=== PATIENT | female | born 2000 | race Caucasian/White ===

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

== ENCOUNTER 2018-06-13 17:06 | Emergency (ER) | payer OTHER, MEDICAID, SELFPAY ==
[2018-06-13 17:07] VITALS: BP 117/75; PULSE 110; RESP 14; TEMP 36.6; O2SAT 98; BMI 38.4
--- NOTE | 2018-06-13 17:32 | RAD_ITS ---
STUDY: X-RAY CHEST REASON FOR EXAM: Female, 18 years old. Cough TECHNIQUE: 2 Views of the chest were obtained COMPARISON: September 26, 2017 chest radiograph FINDINGS: The lungs are clear and expanded. There is no demonstrated pleural abnormality. Normal size heart. Normal mediastinum and dudley. Normal visualized pulmonary arteries. Normal visualized aortic arch and descending thoracic aorta. Normal visualized thoracic spine. Normal visualized ribs, clavicles, and shoulders. There is no demonstrated abnormality of the visualized soft tissue structures of the upper abdomen. RAD/Chest PA and Lateral IMPRESSION: No acute findings Electronically Signed: Otilio Morris, at 17:58 EST Tel , Service support ,
[2018-06-13] MEDS: Naproxen 500 MG Tablet PO (17:40)
--- NOTE | 2018-06-13 18:23 | ED.DCSUM_ITS ---
- ER Visit Summary Date of Service: 06/13/18 Chief Complaint: Cough, nausea and vomiting, sore throat History of Present Illness: The patient is a 18 F with a 3-day history of congestion to the point where she starts gagging. She states she has cough with clear sputum. She does report some posttussive emesis. She has had little fever but nothing that was measured. Her son and boyfriend have been ill with similar symptoms. Past history is significant for hypothyroidism. She denies possibility of pre gnancy. Physical Examination: Blood pressure is 117/75, temperature 97.8, heart rate 110, respiratory rate 14, pulse ox 98% on room air. Patient sitting upright in bed no acute distress. She is nontoxic appearing. Head and neck examination reveals TMs to be clear bilaterally. She does have a small area of erythema in the right canal consistent with a broken capillary. No sign of infection. Posterior pharynx examination reveals 3+ tonsils with no exudate. Uvula is midline. She has bilateral cervical lymphadenopathy. Heart is regular rate and rhythm. Lung sounds are clear. Abdomen is soft and nontender. Test Results: Two-view chest x-ray shows no acute findings. Rapid strep is negative. Emergency Department Course and Treatment: Patient was given naproxen. On repeat evaluation she does feel improved. Test results were discussed with her. Should be a prescription for naproxen. She may take Afrin or Sudafed in addition if needed. Treatment Plan: [] Disposition: Discharge Impression: Viral URI This note was generated with [employer] dictation software. It may contain incorrect words, spelling, and punctuation that were not noted in review of the chart prior to signing ED Disposition - Plan for ED Patient: Referrals: Damian Jackson MD [Primary Care Provider] -
--- NOTE | 2018-06-13 18:23 | ED.DEP ---
ED Disposition - Plan for ED Patient: Disposition: Home or Assisted Living Instructions: ED URI Viral Prescriptions: Naproxen [Naprosyn] 500 mg PO BID PRN PRN #20 tablet PRN Reason: Pain Referrals: Damian Jackson MD [Primary Care Provider] - 5-7 Days
--- NOTE | 2018-06-13 18:33 | ED.RN ---
DISCHARGE INSTRUCTIONS GIVEN TO AND REVIEWED WITH PATIENT, PATIENT DENIES QUESTIONS OR CONCERNS AND VOICES UNDERSTANDING OF DISCHARGE INSTRUCTIONS. PT AMBULATES OUT OF ROOM WITHOUT DIFFICULTY.
== END 2018-06-13 18:33 | disposition home or self-care (01) ==
PROVIDERS: Emergency Provider Emergency Medicine; Family Provider Family Medicine; PCP Family Medicine
DX: J06.9 Acute upper respiratory infection, unspecified (principal); H92.01 Otalgia, right ear; E03.9 Hypothyroidism, unspecified; Z79.899 Other long term (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 therapy; Z72.0 Tobacco use
CPT/HCPCS: 71046; 87880; 99283

== ENCOUNTER → 2018-07-21 13:51 | Outpatient (CLI) | payer OTHER, MEDICAID, SELFPAY ==
[2018-07-21 19:05] LABS: Chlamydia Trachomatis by PCR Negative (Negative); Neisserai gonorrhoeae by PCR Negative (Negative); Probe Check PASS; Sample Adequacy Control PASS; Specimen Processing Control PASS
== END ==
PROVIDERS: Visit Provider Obstetrics & Gynecology
DX: Z11.3 Encounter for screening for infections with a predominantly sexual mode of transmission (principal)
CPT/HCPCS: 87491; 87591

== ENCOUNTER 2018-08-13 19:53 | Emergency (ER) | payer OTHER, MEDICAID, SELFPAY ==
[2018-08-13 19:55] VITALS: BP 140/98; PULSE 159; PULSE 163; RESP 14; RESP 17; TEMP 36.4; O2SAT 96; BMI 36.7
--- NOTE | 2018-08-13 20:10 | EKG12_ITS ---
Test Reason : TACHYCARDIA Blood Pressure : / mmHG Vent. Rate : 140 BPM Atrial Rate : 140 BPM P-R Int : 124 ms QRS Dur : 074 ms QT Int : 278 ms P-R-T Axes : 034 048 -02 degrees QTc Int : [address] & T wave abnormality, consider inferior ischemia Abnormal ECG Confirmed by DAVIDA TOBIN ([id number]), writer editor STEVAN GIBBS ([id number]) on 08/16/2018 4:44:20 PM Referred By: BRENT Confirmed By:DAVIDA TOBIN
[2018-08-13 20:12] VITALS: BP 118/100; PULSE 149; RESP 18; O2SAT 96
[2018-08-13] MEDS: 0.9% Normal Saline 1,000 ML 1000 ML IV ×2 (20:19→22:54)
[2018-08-13] MEDS: Ondansetron 4 MG/2 ML Vial IV (20:19)
[2018-08-13 20:33] LABS: Absolute Lymphocyte Count 1.56 X10^3/ul (0.83-4.51); Basophil# 0.03 X10^3/uL; Basophil% 0.2 % (0-1); Eosinophil# 0.21 X10^3/uL; Eosinophils% 1.2 % (0-5); Hematocrit 43.9 % (37-47); Hemoglobin 14.2 g/dl (12.0-15.0); Lymphocyte # 1.56 X10^3/ul (4.0); Lymphocyte % 8.9 % (19-41); Mean Corp Hgb Conc 32.3 g/gl (32-36); Mean Corpuscular Hgb 22.7 pg (27.0-32.0); Mean Corpuscular Volume 70.1 fL (81-99); Mean Platelet Vol. 9.3 fl (6.2-12.0); Monocyte# 0.78 X10^3/uL; Monocyte% 4.4 % (0-10); Neutrophil # 14.96 X10^3/uL (2.7-7.7); Neutrophil % 85.1 % (47-70); POSITIVE COUNT NO; POSITIVE DIFFERENTIAL NO; POSITIVE MORPHOLOGY NO; Platelet Count 312 K/mm3 (150-450); RBC Distribution Width CV 15.3 % (11.6-14.6); RBC Distribution Width SD 38.9 fl (35.1-43.9); Red Blood Count 6.26 M/mm3 (4.2-5.4); White Blood Count 17.6 K/mm3 (4.4-11.0)
[2018-08-13 20:59] LABS: ALB/GLOB Ratio 0.9 RATIO (0.9-2.4); AST(SGOT) 27 U/L (15-37); Alanine Aminotransfer ALT/SGPT 30 U/L (13-56); Albumin, Serum 4.3 g/dL (3.2-5.0); Alkaline Phosphatase 107 U/L (45-117); Anion Gap 9 (5-15); BUN 13 mg/dL (7-18); BUN/Creat Ratio 15.3 RATIO (10-20); Calcium,Total 8.9 mg/dL (8.5-10.1); Chloride 108 mmol/L (98-107); Creatinine, Serum 0.85 mg/dL (0.55-1.02); EST Glomerular Filtration Rate 91 mL/min (>60); Est Glom Filt Rate - Afr Amer 110 mL/min (>60); Estimated Creatinine Clearance 87.33 ml/min; Globulin 4.6 g/dL (2.2-4.2); Glucose 93 mg/dL (74-106); Lipase 107 U/L (73-393); Potassium 3.6 mmol/L (3.5-5.1); Protein, Total 8.9 g/dL (6.4-8.2); Sodium Level 140 mmol/L (136-145)
[2018-08-13 21:00] VITALS: BP 123/72; PULSE 116; RESP 28; O2SAT 98
[2018-08-13 21:06] LABS: Bacteria 0 SEEN /hpf (None Seen)
[2018-08-13 21:08] LABS: Pregnancy, Serum, hCG Quali. NEGATIVE Negative (0-9 Nonpreg)
[2018-08-13 21:12] LABS: Color, Urine Yellow (Yellow); Glucose, Dipstick Normal (Normal); Ketone-Dipstick 5 mg/dl (Negative); Leukocyte Esterase-Dipstick 25 /ul (Negative); Nitrite-Dipstick Negative (Negative); Occult Blood-Urine Negative /ul (Negative); Protein-Dipstick 100 mg/dl (Negative); Specific Gravity, Urine 1.015 (1.002-1.030); Urine Clarity Sl. Cloudy (Clear); Urine Urobilinogen 1 mg/dl (Normal)
[2018-08-13 21:18] LABS: Urine Bilirubin Dipstick 3 mg/dL (Negative)
[2018-08-13 21:25] LABS: Mucous, Urine 3+ /hpf (<or=2+); Squamous Epithelial Cells - UA 0-5 SEEN /hpf (5-10)
[2018-08-13 21:26] LABS: White Blood Cells 0-5 SEEN /hpf (0-5)
[2018-08-13 21:27] LABS: Yeast-Urine RARE /hpf (None Seen)
[2018-08-13 21:28] LABS: Red Blood Cells-Urine 0-5 SEEN /hpf (0-5)
--- NOTE | 2018-08-13 21:39 | ED.VISSUMM ---
- ER Visit Summary Date of Service: 08/13/18 Chief Complaint: Nausea and vomiting and diarrhea History of Present Illness: The patient is a 18 F who presents with nausea, vomiting, diarrhea that began today. Patient also admits to diffuse abdominal pain. Patient describes her pain is sharp and cramping. Patient states nothing makes it better or worse. Patient also admits to some paresthesias in her hands. Patient states this comes and goes. Patient denies any hematemesis or coffee-ground emesis. Patient denies any melena or hematochezia. She admits to subjective chills but denies any fevers. Physical Examination: Vital signs are stable except for a tachycardia of 163. Patient is afebrile. Patient is in no acute distress. Oral mucosa is pink and moist. Neck is supple. Trachea is midline. There is no JVD noted. Heart was regular and tachycardic. Lungs are clear and equal bilateral. Abdomen is soft. Bowel sounds are normal. There is mild diffuse tenderness. There is no rebound or guarding noted. Cranial nerves II through XII are intact. There are no focal motor or sensory deficits noted. Test Results: CBC showed a mild leukocytosis of 17.6. Comprehensive metabolic profile and troponin were obtained and were essentially within normal limits. Urinalysis does not show any evidence of urinary tract infection. PA and lateral chest x-ray was obtained. There is no acute cardiopulmonary process noted. Due to the patient's persistent tachycardia and tachypnea, CTA of the chest was obtained. There is no evidence of PE. Emergency Department Course and Treatment: Patient was given IV fluids and Zofran here. Patient's heart rate improved to 116. Patient's heart rate increased to 125. Patient's respiratory rate increased to 28. Patient was given a repeat bolus of normal saline. Patient was given a dose of Phenergan. Patient's heart rate improved to 113 after this. Patient's respiratory rate improved to 14 after this. Patient felt better on reevaluation. Patient was instructed to drink small amounts of fluids more frequently. Patient was given a prescription for Zofran. Patient was instructed to follow-up with her primary care physician in 5-7 days. Patient understood and was agreeable with the plan. All questions were answered. Disposition: Discharge home Impression: 1. Nausea and vomiting 2. Tachycardia This note was generated with [employer] software. It may contain incorrect words, spelling, and punctuation that were not noted in review of the chart prior to signing ED Disposition - Plan for ED Patient: Disposition: Home or Assisted Living Diagnosis: Nausea and vomiting, Tachycardia Instructions: ED Nausea Vomiting Prescriptions: Ondansetron [Zofran Odt] 4 mg PO Q8H PRN PRN #10 tab PRN Reason: Nausea Referrals: Damian Jackson MD [Primary Care Provider] - 5-7 Days
--- NOTE | 2018-08-13 21:43 | ED.DCSUM_ITS ---
- ER Visit Summary Date of Service: 08/13/18 Chief Complaint: Nausea and vomiting and diarrhea History of Present Illness: The patient is a 18 F who presents with nausea, vomiting, diarrhea that began today. Patient also admits to diffuse abdominal pain. Patient describes her pain is sharp and cramping. Patient states nothing makes it better or worse. Patient also admits to some paresthesias in her hands. Patient states this comes and goes. Patient denies any hematemesis or coffee-ground emesis. Patient denies any melena or hematochezia. She admits to subjective chills but denies any fevers. Physical Examination: Vital signs are stable except for a tachycardia of 163. Patient is afebrile. Patient is in no acute distress. Oral mucosa is pink and moist. Neck is supple. Trachea is midline. There is no JVD noted. Heart was regular and tachycardic. Lungs are clear and equal bilateral. Abdomen is soft. Bowel sounds are normal. There is mild diffuse tenderness. There is no rebound or guarding noted. Cranial nerves II through XII are intact. There are no focal motor or sensory deficits noted. Test Results: CBC showed a mild leukocytosis of 17.6. Comprehensive metabolic profile and troponin were obtained and were essentially within normal limits. Urinalysis does not show any evidence of urinary tract infection. PA and lateral chest x-ray was obtained. There is no acute cardiopulmonary process noted. Due to the patient's persistent tachycardia and tachypnea, CTA of the chest was obtained. There is no evidence of PE. Emergency Department Course and Treatment: Patient was given IV fluids and Zofran here. Patient's heart rate improved to 116. Patient's heart rate increased to 125. Patient's respiratory rate increased to 28. Patient was given a repeat bolus of normal saline. Patient was given a dose of Phenergan. Patient's heart rate improved to 113 after this. Patient's respiratory rate improved to 14 after this. Patient felt better on reevaluation. Patient was i nstructed to drink small amounts of fluids more frequently. Patient was given a prescription for Zofran. Patient was instructed to follow-up with her primary care physician in 5-7 days. Patient understood and was agreeable with the plan. All questions were answered. Disposition: Discharge home Impression: 1. Nausea and vomiting 2. Tachycardia This note was generated with Dragon dictation software. It may contain incorrect words, spelling, and punctuation that were not noted in review of the chart prior to signing ED Disposition - Plan for ED Patient: Disposition: Home or Assisted Living Diagnosis: Nausea and vomiting, Tachycardia Instructions: ED Nausea Vomiting Prescriptions: Ondansetron [Zofran Odt] 4 mg PO Q8H PRN PRN #10 tab PRN Reason: Nausea Referrals: Damian aJckson MD [Primary Care Provider] - 5-7 Days
--- NOTE | 2018-08-13 21:55 | RAD_ITS ---
STUDY: X-RAY CHEST REASON FOR EXAM: Female, 18 years old. Chest pain TECHNIQUE: PA and lateral views of the chest. COMPARISON: Prior study of June 13, 2018 FINDINGS: sports physician leads are present. The lungs are clear and expanded. There is no demonstrated pleural abnormality. Normal size heart. Normal mediastinum and dudley. Normal visualized pulmonary arteries. Normal visualized aortic arch and descending thoracic aorta. Normal visualized thoracic spine. Normal visualized ribs, clavicles, and shoulders. There is no demonstrated abnormality of the visualized soft tissue structures of the upper abdomen. RAD/Chest PA and Lateral IMPRESSION: Normal x-ray examination of the chest. Electronically Signed: Salvador Garcia MD at 22:58 EDT , Service support ,
[2018-08-13 22:00] VITALS: BP 119/70; PULSE 125; RESP 28; O2SAT 96
[2018-08-13] MEDS: proMETHazine 25 MG/ML Syringe 6.25 MG IV (22:54)
--- NOTE | 2018-08-13 23:04 | CT_ITS ---
STUDY: CTA CHEST REASON FOR EXAM: Female, 18 years old. Nausea, vomiting, diarrhea today, numbness in hands x2 weeks. RADIATION DOSAGE (If Supplied By Facility): CTDIvol = ( 13.86 ) mGy, DLP = ( 602.31 ) mGycm TECHNIQUE: The examination was performed with the intravenous administration of 100 IV Isovue 370. Post-processing of the angiographic images was performed, with multiplanar reformation and 3D reconstruction. Individualized dose optimization techniques were used for this CT. COMPARISON: Chest x-ray 08/13/2018. CT a chest 04/01/2017 FINDINGS: Normal enhancement of the main pulmonary artery and right and left pulmonary arteries. Normal enhancement of the bilateral peripheral pulmonary arteries. There is no demonstrated pulmonary embolism. Normal thoracic aorta and visualized great vessels. There is no demonstrated aortic dissection. Normal heart and pericardium. Normal mediastinum. There is residual thymic tissue without mass. Normal hilar regions. Normal visualized trachea and bronchi. The lungs are well expanded. Normal pulmonary parenchyma. Normal pleura. Normal chest wall structures. Normal osseous structures. Normal visualized upper abdomen. CT/CTA Chest W/WO Contrast IMPRESSION: Normal CTA chest examination, without a demonstrated pulmonary embolism or arterial dissection. There is no significant interval change. Electronically Signed: Reshma Olea MD at 0:14 EDT , Service support ,
[2018-08-13 23:54] VITALS: BP 116/78; PULSE 113; RESP 14; O2SAT 98
[2018-08-14 00:37] VITALS: BP 123/76; PULSE 143; RESP 16; O2SAT 100
== END 2018-08-14 00:39 | disposition home or self-care (01) ==
PROVIDERS: Emergency Provider Emergency Medicine; Family Provider Family Medicine; PCP Family Medicine
DX: R11.2 Nausea with vomiting, unspecified (principal); R00.0 Tachycardia, unspecified; R51 Headache; M54.9 Dorsalgia, unspecified; R19.7 Diarrhea, unspecified; R10.9 Unspecified abdominal pain; K21.9 Gastro-esophageal reflux disease without esophagitis; E03.9 Hypothyroidism, unspecified; F17.210 Nicotine dependence, cigarettes, uncomplicated
CPT/HCPCS: 71046; 71275; 80053; 81001; 83690; 84484; 84703; 85025; 93005; 96361; 96374; 96375; 99283; J7030; Q9967; A4216; J2405

== ENCOUNTER 2019-11-15 13:20 | Emergency (ER) | payer OTHER, MEDICAID, SELFPAY ==
[2019-11-15 13:23] VITALS: BP 140/87; PULSE 115; RESP 16; TEMP 36.9; O2SAT 96; BMI 38.5
--- NOTE | 2019-11-15 13:23 | RAD_ITS ---
STUDY: X-RAY CHEST REASON FOR EXAM: Female, 19 years old. Pt arrives with neck pain for months and new onset chest pain, sob, dizziness, headache, and weakness since sun day. TECHNIQUE: Single AP portable view of the chest. COMPARISON: Comparison is made with prior study dated August 13, 2018. FINDINGS: The lungs are clear and expanded. There is no demonstrated pleural abnormality. Normal size heart. Normal mediastinum and dudley. Normal visualized pulmonary arteries. Normal visualized aortic arch and descending thoracic aorta. Normal visualized thoracic spine. Normal visualized ribs, clavicles, and shoulders. There is no demonstrated abnormality of the visualized soft tissue structures of the upper abdomen. RAD/Chest 1 View (Portable) IMPRESSION: Normal x-ray examination of the chest. Electronically Signed: Shaun Lenz, at 14:33 EDT , Service support ,
[2019-11-15 16:00] VITALS: O2SAT 96
[2019-11-15 16:08] VITALS: BP 135/85; PULSE 88; RESP 16; TEMP 37.2; O2SAT 98
--- NOTE | 2019-11-15 16:32 | ED.DCSUM_ITS ---
- ER Visit Summary Date of Service: 11/15/19 Chief Complaint: Cough and chills History of Present Illness: The patient is a 19 F with cough and chills that is been getting worse over the past 3 days. Patient states it is gradually gotten worse. Patient states she has some aching in her head and neck. Patient admits to some shortness of breath. Patient states she is coughing up some sputum but does not look at it. Patient admits to some pain in her chest is worse with coughing. Patient also admits to a mild sore throat from coughing. Patient is a smoker. Patient denies any sick contacts. Patient states she does wear her mask at work. Patient states there is also a plexiglass barrier where she works. Patient denies any loss of taste or smell. Physical Examination: Vital signs are stable. Patient is afebrile. Patient is in no acute distress. Oral mucosa is pink and moist. Oropharynx is clear. Neck is supple. Trachea is midline. There is no JVD. Heart was regular rate and rhythm. Lungs are clear and equal bilaterally. Abdomen is soft. Bowel sounds are normal. There is no tenderness. Cranial nerves II through XII are intact. There are no focal motor or sensory deficits noted. Extremities are intact. There is no calf tenderness or edema. Test Results: Chest x-ray was obtained. There is no acute cardiopulmonary process. This was interpreted by the radiologist and myself. Emergency Department Course and Treatment: Patient was advised that this is most likely a viral upper respiratory infection. Patient was given a note for work for today. Patient was instructed to continue wearing her mask and COVID precautions. Patient was instructed to follow-up with her primary care physician in 5 to 7 days. Patient understood and was agreeable with the plan. All questions were answered. Disposition: Discharge home Impression: Upper respiratory infection This note was generated with [employer] dictation software. It may contain incorrect words, spelling, and punctuation that were not noted in review of the chart prior to signing ED Disposition - Plan for ED Patient: Disposition: Home or Assisted Living Diagnosis: Viral upper respiratory tract infection with cough Instructions: ED URI Viral Referrals: Damian Jackson MD [Primary Care Provider] - 5-7 Days
== END 2019-11-15 16:55 | disposition home or self-care (01) ==
PROVIDERS: Emergency Provider Emergency Medicine; PCP Family Medicine
DX: J06.9 Acute upper respiratory infection, unspecified (principal); E66.9 Obesity, unspecified; E03.9 Hypothyroidism, unspecified; Z79.899 Other long term (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 therapy; F17.200 Nicotine dependence, unspecified, uncomplicated
CPT/HCPCS: 71045; 94760; 99283; A4216

== ENCOUNTER 2019-11-26 22:57 | Emergency (ER) | payer OTHER, MEDICAID, SELFPAY ==
--- NOTE | 2019-11-26 00:15 | RAD_ITS ---
STUDY: X-RAY CHEST REASON FOR EXAM: Female, 19 years old. Patient felt sick for 1 week. Cough started 2 days ago. sob. TECHNIQUE: PA and lateral views of the chest. COMPARISON: 11-15-2019 FINDINGS: The lungs are clear and expanded. There is no demonstrated pleural abnormality. Normal size heart. Normal mediastinum and dudley. Normal visualized pulmonary arteries. Normal visualized aortic arch and descending thoracic aorta. Normal visualized thoracic spine. Normal visualized ribs, clavicles, and shoulders. There is no demonstrated abnormality of the visualized soft tissue structures of the upper abdomen. RAD/Chest PA and Lateral IMPRESSION: Normal x-ray examination of the chest. Electronically Signed: Parag Molina MD at 0:41 EDT Tel , Service support ,
[2019-11-26 22:58] VITALS: BP 135/85; PULSE 132; RESP 20; TEMP 36.3; O2SAT 98; BMI 38.4
[2019-11-26] MEDS: Acetaminophen 500 MG Tablet 1000 MG PO (23:45)
[2019-11-26] MEDS: Naproxen 500 MG Tablet PO (23:46)
[2019-11-27 00:40] LABS: Probe Check PASS; Specimen Processing Control PASS
--- NOTE | 2019-11-27 01:09 | ED.VISSUMM ---
- ER Visit Summary Date of Service: 11/27/19 Chief Complaint: Cough History of Present Illness: The patient is a [address] Juan Clifton. She reports she has a cough began 2 days ago. Is productive yellow sputum without blood. 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 Patient denies any fever or chills. She reports she has nasal congestion and sore throat is 10 on 10 severity. She also has chest pain is 10 out of 10 in severity. She complains of mild shortness of breath. She states she has a headache at 8 out of 10 in severity. She is a history of similar headaches. She denies any myalgias. Physical Examination: Vitals: Stable. Afebrile. General: Well-nourished and well-developed. Head: Normocephalic atraumatic. Neck: Supple, no lymphadenopathy. No JVD. Nontender. Cardiovascular: Regular rate and rhythm. No murmurs. Respiratory: No respiratory distress. Clear to auscultation bilaterally. Abdominal: Soft, nontender, nondistended, normal bowel sounds. No guarding, rebound, or peritoneal signs. Back: Nontender. Extremities: Nontender, no edema. Skin: Normal color, no rash. Neurologic: Alert and oriented ?3. Cranial nerves II through XII are intact. Normal strength and sensation. Psych: Normal affect. Test Results: COVID is negative. Clinical Impression(s) from Imaging Studies Chest X-Ray 11/26/19 00:15 IMPRESSION: Normal x-ray examination of the chest. Electronically Signed: Parag Molina MD at 0:41 EDT Tel , Service support , Emergency Department Course and Treatment: Patient refused an IV. She was treated Tylenol and naproxen. She is resting comfortably. Treatment Plan: Patient will be discharged with symptomatic care. Push fluids. Use Tylenol and/or ibuprofen for fever and pain. Follow-up with her primary care physician in 10 to 14 days if not improving. Return to the emergency department for any worsening symptoms. Disposition: To home in improved and stable condition. Impression: 1 1. URI. This note was generated with [employer] dictation software. It may contain incorrect words, spelling, and punctuation that were not noted in review of the chart prior to signing ED Disposition - Plan for ED Patient: Disposition: Home or Assisted Living Instructions: ED Upper Resp Infec No Abx Tx Referrals: Damian Jackson MD [Primary Care Provider] - 10-14 Days if not better
[2019-11-27 01:38] VITALS: BP 116/73; PULSE 106; RESP 18; O2SAT 98
== END 2019-11-27 01:40 | disposition home or self-care (01) ==
PROVIDERS: Emergency Provider Emergency Medicine; PCP Family Medicine
DX: J06.9 Acute upper respiratory infection, unspecified (principal); K21.9 Gastro-esophageal reflux disease without esophagitis; E03.9 Hypothyroidism, unspecified; Z79.899 Other long term (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 therapy; F17.200 Nicotine dependence, unspecified, uncomplicated
CPT/HCPCS: 71046; 87635; 94799; 99283; U0003

== ENCOUNTER → 2019-12-22 | Outpatient (CLI) | payer OTHER, MEDICAID, SELFPAY ==
[2019-11-26 22:58] VITALS: BMI 38.4
== END | disposition home or self-care (01) ==
LOC: LABSPEC 13:09
PROVIDERS: PCP Family Medicine; Visit Provider Obstetrics & Gynecology
DX: Z12.4 Encounter for screening for malignant neoplasm of cervix (principal)
CPT/HCPCS: 88175; G0145

== ENCOUNTER 2020-07-30 16:22 | Emergency (ER) | payer OTHER, MEDICAID, SELFPAY ==
[2020-07-30 16:22] VITALS: BP 143/83; PULSE 125; RESP 16; TEMP 36.6; O2SAT 98; BMI 40.0
--- NOTE | 2020-07-30 16:58 | ED.RN ---
PT STATES SHE IS LEAVING, DECLINES WAITING TO BE SEEN
== END 2020-07-30 18:47 | disposition home or self-care (01) ==
LOC: ED 17:22
PROVIDERS: Emergency Provider Emergency Medicine; PCP Family Medicine
DX: Z53.21 Procedure and treatment not carried out due to patient leaving prior to being seen by health care provider (principal)

== ENCOUNTER 2022-03-02 21:14 | Emergency (ER) | payer OTHER, MEDICAID, SELFPAY ==
[2022-03-02 21:14] VITALS: BP 134/104; PULSE 113; RESP 16; TEMP 36.3; O2SAT 97; BMI 40.7
--- NOTE | 2022-03-02 21:51 | EDS_ITS ---
HPI History of Present Illness Chief Complaint: Foreign Body Narrative Narrative: Patient presents with 2 lip rings that were just placed that she is unable to remove due to significant swelling of her lower lip. No fevers or chills. [facility] Medical History (Updated 03/02/22 @ 21:[address] Geoff Pappas MD) GERD (gastroesophageal reflux disease) Hypothyroidism IBS (irritable bowel syndrome) Home Medications levothyroxine 25 mcg tablet 50 mcg PO DAILY thyroid 01/11/14 [History Last Taken 09/26/17 08:00 25 cg] omeprazole 40 mg capsule,delayed release 40 mg PO DAILY 08/13/18 [History Last Taken Unknown] cephalexin 500 mg capsule 500 mg PO Q6 #14 caps 03/02/22 [Rx Last Taken Unknown] fluoxetine 20 mg capsule 20 mg PO DAILY 03/02/22 [History Last Taken Unknown] linaclotide 145 mcg capsule (Linzess) 145 mcg PO DAILY 03/02/22 [History Last Taken Unknown] Allergy/AdvReac Type Severity Reaction Status Date / Time No Known Allergies Allergy Verified 03/02/22 21:16 Social History Smoking Status: Current every day smoker tobacco type: smokeless tobacco ROS ROS ED ROS Narrative Past medical history: None Medications: Reviewed Social history: Noncontributory Review of systems: All systems negative except as indicated General: No fever Eyes: No visual changes ENT: Lip foreign body as in HPI Neck: No neck pain Cardiovascular: No palpitations Respiratory: No shortness of breath or cough Gastrointestinal: No nausea or vomiting Skin: No rash Neurological: No facial droop Hematologic: No easy bleeding or easy bruising EXAM Physical Exam Narrative Exam Narrative: Physical exam General: Well nourished, Well developed, No Acute Distress Head: Normocephalic, Atraumatic Eyes: Conjunctiva not pale ENT: Lower lip shows bilateral earrings I can only see the facial side but not the intraoral studs. Neck: Supple, Nontender, No lymphadenopathy Cardiovascular: Regular rate, Regular rhythm Respiratory: No distress, CTA bilaterally Skin: Normal color, No rash Neurological: No facial droop Const Vital Signs: 03/02/22 21:14 Temperature 97.3 F L Temperature Source Temporal Pulse Rate 113 H Respiratory Rate 16 Blood Pressure 134/104 H Blood Pressure Mean 114 Pulse Ox 97 Oxygen Delivery Method Room Air [facility] Treatment and Re-Evaluation Narrative: Procedure note: Verbal consent obtained I did not have to use any anesthesia, I used hemostats to push the lip ring through on the intraoral side, I then used another hemostat for counterclockwise turning and was able to remove both piercings that way. Patient tolerated procedure well ED course: Rings were removed as above, patient will be placed on antibiotics for few Discharge Plan Triage Chief Complaint: Foreign Body ED Provider: Geoff Pappas Dx/Rx/DC Orders Clinical Impression: Foreign body in lip, Infected pierced lip Instructions: ED Wound Check (Infection) Prescriptions: New cephalexin 500 mg capsule 500 mg PO Q6 Qty: 14 0RF No Action levothyroxine 25 MCG tablet 50 mcg PO DAILY Label Comments: low thyroid omeprazole 40 MG capsule,delayed release(DR/EC) 40 mg PO DAILY fluoxetine 20 mg capsule 20 mg PO DAILY Linzess 145 mcg capsule 145 mcg PO DAILY Primary Care Provider: Damian Jackson Referrals: Damian Jackson MD [Primary Care Provider] - 3-5 Days Disposition Disposition: Home, Self Care
[2022-03-02] MEDS: Cephalexin 250 MG Capsule 500 MG PO (22:06)
[2022-03-02 22:09] VITALS: PULSE 113; RESP 15; O2SAT 97
== END 2022-03-02 22:09 | disposition home or self-care (01) ==
PROVIDERS: Emergency Provider Emergency Medicine; PCP Family Medicine; Visit Provider Emergency Medicine
DX: S00.551A Superficial foreign body of lip, initial encounter (principal); F17.220 Nicotine dependence, chewing tobacco, uncomplicated; X58.XXXA Exposure to other specified factors, initial encounter
CPT/HCPCS: 99283

== ENCOUNTER 2022-06-30 08:53 | Emergency (ER) | payer OTHER, MEDICAID, SELFPAY ==
[2022-06-30 08:53] VITALS: BP 136/84; PULSE 94; RESP 18; TEMP 36.6; O2SAT 97; BMI 42.6
--- NOTE | 2022-06-30 09:22 | CT_ITS ---
STUDY: CT ABDOMEN AND PELVIS WITH CONTRAST REASON FOR EXAM: Female, 22 years old. One-week history of abdominal pain. History of colitis. RADIATION DOSAGE (If Supplied By Facility): CTDIvol = ( 16.71 ) mGy, DLP = ( 1268.35 ) mGycm TECHNIQUE: Transaxial images were obtained from the dome of the diaphragm to the symphysis pubis without oral contrast. IV 100mL Isovue-370 was administered. Sagittal and coronal images were reconstructed. Individualized dose optimization techniques were used for this CT. COMPARISON: None. FINDINGS: The visualized lung bases are unremarkable. The visualized portions of the heart are within normal limits. Normal liver. Normal gallbladder and extrahepatic biliary system. Normal spleen. Normal pancreas. Normal bilateral adrenal glands. Normal right kidney. Normal left kidney. Normal visualized stomach. Normal small intestine. Normal colon. The appendix is visualized and appears normal. Small benign-appearing lymph nodes are seen in the mesenteric fat in the right lower quadrant suggest mesenteric adenitis. Multiple tiny lymph nodes are also seen within the left of the mesentery. Normal abdominal aorta. Normal inferior vena cava. Normal retroperitoneum. Normal urinary bladder. Follicles are seen within the ovaries bilaterally. Normal abdominal wall. Normal osseous structures. CT/Abdomen/Pelvis W IV Cont ONLY IMPRESSION: Multiple small benign-appearing lymph nodes are seen in the mesenteric fat in the right lower quadrant as well as in the root of the mesentery. Electronically Signed: Shaun Lenz MD at 10:36 [facility] ,
--- NOTE | 2022-06-30 09:23 | ED.VIS.GI ---
HPI HPI - GI History of Present Illness Chief Complaint: Abd Pain Detail of Chief Complaint: Abdominal pain for approximately 1 week. Informant: patient Abdominal Pain/Flank Pain Onset: Days Context: Gradual Onset Timing: Continuous Location: Diffuse Current Severity: Mild Maximum Severity: Mild Worsened by: Nothing Relieved by: Nothing Nausea/Vomiting/Emesis GI Symptom: Positive for Nausea; Negative for Vomiting Onset: Days Severity: Mild Diarrhea/Melena/Hematochezia GI Symptom: Positive for Diarrhea Onset: Days Stool Quality: Positive for Loose Severity: Mild Associated Symptoms Associated Symptoms: Negative for Dysuria, Frequency, Hematuria or Urgency Narrative Narrative: 22-year-old female history of hypothyroidism. Prior colitis. States she had abdominal pain with loose stools for approximately a week. Describes it as cramping. Associated nausea but no vomiting. No fever or chills. No dysuria. No vaginal bleeding or discharge. She is on Depo-Provera states she has not had a menstrual period for 5 years. Denies any prior abdominal or pelvic surgery. She had a prior colonoscopy that was unremarkable. States she was treated for colitis about 1 year ago at another facility. Prior similar symptoms: Yes Recent Illness/Hospitalization: No PFSH PFS Medical History Colitis GERD (gastroesophageal reflux disease) Hypothyroidism IBS (irritable bowel syndrome) Home Medications levothyroxine 25 mcg tablet 50 mcg PO DAILY thyroid 01/11/14 [History Last Taken 09/26/17 08:00 25 cg] cephalexin 500 mg capsule 500 mg PO Q6 #14 caps 03/02/22 [Rx Last Taken Unknown] fluoxetine 20 mg capsule 40 mg PO DAILY 03/02/22 [History Last Taken Unknown] linaclotide 145 mcg capsule (Linzess) 145 mcg PO DAILY 03/02/22 [History Last Taken Unknown] buspirone 15 mg tablet 15 mg PO TID 06/30/22 [History Last Taken Unknown] esomeprazole magnesium 40 mg capsule,delayed release 40 mg PO DAILY 06/30/22 [History Last Taken Unknown] tizanidine 4 mg tablet 4 mg PO Q4H PRN PRN Headache 06/30/22 [History Last Taken Unknown] Allergy/AdvReac Type Severity Reaction Status Date / Time No Known Allergies Allergy Verified 06/30/22 08:53 Social History Smoking Status: Current every day smoker tobacco type: e-cigarettes ROS ROS ED ROS Narrative Crampy abdominal pain. Loose stools. Nausea. Review of Systems ROS Unobtainable: Denies due to encephalopathy Constitutional Constitutional ED: Denies chills or fever(s) ENT ENT ED: Denies ear pain Cardiovascular Cardiovascular: Denies chest pain Respiratory/Chest Respiratory/Chest: Denies cough or dyspnea Gastrointestinal Gastrointestinal: Reports abdominal pain, diarrhea and nausea; Denies constipation, melena or vomiting Genitourinary Genitourinary ED: Denies dysuria or hematuria Musculoskeletal Musculoskeletal: Denies arthralgias Integumentary Denies abscess Neurologic Neurologic: Denies headache(s) Psychiatric Psychiatric: Denies anxiety Endocrine Endocrinology: Denies polydipsia Hematologic/Lymphatic Hematologic/Lymphatic: Denies easy bleeding Allergic/Immunologic Allergic/Immunologic ED: Denies mouth swelling or tongue swelling EXAM Physical Exam Narrative Exam Narrative: 23-year-old female no acute distress. Vital signs stable afebrile. H EENT exam unremarkable. Lungs clear. Heart regular rhythm rate about 90 no murmur. Abdomen soft nondistended normal bowel sounds no peritoneal signs. Minimally tender. Very benign abdomen. No localizing right upper or right lower quadrant pain. No hernia or mass. No distention. Moving all 4 extremities. Neurologically awake and alert with no focal motor deficits. Const Vital Signs: 06/30/22 08:53 Temperature 97.8 F Temperature Source Temporal Pulse Rate 94 Respiratory Rate 18 Blood Pressure 136/84 H Blood Pressure Mean 101 Pulse Ox 97 Oxygen Delivery Method Room Air Positive well nourished, well developed and obese; Negative for cachectic, contractures or unkempt General Appearance ED: well developed and NAD; Negative for unkempt, cachectic, contractures or pallor Nutritional Appearance: obese; Negative for cachectic HEENT Reports moist mucous membranes normocephalic and atraumatic; Negative for trauma or tenderness Eyes PERRL and EOMs intact bilaterally General Eye ED: Negative for pale conjunctiva, scleral icterus or other Neck no lymphadenopathy, supple and no JVD General: Negative for tenderness Carotids: Negative for other Lymph Lymphatic: Negative for other Resp normal respiratory effort and clear to auscultation bilaterally Effort and Inspection: Negative for respiratory distress Auscultation: Negative for rales, rhonchi or wheezes Cardio regular rate, regular rhythm, S1 normal heart sound, S2 normal heart sound and no murmurs Rate: Negative for bradycardia or tachycardic Rhythm: Negative for abnormal rhythm GI non-distended and no masses; Negative for non-tender Inspection: Negative for abdominal distention Auscultation: normoactive bowel sounds Palpation: soft and tender; Negative for guarding, rigid, hepatomegaly, splenomegaly, hernia, mass, pulsatile mass or rebound tenderness present Back/Spine no CVA tenderness General Back: Negative for CVA tenderness Cervical Spine: Negative for cervical spine tenderness Thoracic Spine / Upper Back: Negative for thoracic spinal tenderness Lumbar Spine / Lower Back: Negative for lumbar spinal tenderness Extremity full ROM General Extremety ED: Negative for edema or tenderness General Extremity: Negative for edema Neuro CN's II-XII intact bilaterally and moves all extremities Sensorium / Orientation: alert, oriented to person, oriented to place and oriented to time; Negative for orientation impaired, confused, lethargic or stuporous Motor Exam: strength 5/5 throughout Psych mental status grossly normal and thought process normal Appearance: Negative for unkempt Attitude: No agitated Mood & Affect: Negative for depressed, anxious or tearful Skin no wounds General Skin Exam: Negative for jaundice or pallor Lesions: no lesions Rashes: no rashes Trauma: Negative for abrasion Nails: Negative for discolored MDM MDM MDM Narrative Medical decision making narrative: 22-year-old female with abdominal pain. Clinically does not appear to be appendicitis or cholecystitis. Also no signs of bowel obstruction. Prior history of colitis. Labs and CAT scan being obtained. Do not think she is obviously we will check that. She has no urinary symptoms. There is no signs of acute surgical abdomen. Repeat exam patient is doing well at 11 AM. Abdomen benign. No change in her exam. I discussed all test results with her she will be discharged home. Tylenol and/or Motrin for pain. Follow-up if not improving Lab Data Attestation: I reviewed the patient's lab results. Lab results narrative: CBC normal. White count 9.4. H&H 13.9 and 42. Electrolytes show a gap of 7 normal BUN and creatinine. Liver enzymes are unremarkable. Lipase 109. Serum test negative. Urinalysis is negative. No white cells, red cells or nitrites. 1+ bacteria. CAT scan shows lymphatic mesenteric adenitis. No other acute abnormalities. No colitis. No appendicitis. No bowel obstruction. Read by the radiologist and reviewed by me. Labs: Laboratory Results - last 24 hr 06/30/22 06/30/22 06/30/22 09:14 09:14 09:14 WBC 9.4 RBC 5.18 Hgb 13.9 Hct 42.3 MCV 81.7 MCH 26.8 L MCHC 32.9 RDW Std Deviation 38.2 RDW Coeff of Nawaf 12.9 Plt Count 285 MPV 9.3 Immature Gran % (Auto) 0.500 Neut % (Auto) 69.8 Lymph % (Auto) 21.9 [place] % (Auto) 5.6 Eos % (Auto) 1.6 Baso % (Auto) 0.6 Absolute Neuts (auto) 6.6 Absolute Lymphs (auto) 2.06 Nucleated RBC % 0 Sodium 141 Potassium 3.7 Chloride 111 H Carbon Dioxide 23.0 Anion Gap 7 BUN 10 Creatinine 0.68 Estim Creat Clear Calc 105.53 Est GFR (MDRD) Af Amer 137 Est GFR (MDRD) Non-Af 113 BUN/Creatinine Ratio 14.7 Glucose 99 Calcium 9.0 Total Bilirubin 0.40 AST 14 L ALT 26 Alkaline Phosphatase 67 Total Protein 7.3 Albumin 3.7 Globulin 3.6 Albumin/Globulin Ratio 1.0 Lipase 109 Serum , Qual NEGATIVE Urine Color Urine Clarity Urine pH Ur Specific [place] Urine Protein Urine Glucose (UA) Urine Ketones Urine Occult Blood Urine Nitrite Urine Bilirubin Urine Urobilinogen Ur Leukocyte Esterase Urine RBC Urine WBC Ur Squamous Epith Cells Urine Bacteria Urine Mucus 06/30/22 09:57 WBC RBC Hgb Hct MCV MCH MCHC RDW Std Deviation RDW Coeff of [place] Plt Count MPV Immature Gran % (Auto) Neut % (Auto) Lymph % (Auto) [place] % (Auto) Eos % (Auto) Baso % (Auto) Absolute Neuts (auto) Absolute Lymphs (auto) Nucleated RBC % Sodium Potassium Chloride Carbon Dioxide Anion Gap BUN Creatinine Estim Creat Clear Calc Est GFR (MDRD) Af Amer Est GFR (MDRD) Non-Af BUN/Creatinine Ratio Glucose Calcium Total Bilirubin AST ALT Alkaline Phosphatase Total Protein Albumin Globulin Albumin/Globulin Ratio Lipase Serum , Qual Urine Color Yellow Urine Clarity Sl. Cloudy Urine pH 6.5 Ur Specific [place] 1.015 Urine Protein 30 H Urine Glucose (UA) Normal Urine Ketones Negative Urine Occult Blood 25 H Urine Nitrite Negative Urine Bilirubin Negative Urine Urobilinogen Normal Ur Leukocyte Esterase Negative Urine RBC 0-5 SEEN Urine WBC 0 SEEN Ur Squamous Epith Cells 5-10 SEEN Urine Bacteria 1+ Urine Mucus 0 SEEN Radiography Diagnostic Testing: Clinical Impression(s) from Imaging Studies Abdomen/Pelvis CT 06/30/22 09:22 IMPRESSION: Multiple small benign-appearing lymph nodes are seen in the mesenteric fat in the right lower quadrant as well as in the root of the mesentery. Electronically Signed: Shaun Lenz MD at 10:36 EST , Discharge Plan Triage Chief Complaint: Abd Pain ED Provider: Louis Spivey Dx/Rx/DC Orders Clinical Impression: Abdominal pain, Acute mesenteric adenitis Instructions: Abdominal Pain, ED Adenitis, Mesenteric Prescriptions: No Action levothyroxine 25 MCG tablet 50 mcg PO DAILY Label Comments: low thyroid fluoxetine 20 mg capsule 40 mg PO DAILY Linzess 145 mcg capsule 145 mcg PO DAILY cephalexin 500 mg capsule 500 mg PO Q6 Qty: 14 0RF tizanidine 4 mg tablet 4 mg PO Q4H PRN PRN (Reason: Headache) esomeprazole magnesium 40 mg capsule,delayed release(DR/EC) 40 mg PO DAILY buspirone 15 mg tablet 15 mg PO TID Primary Care Provider: Damian Jackson Referrals: Damian Jackson MD [Primary Care Provider] - 1 Week if not improving Activity Restrictions/Additional Instructions: Motrin and Tylenol for pain. Your labs are unremarkable. Your CAT scan showed swollen lymph nodes. This should improve over time. If not follow-up with your doctor. No signs of colitis. Disposition Disposition: Home, Self Care
[2022-06-30 09:31] LABS: Absolute Lymphocyte Count 2.06 X10^3/uL (0.83-4.51); Absolute Neutrophil Count 6.6 X10^3/uL (2.0-7.7); Basophil# 0.06 X10^3/uL; Basophil% 0.6 % (0-1); Eosinophil# 0.15 X10^3/uL; Eosinophils% 1.6 % (0-5); Hematocrit 42.3 % (37-47); Hemoglobin 13.9 g/dL (12.0-15.0); Lymphocyte # 2.06 X10^3/ul (0.83-4.51); Lymphocyte % 21.9 % (19-41); Mean Corp Hgb Conc 32.9 g/dL (32-36); Mean Corpuscular Hgb 26.8 pg (27.0-32.0); Mean Corpuscular Volume 81.7 fL (81-99); Mean Platelet Vol. 9.3 fl (6.2-12.0); Monocyte# 0.53 X10^3/uL; Monocyte% 5.6 % (0-10); NRBC Flagged by Analyzer 0 % (0-5); Neutrophil # 6.57 X10^3/uL (2.7-7.7); Neutrophil % 69.8 % (47-70); Platelet Count 285 K/mm3 (150-450); RBC Distribution Width CV 12.9 % (11.6-14.6); RBC Distribution Width SD 38.2 fl (35.1-43.9); Red Blood Count 5.18 M/mm3 (4.2-5.4); White Blood Count 9.4 K/mm3 (4.4-11.0)
[2022-06-30 09:41] LABS: Internal QC Validated? YES +Cl - CLEAR BKGD; Pregnancy, Serum, hCG Quali. NEGATIVE Negative
[2022-06-30 09:47] LABS: AST(SGOT) 14 U/L (15-37); Alanine Aminotransfer ALT/SGPT 26 U/L (13-56); Albumin, Serum 3.7 g/dL (3.2-5.0); Alkaline Phosphatase 67 U/L (45-117); Anion Gap 7 (5-15); BUN 10 mg/dL (7-18); BUN/Creat Ratio 14.7 RATIO (10-20); Chloride 111 mmol/L (98-107); Creatinine, Serum 0.68 mg/dL (0.55-1.02); EST Glomerular Filtration Rate 113 mL/min (>60); Est Glom Filt Rate - Afr Amer 137 mL/min (>60); Estimated Creatinine Clearance 105.53 ml/min; Globulin 3.6 g/dL (2.2-4.2); Glucose 99 mg/dL (74-106); Lipase 109 U/L (73-393); Potassium 3.7 mmol/L (3.5-5.1); Protein, Total 7.3 g/dL (6.4-8.2); Sodium Level 141 mmol/L (136-145)
[2022-06-30 09:59] LABS: Mucous, Urine 0 SEEN /hpf (<or=2+); White Blood Cells 0 SEEN /hpf (0-5)
[2022-06-30 10:00] LABS: Color, Urine Yellow (Yellow); Glucose, Dipstick Normal (Normal); Ketone-Dipstick Negative (Negative); Leukocyte Esterase-Dipstick Negative /ul (Negative); Nitrite-Dipstick Negative (Negative); Occult Blood-Urine 25 /ul (Negative); Protein-Dipstick 30 mg/dl (Negative); Specific Gravity, Urine 1.015 (1.002-1.030); Urine Bilirubin Dipstick Negative (Negative); Urine Clarity Sl. Cloudy (Clear); Urine Urobilinogen Normal (Normal); Urine pH 6.5 (5.0 - 8.0)
[2022-06-30 10:06] LABS: Bacteria 1+ /hpf (None Seen); Red Blood Cells-Urine 0-5 SEEN /hpf (0-5); Squamous Epithelial Cells - UA 5-10 SEEN /hpf (5-10)
== END 2022-06-30 11:36 | disposition home or self-care (01) ==
PROVIDERS: Emergency Provider Emergency Medicine; PCP Family Medicine; Visit Provider Emergency Medicine
DX: I88.0 Nonspecific mesenteric lymphadenitis (principal); F17.290 Nicotine dependence, other tobacco product, uncomplicated; E66.9 Obesity, unspecified
CPT/HCPCS: 74177; 80053; 81001; 83690; 84703; 85025; 99283; Q9967; A4216

== ENCOUNTER 2022-09-06 13:55 | Emergency (ER) | payer OTHER, MEDICAID, SELFPAY ==
[2022-09-06 13:56] VITALS: BP 111/96; PULSE 119; RESP 18; TEMP 36.8; O2SAT 100; BMI 40.7
--- NOTE | 2022-09-06 14:14 | EKG12_ITS ---
Test Reason : DYSRHYTHMIA Blood Pressure : / mmHG Vent. Rate : 080 BPM Atrial Rate : 080 BPM P-R Int : 130 ms QRS Dur : 080 ms QT Int : 376 ms P-R-T Axes : 013 032 004 degrees QTc Int : 433 ms Normal sinus rhythm Normal ECG Confirmed by ELI DIAMOND, THEODORA ([id number]), sound editor CAROLYNN NETTLES ([id number]) on 09/08/2022 2:46:24 PM Referred By: INGRID Confirmed By:ROMAN BENITEZ MD
--- NOTE | 2022-09-06 14:15 | RAD_ITS ---
EXAM: XR CHEST, 2 VIEWS CLINICAL INDICATION: cough TECHNIQUE: Frontal and lateral views of the chest. COMPARISON: No relevant prior studies available. FINDINGS: LUNGS AND PLEURAL SPACES: The lungs are clear. No pneumothorax. No effusion. HEART: Unremarkable. Cardiac silhouette not enlarged. MEDIASTINUM: Central airways and mediastinal contour are unremarkable. BONES/JOINTS: Unremarkable. SOFT TISSUES: Unremarkable. RAD/Chest PA and Lateral IMPRESSION: Normal chest radiographs. Electronically Signed: Haresh Cotto MD at 15:20 EDT ,
--- NOTE | 2022-09-06 14:18 | EDS_ITS ---
HPI <YO Clark - Last Filed: 09/06/22 15:39> History of Present Illness Chief Complaint: Weakness Narrative Narrative: Patient is a 22-year-old female with history of acid reflux, hypothyroidism, anxiety, migraine headaches who presents to the emergency department for generalized feeling of weakness, bilateral lower legs weakness, pain. Patient states that she was admitted 2 weeks ago at [facility] for hypokalemia. After getting replacement, she did get released. She states that she felt weak, body aches. Today, the patient feels like she has been working out her legs however she has not. She also feels weak and overly tired. She denies any chest pain however has intermittent shortness of breath. She does have a PCP, I did redo some laboratory studies 1.5 weeks ago which were negative for any abnormality. Patient states she is here today because of the leg weakness as well as the muscle pains and concern for her potassium PFSH <YO Clark - Last Filed: 09/06/22 15:39> PFSH Medical History Colitis GERD (gastroesophageal reflux disease) Hypothyroidism IBS (irritable bowel syndrome) Home Medications levothyroxine 25 mcg tablet 50 mcg PO DAILY thyroid 01/11/14 [History Last Taken 09/26/17 08:00 25 cg] cephalexin 500 mg capsule 500 mg PO Q6 #14 caps 03/02/22 [Rx Last Taken Unknown] fluoxetine 20 mg capsule 40 mg PO DAILY 03/02/22 [History Last Taken Unknown] linaclotide 145 mcg capsule (Linzess) 145 mcg PO DAILY 03/02/22 [History Last Taken Unknown] buspirone 15 mg tablet 15 mg PO TID 06/30/22 [History Last Taken Unknown] esomeprazole magnesium 40 mg capsule,delayed release 40 mg PO DAILY 06/30/22 [ History Last Taken Unknown] tizanidine 4 mg tablet 4 mg PO Q4H PRN PRN Headache 06/30/22 [History Last Taken Unknown] potassium chloride 20 mEq tablet,extended release 20 meq PO BID #14 tabs 09/06/22 [Rx Last Taken Unknown] Allergy/AdvReac Type Severity Reaction Status Date / Time No Known Allergies Allergy Verified 09/06/22 13:58 Social History Smoking Status: Current every day smoker tobacco type: e-cigarettes ROS <YO Clark - Last Filed: 09/06/22 15:39> ROS ED ROS Narrative Constitutional: Negative for fever, weight loss. Positive for chills, weakness Eyes: Negative for vision loss, vision change, double vision ENT: Negative for any sore throat, ear pain, congestion Cardiovascular: Negative for any chest pain, tightness, palpitations Respiratory: Negative for any sputum production, hemoptysis, dyspnea on exertion, orthopnea. Positive for dyspnea. Positive for cough Gastrointestinal: Negative for any abdominal pain, nausea, vomiting, diarrhea, constipation, blood in stool, blood in vomit : Negative for any urinary frequency, dysuria, retention, blood in urine Muscle skeletal: Negative for any muscle joint pain, stiffness, arthralgias, neck pain, back pain. Positive for myalgias, arthralgias specifically to the lower leg. Concern for discoloration of her fingers Neurological: Negative for any headache, syncope, numbness or tingling, dizziness Skin: Negative for any rashes, lumps, itching, abrasions, lacerations Psychiatric: Negative for any depression, anxiety, stress, suicidal ideation, homicidal ideation Hematologic: Negative for any easy bruising, excessive bruising, easy bleeding Allergies: Negative for any eczema, hives, rash EXAM <YO Clark - Last Filed: 09/06/22 15:39> Physical Exam Narrative Exam Narrative: Vital signs reviewed. Patient is in no obvious respiratory distress. Patient is tachycardic however under 7 room air HEET: Head normocephalic atraumatic, TMs clear bilaterally. Posterior pharynx is clear, moist mucous membranes. Nares clear bilaterally. Neck: Supple with no lymphadenopathy or tenderness. No signs of meningismus, negative jolt sign. Cardiac: Tachycardic rate no murmurs gallops or rubs, equal peripheral pulses bilaterally. Respiratory: patient has wheezes to bilateral bases, rhonchorous breath sounds to the left middle lobe bilaterally. No chest tenderness. Abdomen: Soft, nontender, nondistended. No abdominal bruit or pulsatile masses. No hepatosplenomegaly Extremities: No peripheral edema, no signs of gross trauma or deformity. Active full range of motion of all extremities. Extremities are warm. +2 pedal pulse. Patient has pain throughout her entire legs. Mostly around the musculature. Patient's hands do show some discoloration to the dorsal aspect of her fingers. However these are warm, capillary refill less than 3 seconds. No signs or symptoms of vascular abnormality Neuro: Cranial nerves II through XII intact, no focal neurological deficits. N IH stroke score 0 Skin: Clean dry and intact with no rash, purpura, petechiae, vesicles or pustules. Backs/flank: No CVA tenderness, no midline spinal tenderness, no deformity. Psych: Normal mood and affect. No SI, HI or acute psychosis. Const Vital Signs: 09/06/22 13:56 09/06/22 14:13 09/06/22 15:49 Temperature 98.3 F 97.9 F Temperature Source Temporal Pulse Rate 119 H 78 Respiratory Rate 18 16 Respiratory Effort Normal Respiratory Pattern Normal Blood Pressure 111/96 H 134/78 H Blood Pressure Mean 101 Pulse Ox 100 99 Oxygen Delivery Method Room Air Positive well nourished and well developed General Appearance ED: well developed <Dr. Steffanie Ureña MD - Last Filed: 09/06/22 21:14> Physical Exam Const Vital Signs: 09/06/22 13:56 09/06/22 14:13 09/06/22 15:49 Temperature 98.3 F 97.9 F Temperature Source Temporal Pulse Rate 119 H 78 Respiratory Rate 18 16 Respiratory Effort Normal Respiratory Pattern Normal Blood Pressure 111/96 H 134/78 H Blood Pressure Mean 101 Pulse Ox 100 99 Oxygen Delivery Method Room Air [facility] <YO Clark - Last Filed: 09/06/22 15:39> [facility] Lab Data Attestation: I reviewed the patient's lab results. Labs: Laboratory Results - last 24 hr 09/06/22 09/06/22 09/06/22 14:30 14:30 14:30 WBC 11.2 H RBC 5.26 Hgb 14.3 Hct 42.0 MCV 79.8 L MCH 27.2 MCHC 34.0 RDW Std Deviation 38.1 RDW Coeff of Nawaf 13.3 Plt Count 282 MPV 9.1 Immature Gran % (Auto) 0.400 Neut % (Auto) 75.4 H Lymph % (Auto) 14.6 L [place] % (Auto) 6.3 Eos % (Auto) 2.5 Baso % (Auto) 0.8 Absolute Neuts (auto) 8.4 H Absolute Lymphs (auto) 1.63 Nucleated RBC % 0 D-Dimer Quant (PE/DVT) < 0.27 L Sodium 139 Potassium 3.3 L Chloride 106 Carbon Dioxide 24.0 Anion Gap 9 BUN 9 Creatinine 0.81 Estim Creat Clear Calc 88.59 Est GFR (MDRD) Af Amer 111 Est GFR (MDRD) Non-Af 92 BUN/Creatinine Ratio 11.1 Glucose 86 Calcium 9.4 Total Creatine Kinase TSH Urine Color Urine Clarity Urine pH Ur Specific [place] Urine Protein Urine Glucose (UA) Urine Ketones Urine Occult Blood Urine Nitrite Urine Bilirubin Urine Urobilinogen Ur Leukocyte Esterase Urine RBC Urine WBC Ur Squamous Epith Cells Urine Bacteria Urine Mucus Urine Test 09/06/22 09/06/22 14:30 14:30 WBC RBC Hgb Hct MCV MCH MCHC RDW Std Deviation RDW Coeff of Nawaf Plt Count MPV Immature Gran % (Auto) Neut % (Auto) Lymph % (Auto) [place] % (Auto) Eos % (Auto) Baso % (Auto) Absolute Neuts (auto) Absolute Lymphs (auto) Nucleated RBC % D-Dimer Quant (PE/DVT) Sodium Potassium Chloride Carbon Dioxide Anion Gap BUN Creatinine Estim Creat Clear Calc Est GFR (MDRD) Af Amer Est GFR (MDRD) Non-Af BUN/Creatinine Ratio Glucose Calcium Total Creatine Kinase 259 H TSH 1.82 Urine Color Yellow Urine Clarity Clear Urine pH 7.0 Ur Specific [place] 1.010 Urine Protein 15 H Urine Glucose (UA) Normal Urine Ketones Negative Urine Occult Blood 10 H Urine Nitrite Negative Urine Bilirubin Negative Urine Urobilinogen Normal Ur Leukocyte Esterase Negative Urine RBC 0 SEEN Urine WBC 0 SEEN Ur Squamous Epith Cells 0-5 SEEN Urine Bacteria 0 SEEN Urine Mucus 0 SEEN Urine Test Negative Radiography Diagnostic Testing: Clinical Impression(s) from Imaging Studies Chest X-Ray 09/06/22 14:15 IMPRESSION: Normal chest radiographs. Electronically Signed: Haresh Cotto MD at 15:20 EDT , EKG Normal sinus rhythm: Attestation: I personally reviewed and interpreted this EKG as follows: Interpretation: Sinus Rhythm Comments: Normal sinus rhythm, rate of 80 bpm, [place] interval 130 ms, QRS duration 80 ms, no acute ST elevation, no acute infarct noted Treatment and Re-Evaluation :: All radiologic examinations were read, reviewed by the emergency department attending. From these reads, a plan of care will be put in place. Patient appears generally well, patient appears nontoxic, vital signs are stable. Patient presents to the emergency department with ongoing weakness, concern for low potassium, as well as cough shortness of breath. Patient did receive a extensive work-up. Concerning for any rhabdomyolysis, pulmonary embolus, electrolyte imbalance. Patient's laboratory values show slight leukocytosis with a white blood count of 11.2. Patient's chemistries showed CK of 259, this is slightly elevated however not considered rhabdomyolysis, TSH was within normal limits at 1.82. Potassium was 3.3, she was replaced with 40 mEq here. Patient had a negative D-dimer. Chest x-ray two-view was unremarked for any acute process. Patient did receive IV fluids, as well as by mouth potassium, she states she did feel slightly better. At this time, there is no evidence of any ACS, IA, EKG was unremarkable. She will be placed on 20 mill equivalents of potassium twice a day for 7 days. She will follow-up closely with her PCP. She is happy with the plan of care, she had all questions answered, return precautions given. <Dr. Steffanie Ureña MD - Last Filed: 09/06/22 21:14> [facility] Lab Data Labs: Laboratory Results - last 24 hr 09/06/22 09/06/22 09/06/22 14:30 14:30 14:30 WBC 11.2 H RBC 5.26 Hgb 14.3 Hct 42.0 MCV 79.8 L MCH 27.2 MCHC 34.0 RDW Std Deviation 38.1 RDW Coeff of Nawaf 13.3 Plt Count 282 MPV 9.1 Immature Gran % (Auto) 0.400 Neut % (Auto) 75.4 H Lymph % (Auto) 14.6 L [place] % (Auto) 6.3 Eos % (Auto) 2.5 Baso % (Auto) 0.8 Absolute Neuts (auto) 8.4 H Absolute Lymphs (auto) 1.63 Nucleated RBC % 0 D-Dimer Quant (PE/DVT) < 0.27 L Sodium 139 Potassium 3.3 L Chloride 106 Carbon Dioxide 24.0 Anion Gap 9 BUN 9 Creatinine 0.81 Estim Creat Clear Calc 88.59 Est GFR (MDRD) Af Amer 111 Est GFR (MDRD) Non-Af 92 BUN/Creatinine Ratio 11.1 Glucose 86 Calcium 9.4 Total Creatine Kinase TSH Urine Color Urine Clarity Urine pH Ur Specific [place] Urine Protein Urine Glucose (UA) Urine Ketones Urine Occult Blood Urine Nitrite Urine Bilirubin Urine Urobilinogen Ur Leukocyte Esterase Urine RBC Urine WBC Ur Squamous Epith Cells Urine Bacteria Urine Mucus Urine Test 09/06/22 09/06/22 14:30 14:30 WBC RBC Hgb Hct MCV MCH MCHC RDW Std Deviation RDW Coeff of Nawaf Plt Count MPV Immature Gran % (Auto) Neut % (Auto) Lymph % (Auto) [place] % (Auto) Eos % (Auto) Baso % (Auto) Absolute Neuts (auto) Absolute Lymphs (auto) Nucleated RBC % D-Dimer Quant (PE/DVT) Sodium Potassium Chloride Carbon Dioxide Anion Gap BUN Creatinine Estim Creat Clear Calc Est GFR (MDRD) Af Amer Est GFR (MDRD) Non-Af BUN/Creatinine Ratio Glucose Calcium Total Creatine Kinase 259 H TSH 1.82 Urine Color Yellow Urine Clarity Clear Urine pH 7.0 Ur Specific [place] 1.010 Urine Protein 15 H Urine Glucose (UA) Normal Urine Ketones Negative Urine Occult Blood 10 H Urine Nitrite Negative Urine Bilirubin Negative Urine Urobilinogen Normal Ur Leukocyte Esterase Negative Urine RBC 0 SEEN Urine WBC 0 SEEN Ur Squamous Epith Cells 0-5 SEEN Urine Bacteria 0 SEEN Urine Mucus 0 SEEN Urine Test Negative Radiography Diagnostic Testing: Clinical Impression(s) from Imaging Studies Chest X-Ray 09/06/22 14:15 IMPRESSION: Normal chest radiographs. Electronically Signed: Haresh Cotto MD at 15:20 EDT , Treatment and Re-Evaluation :: All radiologic examinations were read, reviewed by the emergency department attending. From these reads, a plan of care will be put in place. Patient appears generally well, patient appears nontoxic, vital signs are stable. Patient presents to the emergency department with ongoing weakness, concern for low potassium, as well as cough shortness of breath. Patient did receive a extensive work-up. Concerning for any rhabdomyolysis, pulmonary embolus, electrolyte imbalance. Patient's laboratory values show slight leukocytosis with a white blood count of 11.2. Patient's chemistries showed CK of 259, this is slightly elevated however not considered rhabdomyolysis, TSH was within normal limits at 1.82. Potassium was 3.3, she was replaced with 40 mEq here. Patient had a negative D-dimer. Chest x-ray two-view was unremarked for any acute process. Patient did receive IV fluids, as well as by mouth potassium, she states she did feel slightly better. At this time, there is no evidence of any ACS, IA, EKG was unremarkable. She will be placed on 20 mill equivalents of potassium twice a day for 7 days. She will follow-up closely with her PCP. She is happy with the plan of care, she had all questions answered, return precautions given. Patient seen and evaluated with SARIKA. I personally interviewed and examined the patient. I was involved in all aspects of patient's orders, interpretation of results, and treatment. Patient presents due to concern for low potassium. She states that she feels weak all over with muscle aches. She states she was recently admitted to [facility] due to low potassium levels. She states that after receiving potassium the hospital she was discharged with 5 days of oral potassium. She finished this 2 to 3 weeks ago. She states since that time she had gradual onset of body aches and weakness which are the same symptoms she had when she was admitted. Patient sitting upright in bed no acute distress. Nontoxic-appearing. Head and neck examination unremarkable. Heart is regular rate and rhythm. Lung sounds are clear. Abdomen is soft and nontender. Skin examination reveals no acute abnormalities. EKG reveals no evidence of acute ischemia. CBC reveals elevation of white count of 11.2 with 75% neutrophils. Chemistry studies reveal only slightly low potassium at 3.3. Glucose is 86. D-dimer is negative. TSH is normal at 1.82. CK is 259. Urinalysis reveals no evidence of infection. Patient given oral potassium replacement here. She will be given additional potassium replacement at home. She is encouraged to follow-up with her doctor late next week for repeat labs. Return instructions provided. Discharge Plan Triage Chief Complaint: Weakness ED Midlevel Provider: Geoff Meza ED Provider: Steffanie Ureña Dx/Rx/DC Orders Clinical Impression: Chronic hypokalemia, Myalgia Instructions: Hypokalemia Dc, ED Myalgias Prescriptions: New potassium chloride 20 mEq tablet extended release 20 meq PO BID Qty: 14 0RF No Action levothyroxine 25 MCG tablet 50 mcg PO DAILY Label Comments: low thyroid fluoxetine 20 mg capsule 40 mg PO DAILY Linzess 145 mcg capsule 145 mcg PO DAILY cephalexin 500 mg capsule 500 mg PO Q6 Qty: 14 0RF tizanidine 4 mg tablet 4 mg PO Q4H PRN PRN (Reason: Headache) esomeprazole magnesium 40 mg capsule,delayed release(DR/EC) 40 mg PO DAILY buspirone 15 mg tablet 15 mg PO TID Primary Care Provider: Damian Jackson Referrals: Damian Jackson MD [Primary Care Provider] - Activity Restrictions/Additional Instructions: Take your potassium supplements. Please follow-up with your PCP. Disposition Disposition: Home, Self Care Discharge Date/Time: 09/06/22 15:50
[2022-09-06] MEDS: Ondansetron 4 MG/2 ML Vial IV (14:33)
[2022-09-06] MEDS: Ketorolac 15 MG/ML Vial IV (14:33)
[2022-09-06] MEDS: 0.9% Normal Saline 1,000 ML 1000 ML IV (14:34)
[2022-09-06 14:44] LABS: Bacteria 0 SEEN /hpf (None Seen); Mucous, Urine 0 SEEN /hpf (<or=2+); Red Blood Cells-Urine 0 SEEN /hpf (0-5); White Blood Cells 0 SEEN /hpf (0-5)
[2022-09-06 14:48] LABS: Absolute Lymphocyte Count 1.63 X10^3/uL (0.83-4.51); Absolute Neutrophil Count 8.4 X10^3/uL (2.0-7.7); Basophil# 0.09 X10^3/uL; Basophil% 0.8 % (0-1); Eosinophil# 0.28 X10^3/uL; Eosinophils% 2.5 % (0-5); Hemoglobin 14.3 g/dL (12.0-15.0); Lymphocyte # 1.63 X10^3/ul (0.83-4.51); Lymphocyte % 14.6 % (19-41); Mean Corpuscular Hgb 27.2 pg (27.0-32.0); Mean Corpuscular Volume 79.8 fL (81-99); Mean Platelet Vol. 9.1 fl (6.2-12.0); Monocyte% 6.3 % (0-10); NRBC Flagged by Analyzer 0 % (0-5); Neutrophil # 8.43 X10^3/uL (2.7-7.7); Neutrophil % 75.4 % (47-70); Platelet Count 282 K/mm3 (150-450); RBC Distribution Width CV 13.3 % (11.6-14.6); RBC Distribution Width SD 38.1 fl (35.1-43.9); Red Blood Count 5.26 M/mm3 (4.2-5.4); White Blood Count 11.2 K/mm3 (4.4-11.0)
[2022-09-06 14:52] LABS: Color, Urine Yellow (Yellow); Glucose, Dipstick Normal (Normal); Ketone-Dipstick Negative (Negative); Leukocyte Esterase-Dipstick Negative /ul (Negative); Nitrite-Dipstick Negative (Negative); Occult Blood-Urine 10 /ul (Negative); Protein-Dipstick 15 mg/dl (Negative); Urine Bilirubin Dipstick Negative (Negative); Urine Clarity Clear (Clear); Urine Urobilinogen Normal (Normal)
[2022-09-06 14:59] LABS: D-Dimer Quantitative (DVT/PE) < 0.27 FEU/ug/m (0.27-0.49)
[2022-09-06 15:03] LABS: Anion Gap 9 (5-15); BUN 9 mg/dL (7-18); BUN/Creat Ratio 11.1 RATIO (10-20); Calcium,Total 9.4 mg/dL (8.5-10.1); Chloride 106 mmol/L (98-107); Creatinine, Serum 0.81 mg/dL (0.55-1.02); EST Glomerular Filtration Rate 92 mL/min (>60); Est Glom Filt Rate - Afr Amer 111 mL/min (>60); Estimated Creatinine Clearance 88.59 ml/min; Glucose 86 mg/dL (74-106); Potassium 3.3 mmol/L (3.5-5.1); Sodium Level 139 mmol/L (136-145)
[2022-09-06 15:06] LABS: Squamous Epithelial Cells - UA 0-5 SEEN /hpf (5-10)
[2022-09-06 15:07] LABS: Internal QC Validated? YES +Cl - CLEAR BKGD; Pregnancy, Urine Negative Negative
[2022-09-06 15:14] LABS: CPK Total, Creatine Kinase 259 U/L (26-192); Thyroid Stim Hormone (TSH) 1.82 uIU/mL (0.358-3.74)
[2022-09-06] MEDS: Potassium Chloride Oral Tablet 20 MEQ 40 MEQ PO (15:24)
[2022-09-06 15:49] VITALS: BP 134/78; PULSE 78; RESP 16; TEMP 36.6; O2SAT 99
== END 2022-09-06 15:50 | disposition home or self-care (01) ==
PROVIDERS: Nurse Practitioner; Emergency Provider Emergency Medicine; PCP Family Medicine; Visit Provider Emergency Medicine
DX: R53.1 Weakness (principal); M79.10 Myalgia, unspecified site; E87.6 Hypokalemia; E03.9 Hypothyroidism, unspecified; K58.9 Irritable bowel syndrome, unspecified; Z79.899 Other long term (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 therapy; K21.9 Gastro-esophageal reflux disease without esophagitis; F17.290 Nicotine dependence, other tobacco product, uncomplicated
CPT/HCPCS: 71046; 80048; 81001; 81025; 82550; 84443; 85025; 85379; 93005; 96361; 96374; 96375; 99284; J7030; J2405

== ENCOUNTER 2023-07-02 08:43 | Emergency (ER) | payer OTHER, SELFPAY ==
[2023-07-02 08:44] VITALS: BP 131/82; PULSE 78; RESP 14; TEMP 36.8; O2SAT 98; BMI 38.4
--- NOTE | 2023-07-02 09:11 | EX.ED.VIS.HA ---
HPI History of Present Illness Chief Complaint: Headache Informant: patient Onset/Context/Timing Onset: Days (2) Context: Gradual Timing: Intermittent Quality -Headache: Positive for Other (Aching) Location: Generalized Worsened by: Light Relieved by: Nothing Associated Symptoms/Injury Associated Symptoms: Positive for Nausea, Sore Throat, Visual Changes and Photophobia; Negative for Fever, Vomiting, Sinus Pressure, Numbness, Tingling, Preceding Aura or Blurred Vision Narrative Narrative: Patient presents with headache that has been getting worse over the past 2 days. Patient states her headache is generalized. Patient describes it as aching. Patient states it has been waxing and waning over the past 2 days. Patient states it is worse with light. Patient also admits to some nausea but denies any vomiting. Patient admits to a sore throat. Patient admits to some photophobia. Patient denies any blurry vision or double vision. Patient states that her vision appears brighter. Patient denies any paresthesias or weakness. Patient denies any scotoma. Patient admits to some chills but denies any fevers. Patient went to urgent care and was referred to the emergency department for CT scan of her head. [facility] Medical History Colitis GERD (gastroesophageal reflux disease) Hypothyroidism IBS (irritable bowel syndrome) Home Medications levothyroxine 25 mcg tablet 50 mcg PO DAILY thyroid 01/11/14 [History Last Taken 09/26/17 08:00 25 cg] cephalexin 500 mg capsule 500 mg PO Q6 #14 caps 03/02/22 [Rx Last Taken Unknown] fluoxetine 20 mg capsule 40 mg PO DAILY 03/02/22 [History Last Taken Unknown] linaclotide 145 mcg capsule (Linzess) 145 mcg PO DAILY 03/02/22 [History Last Taken Unknown] buspirone 15 mg tablet 15 mg PO TID 06/30/22 [History Last Taken Unknown] esomeprazole magnesium 40 mg capsule,delayed release 40 mg PO DAILY 06/30/22 [History Last Taken Unknown] tizanidine 4 mg tablet 4 mg PO Q4H PRN PRN Headache 06/30/22 [History Last Taken Unknown] potassium chloride 20 mEq tablet,extended release 20 meq PO BID #14 tabs 09/06/22 [Rx Last Taken Unknown] Allergy/AdvReac Type Severity Reaction Status Date / Time No Known Allergies Allergy Verified 07/02/23 08:43 Surgical History no surgical history no surgical history Social History Smoking Status: Current every day smoker tobacco type: e-cigarettes ROS ROS ED Constitutional Constitutional ED: Reports chills and subjective; Denies fever(s) Eyes Eyes: Reports change in vision; Denies blurry vision ENT ENT ED: Reports sore throat; Denies rhinorrhea Cardiovascular Cardiovascular: Denies chest pain or palpitations Respiratory/Chest Respiratory/Chest: Denies cough or dyspnea Gastrointestinal Gastrointestinal: Denies nausea or vomiting Genitourinary Genitourinary ED: Reports urinary frequency; Denies dysuria or hematuria Musculoskeletal Musculoskeletal: Reports back pain and neck pain Integumentary Denies abscess or rash Neurologic Neurologic: Reports headache(s) and weakness Allergic/Immunologic Allergic/Immunologic ED: Denies mouth swelling or urticaria EXAM Physical Exam Const Vital Signs: 07/02/23 08:44 Temperature 98.3 F Temperature Source Temporal Pulse Rate 78 Respiratory Rate 14 Blood Pressure 131/82 H Blood Pressure Mean 98 Pulse Ox 98 Oxygen Delivery Method Room Air Positive well nourished and well developed General Appearance ED: well developed and NAD HEENT Reports moist mucous membranes Neck supple, no meningeal signs and no JVD Resp normal respiratory effort and clear to auscultation bilaterally Cardio regular rate and regular rhythm GI non-tender and non-distended Palpation: soft Extremity normal to inspection and full ROM Neuro oriented x3, CN's II-XII intact bilaterally and no sensory deficits noted Lindsay Coma Scale: document GCS findings Spontaneous Obeys Commands Oriented 15 Sensorium / Orientation: awake and alert Speech: speech normal Gait (Neuro): normal gait Motor Exam: strength 5/5 throughout Psych mental status grossly normal MDM MDM MDM Narrative Medical decision making narrative: Differential diagnosis includes intracranial bleeding, migraine headache, temporal arteritis, and viral illness. Serum hCG will be obtained to assess for . Sed rate will be obtained to assess for inflammatory markers. COVID-19, influenza, and RSV PCR will be obtained to assess for viral infection. CT scan of the brain will be obtained to assess for intracranial bleeding. Lab Data Attestation: I reviewed the patient's lab results. Lab results narrative: Serum hCG was reviewed and was negative. Labs: Laboratory Results - last 24 hr 07/02/23 09:35 Serum , Qual NEGATIVE Radiography Diagnostic Testing: Clinical Impression(s) from Imaging Studies Brain CT 07/02/23 09:30 IMPRESSION: Normal unenhanced CT scan of the brain. Mild degree of mucosal thickening of the ethmoid sinuses. Electronically Signed: Shaun Lenz MD at 10:11 EST , CT scan of the brain was obtained. There is no acute intracranial abnormality. There is mild mucosal thickening of the ethmoid sinuses. This was interpreted by the radiologist and was also independently reviewed by myself. Treatment and Re-Evaluation Narrative: Patient was given IV fluids, Reglan, and Benadryl. Patient removed her own IV and left prior to completing treatment. Patient did not receive any discharge instructions. Patient was not given any of her test results. Patient left prior to completing treatment. Discharge Plan Triage Chief Complaint: Headache ED Provider: Thierno Winston Dx/Rx/DC Orders Clinical Impression: Headache Instructions: ED Headache Unspecified Prescriptions: No Action levothyroxine 25 MCG tablet 50 mcg PO DAILY Patient Comments: low thyroid fluoxetine 20 mg capsule 40 mg PO DAILY Linzess 145 mcg capsule 145 mcg PO DAILY cephalexin 500 mg capsule 500 mg PO Q6 Qty: 14 0RF tizanidine 4 mg tablet 4 mg PO Q4H PRN PRN (Reason: Headache) esomeprazole magnesium 40 mg capsule,delayed release(DR/EC) 40 mg PO DAILY buspirone 15 mg tablet 15 mg PO TID potassium chloride 20 mEq tablet extended release 20 meq PO BID Qty: 14 0RF Primary Care Provider: Damian Jackson Referrals: Damian Jackson MD [Primary Care Provider] - 3-5 Days Disposition Disposition: Elopement
--- NOTE | 2023-07-02 09:30 | CT_ITS ---
STUDY: CT BRAIN WITHOUT CONTRAST REASON FOR EXAM: Female, 23 years old. Headache. RADIATION DOSAGE (If Supplied By Facility): CTDIvol = ( 44.99 ) mGy, DLP = ( 829.85 ) mGycm TECHNIQUE: Transaxial CT imaging of the brain was performed without administration of intravenous contrast material. Individualized dose optimization techniques were used for this CT. COMPARISON: No relevant priors. FINDINGS: Normal soft tissue structures. Normal calvarium. Normal size ventricles and extra-axial spaces for the patient''s age. Normal white matter tracts of the cerebral hemispheres. Normal basal ganglia and thalami. Normal brainstem. Normal cerebellum. There is no intracranial hemorrhage. There are no findings of an acute ischemic infarction. Mild mucosal thickening of the ethmoid sinuses. CT/Brain/Head without Contrast IMPRESSION: Normal unenhanced CT scan of the brain. Mild degree of mucosal thickening of the ethmoid sinuses. Electronically Signed: Shaun Lenz MD at 10:11 EST ,
[2023-07-02] MEDS: 0.9% Normal Saline (1000mL) 1,000 ML 999 ML IV (09:46)
[2023-07-02] MEDS: DiphenhydrAMINE 50 MG/ML Syringe 25 MG IV (09:48)
[2023-07-02] MEDS: Metoclopramide 10 MG/2 ML Vial IV (09:49)
[2023-07-02 10:21] LABS: Internal QC Validated? YES +Cl - CLEAR BKGD; Pregnancy, Serum, hCG Quali. NEGATIVE Negative; Record Kit Lot#, Serum Preg. 718086
--- NOTE | 2023-07-02 10:21 | ED.RN ---
PT PULLED IV OUT AND LEFT DEPARTMENT. PT AWARE FOR NEED FOR RIDE HOME. ELOPEMENT. ATTEMPT TO CALL PT
[2023-07-02 10:36] LABS: Erythrocyte Sedimentation Rate 5 mm/hr (0-30)
[2023-07-02 11:11] VITALS: BP 124/80; PULSE 96; RESP 18; O2SAT 98
== END 2023-07-02 11:22 | disposition left against medical advice (07) ==
PROVIDERS: Emergency Provider Emergency Medicine; PCP Family Medicine; Visit Provider Emergency Medicine
DX: R51.9 Headache, unspecified (principal); E03.9 Hypothyroidism, unspecified; Z79.899 Other long term (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 therapy; K21.9 Gastro-esophageal reflux disease without esophagitis; F17.290 Nicotine dependence, other tobacco product, uncomplicated; R11.0 Nausea
CPT/HCPCS: 70450; 84703; 85652; 87631; 96361; 96374; 96375; 99283; J7030; A4216

== ENCOUNTER 2024-11-19 22:10 | Outpatient (CLI) | payer OTHER, SELFPAY ==
--- OUTSIDE RECORDS SUMMARY | 2024-11-19 22:19 | XMS RPT_ITS | CCD ---
Author Organization [facility] Care Team Providers Care [place] [employer] Supervisor Name Role Phone LAUREANOABNER Unavailable Unavailable LAUREANOABNER SUNSHINE Unavailable Unavailable Ivanauskas, Saulius Unavailable Unavailable Ivanauskas, Saulius Unavailable Unavailable Derick Montoya Unavailable Genie Castorena MD Primary Care Provider Genie Jackson MD Primary Care Provider Genie Jackson MD Primary Care Provider Genie Jackson MD Primary Care Provider Genie Jackson Unavailable Rajankameron, Trixie Unavailable Unavailable Dr. Genie Jackson Primary Care Unav ailable Mangalileoo, . Trixie Attending Unavail able Onofre Everett Unavailable Unavailable DR GENIE JACKSON MD Primary Care Physician TERRELL AHMADI MD Attending Unavailable DR GENIE JACKSON MD Primary Care Unavailab Genie Armenta Primary Care Unavailable Thierno Winston Attending Unavailable Genie Jackson Primary Care Unavailable Steffanie Ureña Attending Unavailable Genie Jackson MD Primary Care Provider [employer] ANALYSIS REPORTING DEVELOPER.CIERRA, Ivelisse Unavailable Husam ANALYSIS REPORTING DEVELOPER.SENIOR ELECTRONICS ENGINEER Terrell Unavailable [place] ANALYSIS REPORTING DEVELOPER.SENIOR ELECTRONICS ENGINEER, Ivelisse Unavailable [place] ANALYSIS REPORTING DEVELOPER.SENIOR ELECTRONICS ENGINEER, Ivelisse Unavailable IVELISSE NG Attending Unavailabl GENIE Valladares Primary Care Unavailable ELAYNE SEVERINO Attending Unavailable SELF Referring Unavailable ELDERBROCK, GENIE D Primary Care Unavailable ELDERBROCK, GENIE D Primary Care Unavailable CHRISTINE CLOUDE Attending Unavailable ELDERBROCK, GENIE D Primary Care Unavailable ROXANA FRY Attending Unavailable EMMANUEL HESS Attending Unavailable ELDERBROCK, GENIE Cynthia Primary Care Unavailable EMMANUEL HESS Referring Unavailable ELDERBROCK, GENIE Cynthia Primary Care Unavailable MAYCOL, ELAYNE Referring Unavailable ELDERBROCK, GENIE D Primary Care Unavailable MAYCOL, ELAYNE Attending Unavailable ELDERBROCK, GENIE D Primary Care Unavailable SONDRA, JENSARA Attending Unavailable ELDERBROCK, GENIE D Primary Care Unavailable SONDRA, JENSARA Referring Unavailable ELDERBROCK, GENIE D Primary Care Unavailable MAYCOL, ELAYNE Attending Unavailable ELDERBROCK, GENIE D Primary Care Unavailable ELDERBROCK, GENIE D Primary Care Unavailable STEFFANIE LOPEZ Attending Unavailable SONDRA, JENSARA Referring Unavailable ELDERBROCK, GENIE D Primary Care Unavailable ELDERBROCK, GENIE D Attending Unavailable ELDERBROCK, GENIE D Primary Care Unavailable ELDERBROCK, GENIE D Primary Care Unavailable IVELISSE NG Attending Unavailabl e ELDERBROCK, GENIE D Primary Care Unavailable MAYCOL, ELAYNE Attending Unavailable ELDERBROCK, GENIE D Primary Care Unavailable MAYCOL, ELAYNE Referring Unavailable ELDERBROCK, GENIE D Primary Care Unavailable MAYCOL, ELAYNE Referring Unavailable ELDERBROCK, GENIE D Attending Unavailable ELDERBROCK, GENIE D Primary Care Unavailable ELDERBROCK, GENIE D Primary Care Unavailable NAVAS, BHARGAVI Referring Unavailable ELDERBROCK, GENIE D Primary Care Unavailable NAVAS, BHARGAVI Referring Unavailable ELDERBROCK, GENIE D Primary Care Unavailable MAYCOL, ELAYNE Referring Unavailable NAVAS, BHARGAVI Attending Unavailable ELDERBROCK, GENIE D Primary Care Unavailable Medications Current Medications Medication Drug Class(es) Dates Sig (Normalized) Sig (Original) amoxicillin 875 mg oral tablet (2 sources) Penicillin-class Antibacterial Start: 02-05-2022 End: 02-12-2022 take 1 tablet by mouth twice daily amoxicillin (AMOXIL) 875 mg tablet Take 1 tablet by mouth twice daily for 7 days. 14 tablet 0 02/05/2022 02/12/2022 Active Comment on above: Take 1 tablet by david th twice daily for 7 days. amoxicillin 875 mg / clavulanate 125 mg oral tablet (2 sources) Penicillin-class Antibacterial Start: 02-12-2022 End: 02-19-2022 take 1 tablet by mouth twice daily amoxicillin-clavu lanic acid (AUGMENTIN) 875-125 mg per tablet Indications: Left ear pain , Frontal sinus pain Take 1 tablet by mouth twice daily for 7 days. 14 tablet 0 02/12/2022 02/19/2022 Active Comment on above: Take 1 tablet by david th twice daily for 7 days. aspirin 81 mg delayed release oral tablet (16 sources) Platelet Aggregation Inhibitor, Nonsteroidal Anti-inflammatory Drug Start: 08-31-2024 take 2 tablets by mouth once daily aspirin, enteric coated (ECOTRIN LOW STRENGTH) 81 mg EC tablet Indications: Hx of preeclampsia, prior , currently (HCC) Take 2 tablets by mouth once daily. 180 tablet 3 08/31/2024 Active Start: 08-01-2024 End: 08-31-2024 take 1 tablet by mouth once daily aspirin, enteric coated (ECOTRIN LOW STRENGTH) 81 mg EC tablet Indications: Hx of preeclampsia, prior , currently (HCC) Take 1 tablet by mouth once daily. 90 tablet 3 08/01/2024 08/31/2024 Discontinued busPIRone hydrochloride 15 mg oral tablet (20 sources) Start: 09-08-2024 take 1 tablet by mouth three times daily busPIRone (BUSPAR) 15 mg tablet Indications: RUDOLPH (generalized anxiety disorder) , Panic attack Take 1 tablet by mouth three times a day. 270 tablet 1 09/08/2024 Active Start: 08-04-2024 End: 09-08-2024 take 1 tablet by mouth twice daily busPIRone (BUSPAR) 15 mg tablet Indications: RUDOLPH (generalized anxiety disorder) , Panic attack Take 1 tablet by mouth two times a day. 08/04/2024 09/08/2024 Discontinued Start: 06-20-2024 End: 12-17-2024 take 1 tablet by mouth twice daily busPIRone 30 mg tablet Indications: Anxiety with depression Take 1 tablet by mouth two times a day. 60 tablet 5 06/20/2024 08/04/2024 Discontinued Start: 12-21-2023 End: 07-20-2024 take 1 tablet by mouth three times daily busPIRone (BUSPAR) 15 mg tablet Indications: Anxiety with depression Take 1 tablet by mouth three times a day. 90 tablet 5 01/22/2024 06/20/2024 Discontinued Start: 04-23-2021 End: 11-15-2023 take 1 tablet by mouth three times daily busPIRone (BUSPAR) 15 mg tablet Indications: RUDOLPH (generalized anxiety disorder) , Panic attack Take 1 tablet by mouth three times daily. 90 tablet 5 11/27/2021 07/23/2022 Discontinued Comment on above: Take 1 tablet by david th three times daily. Take 1 tablet by david th three times a day. cephalexin 500 mg oral capsule (5 sources) Cephalosporin Antibacterial Start: End: take 1 capsule by mouth four times daily cephALEXin (KEFLEX) 500 mg capsule Take 1 capsule by mouth four times daily for 5 days. 20 capsule 0 10/07/2023 10/12/2023 Active Start: 03-02-2022 take 500 mg by mouth every six hours Cephalexin Active 500 MG PO EVERY 6 HOURS March 01, 2022 11:00pm levothyroxine sodium 0.125 mg oral tablet (20 sources) l-Thyroxine Start: 09-29-2024 take 0.5 tablet by mouth once daily before breakfast levothyroxine (SYNTHROID) 125 mcg tablet Take 0.5 tablets by mouth daily before breakfast. 15 tablet 3 09/29/2024 Active Start: 04-04-2021 End: 09-29-2024 take 1 tablet by mouth once daily levothyroxine (SYNTHROID) 50 mcg tablet Indications: Hypothyroidism, unspecified type Take 1 tablet by mouth once daily. 30 tablet 11 03/22/2024 09/29/2024 Discontinued Start: 01-11-2014 take 50 ug by mouth once daily Levothyroxine Active 50 MCG PO DAILY January 10, 2014 11:00pm take 1 tablet by david th once daily levothyroxine 50 mcg (0.05 mg) oral tablet ; 1 tab(s) orally once a day Quantity: 0 Refills: 0 Ordered: 22-Aug-2022 Sarah Beth Hicks Generic Substitution Allowed Comment on above: Take 1 tablet by david th once daily. metroNIDAZOLE 500 mg oral tablet (5 sources) Nitroimidazole Antimicrobial Start: 025 End: take 1 tablet by mouth twice daily metroNIDAZOLE (FLAGYL) 500 mg tablet Take 1 tablet by mouth two times a day for 7 days. 14 tablet 08/02/2024 08/09/2024 Active nitrofurantoin, macrocrystals 25 mg / nitrofurantoin, monohydrate 75 mg oral capsule (2 sources) Nitrofuran Antibacterial Start: End: take 1 capsule by mouth twice daily at mealtime nitrofurantoin monohydrate and macrocrystal (MACROBID) 100 mg capsule Take 1 capsule by mouth twice daily with meals for 5 days. 10 capsule 0 09/30/2022 10/05/2022 Active Comment on above: Take 1 capsule by [facility] twice daily with meals for 5 days. omeprazole 40 mg delayed release oral capsule (1 source) Proton Pump Inhibitor Start: take 40 mg by mouth once daily Omeprazole Active 40 MG PO DAILY August 13, 2018 12:00am polymyxin b [id number] unt/ml / trimethoprim 1 mg/ml ophthalmic solution (2 sources) Dihydrofolate Reductase Inhibitor Antibacterial, Polymyxin-class Antibacterial Start: End: take 2 drop(s) into the eye(s) every four hours trimethoprim-polymyxi n (POLYTRIM) 10,000 unit- 1 mg/mL ophthalmic solution Use 2 Drops in both eyes every 4 hours for 7 days. 10 mL 0 02/02/2022 02/09/2022 Active Comment on above: Use 2 Drops in both eyes every 4 hours for 7 days. predniSONE 10 mg oral tablet (4 sources) Start: End: predniSONE (DELTASONE) 10 mg tablet Indications: Tension headache Take 4 tabs daily for 3 days, then 2 tabs daily for 3 days, then 1 tab daily for 3 days with food. 21 tablet 05/13/2024 05/22/2024 Active Start: 02-02-2022 End: 02-07-2022 take 2 tablets by mouth once daily predniSONE (DELTASONE) 20 mg tablet Take 2 tablets by mouth once daily for 5 days. 10 tablet 0 02/02/2022 02/07/2022 Active Start: 12-24-2021 End: 12-29-2021 take 2 tablets by mouth once daily predniSONE (DELTASONE) 20 mg tablet Take 2 tablets by mouth once daily for 5 days. 10 tablet 0 12/24/2021 12/29/2021 Active Comment on above: Take 2 tablets by mo [facility] once daily for 5 days. VIT 3-TPDD-HWUUO-DHA ORAL (15 sources) VIT 2-BZZZ-ZVEUS-DHA ORAL Take by mouth. Active sertraline 50 mg oral tablet (20 sources) Serotonin Reuptake Inhibitor Start: 06-15-2024 End: 12-12-2024 take 1 tablet by mouth once daily sertraline (ZOLOFT) 50 mg tablet Indications: Anxiety with depression Take 1 tablet by mouth once daily. 30 tablet 5 06/15/2024 12/12/2024 Active Completed/Discontinued Medications Medication Drug Class(es) Dates Sig (Normalized) Sig (Original) [id number] 200 actuat albuterol 0.09 mg/actuat metered dose inhaler (20 sources) beta2-Adrenergic Agonist Start: 05-20-2021 End: 05-13-2024 take 2 puff(s) by inhalation every four hours as needed for wheezing albuterol HFA (VENTOLIN HFA) 90 mcg/actuation inhaler Indications: Cough Inhale 2 Puffs as instructed every 4 hours as needed for wheezing/shortness of breath. 1 Inhaler 05/20/2021 05/13/2024 Discontinued take 2 puff(s) by in halation every six hours as needed albuterol 90 mcg/inh inhalation aerosol ; 2 puff(s) inhaled every 6 hours, As Needed Quantity: 0 Refills: 0 Ordered: 22-Aug-2022 Sarah Beth Hicks Generic Substitution Allowed Comment on above: Inhale 2 Puffs as in structed every 4 hours as needed for wheezing/shortness of breath. benzonatate 100 mg oral capsule (5 sources) Non-narcotic Antitussive Start: 2021 End: 2021 take 2 capsules by mouth every eight hours as needed benzonatate (TESSALON PERLES) 100 mg capsule Take 2 capsules by mouth three times daily as needed. 30 capsule 0 02/02/2022 03/07/2022 Discontinued Comment on above: Take 2 capsules by [facility] three times daily as needed. dicyclomine hydrochloride 20 mg oral tablet (2 sources) Anticholinergic Start: 2022 End: 2022 take 1 tablet by mouth four times daily dicyclomine 20 mg oral tablet ; 1 tab(s) orally 4 times a day Quantity: 20 Refills: 0 Ordered: 22-Aug-2022 Trixie Beard Start: 22-Aug-2022 End: 26-Aug-2022 Generic Substitution Allowed Comments: May cause drowsiness. Alcohol may intensify this effect. Use care when operating dangerous machinery. Comment on above: May cause drowsiness . Alcohol may intensify this effect. Use care when operating dangerous machinery. diphenhydrAMINE (13 sources) Histamine-1 Receptor Antagonist End: 2024 diphenhydramine HCl (UNISOM, DIPHENHYDRAMINE, ORAL) Take by mouth as needed. 09/29/2024 Discontinued diphenhydramine HCl (UNISOM, DIPHENHYDRAMINE, ORAL) Take by mouth as needed. Active drospirenone / Ethinyl Estradiol (5 sources) Progestin, Estrogen Start: 01-22-2024 End: 05-13-2024 take 1 tablet by mouth once daily Drospirenone-Ethinyl Estradiol (PRANEETH, 28,) 3-0.02 mg per tablet Indications: Encounter for contraceptive management, unspecified type Take 1 tablet by mouth once daily for 28 days. 28 tablet 11 01/22/2024 05/13/2024 Discontinued Start: 01-22-2024 take 1 tablet by david th once daily Drospirenone-Ethinyl Estradiol (PRANEETH, 28,) 3-0.02 mg per tablet Indications: Encounter for contraceptive management, unspecified type Take 1 tablet by mouth once daily for 28 days. 28 tablet 11 01/22/2024 Active Start: 01-22-2024 End: 02-19-2024 take 1 tablet by mouth once daily Drospirenone-Ethinyl Estradiol (PRANEETH, 28,) 3-0.02 mg per tablet Indications: Encounter for contraceptive management, unspecified type Take 1 tablet by mouth once daily for 28 days. 28 tablet 11 01/22/2024 02/19/2024 Active esomeprazole 40 mg delayed release oral capsule (20 sources) Proton Pump Inhibitor Start: 06-30-2022 take 40 mg by mouth once daily Esomeprazole Magnesium Active 40 MG PO DAILY June 30, 2022 12:00am Start: 02-17-2022 End: 08-31-2024 take 1 capsule by mouth twice daily before mealtime esomeprazole (NEXIUM) 40 mg capsule Indications: GERD without esophagitis Take 1 capsule by mouth twice daily. 1/2 hr before meal. 60 capsule 1 07/29/2022 08/31/2024 Discontinued (Course of therapy completed) Start: 12-24-2021 End: 02-15-2022 take 1 capsule by mouth twice daily before mealtime esomeprazole (NEXIUM) 40 mg capsule Indications: GERD without esophagitis Take 1 capsule by mouth twice daily. 1/2 hr before meal. 60 capsule 1 12/24/2021 02/15/2022 Discontinued Start: 09-25-2021 End: 10-25-2021 take 1 capsule by mouth twice daily before mealtime esomeprazole (NEXIUM) 40 mg capsule Indications: GERD without esophagitis Take 1 capsule by mouth twice daily. 1/2 hr before meal. 60 capsule 1 09/25/2021 Active Start: 06-13-2021 End: 09-25-2021 take 1 capsule by mouth once daily before breakfast esomeprazole (NEXIUM) 40 mg capsule Indications: GERD without esophagitis Take 1 capsule by mouth daily before breakfast. 1/2 hr before meal. 30 capsule 5 06/13/2021 09/25/2021 Discontinued Comment on above: Take 1 capsule by mo ut daily before breakfast. 1/2 hr before meal. Take 1 capsule by mo ut twice daily. 1/2 hr before meal. ferrous sulfate 325 mg oral tablet (18 sources) Start: 1 End: 2 take 1 tablet by mouth once daily at breakfast ferrous sulfate 325 mg (65 mg iron) tablet Indications: Iron deficiency anemia secondary to inadequate dietary iron intake Take 1 tablet by mouth daily with breakfast. 90 tablet 1 01/01/2021 03/07/2022 Discontinued Comment on above: Take 1 tablet by david daily with breakfast. FLUoxetine 20 mg oral capsule (20 sources) Serotonin Reuptake Inhibitor Start: 4 End: 5 take 1 capsule by mouth once daily FLUoxetine (PROZAC) 20 mg capsule Indications: Anxiety with depression Take 1 capsule by mouth once daily. Take along with additional 40 mg capsule 30 capsule 5 01/22/2024 06/15/2024 Discontinued Start: 03-07-2022 End: 07-20-2024 take 1 capsule by mouth once daily FLUoxetine (PROZAC) 40 mg capsule Indications: Anxiety with depression Take 1 capsule by mouth once daily. Take along with additional 20 mg capsule 30 capsule 5 01/22/2024 06/15/2024 Discontinued Start: 03-02-2022 take 40 mg by mouth once daily Fluoxetine Active 40 MG PO DAILY March 01, 2022 11:00pm Start: 11-26-2021 End: 03-07-2022 take 1 capsule by mouth once daily FLUoxetine (PROZAC) 20 mg capsule Indications: Recurrent major depressive disorder, remission status unspecified (HCC) Take 1 capsule by mouth once daily. 30 capsule 5 11/26/2021 03/07/2022 Discontinued Comment on above: Take 1 capsule by mo ut once daily. fluticasone propionate 0.05 mg/actuat metered dose nasal spray (9 sources) Corticosteroid Start: 02-06-20 End: 08-27-19 take 2 spray(s) by mouth once daily fluticasone (FLONASE) 50 mcg/actuation nasal spray Use 2 Sprays in each nostril once daily. Rinse mouth after use. 1 Each 0 02/05/2022 08/26/2022 Discontinued (Course of therapy completed) Comment on above: Use 2 Sprays in each nostril once daily. Rinse mouth after use. linaclotide 0.145 mg oral capsule (20 sources) Guanylate Cyclase-C Agonist Start: 10-15-19 End: 01-17-20 take 1 capsule by mouth once daily LINZESS 145 mcg capsule Indications: Chronic constipation Take 1 capsule by mouth once daily. 90 capsule 3 01/22/2024 08/01/2024 Discontinued Start: 04-05-2021 End: 10-02-2021 take 1 capsule by mouth once daily LINZESS 145 mcg capsule Indications: Chronic constipation Take 1 capsule by mouth once daily. 30 capsule 5 04/05/2021 Active Comment on above: Take 1 capsule by mo uth once daily. methylPREDNISolone (20 sources) Corticosteroid End: 11-10-2023 METHYLPREDNISOLONE ACETATE (DEPO-MEDROL INJECTION) by INJECTION(UNSPECIFIED PARENTERAL ROUTES) route. 11/10/2023 Discontinued End: 11-10-2023 METHYLPREDNISOLONE ACETATE ( DEPO-MEDROL INJECTION) by INJECTION(UNSPECIFIED PARENTERAL ROUTES) route. 0 11/10/2023 Discontinued METHYLPREDNISOLO NE ACETATE (DEPO-MEDROL INJECTION) by INJECTION(UNSPECIFIED PARENTERAL ROUTES) route. 0 Active Comment on above: by INJECTION(UNSPECI FIED PARENTERAL ROUTES) route. ondansetron 4 mg oral tablet (20 sources) Serotonin-3 Receptor Antagonist Start: 025 End: take 1 tablet by mouth every eight hours as needed ondansetron (ZOFRAN) 4 mg tablet Take 1 tablet by mouth every 8 hours as needed for nausea/vomiting. 60 tablet 07/20/2024 09/29/2024 Discontinued Start: 08-22-2022 End: 08-24-2022 take 1 tablet by mouth three times daily ondansetron 4 mg oral tablet, disintegrating ; 1 tab(s) orally 3 times a day Quantity: 9 Refills: 0 Ordered: 22-Aug-2022 Trixie Beard Start: 22-Aug-2022 End: 24-Aug-2022 Generic Substitution Allowed Start: 05-09-2021 End: 11-10-2023 take 1 tablet by mouth every six hours as needed ondansetron orally disintegrating (ZOFRAN ODT) 4 mg disintegrating tablet Take 1 tablet by mouth every 6 hours as needed for nausea/vomiting. 12 tablet 05/09/2021 11/10/2023 Discontinued Comment on above: Take 1 tablet by david every 6 hours as needed for nausea/vomiting. potassium chloride 20 meq extended release oral tablet (20 sources) Start: 09-27-19 End: 11-10-19 24 take 1 tablet by mouth once daily potassium chloride 20 mEq TbER Take 1 tablet by mouth once daily. 7 tablet 0 09/26/2022 11/10/2023 Discontinued Start: 09-06-2022 take 20 mEq by mouth twice tyra ly Potassium Chloride Active 20 MEQ PO TWICE A DAY September 05, 2022 11:00pm Start: 08-22-2022 End: 08-26-2022 take 1 tablet by mouth twice daily at mealtime K-Tab 20 mEq oral tablet, extended release ; 1 tab(s) orally 2 times a day Quantity: 10 Refills: 0 Ordered: 22-Aug-2022 Trixie Beard Start: 22-Aug-2022 End: 26-Aug-2022 Generic Substitution Allowed Comments: It is very important that you take or use this exactly as directed. Do not skip doses or discontinue unless directed by your doctor.Medication should be taken with plenty of water.Take with food or milk. Comment on above: It is very important that you take or use this exactly as directed. Do not skip doses or discontinue unless directed by your doctor.Medication should be taken with plenty of water.Take with food or milk. Take 1 tablet by david th twice daily. Take 1 tablet by david th once daily. pyridoxine hydrochloride 25 mg oral tablet (13 sources) End: take 1 tablet by mouth once daily pyridoxine, vitamin B6, (VITAMIN B-6) 25 mg tablet Take 25 mg by mouth once daily. 09/29/2024 Discontinued sucralfate 1000 mg oral tablet (4 sources) Aluminum Complex Start: End: take 1 g by mouth four times daily Sucralfate Discontinued 1 GM PO 4 TIMES DAILY 60 September 07, 2017 11:00pm September 26, 2017 11:59pm tiZANidine 4 mg oral tablet (20 sources) Central alpha-2 Adrenergic Agonist Start: End: take 1 tablet by mouth every eight hours as needed for muscle spasms tiZANidine (ZANAFLEX) 4 mg tablet Indications: Tension headache Take 1 tablet by mouth every 8 hours as needed (muscle spasms). 30 tablet 1 07/01/2024 08/01/2024 Discontinued Start: 05-13-2024 take 1 tablet by david th every eight hours as needed for muscle spasms tiZANidine (ZANAFLEX) 4 mg tablet Indications: Tension headache Take 1 tablet by mouth every 8 hours as needed (muscle spasms). 30 tablet 1 05/13/2024 Active Start: 06-30-2022 take 4 mg by mouth e very four hours as needed Tizanidine Active 4 MG PO EVERY 4 HOURS NEEDED June 30, 2022 12:00am Start: 06-25-2021 End: 11-10-2023 take 1 tablet by mouth every eight hours as needed for muscle spasms tiZANidine (ZANAFLEX) 4 mg tablet Indications: Tension headache Take 1 tablet by mouth every 8 hours as needed (muscle spasms). 60 tablet 5 03/31/2022 11/10/2023 Discontinued Comment on above: Take 1 tablet by david th every 8 hours as needed (muscle spasms). 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 Anxiety disorders (20 sources) Generalized anxiety disorder; Translations: [Generalized anxiety disorder] Onset: Chronic Blindness and vision defects (1 source) Visual disturbance; Translations: [Unspecified visual disturbance] 07-02-2023 Episodic Cardiac dysrhythmias (4 sources) Tachycardia; Translations: [Tachycardia, unspecified] 08-15-2018 Episodic Chronic obstructive pulmonary disease and bronchiectasis (4 sources) Bronchitis; Translations: [Bronchitis, not specified as acute or chronic] 09-27-2017 Episodic Conditions associated with dizziness or vertigo (1 source) Dizziness; Translations: [Dizziness and giddiness] 07-02-2023 Episodic Deficiency and other anemia (4 sources) Iron deficiency anemia; Translations: [Iron deficiency anemia, unspecified] 09-27-2017 Episodic Endometriosis (20 sources) Uterine adenomyosis; Translations: [Adenomyosis of the uterus] Onset: 4 11-19-2023 Chronic Esophageal disorders (20 sources) Gastroesophageal reflux disease; Translations: [Gastro-esophageal reflux disease without esophagitis] Onset: 8 10-12-2017 Chronic Fluid and electrolyte disorders (4 sources) Hypokalemia; Translations: [Hypokalemia] Onset: 3 Episodic Gastritis and duodenitis (4 sources) NSAID-associated gastropathy; Translations: [Other gastritis without bleeding] 09-27-2017 Episodic Headache; including migraine (2 sources) Tension-type headache; Translations: [Tension-type headache, unspecified, not intractable] Chronic Headache; including migraine (3 sources) Headache; Translations: [Headache] Onset: 4 07-02-2023 Episodic Headache; including migraine (1 source) Headache; including migraine; Translations: [Headache, unspecified] Onset: 4 Hemorrhoids (4 sources) Hemorrhoids; Translations: [Unspecified hemorrhoids] 09-27-2017 Episodic Hypertension complicating ; childbirth and the puerperium (4 sources) Pre-eclampsia; Translations: [Unspecified pre-eclampsia, unspecified trimester] 09-27-2017 Episodic Immunizations and screening for infectious disease (10 sources) Patient encounter status; Translations: [Encounter for screening for human papillomavirus (HPV)] Onset: 5 11-10-2023 Episodic Inflammation; infection of eye (except that caused by tuberculosis or sexually transmitteddisease) (1 source) Bacterial conjunctivitis; Translations: [Unspecified conjunctivitis] Episodic Lymphadenitis (3 sources) Acute mesenteric adenitis; Translations: [Nonspecific mesenteric lymphadenitis] 06-30-2022 Episodic Mood disorders (7 sources) Recurrent major depression; Translations: [Major depressive disorder, recurrent, unspecified] Chronic Mood disorders (1 source) Mood disorders; Translations: [Anxiety and depression] Onset: 5 Nausea and vomiting (6 sources) Nausea and vomiting; Translations: [Nausea with vomiting, unspecified] Onset: 3 08-15-2018 Episodic Nonmalignant breast conditions (1 source) Pain of breast; Translations: [Mastodynia] 10-07-2023 Episodic Open wounds of head; neck; and trunk (4 sources) Open wound of lip with complication; Translations: [Puncture wound without foreign body of lip, initial encounter] 03-10-2022 Episodic Other aftercare (1 source) 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; Translations: [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] Onset: 3 Episodic Other aftercare (1 source) Post-discharge follow-up; Translations: [Encounter for follow-up examination after completed treatment for conditions other than malignant neoplasm] Episodic Other complications of ; puerperium affecting management of mother (4 sources) Deliveries by vacuum extractor; Translations: [Complication of labor and delivery, unspecified] 09-27-2017 Episodic Other complications of (1 source) Obesity complicating , unspecified trimester; Translations: [Obesity in (HCC)] Onset: 5 Chronic Other complications of (13 sources) Rubella non-immune; Translations: [Supervision of other high risk pregnancies, unspecified trimester] Onset: 5 08-31-2024 Episodic Other complications of (1 source) Supervision of other high risk pregnancies, second trimester; Translations: [Supervision of other high risk pregnancies, second trimester (HCC)] Onset: 5 Episodic Other complications of (1 source) Supervision of with other poor reproductive or obstetric history, unspecified trimester; Translations: [Hx of preeclampsia, prior , currently ([facility])] Onset: 5 Episodic Other complications of (1 source) Supervision of other high risk pregnancies, unspecified trimester; Translations: [Rubella non-immune status, antepartum ([facility])] Onset: 5 Episodic Other connective tissue disease (1 source) Pain of left hand; Translations: [Pain in left hand] Episodic Other connective tissue disease (2 sources) Muscle pain; Translations: [Myalgia, unspecified site] 09-06-2022 Episodic Other ear and sense organ disorders (1 source) Otalgia, left ear; Translations: [Otalgia, unspecified] Episodic Other ear and sense organ disorders (1 source) Bilateral earache; Translations: [Otalgia, bilateral] 10-07-2023 Episodic Other female genital disorders (1 source) Vaginal bleeding; Translations: [Abnormal uterine and vaginal bleeding, unspecified] 06-17-2023 Chronic Other gastrointestinal disorders (1 source) Change in bowel habit; Translations: [Change in bowel habit] Onset: 8 Episodic Other gastrointestinal disorders (1 source) Burping; Translations: [Eructation] Episodic Other gastrointestinal disorders (4 sources) Constipation; Translations: [Constipation, unspecified] 09-27-2017 Episodic Other gastrointestinal disorders (2 sources) Diarrhea, unspecified; Translations: [Diarrhea, unspecified] Onset: 3 Episodic Other gastrointestinal disorders (5 sources) Chronic constipation; Translations: [Other constipation] 01-14-2023 Episodic Other infections; including parasitic (1 source) Trichomoniasis, unspecified; Translations: [Trichomoniasis] Onset: 5 Episodic Other injuries and conditions due to external causes (4 sources) Systemic inflammatory response syndrome; Translations: [Systemic inflammatory response syndrome (SIRS) of non-infectious origin without acute organ dysfunction] 09-27-2017 Episodic Other nervous system disorders (1 source) Paresthesia; Translations: [Paresthesia of skin] Episodic Other non-traumatic joint disorders (2 sources) Pain of left wrist; Translations: [Pain in left wrist] Episodic Other nutritional; endocrine; and metabolic disorders (20 sources) Obesity; Translations: [Obesity, unspecified] Onset: 8 Resolved: 5 10-12-2017 Chronic Other nutritional; endocrine; and metabolic disorders (2 sources) Obese class II; Translations: [Obesity, unspecified] 11-04-2023 Chronic Other nutritional; endocrine; and metabolic disorders (17 sources) Body mass index 30+ - obesity; Translations: [Body mass index (BMI) 38.0-38.9, adult] Onset: 5 08-01-2024 Chronic Other nutritional; endocrine; and metabolic disorders (1 source) Obesity, unspecified; Translations: [Class II obesity] Onset: 4 Chronic Other and delivery including normal (8 sources) Normal ; Translations: [Encounter for supervision of other normal , unspecified trimester] Onset: 5 08-01-2024 Episodic Other screening for suspected conditions (not mental disorders or infectious disease) (9 sources) Cancer cervix screening status; Translations: [Encounter for screening for malignant neoplasm of cervix] Onset: 5 11-10-2023 Episodic Other upper respiratory disease (1 source) Frontal sinus pain; Translations: [Other specified disorders of nose and nasal sinuses] Episodic Other upper respiratory infections (6 sources) Viral upper respiratory tract infection; Translations: [Acute upper respiratory infection, unspecified] Episodic Otitis media and related conditions (1 source) Acute left otitis media; Translations: [Otitis media, unspecified, left ear] Episodic Residual codes; unclassified (1 source) Early satiety; Translations: [Early satiety] Episodic Residual codes; unclassified (4 sources) Gestation period, 38 weeks; Translations: [38 weeks gestation of ] 09-27-2017 Episodic Residual codes; unclassified (2 sources) Tobacco use; Translations: [Tobacco use] Onset: 3 Episodic Residual codes; unclassified (1 source) Confusional state; Translations: [Disorientation, unspecified] Episodic Residual codes; unclassified (8 sources) Gestation period, 6 weeks; Translations: [Less than 8 weeks gestation of ] Onset: 5 07-20-2024 Episodic Residual codes; unclassified (4 sources) Gestation period, 8 weeks; Translations: [8 weeks gestation of ] 08-01-2024 Episodic Residual codes; unclassified (12 sources) Nicotine-filled electronic cigarette user; Translations: [Tobacco use] Onset: 5 08-31-2024 Episodic Residual codes; unclassified (2 sources) Gestation period, 16 weeks; Translations: [16 weeks gestation of ] 09-29-2024 Episodic Residual codes; unclassified (1 source) Gestation period, 20 weeks; Translations: [20 weeks gestation of ] 10-26-2024 Episodic Residual codes; unclassified (1 source) 20 weeks gestation of ; Translations: [20 weeks gestation of (HCC)] Onset: 5 Episodic Residual codes; unclassified (1 source) 8 weeks gestation of ; Translations: [8 weeks gestation of (HCC)] Onset: 5 Episodic Residual codes; unclassified (1 source) 16 weeks gestation of ; Translations: [16 weeks gestation of (HCC)] Onset: 5 Episodic Residual codes; unclassified (1 source) Personal history of other complications of , childbirth and the puerperium; Translations: [History of hemorrhage] Onset: 5 Episodic Residual codes; unclassified (1 source) 12 weeks gestation of ; Translations: [12 weeks gestation of (HCC)] Onset: 5 Episodic Superficial injury; contusion (4 sources) Foreign body in lip; Translations: [Superficial foreign body of lip, initial encounter] 03-10-2022 Episodic Thyroid disorders (20 sources) Hypothyroidism; Translations: [Hypothyroidism, unspecified] Onset: 2 04-29-2021 Chronic Unclassified (2 sources) STOMACH PAIN, VOMTTING 08-22-2022 Comment on above: STOMACH PAIN, VOMTTI NG Unclassified (2 sources) RIGHT HAND PAIN, LOW POTASIUM 10-12-2022 Comment on above: RIGHT HAND PAIN, LOW POTASIUM Unclassified (15 sources) [facility] Education - COMMON Onset: 5 08-01-2024 Unclassified (15 sources) Education - [place] Onset: 5 08-01-2024 Unclassified (1 source) Rubella non-immune status, antepartum (HCC); Translations: [Rubella non-immune status, antepartum (HCC)] Onset: Urinary tract infections (1 source) Acute urinary tract infection; Translations: [Urinary tract infection, site not specified] Episodic Viral infection (1 source) Viral disease; Translations: [Viral infection, unspecified] 04-14-2024 Episodic Past or Other Problems Problem Classification Problem Date Documented Da te Episodic/Chronic Abdominal pain (20 sources) Abdominal pain; Translations: [Unspecified abdominal pain] Onset: 07-26-2013 Resolved: 11-10-2023 07-26-2013 Episodic Contraceptive and procreative management (1 source) Encounter for contraceptive management, unspecified; Translations: [Encounter for contraceptive management, unspecified type] Onset: 01-22-2024 Episodic Gastrointestinal hemorrhage (20 sources) Hematochezia; Translations: [Melena] Onset: 07-30-2020 Resolved: 11-10-2023 07-30-2020 Episodic Malaise and fatigue (2 sources) Fatigue; Translations: [Other fatigue] Onset: 09-11-2022 Episodic Menstrual disorders (20 sources) Menorrhagia; Translations: [Excessive and frequent menstruation with regular cycle] Onset: 03-08-2012 Resolved: 11-10-2023 03-08-2012 Chronic Other complications of (19 sources) Vomiting of , unspecified; Translations: [Unspecified vomiting of , unspecified as to episode of care or not applicable] Onset: 07-20-2024 Resolved: 09-29-2024 07-20-2024 Episodic Other complications of (20 sources) History of pre-eclampsia; Translations: [Supervision of with other poor reproductive or obstetric history, unspecified trimester] Onset: 08-01-2024 08-01-2024 Episodic Other complications of (17 sources) High risk ; Translations: [Supervision of other high risk pregnancies, second trimester] Onset: 08-01-2024 08-31-2024 Episodic Other gastrointestinal disorders (17 sources) Alteration in bowel elimination; Translations: [Change in bowel habit] Onset: 09-30-2017 09-30-2017 Episodic Other gastrointestinal disorders (20 sources) Altered bowel function; Translations: [Change in bowel habit] Onset: 09-30-2017 Resolved: 09-29-2024 09-30-2017 Episodic Other gastrointestinal disorders (1 source) Other constipation; Translations: [Chronic constipation] Onset: 01-22-2024 Episodic Other infections; including parasitic (18 sources) Infection by Trichomonas; Translations: [Trichomoniasis, unspecified] Onset: 08-02-2024 08-02-2024 Episodic Residual codes; unclassified (18 sources) History of hemorrhage; Translations: [Personal history of other complications of , childbirth and the puerperium] Onset: 08-01-2024 08-01-2024 Episodic Residual codes; unclassified (13 sources) Gestation period, 12 weeks; Translations: [12 weeks gestation of ] Onset: 07-20-2024 Resolved: 09-29-2024 08-31-2024 Episodic Screening and history of mental health and substance abuse codes (2 sources) Encounter for screening for depression; Translations: [Encounter for screening examination for other mental health and behavioral disorders] Onset: 01-22-2024 Episodic Results Test Name Value Interpretation Reference Range Facility [facility] 10-27-2024 [facility] Telephone ([id number]) -- JANET FRANK ([id number]) 2000 F T Date Time Provider Department 10/27/24 STEFFANIE NEELY [id number] During your visit today, we recorded the following information about you: Steffanie Neely RN 10/27/2024 9:36 AM Signed 2nd risk assessment form submitted 10/27/2024. 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 - busPIRone (BUSPAR) 15 mg tablet Take 1 tablet by mouth three times a day. - aspirin, enteric coated (ECOTRIN LOW STRENGTH) 81 mg EC tablet Take 2 tablets by mouth once daily. - VIT 4-[id number]-[id number] ORAL Take by mouth. - sertraline (ZOLOFT) 50 mg tablet Take 1 tablet by mouth once daily. Problem List As Of Date 10/27/2024 Noted Resolved Hypothyroidism [E03.9] 03/08/2012 Menorrhagia [N92.0] 03/08/2012 11/10/2023 Abdominal pain, other specified site [R10.9] 07/26/2013 11/10/2023 Physical exam [Z00.00] 07/23/2016 10/12/2017 Altered bowel habits [R19.4] 09/30/2017 09/29/2024 GERD (gastroesophageal reflux disease) [K21.9] 10/12/2017 Non morbid obesity [E66.9] 10/12/2017 09/29/2024 Blood in stool [K92.1] 07/30/2020 11/10/2023 Adenomyosis of the uterus [N80.03] 11/19/2023 Nausea and vomiting during (HCC) [O21*07/20/2024 09/29/2024 12 weeks gestation of (HCC) [Z3A.12] 07/20/2024 09/29/2024 History of hemorrhage [Z87.59] 08/01/2024 Hx of preeclampsia, prior , currently *08/01/2024 Supervision of other high risk pregnancies, sec*08/01/2024 BMI 38.0-38.9,adult [Z68.38] 08/01/2024 Trichomoniasis [A59.9] 08/02/2024 Rubella non-immune status, antepartum (HCC) [O0*08/31/2024 Engages in nicotine containing substance vaping*08/31/2024 Anxiety and depression [F41.9, F32.A] Obesity in (HCC) [O99.210] 08/31/2024 Abnormal results of thyroid function studies [R*09/27/2024 Encounter Status:Closed by STEFFANIE NEELY on 10/27/24 Normal [facility] Examination level ultrasound on 10-26-2024 Indication Detailed anatomic survey Maternal obesity, BMI >35, History of preeclampsia Impression The patient is referred for a detailed anatomic survey. - Single, live, intrauterine . - biometry is consistent with the established gestational age. - No malformations were visualized on a complete detailed anatomic survey. - The amniotic fluid volume is normal amount. - The placenta is posterior, fundal. - The Transabdominal cervical length measures 44.3 mm with no evidence of funneling or other dynamic changes. - Not all structural malformations can be detected by ultrasound examination. Recommendations - growth every 4 weeks starting at 28 weeks. - Additional follow up as clinically indicated. Maternal Assessment Height 163 cm Height (ft) 5 ft Height (in) 4 in Physical Exam Initial weight (lb) 218 lb Initial BMI 37.42 kg/m Maternal assessment other: 2 Para 1 REMOTE READ Method Transabdominal ultrasound examination. View: Suboptimal view: limited by maternal body habitus Manzo . Number of fetuses: 1 Dating LMP on: 06/04/2024 GA by LMP 20 w + 4 d KELLEY by LMP: 03/11/2025 GA by prior assessment 20 w + 4 d KELLEY by prior assessment: 03/11/2025 Ultrasound examination on: 10/26/2024 GA by U/S based upon: AC, BPD, Femur, HC GA by U/S 21 w + 5 d KELLEY by U/S: 03/03/2025 Assigned: based on stated KELLEY, selected on 10/26/2024 Assigned GA 20 w + 4 d Assigned KELLEY: 03/11/2025 General Evaluation Cardiac activity present. FHR 151 bpm. movements: present. Presentation: cephalic Placenta: Placental site: posterior, fundal Umbilical cord: Cord vessels: 3 vessel cord Amniotic fluid: Amount of AF: normal amount. MVP 6.2 cm Growth Overview Exam date GA BPD (mm) HC (mm) AC (mm) FL (mm) HL (mm) EFW (g) 10/05/2024 17w 4d 40.5 80% 149.7 61% 130.3 80% 26.6 81% 26.8 87% 231 83% 10/26/2024 20w 4d 49.8 70% 188 66% 173 90% 37.1 95% 34.2 85% 459 97% Biometry Standard BPD 49.8 mm 21w 1d 70% Hadlock OFD 66.9 mm 21w 0d 90% Nicolaides HC 188.0 mm 21w 1d 66% Dori Cerebellum tr 22.2 mm 20w 5d 76% Hill Nuchal fold 4.8 mm AC 173.0 mm 22w 2d 90% Hadlock Femur 37.1 mm 22w 0d 95% Dori Humerus 34.2 mm 21w 5d 85% Dori EFW 459 g 21w 5d 97% Hadlock EFW (lb) 1 lb EFW (oz) 0 oz EFW by: Hadlock (HC-AC-FL) Extended Dumper Mold Cleaner 5.6 mm CM 4.0 mm 16% Nicolaides Extremities / Bony Struc FL / HC 0.20 85% Hadlock Other Structures FHR 151 bpm Anatomy Cranium: normal Lateral ventricles: normal Choroid plexus: normal Midline falx: normal Cavum septi pellucidi: normal Cerebellum: normal Cisterna magna: normal Head / Neck Vermis: normal Neck: normal Nuchal fold: normal Lips: normal Profile: normal Nose: normal Face Maxilla: normal Mandible: normal Orbits: normal Lens: normal 4-chamber view: normal RVOT view: normal LVOT view: normal 3-vessel view: normal 8-[id number]-bwibbob view: normal Heart / Thorax Situs: situs solitus (normal) Aortic arch view: normal SVC: normal IVC: normal Cardiac axis: normal Rt lung: normal Lt lung: normal Diaphragm: normal Cord insertion: normal Stomach: normal Kidneys: normal Bladder: normal Genitals: normal Abdomen Abdom. wall: normal Cervical spine: normal Thoracic spine: normal Lumbar spine: normal Sacral spine: normal Arms: normal Legs: normal Rt upper arm: normal Rt forearm: normal Rt hand: normal Rt fingers: normal Lt upper arm: normal Lt forearm: normal Lt hand: normal Lt fingers: normal Rt upper leg: normal Rt lower leg: normal Rt foot: normal Lt upper leg: normal Lt lower leg: normal Lt foot: normal sex: female Wants to know sex: yes Maternal Structures Uterus / Cervix Uterus: Visualized Cervix: Visualized Approach: Transabdominal Cervical length 44.3 mm Other: Patient declined transvaginal ultrasound for cervical length. Ovaries / Tubes / Adnexa Rt ovary: Visualized Lt ovary: Visualized Performed By: Asia Serrano RDMS, RVT Read By: Nava Duran M.D. MATERNAL MEDICINE [facility] Radiology Study observation (narrative) [facility] T4 Free SerPl-mCncon 025 Free T4 [Mass/Vol] 0.7 ng/dL Low 0.9-1.7 [facility] Comment on above: Order Comment: Speci men Type: BLOOD SPECIMENOrdering Facility: [facility] Address: [address] [place] [address] Performed By: #### 3 024-7, 3016-3 ####[facility] [id number] [place] [address] [place] TSH SerPl-aCncon 10-25-2024 TSH Qn 1.960 m[IU]/L Normal 0.270-4.200 [facility] Comment on above: Order Comment: Speci men Type: BLOOD SPECIMENOrdering Facility: [facility] Address: [address] [place] [address] Result Comment: If t he patient is , TSH reference range varies by gestational period: First Trimester (weeks 9-12): 0.180-2.990 mIU/L Second Trimester: 0.110-3.980 mIU/L Third Trimester: 0.480-4.710 mIU/L Yariel Garcia et al. A Practical Approach for the Verifications and Determination of Site- and Trimester-Specific Reference Intervals for Thyroid Function tests in . Thyroid, 2019:29:3:412-420. Juan De Santiago et al. 2017 Guidelines of the [place] Thyroid Association for the Diagnosis and Management of Thyroid Disease during and the . Thyroid, 2017:27:3:315-389. Performed By: #### 3 024-7, 3016-3 ####[facility] [id number] [address] STATES OF [facility] Examination level ultrasound on 10-05-2024 Indication Early anatomic survey. Maternal obesity, BMI >30. History of preeclampsia Impression The patient is referred for an early anatomic survey because of identified risk factors. - Single, live, intrauterine . - biometry is consistent with the established gestational age. - No malformations were visualized on an early anatomic assessment, although some anatomical structures were suboptimally seen as detailed below. - The amniotic fluid volume is normal amount. - The placenta is posterior. - Not all structural malformations can be detected by ultrasound examination. Recommendations - A detailed exam at 20 weeks for increased risk. - Additional follow up as clinically indicated. Maternal Assessment Height 163 cm Height (ft) 5 ft Height (in) 4 in Physical Exam Initial weight (lb) 218 lb Initial BMI 37.42 kg/m Method Transabdominal ultrasound examination Manzo . Number of fetuses: 1 Dating LMP on: 06/04/2024 GA by LMP 17 w + 4 d KELLEY by LMP: 03/11/2025 GA by prior assessment 17 w + 4 d KELLEY by prior assessment: 03/11/2025 Ultrasound examination on: 10/05/2024 GA by U/S based upon: AC, BPD, Femur, HC GA by U/S 18 w + 2 d KELLEY by U/S: 03/06/2025 Assigned: based on stated KELLEY, selected on 08/31/2024 Assigned GA 17 w + 4 d Assigned KELLEY: 03/11/2025 General Evaluation Cardiac activity present. FHR 157 bpm. movements: present. Presentation: transverse head right Placenta: Placental site: posterior Umbilical cord: Cord vessels: 3 vessel cord. Insertion site: normal insertion Amniotic fluid: Amount of AF: normal amount Biometry Standard BPD 40.5 mm 18w 2d 80% Hadlock OFD 53.2 mm 17w 6d 86% Nicolaides HC 149.7 mm 17w 6d 61% Dori Cerebellum tr 17.9 mm 17w 6d 63% Hill Nuchal fold 3.4 mm AC 130.3 mm 18w 4d 80% Hadlock Femur 26.6 mm 18w 1d 81% Dori Humerus 26.8 mm 18w 3d 87% Dori EFW 231 g 18w 1d 83% Hadlock EFW (lb) 0 lb EFW (oz) 8 oz EFW by: Hadlock (HC-AC-FL) Extended Dumper Mold Cleaner 6.3 mm CM 2.8 mm 7% Nicolaides Extremities / Bony Struc FL / HC 0.18 78% Hadlock Other Structures FHR 157 bpm Anatomy Cranium: normal Lateral ventricles: normal Choroid plexus: normal Midline falx: normal Cerebellum: normal Cisterna magna: normal Lips: normal Profile: normal Nose: normal 4-chamber view: normal RVOT view: normal LVOT view: normal 3-vessel view: normal 5-[id number]-ufimmzy view: suboptimally visualized Heart / Thorax Diaphragm: normal Cord insertion: normal Stomach: normal Kidneys: normal Bladder: normal Genitals: visualized Cervical spine: normal Thoracic spine: normal Lumbar spine: suboptimally visualized Sacral spine: suboptimally visualized Arms: normal Hands: suboptimally visualized Legs: normal Feet: normal Rt upper arm: normal Rt forearm: normal Rt hand: normal Lt upper arm: normal Lt forearm: normal Lt hand: suboptimally visualized Rt upper leg: normal Rt lower leg: normal Rt foot: normal Lt upper leg: normal Lt lower leg: normal Lt foot: normal sex: female sex: normal Wants to know sex: yes Maternal Structures Uterus / Cervix Uterus: Visualized Cervical length 46.5 mm Performed By: Ellie Angeles RDMS Read By: Roxana Mcrae MD MATERNAL MEDICINE [facility] Radiology Study observation (narrative) [facility] C. trachomatis+N. gonorrhoea e DNA RODERICK+probe Ql (Unsp spec)on 09-29-2024 C. trachomatis rRNA RODERICK+probe Ql (Unsp spec) Not detected Normal Not detected [facility] Comment on above: Order Comment: Speci men Type: SWABOrdering Facility: [facility] Address: [address] [place] [address] Performed By: #### 3 6902-5, JEROMY ####[facility] [id number] [place] [address] [place] N. gonorrhoeae rRNA RODERICK+probe Ql (Unsp spec) Not detected Normal Not detected [facility] Comment on above: Order Comment: Speci men Type: SWABOrdering Facility: [facility] Address: [address] [place] [address] Performed By: #### 3 6902-5, TRVADANIKA ####[facility] [id number] [place] [address] [place] TRICHOMONAS VAGINALIS NAATon 09-29-2024 T. vaginalis DNA RODERICK+probe Ql (Unsp spec) Not detected Normal Not detected [facility] Comment on above: Order Comment: Speci men Type: SWABOrdering Facility: [facility] Address: [address] [place] [address] Performed By: #### 3 6902-5, TRVADANIKA ####[facility] [id number] [place] [address] [place] T4 Free SerPl-mCncon 025 Free T4 [Mass/Vol] 0.8 ng/dL Low 0.9-1.7 [facility] Comment on above: Order Comment: Speci men Type: BLOOD SPECIMEN [facility] Address: [address] [place] [address] Performed By: #### 3 024-7, 3016-3 #### [facility] CLIA [id number] [address] [place] [address] [place] TSH SerPl-aCncon 09-23-2024 TSH Qn 2.440 m[IU]/L Normal 0.270-4.200 [facility] Comment on above: Order Comment: Speci men Type: BLOOD SPECIMEN [facility] Address: [address] [place] [address] Result Comment: If t he patient is , TSH reference range varies by gestational period: First Trimester (weeks 9-12): 0.180-2.990 mIU/L Second Trimester: 0.110-3.980 mIU/L Third Trimester: 0.480-4.710 mIU/L Yariel Garcia et al. A Practical Approach for the Verifications and Determination of Site- and Trimester-Specific Reference Intervals for Thyroid Function tests in . Thyroid, 2019:29:3:412-420. Juan E, et al. 2017 Guidelines of the [place] Thyroid Association for the Diagnosis and Management of Thyroid Disease during and the . Thyroid, 2017:27:3:315-389. Performed By: #### 3 024-7, 3016-3 #### [facility] CLIA [id number] [address] [place] [address] OF [facility] Examination level ultrasound on 08-31-2024 Indication First trimester anatomic survey History of preeclampsia, Maternal obesity, BMI >35 Impression The patient is referred for a first trimester anatomy scan including nuchal translucency measurement as clinically indicated. - Single, live, intrauterine . - [place] rump length measurement is consistent with the established gestational age. - No malformations visualized on first trimester anatomic assessment. - The nuchal translucency measurement is 1.7 mm. - Not all structural malformations can be detected by ultrasound examination. Maternal Structures: Right Ovary: Size 30 mm x 24 mm x 15 mm Left Ovary: Size 23 mm x 16 mm x 13 mm Recommendations - A standard anatomic survey at 16 weeks can be offered and a detailed exam at 20 weeks is recommended for increased risk. Maternal Assessment Height 163 cm Height (ft) 5 ft Height (in) 4 in Physical Exam Initial weight (lb) 218 lb Initial BMI 37.42 kg/m Maternal assessment other: 2 Para 1 REMOTE READ Method Transabdominal ultrasound examination Manzo . Number of fetuses: 1 Dating LMP on: 06/04/2024 GA by LMP 12 w + 4 d KELLEY by LMP: 03/11/2025 GA by prior assessment 12 w + 4 d KELLEY by prior assessment: 03/11/2025 Ultrasound examination on: 08/31/2024 GA by U/S based upon: CRL GA by U/S 13 w + 0 d KELLEY by U/S: 03/08/2025 Assigned: based on stated KELLEY, selected on 08/31/2024 Assigned GA 12 w + 4 d Assigned KELLEY: 03/11/2025 General Evaluation Cardiac activity present Placenta: posterior Cord vessels: 3 vessel cord Amniotic fluid: normal amount Biometry Standard FHR 168 bpm CRL 67.2 mm 13w 0d 73% Hadlock NT 1.70 mm First Trimester Anatomy Calvarium: normal Falx cerebri: normal Choroid plexus: normal Profile: normal Nasal bone: normal Retronasal triangle: normal Maxilla: suboptimal Mandible: suboptimal Nuchal translucency: Unremarkable Situs: normal Cardiac position: normal Cardiac axis: normal 4-chamber view: visualized 4-chamber view with color: visualized 2-[id number]-[id number] view: normal Abdominal cord insertion: normal Stomach: normal Kidneys: normal Bladder: normal Color doppler of perivesical umbilical arteries: normal Vertebral alignment: normal Arms: normal Hands: normal Legs: normal Feet: normal Maternal Structures Uterus / Cervix Uterus: Visualized Uterus length 147 mm Uterus width 108 mm Uterus height 79 mm Uterus Vol 658.3 cm Ovaries / Tubes / Adnexa Rt ovary: Visualized Rt ovary D1 30 mm Rt ovary D2 24 mm Rt ovary D3 15 mm Rt ovary Vol 5.7 cm Lt ovary: Visualized Lt ovary D1 23 mm Lt ovary D2 16 mm Lt ovary D3 13 mm Lt ovary Vol 2.4 cm Performed By: Asia Serrano RDMS, RVT Read By: Zina Petersen M.D. MATERNAL MEDICINE [facility] Radiology Study observation (narrative) [facility] CBC W Auto Differential pane l (Bld)on 08-29-2024 Basophils (Bld) [#/Vol] 0.06 10*3/uL Normal <0.11 [facility] Comment on above: Order Comment: Speci men Type: BLOOD SPECIMENOrdering Facility: [facility] Address: [address] [place] [address] Performed By: #### 5 7021-8 ####[facility] [id number] [place] [address] [place] Basophils/100 WBC (Bld) 0.5 % Normal [facility] Comment on above: Order Comment: Speci men Type: BLOOD SPECIMENOrdering Facility: [facility] Address: [address] [place] [address] Performed By: #### 5 7021-8 ####[facility] [id number] [place] [address] [place] Differential cell count method Nom (Bld) Auto Normal [facility] Comment on above: Order Comment: Speci men Type: BLOOD SPECIMENOrdering Facility: [facility] Address: [address] [place] [address] Performed By: #### 5 7021-8 ####[facility] [id number] [place] [address] [place] Eosinophils (Bld) [#/Vol] 0.21 10*3/uL Normal <0.46 [facility] Comment on above: Order Comment: Speci men Type: BLOOD SPECIMENOrdering Facility: [facility] Address: [address] [place] [address] Performed By: #### 5 7021-8 ####[facility] [id number] [place] [address] [place] Eosinophils/100 WBC (Bld) 1.7 % Normal [facility] Comment on above: Order Comment: Speci men Type: BLOOD SPECIMENOrdering Facility: [facility] Address: [address] [place] [address] Performed By: #### 5 7021-8 ####[facility] [id number] [place] [address] [place] Erythrocyte distribution width (RBC) [Ratio] 15.5 % High 11.5-15.0 [facility] Comment on above: Order Comment: Speci men Type: BLOOD SPECIMENOrdering Facility: [facility] Address: [address] [place] [address] Performed By: #### 5 7021-8 ####[facility] [id number] [place] [address] [place] Hematocrit (Bld) [Volume fraction] 33.8 % Low 36.0-46.0 [facility] Comment on above: Order Comment: Speci men Type: BLOOD SPECIMENOrdering Facility: [facility] Address: [address] [place] [address] Performed By: #### 5 7021-8 ####[facility] [id number] [place] [address] [place] Hemoglobin (Bld) [Mass/Vol] 11.2 g/dL Low 11.5-15.5 [facility] Comment on above: Order Comment: Speci men Type: BLOOD SPECIMENOrdering Facility: [facility] Address: [address] [place] [address] Performed By: #### 5 7021-8 ####[facility] [id number] [place] [address] [place] Immature granulocytes (Bld) [#/Vol] 0.17 10*3/uL High <0.10 [facility] Comment on above: Order Comment: Speci men Type: BLOOD SPECIMENOrdering Facility: [facility] Address: [address] [place] [address] Performed By: #### 5 7021-8 ####[facility] [id number] [place] [address] [place] Immature granulocytes/100 WBC (Bld) 1.4 % Normal [facility] Comment on above: Order Comment: Speci men Type: BLOOD SPECIMENOrdering Facility: [facility] Address: [address] [place] [address] Performed By: #### 5 7021-8 ####[facility] [id number] [place] [address] [place] Lymphocytes (Bld) [#/Vol] 1.93 10*3/uL Normal 1.00-4.00 [facility] Comment on above: Order Comment: Speci men Type: BLOOD SPECIMENOrdering Facility: [facility] Address: [address] [place] [address] Performed By: #### 5 7021-8 ####[facility] [id number] [place] [address] [place] Lymphocytes/100 WBC (Bld) 15.6 % Normal [facility] Comment on above: Order Comment: Speci men Type: BLOOD SPECIMENOrdering Facility: [facility] Address: [address] [place] [address] Performed By: #### 5 7021-8 ####[facility] [id number] [place] [address] [place] MCH (RBC) [Entitic mass] 25.2 pg Low 26.0-34.0 [facility] Comment on above: Order Comment: Speci men Type: BLOOD SPECIMENOrdering Facility: [facility] Address: [address] [place] [address] Performed By: #### 5 7021-8 ####[facility] [id number] [place] [address] [place] MCHC (RBC) [Mass/Vol] 33.1 g/dL Normal 30.5-36.0 [facility] Comment on above: Order Comment: Speci men Type: BLOOD SPECIMENOrdering Facility: [facility] Address: [address] [place] [address] Performed By: #### 5 7021-8 ####[facility] [id number] [place] [address] [place] MCV (RBC) [Entitic vol] 76.0 fL Low 80.0-100.0 [facility] Comment on above: Order Comment: Speci men Type: BLOOD SPECIMENOrdering Facility: [facility] Address: [address] [place] [address] Performed By: #### 5 7021-8 ####[facility] [id number] [place] [address] [place] Monocytes (Bld) [#/Vol] 0.87 10*3/uL High <0.87 [facility] Comment on above: Order Comment: Speci men Type: BLOOD SPECIMENOrdering Facility: [facility] Address: [address] [place] [address] Performed By: #### 5 7021-8 ####[facility] [id number] [place] [address] [place] Monocytes/100 WBC (Bld) 7.0 % Normal [facility] Comment on above: Order Comment: Speci men Type: BLOOD SPECIMENOrdering Facility: [facility] Address: [address] [place] [address] Performed By: #### 5 7021-8 ####[facility] [id number] [place] [address] [place] Neutrophils (Bld) [#/Vol] 9.17 10*3/uL High 1.45-7.50 [facility] Comment on above: Order Comment: Speci men Type: BLOOD SPECIMENOrdering Facility: [facility] Address: [address] [place] [address] Performed By: #### 5 7021-8 ####[facility] [id number] [place] [id number] [place] Neutrophils/100 WBC (Bld) 73.8 % Normal [facility] Comment on above: Order Comment: Speci men Type: BLOOD SPECIMENOrdering Facility: [facility] Address: [address] [place] [address] Performed By: #### 5 7021-8 ####[facility] [id number] [place] [id number] [place] Nucleated RBC (Bld) [#/Vol] 10*3/uL Normal <0.01 [facility] Comment on above: Order Comment: Speci men Type: BLOOD SPECIMENOrdering Facility: [facility] Address: [address] [place] [address] Performed By: #### 5 7021-8 ####[facility] [id number] [address] [address] [place] Nucleated RBC/100 WBC (Bld) [Ratio] 0.0 /100 WBC Normal [facility] Comment on above: Order Comment: Speci men Type: BLOOD SPECIMENOrdering Facility: [facility] Address: [address] [place] [address] Performed By: #### 5 7021-8 ####[facility] [id number] [place] [address] [place] Platelet mean volume (Bld) [Entitic vol] 9.7 fL Normal 9.0-12.7 [facility] Comment on above: Order Comment: Speci men Type: BLOOD SPECIMENOrdering Facility: [facility] Address: [address] [place] [address] Performed By: #### 5 7021-8 ####[facility] [id number] [place] [address] [place] Platelets (Bld) [#/Vol] 275 10*3/uL Normal 150-400 [facility] Comment on above: Order Comment: Speci men Type: BLOOD SPECIMENOrdering Facility: [facility] Address: [address] [place] [address] Performed By: #### 5 7021-8 ####[facility] [id number] [place] [address] [place] RBC (Bld) [#/Vol] 4.45 10*6/uL Normal 3.90-5.20 [facility] Comment on above: Order Comment: Speci men Type: BLOOD SPECIMENOrdering Facility: [facility] Address: [address] [place] [address] Performed By: #### 5 7021-8 ####[facility] [id number] [place] [address] [place] WBC (Bld) [#/Vol] 12.41 10*3/uL High 3.70-11.00 [facility] Comment on above: Order Comment: Speci men Type: BLOOD SPECIMENOrdering Facility: [facility] Address: [address] [place], [place] [address] Performed By: #### 5 7021-8 ####[facility] [id number] [address] [place] [address] [place] Comprehensive metabolic 2000 panelon 08-29-2024 Albumin [Mass/Vol] 3.7 g/dL Low 3.9-4.9 [facility] Comment on above: Order Comment: Speci men Type: BLOOD SPECIMENOrdering Facility: [facility] Address: [address] [place] [address] Performed By: #### 3 016-3, 24843-9 ####[facility] [id number] [address] [place] [address] [place] ALP [Catalytic activity/Vol] 61 U/L Normal 34-123 [facility] Comment on above: Order Comment: Speci men Type: BLOOD SPECIMENOrdering Facility: [facility] Address: [address] [place], [place] [address] Performed By: #### 3 016-3, 78347-6 ####[facility] [id number] [place] [id number] [place] ALT [Catalytic activity/Vol] 14 U/L Normal 7-38 [facility] Comment on above: Order Comment: Speci men Type: BLOOD SPECIMENOrdering Facility: [facility] Address: [address] [place] [address] Performed By: #### 3 016-3, 42595-7 ####[facility] [id number] [address] [address] [place] Anion gap [Moles/Vol] 11 mmol/L Normal 8-15 [facility] Comment on above: Order Comment: Speci men Type: BLOOD SPECIMENOrdering Facility: [facility] Address: [address] [place], [place] [address] Performed By: #### 3 016-3, ####[facility] [id number] [address] [place] [address] [place] AST [Catalytic activity/Vol] 26 U/L Normal 13-35 [facility] Comment on above: Order Comment: Speci men Type: BLOOD SPECIMENOrdering Facility: [facility] Address: [address] [place] [address] Performed By: #### 3 016-3, ####[facility] [id number] [address] [address] [place] Bilirubin [Mass/Vol] 0.2 mg/dL Normal 0.2-1.3 [facility] Comment on above: Order Comment: Speci men Type: BLOOD SPECIMENOrdering Facility: [facility] Address: [address] [place] [address] Performed By: #### 3 016-3, ####[facility] [id number] [place] [id number] [place] Calcium [Mass/Vol] 8.9 mg/dL Normal 8.5-10.2 [facility] Comment on above: Order Comment: Speci men Type: BLOOD SPECIMENOrdering Facility: [facility] Address: [address] [place] [address] Performed By: #### 3 016-3, ####[facility] [id number] [address] [address] [place] Chloride [Moles/Vol] 103 mmol/L Normal 98-107 [facility] Comment on above: Order Comment: Speci men Type: BLOOD SPECIMENOrdering Facility: [facility] Address: [address] [place] [address] Performed By: #### 3 016-3, ####[facility] [id number] [address] [address] [place] CO2 [Moles/Vol] 21 mmol/L Low 22-30 [facility] Comment on above: Order Comment: Speci men Type: BLOOD SPECIMENOrdering Facility: [facility] Address: [address] [place] [address] Performed By: #### 3 016-3, 94315-3 ####[facility] [id number] [place] [address] [place] Creatinine [Mass/Vol] 0.49 mg/dL Low 0.58-0.96 [facility] Comment on above: Order Comment: Speci men Type: BLOOD SPECIMENOrdering Facility: [facility] Address: [address] [place] [address] Performed By: #### 3 016-3, ####[facility] [id number] [address] [facility] Creatinine and Glomerular filtration rate.predicted panel (S/P/Bld) 133 mL/min/1.73m??? Normal >=60 [facility] Comment on above: Order Comment: Speci men Type: BLOOD SPECIMENOrdering Facility: [facility] Address: [address] [place] [address] Result Comment: Nadya mated Glomerular Filtration Rate (eGFR) is calculated using the 2020 CKD-EPI creatinine equation. This equation utilizes serum creatinine, sex, and age as parameters. The creatinine assay has traceable calibration to isotope dilution-mass spectrometry. Refer to KDIGO guidelines for clinical interpretation. In patients with unstable renal function, e.g. those with acute kidney injury, the eGFR may not accurately reflect actual GFR. Performed By: #### 3 016-3, 82859-8 ####[facility] [id number] [place] [address] [place] Glucose [Mass/Vol] 75 mg/dL Normal 74-99 [facility] Comment on above: Order Comment: Speci men Type: BLOOD SPECIMENOrdering Facility: [facility] Address: [address] [place] [address] Result Comment: The [place] Diabetes Association (ADA) provides guidance for cutoff values for fasting glucose and random glucose. The ADA defines fasting as no caloric intake for at least 8 hours. Fasting plasma glucose results between 100 to 125 mg/dL indicate increased risk for diabetes (prediabetes). Fasting plasma glucose results greater than or equal to 126 mg/dL meet the criteria for diagnosis of diabetes. In the absence of unequivocal hyperglycemia, results should be confirmed by repeat testing. In a patient with classic symptoms of hyperglycemia or hyperglycemic crisis, random plasma glucose results greater than or equal to 200 mg/dL meet the criteria for diagnosis of diabetes. Reference: Standards of Medical Care in Diabetes 2016, [place] Diabetes Association. Diabetes Care. 2016.39(Suppl 1). Performed By: #### 3 016-3, 62363-9 ####[facility] [id number] [place] [address] [place] Potassium [Moles/Vol] 4.1 mmol/L Normal 3.7-5.1 [facility] Comment on above: Order Comment: Speci men Type: BLOOD SPECIMENOrdering Facility: [facility] Address: [address] [place] [address] Performed By: #### 3 016-, 91683-7 ####[facility] [id number] [place] [address] [place] Protein [Mass/Vol] 7.0 g/dL Normal 6.3-8.0 [facility] Comment on above: Order Comment: Speci men Type: BLOOD SPECIMENOrdering Facility: [facility] Address: [address] [place] [address] Performed By: #### 3 016-3, 73501-6 ####[facility] [id number] [place] [address] [place] Sodium [Moles/Vol] 135 mmol/L Low 136-144 [facility] Comment on above: Order Comment: Speci men Type: BLOOD SPECIMENOrdering Facility: [facility] Address: [address] [place] [address] Performed By: #### 3 016-3, 27646-2 ####[facility] [id number] [place] [id number] [place] Urea nitrogen [Mass/Vol] 8 mg/dL Normal 7-21 [facility] Comment on above: Order Comment: Speci men Type: BLOOD SPECIMENOrdering Facility: [facility] Address: [address] [place] [address] Performed By: #### 3 016-3, 27865-8 ####[facility] [id number] [place] [address] [place] HBV surface Ag Ser Qlon 08-03 HBV surface Ag Ql (S) Negative Normal Negative [facility] Comment on above: Order Comment: Speci men Type: BLOOD SPECIMENOrdering Facility: [facility] Address: [address] [place] [address] Performed By: #### 3 1201-7, 5195-3, 26575-2 ####[facility] [id number] [place] [address] [place] HCV Ab Ser Qlon 08-29-2024 HCV Ab Ql (S) Negative Normal Negative [facility] Comment on above: Order Comment: Speci men Type: BLOOD SPECIMENOrdering Facility: [facility] Address: [address] [place] [address] Result Comment: The result suggests no evidence of infection with Hepatitis C virus. Should recent infection be suspected, repeat testing may be considered 4-6 weeks after this draw. Performed By: #### 1 6128-1 ####[facility] [id number] [place] [address] [place] HIV 1+2 Ab IA Qlon HIV 1 and 2 Ab IA.rapid Nom (S/P/Bld) Normal [facility] Comment on above: Order Comment: Speci men Type: BLOOD SPECIMENOrdering Facility: [facility] Address: [address] [place] [address] Result Comment: Test not indicated. Performed By: #### 3 1201-7, 5195-3, 76660-9 ####[facility] [id number] [place] [address] [place] HIV 1+2 Ab+HIV1 p24 Ag IA Ql Non-Reactive Normal Nonreactive [facility] Comment on above: Order Comment: Speci men Type: BLOOD SPECIMENOrdering Facility: [facility] Address: [address] [place] [address] Performed By: #### 3 1201-7, 5195-3, 20888-4 ####[facility] [id number] [place] [address] [place] HIV immunoassay testing algorithm interpretation (S/P/Bld) [Interp] Normal [facility] Comment on above: Order Comment: Speci men Type: BLOOD SPECIMENOrdering Facility: [facility] Address: [address] [place] [address] Result Comment: No e vidence of HIV-1 or HIV-2 infection. Should recent infection be suspected, repeat testing may be considered 2-3 weeks after this draw. [place] Rev. Code 3701.243(E): This information has been disclosed to you from confidential records protected from disclosure by state law. ???You shall make no further disclosure of this information without the specific, written, and informed release of the individual to whom it pertains or as otherwise permitted by state law. A general authorization for the release of medical or other information is not sufficient for the purpose of the release of HIV test results or diagnoses. Performed By: #### 3 1201-7, 5195-3, 69351-6 ####[facility] [id number] [place] [address] [place] HbA1c (Bld)on 08-29-2024 Average glucose Estimated from glycated hemoglobin (Bld) [Mass/Vol] 100 mg/dL Normal [facility] Comment on above: Order Comment: Speci men Type: BLOOD SPECIMENOrdering Facility: [facility] Address: [address] [place] [address] Result Comment: eAG: (Estimated average glucose) is a calculated value from HgbA1c and is escrow representative of the average blood glucose level in the last 2-3 month period. Performed By: #### 5 5454-3 ####[facility] [id number] [facility] [address] [address] [place] HbA1c (Bld) [Mass fraction] 5.1 % Normal 4.3-5.6 [facility] Comment on above: Order Comment: Speci men Type: BLOOD SPECIMENOrdering Facility: [facility] Address: [address] [place] [address] Result Comment: [place] Diabetes Association guidelines indicate that patients with HgbA1c in the range 5.7-6.4% are at increased risk for development of diabetes, and intervention by lifestyle modification may be beneficial. HgbA1c greater or equal to 6.5% is considered diagnostic of diabetes. Performed By: #### 5 5454-3 ####[facility] [id number] [place] [id number] [place] Prot/Creat Uron 08-29-2024 Protein/Creatinine (U) [Mass ratio] 0.31 mg/mg High <0.15 [facility] Comment on above: Order Comment: Speci men Type: URINE SPECIMENOrdering Facility: [facility] Address: [address] [place] [address] Result Comment: Adul t Proteinuria Categories: <0.15 mg/mg is considered normal to mildly increased 0.15 - 0.50 mg/mg is considered moderately increased >0.50 mg/mg is considered severely increased KDIGO. (2013). KDIGO 2012 Clinical Practice Guideline for the Evaluation and Management of Chronic Kidney Disease. Official Journal of the International Society of Nephrology, 3(1), 1-150. Performed By: #### 2 890-2 ####[facility] [id number] [place] [id number] [place] Protein/Creatinine (U) [Mass ratio]on 08-29-2024 Creatinine (U) [Mass/Vol] 293.9 mg/dL Normal 20.0-300.0 [facility] Comment on above: Order Comment: Speci men Type: URINE SPECIMENOrdering Facility: [facility] Address: [address] [place] [address] Performed By: #### 2 890-2 ####[facility] [id number] [place] [address] [place] Protein (U) [Mass/Vol] 91 mg/dL High 0-20 [facility] Comment on above: Order Comment: Speci men Type: URINE SPECIMENOrdering Facility: [facility] Address: [address] [place] [address] Performed By: #### 2 890-2 ####[facility] [id number] [place] [address] [place] RUBELLA IGG ANTIBODYon 08-29 RUBELLA IGG AB, QUAL Negative Abnormal Positive [facility] Comment on above: Order Comment: Speci men Type: BLOOD SPECIMEN [facility]ing Facility: [facility] Address: [address] [place] [address] Result Comment: The result suggests no history of Rubella vaccination or exposure to Rubella virus, however, some individuals with past history of Rubella vaccination may test negative using this test as immunity to Rubella virus wanes over time after vaccination. Please correlate with vaccination history if applicable. Performed By: #### R UBIGG #### [facility] CLIA [id number] [address] [place] [address] [place] Reagin and Treponema pallidu m IgG and IgM [Interp]on 08-29-2024 T. pallidum IgG+IgM IA Ql (S) Non-Reactive Normal Nonreactive [facility] Comment on above: Order Comment: Speci men Type: BLOOD SPECIMENOrdering Facility: [facility] Address: [address] [place] [address] Performed By: #### 3 1201-7, 5195-3, 36945-9 ####[facility] [id number] [place] [id number] [place] Reagin+T pallidum IgG+IgM Se rPl-Impon 08-29-2024 Reagin and Treponema pallidum IgG and IgM [Interp] Cannot exclude recent Treponemal infection if specimen collected within 7-10 days after appearance of suspect lesions or 2-3 weeks after an exposure. Clinical correlation is required. Normal [facility] Comment on above: Order Comment: Speci men Type: BLOOD SPECIMENOrdering Facility: [facility] Address: [address] [place] [address] Performed By: #### 3 1201-7, 5195-3, 52376-5 ####[facility] [id number] [address] [place] TSH SerPl-aCncon 08-29-2024 TSH Qn 1.840 m[IU]/L Normal 0.270-4.200 [facility] Comment on above: Order Comment: Speci men Type: BLOOD SPECIMENOrdering Facility: [facility] Address: [address] [place] [address] Result Comment: If t he patient is , TSH reference range varies by gestational period: First Trimester (weeks 9-12): 0.180-2.990 mIU/L Second Trimester: 0.110-3.980 mIU/L Third Trimester: 0.480-4.710 mIU/L Yariel Garcia et al. A Practical Approach for the Verifications and Determination of Site- and Trimester-Specific Reference Intervals for Thyroid Function tests in . Thyroid, 2019:29:3:412-420. Juan E, et al. 2017 Guidelines of the [place] Thyroid Association for the Diagnosis and Management of Thyroid Disease during and the . Thyroid, 2017:27:3:315-389. Performed By: #### 3 016-3, 57353-2 ####[facility] [id number] [place] [id number] [facility] OF [place] TYPE + SCREEN PRENATALon ABO A Normal [facility] Comment on above: Order Comment: Speci men Type: BLOOD SPECIMEN [facility] Address: [address] [place] [address] Performed By: #### 3 024-7, 3016-3 #### [facility] CLIA [id number] [address] [place] [address] [place] Rh Nom (Bld) Positive Normal [facility] Comment on above: Order Comment: Speci men Type: BLOOD SPECIMEN [facility] Address: [address] [place] [address] Performed By: #### 3 024-7, 3016-3 #### [facility] CLIA [id number] [address] [place] [address] TYPE AND SCREEN EXPIRATION 09/01/2024 23:59 Normal [facility] Comment on above: Order Comment: Speci men Type: BLOOD SPECIMEN [facility] Address: [address] [place] [address] Performed By: #### 3 024-7, 3016-3 #### [facility] CLIA [id number] [address] [place] [address] OF ART CNPNon 08-02-2024 [id number] JANET FRANK ([id number]) 2000 F T Date Time Provider Department 08/02/24 STEFFANIE NEELY [id number] During your visit today, we recorded the following information about you: Steffanie Neely, VENKATESH 08/02/2024 12:41 PM Signed 1st risk assessment form submitted 08/02/2024. 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 - aspirin, enteric coated (ECOTRIN LOW STRENGTH) 81 mg EC tablet Take 1 tablet by mouth once daily. - VIT 2-RXUW-MQPXO-DHA ORAL Take by mouth. - diphenhydramine HCl (UNISOM, DIPHENHYDRAMINE, ORAL) Take by mouth as needed. - pyridoxine, vitamin B6, (VITAMIN B-6) 25 mg tablet Take 25 mg by mouth once daily. - ondansetron (ZOFRAN) 4 mg tablet Take 1 tablet by mouth every 8 hours as needed for nausea/vomiting. - busPIRone 30 mg tablet Take 1 tablet by mouth two times a day. - sertraline (ZOLOFT) 50 mg tablet Take 1 tablet by mouth once daily. - levothyroxine (SYNTHROID) 50 mcg tablet Take 1 tablet by mouth once daily. - esomeprazole (NEXIUM) 40 mg capsule Take 1 capsule by mouth twice daily. 1/2 hr before meal. Problem List As Of Date 08/02/2024 Noted Resolved Hypothyroidism [E03.9] 03/08/2012 Menorrhagia [N92.0] 03/08/2012 11/10/2023 Abdominal pain, other specified site [R10.9] 07/26/2013 11/10/2023 Physical exam [Z00.00] 07/23/2016 10/12/2017 Altered bowel habits [R19.4] 09/30/2017 GERD (gastroesophageal reflux disease) [K21.9] 10/12/2017 Non morbid obesity [E66.9] 10/12/2017 Blood in stool [K92.1] 07/30/2020 11/10/2023 Adenomyosis of the uterus [N80.03] 11/19/2023 Nausea and vomiting during [O21.9] 07/20/2024 6 weeks gestation of [Z3A.01] 07/20/2024 History of hemorrhage [Z87.59] 08/01/2024 Hx of preeclampsia, prior , currently *08/01/2024 Encounter for supervision of normal intrauterin*08/01/2024 BMI 38.0-38.9,adult [Z68.38] 08/01/2024 Encounter Status:Closed by STEFFANIE NEELY on 08/02/24 [facility] JANET FR[facility] ([id number]) 2000 F CHT Date Time Provider Department 08/02/24 ELAYNE SEVERINO OBGYWM During your visit today, we recorded the following information about you: Steffanie Lozada RN 08/02/2024 12:03 PM Signed 8w3d Patient viewed +Trich on Mychart. Asking if this could harm her baby. Please review result and advise. VENKATESH Lemons Renee, BUD.CIERRA 08/02/2024 12:34 PM Signed Flagyl sent. If STDs are left untreated there is small chance that is can lead to miscarriage. Does she need partner treatment? Elayne Severino, BUD.Asia Fuller RN 08/02/2024 1:12 PM Signed Patient notified and is requesting EPT. Expedited Partner Therapy (EPT) EPT is being prescribed today to the patient?s partner(s) as the following conditions have been met: The intended recipient is a sexual partner of Janet Frank. Janet Frank has been diagnosed with trichomoniasis. Janet Cortez Zac reports that sexual partner is unable or unlikely to be evaluated or treated by a health professional. EPT is being prescribed for no more than two sexual partners. Janet Frank's sexual partner(s) have been contacted: Yes Sexual partner(s) have been informed that he or she may have been exposed to trichomoniasis. Sexual partner(s) have been encouraged to seek treatment and testing from a healthcare professional. Treatment options available have been explained. Please file pended EPT order. VENKATESH Gutierrez Lindsey, RN 08/02/2024 1:08 PM Signed Expedited Partner Treatment Trichomonas: Guide for Partners who Receive Metronidazole Why am I getting this prescription or medication? Trichomonas is a sexually transmitted infection (STI). Although some patients with trichomonas experience symptoms, many do not have any signs or symptoms. Symptoms of trichomonas can include: pain or burning when you pee, fluid/discharge from the vagina, penis, or rectum that smells or looks strange, or pain with sex. You can give trichomonas to others you have sex with; so, it is important to get treatment. Untreated trichomonas can lead to worsening symptoms and a higher chance of getting HIV. It is important to complete the entire treatment for this infection. What is the treatment for trichomonas? The prescription you are given today is for an oral antibiotic called metronidazole. Do NOT take this antibiotic if you have a severe allergy to metronidazole. This antibiotic can be taken with food to help prevent an upset stomach. Side effects can include nausea, vomiting, abdominal pain, diarrhea, metallic taste, and headache. If you experience any symptoms of an allergic reaction such as trouble breathing, chest tightness, closing of the throat, swelling of the lips or tongue, and itchy bumps on your skin, seek medical attention right away. What else should I do? Do not have sex for at least 7 days after you AND your sexual partner have been treated. See a healthcare provider for additional testing for other STIs, including HIV and syphilis. It is important to be tested for other STIs because this medication will only treat trichomonas. Using condoms correctly and consistently during sex is the best way to prevent other STIs. Elayne Severino APRN.CNP 08/02/2024 1:56 PM Signed Rx sent. Elayne Severino APRN.CNP Allergies As of Date: 08/02/2024 (No Known Allergies) Date Reviewed: 08/01/2024 Reviewed by: Tammy Duke LPN - Fully Assessed Reason for Visit: Patient Question [1407] Primary Visit Diagnosis:Trichomoniasis [A59.9] Order(s):metroNIDAZOLE (FLAGYL) 500 mg tabletTake 1 tablet by mouth two times a day for 7 days.Disp: 14 tabletRfl: 0 EXPEDITED PARTNER TREATMENT [[id number]] Order #: [id number]: 1 metroNIDAZOLE (FLAGYL) 500 mg tabletTake 1 tablet by mouth two times a day for 7 days.Disp: 14 tabletRfl: 0 Prescriptions as of 08/02/2024 - metroNIDAZOLE (FLAGYL) 500 mg tablet Take 1 tablet by mouth two times a day for 7 days. - metroNIDAZOLE (FLAGYL) 500 mg tablet Take 1 tablet by mouth two times a day for 7 days. - aspirin, enteric coated (ECOTRIN LOW STRENGTH) 81 mg EC tablet Take 1 tablet by mouth once daily. - VIT 5-VXPZ-SENSO-DHA ORAL Take by mouth. - diphenhydramine HCl (UNISOM, DIPHENHYDRAMINE, ORAL) Take by mouth as needed. - pyridoxine, vitamin B6, (VITAMIN B-6) 25 mg tablet Take 25 mg by mouth once daily. - ondansetron (ZOFRAN) 4 mg tablet Take 1 tablet by mouth every 8 hours as needed for nausea/vomiting. - busPIRone 30 mg tablet Take 1 tablet by mouth two times a day. - sertraline (ZOLOFT) 50 mg tablet Take 1 tablet by mouth once daily. - levothyroxine (SYNTHROID) 50 mcg tablet Take 1 tablet by mouth once daily. - esomeprazole (NEXIUM) 40 mg capsule Take 1 capsule by mouth twice daily. 1/2 hr before meal. P (more content not included)... Normal [facility] Bacteria Ur Culton Bacteria identified Cx Nom (U) ORGANISM ID: 1 >=100,000 CFU/ml Normal urogenital pineda Normal [facility] Comment on above: Performed By: #### 6 ####[facility] [id number] [place] [address] [place] C. trachomatis+N. gonorrhoea e DNA RODERICK+probe Ql (Unsp spec)on 08-01-2024 C. trachomatis rRNA RODERICK+probe Ql (Unsp spec) Not detected Normal Not detected [facility] Comment on above: Order Comment: Speci men Type: SWABOrdering Facility: [facility] Address: [address] [place] [address] Performed By: #### 3 6902-5, TRVAMP ####[facility] [id number] [address] [place] N. gonorrhoeae rRNA RODERICK+probe Ql (Unsp spec) Not detected Normal Not detected [facility] Comment on above: Order Comment: Speci men Type: SWABOrdering Facility: [facility] Address: [address] [place] [address] Performed By: #### 3 6902-5, TRVAMP ####[facility] [id number] [address] [place] POC JUNIOR ORACLE DBA ULTRASOUNDon 08-02-19 Indication Confirmation of intrauterine . Confirmation of cardiac activity. Estimation of gestational age Impression cardiac activity is visualized, CRL is appropriate for clinical dates, corresponding to KELLEY 03/11/25 Recommendations Follow up for 1st Trimester Anatomy with Nuchal Translucency as clinically indicated if desired. Method Transvaginal ultrasound examination. View: Adequate visualization Manzo . Number of embryos: 1 Dating LMP on: 06/04/2024 GA by LMP 8 w + 2 d KELLEY by LMP: 03/11/2025 Ultrasound examination on: 08/01/2024 GA by U/S based upon: CRL GA by U/S 8 w + 0 d KELLEY by U/S: 03/13/2025 Assigned: based on the LMP, selected on 08/01/2024 Assigned GA 8 w + 2 d Assigned KELLEY: 03/11/2025 Biometry Standard FHR 182 bpm CRL 16.4 mm 8w 0d 46% Hadlock Assessment Gestational sac: visualized Location: intrauterine Yolk sac: visualized Embryo: visualized CRL 16.4 mm 8w 0d 46% Hadlock Cardiac activity: present FHR 182 bpm Maternal Structures BMI 38 General Evaluation Cardiac activity present. FHR 182 bpm Performed By: Elayne Severino CNP Read By: Elayne Severino CNP MATERNAL MEDICINE [facility] Radiology Study observation (narrative) [facility] TRICHOMONAS VAGINALIS NAATon 08-01-2024 T. vaginalis DNA RODERICK+probe Ql (Unsp spec) Detected Abnormal Not detected [facility] Comment on above: Order Comment: Speci men Type: SWABOrdering Facility: [facility] Address: [address] [place] [address] Performed By: #### 3 6902-5, TRVAMP ####[facility] [id number] [facility] OF [place] CNPNon 07-25-2024 CNPN Telephone (OBGYWM) -- JANET FRANK ([id number]) 2000 F CHT Date Time Provider Department 07/25/24 ELAYNE SEVERINO During your visit today, we recorded the following information about you: Xavier Currie, RN 07/25/2024 4:16 PM Signed Left message for patient to return phone call to complete nurse intake questions for her upcoming appointment. Patient has an appointment with Elayne Severino for NOB appointment. Allergies As of Date: 07/25/2024 (No Known Allergies) Date Reviewed: 05/13/2024 Reviewed by: Sonia Tamayo LPN - Fully Assessed Reason for Visit: Future Appointment [256] Prescriptions as of 08/02/2024 - aspirin, enteric coated (ECOTRIN LOW STRENGTH) 81 mg EC tablet Take 1 tablet by mouth once daily. - VIT 1-GZRO-TBKJK-DHA ORAL Take by mouth. - diphenhydramine HCl (UNISOM, DIPHENHYDRAMINE, ORAL) Take by mouth as needed. - pyridoxine, vitamin B6, (VITAMIN B-6) 25 mg tablet Take 25 mg by mouth once daily. - ondansetron (ZOFRAN) 4 mg tablet Take 1 tablet by mouth every 8 hours as needed for nausea/vomiting. - busPIRone 30 mg tablet Take 1 tablet by mouth two times a day. - sertraline (ZOLOFT) 50 mg tablet Take 1 tablet by mouth once daily. - levothyroxine (SYNTHROID) 50 mcg tablet Take 1 tablet by mouth once daily. - esomeprazole (NEXIUM) 40 mg capsule Take 1 capsule by mouth twice daily. 1/2 hr before meal. Problem List As Of Date 07/25/2024 Noted Resolved Hypothyroidism [E03.9] 03/08/2012 Menorrhagia [N92.0] 03/08/2012 11/10/2023 Abdominal pain, other specified site [R10.9] 07/26/2013 11/10/2023 Physical exam [Z00.00] 07/23/2016 10/12/2017 Altered bowel habits [R19.4] 09/30/2017 GERD (gastroesophageal reflux disease) [K21.9] 10/12/2017 Non morbid obesity [E66.9] 10/12/2017 Blood in stool [K92.1] 07/30/2020 11/10/2023 Adenomyosis of the uterus [N80.03] 11/19/2023 Nausea and vomiting during [O21.9] 07/20/2024 6 weeks gestation of [Z3A.01] 07/20/2024 Encounter Status:Closed by XAVIER CURRIE on 08/02/24 [facility]22[facility]20[facility] JANET FR[facility] ([id number]) 2000 F T Date Time Provider Department 07/22/24 [facility] During your visit today, we recorded the following information about you: Karis Hess LPN 07/22/2024 9:20 AM Signed Patient called to asking if she should continue taking the Linzess as she is 7 weeks . OB suggested that there maybe something else that she can try that is much safer. Genie Jackson MD 07/22/2024 9:30 AM Signed Needs office visit to discuss options MD Edi Byrd Amanda, RN 07/22/2024 9:40 AM Signed Pt was scheduled today with Dr Jackson for a VV to discuss medication options. Allergies As of Date: 07/22/2024 (No Known Allergies) Date Reviewed: 05/13/2024 Reviewed by: Sonia Tamayo LPN - Fully Assessed Reason for Visit: Medication Problem [65] Prescriptions as of 07/22/2024 - diphenhydramine HCl (UNISOM, DIPHENHYDRAMINE, ORAL) Take by mouth as needed. - pyridoxine, vitamin B6, (VITAMIN B-6) 25 mg tablet Take 25 mg by mouth once daily. - ondansetron (ZOFRAN) 4 mg tablet Take 1 tablet by mouth every 8 hours as needed for nausea/vomiting. - tiZANidine (ZANAFLEX) 4 mg tablet Take 1 tablet by mouth every 8 hours as needed (muscle spasms). - busPIRone 30 mg tablet Take 1 tablet by mouth two times a day. - sertraline (ZOLOFT) 50 mg tablet Take 1 tablet by mouth once daily. - levothyroxine (SYNTHROID) 50 mcg tablet Take 1 tablet by mouth once daily. - LINZESS 145 mcg capsule Take 1 capsule by mouth once daily. - esomeprazole (NEXIUM) 40 mg capsule Take 1 capsule by mouth twice daily. 1/2 hr before meal. Problem List As Of Date 07/22/2024 Noted Resolved Hypothyroidism [E03.9] 03/08/2012 Menorrhagia [N92.0] 03/08/2012 11/10/2023 Abdominal pain, other specified site [R10.9] 07/26/2013 11/10/2023 Physical exam [Z00.00] 07/23/2016 10/12/2017 Altered bowel habits [R19.4] 09/30/2017 GERD (gastroesophageal reflux disease) [K21.9] 10/12/2017 Non morbid obesity [E66.9] 10/12/2017 Blood in stool [K92.1] 07/30/2020 11/10/2023 Adenomyosis of the uterus [N80.03] 11/19/2023 Nausea and vomiting during [O21.9] 07/20/2024 6 weeks gestation of [Z3A.01] 07/20/2024 Encounter Status:Closed by LELA DALEY on 07/22/24 Normal [facility] CNOVon 07-20-2024 CNOV Office Visit (OBGYWM ) -- JANET FRANK ([id number]) 2000 F CHT Date Time Provider Department 07/20/24 1:00 PM ROXANA FRY OBGYWM During your visit today, we recorded the following information about you: Blood pressure Weight Last Period 112/64 99.2 kg 06/04/24 Roxana Fry APRN.CNM 07/20/2024 1:31 PM Signed Janet Frank is a 24 year old female who presents for problem visit missed menses LMP 06/04/2024, reported nausea/vomiting. Patient is 6w4d. Patient stated for the past 2 weeks she has had nausea and emesis daily. Taking vitamin B6 and Unisom for the past week without relief. Stated has emesis 3-4 times a day and has not been able to eat for the past 2 days. Able to sip and hold gatorade down. Not able to drink water. NOB scheduled for next week. OB History Gravida1 Para1 Term1 Preterm0 AB0 Living1 SAB0 IAB0 Ectopic0 Multiple0 Live Births1 Comment: 1 son, vaginal on 03/27/17. Had Preeclampsia was induced at 39 weeks. had BM in her. Also had to receive transfusion after due to CBC of 3. Surface Supply Breathing Apparatus History LMP: 05/13/2024 (Exact Date), Having periods Age at Menarche: Age at First : Age at Menopause: Surface Supply Breathing Apparatus History Comments: Sexual Activity: Yes; Male Contraception: Not used PAST MEDICAL HISTORY Diagnosis Date Adenomyosis of the uterus Anxiety and depression [facility], Dr. Jimenez Excessive or frequent menstruation Heavy periods, resolved with OCP GERD (gastroesophageal reflux disease) Hypothyroid Obesity, Class II, BMI 35-39.9 PAST SURGICAL HISTORY Procedure Laterality Date COLONOSCOPY FLX DX W/COLLJ SPEC WHEN PFRMD 10/14/2017 Colonoscopy ESOPHAGOGASTRODUODENOSCOPY TRANSORAL DIAGNOSTIC 10/14/2017 EGD FAMILY HISTORY Problem Relation Age of Onset other (does not know biological father) Father Diabetes Maternal Grandmother Hypertension Maternal Grandmother Lipids Maternal Grandfather Hypertension Maternal Grandfather Heart Maternal Uncle Breast Cancer No Family History Colon Cancer No Family History Uterine Cancer No Family History Ovarian cancer No Family History Social History Tobacco Use Smoking status: Former Current packs/day: 0.00 Average packs/day: 0.5 packs/day for 8.3 years (4.1 ttl pk-yrs) Types: Cigarettes Start date: 05/04/2012 Quit date: 08/20/2020 Years since quittin.9 Passive exposure: Never Smokeless tobacco: Never Tobacco comments: Vapes Vaping Use Vaping status: current everyday user Substances: Nicotine Substance Use Topics Alcohol use: No Drug use: Not Currently Types: Marijuana Current Outpatient Medications Medication Sig tiZANidine (ZANAFLEX) 4 mg tablet Take 1 tablet by mouth every 8 hours as needed (muscle spasms). busPIRone 30 mg tablet Take 1 tablet by mouth two times a day. sertraline (ZOLOFT) 50 mg tablet Take 1 tablet by mouth once daily. levothyroxine (SYNTHROID) 50 mcg tablet Take 1 tablet by mouth once daily. LINZESS 145 mcg capsule Take 1 capsule by mouth once daily. esomeprazole (NEXIUM) 40 mg capsule Take 1 capsule by mouth twice daily. 1/2 hr before meal. No current facility-administered medications for this visit. Allergies As of Date: 07/20/2024 (No Known Allergies) Fully Assessed 05/13/2024 REVIEW OF SYSTEMS Abdomen: POSITIVE FOR NAUSEA/ EMESIS daily Bladder: No dysuria, gross hematuria, urinary frequency, urinary urgency, or incontinence. Breast: No breast lumps, nipple d/c, overlying skin changes, redness or skin retraction. Expanded ROS: N/A Allergies and current medication updated:Yes SENSITIVE EXAM: Sensitive exam not performed. EXAM: LMP 05/13/2024 GENERAL: pleasant, female in no apparent distress HEENT: Normocephalic and atraumatic NECK: Supple DERMATOLOGY: Normal ASSESSMENT AND PLAN: Assessment AND Plan Missed menses Orders: UA DIP,URINE HCG (POC) Nausea and vomiting during 6 weeks gestation of - Urine HCG - positive - Initially was ordering Reglan but interaction with patient's current medications - Rx Zofran 4 mg PO every 8 hours as needed for nausea - Continue taking in fluids - Notify office if unable to keep liquids down for 24 hours - RTO 1 week for NOGERMAN Britt Courtney, APRN.CNM 07/20/2024 1:22 PM Signed MORNING SICKNESS IN by Bev Horowitz M.D. for [employer] As you may already know, morning sickness can often be more appropriately called evening sickness or stdqd-oskvou-ya-the-day sickness. While there are the bautista few, most women (50-90%) experience some degree of nausea, some have vomiting, and a few develop a severe form of vomiting during called hyperemesis gravidarum. What causes the nausea and vomiting of ? We (more content not included)... Normal [facility] UA DIP,URINE HCG (POC)on Beta HCG ( test) Ql (U) Positive Abnormal Negative [facility] Comment on above: Location:[facility], [address], [place], [address] Interpretation and review of laboratory results Abnormal [facility] Creative Services Specialist (POCT) Internal QC OK [facility] Location:[facility], [address], [place], [address] [facility] POINT OF CARE [facility] CNCOon 07-06-2024 CNCO Letter Text Normal [facility] CNCOon 06-27-2024 CNCO Letter Text Normal [facility] CNPNon 06-20-2024 [facility] Telephone (FAMPWS) -- JANET FRANK ([id number]) 2000 F [facility] Date Time Provider Department 06/20/24 IVELISSE NG [facility] During your visit today, we recorded the following information about you: Tamanna Amaro LPN 06/20/2024 3:14 PM Signed Pt calls to report at appt 06/15/24 that medications were changed. Buspar was increased to 30 mg bid from 15 mg tid. Pt is asking if she should still take 15 mg -2 tabs bid or is there 30 mg tabs. Also pt was advised to stop Prozac and start Zoloft 50 mg. Pt reports she felt sad for the first couple of days but seems to be fine now. Pt has a f/u 06/27/24. Please review and advise. BENEDICT Espinoza Ashley, APRN.SENIOR ELECTRONICS ENGINEER 06/20/2024 3:35 PM Signed Can you please call the patient back and let her know that she may use up her BuSpar 15 mg tablets, she may take 2 tablets twice daily which equals the 30 mg BID. If she needs an updated prescription I can send in one to her preferred pharmacy. Thank you Ivelisse Ng APRN.Jossy Ramirez LPN 06/20/2024 3:53 PM Signed Patient notified of recommendations, verbalizes understanding of instructions. Pt stated she needs a new Rx for 30 mg Buspar sent to [facility]. BENEDICT Reynoso Ashley, APRN.CIERRA 06/20/2024 3:55 PM Signed The following approved medication requests have been transmitted electronically. Requested Prescriptions Signed Prescriptions Disp Refills busPIRone 30 mg tablet 60 tablet 5 Sig: Take 1 tablet by mouth two times a day. Authorizing Provider: IVELISSE NG APRN.SENIOR ELECTRONICS ENGINEER Allergies As of Date: 06/20/2024 (No Known Allergies) Date Reviewed: 05/13/2024 Reviewed by: Sonia Tamayo LPN - Fully Assessed Reason for Visit: patient medication question [Other] Primary Visit Diagnosis:Anxiety with depression [F41.8] Order(s):busPIRone 30 mg tabletTake 1 tablet by mouth two times a day.Disp: 60 tabletRfl: 5 Prescriptions as of 06/20/2024 - busPIRone 30 mg tablet Take 1 tablet by mouth two times a day. - sertraline (ZOLOFT) 50 mg tablet Take 1 tablet by mouth once daily. - tiZANidine (ZANAFLEX) 4 mg tablet Take 1 tablet by mouth every 8 hours as needed (muscle spasms). - levothyroxine (SYNTHROID) 50 mcg tablet Take 1 tablet by mouth once daily. - LINZESS 145 mcg capsule Take 1 capsule by mouth once daily. - esomeprazole (NEXIUM) 40 mg capsule Take 1 capsule by mouth twice daily. 1/2 hr before meal. Problem List As Of Date 06/20/2024 Noted Resolved Hypothyroidism [E03.9] 03/08/2012 Menorrhagia [N92.0] 03/08/2012 11/10/2023 Abdominal pain, other specified site [R10.9] 07/26/2013 11/10/2023 Physical exam [Z00.00] 07/23/2016 10/12/2017 Altered bowel habits [R19.4] 09/30/2017 GERD (gastroesophageal reflux disease) [K21.9] 10/12/2017 Non morbid obesity [E66.9] 10/12/2017 Blood in stool [K92.1] 07/30/2020 11/10/2023 Adenomyosis of the uterus [N80.03] 11/19/2023 Prescriptions ordered this encounter Disp Refills Start End BUSPIRONE 30 MG TABLET 60 t* 5 06/20/2024 12/17/2024 Route: ORAL Sig: Take 1 tablet by mouth two times a day. Medications Discontinued During This Encounter Prescriptions - busPIRone (BUSPAR) 15 mg tablet (Discontinued) Take 1 tablet by mouth three times a day. Encounter Status:Closed by IVELISSE NG on 06/20/24 Normal [facility] CNOVon 05-13-2024 CNOV Office Visit (FAMPWS ) -- JANET FRANK ([id number]) 2000 F T Date Time Provider Department 05/13/24 1:40 PM TERRELL CLOUD During your visit today, we recorded the following information about you: Temperature Pulse Respiration Blood pressure 99 degrees 72/minute 16/minute 121/78 Weight 93.4 kg Terrell Cloud APRN.SENIOR ELECTRONICS ENGINEER 05/13/2024 1:47 PM Signed Chief Complaint Patient presents with: Headache: X 1 week with sinus pressure HPI Janet Frank is a 24 year old female who presents here today for Above Complaints. . Here with complaints of a headache. Intermittent for 1 week. No fevers, chills, nausea, vomiting, or visual changes. No trauma that preceded the complaint. URI a few weeks ago but resolved. Location of pain is her forehead and temples, radiating around to the base of her neck . No syncope. She has a history of headaches, migraines in the past. She has been taking Excedrin with some success. Past medical history, appointments, medications, allergies reviewed. EXAM: BP 121/78 Pulse 72 Temp 37.2 ?C (99 ?F) Resp 16 Wt 93.4 kg (206 lb) LMP 05/13/2024 (Exact Date) SpO2 97% BMI 35.60 kg/m? General Appearance: Well appearing, alert, in no acute distress, well-hydrated, well nourished.. Head: Normocephalic, no masses, lesions, tenderness or abnormalities. Eyes: Anicteric sclera. Pupils are equally round and reactive to light. Extraocular movements are intact. . Nose/Sinuses: Nares normal, septum midline, mucosa normal, no drainage or sinus tenderness. Oropharynx: Lips, mucosa, and tongue normal, teeth and gums normal, oropharynx normal. Neck: Supple, no adenopathy; thyroid symmetric, normal size M/S: Mild bilateral upper trapezius tenderness. Lungs: Lungs clear to auscultation. No wheezing, rhonchi, rales.. Heart: RRR without murmur, gallop, or rubs. No ectopy. Neurologic: Gait normal. Reflexes normal and symmetric. Sensation grossly intact.. ASSESSMENT/PLAN: 1. Tension headache - ICD9: 307.81, ICD10: G44.209 - Migraine like headache. She has had in the past which was successfully treated with tizanidine. Add prednisone taper to break headache cycle. Return next week if not improving or worsening. - TIZANIDINE 4 MG TABLET - PREDNISONE 10 MG TABLET Terrell Cloud APRN.SENIOR ELECTRONICS ENGINEER This note was partly generated using Gatheredtable voice recognition dictation and may contain some misspelled or inaccurate words missed on review. Allergies As of Date: 05/13/2024 (No Known Allergies) Date Reviewed: 05/13/2024 Reviewed by: Sonia Tamayo LPN - Fully Assessed Reason for Visit: Headache [52] Cmt: X 1 week with sinus pressure Primary Visit Diagnosis:Tension headache [G44.209] Order(s):tiZANidine (ZANAFLEX) 4 mg tabletTake 1 tablet by mouth every 8 hours as needed (muscle spasms).Disp: 30 tabletRfl: 1 predniSONE (DELTASONE) 10 mg tabletTake 4 tabs daily for 3 days, then 2 tabs daily for 3 days, then 1 tab daily for 3 days with food.Disp: 21 tabletRfl: 0 Prescriptions as of 05/13/2024 - tiZANidine (ZANAFLEX) 4 mg tablet Take 1 tablet by mouth every 8 hours as needed (muscle spasms). - predniSONE (DELTASONE) 10 mg tablet Take 4 tabs daily for 3 days, then 2 tabs daily for 3 days, then 1 tab daily for 3 days with food. - levothyroxine (SYNTHROID) 50 mcg tablet Take 1 tablet by mouth once daily. - busPIRone (BUSPAR) 15 mg tablet Take 1 tablet by mouth three times a day. - FLUoxetine (PROZAC) 40 mg capsule Take 1 capsule by mouth once daily. Take along with additional 20 mg capsule - LINZESS 145 mcg capsule Take 1 capsule by mouth once daily. - FLUoxetine (PROZAC) 20 mg capsule Take 1 capsule by mouth once daily. Take along with additional 40 mg capsule - esomeprazole (NEXIUM) 40 mg capsule Take 1 capsule by mouth twice daily. 1/2 hr before meal. Problem List As Of Date 05/13/2024 Noted Resolved Hypothyroidism [E03.9] 03/08/2012 Menorrhagia [N92.0] 03/08/2012 11/10/2023 Abdominal pain, other specified site [R10.9] 07/26/2013 11/10/2023 Physical exam [Z00.00] 07/23/2016 10/12/2017 Altered bowel habits [R19.4] 09/30/2017 GERD (gastroesophageal reflux disease) [K21.9] 10/12/2017 Non morbid obesity [E66.9] 10/12/2017 Blood in stool [K92.1] 07/30/2020 11/10/2023 Adenomyosis of the uterus [N80.03] 11/19/2023 Prescriptions ordered this encounter Disp Refills Start End TIZANIDINE 4 MG TABLET 30 t* 1 05/13/2024 Route: ORAL Sig: Take 1 tablet by mouth every 8 hours as needed (muscle spasms). PREDNISONE 10 MG TABLET 21 t* 0 05/13/2024 05/22/2024 Sig: Take 4 tabs daily for 3 days, then 2 tabs daily for 3 days, then 1 tab daily for 3 days with food. Level of Service: OFFICE/OUTPATIENT ESTABLISHED MOD [facility] 30 MIN [82732] Encounter Status:Closed by TERRELL CLOUD on 05/13/24 [facility] CNOV Office Visit (OBGYWM ) -- JANET FRANK ([id number]) 2000 F CHT Date Time Provider Department 05/13/24 10:00 AM ELAYNE SEVERINO OBGYWM During your visit today, we recorded the following information about you: Blood pressure Weight Last Period 122/66 94.9 kg 05/13/24 Elayne Severino APRN.SENIOR ELECTRONICS ENGINEER 05/13/2024 10:22 AM Signed Janet Frank is a 24 year old female who presents for problem visit to discuss fertility concerns Hx of Adenomyosis for 3 month(s), LMP 05/01/2024 irregular cycles, new partner attempting for . HPI: she is unsure of exactly days between cycles, flow usually last 4 days. Her partner has 2 other children. Pt was concerned that the adenomyosis would effect her fertility. Pt states that they are having sex multiple times everyday. OB History T1 L1 SAB0 IAB0 Ectopic0 Multiple0 Live Births1 Comment: 1 son, vaginal on 03/27/17. Had Preeclampsia was induced at 39 weeks. Infant had BM in her. Also had to receive transfusion after due to CBC of 3. [employer] History LMP: 05/13/2024 (Exact Date), Having periods Age at Menarche: Age at First : Age at Menopause: [employer] History Comments: Sexual Activity: Yes; Male Contraception: Not used PAST MEDICAL HISTORY Diagnosis Date Adenomyosis of the uterus Anxiety and depression [facility], Dr. Jimenez Excessive or frequent menstruation Heavy periods, resolved with OCP GERD (gastroesophageal reflux disease) Hypothyroid Obesity, Class II, BMI 35-39.9 PAST SURGICAL HISTORY Procedure Laterality Date COLONOSCOPY FLX DX W/COLLJ SPEC WHEN PFRMD 10/14/2017 Colonoscopy ESOPHAGOGASTRODUODENOSCOPY TRANSORAL DIAGNOSTIC 10/14/2017 EGD FAMILY HISTORY Problem Relation Age of Onset other (does not know biological father) Father Diabetes Maternal Grandmother Hypertension Maternal Grandmother Lipids Maternal Grandfather Hypertension Maternal Grandfather Heart Maternal Uncle Breast Cancer No Family History Colon Cancer No Family History Uterine Cancer No Family History Ovarian cancer No Family History Social History Tobacco Use Smoking status: Former Current packs/day: 0.00 Average packs/day: 0.5 packs/day for 8.3 years (4.1 ttl pk-yrs) Types: Cigarettes Start date: 05/04/2012 Quit date: 08/20/2020 Years since quittin.7 Passive exposure: Never Smokeless tobacco: Never Tobacco comments: Vapes Vaping Use Vaping status: current everyday user Substances: Nicotine Substance Use Topics Alcohol use: No Drug use: Not Currently Types: Marijuana Current Outpatient Medications Medication Sig levothyroxine (SYNTHROID) 50 mcg tablet Take 1 tablet by mouth once daily. busPIRone (BUSPAR) 15 mg tablet Take 1 tablet by mouth three times a day. FLUoxetine (PROZAC) 40 mg capsule Take 1 capsule by mouth once daily. Take along with additional 20 mg capsule LINZESS 145 mcg capsule Take 1 capsule by mouth once daily. FLUoxetine (PROZAC) 20 mg capsule Take 1 capsule by mouth once daily. Take along with additional 40 mg capsule Drospirenone-Ethinyl Estradiol (PRANEETH, 28,) 3-0.02 mg per tablet Take 1 tablet by mouth once daily for 28 days. esomeprazole (NEXIUM) 40 mg capsule Take 1 capsule by mouth twice daily. 1/2 hr before meal. albuterol HFA (VENTOLIN HFA) 90 mcg/actuation inhaler Inhale 2 Puffs as instructed every 4 hours as needed for wheezing/shortness of breath. (Patient not taking: Reported on 04/14/2024) No current facility-administered medications for this visit. Allergies As of Date: 05/13/2024 (No Known Allergies) Fully Assessed 05/13/2024 REVIEW OF SYSTEMS Expanded ROS: N/A Allergies and current medication updated:Yes SENSITIVE EXAM: Sensitive exam not performed. EXAM: BP 122/66 Wt 209 lb 3.2 oz (94.9kg) LMP 05/13/2024 GENERAL: pleasant, female in no apparent distress HEENT: Normocephalic, atraumatic, mucus membranes moist, and no lesions CHEST: Normal inspiratory effort NEURO: alert and oriented x3,exam grossly non-focal EXTREMITIES: normal ASSESSMENT/PLAN: 1. Encounter for preconception consultation - ICD9: V26.49, ICD10: Z31.69 Reviewed ovulation cycle and timing of intercourse. Start logging cycles and using ovulation kits Follow up as needed. Elayne Severino APRN.SENIOR ELECTRONICS ENGINEER Medical Decision Making: Problems: Low: Acute, uncomplicated illness or injury Risk: Low: Low risk from testing/treatment Medical Decision Making Level: 3 - Low Referring Provider: SELF [200] Allergies As of Date: 05/13/2024 (No Known Allergies) Date Reviewed: 05/13/2024 Reviewed by: Tammy Duke LPN - Fully Assessed Reason for Visit: Problem Visit [Other] Primary Visit Diagnosis:Encounter for preconception consultation [Z31.69] Prescriptions as of 05/13/2024 - levothyroxine (SYNTHROID) 50 mcg tablet Take 1 tablet by mouth once da (more content not included)... Normal [facility] CNOVon 04-14-2024 CNOV Office Visit (UCWSTR ) -- JANET FRANK ([id number]) 2000 F CHT Date Time Provider Department 04/14/24 12:00 PM KENNETH MCKEON [facility] During your visit today, we recorded the following information about you: Temperature Pulse Respiration Blood pressure 98 degrees 103/minute 20/minute 104/82 Weight 92.4 kg Kenneth Mckeon APRN.SENIOR ELECTRONICS ENGINEER 04/14/2024 1:33 PM Signed Subjective HPI Nontoxic-appearing female presents urgent care chief complaint sore throat headache body aches chills cough fatigue. Duration of symptoms 3 days. Associate symptoms listed above. OTC medications none today. Sick contact family members. Most bothersome symptom today is fatigue. Denies any chest pain shortness of breath pleuritic pain hemoptysis change in bowel or bladder habits. Past medical history prescription medications allergies reviewed. .Patient presents with: Cough: Sore throat, VARGAS, body aches, chills x 3 days PAST MEDICAL HISTORY Diagnosis Date Anxiety and depression [facility], Dr. Jimenez Excessive or frequent menstruation Heavy periods, resolved with OCP GERD (gastroesophageal reflux disease) Hypothyroid Obesity, Class II, BMI 35-39.9 PAST SURGICAL HISTORY Procedure Laterality Date COLONOSCOPY FLX DX W/COLLJ SPEC WHEN PFRMD 10/14/2017 Colonoscopy ESOPHAGOGASTRODUODENOSCOPY TRANSORAL DIAGNOSTIC 10/14/2017 EGD ALLERGIES Patient has no known allergies. MEDICATIONS levothyroxine (SYNTHROID) 50 mcg tablet Take 1 tablet by mouth once daily. busPIRone (BUSPAR) 15 mg tablet Take 1 tablet by mouth three times a day. FLUoxetine (PROZAC) 40 mg capsule Take 1 capsule by mouth once daily. Take along with additional 20 mg capsule LINZESS 145 mcg capsule Take 1 capsule by mouth once daily. FLUoxetine (PROZAC) 20 mg capsule Take 1 capsule by mouth once daily. Take along with additional 40 mg capsule esomeprazole (NEXIUM) 40 mg capsule Take 1 capsule by mouth twice daily. 1/2 hr before meal. Drospirenone-Ethinyl Estradiol (PRANEETH, 28,) 3-0.02 mg per tablet Take 1 tablet by mouth once daily for 28 days. albuterol HFA (VENTOLIN HFA) 90 mcg/actuation inhaler Inhale 2 Puffs as instructed every 4 hours as needed for wheezing/shortness of breath. (Patient not taking: Reported on 04/14/2024) FAMILY HISTORY Problem Relation Age of Onset No Known Problems Mother other (does not know biological father) Father Diabetes Maternal Grandmother Hypertension Maternal Grandmother Lipids Maternal Grandfather Hypertension Maternal Grandfather Heart Maternal Uncle Breast Cancer No Family History Colon Cancer No Family History Uterine Cancer No Family History Ovarian cancer No Family History Social History Tobacco Use Smoking status: Former Current packs/day: 0.00 Average packs/day: 0.5 packs/day for 8.3 years (4.1 ttl pk-yrs) Types: Cigarettes Start date: 05/04/2012 Quit date: 08/20/2020 Years since quittin.6 Passive exposure: Never Smokeless tobacco: Never Tobacco comments: Vapes Vaping Use Vaping status: current everyday user Substances: Nicotine Substance Use Topics Alcohol use: No Drug use: Yes Types: Marijuana BP 104/82 Pulse 103 Temp 36.7 ?C (98 ?F) Resp 20 Wt 92.4 kg (203 lb 11.3 oz) LMP 01/21/2024 SpO2 98% BMI 35.21 kg/m? Hr 93 Review of Systems Constitutional: Positive for chills and malaise/fatigue. Negative for fever. HENT: Positive for congestion, sinus pain and sore throat. Negative for ear discharge and ear pain. Eyes: Negative for blurred vision, pain, discharge and redness. Respiratory: Positive for cough. Negative for hemoptysis, sputum production, shortness of breath, wheezing and stridor. Cardiovascular: Negative for chest pain. Gastrointestinal: Negative for abdominal pain, diarrhea, nausea and vomiting. Musculoskeletal: Positive for myalgias. Skin: Negative for itching and rash. Neurological: Positive for headaches. Negative for dizziness. Objective Physical Exam Constitutional: General: She is not in acute distress. Appearance: She is not diaphoretic. HENT: Head: Normocephalic. Jaw: No trismus, tenderness, swelling or pain on movement. Nose: Congestion present. Mouth/Throat: Mouth: Mucous membranes are moist. Pharynx: Oropharynx is clear. Uvula midline. No pharyngeal swelling, oropharyngeal exudate, posterior oropharyngeal erythema or uvula swelling. Eyes: Conjunctiva/sclera: Conjunctivae normal. Pupils: Pupils are equal, round, and reactive to light. Cardiovascular: Rate and Rhythm: Normal rate and regular rhythm. Heart sounds: Normal heart sounds. Pulmonary: Effort: Pulmonary effort is normal. No tachypnea, accessory muscle usage or respiratory distress. Breath sounds: Normal breath sounds. No stridor. No wheezing, rhonchi or rales. Abdominal: General: There is no distension. Palpa (more content not included)... Normal [facility] STREP A MOLECULAR (POC)on Procedural Control Valid [facility] Strep A (POCT) Negative Negative [facility] CNOVon 01-22-2024 CNOV Office Visit (FAMPWS ) -- JANET FRANK ([id number]) 2000 F T Date Time Provider Department 01/22/24 10:00 AM IVELISSE NG FAMPWS During your visit today, we recorded the following information about you: Pulse Respiration Blood pressure Weight 58/minute 16/minute 110/77 92 kg Height Last Period 1.62 m 01/21/24 Ivelisse Ng APRN.CIERRA 01/22/2024 9:47 AM Addendum Increase Prozac 60 mg daily Continue to take all medication as prescribed Start Praneeth, take daily to help with periods. Continue to work on eating a healthy diet, increase protein, veggies, and get some form of exercise Due Dtap Follow up in 1 month Health Promotion: - Eat healthy -- go to [employer] to get started - Have a yearly physical - Mammogram yearly after age 40 - Get at least 30 minutes of physical activity daily - Get at least 7 to 8 hours of sleep each night - Reach and maintain a healthy weight - Get help to quit or don't start smoking - Limit alcohol use to one drink or less - Do not use illegal drugs or misuse prescription drugs - Wear a helmet when riding a bike and wear protective gear for sports - Wear a seatbelt in cars and not text and drive - Wear sunscreen Ivelisse Ng APRN.CIERRA 01/22/2024 10:26 AM Signed This is a 23 year old female who presents today with: Patient presents with: Wellness HISTORY OF PRESENT ILLNESS: Janet Frank is a 23 year old female. Patient presents with: Wellness Wellness exam Diet: Eating a well balanced diet. Exercise: Active at work. Vision: Had exam, wearing glasses. Dental: Had exam. Sleep: 2-6 hours, varies Hypothyroidism: Taking Synthroid 50 mcg daily. Out of medication now, pharmacy getting filled today. GERD: Taking Nexium 40 mg twice daily OTC. Symptoms well controlled with medication. Anxiety/depression: Taking Prozac 40 mg daily. BuSpar 15 mg 3 times daily. Still having on going anxiety, difficulty sleeping. No SI/Hi. Chronic constipation: Taking Linzess 145 mcg daily. Not following with GI. Medication is helpful. Menses: Irregular, will have 2 menses in a month. Would like to start OCP, was on depo in the past. Concerned about weight gain. Pap:November, normal. Vaccines: Due for Tdap, denies wanting at this time. PAST MEDICAL HISTORY: PAST MEDICAL HISTORY Diagnosis Date Anxiety and depression [facility], Dr. Jimenez Excessive or frequent menstruation Heavy periods, resolved with OCP GERD (gastroesophageal reflux disease) Hypothyroid Obesity, Class II, BMI 35-39.9 PAST SURGICAL HISTORY Procedure Laterality Date COLONOSCOPY FLX DX W/COLLJ SPEC WHEN PFRMD 10/14/2017 Colonoscopy ESOPHAGOGASTRODUODENOSCOPY TRANSORAL DIAGNOSTIC 10/14/2017 EGD ALLERGIES Patient has no known allergies. MEDICATIONS Current Outpatient Medications Medication Sig busPIRone (BUSPAR) 15 mg tablet Take 1 tablet by mouth three times a day. FLUoxetine (PROZAC) 40 mg capsule Take 1 capsule by mouth once daily. LINZESS 145 mcg capsule Take 1 capsule by mouth once daily. levothyroxine (SYNTHROID) 50 mcg tablet Take 1 tablet by mouth once daily. esomeprazole (NEXIUM) 40 mg capsule Take 1 capsule by mouth twice daily. 1/2 hr before meal. albuterol HFA (VENTOLIN HFA) 90 mcg/actuation inhaler Inhale 2 Puffs as instructed every 4 hours as needed for wheezing/shortness of breath. No current facility-administered medications for this visit. FAMILY HISTORY Problem Relation Age of Onset No Known Problems Mother other (does not know biological father) Father Diabetes Maternal Grandmother Hypertension Maternal Grandmother Lipids Maternal Grandfather Hypertension Maternal Grandfather Heart Maternal Uncle Breast Cancer No Family History Colon Cancer No Family History Uterine Cancer No Family History Ovarian cancer No Family History Social History Tobacco Use Smoking status: Former Current packs/day: 0.00 Average packs/day: 0.5 packs/day for 8.3 years (4.1 ttl pk-yrs) Types: Cigarettes Start date: 05/04/2012 Quit date: 08/20/2020 Years since quittin.4 Passive exposure: Never Smokeless tobacco: Never Tobacco comments: Vapes Vaping Use Vaping status: current everyday user Substances: Nicotine Substance Use Topics Alcohol use: No Drug use: Yes Types: Marijuana REVIEW OF SYSTEMS GENERAL: No weight loss, malaise or fevers/chills HEENT: Negative for frequent or significant headaches, No changes in hearing or vision. NECK: Negative for lumps, goiter, pain and significant neck swelling RESPIRATORY: Negative for cough, hemoptysis, wheezing, dyspnea or shortness of breath CARDIOVASCULAR: Negative for chest pain, leg swelling, orthopnea, or palpitations GI: No nausea, vomiting, or diarrhea/constipation. No hematochezia/melena. No heartburn or reflux symptoms. : No history of dysuria, frequenc (more content not included)... [facility] JANET FR[facility] ([id number]) 2000 F CHT Date Time Provider Department 01/14/24 ELAYNE SEVERINO OBGYWM During your visit today, we recorded the following information about you: Arina Vinson RN 01/14/2024 12:06 PM Signed She is scheduled for virtual visit with tomorrow at 1245 and provider has a meeting. Left message for patient to call office to reschedule. Can use any other open time with tomorrow and keep as virtual visit still. VENKATESH Rankin Trisha, RN 01/14/2024 3:42 PM Signed Left message for patient to call office again. I did leave detail that I moved her appt to 1130 tomorrow and to call back to let office know that works. Mychart message sent too. Arina Vinson RN Allergies As of Date: 01/14/2024 (No Known Allergies) Date Reviewed: 11/10/2023 Reviewed by: Elayne Severino APRN.[facility] - Fully Assessed Reason for Visit: Appointment [[id number]] Prescriptions as of 01/15/2024 - busPIRone (BUSPAR) 15 mg tablet Take 1 tablet by mouth three times a day. - LINZESS 145 mcg capsule Take 1 capsule by mouth once daily. - FLUoxetine (PROZAC) 40 mg capsule Take 1 capsule by mouth once daily. - levothyroxine (SYNTHROID) 50 mcg tablet Take 1 tablet by mouth once daily. - esomeprazole (NEXIUM) 40 mg capsule Take 1 capsule by mouth twice daily. 1/2 hr before meal. - albuterol HFA (VENTOLIN HFA) 90 mcg/actuation inhaler Inhale 2 Puffs as instructed every 4 hours as needed for wheezing/shortness of breath. Problem List As Of Date 01/14/2024 Noted Resolved Hypothyroidism [E03.9] 03/08/2012 Menorrhagia [N92.0] 03/08/2012 11/10/2023 Abdominal pain, other specified site [R10.9] 07/26/2013 11/10/2023 Physical exam [Z00.00] 07/23/2016 10/12/2017 Altered bowel habits [R19.4] 09/30/2017 GERD (gastroesophageal reflux disease) [K21.9] 10/12/2017 Non morbid obesity [E66.9] 10/12/2017 Blood in stool [K92.1] 07/30/2020 11/10/2023 Adenomyosis of the uterus [N80.03] 11/19/2023 Encounter Status:Closed by ARINA VINSON on 01/15/24 [facility] 11-20-2023 JEANETTE Telephone (OBGYWM) -- JANET FRANK ([id number]) 2000 [facility] Date Time Provider Department 11/20/23 ELAYNE SEVERINO OBGYWElisa During your visit today, we recorded the following information about you: Steffanie Lozada RN 11/20/2023 11:03 AM Signed Please review Pelvic US results. Patient called. RM was not the original ordering provider, but patient states she is no longer seeing that provider. Aware RM is out of office today. VENKATESH Lemons Renee, APRN.CNP 11/23/2023 1:17 PM Signed Please let the pt know that her US does not show polycystic ovaries but does show adenomyosis. If she wants to discuss the results more she can schedule a virtual/office visit. Elayne Severino APRN.Vincent García RN 11/23/2023 2:18 PM Signed Left message for patient to call office. [facility] [employer] message also went to patient. VENKATESH Walker Tara, RN 11/23/2023 2:48 PM Signed Pt notified and appt scheduled to discuss results further. Vincent Hale RN Allergies As of Date: 11/20/2023 (No Known Allergies) Date Reviewed: 11/10/2023 Reviewed by: Elayne Severino APRN.CIERRA - Fully Assessed Reason for Visit: Results [95] Cmt: Pelvic US Prescriptions as of 11/23/2023 - busPIRone (BUSPAR) 15 mg tablet Take 1 tablet by mouth three times a day. - LINZESS 145 mcg capsule Take 1 capsule by mouth once daily. - FLUoxetine (PROZAC) 40 mg capsule Take 1 capsule by mouth once daily. - levothyroxine (SYNTHROID) 50 mcg tablet Take 1 tablet by mouth once daily. - esomeprazole (NEXIUM) 40 mg capsule Take 1 capsule by mouth twice daily. 1/2 hr before meal. - albuterol HFA (VENTOLIN HFA) 90 mcg/actuation inhaler Inhale 2 Puffs as instructed every 4 hours as needed for wheezing/shortness of breath. Problem List As Of Date 11/20/2023 Noted Resolved Hypothyroidism [E03.9] 03/08/2012 Menorrhagia [N92.0] 03/08/2012 11/10/2023 Abdominal pain, other specified site [R10.9] 07/26/2013 11/10/2023 Physical exam [Z00.00] 07/23/2016 10/12/2017 Altered bowel habits [R19.4] 09/30/2017 GERD (gastroesophageal reflux disease) [K21.9] 10/12/2017 Non morbid obesity [E66.9] 10/12/2017 Blood in stool [K92.1] 07/30/2020 11/10/2023 Adenomyosis of the uterus [N80.03] 11/19/2023 Encounter Status:Closed by VINCENT HALE on 11/23/23 Normal [facility] US Pelvison 11-19-2023 Indication irregular menses, menorrhagia with irregular cycle, Dysmenorrhea Impression The uterus is anteverted and has a globular appearance. It measures 90 mm x 42 mm x 45 mm. The myometrium is heterogeneous. asymmetrically thickened, contains myometrial cysts and has myometrial fanning but no obvious fibroids are observed. This finding is consistent with adenomyosis. The endometrial thickness is 8.9 mm. The right ovary measures 21 mm x 19 mm x 20 mm. The left ovary measures 34 mm x 26 mm x 24 mm and contains a corpus luteum cyst. There is free fluid visualized. Recommendations Ultrasound findings consistent with adenomyosis. Clinical correlation is recommended. Menstrual History LMP on 11/07/2023. Contraception: none Method Transabdominal, transvaginal, 3D ultrasound examination, Color Doppler examination. View: Adequate visualization Uterus Uterus: Visualized Uterus position: anteverted Description of uterine malformations: none Myometrium: heterogeneous. asymmetrically thickened, myometrial cysts Endometrium: three-layer pattern Cervix details: normal Uterus length 90 mm Uterus width 45 mm Uterus height 42 mm Uterus Vol 86.9 cm Endometrial thickness, total 8.9 mm Fibroids: No fibroids identified Polyps: No polyps identified Right Ovary Rt ovary: Visualized Rt ovary morphology: premenopausal normal follicular Rt ovary D1 21 mm Rt ovary D2 19 mm Rt ovary D3 20 mm Rt ovary Vol 4.3 cm Rt ovarian cyst(s): No cysts identified Left Ovary Lt ovary: Visualized Lt ovary morphology: premenopausal normal follicular Lt ovary D1 34 mm Lt ovary D2 26 mm Lt ovary D3 24 mm Lt ovary Vol 10.9 cm Lt ovarian corpus luteum: cystic with fine diffuse internal echoes Lt ovarian corpus luteum D1 20.8 mm Lt ovarian corpus luteum D2 22.4 mm Lt ovarian corpus luteum D3 18.9 mm Lt ovarian cyst(s): Cysts identified Cul de Sac Visualized. free fluid visualized: trace Performed By: Leandra Davison RDMS Read By: Ailyn Tejada M.D. MATERNAL MEDICINE [facility] Radiology Study observation (narrative) [facility] Peggy 11-12-2023 JEANETTE Telephone (OBGYWM) -- ZACJANET VALLEJO ([id number]) 2000 F [facility] Date Time Provider Department 11/12/23 ELAYNE SEVERINO During your visit today, we recorded the following information about you: Anne Martínez 11/12/2023 12:58 PM Signed Patient would like to speak to someone in [facility] office to go over her lab results. Please call her at [phone]. Arina Vinson RN 11/12/2023 1:32 PM Signed Patient also called into office asking for RM to review blood work results from 11/09. She has not heard from Dr. Yoon's office yet either regarding these. VENKATESH Rankin Renee, APRN.CIERRA 11/12/2023 3:00 PM Signed I spoke with the patient regarding her recent labs and reviewed them with her. Patient still has a pending order for pelvic ultrasound, I informed her that she can call and schedule that at her convenience. Discussed possible PCOS diagnosis based on elevated DHEA level. Elayne Severino APRN.CIERRA Allergies As of Date: 11/12/2023 (No Known Allergies) Date Reviewed: 11/10/2023 Reviewed by: Elayne Severino APRN.CIERRA - Fully Assessed Reason for Visit: lab results [Other] Prescriptions as of 11/12/2023 - LINZESS 145 mcg capsule Take 1 capsule by mouth once daily. - FLUoxetine (PROZAC) 40 mg capsule Take 1 capsule by mouth once daily. - busPIRone (BUSPAR) 15 mg tablet Take 1 tablet by mouth three times a day. - levothyroxine (SYNTHROID) 50 mcg tablet Take 1 tablet by mouth once daily. - esomeprazole (NEXIUM) 40 mg capsule Take 1 capsule by mouth twice daily. 1/2 hr before meal. - albuterol HFA (VENTOLIN HFA) 90 mcg/actuation inhaler Inhale 2 Puffs as instructed every 4 hours as needed for wheezing/shortness of breath. Problem List As Of Date 11/12/2023 Noted Resolved Hypothyroidism [E03.9] 03/08/2012 Menorrhagia [N92.0] 03/08/2012 11/10/2023 Abdominal pain, other specified site [R10.9] 07/26/2013 11/10/2023 Physical exam [Z00.00] 07/23/2016 10/12/2017 Altered bowel habits [R19.4] 09/30/2017 GERD (gastroesophageal reflux disease) [K21.9] 10/12/2017 Non morbid obesity [E66.9] 10/12/2017 Blood in stool [K92.1] 07/30/2020 11/10/2023 Encounter Status:Closed by ARINA VINSON on 11/12/23 Normal [facility] CNOVon 11-10-2023 CNOV Office Visit (OBGYWM ) -- JANET FRANK ([id number]) 2000 F [facility] Date Time Provider Department 11/10/23 3:30 PM ELAYNE SEVERINO OBGYWM During your visit today, we recorded the following information about you: Blood pressure Weight Height Last Period 98/60 98.5 kg 1.626 m 11/01/23 Elayne Severino APRN.CNP 11/10/2023 4:38 PM Signed Pushcart Peddler offered: Patient declines. Janet is a 23 year old who presents for an annual gynecologic exam without complaints. Menses: cycles every 20-25 days and 4-5 days of flow. Contraception: none HPV vaccine: Yes Last Pap: 2019 abnormal, ASCUS HPV: N/A History of abnormal pap: Yes Last mammogram: never Sexually active: Yes Patient concerns for STD exposure: No. Pain with intercourse: No Postcoital bleeding: No OB History T1 L1 SAB0 IAB0 Ectopic0 Multiple0 Live Births1 Comment: 1 son, vaginal on 03/27/17. Had Preeclampsia was induced at 39 weeks. had BM in her. Also had to receive transfusion after due to CBC of 3. Surface Supply Breathing Apparatus History LMP: 11/01/2023, Having periods Age at Menarche: Age at First : Age at Menopause: Surface Supply Breathing Apparatus History Comments: Sexual Activity: Yes; Male Contraception: None PAST MEDICAL HISTORY Diagnosis Date Anxiety and depression [facility], Dr. Jimenez Excessive or frequent menstruation Heavy periods, resolved with OCP GERD (gastroesophageal reflux disease) Hypothyroid Obesity, Class II, BMI 35-39.9 PAST SURGICAL HISTORY Procedure Laterality Date COLONOSCOPY FLX DX W/COLLJ SPEC WHEN PFRMD 10/14/2017 Colonoscopy ESOPHAGOGASTRODUODENOSCOPY TRANSORAL DIAGNOSTIC 10/14/2017 EGD FAMILY HISTORY Problem Relation Age of Onset No Known Problems Mother other (does not know biological father) Father Diabetes Maternal Grandmother Hypertension Maternal Grandmother Lipids Maternal Grandfather Hypertension Maternal Grandfather Heart Maternal Uncle Breast Cancer No Family History Colon Cancer No Family History Uterine Cancer No Family History Ovarian cancer No Family History SOCIAL HISTORY Social History Tobacco Use Smoking status: Former Packs/day: 0.50 Years: 5.00 Additional pack years: 0.00 Total pack years: 2.50 Types: Cigarettes Start date: 05/04/2012 Quit date: 08/20/2020 Years since quittin.2 Passive exposure: Never Smokeless tobacco: Never Tobacco comments: Vapes Vaping Use Vaping Use: current everyday user Substances: Nicotine Substance Use Topics Alcohol use: No Drug use: Yes Types: Marijuana REVIEW OF SYSTEMS Abdomen: No abdominal pain, nausea, vomiting, diarrhea, or constipation. No bloating, early satiety, indigestion, or increased flatulence. Bladder: No dysuria, gross hematuria, urinary frequency, urinary urgency, or incontinence. Breast: No breast lumps, nipple d/c, overlying skin changes, redness or skin retraction. Allergies and current medication updated:Yes EXAM: Ht 5' 4 (1.63m) Wt 217 lb 3.2 oz (98.5kg) LMP 11/01/2023 BMI 37.26 kg/(m2). GENERAL: pleasant, female in no apparent distress HEENT: Normocephalic, atraumatic, mucus membranes moist, and no lesions NECK: Supple, full range of motion, no adenopathy, and thyroid normal DERMATOLOGY: Normal, without lesions, non-icteric, and non-hirsute BREAST: soft, non-tender, symmetric, no dominant mass, normal nipple-areolar complex, no lymphadenopathy, and no nipple discharge CHEST: Normal inspiratory effort ABDOMEN: soft, non-tender, and no masses PELVIC: external genitalia normal, normal Bartholin's glands, urethra, [place]'s glands, no vulvar lesions, no cervical lesions, good vaginal support, physiologic discharge present, normal appearing perineal body and perianal region BIMANUAL: uterus normal size, shape and consistency, no adnexal masses, and non-tender RECTOVAGINAL: deferred. NEURO: alert and oriented x3,exam grossly non-focal EXTREMITIES: normal ASSESSMENT/PLAN: 1) Health maintenance: Pap done with reflex HPV. Mammogram starting age 40. Nutrition, exercise and routine health maintenance exams reviewed. Calcium/Vitamin D supplementation information provided. 2) Contraception: none. Contraceptive options reviewed and information provided. 3) STD screening: Declined STD check. 4) Follow up one year or sooner as needed Elayne Severino APRN.SENIOR ELECTRONICS ENGINEER Allergies As of Date: 11/10/2023 (No Known Allergies) Date Reviewed: 11/10/2023 Reviewed by: Elayne Severino APRN.SENIOR ELECTRONICS ENGINEER - Fully Assessed Reason for Visit: Yearly Exam [187] Primary Visit Diagnosis:Encounter for gynecological examination (general) (routine) without abnormal findings [Z01.419] Other Visit Diagnoses:Screening for cervical cancer [Z12.4] Encounter for screening for human papillomavirus (HPV) [Z11.51] Order(s):PAP TEST [[id number]] Order #: [id number]. #:[id number] (more content not included)... Normal [facility] DHEA-S [facility] 11-10-2023 DHEA-S [Mass/Vol] 406.5 ug/dL High 98.8-340.0 [facility] Comment on above: Order Comment: Speci men Type: BLOOD SPECIMENOrdering Facility: [facility] Address: [facility] [place] [address] Result Comment: Refe jean paul ranges are age and gender specific. For additional information, reference range tables can be found in the laboratory test directory. The normal values are based on the following source: Dehydroepiandrosterone sulfate (DHEA S) [package insert V 17.0 Albanian]. [facility], [place], [place]: December 2012. Performed By: #### 1 0501-5, 2243-4, 77009-9, DHEAS ####[facility] [id number] [place] [address] [place] Estradiol SerPl-mCncon 11-09 E2 [Mass/Vol] 69 pg/mL Normal [facility] Comment on above: Order Comment: Speci men Type: BLOOD SPECIMENOrdering Facility: [facility] Address: [address] [place] [address] Result Comment: This test is not suitable for patients receiving treatment with the drug Fulvestrant (Faslodex). The drug causes an interference leading to falsely elevated estradiol results. Menstrual cycle Estradiol reference ranges: Follicular : < 234 pg/mL Ovulation : 41 to 398 pg/mL Luteal : < 342 pg/mL Estradiol reference ranges vary by gestational period: First trimester : 154 to 3243 pg/mL Second trimester : 1561 to 36602 pg/mL Third trimester : 8285 to >94459 pg/mL Post-menopausal Estradiol reference range: < 41 pg/mL Reference: 1. Estradiol - E2 (Estradiol III) [package insert V 3.0 Albanian]. [facility], [place], [place], October 2015. Performed By: #### 1 0501-5, 3-4, 09295-1, DHEAS ####[facility] [id number] [place] [address] [place] FSH SerPl-aCncon 11-10-2023 Follitropin Qn 3.9 m[IU]/mL Normal See comment [facility] Comment on above: Order Comment: Speci men Type: BLOOD SPECIMENOrdering Facility: [facility] Address: [address] [place] [address] Result Comment: Refe rence range: Follicular: 3.5-12.5 mIU/mL Ovulation: 4.7-21.5 mIU/mL Luteal: 1.7-7.7 mIU/mL Postmenopausal: 25.8-134.8 mIU/mL Performed By: #### 1 0501-5, 2243-4, 42073-1, DHEAS ####[facility] [id number] [address] [facility] HbA1c (Bld)on 11-10-2023 Average glucose Estimated from glycated hemoglobin (Bld) [Mass/Vol] 97 mg/dL Normal [facility] Comment on above: Order Comment: Speci men Type: BLOOD SPECIMENOrdering Facility: [facility] Address: [address] [place] [address] Result Comment: eAG: (Estimated average glucose) is a calculated value from HgbA1c and is escrow representative of the average blood glucose level in the last 2-3 month period. Performed By: #### 5 5454-3 ####[facility] [id number] [address] HbA1c (Bld) [Mass fraction] 5.0 % Normal 4.3-5.6 [facility] Comment on above: Order Comment: Speci men Type: BLOOD SPECIMENOrdering Facility: [facility] Address: [address] [place] [address] Result Comment: Amer [place] Diabetes Association guidelines indicate that patients with HgbA1c in the range 5.7-6.4% are at increased risk for development of diabetes, and intervention by lifestyle modification may be beneficial. HgbA1c greater or equal to 6.5% is considered diagnostic of diabetes. Performed By: #### 5 5454-3 ####[facility] [id number] [address] OF ART LH SerPl-aCncon 11-10-2023 Lutropin Qn 4.8 m[IU]/mL Normal See comment [facility] Comment on above: Order Comment: Speci men Type: BLOOD SPECIMENOrdering Facility: [facility] Address: [address] [place] [address] Result Comment: Refe rence range: Follicular: 2.4-12.6 mIU/mL Midcycle: 14.0-95.6 mIU/mL Luteal: 1.0-11.4 mIU/mL [place]: 7.7-58.5 mIU/mL Performed By: #### 1 0501-5, 2243-4, 95121-6, DHEAS ####[facility] [id number] [place] [address] [place] PAP TESTon 11-10-2023 ADEQUACY Satisfactory for interpretation. Normal [facility] Comment on above: Order Comment: Speci men Type: BLOOD SPECIMEN [facility]: [facility] Address: [address] [place] [address] Performed By: #### 3 024-7, 3016-3 #### [facility] CLIA [id number] [address] [place] [address] STATES [place] CASE REPORT Normal [facility] Comment on above: Order Comment: Speci men Type: BLOOD SPECIMEN [facility]ing Facility: [facility] Address: [address] [place] [address] Result Comment: Gyne cologic Cytology Report Case: [id number] Authorizing Provider: Elayne Severino APRN.SENIOR ELECTRONICS ENGINEER Collected: 11/10/2023 03:58 PM Ordering Location: OB/Gynecology Received: 11/10/2023 04:52 PM First Screen: [place] Specimen: Pap Test, ThinPrep, Cervix Performed By: #### 3 024-7, 3016-3 #### [facility] CLIA [id number] [address] [place] [address] [place] CLINICAL HISTORY, CYTOLOGY, ESTIMATOR PROJECT MANAGER Routine Exam Normal [facility] Comment on above: Order Comment: Speci men Type: BLOOD SPECIMEN [facility] Address: [address] [place] [address] Performed By: #### 3 024-7, 3016-3 #### [facility] CLIA [id number] [address] [place] [address] [place] FINAL PERFORMING LAB Normal [facility] Comment on above: Order Comment: Speci men Type: BLOOD SPECIMEN [facility]ing Facility: [facility] Address: [address] [place] [address] Result Comment: Tech nical component, transplant nurse practitioner screening performed at [facility], [address] [facility] [address] CLIA# [id number] Diagnostic interpretation performed at [facility], [address] [facility] [place] [address] CLIA# [id number] Occupational Therapy Teacher: Genie Alcantara M.D. Performed By: #### 3 024-7, 3016-3 #### [facility] CLIA [id number] [address] [place] [address] [place] HPV REFLEX HPV if Atypical Normal [facility] Comment on above: Order Comment: Speci men Type: BLOOD SPECIMEN [facility] Address: [address] [place] [address] Performed By: #### 3 024-7, 3016-3 #### [facility] CLIA [id number] [address] [place], [place] [address] [place] INTERPRETATION, CYTOLOGY, ESTIMATOR PROJECT MANAGER Normal [facility] Comment on above: Order Comment: Speci men Type: BLOOD SPECIMEN [facility] Address: [address] [place] [address] Result Comment: Nega tive for intraepithelial lesion or malignancy. Performed By: #### 3 024-7, 3016-3 #### [facility] CLIA [id number] [address] [place] [address] [place] LMP 11/01/2023 Normal [facility] Comment on above: Order Comment: Speci men Type: BLOOD SPECIMEN [facility] Facility: [facility] Address: [address] [place], [place] [address] Performed By: #### 3 024-7, 3016-3 #### [facility] CLIA [id number] [address] [place], [place] [id number] [place] PAP DISCLAIMER COMMENT The Pap Smear is a screening test for cervical cancer. False negative results occur with all screening tests, emphasizing the need for rescreening at recommended intervals, and clinical correlation. Normal [facility] Comment on above: Order Comment: Nelly clay Type: BLOOD SPECIMEN [facility] Address: [address] [place] [address] Performed By: #### 3 024-7, 3016-3 #### [facility] CLIA [id number] [address] [place] [address] OF ART PAP TECHNICAL AIDE COMMENT This specimen has be en analyzed by the ThinPrep Imaging System, an automated imaging and review system, which assists the laboratory in evaluating cells on ThinPrep Pap tests. Following automated imaging, selected gatica from every slide are reviewed by a transplant nurse practitioner. Normal [facility] Comment on above: Order Comment: Nelly clay Type: BLOOD SPECIMEN [facility] Address: [address] [place] [address] Performed By: #### 3 024-7, 3016-3 #### [facility] CLIA [id number] [address] [place] [address] [place] Progest SerPl-mCncon 09-2 024 Progesterone [Mass/Vol] 0.2 ng/mL Normal See comment [facility] Comment on above: Order Comment: Nelly clay Type: BLOOD SPECIMENOrdering Facility: [facility] Address: [address] [place] [address] Result Comment: Mens trual Cycle Progesterone Reference Ranges: Follicular: <1.0 ng/mL Ovulation: <12.1 ng/mL Luteal: 1.8 to 23.9 ng/mL. Progesterone Reference Ranges vary by gestational period: First Trimester: 11.0 to 44.3 ng/mL Second Trimester: 25.4 to 83.3 ng/mL Third Trimester: 58.7 to 214 ng/mL Post menopausal Progesterone: <0.5 ng/mL Reference: 1. Progesterone (Progesterone III) [package insert V 1.0 Albanian]. [facility], [place], [place]. February 2015. Performed By: #### 2 839-9, 3016-3 ####[facility] [id number] [place] [address] [place] TSH SerPl-aCncon 11-10-2023 TSH Qn 1.110 m[IU]/L Normal 0.270-4.200 [facility] Comment on above: Order Comment: Speci men Type: BLOOD SPECIMENOrdering Facility: [facility] Address: [address] [place] [address] Result Comment: If t he patient is , TSH reference range varies by gestational period: First Trimester (weeks 9-12): 0.180-2.990 mIU/L Second Trimester: 0.110-3.980 mIU/L Third Trimester: 0.480-4.710 mIU/L Yariel Garcia et al. A Practical Approach for the Verifications and Determination of Site- and Trimester-Specific Reference Intervals for Thyroid Function tests in . Thyroid, 2019:29:3:412-420. Juan De Santiago, et al. 2017 Guidelines of the [place] Thyroid Association for the Diagnosis and Management of Thyroid Disease during and the . Thyroid, 2017:27:3:315-389. Performed By: #### 2 839-9, 3016-3 ####[facility] [id number] [place] [address] [place] Brain/Head without Contrasto n 07-02-2023 Brain/Head without Contrast [facility] Services [address] [place] [address] Brain/Head without Contrast MR#: [id number] Acct: [id number] Name: JANET FRANK RAVI Rep #: [id number] : 2000 F 23 From: Shaun bajwa MD PCP: Dr. Genie Jackson MD Status: REG ER Study: Brain/Head without Contrast Date of Exam: 06/05 01/25 Exam# [id number] Ordering Dr: Thierno Winston DO [id number] STUDY: CT BRAIN WITHOUT CONTRAST REASON FOR EXAM: Female, 23 years old. Headache. RADIATION DOSAGE (If Supplied By Facility): CTDIvol = ( 44.99 ) mGy, DLP = ( 829.85 ) mGycm TECHNIQUE: Transaxial CT imaging of the brain was performed without administration of intravenous contrast material. Individualized dose optimization techniques were used for this CT. COMPARISON: No relevant priors. FINDINGS: Normal soft tissue structures. Normal calvarium. Normal size ventricles and extra-axial spaces for the patient''s age. Normal white matter tracts of the cerebral hemispheres. Normal basal ganglia and thalami. Normal brainstem. Normal cerebellum. There is no intracranial hemorrhage. There are no findings of an acute ischemic infarction. Mild mucosal thickening of the ethmoid sinuses. CT/Brain/Head without Contrast IMPRESSION: Normal unenhanced CT scan of the brain. Mild degree of mucosal thickening of the ethmoid sinuses. Electronically Signed: Shaun Lenz MD at 10:11 EST Reading Location ID and State: [address] [place] [address] , Service support , CC: Dr. Thierno Winston DO; Dr. Genie Jackson MD Line Assigner: Signed Normal [facility] Emergency Department Summary on 07-02-2023 Emergency Department Summary [facility] Medical Records Department [address] [place] [address] Emergency Department Summary 07/02/23 MR#: [id number] Acct: [id number] Name: JANET FRANK RAVI Rep #: [id number] : 2000 23 From: Thierno Winston DO PCP: Dr. Genie Jackson MD Status:DEP ER Location: ED HPI History of Present Illness Chief Complaint: Headache Informant: patient Onset/Context/Timing Onset: Days (2) Context: Gradual Timing: Intermittent Quality -Headache: Positive for Other (Aching) Location: Generalized Worsened by: Light Relieved by: Nothing Associated Symptoms/Injury Associated Symptoms: Positive for Nausea, Sore Throat, Visual Changes and Photophobia; Negative for Fever, Vomiting, Sinus Pressure, Numbness, Tingling, Preceding Aura or Blurred Vision Narrative Narrative: Patient presents with headache that has been getting worse over the past 2 days. Patient states her headache is generalized. Patient describes it as aching. Patient states it has been waxing and waning over the past 2 days. Patient states it is worse with light. Patient also admits to some nausea but denies any vomiting. Patient admits to a sore throat. Patient admits to some photophobia. Patient denies any blurry vision or double vision. Patient states that her vision appears brighter. Patient denies any paresthesias or weakness. Patient denies any scotoma. Patient admits to some chills but denies any fevers. Patient went to urgent care and was referred to the emergency department for CT scan of her head. [facility] Medical History Colitis GERD (gastroesophageal reflux disease) Hypothyroidism IBS (irritable bowel syndrome) Home Medications levothyroxine 25 mcg tablet 50 mcg PO DAILY thyroid 01/11/14 [History Last Taken 09/26/17 08:00 25 cg] cephalexin 500 mg capsule 500 mg PO Q6 #14 caps 03/02/22 [Rx Last Taken Unknown] fluoxetine 20 mg capsule 40 mg PO DAILY 03/02/22 [History Last Taken Unknown] linaclotide 145 mcg capsule (Linzess) 145 mcg PO DAILY 03/02/22 [History Last Taken Unknown] buspirone 15 mg tablet 15 mg PO TID 06/30/22 [History Last Taken Unknown] esomeprazole magnesium 40 mg capsule,delayed release 40 mg PO DAILY 06/30/22 [History Last Taken Unknown] tizanidine 4 mg tablet 4 mg PO Q4H PRN PRN Headache 06/30/22 [History Last Taken Unknown] potassium chloride 20 mEq tablet,extended release 20 meq PO BID #14 tabs 09/06/22 [Rx Last Taken Unknown] Allergy/AdvReac Type Severity Reaction Status Date / Time No Known Allergies Allergy Verified 07/02/23 08:43 Surgical History no surgical history no surgical history Social History Smoking Status: Current every day smoker tobacco type: e-cigarettes ROS ROS ED Constitutional Constitutional ED: Reports chills and subjective; Denies fever(s) Eyes Eyes: Reports change in vision; Denies blurry vision ENT ENT ED: Reports sore throat; Denies rhinorrhea Cardiovascular Cardiovascular: Denies chest pain or palpitations Respiratory/Chest Respiratory/Chest: Denies cough or dyspnea Gastrointestinal Gastrointestinal: Denies nausea or vomiting Genitourinary Genitourinary ED: Reports urinary frequency; Denies dysuria or hematuria Musculoskeletal Musculoskeletal: Reports back pain and neck pain Integumentary Denies abscess or rash Neurologic Neurologic: Reports headache(s) and weakness Allergic/Immunologic Allergic/Immunologic ED: Denies mouth swelling or urticaria EXAM Physical Exam Const Vital Signs: 07/02/23 08:44 Temperature 98.3 F Temperature Source Temporal Pulse Rate 78 Respiratory Rate 14 Blood Pressure 131/82 H Blood Pressure Mean 98 Pulse Ox 98 Oxygen Delivery Method Room Air Positive well nourished and well developed General Appearance ED: well developed and NAD HEENT Reports moist mucous membranes Neck supple, no meningeal signs and no JVD Resp normal respiratory effort and clear to auscultation bilaterally Cardio regular rate and regular rhythm GI non-tender and non-distended Palpation: soft Extremity normal to inspection and full ROM Neuro oriented x3, CN's II-XII intact bilaterally and no sensory deficits noted [place] Coma Scale: document GCS findings Spontaneous Obeys Commands Oriented 15 Sensorium / Orientation: awake and alert Speech: speech normal Gait (Neuro): normal gait Motor Exam: strength 5/5 throughout Psych mental status grossly normal MDM MDM MDM Narrative Medical decision making narrative: Differential diagnosis includes intracranial bleeding, migraine headache, temporal arteritis, and viral illness. Serum hCG will be obtained to assess for . Sed rate will be obtained to a ssess for inflammato (more content not included)... Normal [facility] Erythrocyte Sed Rateon SED RATE 5 mm/hr Normal 0-[address] [facility] Comment on above: Performed By: #### L 700.6800, L101.9900 #### [facility] [place], [address] Erythrocyte sedimentation ra teOrdered By: Thierno Winston on 07-02-2023 ESR (Bld) [Velocity] 5 mm/h 0-30 [facility] - Microbiology an d Antimicrobial susceptibilityOrdered By: Thierno Winston on 07-02-2023 SARS-CoV-2 (COVID-19) RNA RODERICK+probe Ql (Unsp spec) [facility] M100.678on 07-02-2023 M100.678 SARS-CoV-2 (COVID 19 ) Negative INFLUENZA A Negative INFLUENZA B Negative RSV PCR Negative Normal [facility] Comment on above: Performed By: #### M 100.678 #### [facility] [address] [place], [address] ,Serum,hCG Quali.on 07-02-2023 HCG, SERUM QUAL Negative Normal [facility] Comment on above: Performed By: #### L 700.6800, L101.9900 #### [facility] [address] [place], [address] Serum or plasma choriogonado tropin detectionOrdered By: Thierno Winston on 07-02-2023 HCG ( test) Ql Negative [facility] UA DIP, URINE (POC)on 2022 BILIRUBIN UA (POCT) Small Abnormal Negative [facility] CLARITY UA (POCT) Clear [facility] COLOR UA (POCT) Emery [facility] GLUCOSE UA (POCT) 100 mg/dL Abnormal Negative mg/dL [facility] HEMOGLOBIN/BLOOD UA (POCT) Trace-intact Abnormal Negative [facility] KETONE UA (POCT) Trace Negative mg/dL [facility] LEUKOCYTES UA (POCT) Large Abnormal Negative [facility] NITRITE UA (POCT) Positive Abnormal Negative [facility] PH UA (POCT) 5.0 4.5 - 8.0 [facility] Protein Ql (U) 100 mg/dL Abnormal Negative mg/dL [facility] SPECIFIC GRAVITY UA (POCT) 1.015 1.005 - 1.030 [facility] UROBILINOGEN UA (POCT) 4.0 E.U./dL Abnormal Layne l E.U./dL [facility] 12 Lead EKGon 09-06-2022 12 Lead EKG [facility] [address] [place] [address] 12 Lead EKG 09/06/22 1448 MR#: [id number] Acct: [id number] Name: JANET FRANK Rep #: [id number] : 2000 22 From: Rosa Tobin MD Attending Dr: Status: DEP ER Ordering Dr: Geoff Meza Date: 09/06/22 Location: ED Sex: F C Admitted: Test Reason : DYSRHYTHMIA Blood Pressure : / mmHG Vent. Rate : 080 BPM Atrial Rate : 080 BPM P-R Int : 130 ms QRS Dur : 080 ms QT Int : 376 ms P-R-T Axes : 013 032 004 degrees QTc Int : 433 ms Normal sinus rhythm Normal ECG Confirmed by ELI DIAMOND, THEODORA ([id number]), website/blog editor LELA NETTLES ([id number]) on 09/08/2022 2:46:24 PM Referred By: INGRID Confirmed By:ROMAN TOBIN MD 09/08/22 1446 Date Rosa Tobin MD CC: YO Meza; Dr. Steffanie Ureña MD; Dr. Genie Jackson MD Signed Normal [facility] Absolute lymphocyte countOrd ered By: Geoff Meza on 09-06-2022 Lymphocytes Auto (Unsp spec) [#/Vol] 1.63 10*3/uL 0.83-4.[address] [facility] Basic Metabolic Profile (BMP )on 09-06-2022 BUN/CRE 11.1 RATIO Normal 10-[address] [facility] Comment on above: Performed By: #### L 100.0100, L500.2500 #### [facility] [address] [place], [address] CA,Total 9.4 mg/dL Normal 8.5-10.[address] [facility] Comment on above: Performed By: #### L 100.0100, L500.2500 #### [facility] [address] [place], [address] Chloride [Moles/Vol] 106 mmol/L Normal 98-107 [facility] Comment on above: Performed By: #### L 100.0100, L500.2500 #### [facility] [address] [place], [address] CO2 [Moles/Vol] 24.0 mmol/L Normal 21.0-32.[address] [facility] Comment on above: Performed By: #### L 100.0100, L500.2500 #### [facility] [address] [place], [address] Creatinine [Mass/Vol] 0.81 mg/dL Normal 0.55-1.02 [facility] Comment on above: Result Comment: The validity of the calculated GFR GFRAA in patients over 70 years has not been determined. Clinical correlation is essential. Performed By: #### L 100.0100, L500.2500 #### [facility] [address] [place], [address] ECRCL 88.59 ml/min Normal [facility] Comment on above: Performed By: #### L 100.0100, L500.2500 #### [facility] [address] [place], [address] EST GFR - AA 111 mL/min Normal >[address] [facility] Comment on above: Result Comment: Afri can Polish GFR Calc Performed By: #### L 100.0100, L500.2500 #### [facility] [address] [place], [address] GAP 9 Normal 5-[address] [facility] Comment on above: Performed By: #### L 100.0100, L500.2500 #### [facility] [address] [place], [address] GFR/1.73 sq M.predicted among non-blacks MDRD (S/P/Bld) [Vol rate/Area] 92 mL/min/{1.73_m2} Normal >[address] [facility] Comment on above: Result Comment: Non- GFR Calc Performed By: #### L 100.0100, L500.2500 #### [facility] [address] [place], [address] Glucose [Mass/Vol] 86 mg/dL Normal 74-106 [facility] Comment on above: Performed By: #### L 100.0100, L500.2500 #### [facility] [address] [place], [address] Potassium [Moles/Vol] 3.3 mmol/L Low 3.5-5.1 [facility] Comment on above: Performed By: #### L 100.0100, L500.2500 #### [facility] [address] [place], [address] Sodium [Moles/Vol] 139 mmol/L Normal 136-145 [facility] Comment on above: Performed By: #### L 100.0100, L500.2500 #### [facility] [address] [place], [address] Urea nitrogen [Mass/Vol] 9 mg/dL Normal 7-[address] [facility] Comment on above: Performed By: #### L 100.0100, L500.2500 #### [facility] [address] [place], [address] Basophil percentageOrdered B y: Geoff Meza on 09-06-2022 Basophil percentage 0 SEEN /hpf 0-5 [facility] Basophils/100 WBC (Bld) 0.8 % 0-[address] [facility] Chloride [Moles/Vol] 106 mmol/L 98-107 [facility] Eosinophils/100 WBC (Bld) 2.5 % 0-[address] [facility] Glucose [Mass/Vol] 86 mg/dL 74-106 [facility] Neutrophils (Bld) [#/Vol] 8.4 10*3/uL 2.0-7.[address] [facility] Neutrophils/100 WBC (Bld) 75.4 % 47-[address] [facility] Potassium [Moles/Vol] 3.3 mmol/L 3.5-5.1 [facility] Sodium [Moles/Vol] 139 mmol/L 136-145 [facility] WBC (Bld) [#/Vol] 11.2 10*3/uL 4.4-11.0 [facility] Bilirubin Test strip Ql (U)O rdered By: Geoff Meza on 09-06-2022 Bilirubin Ql (U) Negative Negative [facility] Blood erythrocytes count (nu mber/volume)Ordered By: Geoff Meza on 09-06-2022 RBC (Bld) [#/Vol] 5.26 10*6/uL 4.2-5.4 [facility] Blood hemoglobin measurement (mass/volume)Ordered By: Geoff Meza on 09-06-2022 Hemoglobin (Bld) [Mass/Vol] 14.3 g/dL 12.0-15.[address] [facility] Blood lymphocytes/100 leukoc ytesOrdered By: Geoff Meza on 09-06-2022 Lymphocytes/100 WBC (Bld) 14.6 % 19-[address] [facility] Blood monocytes/100 leukocyt esOrdered By: Geoff Meza on 09-06-2022 Monocytes/100 WBC (Bld) 6.3 % 0-[address] [facility] Blood platelet mean volumeOr dered By: Geoff Meza on 09-06-2022 Platelet mean volume (Bld) [Entitic vol] 9.1 fL 6.2-12.[address] [facility] CBC W/Diff, Automatedon Absolute Lymph 1.63 X10 3/uL Normal 0.83-4.[address] [facility] Comment on above: Performed By: #### L 100.0100, L500.2500 #### [facility] [place], [address] Absolute Neut 8.4 X10 3/uL High 2.0-7.[address] [facility] Comment on above: Performed By: #### L 100.0100, L500.2500 #### [facility] [address] [place], [address] Basophils/100 WBC (Bld) 0.8 % Normal 0-[address] [facility] Comment on above: Performed By: #### L 100.0100, L500.2500 #### [facility] [address] [place], [address] Eosinophils/100 WBC (Bld) 2.5 % Normal 0-[address] [facility] Comment on above: Performed By: #### L 100.0100, L500.2500 #### [facility] [address] [place], [address] Erythrocyte distribution width (RBC) [Ratio] 13.3 % Normal 11.6-14.[address] [facility] Comment on above: Performed By: #### L 100.0100, L500.2500 #### [facility] [address] [place], [address] Hematocrit (Bld) [Volume fraction] 42.0 % Normal 37-[address] [facility] Comment on above: Performed By: #### L 100.0100, L500.2500 #### [facility] [address] [place], [address] Hemoglobin (Bld) [Mass/Vol] 14.3 g/dL Normal 12.0-15.[address] [facility] Comment on above: Performed By: #### L 100.0100, L500.2500 #### [facility] [address] [place], [address] IG% 0.400 Normal 0.0-0.[address] [facility] Comment on above: Result Comment: IG% - Immature Granulocytes (promyelocytes, myelocytes and metamyelocytes) > 1% indicates that a LEFT SHIFT is Present. Performed By: #### L 100.0100, L500.2500 #### [facility] [address] [place], [address] Lymphocytes/100 WBC (Bld) 14.6 % Low 19-[address] [facility] Comment on above: Performed By: #### L 100.0100, L500.2500 #### [facility] [address] [place], [address] MCH (RBC) [Entitic mass] 27.2 pg Normal 27.0-32.[address] [facility] Comment on above: Performed By: #### L 100.0100, L500.2500 #### [facility] [address] [place], [address] MCHC (RBC) [Mass/Vol] 34.0 g/dL Normal 32-36 [facility] Comment on above: Performed By: #### L 100.0100, L500.2500 #### [facility] [address] [place], [address] MCV (RBC) [Entitic vol] 79.8 fL Low 81-[address] [facility] Comment on above: Performed By: #### L 100.0100, L500.2500 #### [facility] [address] [place], [address] Monocytes/100 WBC (Bld) 6.3 % Normal 0-[address] [facility] Comment on above: Performed By: #### L 100.0100, L500.2500 #### [facility] [address] [place], [address] Neutrophils/100 WBC (Bld) 75.4 % High 47-[address] [facility] Comment on above: Performed By: #### L 100.0100, L500.2500 #### [facility] [address] [place], [address] Nucleated RBC (Bld) [#/Vol] 0 10*3/uL Normal 0-[address] [facility] Comment on above: Performed By: #### L 100.0100, L500.2500 #### [facility] [address] [place], [address] Platelet mean volume (Bld) [Entitic vol] 9.1 fL Normal 6.2-12.[address] [facility] Comment on above: Performed By: #### L 100.0100, L500.2500 #### [facility] [address] [place], [address] Platelets (Bld) [#/Vol] 282 10*3/uL Normal 150-[address] [facility] Comment on above: Performed By: #### L 100.0100, L500.2500 #### [facility] [address] [place], [address] RBC (Bld) [#/Vol] 5.26 10*6/uL Normal 4.2-5.4 [facility] Comment on above: Performed By: #### L 100.0100, L500.2500 #### [facility] [address] [place], [address] RDW SD 38.1 fl Normal 35.1-43.[address] [facility] Comment on above: Performed By: #### L 100.0100, L500.2500 #### [facility] [address] [place], [address] WBC (Bld) [#/Vol] 11.2 10*3/uL High 4.4-11.0 [facility] Comment on above: Performed By: #### L 100.0100, L500.2500 #### [facility] [address] [place], [address] CPK Total, Creatine Kinaseon 09-06-2022 CPK TOTAL 259 U/L High 26-[address] [facility] Comment on above: Performed By: #### L 501.3620, L501.9520, L300.8000 ####[facility] [id number] [place], [address] Chest PA and Lateralon 09-06 Chest PA and Lateral [facility] [address] [place] [address] Chest PA and Lateral MR#: [id number] Acct: [id number] Name: JANET FRANK Rep #: [id number] : 2000 F 22 From: Haresh Cotto MD PCP: Dr. Genie Jackson MD Status: REG ER Study: Chest PA and Lateral Date of Exam: 09/06/22 Exam# [id number] Ordering Dr: Geoff Meza WRITING TUTOR-Christine EXAM: XR CHEST, 2 VIEWS CLINICAL INDICATION: cough TECHNIQUE: Frontal and lateral views of the chest. COMPARISON: No relevant prior studies available. FINDINGS: LUNGS AND PLEURAL SPACES: The lungs are clear. No pneumothorax. No effusion. HEART: Unremarkable. Cardiac silhouette not enlarged. MEDIASTINUM: Central airways and mediastinal contour are unremarkable. BONES/JOINTS: Unremarkable. SOFT TISSUES: Unremarkable. RAD/Chest PA and Lateral IMPRESSION: Normal chest radiographs. Electronically Signed: Haresh Cotto MD at 15:20 EDT , CC: YO Meza; Dr. Genie Jackson MD Line Assigner: Signed Normal [facility] D-Dimer Quantitative (DVT/PE )on 09-06-2022 D-DIMER QUANT < 0.27 Low 0.27-0.[address] [facility] Comment on above: Result Comment: NORM AL D-Dimer level (<0.50) indicates no DVT or PE. Performed By: #### L 501.3620, L501.9520, L300.8000 ####[facility] [id number] [place], [address] Determination of erythrocyte mean corpuscular volume (MCV)Ordered By: Geoff Meza on 09-06-2022 MCV (RBC) [Entitic vol] 79.8 fL 81-[address] [facility] Emergency Department Summary on 09-06-2022 Emergency Department Summary [facility] Medical Records Department [address] [place] [address] Emergency Department Summary 09/06/22 MR#: [id number] Acct: [id number] Name: JANET FRANK Rep #: [id number] : 2000 22 From: Geoff Meza WRITING TUTOR-C PCP: Dr. Genie Jackson MD Status:DEP ER Location: ED HPI History of Present Illness Chief Complaint: Weakness Narrative Narrative: Patient is a 22-year-old female with history of acid reflux, hypothyroidism, anxiety, migraine headaches who presents to the emergency department for generalized feeling of weakness, bilateral lower legs weakness, pain. Patient states that she was admitted 2 weeks ago at [facility] for hypokalemia. After getting replacement, she did get released. She states that she felt weak, body aches. Today, the patient feels like she has been working out her legs however she has not. She also feels weak and overly tired. She denies any chest pain however has intermittent shortness of breath. She does have a PCP, I did redo some laboratory studies 1.5 weeks ago which were negative for any abnormality. Patient states she is here today because of the leg weakness as well as the muscle pains and concern for her potassium [facility] Medical History Colitis GERD (gastroesophageal reflux disease) Hypothyroidism IBS (irritable bowel syndrome) Home Medications levothyroxine 25 mcg tablet 50 mcg PO DAILY thyroid 01/11/14 [History Last Taken 09/26/17 08:00 25 cg] cephalexin 500 mg capsule 500 mg PO Q6 #14 caps 03/02/22 [Rx Last Taken Unknown] fluoxetine 20 mg capsule 40 mg PO DAILY 03/02/22 [History Last Taken Unknown] linaclotide 145 mcg capsule (Linzess) 145 mcg PO DAILY 03/02/22 [History Last Taken Unknown] buspirone 15 mg tablet 15 mg PO TID 06/30/22 [History Last Taken Unknown] esomeprazole magnesium 40 mg capsule,delayed release 40 mg PO DAILY 06/30/22 [History Last Taken Unknown] tizanidine 4 mg tablet 4 mg PO Q4H PRN PRN Headache 06/30/22 [History Last Taken Unknown] potassium chloride 20 mEq tablet,extended release 20 meq PO BID #14 tabs 09/06/22 [Rx Last Taken Unknown] Allergy/AdvReac Type Severity Reaction Status Date / Time No Known Allergies Allergy Verified 09/06/22 13:58 Social History Smoking Status: Current every day smoker tobacco type: e-cigarettes ROS ROS ED ROS Narrative Constitutional: Negative for fever, weight loss. Positive for chills, weakness Eyes: Negative for vision loss, vision change, double vision ENT: Negative for any sore throat, ear pain, congestion Cardiovascular: Negative for any chest pain, tightness, palpitations Respiratory: Negative for any sputum production, hemoptysis, dyspnea on exertion, orthopnea. Positive for dyspnea. Positive for cough Gastrointestinal: Negative for any abdominal pain, nausea, vomiting, diarrhea, constipation, blood in stool, blood in vomit : Negative for any urinary frequency, dysuria, retention, blood in urine Muscle skeletal: Negative for any muscle joint pain, stiffness, arthralgias, neck pain, back pain. Positive for myalgias, arthralgias specifically to the lower leg. Concern for discoloration of her fingers Neurological: Negative for any headache, syncope, numbness or tingling, dizziness Skin: Negative for any rashes, lumps, itching, abrasions, lacerations Psychiatric: Negative for any depression, anxiety, stress, suicidal ideation, homicidal ideation Hematologic: Negative for any easy bruising, excessive bruising, easy bleeding Allergies: Negative for any eczema, hives, rash EXAM Physical Exam Narrative Exam Narrative: Vital signs reviewed. Patient is in no obvious respiratory distress. Patient is tachycardic however under 7 room air HEET: Head normocephalic atraumatic, TMs clear bilaterally. Posterior pharynx is clear, moist mucous membranes. Nares clear bilaterally. Neck: Supple with no lymphadenopathy or tenderness. No signs of meningismus, negative jolt sign. Cardiac: Tachycardic rate no murmurs gallops or rubs, equal peripheral pulses bilaterally. Respiratory: patient has wheezes to bilateral bases, rhonchorous breath sounds to the left middle lobe bilaterally. No chest tenderness. Abdomen: Soft, nontender, nondistended. No abdominal bruit or pulsatile masses. No hepatosplenomegaly Extremities: No peripheral edema, no signs of gross trauma or deformity. Active full range of motion of all extremities. Extremities are warm. +2 pedal pulse. Patient has pain throughout her entire legs. Mostly around the musculature. Patient's hands do show some discoloration to the dorsal aspect of her fingers. However these are warm, capillary refill less than 3 seconds. No signs or symptoms of vascular abnormality Neuro: Cranial nerves II through XII (more content not included)... Normal [facility] Hematocrit Auto (Bld) [Volum e fraction]Ordered By: Geoff Meza on 09-06-2022 Hematocrit (Bld) [Volume fraction] 42.0 % 37-[address] [facility] Ketones Test strip Ql (U)Ord ered By: Geoff Meza on 09-06-2022 Ketones Ql (U) Negative Negative [facility] - Chemistry and C hemistry - challengeOrdered By: Geoff Meza on 09-06-2022 CK [Catalytic activity/Vol] 259 U/L 26-[address] [facility] CO2 [Moles/Vol] 24.0 mmol/L 21.0-32.[address] [facility] HCG ( test) Ql (U) Negative [facility] Comment on above: Very dilute urine sp ecimens, as indicated by a low specificgravity, may not contain escrow representative levels of hCG. If is still suspected, a first morning urinespecimen should be collected 48 hours later and tested. Urea nitrogen/Creatinine [Mass ratio] 11.1 mg/mg 10-[address] [facility] - Hematology and Cell countsOrdered By: Geoff Meza on 09-06-2022 Erythrocyte distribution width (RBC) [Entitic vol] 38.1 fL 35.1-43.[address] [facility] Erythrocyte distribution width (RBC) [Ratio] 13.3 % 11.6-14.[address] [facility] Immature granulocytes/100 WBC (Bld) 0.400 % 0.0-0.[address] [facility] Comment on above: IG% - Immature Granu locytes (promyelocytes, myelocytes and metamyelocytes) > 1% indicates that a LEFT SHIFT is Present. MCH (RBC) [Entitic mass] 27.2 pg 27.0-32.[address] [facility] Nucleated RBC/100 WBC (Bld) [Ratio] 0 % 0-5 [facility] MCHC Auto (RBC) [Mass/Vol]Or dered By: Geoff Meza on 09-06-2022 MCHC (RBC) [Mass/Vol] 34.0 g/dL 32-36 [facility] Mucus LM Ql (Urine sed)Order ed By: Geoff Meza on 09-06-2022 Mucus Ql (Urine sed) 0 SEEN /hpf [facility] Nitrite Test strip Ql (U)Ord ered By: Geoff Meza on 09-06-2022 Nitrite Ql (U) Negative Negative [facility] No Panel InformationOrdered By: Geoff Meza on 09-06-2022 D-Dimer Quantitative (PE/DVT) < 0.27 FEU/ug/m 0.27-0.[address] [facility] Comment on above: NORMAL D-Dimer level (<0.50) indicates no DVT or PE. Estimated Creatinine Clearance Calc 88.59 ml/min [facility] Estimated GFR (MDRD) Amer 111 mL/min >[address] [facility] Comment on above: GFR Calc Estimated GFR (MDRD) Non-Af Amer 92 mL/min >[address] [facility] Comment on above: Non- GFR Calc Thyroid Stimulating Hormone (TSH) 1.82 uIU/mL 0.358-3.[address] [facility] Platelets bldOrdered By: Yelena Meza on 09-06-2022 Platelets (Bld) [#/Vol] 282 10*3/uL 150-[address] [facility] ,Urineon 09-06-2022 Beta HCG ( test) Ql (U) Negative Normal [facility] Comment on above: Order Comment: CLEAN CATCH Result Comment: Very dilute urine specimens, as indicated by a low specific gravity, may not contain escrow representative levels of hCG. If is still suspected, a first morning urine specimen should be collected 48 hours later and tested. Performed By: #### L 400.0001, L400.7600 ####[facility] [address] [place], [place], [id number] Protein Test strip Ql (U)Ord ered By: Geoff Meza on 09-06-2022 Protein Ql (U) 15 mg/dl Negative [facility] Serum or plasma calcium lesley urement (mass/volume)Ordered By: Geoff Meza on 09-06-2022 Calcium [Mass/Vol] 9.4 mg/dL 8.5-10.1 [facility] Serum or plasma creatinine m easurement (mass/volume)Ordered By: Geoff Meza on 09-06-2022 Creatinine [Mass/Vol] 0.81 mg/dL 0.55-1.02 [facility] Comment on above: The validity of the calculated GFR & GFRAA in patients over 70 years has not been determined. Clinical correlation is essential. Serum or plasma urea nitroge n measurement (mass/volume)Ordered By: Geoff Meza on 09-06-2022 Urea nitrogen [Mass/Vol] 9 mg/dL 7-[address] [facility] Squamous epithelial cells de tection in urine sediment by light microscopyOrdered By: Geoff Meza on 09-06-2022 Epithelial cells.squamous LM Ql (Urine sed) 0-5 SEEN /hpf 5-[address] [facility] Thin prep Papanicolaou smear with manual screeningOrdered By: Geoff Meza on 09-06-2022 Thin prep Papanicolaou smear with manual screening 9 5-[address] [facility] Thyroid Stim Hormone (TSH)on 09-06-2022 TSH 1.82 uIU/mL Normal 0.358-3.[address] [facility] Comment on above: Performed By: #### L 501.3620, L501.9520, L300.8000 ####[facility] [address] [place], [place], [id number] Urinalysis, Completeon 09-06 EPI,SQUAMOUS 0-5 SEEN Normal 5-[address] [facility] Comment on above: Order Comment: CLEAN CATCH Performed By: #### L 400.0001, L400.7600 ####[facility] [address] [place], [address] BACTERIA 0 SEEN Normal None Seen [facility] Comment on above: Order Comment: CLEAN CATCH Performed By: #### L 400.0001, L400.7600 ####[facility] [address] [place], [address] Mucus Ql (Urine sed) 0 SEEN Normal [facility] Comment on above: Order Comment: CLEAN CATCH Performed By: #### L 400.0001, L400.7600 ####[facility] [address] [place], [address] RBC 0 SEEN Normal 0-[address] [facility] Comment on above: Order Comment: CLEAN CATCH Performed By: #### L 400.0001, L400.7600 ####[facility] [address] [place], [address] WBC 0 SEEN Normal 0-[address] [facility] Comment on above: Order Comment: CLEAN CATCH Performed By: #### L 400.0001, L400.7600 ####[facility] [address] [place], [address] Urine blood detectionOrdered By: Geoff Meza on 09-06-2022 RBC Ql (U) 10 /ul Negative [facility] RBC Ql (U) 0 SEEN /hpf 0-[address] [facility] Urine clarityOrdered By: Yelena Meza on 09-06-2022 Clarity (U) Clear Clear [facility] Urine color determinationOrd ered By: Geoff Meza on 09-06-2022 Color (U) Yellow Yellow [facility] Urine glucose detectionOrder ed By: Geoff Meza on 09-06-2022 Glucose Ql (U) Normal mg/dl Normal [facility] Urine leukocyte esterase det ection by dipstickOrdered By: Geoff Meza on 09-06-2022 Leukocyte esterase Test strip Ql (U) Negative Negative [facility] Urine pHOrdered By: Geoff cardoza on 09-06-2022 pH (U) 7.0 [pH] 5.0 - 8.[address] [facility] Urine sediment bacteria coun t by microscopy (number/high power field)Ordered By: Geoff Meza on 09-06-2022 Bacteria LM.HPF (Urine sed) [#/Area] 0 /[HPF] None Seen [facility] Urine specific gravity measu rementOrdered By: Geoff Meza on 09-06-2022 Specific gravity (U) [Rel density] 1.010 1.002-1.[address] [facility] Urobilinogen Auto test strip Ql (U)Ordered By: Geoff Meza on 09-06-2022 Urobilinogen Ql (U) Normal mg/dl Normal [facility] BASIC METABOLIC PANELon 08-03 Anion gap [Moles/Vol] 15 mmol/L Normal 10 - 20 [facility] Comment on above: Order Comment: Martin d- RB to Puja Yepez, 08/22/2022 15:26 Performed By: #### B MP #### [address] [address] Potassium [Moles/Vol] 2.9 mmol/L Critically low 3.5 - 5.3 [facility] Comment on above: Order Comment: Martin d- RB to Puja Yepez, 08/22/2022 15:26 Result Comment: Conf irmed by repeat analysis Called- RB to Puja Yepez, 08/22/2022 15:26 Performed By: #### B MP #### [address] [address] Calcium [Mass/Vol] 9.3 mg/dL Normal 8.6 - 10.3 [facility] Comment on above: Order Comment: Martin d- RB to Puja Yepez, 08/22/2022 15:26 Performed By: #### B MP #### [address] [address] Chloride [Moles/Vol] 103 mmol/L Normal 98 - 107 [facility] Comment on above: Order Comment: Martin d- RB to Puja Yepez, 08/22/2022 15:26 Performed By: #### B MP #### [address] [address] Creatinine [Mass/Vol] 0.67 mg/dL Normal 0.50 - 1.05 [facility] Comment on above: Order Comment: Martin d- RB to Puja Yepez, 08/22/2022 15:26 Performed By: #### B MP #### [address] [address] eGFR FEMALE >90 Normal >90 [facility] Comment on above: Order Comment: Martin d- RB to Puja Yepez, 08/22/2022 15:26 Result Comment: CALC ULATIONS OF ESTIMATED GFR ARE PERFORMED USING THE 2020 CKD-EPI STUDY REFIT EQUATION WITHOUT THE RACE VARIABLE FOR THE IDMS-TRACEABLE CREATININE METHODS. https://jasn.asnjournals.org/content/early/ASN.16185 [address]251 Performed By: #### B MP #### [place] [id number] Glucose [Mass/Vol] 79 mg/dL Normal 74 - 99 [facility] Comment on above: Order Comment: Martin d- RB to Puja Yepez, 08/22/2022 15:26 Performed By: #### B MP #### [address] [address] HCO3 (Bld) [Moles/Vol] 22 mmol/L Normal 21 - 32 [facility] Comment on above: Order Comment: Martin d- RB to Puja Yepez, 08/22/2022 15:26 Performed By: #### B MP #### [address] [address] Sodium [Moles/Vol] 137 mmol/L Normal 136 - 145 [facility] Comment on above: Order Comment: Martin d- RB to Puja Yepez, 08/22/2022 15:26 Performed By: #### B MP #### [address] [address] Urea nitrogen [Mass/Vol] 6 mg/dL Normal 6 - 23 [facility] Comment on above: Order Comment: Martin d- RB to Puja Yepez, 08/22/2022 15:26 Performed By: #### B MP #### [address] [address] CBC AND DIFFERENTIALon 08-22 % AUTOMATED IMMATURE GRAN 0.4 % Normal 0.0 - 0.9 [facility] Comment on above: Result Comment: Chioma ture Granulocyte Count (IG) includes promyelocytes, myelocytes and metamyelocytes but does not include bands. Percent differential counts (%) should be interpreted in the context of the absolute cell counts (cells/L). Performed By: #### C BCDF #### [place] [id number] Basophils (Bld) [#/Vol] 0.06 10*3/uL Normal 0.00 - 0.10 [facility] Comment on above: Performed By: #### C BCDF #### [place] [id number] Basophils/100 WBC (Bld) 0.6 % Normal 0.0 - 2.0 [facility] Comment on above: Performed By: #### C BCDF #### [place] [id number] Eosinophils (Bld) [#/Vol] 0.10 10*3/uL Normal 0.00 - 0.70 [facility] Comment on above: Performed By: #### C BCDF #### [place] [id number] Eosinophils/100 WBC (Bld) 0.9 % Normal 0.0 - 6.0 [facility] Comment on above: Performed By: #### C BCDF #### [place] [id number] Erythrocyte distribution width (RBC) [Ratio] 13.3 % Normal 11.5 - 14.5 [facility] Comment on above: Performed By: #### C BCDF #### [place] [id number] Hematocrit (Bld) [Volume fraction] 40.0 % Normal 36.0 - 46.0 [facility] Comment on above: Performed By: #### C BCDF #### [place] [id number] Hemoglobin (Bld) [Mass/Vol] 13.6 g/dL Normal 12.0 - 16.0 [facility] Comment on above: Performed By: #### C BCDF #### [address] [address] Lymphocytes (Bld) [#/Vol] 2.50 10*3/uL Normal 1.20 - 4.80 [facility] Comment on above: Performed By: #### C BCDF #### [address] [address] Lymphocytes/100 WBC (Bld) 23.1 % Normal 13.0 - 44.0 [facility] Comment on above: Performed By: #### C BCDF #### [address] [address] MCHC (RBC) [Mass/Vol] 34.0 g/dL Normal 32.0 - 36.0 [facility] Comment on above: Performed By: #### C BCDF #### [address] [address] MCV (RBC) [Entitic vol] 79 fL Low 80 - 100 [facility] Comment on above: Performed By: #### C BCDF #### [address] [address] Monocytes (Bld) [#/Vol] 0.84 10*3/uL Normal 0.10 - 1.00 [facility] Comment on above: Performed By: #### C BCDF #### [address] [address] Monocytes/100 WBC (Bld) 7.7 % Normal 2.0 - 10.0 [facility] Comment on above: Performed By: #### C BCDF #### [address] [address] Neutrophils (Bld) [#/Vol] 7.30 10*3/uL Normal 1.20 - 7.70 [facility] Comment on above: Result Comment: Perc ent differential counts (%) should be interpreted in the context of the absolute cell counts (cells/L). Performed By: #### C BCDF #### [address] [address] Neutrophils/100 WBC (Bld) 67.3 % Normal 40.0 - 80.0 [facility] Comment on above: Performed By: #### C BCDF #### [address] [address] Platelets (Bld) [#/Vol] 304 10*3/uL Normal 150 - 450 [facility] Comment on above: Performed By: #### C BCDF #### [address] [address] RBC 5.08 x10E12/L Normal 4.00 - 5.20 [facility] Comment on above: Performed By: #### C BCDF #### [address] [address] WBC (Bld) [#/Vol] 10.8 10*3/uL Normal 4.4 - 11.3 [facility] Comment on above: Performed By: #### C BCDF #### [address] [address] [address] ABDOMEN AND PELVIS W IV C ONTRASTon 08-22-2022 CT ABDOMEN AND PELVIS W IV CONTRAST Patient Name: JANET FRANK STUDY: CT ABDOMEN AND PELVIS W IV CONTRAST; 08/22/2022 4:11 pm INDICATION: abd pain, diarrhea . COMPARISON: 07/30/2020 ACCESSION NUMBER(S): [id number] ORDERING CLINICIAN: TRIXIE BEARD TECHNIQUE: CT of the abdomen and pelvis was performed. Standard contiguous axial images were obtained at 3 mm slice thickness through the abdomen and pelvis. Coronal and sagittal reconstructions at 3 mm slice thickness were performed. 90 ml of contrast Omnipaque 350 were administered intravenously without immediate complication. FINDINGS: Lung bases are clear. Abdominal visceral organs including liver, spleen, pancreas, and adrenal glands are normal. Kidneys are normal. No obstructive uropathy. Bowel loops are normal. Appendix is normal. No free air or free fluid. Bones are normal. There are slightly prominent lymph nodes in the right lower quadrant of the mesentery similar prior examination 2020 likely normal for this patient. IMPRESSION: 1. No acute findings. Examination appears similar to prior. Electronically signed by: KAMILAH SULTANA MD Normal [facility] HCG,URINEon 08-22-2022 Beta HCG ( test) Ql (U) Negative Normal Negative [facility] Comment on above: Performed By: #### H CGU #### [address] [address] HEPATIC FUNCTION PANELon Albumin [Mass/Vol] 4.5 g/dL Normal 3.4 - 5.0 [facility] Comment on above: Performed By: #### H EPFP #### [address] [address] ALP [Catalytic activity/Vol] 61 U/L Normal 33 - 110 [facility] Comment on above: Performed By: #### H EPFP #### [address] [address] ALT [Catalytic activity/Vol] 24 U/L Normal 7 - 45 [facility] Comment on above: Result Comment: Geraldine ents treated with Sulfasalazine may generate falsely decreased results for ALT. Performed By: #### H EPFP #### [address] [address] AST [Catalytic activity/Vol] 23 U/L Normal 9 - 39 [facility] Comment on above: Performed By: #### H EPFP #### [address] [address] Bilirubin [Mass/Vol] 0.5 mg/dL Normal 0.0 - 1.2 [facility] Comment on above: Performed By: #### H EPFP #### [address] [address] Bilirubin.indirect [Mass/Vol] 0.1 mg/dL Normal 0.0 - 0.3 [facility] Comment on above: Performed By: #### H EPFP #### [address] [address] Protein [Mass/Vol] 7.4 g/dL Normal 6.4 - 8.2 [facility] Comment on above: Performed By: #### H EPFP #### [place] [id number] LIPASEon 08-22-2022 Lipase [Catalytic activity/Vol] 16 U/L Normal 9 - 82 [facility] Comment on above: Result Comment: Sofi puncture immediately after or during the administration of Metamizole may lead to falsely low results. Testing should be performed immediately prior to Metamizole dosing. A-zfrnyw-j-benzoquinone imine (metabolite of Acetaminophen) will generate erroneously low results in samples for patients that have taken toxic doses of acetaminophen. Performed By: #### L IPAS ####[address] [address] Provider Note - ED v3on 08-03 Provider Note - ED v3 Provider Note: Chart Review: ED NOTES ED NOTES: ====HPI==== Patient is a 22-year-old female who presents to the emergency department with a chief complaint of generalized abdominal pain, cramping, and vomiting. She states that she has had symptoms for approximately 3 days. She states that whenever she eats she vomits. She states that she has had a small amount of loose stool in which she reports is green in color. She states that she has a history of colitis and this feels similar. Patient has recently been on penicillin for a dental infection. She denies any fever but states that she did feel chilled the other day. No chest pain or shortness of breath. No alleviating factors. Pain is worse after eating. PMHX: Colitis, Hypothyroidism, GERD Social HX: moderate user TOBACCO occasionally ETOH Denies DRUGS ====Review of Systems==== 10 point system review is negative except for those specifically mentioned in history of present illness ====Physical Exam==== Constitutional/General: Alert and oriented x3, well appearing, nontoxic, and in NAD. Head: Normocephalic and atraumatic. Eyes: PERRL, EOMI, conjunctive normal, sclera nonicteric, subconjunctival layer is pink. Mouth: Oropharynx clear, handling secretions, no trismus, no asymmetry of the posterior oropharynx or uvular edema Neck: Supple, full ROM, non tender to palpation in the midline, no stridor, no crepitus, no meningeal signs. Trachea at midline. Respiratory: Lungs clear to auscultation bilaterally, no wheezes, rales, or rhonchi, not in respiratory distress. Cardiovascular: Regular rate, regular rhythm, no murmurs, gallops, or rubs, 2+ distal pulses. Chest: normal chest wall movement GI: Abdomen soft, nontender, nondistended, + BS, no organomegaly, no palpable masses, no rebound, guarding, or rigidity. Musculoskeletal: Moves all extremities x4, warm and well perfused, no clubbing, cyanosis, or edema, cap refill <3 seconds Integument: Skin warm and dry, no rashes. Neurologic: GCS 15, no focal deficits, symmetric strength 5/5 in the upper and lower extremities bilaterally. Psychiatric: Normal affect. ====ED Course and Medical Decision Making==== See MDM section for review of findings & plan of care. Portions of this note were dictated by speech recognition. An attempt at proof reading was made to minimize errors. Minor errors in tester sound may be present. Please call if questions.. HISTORY OF PRESENTING ILLNESS JANET is a 22 year old Female and was seen by me at 22-Aug-2022 14:02 for a chief complaint of abdominal pain (Patient to ED with two days of generalized abd pain. Patient is vomiting after eating. Patient has had green diarrhea. Recently on penicillin for a mouth infection, has a history of colitis.)(1). Triage Information: Most recent Vital Sign Value Date Temp (F): 97.8 08-22-2022 14:04 Temp (C): 36.5 08-22-2022 14:04 Heart Rate (beats/min): 121 08-22-2022 14:04 Respirations (breaths/min): 18 08-22-2022 14:04 SpO2 (%): 96 08-22-2022 14:04 BP Systolic (mm Hg): 123 08-22-2022 14:04 BP Diastolic (mm Hg): 96 08-22-2022 14:04 PAST MEDICAL HISTORY ALLERGIES/INTOLERANCES: No Known Allergies HEALTH HISTORY: No documented data. OUTPATIENT MEDICATIONS: Home Medications Review Status for Reconciliation: Complete Med Status: Patient Currently Takes Medications Drug Name: Linzess 145 mcg oral capsule Instructions: 1 cap(s) orally once a day Drug Name: esomeprazole 40 mg oral delayed release capsule Instructions: 1 cap(s) orally 2 times a day Drug Name: levothyroxine 50 mcg (0.05 mg) oral tablet Instructions: 1 tab(s) orally once a day Drug Name: FLUoxetine 40 mg oral capsule Instructions: 1 cap(s) orally once a day Drug Name: busPIRone 15 mg oral tablet Instructions: 1 tab(s) orally 3 times a day Drug Name: tiZANidine 4 mg oral tablet Instructions: 1 tab(s) orally every 8 hours, As Needed Drug Name: albuterol 90 mcg/inh inhalation aerosol Instructions: 2 puff(s) inhaled every 6 hours, As Needed Drug Name: K-Tab 20 mEq oral tablet, extended release Instructions: 1 tab(s) orally 2 times a day Drug Name: ondansetron 4 mg oral tablet, disintegrating Instructions: 1 tab(s) orally 3 times a day Drug Name: dicyclomine 20 mg oral tablet Instructions: 1 tab(s) orally 4 times a day SIGNIFICANT EVENTS: Past Medical History Description:Colitis Description:Hypothyroid Description:GERD CRITICAL CARE RESULTS: Recent Lab Results: I have reviewed these laboratory results: Urine Test 22-Aug-2022 14:36:00 ResultValue HCG, Urine NEGATIVE Urinalysis with Culture if Indicated 22-Aug-2022 14:36:00 ResultValue Color, Urine Yellow Reference Range: STRAW,YELLOW Appearance, Urine CLEAR Specific Hester, Urine 1.009 pH, Urine 6.0 Protein, Urine 30(1+) A Glucose, Urine NEGATIVE (more content not included)... Normal [facility] Risk Screen - Adult Emergenc yon 08-22-2022 Risk Screen - Adult Emergency Preferred Language: Preferred Language: Preferred Language for Discussing Health Care (patient/designee)Albanian Patient Preferred Pharmacy: Patient Preferred Pharmacy Statement: I have reviewed and updated the patient's preferred pharmacy selection for today's visit. Advanced Directives: Advance Directive/DNRno Advance Directive Information Givenpatient/family declined Family Violence Adult: Abuse Screen: Are you or have you been threatened or abused physically, emotionally, or sexually by anyoneno Learning Assessment (Patient): Learning Assessment (Patient): Patient is Able to be Assessed for Learningyes Factors Influencing Readiness to Learnacuteness of illness Factors that Impact Ability to Learnacuteness of illness Devices/Methods Used to Communicatenone Learning Preferencesindividual instruction; verbal instruction Cultural Considerationsnone Developmental Considerationsnone Amish Considerationsnone Learning Assessment (Other Learner): Learning Assessment (Other Learner): Other learner availableno Pressure Injury/TB/Substance: Pressure Injury: Pressure Injury Present on Admissionno Do you have a coughno Smoking Statusmoderate user (uses 11-30 cig/day, OR 0.5-1.5 ppd, OR 2-3 cans/pouches loose leaf tobacco per week, OR 0.5-1.5 vape pods per day) Tobacco Cessation Education (provide if tobacco use within the last 12 mos) patient declined Vape Alcohol Useoccasionally Drug Useoccasionally Smokes marijuana Admission Risk Screen: Significant IndicatorsComplete CAGE: CAGE: Is this an injured patient at a Trauma Center (DRE/Ashley/Ellis/Katrina/Zandra Adhikari/Pito): no Electronic Signatures: Annel Segundo (RN) (Signed 22-Aug-2022 14:11) Authored: Preferred Language, Patient Preferred Pharmacy, Advanced Directives, Family Violence Adult, Learning Assessment (Patient), Learning Assessment (Other Learner), Pressure Injury/TB/Substance, Pressure Injury, CAGE Last Updated: 22-Aug-2022 14:11 by Annel Segundo (RN) [facility] Triage - EDon 08-22-2022 Triage - ED Quick Triage: Are You no Are You Currently Breastfeedingno Chart Review: ARRIVAL INFORMATION Mode of Arrival: private vehicle CHIEF COMPLAINT JANET FRANK is a Female patient with a chief complaint of abdominal pain (Patient to ED with two days of generalized abd pain. Patient is vomiting after eating. Patient has had green diarrhea. Recently on penicillin for a mouth infection, has a history of colitis.). Triage Date/Time: 22-Aug-2022 14:04 GARRETT: 3 Pain Rating (0-10): 8 = Severe Pain location: abd pain Vital Signs: Temperature: 97.8F ( 36.5C) Blood Pressure: 123/96 Mean: Heart Rate: 121 Respiratory Rate: 18 Pulse Oximetry: 96% Height: 5 feet 3.00 inches. 160.0 CM Weight: 229.2 pounds. Calculated 104.0 kg. 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 Symptoms Are Negative For: constipation, diaphoresis, distention, fever and rectal blood. Risk Screens Suicide Risk Screen In the Past Month: Have you wished you were or wished you could go to sleep and not wake up no In the Past Month: Have you had any actual thoughts of killing yourself no In Your Lifetime: Have you ever done anything, started to do anything, or prepared to do anything to end your life no Erwin Fall Scale Screening Has the patient fallen before (or is the patient in the ED as a result of a fall) has not had a fall Does the patient have an impaired gait does not have impaired gait Is the patient cognitively impaired not cognitively impaired Interventions: Erwin Fall Interventions: LOW INTERVENTIONS: *patient oriented to surroundings and call system, * patient/family falls education completed and documented, *patients fall status communicated during bedside handoff, *whiteboard updated, *mode of toileting discussed with patient, *bed in low position with brakes locked, *call light in reach, * non-skid footwear TRAVEL HISTORY Travel History Coronavirus Screening: no exposure or symptoms Travel Exposure History: NO travel to International locations in the past 30 days PAIN Pain Scale Used: KOLBY Pain Rating (0-10): 8 = Severe Past Medical History: Past Medical History Reviewedyes GERD: Past Medical History, Active Hypothyroid: Past Medical History, Active Colitis: Past Medical History, Active Electronic Signatures: Annel Segundo ([email or web address]) (Signed 22-Aug-2022 14:09) Entered: Risk Screens, Pain, Travel History, Chart Review, Scores, Past Medical History Authored: Quick Triage, Risk Screens, Pain, Travel History, Chart Review, Scores, Past Medical History Last Updated: 22-Aug-2022 14:09 by Annel Segundo ([email or web address]) Normal [facility] UA MICROSCOPICon 08-22-2022 RBC 2 /HPF Normal 0-5 [facility] Comment on above: Performed By: #### U [facility] #### [place] [address] SQUAMOUS EPITH. CELLS 3 /HPF Normal [facility] Comment on above: Performed By: #### U AMIC #### [address] [address] WBC 1 /HPF Normal 0-5 [facility] Comment on above: Performed By: #### U AMIC #### [address] [address] URINALYSIS WITH CULTURE IF I NDICATEDon 08-22-2022 Appearance (U) CLEAR Normal [facility] Comment on above: Performed By: #### U ARFX #### [address] [address] Bilirubin Ql (U) Negative Normal NEGATIVE [facility] Comment on above: Performed By: #### U ARFX #### [place] [address] Color (U) Yellow Normal STRAW,YELLOW [facility] Comment on above: Performed By: #### U ARFX #### [place] [address] Glucose Ql (U) Negative Normal NEGATIVE [facility] Comment on above: Performed By: #### U ARFX #### [address] [address] Hemoglobin Ql (U) Negative Normal NEGATIVE [facility] Comment on above: Performed By: #### U ARFX #### [address] [address] Ketones Ql (U) 20(1+) Abnormal NEGATIVE [facility] Comment on above: Performed By: #### U ARFX #### [address] [address] Leukocyte esterase Test strip Ql (U) Negative Normal NEGATIVE [facility] Comment on above: Performed By: #### U ARFX #### [address] [address] Nitrite Ql (U) Negative Normal NEGATIVE [facility] Comment on above: Performed By: #### U ARFX #### [place] [id number] pH (U) 6.0 [pH] Normal 5.0 - 8.0 [facility] Comment on above: Performed By: #### U ARFX #### [address] [address] Protein Ql (U) 30(1+) Abnormal NEGATIVE [facility] Comment on above: Performed By: #### U ARFX #### [address] [address] Specific gravity (U) [Rel density] 1.009 Normal 1.005 - 1.035 [facility] Comment on above: Performed By: #### U ARFX #### [address] [address] Urobilinogen (U) [Mass/Vol] mg/dL Normal 0.0 - 1.9 [facility] Comment on above: Performed By: #### U ARFX #### [address] [address] Absolute lymphocyte countOrd ered By: Dr. Spivey on 06-30-2022 Lymphocytes Auto (Unsp spec) [#/Vol] 2.06 10*3/uL 0.83-4.[address] [facility] Basophil percentageOrdered B y: Dr. Spivey on 06-30-2022 Basophil percentage 0 SEEN /hpf 0-5 [facility] Basophils/100 WBC (Bld) 0.6 % 0-[address] [facility] Bilirubin [Mass/Vol] 0.40 mg/dL 0.20-1.00 [facility] Comment on above: For patients on eltr ombopag therapy, use of Dimension [place] TBIL is not recommended. Chloride [Moles/Vol] 111 mmol/L 98-107 [facility] Eosinophils/100 WBC (Bld) 1.6 % 0-[address] [facility] Glucose [Mass/Vol] 99 mg/dL 74-106 [facility] Neutrophils (Bld) [#/Vol] 6.6 10*3/uL 2.0-7.[address] [facility] Neutrophils/100 WBC (Bld) 69.8 % 47-[address] [facility] Potassium [Moles/Vol] 3.7 mmol/L 3.5-5.1 [facility] Protein [Mass/Vol] 7.3 g/dL 6.4-8.2 [facility] Sodium [Moles/Vol] 141 mmol/L 136-145 [facility] WBC (Bld) [#/Vol] 9.4 10*3/uL 4.4-11.0 [facility] Beta hCG serum qualOrdered B y: Dr. Spivey on 06-30-2022 Beta HCG ( test) Ql Negative [facility] Bilirubin Test strip Ql (U)O rdered By: Dr. Spivey on 06-30-2022 Bilirubin Ql (U) Negative Negative [facility] Blood erythrocytes count (nu mber/volume)Ordered By: Dr. Spivey on 06-30-2022 RBC (Bld) [#/Vol] 5.18 10*6/uL 4.2-5.4 [facility] Blood hemoglobin measurement (mass/volume)Ordered By: Dr. Spivey on 06-30-2022 Hemoglobin (Bld) [Mass/Vol] 13.9 g/dL 12.0-15.[address] [facility] Blood lymphocytes/100 leukoc ytesOrdered By: Dr. Spivye on 06-30-2022 Lymphocytes/100 WBC (Bld) 21.9 % 19-[address] [facility] Blood monocytes/100 leukocyt esOrdered By: Dr. Spivey on 06-30-2022 Monocytes/100 WBC (Bld) 5.6 % 0-[address] [facility] Blood platelet mean volumeOr dered By: Dr. Spivey on 06-30-2022 Platelet mean volume (Bld) [Entitic vol] 9.3 fL 6.2-12.[address] [facility] Determination of erythrocyte mean corpuscular volume (MCV)Ordered By: Dr. Spivey on 06-30-2022 MCV (RBC) [Entitic vol] 81.7 fL 81-[address] [facility] Hematocrit Auto (Bld) [Volum e fraction]Ordered By: Dr. Spivey on 06-30-2022 Hematocrit (Bld) [Volume fraction] 42.3 % 37-[address] [facility] Ketones Test strip Ql (U)Ord ered By: Dr. Spivey on 06-30-2022 Ketones Ql (U) Negative Negative [facility] Laboratory - Chemistry and C hemistry - challengeOrdered By: Dr. Spivey on 06-30-2022 ALP [Catalytic activity/Vol] 67 U/L 45-[address] [facility] ALT [Catalytic activity/Vol] 26 U/L 13-[address] [facility] CO2 [Moles/Vol] 23.0 mmol/L 21.0-32.[address] [facility] Globulin (S) [Mass/Vol] 3.6 g/dL 2.2-4.[address] [facility] Lipase [Catalytic activity/Vol] 109 U/L 73-[address] [facility] Urea nitrogen/Creatinine [Mass ratio] 14.7 mg/mg 10-[address] [facility] Laboratory - Hematology and Cell countsOrdered By: Dr. Spivey on 06-30-2022 Erythrocyte distribution width (RBC) [Entitic vol] 38.2 fL 35.1-43.[address] [facility] Erythrocyte distribution width (RBC) [Ratio] 12.9 % 11.6-14.[address] [facility] Immature granulocytes/100 WBC (Bld) 0.500 % 0.0-0.[address] [facility] Comment on above: IG% - Immature Granu locytes (promyelocytes, myelocytes and metamyelocytes) > 1% indicates that a LEFT SHIFT is Present. MCH (RBC) [Entitic mass] 26.8 pg 27.0-32.[address] [facility] Nucleated RBC/100 WBC (Bld) [Ratio] 0 % 0-[address] [facility] MCHC Auto (RBC) [Mass/Vol]Or dered By: Dr. Spivey on 06-30-2022 MCHC (RBC) [Mass/Vol] 32.9 g/dL 32-36 [facility] Mucus LM Ql (Urine sed)Order ed By: Dr. Spivey on 06-30-2022 Mucus Ql (Urine sed) 0 SEEN /hpf [facility] Nitrite Test strip Ql (U)Ord ered By: Dr. Spivey on 06-30-2022 Nitrite Ql (U) Negative Negative [facility] No Panel InformationOrdered By: Dr. Spivey on 06-30-2022 Estimated Creatinine Clearance Calc 105.53 ml/min [facility] Estimated GFR (MDRD) Amer 137 mL/min >[address] [facility] Comment on above: GFR Calc Estimated GFR (MDRD) Non-Af Amer 113 mL/min >[address] [facility] Comment on above: Non- GFR Calc Platelets bldOrdered By: Dr. Spivey on 06-30-2022 Platelets (Bld) [#/Vol] 285 10*3/uL 150-[address] [facility] Protein Test strip Ql (U)Ord ered By: Dr. Spivey on 06-30-2022 Protein Ql (U) 30 mg/dl Negative [facility] Serum or plasma albumin lesley urement (mass/volume)Ordered By: Dr. Spivey on 06-30-2022 Albumin [Mass/Vol] 3.7 g/dL 3.2-5.0 [facility] Serum or plasma albumin/glob ulin mass ratioOrdered By: Dr. Spivey on 06-30-2022 Albumin/Globulin [Mass ratio] 1.0 {ratio} 0.9-2.[address] [facility] Serum or plasma calcium lesley urement (mass/volume)Ordered By: Dr. Spivey on 06-30-2022 Calcium [Mass/Vol] 9.0 mg/dL 8.5-10.1 [facility] Serum or plasma creatinine m easurement (mass/volume)Ordered By: Dr. Spivey on 06-30-2022 Creatinine [Mass/Vol] 0.68 mg/dL 0.55-1.02 [facility] Comment on above: The validity of the calculated GFR & GFRAA in patients over 70 years has not been determined. Clinical correlation is essential. Serum or plasma urea nitroge n measurement (mass/volume)Ordered By: Dr. Spivey on 06-30-2022 Urea nitrogen [Mass/Vol] 10 mg/dL 7-[address] [facility] Squamous epithelial cells de tection in urine sediment by light microscopyOrdered By: Dr. Spivey on 06-30-2022 Epithelial cells.squamous LM Ql (Urine sed) 5-10 SEEN /hpf 5-[address] [facility] Thin prep Papanicolaou smear with manual screeningOrdered By: Dr. Spivey on 06-30-2022 Thin prep Papanicolaou smear with manual screening 14 U/L 15-[address] [facility] Thin prep Papanicolaou smear with manual screening 7 5-[address] [facility] Urine blood detectionOrdered By: Dr. Spivey on 06-30-2022 RBC Ql (U) 25 /ul Negative [facility] RBC Ql (U) 0-5 SEEN /hpf 0-[address] [facility] Urine clarityOrdered By: Dr. Spivey on 06-30-2022 Clarity (U) Sl. Cloudy Clear [facility] Urine color determinationOrd ered By: Dr. Spivey on 06-30-2022 Color (U) Yellow Yellow [facility] Urine glucose detectionOrder ed By: Dr. Spivey on 06-30-2022 Glucose Ql (U) Normal mg/dl Normal [facility] Urine leukocyte esterase det ection by dipstickOrdered By: Dr. Spivey on 06-30-2022 Leukocyte esterase Test strip Ql (U) Negative Negative [facility] Urine pHOrdered By: Dr. Ian alston on 06-30-2022 pH (U) 6.5 [pH] 5.0 - 8.[address] [facility] Urine sediment bacteria coun t by microscopy (number/high power field)Ordered By: Dr. Spivey on 06-30-2022 Bacteria LM.HPF (Urine sed) [#/Area] 1 /[HPF] None Seen [facility] Urine specific gravity measu rementOrdered By: Dr. Spivey on 06-30-2022 Specific gravity (U) [Rel density] 1.015 1.002-1.[address] [facility] Urobilinogen Auto test strip Ql (U)Ordered By: Dr. Spivey on 06-30-2022 Urobilinogen Ql (U) Normal mg/dl Normal [facility] XR WRIST INJURY 4V PA/LAT/OB L/SCAPH LEFTon 12-24-2021 [facility] XR Wrist - left 4 Viewson IMPRESSION: No acute osseous abnormality. Line Assigner: PSCB Transcribe Date/Time: Dec 24 2021 2:35P Dictated by : MEGAN ALEJANDRA DO This examination was interpreted and the report reviewed and electronically signed by: MEGAN ALEJANDRA DO on Dec 24 2021 2:37PM [facility] DIVISION OF RADIOLOGY * * *Final Report* * * DATE OF EXAM: Dec 24 2021 2:33PM WOX 5272 - XR WRIST 4V PA/LAT/OBL/SCAPH LT / PROCEDURE REASON: Left wrist pain * * * * Physician Interpretation * * * * EXAMINATION: XR WRIST 4V PA/LAT/OBL/SCAPH LT PATIENT/TECHNOLOGIST PROVIDED HISTORY: pain for 2 months along ulnar side of left wrist denies inj fingers will cramp up also CLINICAL INFORMATION: 21 years old Female with Left wrist pain TECHNIQUE: XR WRIST 4V PA/LAT/OBL/SCAPH LT Laterality: LEFT Number of different views (projections): 4 COMPARISON: None RESULT: No fracture. Joint spaces and carpal rows are maintained. Bony mineralization is normal. No erosions or other significant significant abnormality. DIVISION OF RADIOLOGY Provider, Kimberli Savage [facility] - 12/24/2021 * * *Final Report* * * DATE OF EXAM: Dec 24 2021 2:33PM WOX 5272 - XR WRIST 4V PA/LAT/OBL/SCAPH LT / PROCEDURE REASON: Left wrist pain * * * * Physician Interpretation * * * * EXAMINATION: XR WRIST 4V PA/LAT/OBL/SCAPH LT PATIENT/TECHNOLOGIST PROVIDED HISTORY: pain for 2 months along ulnar side of left wrist denies inj fingers will cramp up also CLINICAL INFORMATION: 21 years old Female with Left wrist pain TECHNIQUE: XR WRIST 4V PA/LAT/OBL/SCAPH LT Laterality: LEFT Number of different views (projections): 4 COMPARISON: None RESULT: No fracture. Joint spaces and carpal rows are maintained. Bony mineralization is normal. No erosions or other significant significant abnormality. IMPRESSION IMPRESSION: No acute osseous abnormality. Line Assigner: KIERAN Transcribe Date/Time: Dec 24 2021 2:35P Dictated by : MEGAN ALEJANDRA DO This examination was interpreted and the report reviewed and electronically signed by: MEGAN ALEJANDRA DO on Dec 24 2021 2:37PM EST [facility] Radiology Study observation (narrative) [facility] XR Wrist - left 4 ViewsOrder ed By: [facility] Provider on 12-24-2021 [facility] H. pylori IgG IA Qlon 2021 H. pylori IgG, Qualitative Negative Negative [facility] ANES Esme 10-14-2017 ANES POST HNO ID: [id number] thor: Meg FreitasinService: AnesthesiologyAuthor Type: AnesthesiologistType: Anesthesia PostOpFiled: 10/14/2017 4:06 PMNote Text:POST ANESTHESIA EVALUATION NOTESERVICE DATE: 10/14/2017SERVICE TIME: 4:06 PMDOB: 2000Vitals: 10/14/1813Temp: 36 ?C (96.8 ?F) 36.3 ?C (97.3 ?F) 10/14/1813BP: 112/65 94/56 95/58 10/14/1813Pulse: 103 85 84 10/14/1813Resp: 16 16 16 10/14/1813SpO2: 96% 100% 100%Validated Vital Signs: YesPOST ANES STATUS: No apparent anesthetic complications. The patient isappropriately hydrated with stable respiratory and cardiovascular status.Patient has safe and adequate airway control. The patient has appropriatepain relief and no significant post operative nausea or vomiting. Thepatient has achieved baseline mental status.Further assessment by Anesthesia Service: NoneOther Remarks:SIGNATURE: Meg Xie MD PATIENT NAME: Janet FrankDATE: October 14, 2017 : 4:06 PM PAGER/CONTACT #: [phone] [facility] PREOPon 10-14-2017 ANES PREOP HNO ID: [id number] thor: Meg Shookervice: AnesthesiologyAuthor Type: AnesthesiologistType: Anesthesia PreOpFiled: 10/14/2017 12:15 PMNote Text: ANESTHESIOLOGY DAY OF SURGERY NOTESERVICE DATE: 10/14/2017SERVICE TIME: 12:14 PMDOB: 2000Procedure(s) (LRB):COLONOSCOPY (N/A)Surgeon(s):Abner Watson body mass index is 38.62 kg/m? as calculated from the following: Height as of 10/12/17: 160 cm (5' 3). Weight as of 10/12/17: 98.9 kg (218 lb).Most recent hematocrit and potassium results:Hematocrit 36.3 09/24/2017Potassium 3.8 11/15/2013ANES DOS/PREOP NOTE:Vitals: [id number]: 112/65Pulse: 103Resp: 16Temp: 36 ?C (96.8 ?F)TempSrc: Temporal ArterySpO2: 96%ACTIVE PROBLEM LISTHypothyroidismMenorrha giaAbdominal Pain, Other Specified SiteAltered Bowel HabitsGerd (Gastroesophageal Reflux Disease)Non Morbid ObesityPAST MEDICAL HISTORYDiagnosis Date- Anxiety and depression [facility], Dr. Jimenez- Excessive or frequent menstruation Heavy periods, resolved with OCP- GERD (gastroesophageal reflux disease)- Hypothyroid- Non morbid obesity 10/12/2017PAST SURGICAL HISTORYProcedure Laterality Date- NONEFAMILY HISTORYProblem Relation Age of Onset- No Known Problems Mother- does not know biological father [OTHER] Father- Lipids Maternal Grandfather- Hypertension Maternal Grandfather- Heart Maternal Uncle- Diabetes Maternal Grandmother- Hypertension Maternal GrandmotherSocial History:Social HistorySubstance Use Topics- Smoking status: Current Every Day Smoker Packs/day: 0.50 Years: 5.00 Types: Cigarettes Start date: 05/04/2012- Smokeless tobacco: Never Used- Alcohol use NoNo current facility-administered medications on file prior to encounter.Current Outpatient Prescriptions on File Prior to Encounter:levothyroxine (SYNTHROID) 50 mcg tablet Take 1 tablet by mouth once daily.LINZESS 145 mcg cap Take 1 capsule by mouth once daily.Omeprazole 40 mg capsule TAKE 1 CAPSULE BY MOUTH EVERY DAY 20 TO 30MINUTES BEFORE A MEALMETHYLPREDNISOLONE ACETATE (DEPO-MEDROL INJECTION) byINJECTION(UNSPECIFIED PARENTERAL ROUTES) route.Current Facility-Administered Medications:NaCl 0.9% iv infusion 30 mL/hr INTRAVENOUS CONTINUOUS Abner StarkanAllergies: ALLERGIESNo Known AllergiesDOS EXAM: Adequate NPO Status: YesAnesthetic Risks, Benefits, Alternatives, Personnel and Consent Discussed:YesPatient agrees to proceed: YesPrevious Anesthesia: Patient has never had anesthesia and no knownanesthesia problems in the familyAirway Assessment: MP 1; Neck ROM: Full ROM without neurologic symptoms;Airway Evaluation: No significant abnormalitiesSymptoms of Sleep Apnea: NoneDentition: Teeth intactAdditional Physical Exam:Lungs: Patient health status unchanged since recent history and physical.See history and physical for exam findings.Cardiac: Patient health status unchanged since recent history andphysical. See history and physical for exam findings.Additional Pertinent Findings: N/ABlood Products: Not anticipated for this procedureAnesthetic Plan: MAC with general as back upAnesthetic Monitoring: Standard ASA MonitorsPain Management Plan: Parenteral or OralASA Class: 2Other Medical Problems: NoneChronic Beta Joanne medication administered within 24 hours: N/AI have interviewed and examined the patient. I have reviewed the medicalrecord and/or the pre-anesthesia evaluation, pertinent labs, and testresults.Significant changes in the patient's condition since the History andPhysical, not otherwise documented in primary service progress notes: NoThis contains updated information obtained within 48 hours ofSurgery/Procedure.SIGNAT URE: Meg Xie MD PATIENT NAME: Janet FrankDATE: October 14, 2017 : 12:14 PM CSN: [id number] [facility] PT EDon 10-14-2017 PT ED HNO ID: [id number] thor: Massimo OquendoRn) ISIDORO Kellyervice: NursingAuthor Type: Registered NurseType: Patient EducationFiled: 10/14/2017 3:32 PMNote Text:POST OP LEARNING RESPONSEINSTRUCTION PROVIDED TO: Patient and family memberMETHOD OF INSTRUCTION: Written instruction - handoutsVerbal instructionPATIENT / FAMILY RESPONSE: Verbalizes understanding of: POST-PROCEDUREINSTRUCTIONS -Correct actions to take to reduce post procedurecomplicationsFOLL OW-UP PLAN: Patient instructed to call with any further issuesSUPPLEMENTAL MATERIAL: NoneREFERRAL (RECOMMENDATION): NoneElectronically Signed By: Massimo Kelly RN [facility] PT ED HNO ID: [id number] thor: Pola Rasmussen) ISIDORO Blumervice: NursingAuthor Type: Registered NurseType: Patient EducationFiled: 10/14/2017 12:08 PMNote Text:PRE OP LEARNING ASSESSMENTPROCEDURE/SURGER Y: GI PROCEDURES: ColonoscopyREADINESS TO LEARNCOGNITIVE ABILITY: Alert and orientedMOTIVATION TO LEARN: EagerFAMILY SUPPORT: High - Very involved in pt carePATIENT LEARNS BEST BY: Individual InstructionVerbal InstructionFACTORS AFFECTING LEARNING: NonePHYSICAL LIMITATIONS AFFECTING LEARNING: NoneElectronically Signed By: Pola Hengst, RN In Department[facility] Normal [facility] SURGICAL PATHOLOGYon 018 SURGICAL PATHOLOGY ADDENDUM PRESENT [facility] #: [id number] Physician: ABNER TINSLEY MD FI NAL DIAGNOSIS1. Jejunum, biopsy (A) - Duodenal-type mucosa with no significantpathologic change.2. Stomach, biopsy (B) - Gastric antral-type mucosa with mild chronicinactive gastritis, see comment.- Negative for intestinal metaplasia.3. Esophagus, biopsy (C) - Squamous esophageal mucosa with rareintraepithelial eosinophils (focally up to approximately 2 eosinophils onone high power field) and inflamed gastric cardiofundic-type mucosa;negative for intestinal metaplasia.4. Colon, random, biopsy (D) - Colonic mucosa with no significantpathologic change.ES/lbk 10/16/[id number]. Given the presence of mild chronic inactive gastritis, a Helicobacterpylori immunohistochemical stain has been ordered, the results of whichwill be issued in an addendum.Cielo Al M.D.(Electronic Signature) S PECIMEN SUBMITTEDA: JEJUNUM, BIOPSY B: GASTRIC, BIOPSY C: ESOPHAGUS, BIOPSY D: RANDOM COLON, BIOPSY ADDENDUM Date Ordered: 10/19/2017 Date Reported: 10/19/2017 This addendum is issued to report the results of a Helicobacter pyloriimmunohistochemical stain that was performed on the gastric biopsy([id number], block B1) due to the presence of mild chronic inactivegastritis. The Helicobacter pylori immunohistochemical stain is negativefor Helicobacter pylori organisms. The final diagnosis remains unchanged.Laboratory Developed Test (LDT) Disclaimer:Positive and negative controls stain appropriately. Performancecharacteristics of immunohistochemical, immunofluorescent and chromogenicin-situ hybridization tests have been determined by [facility] [place] ([facility]) monster manner consistent with CLIA requirements. One or more of these tests havenot been cleared or approved by the FDA. [facility] is regulated under CLIA asqualified to perform high-complexity testing.These tests are used forclinical purposes. They should not be regarded as investigational or forresearch.ES 10/19/2017Addendum Pathologist: Cielo Al M.D.Electronic Signature CLINICAL DATACONSTIPATION, CHRONIC PPI USE, LMP: NAGROSS DESCRIPTIONA. Received in formalin is one piece of charlton, soft tissue measuring 0.3 x0.2 x 0.2 cm. Totally submitted in one cassette.B. Received in formalin is one piece of charlton, soft tissue measuring 0.4 x0.2 x 0.2 cm. Totally submitted in one cassette.C. Received in formalin is one piece of charlton, soft tissue measuring 0.3 x0.2 x 0.2 cm. Totally submitted in one cassette.D. Received in formalin are two pieces of charlton, soft tissue aggregating to0.8 x 0.3 x 0.2 cm. Totally submitted in one cassette.Gross examination performed at [facility], [address] [place] [id number] 10/14/2017 9:12:12 PMPatient ID #: [id number] of Report: 10/16/2017Date of Procedure: 10/14/2017Date of Receipt: 10/14/2017Submitted by: ABNER TINSLEY MDLocation: MEENDDiagnostic interpretation performed at [facility], [address] [facility] [address]. [facility] Comment on above: Performed By: #### P ATHS ####[facility] [address] [place], [place] [phone] NURSING PROGon 10-12-2017 NURSING PROG HNO ID: [id number] thor: Lyric Chao (Rn) Andrés, RNService: (none)Author Type: Registered NurseType: Nursing Progress NoteFiled: 10/12/2017 2:52 PMNote Text:PACC Nurse Progress NoteHistory AND Physical:PACC Visit Date: 10/12/2017Original HANDP Date: 10/12/2017ED visit Date: 09/26/2017Outside HANDP Scanned Date: N/ALabs Within Last 6 Months:CBC: Date 09/24/2017 Within acceptable limits for planned procedure.Imaging Within Last 12 Months:X-ray Abdomen/Pelvis: Date 09/08/2017 Results in EPICCardiac Testing:EKG in last 12 Months: No, Comment: Sinus Tach HR 118 Reviewed andaccepted by PACC ProviderLast Menstrual Period:LMP Date: Not recordedPostmenopausal >1yr: No,S/P Hysterectomy: NoBMI Percentile (PEDS):N/ABMI 38.63Risk Assessment:N/AAnesthesia Review:N/ANarrative:N/APre -op Considerations:Per HPI:No prior anesthesiaAnemiaGerd-treat edBMI 38.63Bronchitis-3.5 weeks ago-lungs clearNo LMP recorded. Patient has had an injectionChart Check:Jeet [place] 2017 2:44 PM [facility] HOSPon 09-30-2017 HOSP Patient:Isabel Frank jose JMRN: Height:5' 3(1.6 m)Weight:218 lb (98.884 kg)Outpatient Medications as of 10/14/17:ergocalciferol, vitamin D2, (DRISDOL) 50,000 unit capsulesucralfate (CARAFATE) 1 gram tabletlevothyroxine (SYNTHROID) 50 mcg tabletLINZESS 145 mcg capOmeprazole 40 mg capsuleMETHYLPREDNISOLONE ACETATE (DEPO-MEDROL INJECTION)Admission/Clinic Administered Medications as of 10/14/17:NaCl 0.9% iv infusionProblem List:Hypothyroidism [E03.9]Menorrhagia [N92.0]Abdominal pain, other specified site [R10.9]Altered bowel habits [R19.4]GERD (gastroesophageal reflux disease) [K21.9]Non morbid obesity [E66.9]Allergies:No Known AllergiesDate Verified:10/14/17Lab ValuesLab Value Units Date High LowHEMA* 36.3 % 09/24/2017 46.0 36.0Progress Notes ([facility]):Nava Psr Evita 10/02/2017 1:09 PM SignedNew patient referral received from Dr. Genie Jackson and given to Dr. Jhony castillo.Ashley Russo Psr 10/07/2017 10:54 AM SignedI called and left a message for for Janet to call us back to schedule her newpatient appointment with , lab work prior(CBC/SMEAR). When patient callsback please schedule first open new patient appointment with lab work justprior, notes should read as follows... CBC/SMEAR/WRITING TUTOR/IRON DEF. ANEMIA/REF. CK*Once schedule please note and close encounterAshley Russo PsrProgress Notes ([facility]):Radha Santana Psr 10/02/2017 11:49 AM SignedPlease call patient to schedule. [phone] Psr Evita 10/02/2017 1:03 PM SignedReferral sent to Dr. Booker to review. Normal [facility] Free T4on 05-17-2017 Thyroxine (T4) free 0.78 ng/dL Normal 0.58-1.64 [facility] Comment on above: Result Comment: Geraldine ents receiving more than 5mg/day of biotin may have interference in test results. A sample should be taken no sooner than eight hours after previous dose. Performed By: #### 2 [id number] ####ISABEL [id number] [place] [address] TSHon 05-17-2017 Thyroid stimulating hormone (TSH) 0.41 mIU/m Normal 0.30-5.60 [facility] Comment on above: Performed By: #### 2 [id number] ####ISABEL [id number] [place] [address] U BhCG Qlton 05-17-2017 HCG.beta subunit Qn Negative Normal Neg [facility] Comment on above: Performed By: #### 2 [id number] ####ISABEL Urinalysis Manual [id number] [place] [address] UA Completeon 05-17-2017 UA Blood Negative Normal Negative [facility] Comment on above: Performed By: #### [id number] ####ISABEL Urinalysis Automated [id number] [place] [address] UA Clarity Clear Normal Clear [facility] Comment on above: Performed By: #### [id number] ####ISABEL Urinalysis Automated [id number] [place] [address] UA Leuk Est Negative Normal Negative [facility] Comment on above: Performed By: #### [id number] ####ISABEL Urinalysis Automated [id number] [place] [address] UA Mucous Trace Abnormal Trace [facility] Comment on above: Performed By: #### [id number] ####ISABEL Urinalysis Automated [id number] [place] [address] UA Nitrite Negative Normal Negative [facility] Comment on above: Performed By: #### [id number] ####ISABEL Urinalysis Automated [id number] [place] [address] UA pH 6.0 Normal 4.6-8.0 [facility] Comment on above: Performed By: #### [id number] ####ISABEL Urinalysis Automated [id number] [place] [address] UA Protein Negative Normal Negative [facility] Comment on above: Performed By: #### [id number] ####ISABEL Urinalysis Automated [id number] [place] [address] UA Spec Grav 1.009 Normal 1.003-1.030 [facility] Comment on above: Performed By: #### [id number] ####ISABEL Urinalysis Automated [id number] [place] [address] UA Squam Epithelial 5-10 Abnormal 0-5 [facility] Comment on above: Performed By: #### [id number] ####ISABEL Urinalysis Automated [id number] [place] [address] UA Urobilinogen Negative Normal [facility] Comment on above: Performed By: #### [id number] ####ISABEL Urinalysis Automated [id number] [place] [address] UA WBC 0-5 Normal 0-5 [facility] Comment on above: Performed By: #### [id number] ####ISABEL Urinalysis Automated [id number] [place] [address] Urine, color Straw Normal Yellow [facility] Comment on above: Performed By: #### [id number] ####ISABEL Urinalysis Automated [id number] [place] [address] Urine, erythrocytes 0-3 Normal 0-3 [facility] Comment on above: Performed By: #### [id number] ####ISABEL Urinalysis Automated [id number] [place] [address] Urine, glucose Negative Normal Negative [facility] Comment on above: Performed By: #### [id number] ####ISABEL Urinalysis Automated [id number] [place] [address] Urine, ketones presence Negative Normal Negative [facility] Comment on above: Performed By: #### [id number] ####ISABEL Urinalysis Automated [id number] [place] [address] Urine, urobilinogen Negative Normal Negative [facility] Comment on above: Performed By: #### [id number] ####ISABEL Urinalysis Automated [id number] [place], [place] [id number] XR Abdomen Acute (PA Chest)o n 05-17-2017 XR Abdomen Acute (PA Chest) Exam Date/Time:05/17/2017 18:54 ESTReason for Exam:ConstipationReportABD OMINAL SERIES WITH CHESTADDITIONAL CLINICAL INFORMATION: Constipation for months.COMPARISON: None.FINDINGS: Single view of the chest and 2 views of the abdomen were obtained.Cardiomediastinal silhouette and pulmonary vascularity are within normallimits. The lungs and the costophrenic angles are clear. Fairly extensivevolume of stool is present throughout the colon. There is no dilated small orlarge bowel. No evidence of free intraperitoneal gas.IMPRESSION:1. Unremarkable chest.2. Fairly extensive volume of stool is present throughout the colon. Noevidence of bowel obstruction or significant ileus. FINAL REPORT Dictated: 05/17/2017 7:21 pm Franklin Martinez MDSigned (Electronic Signature): 05/17/2017 7:21 pmSigned by: Franklin Martinez MD Technologist: [facility] Vital Signs Date Time Vital Sign Value Performing Clinician Facility 10-26-2024 11:12-0400 Body mass index (BMI) [Ratio] 44.07 kg/m2 Steffanie Lopez MD Work Phone: [facility] 10-26-2024 11:12-0400 Body weight 115.67 kg Steffanie Lopez MD Work Phone: [facility] 10-26-2024 11:12-0400 Diastolic blood pressure 82 mm[Hg] Steffanie Lopez MD Work Phone: [facility] 10-26-2024 11:12-0400 Systolic blood pressure 124 mm[Hg] Steffanie Lopez MD Work Phone: [facility] 09-29-2024 11:25-0400 Body mass index (BMI) [Ratio] 42.52 kg/m2 Emmanuel Hess MD Work Phone: [facility] 09-29-2024 11:25-0400 Body weight 111.58 kg Emmanuel Hess MD Work Phone: [facility] 09-29-2024 11:25-0400 Diastolic blood pressure 82 mm[Hg] Emmanuel Hess MD Work Phone: [facility] 09-29-2024 11:25-0400 Systolic blood pressure 110 mm[Hg] Emmanuel Hess MD Work Phone: [facility] 08-31-2024 11:48-0400 Body mass index (BMI) [Ratio] 40.27 kg/m2 Bhargavi Navas ANALYSIS REPORTING DEVELOPER.CNM Work Phone: [facility] 08-31-2024 11:48-0400 Body weight 105.69 kg Bhargavi Navas ANALYSIS REPORTING DEVELOPER.CNM Work Phone: [facility] 08-31-2024 11:48-0400 Diastolic blood pressure 70 mm[Hg] Bhargavi Navas ANALYSIS REPORTING DEVELOPER.CNM Work Phone: [facility] 08-31-2024 11:48-0400 Systolic blood pressure 112 mm[Hg] Bhargavi Navas ANALYSIS REPORTING DEVELOPER.CNM Work Phone: [facility] 08-01-2024 08:19-0400 Body mass index (BMI) [Ratio] 38.58 kg/m2 Elayne Austin ANALYSIS REPORTING DEVELOPER.SENIOR ELECTRONICS ENGINEER Work Phone: [facility] 08-01-2024 08:19-0400 Body weight 101.24 kg Elayne Austin ANALYSIS REPORTING DEVELOPER.SENIOR ELECTRONICS ENGINEER Work Phone: [facility] 08-01-2024 08:19-0400 Diastolic blood pressure 70 mm[Hg] Elayne Maycol ANALYSIS REPORTING DEVELOPER.SENIOR ELECTRONICS ENGINEER Work Phone: [facility] 08-01-2024 08:19-0400 Systolic blood pressure 116 mm[Hg] Elayne Austin ANALYSIS REPORTING DEVELOPER.SENIOR ELECTRONICS ENGINEER Work Phone: [facility] 07-20-2024 13:05-0400 Body mass index (BMI) [Ratio] 37.82 kg/m2 Roxaan Plotts ANALYSIS REPORTING DEVELOPER.CNM Work Phone: [facility] 07-20-2024 13:05-0400 Body weight 99.25 kg Roxana Plotts ANALYSIS REPORTING DEVELOPER.CNM Work Phone: [facility] 07-20-2024 13:05-0400 Diastolic blood pressure 64 mm[Hg] Roxana Plotts ANALYSIS REPORTING DEVELOPER.CNM Work Phone: [facility] 07-20-2024 13:05-0400 Systolic blood pressure 112 mm[Hg] Roxana Plotts ANALYSIS REPORTING DEVELOPER.CNM Work Phone: [facility] 05-13-2024 13:29-0500 Body mass index (BMI) [Ratio] 35.6 kg/m2 Terrell Husam ANALYSIS REPORTING DEVELOPER.SENIOR ELECTRONICS ENGINEER Work Phone: [facility] 05-13-2024 13:29-0500 Body temperature 99 [degF] Terrell Husam ANALYSIS REPORTING DEVELOPER.SENIOR ELECTRONICS ENGINEER Work Phone: [facility] 05-13-2024 13:29-0500 Body weight 93.44 kg Terrell Husam ANALYSIS REPORTING DEVELOPER.SENIOR ELECTRONICS ENGINEER Work Phone: [facility] 05-13-2024 13:29-0500 Diastolic blood pressure 78 mm[Hg] Terrell Husam ANALYSIS REPORTING DEVELOPER.SENIOR ELECTRONICS ENGINEER Work Phone: [facility] 05-13-2024 13:29-0500 Heart rate 72 /min Terrell Husam ANALYSIS REPORTING DEVELOPER.SENIOR ELECTRONICS ENGINEER Work Phone: [facility] 05-13-2024 13:29-0500 Respiratory rate 16 /min Terrell Ortizil ANALYSIS REPORTING DEVELOPER.SENIOR ELECTRONICS ENGINEER Work Phone: [facility] 05-13-2024 13:29-0500 SaO2% (BldA) [Mass fraction] 97 % Terrell Cloud ANALYSIS REPORTING DEVELOPER.SENIOR ELECTRONICS ENGINEER Work Phone: [facility] 05-13-2024 13:29-0500 Systolic blood pressure 121 mm[Hg] Terrell Husam ANALYSIS REPORTING DEVELOPER.SENIOR ELECTRONICS ENGINEER Work Phone: [facility] 05-13-2024 09:50-0500 Body mass index (BMI) [Ratio] 36.16 kg/m2 Elayne Maycol ANALYSIS REPORTING DEVELOPER.SENIOR ELECTRONICS ENGINEER Work Phone: [facility] 05-13-2024 09:50-0500 Body weight 94.89 kg Elayne Maycol ANALYSIS REPORTING DEVELOPER.SENIOR ELECTRONICS ENGINEER Work Phone: [facility] 05-13-2024 09:50-0500 Diastolic blood pressure 66 mm[Hg] Elayne Austin ANALYSIS REPORTING DEVELOPER.SENIOR ELECTRONICS ENGINEER Work Phone: [facility] 05-13-2024 09:50-0500 Systolic blood pressure 122 mm[Hg] Elayne Navarrocalf ANALYSIS REPORTING DEVELOPER.SENIOR ELECTRONICS ENGINEER Work Phone: [facility] 04-14-2024 12:00-0500 Body mass index (BMI) [Ratio] 35.21 kg/m2 [facility] ANALYSIS REPORTING DEVELOPER.SENIOR ELECTRONICS ENGINEER Work Phone: [facility] 04-14-2024 12:00-0500 Body temperature 98.01 [degF] [facility] ANALYSIS REPORTING DEVELOPER.SENIOR ELECTRONICS ENGINEER Work Phone: [facility] 04-14-2024 12:00-0500 Body weight 92.4 kg [facility] ANALYSIS REPORTING DEVELOPER.SENIOR ELECTRONICS ENGINEER Work Phone: [facility] 04-14-2024 12:00-0500 Diastolic blood pressure 82 mm[Hg] [facility] ANALYSIS REPORTING DEVELOPER.SENIOR ELECTRONICS ENGINEER Work Phone: [facility] 04-14-2024 12:00-0500 Heart rate 103 /min Kenneth Bruenrrachel ANALYSIS REPORTING DEVELOPER.SENIOR ELECTRONICS ENGINEER Work Phone: [facility] 04-14-2024 12:00-0500 Respiratory rate 20 /min [facility] ANALYSIS REPORTING DEVELOPER.SENIOR ELECTRONICS ENGINEER Work Phone: [facility] 04-14-2024 12:00-0500 SaO2% (BldA) [Mass fraction] 98 % [facility] ANALYSIS REPORTING DEVELOPER.SENIOR ELECTRONICS ENGINEER Work Phone: [facility] 04-14-2024 12:00-0500 Systolic blood pressure 104 mm[Hg] [facility] ANALYSIS REPORTING DEVELOPER.SENIOR ELECTRONICS ENGINEER Work Phone: [facility] 01-22-2024 09:25-0400 Body height 162 cm Ivelisse Ng ANALYSIS REPORTING DEVELOPER.SENIOR ELECTRONICS ENGINEER Work Phone: [facility] 01-22-2024 09:25-0400 Body mass index (BMI) [Ratio] 35.06 kg/m2 Ivelisse Ng ANALYSIS REPORTING DEVELOPER.SENIOR ELECTRONICS ENGINEER Work Phone: [facility] 01-22-2024 09:25-0400 Body weight 92 kg Ivelisse Tannhof ANALYSIS REPORTING DEVELOPER.SENIOR ELECTRONICS ENGINEER Work Phone: [facility] 01-22-2024 09:25-0400 Diastolic blood pressure 77 mm[Hg] Ivelisse Tannhof ANALYSIS REPORTING DEVELOPER.SENIOR ELECTRONICS ENGINEER Work Phone: [facility] 01-22-2024 09:25-0400 Heart rate 58 /min Ivelisse Tannhof ANALYSIS REPORTING DEVELOPER.SENIOR ELECTRONICS ENGINEER Work Phone: [facility] 01-22-2024 09:25-0400 Respiratory rate 16 /min Ivelisse Tannhof ANALYSIS REPORTING DEVELOPER.SENIOR ELECTRONICS ENGINEER Work Phone: [facility] 01-22-2024 09:25-0400 SaO2% (BldA) [Mass fraction] 96 % Ivelisse Tannhof ANALYSIS REPORTING DEVELOPER.SENIOR ELECTRONICS ENGINEER Work Phone: [facility] 01-22-2024 09:25-0400 Systolic blood pressure 110 mm[Hg] Ivelisse Tannhof ANALYSIS REPORTING DEVELOPER.SENIOR ELECTRONICS ENGINEER Work Phone: [facility] 11-10-2023 15:35-0400 Body height 162.6 cm Elyane Maycol ANALYSIS REPORTING DEVELOPER.SENIOR ELECTRONICS ENGINEER Work Phone: [facility] 11-10-2023 15:35-0400 Body mass index (BMI) [Ratio] 37.28 kg/m2 Elayne Austin ANALYSIS REPORTING DEVELOPER.SENIOR ELECTRONICS ENGINEER Work Phone: [facility] 11-10-2023 15:35-0400 Body weight 98.52 kg Elayne Maycol ANALYSIS REPORTING DEVELOPER.SENIOR ELECTRONICS ENGINEER Work Phone: [facility] 11-10-2023 15:35-0400 Diastolic blood pressure 60 mm[Hg] Elayne Maycol ANALYSIS REPORTING DEVELOPER.SENIOR ELECTRONICS ENGINEER Work Phone: [facility] 11-10-2023 15:35-0400 Systolic blood pressure 98 mm[Hg] Elayne Maycol ANALYSIS REPORTING DEVELOPER.SENIOR ELECTRONICS ENGINEER Work Phone: [facility] 10-07-2023 11:32-0400 Body mass index (BMI) [Ratio] 39.01 kg/m2 Bhargavi Monique ANALYSIS REPORTING DEVELOPER.SENIOR ELECTRONICS ENGINEER Work Phone: [facility] 10-07-2023 11:32-0400 Body temperature 98.6 [degF] Bhargavi Monique ANALYSIS REPORTING DEVELOPER.SENIOR ELECTRONICS ENGINEER Work Phone: [facility] 10-07-2023 11:32-0400 Body weight 99.9 kg Bhargavi Monique ANALYSIS REPORTING DEVELOPER.SENIOR ELECTRONICS ENGINEER Work Phone: [facility] 10-07-2023 11:32-0400 Diastolic blood pressure 80 mm[Hg] Bhargavi Monique ANALYSIS REPORTING DEVELOPER.SENIOR ELECTRONICS ENGINEER Work Phone: [facility] 10-07-2023 11:32-0400 Heart rate 90 /min Bhargvai Monique ANALYSIS REPORTING DEVELOPER.SENIOR ELECTRONICS ENGINEER Work Phone: [facility] 10-07-2023 11:32-0400 Respiratory rate 16 /min Bhargavi Monique ANALYSIS REPORTING DEVELOPER.SENIOR ELECTRONICS ENGINEER Work Phone: [facility] 10-07-2023 11:32-0400 SaO2% (BldA) [Mass fraction] 99 % Bhargavi Monique ANALYSIS REPORTING DEVELOPER.SENIOR ELECTRONICS ENGINEER Work Phone: [facility] 10-07-2023 11:32-0400 Systolic blood pressure 122 mm[Hg] Bhargavi Monique ANALYSIS REPORTING DEVELOPER.SENIOR ELECTRONICS ENGINEER Work Phone: [facility] 07-06-2023 01:24-0500 Blood Pressure Location TERRELL AHMADI MD [facility] 07-06-2023 01:24-0500 Body height 160 cm TERRELL AHMADI MD [facility] 07-06-2023 01:24-0500 Body temperature 96.98 [degF] TERRELL AHMADI MD [facility] 07-06-2023 01:24-0500 Body weight 90.9 kg TERRELL AHMADI MD [facility] 07-06-2023 01:24-0500 Diastolic Blood Pressure Non-Invasive 86 mm[Hg] TERRELL AHMADI MD [facility] 07-06-2023 01:24-0500 Heart rate 88 /min TERRELL AHMADI MD [facility] 07-06-2023 01:24-0500 Respiratory rate 18 /min TERRELL AHMADI MD [facility] 07-06-2023 01:24-0500 Systolic Blood Pressure Non-Invasive 118 mm[Hg] TERRELL AHMADI MD [facility] 07-02-2023 11:11-0500 Diastolic blood pressure 80 mm[Hg] [facility] 07-02-2023 11:11-0500 Heart rate 96 /min [facility] 07-02-2023 11:11-0500 Respiratory rate 18 /min [facility] 07-02-2023 11:11-0500 SaO2% (BldA) [Mass fraction] 98 % [facility] 07-02-2023 11:11-0500 Systolic blood pressure 124 mm[Hg] [facility] 07-02-2023 08:44-0500 Body height 160.02 cm [facility] 07-02-2023 08:44-0500 Body mass index (BMI) [Ratio] 38.4 kg/m2 [facility] 07-02-2023 08:44-0500 Body temperature 98.3 [degF] [facility] 07-02-2023 08:44-0500 Body weight 98.4 kg [facility] 07-02-2023 08:24-0500 Body temperature 97.81 [degF] Bhargavi Monique ANALYSIS REPORTING DEVELOPER.SENIOR ELECTRONICS ENGINEER Work Phone: [facility] 07-02-2023 08:24-0500 Body weight 97.98 kg Bhargavi Monique ANALYSIS REPORTING DEVELOPER.SENIOR ELECTRONICS ENGINEER Work Phone: [facility] 07-02-2023 08:24-0500 Diastolic blood pressure 70 mm[Hg] Bhargavi Monique ANALYSIS REPORTING DEVELOPER.SENIOR ELECTRONICS ENGINEER Work Phone: [facility] 07-02-2023 08:24-0500 Heart rate 74 /min Bhargavi Monique ANALYSIS REPORTING DEVELOPER.SENIOR ELECTRONICS ENGINEER Work Phone: [facility] 07-02-2023 08:24-0500 Respiratory rate 18 /min Bhargavi Monique ANALYSIS REPORTING DEVELOPER.SENIOR ELECTRONICS ENGINEER Work Phone: [facility] 07-02-2023 08:24-0500 SaO2% (BldA) [Mass fraction] 99 % Bhargavi Monique ANALYSIS REPORTING DEVELOPER.SENIOR ELECTRONICS ENGINEER Work Phone: [facility] 07-02-2023 08:24-0500 Systolic blood pressure 105 mm[Hg] Bhargavi Monique ANALYSIS REPORTING DEVELOPER.SENIOR ELECTRONICS ENGINEER Work Phone: [facility] 09-30-2022 12:20-0400 Body temperature 99.19 [degF] Ruth Athy PA-C Work Phone: [facility] 09-30-2022 12:20-0400 Body weight 103.33 kg Ruth Athy PA-C Work Phone: [facility] 09-30-2022 12:20-0400 Diastolic blood pressure 72 mm[Hg] Ruth Athy PA-C Work Phone: [facility] 09-30-2022 12:20-0400 Heart rate 107 /min Ruth Athy PA-C Work Phone: [facility] 09-30-2022 12:20-0400 Respiratory rate 16 /min Ruth Athy PA-C Work Phone: [facility] 09-30-2022 12:20-0400 SaO2% (BldA) [Mass fraction] 96 % Ruth Athy PA-C Work Phone: [facility] 09-30-2022 12:20-0400 Systolic blood pressure 104 mm[Hg] Ruth Athy PA-C Work Phone: [facility] 09-06-2022 15:49-0400 Body temperature 97.9 [degF] [facility] 09-06-2022 15:49-0400 Diastolic blood pressure 78 mm[Hg] [facility] 09-06-2022 15:49-0400 Heart rate 78 /min [facility] 09-06-2022 15:49-0400 Respiratory rate 16 /min [facility] 09-06-2022 15:49-0400 SaO2% (BldA) [Mass fraction] 99 % [facility] 09-06-2022 15:49-0400 Systolic blood pressure 134 mm[Hg] [facility] 09-06-2022 13:56-0400 Body height 160.02 cm [facility] 09-06-2022 13:56-0400 Body mass index (BMI) [Ratio] 40.7 kg/m2 [facility] 09-06-2022 13:56-0400 Body weight 104.28 kg [facility] 08-26-2022 13:05-0400 Body temperature 98.2 [degF] Terrell Cloud ANALYSIS REPORTING DEVELOPER.SENIOR ELECTRONICS ENGINEER Work Phone: [facility] 08-26-2022 13:05-0400 Body weight 105.23 kg Terrell Husam ANALYSIS REPORTING DEVELOPER.SENIOR ELECTRONICS ENGINEER Work Phone: [facility] 08-26-2022 13:05-0400 Diastolic blood pressure 71 mm[Hg] Terrell Husam ANALYSIS REPORTING DEVELOPER.SENIOR ELECTRONICS ENGINEER Work Phone: [facility] 08-26-2022 13:05-0400 Heart rate 100 /min Terrell Husam ANALYSIS REPORTING DEVELOPER.SENIOR ELECTRONICS ENGINEER Work Phone: [facility] 08-26-2022 13:05-0400 Respiratory rate 16 /min Terrell Husam ANALYSIS REPORTING DEVELOPER.SENIOR ELECTRONICS ENGINEER Work Phone: [facility] 08-26-2022 13:05-0400 SaO2% (BldA) [Mass fraction] 96 % Terrell Cloud ANALYSIS REPORTING DEVELOPER.SENIOR ELECTRONICS ENGINEER Work Phone: [facility] 08-26-2022 13:05-0400 Systolic blood pressure 108 mm[Hg] Terrell Husam ANALYSIS REPORTING DEVELOPER.SENIOR ELECTRONICS ENGINEER Work Phone: [facility] 08-22-2022 19:52-0400 Diastolic blood pressure 67 mm[Hg] Genie Jackson Other Phone: [facility] 08-22-2022 19:52-0400 Heart rate 88 /min Genie Jackson Other Phone: [facility] 08-22-2022 19:52-0400 Respiratory rate 18 /min Genie Jackson Other Phone: [facility] 08-22-2022 19:52-0400 SaO2% (BldA) [Mass fraction] 97 % Genie Jackson Other Phone: [facility] 08-22-2022 19:52-0400 Systolic blood pressure 140 mm[Hg] Genie Jackson Other Phone: [facility] 08-22-2022 16:04-0400 Body height 160 cm Genie Jackson Other Phone: [facility] 08-22-2022 16:04-0400 Body temperature 97.7 [degF] Genie Jackson Other Phone: [facility] 08-22-2022 16:04-0400 Body weight 104 kg Genie Jackson Other Phone: [facility] 06-30-2022 08:53-0500 Body height 160.02 cm [facility] 06-30-2022 08:53-0500 Body mass index (BMI) [Ratio] 42.6 kg/m2 [facility] 06-30-2022 08:53-0500 Body temperature 97.8 [degF] [facility] 06-30-2022 08:53-0500 Body weight 109.13 kg [facility] 06-30-2022 08:53-0500 Diastolic blood pressure 84 mm[Hg] [facility] 06-30-2022 08:53-0500 Heart rate 94 /min [facility] 06-30-2022 08:53-0500 Respiratory rate 18 /min [facility] 06-30-2022 08:53-0500 SaO2% (BldA) [Mass fraction] 97 % [facility] 06-30-2022 08:53-0500 Systolic blood pressure 136 mm[Hg] [facility] 03-02-2022 22:09-0400 Heart rate 113 /min [facility] 03-02-2022 22:09-0400 Respiratory rate 15 /min [facility] 03-02-2022 22:09-0400 SaO2% (BldA) [Mass fraction] 97 % [facility] 03-02-2022 21:14-0400 Body height 160.02 cm [facility] Work Phone: 03-02-2022 21:14-0400 Body mass index (BMI) [Ratio] 40.7 kg/m2 [facility] 03-02-2022 21:14-0400 Body temperature 97.3 [degF] [facility] 03-02-2022 21:14-0400 Body weight 104.32 kg [facility] 03-02-2022 21:14-0400 Diastolic blood pressure 104 mm[Hg] [facility] 03-02-2022 21:14-0400 Systolic blood pressure 134 mm[Hg] [facility] 02-12-2022 14:11-0400 Body temperature 98.91 [degF] Michelle Podlogar ANALYSIS REPORTING DEVELOPER.SENIOR ELECTRONICS ENGINEER Work Phone: [facility] 02-12-2022 14:11-0400 Body weight 106.96 kg Michelle Podlogar ANALYSIS REPORTING DEVELOPER.SENIOR ELECTRONICS ENGINEER Work Phone: [facility] 02-12-2022 14:11-0400 Diastolic blood pressure 86 mm[Hg] Michelle Podlogar ANALYSIS REPORTING DEVELOPER.SENIOR ELECTRONICS ENGINEER Work Phone: [facility] 02-12-2022 14:11-0400 Heart rate 106 /min Michelle Podlogar ANALYSIS REPORTING DEVELOPER.SENIOR ELECTRONICS ENGINEER Work Phone: [facility] 02-12-2022 14:11-0400 Respiratory rate 18 /min Michelle Podlogar ANALYSIS REPORTING DEVELOPER.SENIOR ELECTRONICS ENGINEER Work Phone: [facility] 02-12-2022 14:11-0400 SaO2% (BldA) [Mass fraction] 98 % Michelle Lagoslogmadeline ANALYSIS REPORTING DEVELOPER.SENIOR ELECTRONICS ENGINEER Work Phone: [facility] 02-12-2022 14:11-0400 Systolic blood pressure 122 mm[Hg] Michelle Lagoslogmadeline ANALYSIS REPORTING DEVELOPER.SENIOR ELECTRONICS ENGINEER Work Phone: [facility] 02-05-2022 12:12-0400 Body temperature 98.71 [degF] Ruth Athy PA-C Work Phone: [facility] 02-05-2022 12:12-0400 Body weight 108.77 kg Ruth Athy PA-C Work Phone: [facility] 02-05-2022 12:12-0400 Diastolic blood pressure 64 mm[Hg] Ruth Athy PA-C Work Phone: [facility] 02-05-2022 12:12-0400 Heart rate 126 /min Ruth Athy PA-C Work Phone: [facility] 02-05-2022 12:12-0400 Respiratory rate 18 /min Ruth Athy PA-C Work Phone: [facility] 02-05-2022 12:12-0400 SaO2% (BldA) [Mass fraction] 97 % Ruth Athy PA-C Work Phone: [facility] 02-05-2022 12:12-0400 Systolic blood pressure 104 mm[Hg] Ruth Athy PA-C Work Phone: [facility] 02-02-2022 10:04-0400 Body temperature 98.71 [degF] Ruth Athy PA-C Work Phone: [facility] 02-02-2022 10:04-0400 Body weight 108.68 kg Ruth Athy PA-C Work Phone: [facility] 02-02-2022 10:04-0400 Diastolic blood pressure 76 mm[Hg] Ruth Athy PA-C Work Phone: [facility] 02-02-2022 10:04-0400 Heart rate 99 /min Ruth Athy PA-C Work Phone: [facility] 02-02-2022 10:04-0400 Respiratory rate 20 /min Ruth Athy PA-C Work Phone: [facility] 02-02-2022 10:04-0400 SaO2% (BldA) [Mass fraction] 98 % Ruth Athy PA-C Work Phone: [facility] 02-02-2022 10:04-0400 Systolic blood pressure 126 mm[Hg] Ruth Athy PA-C Work Phone: [facility] 12-24-2021 14:16-0400 Body temperature 97.81 [degF] Ruth Athy PA-C Work Phone: [facility] 12-24-2021 14:16-0400 Body weight 107.59 kg Ruth Athy PA-C Work Phone: [facility] 12-24-2021 14:16-0400 Diastolic blood pressure 70 mm[Hg] Ruth Athy PA-C Work Phone: [facility] 12-24-2021 14:16-0400 Heart rate 107 /min Ruth Athy PA-C Work Phone: [facility] 12-24-2021 14:16-0400 Respiratory rate 18 /min Ruth Athy PA-C Work Phone: [facility] 12-24-2021 14:16-0400 SaO2% (BldA) [Mass fraction] 97 % Ruth Athy PA-C Work Phone: [facility] 12-24-2021 14:16-0400 Systolic blood pressure 114 mm[Hg] Ruth Athy PA-C Work Phone: [facility] 09-17-2021 13:46-0400 Body temperature 99.3 [degF] Terrell Cloud ANALYSIS REPORTING DEVELOPER.SENIOR ELECTRONICS ENGINEER Work Phone: [facility] 09-17-2021 13:46-0400 Body weight 107.05 kg Terrell Husam ANALYSIS REPORTING DEVELOPER.SENIOR ELECTRONICS ENGINEER Work Phone: [facility] 09-17-2021 13:46-0400 Diastolic blood pressure 80 mm[Hg] Terrell Ortizil ANALYSIS REPORTING DEVELOPER.SENIOR ELECTRONICS ENGINEER Work Phone: [facility] 09-17-2021 13:46-0400 Heart rate 88 /min Terrell Husam ANALYSIS REPORTING DEVELOPER.SENIOR ELECTRONICS ENGINEER Work Phone: [facility] 09-17-2021 13:46-0400 Respiratory rate 16 /min Terrell Husam ANALYSIS REPORTING DEVELOPER.SENIOR ELECTRONICS ENGINEER Work Phone: [facility] 09-17-2021 13:46-0400 Systolic blood pressure 112 mm[Hg] Terrell Husam ANALYSIS REPORTING DEVELOPER.SENIOR ELECTRONICS ENGINEER Work Phone: [facility] Encounters Encounter Date Encounter Type Care Provider Facility Start: 11-16-2024 End: 11-16-2024 Telephone encounter Joyce Doll MD Work Phone: OB/Gynecology Start: 10-27-2024 End: 10-27-2024 Telephone encounter Steffanie Neely RN [facility]aternal [facility] Comment on above: 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[employer]) Start: 10-26-2024 End: 10-26-2024 Office outpatient visit 15 minutes Steffanie Lopez MD Work Phone: OB/Gynecology Comment on above: Supervision of other high risk pregnancies, second trimester (HCC) (Primary Dx); Obesity in (HCC); Hypothyroidism, unspecified type; Hx of preeclampsia, prior , currently (HCC); 20 weeks gestation of (HCC) Start: 10-26-2024 End: 10-26-2024 Patient encounter procedure Whi Tech 1 Cabbage [facility]ter [facility] Maternal Medicine Comment on above: Obesity in (HCC) (Primary Dx); 8 weeks gestation of (HCC) Start: 10-26-2024 End: 10-26-2024 ambulatory [facility] Facility:[facility] Start: 10-25-2024 End: 10-25-2024 ambulatory [facility] Facility:[facility] Start: 10-05-2024 End: 10-05-2024 Patient encounter procedure Whi Tech 4 Cabbage Salter [facility]aternal [facility] Comment on above: Encounter for antena heidy screening for malformation (HCC) (Primary Dx); Supervision of other high risk pregnancies, second trimester (HCC); Hx of preeclampsia, prior , currently (HCC); Obesity in (HCC); Hypothyroidism, unspecified type Start: 10-05-2024 End: 10-05-2024 ambulatory EMMANUEL HESS Facility:[facility] Start: 09-29-2024 End: 09-29-2024 Patient encounter procedure Emmanuel Hess MD Work Phone: OB/Gynecology Comment on above: Supervision of other high risk pregnancies, second trimester (HCC) (Primary Dx); Hx of preeclampsia, prior , currently (HCC); Obesity in (HCC); Hypothyroidism, unspecified type; 16 weeks gestation of (HCC); Trichomoniasis; Screen for STD (sexually transmitted disease) Start: 09-29-2024 End: 09-29-2024 ambulatory EMMANUEL HESS Facility:[facility] Start: 09-23-2024 End: 09-23-2024 ambulatory GENIE JACKSON Facility:[facility] Start: 09-08-2024 End: 09-08-2024 [facility] Genie Jackson MD Work Phone: [facility] [place] Comment on above: RUDOLPH (generalized anx iety disorder); Panic attack Start: 09-07-2024 End: 09-08-2024 Refill Genie Jackson MD Work Phone: [facility] [place] Comment on above: Refill Request Start: 08-31-2024 End: 08-31-2024 Patient encounter procedure Whi Tech 1 [facility] Maternal Medicine Comment on above: Encounter for antena heidy screening for malformation using ultrasound (HCC) (Primary Dx); 12 weeks gestation of (HCC); Encounter for (NT) nuchal translucency scan (HCC) Supervision of other high risk pregnancies, second trimester (HCC) (Primary Dx); 12 weeks gestation of (HCC); Obesity in (HCC); Rubella non-immune status, antepartum (HCC); Hx of preeclampsia, prior , currently (HCC); History of hemorrhage; Hypothyroidism, unspecified type; Engages in nicotine containing substance vaping; Anxiety and depression; Trichomoniasis Start: 08-31-2024 End: 08-31-2024 [facility] Facility:[facility] Start: 08-29-2024 End: 08-29-2024 [facility] Facility: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 Start: 08-01-2024 End: 08-01-2024 Patient encounter procedure Elayne Severino APRN.CNP Work Phone: OB/Gynecology Comment on above: Encounter for superv ision of normal intrauterine in multigravida, antepartum (Primary Dx); with uncertain dates, antepartum; History of hemorrhage; Screen for STD (sexually transmitted disease); 8 weeks gestation of ; Hx of preeclampsia, prior , currently ; Hypothyroidism, unspecified type; BMI 38.0-38.9,adult Start: 07-25-2024 End: 08-02-2024 Telephone encounter Elayne Severino APRN.CNP Work Phone: OB/Gynecology Comment on above: Future Appointment Start: 07-22-2024 End: 07-22-2024 Telephone encounter Genie Jackson MD Work Phone: [facility] [place] Comment on above: Medication Problem Start: 07-20-2024 End: 07-20-2024 ambulatory [facility] Facility:[facility] Start: 07-20-2024 End: 07-20-2024 Patient encounter procedure Roxana Yaanton PORTER Work Phone: OB/Gynecology Comment on above: Missed menses (Prima ry Dx); Nausea and vomiting during ; 6 weeks gestation of Start: 06-20-2024 End: 06-20-2024 Telephone encounter Ivelisse Ng APRN.SENIOR ELECTRONICS ENGINEER Work Phone: Family [facility] [place] Comment on above: patient medication q uestion Start: 06-15-2024 End: 06-15-2024 ambulatory Ivelisse Ng APRN.CIERRA Work Phone: [facility] [place] Comment on above: Anxiety with depress ion (Primary Dx) Start: 06-15-2024 End: 06-15-2024 Telemedicine consultation with patient Ivelisse Ng APRN.CIERRA Work Phone: Family [facility] [place] Start: 05-13-2024 End: 05-13-2024 Office outpatient visit 25 minutes Terrell Cloud ANALYSIS REPORTING DEVELOPER.SENIOR ELECTRONICS ENGINEER Work Phone: [facility] [place] Comment on above: Tension headache (Pr imary Dx) Start: 05-13-2024 End: 05-13-2024 ambulatory [facility] Facility:[facility] Start: 05-13-2024 End: 05-13-2024 Patient encounter procedure Elayne Severino ANALYSIS REPORTING DEVELOPER.SENIOR ELECTRONICS ENGINEER Work Phone: OB/Gynecology Comment on above: Encounter for precon ception consultation (Primary Dx) Start: 04-14-2024 End: 04-14-2024 ambulatory [facility] Facility:[facility] Start: 04-14-2024 End: 04-14-2024 Office outpatient visit 15 minutes Kenneth Mckeon ANALYSIS REPORTING DEVELOPER.SENIOR ELECTRONICS ENGINEER Work Phone: [facility] Comment on above: Sore throat (Primary Dx); Viral illness Start: 03-22-2024 End: 03-22-2024 Refill Genie Jackson MD Work Phone: [facility] [place] Comment on above: Refill Request Start: 02-19-2024 End: 02-19-2024 Refill Ivelisse Ng APRN.SENIOR ELECTRONICS ENGINEER Work Phone: Family [facility] [place] Comment on above: Refill Request Start: 01-22-2024 End: 01-22-2024 Patient encounter procedure Ivelisse Ng APRN.SENIOR ELECTRONICS ENGINEER Work Phone: [facility] [place] Comment on above: Wellness examination (Primary Dx); Anxiety with depression; Chronic constipation; Hypothyroidism, unspecified type; Gastroesophageal reflux disease, unspecified whether esophagitis present; Encounter for contraceptive management, unspecified type; Screening for depression; Encounter for screening examination for other mental health and behavioral disorders Start: 01-22-2024 End: 01-22-2024 ambulatory IVELISSE NG Facility:[facility] Start: 01-22-2024 Encounter for genera l adult medical examination without abnormal findings IVELISSE NG [facility] Start: 01-20-2024 End: 01-20-2024 Refill Ivelisse Ng APRN.SENIOR ELECTRONICS ENGINEER Work Phone: [facility] [place] Comment on above: Refill Request Start: 01-18-2024 End: 01-21-2024 Refill Ivelisse Ng APRN.SENIOR ELECTRONICS ENGINEER Work Phone: [facility] [place] Comment on above: Refill Request Start: 01-14-2024 End: 01-15-2024 Telephone encounter Elaynecarissa NavarroMaycolbonnie FARRELL.SENIOR ELECTRONICS ENGINEER Work Phone: OB/Gynecology Comment on above: Appointment Start: 12-19-2023 End: 12-21-2023 Refill Ivelisse Ng APRN.SENIOR ELECTRONICS ENGINEER Work Phone: [facility] [place] Comment on above: Refill Request Start: 12-17-2023 Refill Ivelisse Ng APRN.SENIOR ELECTRONICS ENGINEER Work Phone: [facility] [place] Comment on above: Refill Request Start: 11-24-2023 End: 11-24-2023 Telemedicine consultation with patient Elayne Suesteban FARRELL.SENIOR ELECTRONICS ENGINEER Work Phone: OB/Gynecology Start: 11-24-2023 End: 11-24-2023 ambulatory Elayne Navarrocalf ANALYSIS REPORTING DEVELOPER.SENIOR ELECTRONICS ENGINEER Work Phone: OB/Gynecology Comment on above: Adenomyosis (Primary Dx) Start: 11-20-2023 Telephone encounter Elayne Shirley bryant ANALYSIS REPORTING DEVELOPER.SENIOR ELECTRONICS ENGINEER Work Phone: OB/Gynecology Comment on above: Results (Pelvic US) Start: 11-19-2023 End: 11-19-2023 ambulatory ROHAN YOON OB/Gynecology Start: 11-19-2023 End: 11-19-2023 Patient encounter procedure Whi Tech 1 [facility] OB/Gynecology Start: 11-15-2023 Refill Terrell Cloud ANALYSIS REPORTING DEVELOPER.SENIOR ELECTRONICS ENGINEER Work Phone: [facility] [place] Comment on above: Refill Request Start: 11-12-2023 Refill Genie hernandez MD Work Phone: Family [facility] [place] Comment on above: Refill Request lab results Start: 11-10-2023 End: 11-10-2023 ambulatory ELAYNE SEVERINO Facility:[facility] Start: 11-10-2023 End: 11-10-2023 Patient encounter procedure Elayne Severino ANALYSIS REPORTING DEVELOPER.SENIOR ELECTRONICS ENGINEER Work Phone: OB/Gynecology Comment on above: Encounter for gyneco logical examination (general) (routine) without abnormal findings (Primary Dx); Screening for cervical cancer; Encounter for screening for human papillomavirus (HPV) Start: 11-10-2023 End: 11-10-2023 Patient encounter status Elayne Severino ANALYSIS REPORTING DEVELOPER.SENIOR ELECTRONICS ENGINEER Work Phone: [facility] Start: 11-10-2023 End: 11-10-2023 ambulatory ROHAN YOON Facility:[facility] Start: 11-04-2023 End: 11-04-2023 ambulatory Rohan Yoon MD Work Phone: Gynecology Comment on above: Irregular menses (Pr imary Dx); Acquired hypothyroidism; Class II obesity; Menorrhagia with irregular cycle; Dysmenorrhea Start: 11-04-2023 End: 11-04-2023 Telemedicine consultation with patient Rohan Yoon MD Work Phone: Gynecology Start: 10-07-2023 End: 10-07-2023 Patient encounter procedure Bhargavi Monique ANALYSIS REPORTING DEVELOPER.SENIOR ELECTRONICS ENGINEER Work Phone: [facility] Comment on above: Nipple pain (Primary Dx); Ear pain, bilateral Start: 07-23-2023 Refill Terrell Husam ANALYSIS REPORTING DEVELOPER.SENIOR ELECTRONICS ENGINEER Work Phone: [facility] [place] Comment on above: Refill Request Start: 07-23-2023 Refill Terrell Husam ANALYSIS REPORTING DEVELOPER.SENIOR ELECTRONICS ENGINEER Work Phone: [facility] [place] Comment on above: Refill Request Start: 07-06-2023 End: 07-06-2023 Emergency department patient visit TERRELL AHMADI MD Facility: Start: 07-06-2023 End: 07-06-2023 Emergency department patient visit TERRELL AHMADI MD [facility] Start: 07-02-2023 End: 07-02-2023 Emergency department patient visit [facility] Facility:[facility] Start: 07-02-2023 End: 07-02-2023 Emergency department patient visit [facility] Work Phone: Start: 07-02-2023 End: 07-02-2023 Patient encounter procedure Bhargavi Monique ANALYSIS REPORTING DEVELOPER.SENIOR ELECTRONICS ENGINEER Work Phone: [facility] Comment on above: Visual disturbance ( Primary Dx); Dizziness; Headache, unspecified headache type Start: 06-18-2023 Telephone encounter Ivelisse stevens ANALYSIS REPORTING DEVELOPER.SENIOR ELECTRONICS ENGINEER Work Phone: [facility] [place] Comment on above: Results (Labs ) Start: 06-17-2023 Telephone encounter Genie greer MD Work Phone: [facility] [place] Comment on above: Orders; Irregular Me nstrual Cycle Start: 06-16-2023 Telephone encounter Genie greer MD Work Phone: [facility] [place] Comment on above: Patient Request Start: 06-12-2023 Telephone encounter Genie greer MD Work Phone: [facility] [place] Comment on above: Patient Question Start: 04-02-2023 Refill Terrell Cloud APRN.SENIOR ELECTRONICS ENGINEER Work Phone: [facility] [place] Comment on above: Refill Request Start: 03-26-2023 Refill Genie hernandez MD Work Phone: [facility] [place] Comment on above: Refill Request Start: 01-03-2023 Refill Terrell Cloud APRN.SENIOR ELECTRONICS ENGINEER Work Phone: [facility] [place] Comment on above: Refill Request; Refi ll Request Start: 10-12-2022 End: 10-12-2022 Emergency department patient visit Onofre Everett [facility] Emergency Start: 10-01-2022 Telephone encounter Genie greer MD Work Phone: [facility] [place] Comment on above: Patient Question Start: 09-30-2022 End: 09-30-2022 Patient encounter procedure Ruth Vallejo PA-C Work Phone: [facility] Comment on above: Acute UTI (Primary D x) Start: 09-06-2022 End: 09-06-2022 Emergency department patient visit Genie Jackson Facility:[facility] Start: 09-06-2022 End: 09-06-2022 Emergency department patient visit [facility] Start: 09-06-2022 End: 09-06-2022 Patient encounter procedure Marjorie Reid APRN.SENIOR ELECTRONICS ENGINEER Work Phone: [facility] Comment on above: Confusion (Primary D x) Start: 08-26-2022 End: 08-26-2022 Office outpatient visit 25 minutes Terrell Cloud APRN.SENIOR ELECTRONICS ENGINEER Work Phone: [facility] [place] Comment on above: Hypokalemia (Primary Dx); Nausea and vomiting, unspecified vomiting type; Hospital discharge follow-up; Paresthesia; Hand pain, left Start: 08-22-2022 End: 08-22-2022 Emergency department patient visit Trixie Beard [facility] Emergency 14 Start: 07-29-2022 Refill Jolly Aguilar PA-C Work Phone: Gastroenterology Comment on above: Refill Request Start: 07-23-2022 Refill Terrell Husam ANALYSIS REPORTING DEVELOPER.SENIOR ELECTRONICS ENGINEER Work Phone: [facility] Comment on above: Refill Request Start: 07-23-2022 Refill Terrell Husam ANALYSIS REPORTING DEVELOPER.SENIOR ELECTRONICS ENGINEER Work Phone: [facility] Comment on above: Refill Request Start: 06-30-2022 End: 06-30-2022 [facility] Start: 05-08-2022 Refill Cori Ramesh APR N.SENIOR ELECTRONICS ENGINEER Work Phone: Gastroenterology Comment on above: Refill Request Start: 03-07-2022 End: 03-07-2022 [facility] Genie Jackson MD Work Phone: [facility] Comment on above: Recurrent major depr essive disorder, remission status unspecified (HCC) Start: 03-02-2022 End: 03-02-2022 [facility] Start: 02-15-2022 Refill Cori Ramesh APR N.SENIOR ELECTRONICS ENGINEER Work Phone: Gastroenterology Comment on above: Refill Request Start: 02-12-2022 End: 02-12-2022 Patient encounter procedure Michelle Hayes APRN.SENIOR ELECTRONICS ENGINEER Work Phone: [facility] Comment on above: Frontal sinus pain ( Primary Dx); Left ear pain Start: 02-05-2022 End: 02-05-2022 Patient encounter procedure Ruth JOSE-Christine Work Phone: [facility] Comment on above: Acute otitis media, left (Primary Dx) Start: 02-02-2022 End: 02-02-2022 Patient encounter procedure Ruth Vallejo PA-C Work Phone: [facility] Comment on above: Viral URI with cough (Primary Dx); Bacterial conjunctivitis Start: 12-24-2021 End: 12-24-2021 Subsequent hospital visit by physician Xr [facility] Work Phone: Radiology Comment on above: Left wrist pain [M25 .532] Start: 12-24-2021 End: 12-24-2021 Patient encounter procedure Ruth Vallejo PA-C Work Phone: [facility] Comment on above: Left wrist pain (Merlene azucena Dx) Start: 12-17-2021 Refill Cori Ramesh APR N.SENIOR ELECTRONICS ENGINEER Work Phone: Gastroenterology Comment on above: Refill Request Start: 12-16-2021 Refill Cori Ramesh APR N.SENIOR ELECTRONICS ENGINEER Work Phone: Gastroenterology Comment on above: Refill Request Start: 12-04-2021 Telephone encounter Genie greer MD Work Phone: [facility] Comment on above: Medication Question Start: 11-26-2021 End: 11-26-2021 [facility] Genie Jackson MD Work Phone: [facility] Comment on above: Recurrent major depr essive disorder, remission status unspecified (HCC) (Primary Dx) Refill Request Start: 09-25-2021 End: 09-25-2021 Telemedicine consultation with patient Cori Ramesh ANALYSIS REPORTING DEVELOPER.SENIOR ELECTRONICS ENGINEER [facility] Start: 09-25-2021 End: 09-25-2021 ambulatory Terrell Cloud APRN.SENIOR ELECTRONICS ENGINEER Work Phone: [facility] Comment on above: Question Burping (Primary Dx) ; Gastroesophageal reflux disease, unspecified whether esophagitis present; Early satiety; GERD without esophagitis Start: 09-19-2021 Telephone encounter [facility] Comment on above: Referral Request Start: 09-17-2021 End: 09-17-2021 Patient encounter procedure Terrell Cloud APRN.SENIOR ELECTRONICS ENGINEER Work Phone: [facility] Comment on above: Tonsil stone (Primar y Dx); Hypothyroidism, unspecified type Start: 08-23-2021 ambulatory Genie hernandez MD Work Phone: [facility] [place] Comment on above: Trying a medication again Start: 08-09-2021 Refill Genie hernandez MD Work Phone: [facility] [place] Comment on above: Refill Request Start: 10-14-2017 End: 10-14-2017 Ambulatory [facility] Start: 05-17-2017 End: 05-17-2017 Emergency department patient visit Sudhir Rodriguez Facility:[facility] Start: 07-23-2016 End: 10-12-2017 Physical examination Bhargavi Monique ANALYSIS REPORTING DEVELOPER.SENIOR ELECTRONICS ENGINEER Work Phone: [facility] Procedures Date Procedure Procedure Detail Performing Clinician Start: 10-26-2024 Us preg uterus after 1st trimest 1/1st gestation Elayne Maycol ANALYSIS REPORTING DEVELOPER.SENIOR ELECTRONICS ENGINEER Work Phone: Start: 10-05-2024 Us preg uterus after 1st trimest 1/1st gestation Emmanuel Hess MD Work Phone: Start: 08-31-2024 Us preg uterus after 1st trimest 1/1st gestation Elayne Maycol ANALYSIS REPORTING DEVELOPER.SENIOR ELECTRONICS ENGINEER Work Phone: Start: 08-29-2024 Antibody screen IVELISSE NG Comment on above: Order Comment: Speci men Type: BLOOD SPECIMEN Ordering Facility: [facility] Address: [address] [place] [address] Performed By: #### [id number] #### [facility] CLIA [id number] [address] [place] [address] [place] Start: 08-01-2024 Us uterus l imited 1/> fetuses Elayne Austin ANALYSIS REPORTING DEVELOPER.SENIOR ELECTRONICS ENGINEER Work Phone: Start: 07-20-2024 UA DIP,URINE HCG (POC) Roxana Fry ANALYSIS REPORTING DEVELOPER.CNM Work Phone: Start: 04-14-2024 STREP A MOLECULAR (POC) Bhargavi Monique ANALYSIS REPORTING DEVELOPER.SENIOR ELECTRONICS ENGINEER Work Phone: Start: 01-22-2024 Adult depression scr eening assessment Ivelisse Laneesteban ANALYSIS REPORTING DEVELOPER.SENIOR ELECTRONICS ENGINEER Work Phone: Start: 11-19-2023 Us pelvic nonobstetr ic real-time image complete Rohan Yoon MD Work Phone: Start: 07-02-2023 SARS-CoV-2, Influenz a & RSV (PCR) Start: 07-02-2023 CT of head without contrast Start: 09-30-2022 Urnls dip stick/tabl et rgnt auto w/o microscopy Ruth Vallejo PA-C Work Phone: Start: 09-06-2022 Plain chest X-ray Start: 06-30-2022 Computed tomography of abdomen and pelvis with intravenous contrast Start: 12-24-2021 Radex wrist complete minimum 3 views Ruth Vallejo PA-C Work Phone: Start: 04-05-2021 Adult depression scr eening assessment Genie Jackson MD Work Phone: Plan of Treatment Date Care Activity Detail Author Start: 11-09-2026 Screening for malignant neoplasm of cervix Cervical Cancer Screening [facility] Start: 09-08-2025 Annual PCP Team Chronic Disease Visit Annual PCP Team Chronic Disease Visit [facility] Start: 08-04-2025 Annual PCP Team Chronic Disease Visit Annual PCP Team Chronic Disease Visit [facility] Start: 06-15-2025 Annual PCP Team Chronic Disease Visit Annual PCP Team Chronic Disease Visit [facility] Start: 05-13-2025 Annual PCP Team Chronic Disease Visit Annual PCP Team Chronic Disease Visit [facility] Start: 01-21-2025 Annual PCP Team Chronic Disease Visit Annual PCP Team Chronic Disease Visit [facility] Start: 01-21-2025 Anxiety Screening Anxiety Screening [facility] Start: 01-21-2025 Depression Screening Depression Scre ening [facility] Start: 01-14-2025 RSV Vaccine (1 - Ris k 1-dose series) RSV Vaccine (1 - Risk 1-dose series) [facility] Start: 01-02-2025 Influenza vaccination [facility] Start: 12-28-2024 End: 12-28-2024 Patient encounter procedure Maternal Medicine Comment on above: 28 weeks US US/OB Start: 12-26-2024 End: 12-26-2024 Patient encounter procedure 12/26/2024 10:00 AM EDT Office Visit Endocrinology [address] [place] [address] Mana Oseguera MD [address] [place] [address] Supervision of other high risk pregnancies, second trimester (HCC) [O09.892] Endocrinology Comment on above: Supervision of other high risk pregnancies, second trimester (HCC) [O09.892] Start: 11-23-2024 End: 11-23-2024 Patient encounter procedure 11/23/2024 10:40 AM EDT Routine Office Visit OB/Gynecology [address] [place] [address] Joyce Frost MD [address] [place] [id number] OB-Needs to schedule 28 week ultrasound OB/Gynecology Comment on above: OB-Needs to schedule 28 week ultrasound Start: 11-22-2024 End: 11-22-2024 Patient encounter procedure 11/22/2024 8:00 AM EDT Office Visit Endocrinology [address] [place] [address] Mana Oseguera MD [address] [place] [address] Supervision of other high risk pregnancies, second trimester (HCC) [O09.892] Endocrinology Comment on above: Supervision of other high risk pregnancies, second trimester (HCC) [O09.892] Start: 10-26-2024 End: 10-26-2024 Patient encounter procedure Maternal Medicine Comment on above: Anatomy Scan OB Routine Start: 10-05-2024 End: 10-05-2024 Patient encounter procedure 10/05/2024 11:00 AM EDT Routine Office Visit Maternal Medicine [facility] [address] [place] [address] growth Maternal Medicine [facility] Comment on above: growth Start: 09-29-2024 End: 09-29-2024 Patient encounter procedure 09/29/2024 11:10 AM EDT Routine Office Visit OB/Gynecology [address] [place] [address] Emmanuel Hess MD [address] [place] [address] OB Routine OB/Gynecology Comment on above: OB Routine Start: 08-31-2024 End: 08-31-2024 Patient encounter procedure Maternal Medicine Comment on above: Nuchal OB Start: 08-08-2024 End: 08-08-2024 ambulatory 08/08/2024 1:00 PM EDT Results Only [facility] [address] [place] [address] [facility] Start: 08-04-2024 End: 08-04-2024 ambulatory 08/04/2024 11:20 AM EDT [facility] [address] [place] [address] Genie Jackson MD [address] [place] [address] Lowering my buspar [facility] [place] Comment on above: Lowering my buspar Start: 08-03-2024 End: 08-03-2024 ambulatory 08/03/2024 1:00 PM EDT Results Only [facility] [address] [place] [address] [facility] Start: 08-01-2024 End: 10-31-2024 ANEMIA REFLEX PANEL ANEMIA REFLEX PANEL Lab Routine History of hemorrhage 8 weeks gestation of Expected: 08/01/2024, Expires: 10/31/2024 [facility] Work Phone: Comment on above: Expected: 08/01/2024 , Expires: 10/31/2024 Start: 08-01-2024 End: 10-31-2024 Comprehensive metabolic 2000 panel - Serum or Plasma COMPREHENSIVE METABOLIC PANEL Lab Routine 8 weeks gestation of Hx of preeclampsia, prior , currently Expected: 08/01/2024, Expires: 10/31/2024 [facility] Comment on above: Expected: 08/01/2024 , Expires: 10/31/2024 Start: 08-01-2024 End: 10-31-2024 Hemoglobin A1c in Blood HEMOGLOBIN A1C Lab Routine History of hemorrhage 8 weeks gestation of Expected: 08/01/2024, Expires: 10/31/2024 [facility] Comment on above: Expected: 08/01/2024 , Expires: 10/31/2024 Start: 08-01-2024 End: 10-31-2024 Hepatitis B virus surface Ag [Presence] in Serum HEPATITIS B SURFACE ANTIGEN Lab Routine History of hemorrhage Screen for STD (sexually transmitted disease) 8 weeks gestation of Expected: 08/01/2024, Expires: 10/31/2024 [facility] Comment on above: Expected: 08/01/2024 , Expires: 10/31/2024 Start: 08-01-2024 End: 10-31-2024 Hepatitis C virus Ab [Presence] in Serum HEPATITIS C ANTIBODY IA WITH CONFIRMATION Lab Routine History of hemorrhage Screen for STD (sexually transmitted disease) 8 weeks gestation of Expected: 08/01/2024, Expires: 10/31/2024 [facility] Comment on above: Expected: 08/01/2024 , Expires: 10/31/2024 Start: 08-01-2024 End: 10-31-2024 HIV 1+2 Ab [Presence] in Serum or Plasma by Immunoassay HIV 1/2 COMBO WITH REFLEX TO DIFFERENTIATION Lab Routine History of hemorrhage Screen for STD (sexually transmitted disease) 8 weeks gestation of Expected: 08/01/2024, Expires: 10/31/2024 [facility] Comment on above: Expected: 08/01/2024 , Expires: 10/31/2024 Start: 08-01-2024 End: 08-01-2025 OBSTETRIC ULTRASOUND WHI OBSTETRIC ULTRASOUND [facility] Anc Imaging Routine 8 weeks gestation of Expected: 08/01/2024, Expires: 08/01/2025 [facility] Comment on above: Expected: 08/01/2024 , Expires: 08/01/2025 Start: 08-01-2024 End: 10-31-2024 Protein/Creatinine [Mass Ratio] in Urine PROTEIN / CREATININE RATIO Lab Routine 8 weeks gestation of Hx of preeclampsia, prior , currently Expected: 08/01/2024, Expires: 10/31/2024 [facility] Comment on above: Expected: 08/01/2024 , Expires: 10/31/2024 Start: 08-01-2024 End: 10-31-2024 RUBELLA IGG ANTIBODY RUBELLA IGG ANTIBODY Lab Routine History of hemorrhage 8 weeks gestation of Expected: 08/01/2024, Expires: 10/31/2024 [facility] Comment on above: Expected: 08/01/2024 , Expires: 10/31/2024 Start: 08-01-2024 End: 10-31-2024 SYPHILIS TREPONEMAL W/REFLEX SYPHILIS TREPONEMAL W/REFLEX Lab Routine History of hemorrhage Screen for STD (sexually transmitted disease) 8 weeks gestation of Expected: 08/01/2024, Expires: 10/31/2024 [facility] Comment on above: Expected: 08/01/2024 , Expires: 10/31/2024 Start: 08-01-2024 End: 10-31-2024 Thyrotropin [Units/volume] in Serum or Plasma THYROID STIMULATING HORMONE Lab Routine 8 weeks gestation of Hypothyroidism, unspecified type Expected: 08/01/2024, Expires: 10/31/2024 [facility] Comment on above: Expected: 08/01/2024 , Expires: 10/31/2024 Start: 08-01-2024 End: 10-31-2024 TYPE + SCREEN TYPE + SCREEN Blood Bank Routine History of hemorrhage 8 weeks gestation of Expected: 08/01/2024, Expires: 10/31/2024 [facility] Comment on above: Expected: 08/01/2024 , Expires: 10/31/2024 Start: 08-01-2024 End: 08-01-2024 Patient encounter procedure 08/01/2024 8:15 AM EDT Initial Office Visit OB/Gynecology [address] [place] [address] Elayne Severino APRN.SENIOR ELECTRONICS ENGINEER [address] [place] [address] NOB LMP 06/04 OB/Gynecology Comment on above: NOB LMP 06/04 Start: 07-22-2024 End: 07-22-2024 ambulatory 07/22/2024 4:00 PM EDT [facility] [address] [facility] [place] [id number] Genie Jackson MD [address] [facility] [place], [place] [phone] Medication options for Linzess during pregancy. Family Medicine [place] Comment on above: Medication options f or Linzess during pregancy. Start: 06-27-2024 End: 06-27-2024 ambulatory 06/27/2024 11:00 AM EST [facility] [place] [address] [facility] [place], [place] [id number] Ivelisse Ng, ANALYSIS REPORTING DEVELOPER.SENIOR ELECTRONICS ENGINEER [address] [facility] [place] [address] 2 week f/u medication change Family Medicine [facility] Comment on above: 2 week f/u medicatio n change Start: 01-22-2024 End: 01-22-2024 Patient encounter procedure 01/22/2024 10:00 AM EDT Office Visit Family Medicine [place] [address] [facility] [place] [address] Ivelisse Ng, ANALYSIS REPORTING DEVELOPER.SENIOR ELECTRONICS ENGINEER [address] [facility] [place] [address] medication refills needed/Wellness visit needed Family Medicine [place] Comment on above: medication refills n eeded/Wellness visit needed Start: 01-03-2024 Covid-19 Vaccine ( season) Covid-19 Vaccine ( season) [facility] Start: 01-03-2024 Covid-19 Vaccine ( season) Covid-19 Vaccine ( season) [facility] Start: 01-03-2024 Influenza vaccination [facility] Start: 12-24-2023 End: 12-24-2023 Patient encounter procedure 12/24/2023 10:40 AM EDT Office Visit Family Medicine [place] [address] [place] [address] Ivelisse Ng APRN.SENIOR ELECTRONICS ENGINEER [address] [place] [address] yearly Family Medicine [facility] Comment on above: yearly Start: 11-24-2023 End: 11-24-2023 ambulatory 11/24/2023 4:30 PM EDT [facility]Gynecology [address] [place] [address] Elayne Severino APRN.SENIOR ELECTRONICS ENGINEER [address] [place] [address] Discuss ultrasound results OB/Gynecology Comment on above: Discuss ultrasound r esults Start: 11-19-2023 End: 11-19-2023 ambulatory 11/19/2023 1:30 PM EDT Procedure OB/Gynecology [address] [place] [address] Irregular menses [N92.6] OB/Gynecology Comment on above: Irregular menses [N9 2.6] Start: 11-04-2023 End: 02-03-2024 DHEA-S BLD DHEA-S BLD Lab Routine Irregular menses Expected: 11/04/2023, Expires: 02/03/2024 [facility] Comment on above: Expected: 11/04/2023 , Expires: 02/03/2024 Start: 11-04-2023 End: 02-03-2024 Estradiol (E2) [Mass/volume] in Serum or Plasma ESTRADIOL-17B BLD Lab Routine Irregular menses Expected: 11/04/2023, Expires: 02/03/2024 [facility] Comment on above: Expected: 11/04/2023 , Expires: 02/03/2024 Start: 11-04-2023 End: 02-03-2024 Follitropin [Units/volume] in Serum or Plasma FOLLICLE STIMULATING HORMONE Lab Routine Irregular menses Expected: 11/04/2023, Expires: 02/03/2024 [facility] Comment on above: Expected: 11/04/2023 , Expires: 02/03/2024 Start: 11-04-2023 End: 02-03-2024 Hemoglobin A1c in Blood HEMOGLOBIN A1C Lab Routine Irregular menses Class II obesity Expected: 11/04/2023, Expires: 02/03/2024 [facility] Comment on above: Expected: 11/04/2023 , Expires: 02/03/2024 Start: 11-04-2023 End: 02-03-2024 Lutropin [Units/volume] in Serum or Plasma LUTEINIZING HORMONE Lab Routine Irregular menses Expected: 11/04/2023, Expires: 02/03/2024 [facility] Comment on above: Expected: 11/04/2023 , Expires: 02/03/2024 Start: 11-04-2023 End: 02-03-2024 Progesterone [Mass/volume] in Serum or Plasma PROGESTERONE Lab Routine Irregular menses Expected: 11/04/2023, Expires: 02/03/2024 [facility] Comment on above: Expected: 11/04/2023 , Expires: 02/03/2024 Start: 11-04-2023 End: 02-03-2024 Thyrotropin [Units/volume] in Serum or Plasma THYROID STIMULATING HORMONE Lab Routine Irregular menses Acquired hypothyroidism Class II obesity Expected: 11/04/2023, Expires: 02/03/2024 [facility] Work Phone: Comment on above: Expected: 11/04/2023 , Expires: 02/03/2024 Start: 11-04-2023 End: 11-03-2024 US Pelvis PELVIC US [facility] Anc Imaging Routine Irregular menses Class II obesity Menorrhagia with irregular cycle Dysmenorrhea Expected: 11/04/2023, Expires: 11/03/2024 [facility] Comment on above: Expected: 11/04/2023 , Expires: 11/03/2024 Start: 08-27-2023 ANNUAL PCP TEAM CHRONIC DISEASE VISIT ANNUAL PCP TEAM CHRONIC DISEASE VISIT [facility] Start: 07-02-2023 [facility] Start: 06-17-2023 End: 09-16-2023 CBC W Auto Differential panel - Blood [facility] Work Phone: Comment on above: Expected: 06/17/2023 , Expires: 09/16/2023 Start: 06-17-2023 End: 09-16-2023 Choriogonadotropin.bet a subunit [Units/volume] in Serum or Plasma [facility] Work Phone: Comment on above: Expected: 06/17/2023 , Expires: 09/16/2023 Start: 06-17-2023 End: 09-16-2023 Comprehensive metabolic 2000 panel - Serum or Plasma [facility] Work Phone: Comment on above: Expected: 06/17/2023 , Expires: 09/16/2023 Start: 06-17-2023 End: 09-16-2023 Ferritin [Mass/volume] in Serum or Plasma [facility] Work Phone: Comment on above: Expected: 06/17/2023 , Expires: 09/16/2023 Start: 06-17-2023 End: 09-16-2023 Iron and Iron binding capacity panel - Serum or Plasma [facility] Work Phone: Comment on above: Expected: 06/17/2023 , Expires: 09/16/2023 Start: 05-04-2023 Behavioral Health Screening Behavioral Health Screening [facility] Start: 05-04-2023 Depression Assessment Depression Ass essment [facility] Start: 05-04-2023 zzBehavioral Health Screening zzBehavioral Health Screening [facility] Start: 03-07-2023 ANNUAL PCP TEAM CHRONIC DISEASE VISIT ANNUAL PCP TEAM CHRONIC DISEASE VISIT [facility] Start: 02-12-2023 ANNUAL PCP TEAM CHRONIC DISEASE VISIT ANNUAL PCP TEAM CHRONIC DISEASE VISIT [facility] Start: 01-02-2023 Covid-19 Vaccine () Covid-19 Vaccine () [facility] Start: 01-02-2023 Influenza vaccination [facility] Start: 12-21-2022 PAP TESTING PAP TESTING [facility] Start: 12-21-2022 Screening for malignant neoplasm of cervix [facility] Start: 11-26-2022 ANNUAL PCP TEAM CHRONIC DISEASE VISIT ANNUAL PCP TEAM CHRONIC DISEASE VISIT [facility] Start: 09-17-2022 ANNUAL PCP TEAM CHRONIC DISEASE VISIT ANNUAL PCP TEAM CHRONIC DISEASE VISIT [facility] Start: 08-26-2022 End: 10-26-2022 POTASSIUM BLD POTASSIUM BLD Lab Routine Hypokalemia Expected: 08/26/2022, Expires: 10/26/2022 [facility] Work Phone: Comment on above: Expected: 08/26/2022 , Expires: 10/26/2022 Start: 06-07-2022 ANNUAL PCP TEAM CHRONIC DISEASE VISIT ANNUAL PCP TEAM CHRONIC DISEASE VISIT [facility] Start: 05-04-2022 DEPRESSION ASSESSMENT DEPRESSION ASS ESSMENT [facility] Start: 04-05-2022 Adult depression screening assessment DEPRESSION SCREENING [facility] Start: 02-02-2022 End: 02-16-2022 Influenza virus A and B RNA and SARS-CoV-2 (COVID-19) N gene panel - Respiratory specimen by RODERICK with probe detection COVID WITH FLUA+B, ROUTINE Microbiology Routine Viral URI with cough Expected: 02/02/2022, Expires: 02/16/2022 [facility] Work Phone: Comment on above: Expected: 02/02/2022 , Expires: 02/16/2022 Start: 01-02-2022 Influenza vaccination [facility] Start: 10-01-2021 End: 12-01-2021 Pyridoxine [Mass/volume] in Serum or Plasma VITAMIN B6/PYRIDOXIN Lab Routine Fatigue, unspecified type Expected: 10/01/2021, Expires: 12/01/2021 [facility] Work Phone: Comment on above: Expected: 10/01/2021 , Expires: 12/01/2021 Start: 10-01-2021 End: 12-01-2021 VITAMIN B12 BLOOD VITAMIN B12 BLOOD Lab Routine Fatigue, unspecified type Expected: 10/01/2021, Expires: 12/01/2021 [facility] Work Phone: Comment on above: Expected: 10/01/2021 , Expires: 12/01/2021 Start: 10-01-2021 End: 12-01-2021 VITAMIN D 25 HYDROXY VITAMIN D 25 HYDROXY Lab Routine Fatigue, unspecified type Expected: 10/01/2021, Expires: 12/01/2021 [facility] Work Phone: Comment on above: Expected: 10/01/2021 , Expires: 12/01/2021 Start: 07-25-2021 COVID-19 VACCINE (2 - Pfizer series) COVID-19 VACCINE (2 - Pfizer series) [facility] Start: 06-20-2021 COVID-19 VACCINE (2 - Pfizer 3-dose series) COVID-19 VACCINE (2 - Pfizer 3-dose series) [facility] Start: 06-20-2021 COVID-19 VACCINE (2 - Pfizer series) COVID-19 VACCINE (2 - Pfizer series) [facility] Start: 05-04-2021 DEPRESSION ASSESSMENT DEPRESSION ASS ESSMENT [facility] Start: 02-07-2019 Urine microalbumin profile [facility] Start: 2017 ONE PNEUMOVAX PRIOR TO AGE 65 ONE PNEUMOVAX PRIOR TO AGE 65 [facility] Start: 12-20-2016 CHLAMYDIA SCREENING (18-24) CHLAMYDIA SCREENING (18-24) [facility] Start: 12-20-2016 GC (GONORRHEA) SCREENING (18-24) GC (GONORRHEA) SCREENING (18-24) [facility] Start: 02-01-2016 Anxiety Screening Anxiety Screening [facility] Start: 02-01-2016 Depression Screening Depression Scre ening [facility] Start: 2014 Meningococcal B Vaccine: Consider Based On Risk (1 of 2 - Patient Seeks Protection) Meningococcal B Vaccine: Consider Based On Risk (1 of 2 - Patient Seeks Protection) [facility] Start: 02-01-2012 PEDS TO ADULT TRANSITION ANNUAL ASSESSMENT PEDS TO ADULT TRANSITION ANNUAL ASSESSMENT [facility] Start: 2010 PEDS TO ADULT TRANSITION INITIAL DISCUSSION PEDS TO ADULT TRANSITION INITIAL DISCUSSION [facility] Start: 02-01-2008 MENINGOCOCCAL B: Consider based on risk (1 of 2 - Risk Bexsero 2-dose series) MENINGOCOCCAL B: Consider based on risk (1 of 2 - Risk Bexsero 2-dose series) [facility] Start: 02-01-2004 PNEUMOCOCCAL (1 - PCV) PNEUMOCOCCAL (1 - PCV) [facility] Bacteria identified in Urine by Culture URINE CULTURE Microbiology Routine Acute UTI 09/30/2022 12:45 PM EDT [facility] Work Phone: Bacteria identified in Urine by Culture BACTERIAL CULTURE, URINE Microbiology Routine History of hemorrhage 8 weeks gestation of 08/01/2024 9:47 AM T [facility] Chlamydia trachomatis+Neisseria gonorrhoeae DNA [Presence] in Unspecified specimen by RODERICK with probe detection GONORRHEA/CHLAMYDIA NAAT Lab Routine History of hemorrhage Screen for STD (sexually transmitted disease) 8 weeks gestation of 08/01/2024 9:47 AM EDT [facility] Chlamydia trachomatis+Neisseria gonorrhoeae DNA [Presence] in Unspecified specimen by RODERICK with probe detection GONORRHEA/CHLAMYDIA NAAT Lab Routine Supervision of other high risk pregnancies, second trimester ([facility]) 16 weeks gestation of ([facility]) Trichomoniasis Screen for STD (sexually transmitted disease) 09/29/2024 11:48 AM [facility] End: 08-27-2023 EMG(NEURO/NI) EMG(NEURO/NI) EMG Routine Paresthesia Hand pain, left 1 Occurrences starting 08/26/2022 until 08/27/2023 [facility] Work Phone: Comment on above: 1 Occurrences starti ng 08/26/2022 until 08/27/2023 End: 04-17-2025 OBSTETRIC ULTRASOUND [facility] OBSTETRIC ULTRASOUND [facility] Anc Imaging Routine Supervision of other high risk pregnancies, second trimester ([facility]) Hx of preeclampsia, prior , currently ([facility]) Obesity in ([facility]) Hypothyroidism, unspecified type Once per month for 6 Occurrences starting 09/29/2024 until 04/17/2025 [facility] Work Phone: Comment on above: Once per month for 6 Occurrences starting 09/29/2024 until 04/17/2025 PAP TEST PAP TEST Lab Yari fitzpatrick Encounter for gynecological examination (general) (routine) without abnormal findings Screening for cervical cancer Encounter for screening for human papillomavirus (HPV) 11/10/2023 3:58 PM EDT [facility] Work Phone: Patient Education [facility] Work Phone: Patient referral [facility] Work Phone: End: 08-31-2025 Thyrotropin [Units/volume] in Serum or Plasma THYROID STIMULATING HORMONE Lab Routine Hypothyroidism, unspecified type Once per month for 8 Occurrences starting 08/31/2024 until 08/31/2025 [facility] Comment on above: Once per month for 8 Occurrences starting 08/31/2024 until 08/31/2025 End: 08-31-2025 Thyroxine (T4) free [Mass/volume] in Serum or Plasma T4 FREE/FREE THYROXINE Lab Routine Hypothyroidism, unspecified type Once per month for 8 Occurrences starting 08/31/2024 until 08/31/2025 [facility] Work Phone: Comment on above: Once per month for 8 Occurrences starting 08/31/2024 until 08/31/2025 TRICHOMONAS VAGINALI S NAAT TRICHOMONAS VAGINALIS NAAT Lab Routine Screen for STD (sexually transmitted disease) 8 weeks gestation of 08/01/2024 9:47 AM EDT [facility] TRICHOMONAS VAGINALI S NAAT TRICHOMONAS VAGINALIS NAAT Lab Routine Supervision of other high risk pregnancies, second trimester (HCC) 16 weeks gestation of (HCC) Trichomoniasis Screen for STD (sexually transmitted disease) 09/29/2024 11:48 AM EDT [facility] [place] [facility] Immunizations Immunization Date Immunization Notes Care Provider Claudio ortez 05-30-2021 COVID-19 vaccine, ag e 12+ yr ([employer]) Genie Jackson MD Work Phone: [facility] 07-23-2016 influenza virus vacc ine, unspecified formulation Terrell Cloud APRN.CNP Work Phone: [facility] 12-05-2009 human papilloma viru s vaccine, quadrivalent Genie Jackson MD Work Phone: [facility] Work Phone: 08-01-2009 human papilloma viru s vaccine, quadrivalent Genie Jackson MD Work Phone: [facility] Work Phone: 02-07-2009 human papilloma viru s vaccine, quadrivalent Genie Jackson MD Work Phone: [facility] Work Phone: 02-07-2009 meningococcal polysaccharide vaccine (MPSV4) Ivelisse Ng ANALYSIS REPORTING DEVELOPER.SENIOR ELECTRONICS ENGINEER Work Phone: [facility] 02-07-2009 Meningococcal, MCV4, unspecified conjugate formulation(groups A, C, Y and W-135) Genie Jackson MD Work Phone: [facility] Work Phone: 02-07-2009 tetanus toxoid, redu george diphtheria toxoid, and acellular pertussis vaccine, adsorbed Genie Jackson MD Work Phone: [facility] Work Phone: 10-11-2003 diphtheria, tetanus toxoids and acellular pertussis vaccine Genie Jackson MD Work Phone: [facility] Work Phone: 10-11-2003 poliovirus vaccine, inactivated Genie Jackson MD Work Phone: [facility] Work Phone: 08-03-2003 measles, mumps and rubella virus vaccine Genie Jackson MD Work Phone: [facility] Work Phone: 12-20-1999 diphtheria, tetanus toxoids and acellular pertussis vaccine Genie Jackson MD Work Phone: [facility] Work Phone: 12-20-1999 haemophilus influenz ae type b vaccine, HbOC conjugate Genie Jackson MD Work Phone: [facility] Work Phone: 12-20-1999 haemophilus influenz ae type b vaccine, PRP-OMP conjugate Ivelisse Ng ANALYSIS REPORTING DEVELOPER.SENIOR ELECTRONICS ENGINEER Work Phone: [facility] 03-20-1999 diphtheria, tetanus toxoids and acellular pertussis vaccine Genie Jackson MD Work Phone: [facility] Work Phone: 03-20-1999 haemophilus influenz ae type b vaccine, HbOC conjugate Genie Jackson MD Work Phone: [facility] Work Phone: 03-20-1999 haemophilus influenz ae type b vaccine, PRP-OMP conjugate Ivelisse Ng APRN.SENIOR ELECTRONICS ENGINEER Work Phone: [facility] 03-20-1999 measles, mumps and rubella virus vaccine Genie Jackson MD Work Phone: [facility] Work Phone: 03-20-1999 poliovirus vaccine, inactivated Genie Jackson MD Work Phone: [facility] Work Phone: 1998 hepatitis B vaccine, pediatric or pediatric/adolescent dosage Genie Jackson MD Work Phone: [facility] Work Phone: 1998 diphtheria, tetanus toxoids and acellular pertussis vaccine Genie Jackson MD Work Phone: [facility] Work Phone: 1998 haemophilus influenz ae type b vaccine, HbOC conjugate Genie Jackson MD Work Phone: [facility] Work Phone: 1998 haemophilus influenz ae type b vaccine, PRP-OMP conjugate Ivelisse Ng APRN.SENIOR ELECTRONICS ENGINEER Work Phone: [facility] 1998 poliovirus vaccine, inactivated Genie Jackson MD Work Phone: [facility] Work Phone: 1998 diphtheria, tetanus toxoids and acellular pertussis vaccine Genie Jackson MD Work Phone: [facility] Work Phone: 1998 haemophilus influenz ae type b vaccine, HbOC conjugate Genie Jackson MD Work Phone: [facility] Work Phone: 1998 haemophilus influenz ae type b vaccine, PRP-OMP conjugate Ivelisse Ng ANALYSIS REPORTING DEVELOPER.SENIOR ELECTRONICS ENGINEER Work Phone: [facility] 1998 poliovirus vaccine, inactivated Genie Jackson MD Work Phone: [facility] Work Phone: 1998 hepatitis B vaccine, pediatric or pediatric/adolescent dosage Genie Jackson MD Work Phone: [facility] Work Phone: 1998 hepatitis B vaccine, pediatric or pediatric/adolescent dosage Genie Jackson MD Work Phone: [facility] Work Phone: Payers Date Payer Category Payer Unknown [id number] 2022 Unknown 2022 Private Health Insurance [id number] 2022 Self-pay [id number] 2017 Private Health Insurance 2017 Private Health Insurance AETNA A ETNA CHOICE POS II [id number] 2017-Present [phone] [address] [place] [address] POS [id number] 2017 Unknown [employer] [id number] 2017 Unknown [id number] 2016 Medicaid [employer] A[employer] MEDICAID [id number] 2016-Present [phone] [address] [place] [address] Medicaid [id number] 2016 Medicaid [id number] 1998 Unknown [id number] 1998 Unknown [id number] Unknown [id number] Unknown [id number] Social History Date Type Detail Facility Start: 05-04-2012 End: 12-24-2021 Tobacco smoking status NHIS Smokes tobacco daily [facility] Start: 05-04-2012 End: 08-20-2020 History of tobacco use Cigarette Smoker [facility] Start: 04-14-2014 End: 06-15-2024 Cigarettes smoked current (pack per day) - Reported 0.5 [facility] Start: 04-14-2014 End: 07-25-2024 Tobacco use and exposure Smokeless tobacco non-user [facility] Start: 05-09-2021 End: 07-20-2024 Alcohol intake Current non-drinker of alcohol (finding) [facility] Start: 01-09-2021 End: 08-25-2022 History SDOH Alcohol Frequency 1 [facility] Start: 01-09-2021 History SDOH Social Connections Phone 3 [facility] Start: 01-09-2021 End: 08-25-2022 History SDOH Social Connections Membership 2 [facility] Start: 01-09-2021 History SDOH Social Connections Living 8 [facility] Start: 01-09-2021 History SDOH Physica l Activity DPW 0 [facility] Start: 01-09-2021 End: 08-25-2022 History SDOH Stress 5 [facility] Start: 01-09-2021 Education 11 [facility] Start: 07-30-2020 End: 12-24-2021 Tobacco Comment Vapes [facility] Start: 2000 Sex Assigned At Not on file [facility] Start: 09-07-2021 End: 12-24-2021 Exposure to SARS-CoV-2 (event) Not sure [facility] Start: 09-25-2021 End: 07-25-2024 Tobacco smoking status NHIS Ex-smoker [facility] Work Phone: Start: 05-04-2012 End: 08-20-2020 History of tobacco use Current smoker [facility] Work Phone: Start: 03-02-2022 End: 07-02-2023 Tobacco smoking status WIIS Unknown if ever smoked [facility] Start: 09-27-2017 None [facility] Start: 09-27-2017 [facility] Start: 2000 Sex Assigned At Female [facility] Start: 08-25-2022 History SDOH Social Connections Get Together 4 [facility] Start: 08-25-2022 History SDOH Social Connections Living 7 [facility] Start: 08-25-2022 History SDOH Physica l Activity MPS 15 [facility] Start: 08-25-2022 End: 06-15-2024 Social connection and isolation panel [facility] Do you belong to any clubs or organizations such as advent groups, unions, fraternal or athletic groups, or school groups? No [facility] Are you now , , , , never or living with a partner? Never [facility] How often to you hav e a drink containing alcohol? Monthly or less [facility] How many standard dr inks containing alcohol do you have on a typical day? 1 or 2 [facility] How often do you hav e 6 or more drinks on 1 occasion? Never [facility] How hard is it for y ou to pay for the very basics like food, housing, medical care, and heating Not hard at all [facility] Do you feel stress - tense, restless, nervous, or anxious, or unable to sleep at night because your mind is troubled all the time - these days [OSQ] Very much [facility] (I/We) worried wheth er (my/our) food would run out before (I/we) got money to buy more. Never true [facility] Tobacco smoking status No Smokin g Status Entered [facility] Are you now , , , , never or living with a partner? Living with partner [facility] Start: 08-01-2024 End: 10-26-2024 Alcoholic beverage intake Ex-drinker (finding) [facility] Start: 07-25-2024 Alcohol Comment rarely Johnieradha [facility] Start: 06-18-2024 [facility] NEGATED: Highlighted row [facility] NEGATED: Highlighted rowStart: [place] History of tobacco use Passive smoker [facility] Goals Date Patient Goal Desired Activity /State Personal health goal Functional Status Date Assessment Result Facility 07-06-2023 Functional Status ID band on, Safety level maintained [facility] 08-18-2014 Are you deaf, or do you have serious difficulty hearing No 08/18/2014 3:08 PM EDT Yaritza Juarez MA No [facility] 08-18-2014 Are you blind, or do you have serious difficulty seeing, even when wearing glasses No 08/18/2014 3:08 PM EDT Yaritza Juarez MA No [facility] 08-18-2014 Do you have serious difficulty walking or climbing stairs No 08/18/2014 3:08 PM EDT Yaritza Juarez MA No [facility] 08-18-2014 Do you have difficul ty dressing or bathing No 08/18/2014 3:08 PM EDT Yaritza Juarez MA No [facility] 08-18-2014 Because of a physica l, mental, or emotional condition, do you have difficulty doing errands alone such as visiting a physician's office or shopping No 08/18/2014 3:08 PM EDT Yaritza Juarez MA No [facility] Mental Status Date Assessment Result Facility 07-06-2023 Mental Status Orientation Oriented x 4 [facility] 07-02-2023 Cognitive function Level Of Cons ciousness Awake;Alert;Appropriate [facility] Work Phone: 09-06-2022 Cognitive function Level Of Cons ciousness Awake;Alert;Appropriate;Fol lows Commands [facility] Work Phone: 08-18-2014 Because of a physica l, mental, or emotional condition, do you have serious difficulty concentrating, remembering, or making decisions Yes 08/18/2014 3:08 PM EDT Yaritza Juarez MA Yes [facility] Clinical Notes 07-23-2016 to 11-16-2024 Telephone Encounter - Joyce Frost MD - 11/16/2024 11:37 AM EDTTelephone Encounter - Joyce Frost MD - 11/16/2024 11:37 AM EDTPatient InstructionsPatient Instructions Note Date & Type Note Facility 11-16-2024 Telephone encounter Note Noted. Thank you [facility] Work Phone: 11-16-2024 Miscellaneous Notes Noted. Thank you 23w4d REASON FOR CALL: Headache pain rate of 10/10 SYMPTOMS: Headache pain, denies RUQ pain or vision changes. HIGH RISK FACTORS: Hx of Pre E ONSET OF SYMPTOMS: 2 weeks ago FREQUENCY OF EPISODES OF HEADACHE: Pain 10/10 VARGAS occurs daily every morning when she wakes up. MEDICATIONS / MEASURES: Tylenol 1,000 MG ALLEVIATE SYMPTOMS: pain rate will go down to a 7 or remain a 10. ADVICE : Advised patient to have someone take her to the ER for pain rate of 10/10 Patient asked if she could have an appointment in the office today instead. Again, advised that she is reporting her pain as a 10 and that indicates a visit to the ER. Next OB visit is 11/23. Steffanie Lozada RN documented in this encounter [facility] 11-16-2024 Telephone encounter Note 23w4d REASON FOR CALL: Headache pain rate of 10/10 SYMPTOMS: Headache pain, denies RUQ pain or vision changes. HIGH RISK FACTORS: Hx of Pre E ONSET OF SYMPTOMS: 2 weeks ago FREQUENCY OF EPISODES OF HEADACHE: Pain 10/10 VARGAS occurs daily every morning when she wakes up. MEDICATIONS / MEASURES: Tylenol 1,000 MG ALLEVIATE SYMPTOMS: pain rate will go down to a 7 or remain a 10. ADVICE : Advised patient to have someone take her to the ER for pain rate of 10/10 Patient asked if she could have an appointment in the office today instead. Again, advised that she is reporting her pain as a 10 and that indicates a visit to the ER. Next OB visit is 11/23. Steffanie Lozada RN [facility] 10-27-2024 Telephone encounter Note 2nd risk assessment form submitted 10/27/2024. Steffanie Neely RN [facility] 10-27-2024 Miscellaneous Notes 2nd risk assessment form submitted 10/27/2024. Steffanie Neely RN documented in this encounter [facility] 10-26-2024 Progress note Formatting of t his note might be different from the original. S: Janet Frank is a 24 year old female who presents at 03/11/2025, by Last Menstrual Period for a routine visit. Denies headache, visual changes, chest pain, shortness of breath, vaginal bleeding, leakage of fluid, or dysuria. Feeling well, no complaints. Good movement, No contractions O: See flow sheet Gen: No apparent distress Abd: Gravid, nontender Anatomy US -prelim normal ASSESSMENT/PLAN: 1. Supervision of other high risk pregnancies, second trimester (HCC) - ICD9: V23.89, ICD10: O09.892 (primary diagnosis) 2. Obesity in (HCC) - ICD9: 649.10, ICD10: O99.210 Growth q 4 NST at 32 weeks 3. Hypothyroidism, unspecified type - ICD9: 244.9, ICD10: E03.9 Sees endocrine 4. Hx of preeclampsia, prior , currently ([facility]) - ICD9: V23.49, ICD10: O09.299 5. 20 weeks gestation of ([facility]) - ICD9: V22.2, ICD10: Z3A.20 Steffanie Lopez MD [facility] 10-26-2024 Miscellaneous Notes S: Janet Frank is a 24 year old female who presents at 03/11/2025, by Last Menstrual Period for a routine visit. Denies headache, visual changes, chest pain, shortness of breath, vaginal bleeding, leakage of fluid, or dysuria. Feeling well, no complaints. Good movement, No contractions O: See flow sheet Gen: No apparent distress Abd: Gravid, nontender Anatomy US -prelim normal ASSESSMENT/PLAN: 1. Supervision of other high risk pregnancies, second trimester ([facility]) - ICD9: V23.89, ICD10: O09.892 (primary diagnosis) 2. Obesity in ([facility]) - ICD9: 649.10, ICD10: O99.210 Growth q 4 NST at 32 weeks 3. Hypothyroidism, unspecified type - ICD9: 244.9, ICD10: E03.9 Sees endocrine 4. Hx of preeclampsia, prior , currently ([facility]) - ICD9: V23.49, ICD10: O09.299 5. 20 weeks gestation of ([facility]) - ICD9: V22.2, ICD10: Z3A.20 Steffanie Lopez MD documented in this encounter [facility] 10-26-2024 Instructions Angie Brown MA - 10/26/2024 11:10 AM EDT SEQUENTIAL SCREENINGS The [facility] offers sequential screenings for women who are interested in screenings for chromosomal abnormalities and certain defects during a . The sequential screen combines ultrasound and blood tests to determine the risk of chromosomal abnormalities, including Down's Syndrome (Trisomy 21) and Trisomy 18, as well as open neural tube defects including spina bifida. Ultrasound examination is performed between 11 weeks and 13 weeks gestational age. Blood tests are drawn after the ultrasound and again later in the between 15 and 21 weeks gestational age. Please let your physician know if you are interested in this testing. It will require an appointment with our husbandry technician. This is not an ultrasound performed by a physician in our office during a routine visit. SIGNS AND SYMPTOMS OF LABOR 1. Contractions every 10 minutes or more often 2. Clear, pink, or brownish fluid (water) leaking from vagina 3. Feeling that baby is pushing down, pressure 4. Low, dull backache 5. Cramps that feel like a period 6. Cramps with or without diarrhea If you notice any of the above symptoms, contact our office at [phone] and ask to speak with a nurse. After hours, you can call doctors registry at [phone] OR call [facility] at [phone] and ask to have the doctor solar applications development engineer paged. If you consider this an emergency, dial 9-4-0 or go to your nearest emergency department. NEED HELP? Are you dealing with a violent or abusive relationship? Are you a victim of rape or sexual assult? Call [facility] ([place]) 24 hour Crisis Hotline: 402.648.2289 or 027-162-2109. MANUAL Your Guide to a Healthy manual is now on-line. Visit [email or web address] to download your free copy documented in this encounter [facility] 09-29-2024 Progress note Formatting of t his note might be different from the original. RR- VB No. LOF No. CTXS No. Movement: present. Other c/o: No. Medication list reviewed. SENSITIVE EXAM: The sensitive examination was discussed with the Patient or Patient's Authorized Tube Station Attendant. As applicable, any other physician, advance practice provider, medical student, or other health professional student that will be observing or involved in the sensitive examination for educational or training purposes was discussed with the Patient or Authorized Tube Station Attendant. The Patient or Authorized Tube Station Attendant has agreed to proceed with the sensitive examination. (Sensitive examination includes inspection and/or palpation of the breasts, pelvis, prostate and anorectal regions). Physical Exam See Flow Sheet Abd: soft, nontender, gravid : external genitalia: normal, vagina: pink, ruggated, and discharge: clear, white, mucous Ext: edema: Trace A/P 16w5d Estimated Date of Delivery: 03/11/25 Assessment & Plan Supervision of other high risk pregnancies, second trimester ([facility]) Orders: TRICHOMONAS VAGINALIS NAAT GONORRHEA/CHLAMYDIA NAAT CONSULT TO ENDOCRINOLOGY; Future OBSTETRIC ULTRASOUND WHI; Standing Hx of preeclampsia, prior , currently ([facility]) Orders: OBSTETRIC ULTRASOUND WHI; Standing Obesity in ([facility]) counseled on wt gain Orders: OBSTETRIC ULTRASOUND WHI; Standing Hypothyroidism, unspecified type increased syntrhoid to 62.5 mg daily, rx sent Orders: CONSULT TO ENDOCRINOLOGY; Future OBSTETRIC ULTRASOUND WHI; Standing 16 weeks gestation of ([facility]) Orders: TRICHOMONAS VAGINALIS NAAT GONORRHEA/CHLAMYDIA NAAT CONSULT TO ENDOCRINOLOGY; Future Trichomoniasis Orders: TRICHOMONAS VAGINALIS NAAT GONORRHEA/CHLAMYDIA NAAT Screen for STD (sexually transmitted disease) Orders: TRICHOMONAS VAGINALIS NAAT GONORRHEA/CHLAMYDIA NAAT f/u in 4 weeks or prn Emmnauel Hess M.D. [facility] 09-29-2024 Miscellaneous Notes RR- VB No. LOF No. CTXS No. Movement: present. Other c/o: No. Medication list reviewed. SENSITIVE EXAM: The sensitive examination was discussed with the Patient or Patient's Authorized Tube Station Attendant. As applicable, any other physician, advance practice provider, medical student, or other health professional student that will be observing or involved in the sensitive examination for educational or training purposes was discussed with the Patient or Authorized Tube Station Attendant. The Patient or Authorized Tube Station Attendant has agreed to proceed with the sensitive examination. (Sensitive examination includes inspection and/or palpation of the breasts, pelvis, prostate and anorectal regions). Physical Exam See Flow Sheet Abd: soft, nontender, gravid : external genitalia: normal, vagina: pink, ruggated, and discharge: clear, white, mucous Ext: edema: Trace A/P 16w5d Estimated Date of Delivery: 03/11/25 Assessment & Plan Supervision of other high risk pregnancies, second trimester ([facility]) Orders: TRICHOMONAS VAGINALIS NAAT GONORRHEA/CHLAMYDIA NAAT CONSULT TO ENDOCRINOLOGY; Future OBSTETRIC ULTRASOUND WHI; Standing Hx of preeclampsia, prior , currently ([facility]) Orders: OBSTETRIC ULTRASOUND WHI; Standing Obesity in ([facility]) counseled on wt gain Orders: OBSTETRIC ULTRASOUND WHI; Standing Hypothyroidism, unspecified type increased syntrhoid to 62.5 mg daily, rx sent Orders: CONSULT TO ENDOCRINOLOGY; Future OBSTETRIC ULTRASOUND WHI; Standing 16 weeks gestation of ([facility]) Orders: TRICHOMONAS VAGINALIS NAAT GONORRHEA/CHLAMYDIA NAAT CONSULT TO ENDOCRINOLOGY; Future Trichomoniasis Orders: TRICHOMONAS VAGINALIS NAAT GONORRHEA/CHLAMYDIA NAAT Screen for STD (sexually transmitted disease) Orders: TRICHOMONAS VAGINALIS NAAT GONORRHEA/CHLAMYDIA NAAT f/u in 4 weeks or prn Emmanuel Hess M.D. documented in this encounter [facility] 09-29-2024 Instructions Yaritza Juarez MA - 09/29/2024 11:25 AM EDT SEQUENTIAL SCREENINGS The [facility] offers sequential screenings for women who are interested in screenings for chromosomal abnormalities and certain defects during a . The sequential screen combines ultrasound and blood tests to determine the risk of chromosomal abnormalities, including Down's Syndrome (Trisomy 21) and Trisomy 18, as well as open neural tube defects including spina bifida. Ultrasound examination is performed between 11 weeks and 13 weeks gestational age. Blood tests are drawn after the ultrasound and again later in the between 15 and 21 weeks gestational age. Please let your physician know if you are interested in this testing. It will require an appointment with our husbandry technician. This is not an ultrasound performed by a physician in our office during a routine visit. SIGNS AND SYMPTOMS OF LABOR 1. Contractions every 10 minutes or more often 2. Clear, pink, or brownish fluid (water) leaking from vagina 3. Feeling that baby is pushing down, pressure 4. Low, dull backache 5. Cramps that feel like a period 6. Cramps with or without diarrhea If you notice any of the above symptoms, contact our office at [phone] and ask to speak with a nurse. After hours, you can call doctors registry at [phone] OR call [facility] at [phone] and ask to have the doctor solar applications development engineer paged. If you consider this an emergency, dial 9-1-0 or go to your nearest emergency department. NEED HELP? Are you dealing with a violent or abusive relationship? Are you a victim of rape or sexual assult? Call [facility] ([place]) 24 hour Crisis Hotline: 548.827.8383 or 311-396-7414. MANUAL Your Guide to a Healthy manual is now on-line. Visit [email or web address] to download your free copy documented in this encounter [facility] 09-08-2024 Telephone encounter Note Med refilled at appt Genie Jackson MD [facility] 09-08-2024 Miscellaneous Notes Med refilled at appt Genie Jackson MD Patient reports she is completely out of her buspar. Requesting refill. Pended. Patient currently , 13 weeks, 4 days, sees PREFORMS LAMINATOR MYRIAM was 08/04/24 -Per note, OK to change to Buspar 15 mg bid and continue zoloft 50 mg daily, F/U in 3-6 months. Of note, pt made VV for tomorrow 09/08 to discuss a possible increase in buspar. The patient has been identified by name and date of : Yes Caregiver verified no other encounters exist for this prescription request: Yes Caregiver confirmed with patient/requestor that no other refills are due, in the near future, with this provider at this time: Yes The last office visit in the department: 05/13/2024 Does the patient have a future office visit with this provider/department: Yes 09/08/2024 Requested Prescriptions Pending Prescriptions Disp Refills busPIRone (BUSPAR) 15 mg tablet Sig: Take 1 tablet by mouth two times a day. Lis Link RN September 07, 2024 12:02 PM documented in this encounter [facility] 09-08-2024 History of Presen t illness Narrative Chief Complaint Patient presents with: Medication Follow-up HPI: This Team Access Model visit is a virtual/phone encounter. It required patient-provider interaction for the medical decision making as documented below. Patient was offered a virtual/telemedicine appointment in lieu of an office visit due to recommendations to reduce patient exposure to COVID-19. Patient is aware of limitations of performing the visit without a face to face visit in the office setting and agrees. I have communicated my name and active licensure. The patient's identity and physical location were verified at the time of this visit. Either the patient or their legal escrow representative has been informed of the risks and benefits of -- and alternatives to -- treatment through a remote evaluation and consents to proceed with the evaluation remotely. Pt is 14 weeks . She is having increased anxiety with a little depression, mostly anxiety issues. Pt would like to discuss increasing her Buspar dosage. She is currently taking 15 mg 1 pill twice a day as well as Zoloft 50 mg once a day. She ran out of the Buspar yesterday. She wants to increase dosage to TID. She has been taking it 3 times/day and finds that it works better at this dose. Does not do any counseling, has done in past with little help. Past medical history, appointments, medications, allergies reviewed. Previous Medical History PAST MEDICAL HISTORY Diagnosis Date Adenomyosis of the uterus Anxiety and depression [facility], Dr. Jimenez Excessive or frequent menstruation Heavy periods, resolved with OCP GERD (gastroesophageal reflux disease) History of blood transfusion Hypothyroid Obesity, Class II, BMI 35-39.9 Previous Surgical History PAST SURGICAL HISTORY Procedure Laterality Date COLONOSCOPY FLX DX W/COLLJ SPEC WHEN PFRMD 10/14/2017 Colonoscopy ESOPHAGOGASTRODUODENOSCOPY TRANSORAL DIAGNOSTIC 10/14/2017 EGD Family History FAMILY HISTORY Problem Relation Age of Onset No Known Problems Mother other (does not know biological father) Father No Known Problems Sister Diabetes Maternal Grandmother Hypertension Maternal Grandmother Lipids Maternal Grandfather Hypertension Maternal Grandfather Heart Maternal Uncle No Known Problems Half-sister Breast Cancer No Family History Colon Cancer No Family History Uterine Cancer No Family History Ovarian cancer No Family History Patient Allergies ALLERGIES No Known Allergies Current Medications Current Outpatient Medications on File Prior to Visit Medication Sig aspirin, enteric coated (ECOTRIN LOW STRENGTH) 81 mg EC tablet Take 2 tablets by mouth once daily. busPIRone (BUSPAR) 15 mg tablet Take 1 tablet by mouth two times a day. VIT [id number] ORAL Take by mouth. diphenhydramine HCl (UNISOM, DIPHENHYDRAMINE, ORAL) Take by mouth as needed. pyridoxine, vitamin B6, (VITAMIN B-6) 25 mg tablet Take 25 mg by mouth once daily. ondansetron (ZOFRAN) 4 mg tablet Take 1 tablet by mouth every 8 hours as needed for nausea/vomiting. sertraline (ZOLOFT) 50 mg tablet Take 1 tablet by mouth once daily. levothyroxine (SYNTHROID) 50 mcg tablet Take 1 tablet by mouth once daily. No current facility-administered medications on file prior to visit. Social History Social History Tobacco Use Smoking status: Former Current packs/day: 0.00 Average packs/day: 0.5 packs/day for 8.3 years (4.1 ttl pk-yrs) Types: Cigarettes Start date: 05/04/2012 Quit date: 08/20/2020 Years since quittin.0 Passive exposure: Never Smokeless tobacco: Never Vaping Use Vaping status: current everyday user Substances: Nicotine Substance Use Topics Alcohol use: Not Currently Comment: rarely Drug use: Not Currently Types: Marijuana Comment: last used marijuana 06/18/2024 EXAM: LMP 06/04/2024 (Exact Date) General Appearance: Well appearing, alert, in no acute distress, well-hydrated, well nourished.. Health Maintenance List DTaP,Tdap,Td Vaccine(7 - Td or Tdap) due on 02/07/2019 Covid-19 Vaccine() due on 01/03/2024 Influenza Vaccine(Season Ended) due on 01/02/2025 RSV Vaccine(1 - Risk 1-dose series) due on 01/14/2025 Annual PCP Team Chronic Disease Visit due on 08/04/2025 Cervical Cancer Screening due on 11/09/2026 Hepatitis B Vaccine Completed HPV Vaccine Completed Hepatitis C Screening Completed HIV Screening Completed Data reviewed none ASSESSMENT/PLAN: 1. RUDOLPH (generalized anxiety disorder) - ICD9: 300.02, ICD10: F41.1 Increase Buspar to tid - BUSPIRONE 15 MG TABLET 2. Panic attack - ICD9: 300.01, ICD10: F41.0 Continue Zoloft 50 mg daily - BUSPIRONE 15 MG TABLET Follow up in 3 months I agree with the Chief Complaint, ROS, and Past Histories independently gathered by the clinical peer support specialist and the remaining scribed note accurately describes my personal service to the patient. Genie Jackson MD The documentation for this note was completed by Lyric Jaquez MA acting as scribe for Genie Jackson MD. September 08, 2024 9:07 AM. Lyric Jaquez MA documented in this encounter [facility] 09-08-2024 Note HNO ID: [id number] Author: GENIE JACKSON MD Service: ? Author Type: Physician Type: Progress Notes Filed: 09/08/2024 10:21 Note Text: Chief Complaint Patient presents with: Medication Follow-up HPI: This Team Access Model visit is a virtual/phone encounter. It required patient-provider interaction for the medical decision making as documented below. Patient was offered a virtual/telemedicine appointment in lieu of an office visit due to recommendations to reduce patient exposure to COVID-19. Patient is aware of limitations of performing the visit without a face to face visit in the office setting and agrees. I have communicated my name and active licensure. The patient's identity and physical location were verified at the time of this visit. Either the patient or their legal escrow representative has been informed of the risks and benefits of -- and alternatives to -- treatment through a remote evaluation and consents to proceed with the evaluation remotely. Pt is 14 weeks . She is having increased anxiety with a little depression, mostly anxiety issues. Pt would like to discuss increasing her Buspar dosage. She is currently taking 15 mg 1 pill twice a day as well as Zoloft 50 mg once a day. She ran out of the Buspar yesterday. She wants to increase dosage to TID. She has been taking it 3 times/day and finds that it works better at this dose. Does not do any counseling, has done in past with little help. Past medical history, appointments, medications, allergies reviewed. Previous Medical History PAST MEDICAL HISTORY Diagnosis Date Adenomyosis of the uterus Anxiety and depression [facility], Dr. Jimenez Excessive or frequent menstruation Heavy periods, resolved with OCP GERD (gastroesophageal reflux disease) History of blood transfusion Hypothyroid Obesity, Class II, BMI 35-39.9 Previous Surgical History PAST SURGICAL HISTORY Procedure Laterality Date COLONOSCOPY FLX DX W/COLLJ SPEC WHEN PFRMD 10/14/2017 Colonoscopy ESOPHAGOGASTRODUODENOSCOPY TRANSORAL DIAGNOSTIC 10/14/2017 EGD Family History FAMILY HISTORY Problem Relation Age of Onset No Known Problems Mother other (does not know biological father) Father No Known Problems Sister Diabetes Maternal Grandmother Hypertension Maternal Grandmother Lipids Maternal Grandfather Hypertension Maternal Grandfather Heart Maternal Uncle No Known Problems Half-sister Breast Cancer No Family History Colon Cancer No Family History Uterine Cancer No Family History Ovarian cancer No Family History Patient Allergies ALLERGIES No Known Allergies Current Medications Current Outpatient Medications on File Prior to Visit Medication Sig aspirin, enteric coated (ECOTRIN LOW STRENGTH) 81 mg EC tablet Take 2 tablets by mouth once daily. busPIRone (BUSPAR) 15 mg tablet Take 1 tablet by mouth two times a day. VIT 1-SHSR-NTTTL-DHA ORAL Take by mouth. diphenhydramine HCl (UNISOM, DIPHENHYDRAMINE, ORAL) Take by mouth as needed. pyridoxine, vitamin B6, (VITAMIN B-6) 25 mg tablet Take 25 mg by mouth once daily. ondansetron (ZOFRAN) 4 mg tablet Take 1 tablet by mouth every 8 hours as needed for nausea/vomiting. sertraline (ZOLOFT) 50 mg tablet Take 1 tablet by mouth once daily. levothyroxine (SYNTHROID) 50 mcg tablet Take 1 tablet by mouth once daily. No current facility-administered medications on file prior to visit. Social History Social History Tobacco Use Smoking status: Former Current packs/day: 0.00 Average packs/day: 0.5 packs/day for 8.3 years (4.1 ttl pk-yrs) Types: Cigarettes Start date: 05/04/2012 Quit date: 08/20/2020 Years since quittin.0 Passive exposure: Never Smokeless tobacco: Never Vaping Use Vaping status: current everyday user Substances: Nicotine Substance Use Topics Alcohol use: Not Currently Comment: rarely Drug use: Not Currently Types: Marijuana Comment: last used marijuana 06/18/2024 EXAM: LMP 06/04/2024 (Exact Date) General Appearance: Well appearing, alert, in no acute distress, well-hydrated, well nourished.. Health Maintenance List DTaP,Tdap,Td Vaccine(7 - Td or Tdap) due on 02/07/2019 Covid-19 Vaccine( - season) due on 01/03/2024 Influenza Vaccine(Season Ended) due on 01/02/2025 RSV Vaccine(1 - Risk 1-dose series) due on 01/14/2025 Annual PCP Team Chronic Disease Visit due on 08/04/2025 Cervical Cancer Screening due on 11/09/2026 Hepatitis B Vaccine Completed HPV Vaccine Completed Hepatitis C Screening Completed HIV Screening Completed Data reviewed none ASSESSMENT/PLAN: 1. RUDOLPH (generalized anxiety disorder) - ICD9: 300.02, ICD10: F41.1 Increase Buspar to tid - BUSPIRONE 15 MG TABLET 2. Panic attack - ICD9: 300.01, ICD10: F41.0 Continue Zoloft 50 mg daily - BUSPIRONE 15 MG TABLET Follow up in 3 months I agree with the Chief Complaint, ROS, and Past Histories indep (more content not included)... [facility] 09-07-2024 Telephone encounter Note Patient reports she is completely out of her buspar. Requesting refill. Pended. Patient currently , 13 weeks, 4 days, sees PREFORMS LAMINATOR MYRIAM was 08/04/24 -Per note, OK to change to Buspar 15 mg bid and continue zoloft 50 mg daily, F/U in 3-6 months. Of note, pt made VV for tomorrow 09/08 to discuss a possible increase in buspar. The patient has been identified by name and date of : Yes Caregiver verified no other encounters exist for this prescription request: Yes Caregiver confirmed with patient/requestor that no other refills are due, in the near future, with this provider at this time: Yes The last office visit in the department: 05/13/2024 Does the patient have a future office visit with this provider/department: Yes 09/08/2024 Requested Prescriptions Pending Prescriptions Disp Refills busPIRone (BUSPAR) 15 mg tablet Sig: Take 1 tablet by mouth two times a day. Lis Link RN September 07, 2024 12:02 PM [facility] 08-31-2024 Progress note Formatting of t his note might be different from the original. Anatomy ultrasound reviewed. No abnormalities identified. Follow up as clinically indicated. Please place copy in ob chart. Emmanuel Hess MD [facility] 08-31-2024 Miscellaneous Notes Anatomy ultrasound reviewed. No abnormalities identified. Follow up as clinically indicated. Please place copy in ob chart. Emmanuel Hess MD documented in this encounter [facility] 08-31-2024 Progress note Formatting of t his note might be different from the original. LINNETTE-S: Janet Frank is a 24 year old female who presents at 12w4d with KELLEY:03/11/2025, by Last Menstrual Period for a routine visit. Denies headache, visual changes, chest pain, shortness of breath, vaginal bleeding, leakage of fluid, or dysuria. Feeling well, no complaints. NT US today O: See flow sheet Gen: No apparent distress Abd:nontender ASSESSMENT/PLAN: 1. Supervision of other high risk pregnancies, second trimester -Reviewed PN labs -Declines NIPT -Continue PNV -Anatomy US at 20 wk 2. 12 weeks gestation of 3. Obesity in -Pregravid BMI 37 -Growth US every 4 weeks starting at 32 weeks -NST weekly starting at 36 weeks 4. Rubella non-immune status, antepartum -Recommend vaccination PP. 5. Hx of preeclampsia, prior , currently -History of preeclampsia in prior . -Baseline labs completed. -ASA 162 mg PO once daily. 6. History of hemorrhage -Active management of 3rd stage 7. Hypothyroidism, unspecified type -Thyroid studies every 4 weeks. -Continue Synthroid 88mcg PO once daily. 8. Engages in nicotine containing substance vaping -Recommend cessation and reviewed risk to self and baby 9. Anxiety and depression -Continue Zoloft and Buspar 10. Trichomoniasis -Completed treatment, as did her partner -INDU at 16 weeks PTL precautions reviewed and when to call RTO in 4 weeks Bhargavi Navas APRN.CNM [facility] 08-31-2024 Miscellaneous Notes LINNETTE-S: Janet Frank is a 24 year old female who presents at 12w4d with KELLEY:03/11/2025, by Last Menstrual Period for a routine visit. Denies headache, visual changes, chest pain, shortness of breath, vaginal bleeding, leakage of fluid, or dysuria. Feeling well, no complaints. NT US today O: See flow sheet Gen: No apparent distress Abd:nontender ASSESSMENT/PLAN: 1. Supervision of other high risk pregnancies, second trimester -Reviewed PN labs -Declines NIPT -Continue PNV -Anatomy US at 20 wk 2. 12 weeks gestation of 3. Obesity in -Pregravid BMI 37 -Growth US every 4 weeks starting at 32 weeks -NST weekly starting at 36 weeks 4. Rubella non-immune status, antepartum -Recommend vaccination PP. 5. Hx of preeclampsia, prior , currently -History of preeclampsia in prior . -Baseline labs completed. -ASA 162 mg PO once daily. 6. History of hemorrhage -Active management of 3rd stage 7. Hypothyroidism, unspecified type -Thyroid studies every 4 weeks. -Continue Synthroid 88mcg PO once daily. 8. Engages in nicotine containing substance vaping -Recommend cessation and reviewed risk to self and baby 9. Anxiety and depression -Continue Zoloft and Buspar 10. Trichomoniasis -Completed treatment, as did her partner -INDU at 16 weeks PTL precautions reviewed and when to call RTO in 4 weeks Bhargavi Navas APRN.CNM documented in this encounter [facility] 08-31-2024 Note HNO ID: [id number] Author: BHARGAVI NAVAS APRN.CNM Service: ? Author Type: Glove Cleaner Type: Progress Notes Filed: 08/31/2024 12:39 Note Text: [facility] 08-31-2024 History of Presen t illness Narrative documented in this encounter [facility] 08-31-2024 Instructions Rehan Cervantes MA - 08/31/2024 11:50 AM EDT SEQUENTIAL SCREENINGS The [facility] offers sequential screenings for women who are interested in screenings for chromosomal abnormalities and certain defects during a . The sequential screen combines ultrasound and blood tests to determine the risk of chromosomal abnormalities, including Down's Syndrome (Trisomy 21) and Trisomy 18, as well as open neural tube defects including spina bifida. Ultrasound examination is performed between 11 weeks and 13 weeks gestational age. Blood tests are drawn after the ultrasound and again later in the between 15 and 21 weeks gestational age. Please let your physician know if you are interested in this testing. It will require an appointment with our husbandry technician. This is not an ultrasound performed by a physician in our office during a routine visit. SIGNS AND SYMPTOMS OF LABOR 1. Contractions every 10 minutes or more often 2. Clear, pink, or brownish fluid (water) leaking from vagina 3. Feeling that baby is pushing down, pressure 4. Low, dull backache 5. Cramps that feel like a period 6. Cramps with or without diarrhea If you notice any of the above symptoms, contact our office at [phone] and ask to speak with a nurse. After hours, you can call [facility] at [phone] OR call [facility] at [phone] and ask to have the doctor solar applications development engineer paged. If you consider this an emergency, dial 9-1-3 or go to your nearest emergency department. NEED HELP? Are you dealing with a violent or abusive relationship? Are you a victim of rape or sexual assult? Call [facility] ([place]) 24 hour Crisis Hotline: 139.888.8860 or 539-998-3116. MANUAL Your Guide to a Healthy manual is now on-line. Visit [email or web address] to download your free copy documented in this encounter [facility] 08-04-2024 History of Presen t illness Narrative Chief Complaint No chief complaint on file. HPI:This Team Access Model visit is a virtual encounter. It required patient-provider interaction for the medical decision making as documented below. Patient was offered a virtual/telemedicine appointment in lieu of an office visit due to recommendations to reduce patient exposure to COVID-19. Patient is aware of limitations of performing the visit without a face to face visit in the office setting and agrees. I have communicated my name and active licensure. The patient's identity and physical location were verified at the time of this visit. Either the patient or their legal escrow representative has been informed of the risks and benefits of -- and alternatives to -- treatment through a remote evaluation and consents to proceed with the evaluation remotely. Pt completing a virtual visit today to discuss reducing her Buspar, due to feeling funny. Reports she's been splitting the 30 mg pill in 1/2 twice daily. Pt reports that the 30 mg dose was making her feel dizzy, unwell. Since splitting the dosage she's not had this issue. Pt is currently 8 weeks . She's currently being treated for anxiety and depression, [facility]. Pt on current regimen of Buspar 30 mg 1 tab po bid and Zoloft 50 mg once daily. Doing well on the zoloft. Also stopped the Linzess due to ; recommended to use Miralax prn for her IBS-constipation Past medical history, appointments, medications, allergies reviewed. Previous Medical History PAST MEDICAL HISTORY Diagnosis Date Adenomyosis of the uterus Anxiety and depression [facility], Dr. Jimenez Chronic hypertension with exacerbation during in third trimester Pt reported Excessive or frequent menstruation Heavy periods, resolved with OCP GERD (gastroesophageal reflux disease) History of blood transfusion Hypothyroid Obesity, Class II, BMI 35-39.9 Previous Surgical History PAST SURGICAL HISTORY Procedure Laterality Date COLONOSCOPY FLX DX W/COLLJ SPEC WHEN PFRMD 10/14/2017 Colonoscopy ESOPHAGOGASTRODUODENOSCOPY TRANSORAL DIAGNOSTIC 10/14/2017 EGD Family History FAMILY HISTORY Problem Relation Age of Onset No Known Problems Mother other (does not know biological father) Father No Known Problems Sister Diabetes Maternal Grandmother Hypertension Maternal Grandmother Lipids Maternal Grandfather Hypertension Maternal Grandfather Heart Maternal Uncle No Known Problems Half-sister Breast Cancer No Family History Colon Cancer No Family History Uterine Cancer No Family History Ovarian cancer No Family History Patient Allergies ALLERGIES No Known Allergies Current Medications Current Outpatient Medications on File Prior to Visit Medication Sig metroNIDAZOLE (FLAGYL) 500 mg tablet Take 1 tablet by mouth two times a day for 7 days. metroNIDAZOLE (FLAGYL) 500 mg tablet Take 1 tablet by mouth two times a day for 7 days. aspirin, enteric coated (ECOTRIN LOW STRENGTH) 81 mg EC tablet Take 1 tablet by mouth once daily. VIT 2-VIFL-QMASY-DHA ORAL Take by mouth. diphenhydramine HCl (UNISOM, DIPHENHYDRAMINE, ORAL) Take by mouth as needed. pyridoxine, vitamin B6, (VITAMIN B-6) 25 mg tablet Take 25 mg by mouth once daily. ondansetron (ZOFRAN) 4 mg tablet Take 1 tablet by mouth every 8 hours as needed for nausea/vomiting. busPIRone 30 mg tablet Take 1 tablet by mouth two times a day. sertraline (ZOLOFT) 50 mg tablet Take 1 tablet by mouth once daily. levothyroxine (SYNTHROID) 50 mcg tablet Take 1 tablet by mouth once daily. esomeprazole (NEXIUM) 40 mg capsule Take 1 capsule by mouth twice daily. 1/2 hr before meal. No current facility-administered medications on file prior to visit. Social History Social History Tobacco Use Smoking status: Former Current packs/day: 0.00 Average packs/day: 0.5 packs/day for 8.3 years (4.1 ttl pk-yrs) Types: Cigarettes Start date: 05/04/2012 Quit date: 08/20/2020 Years since quittin.9 Passive exposure: Never Smokeless tobacco: Never Vaping Use Vaping status: current everyday user Substances: Nicotine Substance Use Topics Alcohol use: Not Currently Comment: rarely Drug use: Not Currently Types: Marijuana Comment: last used marijuana 06/18/2024 EXAM: LMP 06/04/2024 (Exact Date) General Appearance: Well appearing, alert, in no acute distress, well-hydrated, well nourished.. Health Maintenance List DTaP,Tdap,Td Vaccine(7 - Td or Tdap) due on 02/07/2019 Influenza Vaccine(1) due on 01/03/2024 Covid-19 Vaccine(2 - season) due on 01/03/2024 RSV Vaccine(1 - Risk 1-dose series) due on 01/14/2025 Depression Screening due on 01/21/2025 Anxiety Screening due on 01/21/2025 Annual PCP Team Chronic Disease Visit due on 06/15/2025 Cervical Cancer Screening due on 11/09/2026 Hepatitis B Vaccine Completed HPV Vaccine Completed Hepatitis C Screening Completed HIV Screening Completed Data reviewed None ASSESSMENT/PLAN: 1. RUDOLPH (generalized anxiety disorder) - ICD9: 300.02, ICD10: F41.1 (primary diagnosis) OK to change to Buspar 15 mg bid Continue zoloft 50 mg daily 2. Panic attack - ICD9: 300.01, ICD10: F41.0 3. Chronic constipation - ICD9: 564.00, ICD10: K59.09 Discussed using Miralax rather than Linzess Follow up in 3-6 months Genie Jackson MD documented in this encounter [facility] 08-04-2024 Note HNO ID: [id number] Author: GENIE JACKSON MD Service: ? Author Type: Physician Type: Progress Notes Filed: 08/04/2024 11:27 Note Text: Chief Complaint No chief complaint on file. HPI:This Team Access Model visit is a virtual encounter. It required patient-provider interaction for the medical decision making as documented below. Patient was offered a virtual/telemedicine appointment in lieu of an office visit due to recommendations to reduce patient exposure to COVID-19. Patient is aware of limitations of performing the visit without a face to face visit in the office setting and agrees. I have communicated my name and active licensure. The patient's identity and physical location were verified at the time of this visit. Either the patient or their legal escrow representative has been informed of the risks and benefits of -- and alternatives to -- treatment through a remote evaluation and consents to proceed with the evaluation remotely. Pt completing a virtual visit today to discuss reducing her Buspar, due to feeling funny. Reports she's been splitting the 30 mg pill in 1/2 twice daily. Pt reports that the 30 mg dose was making her feel dizzy, unwell. Since splitting the dosage she's not had this issue. Pt is currently 8 weeks . She's currently being treated for anxiety and depression, [facility]. Pt on current regimen of Buspar 30 mg 1 tab po bid and Zoloft 50 mg once daily. Doing well on the zoloft. Also stopped the Linzess due to ; recommended to use Miralax prn for her IBS-constipation Past medical history, appointments, medications, allergies reviewed. Previous Medical History PAST MEDICAL HISTORY Diagnosis Date Adenomyosis of the uterus Anxiety and depression [facility], Dr. Jimenez Chronic hypertension with exacerbation during in third trimester Pt reported Excessive or frequent menstruation Heavy periods, resolved with OCP GERD (gastroesophageal reflux disease) History of blood transfusion Hypothyroid Obesity, Class II, BMI 35-39.9 Previous Surgical History PAST SURGICAL HISTORY Procedure Laterality Date COLONOSCOPY FLX DX W/COLLJ SPEC WHEN PFRMD 10/14/2017 Colonoscopy ESOPHAGOGASTRODUODENOSCOPY TRANSORAL DIAGNOSTIC 10/14/2017 EGD Family History FAMILY HISTORY Problem Relation Age of Onset No Known Problems Mother other (does not know biological father) Father No Known Problems Sister Diabetes Maternal Grandmother Hypertension Maternal Grandmother Lipids Maternal Grandfather Hypertension Maternal Grandfather Heart Maternal Uncle No Known Problems Half-sister Breast Cancer No Family History Colon Cancer No Family History Uterine Cancer No Family History Ovarian cancer No Family History Patient Allergies ALLERGIES No Known Allergies Current Medications Current Outpatient Medications on File Prior to Visit Medication Sig metroNIDAZOLE (FLAGYL) 500 mg tablet Take 1 tablet by mouth two times a day for 7 days. metroNIDAZOLE (FLAGYL) 500 mg tablet Take 1 tablet by mouth two times a day for 7 days. aspirin, enteric coated (ECOTRIN LOW STRENGTH) 81 mg EC tablet Take 1 tablet by mouth once daily. VIT 3-OVNQ-LOHOX-DHA ORAL Take by mouth. diphenhydramine HCl (UNISOM, DIPHENHYDRAMINE, ORAL) Take by mouth as needed. pyridoxine, vitamin B6, (VITAMIN B-6) 25 mg tablet Take 25 mg by mouth once daily. ondansetron (ZOFRAN) 4 mg tablet Take 1 tablet by mouth every 8 hours as needed for nausea/vomiting. busPIRone 30 mg tablet Take 1 tablet by mouth two times a day. sertraline (ZOLOFT) 50 mg tablet Take 1 tablet by mouth once daily. levothyroxine (SYNTHROID) 50 mcg tablet Take 1 tablet by mouth once daily. esomeprazole (NEXIUM) 40 mg capsule Take 1 capsule by mouth twice daily. 1/2 hr before meal. No current facility-administered medications on file prior to visit. Social History Social History Tobacco Use Smoking status: Former Current packs/day: 0.00 Average packs/day: 0.5 packs/day for 8.3 years (4.1 ttl pk-yrs) Types: Cigarettes Start date: 05/04/2012 Quit date: 08/20/2020 Years since quittin.9 Passive exposure: Never Smokeless tobacco: Never Vaping Use Vaping status: current everyday user Substances: Nicotine Substance Use Topics Alcohol use: Not Currently Comment: rarely Drug use: Not Currently Types: Marijuana Comment: last used marijuana 06/18/2024 EXAM: LMP 06/04/2024 (Exact Date) General Appearance: Well appearing, alert, in no acute distress, well-hydrated, well nourished.. Health Maintenance List DTaP,Tdap,Td Vaccine(7 - Td or Tdap) due on 02/07/2019 Influenza Vaccine(1) due on 01/03/2024 Covid-19 Vaccine(2 - 2023- season) due on 01/03/2024 RSV Vaccine(1 - Risk 1-dose series) due on 01/14/2025 Depression Screening due on 01/21/2025 Anxiety Screening due on (more content not included)... [facility] 08-02-2024 Telephone encounter Note Rx sent. Elayne Severino APRN.CNP [facility] 08-02-2024 Miscellaneous Notes Rx sent. Elayne Severino APRN.CNP Patient notified and is requesting EPT. Expedited Partner Therapy (EPT) EPT is being prescribed today to the patient s partner(s) as the following conditions have been met: The intended recipient is a sexual partner of Janet Frank. Janet Frank has been diagnosed with trichomoniasis. Janet Frank reports that sexual partner is unable or unlikely to be evaluated or treated by a health professional. EPT is being prescribed for no more than two sexual partners. Janet Frank's sexual partner(s) have been contacted: Yes Sexual partner(s) have been informed that he or she may have been exposed to trichomoniasis. Sexual partner(s) have been encouraged to seek treatment and testing from a healthcare professional. Treatment options available have been explained. Please file pended EPT order. Asia Mobley RN Flagyl sent. If STDs are left untreated there is small chance that is can lead to miscarriage. Does she need partner treatment? Elayne Severino APRN.CNP 8w3d Patient viewed +Trich on Mychart. Asking if this could harm her baby. Please review result and advise. Steffanie Lozada RN documented in this encounter [facility] 08-02-2024 Telephone encounter Note Patient notified and is requesting EPT. Expedited Partner Therapy (EPT) EPT is being prescribed today to the patient s partner(s) as the following conditions have been met: The intended recipient is a sexual partner of Janet Frank. Janet Frank has been diagnosed with trichomoniasis. Janet Frank reports that sexual partner is unable or unlikely to be evaluated or treated by a health professional. EPT is being prescribed for no more than two sexual partners. Janet Frank's sexual partner(s) have been contacted: Yes Sexual partner(s) have been informed that he or she may have been exposed to trichomoniasis. Sexual partner(s) have been encouraged to seek treatment and testing from a healthcare professional. Treatment options available have been explained. Please file pended EPT order. Asia Mobley RN [facility] 08-02-2024 Instructions Asia Mobley RN - 08/02/2024 1:08 PM EDT Expedited Partner Treatment Trichomonas: Guide for Partners who Receive Metronidazole Why am I getting this prescription or medication? Trichomonas is a sexually transmitted infection (STI). Although some patients with trichomonas experience symptoms, many do not have any signs or symptoms. Symptoms of trichomonas can include: pain or burning when you pee, fluid/discharge from the vagina, penis, or rectum that smells or looks strange, or pain with sex. You can give trichomonas to others you have sex with; so, it is important to get treatment. Untreated trichomonas can lead to worsening symptoms and a higher chance of getting HIV. It is important to complete the entire treatment for this infection. What is the treatment for trichomonas? The prescription you are given today is for an oral antibiotic called metronidazole. Do NOT take this antibiotic if you have a severe allergy to metronidazole. This antibiotic can be taken with food to help prevent an upset stomach. Side effects can include nausea, vomiting, abdominal pain, diarrhea, metallic taste, and headache. If you experience any symptoms of an allergic reaction such as trouble breathing, chest tightness, closing of the throat, swelling of the lips or tongue, and itchy bumps on your skin, seek medical attention right away. What else should I do? Do not have sex for at least 7 days after you AND your sexual partner have been treated. See a healthcare provider for additional testing for other STIs, including HIV and syphilis. It is important to be tested for other STIs because this medication will only treat trichomonas. Using condoms correctly and consistently during sex is the best way to prevent other STIs. documented in this encounter [facility] 08-02-2024 Telephone encounter Note 1st risk assessment form submitted 08/02/2024. Steffanie Neely RN [facility] 08-02-2024 Miscellaneous Notes 1st risk assessment form submitted 08/02/2024. Steffanie Neely RN documented in this encounter [facility] 08-02-2024 Telephone encounter Note Flagyl sent. If STDs are left untreated there is small chance that is can lead to miscarriage. Does she need partner treatment? Elayne Severino APRN.SENIOR ELECTRONICS ENGINEER [facility] 08-02-2024 Telephone encounter Note 8w3d Patient viewed +Trich on Mychart. Asking if this could harm her baby. Please review result and advise. Steffanie Lozada, VENKATESH [facility] 08-01-2024 Instructions Tammy Duke LPN - 08/01/2024 8:13 AM EDT Please select the following link to access the [facility] Your Guide to a Healthy . [email or web address] documented in this encounter [facility] 07-25-2024 Note HNO ID: [id number] Author: ELAYNE SEVERINO APRN.SENIOR ELECTRONICS ENGINEER Service: ? Author Type: Nurse Practitioner Type: Progress Notes Filed: 08/01/2024 10:06 Note Text: Patient declined hand alterations tailor. *History of preeclampsia with prior *History of hemorrhage. Received blood transfusion *Pt has a history of anxiety/depression diagnosed as a teenager. Recently changed from Prozac to Zoloft by Dr. Jackson. On BuSpar as well. Denies any history of depression. States she has had suicidal thoughts in the past but none since age 15. Had 2 psychiatric hospitalizations one at age 13 in [place] and the other at [facility] at age 14[address] Raymundo at the counseling center in the past but no longer in counseling. Discussed increased risks of depression during and and importance of reporting the development or worsening of symptoms should they occur. *History of hypothyroidism treated by Dr. Juan Clifton. Last thyroid labs done November 30, 2023. patient was made aware not to take her vitamin and thyroid medication at the same time * patient vapes nicotine. Advised patient to quit. Discussed risks of nicotine use during . *Patient considering genetic carrier screening testing and aneuploidy screening. Contact information given to check for insurance coverage to patient. *Obesity in INITIAL OB ASSESSMENT HPI: Janet is a 24 year old /Multicultural here to establish Obstetrical Care. Patient's last menstrual period was 06/04/2024 (exact date). from OB Dating Form. was planned Complaints: No OB History Gravida2 Para1 Term1 Preterm0 AB0 Living1 SAB0 IAB0 Ectopic0 Multiple0 Live Births1 Comment: 1 son, vaginal on 03/27/17. Had Preeclampsia was induced at 39 weeks. had BM in her. Also had to receive transfusion after due to CBC of 3. Previous history: Prior : never History of 4th degree laceration: No History of shoulder dystocia: No History of Hypertensive disorders including pre-eclampsia or gestational hypertension: Yes History of gestational diabetes: No Patient's Risk Screening for delivery: Have you had a prior manzo between 20w and 36w6d? No How many pregnancies have you had before? 1 Did you have a previous baby with a GBS Infection? No Please select all that apply for any prior : N/A MEDICAL/PSYCHOSOCIAL HISTORY: History of hemorrhage or bleeding concerns: Yes pp hemorrhage Thyroid Disease: Yes History of chronic hypertension: No History of pre-existing diabetes: No No results found for: ABORHD No weight on file for this encounter. Last Pap: 11/19/2023 History of abnormal pap: No Prior treatment for cervical dysplasia: none. Last HPV: History of STDs: None Partner History of STDs: None Did you have a partner with Herpes? No Tobacco use: No E-Cigarette/Vaping Use: Yes Caffeine use: No Drug use: No Alcohol use: No Multivitamin with Folic acid: Yes Would refuse blood transfusion if medically necessary: No Social Needs: How often does this describe you? I don't have enough money to pay my bills: Never Within the past 12 months, have you worried that your food would run out before you had money to buy more? Never In the past 12 months, has lack of reliable transportation kept you from going to medical appointments or work, or from getting things needed for daily living? Never In the past 12 months, have you had any concerns about having a place to live, or about the condition or quality of your housing? Never Would you like more information on any of the following (please check all that apply)? Not interested Social History: Do you have any history of depression, anxiety, PTSD, or other mood problems? Yes switched from prozac to Zoloft she is feeling better. Depression/anxiety Do you have a history of abuse or trauma that may impact your experience? No Are you currently employed? No Depression/Anxiety Screening: admits to symptoms of depression. OB Depression and Anxiety Screening- This Encounter (since 07/24/2024) Over the past 2 weeks have you felt down, depressed, or hopeless? Positive - Further Testing Indicated Over the past two weeks, have you felt little interest or pleasure in doing things?? Negative I have been able to laugh and see the funny side of things. As much as I always could I have looked forward with enjoyment to things. As much as I ever did I have blamed myself unnecessarily when things went wrong. Yes, most of the time I have been anxious or worried for no good reason. No, not at all I have felt scared or panicky for no good reason. No, not at all Things have been getting on top of me. No, I have been coping as well as ever I have been so unhappy that I have had difficulty sleeping. Not at all I h (more content not included)... [facility] 07-25-2024 History of Presen t illness Narrative Images from the original note were not included. Patient declined hand alterations tailor. *History of preeclampsia with prior *History of hemorrhage. Received blood transfusion *Pt has a history of anxiety/depression diagnosed as a teenager. Recently changed from Prozac to Zoloft by Dr. Jackson. On BuSpar as well. Denies any history of depression. States she has had suicidal thoughts in the past but none since age 15. Had 2 psychiatric hospitalizations one at age 13 in [place] and the other at [facility] at age 14[address] Raymundo at the counseling center in the past but no longer in counseling. Discussed increased risks of depression during and and importance of reporting the development or worsening of symptoms should they occur. *History of hypothyroidism treated by Dr. Juan Clifton. Last thyroid labs done November 30, 2023. patient was made aware not to take her vitamin and thyroid medication at the same time * patient vapes nicotine. Advised patient to quit. Discussed risks of nicotine use during . *Patient considering genetic carrier screening testing and aneuploidy screening. Contact information given to check for insurance coverage to patient. *Obesity in INITIAL OB ASSESSMENT HPI: Janet is a 24 year old /Multicultural here to establish Obstetrical Care. Patient's last menstrual period was 06/04/2024 (exact date). from OB Dating Form. was planned Complaints: No OB History Gravida2 Para1 Term1 Preterm0 AB0 Living1 SAB0 IAB0 Ectopic0 Multiple0 Live Births1 Comment: 1 son, vaginal on 03/27/17. Had Preeclampsia was induced at 39 weeks. Infant had BM in her. Also had to receive transfusion after due to CBC of 3. Previous history: Prior : never History of 4th degree laceration: No History of shoulder dystocia: No History of Hypertensive disorders including pre-eclampsia or gestational hypertension: Yes History of gestational diabetes: No Patient's Risk Screening for delivery: Have you had a prior manzo between 20w and 36w6d? No How many pregnancies have you had before? 1 Did you have a previous baby with a GBS Infection? No Please select all that apply for any prior : N/A MEDICAL/PSYCHOSOCIAL HISTORY: History of hemorrhage or bleeding concerns: Yes pp hemorrhage Thyroid Disease: Yes History of chronic hypertension: No History of pre-existing diabetes: No No results found for: ABORHD No weight on file for this encounter. Last Pap: 11/19/2023 History of abnormal pap: No Prior treatment for cervical dysplasia: none. Last HPV: History of STDs: None Partner History of STDs: None Did you have a partner with Herpes? No Tobacco use: No E-Cigarette/Vaping Use: Yes Caffeine use: No Drug use: No Alcohol use: No Multivitamin with Folic acid: Yes Would refuse blood transfusion if medically necessary: No Social Needs: How often does this describe you? I don't have enough money to pay my bills: Never Within the past 12 months, have you worried that your food would run out before you had money to buy more? Never In the past 12 months, has lack of reliable transportation kept you from going to medical appointments or work, or from getting things needed for daily living? Never In the past 12 months, have you had any concerns about having a place to live, or about the condition or quality of your housing? Never Would you like more information on any of the following (please check all that apply)? Not interested Social History: Do you have any history of depression, anxiety, PTSD, or other mood problems? Yes switched from prozac to Zoloft she is feeling better. Depression/anxiety Do you have a history of abuse or trauma that may impact your experience? No Are you currently employed? No Depression/Anxiety Screening: admits to symptoms of depression. OB Depression and Anxiety Screening- This Encounter (since 07/24/2024) Over the past 2 weeks have you felt down, depressed, or hopeless? Positive - Further Testing Indicated Over the past two weeks, have you felt little interest or pleasure in doing things? Negative I have been able to laugh and see the funny side of things. As much as I always could I have looked forward with enjoyment to things. As much as I ever did I have blamed myself unnecessarily when things went wrong. Yes, most of the time I have been anxious or worried for no good reason. No, not at all I have felt scared or panicky for no good reason. No, not at all Things have been getting on top of me. No, I have been coping as well as ever I have been so unhappy that I have had difficulty sleeping. Not at all I have felt sad or miserable. Not very often I have been so unhappy that I have been crying. No, never The thought of harming myself has occurred to me. Never [place] Depression Scale Total 4 Feeling nervous, anxious or on edge 0-Not at all Not being able to stop or control worrying 0-Not al all Anxiety Pre-Screening Total (If >/= 3 additional questions will be reviewed) 0 Genetic Screening: Partner present: No Patient verbalized knowledge of partner family health history: No Do you or your partner have any personal or family history of defects not previously discussed: No Do you have history of a complicated by anomaly, genetic condition, or demise: No Preeclampsia Risk Screening: Screening for prevention of preeclampsia:hx of preeclampsia in prior High risk factors: Moderate risk ractors: Obesity (body mass index greater than 30) OB Risk Screening: Completed, no positive findings documented. 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 Jimenez Excessive or frequent menstruation Heavy periods, resolved with OCP GERD (gastroesophageal reflux disease) Hypothyroid Obesity, Class II, BMI 35-39.9 PAST SURGICAL HISTORY Procedure Laterality Date COLONOSCOPY FLX DX W/COLLJ SPEC WHEN PFRMD 10/14/2017 Colonoscopy ESOPHAGOGASTRODUODENOSCOPY TRANSORAL DIAGNOSTIC 10/14/2017 EGD Current Outpatient Medications Medication Sig Dispense Refill VIT [id number] ORAL Take by mouth. diphenhydramine HCl (UNISOM, DIPHENHYDRAMINE, ORAL) Take by mouth as needed. pyridoxine, vitamin B6, (VITAMIN B-6) 25 mg tablet Take 25 mg by mouth once daily. ondansetron (ZOFRAN) 4 mg tablet Take 1 tablet by mouth every 8 hours as needed for nausea/vomiting. 60 tablet 0 tiZANidine (ZANAFLEX) 4 mg tablet Take 1 tablet by mouth every 8 hours as needed (muscle spasms). (Patient not taking: Reported on 07/20/2024) 30 tablet 1 busPIRone 30 mg tablet Take 1 tablet by mouth two times a day. 60 tablet 5 sertraline (ZOLOFT) 50 mg tablet Take 1 tablet by mouth once daily. 30 tablet 5 levothyroxine (SYNTHROID) 50 mcg tablet Take 1 tablet by mouth once daily. 30 tablet 11 LINZESS 145 mcg capsule Take 1 capsule by mouth once daily. (Patient not taking: Reported on 07/25/2024) 90 capsule 3 esomeprazole (NEXIUM) 40 mg capsule Take 1 capsule by mouth twice daily. 1/2 hr before meal. 60 capsule 1 No current facility-administered medications for this visit. Allergies As of Date: 08/01/2024 (No Known Allergies) Fully Assessed 05/13/2024 Does patient have penicillin allergy: No REVIEW OF SYSTEMS: GENERAL: Negative for: Fever or Chills HEENT: Negative for: Headache, Impaired Vision, Ringing in Ears, Nosebleeds NECK: Negative for: Swelling, Pain, Stiffness RESPIRATORY: Negative for: Cough, Shortness of breath, Wheezing GASTROINTESTINAL: Positive for: Constipation and Positive for: Nausea and Vomiting MUSCULOSKELETAL: Negative for: Muscle or joint pain, stiffness, Joint swelling NEUROLOGIC/PSYCHIATRIC: Negative for: Weakness, Paralysis, Numbness, Tingling, Tremor, Anxiety, Depression, Memory loss SKIN: Negative for: Rash, Itching GENITOURINARY: Negative for: vaginal itching, vaginal discharge, hematuria or dysuria SENSITIVE EXAM: The sensitive examination was discussed with the Patient or Patient's Authorized Tube Station Attendant. As applicable, any other physician, advance practice provider, medical student, or other health professional student that will be observing or involved in the sensitive examination for educational or training purposes was discussed with the Patient or Authorized Tube Station Attendant. The Patient or Authorized Tube Station Attendant has agreed to proceed with the sensitive examination. (Sensitive examination includes inspection and/or palpation of the breasts, pelvis, prostate and anorectal regions). PHYSICAL EXAM: LMP 06/04/2024 GENERAL: pleasant in no apparent distress DERMATOLOGY: Normal, without lesions, non-icteric, and non-hirsute NECK: Supple, full range of motion, no adenopathy, and thyroid normal CHEST: Normal inspiratory effort BREAST: soft, non-tender, symmetric, no dominant mass, normal nipple-areolar complex, no lymphadenopathy, and no nipple discharge ABDOMEN: soft, non-tender, and no masses NEURO: alert and oriented x3,exam grossly non-focal PELVIS: External genitalia normal without lesions. Perineal body intact. No vaginal or cervical lesions. Cervix closed. No adnexal masses or tenderness. Clinical Pelvimetry: Pelvimetry clinically assessed as adequate Limited OB ultrasound exam: single intrauterine , positive cardiac activity, and POCUS performed. +cardiac activity, CRL consistent with LMP. Elayne Severino APRN.SENIOR ELECTRONICS ENGINEER [employer] Janet Frank was given the 4P's screening tool. Janet answered as follows: OB Opioid Screening - Last Recorded (since 10/29/2023) Did any of your parents have a problem with alcohol or other drug use? Yes father-drug use Does your partner have a problem with alcohol or other drug use? No In the past, have you had difficulties in your life because of alcohol or other drugs, including prescription medications? No In the past month have you drunk any alcohol or used other drugs? No Are you taking medication for pain during the either prescribed or not? No Based on the screen and further questions, she is considered at Low risk due to:Low level of use stopped prior to or immediately upon known . Positive reinforcement of current behavior. Plan to rescreen early third trimester. Elayne Severino APRN.SENIOR ELECTRONICS ENGINEER ASSESSMENT: 24 year old at 7w2d wks gestational age PLAN: 1) Patient oriented to practice. Patient given new OB orientation folder. Discussed nutrition, folic acid supplementation, dietary guidelines, exercise, smoking, alcohol, caffeine, and drug use. Discussed gestational weight gain guidelines. Discussed routine OB labs including STD/HIV. Discussed how to access Your guide to a health and the Transition Advisor. Patient has penicillin allergy, plan for allergy testing. Reviewed midwifery and garbage man services that are available. 2) Screening: Hemoglobin A1C: ordered Baby Aspirin: The patient has been counseled about the potential benefits of low dose aspirin in and our recommendation that this be offered to all patients, regardless of whether they meet the high risk criteria specified above. She Accepts Aneuploidy Screening: Discussed aneuploidy screening, nuchal translucency/first trimester early anatomy ultrasound and NIPT. The risks/benefits and limitations of NIPT/aneuploidy screening were reviewed including the potential for false negative and false positive results. The availability of genetic counseling was reviewed. Information on aneuploidy screening was provided. The patient chooses to proceed with First trimester early anatomy ultrasound (12-13w6d) Myriad Carrier Screening: Discussed myriad carrier screening. We discussed the availability of professional-society guided carrier screening and reviewed the conditions screened and limitations of screening. The availability of genetic counseling was reviewed. Information on carrier screening was provided. The patient Declines 3) Patient offered option of Virtual Visits. Patient unsure. May consider in future. 4) Obesity (BMI >30), will order early glucose screen or Hemoglobin A1C. Thyroid Disease: TSH ordered Current tobacco use: The patient has been counseled about the risks of tobacco use during and cessation has been recommended. Patient plans to quit or decrease smoking without outside assistance. 10 minutes were spent discussing the risks of tobacco use and providing cessation resources. 5) Hx of preeclampsia and PPH Follow up in 4 weeks or sooner prn. Elayne Severino APRN.CIERRA documented in this encounter [facility] 07-25-2024 Telephone encounter Note Left message for patient to return phone call to complete nurse intake questions for her upcoming appointment. Patient has an appointment with Elayne Severino for NOB appointment. [facility] 07-25-2024 Miscellaneous Notes Left message for patient to return phone call to complete nurse intake questions for her upcoming appointment. Patient has an appointment with Elayne Severino for NOB appointment. documented in this encounter [facility] 07-22-2024 Telephone encounter Note Pt was scheduled today with Dr Jackson for a VV to discuss medication options. [facility] 07-22-2024 Miscellaneous Notes Pt was scheduled today with Dr Jackson for a VV to discuss medication options. Needs office visit to discuss options Genie Jackson MD Patient called to asking if she should continue taking the Linzess as she is 7 weeks . OB suggested that there maybe something else that she can try that is much safer. documented in this encounter [facility] 07-22-2024 Telephone encounter Note Needs office visit to discuss options Genie Jackson MD [facility] 07-22-2024 Telephone encounter Note Patient called to asking if she should continue taking the Linzess as she is 7 weeks . OB suggested that there maybe something else that she can try that is much safer. [facility] 07-20-2024 Instructions Roxana Fry APRN.CNM - 07/20/2024 1:22 PM EDT MORNING SICKNESS IN by Bev Horowitz M.D. for [email or web address] As you may already know, morning sickness can often be more appropriately called evening sickness or baulc-oudngo-jl-the-day sickness. While there are the bautista few, most women (50-90%) experience some degree of nausea, some have vomiting, and a few develop a severe form of vomiting during called hyperemesis gravidarum. What causes the nausea and vomiting of ? We can't explain why some people feel fine and others are green for months. Even the same woman may feel vastly different in each . There is some relationship between nausea and the level of the hormone hCG. In twin pregnancies, and in other situations where the hCG is greater than expected, nausea and vomiting tend to be worse. In a destined for miscarriage, hCG levels tend to be low, and nausea is often less severe. This being said, a lack of nausea doesn't guarantee that the is destined for miscarriage. The fact that nausea and vomiting are often signs of a healthy can offer a silver lining in the dark cloud of miserable nausea. How long will the nausea last? Fortunately, for most women, nausea and vomiting are a first trimester event, peaking at week 9-10 and waning by week 14-16. When you are feeling bad the weeks can go by slowly but most moms do feel tremendously better by the middle of the . Whether morning sickness is a brief experience or lasts through most of the , there are treatments that can make the weeks or months more tolerable. What can you do about it? Diet: See what works for you. Try eating bland dry foods, and avoid fatty or spicy foods. It is okay to eat a less than perfectly balanced diet in the first trimester. Have your liquids separately from dry foods. Try sports drinks, water, clear juices, Edward-aid, or non-caffeinated tea. Avoid carbonated beverages that fill up your stomach. Try eating lots of little meals. If you tend to feel sick when you first wake up, leave crackers next to the bed for a quick snack before rising. Keeping healthy snacks with you all day to nibble when you feel queasy can sometimes even prevent nausea from starting. vitamins and nausea: Pre-samantha vitamins can sometimes worsen nausea in . While folate is necessary, especially early in the , it comes as a smaller pill that many people find more tolerable than the complete vitamin pill. Ask your practitioner if it is okay to temporarily replace vitamins and iron with just a folate pill if you find a significant worsening in the level of your nausea from the vitamins. Alternative therapies: Acupressure may be used to treat nausea in , and is not known to have any risks for the fetus. Wristbands (marketed for seasickness) that put pressure on an acupressure point at the wrist are often available at drugstores or travel stores. Rustam root is used for nausea in many traditional cultures. Some women take fresh grated rustam or rustam tablets. It is possible that the pill form contains other ingredients or contaminants, so you may want to try fresh rustam first. Medications: Emetrol is the only nausea medication approved for use in . It is available over the counter and is soothing to the stomach. A prescription medication called Bendectin was available in the 1970s-1979's and was shown to be safe in , but the company stopped marketing it in the [place] due to the costs of liability coverage. Bendectin contained 10 milligrams of vitamin B6 and 10 milligrams of Doxylamine. Two tablets were given at bedtime and a total of up to 4 tablets could be used in a 24-hour period. Interestingly, Unisom , which contains a higher dose (25 mg.) of the same medication, Doxylamine, is currently marketed as an tckg-yvo-iulndbt sleeping pill. Ask your practitioner if creating a vitamin B6/Doxylamine combination with ieyt-ebg-qrnywev medications would be safe for you. Prescription medications like Compazine and Phenergan can be used if the benefits outweigh possible risks, but these have not been clearly shown to be safe in . Zofran , an expensive anti-nausea medication often used to treat nausea from chemotherapy, can also be used. Can I throw up so much it harms the baby? The act of vomiting cannot hurt your fetus, which is protected inside the uterus. If you get dehydrated or develop a metabolic imbalance, this can be unhealthy. As long as you can keep down liquids, you and your baby will generally do all right. Eat when you feel able. If you are unable to keep anything down, or if you notice potential signs of dehydration such as lightheadedness, or concentrated and/or infrequent urination, call your practitioner. Some women need brief hospital admission for intravenous fluids and anti-nausea medications if their condition becomes severe. This severe form of nausea and vomiting is called Hyperemesis Gravidarum. As with many symptoms of , remind yourself that this, too, shall pass, and you'll have a wonderful baby to show for it! TREATMENT OPTIONS, SHORT VERSION: Frequent small meals Hydrate throughout day [employer] wrist pressure point applicators Rustam root (powdered, in capsules) 250mg four times a day Vitamin B6 25 mg tablet three times a day Also may be taken with half a tablet of Unisom three times a day (Doxylamine 12.5 mg) If severe (weight loss, dehydration), call us and come in for IV hydration and possible medication in the form of injections. Prescription medications such as Phenergan, Compazine, Reglan documented in this encounter [facility] 07-20-2024 Note HNO ID: [id number] Author: ROXANA FRY APRN.CNM Service: ? Author Type: Glove Cleaner Type: Progress Notes Filed: 07/20/2024 13:31 Note Text: Janet Frank is a 24 year old female who presents for problem visit missed menses LMP 06/04/2024, reported nausea/vomiting. Patient is 6w4d. Patient stated for the past 2 weeks she has had nausea and emesis daily. Taking vitamin B6 and Unisom for the past week without relief. Stated has emesis 3-4 times a day and has not been able to eat for the past 2 days. Able to sip and hold gatorade down. Not able to drink water. NOB scheduled for next week. OB History Gravida1 Para1 Term1 Preterm0 AB0 Living1 SAB0 IAB0 Ectopic0 Multiple0 Live Births1 Comment: 1 son, vaginal on 03/27/17. Had Preeclampsia was induced at 39 weeks. Infant had BM in her. Also had to receive transfusion after due to CBC of 3. Surface Supply Breathing Apparatus History LMP: 05/13/2024 (Exact Date), Having periods Age at Menarche: Age at First : Age at Menopause: Surface [employer] Breathing Apparatus History Comments: Sexual Activity: Yes; Male Contraception: Not used PAST MEDICAL HISTORY Diagnosis Date Adenomyosis of the uterus Anxiety and depression [facility], Dr. Jimenez Excessive or frequent menstruation Heavy periods, resolved with OCP GERD (gastroesophageal reflux disease) Hypothyroid Obesity, Class II, BMI 35-39.9 PAST SURGICAL HISTORY Procedure Laterality Date COLONOSCOPY FLX DX W/COLLJ SPEC WHEN PFRMD 10/14/2017 Colonoscopy ESOPHAGOGASTRODUODENOSCOPY TRANSORAL DIAGNOSTIC 10/14/2017 EGD FAMILY HISTORY Problem Relation Age of Onset other (does not know biological father) Father Diabetes Maternal Grandmother Hypertension Maternal Grandmother Lipids Maternal Grandfather Hypertension Maternal Grandfather Heart Maternal Uncle Breast Cancer No Family History Colon Cancer No Family History Uterine Cancer No Family History Ovarian cancer No Family History Social History Tobacco Use Smoking status: Former Current packs/day: 0.00 Average packs/day: 0.5 packs/day for 8.3 years (4.1 ttl pk-yrs) Types: Cigarettes Start date: 05/04/2012 Quit date: 08/20/2020 Years since quittin.9 Passive exposure: Never Smokeless tobacco: Never Tobacco comments: Vapes Vaping Use Vaping status: current everyday user Substances: Nicotine Substance Use Topics Alcohol use: No Drug use: Not Currently Types: Marijuana Current Outpatient Medications Medication Sig tiZANidine (ZANAFLEX) 4 mg tablet Take 1 tablet by mouth every 8 hours as needed (muscle spasms). busPIRone 30 mg tablet Take 1 tablet by mouth two times a day. sertraline (ZOLOFT) 50 mg tablet Take 1 tablet by mouth once daily. levothyroxine (SYNTHROID) 50 mcg tablet Take 1 tablet by mouth once daily. LINZESS 145 mcg capsule Take 1 capsule by mouth once daily. esomeprazole (NEXIUM) 40 mg capsule Take 1 capsule by mouth twice daily. 1/2 hr before meal. No current facility-administered medications for this visit. Allergies As of Date: 07/20/2024 (No Known Allergies) Fully Assessed 05/13/2024 REVIEW OF SYSTEMS Abdomen: POSITIVE FOR NAUSEA/ EMESIS daily Bladder: No dysuria, gross hematuria, urinary frequency, urinary urgency, or incontinence. Breast: No breast lumps, nipple d/c, overlying skin changes, redness or skin retraction. Expanded ROS: N/A Allergies and current medication updated:Yes SENSITIVE EXAM: Sensitive exam not performed. EXAM: LMP 05/13/2024 GENERAL: pleasant, female in no apparent distress HEENT: Normocephalic and atraumatic NECK: Supple DERMATOLOGY: Normal ASSESSMENT AND PLAN: Assessment AND Plan Missed menses Orders: UA DIP,URINE HCG (POC) Nausea and vomiting during 6 weeks gestation of - Urine HCG - positive - Initially was ordering Reglan but interaction with patient's current medications - Rx Zofran 4 mg PO every 8 hours as needed for nausea - Continue taking in fluids - Notify office if unable to keep liquids down for 24 hours - RTO 1 week for NOB Roxana Fry APRN.CNM [facility] 07-20-2024 History of Presen t illness Narrative Janet Frank is a 24 year old female who presents for problem visit missed menses LMP 06/04/2024, reported nausea/vomiting. Patient is 6w4d. Patient stated for the past 2 weeks she has had nausea and emesis daily. Taking vitamin B6 and Unisom for the past week without relief. Stated has emesis 3-4 times a day and has not been able to eat for the past 2 days. Able to sip and hold gatorade down. Not able to drink water. NOB scheduled for next week. OB History Gravida1 Para1 Term1 Preterm0 AB0 Living1 SAB0 IAB0 Ectopic0 Multiple0 Live Births1 Comment: 1 son, vaginal on 03/27/17. Had Preeclampsia was induced at 39 weeks. Infant had BM in her. Also had to receive transfusion after due to CBC of 3. Surface Supply Breathing Apparatus History LMP: 05/13/2024 (Exact Date), Having periods Age at Menarche: Age at First : Age at Menopause: [employer] Breathing Apparatus History Comments: Sexual Activity: Yes; Male Contraception: Not used PAST MEDICAL HISTORY Diagnosis Date Adenomyosis of the uterus Anxiety and depression [facility], Dr. Jimenez Excessive or frequent menstruation Heavy periods, resolved with OCP GERD (gastroesophageal reflux disease) Hypothyroid Obesity, Class II, BMI 35-39.9 PAST SURGICAL HISTORY Procedure Laterality Date COLONOSCOPY FLX DX W/COLLJ SPEC WHEN PFRMD 10/14/2017 Colonoscopy ESOPHAGOGASTRODUODENOSCOPY TRANSORAL DIAGNOSTIC 10/14/2017 EGD FAMILY HISTORY Problem Relation Age of Onset other (does not know biological father) Father Diabetes Maternal Grandmother Hypertension Maternal Grandmother Lipids Maternal Grandfather Hypertension Maternal Grandfather Heart Maternal Uncle Breast Cancer No Family History Colon Cancer No Family History Uterine Cancer No Family History Ovarian cancer No Family History Social History Tobacco Use Smoking status: Former Current packs/day: 0.00 Average packs/day: 0.5 packs/day for 8.3 years (4.1 ttl pk-yrs) Types: Cigarettes Start date: 05/04/2012 Quit date: 08/20/2020 Years since quittin.9 Passive exposure: Never Smokeless tobacco: Never Tobacco comments: Vapes Vaping Use Vaping status: current everyday user Substances: Nicotine Substance Use Topics Alcohol use: No Drug use: Not Currently Types: Marijuana Current Outpatient Medications Medication Sig tiZANidine (ZANAFLEX) 4 mg tablet Take 1 tablet by mouth every 8 hours as needed (muscle spasms). busPIRone 30 mg tablet Take 1 tablet by mouth two times a day. sertraline (ZOLOFT) 50 mg tablet Take 1 tablet by mouth once daily. levothyroxine (SYNTHROID) 50 mcg tablet Take 1 tablet by mouth once daily. LINZESS 145 mcg capsule Take 1 capsule by mouth once daily. esomeprazole (NEXIUM) 40 mg capsule Take 1 capsule by mouth twice daily. 1/2 hr before meal. No current facility-administered medications for this visit. Allergies As of Date: 07/20/2024 (No Known Allergies) Fully Assessed 05/13/2024 REVIEW OF SYSTEMS Abdomen: POSITIVE FOR NAUSEA/ EMESIS daily Bladder: No dysuria, gross hematuria, urinary frequency, urinary urgency, or incontinence. Breast: No breast lumps, nipple d/c, overlying skin changes, redness or skin retraction. Expanded ROS: N/A Allergies and current medication updated:Yes SENSITIVE EXAM: Sensitive exam not performed. EXAM: LMP 05/13/2024 GENERAL: pleasant, female in no apparent distress HEENT: Normocephalic and atraumatic NECK: Supple DERMATOLOGY: Normal ASSESSMENT AND PLAN: Assessment & Plan Missed menses Orders: UA DIP,URINE HCG (POC) Nausea and vomiting during 6 weeks gestation of - Urine HCG - positive - Initially was ordering Reglan but interaction with patient's current medications - Rx Zofran 4 mg PO every 8 hours as needed for nausea - Continue taking in fluids - Notify office if unable to keep liquids down for 24 hours - RTO 1 week for CARL Fry APRN.CNM documented in this encounter [facility] 06-20-2024 Telephone encounter Note The following approved medication requests have been transmitted electronically. Requested Prescriptions Signed Prescriptions Disp Refills busPIRone 30 mg tablet 60 tablet 5 Sig: Take 1 tablet by mouth two times a day. Authorizing Provider: IVELISSE NG APRN.CNP [facility] 06-20-2024 Miscellaneous Notes The following approved medication requests have been transmitted electronically. Requested Prescriptions Signed Prescriptions Disp Refills busPIRone 30 mg tablet 60 tablet 5 Sig: Take 1 tablet by mouth two times a day. Authorizing Provider: IVELISSE NG APRN.CNP Patient notified of recommendations, verbalizes understanding of instructions. Pt stated she needs a new Rx for 30 mg Buspar sent to [facility]. Jossy Raines LPN Can you please call the patient back and let her know that she may use up her BuSpar 15 mg tablets, she may take 2 tablets twice daily which equals the 30 mg BID. If she needs an updated prescription I can send in one to her preferred pharmacy. Thank you Ivelisse Ng APRN.CNP Pt calls to report at appt 06/15/24 that medications were changed. Buspar was increased to 30 mg bid from 15 mg tid. Pt is asking if she should still take 15 mg -2 tabs bid or is there 30 mg tabs. Also pt was advised to stop Prozac and start Zoloft 50 mg. Pt reports she felt sad for the first couple of days but seems to be fine now. Pt has a f/u 06/27/24. Please review and advise. Tamanna Amaro LPN documented in this encounter [facility] 06-20-2024 Telephone encounter Note Patient notified of recommendations, verbalizes understanding of instructions. Pt stated she needs a new Rx for 30 mg Buspar sent to [facility]. Jossy Raines LPN [facility] 06-20-2024 Telephone encounter Note Can you please call the patient back and let her know that she may use up her BuSpar 15 mg tablets, she may take 2 tablets twice daily which equals the 30 mg BID. If she needs an updated prescription I can send in one to her preferred pharmacy. Thank you Ivelisse Ng APRN.SENIOR ELECTRONICS ENGINEER [facility] 06-20-2024 Telephone encounter Note Pt calls to report at appt 06/15/24 that medications were changed. Buspar was increased to 30 mg bid from 15 mg tid. Pt is asking if she should still take 15 mg -2 tabs bid or is there 30 mg tabs. Also pt was advised to stop Prozac and start Zoloft 50 mg. Pt reports she felt sad for the first couple of days but seems to be fine now. Pt has a f/u 06/27/24. Please review and advise. Tamanna Amaro LPN [facility] 06-15-2024 Instructions Ivelisse Ng APRN.SENIOR ELECTRONICS ENGINEER - 06/15/2024 1:16 PM EST Stop Prozac, start Zoloft 50 mg daily. May increase BuSpar 30 mg twice daily. Recommend establishing care with counselor. Follow up in 2 weeks. documented in this encounter [facility] 06-15-2024 History of Presen t illness Narrative Chief Complaint Patient presents with: Medication Problem: Increased anxiety This Team Access Model encounter involved medical decision making outside of a scheduled office visit. Patient was offered a virtual/telemedicine appointment in lieu of an office visit due to recommendations to reduce patient exposure to COVID-19. Video was used for evaluation of this patient. Patient agrees to the visit: Yes Patient Location: [place] I have communicated my name and active licensure. The patient's identity and physical location were verified at the time of this visit. Either the patient or their legal escrow representative has been informed of the risks and benefits of -- and alternatives to -- treatment through a remote evaluation and consents to proceed with the evaluation remotely. HPI Janet Frank is a 24 year old female who is contacted today for a virtual visit This is an established patient of Dr. Genie Jackson MD Reports: Discuss decreasing depression medication. Trying to get . Currently taking Prozac 60 mg daily and buspar 15 mg TID. Increased anxiety and sadness. Difficulty falling and staying alseep. Will get chest heaviness. No SI/HI. Past medical history, appointments, medications, allergies reviewed 06/13/2024 Previous Medical History PAST MEDICAL HISTORY Diagnosis Date Adenomyosis of the uterus Anxiety and depression [facility], Dr. Jimenez Excessive or frequent menstruation Heavy periods, resolved with OCP GERD (gastroesophageal reflux disease) Hypothyroid Obesity, Class II, BMI 35-39.9 Previous Surgical History PAST SURGICAL HISTORY Procedure Laterality Date COLONOSCOPY FLX DX W/COLLJ SPEC WHEN PFRMD 10/14/2017 Colonoscopy ESOPHAGOGASTRODUODENOSCOPY TRANSORAL DIAGNOSTIC 10/14/2017 EGD Family History FAMILY HISTORY Problem Relation Age of Onset other (does not know biological father) Father Diabetes Maternal Grandmother Hypertension Maternal Grandmother Lipids Maternal Grandfather Hypertension Maternal Grandfather Heart Maternal Uncle Breast Cancer No Family History Colon Cancer No Family History Uterine Cancer No Family History Ovarian cancer No Family History Patient Allergies ALLERGIES No Known Allergies Current Medications Current Outpatient Medications on File Prior to Visit Medication Sig tiZANidine (ZANAFLEX) 4 mg tablet Take 1 tablet by mouth every 8 hours as needed (muscle spasms). levothyroxine (SYNTHROID) 50 mcg tablet Take 1 tablet by mouth once daily. busPIRone (BUSPAR) 15 mg tablet Take 1 tablet by mouth three times a day. FLUoxetine (PROZAC) 40 mg capsule Take 1 capsule by mouth once daily. Take along with additional 20 mg capsule LINZESS 145 mcg capsule Take 1 capsule by mouth once daily. FLUoxetine (PROZAC) 20 mg capsule Take 1 capsule by mouth once daily. Take along with additional 40 mg capsule esomeprazole (NEXIUM) 40 mg capsule Take 1 capsule by mouth twice daily. 1/2 hr before meal. No current facility-administered medications on file prior to visit. Social History Social History Tobacco Use Smoking status: Former Current packs/day: 0.00 Average packs/day: 0.5 packs/day for 8.3 years (4.1 ttl pk-yrs) Types: Cigarettes Start date: 05/04/2012 Quit date: 08/20/2020 Years since quittin.8 Passive exposure: Never Smokeless tobacco: Never Tobacco comments: Vapes Vaping Use Vaping status: current everyday user Substances: Nicotine Substance Use Topics Alcohol use: No Drug use: Not Currently Types: Marijuana Review of Symptoms GENERAL: No malaise or fatigue. No fevers. HEENT: Negative for headaches No eye discharge or redness No earaches No sore throat Nose POS/NEG for congestion and nasal discharge NECK: Negative for pain or swelling. No lumps RESPIRATORY: No wheezing, SOB, Difficulty breathing. No cough CARDIOVASCULAR: Negative for chest pain GI: No nausea, vomiting, or diarrhea MUSCULOSKELETAL: Negative for bodyaches SKIN: Negative for rash or itching Neuro: No lightheadedness or dizziness Mood: Increased sadness and anxiety EXAM: LMP 05/13/2024 (Exact Date) Limited exam as visit was completed over the virtual platform. Virtual visit completed using video, limited exam completed. Patient sounds or appears ill: No General Appearance: Well appearing, alert, in no acute distress, well-hydrated, well nourished. Skin: Skin color normal Head: Normocephalic. No facial swelling or redness. EENT: Eyes nonreddened. No discharge. External ears nonreddened and no swelling. Neck: No mass or lesions. No swelling. FROM Patient is not able to speak in complete sentences: N/A Patient has labored breathing: No. Patient is audibly coughing: No Psych: Attitude - cooperative, easily engaged in conversation Affect - Euthymic, normal mood Mental status: Alert. Speech is clear and fluent with good repetition, comprehension Appearance - Normal hygiene and grooming appropriate Coordination: No abnormal or extraneous movements. Gait/Stance: Posture is normal. Health Maintenance List DTaP,Tdap,Td Vaccine(7 - Td or Tdap) due on 02/07/2019 Influenza Vaccine(1) due on 01/03/2024 Covid-19 Vaccine(2 - 2023- season) due on 01/03/2024 Depression Screening due on 01/21/2025 Anxiety Screening due on 01/21/2025 Annual PCP Team Chronic Disease Visit due on 05/13/2025 Cervical Cancer Screening due on 11/09/2026 Hepatitis B Vaccine Completed HPV Vaccine Completed Hepatitis C Screening Completed HIV Screening Completed Data reviewed Last 5 Encounter BP Readings: Date: BP: 05/13/2024 121/78 05/13/2024 122/66 04/14/2024 104/82 01/22/2024 110/77 11/10/2023 98/60 BMI Readings from Last 5 Encounters: 05/13/24 : 35.60 kg/m 05/13/24 : 36.16 kg/m 04/14/24 : 35.21 kg/m 01/22/24 : 35.06 kg/m 11/10/23 : 37.28 kg/m Last 5 Encounter Wt Readings: Date: Wt: 05/13/2024 93.4 kg (206 lb) 05/13/2024 94.9 kg (209 lb 3.2 oz) 04/14/2024 92.4 kg (203 lb 11.3 oz) 01/22/2024 92 kg (202 lb 13.2 oz) 11/10/2023 98.5 kg (217 lb 3.2 oz) Medication and allergy list reviewed, reconciled and updated 06/13/2024 ASSESSMENT/PLAN: 1. Anxiety with depression - ICD9: 300.4, ICD10: F41.8 - Discussed with patient importance of getting anxiety and depression stable prior to getting - Stop Prozac and start Zoloft 50 mg daily - May increase Buspar 30 mg BID. - SERTRALINE 50 MG TABLET Follow-up in 2 weeks or sooner as needed. Discussed treatment plan and patient voices understanding. Patient's questions answered appropriately. Medications and potential side effects were discussed and patient voices understanding. Ivelisse Ng APRN.CNP Total appointment time on virtual with patient = 21-30 minutes This note was partially generated using Gatheredtable voice recognition system. Note was reviewed for accuracy. There may be minor misspellings or grammar miscues with Gatheredtable voice recognition. documented in this encounter [facility] 06-15-2024 Note HNO ID: [id number] Author: IVELISSE NG APRN.CNP Service: ? Author Type: Nurse Practitioner Type: Progress Notes Filed: 06/15/2024 13:16 Note Text: Chief Complaint Patient presents with: Medication Problem: Increased anxiety This Team Access Model encounter involved medical decision making outside of a scheduled office visit. Patient was offered a virtual/telemedicine appointment in lieu of an office visit due to recommendations to reduce patient exposure to COVID-19. Video was used for evaluation of this patient. Patient agrees to the visit: Yes Patient Location: [place] I have communicated my name and active licensure. The patient's identity and physical location were verified at the time of this visit. Either the patient or their legal escrow representative has been informed of the risks and benefits of -- and alternatives to -- treatment through a remote evaluation and consents to proceed with the evaluation remotely. HPI Janet Frank is a 24 year old female who is contacted today for a virtual visit This is an established patient of Dr. Genie Jackson MD Reports: Discuss decreasing depression medication. Trying to get . Currently taking Prozac 60 mg daily and buspar 15 mg TID. Increased anxiety and sadness. Difficulty falling and staying alseep. Will get chest heaviness. No SI/HI. Past medical history, appointments, medications, allergies reviewed 06/13/2024 Previous Medical History PAST MEDICAL HISTORY Diagnosis Date Adenomyosis of the uterus Anxiety and depression [facility], Dr. Jimenez Excessive or frequent menstruation Heavy periods, resolved with OCP GERD (gastroesophageal reflux disease) Hypothyroid Obesity, Class II, BMI 35-39.9 Previous Surgical History PAST SURGICAL HISTORY Procedure Laterality Date COLONOSCOPY FLX DX W/COLLJ SPEC WHEN PFRMD 10/14/2017 Colonoscopy ESOPHAGOGASTRODUODENOSCOPY TRANSORAL DIAGNOSTIC 10/14/2017 EGD Family History FAMILY HISTORY Problem Relation Age of Onset other (does not know biological father) Father Diabetes Maternal Grandmother Hypertension Maternal Grandmother Lipids Maternal Grandfather Hypertension Maternal Grandfather Heart Maternal Uncle Breast Cancer No Family History Colon Cancer No Family History Uterine Cancer No Family History Ovarian cancer No Family History Patient Allergies ALLERGIES No Known Allergies Current Medications Current Outpatient Medications on File Prior to Visit Medication Sig tiZANidine (ZANAFLEX) 4 mg tablet Take 1 tablet by mouth every 8 hours as needed (muscle spasms). levothyroxine (SYNTHROID) 50 mcg tablet Take 1 tablet by mouth once daily. busPIRone (BUSPAR) 15 mg tablet Take 1 tablet by mouth three times a day. FLUoxetine (PROZAC) 40 mg capsule Take 1 capsule by mouth once daily. Take along with additional 20 mg capsule LINZESS 145 mcg capsule Take 1 capsule by mouth once daily. FLUoxetine (PROZAC) 20 mg capsule Take 1 capsule by mouth once daily. Take along with additional 40 mg capsule esomeprazole (NEXIUM) 40 mg capsule Take 1 capsule by mouth twice daily. 1/2 hr before meal. No current facility-administered medications on file prior to visit. Social History Social History Tobacco Use Smoking status: Former Current packs/day: 0.00 Average packs/day: 0.5 packs/day for 8.3 years (4.1 ttl pk-yrs) Types: Cigarettes Start date: 05/04/2012 Quit date: 08/20/2020 Years since quittin.8 Passive exposure: Never Smokeless tobacco: Never Tobacco comments: Vapes Vaping Use Vaping status: current everyday user Substances: Nicotine Substance Use Topics Alcohol use: No Drug use: Not Currently Types: Marijuana Review of Symptoms GENERAL: No malaise or fatigue. No fevers. HEENT: Negative for headaches No eye discharge or redness No earaches No sore throat Nose POS/NEG for congestion and nasal discharge NECK: Negative for pain or swelling. No lumps RESPIRATORY: No wheezing, SOB, Difficulty breathing. No cough CARDIOVASCULAR: Negative for chest pain GI: No nausea, vomiting, or diarrhea MUSCULOSKELETAL: Negative for bodyaches SKIN: Negative for rash or itching Neuro: No lightheadedness or dizziness Mood: Increased sadness and anxiety EXAM: LMP 05/13/2024 (Exact Date) Limited exam as visit was completed over the virtual platform. Virtual visit completed using video, limited exam completed. Patient sounds or appears ill: No General Appearance: Well appearing, alert, in no acute distress, well-hydrated, well nourished. Skin: Skin color normal Head: Normocephalic. No facial swelling or redness. EENT: Eyes nonreddened. No discharge. External ears nonreddened and no swelling. Neck: No mass or lesions. No swelling. FROM Patient is not able to speak in complete sentences: N/A Patient has labored breathing: No. Patient is audibly coughing: No Psych: Attitude - cooperative, easil (more content not included)... [facility] 05-13-2024 Note HNO ID: [id number] Author: TERRELL CLOUD APRN.SENIOR ELECTRONICS ENGINEER Service: ? Author Type: Nurse Practitioner Type: Progress Notes Filed: 05/13/2024 13:47 Note Text: Chief Complaint Patient presents with: Headache: X 1 week with sinus pressure HPI Janet Frank is a 24 year old female who presents here today for Above Complaints. . Here with complaints of a headache. Intermittent for 1 week. No fevers, chills, nausea, vomiting, or visual changes. No trauma that preceded the complaint. URI a few weeks ago but resolved. Location of pain is her forehead and temples, radiating around to the base of her neck . No syncope. She has a history of headaches, migraines in the past. She has been taking Excedrin with some success. Past medical history, appointments, medications, allergies reviewed. EXAM: BP 121/78 Pulse 72 Temp 37.2 ?C (99 ?F) Resp 16 Wt 93.4 kg (206 lb) LMP 05/13/2024 (Exact Date) SpO2 97% BMI 35.60 kg/m? General Appearance: Well appearing, alert, in no acute distress, well-hydrated, well nourished.. Head: Normocephalic, no masses, lesions, tenderness or abnormalities. Eyes: Anicteric sclera. Pupils are equally round and reactive to light. Extraocular movements are intact. . Nose/Sinuses: Nares normal, septum midline, mucosa normal, no drainage or sinus tenderness. Oropharynx: Lips, mucosa, and tongue normal, teeth and gums normal, oropharynx normal. Neck: Supple, no adenopathy; thyroid symmetric, normal size M/S: Mild bilateral upper trapezius tenderness. Lungs: Lungs clear to auscultation. No wheezing, rhonchi, rales.. Heart: RRR without murmur, gallop, or rubs. No ectopy. Neurologic: Gait normal. Reflexes normal and symmetric. Sensation grossly intact.. ASSESSMENT/PLAN: 1. Tension headache - ICD9: 307.81, ICD10: G44.209 - Migraine like headache. She has had in the past which was successfully treated with tizanidine. Add prednisone taper to break headache cycle. Return next week if not improving or worsening. - TIZANIDINE 4 MG TABLET - PREDNISONE 10 MG TABLET Terrell Cloud APRN.SENIOR ELECTRONICS ENGINEER This note was partly generated using Gatheredtable voice recognition dictation and may contain some misspelled or inaccurate words missed on review. [facility] 05-13-2024 History of Presen t illness Narrative Chief Complaint Patient presents with: Headache: X 1 week with sinus pressure HPI Janet Frank is a 24 year old female who presents here today for Above Complaints. . Here with complaints of a headache. Intermittent for 1 week. No fevers, chills, nausea, vomiting, or visual changes. No trauma that preceded the complaint. URI a few weeks ago but resolved. Location of pain is her forehead and temples, radiating around to the base of her neck . No syncope. She has a history of headaches, migraines in the past. She has been taking Excedrin with some success. Past medical history, appointments, medications, allergies reviewed. EXAM: BP 121/78 Pulse 72 Temp 37.2 C (99 F) Resp 16 Wt 93.4 kg (206 lb) LMP 05/13/2024 (Exact Date) SpO2 97% BMI 35.60 kg/m General Appearance: Well appearing, alert, in no acute distress, well-hydrated, well nourished.. Head: Normocephalic, no masses, lesions, tenderness or abnormalities. Eyes: Anicteric sclera. Pupils are equally round and reactive to light. Extraocular movements are intact. . Nose/Sinuses: Nares normal, septum midline, mucosa normal, no drainage or sinus tenderness. Oropharynx: Lips, mucosa, and tongue normal, teeth and gums normal, oropharynx normal. Neck: Supple, no adenopathy; thyroid symmetric, normal size M/S: Mild bilateral upper trapezius tenderness. Lungs: Lungs clear to auscultation. No wheezing, rhonchi, rales.. Heart: RRR without murmur, gallop, or rubs. No ectopy. Neurologic: Gait normal. Reflexes normal and symmetric. Sensation grossly intact.. ASSESSMENT/PLAN: 1. Tension headache - ICD9: 307.81, ICD10: G44.209 - Migraine like headache. She has had in the past which was successfully treated with tizanidine. Add prednisone taper to break headache cycle. Return next week if not improving or worsening. - TIZANIDINE 4 MG TABLET - PREDNISONE 10 MG TABLET Terrell Cloud APRN.SENIOR ELECTRONICS ENGINEER This note was partly generated using Gatheredtable voice recognition dictation and may contain some misspelled or inaccurate words missed on review. documented in this encounter [facility] 05-13-2024 Note HNO ID: [id number] Author: ELAYNE SEVERINO APRN.SENIOR ELECTRONICS ENGINEER Service: ? Author Type: Nurse Practitioner Type: Progress Notes Filed: 05/13/2024 10:22 Note Text: Janet Frank is a 24 year old female who presents for problem visit to discuss fertility concerns Hx of Adenomyosis for 3 month(s), LMP 05/01/2024 irregular cycles, new partner attempting for . HPI: she is unsure of exactly days between cycles, flow usually last 4 days. Her partner has 2 other children. Pt was concerned that the adenomyosis would effect her fertility. Pt states that they are having sex multiple times everyday. OB History T1 L1 SAB0 IAB0 Ectopic0 Multiple0 Live Births1 Comment: 1 son, vaginal on 03/27/17. Had Preeclampsia was induced at 39 weeks. had BM in her. Also had to receive transfusion after due to CBC of 3. Surface Supply Breathing Apparatus History LMP: 05/13/2024 (Exact Date), Having periods Age at Menarche: Age at First : Age at Menopause: Surface Supply Breathing Apparatus History Comments: Sexual Activity: Yes; Male Contraception: Not used PAST MEDICAL HISTORY Diagnosis Date Adenomyosis of the uterus Anxiety and depression [facility], Dr. Jimenez Excessive or frequent menstruation Heavy periods, resolved with OCP GERD (gastroesophageal reflux disease) Hypothyroid Obesity, Class II, BMI 35-39.9 PAST SURGICAL HISTORY Procedure Laterality Date COLONOSCOPY FLX DX W/COLLJ SPEC WHEN PFRMD 10/14/2017 Colonoscopy ESOPHAGOGASTRODUODENOSCOPY TRANSORAL DIAGNOSTIC 10/14/2017 EGD FAMILY HISTORY Problem Relation Age of Onset other (does not know biological father) Father Diabetes Maternal Grandmother Hypertension Maternal Grandmother Lipids Maternal Grandfather Hypertension Maternal Grandfather Heart Maternal Uncle Breast Cancer No Family History Colon Cancer No Family History Uterine Cancer No Family History Ovarian cancer No Family History Social History Tobacco Use Smoking status: Former Current packs/day: 0.00 Average packs/day: 0.5 packs/day for 8.3 years (4.1 ttl pk-yrs) Types: Cigarettes Start date: 05/04/2012 Quit date: 08/20/2020 Years since quittin.7 Passive exposure: Never Smokeless tobacco: Never Tobacco comments: Vapes Vaping Use Vaping status: current everyday user Substances: Nicotine Substance Use Topics Alcohol use: No Drug use: Not Currently Types: Marijuana Current Outpatient Medications Medication Sig levothyroxine (SYNTHROID) 50 mcg tablet Take 1 tablet by mouth once daily. busPIRone (BUSPAR) 15 mg tablet Take 1 tablet by mouth three times a day. FLUoxetine (PROZAC) 40 mg capsule Take 1 capsule by mouth once daily. Take along with additional 20 mg capsule LINZESS 145 mcg capsule Take 1 capsule by mouth once daily. FLUoxetine (PROZAC) 20 mg capsule Take 1 capsule by mouth once daily. Take along with additional 40 mg capsule Drospirenone-Ethinyl Estradiol (PRANEETH, Jay,) 3-0.02 mg per tablet Take 1 tablet by mouth once daily for 28 days. esomeprazole (NEXIUM) 40 mg capsule Take 1 capsule by mouth twice daily. 1/2 hr before meal. albuterol HFA (VENTOLIN HFA) 90 mcg/actuation inhaler Inhale 2 Puffs as instructed every 4 hours as needed for wheezing/shortness of breath. (Patient not taking: Reported on 04/14/2024) No current facility-administered medications for this visit. Allergies As of Date: 05/13/2024 (No Known Allergies) Fully Assessed 05/13/2024 REVIEW OF SYSTEMS Expanded ROS: N/A Allergies and current medication updated:Yes SENSITIVE EXAM: Sensitive exam not performed. EXAM: BP 122/66 Wt 209 lb 3.2 oz (94.9kg) LMP 05/13/2024 GENERAL: pleasant, female in no apparent distress HEENT: Normocephalic, atraumatic, mucus membranes moist, and no lesions CHEST: Normal inspiratory effort NEURO: alert and oriented x3,exam grossly non-focal EXTREMITIES: normal ASSESSMENT/PLAN: 1. Encounter for preconception consultation - ICD9: V26.49, ICD10: Z31.69 Reviewed ovulation cycle and timing of intercourse. Start logging cycles and using ovulation kits Follow up as needed. Elayne Severino, ANALYSIS REPORTING DEVELOPER.SENIOR ELECTRONICS ENGINEER Medical Decision Making: Problems: Low: Acute, uncomplicated illness or injury Risk: Low: Low risk from testing/treatment Medical Decision Making Level: 3 - Low [facility] 05-13-2024 History of Presen t illness Narrative Janet Frank is a 24 year old female who presents for problem visit to discuss fertility concerns Hx of Adenomyosis for 3 month(s), LMP 05/01/2024 irregular cycles, new partner attempting for . HPI: she is unsure of exactly days between cycles, flow usually last 4 days. Her partner has 2 other children. Pt was concerned that the adenomyosis would effect her fertility. Pt states that they are having sex multiple times everyday. OB History T1 L1 SAB0 IAB0 Ectopic0 Multiple0 Live Births1 Comment: 1 son, vaginal on 03/27/17. Had Preeclampsia was induced at 39 weeks. had BM in her. Also had to receive transfusion after due to CBC of 3. Surface Supply Breathing Apparatus History LMP: 05/13/2024 (Exact Date), Having periods Age at Menarche: Age at First : Age at Menopause: Surface [employer] Breathing Apparatus History Comments: Sexual Activity: Yes; Male Contraception: Not used PAST MEDICAL HISTORY Diagnosis Date Adenomyosis of the uterus Anxiety and depression [facility], Dr. Jimenez Excessive or frequent menstruation Heavy periods, resolved with OCP GERD (gastroesophageal reflux disease) Hypothyroid Obesity, Class II, BMI 35-39.9 PAST SURGICAL HISTORY Procedure Laterality Date COLONOSCOPY FLX DX W/COLLJ SPEC WHEN PFRMD 10/14/2017 Colonoscopy ESOPHAGOGASTRODUODENOSCOPY TRANSORAL DIAGNOSTIC 10/14/2017 EGD FAMILY HISTORY Problem Relation Age of Onset other (does not know biological father) Father Diabetes Maternal Grandmother Hypertension Maternal Grandmother Lipids Maternal Grandfather Hypertension Maternal Grandfather Heart Maternal Uncle Breast Cancer No Family History Colon Cancer No Family History Uterine Cancer No Family History Ovarian cancer No Family History Social History Tobacco Use Smoking status: Former Current packs/day: 0.00 Average packs/day: 0.5 packs/day for 8.3 years (4.1 ttl pk-yrs) Types: Cigarettes Start date: 05/04/2012 Quit date: 08/20/2020 Years since quittin.7 Passive exposure: Never Smokeless tobacco: Never Tobacco comments: Vapes Vaping Use Vaping status: current everyday user Substances: Nicotine Substance Use Topics Alcohol use: No Drug use: Not Currently Types: Marijuana Current Outpatient Medications Medication Sig levothyroxine (SYNTHROID) 50 mcg tablet Take 1 tablet by mouth once daily. busPIRone (BUSPAR) 15 mg tablet Take 1 tablet by mouth three times a day. FLUoxetine (PROZAC) 40 mg capsule Take 1 capsule by mouth once daily. Take along with additional 20 mg capsule LINZESS 145 mcg capsule Take 1 capsule by mouth once daily. FLUoxetine (PROZAC) 20 mg capsule Take 1 capsule by mouth once daily. Take along with additional 40 mg capsule Drospirenone-Ethinyl Estradiol (PRANEETH, 28,) 3-0.02 mg per tablet Take 1 tablet by mouth once daily for 28 days. esomeprazole (NEXIUM) 40 mg capsule Take 1 capsule by mouth twice daily. 1/2 hr before meal. albuterol HFA (VENTOLIN HFA) 90 mcg/actuation inhaler Inhale 2 Puffs as instructed every 4 hours as needed for wheezing/shortness of breath. (Patient not taking: Reported on 04/14/2024) No current facility-administered medications for this visit. Allergies As of Date: 05/13/2024 (No Known Allergies) Fully Assessed 05/13/2024 REVIEW OF SYSTEMS Expanded ROS: N/A Allergies and current medication updated:Yes SENSITIVE EXAM: Sensitive exam not performed. EXAM: BP 122/66 Wt 209 lb 3.2 oz (94.9kg) LMP 05/13/2024 GENERAL: pleasant, female in no apparent distress HEENT: Normocephalic, atraumatic, mucus membranes moist, and no lesions CHEST: Normal inspiratory effort NEURO: alert and oriented x3,exam grossly non-focal EXTREMITIES: normal ASSESSMENT/PLAN: 1. Encounter for preconception consultation - ICD9: V26.49, ICD10: Z31.69 Reviewed ovulation cycle and timing of intercourse. Start logging cycles and using ovulation kits Follow up as needed. Elayne Severino APRN.CNP Medical Decision Making: Problems: Low: Acute, uncomplicated illness or injury Risk: Low: Low risk from testing/treatment Medical Decision Making Level: 3 - Low documented in this encounter [facility] 04-14-2024 Note HNO ID: [id number] Author: KENNETH MCKEON APRN.CIERRA Service: ? Author Type: Nurse Practitioner Type: Progress Notes Filed: 04/14/2024 13:33 Note Text: Subjective HPI Nontoxic-appearing female presents urgent care chief complaint sore throat headache body aches chills cough fatigue. Duration of symptoms 3 days. Associate symptoms listed above. OTC medications none today. Sick contact family members. Most bothersome symptom today is fatigue. Denies any chest pain shortness of breath pleuritic pain hemoptysis change in bowel or bladder habits. Past medical history prescription medications allergies reviewed. .Patient presents with: Cough: Sore throat, VARGAS, body aches, chills x 3 days PAST MEDICAL HISTORY Diagnosis Date Anxiety and depression [facility], Dr. Jimenez Excessive or frequent menstruation Heavy periods, resolved with OCP GERD (gastroesophageal reflux disease) Hypothyroid Obesity, Class II, BMI 35-39.9 PAST SURGICAL HISTORY Procedure Laterality Date COLONOSCOPY FLX DX W/COLLJ SPEC WHEN PFRMD 10/14/2017 Colonoscopy ESOPHAGOGASTRODUODENOSCOPY TRANSORAL DIAGNOSTIC 10/14/2017 EGD ALLERGIES Patient has no known allergies. MEDICATIONS levothyroxine (SYNTHROID) 50 mcg tablet Take 1 tablet by mouth once daily. busPIRone (BUSPAR) 15 mg tablet Take 1 tablet by mouth three times a day. FLUoxetine (PROZAC) 40 mg capsule Take 1 capsule by mouth once daily. Take along with additional 20 mg capsule LINZESS 145 mcg capsule Take 1 capsule by mouth once daily. FLUoxetine (PROZAC) 20 mg capsule Take 1 capsule by mouth once daily. Take along with additional 40 mg capsule esomeprazole (NEXIUM) 40 mg capsule Take 1 capsule by mouth twice daily. 1/2 hr before meal. Drospirenone-Ethinyl Estradiol (PRANEETH, 28,) 3-0.02 mg per tablet Take 1 tablet by mouth once daily for 28 days. albuterol HFA (VENTOLIN HFA) 90 mcg/actuation inhaler Inhale 2 Puffs as instructed every 4 hours as needed for wheezing/shortness of breath. (Patient not taking: Reported on 04/14/2024) FAMILY HISTORY Problem Relation Age of Onset No Known Problems Mother other (does not know biological father) Father Diabetes Maternal Grandmother Hypertension Maternal Grandmother Lipids Maternal Grandfather Hypertension Maternal Grandfather Heart Maternal Uncle Breast Cancer No Family History Colon Cancer No Family History Uterine Cancer No Family History Ovarian cancer No Family History Social History Tobacco Use Smoking status: Former Current packs/day: 0.00 Average packs/day: 0.5 packs/day for 8.3 years (4.1 ttl pk-yrs) Types: Cigarettes Start date: 05/04/2012 Quit date: 08/20/2020 Years since quittin.6 Passive exposure: Never Smokeless tobacco: Never Tobacco comments: Vapes Vaping Use Vaping status: current everyday user Substances: Nicotine Substance Use Topics Alcohol use: No Drug use: Yes Types: Marijuana BP 104/82 Pulse 103 Temp 36.7 ?C (98 ?F) Resp 20 Wt 92.4 kg (203 lb 11.3 oz) LMP 01/21/2024 SpO2 98% BMI 35.21 kg/m? Hr 93 Review of Systems Constitutional: Positive for chills and malaise/fatigue. Negative for fever. HENT: Positive for congestion, sinus pain and sore throat. Negative for ear discharge and ear pain. Eyes: Negative for blurred vision, pain, discharge and redness. Respiratory: Positive for cough. Negative for hemoptysis, sputum production, shortness of breath, wheezing and stridor. Cardiovascular: Negative for chest pain. Gastrointestinal: Negative for abdominal pain, diarrhea, nausea and vomiting. Musculoskeletal: Positive for myalgias. Skin: Negative for itching and rash. Neurological: Positive for headaches. Negative for dizziness. Objective Physical Exam Constitutional: General: She is not in acute distress. Appearance: She is not diaphoretic. HENT: Head: Normocephalic. Jaw: No trismus, tenderness, swelling or pain on movement. Nose: Congestion present. Mouth/Throat: Mouth: Mucous membranes are moist. Pharynx: Oropharynx is clear. Uvula midline. No pharyngeal swelling, oropharyngeal exudate, posterior oropharyngeal erythema or uvula swelling. Eyes: Conjunctiva/sclera: Conjunctivae normal. Pupils: Pupils are equal, round, and reactive to light. Cardiovascular: Rate and Rhythm: Normal rate and regular rhythm. Heart sounds: Normal heart sounds. Pulmonary: Effort: Pulmonary effort is normal. No tachypnea, accessory muscle usage or respiratory distress. Breath sounds: Normal breath sounds. No stridor. No wheezing, rhonchi or rales. Abdominal: General: There is no distension. Palpations: Abdomen is soft. Tenderness: There is no abdominal tenderness. There is no guarding or rebound. Musculoskeletal: Cervical back: Normal range of motion and neck supple. No edema, erythema, rigidity or tenderness. No pain with movement. Normal range of motion. Lymphadenopathy: Cervical (more content not included)... [facility] 04-14-2024 History of Presen t illness Narrative Subjective HPI Nontoxic-appearing female presents urgent care chief complaint sore throat headache body aches chills cough fatigue. Duration of symptoms 3 days. Associate symptoms listed above. OTC medications none today. Sick contact family members. Most bothersome symptom today is fatigue. Denies any chest pain shortness of breath pleuritic pain hemoptysis change in bowel or bladder habits. Past medical history prescription medications allergies reviewed. .Patient presents with: Cough: Sore throat, VARGAS, body aches, chills x 3 days PAST MEDICAL HISTORY Diagnosis Date Anxiety and depression [facility], Dr. Jimenez Excessive or frequent menstruation Heavy periods, resolved with OCP GERD (gastroesophageal reflux disease) Hypothyroid Obesity, Class II, BMI 35-39.9 PAST SURGICAL HISTORY Procedure Laterality Date COLONOSCOPY FLX DX W/COLLJ SPEC WHEN PFRMD 10/14/2017 Colonoscopy ESOPHAGOGASTRODUODENOSCOPY TRANSORAL DIAGNOSTIC 10/14/2017 EGD ALLERGIES Patient has no known allergies. MEDICATIONS levothyroxine (SYNTHROID) 50 mcg tablet Take 1 tablet by mouth once daily. busPIRone (BUSPAR) 15 mg tablet Take 1 tablet by mouth three times a day. FLUoxetine (PROZAC) 40 mg capsule Take 1 capsule by mouth once daily. Take along with additional 20 mg capsule LINZESS 145 mcg capsule Take 1 capsule by mouth once daily. FLUoxetine (PROZAC) 20 mg capsule Take 1 capsule by mouth once daily. Take along with additional 40 mg capsule esomeprazole (NEXIUM) 40 mg capsule Take 1 capsule by mouth twice daily. 1/2 hr before meal. Drospirenone-Ethinyl Estradiol (PRANEETH, 28,) 3-0.02 mg per tablet Take 1 tablet by mouth once daily for 28 days. albuterol HFA (VENTOLIN HFA) 90 mcg/actuation inhaler Inhale 2 Puffs as instructed every 4 hours as needed for wheezing/shortness of breath. (Patient not taking: Reported on 04/14/2024) FAMILY HISTORY Problem Relation Age of Onset No Known Problems Mother other (does not know biological father) Father Diabetes Maternal Grandmother Hypertension Maternal Grandmother Lipids Maternal Grandfather Hypertension Maternal Grandfather Heart Maternal Uncle Breast Cancer No Family History Colon Cancer No Family History Uterine Cancer No Family History Ovarian cancer No Family History Social History Tobacco Use Smoking status: Former Current packs/day: 0.00 Average packs/day: 0.5 packs/day for 8.3 years (4.1 ttl pk-yrs) Types: Cigarettes Start date: 05/04/2012 Quit date: 08/20/2020 Years since quittin.6 Passive exposure: Never Smokeless tobacco: Never Tobacco comments: Vapes Vaping Use Vaping status: current everyday user Substances: Nicotine Substance Use Topics Alcohol use: No Drug use: Yes Types: Marijuana BP 104/82 Pulse 103 Temp 36.7 C (98 F) Resp 20 Wt 92.4 kg (203 lb 11.3 oz) LMP 01/21/2024 SpO2 98% BMI 35.21 kg/m Hr 93 Review of Systems Constitutional: Positive for chills and malaise/fatigue. Negative for fever. HENT: Positive for congestion, sinus pain and sore throat. Negative for ear discharge and ear pain. Eyes: Negative for blurred vision, pain, discharge and redness. Respiratory: Positive for cough. Negative for hemoptysis, sputum production, shortness of breath, wheezing and stridor. Cardiovascular: Negative for chest pain. Gastrointestinal: Negative for abdominal pain, diarrhea, nausea and vomiting. Musculoskeletal: Positive for myalgias. Skin: Negative for itching and rash. Neurological: Positive for headaches. Negative for dizziness. Objective Physical Exam Constitutional: General: She is not in acute distress. Appearance: She is not diaphoretic. HENT: Head: Normocephalic. Jaw: No trismus, tenderness, swelling or pain on movement. Nose: Congestion present. Mouth/Throat: Mouth: Mucous membranes are moist. Pharynx: Oropharynx is clear. Uvula midline. No pharyngeal swelling, oropharyngeal exudate, posterior oropharyngeal erythema or uvula swelling. Eyes: Conjunctiva/sclera: Conjunctivae normal. Pupils: Pupils are equal, round, and reactive to light. Cardiovascular: Rate and Rhythm: Normal rate and regular rhythm. Heart sounds: Normal heart sounds. Pulmonary: Effort: Pulmonary effort is normal. No tachypnea, accessory muscle usage or respiratory distress. Breath sounds: Normal breath sounds. No stridor. No wheezing, rhonchi or rales. Abdominal: General: There is no distension. Palpations: Abdomen is soft. Tenderness: There is no abdominal tenderness. There is no guarding or rebound. Musculoskeletal: Cervical back: Normal range of motion and neck supple. No edema, erythema, rigidity or tenderness. No pain with movement. Normal range of motion. Lymphadenopathy: Cervical: No cervical adenopathy. Skin: General: Skin is warm and dry. Neurological: Mental Status: She is alert and oriented to person, place, and time. ASSESSMENT/PLAN: 1. Sore throat - ICD9: 462, ICD10: J02.9 (primary diagnosis) - STREP A MOLECULAR (POC) 2. Viral illness - ICD9: 079.99, ICD10: B34.9 - Discussed viral etiology and rationale for treatment. - Rapid strep negative in office today - Symptomatic treatment with prn analgesia - Supportive care with fluids and rest Patient was educated on supportive therapies. Patient will follow up with primary care provider as needed. Patient was instructed to immediately proceed to emergency room for any new, worsening, or symptoms lasting longer than anticipated. The patient's clinical presentation is otherwise unremarkable at this time. Based on exam and clinical finding, the patient is stable for discharge. Plan of care was discussed with patient. Patient verbalizes understanding and agrees to plan of care. This note was generated using Gatheredtable software. It may contain errors in wording, punctuation, or spelling. Kenneth Mckeon APRN.CIERRA documented in this encounter [facility] 03-22-2024 Telephone encounter Note The following approved medication requests have been transmitted electronically. Requested Prescriptions Pending Prescriptions Disp Refills levothyroxine (SYNTHROID) 50 mcg tablet 30 tablet 11 Sig: Take 1 tablet by mouth once daily. Terrell Cloud APRN.CNP [facility] 03-22-2024 Miscellaneous Notes The following approved medication requests have been transmitted electronically. Requested Prescriptions Pending Prescriptions Disp Refills levothyroxine (SYNTHROID) 50 mcg tablet 30 tablet 11 Sig: Take 1 tablet by mouth once daily. Terrell Cloud APRN.CNP The patient has been identified by name and date of : Yes Caregiver verified no other encounters exist for this prescription request: Yes Caregiver confirmed with patient/requestor that no other refills are due, in the near future, with this provider at this time: Yes The last office visit in the department: 01/22/2024 Does the patient have a future office visit with this provider/department: No Visit date not found Requested Prescriptions Pending Prescriptions Disp Refills levothyroxine (SYNTHROID) 50 mcg tablet 30 tablet 11 Sig: Take 1 tablet by mouth once daily. Madina Duke LPN March 22, 2024 9:18 AM documented in this encounter [facility] 03-22-2024 Telephone encounter Note The patient has been identified by name and date of : Yes Caregiver verified no other encounters exist for this prescription request: Yes Caregiver confirmed with patient/requestor that no other refills are due, in the near future, with this provider at this time: Yes The last office visit in the department: 01/22/2024 Does the patient have a future office visit with this provider/department: No Visit date not found Requested Prescriptions Pending Prescriptions Disp Refills levothyroxine (SYNTHROID) 50 mcg tablet 30 tablet 11 Sig: Take 1 tablet by mouth once daily. Madina Duke LPN March 22, 2024 9:18 AM [facility] 01-22-2024 History of Presen t illness Narrative This is a 23 year old female who presents today with: Patient presents with: Wellness HISTORY OF PRESENT ILLNESS: Janet Frank is a 23 year old female. Patient presents with: Wellness Wellness exam Diet: Eating a well balanced diet. Exercise: Active at work. Vision: Had exam, wearing glasses. Dental: Had exam. Sleep: 2-6 hours, varies Hypothyroidism: Taking Synthroid 50 mcg daily. Out of medication now, pharmacy getting filled today. GERD: Taking Nexium 40 mg twice daily OTC. Symptoms well controlled with medication. Anxiety/depression: Taking Prozac 40 mg daily. BuSpar 15 mg 3 times daily. Still having on going anxiety, difficulty sleeping. No SI/Hi. Chronic constipation: Taking Linzess 145 mcg daily. Not following with GI. Medication is helpful. Menses: Irregular, will have 2 menses in a month. Would like to start OCP, was on depo in the past. Concerned about weight gain. Pap:November, normal. Vaccines: Due for Tdap, denies wanting at this time. PAST MEDICAL HISTORY: PAST MEDICAL HISTORY Diagnosis Date Anxiety and depression [facility], Dr. Jimenez Excessive or frequent menstruation Heavy periods, resolved with OCP GERD (gastroesophageal reflux disease) Hypothyroid Obesity, Class II, BMI 35-39.9 PAST SURGICAL HISTORY Procedure Laterality Date COLONOSCOPY FLX DX W/COLLJ SPEC WHEN PFRMD 10/14/2017 Colonoscopy ESOPHAGOGASTRODUODENOSCOPY TRANSORAL DIAGNOSTIC 10/14/2017 EGD ALLERGIES Patient has no known allergies. MEDICATIONS Current Outpatient Medications Medication Sig busPIRone (BUSPAR) 15 mg tablet Take 1 tablet by mouth three times a day. FLUoxetine (PROZAC) 40 mg capsule Take 1 capsule by mouth once daily. LINZESS 145 mcg capsule Take 1 capsule by mouth once daily. levothyroxine (SYNTHROID) 50 mcg tablet Take 1 tablet by mouth once daily. esomeprazole (NEXIUM) 40 mg capsule Take 1 capsule by mouth twice daily. 1/2 hr before meal. albuterol HFA (VENTOLIN HFA) 90 mcg/actuation inhaler Inhale 2 Puffs as instructed every 4 hours as needed for wheezing/shortness of breath. No current facility-administered medications for this visit. FAMILY HISTORY Problem Relation Age of Onset No Known Problems Mother other (does not know biological father) Father Diabetes Maternal Grandmother Hypertension Maternal Grandmother Lipids Maternal Grandfather Hypertension Maternal Grandfather Heart Maternal Uncle Breast Cancer No Family History Colon Cancer No Family History Uterine Cancer No Family History Ovarian cancer No Family History Social History Tobacco Use Smoking status: Former Current packs/day: 0.00 Average packs/day: 0.5 packs/day for 8.3 years (4.1 ttl pk-yrs) Types: Cigarettes Start date: 05/04/2012 Quit date: 08/20/2020 Years since quittin.4 Passive exposure: Never Smokeless tobacco: Never Tobacco comments: Vapes Vaping Use Vaping status: current everyday user Substances: Nicotine Substance Use Topics Alcohol use: No Drug use: Yes Types: Marijuana REVIEW OF SYSTEMS GENERAL: No weight loss, malaise or fevers/chills HEENT: Negative for frequent or significant headaches, No changes in hearing or vision. NECK: Negative for lumps, goiter, pain and significant neck swelling RESPIRATORY: Negative for cough, hemoptysis, wheezing, dyspnea or shortness of breath CARDIOVASCULAR: Negative for chest pain, leg swelling, orthopnea, or palpitations GI: No nausea, vomiting, or diarrhea/constipation. No hematochezia/melena. No heartburn or reflux symptoms. : No history of dysuria, frequency or incontinence MUSCULOSKELETAL: Negative for joint pain or swelling. SKIN: Negative for lesions, rash, and itching ENDOCRINE: Negative for cold or heat intolerance, polyuria, polydipsia and goiter NEURO: No history of headaches, syncope, paralysis, seizures or tremors MOOD: + Anxiety EXAM: BP 110/77 Pulse (!) 58 Resp 16 Ht 162 cm (5' 3.78) Wt 92 kg (202 lb 13.2 oz) LMP 01/21/2024 SpO2 96% BMI 35.06 kg/m PHYSICAL EXAM: General Appearance: Well appearing, alert, in no acute distress, well-hydrated, well nourished. Skin: Skin color, texture, turgor normal, no suspicious rashes or lesions. Head: Normocephalic, no masses, lesions, tenderness or abnormalities. Eyes: Anicteric sclera. Pupils are equally round and reactive to light. Extraocular movements are intact. Ears: External ears normal, canals clear. TMs pearly gunter. Neck: Supple, no adenopathy; thyroid symmetric, normal size, no bruits. Lungs: Lungs clear to auscultation. No wheezing, rhonchi, rales. Heart: RRR without murmur, gallop, or rubs. No ectopy. Abdomen: Normal abdominal exam, Abdomen soft, non-tender. Bowel sounds normal. No masses, organomegaly. Extremities: No deformities, edema, skin discoloration, clubbing or cyanosis. Good capillary refill. Musculoskeletal: No joint swelling, deformity, or tenderness. Peripheral Pulses: Normal, Capillary refill <2secs, strong peripheral pulses, Pulses palpable. Neurologic: Gait normal. Reflexes normal and symmetric. Sensation grossly intact. Mood: Pleasant, engaged, good eye contact. Latest Ref Rng 11/10/2023 Hemoglobin A1C 4.3 - 5.6 % 5.0 Estimated Average Glucose mg/dL 97 TSH 0.270 - 4.200 mIU/L 1.110 ASSESSMENT/PLAN: 1. Wellness examination - ICD9: V70.0, ICD10: Z00.00 (primary diagnosis) - Counseled on healthy diet and regular exercise - Discussed need and benefit for weight loss. BMI 35.05 kg/(m^2) - Follow up for annual exam in one year 2. Anxiety with depression - ICD9: 300.4, ICD10: F41.8 - Increase Prozac 60 mg daily. - Continue with BuSpar 15 mg 3 times daily. - BUSPIRONE 15 MG TABLET - FLUOXETINE 40 MG CAPSULE - FLUOXETINE 20 MG CAPSULE 3. Chronic constipation - ICD9: 564.00, ICD10: K59.09 - Stable, refill provided. - LINZESS 145 MCG CAPSULE 4. Hypothyroidism, unspecified type - ICD9: 244.9, ICD10: E03.9 - Instructed patient on importance of taking on an empty stomach either first thing in the morning or at bedtime. 5. Gastroesophageal reflux disease, unspecified whether esophagitis present - ICD9: 530.81, ICD10: K21.9 - Stable, continue take current medication. 6. Encounter for contraceptive management, unspecified type - ICD9: V25.9, ICD10: Z30.9 - discussed with patient on how to take OCP's. - counseled on benefits, risks and possible severe side effects of OCP's. - discussed need to use Condoms to help to prevent STD's including HIV etc. - DROSPIRENONE 3 MG-ETHINYL ESTRADIOL 0.02 MG TABLET 7. Screening for depression - ICD9: V79.0, ICD10: Z13.31 - DEPRESSION SCREENING 8. Encounter for screening examination for other mental health and behavioral disorders - ICD9: V79.8, ICD10: Z13.39 - ANXIETY SCREENING Follow-up in 1 month or sooner as needed. Discussed treatment plan and patient voices understanding. Patient's questions answered appropriately. Medications and potential side effects were discussed and patient voices understanding. Ivelisse Ng APRN.CIERRA This note was partially generated using [employer] recognition system. Note was reviewed for accuracy. There may be minor misspellings or grammar miscues with Gatheredtable voice recognition. documented in this encounter [facility] 01-22-2024 Note HNO ID: [id number] Author: IVELISSE NG APRN.SENIOR ELECTRONICS ENGINEER Service: ? Author Type: Nurse Practitioner Type: Progress Notes Filed: 01/22/2024 10:26 Note Text: This is a 23 year old female who presents today with: Patient presents with: Wellness HISTORY OF PRESENT ILLNESS: Janet Frank is a 23 year old female. Patient presents with: Wellness Wellness exam Diet: Eating a well balanced diet. Exercise: Active at work. Vision: Had exam, wearing glasses. Dental: Had exam. Sleep: 2-6 hours, varies Hypothyroidism: Taking Synthroid 50 mcg daily. Out of medication now, pharmacy getting filled today. GERD: Taking Nexium 40 mg twice daily OTC. Symptoms well controlled with medication. Anxiety/depression: Taking Prozac 40 mg daily. BuSpar 15 mg 3 times daily. Still having on going anxiety, difficulty sleeping. No SI/Hi. Chronic constipation: Taking Linzess 145 mcg daily. Not following with GI. Medication is helpful. Menses: Irregular, will have 2 menses in a month. Would like to start OCP, was on depo in the past. Concerned about weight gain. Pap:November, normal. Vaccines: Due for Tdap, denies wanting at this time. PAST MEDICAL HISTORY: PAST MEDICAL HISTORY Diagnosis Date Anxiety and depression [facility], Dr. Jimenez Excessive or frequent menstruation Heavy periods, resolved with OCP GERD (gastroesophageal reflux disease) Hypothyroid Obesity, Class II, BMI 35-39.9 PAST SURGICAL HISTORY Procedure Laterality Date COLONOSCOPY FLX DX W/COLLJ SPEC WHEN PFRMD 10/14/2017 Colonoscopy ESOPHAGOGASTRODUODENOSCOPY TRANSORAL DIAGNOSTIC 10/14/2017 EGD ALLERGIES Patient has no known allergies. MEDICATIONS Current Outpatient Medications Medication Sig busPIRone (BUSPAR) 15 mg tablet Take 1 tablet by mouth three times a day. FLUoxetine (PROZAC) 40 mg capsule Take 1 capsule by mouth once daily. LINZESS 145 mcg capsule Take 1 capsule by mouth once daily. levothyroxine (SYNTHROID) 50 mcg tablet Take 1 tablet by mouth once daily. esomeprazole (NEXIUM) 40 mg capsule Take 1 capsule by mouth twice daily. 1/2 hr before meal. albuterol HFA (VENTOLIN HFA) 90 mcg/actuation inhaler Inhale 2 Puffs as instructed every 4 hours as needed for wheezing/shortness of breath. No current facility-administered medications for this visit. FAMILY HISTORY Problem Relation Age of Onset No Known Problems Mother other (does not know biological father) Father Diabetes Maternal Grandmother Hypertension Maternal Grandmother Lipids Maternal Grandfather Hypertension Maternal Grandfather Heart Maternal Uncle Breast Cancer No Family History Colon Cancer No Family History Uterine Cancer No Family History Ovarian cancer No Family History Social History Tobacco Use Smoking status: Former Current packs/day: 0.00 Average packs/day: 0.5 packs/day for 8.3 years (4.1 ttl pk-yrs) Types: Cigarettes Start date: 05/04/2012 Quit date: 08/20/2020 Years since quittin.4 Passive exposure: Never Smokeless tobacco: Never Tobacco comments: Vapes Vaping Use Vaping status: current everyday user Substances: Nicotine Substance Use Topics Alcohol use: No Drug use: Yes Types: Marijuana REVIEW OF SYSTEMS GENERAL: No weight loss, malaise or fevers/chills HEENT: Negative for frequent or significant headaches, No changes in hearing or vision. NECK: Negative for lumps, goiter, pain and significant neck swelling RESPIRATORY: Negative for cough, hemoptysis, wheezing, dyspnea or shortness of breath CARDIOVASCULAR: Negative for chest pain, leg swelling, orthopnea, or palpitations GI: No nausea, vomiting, or diarrhea/constipation. No hematochezia/melena. No heartburn or reflux symptoms. : No history of dysuria, frequency or incontinence MUSCULOSKELETAL: Negative for joint pain or swelling. SKIN: Negative for lesions, rash, and itching ENDOCRINE: Negative for cold or heat intolerance, polyuria, polydipsia and goiter NEURO: No history of headaches, syncope, paralysis, seizures or tremors MOOD: + Anxiety EXAM: BP 110/77 Pulse (!) 58 Resp 16 Ht 162 cm (5' 3.78) Wt 92 kg (202 lb 13.2 oz) LMP 01/21/2024 SpO2 96% BMI 35.06 kg/m? PHYSICAL EXAM: General Appearance: Well appearing, alert, in no acute distress, well-hydrated, well nourished. Skin: Skin color, texture, turgor normal, no suspicious rashes or lesions. Head: Normocephalic, no masses, lesions, tenderness or abnormalities. Eyes: Anicteric sclera. Pupils are equally round and reactive to light. Extraocular movements are intact. Ears: External ears normal, canals clear. TMs pearly gunter. Neck: Supple, no adenopathy; thyroid symmetric, normal size, no bruits. Lungs: Lungs clear to auscultation. No wheezing, rhonchi, rales. Heart: RRR without murmur, gallop, or rubs. No ectopy. Abdomen: Normal abdominal exam, Abdomen soft, non-tender. Bowel sounds normal. No masses, organomegaly. Extremiti (more content not included)... [facility] 01-22-2024 Instructions Ivelisse Ng APRN.CNP - 01/22/2024 9:43 AM EDT Increase Prozac 60 mg daily Continue to take all medication as prescribed Start Praneeth, take daily to help with periods. Continue to work on eating a healthy diet, increase protein, veggies, and get some form of exercise Due Dtap Follow up in 1 month Health Promotion: - Eat healthy -- go to [employer] to get started - Have a yearly physical - Mammogram yearly after age 40 - Get at least 30 minutes of physical activity daily - Get at least 7 to 8 hours of sleep each night - Reach and maintain a healthy weight - Get help to quit or don't start smoking - Limit alcohol use to one drink or less - Do not use illegal drugs or misuse prescription drugs - Wear a helmet when riding a bike and wear protective gear for sports - Wear a seatbelt in cars and not text and drive - Wear sunscreen documented in this encounter [facility] 01-21-2024 Telephone encounter Note Notified via [employer] [facility] 01-21-2024 Miscellaneous Notes Notified via [employer] Please let her know that I have sent in a refill Terrell Cloud APRN.CNP Prescription Refill Information The patient has been identified by name and date of : Yes Caregiver verified no other encounters exist for this prescription request: Yes Caregiver confirmed with patient/requestor that no other refills are due, in the near future, with this provider at this time: Yes The last office visit in the department: 08/26/22 Does the patient have a future office visit with this provider/department: Yes 01/22/24 Requested Prescriptions Pending Prescriptions Disp Refills FLUoxetine (PROZAC) 40 mg capsule 30 capsule 5 Sig: Take 1 capsule by mouth once daily. Jossy Raines LPN January 20, 2024 10:24 AM Patient is schedule for 01-22-24 and wants to know if she has to wait for refills until she is seen? Please let patient know. Thank you. Koki Galan Pt notified via [email or web address] she needs appt for refills. Advised to call in and schedule. Lyric Jaquez MA documented in this encounter [facility] 01-20-2024 Telephone encounter Note The following approved medication requests have been transmitted electronically. Requested Prescriptions Pending Prescriptions Disp Refills busPIRone (BUSPAR) 15 mg tablet 90 tablet 0 Sig: Take 1 tablet by mouth three times a day. FLUoxetine (PROZAC) 40 mg capsule 30 capsule 0 Sig: Take 1 capsule by mouth once daily. Ivelisse Ng APRN.CNP [facility] 01-20-2024 Miscellaneous Notes The following approved medication requests have been transmitted electronically. Requested Prescriptions Pending Prescriptions Disp Refills busPIRone (BUSPAR) 15 mg tablet 90 tablet 0 Sig: Take 1 tablet by mouth three times a day. FLUoxetine (PROZAC) 40 mg capsule 30 capsule 0 Sig: Take 1 capsule by mouth once daily. Ivelisse Ng APRN.CNP documented in this encounter [facility] 01-20-2024 Telephone encounter Note Please let her know that I have sent in a refill Terrell Cloud APRN.CNP [facility] 01-20-2024 Telephone encounter Note Prescription Refill Information The patient has been identified by name and date of : Yes Caregiver verified no other encounters exist for this prescription request: Yes Caregiver confirmed with patient/requestor that no other refills are due, in the near future, with this provider at this time: Yes The last office visit in the department: 08/26/22 Does the patient have a future office visit with this provider/department: Yes 01/22/24 Requested Prescriptions Pending Prescriptions Disp Refills FLUoxetine (PROZAC) 40 mg capsule 30 capsule 5 Sig: Take 1 capsule by mouth once daily. Jossy Raines LPN January 20, 2024 10:24 AM [facility] 01-20-2024 Telephone encounter Note Patient is schedule for 01-22-24 and wants to know if she has to wait for refills until she is seen? Please let patient know. Thank you. Koki Galan [facility] 01-18-2024 Telephone encounter Note Pt notified via [email or web address] she needs appt for refills. Advised to call in and schedule. Lyric Jaquez MA [facility] 01-14-2024 Telephone encounter Note Left message for patient to call office again. I did leave detail that I moved her appt to 1130 tomorrow and to call back to let office know that works. Mychart message sent too. Arina Vinson RN [facility] 01-14-2024 Miscellaneous Notes Left message for patient to call office again. I did leave detail that I moved her appt to 1130 tomorrow and to call back to let office know that works. Mychart message sent too. Arina Vinson RN She is scheduled for virtual visit with RM tomorrow at 1245 and provider has a meeting. Left message for patient to call office to reschedule. Can use any other open time with RM tomorrow and keep as virtual visit still. Arina Vinson RN documented in this encounter [facility] 01-14-2024 Telephone encounter Note She is scheduled for virtual visit with RM tomorrow at 1245 and provider has a meeting. Left message for patient to call office to reschedule. Can use any other open time with RM tomorrow and keep as virtual visit still. Arina Vinson RN [facility] 11-24-2023 History of Presen t illness Narrative VIRTUAL VISIT PROGRESS NOTE This is a virtual visit using [employer] Video Visit. It required patient-provider interaction for the medical decision making as documented below. I have communicated my name and active licensure. The patient's identity and physical location were verified at the time of this visit. Either the patient or their legal escrow representative has been informed of the risks and benefits of -- and alternatives to -- treatment through a remote evaluation and consents to proceed with the evaluation remotely. Janet Frank is a 23 year old female seen for US results. US shows adenomyosis, results reviewed. Pt would to get , current partner is not the FOB of her other child, current partner has no children. HISTORY REVIEWED (electronic chart updated): PAST MEDICAL HISTORY Diagnosis Date Anxiety and depression [facility], Dr. Jimenez Excessive or frequent menstruation Heavy periods, resolved with OCP GERD (gastroesophageal reflux disease) Hypothyroid Obesity, Class II, BMI 35-39.9 PAST SURGICAL HISTORY Procedure Laterality Date COLONOSCOPY FLX DX W/COLLJ SPEC WHEN PFRMD 10/14/2017 Colonoscopy ESOPHAGOGASTRODUODENOSCOPY TRANSORAL DIAGNOSTIC 10/14/2017 EGD FAMILY HISTORY Problem Relation Age of Onset No Known Problems Mother other (does not know biological father) Father Diabetes Maternal Grandmother Hypertension Maternal Grandmother Lipids Maternal Grandfather Hypertension Maternal Grandfather Heart Maternal Uncle Breast Cancer No Family History Colon Cancer No Family History Uterine Cancer No Family History Ovarian cancer No Family History Social History Tobacco Use Smoking status: Former Packs/day: 0.50 Years: 5.00 Additional pack years: 0.00 Total pack years: 2.50 Types: Cigarettes Start date: 05/04/2012 Quit date: 08/20/2020 Years since quittin.2 Passive exposure: Never Smokeless tobacco: Never Tobacco comments: Vapes Vaping Use Vaping Use: current everyday user Substances: Nicotine Substance Use Topics Alcohol use: No Drug use: Yes Types: Marijuana Current Outpatient Medications Medication Sig busPIRone (BUSPAR) 15 mg tablet Take 1 tablet by mouth three times a day. LINZESS 145 mcg capsule Take 1 capsule by mouth once daily. FLUoxetine (PROZAC) 40 mg capsule Take 1 capsule by mouth once daily. levothyroxine (SYNTHROID) 50 mcg tablet Take 1 tablet by mouth once daily. esomeprazole (NEXIUM) 40 mg capsule Take 1 capsule by mouth twice daily. 1/2 hr before meal. albuterol HFA (VENTOLIN HFA) 90 mcg/actuation inhaler Inhale 2 Puffs as instructed every 4 hours as needed for wheezing/shortness of breath. No current facility-administered medications for this visit. ALLERGIES No Known Allergies REVIEW OF SYSTEMS: ESTIMATOR PROJECT MANAGER: denies abnormal vaginal bleeding, no vaginal discharge PHYSICAL EXAMINATION: VIDEO EXAM: (if completed, performed via video enabled technology) No exam performed ASSESSMENT/PLAN: 1. Adenomyosis - ICD9: 617.0, ICD10: N80.03 Pt would like to get , will review with doctor and reach back out to the pt. I spent a total of 20 minutes on the date of the service which included preparing to see the patient, [id number] patient care, completing clinical documentation, obtaining and/or reviewing separately obtained history, and counseling and educating the patient/family/caregiver Elayne Severino APRN.CIERRA documented in this encounter [facility] 11-24-2023 Note HNO ID: [id number] Author: ELAYNE SEVERINO APRN.CNP Service: ? Author Type: Nurse Practitioner Type: Progress Notes Filed: 11/24/2023 16:33 Note Text: VIRTUAL VISIT PROGRESS NOTE This is a virtual visit using [employer] Video Visit. It required patient-provider interaction for the medical decision making as documented below. I have communicated my name and active licensure. The patient's identity and physical location were verified at the time of this visit. Either the patient or their legal escrow representative has been informed of the risks and benefits of -- and alternatives to -- treatment through a remote evaluation and consents to proceed with the evaluation remotely. Janet Frank is a 23 year old female seen for US results. US shows adenomyosis, results reviewed. Pt would to get , current partner is not the FOB of her other child, current partner has no children. HISTORY REVIEWED (electronic chart updated): PAST MEDICAL HISTORY Diagnosis Date Anxiety and depression [facility], Dr. Jimenez Excessive or frequent menstruation Heavy periods, resolved with OCP GERD (gastroesophageal reflux disease) Hypothyroid Obesity, Class II, BMI 35-39.9 PAST SURGICAL HISTORY Procedure Laterality Date COLONOSCOPY FLX DX W/COLLJ SPEC WHEN PFRMD 10/14/2017 Colonoscopy ESOPHAGOGASTRODUODENOSCOPY TRANSORAL DIAGNOSTIC 10/14/2017 EGD FAMILY HISTORY Problem Relation Age of Onset No Known Problems Mother other (does not know biological father) Father Diabetes Maternal Grandmother Hypertension Maternal Grandmother Lipids Maternal Grandfather Hypertension Maternal Grandfather Heart Maternal Uncle Breast Cancer No Family History Colon Cancer No Family History Uterine Cancer No Family History Ovarian cancer No Family History Social History Tobacco Use Smoking status: Former Packs/day: 0.50 Years: 5.00 Additional pack years: 0.00 Total pack years: 2.50 Types: Cigarettes Start date: 05/04/2012 Quit date: 08/20/2020 Years since quittin.2 Passive exposure: Never Smokeless tobacco: Never Tobacco comments: Vapes Vaping Use Vaping Use: current everyday user Substances: Nicotine Substance Use Topics Alcohol use: No Drug use: Yes Types: Marijuana Current Outpatient Medications Medication Sig busPIRone (BUSPAR) 15 mg tablet Take 1 tablet by mouth three times a day. LINZESS 145 mcg capsule Take 1 capsule by mouth once daily. FLUoxetine (PROZAC) 40 mg capsule Take 1 capsule by mouth once daily. levothyroxine (SYNTHROID) 50 mcg tablet Take 1 tablet by mouth once daily. esomeprazole (NEXIUM) 40 mg capsule Take 1 capsule by mouth twice daily. 1/2 hr before meal. albuterol HFA (VENTOLIN HFA) 90 mcg/actuation inhaler Inhale 2 Puffs as instructed every 4 hours as needed for wheezing/shortness of breath. No current facility-administered medications for this visit. ALLERGIES No Known Allergies REVIEW OF SYSTEMS: ESTIMATOR PROJECT MANAGER: denies abnormal vaginal bleeding, no vaginal discharge PHYSICAL EXAMINATION: VIDEO EXAM: (if completed, performed via video enabled technology) No exam performed ASSESSMENT/PLAN: 1. Adenomyosis - ICD9: 617.0, ICD10: N80.03 Pt would like to get , will review with doctor and reach back out to the pt. I spent a total of 20 minutes on the date of the service which included preparing to see the patient, [id number] patient care, completing clinical documentation, obtaining and/or reviewing separately obtained history, and counseling and educating the patient/family/caregiver Elayne Severino APRN.CNP [facility] 11-23-2023 Telephone encounter Note Pt notified and appt scheduled to discuss results further. Vincent Hlae RN [facility] 11-23-2023 Miscellaneous Notes Pt notified and appt scheduled to discuss results further. Vincent Hale RN Left message for patient to call office. [facility] [employer] message also went to patient. Vincent Hale RN Please let the pt know that her US does not show polycystic ovaries but does show adenomyosis. If she wants to discuss the results more she can schedule a virtual/office visit. Elayne Severino APRN.[facility] Please review Pelvic US results. Patient called. RM was not the original ordering provider, but patient states she is no longer seeing that provider. Aware RM is out of office today. Steffanie Lozada RN documented in this encounter [facility] 11-23-2023 Telephone encounter Note Left message for patient to call office. [employer] message also went to patient. Vincent Hale RN [facility] 11-23-2023 Telephone encounter Note Please let the pt know that her US does not show polycystic ovaries but does show adenomyosis. If she wants to discuss the results more she can schedule a virtual/office visit. Elayne Severino APRN.CNP [facility] 11-20-2023 Telephone encounter Note Please review Pelvic US results. Patient called. RM was not the original ordering provider, but patient states she is no longer seeing that provider. Aware RM is out of office today. Steffanie Lozada, RN [facility] 11-19-2023 Note HNO ID: [id number] Author: AILYN TEJADA MD Service: ? Author Type: Physician Type: Progress Notes Filed: 11/19/2023 23:37 Note Text: The patient presents for requested ultrasound. Full report available in the Imaging tab in [facility]. Ailyn Tejada MD [facility] 11-19-2023 History of Presen t illness Narrative The patient presents for requested ultrasound. Full report available in the Imaging tab in [facility]. Ailyn Tejada MD documented in this encounter [facility] 11-16-2023 Telephone encounter Note The following approved medication requests have been transmitted electronically. Requested Prescriptions Pending Prescriptions Disp Refills busPIRone (BUSPAR) 15 mg tablet 90 tablet 0 Sig: Take 1 tablet by mouth three times a day. Ivelisse Ng APRN.CNP [facility] 11-16-2023 Miscellaneous Notes The following approved medication requests have been transmitted electronically. Requested Prescriptions Pending Prescriptions Disp Refills busPIRone (BUSPAR) 15 mg tablet 90 tablet 0 Sig: Take 1 tablet by mouth three times a day. Ivelisse Ng APRN.CNP [facility]-08/26/22 Labs-06/17/23 NOV- My chart message sent to schedule appt. Jossy Raines LPN documented in this encounter [facility] 11-16-2023 Telephone encounter Note [facility]-08/26/22 Labs-06/17/23 NOV- My chart message sent to schedule appt. Jossy Raines LPN [facility] 11-12-2023 Telephone encounter Note I spoke with the patient regarding her recent labs and reviewed them with her. Patient still has a pending order for pelvic ultrasound, I informed her that she can call and schedule that at her convenience. Discussed possible PCOS diagnosis based on elevated DHEA level. Elayne Severino APRN.CNP [facility] 11-12-2023 Miscellaneous Notes I spoke with the patient regarding her recent labs and reviewed them with her. Patient still has a pending order for pelvic ultrasound, I informed her that she can call and schedule that at her convenience. Discussed possible PCOS diagnosis based on elevated DHEA level. Elayne Severino APRN.CNP Patient also called into office asking for RM to review blood work results from 11/09. She has not heard from Dr. Yoon's office yet either regarding these. Arina Vinson, VENK[place]H Patient would like to speak to someone in [facility] [facility] office to go over her lab results. Please call her at [phone]. documented in this encounter [facility] 11-12-2023 Telephone encounter Note Patient also called into office asking for RM to review blood work results from 11/09. She has not heard from Dr. Yoon's office yet either regarding these. Arina Vinson RN [facility] 11-12-2023 Telephone encounter Note Patient would like to speak to someone in [facility] office to go over her lab results. Please call her at [phone]. [facility] 11-12-2023 Telephone encounter Note OK to refill as ordered Genie Jackson MD [facility] 11-12-2023 Miscellaneous Notes OK to refill as ordered Genie Jackson MD Patient calling has changed pharmacy to [facility] [place], she has been out of medication for sometime now having issues having bowel movement. Pending rx to file. Please advise The patient has been identified by name and date of : Yes Caregiver verified no other encounters exist for this prescription request: Yes Caregiver confirmed with patient/requestor that no other refills are due, in the near future, with this provider at this time: Yes The last office visit in the department: 08/26/2022 Does the patient have a future office visit with this provider/department: No no future appt scheduled Requested Prescriptions Pending Prescriptions Disp Refills LINZESS 145 mcg capsule 90 capsule 3 Sig: Take 1 capsule by mouth once daily. Tess Vásquez LPN November 12, 2023 8:38 AM documented in this encounter [facility] 11-12-2023 Telephone encounter Note Patient calling has changed pharmacy to [facility] [place], she has been out of medication for sometime now having issues having bowel movement. Pending rx to file. Please advise The patient has been identified by name and date of : Yes Caregiver verified no other encounters exist for this prescription request: Yes Caregiver confirmed with patient/requestor that no other refills are due, in the near future, with this provider at this time: Yes The last office visit in the department: 08/26/2022 Does the patient have a future office visit with this provider/department: No no future appt scheduled Requested Prescriptions Pending Prescriptions Disp Refills LINZESS 145 mcg capsule 90 capsule 3 Sig: Take 1 capsule by mouth once daily. Tess Vásquez LPN November 12, 2023 8:38 AM [facility] 11-10-2023 Note HNO ID: [id number] Author: ELAYNE SEVERINO APRN.SENIOR ELECTRONICS ENGINEER Service: ? Author Type: Nurse Practitioner Type: Progress Notes Filed: 11/10/2023 16:38 Note Text: Pushcart Peddler offered: Patient declines. Janet is a 23 year old who presents for an annual gynecologic exam without complaints. Menses: cycles every 20-25 days and 4-5 days of flow. Contraception: none HPV vaccine: Yes Last Pap: 2019 abnormal, ASCUS HPV: N/A History of abnormal pap: Yes Last mammogram: never Sexually active: Yes Patient concerns for STD exposure: No. Pain with intercourse: No Postcoital bleeding: No OB History T1 L1 SAB0 IAB0 Ectopic0 Multiple0 Live Births1 Comment: 1 son, vaginal on 03/27/17. Had Preeclampsia was induced at 39 weeks. Infant had BM in her. Also had to receive transfusion after due to CBC of 3. Surface Supply Breathing Apparatus History LMP: 11/01/2023, Having periods Age at Menarche: Age at First : Age at Menopause: Surface [employer] Breathing Apparatus History Comments: Sexual Activity: Yes; Male Contraception: None PAST MEDICAL HISTORY Diagnosis Date Anxiety and depression [facility], Dr. Jimenez Excessive or frequent menstruation Heavy periods, resolved with OCP GERD (gastroesophageal reflux disease) Hypothyroid Obesity, Class II, BMI 35-39.9 PAST SURGICAL HISTORY Procedure Laterality Date COLONOSCOPY FLX DX W/COLLJ SPEC WHEN PFRMD 10/14/2017 Colonoscopy ESOPHAGOGASTRODUODENOSCOPY TRANSORAL DIAGNOSTIC 10/14/2017 EGD FAMILY HISTORY Problem Relation Age of Onset No Known Problems Mother other (does not know biological father) Father Diabetes Maternal Grandmother Hypertension Maternal Grandmother Lipids Maternal Grandfather Hypertension Maternal Grandfather Heart Maternal Uncle Breast Cancer No Family History Colon Cancer No Family History Uterine Cancer No Family History Ovarian cancer No Family History SOCIAL HISTORY Social History Tobacco Use Smoking status: Former Packs/day: 0.50 Years: 5.00 Additional pack years: 0.00 Total pack years: 2.50 Types: Cigarettes Start date: 05/04/2012 Quit date: 08/20/2020 Years since quittin.2 Passive exposure: Never Smokeless tobacco: Never Tobacco comments: Vapes Vaping Use Vaping Use: current everyday user Substances: Nicotine Substance Use Topics Alcohol use: No Drug use: Yes Types: Marijuana REVIEW OF SYSTEMS Abdomen: No abdominal pain, nausea, vomiting, diarrhea, or constipation. No bloating, early satiety, indigestion, or increased flatulence. Bladder: No dysuria, gross hematuria, urinary frequency, urinary urgency, or incontinence. Breast: No breast lumps, nipple d/c, overlying skin changes, redness or skin retraction. Allergies and current medication updated:Yes EXAM: Ht 5' 4 (1.63m) Wt 217 lb 3.2 oz (98.5kg) LMP 11/01/2023 BMI 37.26 kg/(m2). GENERAL: pleasant, female in no apparent distress HEENT: Normocephalic, atraumatic, mucus membranes moist, and no lesions NECK: Supple, full range of motion, no adenopathy, and thyroid normal DERMATOLOGY: Normal, without lesions, non-icteric, and non-hirsute BREAST: soft, non-tender, symmetric, no dominant mass, normal nipple-areolar complex, no lymphadenopathy, and no nipple discharge CHEST: Normal inspiratory effort ABDOMEN: soft, non-tender, and no masses PELVIC: external genitalia normal, normal Bartholin's glands, urethra, [place]'s glands, no vulvar lesions, no cervical lesions, good vaginal support, physiologic discharge present, normal appearing perineal body and perianal region BIMANUAL: uterus normal size, shape and consistency, no adnexal masses, and non-tender RECTOVAGINAL: deferred. NEURO: alert and oriented x3,exam grossly non-focal EXTREMITIES: normal ASSESSMENT/PLAN: 1) Health maintenance: Pap done with reflex HPV. Mammogram starting age 40. Nutrition, exercise and routine health maintenance exams reviewed. Calcium/Vitamin D supplementation information provided. 2) Contraception: none. Contraceptive options reviewed and information provided. 3) STD screening: Declined STD check. 4) Follow up one year or sooner as needed Elayne Severino APRN.[facility] 11-10-2023 History of Presen t illness Narrative Pushcart Peddler offered: Patient declines. Janet is a 23 year old who presents for an annual gynecologic exam without complaints. Menses: cycles every 20-25 days and 4-5 days of flow. Contraception: none HPV vaccine: Yes Last Pap: 2019 abnormal, ASCUS HPV: N/A History of abnormal pap: Yes Last mammogram: never Sexually active: Yes Patient concerns for STD exposure: No. Pain with intercourse: No Postcoital bleeding: No OB History T1 L1 SAB0 IAB0 Ectopic0 Multiple0 Live Births1 Comment: 1 son, vaginal on 03/27/17. Had Preeclampsia was induced at 39 weeks. Infant had BM in her. Also had to receive transfusion after due to CBC of 3. Surface Supply Breathing Apparatus History LMP: 11/01/2023, Having periods Age at Menarche: Age at First : Age at Menopause: Surface Supply Breathing Apparatus History Comments: Sexual Activity: Yes; Male Contraception: None PAST MEDICAL HISTORY Diagnosis Date Anxiety and depression [facility], Dr. Jimenez Excessive or frequent menstruation Heavy periods, resolved with OCP GERD (gastroesophageal reflux disease) Hypothyroid Obesity, Class II, BMI 35-39.9 PAST SURGICAL HISTORY Procedure Laterality Date COLONOSCOPY FLX DX W/COLLJ SPEC WHEN PFRMD 10/14/2017 Colonoscopy ESOPHAGOGASTRODUODENOSCOPY TRANSORAL DIAGNOSTIC 10/14/2017 EGD FAMILY HISTORY Problem Relation Age of Onset No Known Problems Mother other (does not know biological father) Father Diabetes Maternal Grandmother Hypertension Maternal Grandmother Lipids Maternal Grandfather Hypertension Maternal Grandfather Heart Maternal Uncle Breast Cancer No Family History Colon Cancer No Family History Uterine Cancer No Family History Ovarian cancer No Family History SOCIAL HISTORY Social History Tobacco Use Smoking status: Former Packs/day: 0.50 Years: 5.00 Additional pack years: 0.00 Total pack years: 2.50 Types: Cigarettes Start date: 05/04/2012 Quit date: 08/20/2020 Years since quittin.2 Passive exposure: Never Smokeless tobacco: Never Tobacco comments: Vapes Vaping Use Vaping Use: current everyday user Substances: Nicotine Substance Use Topics Alcohol use: No Drug use: Yes Types: Marijuana REVIEW OF SYSTEMS Abdomen: No abdominal pain, nausea, vomiting, diarrhea, or constipation. No bloating, early satiety, indigestion, or increased flatulence. Bladder: No dysuria, gross hematuria, urinary frequency, urinary urgency, or incontinence. Breast: No breast lumps, nipple d/c, overlying skin changes, redness or skin retraction. Allergies and current medication updated:Yes EXAM: Ht 5' 4 (1.63m) Wt 217 lb 3.2 oz (98.5kg) LMP 11/01/2023 BMI 37.26 kg/(m^2). GENERAL: pleasant, female in no apparent distress HEENT: Normocephalic, atraumatic, mucus membranes moist, and no lesions NECK: Supple, full range of motion, no adenopathy, and thyroid normal DERMATOLOGY: Normal, without lesions, non-icteric, and non-hirsute BREAST: soft, non-tender, symmetric, no dominant mass, normal nipple-areolar complex, no lymphadenopathy, and no nipple discharge CHEST: Normal inspiratory effort ABDOMEN: soft, non-tender, and no masses PELVIC: external genitalia normal, normal Bartholin's glands, urethra, [place]'s glands, no vulvar lesions, no cervical lesions, good vaginal support, physiologic discharge present, normal appearing perineal body and perianal region BIMANUAL: uterus normal size, shape and consistency, no adnexal masses, and non-tender RECTOVAGINAL: deferred. NEURO: alert and oriented x3,exam grossly non-focal EXTREMITIES: normal ASSESSMENT/PLAN: 1) Health maintenance: Pap done with reflex HPV. Mammogram starting age 40. Nutrition, exercise and routine health maintenance exams reviewed. Calcium/Vitamin D supplementation information provided. 2) Contraception: none. Contraceptive options reviewed and information provided. 3) STD screening: Declined STD check. 4) Follow up one year or sooner as needed Elayne Severino APRN.CIERRA documented in this encounter [facility] 11-04-2023 History of Presen t illness Narrative Gynecology Virtual Visit This is a virtual visit using [employer] Video Visit. It required patient-provider interaction for the medical decision making as documented below. I have communicated my name and active licensure. The patient's identity and physical location were verified at the time of this visit. Either the patient or their legal escrow representative has been informed of the risks and benefits of -- and alternatives to -- treatment through a remote evaluation and consents to proceed with the evaluation remotely. HPI: 23 year old presents for virtual visit discussion re: Heavy menses Irregular menses Painful menses Desires conception Menses were monthly prior to . Menses are now ~1 week earlier every month. Was on depo provera for 6 years. Stopped 1 year ago as she didn't see a reason to be on it any more. Used for contraception. This last menses she had a lot of clots. Up to size of quarter. Denies PCB or IMB. No issues with urination or bowel movements during menses. Dysmenorrhea: Yes, intense cramping pain. Uses midol. Helps alleviate pain. SA with 1 partner x 7 months. Male. Feels safe with him. IMAGING: none She has not had an endometrial biopsy. Past Gynecologic History: Menarche: elementary school LMP: 11/01/23 Last pap cytology: unsure when last done, History of abnormal history No History of STI: No History of PID: No Past Obstetrical History: Vaginal delivery:1 Section: 0 Ectopic: 0 Miscarriage: 0 Past Medical History: PAST MEDICAL HISTORY Diagnosis Date Anxiety and depression [facility], Dr. Jimenez Excessive or frequent menstruation Heavy periods, resolved with OCP GERD (gastroesophageal reflux disease) Hypothyroid Non morbid obesity 10/12/2017 Past Surgical History: PAST SURGICAL HISTORY Procedure Laterality Date COLONOSCOPY FLX DX W/COLLJ SPEC WHEN PFRMD 10/14/2017 Colonoscopy ESOPHAGOGASTRODUODENOSCOPY TRANSORAL DIAGNOSTIC 10/14/2017 EGD Family History: FAMILY HISTORY Problem Relation Age of Onset No Known Problems Mother other (does not know biological father) Father Lipids Maternal Grandfather Hypertension Maternal Grandfather Heart Maternal Uncle Diabetes Maternal Grandmother Hypertension Maternal Grandmother Social History: Social History Tobacco Use Smoking status: Former Packs/day: 0.50 Years: 5.00 Additional pack years: 0.00 Total pack years: 2.50 Types: Cigarettes Start date: 05/04/2012 Quit date: 08/20/2020 Years since quittin.2 Smokeless tobacco: Never Tobacco comments: Vapes Substance Use Topics Alcohol use: No Drug use: No Current Outpatient Medications Medication Sig FLUoxetine (PROZAC) 40 mg capsule Take 1 capsule by mouth once daily. LINZESS 145 mcg capsule Take 1 capsule by mouth once daily. busPIRone (BUSPAR) 15 mg tablet Take 1 tablet by mouth three times a day. levothyroxine (SYNTHROID) 50 mcg tablet Take 1 tablet by mouth once daily. potassium chloride 20 mEq TbER Take 1 tablet by mouth once daily. esomeprazole (NEXIUM) 40 mg capsule Take 1 capsule by mouth twice daily. 1/2 hr before meal. tiZANidine (ZANAFLEX) 4 mg tablet Take 1 tablet by mouth every 8 hours as needed (muscle spasms). (Patient not taking: Reported on 07/02/2023) albuterol HFA (VENTOLIN HFA) 90 mcg/actuation inhaler Inhale 2 Puffs as instructed every 4 hours as needed for wheezing/shortness of breath. ondansetron orally disintegrating (ZOFRAN ODT) 4 mg disintegrating tablet Take 1 tablet by mouth every 6 hours as needed for nausea/vomiting. METHYLPREDNISOLONE ACETATE (DEPO-MEDROL INJECTION) by INJECTION(UNSPECIFIED PARENTERAL ROUTES) route. (Patient not taking: Reported on 07/02/2023) No current facility-administered medications for this visit. Allergies As of Date: 11/04/2023 (No Known Allergies) Fully Assessed 10/07/2023 O: No vital signs, virtual visit Assessment & Plan No diagnosis found. 23 year old presents with Encounter Diagnosis ICD-10-CM 1. Irregular menses N92.6 2. Acquired hypothyroidism E03.9 3. Class II obesity E66.9 4. Menorrhagia with irregular cycle N92.1 5. Dysmenorrhea N94.6 Discussed potential causes of irregular and heavy menses. She has no intermenstrual or post coital bleeding. She has not issues wit bowel or bladder habits around her menses. She does note intense dysmenorrhea and clotting with the most recent period. She had not had a pap smear or recent imaging. She denies h/o STI/PID. Discussed benefit of weight loss (a little as 5% of body weight) to help regular menses. Encouraged regular exercise (separate from work/home activities) of at least 150 mins per week; to include cardio and weight bearing. Can consider nutrition consult. She is interested in conceiving with partner of 7 months. She is not taking a PNV or using OPK. Discussed fertility window and fertility expectations if ovulating. Recommended: Evaluation of hormone levels (FSH/E2/LH/TSH/Progesterone) 2. Evaluation of A1c given BMI 3. Pelvic ultrasound ordered to evaluate for structural cause of heavy and painful menses. 4. Start PNV 5. Incorporate regular exercise with goal of 11lb weight loss over next 3 months. 6. OPK if desired. 7. Office visit for pap smear and STI testing per CDC guidelines Follow up in 3 months. All questions answered to patient's stated satisfaction. Medical Decision Making: Problems: Moderate: New problem with uncertain prognosis Data: Unique test(s) ordered: 3+ Risk: Low: Low risk from testing/treatment Medical Decision Making Level: 4 - Moderate Rohan Yoon M.D. Clinical Fellow Minimally Invasive Gynecologic Surgery Department of Obstetrics and Gynecology [place], [place] 11/04/2023 documented in this encounter [facility] 11-04-2023 Note HNO ID: [id number] Author: ROHAN YOON MD Service: ? Author Type: Fellow Type: Progress Notes Filed: 11/04/2023 16:03 Note Text: Gynecology Virtual Visit This is a virtual visit using My[employer] Zoom Video Visit. It required patient-provider interaction for the medical decision making as documented below. I have communicated my name and active licensure. The patient's identity and physical location were verified at the time of this visit. Either the patient or their legal escrow representative has been informed of the risks and benefits of -- and alternatives to -- treatment through a remote evaluation and consents to proceed with the evaluation remotely. HPI: 23 year old presents for virtual visit discussion re: Heavy menses Irregular menses Painful menses Desires conception Menses were monthly prior to . Menses are now ~1 week earlier every month. Was on depo provera for 6 years. Stopped 1 year ago as she didn't see a reason to be on it any more. Used for contraception. This last menses she had a lot of clots. Up to size of quarter. Denies PCB or IMB. No issues with urination or bowel movements during menses. Dysmenorrhea: Yes, intense cramping pain. Uses midol. Helps alleviate pain. SA with 1 partner x 7 months. Male. Feels safe with him. IMAGING: none She has not had an endometrial biopsy. Past Gynecologic History: Menarche: elementary school LMP: 11/01/23 Last pap cytology: unsure when last done, History of abnormal history No History of STI: No History of PID: No Past Obstetrical History: Vaginal delivery:1 Section: 0 Ectopic: 0 Miscarriage: 0 Past Medical History: PAST MEDICAL HISTORY Diagnosis Date Anxiety and depression [facility], Dr. Jimenez Excessive or frequent menstruation Heavy periods, resolved with OCP GERD (gastroesophageal reflux disease) Hypothyroid Non morbid obesity 10/12/2017 Past Surgical History: PAST SURGICAL HISTORY Procedure Laterality Date COLONOSCOPY FLX DX W/COLLJ SPEC WHEN PFRMD 10/14/2017 Colonoscopy ESOPHAGOGASTRODUODENOSCOPY TRANSORAL DIAGNOSTIC 10/14/2017 EGD Family History: FAMILY HISTORY Problem Relation Age of Onset No Known Problems Mother other (does not know biological father) Father Lipids Maternal Grandfather Hypertension Maternal Grandfather Heart Maternal Uncle Diabetes Maternal Grandmother Hypertension Maternal Grandmother Social History: Social History Tobacco Use Smoking status: Former Packs/day: 0.50 Years: 5.00 Additional pack years: 0.00 Total pack years: 2.50 Types: Cigarettes Start date: 05/04/2012 Quit date: 08/20/2020 Years since quittin.2 Smokeless tobacco: Never Tobacco comments: Vapes Substance Use Topics Alcohol use: No Drug use: No Current Outpatient Medications Medication Sig FLUoxetine (PROZAC) 40 mg capsule Take 1 capsule by mouth once daily. LINZESS 145 mcg capsule Take 1 capsule by mouth once daily. busPIRone (BUSPAR) 15 mg tablet Take 1 tablet by mouth three times a day. levothyroxine (SYNTHROID) 50 mcg tablet Take 1 tablet by mouth once daily. potassium chloride 20 mEq TbER Take 1 tablet by mouth once daily. esomeprazole (NEXIUM) 40 mg capsule Take 1 capsule by mouth twice daily. 1/2 hr before meal. tiZANidine (ZANAFLEX) 4 mg tablet Take 1 tablet by mouth every 8 hours as needed (muscle spasms). (Patient not taking: Reported on 07/02/2023) albuterol HFA (VENTOLIN HFA) 90 mcg/actuation inhaler Inhale 2 Puffs as instructed every 4 hours as needed for wheezing/shortness of breath. ondansetron orally disintegrating (ZOFRAN ODT) 4 mg disintegrating tablet Take 1 tablet by mouth every 6 hours as needed for nausea/vomiting. METHYLPREDNISOLONE ACETATE (DEPO-MEDROL INJECTION) by INJECTION(UNSPECIFIED PARENTERAL ROUTES) route. (Patient not taking: Reported on 07/02/2023) No current facility-administered medications for this visit. Allergies As of Date: 11/04/2023 (No Known Allergies) Fully Assessed 10/07/2023 O: No vital signs, virtual visit Assessment AND Plan No diagnosis found. 23 year old presents with Encounter Diagnosis ICD-10-CM 1. Irregular menses N92.6 2. Acquired hypothyroidism E03.9 3. Class II obesity E66.9 4. Menorrhagia with irregular cycle N92.1 5. Dysmenorrhea N94.6 Discussed potential causes of irregular and heavy menses. She has no intermenstrual or post coital bleeding. She has not issues wit bowel or bladder habits around her menses. She does note intense dysmenorrhea and clotting with the most recent period. She had not had a pap smear or recent imaging. She denies h/o STI/PID. Discussed benefit of weight loss (a little as 5% of body weight) to help regular menses. Encouraged regular exercise (separate from work/home activities) of at least 150 mins per week; to include cardio and weight bearing. Can consider nutrition consult. She is (more content not included)... [facility] 10-07-2023 History of Presen t illness Narrative This note was created using [employer]. Subjective Janet Frank is a 23 year old female. Janet Frank is a 23 year old female with no PMH presenting today with multiple complaints. She states that both of her nipple piercings that she has had for a year began hurting last week. She doesn't know if there was a period where the piercings were healed. She states that she returned to the director of cardiology service line last week to have them taken out, and the director of cardiology service line said they were not infected. Since then she has noticed scabbing and drainage which seemed to be worse on the right nipple. She states that she previously had a rejected piercing on her lip that she needed to go to the emergency room to have taken out. She has tried Bactine and Aquaphor to some relief. Her symptoms are aggravated by touch. SHE HAS NOT REPLACED PIERCINGS Bilateral ear pain started one week ago. She says the pain is sharp and her ears feel dry. She endorses a productive cough with green/clear sputum and congestion. She previously followed with ENT who stated she had reduced lubrication in her ear canals. Last time she saw ENT was a couple years ago. States they gave her a cream or ointment which helped with her ear pain. She endorses congestion, chills, diaphoresis, and fatigue. She has not tried any home remedies. There are no known sick contacts. Pertinent negatives: -fever -shortness of breath -chest pain -rhinorrhea -n/v/d -sore throat Pertinent positives: +chills +diaphoresis +fatigue +congestion +productive cough +nipple pain +nipple discharge The history is provided by the patient. No school speech language pathologist was used. Ear Pain This is a new problem. The current episode started in the past 7 days. The problem occurs constantly. The problem has been unchanged. Associated symptoms include chills, congestion, coughing, diaphoresis and fatigue. Pertinent negatives include no abdominal pain, anorexia, arthralgias, change in bowel habit, chest pain, fever, headaches, joint swelling, myalgias, nausea, neck pain, numbness, rash, sore throat, swollen glands, urinary symptoms, vertigo, visual change, vomiting or weakness. Nothing aggravates the symptoms. She has tried nothing for the symptoms. Wound Check This is a new problem. The current episode started in the past 7 days. The problem occurs constantly. The problem has been gradually worsening. Associated symptoms include chills, congestion, coughing, diaphoresis and fatigue. Pertinent negatives include no abdominal pain, anorexia, arthralgias, change in bowel habit, chest pain, fever, headaches, joint swelling, myalgias, nausea, neck pain, numbness, rash, sore throat, swollen glands, urinary symptoms, vertigo, visual change, vomiting or weakness. Exacerbated by: touching. Treatments tried: Bactine and Aquaphor. The treatment provided moderate relief. PAST MEDICAL HISTORY Diagnosis Date Anxiety and depression [facility], Dr. Jimenez Excessive or frequent menstruation Heavy periods, resolved with OCP GERD (gastroesophageal reflux disease) Hypothyroid Non morbid obesity 10/12/2017 PAST SURGICAL HISTORY Procedure Laterality Date COLONOSCOPY FLX DX W/COLLJ SPEC WHEN PFRMD 10/14/2017 Colonoscopy ESOPHAGOGASTRODUODENOSCOPY TRANSORAL DIAGNOSTIC 10/14/2017 EGD ALLERGIES Patient has no known allergies. MEDICATIONS FLUoxetine (PROZAC) 40 mg capsule Take 1 capsule by mouth once daily. LINZESS 145 mcg capsule Take 1 capsule by mouth once daily. busPIRone (BUSPAR) 15 mg tablet Take 1 tablet by mouth three times a day. levothyroxine (SYNTHROID) 50 mcg tablet Take 1 tablet by mouth once daily. potassium chloride 20 mEq TbER Take 1 tablet by mouth once daily. esomeprazole (NEXIUM) 40 mg capsule Take 1 capsule by mouth twice daily. 1/2 hr before meal. albuterol HFA (VENTOLIN HFA) 90 mcg/actuation inhaler Inhale 2 Puffs as instructed every 4 hours as needed for wheezing/shortness of breath. ondansetron orally disintegrating (ZOFRAN ODT) 4 mg disintegrating tablet Take 1 tablet by mouth every 6 hours as needed for nausea/vomiting. cephALEXin (KEFLEX) 500 mg capsule Take 1 capsule by mouth four times daily for 5 days. tiZANidine (ZANAFLEX) 4 mg tablet Take 1 tablet by mouth every 8 hours as needed (muscle spasms). (Patient not taking: Reported on 07/02/2023) METHYLPREDNISOLONE ACETATE (DEPO-MEDROL INJECTION) by INJECTION(UNSPECIFIED PARENTERAL ROUTES) route. (Patient not taking: Reported on 07/02/2023) FAMILY HISTORY Problem Relation Age of Onset No Known Problems Mother other (does not know biological father) Father Lipids Maternal Grandfather Hypertension Maternal Grandfather Heart Maternal Uncle Diabetes Maternal Grandmother Hypertension Maternal Grandmother Social History Tobacco Use Smoking status: Former Packs/day: 0.50 Years: 5.00 Additional pack years: 0.00 Total pack years: 2.50 Types: Cigarettes Start date: 05/04/2012 Quit date: 08/20/2020 Years since quittin.1 Smokeless tobacco: Never Tobacco comments: Vapes Substance Use Topics Alcohol use: No Drug use: No Review of Systems Constitutional: Positive for chills, diaphoresis and fatigue. Negative for fever. HENT: Positive for congestion and ear pain. Negative for ear discharge, hearing loss, postnasal drip, rhinorrhea, sinus pressure, sinus pain, sore throat and tinnitus. Eyes: Negative for pain, discharge and itching. Respiratory: Positive for cough. Negative for chest tightness, shortness of breath, wheezing and stridor. Cardiovascular: Negative for chest pain and palpitations. Gastrointestinal: Negative for abdominal pain, anorexia, change in bowel habit, constipation, diarrhea, nausea and vomiting. Musculoskeletal: Negative for arthralgias, joint swelling, myalgias and neck pain. Skin: Positive for wound. Negative for rash. Bilateral nipple piercing. Neurological: Negative for vertigo, weakness, numbness and headaches. Psychiatric/Behavioral: Negative for agitation and behavioral problems. Objective BP 122/80 Pulse 90 Temp 37 C (98.6 F) Resp 16 Wt 99.9 kg (220 lb 3.8 oz) LMP 06/29/2016 SpO2 99% BMI 39.01 kg/m Physical Exam Vitals and nursing note reviewed. Constitutional: General: She is not in acute distress. Appearance: Normal appearance. She is obese. She is not toxic-appearing. HENT: Head: Normocephalic and atraumatic. Right Ear: Tympanic membrane, ear canal and external ear normal. Tenderness present. Left Ear: Tympanic membrane, ear canal and external ear normal. Tenderness present. Nose: No congestion or rhinorrhea. Mouth/Throat: Mouth: Mucous membranes are moist. Pharynx: No oropharyngeal exudate or posterior oropharyngeal erythema. Eyes: General: Right eye: No discharge. Left eye: No discharge. Cardiovascular: Rate and Rhythm: Normal rate and regular rhythm. Heart sounds: Normal heart sounds. No murmur heard. No friction rub. No gallop. Pulmonary: Effort: Pulmonary effort is normal. No respiratory distress. Breath sounds: Normal breath sounds. No stridor. No wheezing, rhonchi or rales. Chest: Chest wall: No tenderness. Breasts: Right: Tenderness present. Left: Tenderness present. Comments: Scabbing on bilateral nipples, right greater than left. No erythema. No discharge. Tenderness to palpation laterally. Musculoskeletal: General: No swelling, tenderness, deformity or signs of injury. Normal range of motion. Cervical back: No tenderness. Lymphadenopathy: Cervical: No cervical adenopathy. Skin: General: Skin is warm and dry. Capillary Refill: Capillary refill takes less than 2 seconds. Neurological: General: No focal deficit present. Mental Status: She is alert. Cranial Nerves: No cranial nerve deficit. Sensory: No sensory deficit. Motor: No weakness. Coordination: Coordination normal. Psychiatric: Mood and Affect: Mood normal. Behavior: Behavior normal. Thought Content: Thought content normal. Judgment: Judgment normal. Assessment and Plan ASSESSMENT/PLAN: 1. Nipple pain - ICD9: 611.71, ICD10: N64.4 (primary diagnosis) Nipple pain for 1 week AT THAT TIME piercing removed. HAS NOT REPLACED Discharge from piercing per patient; NONE SEEN ON EXAM Scabbing seen on both nipples. NO PALPABLE MASSES DIFFUSE TTP. Given Keflex for possible infection. F/U WITH PCP FOR WOUND RECHECK IN 24 TO 48 HOURS 2. Ear pain, bilateral - ICD9: 388.70, ICD10: H92.03 Ear pain for 1 week. Used to follow with ENT. Decreased ear lubrication. No signs of infection Utilize Flonase and or Claritin Follow up with ENT. Luba Aguilar TEACHING PROVIDER (Physician/PA/ANALYSIS REPORTING DEVELOPER) NOTE OF PERSONAL INVOLVEMENT IN CARE: I have personally seen and examined the patient and performed the medical decision-making components. I have reviewed the Advanced Practice Registered Nurse (ANALYSIS REPORTING DEVELOPER) Student's documentation and verified the findings in the note as written. Any additions or changes are noted in bold/italics. Signature: Bhargavi Monique Date: 10/07/2023 Time: 1:35 PM documented in this encounter [facility] 07-23-2023 Miscellaneous Notes Pt notified. Has appt in September. Lyric Jaquez MA The following approved medication requests have been transmitted electronically. Requested Prescriptions Pending Prescriptions Disp Refills FLUoxetine (PROZAC) 40 mg capsule 30 capsule 5 Sig: Take 1 capsule by mouth once daily. Ivelisse Ng APRN.CIERRA Patient reports she hasn't had fluoxetine for a couple days and is not feeling well and not having a good day. Asking if this can be sent today? HECTOR Rodriguez. Please phone patient to let her know it was sent. [phone] Patient has been identified by name and date of : Yes, Provider Genie Jackson MD Date July 23, 2023 Time 9:51 AM Patient phones for refill(s): Requested Prescriptions Pending Prescriptions Disp Refills FLUoxetine (PROZAC) 40 mg capsule 30 capsule 5 Sig: Take 1 capsule by mouth once daily. Date of last office visit in primary care: 08/26/2022 Date of next office visit in primary care: none PT NEEDS AN APPT. NOTIFIED OF THIS VIA [employer]. Please advise. Thank you. Lyric Jaquez MA. documented in this encounter [facility] 07-06-2023 Hospital Discharg e instructions Patient Education 07/06/2023 01:51:22 Headache, Unspecified Headache, Unspecified A number of things can cause headaches. The cause of your headache isn t clear. But it doesn t seem to be a sign of any serious illness. Headache affects almost everyone at some time. It is the most common reason people miss days from work or school. You could have a tension headache or a migraine headache. Stress can cause a tension headache. This can happen if you tense the muscles of your shoulders, neck, and scalp without knowing it. If this stress lasts long enough, you may develop a tension headache. It is not clear why migraines occur, but certain things called triggers can raise the risk of having a migraine attack. Migraine triggers may include emotional stress or depression, or by hormone changes during the menstrual cycle. Other triggers include control pills and other medicines, alcohol or caffeine, foods with tyramine (such as aged cheese, wine), eyestrain, weather changes, missed meals, and lack of sleep or oversleeping. Other causes of headache include: Viral illness with high fever Head injury with concussion Sinus, ear, or throat infection Dental pain and jaw joint (TMJ) pain More serious but less common causes of headache include stroke, brain hemorrhage, brain tumor, meningitis, and encephalitis. Home care Follow these tips when taking care of yourself at home: Don t drive yourself home if you were given pain medicine for your headache. Instead, have someone else drive you home. Try to sleep when you get home. You should feel much better when you wake up. Apply heat to the back of your neck to ease a neck muscle spasm. Take care of a migraine headache by putting an ice pack on your forehead or at the base of your skull. If you have nausea or vomiting, eat a light diet until your headache eases. If you have a migraine headache, use sunglasses when in the daylight or around bright indoor lighting until your symptoms get better. Bright glaring light can make this type of headache worse. Follow-up care Follow up with your healthcare provider, or as advised. Talk with your provider if you have frequent headaches. He or she can help figure out a treatment plan. By knowing the earliest signs of headache, and starting treatment right away, you may be able to stop the pain yourself. When to seek medical advice Call your healthcare provider right away if any of these occur: Your head pain suddenly gets worse after sexual intercourse or strenuous activity Your head pain doesn t get better within 24 hours You aren t able to keep liquids down (repeated vomiting) Fever of 100.4 F (38 C) or higher, or as directed by your healthcare provider Stiff neck Extreme drowsiness, confusion, or fainting Dizziness or dizziness with spinning sensation (vertigo) Weakness in an arm or leg or one side of your face You have trouble talking or seeing 4812-[address] [employer] [place] [address]. All rights reserved. This information is not intended as a substitute for professional medical care. Always follow your healthcare professional's instructions. Follow Up Care 07/06/2023 01:12:48 With:GENIE JACKSON MD Address: [address] [place] [address]- When:2-4 days [facility] 07-06-2023 Note Discharge Instructions Thank you for allowing [facility] to assist you with your healthcare needs. The following is important discharge information regarding your hospital visit. Diagnosis from Today's Visit Headache Headache What to Do Next Instructions from Your Care Team No qualifying data available. Post Acute Orders No qualifying data available. You Need to Schedule the Following Appointments Follow Up with GENIE JACKSON MD When Within 2-4 days Where: [address], [place] [id number]- Allergies No Known Medication Allergies Medications Please ask your primary doctor or pharmacist before taking any other medication not listed, including over the counter drugs, herbal medications, vitamins and or supplements as they may interact with your home medications. Please take this list to your next doctor s visit. Bring all medications you take, including over the counter medications, herbals and other supplements with you to your doctor s visit. Patients and families are reminded to discard old lists and to update any records with all medication providers or retail pharmacies. Education Materials Headache, Unspecified A number of things can cause headaches. The cause of your headache isn t clear. But it doesn t seem to be a sign of any serious illness. Headache affects almost everyone at some time. It is the most common reason people miss days from work or school. You could have a tension headache or a migraine headache. Stress can cause a tension headache. This can happen if you tense the muscles of your shoulders, neck, and scalp without knowing it. If this stress lasts long enough, you may develop a tension headache. It is not clear why migraines occur, but certain things called triggers can raise the risk of having a migraine attack. Migraine triggers may include emotional stress or depression, or by hormone changes during the menstrual cycle. Other triggers include control pills and other medicines, alcohol or caffeine, foods with tyramine (such as aged cheese, wine), eyestrain, weather changes, missed meals, and lack of sleep or oversleeping. Other causes of headache include: Viral illness with high fever Head injury with concussion Sinus, ear, or throat infection Dental pain and jaw joint (TMJ) pain More serious but less common causes of headache include stroke, brain hemorrhage, brain tumor, meningitis, and encephalitis. Home care Follow these tips when taking care of yourself at home: Don t drive yourself home if you were given pain medicine for your headache. Instead, have someone else drive you home. Try to sleep when you get home. You should feel much better when you wake up. Apply heat to the back of your neck to ease a neck muscle spasm. Take care of a migraine headache by putting an ice pack on your forehead or at the base of your skull. If you have nausea or vomiting, eat a light diet until your headache eases. If you have a migraine headache, use sunglasses when in the daylight or around bright indoor lighting until your symptoms get better. Bright glaring light can make this type of headache worse. Follow-up care Follow up with your healthcare provider, or as advised. Talk with your provider if you have frequent headaches. He or she can help figure out a treatment plan. By knowing the earliest signs of headache, and starting treatment right away, you may be able to stop the pain yourself. When to seek medical advice Call your healthcare provider right away if any of these occur: Your head pain suddenly gets worse after sexual intercourse or strenuous activity Your head pain doesn t get better within 24 hours You aren t able to keep liquids down (repeated vomiting) Fever of 100.4 F (38 C) or higher, or as directed by your healthcare provider Stiff neck Extreme drowsiness, confusion, or fainting Dizziness or dizziness with spinning sensation (vertigo) Weakness in an arm or leg or one side of your face You have trouble talking or seeing [id number] [employer]. [address] [place] [address]. All rights reserved. This information is not intended as a substitute for professional medical care. Always follow your healthcare professional's instructions. Additional Information VACCINATE! IT SAVES LIVES! Members of the community who have not yet received the COVID-19 vaccine and would like to receive it can visit one of [facility] vaccine clinics. There are many vaccine clinic locations within the [facility]. For locations and available times, please visit [email or web address] It is important to note that some COVID mobile vaccine clinics are held outdoors and may be canceled in rainy or stormy conditions. To learn more about pediatric vaccinations (ages 5-11), we invite you to visit the [employer] [facility] webpage. [email or web address] [email or web address] To learn more about the COVID-19 vaccine, we invite you to visit the CDC website for a list of frequently asked questions. https://www.cdc.gov/coronavirus/ 2019-ncov/vaccines/faq.html [facility] Patient Portal Access Instructions: Stay connected with your healthcare team and access your personal medical information anytime with the [facility] Patient Portal. If you would like a full copy of your medical records please contact the [facility] Medical Records Department Thursday through Thursday between 8a.m. and 4:30p.m. Please follow the directions below to access the portal: 1.Access the email account you provided upon registration to the [facility].2.Look for an invitation email from [facility].3.Open the email and access the invitation link: Accept Invitation to [facility].Fill in the required gatica to create your account. Sign into [email or web address].[email or web address] with your username and password that you created in the above steps to stay up to date. You can then view a summary of results, a summary of your visits, and the ability to download your summaries to your computer or send the information securely to a physician. Remember that your healthcare information is confidential, so carefully consider who you will allow to register on the [facility] Patient Portal for access to your information. You can also access the [facility] Patient Portal on the [employer]. Simply click on Health Records under Health Data and then click on the [employer] logo. HOW TO SAFELY DISPOSE OF PRESCRIPTION MEDICATIONS Please use one of the following methods to safely dispose of your unused medications. 1.Use a drug disposal kit: the drug disposal pouch allows you to safely discard your old and unused drugs. Ask your nurse to give you one when you are discharged.2.Visit a local take-back location: Many local pharmacies and police departments have programs that collect old and unwanted prescription drugs. Call your local pharmacy or go to http://[email or web address] to find one close to you.3.Make use of household items: Use cat litter or old coffee grounds to dispose medications if other options are not available. Mix your drugs with these household products, seal them in an airtight container and throw it into the garbage. Call [facility]: [phone] to be sure your drugs can be disposed of in this way. Some medicines may require a different approach.4.Never flush your medications down the toilet. IF YOU HAVE BEEN PRESCRIBED AN OPIOIDS FOR PAIN If you have been prescribed an opioid (such as hydrocodone, oxycodone or morphine), it is critical to understand the possible side effects and risks of opioid pain medications. Even when taken as directed, opioids can have several side effects including: Tolerance, meaning you might need to take more of a medication for the same pain relief. Nausea, vomiting and/or constipation. Sleepiness, dizziness, dry mouth, confusion, depression or itching. Physical dependence, meaning you have withdrawal symptoms when a medication is stopped ? this can develop within a few days. KNOW YOUR RESPONSIBILITIES It is important to know exactly how much and how often to take the opioid pain medications you are prescribed. Never take opioids in higher amounts or more often than prescribed. Do not combine opioids with alcohol or other drugs that cause drowsiness, such as benzodiazepines, also known as benzos, including diazepam and alprazolam, muscle relaxants or sleep aids. Never sell or share prescription opioids. This is illegal. Store opioids in a secure place and out of reach of others (including children, family, friends and visitors). The last page(s) of this document has been signed and retained as a CHART COPY Signatures Patient Education Materials Headache, Unspecified Medication Leaflets My discharge plan and instructions have been reviewed and explained to me and I,JANET FRANK understand my current condition and have read and understand these discharge instructions. I have received a written copy of the plan/instructions. If I have questions, I am aware that I should contact my doctor. Patient/Tube Station Attendant Signature: Date/Time: Relationship to Patient: Witness Name/Signature: Date/Time: [facility] 07-02-2023 History of Presen t illness Narrative This note was created using [employer] Bluebook[employer]. Subjective Janet Frank is a 23 year old female. 23 year old female with PMH GERD presents for illness. Acute onset over the past few days She states she is experiencing dizziness +headache My arms were so weak and numb driving here States my vision is going in and out +N/V Headache Review of Systems Neurological: Positive for headaches. Objective BP 105/70 Pulse 74 Temp 36.6 C (97.8 F) Resp 18 Wt 98 kg (216 lb) LMP 06/29/2016 SpO2 99% BMI 38.26 kg/m Physical Exam Assessment and Plan ASSESSMENT/PLAN: 1. Visual disturbance - ICD9: 368.9, ICD10: H53.9 (primary diagnosis) Given her red flag complaints She has been directed to [facility] 2. Dizziness - ICD9: 780.4, ICD10: R42 3. Headache, unspecified headache type - ICD9: 784.0, ICD10: R51.9 Bhargavi Monique APRN.CIERRA documented in this encounter [facility] 06-18-2023 Miscellaneous Notes Patient notified of results, verbalizes understanding of instructions. Jossy Raines LPN Can you please call the patient and let her know I reviewed her lab results. was negative. No signs of anemia. Glucose was mildly low. I would recommend that she eat a well-balanced diet. Get adequate amount of protein with each meal. Stay well-hydrated. Please let me know if she has any questions. Thank you. Ivelisse Ng APRN.CNP documented in this encounter [facility] 06-17-2023 Miscellaneous Notes Pt is currently on her way to get her labs drawn. Aware that we will call her once Ivelisse receives the results and reviews them. Can you please call the patient back and let her know that I have placed some lab orders for her to complete. She does not need to fast. I will call her once I review results. Please let me know if she has any additional questions. Thank you. Ivelisse Ng APRN.CIERRA Pt calling and asking about getting some bloodwork ordered for possible . Pt states she started having some irregular bleeding last the in the morning. States has had episodes of bleeding off and on since then. Pt states she took a test on the which was negative, took another test yesterday which was positive and two more tests today which were negative. Pt states she had been referred to the [facility] dept but they told her to contact PCP as labwork can be ordered to confirm if or not. In talking with pt, she states she is not trying to get but is not using any protection or control at this time. States she was on the Depoprovera shot for about 6 years but last shot was in July. Pt does not have an established [facility] provider as she used to go to [facility] in [place] but that office has closed. In reviewing pt's chart, pt was last seen in FP dept 08/26/22 and was for problem focused visit. Pt is on several meds including thyroid meds and has no follow up scheduled. Appt given with Ivelisse Ng for 06/25/23 for yearly physcial. Pt encouraged to come for appt as she needs to be seen yearly to continue to get her medications and also as she needs lab work. Informed pt that if she is , then she for sure will need to establish with [facility]. Pt plans on coming in for lab work tomorrow. Please place order for testing as well as yearly blood work so it can be completed prior to yearly appt next week with Ivelisse Ng. Call pt only if problem, further instructions or needs to be fasting for any labs. documented in this encounter [facility] 06-16-2023 Miscellaneous Notes Pt notified. Lyric Jaquez Ma Yes, she should check with [facility] [employer] [facility] Genie Jackson MD Reviewed with [facility] Nurse, who states she reached out to pt due to TE on 06/12/23. She tried calling pt but was hung up on. Does pt need to reach out to [facility]ATOR PROJECT MANAGER to schedule an appt? Please advise. Annemarie Sotelo Ma Janet is calling Genie Jackson MD today with concern regarding Patient Request for a test. Patient took a home test and it was positive. Patient has been identified by name and birthdate. Duration of symptoms: N/A Person calling: self Call patient at: on cell [phone] (cell) Was an appointment scheduled: No Closing statement: Results or non-symptom based questions: Thank you for calling [facility], your call will be returned within the next business day. Luisana Snow documented in this encounter [facility] 06-12-2023 Miscellaneous Notes Patient phoned to report she thinks she is having implantation bleeding last 2 days. Reports she thinks she is - although home test yesterday was negative. Reports yesterday is 14 days since she has had sex. Reports she stopped control in November. Reports yesterday had cramping then light bleeding, and blood is not in urine. Reports this morning at 6 am she had cramping and has light bleeding that hasn't stopped yet. Notified nurse Zulema, in [facility], and Zulema agreeable to call patient. documented in this encounter [facility] 04-02-2023 Miscellaneous Notes The following approved medication requests have been transmitted electronically. Requested Prescriptions Pending Prescriptions Disp Refills busPIRone (BUSPAR) 15 mg tablet 90 tablet 5 Sig: Take 1 tablet by mouth three times a day. Terrell Cloud APRN.CNP Last office visit: 08/26/22 F/u scheduled: none Lyric Jaquez Ma documented in this encounter [facility] 03-27-2023 Miscellaneous Notes OK to refill as ordered Genie Jackson MD MYRIAM-08/26/22 Labs-10/22/22 NOV-none Jossy Raines LPN documented in this encounter [facility] 01-14-2023 Miscellaneous Notes The following approved medication requests have been transmitted electronically. Requested Prescriptions Pending Prescriptions Disp Refills LINZESS 145 mcg capsule 30 capsule 5 Sig: Take 1 capsule by mouth once daily. Refused Prescriptions Disp Refills LINZESS 145 mcg capsule [Pharmacy Med Name: Linzess 145 mcg capsule] 30 capsule 5 Sig: Take 1 capsule by mouth once daily. Refused By: TAMARA LAROSE Reason for Refusal: Patient should contact Prescriber first Terrell Cloud APRN.SENIOR ELECTRONICS ENGINEER Last Office Visit: 08/26/2022 Future Office Visit: none Requested Prescriptions Pending Prescriptions Disp Refills LINZESS 145 mcg capsule 30 capsule 5 Sig: Take 1 capsule by mouth once daily. Refused Prescriptions Disp Refills LINZESS 145 mcg capsule [Pharmacy Med Name: Linzess 145 mcg capsule] 30 capsule 5 Sig: Take 1 capsule by mouth once daily. Refused By: TAMARA LAROSE Reason for Refusal: Patient should contact Prescriber first Date of Last Labs: 10/22/2022 documented in this encounter [facility] 10-02-2022 Miscellaneous Notes Spoke with patient. Given message from provider's office. Patient verbalizes understanding. Offered to schedule appointment. She says she will schedule on My Chart. Hailey Gillespie RN Message left for pt to call back. Ok to schedule with Ivelisse Ng or Terrell Cloud in 7-10 days to f/u UTI per PCP. Lyric Jaquez Ma She should be seen back in 7-10 days to have her urine rechecked Genie Jackson MD Patient was seen in [facility] yesterday for possible UTI. She received results today and was told she had blood in her urine and should follow up with PCP. She is asking if and when she should be seen in the office? She is going to finish the course of Macrobid. Hailey Gillespie RN documented in this encounter [facility] 09-30-2022 History of Presen t illness Narrative This note was created using [employer]book[employer]. Subjective Janet Frank is a 22 year old female. HPI Presents with a chief complaint of urinary frequency, pelvic pressure and burning. This has been going on for the past day. She has been using Azo since yesterday. No fever. No vomiting. She is on the Depo shot and has not had a menstrual cycle in 5 years, denies chance of . She denies any new sexual partners, has been with the same partner for 7 years. Review of Systems Constitutional: Negative. HENT: Negative. Respiratory: Negative. Cardiovascular: Negative. Gastrointestinal: Negative. All other systems reviewed and are negative. PAST MEDICAL HISTORY Diagnosis Date Anxiety and depression [facility], Dr. Jimenez Excessive or frequent menstruation Heavy periods, resolved with OCP GERD (gastroesophageal reflux disease) Hypothyroid Non morbid obesity 10/12/2017 Current Outpatient Medications Medication Sig Dispense Refill potassium chloride 20 mEq TbER Take 1 tablet by mouth once daily. 7 tablet 0 esomeprazole (NEXIUM) 40 mg capsule Take 1 capsule by mouth twice daily. 1/2 hr before meal. 60 capsule 1 busPIRone (BUSPAR) 15 mg tablet Take 1 tablet by mouth three times daily. 90 tablet 5 LINZESS 145 mcg capsule Take 1 capsule by mouth once daily. 30 capsule 5 tiZANidine (ZANAFLEX) 4 mg tablet Take 1 tablet by mouth every 8 hours as needed (muscle spasms). 60 tablet 5 levothyroxine (SYNTHROID) 50 mcg tablet Take 1 tablet by mouth once daily. 30 tablet 11 FLUoxetine (PROZAC) 40 mg capsule Take 1 capsule by mouth once daily. 30 capsule 5 albuterol HFA (VENTOLIN HFA) 90 mcg/actuation inhaler Inhale 2 Puffs as instructed every 4 hours as needed for wheezing/shortness of breath. 1 Inhaler 0 ondansetron orally disintegrating (ZOFRAN ODT) 4 mg disintegrating tablet Take 1 tablet by mouth every 6 hours as needed for nausea/vomiting. 12 tablet 0 METHYLPREDNISOLONE ACETATE (DEPO-MEDROL INJECTION) by INJECTION(UNSPECIFIED PARENTERAL ROUTES) route. nitrofurantoin monohydrate and macrocrystal (MACROBID) 100 mg capsule Take 1 capsule by mouth twice daily with meals for 5 days. 10 capsule 0 No current facility-administered medications for this visit. PAST SURGICAL HISTORY Procedure Laterality Date COLONOSCOPY FLX DX W/COLLJ SPEC WHEN PFRMD 10/14/2017 Colonoscopy ESOPHAGOGASTRODUODENOSCOPY TRANSORAL DIAGNOSTIC 10/14/2017 EGD FAMILY HISTORY Problem Relation Age of Onset No Known Problems Mother other (does not know biological father) Father Lipids Maternal Grandfather Hypertension Maternal Grandfather Heart Maternal Uncle Diabetes Maternal Grandmother Hypertension Maternal Grandmother Social History Tobacco Use Smoking status: Former Packs/day: 0.50 Years: 5.00 Pack years: 2.50 Types: Cigarettes Start date: 05/04/2012 Quit date: 08/20/2020 Years since quittin.1 Smokeless tobacco: Never Tobacco comments: Vapes Substance Use Topics Alcohol use: No Drug use: No Objective BP 104/72 Pulse 107 Temp 37.3 C (99.2 F) (Tympanic) Resp 16 Wt 103.3 kg (227 lb 12.8 oz) LMP 06/29/2016 SpO2 96% BMI 40.35 kg/m Physical Exam Vitals reviewed. Constitutional: Appearance: Normal appearance. HENT: Head: Normocephalic and atraumatic. Cardiovascular: Rate and Rhythm: Normal rate and regular rhythm. Heart sounds: Normal heart sounds. Pulmonary: Effort: Pulmonary effort is normal. Breath sounds: Normal breath sounds. Abdominal: General: Abdomen is flat. Palpations: Abdomen is soft. Tenderness: There is no abdominal tenderness. There is no right CVA tenderness, left CVA tenderness or guarding. Skin: General: Skin is warm and dry. Findings: No rash. Neurological: General: No focal deficit present. Mental Status: She is alert. Assessment and Plan ASSESSMENT/PLAN: 1. Acute UTI - ICD9: 599.0, ICD10: N39.0 acute - UA positive - patient took azo, dip unreliable. - Send urine for culture - Begin treatment with Macrobid 100 mg BID for 5 days - UA DIP, URINE (POC) - URINE CULTURE Ruth Vallejo PA-C documented in this encounter [facility] 09-06-2022 History of Presen t illness Narrative Patient came in with complaints of confusion dizziness nausea tingling in her hands and her fingers and hands turning a bluish-purple color. Patient's hands are significantly discolored. Due to confusion patient is being referred back to the emergency room. Patient says she recently had a low potassium and said she feels similar to that. Patient's potassium was replaced and did come back to normal. But with patient's symptom complaints patient should get blood drawn. Patient is going to have someone take her to the ER. Patient was okay with this care plan. documented in this encounter [facility] 08-26-2022 Instructions Terrell Cloud APRN.CNP - 08/26/2022 1:33 PM EDT Schedule EMG, if positive for carpal tunnel syndrome, I will refer to Dr Walton Recheck potassium at end of week Terrell Cloud APRN.CNP documented in this encounter [facility] 08-26-2022 History of Presen t illness Narrative Chief Complaint Patient presents with: ER F/U: 08/22/22 [facility]; abdominal pain HPI Janet Frank is a 22 year old female who presents here today for ER Follow Up. HOSPITAL/ER FOLLOW UP: Reason for visit: Abdominal pain, nausea and vomiting. Vomiting occurring after consuming meals. Also loose stools. Concerned due to being on penicillin for mouth infection. Which facility: [facility] Date of visit: 08/22/2022 Diagnosis: 1. Abdominal pain, vomiting, hypokalemia Testing done: UA positive for protein and ketones, potassium 2.9 WBCs 10.8, lipase 16 CT of abdomen and pelvis with IV contrast showed no acute findings. Treatment given: Discharged with K-tab 20 mEq, twice daily for 5 days for hypokalemia. She is on her last day of this replacement. Current symptoms: At this time, the patient, she is doing okay. No nausea or vomiting. No fevers or chills. Able to move get back to normal diet. Patient continues to use Linzess as prescribed. States that her bowel movements are usually on the looser to diarrhea side but will turn to constipation if she does not take Linzess. Follows with gastroenterology. Discussing carpal tunnel syndrome. Ongoing for 2 years. Left is worse than right. Sometimes numbness and tingling lasts all day. She is left hand dominant. She uses a brace at night. Xray of the left and right wrist within 5 years are normal. She perform exercises a lot. Depression Screening 01/09/2021 03/02/2021 04/05/2021 08/26/2022 PHQ-2 Score 4 0 0 0 PHQ-9 Score 13 0 4 - Depression screening tool completed and reviewed. Based on score and interview, patient is not at risk for depression. Screening tool discussed with patient, and I recommended no further intervention at this time. Past medical history, appointments, medications, allergies reviewed. EXAM: BP 108/71 Pulse 100 Temp 36.8 C (98.2 F) (Left Tympanic) Resp 16 Wt 105.2 kg (232 lb) LMP 06/29/2016 SpO2 96% BMI 41.10 kg/m General Appearance: Well appearing, alert, in no acute distress, well-hydrated, well nourished.. Lungs: Lungs clear to auscultation. No wheezing, rhonchi, rales.. Heart: RRR without murmur, gallop, or rubs. No ectopy. Abdomen: Normal abdominal exam, Abdomen soft, non-tender. Bowel sounds normal. No masses, organomegaly. Musculoskeletal: No wrist joint swelling or tenderness bilaterally. Able to move wrist and full ROM. Positive Tinel's, positive Phalen's sign bilaterally. ASSESSMENT/PLAN: 1. Hypokalemia - ICD9: 276.8, ICD10: E87.6 (primary diagnosis) -Secondary to gastroenteritis. Finish potassium supplement tomorrow, repeat potassium later this week or early next week. - POTASSIUM BLD 2. Nausea and vomiting, unspecified vomiting type - ICD9: 787.01, ICD10: R11.2 -Resolved secondary to gastroenteritis 3. Hospital discharge follow-up - ICD9: V67.59, ICD10: Z09 -See above 4. Paresthesia - ICD9: 782.0, ICD10: R20.2 -Likely carpal tunnel syndrome. Has had x-rays of both wrists in the past 5 years that were normal. Exam was positive. Get EMG. Continue to wear cock-up splint nightly and as needed during the day. Continue with stretches. If positive can send to orthopedics for second opinion and treatment. - EMG(NEURO/NI) 5. Hand pain, left - ICD9: 729.5, ICD10: M79.642 -See #4 - EMG(NEURO/NI) Terrell Cluod APRN.CIERRA I spent a total of 33 minutes on the date of the service which included preparing to see the patient, [id number] patient care, completing clinical documentation, obtaining and/or reviewing separately obtained history, performing a medically appropriate examination, counseling and educating the patient/family/caregiver, and ordering medications, tests, or procedures. This note was partly generated using [employer] voice recognition dictation and may contain some misspelled or inaccurate words missed on review. documented in this encounter [facility] 07-29-2022 Miscellaneous Notes Patient phones requesting refills as follows: Requested Prescriptions Pending Prescriptions Disp Refills esomeprazole (NEXIUM) 40 mg capsule 60 capsule 1 Sig: Take 1 capsule by mouth twice daily. 1/2 hr before meal. Please review and advise. Chaya Reid MA documented in this encounter [facility] 07-23-2022 Miscellaneous Notes The following approved medication requests have been transmitted electronically. Requested Prescriptions Pending Prescriptions Disp Refills busPIRone (BUSPAR) 15 mg tablet 90 tablet 5 Sig: Take 1 tablet by mouth three times daily. Terrell Cloud APRN.CIERRA Patient has been identified by name and date of : Yes Patient phones for refill(s): Requested Prescriptions Pending Prescriptions Disp Refills busPIRone (BUSPAR) 15 mg tablet 90 tablet 5 Sig: Take 1 tablet by mouth three times daily. Date of last office visit in primary care: 02/12/2022 Please advise. Thank you. Sonia Tamayo LPN documented in this encounter [facility] 05-08-2022 Miscellaneous Notes Patient phones requesting refills as follows: Requested Prescriptions Pending Prescriptions Disp Refills esomeprazole (NEXIUM) 40 mg capsule 60 capsule 1 Sig: Take 1 capsule by mouth twice daily. 1/2 hr before meal. Please review and advise. Maria Ines Henning Ma documented in this encounter [facility] 03-07-2022 History of Presen t illness Narrative Chief Complaint Patient presents with: Medication Follow-up HPI: This Team Access Model visit is a virtual encounter. It required patient-provider interaction for the medical decision making as documented below. Patient was offered a virtual/telemedicine appointment in lieu of an office visit due to recommendations to reduce patient exposure to COVID-19. Patient is aware of limitations of performing the visit without a face to face visit in the office setting and agrees. Medication follow up. GERD: Sx controlled on Nexium 40 mg BID. RUDOLPH/Depression: Not doing any counseling currently, [facility] Taking Buspar 15 mg TID prn which is working for the anxiety. Also taking Prozac 20 mg daily. This seemed to work well at first, but not as much now. Wonders about increasing the dose. Thyroid: Taking Synthroid 50 mcg daily. Denies any missed dosages. Past medical history, appointments, medications, allergies reviewed. Previous Medical History PAST MEDICAL HISTORY Diagnosis Date Anxiety and depression [facility], Dr. Jimenez Excessive or frequent menstruation Heavy periods, resolved with OCP GERD (gastroesophageal reflux disease) Hypothyroid Non morbid obesity 10/12/2017 Previous Surgical History PAST SURGICAL HISTORY Procedure Laterality Date COLONOSCOPY FLX DX W/COLLJ SPEC WHEN PFRMD 10/14/2017 Colonoscopy ESOPHAGOGASTRODUODENOSCOPY TRANSORAL DIAGNOSTIC 10/14/2017 EGD Family History FAMILY HISTORY Problem Relation Age of Onset No Known Problems Mother other (does not know biological father) Father Lipids Maternal Grandfather Hypertension Maternal Grandfather Heart Maternal Uncle Diabetes Maternal Grandmother Hypertension Maternal Grandmother Patient Allergies ALLERGIES Not on File Current Medications Current Outpatient Medications on File Prior to Visit Medication Sig esomeprazole (NEXIUM) 40 mg capsule Take 1 capsule by mouth twice daily. 1/2 hr before meal. fluticasone (FLONASE) 50 mcg/actuation nasal spray Use 2 Sprays in each nostril once daily. Rinse mouth after use. benzonatate (TESSALON PERLES) 100 mg capsule Take 2 capsules by mouth three times daily as needed. busPIRone (BUSPAR) 15 mg tablet Take 1 tablet by mouth three times daily. FLUoxetine (PROZAC) 20 mg capsule Take 1 capsule by mouth once daily. LINZESS 145 mcg capsule Take 1 capsule by mouth once daily. tiZANidine (ZANAFLEX) 4 mg tablet Take 1 tablet by mouth every 8 hours as needed (muscle spasms). albuterol HFA (VENTOLIN HFA) 90 mcg/actuation inhaler Inhale 2 Puffs as instructed every 4 hours as needed for wheezing/shortness of breath. ondansetron orally disintegrating (ZOFRAN ODT) 4 mg disintegrating tablet Take 1 tablet by mouth every 6 hours as needed for nausea/vomiting. levothyroxine (SYNTHROID) 50 mcg tablet Take 1 tablet by mouth once daily. ferrous sulfate 325 mg (65 mg iron) tablet Take 1 tablet by mouth daily with breakfast. METHYLPREDNISOLONE ACETATE (DEPO-MEDROL INJECTION) by INJECTION(UNSPECIFIED PARENTERAL ROUTES) route. No current facility-administered medications on file prior to visit. Social History Social History Tobacco Use Smoking status: Every Day Packs/day: 0.50 Years: 5.00 Pack years: 2.50 Types: Cigarettes Start date: 05/04/2012 Smokeless tobacco: Never Tobacco comments: Vapes Substance Use Topics Alcohol use: No Drug use: No EXAM: LMP 06/29/2016 Health Maintenance List PNEUMOCOCCAL(1 - PCV) Never done MENINGOCOCCAL B: Consider based on risk(1 of 2 - Risk Bexsero 2-dose series) Never done DTAP,TDAP,TD(7 - Td or Tdap) due on 02/07/2019 DEPRESSION ASSESSMENT Never done COVID-19 VACCINE(2 - Pfizer series) due on 06/20/2021 INFLUENZA(1) due on 01/02/2022 PAP TESTING due on 12/21/2022 ANNUAL PCP TEAM CHRONIC DISEASE VISIT due on 02/12/2023 HEPATITIS B Completed HPV VACCINE Completed HEPATITIS C SCREENING Completed HIV SCREENING Completed Data reviewed none ASSESSMENT/PLAN: 1. Recurrent major depressive disorder, remission status unspecified (HCC) - ICD9: 296.30, ICD10: F33.9 Increase prozac to 40 mg daily - FLUOXETINE 40 MG CAPSULE Follow up in 2 months I agree with the Chief Complaint, ROS, and Past Histories independently gathered by the clinical peer support specialist and the remaining scribed note accurately describes my personal service to the patient. Genie Jackson MD The documentation for this note was completed by Lyric Jaquez Ma acting as scribe for Genie Jackson MD. March 07, 2022 3:26 PM. Lyric Jaquez Ma documented in this encounter [facility] 02-17-2022 Miscellaneous Notes Patient phones requesting refills as follows: Requested Prescriptions Pending Prescriptions Disp Refills esomeprazole (NEXIUM) 40 mg capsule 60 capsule 1 Sig: Take 1 capsule by mouth twice daily. 1/2 hr before meal. Please review and advise. Maria Ines Henning Ma documented in this encounter [facility] 02-12-2022 History of Presen t illness Narrative 02/12/2022 Patient presents with: Ear Problem: Pain to left ear x1 week; hearing has decreased in ear ATB completed yesterday SUBJECTIVE: This is a 22 year old that is here today for Above Complaints.. For about one week has had left ear pain. Pain described as sharp. Hearing decreased things sound muffled. When she swallows can hear it inside her ear. Completed seven day course of amoxicillin yesterday. Also admits to sinus pain/pressure, headaches, nasal congestion and cough. Denies hx of ear infections, fevers, muscle aches, SOB, dyspnea, loss of taste/smell, nausea, vomiting or diarrhea. PAST MEDICAL HISTORY Diagnosis Date Anxiety and depression [facility], Dr. Jimenez Excessive or frequent menstruation Heavy periods, resolved with OCP GERD (gastroesophageal reflux disease) Hypothyroid Non morbid obesity 10/12/2017 ALLERGIES Patient has no allergy information on record. MEDICATIONS Current Outpatient Medications Medication Sig amoxicillin (AMOXIL) 875 mg tablet Take 1 tablet by mouth twice daily for 7 days. fluticasone (FLONASE) 50 mcg/actuation nasal spray Use 2 Sprays in each nostril once daily. Rinse mouth after use. benzonatate (TESSALON PERLES) 100 mg capsule Take 2 capsules by mouth three times daily as needed. esomeprazole (NEXIUM) 40 mg capsule Take 1 capsule by mouth twice daily. 1/2 hr before meal. busPIRone (BUSPAR) 15 mg tablet Take 1 tablet by mouth three times daily. FLUoxetine (PROZAC) 20 mg capsule Take 1 capsule by mouth once daily. LINZESS 145 mcg capsule Take 1 capsule by mouth once daily. tiZANidine (ZANAFLEX) 4 mg tablet Take 1 tablet by mouth every 8 hours as needed (muscle spasms). albuterol HFA (VENTOLIN HFA) 90 mcg/actuation inhaler Inhale 2 Puffs as instructed every 4 hours as needed for wheezing/shortness of breath. ondansetron orally disintegrating (ZOFRAN ODT) 4 mg disintegrating tablet Take 1 tablet by mouth every 6 hours as needed for nausea/vomiting. levothyroxine (SYNTHROID) 50 mcg tablet Take 1 tablet by mouth once daily. ferrous sulfate 325 mg (65 mg iron) tablet Take 1 tablet by mouth daily with breakfast. METHYLPREDNISOLONE ACETATE (DEPO-MEDROL INJECTION) by INJECTION(UNSPECIFIED PARENTERAL ROUTES) route. No current facility-administered medications for this visit. Medications and allergies reviewed by this provider. SOCIAL HISTORY Social History Tobacco Use Smoking status: Every Day Packs/day: 0.50 Years: 5.00 Pack years: 2.50 Types: Cigarettes Start date: 05/04/2012 Smokeless tobacco: Never Tobacco comments: Vapes Substance Use Topics Alcohol use: No Drug use: No REVIEW OF SYSTEMS All other reviewed and negative other than HPI. OBJECTIVE: BP 122/86 Pulse 106 Temp 37.2 C (98.9 F) Resp 18 Wt 107 kg (235 lb 12.8 oz) LMP 06/29/2016 SpO2 98% BMI 41.77 kg/m . Vital signs reviewed by this provider. APPEARANCE Well appearing, alert, in no acute distress, well-hydrated, well nourished. EYES PERRLA, conjunctiva and sclera normal. EARS right External ears normal, canals clear, Positive findings: L TM: with mild erythema NOSE/SINUS positive findings: sinus tenderness frontal bilateral, mucosa erythematous and swollen THROAT mild erythema NECK Supple, HEART RRR with normal S1 and S2, no murmurs, no gallops, no JVD appreciated LUNG clear to auscultation. No wheezes, rhonchi, or rales SKIN Skin color, texture, turgor normal, no suspicious rashes or lesions to exposed skin PNEUMOCOCCAL(1 - PCV) Never done MENINGOCOCCAL B: Consider based on risk(1 of 2 - Risk Bexsero 2-dose series) Never done GC (GONORRHEA) SCREENING (18-) due on 12/20/2016 CHLAMYDIA SCREENING (18-) due on 12/20/2016 DTAP,TDAP,TD(7 - Td or Tdap) due on 02/07/2019 DEPRESSION ASSESSMENT Never done COVID-19 VACCINE(2 - Pfizer series) due on 06/20/2021 INFLUENZA(1) due on 01/02/2022 ANNUAL PCP TEAM CHRONIC DISEASE VISIT due on 11/26/2022 PAP TESTING due on 12/21/2022 HEPATITIS B Completed HPV VACCINE Completed HEPATITIS C SCREENING Completed HIV SCREENING Completed ASSESSMENT/PLAN: 1. Frontal sinus pain - ICD9: 478.19, ICD10: J34.89 (primary diagnosis) - Will begin treatment with Augmentin 875 mg PO BID for 7 days - The patient should also be given OTC decongestants prn, nasal saline gtts and suction prn, and Flonase nasal spray for the first 5-7 days of treatment. - Supportive care with plenty of fluids, rest, and analgesia prn. - Follow up in one week if symptoms persist or worsen- if no improvement recommend ENT referral - AMOXICILLIN 875 MG-POTASSIUM CLAVULANATE 125 MG TABLET 2. Left ear pain - ICD9: 388.70, ICD10: H92.02 -plan as above - AMOXICILLIN 875 MG-POTASSIUM CLAVULANATE 125 MG TABLET Michelle Hayes APRN.CNP Prescription instructions reviewed with patient as applicable. Patient advised if symptoms do not improve or if symptoms worsen sooner, to contact their primary care physician. Potential red flag symptoms discussed with the patient. Reviewed appropriate action plan to take if red flag symptoms occur. Patient agreeable to treatment plan. I spent a total of 22 minutes on the date of the service which included preparing to see the patient, [id number] patient care, completing clinical documentation, obtaining and/or reviewing separately obtained history, performing a medically appropriate examination, counseling and educating the patient/family/caregiver, and ordering medications, tests, or procedures. documented in this encounter [facility] 02-05-2022 History of Presen t illness Narrative This note was created using [employer]. Subjective Janet Frank is a 22 year old female. HPI Patient presents with left ear pain and difficulty hearing the past couple of days. She was in a few days ago and tested negative for COVID. She is taking Tessalon, prednisone. She also has eyedrops for pinkeye. Her ear started to bother her so she came back in. Her son was sick with similar symptoms. No chest pain or shortness of breath. The congestion and other symptoms have improved. Review of Systems Constitutional: Negative for fever. HENT: Positive for congestion, ear pain, hearing loss and postnasal drip. Respiratory: Positive for cough. Cardiovascular: Negative. Gastrointestinal: Negative. Genitourinary: Negative. Musculoskeletal: Negative. All other systems reviewed and are negative. PAST MEDICAL HISTORY Diagnosis Date Anxiety and depression [facility], Dr. Jimenez Excessive or frequent menstruation Heavy periods, resolved with OCP GERD (gastroesophageal reflux disease) Hypothyroid Non morbid obesity 10/12/2017 Current Outpatient Medications Medication Sig Dispense Refill predniSONE (DELTASONE) 20 mg tablet Take 2 tablets by mouth once daily for 5 days. 10 tablet 0 benzonatate (TESSALON PERLES) 100 mg capsule Take 2 capsules by mouth three times daily as needed. 30 capsule 0 trimethoprim-polymyxin (POLYTRIM) 10,000 unit- 1 mg/mL ophthalmic solution Use 2 Drops in both eyes every 4 hours for 7 days. 10 mL 0 esomeprazole (NEXIUM) 40 mg capsule Take 1 capsule by mouth twice daily. 1/2 hr before meal. 60 capsule 1 busPIRone (BUSPAR) 15 mg tablet Take 1 tablet by mouth three times daily. 90 tablet 5 FLUoxetine (PROZAC) 20 mg capsule Take 1 capsule by mouth once daily. 30 capsule 5 LINZESS 145 mcg capsule Take 1 capsule by mouth once daily. 30 capsule 5 tiZANidine (ZANAFLEX) 4 mg tablet Take 1 tablet by mouth every 8 hours as needed (muscle spasms). 60 tablet 5 albuterol HFA (VENTOLIN HFA) 90 mcg/actuation inhaler Inhale 2 Puffs as instructed every 4 hours as needed for wheezing/shortness of breath. 1 Inhaler 0 ondansetron orally disintegrating (ZOFRAN ODT) 4 mg disintegrating tablet Take 1 tablet by mouth every 6 hours as needed for nausea/vomiting. 12 tablet 0 levothyroxine (SYNTHROID) 50 mcg tablet Take 1 tablet by mouth once daily. 30 tablet 11 ferrous sulfate 325 mg (65 mg iron) tablet Take 1 tablet by mouth daily with breakfast. 90 tablet 1 METHYLPREDNISOLONE ACETATE (DEPO-MEDROL INJECTION) by INJECTION(UNSPECIFIED PARENTERAL ROUTES) route. amoxicillin (AMOXIL) 875 mg tablet Take 1 tablet by mouth twice daily for 7 days. 14 tablet 0 fluticasone (FLONASE) 50 mcg/actuation nasal spray Use 2 Sprays in each nostril once daily. Rinse mouth after use. 1 Each 0 No current facility-administered medications for this visit. PAST SURGICAL HISTORY Procedure Laterality Date COLONOSCOPY FLX DX W/COLLJ SPEC WHEN PFRMD 10/14/2017 Colonoscopy ESOPHAGOGASTRODUODENOSCOPY TRANSORAL DIAGNOSTIC 10/14/2017 EGD FAMILY HISTORY Problem Relation Age of Onset No Known Problems Mother other (does not know biological father) Father Lipids Maternal Grandfather Hypertension Maternal Grandfather Heart Maternal Uncle Diabetes Maternal Grandmother Hypertension Maternal Grandmother Social History Tobacco Use Smoking status: Every Day Packs/day: 0.50 Years: 5.00 Pack years: 2.50 Types: Cigarettes Start date: 05/04/2012 Smokeless tobacco: Never Tobacco comments: Vapes Substance Use Topics Alcohol use: No Drug use: No Objective BP 104/64 Pulse (!) 126 Temp 37.1 C (98.7 F) (Tympanic) Resp 18 Wt 108.8 kg (239 lb 12.8 oz) LMP 06/29/2016 SpO2 97% BMI 42.48 kg/m Physical Exam Vitals reviewed. Constitutional: Appearance: Normal appearance. HENT: Head: Normocephalic and atraumatic. Right Ear: Tympanic membrane, ear canal and external ear normal. Left Ear: Ear canal and external ear normal. No laceration. A middle ear effusion is present. Tympanic membrane is erythematous and bulging. Nose: Congestion present. Mouth/Throat: Mouth: Mucous membranes are moist. Pharynx: Oropharynx is clear. Cardiovascular: Rate and Rhythm: Normal rate and regular rhythm. Heart sounds: Normal heart sounds. Pulmonary: Effort: Pulmonary effort is normal. Breath sounds: Normal breath sounds. Musculoskeletal: Cervical back: Neck supple. Lymphadenopathy: Cervical: No cervical adenopathy. Skin: General: Skin is warm and dry. Neurological: General: No focal deficit present. Mental Status: She is alert. Assessment and Plan ASSESSMENT/PLAN: 1. Acute otitis media, left - ICD9: 382.9, ICD10: H66.92 - Will begin treatment with Amoxicillin for 7 days - Supportive care with plenty of fluids, rest, and analgesia prn. - Follow up in one week if symptoms persist or worsen. Ruth Vallejo PA-C documented in this encounter [facility] 02-02-2022 History of Presen t illness Narrative This note was created using [employer]. Subjective Janet Frank is a 22 year old female. HPI Patient presents with cough and congestion over the past 5 days. She has had eye drainage and redness over the past day. Her son has similar symptoms. No fever. No vomiting. Sometimes it does hurt in her chest when she coughs. No diarrhea. She did not do a home COVID test. Denies history of asthma. Review of Systems Constitutional: Negative for fever. HENT: Positive for congestion, rhinorrhea and sore throat. Negative for ear pain, sinus pressure and sinus pain. Respiratory: Positive for cough. Negative for shortness of breath. Gastrointestinal: Negative. Genitourinary: Negative. Musculoskeletal: Positive for myalgias. All other systems reviewed and are negative. PAST MEDICAL HISTORY Diagnosis Date Anxiety and depression [facility], Dr. Jimenez Excessive or frequent menstruation Heavy periods, resolved with OCP GERD (gastroesophageal reflux disease) Hypothyroid Non morbid obesity 10/12/2017 Current Outpatient Medications Medication Sig Dispense Refill busPIRone (BUSPAR) 15 mg tablet Take 1 tablet by mouth three times daily. 90 tablet 5 FLUoxetine (PROZAC) 20 mg capsule Take 1 capsule by mouth once daily. 30 capsule 5 LINZESS 145 mcg capsule Take 1 capsule by mouth once daily. 30 capsule 5 tiZANidine (ZANAFLEX) 4 mg tablet Take 1 tablet by mouth every 8 hours as needed (muscle spasms). 60 tablet 5 albuterol HFA (VENTOLIN HFA) 90 mcg/actuation inhaler Inhale 2 Puffs as instructed every 4 hours as needed for wheezing/shortness of breath. 1 Inhaler 0 ondansetron orally disintegrating (ZOFRAN ODT) 4 mg disintegrating tablet Take 1 tablet by mouth every 6 hours as needed for nausea/vomiting. 12 tablet 0 levothyroxine (SYNTHROID) 50 mcg tablet Take 1 tablet by mouth once daily. 30 tablet 11 ferrous sulfate 325 mg (65 mg iron) tablet Take 1 tablet by mouth daily with breakfast. 90 tablet 1 METHYLPREDNISOLONE ACETATE (DEPO-MEDROL INJECTION) by INJECTION(UNSPECIFIED PARENTERAL ROUTES) route. predniSONE (DELTASONE) 20 mg tablet Take 2 tablets by mouth once daily for 5 days. 10 tablet 0 benzonatate (TESSALON PERLES) 100 mg capsule Take 2 capsules by mouth three times daily as needed. 30 capsule 0 trimethoprim-polymyxin (POLYTRIM) 10,000 unit- 1 mg/mL ophthalmic solution Use 2 Drops in both eyes every 4 hours for 7 days. 10 mL 0 esomeprazole (NEXIUM) 40 mg capsule Take 1 capsule by mouth twice daily. 1/2 hr before meal. 60 capsule 1 No current facility-administered medications for this visit. PAST SURGICAL HISTORY Procedure Laterality Date COLONOSCOPY FLX DX W/COLLJ SPEC WHEN PFRMD 10/14/2017 Colonoscopy ESOPHAGOGASTRODUODENOSCOPY TRANSORAL DIAGNOSTIC 10/14/2017 EGD FAMILY HISTORY Problem Relation Age of Onset No Known Problems Mother other (does not know biological father) Father Lipids Maternal Grandfather Hypertension Maternal Grandfather Heart Maternal Uncle Diabetes Maternal Grandmother Hypertension Maternal Grandmother Social History Tobacco Use Smoking status: Every Day Packs/day: 0.50 Years: 5.00 Pack years: 2.50 Types: Cigarettes Start date: 05/04/2012 Smokeless tobacco: Never Tobacco comments: Vapes Substance Use Topics Alcohol use: No Drug use: No Objective BP 126/76 Pulse 99 Temp 37.1 C (98.7 F) Resp 20 Wt 108.7 kg (239 lb 9.6 oz) LMP 06/29/2016 SpO2 98% BMI 42.44 kg/m Physical Exam Vitals reviewed. Constitutional: Appearance: Normal appearance. HENT: Head: Normocephalic and atraumatic. Right Ear: Tympanic membrane, ear canal and external ear normal. Left Ear: Tympanic membrane, ear canal and external ear normal. Nose: Congestion present. Mouth/Throat: Mouth: Mucous membranes are moist. Pharynx: Oropharynx is clear. No oropharyngeal exudate or posterior oropharyngeal erythema. Eyes: General: Lids are normal. Right eye: Discharge present. No foreign body or hordeolum. Left eye: Discharge present.No foreign body or hordeolum. Extraocular Movements: Extraocular movements intact. Conjunctiva/sclera: Right eye: Right conjunctiva is injected. No chemosis. Left eye: Left conjunctiva is injected. No chemosis. Comments: No signs of orbital or periorbital cellulitis. Neurological: Mental Status: She is alert. Assessment and Plan ASSESSMENT/PLAN: 1. Viral URI with cough - ICD9: 465.9, ICD10: J06.9 - Discussed viral etiology and rationale for treatment. - Symptomatic treatment with prn analgesia - Supportive care with fluids and rest - Follow up in 3-5 days if symptoms persist or sooner if worsening of symptoms - COVID WITH FLUA+B, ROUTINE 2. Bacterial conjunctivitis - ICD9: 372.39, 041.9, ICD10: H10.9 - see medication orders - course and contagiousness issues discussed, including hand washing. - Instructed to call if high fever, development of periorbital redness or swelling, eye pain, visual changes, concerns or if symptoms persist. MELVIN Huber PA-C documented in this encounter [facility] 12-24-2021 History of Presen t illness Narrative This note was created using [employer]. Subjective Janet Frank is a 21 year old female. HPI Patient presents with left wrist pain for 2 months. 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 She denies injury or trauma. Sometimes she takes tylenol for pain. No weakness or numbness. She is left handed. Review of Systems Musculoskeletal: Left wrist pain All other systems reviewed and are negative. PAST MEDICAL HISTORY Diagnosis Date Anxiety and depression [facility], Dr. Jimenez Excessive or frequent menstruation Heavy periods, resolved with OCP GERD (gastroesophageal reflux disease) Hypothyroid Non morbid obesity 10/12/2017 Current Outpatient Medications Medication Sig Dispense Refill esomeprazole (NEXIUM) 40 mg capsule Take 1 capsule by mouth twice daily. 1/2 hr before meal. 60 capsule 1 busPIRone (BUSPAR) 15 mg tablet Take 1 tablet by mouth three times daily. 90 tablet 5 FLUoxetine (PROZAC) 20 mg capsule Take 1 capsule by mouth once daily. 30 capsule 5 LINZESS 145 mcg capsule Take 1 capsule by mouth once daily. 30 capsule 5 tiZANidine (ZANAFLEX) 4 mg tablet Take 1 tablet by mouth every 8 hours as needed (muscle spasms). 60 tablet 5 albuterol HFA (VENTOLIN HFA) 90 mcg/actuation inhaler Inhale 2 Puffs as instructed every 4 hours as needed for wheezing/shortness of breath. 1 Inhaler 0 ondansetron orally disintegrating (ZOFRAN ODT) 4 mg disintegrating tablet Take 1 tablet by mouth every 6 hours as needed for nausea/vomiting. 12 tablet 0 levothyroxine (SYNTHROID) 50 mcg tablet Take 1 tablet by mouth once daily. 30 tablet 11 ferrous sulfate 325 mg (65 mg iron) tablet Take 1 tablet by mouth daily with breakfast. 90 tablet 1 METHYLPREDNISOLONE ACETATE (DEPO-MEDROL INJECTION) by INJECTION(UNSPECIFIED PARENTERAL ROUTES) route. predniSONE (DELTASONE) 20 mg tablet Take 2 tablets by mouth once daily for 5 days. 10 tablet 0 No current facility-administered medications for this visit. PAST SURGICAL HISTORY Procedure Laterality Date COLONOSCOPY FLX DX W/COLLJ SPEC WHEN PFRMD 10/14/2017 Colonoscopy ESOPHAGOGASTRODUODENOSCOPY TRANSORAL DIAGNOSTIC 10/14/2017 EGD FAMILY HISTORY Problem Relation Age of Onset No Known Problems Mother other (does not know biological father) Father Lipids Maternal Grandfather Hypertension Maternal Grandfather Heart Maternal Uncle Diabetes Maternal Grandmother Hypertension Maternal Grandmother Social History Tobacco Use Smoking status: Every Day Packs/day: 0.50 Years: 5.00 Pack years: 2.50 Types: Cigarettes Start date: 05/04/2012 Smokeless tobacco: Never Tobacco comments: Vapes Substance Use Topics Alcohol use: No Drug use: No Objective BP 114/70 Pulse 107 Temp 36.6 C (97.8 F) Resp 18 Wt 107.6 kg (237 lb 3.2 oz) LMP 06/29/2016 SpO2 97% BMI 42.02 kg/m Physical Exam Vitals reviewed. Constitutional: Appearance: Normal appearance. HENT: Head: Normocephalic and atraumatic. Musculoskeletal: Comments: Exam of the left wrist reveal ttp to the distal ulna. No swelling or redness. Pain with pronation, flexion and extension. Radial pulse 2+. Normal hand grasp stength. Skin: General: Skin is warm and dry. Neurological: Mental Status: She is alert. Assessment and Plan ASSESSMENT/PLAN: 1. Left wrist pain - ICD9: 719.43, ICD10: M25.532 Xrays unremarkable. Likely tendonitis. Wrist cock up splint applied. Prednisone sent in. Ice, rest, if not helen rin 2 weeks follow up with pcp. - XR WRIST INJURY 4V PA/LAT/OBL/SCAPH LEFT Ruth Vallejo PA-C documented in this encounter [facility] 12-24-2021 History of Presen t illness Narrative Radiology Service Progress Note PATIENT NAME: Janet Frank DATE OF SERVICE: December 24, 2021 TIME: 2:25 PM PATIENT IDENTITY VERIFICATION COMPLETED USING TWO (2) IDENTIFIERS: Name and Date of confirmed by patient verbally. FALL SCREENING: Has the patient had 2 falls in the last year or 1 fall with injury or currently using an Ambulatory Assistive Device (Walker, Cane, Wheelchair, Crutches, etc.)? No PATIENT GENDER DATA: Female. status: : No status: NO. PATIENT RELEVANT IMPLANT DATA REVIEWED: Not Applicable RADIOLOGY DEPARTMENT: General X-ray: Exam(s) Completed: Upper Extremity X-Ray(s): Wrist, left PERIPHERAL IV DATA: Not applicable SIGNED BY: RT Denis(R) December 24, 2021 2:25 PM documented in this encounter [facility] 12-24-2021 Miscellaneous Notes Please review and advise pt. PT is out of medication. Madina Duke LPN Patient has been out of medication for past 3 days. documented in this encounter [facility] 12-05-2021 Miscellaneous Notes Pt notified and voiced understanding. Lyric Jaquez Ma Patient may take Prozac and Tizanidine together. Terrell Cloud APRN.CNP Janet Frank is calling Genie Jackson MD today asking if she can take the Prozac and tizanidine together? Please advise and return her call at [phone] documented in this encounter [facility] 11-27-2021 Miscellaneous Notes The following approved medication requests have been transmitted electronically. Pending Prescriptions Disp Refills BUSPIRONE 15 MG TABLET 90 tablet 5 Sig: Take 1 tablet by mouth three times daily. ROSA: No Terrell Cloud APRN.CNP Patient phones requesting refills as follows: Pending Prescriptions Disp Refills BUSPIRONE 15 MG TABLET 90 tablet 5 Sig: Take 1 tablet by mouth three times daily. ROSA: No MYRIAM-11/26/21 Labs-09/26/21 NOV-none med filled 04/23/21 Please review and advise. Jossy Raines LPN documented in this encounter [facility] 11-26-2021 History of Presen t illness Narrative Chief Complaint Patient presents with: Depression HPI:This Team Access Model visit is a virtual encounter. It required patient-provider interaction for the medical decision making as documented below. Patient was offered a virtual/telemedicine appointment in lieu of an office visit due to recommendations to reduce patient exposure to COVID-19. Patient is aware of limitations of performing the visit without a face to face visit in the office setting and agrees. Pt completing a virtual visit today due to depression. Pt c/o of suffering from depression. This is a chronic issue and has [facility]. Not currently doing any counseling. Pt currently taking Buspar 15 mg 1 tab po TID prn, which works well for her anxiety.. She is wondering about prozac or celexa for her depression. Lack of energy, no enjoyment, decreased sleep, flat affect. No suicidal thoughts; has had these in the past. Working at [employer] Thyroid: Taking Synthroid 50 mcg daily. TSH checked in September 2021 was 0.952. Past medical history, appointments, medications, allergies reviewed. Previous Medical History PAST MEDICAL HISTORY Diagnosis Date Anxiety and depression [facility], Dr. Jimenez Excessive or frequent menstruation Heavy periods, resolved with OCP GERD (gastroesophageal reflux disease) Hypothyroid Non morbid obesity 10/12/2017 Previous Surgical History PAST SURGICAL HISTORY Procedure Laterality Date COLONOSCOPY FLX DX W/COLLJ SPEC WHEN PFRMD 10/14/2017 Colonoscopy ESOPHAGOGASTRODUODENOSCOPY TRANSORAL DIAGNOSTIC 10/14/2017 EGD Family History FAMILY HISTORY Problem Relation Age of Onset No Known Problems Mother other (does not know biological father) Father Lipids Maternal Grandfather Hypertension Maternal Grandfather Heart Maternal Uncle Diabetes Maternal Grandmother Hypertension Maternal Grandmother Patient Allergies ALLERGIES No Known Allergies Current Medications Current Outpatient Medications on File Prior to Visit Medication Sig LINZESS 145 mcg capsule Take 1 capsule by mouth once daily. esomeprazole (NEXIUM) 40 mg capsule Take 1 capsule by mouth twice daily. 1/2 hr before meal. tiZANidine (ZANAFLEX) 4 mg tablet Take 1 tablet by mouth every 8 hours as needed (muscle spasms). albuterol HFA (VENTOLIN HFA) 90 mcg/actuation inhaler Inhale 2 Puffs as instructed every 4 hours as needed for wheezing/shortness of breath. ondansetron orally disintegrating (ZOFRAN ODT) 4 mg disintegrating tablet Take 1 tablet by mouth every 6 hours as needed for nausea/vomiting. busPIRone (BUSPAR) 15 mg tablet Take 1 tablet by mouth three times daily. levothyroxine (SYNTHROID) 50 mcg tablet Take 1 tablet by mouth once daily. ferrous sulfate 325 mg (65 mg iron) tablet Take 1 tablet by mouth daily with breakfast. METHYLPREDNISOLONE ACETATE (DEPO-MEDROL INJECTION) by INJECTION(UNSPECIFIED PARENTERAL ROUTES) route. No current facility-administered medications on file prior to visit. Social History Social History Tobacco Use Smoking status: Former Smoker Packs/day: 0.50 Years: 5.00 Pack years: 2.50 Types: Cigarettes Start date: 05/04/2012 Smokeless tobacco: Never Used Tobacco comment: Vapes Substance Use Topics Alcohol use: No Drug use: No EXAM: LMP 06/29/2016 Health Maintenance List MENINGOCOCCAL B: Consider based on risk(1 of 2 - Risk Bexsero 2-dose series) Never done GC (GONORRHEA) SCREENING (18-24) due on 12/20/2016 CHLAMYDIA SCREENING (18-24) due on 12/20/2016 DTAP,TDAP,TD(7 - Td or Tdap) due on 02/07/2019 COVID-19 VACCINE(2 - Pfizer series) due on 06/20/2021 INFLUENZA(1) due on 01/02/2022 DEPRESSION SCREENING due on 04/05/2022 ANNUAL PCP TEAM CHRONIC DISEASE VISIT due on 09/17/2022 PAP TESTING due on 12/21/2022 HPV VACCINE Completed HEPATITIS C SCREENING Completed HIV SCREENING Completed Data reviewed none ASSESSMENT/PLAN: 1. Recurrent major depressive disorder, remission status unspecified (HCC) - ICD9: 296.30, ICD10: F33.9 Start Prozac 20 mg daily, - FLUOXETINE 20 MG CAPSULE Follow up in 1 month Genie Jackson MD The documentation for this note was completed by Lyric Jaquez Ma acting as scribe for Genie Jackson MD. November 26, 2021 11:40 AM. Lyric Jaquez Ma documented in this encounter [facility] 09-25-2021 Miscellaneous Notes See pt message and advise. Annemarie Sotelo Ma documented in this encounter [facility] 09-25-2021 History of Presen t illness Narrative NEW VIRTUAL VISIT I had a virtual visit with Ms. Frank today for evaluation of GERD symptoms. Last EGD 10/2017 for GERD symptoms-erythematous duodenopathy gastritis nonsevere esophagitis Last colonoscopy 10/2017 for symptoms of constipation-entire colon was normal repeat colonoscopy for screening purposes at the age of 43 HISTORY: Taking Nexium 40 mg daily- She reports over the past few months she reports stomach pain, sore throat raspy increase burping, and coughing esophagus on fire and burping up acid. She reports taking nexium for 2 years - in the past she has been on omeprazole and that stopped working and that is why she is currently on Nexium. She reports taking Rolaids frequently. She reports recently been to the ENT and she was scoped and reports all her symptoms are d/t acid reflux. She reports drinking energy drinks daily 1-2 daily and water - PAST MEDICAL HISTORY Diagnosis Date Anxiety and depression [facility], Dr. Jimenez Excessive or frequent menstruation Heavy periods, resolved with OCP GERD (gastroesophageal reflux disease) Hypothyroid Non morbid obesity 10/12/2017 PAST SURGICAL HISTORY Procedure Laterality Date COLONOSCOPY FLX DX W/COLLJ SPEC WHEN PFRMD 10/14/2017 Colonoscopy ESOPHAGOGASTRODUODENOSCOPY TRANSORAL DIAGNOSTIC 10/14/2017 EGD FAMILY HISTORY Problem Relation Age of Onset No Known Problems Mother other (does not know biological father) Father Lipids Maternal Grandfather Hypertension Maternal Grandfather Heart Maternal Uncle Diabetes Maternal Grandmother Hypertension Maternal Grandmother Social History Tobacco Use Smoking status: Current Every Day Smoker Packs/day: 0.50 Years: 5.00 Pack years: 2.50 Types: Cigarettes Start date: 05/04/2012 Smokeless tobacco: Never Used Tobacco comment: Vapes Substance Use Topics Alcohol use: No Drug use: No Current Outpatient Medications Medication Sig Dispense Refill tiZANidine (ZANAFLEX) 4 mg tablet Take 1 tablet by mouth every 8 hours as needed (muscle spasms). 60 tablet 5 esomeprazole (NEXIUM) 40 mg capsule Take 1 capsule by mouth daily before breakfast. 1/2 hr before meal. 30 capsule 5 albuterol HFA (VENTOLIN HFA) 90 mcg/actuation inhaler Inhale 2 Puffs as instructed every 4 hours as needed for wheezing/shortness of breath. 1 Inhaler 0 ondansetron orally disintegrating (ZOFRAN ODT) 4 mg disintegrating tablet Take 1 tablet by mouth every 6 hours as needed for nausea/vomiting. 12 tablet 0 busPIRone (BUSPAR) 15 mg tablet Take 1 tablet by mouth three times daily. 90 tablet 5 LINZESS 145 mcg capsule Take 1 capsule by mouth once daily. 30 capsule 5 levothyroxine (SYNTHROID) 50 mcg tablet Take 1 tablet by mouth once daily. 30 tablet 11 ferrous sulfate 325 mg (65 mg iron) tablet Take 1 tablet by mouth daily with breakfast. 90 tablet 1 METHYLPREDNISOLONE ACETATE (DEPO-MEDROL INJECTION) by INJECTION(UNSPECIFIED PARENTERAL ROUTES) route. No current facility-administered medications for this visit. ALLERGIES No Known Allergies PHYSICAL FINDINGS OF NOTE: General Normal, healthy, cooperative, in no acute distress Able to interact verbally by video conference Psych ORIENTATION: normal to time place, person and situation Mood/Affect: AFFECT AND MOOD: Normal Head/Neuro Normal size and shape Facial appearance normal Pulmonary respiratory effort normal Abdominal Not performed Skin abnormal lesions not visualized Motor patient seen sitting with Normal appearing strength and coordination IMPRESSION (K21.9) Gastroesophageal reflux disease, unspecified whether esophagitis present RECOMMENDATION: Assessment/Plan (R14.2) Burping (primary encounter diagnosis) (K21.9) Gastroesophageal reflux disease, unspecified whether esophagitis present (R68.81) Early satiety (K21.9) GERD without esophagitis 1. Gastroesophageal reflux disease, unspecified whether esophagitis present esomeprazole (NEXIUM) 40 mg capsule; Take 1 capsule by mouth twice daily. 1/2 hr before meal. Dispense: 60 capsule; Refill: 1 - CONSULT TO GASTROENTEROLOGY - H PYLORI IGG [facility]; Future Avoid NSAIDs (such as Advil, Ibuprofen, Excedrin, Mobic), tobacco, alcohol, carbonated beverages, caffeine, chocolate, tomato based sauces, spicy/fatty foods, and peppermint Avoid eating large meals. Avoid eating less than 3 hours before bed. Weight loss. Elevate the head of the bed 6 inches, or at least invest in a wedge pillow. 2. Burping esomeprazole (NEXIUM) 40 mg capsule; Take 1 capsule by mouth twice daily. 1/2 hr before meal. Dispense: 60 capsule; Refill: 1 - H P[facility]I [facility]GG [facility]; Future Avoid NSAIDs (such as Advil, Ibuprofen, Excedrin, Mobic), tobacco, alcohol, carbonated beverages, caffeine, chocolate, tomato based sauces, spicy/fatty foods, and peppermint Avoid eating large meals. Avoid eating less than 3 hours before bed. Weight loss. Elevate the head of the bed 6 inches, or at least invest in a wedge pillow. 3. Early satiety esomeprazole (NEXIUM) 40 mg capsule; Take 1 capsule by mouth twice daily. 1/2 hr before meal. Dispense: 60 capsule; Refill: 1 Avoid NSAIDs (such as Advil, Ibuprofen, Excedrin, Mobic), tobacco, alcohol, carbonated beverages, caffeine, chocolate, tomato based sauces, spicy/fatty foods, and peppermint Avoid eating large meals. Avoid eating less than 3 hours before bed. Weight loss. Elevate the head of the bed 6 inches, or at least invest in a wedge pillow. 4. GERD without esophagitis - esomeprazole (NEXIUM) 40 mg capsule; Take 1 capsule by mouth twice daily. 1/2 hr before meal. Dispense: 60 capsule; Refill: 1 Avoid NSAIDs (such as Advil, Ibuprofen, Excedrin, Mobic), tobacco, alcohol, carbonated beverages, caffeine, chocolate, tomato based sauces, spicy/fatty foods, and peppermint Avoid eating large meals. Avoid eating less than 3 hours before bed. Weight loss. Elevate the head of the bed 6 inches, or at least invest in a wedge pillow. Follow up in office 3 months/PRN. Recommended to please call office/go to ER if fever, chills, chest pain, SOB, diarrhea, nausea, emesis, worsening abdominal pain, dehydration occurs I spent a total of 30 minutes on the date of the service which included preparing to see the patient, [id number] patient care, completing clinical documentation, obtaining and/or reviewing separately obtained history, performing a medically appropriate examination, counseling and educating the patient/family/caregiver, ordering medications, tests, or procedures, communicating with other HCPs (not separately reported), independently interpreting results (not separately reported), communicating results to the patient/family/caregiver, and care coordination (not separately reported). Cori Ramesh APRN.CIERRA documented in this encounter [facility] 09-19-2021 Miscellaneous Notes Patient notified of referral, verbalizes understanding of instructions. Jossy Raines LPN Ok tor refer as requested Genie Jackson MD Patient calls to request a referral to gastroenterology. Patient reports that she has acid indigestion with a lot of burning sensation and burping. Denies chest pain or shortness of breath. She reports that it is causing her to have a dry sore throat with itchy ear? She reports she has been treated for same symptoms with an antibiotic in the past with no relief. She had a scope done (2018) and was told it was because she has such bad GERD per patient. Currently taking Nexium daily with no missed doses and no relief. Order pended for review. Kendra Oviedo RN documented in this encounter [facility] 09-17-2021 History of Presen t illness Narrative Chief Complaint Patient presents with: Swollen Tonsils HPI Janet Frank is a 21 year old female who presents here today for Above Complaints.. Patient complains of: Foul smelling breath, enlarged tonsils Duration: Greater than 2 months Location:Throat Associated Symptoms: Foul breath, green discharge, occasional sore throat. Denies any neck pain, neck swelling, fevers, chills, dyspnea or lymph node swelling. Aggravating factors:nothing Things that improve symptoms :nothing HYPOTHYROID: Patient is compliant with medications: Yes Patient has changes in energy: No Patient has changes in hair or skin: No Patient has temperature intolerance: No Patient has weight changes: No Past medical history, appointments, medications, allergies reviewed. Previous Medical History PAST MEDICAL HISTORY Diagnosis Date Anxiety and depression [facility], Dr. Jimenez Excessive or frequent menstruation Heavy periods, resolved with OCP GERD (gastroesophageal reflux disease) Hypothyroid Non morbid obesity 10/12/2017 Previous Surgical History PAST SURGICAL HISTORY Procedure Laterality Date COLONOSCOPY FLX DX W/COLLJ SPEC WHEN PFRMD 10/14/2017 Colonoscopy ESOPHAGOGASTRODUODENOSCOPY TRANSORAL DIAGNOSTIC 10/14/2017 EGD Family History FAMILY HISTORY Problem Relation Age of Onset No Known Problems Mother other (does not know biological father) Father Lipids Maternal Grandfather Hypertension Maternal Grandfather Heart Maternal Uncle Diabetes Maternal Grandmother Hypertension Maternal Grandmother Patient Allergies ALLERGIES No Known Allergies Current Medications Current Outpatient Medications on File Prior to Visit Medication Sig tiZANidine (ZANAFLEX) 4 mg tablet Take 1 tablet by mouth every 8 hours as needed (muscle spasms). esomeprazole (NEXIUM) 40 mg capsule Take 1 capsule by mouth daily before breakfast. 1/2 hr before meal. ondansetron orally disintegrating (ZOFRAN ODT) 4 mg disintegrating tablet Take 1 tablet by mouth every 6 hours as needed for nausea/vomiting. busPIRone (BUSPAR) 15 mg tablet Take 1 tablet by mouth three times daily. LINZESS 145 mcg capsule Take 1 capsule by mouth once daily. levothyroxine (SYNTHROID) 50 mcg tablet Take 1 tablet by mouth once daily. ferrous sulfate 325 mg (65 mg iron) tablet Take 1 tablet by mouth daily with breakfast. albuterol HFA (VENTOLIN HFA) 90 mcg/actuation inhaler Inhale 2 Puffs as instructed every 4 hours as needed for wheezing/shortness of breath. METHYLPREDNISOLONE ACETATE (DEPO-MEDROL INJECTION) by INJECTION(UNSPECIFIED PARENTERAL ROUTES) route. No current facility-administered medications on file prior to visit. Social History Social History Tobacco Use Smoking status: Current Every Day Smoker Packs/day: 0.50 Years: 5.00 Pack years: 2.50 Types: Cigarettes Start date: 05/04/2012 Smokeless tobacco: Never Used Tobacco comment: Vapes Substance Use Topics Alcohol use: No Drug use: No REVIEW OF SYSTEMS: as above Reviewed relevant PMHx, PSHx, Social Hx, current medications and allergies. EXAM: BP 112/80 Pulse 88 Temp 37.4 C (99.3 F) (Left Tympanic) Resp 16 Wt 107 kg (236 lb) LMP 06/29/2016 BMI 41.81 kg/m General Appearance: Well appearing, alert, in no acute distress, well-hydrated, well nourished. and Overweight. Head: Normocephalic, no masses, lesions, tenderness or abnormalities. Nose/Sinuses: Nares normal, septum midline, mucosa normal, no drainage or sinus tenderness. Oropharynx: Positive findings: tonsillar hypertrophy 2+. Neck: Supple, no adenopathy; thyroid symmetric, normal size Health Maintenance List MENINGOCOCCAL B: Consider based on risk(1 of 2 - Risk Bexsero 2-dose series) Never done GC (GONORRHEA) SCREENING (18-24) due on 12/20/2016 CHLAMYDIA SCREENING (18-24) due on 12/20/2016 ONE PNEUMOVAX PRIOR TO AGE 65 Never done DTAP,TDAP,TD(7 - Td or Tdap) due on 02/07/2019 COVID-19 VACCINE(2 - Pfizer series) due on 06/20/2021 INFLUENZA(Season Ended) due on 01/02/2022 DEPRESSION SCREENING due on 04/05/2022 ANNUAL PCP TEAM CHRONIC DISEASE VISIT due on 06/07/2022 PAP TESTING due on 12/21/2022 HPV VACCINE Completed HEPATITIS C SCREENING Completed HIV SCREENING Completed MENINGOCOCCAL CONJUGATE Aged Out ASSESSMENT/PLAN: 1. Tonsil stone - ICD9: 474.8, ICD10: J35.8 (primary diagnosis) - No evidence of peritonsillar abscess. Discussed red flags that would deem need for her to go to the ER. She has a patient relationship with Dr Ybarra at [facility]. She will call to schedule an appointment at their clinic. Check CBC. - CONSULT TO ENT 2. Hypothyroidism, unspecified type - ICD9: 244.9, ICD10: E03.9 - Instructed patient on importance of taking on an empty stomach either first thing in the morning or at bedtime. - check TSH today - continue current dose of Synthroid 0.050 mg Terrell Cloud APRN.SENIOR ELECT[employer]ICS ENGINEER This note was partly generated using Gatheredtable voice recognition dictation and may contain some misspelled or inaccurate words missed on review. documented in this encounter [facility] 08-23-2021 Miscellaneous Notes Pt notified via mychart that she is not able to restart Adipex until October 2021. Last rx given in Apr 2021. Also notified she would need an appointment to discuss restarting the medication. Lyric Jaquez Ma documented in this encounter [facility] 08-09-2021 Miscellaneous Notes The following approved medication requests have been transmitted electronically. Signed Prescriptions Disp Refills tiZANidine (ZANAFLEX) 4 mg tablet 60 tablet 5 Sig: Take 1 tablet by mouth every 8 hours as needed (muscle spasms). ROSA: No Authorizing Provider: GENIE JACKSON Cma OK to refill as ordered Genie Jackson MD [facility] 06/07/21 NOV 08/13/21 Hope Briggs Ma Patient has been identified by name and date of : Yes Pending Prescriptions Disp Refills TIZANIDINE 4 MG TABLET 30 tablet 2 Sig: Take 1 tablet by mouth every 8 hours as needed (muscle spasms). ROSA: No RX INSTRUCTIONS: She said, Normally she takes 2 pills per day, especially if headaches are bad, so she is out of refills. She needs today. Patient aware RX will be sent to pharmacy. No need to notify patient. Hanna Corcoran Pss documented in this encounter [facility] 07-23-2016 History of Past i llness Narrative Problem Noted Date Resolved Date Physical exam 07/23/2016 10/12/2017 documented as of this encounter (statuses as of 08/09/2021) [address]22-2017 History of Past illness Narrative* Problem Noted Date Resolved Date Physical exam 07/23/2016 10/12/2017 documented as of this encounter (statuses as of 08/23/2021) [address]-2017 History of Past illness Narrative* Problem Noted Date Resolved Date Physical exam 07/23/2016 10/12/2017 documented as of this encounter (statuses as of 09/17/2021) [address]2017 History of Past illness Narrative* Problem Noted Date Resolved Date Physical exam 07/23/2016 10/12/2017 documented as of this encounter (statuses as of 10/01/2021) [address]-2017 History of Past illness Narrative* Problem Noted Date Resolved Date Physical exam 07/23/2016 10/12/2017 documented as of this encounter (statuses as of 10/08/2021) [address]2017 History of Past illness Narrative* Problem Noted Date Resolved Date Physical exam 07/23/2016 10/12/2017 documented as of this encounter (statuses as of 11/26/2021) [address]-2017 History of Past illness Narrative* Problem Noted Date Resolved Date Physical exam 07/23/2016 10/12/2017 documented as of this encounter (statuses as of 11/27/2021) [address]-2017 History of Past illness Narrative* Problem Noted Date Resolved Date Physical exam 07/23/2016 10/12/2017 documented as of this encounter (statuses as of 12/05/2021) [address]2017 History of Past illness Narrative* Problem Noted Date Resolved Date Physical exam 07/23/2016 10/12/2017 documented as of this encounter (statuses as of 12/19/2021) [address]2017 History of Past illness Narrative* Problem Noted Date Resolved Date Physical exam 07/23/2016 10/12/2017 documented as of this encounter (statuses as of 12/20/2021) [address]-2017 History of Past illness Narrative* Problem Noted Date Resolved Date Physical exam 07/23/2016 10/12/2017 documented as of this encounter (statuses as of 12/24/2021) [address]2017 History of Past illness Narrative* Problem Noted Date Resolved Date Physical exam 07/23/2016 10/12/2017 documented as of this encounter (statuses as of 12/24/2021) [address]-2017 History of Past illness Narrative* Problem Noted Date Resolved Date Physical exam 07/23/2016 10/12/2017 documented as of this encounter (statuses as of 02/02/2022) [address]2017 History of Past illness Narrative* Problem Noted Date Resolved Date Physical exam 07/23/2016 10/12/2017 documented as of this encounter (statuses as of 02/05/2022) [address]2017 History of Past illness Narrative* Problem Noted Date Resolved Date Physical exam 07/23/2016 10/12/2017 documented as of this encounter (statuses as of 02/12/2022) [address]2017 History of Past illness Narrative* Problem Noted Date Resolved Date Physical exam 07/23/2016 10/12/2017 documented as of this encounter (statuses as of 02/17/2022) [address]2017 History of Past illness Narrative* Problem Noted Date Resolved Date Physical exam 07/23/2016 10/12/2017 documented as of this encounter (statuses as of 03/07/2022) [address]2017 History of Past illness Narrative* Problem Noted Date Resolved Date Physical exam 07/23/2016 10/12/2017 documented as of this encounter (statuses as of 05/09/2022) [address]2017 History of Past illness Narrative* Problem Noted Date Resolved Date Physical exam 07/23/2016 10/12/2017 documented as of this encounter (statuses as of 07/23/2022) [address]2017 History of Past illness Narrative* Problem Noted Date Resolved Date Physical exam 07/23/2016 10/12/2017 documented as of this encounter (statuses as of 07/23/2022) [address]2017 History of Past illness Narrative* Problem Noted Date Resolved Date Physical exam 07/23/2016 10/12/2017 documented as of this encounter (statuses as of 07/29/2022) [address]2017 History of Past illness Narrative* Problem Noted Date Resolved Date Physical exam 07/23/2016 10/12/2017 documented as of this encounter (statuses as of 08/26/2022) [address] History of Past illness Narrative* Problem Noted Date Resolved Date Physical exam 07/23/2016 10/12/2017 documented as of this encounter (statuses as of 09/06/2022) [address]2017 History of Past illness Narrative* Problem Noted Date Resolved Date Physical exam 07/23/2016 10/12/2017 documented as of this encounter (statuses as of 10/01/2022) [address]2017 History of Past illness Narrative* Problem Noted Date Resolved Date Physical exam 07/23/2016 10/12/2017 documented as of this encounter (statuses as of 10/02/2022) [address]2017 History of Past illness Narrative* Problem Noted Date Diagnosed Date Resolved Date Physical exam 07/23/2016 10/12/2017 documented as of this encounter (statuses as of 01/14/2023) [address]2017 History of Past illness Narrative* Problem Noted Date Diagnosed Date Resolved Date Physical exam 07/23/2016 10/12/2017 documented as of this encounter (statuses as of 03/27/2023) [address]2017 History of Past illness Narrative* Problem Noted Date Diagnosed Date Resolved Date Physical exam 07/23/2016 10/12/2017 documented as of this encounter (statuses as of 04/02/2023) [address]-2017 History of Past illness Narrative* Problem Noted Date Diagnosed Date Resolved Date Physical exam 07/23/2016 10/12/2017 documented as of this encounter (statuses as of 06/12/2023) [address] History of Past illness Narrative* Problem Noted Date Diagnosed Date Resolved Date Physical exam 07/23/2016 10/12/2017 documented as of this encounter (statuses as of 06/16/2023) [address] History of Past illness Narrative* Problem Noted Date Diagnosed Date Resolved Date Physical exam 07/23/2016 10/12/2017 documented as of this encounter (statuses as of 06/17/2023) [address] History of Past illness Narrative* Problem Noted Date Diagnosed Date Resolved Date Physical exam 07/23/2016 10/12/2017 documented as of this encounter (statuses as of 06/18/2023) [facility]2017 History of Past illness Narrative* Problem Noted Date Diagnosed Date Resolved Date Physical exam 07/23/2016 10/12/2017 documented as of this encounter (statuses as of 07/02/2023) [facility] History of Past illness Narrative* Problem Noted Date Diagnosed Date Resolved Date Physical exam 07/23/2016 10/12/2017 documented as of this encounter (statuses as of 07/23/2023) [facility] History of Past illness Narrative* Problem Noted Date Diagnosed Date Resolved Date Physical exam 07/23/2016 10/12/2017 documented as of this encounter (statuses as of 07/23/2023) [facility] + Plan note No data available for this section [facility] Evaluation note* Diagnosis Tension headache documented in this encounter [facility] note* Diagnosis Tonsil stone- Primary Other chronic disease of tonsils and adenoids Hypothyroidism, unspecified type documented in this encounter [facility] note* Diagnosis Fatigue, unspecified type- Primary documented in this encounter [facility] note* Diagnosis Burping- Primary Flatulence, eructation, and gas pain Gastroesophageal reflux disease, unspecified whether esophagitis present Early satiety GERD without esophagitis Esophageal reflux documented in this encounter [facility] note* Diagnosis Recurrent major depressive disorder, remission status unspecified (HCC)- Primary documented in this encounter [facility] note* Diagnosis RUDOLPH (generalized anxiety disorder) Generalized anxiety disorder Panic attack Panic disorder without agoraphobia documented in this encounter [facility] note* Diagnosis Gastroesophageal reflux disease, unspecified whether esophagitis present- Primary documented in this encounter [facility] note* Diagnosis GERD without esophagitis Esophageal reflux documented in this encounter [facility] note* Diagnosis GERD without esophagitis Esophageal reflux documented in this encounter [facility] note* Diagnosis Left wrist pain- Primary Pain in joint, forearm documented in this encounter [facility] note* Diagnosis Viral URI with cough- Primary Acute upper respiratory infections of unspecified site Bacterial conjunctivitis Other conjunctivitis documented in this encounter [facility] note* Diagnosis Acute otitis media, left- Primary Unspecified otitis media documented in this encounter [facility] note* Diagnosis Frontal sinus pain- Primary Other diseases of nasal cavity and sinuses Left ear pain Otalgia, unspecified [facility]* Diagnosis GERD without esophagitis Esophageal reflux documented in this encounter [facility] noteNo assessment information [facility] note* Diagnosis Recurrent major depressive disorder, remission status unspecified (HCC) documented in this encounter [facility] note* Diagnosis GERD without esophagitis Esophageal reflux documented in this encounter [facility] note* Diagnosis RUDOLPH (generalized anxiety disorder) Generalized anxiety disorder Panic attack Panic disorder without agoraphobia documented in this encounter [facility] note* Diagnosis RUDOLPH (generalized anxiety disorder) Generalized anxiety disorder Panic attack Panic disorder without agoraphobia documented in this encounter [facility] note* Diagnosis Hypokalemia- Primary Hypopotassemia Nausea and vomiting, unspecified vomiting type Hospital discharge follow-up Other follow-up examination Paresthesia Disturbance of skin sensation Hand pain, left Pain in limb documented in this encounter [facility] note* Diagnosis Confusion- Primary Unspecified psychosis documented in this encounter [facility] note* Diagnosis Acute UTI- Primary Urinary tract infection, site not specified documented in this encounter [facility] note* Diagnosis Chronic constipation Unspecified constipation documented in this encounter [facility] note* Diagnosis Hypothyroidism, unspecified type documented in this encounter [facility] note* Diagnosis RUDOLPH (generalized anxiety disorder) Generalized anxiety disorder Panic attack Panic disorder without agoraphobia documented in this encounter [facility] note* Diagnosis Irregular menses- Primary Irregular menstrual cycle Vaginal bleeding Other specified noninflammatory disorder of vagina documented [facility] this encounter [facility]* Diagnosis Visual disturbance- Primary Unspecified visual disturbance Dizziness Dizziness and giddiness Headache, unspecified headache type documented in this encounter [facility] note* Diagnosis Recurrent major depressive disorder, remission status unspecified (HCC) documented [facility]* Diagnosis Recurrent major depressive disorder, remission status unspecified (HCC) documented in this encounter [facility] note* Diagnosis Nipple pain- Primary Mastodynia Ear pain, bilateral [facility]* Diagnosis Irregular menses- Primary Irregular menstrual cycle Acquired hypothyroidism Unspecified hypothyroidism Class II obesity Menorrhagia with irregular cycle Excessive or frequent menstruation Dysmenorrhea documented [facility] this [facility]* Diagnosis Encounter for gynecological examination (general) (routine) without abnormal findings- Primary Screening for cervical cancer Screening for malignant neoplasm of the cervix Encounter for screening for human papillomavirus (HPV) Special screening examination for human papillomavirus (HPV) [facility]* Diagnosis Chronic constipation Unspecified constipation [facility]* Diagnosis Chronic constipation Unspecified constipation documented in this encounter [facility] note* Diagnosis RUDOLPH (generalized anxiety disorder) Generalized anxiety disorder Panic attack Panic disorder without agoraphobia documented [facility]* Diagnosis Irregular menses- Primary Irregular menstrual cycle Class II obesity Menorrhagia with irregular cycle Excessive or frequent menstruation Dysmenorrhea Adenomyosis of the uterus documented [facility] this [facility]* Diagnosis Adenomyosis- Primary Endometriosis of uterus [facility]* Diagnosis RUDOLPH (generalized anxiety disorder) Generalized anxiety disorder Panic attack Panic disorder without agoraphobia [facility]* Diagnosis Recurrent major depressive disorder, remission status unspecified (HCC) RUDOLPH (generalized anxiety disorder) Generalized anxiety disorder Panic attack Panic disorder without agoraphobia [facility]* Diagnosis RUDOLPH (generalized anxiety disorder) Generalized anxiety disorder Panic attack Panic disorder without agoraphobia Recurrent major depressive disorder, remission status unspecified (HCC) documented [facility]* Diagnosis Recurrent major depressive disorder, remission status unspecified (HCC) Wellness examination- Primary Chronic constipation Unspecified constipation Hypothyroidism, unspecified type Anxiety with depression Gastroesophageal reflux disease, unspecified whether esophagitis present [facility]* Diagnosis Encounter for contraceptive management, unspecified type Anxiety with depression Chronic constipation Unspecified constipation Hypothyroidism, unspecified type Gastroesophageal reflux disease, unspecified whether esophagitis present documented [facility]* Diagnosis Left wrist pain Pain in joint, forearm [facility]* Diagnosis Anxiety with depression [facility]* Diagnosis Hypothyroidism, unspecified type documented in this encounter [facility] note* Diagnosis Sore throat- Primary Acute pharyngitis Viral illness Unspecified viral infection, in conditions classified elsewhere and of unspecified site documented in this encounter [facility] note* Diagnosis Encounter for preconception consultation- Primary Other procreative management counseling and advice documented in this encounter [facility] note* Diagnosis Tension headache- Primary documented in this encounter [facility] note* Diagnosis Anxiety with depression- Primary documented in this encounter [facility] note* Diagnosis Anxiety with depression- Primary documented in this encounter [facility] note* Diagnosis Missed menses- Primary Absence of menstruation Nausea and vomiting during 6 weeks gestation of state, incidental * Assessment & Plan Note - Roxana Fry APRN.CNM - 07/20/2024 1:31 PM EDT Associated Problem(s): 6 weeks gestation of - Urine HCG - positive - Initially was ordering Reglan but interaction with patient's current medications * Assessment & Plan Note - Roxana Fry APRN.CNM - 07/20/2024 1:30 PM EDT Associated Problem(s): Nausea and vomiting during documented in this encounter [facility] note* Diagnosis Missed menses- Primary Absence of menstruation Nausea and vomiting during (HCC) 6 weeks gestation of ([facility]) state, incidental Encounter for supervision of normal intrauterine in multigravida, antepartum (HCC)- Primary with uncertain dates, antepartum ([facility]) state, incidental History of hemorrhage Personal history of diseases of blood and blood-forming organs Screen for STD (sexually transmitted disease) Screening examination for venereal disease 8 weeks gestation of ([facility]) state, incidental Hx of preeclampsia, prior , currently ([facility]) with other poor obstetric history Hypothyroidism, unspecified type BMI 38.0-38.9,adult Body Mass Index 38.0-38.9, adult documented [facility]* Diagnosis Missed menses- Primary Absence of menstruation Nausea and vomiting during (HCC) 6 weeks gestation of ([facility]) state, incidental Trichomoniasis- Primary Trichomoniasis, unspecified documented [facility]* Diagnosis Missed menses- Primary Absence of menstruation Nausea and vomiting during ([facility]) 6 weeks gestation of ([facility]) state, incidental RUDOLPH (generalized anxiety disorder)- Primary Generalized anxiety disorder Panic attack Panic disorder without agoraphobia Chronic constipation Unspecified constipation documented [facility]* Diagnosis Missed menses- Primary Absence of menstruation Nausea and vomiting during ([facility]) 6 weeks gestation of ([facility]) state, incidental Encounter for screening for malformation using ultrasound ([facility])- Primary 12 weeks gestation of ([facility]) state, incidental Encounter for (NT) nuchal translucency scan ([facility]) Other specified screening documented in this encounter [facility] note* Diagnosis Missed menses- Primary Absence of menstruation Nausea and vomiting during ([facility]) 6 weeks gestation of ([facility]) state, incidental Supervision of other high risk pregnancies, second trimester ([facility])- Primary 12 weeks gestation of ([facility]) state, incidental Obesity in ([facility]) Obesity complicating , childbirth, or the puerperium, unspecified as to episode of care or not applicable Rubella non-immune status, antepartum ([facility]) Other specified complication, antepartum Hx of preeclampsia, prior , currently ([facility]) with other poor obstetric history History of hemorrhage Personal history of diseases of blood and blood-forming organs Hypothyroidism, unspecified type Engages in nicotine containing substance vaping Anxiety and depression Dysthymic disorder Trichomoniasis Trichomoniasis, unspecified documented [facility]* Diagnosis Missed menses- Primary Absence of menstruation Nausea and vomiting during ([facility]) 6 weeks gestation of ([facility]) state, incidental RUDOLPH (generalized anxiety disorder) Generalized anxiety disorder Panic attack Panic disorder without agoraphobia documented [facility]* Diagnosis Missed menses- Primary Absence of menstruation Nausea and vomiting during (HCC) 6 weeks gestation of (HCC) state, incidental RUDOLPH (generalized anxiety disorder) Generalized anxiety disorder Panic attack Panic disorder without agoraphobia [facility] Diagnosis Supervision of other high risk pregnancies, second trimester ([facility])- Primary Hx of preeclampsia, prior , currently (HCC) with other poor obstetric history Obesity in ([facility]) Obesity complicating , childbirth, or the puerperium, unspecified as to episode of care or not applicable Hypothyroidism, unspecified type 16 weeks gestation of (HCC) state, incidental Trichomoniasis Trichomoniasis, unspecified Screen for STD (sexually transmitted disease) Screening examination for venereal disease * Assessment & Plan Note - Emmanuel Hess MD - 09/29/2024 12:04 PM EDT Associated Problem(s): Supervision of other high risk pregnancies, second trimester ([facility]) Orders: TRICHOMONAS VAGINALIS NAAT GONORRHEA/CHLAMYDIA NAAT CONSULT TO ENDOCRINOLOGY; Future OBSTETRIC ULTRASOUND WHI; Standing * Assessment & Plan Note - Emmanuel Hess MD - 09/29/2024 12:04 PM EDT Associated Problem(s): Hx of preeclampsia, prior , currently ([facility]) Orders: OBSTETRIC ULTRASOUND WHI; Standing * Assessment & Plan Note - Emmanuel Hess MD - 09/29/2024 12:04 PM EDT Associated Problem(s): Obesity in ([facility]) counseled on wt gain Orders: OBSTETRIC ULTRASOUND WHI; Standing * Assessment & Plan Note - Emmanuel Hess MD - 09/29/2024 12:04 PM EDT Associated Problem(s): Hypothyroidism increased syntrhoid to 62.5 mg daily, rx sent Orders: CONSULT TO ENDOCRINOLOGY; Future OBSTETRIC ULTRASOUND WHI; Standing * Assessment & Plan Note - Emmanuel Hess MD - 09/29/2024 12:04 PM EDT Associated Problem(s): Trichomoniasis Orders: TRICHOMONAS VAGINALIS NAAT GONORRHEA/CHLAMYDIA NAAT documented in this encounter [facility] note* Diagnosis Rubella non-immune status, antepartum (HCC)- Primary Other specified complication, antepartum Supervision of other high risk pregnancies, second trimester ([facility])- Primary Hx of preeclampsia, prior , currently ([facility]) with other poor obstetric history Obesity in ([facility]) Obesity complicating , childbirth, or the puerperium, unspecified as to episode of care or not applicable Hypothyroidism, unspecified type 16 weeks gestation of ([facility]) state, incidental Trichomoniasis Trichomoniasis, unspecified Screen for STD (sexually transmitted disease) Screening examination for venereal disease documented in this encounter [facility] note* Diagnosis Supervision of other high risk pregnancies, second trimester ([facility])- Primary Hx of preeclampsia, prior , currently ([facility]) with other poor obstetric history Obesity in ([facility]) Obesity complicating , childbirth, or the puerperium, unspecified as to episode of care or not applicable Hypothyroidism, unspecified type 16 weeks gestation of (HCC) state, incidental Trichomoniasis Trichomoniasis, unspecified Screen for STD (sexually transmitted disease) Screening examination for venereal disease Encounter for screening for malformation ([facility])- Primary Supervision of other high risk pregnancies, second trimester ([facility]) Hx of preeclampsia, prior , currently (HCC) with other poor obstetric history Obesity in (HCC) Obesity complicating , childbirth, or the puerperium, unspecified as to episode of care or not applicable Hypothyroidism, unspecified type documented [facility]* Diagnosis Supervision of other high risk pregnancies, second trimester (HCC)- Primary Hx of preeclampsia, prior , currently (HCC) with other poor obstetric history Obesity in (HCC) Obesity complicating , childbirth, or the puerperium, unspecified as to episode of care or not applicable Hypothyroidism, unspecified type 16 weeks gestation of (HCC) state, incidental Trichomoniasis Trichomoniasis, unspecified Screen for STD (sexually transmitted disease) Screening examination for venereal disease Supervision of other high risk pregnancies, second trimester (HCC)- Primary Obesity in (HCC) Obesity complicating , childbirth, or the puerperium, unspecified as to episode of care or not applicable Hypothyroidism, unspecified type Hx of preeclampsia, prior , currently (HCC) with other poor obstetric history 20 weeks gestation of ([facility]) state, incidental [facility]* Diagnosis Supervision of other high risk pregnancies, second trimester (HCC)- Primary Hx of preeclampsia, prior , currently ([facility]) with other poor obstetric history Obesity in (HCC) Obesity complicating , childbirth, or the puerperium, unspecified as to episode of care or not applicable Hypothyroidism, unspecified type 16 weeks gestation of ([facility]) state, incidental Trichomoniasis Trichomoniasis, unspecified Screen for STD (sexually transmitted disease) Screening examination for venereal disease Obesity in (HCC)- Primary Obesity complicating , childbirth, or the puerperium, unspecified as to episode of care or not applicable 8 weeks gestation of ([facility]) state, incidental [facility] Additional Instructions Motrin and Tylenol for pain. Your labs are unremarkable. Your CAT scan showed swollen lymph nodes. This should improve over time. If not follow-up with your doctor. No signs of colitis.[facility] Work Phone: Hospital Discharge instructions Additional Instructions Take your potassium supplements. Please follow-up with your PCP.[facility] Work Phone: Reason for referral (narrative)* Diagnostic Procedure Only (Urgent) - Closed Specialty Diagnoses / Procedures Referred By Contac t Referred To Contact XR IMAGING Diagnoses Left wrist pain Procedures XR WRIST INJURY 4V PA/LAT/OBL/SCAPH LEFT RADEX WRIST COMPLETE MINIMUM 3 VIEWS Ruth Vallejo PA-C [address] [place] [address] Xr Imaging Referral ID Status Reason Start Date Expiration Date V isits Requested Visits Authorized [id number] Closed Auto-Generate d Referral 12/24/2021 01/23/2023 1 1 [facility] for referral (narrative)* Diagnostic Procedure Only (Routine) - Pending Review Specialty Diagnoses / Procedures Referred By Contac t Referred To Contact [facility] Diagnoses Irregular menses Class II obesity Menorrhagia with irregular cycle Dysmenorrhea Procedures PELVIC US WHI US PELVIC NONOBSTETRIC REAL-TIME IMAGE COMPLETE Rohan Yoon MD [id number] [place] [id number] [facility] [place] [id number] Referral ID Status Reason Start Date Expiration Date Visits Requested Visits Authorized [id number] Pending Review Auto-Generat ed Referral 11/04/2023 11/03/2024 1 1 [facility] for referral (narrative)* Diagnostic Procedure Only (Urgent) - Closed Specialty Diagnoses / Procedures Referred By Contac t Referred To Contact XR IMAGING Diagnoses Left wrist pain Procedures XR WRIST INJURY 4V PA/LAT/OBL/SCAPH LEFT RADEX WRIST COMPLETE MINIMUM 3 VIEWS Ruth Vallejo PA-C [address] [place] [address] [place] [address] Referral ID Status Reason Start Date Expiration Date V isits Requested Visits Authorized [id number] Closed Auto-Generate d Referral 12/24/2021 01/23/2023 1 1 [facility] for visit Narrative* Diagnostic Procedure Only (Routine) - Closed Specialty Diagnoses / Procedures Referred By Susan t Referred To Contact [facility] Diagnoses Irregular menses Class II obesity Menorrhagia with irregular cycle Dysmenorrhea Procedures PELVIC US WHI US PELVIC NONOBSTETRIC REAL-TIME IMAGE COMPLETE Rohan Yoon MD [address] [place] [address] [facility] [address] [place] [address] Referral ID Status Reason Start Date Expiration Date V isits Requested Visits Authorized [id number] Closed Auto-Generate d Referral 11/12/2023 05/03/2024 1 1 [facility] for visit Narrative* Diagnostic Procedure Only (Urgent) - Closed Specialty Diagnoses / Procedures Referred By Susan montague Referred To Contact XR IMAGING Diagnoses Left wrist pain Procedures XR WRIST INJURY 4V PA/LAT/OBL/SCAPH LEFT RADEX WRIST COMPLETE MINIMUM 3 VIEWS Ruth Vallejo PA-C [address] [place] [address] [place] [address] Referral ID Status Reason Start Date Expiration Date V isits Requested Visits Authorized [id number] Closed Auto-Generate d Referral 12/24/2021 01/23/2023 1 1 [facility] Summary Purpose Family History Relationship Condition Age at Onset Recorded Date/T radha Unknown Family History?No pertinent history Unkno wn September 27, 2017 4:53am Family History?No pertinent history Unkno wn September 27, 2017 4:53am Relationship Condition Age at Onset Recorded Date/T radha Unknown Family History?No pertinent history Unkno wn September 27, 2017 3:53am Family History?No pertinent history Unkno wn September 27, 2017 3:53am Advance Directives Documents on File Type Date Recorded 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 Expl anation Advance Directive(s) 10/14/2017 12:25 PM Documents on File Type Date Recorded 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 Expl anation Advance Directive(s) 10/14/2017 12:25 PM Advance Directive Response Recorded Date/ Time Living Will No March 02 9:26pm Power of Baggage Agent Supervisor No March 02, 2022 9:26pm Advance Directive Response Recorded Date/ Time Living Will No June 30 023 9:09am Power of Baggage Agent Supervisor No June 30, 2022 9:09am Advance Directive Response Recorded Date/ Time Living Will No September 06, 2022 2: 13pm Power of Baggage Agent Supervisor No September 06, 2022 2:13pm Advance Directive Response Recorded Date/ Time Living Will No June 024 11:14am Power of Baggage Agent Supervisor No July 02, 2023 11:14am Reason for Referral Specialty Diagnoses / Procedures Referred By Contduc t Referred To Contact Ent - Otolaryngology Diagnoses Tonsil stone Procedures CONSULT TO [facility] OFFICE/[facility] 60-74 MINUTES Terrell Cloud APRN.SENIOR ELECTRONICS ENGINEER [address] [place] [address] Referral ID Status Reason Start Date Expiration Date Visits Requested Visits Authorized [id number] Pending Review PCP Requested Referral 09/17/2021 09/17/2022 1 1 Specialty Diagnoses / Procedures Referred By Contac t Referred To Contact Gastroenterology Diagnoses Gastroesophageal reflux disease, unspecified whether esophagitis present Procedures CONSULT TO [facility]STROENTEROLOGY OFFICE/[facility] 60-74 MINUTES Genie Jackson MD [address] [place] [address] Referral ID Status Reason Start Date Expiration Date Visits Requested Visits Authorized [id number] Pending Review PCP Requested Referral 09/19/2021 09/19/2022 1 1 Specialty Diagnoses / Procedures Referred By Contac t Referred To Contact [facility] Diagnoses Paresthesia Hand pain, left Procedures EMG(NEURO/NI) NERVE CONDUCTION STUDIES 9-10 STUDIES Terrell Cloud APRN.SENIOR ELECTRONICS ENGINEER [address] [place] [address] [facility] [place] [address] [place] [address] Referral ID Status Reason Start Date Expiration Date Visits Requested Visits Authorized [id number] Authorized Auto-Generat ed Referral 09/22/2022 05/03/2023 1 1 Specialty Diagnoses / Procedures Referred By Contac t Referred To Contact Diagnoses Chronic constipation Genie Jackson MD [address] [place] [address] Referral ID Status Reason Start Date Expiration Date V isits Requested Visits Authorized [id number] Authorized 11/12/2023 11/10/2024 1 1 Health Concerns Infection Onset Date Last Indicated Resolved Time COVID-19 Rule-Out 02/02/2022 02/02/2022 Chief Complaint and Reason for Visit Chief Complaint FOREIGN BODY Chief Complaint FOREIGN BODY ABD PAIN Chief Complaint ABD PAIN WEAKNESS Chief Complaint ABD Additional Source Comments INFORMATION SOURCE (unrecogn ized section and content) DATE CREATED AUTHOR 10/20/2017 [facility] DATE CREATED AUTHOR AUTHOR'S ORGANIZ ATION 10/23/2017 [facility] DATE CREATED AUTHOR AUTHOR'S ORGANIZ ATION 08/26/2022 [facility] DATE CREATED AUTHOR AUTHOR'S ORGANIZ ATION 07/11/2023 [facility] ([place] DATE CREATED AUTHOR AUTHOR'S ORGANIZ ATION 09/05/2023 [facility] DATE CREATED AUTHOR AUTHOR'S ORGANIZ ATION 10/28/2024 [facility] Source Comments (unrecognize d section and content) In the event this informatio n is protected by the Federal Confidentiality of Alcohol and Drug Abuse Patient Records regulations: The Federal rules restrict any use of the information to criminally investigate or prosecute any alcohol or drug abuse patient.[facility] HospitalIn the event this information is protected by the Federal Confidentiality of Alcohol and Drug Abuse Patient Records regulations: The Federal rules restrict any use of the information to criminally investigate or prosecute any alcohol or drug abuse patient.[facility] HospitalIn the event this information is protected by the Federal Confidentiality of Alcohol and Drug Abuse Patient Records regulations: The Federal rules restrict any use of the information to criminally investigate or prosecute any alcohol or drug abuse patient.[facility] HospitalIn the event this information is protected by the Federal Confidentiality of Alcohol and Drug Abuse Patient Records regulations: The Federal rules restrict any use of the information to criminally investigate or prosecute any alcohol or drug abuse patient.[facility] HospitalIn the event this information is protected by the Federal Confidentiality of Alcohol and Drug Abuse Patient Records regulations: The Federal rules restrict any use of the information to criminally investigate or prosecute any alcohol or drug abuse patient.[facility] HospitalIn the event this information is protected by the Federal Confidentiality of Alcohol and Drug Abuse Patient Records regulations: The Federal rules restrict any use of the information to criminally investigate or prosecute any alcohol or drug abuse patient.[facility] HospitalIn the event this information is protected by the Federal Confidentiality of Alcohol and Drug Abuse Patient Records regulations: The Federal rules restrict any use of the information to criminally investigate or prosecute any alcohol or drug abuse patient.[facility] HospitalIn the event this information is protected by the Federal Confidentiality of Alcohol and Drug Abuse Patient Records regulations: The Federal rules restrict any use of the information to criminally investigate or prosecute any alcohol or drug abuse patient.[facility] HospitalIn the event this information is protected by the Federal Confidentiality of Alcohol and Drug Abuse Patient Records regulations: The Federal rules restrict any use of the information to criminally investigate or prosecute any alcohol or drug abuse patient.[facility] HospitalIn the event this information is protected by the Federal Confidentiality of Alcohol and Drug Abuse Patient Records regulations: The Federal rules restrict any use of the information to criminally investigate or prosecute any alcohol or drug abuse patient.[facility] HospitalIn the event this information is protected by the Federal Confidentiality of Alcohol and Drug Abuse Patient Records regulations: The Federal rules restrict any use of the information to criminally investigate or prosecute any alcohol or drug abuse patient.[facility] HospitalIn the event this information is protected by the Federal Confidentiality of Alcohol and Drug Abuse Patient Records regulations: The Federal rules restrict any use of the information to criminally investigate or prosecute any alcohol or drug abuse patient.[facility] HospitalIn the event this information is protected by the Federal Confidentiality of Alcohol and Drug Abuse Patient Records regulations: The Federal rules restrict any use of the information to criminally investigate or prosecute any alcohol or drug abuse patient.[facility] HospitalIn the event this information is protected by the Federal Confidentiality of Alcohol and Drug Abuse Patient Records regulations: The Federal rules restrict any use of the information to criminally investigate or prosecute any alcohol or drug abuse patient.[facility] HospitalIn the event this information is protected by the Federal Confidentiality of Alcohol and Drug Abuse Patient Records regulations: The Federal rules restrict any use of the information to criminally investigate or prosecute any alcohol or drug abuse patient.[facility] HospitalIn the event this information is protected by the Federal Confidentiality of Alcohol and Drug Abuse Patient Records regulations: The Federal rules restrict any use of the information to criminally investigate or prosecute any alcohol or drug abuse patient.[facility] HospitalIn the event this information is protected by the Federal Confidentiality of Alcohol and Drug Abuse Patient Records regulations: The Federal rules restrict any use of the information to criminally investigate or prosecute any alcohol or drug abuse patient.[facility] HospitalIn the event this information is protected by the Federal Confidentiality of Alcohol and Drug Abuse Patient Records regulations: The Federal rules restrict any use of the information to criminally investigate or prosecute any alcohol or drug abuse patient.[facility] HospitalIn the event this information is protected by the Federal Confidentiality of Alcohol and Drug Abuse Patient Records regulations: The Federal rules restrict any use of the information to criminally investigate or prosecute any alcohol or drug abuse patient.[facility] HospitalIn the event this information is protected by the Federal Confidentiality of Alcohol and Drug Abuse Patient Records regulations: The Federal rules restrict any use of the information to criminally investigate or prosecute any alcohol or drug abuse patient.[facility] HospitalIn the event this information is protected by the Federal Confidentiality of Alcohol and Drug Abuse Patient Records regulations: The Federal rules restrict any use of the information to criminally investigate or prosecute any alcohol or drug abuse patient.[facility] HospitalIn the event this information is protected by the Federal Confidentiality of Alcohol and Drug Abuse Patient Records regulations: The Federal rules restrict any use of the information to criminally investigate or prosecute any alcohol or drug abuse patient.[facility] HospitalIn the event this information is protected by the Federal Confidentiality of Alcohol and Drug Abuse Patient Records regulations: The Federal rules restrict any use of the information to criminally investigate or prosecute any alcohol or drug abuse patient.[facility] HospitalIn the event this information is protected by the Federal Confidentiality of Alcohol and Drug Abuse Patient Records regulations: The Federal rules restrict any use of the information to criminally investigate or prosecute any alcohol or drug abuse patient.[facility] HospitalIn the event this information is protected by the Federal Confidentiality of Alcohol and Drug Abuse Patient Records regulations: The Federal rules restrict any use of the information to criminally investigate or prosecute any alcohol or drug abuse patient.[facility] HospitalIn the event this information is protected by the Federal Confidentiality of Alcohol and Drug Abuse Patient Records regulations: The Federal rules restrict any use of the information to criminally investigate or prosecute any alcohol or drug abuse patient.[facility] HospitalIn the event this information is protected by the Federal Confidentiality of Alcohol and Drug Abuse Patient Records regulations: The Federal rules restrict any use of the information to criminally investigate or prosecute any alcohol or drug abuse patient.[facility] HospitalIn the event this information is protected by the Federal Confidentiality of Alcohol and Drug Abuse Patient Records regulations: The Federal rules restrict any use of the information to criminally investigate or prosecute any alcohol or drug abuse patient.[facility] HospitalIn the event this information is protected by the Federal Confidentiality of Alcohol and Drug Abuse Patient Records regulations: The Federal rules restrict any use of the information to criminally investigate or prosecute any alcohol or drug abuse patient.[facility] HospitalIn the event this information is protected by the Federal Confidentiality of Alcohol and Drug Abuse Patient Records regulations: The Federal rules restrict any use of the information to criminally investigate or prosecute any alcohol or drug abuse patient.[facility] HospitalIn the event this information is protected by the Federal Confidentiality of Alcohol and Drug Abuse Patient Records regulations: The Federal rules restrict any use of the information to criminally investigate or prosecute any alcohol or drug abuse patient.[facility] HospitalIn the event this information is protected by the Federal Confidentiality of Alcohol and Drug Abuse Patient Records regulations: The Federal rules restrict any use of the information to criminally investigate or prosecute any alcohol or drug abuse patient.[facility] HospitalIn the event this information is protected by the Federal Confidentiality of Alcohol and Drug Abuse Patient Records regulations: The Federal rules restrict any use of the information to criminally investigate or prosecute any alcohol or drug abuse patient.[facility] HospitalIn the event this information is protected by the Federal Confidentiality of Alcohol and Drug Abuse Patient Records regulations: The Federal rules restrict any use of the information to criminally investigate or prosecute any alcohol or drug abuse patient.[facility] HospitalIn the event this information is protected by the Federal Confidentiality of Alcohol and Drug Abuse Patient Records regulations: The Federal rules restrict any use of the information to criminally investigate or prosecute any alcohol or drug abuse patient.[facility] HospitalIn the event this information is protected by the Federal Confidentiality of Alcohol and Drug Abuse Patient Records regulations: The Federal rules restrict any use of the information to criminally investigate or prosecute any alcohol or drug abuse patient.[facility] HospitalIn the event this information is protected by the Federal Confidentiality of Alcohol and Drug Abuse Patient Records regulations: The Federal rules restrict any use of the information to criminally investigate or prosecute any alcohol or drug abuse patient.[facility] HospitalIn the event this information is protected by the Federal Confidentiality of Alcohol and Drug Abuse Patient Records regulations: The Federal rules restrict any use of the information to criminally investigate or prosecute any alcohol or drug abuse patient.[facility] HospitalIn the event this information is protected by the Federal Confidentiality of Alcohol and Drug Abuse Patient Records regulations: The Federal rules restrict any use of the information to criminally investigate or prosecute any alcohol or drug abuse patient.[facility] HospitalIn the event this information is protected by the Federal Confidentiality of Alcohol and Drug Abuse Patient Records regulations: The Federal rules restrict any use of the information to criminally investigate or prosecute any alcohol or drug abuse patient.[facility] HospitalIn the event this information is protected by the Federal Confidentiality of Alcohol and Drug Abuse Patient Records regulations: The Federal rules restrict any use of the information to criminally investigate or prosecute any alcohol or drug abuse patient.[facility] HospitalIn the event this information is protected by the Federal Confidentiality of Alcohol and Drug Abuse Patient Records regulations: The Federal rules restrict any use of the information to criminally investigate or prosecute any alcohol or drug abuse patient.[facility] HospitalIn the event this information is protected by the Federal Confidentiality of Alcohol and Drug Abuse Patient Records regulations: The Federal rules restrict any use of the information to criminally investigate or prosecute any alcohol or drug abuse patient.[facility] HospitalIn the event this information is protected by the Federal Confidentiality of Alcohol and Drug Abuse Patient Records regulations: The Federal rules restrict any use of the information to criminally investigate or prosecute any alcohol or drug abuse patient.[facility] HospitalIn the event this information is protected by the Federal Confidentiality of Alcohol and Drug Abuse Patient Records regulations: The Federal rules restrict any use of the information to criminally investigate or prosecute any alcohol or drug abuse patient.[facility] HospitalIn the event this information is protected by the Federal Confidentiality of Alcohol and Drug Abuse Patient Records regulations: The Federal rules restrict any use of the information to criminally investigate or prosecute any alcohol or drug abuse patient.[facility] HospitalIn the event this information is protected by the Federal Confidentiality of Alcohol and Drug Abuse Patient Records regulations: The Federal rules restrict any use of the information to criminally investigate or prosecute any alcohol or drug abuse patient.[facility] HospitalIn the event this information is protected by the Federal Confidentiality of Alcohol and Drug Abuse Patient Records regulations: The Federal rules restrict any use of the information to criminally investigate or prosecute any alcohol or drug abuse patient.[facility] HospitalIn the event this information is protected by the Federal Confidentiality of Alcohol and Drug Abuse Patient Records regulations: The Federal rules restrict any use of the information to criminally investigate or prosecute any alcohol or drug abuse patient.[facility] HospitalIn the event this information is protected by the Federal Confidentiality of Alcohol and Drug Abuse Patient Records regulations: The Federal rules restrict any use of the information to criminally investigate or prosecute any alcohol or drug abuse patient.[facility] HospitalIn the event this information is protected by the Federal Confidentiality of Alcohol and Drug Abuse Patient Records regulations: The Federal rules restrict any use of the information to criminally investigate or prosecute any alcohol or drug abuse patient.[facility] HospitalIn the event this information is protected by the Federal Confidentiality of Alcohol and Drug Abuse Patient Records regulations: The Federal rules restrict any use of the information to criminally investigate or prosecute any alcohol or drug abuse patient.[facility] HospitalIn the event this information is protected by the Federal Confidentiality of Alcohol and Drug Abuse Patient Records regulations: The Federal rules restrict any use of the information to criminally investigate or prosecute any alcohol or drug abuse patient.[facility] HospitalIn the event this information is protected by the Federal Confidentiality of Alcohol and Drug Abuse Patient Records regulations: The Federal rules restrict any use of the information to criminally investigate or prosecute any alcohol or drug abuse patient.[facility] HospitalIn the event this information is protected by the Federal Confidentiality of Alcohol and Drug Abuse Patient Records regulations: The Federal rules restrict any use of the information to criminally investigate or prosecute any alcohol or drug abuse patient.[facility] HospitalIn the event this information is protected by the Federal Confidentiality of Alcohol and Drug Abuse Patient Records regulations: The Federal rules restrict any use of the information to criminally investigate or prosecute any alcohol or drug abuse patient.[facility] HospitalIn the event this information is protected by the Federal Confidentiality of Alcohol and Drug Abuse Patient Records regulations: The Federal rules restrict any use of the information to criminally investigate or prosecute any alcohol or drug abuse patient.[facility] HospitalIn the event this information is protected by the Federal Confidentiality of Alcohol and Drug Abuse Patient Records regulations: The Federal rules restrict any use of the information to criminally investigate or prosecute any alcohol or drug abuse patient.[facility] HospitalIn the event this information is protected by the Federal Confidentiality of Alcohol and Drug Abuse Patient Records regulations: The Federal rules restrict any use of the information to criminally investigate or prosecute any alcohol or drug abuse patient.[facility] HospitalIn the event this information is protected by the Federal Confidentiality of Alcohol and Drug Abuse Patient Records regulations: The Federal rules restrict any use of the information to criminally investigate or prosecute any alcohol or drug abuse patient.[facility] HospitalIn the event this information is protected by the Federal Confidentiality of Alcohol and Drug Abuse Patient Records regulations: The Federal rules restrict any use of the information to criminally investigate or prosecute any alcohol or drug abuse patient.[facility] HospitalIn the event this information is protected by the Federal Confidentiality of Alcohol and Drug Abuse Patient Records regulations: The Federal rules restrict any use of the information to criminally investigate or prosecute any alcohol or drug abuse patient.[facility] HospitalIn the event this information is protected by the Federal Confidentiality of Alcohol and Drug Abuse Patient Records regulations: The Federal rules restrict any use of the information to criminally investigate or prosecute any alcohol or drug abuse patient.[facility] HospitalIn the event this information is protected by the Federal Confidentiality of Alcohol and Drug Abuse Patient Records regulations: The Federal rules restrict any use of the information to criminally investigate or prosecute any alcohol or drug abuse patient.[facility] HospitalIn the event this information is protected by the Federal Confidentiality of Alcohol and Drug Abuse Patient Records regulations: The Federal rules restrict any use of the information to criminally investigate or prosecute any alcohol or drug abuse patient.[facility] HospitalIn the event this information is protected by the Federal Confidentiality of Alcohol and Drug Abuse Patient Records regulations: The Federal rules restrict any use of the information to criminally investigate or prosecute any alcohol or drug abuse patient.[facility] HospitalIn the event this information is protected by the Federal Confidentiality of Alcohol and Drug Abuse Patient Records regulations: The Federal rules restrict any use of the information to criminally investigate or prosecute any alcohol or drug abuse patient.[facility] HospitalIn the event this information is protected by the Federal Confidentiality of Alcohol and Drug Abuse Patient Records regulations: The Federal rules restrict any use of the information to criminally investigate or prosecute any alcohol or drug abuse patient.[facility] HospitalIn the event this information is protected by the Federal Confidentiality of Alcohol and Drug Abuse Patient Records regulations: The Federal rules restrict any use of the information to criminally investigate or prosecute any alcohol or drug abuse patient.[facility] HospitalIn the event this information is protected by the Federal Confidentiality of Alcohol and Drug Abuse Patient Records regulations: The Federal rules restrict any use of the information to criminally investigate or prosecute any alcohol or drug abuse patient.[facility] HospitalIn the event this information is protected by the Federal Confidentiality of Alcohol and Drug Abuse Patient Records regulations: The Federal rules restrict any use of the information to criminally investigate or prosecute any alcohol or drug abuse patient.[facility] HospitalIn the event this information is protected by the Federal Confidentiality of Alcohol and Drug Abuse Patient Records regulations: The Federal rules restrict any use of the information to criminally investigate or prosecute any alcohol or drug abuse patient.[facility] HospitalIn the event this information is protected by the Federal Confidentiality of Alcohol and Drug Abuse Patient Records regulations: The Federal rules restrict any use of the information to criminally investigate or prosecute any alcohol or drug abuse patient.[facility] HospitalIn the event this information is protected by the Federal Confidentiality of Alcohol and Drug Abuse Patient Records regulations: The Federal rules restrict any use of the information to criminally investigate or prosecute any alcohol or drug abuse patient.[facility] HospitalIn the event this information is protected by the Federal Confidentiality of Alcohol and Drug Abuse Patient Records regulations: The Federal rules restrict any use of the information to criminally investigate or prosecute any alcohol or drug abuse patient.[facility] HospitalIn the event this information is protected by the Federal Confidentiality of Alcohol and Drug Abuse Patient Records regulations: The Federal rules restrict any use of the information to criminally investigate or prosecute any alcohol or drug abuse patient.[facility] HospitalIn the event this information is protected by the Federal Confidentiality of Alcohol and Drug Abuse Patient Records regulations: The Federal rules restrict any use of the information to criminally investigate or prosecute any alcohol or drug abuse patient.[facility] HospitalIn the event this information is protected by the Federal Confidentiality of Alcohol and Drug Abuse Patient Records regulations: The Federal rules restrict any use of the information to criminally investigate or prosecute any alcohol or drug abuse patient.[facility] Reason for Visit (unrecogniz ed section and content) Reason Onset Date Comments Refill Request 08/09/2021 Reason Comments Swollen Tonsils Reason Comments GERD Specialty Diagnoses / Procedures Referred By Contduc t Referred To Contact Gastroenterology Diagnoses Gastroesophageal reflux disease, unspecified whether esophagitis present Procedures CONSULT TO GASTROENTEROLOGY OFFICE/[facility] 60-74 MINUTES Genie Jackson MD [address] [place] [address] Referral ID Status Reason Start Date Expiration Date Visits Requested Visits Authorized [id number] Pending Review PCP Requested Referral 09/19/2021 09/19/2022 1 1 Reason Comments Depression Reason Onset Date Comments Refill Request 11/26/2021 Reason Comments Medication Question Reason Comments Referral Request Reason Onset Date Comments Refill Request 12/16/2021 Reason Onset Date Comments Refill Request 12/17/2021 Reason Comments Pain (LT) wrist pain rate d 8, x2 mths cramping, denied injury. Reason Comments Nasal Congestion Sinus drainage x5 da ys Reason Comments Ear Pain Bilateral ear pain a nd pressure x 2 days Reason Comments Ear Problem Pain to left ear x1 week; hearing has decreased in earATB completed yesterday Reason Onset Date Comments Refill Request 02/15/2022 Reason Comments Medication Follow-up Reason Onset Date Comments Refill Request 05/08/2022 Reason Comments Refill Request Reason Onset Date Comments Refill Request 07/23/2022 Reason Onset Date Comments Refill Request 07/29/2022 Reason Comments ER F/U 08/22/22 [facility]; abdominal pain Reason Comments Urinary Frequency Frequency and burnin g x 1 day Reason Comments Patient Question Reason Onset Date Comments Refill Request Refill Request 01/14/2023 Reason Onset Date Comments Refill Request 03/26/2023 Reason Onset Date Comments Refill Request 04/02/2023 Reason Comments Patient Request Reason Comments Orders Irregular Menstrual Cycle Reason Comments Results Labs Reason Comments Headache Stomach ache, weakne ss, x3 days Reason Onset Date Comments Refill Request 07/23/2023 Reason Comments Derm Problem infected breast from piercing x 1 week, bilateral ear pain x 1 week Reason Comments Menstrual Problem Reason Comments Yearly Exam Reason Onset Date Comments Refill Request 11/12/2023 Reason Onset Date Comments Refill Request 11/12/2023 Reason Comments lab results Reason Onset Date Comments Refill Request 11/15/2023 Reason Comments Results Pelvic US Reason Comments Discussion Reason Onset Date Comments Refill Request 12/17/2023 Reason Onset Date Comments Refill Request 12/19/2023 Reason Comments Appointment Reason Onset Date Comments Refill Request 01/20/2024 Reason Onset Date Comments Refill Request 01/18/2024 Reason Comments Wellness Reason Onset Date Comments Refill Request 02/19/2024 Reason Onset Date Comments Refill Request 03/22/2024 Reason Comments Cough Sore throat, VARGAS, bod y aches, chills x 3 days Specialty Diagnoses / Procedures Referred By Contac t Referred To Contact [facility] Diagnoses headache, sore throat, bodyaches and chills Procedures EST SAME DAY Self [facility] [address] [place] [address] Referral ID Status Reason Start Date Expiration Date Visits Requested Visits Authorized [id number] New Request Financial Clearance Required - Self Pay 07/13/2024 1 1 Reason Comments Problem Visit Reason Comments Headache X 1 week with sinus pressure Reason Comments Medication Problem Increased anxiety Reason Comments patient medication question Reason Comments Medication Problem Reason Comments Future Appointment Reason Comments 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 Reason Comments Follow Up Reason Comments US Specialty Diagnoses / Procedures Referred By Contac t Referred To Contact [facility] Diagnoses 8 weeks gestation of ([facility]) Procedures OBSTETRIC ULTRASOUND WHI US PREG UTERUS AFTER 1ST TRIMEST GESTATION Elayne Severino APRN.SENIOR ELECTRONICS ENGINEER [address] [place] [address] Phone: tel: fax: [facility] [place] [address] [place] [address] Referral ID Status Reason Start Date Expiration Date V isits Requested Visits Authorized [id number] Closed Auto-Generate d Referral 08/01/2024 08/01/2025 1 1 Reason Onset Date Comments Care 08/31/2024 Reason Onset Date Comments Refill Request 09/07/2024 Reason Onset Date Comments Care 09/29/2024 Specialty Diagnoses / Procedures Referred By Contac t Referred To Contact [facility] Diagnoses Supervision of other high risk pregnancies, second trimester (HCC) Hx of preeclampsia, prior , currently (HCC) Obesity in ([facility]) Hypothyroidism, unspecified type Procedures OBSTETRIC ULTRASOUND WHI US PREG UTERUS AFTER 1ST TRIMEST GESTATION Emmanuel Hess MD [address] [place] [address] Phone: tel: fax: [facility] [place] 2[facility] [address] [place] [address] Referral ID Status Reason Start Date Expiration Date V isits Requested Visits Authorized [id number] Closed Auto-Generate d Referral 09/29/2024 09/29/2025 6 1 Reason Onset Date Comments Care 10/26/2024 Referral ID Status Reason Start Date Expiration Date V isits Requested Visits Authorized [id number] Closed Auto-Generate d Referral 08/01/2024 08/01/2025 1 1 Care Teams (unrecognized sec tion and content) [employer] Super[employer] Relationship Specialty Start Date End Date Genie Jackson MD [address] [place] [address] PCP - General Family Practice 08/27/17 [employer] Super[employer] Relationship Specialty Start Date End Date Genie Jackson MD [address] [place] [address] PCP - General Family Practice 08/27/17 [employer] Supervisor Relationship Specialty Start Date End Date Genie Jackson MD [address] [place] [address] PCP - General Family Practice 08/27/17 [employer] Supervisor Relationship Specialty Start Date End Date Genie Jackson MD [address] [place] [address] PCP - General Family Practice 08/27/17 [employer] Supervisor Relationship Specialty Start Date End Date Genie Jackson MD [address] [place] [address] PCP - General Family Practice 08/27/17 [employer] Supervisor Relationship Specialty Start Date End Date Genie Jackosn MD [address] [place] [address] PCP - General Family Practice 08/27/17 [employer] Supervisor Relationship Specialty Start Date End Date Genie Jackson MD [address] [place] [address] PCP - General Family Practice 08/27/17 [employer] Supervisor Relationship Specialty Start Date End Date Genie Jackson MD [address] [facility] [place] [address] PCP - General Family Practice 08/27/17 [employer] Supervisor Relationship Specialty Start Date End Date Genie Jackson MD [address] [facility] [address] PCP - General Family Practice 08/27/17 [employer] Supervisor Relationship Specialty Start Date End Date Genie Jackson MD [address] [facility] [address] PCP - General Family Practice 08/27/17 [employer] Supervisor Relationship Specialty Start Date End Date Genie Jackson MD [address] [facility] [place] [address] PCP - General Family Medicine 08/27/17 [employer] Supervisor Relationship Specialty Start Date End Date Genie Jackson MD [address] [facility] [place] [address] PCP - General Family Medicine 08/27/17 [employer] Supervisor Relationship Specialty Start Date End Date Genie Jackson MD [address] [facility] [place] [address] PCP - General Family Medicine 08/27/17 [employer] Supervisor Relationship Specialty Start Date End Date Genie Jackson MD [address] [facility] [place] [address] PCP - General Family Medicine 08/27/17 [employer] Supervisor Relationship Specialty Start Date End Date Genie Jackson MD [address] [facility] [place] [address] PCP - General Family Medicine 08/27/17 Team Status: Active Member Role Status Dates Dr. Genie Jackson MD Family Provider Active Dr. Genie Jackson MD Primary Care Provider Active Team Status: Inactive Member Role Status Dates Dr. Genie Jackson MD Primary Care Provider Active Dr. Geoff Pappas MD Attending Provider, Emergency Pr ovider Active Team Status: Inactive Member Role Status Dates Dr. Genie Jackson MD Primary Care Provider Active Dr. Louis Spivey MD Emergency Provider Active [employer] Super[employer] Relationship Specialty Start Date End Date Genie Jackson MD [address] [facility] [place] [address] PCP - General Family Medicine 08/27/17 [employer] Supervisor Relationship Specialty Start Date End Date Genie Jackson MD [address] [facility] [place] [address] PCP - General Family Medicine 08/27/17 [employer] Supervisor Relationship Specialty Start Date End Date Genie Jackson MD [address] [facility] [place] [address] PCP - General Family Medicine 08/27/17 Team Status: Inactive Member Role Status Dates Dr. Genie Jackson MD Primary Care Provider Active Dr. Louis Spivey MD Attending Provider, Emergency Pro vider Active Team Status: Inactive Member Role Status Dates Dr. Genie Jackson MD Primary Care Provider Active Dr. Steffanie Ureña MD Emergency Provider Active [employer] Super[employer] Relationship Specialty Start Date End Date Genie Jackson MD [address] [facility] [place] [address] PCP - General Family Medicine 08/27/17 [employer] Supervisor Relationship Specialty Start Date End Date Genie Jackson MD [address] [facility] [place] [address] PCP - General Family Medicine 08/27/17 [employer] Supervisor Relationship Specialty Start Date End Date Genie Jackson MD [address] [facility] [place] [address] PCP - General Family Medicine 08/27/17 [employer] Supervisor Relationship Specialty Start Date End Date Genie Jackson MD [address] [facility] [place] [address] PCP - General Family Medicine 08/27/17 [employer] Supervisor Relationship Specialty Start Date End Date Genie Jackson MD [address] [facility] [place] [address] PCP - General Family Medicine 08/27/17 [employer] Supervisor Relationship Specialty Start Date End Date Genie Jackson MD [address] [facility] [place] [address] PCP - General Family Medicine 08/27/17 [employer] Supervisor Relationship Specialty Start Date End Date Genie Jackson MD [address] [place] [address] PCP - General Family Medicine 08/27/17 Team Status: Inactive Member Role Status Dates Dr. Genie Jackson MD Primary Care Provider Active Dr. Thierno Winston , DO Emergency Provider Active [employer] Super[employer] Relationship Specialty Start Date End Date Genie Jackson MD [address] [facility] [place] [address] PCP - General Family Medicine 08/27/17 [employer] Supervisor Relationship Specialty Start Date End Date Genie Jackson MD [address] [facility] [place] [address] PCP - General Family Medicine 08/27/17 [employer] Supervisor Relationship Specialty Start Date End Date Genie Jackson MD [address] [facility] [place] [address] PCP - General Family Medicine 08/27/17 [employer] Supervisor Relationship Specialty Start Date End Date Genie Jackson MD [address] [facility] [place] [address] PCP - General Family Medicine 08/27/17 [employer] Supervisor Relationship Specialty Start Date End Date Genie Jackson MD [address] [facility] [place] [address] PCP - General Family Medicine 08/27/17 [employer] Supervisor Relationship Specialty Start Date End Date Genie Jackson MD [address] [facility] [place] [address] PCP - General Family Medicine 08/27/17 [employer] Supervisor Relationship Specialty Start Date End Date Genie Jackson MD [address] [facility] [place] [address] PCP - General Family Medicine 08/27/17 [employer] Supervisor Relationship Specialty Start Date End Date Genie Jackson MD [address] [facility] [place] [address] PCP - General Family Medicine 08/27/17 [employer] Supervisor Relationship Specialty Start Date End Date Genie Jackson MD [address] [facility] [place] [address] PCP - General Family Medicine 08/27/17 [employer] Supervisor Relationship Specialty Start Date End Date Genie Jackson MD [address] [facility] [place] [address] PCP - General Family Medicine 08/27/17 [employer] Supervisor Relationship Specialty Start Date End Date Genie Jackson MD [address] [facility] [place] [address] PCP - General Family Medicine 08/27/17 [employer] Supervisor Relationship Specialty Start Date End Date Genie Jackson MD [address] [facility] [place] [address] PCP - General Family Medicine 08/27/17 [employer] Supervisor Relationship Specialty Start Date End Date Genie Jackson MD [address] [facility] [place] [address] PCP - General Family Medicine 08/27/17 Ivelisse Ng APRN.SENIOR ELECTRONICS ENGINEER [address] [facility] [place] [address] Dairy Lab Technician Family Medicine 04/10/24 [employer] Supervisor Relationship Specialty Start Date End Date Genie Jackson MD [address] [facility] [place] [address] PCP - General Family Medicine 08/27/17 Ivelisse Ng APRN.SENIOR ELECTRONICS ENGINEER [address] [facility] [place] [address] Dairy Lab Technician Family Medicine 04/10/24 Terrell Cloud APRN.SENIOR ELECTRONICS ENGINEER [address] [facility] [place] [address] Dairy Lab Technician Family Medicine 04/19/24 [employer] Supervisor Relationship Specialty Start Date End Date Genie Jackson MD [address] [facility] [place] [address] PCP - General Family Medicine 08/27/17 Ivelisse Ng APRN.SENIOR ELECTRONICS ENGINEER [address] [facility] [place] [address] Dairy Lab Technician Family Medicine 04/10/24 Terrell Cloud APRN.SENIOR ELECTRONICS ENGINEER [address] [facility] [place] [address] Dairy Lab Technician Family Medicine 04/19/24 [employer] Supervisor Relationship Specialty Start Date End Date Genie Jackson MD [address] [facility] [place] [address] PCP - General Family Medicine 08/27/17 Ivelisse Ng APRN.SENIOR ELECTRONICS ENGINEER [address] [facility] [place] [address] Dairy Lab Technician Family Medicine 04/10/24 Terrell Cloud APRN.SENIOR ELECTRONICS ENGINEER [address] [facility] [place] [address] Dairy Lab Technician [facility] Medicine 04/19/24 [employer] Supervisor Relationship Specialty Start Date End Date Genie Jackson MD [address] [facility] [place] [address] PCP - General Family Medicine 08/27/17 Ivelisse Ng APRN.SENIOR ELECTRONICS ENGINEER [address] [facility] [place] [address] Dairy Lab Technician Family Medicine 04/10/24 Terrell Cloud APRN.SENIOR ELECTRONICS ENGINEER [address] [facility] [place] [address] Dairy Lab Technician Family Medicine 04/19/24 [employer] Supervisor Relationship Specialty Start Date End Date Genie Jackson MD [address] [facility] [place] [address] PCP - General Family Medicine 08/27/17 Ivelisse Ng APRN.SENIOR ELECTRONICS ENGINEER [address] [place] [address] Dairy Lab Technician Family Medicine 04/10/24 Terrell Cloud APRN.SENIOR ELECTRONICS ENGINEER [address] [place] [address] Dairy Lab Technician Family Medicine 04/19/24 [employer] Super[employer] Relationship Specialty Start Date End Date Genie Jackson MD [address] [place] [address] PCP - General Family Medicine 08/27/17 Ivelisse Ng APRN.SENIOR ELECTRONICS ENGINEER [address] [place] [address] Dairy Lab Technician Family Medicine 04/10/24 Terrell Cloud APRN.SENIOR ELECTRONICS ENGINEER [address] [place] [address] Dairy Lab Technician Family Medicine 04/19/24 [employer] Supervisor Relationship Specialty Start Date End Date Genie Jackson MD [address] [place] [address] PCP - General Family Medicine 08/27/17 Ivelisse Ng APRN.SENIOR ELECTRONICS ENGINEER [address] [place] [address] Dairy Lab Technician Family Medicine 04/10/24 Terrell Cloud APRN.SENIOR ELECTRONICS ENGINEER [address] [place] [address] Dairy Lab Technician Family Medicine 04/19/24 [employer] Supervisor Relationship Specialty Start Date End Date Genie Jackson MD [address] [place] [address] PCP - General Family Medicine 08/27/17 Ivelisse Ng APRN.SENIOR ELECTRONICS ENGINEER [address] [place] [address] Dairy Lab Technician Family Medicine 04/10/24 Terrell Cloud APRN.SENIOR ELECTRONICS ENGINEER [address] [place] [address] Dairy Lab Technician Family Medicine 04/19/24 [employer] Supervisor Relationship Specialty Start Date End Date Genie Jackson MD [address] [place] [address] PCP - General Family Medicine 08/27/17 Ivelisse Ng APRN.SENIOR ELECTRONICS ENGINEER [address] [place] [address] Dairy Lab Technician Family Medicine 04/10/24 Terrell Cloud APRN.SENIOR ELECTRONICS ENGINEER [address] [place] [address] Dairy Lab Technician Family Medicine 04/19/24 [employer] Supervisor Relationship Specialty Start Date End Date Genie Jackson MD [address] [place] [address] PCP - General Family Medicine 08/27/17 Ivelisse Ng APRN.SENIOR ELECTRONICS ENGINEER [address] [place] [address] Dairy Lab Technician Family Medicine 04/10/24 Terrell Cloud APRN.SENIOR ELECTRONICS ENGINEER [address] [place] [address] Dairy Lab Technician Family Medicine 04/19/24 [employer] Supervisor Relationship Specialty Start Date End Date Genie Jackson MD [address] [facility] [place] [address] PCP - General Family Medicine 08/27/17 Ivelisse Ng APRN.SENIOR ELECTRONICS ENGINEER [address] [place] [address] Dairy Lab Technician Family Medicine 04/10/24 Terrell Cloud APRN.SENIOR ELECTRONICS ENGINEER [address] [facility] [place] [address] Dairy Lab Technician Family Medicine 04/19/24 [employer] Supervisor Relationship Specialty Start Date End Date Genie Jackson MD [address] [place] [address] PCP - General Family Medicine 08/27/17 Ivelisse Ng APRN.SENIOR ELECTRONICS ENGINEER [address] [facility] [place] [address] Dairy Lab Technician Family Medicine 04/10/24 Terrell Cloud APRN.SENIOR ELECTRONICS ENGINEER [address] [facility] [place] [address] Dairy Lab Technician Family Medicine 04/19/24 [employer] Supervisor Relationship Specialty Start Date End Date Genie Jackson MD [address] [facility] [place] [address] PCP - General Family Medicine 08/27/17 Ivelisse Ng APRN.SENIOR ELECTRONICS ENGINEER [address] [facility] [place] [place] [address] Dairy Lab Technician Family Medicine 04/10/24 Terrell Cloud APRN.SENIOR ELECTRONICS ENGINEER [address] [facility] [place] [place] [address] Dairy Lab Technician Family Medicine 04/19/24 [employer] Supervisor Relationship Specialty Start Date End Date Genie Jackson MD [address] [place] [address] PCP - General Family Medicine 08/27/17 Terrell Cloud APRN.SENIOR ELECTRONICS ENGINEER [address] [place] [address] [facility] 04/19/24 [employer] Supervisor Relationship Specialty Start Date End Date Genie Jackson MD [address] [place] [address] PCP - General Family Medicine 08/27/17 Ivelisse Ng APRN.SENIOR ELECTRONICS ENGINEER [address] [place] [address] [facility] 04/10/24 09/14/24 Terrell Cloud, ANALYSIS REPORTING DEVELOPER.SENIOR ELECTRONICS ENGINEER [address] [place] [address] [facility] 04/19/24 [employer] Supervisor Relationship Specialty Start Date End Date Genie Jackson MD [address] [place] [address] PCP - General Family Medicine 08/27/17 Terrell Cloud, ANALYSIS REPORTING DEVELOPER.SENIOR ELECTRONICS ENGINEER [address] [place] [address] [facility] 04/19/24 [employer] Supervisor Relationship Specialty Start Date End Date Genie Jackson MD [address] [place] [address] PCP - General Family Medicine 08/27/17 Terrell Cloud APRN.SENIOR ELECTRONICS ENGINEER [address] [place], [place] [address] [phone] Dairy Lab Technician Family Medicine 04/19/24 [employer] Supervisor Relationship Specialty Start Date End Date Genie Jackson MD [address] [place] [address] PCP - General Family Medicine 08/27/17 Terrell Cloud APRN.SENIOR ELECTRONICS ENGINEER [address] [place] [address] [facility] 04/19/24 [employer] Supervisor Relationship Specialty Start Date End Date Genie Jackson MD [address] [place] [address] PCP - General Family Medicine 08/27/17 Terrell Cloud, ANALYSIS REPORTING DEVELOPER.SENIOR ELECTRONICS ENGINEER [address] [place] [address] [facility] 04/19/24 [employer] Supervisor Relationship Specialty Start Date End Date Genie Jackson MD [address] [place] [address] PCP - General Family Medicine 08/27/17 Terrell Cloud, ANALYSIS REPORTING DEVELOPER.SENIOR ELECTRONICS ENGINEER [address] [place] [address] Dairy Lab Technician Family Medicine 04/19/24 Goals (unrecognized section and content) Goals may be documented in a n alternate sectionGoals may be documented in an alternate sectionGoals may be documented in an alternate sectionGoals may be documented in an alternate section No data available for this section <item><item> Privacy Markings (unrecogniz ed section and content) Section Author: Zulema Ashby PROHIBITION ON REDISCLOSURE OF CONFIDENTIAL INFORMATION This notice accompanies a disclosure of information concerning a client made to you with the consent of such client. Section Author: Zulema Ashby PROHIBITION ON REDISCLOSURE OF CONFIDENTIAL INFORMATION This notice accompanies a disclosure of information concerning a client made to you with the consent of such client. FOR RECORDS PERTAINING TO PATIENTS WHO ARE OR HAVE BEEN ENROLLED IN A CHEMICAL DEPENDENCY/SUBSTANCEABUSE PROGRAM, SOME INFORMATION MAY BE OMITTED. This clinical summary was aggregated from multiple sources. Caution should be exercised in using it in the provision of clinical care. This summary normalizes information from multiple sources, and as a consequence, information in this document may materially change the coding, format and clinical context of patient data. In addition, data may be omitted in some cases. CLINICAL DECISIONS SHOULD BE BASED ON THE PRIMARY CLINICAL RECORDS. [employer]. provides no warranty or guarantee of the accuracy or completeness of information in this document.
[2024-11-19 22:38] VITALS: BP 119/70; PULSE 94; RESP 18; TEMP 36.6; O2SAT 92
[2024-11-19 22:53] VITALS: BP 120/68; PULSE 93
[2024-11-19 22:57] LABS: Hematocrit 31.5 % (37-47); Hemoglobin 10.7 g/dL (12.0-15.0); Mean Corp Hgb Conc 34.0 g/dL (32-36); Mean Corpuscular Volume 77.0 fL (81-99); Mean Platelet Vol. 8.7 fl (6.2-12.0); Platelet Count 263 K/mm3 (150-450); RBC Distribution Width CV 14.1 % (11.6-14.6); RBC Distribution Width SD 39.1 fl (35.1-43.9); Red Blood Count 4.09 M/mm3 (4.2-5.4); White Blood Count 13.3 K/mm3 (4.4-11.0)
[2024-11-19 23:00] VITALS: BMI 43.5
[2024-11-19 23:08] VITALS: BP 114/68; PULSE 98
[2024-11-19 23:23] VITALS: BP 116/69; PULSE 98
[2024-11-19 23:26] LABS: Creatinine, Urine (random) 21.40 mg/dL (28.00-217.00); Protein, Urine (Random) 11.1 mg/dL (0.0-12.0); Protein:Creat Ratio 519 mg/g CRE (0-200)
[2024-11-19 23:27] LABS: AST(SGOT) 19 U/L (<=31); Alanine Aminotransfer ALT/SGPT 11 U/L (<=34); Estimated Creatinine Clearance 249.90 ml/min (50-250); Uric Acid 4.4 mg/dL (2.6-6.0)
[2024-11-19 23:38] VITALS: BP 117/68; PULSE 94
--- NOTE | 2024-11-19 23:49 | OB.TRI.NOTE ---
HPI - General General Date of Admission: 11/19/24 Date of Service: 11/19/24 Chief Complaint: headache HPI Narrative SYED FRANK, is a 24 F who presents with a headache for the last 2 week. Took her BP today and it was 150/90s at home. Has not taken BP prior to today. Hx of Pre E in last . Pr/cr was 0.31 at 12 weeks. Labs today normal with 519 urine protein/cr ratio. Headache resolved with Reglan, benadryl and tylenol. All BPs in triage normal. Pt sent with 24 hour urine collection to be complete and turned in to the office on Thursday. Maternal Data Information Final KELLEY: 03[birth year]/25 Gestational age: 24 PFSH PFSH Medical History Colitis GERD (gastroesophageal reflux disease) Hypothyroidism IBS (irritable bowel syndrome) Home Medications ?Medication ?Instructions ?Recorded ?Last Taken ?Type levothyroxine 25 mcg tablet 75 mcg PO DAILY thyroid 01/11/14 11/19/24 History buspirone 15 mg tablet 45 mg PO TID depression 06/30/22 11/19/24 History aspirin 81 mg capsule 162 mg PO QDAY preeclampsia 11/19/24 11/19/24 History esomeprazole magnesium 40 mg 40 mg PO DAILY acid reflux 11/19/24 11/19/24 History capsule,delayed release (Nexium) vit no.95-ferrous 1 tab PO DAILY 11/19/24 11/19/24 History fumarate 28 mg-folic acid 800 mcg tablet () sertraline 50 mg tablet 50 mg PO DAILY anx,depression 11/19/24 11/19/24 History Allergy/AdvReac Type Severity Reaction Status Date / Time No Known Allergies Allergy Verified 11/19/24 22:33 Social History Smoking Status: Current every day smoker tobacco type: e-cigarettes History 2 Elective abortions Hx Para 1 Spontaneous abortions Hx # Term Pregnancies Ectopic pregnancies Hx # Pregnancies Multiple births # of living children NST FHR Rate Baby A Baseline: 130 Variability:: Moderate Accelerations:: 10 x 10 Decelerations:: None NST Reactive:: Yes and Appropriate for gestational age Assessment & Plan (1) Headache in : QUALIFIERS: Trimester: second trimester Qualified Code(s): O26.892 - Other specified related conditions, second trimester; R51.9 - Headache, unspecified (2) 24 weeks gestation of : (3) Proteinuria affecting in second trimester: PLAN: Plan Prn Benadryl and Tylenol for VARGAS. to complete a 24 hour urine
== END 2024-11-20 00:07 | disposition home or self-care (01) ==
LOC: WPOUT 22:15 → WP 22:16
PROVIDERS: PCP Family Medicine; Referring Provider Obstetrics & Gynecology; Visit Provider Obstetrics & Gynecology
DX: O99.891 Other specified diseases and conditions complicating pregnancy (principal); R51.9 Headache, unspecified; K21.9 Gastro-esophageal reflux disease without esophagitis; E03.9 Hypothyroidism, unspecified; Z79.890 Hormone replacement therapy; Z79.82 Long term (current) use of aspirin; Z79.899 Other long term (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 therapy; F17.290 Nicotine dependence, other tobacco product, uncomplicated; Z3A.24 24 weeks gestation of pregnancy; O99.612 Diseases of the digestive system complicating pregnancy, second trimester; O99.282 Endocrine, nutritional and metabolic diseases complicating pregnancy, second trimester; O99.332 Smoking (tobacco) complicating pregnancy, second trimester
CPT/HCPCS: 36415; 59025; 59050; 82565; 82570; 84156; 84450; 84460; 84550; 85027; 99221; G0378

== ENCOUNTER 2024-12-23 17:37 | Outpatient (CLI) | payer MEDICAID, SELFPAY ==
[2024-12-23 17:49] VITALS: BMI 47.5
[2024-12-23 17:58] VITALS: PULSE 108; RESP 14; TEMP 36.8; O2SAT 97
[2024-12-23 17:59] VITALS: BP 120/69; PULSE 110
[2024-12-23 18:03] VITALS: PULSE 104; O2SAT 97
[2024-12-23 18:08] VITALS: PULSE 110; O2SAT 97
[2024-12-23 18:45] LABS: Mucous, Urine 0 SEEN /hpf (<or=2+)
[2024-12-23 18:52] LABS: Color, Urine Yellow (Yellow); Glucose, Dipstick Normal (Normal); Ketone-Dipstick Negative (Negative); Leukocyte Esterase-Dipstick Negative /ul (Negative); Nitrite-Dipstick Negative (Negative); Occult Blood-Urine 10 /ul (Negative); Protein-Dipstick 30 mg/dl (Negative); Specific Gravity, Urine 1.010 (1.002-1.030); Urine Bilirubin Dipstick Negative (Negative)
[2024-12-23 19:07] LABS: ROM Internal Control Test YES-OK TO RESULT pt. (Internal QC); ROM Patient Test Negative (Negative); Record Kit Lot#, ROM+ K3358
[2024-12-23 19:11] LABS: Red Blood Cells-Urine 0-5 SEEN /hpf (0-5); Squamous Epithelial Cells - UA 0-5 SEEN /hpf (5-10)
--- NOTE | 2024-12-23 21:18 | OB.TRI.NOTE ---
HPI - General HPI Narrative SYED FRANK, is a 24 F at 28 weeks gestation who presents to triage with decreased movements. Maternal Data Information KELLEY Calculator Estimated Delivery Date Method Current WG Current Estimate 03/11/25 Manual 28w 6d PFSH PFS Medical History Colitis GERD (gastroesophageal reflux disease) Hypothyroidism IBS (irritable bowel syndrome) Home Medications ?Medication ?Instructions ?Recorded ?Last Taken ?Type levothyroxine 25 mcg tablet 75 mcg PO DAILY thyroid 01/11/14 12/23/24 History buspirone 15 mg tablet 45 mg PO TID depression 06/30/22 12/23/24 History aspirin 81 mg capsule 162 mg PO QDAY preeclampsia 11/19/24 12/22/24 History esomeprazole magnesium 40 mg 40 mg PO DAILY acid reflux 11/19/24 12/23/24 History capsule,delayed release (Nexium) vit no.95-ferrous 1 tab PO DAILY 11/19/24 12/23/24 History fumarate 28 mg-folic acid 800 mcg tablet () sertraline 50 mg tablet 75 mg PO DAILY anx,depression 11/19/24 12/23/24 History Allergy/AdvReac Type Severity Reaction Status Date / Time No Known Allergies Allergy Verified 12/23/24 18:12 Social History Smoking Status: Current every day smoker tobacco type: e-cigarettes History 2 Elective abortions Hx Para 1 Spontaneous abortions Hx # Term Pregnancies Ectopic pregnancies Hx # Pregnancies Multiple births # of living children ROS Eyes Eyes: Denies blurry vision Cardiovascular Cardiovascular: Reports none; Denies chest pain at rest, chest pain with activity or dizziness Respiratory/Chest Respiratory/Chest: Denies cough or dyspnea Gastrointestinal Gastrointestinal: Reports none and other; Denies diarrhea or vomiting Genitourinary Genitourinary: Denies dysuria Musculoskeletal Musculoskeletal: Reports none Integumentary Integumentary: Reports none; Denies rash Neurologic Neurologic: Denies dizziness, headache(s) or other visual disturbances Psychiatric Psychiatric: Reports none Physical Exam Const alert and no apparent distress General Appearance: cooperative Orientation / Consciousness: awake Exam Limitations: no limitations HEENT normocephalic Eyes General Eye: normal appearance of both eyes Neck full ROM Chest inspection of chest normal Resp normal respiratory effort and normal air movement Effort and Inspection: symmetric chest movement Auscultation: clear to auscultation bilaterally Cardio regular rate GI soft to palpation, non-tender and non-distended Inspection: and other Back/Spine normal ROM Extremity full ROM, normal capillary refill and no calf tenderness Skin no rashes or lesions noted Neuro oriented x3 and CN's II-XII intact bilaterally Psych mental status grossly normal NST FHR Rate Baby A Baseline: 140 Variability:: Moderate Accelerations:: 10 x 10 Decelerations:: None NST Reactive:: Appropriate for gestational age Assessment & Plan (1) 28 weeks gestation of : (2) Decreased movement: (3) Urinary frequency: (4) Pelvic pressure in : PLAN: Plan Patient has felt movements since arrival to unit C/O pelvic soreness and pressure and urinary frequency- UA sent- +trace blood and protein Urine culture sent Start Macrobid 100 mg PO BID x 5 days- RX sent CE - closed D/C home with kick counts and ptl precautions Follow up in office this week
--- NOTE | 2024-12-23 21:23 | DCINST_ITS ---
Discharge Instructions DC O2, CPAP, BIPAP needs Home O2 Discharge instructions: No Follow Up Care Test Results: Test results from this visit will be discussed in further detail at your follow- up appointment, if applicable. Discharge Plan Admission Reason For Visit: R/O NO MOVEMENT IN 2 DAYS Attending Provider: Roxana Fry Primary Care Provider: Damian Jackson Discharge Date/Time: 12/23/24 19:49 Instructions Patient Instructions: Kick Counts, ED False Labor, OB Triage: Return to Hospital or Notify Physician if you Experience: Discharge Orders/Prescriptions Prescriptions: New nitrofurantoin monohyd/m-cryst [Macrobid] 100 mg capsule 100 mg PO BID 7 Days Qty: 14 0RF Rx Instructions: Take medication with food to help with GI upset Finish all of medication No Action levothyroxine 25 MCG tablet 75 mcg PO DAILY Patient Comments: low thyroid buspirone 15 mg tablet 45 mg PO TID sertraline 50 mg tablet 75 mg PO DAILY esomeprazole magnesium [Nexium] 40 mg capsule,delayed release(DR/EC) 40 mg PO DAILY PNV cmb#95-ferrous fumarate-FA [] 28 mg iron- 800 mcg tablet 1 tab PO DAILY aspirin 81 mg capsule 162 mg PO QDAY Referrals / Follow Up: Damian Jackson MD [Primary Care Provider] - Disposition Patient Disposition: Home, Self Care
== END 2024-12-23 19:49 | disposition home or self-care (01) ==
LOC: WPOUT 17:42 → WP 17:43
PROVIDERS: PCP Family Medicine; Referring Provider Advanced Practice Midwife; Visit Provider Advanced Practice Midwife
DX: O36.8130 Decreased fetal movements, third trimester, not applicable or unspecified (principal); O99.613 Diseases of the digestive system complicating pregnancy, third trimester; O99.283 Endocrine, nutritional and metabolic diseases complicating pregnancy, third trimester; Z3A.28 28 weeks gestation of pregnancy; Z79.890 Hormone replacement therapy; Z79.82 Long term (current) use of aspirin; Z79.899 Other long term (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 therapy; E03.9 Hypothyroidism, unspecified; K58.9 Irritable bowel syndrome, unspecified; O99.333 Smoking (tobacco) complicating pregnancy, third trimester; F17.290 Nicotine dependence, other tobacco product, uncomplicated; O26.893 Other specified pregnancy related conditions, third trimester; R35.0 Frequency of micturition
CPT/HCPCS: 59025; 59050; 81001; 84112; 87086; 87088; 99221; G0378

== ENCOUNTER 2025-02-17 18:58 | Inpatient (IN) | payer MEDICAID, SELFPAY ==
[2025-02-17] VITALS (7 sets, daily range): BP systolic 109–141; BP diastolic 77–91; PULSE 99–132; RESP 16–32; TEMP 36.4–36.8; O2SAT 95–99; BMI 49.1
--- NOTE | 2025-02-17 19:03 | EKG12_ITS ---
Test Reason : CP Blood Pressure : */* mmHG Vent. Rate : 137 BPM Atrial Rate : 137 BPM P-R Int : 124 ms QRS Dur : 70 ms QT Int : 300 ms P-R-T Axes : 29 39 2 degrees QTcB Int : [address] Nonspecific [address] abnormality Abnormal ECG Confirmed by NIVIA DIAMOND, YADIRA ([id number]), editor map GENE RAZO ([id number]) on 02/20/2025 6:56:41 AM Referred By: Confirmed By: YADIRA GONZÁLES MD
--- NOTE | 2025-02-17 19:18 | RAD_ITS ---
PROCEDURE: CHEST PA AND LATERAL 02/17/2025 REASON FOR EXAM: CHEST PAIN TECHNIQUE: Procedure Code: RADCXR Modality: DX Procedure: CHEST PA AND LATERAL COMPARISON: None. FINDINGS: Lungs/Pleura: Clear. No pneumothorax or pleural effusion. Heart/Mediastinum: Normal in size. Bones/Soft tissues: Unremarkable. RAD/Chest PA and Lateral IMPRESSION: No acute cardiopulmonary disease. Reading Location: [id number]
[2025-02-17 19:32] LABS: Hematocrit 35.2 % (37-47); Hemoglobin 11.7 g/dL (12.0-15.0); Immature Granulocytes Count 0.110 X10^3/uL (0.0-0.0); Mean Corp Hgb Conc 33.2 g/dL (32-36); Mean Corpuscular Volume 76.9 fL (81-99); Mean Platelet Vol. 9.1 fl (6.2-12.0); NRBC Flagged by Analyzer 0 % (0-5); Platelet Count 289 K/mm3 (150-450); RBC Distribution Width CV 16.6 % (11.6-14.6); RBC Distribution Width SD 44.6 fl (35.1-43.9); Red Blood Count 4.58 M/mm3 (4.2-5.4); White Blood Count 13.3 K/mm3 (4.4-11.0)
[2025-02-17 19:44] LABS: Anion Gap 15 (5-15); BUN 8 mg/dL (4-19); BUN/Creat Ratio 14.6 RATIO (10-20); Calcium,Total 9.5 mg/dL (7.6-11.0); Carbon Dioxide 18.8 mmol/L (21.0-32.0); Chloride 102 mmol/L (98-108); Estimated Creatinine Clearance 202.14 ml/min (50-250); Glucose 111 mg/dL (70-99); Potassium 3.8 mmol/L (3.3-5.1); Troponin T High Sensitivity < 6 ng/L (<=14)
--- OUTSIDE RECORDS SUMMARY | 2025-02-17 19:54 | XMS RPT_ITS | CCD ---
Author Organization [facility] Care Team Providers Care Data Specialist Name Role Phone ABNER TINSLEY Unavailable Unavailable ABNER TINSLEY Unavailable Unavailable Ivanauskas, Saulius Unavailable Unavailable Ivanauskderick, Saulius Unavailable Unavailable Derick Montoya Unavailable UnavailGenie Tsang MD Primary Care Provider Genie Jackson MD Primary Care Provider Genie Jackson MD Primary Care Provider Genie Jackson MD Primary Care Provider Genie Jackson Unavailable Trixie Beard Unavailable Unavailable Dr. Genie Jackson Primary Care Unav ailable Mangalileoo, . Trixie Attending Unavail able Onofre Everett Unavailable Unavailable DR GENIE JACKSON MD Primary Care Physician TERRELL AHMADI MD Attending Unavailable DR GENIE JACKSON MD Primary Care Unavailab le Genie Jackson MD Primary Care Provider [place]ann[place] SLIVER LAP 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, Ivelisse Unavailable Husam SLIVER LAP 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Terrell Unavailable [place] SLIVER LAP 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, Ivelisse Unavailable [place] SLIVER LAP 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, Ivelisse Unavailable Dr. Genie Jackson MD Primary Care Provider Dr. Steffanie Lopez MD Attending Provider Dr. Steffanie Lopez MD Referring Provider Roxana Fry CNM Attending Provider Roxana Fry CNM Referring Provider MAYCOL, ELAYNE Referring Unavailable ELDERBROCK, GENIE D Primary Care Unavailable ELDERBROCK, GENIE D Primary Care Unavailable STEFFANIE LOPEZ Attending Unavailable MAYCOL, ELAYNE Attending Unavailable ELDERBROCK, GENIE D Primary Care Unavailable ELDERBROCK, GENIE D Primary Care Unavailable ANDRE SIMPSON Attending Unavailable JIMENA EMMANUEL L Referring Unavailable ELDERBROCK, GENIE D Primary Care Unavailable JIMENA, EMMANUEL L Referring Unavailable ELDERBROCK, GENIE D Primary Care Unavailable ELDERBROCK, GENIE D Primary Care Unavailable DHARA SANCHEZ Attending Unavailable XIMENA HARTMAN Attending Unavailable ELDERBROCK, GENIE D Primary Care Unavailable ELDERBROCK, GENIE D Primary Care Unavailable JIMENA EMMANUEL L Referring Unavailable ELDERBROCK, GENIE D Primary Care Unavailable JIMENA EMMANUEL L Referring Unavailable ELDERBROCK, GENIE D Primary Care Unavailable ELDERBROCK, GENIE D Primary Care Unavailable ELDERBROCK, GENIE D Attending Unavailable JIMENA, EMMANUEL L Referring Unavailable ELDERBROCK, GENIE D Primary Care Unavailable MAYCOL, ELAYNE Referring Unavailable ELDERBROCK, GENIE D Primary Care Unavailable NAVAS, BHARGAVI Attending Unavailable ELDERBROCK, GENIE D Primary Care Unavailable NAVAS, BHARGAVI Attending Unavailable ELDERBROCK, GENIE D Primary Care Unavailable ELDERBROCK, GENIE D Attending Unavailable ELDERBROCK, GENIE D Primary Care Unavailable ELDERBROCK, GENIE D Primary Care Unavailable NAVAS, BHARGAVI Referring Unavailable ELDERBROCK, GENIE D Primary Care Unavailable JIMENA EMMANUEL L Attending Unavailable MAYCOL, ELAYNE Attending Unavailable ELDERBROCK, GENIE D Primary Care Unavailable MAYCOL, ELAYNE Referring Unavailable ELDERBROCK, GENIE D Primary Care Unavailable ELDERBROCK, GENIE D Primary Care Unavailable NAVAS, BHARGAVI Referring Unavailable ELDERBROCK, GENIE D Primary Care Unavailable NAVAS, BHARGAVI Referring Unavailable MAYCOL, ELAYNE Attending Unavailable ELDERBROCK, GENIE D Primary Care Unavailable SELF Referring Unavailable TERRELL CLOUD Attending Unavailable ELDERBROCK, GENIE D Primary Care Unavailable MAYCOL, ELAYNE Referring Unavailable ELDERBROCK, GENIE D Primary Care Unavailable JIMENA, EMMANUEL L Attending Unavailable JIMENA, EMMANUEL Radha Referring Unavailable ELDERBROCK, GENIE D Primary Care Unavailable ELDERBROCK, GENIE D Primary Care Unavailable XIMENA HARTMAN Attending Unavailable ROBERT HESSCA Radha Referring Unavailable ELDERBROCK, GENIE D Primary Care Unavailable ELDERBROCK, GENIE D Primary Care Unavailable DHARA SANCHEZ Attending Unavailable EMMANUEL HESS Referring Unavailable ELDERBROCK, GENIE D Primary Care Unavailable IVELISSE NG Attending Unavailabl e ELDERBROCK, GENIE D Primary Care Unavailable ELAYNE SEVERINO Referring Unavailable ELDERBROCK, GENIE D Primary Care Unavailable ROBERT HESSCA Radha Referring Unavailable ELDERBROCK, GENIE D Primary Care Unavailable DHARA SANCHEZ Attending Unavailable ROBERT HESSCA Radha Referring Unavailable DHARA SANCHEZ Attending Unavailable ELDERBROCK, GENIE D Primary Care Unavailable ELDERBROCK, GENIE D Primary Care Unavailable STEFFANIE LOPEZ Attending Unavailable ELDERBROCAROLINE, GENIE D Primary Care Unavailable ELDERBROCK, GENIE D Primary Care Unavailable ELDERBROCK, GENIE D Primary Care Unavailable ROXANA FRY Attending Unavailable Elderbrock, Genie Primary Care Unavailable Steffanie Lopez Attending Unavailable Steffanie Lopez Referring Unavailable Elderbrock, Genie Primary Care Unavailable Roxana Fry Attending Unavailable Roxana Fry Referring Unavailable Medications Current Medications Medication Drug Class(es) Dates Sig (Normalized) Sig (Original) amoxicillin 875 mg oral tablet (2 sources) Penicillin-class Antibacterial Start: 02-05-2022 End: 02-12-2022 take 1 tablet by mouth twice daily amoxicillin (AMOXIL) 875 mg tablet Take 1 tablet by mouth twice daily for 7 days. 14 tablet 0 02/05/2022 02/12/2022 Active Comment on above: Take 1 tablet by david twice daily for 7 days. amoxicillin 875 mg / clavulanate 125 mg oral tablet (2 sources) Penicillin-class Antibacterial Start: 02-12-2022 End: 02-19-2022 take 1 tablet by mouth twice daily amoxicillin-clavul anic acid (AUGMENTIN) 875-125 mg per tablet Indications: Left ear pain , Frontal sinus pain Take 1 tablet by mouth twice daily for 7 days. 14 tablet 0 02/12/2022 02/19/2022 Active Comment on above: Take 1 tablet by david th twice daily for 7 days. aspirin 81 mg delayed release oral tablet (20 sources) Platelet Aggregation Inhibitor, Nonsteroidal Anti-inflammatory Drug Start: 11-19-2024 take 2 capsules by mouth once daily Aspirin 81 mg capsule Active 162 mg PO daily November 19, 2024 12:00am preeclampsia Start: 08-31-2024 End: 03-11-2025 take 2 tablets by mouth once daily aspirin, enteric coated (ECOTRIN LOW STRENGTH) 81 mg EC tablet Indications: Hx of preeclampsia, prior , currently (HCC) Take 2 tablets by mouth once daily. 60 tablet 3 11/30/2024 03/11/2025 Active Start: 08-01-2024 End: 08-31-2024 take 1 [...] 90 tablet 5 01/22/2024 06/20/2024 Discontinued Start: 06-30-2022 take 3 tablets by mo ut three times daily Buspirone 15 mg tablet Active 45 mg PO THREE TIMES A DAY June 30, 2022 1:00am depression Start: 04-23-2021 End: 11-15-2023 take 1 tablet [...] a day. cephalexin 500 mg oral capsule (7 sources) Cephalosporin Antibacterial Start: End: take 1 capsule by mouth four times daily cephALEXin (KEFLEX) 500 mg capsule Take 1 capsule by mouth four times daily for 5 days. 20 capsule 0 10/07/2023 10/12/2023 Active Start: 03-02-2022 End: 11-19-2024 take 1 capsule by mouth every six hours Cephalexin 500 mg capsule Discontinued 500 mg PO EVERY 6 HOURS 14 0 March 02, 2022 12:00am November 19, 2024 10:36pm esomeprazole 40 mg delayed release oral capsule (20 sources) Proton Pump Inhibitor Start: 06-30-2022 End: 11-19-2024 take 1 capsule by mouth once daily Esomeprazole Magnesium (Nexium) 40 mg capsule,delayed release(DR/EC) Active 40 mg PO DAILY November 19, 2024 12:00am acid reflux Start: 02-17-2022 End: 08-31-2024 take 1 capsule [...] before meal. Take 1 capsule by mo uth twice daily. 1/2 hr before meal. levothyroxine sodium 0.125 mg oral tablet (20 sources) l-Thyroxine Start: 09-30-19 take 0.5 tablet by mouth once daily before breakfast levothyroxine (SYNTHROID) 125 mcg tablet Take 0.5 tablets by mouth daily before breakfast. 15 tablet 3 09/29/2024 Active Start: 04-04-2021 End: 09-29-2024 take 1 tablet by mouth once daily levothyroxine (SYNTHROID) 50 mcg tablet Indications: Hypothyroidism, unspecified type Take 1 tablet by mouth once daily. 30 tablet 11 03/22/2024 09/29/2024 Discontinued Start: 01-11-2014 take 3 tablets by mo [facility] once daily Levothyroxine 25 MCG tablet Active 75 ug PO DAILY January 11, 2014 12:00am thyroid Start: 01-11-2014 take 50 ug by mouth once daily Levothyroxine Active 50 MCG PO DAILY January 10, 2014 11:00pm take 1 tablet by david once daily levothyroxine 50 mcg (0.05 mg) oral tablet ; 1 tab(s) orally once a day Quantity: 0 Refills: 0 Ordered: 22-Aug-2022 Sarah Beth Hicks Generic Substitution Allowed Comment on above: Take 1 tablet by david once daily. metoclopramide 10 mg oral tablet (10 sources) Dopamine-2 Receptor Antagonist Start: 025 take 1 tablet by mouth every six hours as needed metoclopramide HCl (REGLAN) 10 mg tablet Take 1 tablet by mouth four times a day as needed. 60 tablet 11/29/2024 Active metroNIDAZOLE 500 mg oral tablet (5 sources) Nitroimidazole Antimicrobial Start: End: take 1 tablet by mouth twice daily metroNIDAZOLE (FLAGYL) 500 mg tablet Take 1 tablet by mouth two times a day for 7 days. 14 tablet 08/02/2024 08/09/2024 Active nitrofurantoin, macrocrystals 25 mg / nitrofurantoin, monohydrate 75 mg oral capsule (8 sources) Nitrofuran Antibacterial Start: take 1 capsule by mouth twice daily at mealtime nitrofurantoin monohydrate and macrocrystal (MACROBID) 100 mg capsule TAKE 1 CAPSULE BY MOUTH TWICE DAILY for 7 (SEVEN) days. Take medication with food to help with GI upset Finish all OF medication 12/23/2024 Active Start: 09-30-2022 End: 10-05-2022 take 1 capsule by mouth twice daily at mealtime nitrofurantoin monohydrate and macrocrystal (MACROBID) 100 mg capsule Take 1 capsule by mouth twice daily with meals for 5 days. 10 capsule 0 09/30/2022 10/05/2022 Active Comment on above: Take 1 capsule by [facility] twice daily with meals for 5 days. omeprazole 40 mg delayed release oral capsule (1 source) Proton Pump Inhibitor Start: 08-14-19 take 40 mg by mouth once daily Omeprazole Active 40 MG PO DAILY August 13, 2018 12:00am ondansetron 4 mg disintegrating oral tablet (20 sources) Serotonin-3 Receptor Antagonist Start: 12-29-19 25 take 1 tablet by mouth every six hours as needed ondansetron orally disintegrating (ZOFRAN ODT) 4 mg disintegrating tablet Take 1 tablet by mouth every 6 hours as needed for nausea/vomiting. 12 tablet 12/28/2024 Active Start: 07-20-2024 End: 09-29-2024 take 1 tablet by mouth every eight [...] every 6 hours as needed for nausea/vomiting. Pnv Cmb#95-Ferrous Fumarate-Fa () 28 mg iron- 800 mcg tablet (2 sources) Start: 11-20-19 Pnv Cmb#95-Ferrous Fumarate-Fa () 28 mg iron- 800 mcg tablet Active 1 {tbl} PO DAILY November 19, 2024 12:00am polymyxin b [id number] unt/ml / trimethoprim 1 mg/ml ophthalmic solution (2 sources) Dihydrofolate Reductase Inhibitor Antibacterial, Polymyxin-class Antibacterial Start: 02-03-20 End: 02-10-20 take 2 drop(s) into the eye(s) every four hours trimethoprim-polym yxin (POLYTRIM) 10,000 unit- 1 mg/mL ophthalmic solution Use 2 Drops in both eyes every 4 hours for 7 days. 10 mL 0 02/02/2022 02/09/2022 Active Comment on above: Use 2 Drops in both eyes every 4 hours for 7 days. predniSONE 10 mg oral tablet (4 sources) Start: 05-13-19 End: 05-22-19 predniSONE (DELTASONE) 10 mg tablet Indications: Tension [...] on above: Take 2 tablets by mo [facility] once daily for 5 days. VIT 8-EDLL-AHZMR-DHA ORAL (20 sources) VIT 2-BCWS-SICQM-DHA ORAL Take by mouth. Active sertraline 50 mg oral tablet (20 sources) Serotonin Reuptake Inhibitor Start: 11-29-2024 End: 02-04-2025 take 1.5 tablets by mouth once daily sertraline (ZOLOFT) 50 mg tablet Indications: Anxiety with depression Take 1.5 tablets by mouth once daily. 45 tablet 01/05/2025 02/04/2025 Active Start: 11-19-2024 Sertraline 50 mg tablet Active 75 mg PO DAILY November 19, 2024 12:00am anx,depression Start: 06-15-2024 End: 12-12-2024 take 1 tablet by mouth once daily sertraline (ZOLOFT) 50 mg tablet Indications: Anxiety with depression Take 1 tablet by mouth once daily. 30 tablet 5 06/15/2024 11/29/2024 Discontinued Completed/Discontinued Medications Medication Drug Class(es) Dates Sig (Normalized) Sig (Original) [id number] 200 actuat albuterol 0.09 mg/actuat metered dose [...] Comment on above: Take 2 capsules by m out three times daily as needed. dicyclomine hydrochloride [...] Start: 01-22-2024 take 1 tablet by david once daily Drospirenone-Ethinyl Estradiol (PRANEETH, 28,) 3-0.02 [...] days. 28 tablet 11 01/22/2024 02/19/2024 Active ferrous sulfate 325 mg oral tablet (20 sources) Start: 01-01-2021 End: 03-07-2022 take 1 tablet by mouth once daily at breakfast ferrous sulfate 325 mg (65 mg iron) tablet Indications: Iron deficiency anemia secondary to inadequate dietary iron intake Take 1 tablet by mouth daily with breakfast. 90 tablet 1 01/01/2021 03/07/2022 Discontinued take 1 tablet by mouth every oth er day ferrous sulfate 325 mg (65 mg iron) tablet Take 325 mg by mouth every other day. Active Comment on above: Take 1 tablet by david th daily with breakfast. FLUoxetine 20 mg oral capsule (20 sources) Serotonin Reuptake Inhibitor Start: End: take 1 capsule by mouth once daily [...] capsule 5 01/22/2024 06/15/2024 Discontinued Start: 03-02-2022 End: 11-19-2024 take 2 capsules by mouth once daily Fluoxetine 20 mg capsule Discontinued 40 mg PO DAILY March 02, 2022 12:00am November 19, 2024 10:36pm Start: 03-02-2022 take 40 mg by mouth [...] on above: Take 1 capsule by mo [facility] once daily. fluticasone propionate 0.05 mg/actuat metered [...] take 1 capsule by mouth once daily Linaclotide (Linzess) 145 mcg capsule Discontinued 145 ug PO DAILY March 02, 2022 12:00am November 19, 2024 10:36pm Start: 04-05-2021 End: 10-02-2021 take 1 capsule by mouth once daily LINZESS 145 mcg capsule Indications: Chronic constipation Take 1 capsule by mouth once daily. 30 capsule 5 04/05/2021 Active Comment on above: Take 1 capsule by [facility] once daily. methylPREDNISolone (20 sources) Corticosteroid End: 11-10-2023 METHYLPREDNISOLONE ACETATE (DEPO-MEDROL INJECTION) by INJECTION(UNSPECIFIED PARENTERAL ROUTES) route. 11/10/2023 Discontinued End: 11-10-2023 METHYLPREDNISOLONE ACETATE ( DEPO-MEDROL INJECTION) by INJECTION(UNSPECIFIED PARENTERAL ROUTES) route. 0 11/10/2023 Discontinued METHYLPREDNISOLO NE ACETATE (DEPO-MEDROL INJECTION) by INJECTION(UNSPECIFIED PARENTERAL ROUTES) route. 0 Active Comment on above: by INJECTION(UNSPECI FIED PARENTERAL ROUTES) route. potassium chloride 20 meq extended release oral tablet (20 sources) Start: 023 End: 024 take 1 tablet by mouth once daily potassium chloride 20 mEq TbER Take 1 tablet by mouth once daily. 7 tablet 0 09/26/2022 11/10/2023 Discontinued Start: 09-06-2022 End: 11-19-2024 take 1 tablet by mouth twice daily Potassium Chloride 20 mEq tablet extended release Discontinued 20 meq PO TWICE A DAY 14 0 September 06, 2022 12:00am November 19, 2024 10:36pm Start: 08-22-2022 End: 08-26-2022 take 1 tablet [...] 09/29/2024 Discontinued sucralfate 1000 mg oral tablet (6 sources) Aluminum Complex Start: End: take 1 tablet by mouth four times daily Sucralfate 1 GM tablet Discontinued 1 g PO 4 TIMES DAILY 60 0 September 08, 2017 12:00am September 27, 2017 12:59am tiZANidine 4 mg oral tablet (20 sources) Central alpha-2 Adrenergic Agonist Start: 025 End: take 1 tablet by [...] 30 tablet 1 05/13/2024 Active Start: 06-30-2022 End: 11-19-2024 take 1 tablet by mouth every four hours as needed for headache Tizanidine 4 mg tablet Discontinued 4 mg PO EVERY 4 HOURS NEEDED as needed for Headache June 30, 2022 1:00am November 19, 2024 10:36pm Start: 06-25-2021 End: 11-10-2023 take 1 tablet [...] anxiety disorder; Translations: [Generalized anxiety disorder] Onset: 5 Chronic Blindness and vision defects (1 source) Visual disturbance; Translations: [Unspecified visual disturbance] 07-02-2023 Episodic Cardiac dysrhythmias (6 sources) Tachycardia; Translations: [Tachycardia, unspecified] 08-15-2018 Episodic Chronic obstructive pulmonary disease and bronchiectasis (6 sources) Bronchitis; Translations: [Bronchitis, not specified as acute or chronic] 09-27-2017 Episodic Conditions associated with dizziness or vertigo (1 source) Dizziness; Translations: [Dizziness and giddiness] 07-02-2023 Episodic Contraceptive and procreative management (1 source) Encounter for other general counseling and advice on contraception; Translations: [Encounter for other general counseling or advice on contraception] Onset: 5 Episodic Deficiency and other anemia (6 sources) Iron deficiency anemia; Translations: [Iron deficiency anemia, unspecified] 09-27-2017 Episodic Endometriosis (20 sources) Uterine adenomyosis; Translations: [Adenomyosis of the uterus] Onset: 4 11-19-2023 Chronic Esophageal disorders (20 sources) Gastroesophageal reflux disease; Translations: [Gastro-esophageal reflux disease without esophagitis] Onset: 8 10-12-2017 Chronic Fluid and electrolyte disorders (6 sources) Hypokalemia; Translations: [Hypokalemia] Onset: 3 Episodic Gastritis and duodenitis (6 sources) NSAID-associated gastropathy; Translations: [Other gastritis without bleeding] 09-27-2017 Episodic Headache; including migraine (2 sources) Tension-type headache; Translations: [Tension-type headache, unspecified, not intractable] Chronic Headache; including migraine (7 sources) Headache; Translations: [Headache] Onset: 4 07-02-2023 Episodic Headache; including migraine (1 source) Headache; including migraine; Translations: [Headache, unspecified] Onset: 5 Hemorrhoids (6 sources) Hemorrhoids; Translations: [Unspecified hemorrhoids] 09-27-2017 Episodic Hypertension complicating ; childbirth and the puerperium (6 sources) Pre-eclampsia; Translations: [Unspecified pre-eclampsia, unspecified trimester] 09-27-2017 Episodic Immunizations and screening for infectious disease (20 sources) Patient encounter status; Translations: [Encounter for screening for human papillomavirus (HPV)] Onset: 5 11-10-2023 Episodic Inflammation; infection of eye (except that caused by tuberculosis or sexually transmitteddisease) (1 source) Bacterial conjunctivitis; Translations: [Unspecified conjunctivitis] Episodic Lymphadenitis (5 sources) Acute mesenteric adenitis; Translations: [Nonspecific mesenteric lymphadenitis] 06-30-2022 Episodic Malaise and fatigue (1 source) Fatigue; Translations: [Other fatigue] Episodic Mood disorders (7 sources) Recurrent major depression; Translations: [Major depressive disorder, recurrent, unspecified] Chronic Mood disorders (1 source) Mood disorders; Translations: [Anxiety and depression] Onset: 5 Nausea and vomiting (8 sources) Nausea and vomiting; Translations: [Nausea with vomiting, unspecified] Onset: 3 08-15-2018 Episodic Nonmalignant breast conditions (1 source) Pain of breast; Translations: [Mastodynia] 10-07-2023 Episodic Open wounds of head; neck; and trunk (6 sources) Open wound of lip with complication; Translations: [Puncture wound without foreign body of lip, initial encounter] 03-10-2022 Episodic Other aftercare (1 source) Other 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 finisher apprentice (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 therapy; Translations: [Other furniture finisher apprentice (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 therapy] Onset: 3 Episodic Other aftercare (1 source) Post-discharge follow-up; Translations: [Encounter for follow-up examination after completed treatment for conditions other than malignant neoplasm] Episodic Other complications of ; puerperium affecting management of mother (6 sources) Deliveries by vacuum extractor; Translations: [Complication of labor and delivery, unspecified] 09-27-2017 Episodic Other complications of (7 sources) Anemia of ; Translations: [Anemia complicating , third trimester] Onset: 5 12-29-2024 Chronic Other complications of (1 source) Anemia in mother complicating , childbirth AND/OR puerperium; Translations: [Anemia complicating , third trimester] 12-29-2024 Chronic Other complications of (2 sources) Anemia complicating , third trimester; Translations: [Anemia during in third trimester (HCC)] Onset: 5 Chronic Other complications of (1 source) Obesity complicating , unspecified trimester; Translations: [Obesity in (HCC)] Onset: 5 Chronic Other complications of (3 sources) Proteinuria; Translations: [Gestational proteinuria, second trimester] 11-19-2024 Episodic Other complications of (1 source) Maternal care for excessive growth, third trimester, not applicable or unspecified; Translations: [Excessive growth affecting management of in third trimester, single or unspecified fetus (HCC)] Onset: 5 Episodic Other complications of (2 sources) Decreased movements, third trimester, not applicable or unspecified; Translations: [Decreased movements in third trimester, single or unspecified fetus (HCC)] Onset: 5 Episodic Other complications of (1 source) Supervision of other high risk pregnancies, second trimester; Translations: [Supervision of other high risk pregnancies, second trimester (HCC)] Onset: 5 Episodic Other complications of (1 source) Supervision of high risk , unspecified, third trimester; Translations: [Supervision of high risk in third trimester (HCC)] Onset: 5 Episodic Other connective tissue disease (1 source) Pain of left hand; Translations: [Pain in left hand] Episodic Other connective tissue disease (4 sources) Muscle pain; Translations: [Myalgia, unspecified site] [...] Burping; Translations: [Eructation] Episodic Other gastrointestinal disorders (6 sources) Constipation; Translations: [Constipation, unspecified] 09-27-2017 Episodic Other gastrointestinal disorders (2 sources) Diarrhea, unspecified; Translations: [Diarrhea, unspecified] Onset: 3 Episodic Other gastrointestinal disorders (5 sources) Chronic constipation; Translations: [Other constipation] 01-14-2023 Episodic Other injuries and conditions due to external causes (6 sources) Systemic inflammatory response syndrome; Translations: [Systemic [...] Chronic Other nutritional; endocrine; and metabolic disorders (20 sources) Body mass index 30+ - obesity; Translations: [Body mass index (BMI) 38.0-38.9, adult] Onset: 5 08-01-2024 Chronic Other screening for suspected conditions (not mental disorders or infectious disease) (20 sources) Cancer cervix screening status; Translations: [Encounter for screening for malignant neoplasm of cervix] Onset: 5 11-10-2023 Episodic Other upper respiratory disease (1 source) Frontal sinus pain; Translations: [Other specified disorders of nose and nasal sinuses] Episodic Other upper respiratory infections (8 sources) Viral upper respiratory tract infection; Translations: [Acute upper respiratory infection, unspecified] Episodic Otitis media and related conditions (1 source) Acute left otitis media; Translations: [Otitis media, unspecified, left ear] Episodic Polyhydramnios and other problems of amniotic cavity (1 source) Polyhydramnios, third trimester, not applicable or unspecified; Translations: [Polyhydramnios in third trimester complication, single or unspecified fetus (HCC)] Onset: Episodic Residual codes; unclassified (1 source) Early satiety; Translations: [Early satiety] Episodic Residual codes; unclassified (6 sources) Gestation period, 38 weeks; Translations: [38 weeks gestation of ] 09-27-2017 Episodic Residual codes; unclassified (1 source) Confusional state; Translations: [Disorientation, unspecified] Episodic Residual codes; unclassified (8 sources) Gestation period, 6 weeks; Translations: [Less than 8 weeks gestation of ] Onset: 5 07-20-2024 Episodic Residual codes; unclassified (4 sources) Gestation period, 8 weeks; Translations: [8 weeks gestation of ] 08-01-2024 Episodic Residual codes; unclassified (2 sources) Gestation period, 16 weeks; Translations: [16 weeks gestation of ] 09-29-2024 Episodic Residual codes; unclassified (1 source) Gestation period, 20 weeks; Translations: [20 weeks gestation of ] 10-26-2024 Episodic Residual codes; unclassified (1 source) Gestation period, 25 weeks; Translations: [25 weeks gestation of ] 11-29-2024 Episodic Residual codes; unclassified (2 sources) Gestation period, 24 weeks; Translations: [24 weeks gestation of ] 11-20-2024 Episodic Residual codes; unclassified (1 source) Gestation period, 29 weeks; Translations: [29 weeks gestation of ] 12-28-2024 Episodic Residual codes; unclassified (2 sources) Gestation period, 31 weeks; Translations: [31 weeks gestation of ] 01-12-2025 Episodic Residual codes; unclassified (1 source) 36 weeks gestation of ; Translations: [36 weeks gestation of (HCC)] Onset: 5 Episodic Residual codes; unclassified (1 source) 31 weeks gestation of ; Translations: [31 weeks gestation of (HCC)] Onset: 5 Episodic Residual codes; unclassified (1 source) 35 weeks gestation of ; Translations: [35 weeks gestation of (HCC)] Onset: 5 Episodic Residual codes; unclassified (1 source) 34 weeks gestation of ; Translations: [34 weeks gestation of (HCC)] Onset: 5 Episodic Residual codes; unclassified (1 source) 33 weeks gestation of ; Translations: [33 weeks gestation of (HCC)] Onset: 5 Episodic Residual codes; unclassified (1 source) 29 weeks gestation of ; Translations: [29 weeks gestation of (HCC)] Onset: 5 Episodic Residual codes; unclassified (1 source) 25 weeks gestation of ; Translations: [25 weeks gestation of (HCC)] Onset: 5 Episodic Spondylosis; intervertebral disc disorders; other back problems (9 sources) Disorder of right sciatic nerve; Translations: [Sciatica, right side] Onset: 5 12-28-2024 Episodic Superficial injury; contusion (6 sources) Foreign body in lip; Translations: [Superficial foreign body of lip, initial encounter] 03-10-2022 Episodic Thyroid disorders (20 sources) Hypothyroidism; Translations: [Hypothyroidism, unspecified] Onset: 2 04-29-2021 Chronic Unclassified (2 sources) STOMACH PAIN, VOMTTING 08-22-2022 Comment on above: STOMACH PAIN, VOMTTI NG Unclassified (2 sources) RIGHT HAND PAIN, LOW POTASIUM 10-12-2022 Comment on above: RIGHT HAND PAIN, LOW POTASIUM Unclassified (20 sources) [facility] Education - COMMON Onset: 5 08-01-2024 Unclassified (20 sources) Education - [place] Onset: 5 08-01-2024 Unclassified (1 source) Care Onset: Unclassified (1 source) Rubella non-immune status, antepartum ([facility]); Translations: [Rubella non-immune status, antepartum ([facility])] Onset: Urinary tract infections (1 source) Acute urinary tract infection; Translations: [Urinary tract infection, site not specified] Episodic Viral infection (1 source) Viral disease; Translations: [Viral infection, unspecified] 04-14-2024 Episodic Past or Other Problems Problem Classification Problem Date Documented Da te Episodic/Chronic Abdominal pain (20 sources) Abdominal pain; Translations: [Unspecified abdominal pain] Onset: 07-26-2013 Resolved: 11-10-2023 07-26-2013 Episodic Gastrointestinal hemorrhage (20 sources) Hematochezia; Translations: [Melena] Onset: 07-30-2020 Resolved: 11-10-2023 07-30-2020 Episodic Menstrual disorders (20 sources) Menorrhagia; Translations: [Excessive and frequent menstruation with regular cycle] Onset: 03-08-2012 Resolved: 11-10-2023 03-08-2012 Chronic Other complications of (20 sources) Vomiting of , unspecified; Translations: [Unspecified vomiting of , unspecified as to episode of care or not applicable] Onset: 07-20-2024 Resolved: 09-29-2024 07-20-2024 Episodic Other complications of (20 sources) History of pre-eclampsia; Translations: [Supervision of with other poor reproductive or obstetric history, unspecified trimester] Onset: 08-01-2024 08-01-2024 Episodic Other complications of (20 sources) High risk ; Translations: [Supervision of other high risk pregnancies, second trimester] Onset: 08-01-2024 08-31-2024 Episodic Other complications of (20 sources) Rubella non-immune; Translations: [Supervision of other high risk pregnancies, unspecified trimester] Onset: 08-31-2024 08-31-2024 Episodic Other complications of (1 source) Supervision of with other poor reproductive or obstetric history, unspecified trimester; Translations: [Hx of preeclampsia, prior , currently ([facility])] Onset: 08-31-2024 Episodic Other complications of (1 source) Supervision of other high risk pregnancies, unspecified trimester; Translations: [Rubella non-immune status, antepartum (HCC)] Onset: 08-31-2024 Episodic Other gastrointestinal disorders (17 sources) Alteration in bowel elimination; Translations: [Change in bowel habit] Onset: 09-30-2017 09-30-2017 Episodic Other gastrointestinal disorders (20 sources) Altered bowel function; Translations: [Change in bowel habit] Onset: 09-30-2017 Resolved: 09-29-2024 09-30-2017 Episodic Other infections; including parasitic (20 sources) Infection by Trichomonas; Translations: [Trichomoniasis, unspecified] Onset: 08-02-2024 08-02-2024 Episodic Other infections; including parasitic (1 source) Trichomoniasis, unspecified; Translations: [Trichomoniasis] Onset: 08-31-2024 Episodic Other and delivery including normal (8 sources) Normal ; Translations: [Encounter for supervision of other normal , unspecified trimester] Onset: 08-01-2024 08-01-2024 Episodic Residual codes; unclassified (2 sources) Tobacco use; Translations: [Tobacco use] Onset: 08-22-2022 Episodic Residual codes; unclassified (20 sources) History of hemorrhage; Translations: [Personal history of other complications of , childbirth and the puerperium] Onset: 08-01-2024 08-01-2024 Episodic Residual codes; unclassified (20 sources) Gestation period, 12 weeks; Translations: [12 weeks gestation of ] Onset: 07-20-2024 Resolved: 09-29-2024 08-31-2024 Episodic Residual codes; unclassified (20 sources) Nicotine-filled electronic cigarette user; Translations: [Tobacco use] Onset: 08-31-2024 08-31-2024 Episodic Residual codes; unclassified (1 source) 20 weeks gestation of ; Translations: [20 weeks gestation of (HCC)] Onset: 10-26-2024 Episodic Residual codes; unclassified (1 source) 8 weeks gestation of ; Translations: [8 weeks gestation of (HCC)] Onset: 10-26-2024 Episodic Residual codes; unclassified (1 source) 16 weeks gestation of ; Translations: [16 weeks gestation of (HCC)] Onset: 09-29-2024 Episodic Residual codes; unclassified (1 source) 12 weeks gestation of ; Translations: [12 weeks gestation of ([facility])] Onset: 08-31-2024 Episodic Residual codes; unclassified (1 source) Personal history of other complications of , childbirth and the puerperium; Translations: [History of hemorrhage] Onset: 08-31-2024 Episodic Results Test Name Value Interpretation Reference Range Facility CBC W Auto Differential pane l (Bld)on 01-27-2025 Basophils (Bld) [#/Vol] 0.06 10*3/uL Normal <0.11 [facility] Comment on above: Order Comment: Speci men Type: BLOOD SPECIMENOrdering Facility: [facility] Address: [address] [place] [address] Performed By: #### 5 7021-8 ####[facility] LABCLIA [id number] [place] [address] [place] Basophils/100 WBC (Bld) 0.5 % Normal [facility] Comment on above: Order Comment: Speci men Type: BLOOD SPECIMENOrdering Facility: [facility] Address: [address] [place] [address] Performed By: #### 5 7021-8 ####[facility] LABCLIA [id number] [place] [address] [place] Differential cell count method Nom (Bld) Auto Normal [facility] Comment on above: Order Comment: Speci men Type: BLOOD SPECIMENOrdering Facility: [facility] Address: [address] [place] [address] Performed By: #### 5 7021-8 ####[facility] LABIA [id number] [place] [address] [place] Eosinophils (Bld) [#/Vol] 0.20 10*3/uL Normal <0.46 [facility] Comment on above: Order Comment: Speci men Type: BLOOD SPECIMENOrdering Facility: [facility] Address: [address] [place] [address] Performed By: #### 5 7021-8 ####[facility] LABCLIA [id number] [place] [address] [place] Eosinophils/100 WBC (Bld) 1.7 % Normal [facility] Comment on above: Order Comment: Speci men Type: BLOOD SPECIMENOrdering Facility: [facility] Address: [address] [place] [address] Performed By: #### 5 7021-8 ####[facility] LABCLIA [id number] [address], [place] [address] [place] Erythrocyte distribution width (RBC) [Ratio] 15.6 % High 11.5-15.0 [facility] Comment on above: Order Comment: Speci men Type: BLOOD SPECIMENOrdering Facility: [facility] Address: [address] [place] [address] Performed By: #### 5 7021-8 ####[facility] LABIA [id number] [place] [address] [place] Hematocrit (Bld) [Volume fraction] 34.8 % Low 36.0-46.0 [facility] Comment on above: Order Comment: Speci men Type: BLOOD SPECIMENOrdering Facility: [facility] Address: [address] [place] [address] Performed By: #### 5 7021-8 ####[facility] LABCLIA [id number] [place] [address] [place] Hemoglobin (Bld) [Mass/Vol] 11.2 g/dL Low 11.5-15.5 [facility] Comment on above: Order Comment: Speci men Type: BLOOD SPECIMENOrdering Facility: [facility] Address: [address] [place] [address] Performed By: #### 5 7021-8 ####[facility] LABIA [id number] [address] [id number] [address] [place] Immature granulocytes (Bld) [#/Vol] 0.22 10*3/uL High <0.10 [facility] Comment on above: Order Comment: Speci men Type: BLOOD SPECIMENOrdering Facility: [facility] Address: [address] [place] [address] Performed By: #### 5 7021-8 ####[facility] LABCLIA [id number] [place] [address] [place] Immature granulocytes/100 WBC (Bld) 1.9 % Normal [facility] Comment on above: Order Comment: Speci men Type: BLOOD SPECIMENOrdering Facility: [facility] Address: [address] [place] [address] Performed By: #### 5 7021-8 ####[facility] LABCLIA [id number] [place] [address] [place] Lymphocytes (Bld) [#/Vol] 1.70 10*3/uL Normal 1.00-4.00 [facility] Comment on above: Order Comment: Speci men Type: BLOOD SPECIMENOrdering Facility: [facility] Address: [address] [place] [address] Performed By: #### 5 7021-8 ####[facility] LABCLIA [id number] [place] [address] [place] Lymphocytes/100 WBC (Bld) 14.9 % Normal [facility] Comment on above: Order Comment: Speci men Type: BLOOD SPECIMENOrdering Facility: [facility] Address: [address] [place] [address] Performed By: #### 5 7021-8 ####[facility] LABCLIA [id number] [place] [address] [place] MCH (RBC) [Entitic mass] 25.3 pg Low 26.0-34.0 [facility] Comment on above: Order Comment: Speci men Type: BLOOD SPECIMENOrdering Facility: [facility] Address: [address] [place] [address] Performed By: #### 5 7021-8 ####[facility] LABCLIA [id number] [address], [place] [address] [place] MCHC (RBC) [Mass/Vol] 32.2 g/dL Normal 30.5-36.0 [facility] Comment on above: Order Comment: Speci men Type: BLOOD SPECIMENOrdering Facility: [facility] Address: [address] [place] [address] Performed By: #### 5 7021-8 ####[facility] LABIA [id number] [address], [place] [address] [place] MCV (RBC) [Entitic vol] 78.6 fL Low 80.0-100.0 [facility] Comment on above: Order Comment: Speci men Type: BLOOD SPECIMENOrdering Facility: [facility] Address: [address] [place] [address] Performed By: #### 5 7021-8 ####[facility] LABIA [id number] [address], [place] [address] [place] Monocytes (Bld) [#/Vol] 0.92 10*3/uL High <0.87 [facility] Comment on above: Order Comment: Speci men Type: BLOOD SPECIMENOrdering Facility: [facility] Address: [address] [place] [address] Performed By: #### 5 7021-8 ####[facility] LABCLIA [id number] [place] [id number] [place] Monocytes/100 WBC (Bld) 8.0 % Normal [facility] Comment on above: Order Comment: Speci men Type: BLOOD SPECIMENOrdering Facility: [facility] Address: [address] [place] [address] Performed By: #### 5 7021-8 ####[facility] LABIA [id number] [place] [id number] [place] Neutrophils (Bld) [#/Vol] 8.34 10*3/uL High 1.45-7.50 [facility] Comment on above: Order Comment: Speci men Type: BLOOD SPECIMENOrdering Facility: [facility] Address: [address] [place] [address] Performed By: #### 5 7021-8 ####[facility] LABCLIA [id number] [facility] [place] [address] [place] Neutrophils/100 WBC (Bld) 73.0 % Normal [facility] Comment on above: Order Comment: Speci men Type: BLOOD SPECIMENOrdering Facility: [facility] Address: [address] [place] [address] Performed By: #### 5 7021-8 ####[facility] LABCLIA [id number] [place] [address] [place] Nucleated RBC (Bld) [#/Vol] 10*3/uL Normal <0.01 [facility] Comment on above: Order Comment: Speci men Type: BLOOD SPECIMENOrdering Facility: [facility] Address: [address] [place] [address] Performed By: #### 5 7021-8 ####[facility] LABCLIA [id number] [place] [address] [place] Nucleated RBC/100 WBC (Bld) [Ratio] 0.0 /100 WBC Normal [facility] Comment on above: Order Comment: Speci men Type: BLOOD SPECIMENOrdering Facility: [facility] Address: [address] [place] [address] Performed By: #### 5 7021-8 ####[facility] LABCLIA [id number] [place] [address] [place] Platelet mean volume (Bld) [Entitic vol] 9.4 fL Normal 9.0-12.7 [facility] Comment on above: Order Comment: Speci men Type: BLOOD SPECIMENOrdering Facility: [facility] Address: [address] [place] [address] Performed By: #### 5 7021-8 ####[facility] LABIA [id number] [place] [id number] [place] Platelets (Bld) [#/Vol] 274 10*3/uL Normal 150-400 [facility] Comment on above: Order Comment: Speci men Type: BLOOD SPECIMENOrdering Facility: [facility] Address: [address] [place] [address] Performed By: #### 5 7021-8 ####[facility] LABIA [id number] [place] [address] [place] RBC (Bld) [#/Vol] 4.43 10*6/uL Normal 3.90-5.20 [facility] Comment on above: Order Comment: Speci men Type: BLOOD SPECIMENOrdering Facility: [facility] Address: [address] [place] [address] Performed By: #### 5 7021-8 ####[facility] LABIA [id number] [place] [address] [place] WBC (Bld) [#/Vol] 11.44 10*3/uL High 3.70-11.00 [facility] Comment on above: Order Comment: Speci men Type: BLOOD SPECIMENOrdering Facility: [facility] Address: [address] [place] [address] Performed By: #### 5 7021-8 ####[facility] LABIA [id number] [place] [id number] [place] T4 Free SerPl-mCncon 025 Free T4 [Mass/Vol] 0.9 ng/dL Normal 0.9-1.7 [facility] Comment on above: Order Comment: Speci men Type: BLOOD SPECIMENOrdering Facility: [facility] Address: [address] [place] [address] Performed By: #### 3 024-7, 3016-3 ####[facility] LABCLIA [id number] [place] [address] [place] TSH SerPl-aCncon 01-27-2025 TSH Qn 2.210 m[IU]/L Normal 0.270-4.200 [facility] Comment on above: Order Comment: Speci men Type: BLOOD SPECIMENOrdering Facility: [facility] Address: [address] [place] [address] Result Comment: If t he patient is [...] Santiago, et al. 2017 Guidelines of the [place] [employer] for the Diagnosis and Management of Thyroid Disease during and the . Thyroid, 2017:27:3:315-389. Performed By: #### 3 024-7, 3016-3 ####[facility] LABCLIA [id number] [place] [id number] [facility]2025 CNPN Telephone (OBGYWM) -- JANET FRANK ([id number]) 2000 F CHT Date Time Provider Department 01/25/25 EMMANUEL HESS OBADONAY During your visit today, we recorded the following information about you: Vincent Hale RN 01/25/2025 9:48 AM Signed Emmanuel Hess MD to [facility] Ob-Drag Out Worker Pool 01/25/25 8:37 AM Result Note weekly NST alternating w/ weekly BPP please. Emmanuel Hess MD OBSTETRIC ULTRASOUND [facility] Vincent Hale RN 01/25/2025 9:49 AM Addendum BPP order pending. Please file and will contact Pt to get appointments scheduled. US on 02/07/25 at 11am placed on hold as Pt has OB appt with KJ at 11:20am. VENKATESH Walker Tara, RN 01/25/2025 10:25 AM Addendum Contacted Pt and appts scheduled. US to [facility]. Vincent Hale RN Allergies As of Date: 01/25/2025 (No Known Allergies) Date Reviewed: 01/24/2025 Reviewed by: Lela Garcia MA - Fully Assessed Reason for Visit: Appointment [186] Primary Visit Diagnosis:Supervision of high risk in third trimester ([facility]) [O09.93] Other Visit Diagnoses:Obesity in ([facility]) [O99.210] Polyhydramnios in third trimester complication, single or unspecified fetus ([facility]) [O40.3XX0] Order(s):BIOPHYSICAL PROFILE [facility] [1661401] Order #: [id number]: 1 STANDING Prescriptions as of 01/25/2025 - levothyroxine (SYNTHROID) 125 mcg tablet Take 0.5 tablets by mouth daily before breakfast. - ferrous sulfate 325 mg (65 mg iron) tablet Take 325 mg by mouth every other day. - sertraline (ZOLOFT) 50 mg tablet Take 1.5 tablets by mouth once daily. - ondansetron orally disintegrating (ZOFRAN ODT) 4 mg disintegrating tablet Take 1 tablet by mouth every 6 hours as needed for nausea/vomiting. - aspirin, enteric coated (ECOTRIN LOW STRENGTH) 81 mg EC tablet Take 2 tablets by mouth once daily. - esomeprazole (NEXIUM) 40 mg capsule Take 40 mg by mouth once daily. - metoclopramide HCl (REGLAN) 10 mg tablet Take 1 tablet by mouth four times a day as needed. - busPIRone (BUSPAR) 15 mg tablet Take 1 tablet by mouth three times a day. - VIT 3-NTFA-HJNFK-DHA ORAL Take by mouth. Problem List As Of Date 01/25/2025 Noted Resolved Hypothyroidism [E03.9] 03/08/2012 Menorrhagia [N92.0] [...] Abnormal results of thyroid function studies [R*09/27/2024 Contraceptive management [Z30.9] 12/28/2024 Sciatica of right side [M54.31] 12/28/2024 Anemia during in third trimester (HCC*12/29/2024 Encounter Status:Closed by VINCENT HALE on 01/25/25 Normal [facility] Peggy 12-29-2024 CNPN Telephone (OBGYWM) -- JANET FRANK ([id number]) 2000 F CHT Date Time Provider Department 12/29/24 STEFFANIE LOPEZ During your visit today, we recorded the following information about you: Vincent Hale RN 12/29/2024 12:45 PM Signed 29w5d Pt call re: [facility] asking if she is anemic. Please review labs drawn on 12/28/24 and advise. Ferritin AND TIBC were drawn AND Anemia reflex panel in process. Pt denies chest pain, short of breath, light headedness/dizziness at this time. Pt did receive blood transfusion post delivery with 1st child shauna. VENKATESH Walker Jennifer, MD 12/29/2024 2:55 PM Signed Hgb 10.5 Borderline anemic. Can start taking iron every other day and repeat labs in 4 weeks Allergies As of Date: 12/29/2024 (No Known Allergies) Date Reviewed: 12/28/2024 Reviewed by: Emmanuel Hess MD - Fully Assessed Reason for Visit: Results [95] Primary Visit Diagnosis:Anemia complicating , third trimester (HCC) [O99.013] Order(s):COMPLETE BLOOD COUNT AND DIFFERENTIAL [SQCBCDIF] Order #: [id number] FUTURE Prescriptions as of 12/29/2024 - nitrofurantoin monohydrate and macrocrystal (MACROBID) 100 mg capsule TAKE 1 CAPSULE BY MOUTH TWICE DAILY for 7 (SEVEN) days. Take medication with food to help with GI upset Finish all OF medication - ondansetron orally disintegrating (ZOFRAN ODT) 4 mg disintegrating tablet Take 1 tablet by mouth every 6 hours as needed for nausea/vomiting. - aspirin, enteric coated (ECOTRIN LOW STRENGTH) 81 mg EC tablet Take 2 tablets by mouth once daily. - esomeprazole (NEXIUM) 40 mg capsule Take 40 mg by mouth once daily. - metoclopramide HCl (REGLAN) 10 mg tablet Take 1 tablet by mouth four times a day as needed. - sertraline (ZOLOFT) 50 mg tablet Take 1.5 tablets by mouth once daily. - levothyroxine (SYNTHROID) 125 mcg tablet Take 0.5 tablets by mouth daily before breakfast. - busPIRone (BUSPAR) 15 mg tablet Take 1 tablet by mouth three times a day. - VIT 9-[id number]-LXYWC-DHA ORAL Take by mouth. Problem List As Of Date 12/29/2024 Noted Resolved Hypothyroidism [E03.9] 03/08/2012 Menorrhagia [N92.0] [...] Abnormal results of thyroid function studies [R*09/27/2024 Contraceptive management [Z30.9] 12/28/2024 Sciatica of right side [M54.31] 12/28/2024 Anemia during in third trimester (HCC*12/29/2024 Encounter Status:Closed by VINCENT HALE on 12/29/24 Normal [facility] Telephone (QTL105) -- JANET FRANK ([id number]) 2000 F T Date Time Provider Department 12/29/24 STEFFANIE NEELY [id number] During your visit today, we recorded the following information about you: Steffanie Neely RN 12/29/2024 9:10 AM Signed 3rd risk assessment form submitted 12/29/2024. 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 Prescriptions as of 12/29/2024 - nitrofurantoin monohydrate and macrocrystal (MACROBID) 100 mg capsule TAKE 1 CAPSULE BY MOUTH TWICE DAILY for 7 (SEVEN) days. Take medication with food to help with GI upset Finish all OF medication - ondansetron orally disintegrating (ZOFRAN ODT) 4 mg disintegrating tablet Take 1 tablet by mouth every 6 hours as needed for nausea/vomiting. - aspirin, enteric coated (ECOTRIN LOW STRENGTH) 81 mg EC tablet Take 2 tablets by mouth once daily. - esomeprazole (NEXIUM) 40 mg capsule Take 40 mg by mouth once daily. - metoclopramide HCl (REGLAN) 10 mg tablet Take 1 tablet by mouth four times a day as needed. - sertraline (ZOLOFT) 50 mg tablet Take 1.5 tablets by mouth once daily. - levothyroxine (SYNTHROID) 125 mcg tablet Take 0.5 tablets by mouth daily before breakfast. - busPIRone (BUSPAR) 15 mg tablet Take 1 tablet by mouth three times a day. - VIT 2-RJRV-SBWZU-DHA ORAL Take by mouth. Problem List As Of Date 12/29/2024 Noted Resolved Hypothyroidism [E03.9] 03/08/2012 Menorrhagia [N92.0] [...] Abnormal results of thyroid function studies [R*09/27/2024 Contraceptive management [Z30.9] 12/28/2024 Sciatica of right side [M54.31] 12/28/2024 Encounter Status:Closed by STEFFANIE NEELY on 12/29/24 Normal [facility] CBC W Auto Differential pane l (Bld)on 12-28-2024 Basophils (Bld) [#/Vol] 0.05 10*3/uL Normal <0.11 [facility] Comment on above: Order Comment: Speci men Type: BLOOD SPECIMENOrdering Facility: [facility] Address: [address] [place], [place] [address] Performed By: #### 5 7021-8 ####[facility] [id number] [place] [address] [place] Basophils/100 WBC (Bld) 0.4 % Normal [facility] Comment on above: Order Comment: Speci men Type: BLOOD SPECIMENOrdering Facility: [facility] Address: [address] [place] [address] Performed By: #### 5 7021-8 ####[facility] [id number] [place] [address] [place] Differential cell count method Nom (Bld) Auto Normal [facility] Comment on above: Order Comment: Speci men Type: BLOOD SPECIMENOrdering Facility: [facility] Address: [address] [place] [address] Performed By: #### 5 7021-8 ####[facility]ENTERLIA [id number] [place] [address] [place] Eosinophils (Bld) [#/Vol] 0.14 10*3/uL Normal <0.46 [facility] Comment on above: Order Comment: Speci men Type: BLOOD SPECIMENOrdering Facility: [facility] Address: [address] [place] [address] Performed By: #### 5 7021-8 ####[facility] [id number] [place] [address] [place] Eosinophils/100 WBC (Bld) 1.2 % Normal [facility] Comment on above: Order Comment: Speci men Type: BLOOD SPECIMENOrdering Facility: [facility] Address: [address] [place] [address] Performed By: #### 5 7021-8 ####[facility] [id number] [place] [address] [place] Erythrocyte distribution width (RBC) [Ratio] 13.4 % Normal 11.5-15.0 [facility] Comment on above: Order Comment: Speci men Type: BLOOD SPECIMENOrdering Facility: [facility] Address: [address] [place] [address] Performed By: #### 5 7021-8 ####[facility] [id number] [place] [address] [place] Hematocrit (Bld) [Volume fraction] 31.2 % Low 36.0-46.0 [facility] Comment on above: Order Comment: Speci men Type: BLOOD SPECIMENOrdering Facility: [facility] Address: [address] [place] [address] Performed By: #### 5 7021-8 ####[facility] [id number] [place] [address] [place] Hemoglobin (Bld) [Mass/Vol] 10.5 g/dL Low 11.5-15.5 [facility] Comment on above: Order Comment: Speci men Type: BLOOD SPECIMENOrdering Facility: [facility] Address: [address] [place] [address] Performed By: #### 5 7021-8 ####[facility] [id number] [place] [address] [place] Immature granulocytes (Bld) [#/Vol] 0.18 10*3/uL High <0.10 [facility] Comment on above: Order Comment: Speci men Type: BLOOD SPECIMENOrdering Facility: [facility] Address: [address] [place] [address] Performed By: #### 5 7021-8 ####[facility] JENNIFERWNCLIA [id number] [place] [address] [place] Immature granulocytes/100 WBC (Bld) 1.5 % Normal [facility] Comment on above: Order Comment: Speci men Type: BLOOD SPECIMENOrdering Facility: [facility] Address: [address] [place] [address] Performed By: #### 5 7021-8 ####[facility]ITALNCLIA [id number] [place] [address] [place] Lymphocytes (Bld) [#/Vol] 1.60 10*3/uL Normal 1.00-4.00 [facility] Comment on above: Order Comment: Speci men Type: BLOOD SPECIMENOrdering Facility: [facility] Address: [address] [place] [address] Performed By: #### 5 7021-8 ####[facility]ITALNCLIA [id number] [place] [address] [place] Lymphocytes/100 WBC (Bld) 13.4 % Normal [facility] Comment on above: Order Comment: Speci men Type: BLOOD SPECIMENOrdering Facility: [facility] Address: [address] [place] [address] Performed By: #### 5 7021-8 ####[facility]ITALNCLIA [id number] [place] [address] [place] MCH (RBC) [Entitic mass] 25.5 pg Low 26.0-34.0 [facility] Comment on above: Order Comment: Speci men Type: BLOOD SPECIMENOrdering Facility: [facility] Address: [address] [place] [address] Performed By: #### 5 7021-8 ####[facility] [id number] [place] [address] [place] MCHC (RBC) [Mass/Vol] 33.7 g/dL Normal 30.5-36.0 [facility] Comment on above: Order Comment: Speci men Type: BLOOD SPECIMENOrdering Facility: [facility] Address: [address] [place] [address] Performed By: #### 5 7021-8 ####[facility] [id number] [place] [address] [place] MCV (RBC) [Entitic vol] 75.9 fL Low 80.0-100.0 [facility] Comment on above: Order Comment: Speci men Type: BLOOD SPECIMENOrdering Facility: [facility] Address: [address] [place] [address] Performed By: #### 5 7021-8 ####[facility] [id number] [place] [address] [place] Monocytes (Bld) [#/Vol] 0.75 10*3/uL Normal <0.87 [facility] Comment on above: Order Comment: Speci men Type: BLOOD SPECIMENOrdering Facility: [facility] Address: [address] [place] [address] Performed By: #### 5 7021-8 ####[facility] [id number] [place] [address] [place] Monocytes/100 WBC (Bld) 6.3 % Normal [facility] Comment on above: Order Comment: Speci men Type: BLOOD SPECIMENOrdering Facility: [facility] Address: [address] [place] [address] Performed By: #### 5 7021-8 ####[facility]ENTERLI [id number] [place] [address] [place] Neutrophils (Bld) [#/Vol] 9.18 10*3/uL High 1.45-7.50 [facility] Comment on above: Order Comment: Speci men Type: BLOOD SPECIMENOrdering Facility: [facility] Address: [address] [place] [address] Performed By: #### 5 7021-8 ####[facility] [id number] [place] [address] [place] Neutrophils/100 WBC (Bld) 77.2 % Normal [facility] Comment on above: Order Comment: Speci men Type: BLOOD SPECIMENOrdering Facility: [facility] Address: [address] [place] [address] Performed By: #### 5 7021-8 ####[facility] [id number] [place] [address] [place] Nucleated RBC (Bld) [#/Vol] 10*3/uL Normal <0.01 [facility] Comment on above: Order Comment: Speci men Type: BLOOD SPECIMENOrdering Facility: [facility] Address: [address] [place] [address] Performed By: #### 5 7021-8 ####[facility] [id number] [place] [address] [place] Nucleated RBC/100 WBC (Bld) [Ratio] 0.0 /100 WBC Normal [facility] Comment on above: Order Comment: Speci men Type: BLOOD SPECIMENOrdering Facility: [facility] Address: [address] [place] [address] Performed By: #### 5 7021-8 ####[facility] [id number] [place] [address] [place] Platelet mean volume (Bld) [Entitic vol] 8.6 fL Low 9.0-12.7 [facility] Comment on above: Order Comment: Speci men Type: BLOOD SPECIMENOrdering Facility: [facility] Address: [address] [place] [address] Performed By: #### 5 7021-8 ####[facility] DRISSNCLIA [id number] [place] [address] [place] Platelets (Bld) [#/Vol] 268 10*3/uL Normal 150-400 [facility] Comment on above: Order Comment: Speci men Type: BLOOD SPECIMENOrdering Facility: [facility] Address: [address] [place] [address] Performed By: #### 5 7021-8 ####[facility] BARBINEW LIBERTYNCLIA [id number] [place] [address] [place] RBC (Bld) [#/Vol] 4.11 10*6/uL Normal 3.90-5.20 [facility] Comment on above: Order Comment: Speci men Type: BLOOD SPECIMENOrdering Facility: [facility] Address: [address] [place] [address] Performed By: #### 5 7021-8 ####[facility] BARBINEW LIBERTYNCLIA [id number] [place] [address] [place] WBC (Bld) [#/Vol] 11.90 10*3/uL High 3.70-11.00 [facility] Comment on above: Order Comment: Speci men Type: BLOOD SPECIMENOrdering Facility: [facility] Address: [address] [place] [address] Performed By: #### 5 7021-8 ####[facility]ITALNCLIA [id number] [place] [address] [place] Examination level ultrasound on 12-28-2024 [facility] Radiology Study observation (narrative) [facility] Ferritin SerPl-mCncon 2024 Ferritin [Mass/Vol] 11.9 ng/mL Low 14.7-205.1 [facility] Comment on above: Order Comment: Speci men Type: BLOOD SPECIMENOrdering Facility: [facility] Address: [address] [place], [place] [address] Performed By: #### 2 276-4, 89953-1 ####[facility] LABCLIA [id number] [address] [address] [place] GESTATIONAL GLUCOSE SCREEN, 1-HOUR, 50 GRAM, NON-FASTINGon 12-28-2024 Glucose [Mass/Vol] 131 mg/dL Normal 74-134 [facility] Comment on above: Order Comment: Speci men Type: BLOOD SPECIMENOrdering Facility: [facility] Address: [address] [place] [address] Result Comment: [facility] Congress of Obstetricians and Gynecologists (Yoav/Campbell) guidelines state a gestational diabetes mellitus positive screen is made, in women not previously diagnosed with overt diabetes, when the 1 hr plasma glucose level is equal to or above 140 mg/dL. The [facility] [employer] [facility] recommends a 135 mg/dL cutoff. Performed By: #### G LTGST ####[facility] [id number] [place] [id number] [place] Iron and Iron binding capaci ty panelon 12-28-2024 Iron [Mass/Vol] 33 ug/dL Low 41-186 [facility] Comment on above: Order Comment: Speci men Type: BLOOD SPECIMENOrdering Facility: [facility] Address: [address] [place] [address] Performed By: #### 2 276-4, 42711-1 ####[facility] LABCLIA [id number] [place] [address] [place] Iron binding capacity [Mass/Vol] >533 High 232-386 [facility] Comment on above: Order Comment: Speci men Type: BLOOD SPECIMENOrdering Facility: [facility] Address: [address] [place], [place] [address] Performed By: #### 2 276-4, 64690-2 ####[facility] LABCLIA [id number] [place] [address] [place] Iron/TIBC [Molar ratio] <6.2 Low 15.0-57.0 [facility] Comment on above: Order Comment: Speci men Type: BLOOD SPECIMENOrdering Facility: [facility] Address: [address] [place] [address] Performed By: #### 2 276-4, 45162-0 ####[facility] LABIA [id number] [place] [address] [place] Reagin and Treponema pallidu m IgG and IgM [Interp]on 12-28-2024 T. pallidum IgG+IgM IA Ql (S) Non-Reactive Normal Nonreactive [facility] Comment on above: Order Comment: Speci men Type: BLOOD SPECIMENOrdering Facility: [facility] Address: [address] [place] [address] Performed By: #### 7 3752-8 ####[facility] [id number] [place] [address] [place] Reagin+T pallidum IgG+IgM Se rPl-Impon 12-28-2024 Reagin and Treponema pallidum IgG and IgM [Interp] Cannot exclude recent Treponemal infection if specimen collected within 7-10 days after appearance of suspect lesions or 2-3 weeks after an exposure. Clinical correlation is required. Normal [facility] Comment on above: Order Comment: Speci men Type: BLOOD SPECIMENOrdering Facility: [facility] Address: [address] [place] [address] Performed By: #### 7 3752-8 ####[facility] [id number] [place] [address] [place] T4 Free SerPl-mCncon 025 Free T4 [Mass/Vol] 0.9 ng/dL Normal 0.9-1.7 [facility] Comment on above: Order Comment: Speci men Type: BLOOD SPECIMENOrdering Facility: [facility] Address: [address] [place], [place] [address] [id number] Performed By: #### 3 024-7, 3016-3 ####[facility] LABCLIA [id number] [place] [address] [place] TSH SerPl-aCncon 12-28-2024 TSH Qn 1.820 m[IU]/L Normal 0.270-4.200 [facility] Comment on above: Order Comment: Speci men Type: BLOOD SPECIMENOrdering Facility: [facility] Address: [address] [place] [address] Result Comment: If t he patient is , TSH reference range varies by gestational period: First Trimester (weeks 9-12): 0.180-2.990 mIU/L Second Trimester: 0.110-3.980 mIU/L Third Trimester: 0.480-4.710 mIU/L Yariel Garcia et al. A Practical Approach for the Verifications and Determination of Site- and Trimester-Specific Reference Intervals for Thyroid Function tests in . Thyroid, 2019:29:3:412-420. Juan E, et al. 2017 Guidelines of the [place] Thyroid [employer] for the Diagnosis and Management of Thyroid Disease during and the . Thyroid, 2017:27:3:315-389. Performed By: #### 3 024-7, 3016-3 ####[facility] LABCLIA [id number] [place] [id number] [place] Urine Cultureon 12-26-2024 URC Below infection leve l. Mixed Gram Positive Organisms Black Diamond Count 1000-10,000 MIXC Mixed contaminants. Submit a new specimen if indicated. Normal [facility] Comment on above: Performed By: #### M 100.2200 ####[facility] [id number] [place], [address] (ROM) Rupture Of Membraneson 12-23-2024 ROM Negative Normal Negative [facility] Comment on above: Result Comment: Amni otic fluid not present indicates No Rupture of Membranes at time of specimen collection. Performed By: #### L 205.1000 ####[facility] [id number] [place], [address] Bilirubin Test strip Ql (U)O rdered By: Roxana Fry on 12-23-2024 Bilirubin Ql (U) Negative Negative [facility] CNPNon 12-23-2024 CNPN Telephone (OBGYWM) -- JANET FRANK ([id number]) 2000 F CHT Date Time Provider Department 12/23/24 ROXANA FRY OBGYWM During your visit today, we recorded the following information about you: Asia Garzon RN 12/23/2024 4:29 PM Signed Patient 28w6d calling with concerns of decreased FM. Patient states she has decreased movement since Thursday. States she is not getting 6-10 movement in an hour when doing kick counts. Patient advised to go to [facility] for evaluation, voiced understanding. FYI. Asia Garzon RN Allergies As of Date: 12/23/2024 (No Known Allergies) Date Reviewed: 10/26/2024 Reviewed by: Steffanie Lopez MD - Fully Assessed Prescriptions as of 12/23/2024 - aspirin, enteric coated (ECOTRIN LOW STRENGTH) 81 mg EC tablet Take 2 tablets by mouth once daily. - esomeprazole (NEXIUM) 40 mg capsule Take 40 mg by mouth once daily. - metoclopramide HCl (REGLAN) 10 mg tablet Take 1 tablet by mouth four times a day as needed. - sertraline (ZOLOFT) 50 mg tablet Take 1.5 tablets by mouth once daily. - levothyroxine (SYNTHROID) 125 mcg tablet Take 0.5 tablets by mouth daily before breakfast. - busPIRone (BUSPAR) 15 mg tablet Take 1 tablet by mouth three times a day. - VIT 2-TWMQ-EDVRU-DHA ORAL Take by mouth. Problem List As Of Date 12/23/2024 Noted Resolved Hypothyroidism [E03.9] 03/08/2012 Menorrhagia [N92.0] [...] thyroid function studies [R*09/27/2024 Encounter Status:Closed by ASIA GARZON on 12/23/24 Normal [facility] Discharge Instructionon 12-03 Discharge Instruction [facility] Medical Records Department [address] [place] [address] Instructions for Home/Discharge Instructions 12/23/242122 MR#: [id number] Acct: [id number] Name: JANET FRANK Rep #: [id number] : 2000 24 From: Roxana Fry CNM PCP: Dr. Genie Jackson MD Status:DEP CLI Discharge Instructions DC O2, CPAP, BIPAP needs Home O2 Discharge instructions: No Follow Up Care Test Results: Test results from this visit will be discussed in further detail at your follow-up appointment, if applicable. Discharge Plan Admission Reason For Visit: R/O NO MOVEMENT IN 2 DAYS Attending Provider: Roxana Fry Primary Care Provider: Genie Jackosn Discharge Date/Time: 12/23/24 19:49 Instructions Patient Instructions: Kick Counts, ED False Labor, OB Triage: Return to Hospital or Notify Physician if you Experience: Discharge Orders/Prescriptions Prescriptions: New nitrofurantoin monohyd/m-cryst [Macrobid] 100 mg capsule 100 mg PO BID 7 Days Qty: 14 0RF Rx Instructions: Take medication with food to help with GI upset Finish all of medication No Action levothyroxine 25 MCG tablet 75 mcg PO DAILY Patient Comments: low thyroid buspirone 15 mg tablet 45 mg PO TID sertraline 50 mg tablet 75 mg PO DAILY esomeprazole magnesium [Nexium] 40 mg capsule,delayed release(DR/EC) 40 mg PO DAILY PNV cmb#95-ferrous fumarate-FA [] 28 mg iron- 800 mcg tablet 1 tab PO DAILY aspirin 81 mg capsule 162 mg PO QDAY Referrals / Follow Up: Genie Jackson MD [Primary Care Provider] - Disposition Patient Disposition: Home, Self Care 12/23/242123 Roxana Fry CNM CC: Dr. Genie Jackson MD Signed Normal [facility] Ketones Test strip Ql (U)Ord ered By: Roxana Fry on 12-23-2024 Ketones Ql (U) Negative Negative [facility] Microscopic analysis of urin e for red blood cells (RBC)Ordered By: Roxana Fry on 12-23-2024 Microscopic analysis of urine for red blood cells (RBC) 0-5 SEEN /hpf 0-5 [facility] Mucus LM Ql (Urine sed)Order ed By: Roxana Fry on 12-23-2024 Mucus Ql (Urine sed) 0 SEEN /hpf [facility] Nitrite Test strip Ql (U)Ord ered By: Roxana Fry on 12-23-2024 Nitrite Ql (U) Negative Negative [facility] OB Triage Physician Noteon 0 12-23-2024 OB Triage Physician Note [facility] Medical Records Department [address] [place] [address] OB Triage Physician Note 12/23/242117 MR#: [id number] Acct: [id number] Name: JANET FRANK Rep #: [id number] : 2000 24 From: Roxana Fry CNM PCP: Dr. Genie Jackson MD Status:DEP CLI Y Location: [facility] HPI - General HPI Narrative JANET FRANK, is a 24 F at 28 weeks gestation who presents to triage with decreased movements. Maternal Data Information KELLEY Calculator Estimated Delivery Date Method Current WG Current Estimate 03/11/25 Manual 28w 6d PFSH PFSH Medical History Colitis GERD (gastroesophageal reflux disease) Hypothyroidism IBS (irritable bowel syndrome) Home Medications ???Medication ???Instructions ???Recorded ???Last Taken ???Type levothyroxine 25 mcg tablet 75 mcg PO DAILY thyroid 01/11/14 0 12/23/24 History buspirone 15 mg tablet 45 mg PO TID depression 06/30/22 0 12/23/24 History aspirin 81 mg capsule 162 mg PO QDAY preeclampsia 12/22/24 History esomeprazole magnesium 40 mg 40 mg PO DAILY acid reflux 5 12/23/24 History capsule,delayed release (Nexium) vit no.95-ferrous 1 tab PO DAILY 11/19/24 12/23/24 History fumarate 28 mg-folic acid 800 mcg tablet () sertraline 50 mg tablet 75 mg PO DAILY anx,depression 11/0112/23/24 History Allergy/AdvReac Type Severity Reaction Status Date / Time No Known Allergies Allergy Verified 12/23/24 18:12 Social History Smoking Status: Current every day smoker tobacco type: e-cigarettes History 2 Elective abortions Hx Para 1 Spontaneous abortions Hx # Term Pregnancies Ectopic pregnancies Hx # Pregnancies Multiple births # of living children ROS Eyes Eyes: Denies blurry vision Cardiovascular Cardiovascular: Reports none; Denies chest pain at rest, chest pain with activity or dizziness Respiratory/Chest Respiratory/Chest: Denies cough or dyspnea Gastrointestinal Gastrointestinal: Reports none and other; Denies diarrhea or vomiting Genitourinary Genitourinary: Denies dysuria Musculoskeletal Musculoskeletal: Reports none Integumentary Integumentary: Reports none; Denies rash Neurologic Neurologic: Denies dizziness, headache(s) or other visual disturbances Psychiatric Psychiatric: Reports none Physical Exam Const alert and no apparent distress General Appearance: cooperative Orientation / Consciousness: awake Exam Limitations: no limitations HEENT normocephalic Eyes General Eye: normal appearance of both eyes Neck full ROM Chest inspection of chest normal Resp normal respiratory effort and normal air movement Effort and Inspection: symmetric chest movement Auscultation: clear to auscultation bilaterally Cardio regular rate GI soft to palpation, non-tender and non-distended Inspection: and other Back/Spine normal ROM Extremity full ROM, normal capillary refill and no calf tenderness Skin no rashes or lesions noted Neuro oriented x3 and CN's II-XII intact bilaterally Psych mental status grossly normal NST FHR Rate Baby A Baseline: 140 Variability:: Moderate Accelerations:: 10 x 10 Decelerations:: None NST Reactive:: Appropriate for gestational age Assessment Plan (1) 28 weeks gestation of : (2) Decreased movement: (3) Urinary frequency: (4) Pelvic pressure in : PLAN: Plan Patient has felt movements since arrival to unit C/O pelvic soreness and pressure and urinary frequency- UA sent- +trace blood and protein Urine culture sent Start Macrobid 100 mg PO BID x 5 days- RX sent CE - closed D/C home with kick counts and ptl precautions Follow up in office this week 12/23/242121 Date Roxana Najera Signature (if applicable): Date CC: ALVINA Fry; Dr. Genie Jackson MD Signed Normal [facility] Protein Test strip Ql (U)Ord ered By: Roxana Fry on 12-23-2024 Protein Ql (U) 30 mg/dl High Negative [facility] Squamous epithelial cells de tection in urine sediment by light microscopyOrdered By: Roxana Fry on 12-23-2024 Epithelial cells.squamous LM Ql (Urine sed) 0-5 SEEN /hpf 5-10 [facility] Urinalysis, Completeon 12-23 EPI,SQUAMOUS 0-5 SEEN Normal 5-10 [facility] Comment on above: Order Comment: CLEAN CATCH Performed By: #### L 400.0001 #### [facility] [address] [place], [address] RBC 0-5 SEEN Normal 0-5 [facility] Comment on above: Order Comment: CLEAN CATCH Performed By: #### L 400.0001 #### [facility] [address] [place], [address] WBC 0-5 SEEN Normal 0-5 [facility] Comment on above: Order Comment: CLEAN CATCH Performed By: #### L 400.0001 #### [facility] [address] [place], [address] BACTERIA 0 SEEN Normal None Seen [facility] Comment on above: Order Comment: CLEAN CATCH Performed By: #### L 400.0001 #### [facility] [address] [place], [address] Mucus Ql (Urine sed) 0 SEEN Normal [facility] Comment on above: Order Comment: CLEAN CATCH Performed By: #### L 400.0001 #### [facility] Laboratory [address] [place], [address] Urine clarityOrdered By: Nadia Fry on 12-23-2024 Clarity (U) Clear Clear [facility] Urine color determinationOrd ered By: Roxana Fry on 12-23-2024 Color (U) Yellow Yellow [facility] Urine glucose detectionOrder ed By: Roxana Fry on 12-23-2024 Glucose Ql (U) Normal mg/dl Normal [facility] Urine leukocyte esterase det ection by dipstickOrdered By: Roxana Fry on 12-23-2024 Leukocyte esterase Test strip Ql (U) Negative Negative [facility] Urine pHOrdered By: Roxana Fry on 12-23-2024 pH (U) 6.5 [pH] 5.0 - 8.0 [facility] Urine sediment bacteria coun t by microscopy (number/high power field)Ordered By: Roxana Fry on 12-23-2024 Bacteria LM.HPF (Urine sed) [#/Area] 0 /[HPF] None Seen [facility] Urine specific gravity measu rementOrdered By: Roxana Fry on 12-23-2024 Specific gravity (U) [Rel density] 1.010 1.002-1.030 [facility] Urine urobilinogen measureme ntOrdered By: Roxana Fry on 12-23-2024 Urobilinogen Ql (U) Normal mg/dl Normal [facility] White blood cell countOrdere d By: Roxana Fry on 12-23-2024 White blood cell count 0-5 SEEN /hpf 0-5 [facility] Prot 24h Ur-mRateon 11-22-19 25 Protein (24H U) [Mass/Time] 0.28 g/24 Hr High <0.15 [facility] Comment on above: Order Comment: Speci men Type: URINE SPECIMENOrdering Facility: [facility] Address: [address] [place] [address] Result Comment: Adul t Proteinuria Categories: <0.15 g/24 hours is considered normal to mildly increased 0.15 - 0.50 g/24 hours is considered moderately increased >0.50 g/24 hours is considered severely increased KDIGO. (2013). KDIGO 2012 Clinical Practice Guideline for the Evaluation and Management of Chronic Kidney Disease. Official Journal of the International Society of Nephrology, 3(1), 1-150. Performed By: #### 2 889-4 ####[facility] LABCLIA [id number] [address] STATES OF [facility] [id number] [place] [address] [place] Protein (24H U) [Mass/Time]o n 11-21-2024 PERIOD (HRS) 24 hr Normal [facility] Comment on above: Order Comment: Speci men Type: URINE SPECIMENOrdering Facility: [facility] Address: [address] [place] [address] Performed By: #### 2 889-4 ####[facility] LABIA [id number] [address] [id number] [place] [address] [place] Specimen volume (24H U) 2.8 L Normal [facility] Comment on above: Order Comment: Speci men Type: URINE SPECIMENOrdering Facility: [facility] Address: [address] [place] [address] Performed By: #### 2 889-4 ####[facility] LABCLIA [id number] [address] [id number] [place] [address] [place] AST(SGOT)on 11-19-2024 AST [Catalytic activity/Vol] 19 U/L Normal <=31 [facility] Comment on above: Performed By: #### L 100.0500, L501.1105, L501.4100, L501.1400, L501.0900, L501.4405 #### [facility] Laboratory [address] [place], [address] Alanine Aminotransferas (SGP T)on 11-19-2024 ALT [Catalytic activity/Vol] 11 U/L Normal <=34 [facility] Comment on above: Performed By: #### L 100.0500, L501.1105, L501.4100, L501.1400, L501.0900, L501.4405 #### [facility] Laboratory [address] [place], [address] CBC-Complete Blood Cnt No Di ffon 11-19-2024 Erythrocyte distribution width (RBC) [Ratio] 14.1 % Normal 11.6-14.6 [facility] Comment on above: Performed By: #### L 100.0500, L501.1105, L501.4100, L501.1400, L501.0900, L501.4405 #### [facility] Laboratory [address] [place], [address] Hematocrit (Bld) [Volume fraction] 31.5 % Low 37-47 [facility] Comment on above: Performed By: #### L 100.0500, L501.1105, L501.4100, L501.1400, L501.0900, L501.4405 #### [facility] Laboratory [address] [place], [address] Hemoglobin (Bld) [Mass/Vol] 10.7 g/dL Low 12.0-15.0 [facility] Comment on above: Performed By: #### L 100.0500, L501.1105, L501.4100, L501.1400, L501.0900, L501.4405 #### [facility] Laboratory [address] [place], [address] MCH (RBC) [Entitic mass] 26.2 pg Low 27.0-32.0 [facility] Comment on above: Performed By: #### L 100.0500, L501.1105, L501.4100, L501.1400, L501.0900, L501.4405 #### [facility] Laboratory [address] [place], [address] MCHC (RBC) [Mass/Vol] 34.0 g/dL Normal 32-36 [facility] Comment on above: Performed By: #### L 100.0500, L501.1105, L501.4100, L501.1400, L501.0900, L501.4405 #### [facility] Laboratory [address] [place], [address] MCV (RBC) [Entitic vol] 77.0 fL Low 81-99 [facility] Comment on above: Performed By: #### L 100.0500, L501.1105, L501.4100, L501.1400, L501.0900, L501.4405 #### [facility] Laboratory [address] [place], [address] Platelet mean volume (Bld) [Entitic vol] 8.7 fL Normal 6.2-12.0 [facility] Comment on above: Performed By: #### L 100.0500, L501.1105, L501.4100, L501.1400, L501.0900, L501.4405 #### [facility] Laboratory [address] [place], [address] Platelets (Bld) [#/Vol] 263 10*3/uL Normal 150-450 [facility] Comment on above: Performed By: #### L 100.0500, L501.1105, L501.4100, L501.1400, L501.0900, L501.4405 #### [facility] Laboratory [address] [place], [address] RBC (Bld) [#/Vol] 4.09 10*6/uL Low 4.2-5.4 [facility] Comment on above: Performed By: #### L 100.0500, L501.1105, L501.4100, L501.1400, L501.0900, L501.4405 #### [facility] Laboratory [address] [place], [address] RDW SD 39.1 fl Normal 35.1-43.9 [facility] Comment on above: Performed By: #### L 100.0500, L501.1105, L501.4100, L501.1400, L501.0900, L501.4405 #### [facility] Laboratory [address] [place], [place], [address] WBC (Bld) [#/Vol] 13.3 10*3/uL High 4.4-11.0 [facility] Comment on above: Performed By: #### L 100.0500, L501.1105, L501.4100, L501.1400, L501.0900, L501.4405 #### [facility] Laboratory [address] [place], [place], [address] CNPNon 11-19-2024 CNPN Telephone (OBGYWM) -- JANET FRANK ([id number]) 2000 F CHT Date Time Provider Department 11/19/24 STEFFANIE LOPEZ During your visit today, we recorded the following information about you: Steffanie Lopez MD 11/19/2024 11:49 PM Signed Seen in triage with headache for 2 weeks. Elevated BP at home x 1 day. Normal BPS in triage. Pr/cr 519. First trimester pr/cr 0.31. Hx of Headaches and pre e in a previous . Patient given supplies for 24 hour to tune in to lab on Thursday morning Orders placed. Asia Garzon RN 11/21/2024 8:51 AM Signed Urine dropped off and in process. Asia Garzon RN Allergies As of Date: 11/19/2024 (No Known Allergies) Date Reviewed: 10/26/2024 Reviewed by: Steffanie Lopez MD - Fully Assessed Primary Visit Diagnosis:Proteinuria complicating in second trimester (HCC) [O12.12] Order(s):PROTEIN, 24 HOUR URINE [SQUTP24] Order #: [id number]. #:[id number] Prescriptions as of 11/21/2024 - levothyroxine (SYNTHROID) 125 mcg tablet Take 0.5 tablets by mouth daily before breakfast. - busPIRone (BUSPAR) 15 mg tablet Take 1 tablet by mouth three times a day. - aspirin, enteric coated (ECOTRIN LOW STRENGTH) 81 mg EC tablet Take 2 tablets by mouth once daily. - VIT 3-HTDA-HZUHC-DHA ORAL Take by mouth. - sertraline (ZOLOFT) 50 mg tablet Take 1 tablet by mouth once daily. Problem List As Of Date 11/19/2024 Noted Resolved Hypothyroidism [E03.9] 03/08/2012 Menorrhagia [N92.0] [...] thyroid function studies [R*09/27/2024 Encounter Status:Closed by ASIA GARZON on 11/21/24 Normal [facility] Erythrocyte distribution wid th ratioOrdered By: Steffanie Lopez on 11-19-2024 Erythrocyte distribution width (RBC) [Ratio] 14.1 % 11.6-14.6 [facility] Erythrocyte distribution wid th standard deviationOrdered By: Steffanie Lopez on 11-19-2024 Erythrocyte distribution width (RBC) [Ratio] 39.1 fl 35.1-43.9 [facility] Glomerular filtration rate ( GFR) estimation/1.73 sq m using serum, plasma, or whole bOrdered By: Steffanie Lopez on 11-19-2024 GFR/1.73 sq M.predicted among non-blacks MDRD (S/P/Bld) [Vol rate/Area] 137 mL/min/{1.73_m2} >60 [facility] Comment on above: mL/min/1.73m2 CKD-EP I Creatinine Equation (2020) Hematocrit Auto (Bld) [Volum e fraction]Ordered By: Steffanie Lopez on 11-19-2024 Hematocrit (Bld) [Volume fraction] 31.5 % Low 37-47 [facility] Hemoglobin measurementOrdere d By: Steffanie Lopez on 11-19-2024 Hemoglobin (Bld) [Mass/Vol] 10.7 g/dL Low 12.0-15.0 [facility] Laboratory - Chemistry and C hemistry - challengeOrdered By: Steffanie Lopez on 11-19-2024 AST [Catalytic activity/Vol] 19 U/L <32 [facility] MCV (mean corpuscular volume ) determinationOrdered By: Steffanie Lopez on 11-19-2024 MCV (RBC) [Entitic vol] 77.0 fL Low 81-99 [facility] Mean corpuscular hemoglobin (MCH) determinationOrdered By: Steffanie Lopez on 11-19-2024 MCH (RBC) [Entitic mass] 26.2 pg Low 27.0-32.0 [facility] Mean corpuscular hemoglobin concentration (MCHC) determinationOrdered By: Steffanie Lopez on 11-19-2024 MCHC (RBC) [Mass/Vol] 34.0 g/dL 32-36 [facility] Mean platelet volume determi nationOrdered By: Steffanie Lopez on 11-19-2024 Platelet mean volume (Bld) [Entitic vol] 8.7 fL 6.2-12.0 [facility] OB Triage Physician Noteon 0 11-19-2024 OB Triage Physician Note [facility] Medical Records Department [address] [place] [address] OB Triage Physician Note 11/19/24 [id number] MR#: [id number] Acct: [id number] Name: JANET FRANK Rep #: [id number] : 2000 24 From: Steffanie Lopez MD PCP: Dr. Genie Jackson MD Status:DEP [facility] Y Location: [facility] HPI - General General Date of Admission: 11/19/24 Date of Service: 11/19/24 Chief Complaint: headache HPI Narrative JANET FRANK, is a 24 F who presents with a headache for the last 2 week. Took her BP today and it was 150/90s at home. Has not taken BP prior to today. Hx of Pre E in last . Pr/cr was 0.31 at 12 weeks. Labs today normal with 519 urine protein/cr ratio. Headache resolved with Reglan, benadryl and tylenol. All BPs in triage normal. Pt sent with 24 hour urine collection to be complete and turned in to the office on Thursday. Maternal Data Information Final KELLEY: 03[birth year]11/25 Gestational age: 24 PFSH [facility] Medical History Colitis GERD (gastroesophageal reflux disease) Hypothyroidism IBS (irritable bowel syndrome) Home Medications ???Medication ???Instructions ???Recorded ???Last Taken ???Type levothyroxine 25 mcg tablet 75 mcg PO DAILY thyroid 01/11/14 0 11/19/24 History buspirone 15 mg tablet 45 mg PO TID depression 06/30/22 0 11/19/24 History aspirin 81 mg capsule 162 mg PO QDAY preeclampsia 11/19/24 History esomeprazole magnesium 40 mg 40 mg PO DAILY acid reflux 5 11/19/24 History capsule,delayed release (Nexium) vit no.95-ferrous 1 tab PO DAILY 11/19/24 11/19/24 History fumarate 28 mg-folic acid 800 mcg tablet () sertraline 50 mg tablet 50 mg PO DAILY anx,depression 11/0111/19/24 History Allergy/AdvReac Type Severity Reaction Status Date / Time No Known Allergies Allergy Verified 11/19/24 22:33 Social History Smoking Status: Current every day smoker tobacco type: e-cigarettes History 2 Elective abortions Hx Para 1 Spontaneous abortions Hx # Term Pregnancies Ectopic pregnancies Hx # Pregnancies Multiple births # of living children NST FHR Rate Baby A Baseline: 130 Variability:: Moderate Accelerations:: 10 x 10 Decelerations:: None NST Reactive:: Yes and Appropriate for gestational age Assessment Plan (1) Headache in : QUALIFIERS: Trimester: second trimester Qualified Code(s): O26.892 - Other specified related conditions, second trimester; R51.9 - Headache, unspecified (2) 24 weeks gestation of : (3) Proteinuria affecting in second trimester: PLAN: Plan Prn Benadryl and Tylenol for VARGAS. to complete a 24 hour urine 11/20/24 1808 Date Steffanie Lopez MD Cosigner Signature (if applicable): Date CC: Dr. Steffanie Lopez MD; Dr. Genie Jackson MD Signed Normal [facility] Platelet countOrdered By: Remigio Lopez on 11-19-2024 Platelets (Bld) [#/Vol] 263 10*3/uL 150-450 [facility] Protein+Creatinine Ratio,Uri neon 11-19-2024 PROT:CRE RATIO 519 mg/g CRE High 0-200 [facility] Comment on above: Performed By: #### L 100.0500, L501.1105, L501.4100, L501.1400, L501.0900, L501.4405 #### [facility] Laboratory [address] [place], [address] Protein (U) [Mass/Vol] 11.1 mg/dL Normal 0.0-12.0 [facility] Comment on above: Performed By: #### L 100.0500, L501.1105, L501.4100, L501.1400, L501.0900, L501.4405 #### [facility] Laboratory [address] [place], [address] UR CREAT 21.40 mg/dL Low 28.00-217.00 [facility] Comment on above: Performed By: #### L 100.0500, L501.1105, L501.4100, L501.1400, L501.0900, L501.4405 #### [facility] Laboratory [address] [place], [address] RBC Auto (Bld) [#/Vol]Ordere d By: Steffanie Lopez on 11-19-2024 RBC (Bld) [#/Vol] 4.09 10*6/uL Low 4.2-5.4 [facility] Random urine creatinine lesley urement (mass/volume)Ordered By: Steffanie Lopez on 11-19-2024 Creatinine Unsp time (U) [Mass/Vol] 21.40 mg/dL Low 28.00-217.00 [facility] Serum Creatinine AND GFRon 0 11-19-2024 Creatinine [Mass/Vol] 0.44 mg/dL Low 0.70-1.20 [facility] Comment on above: Performed By: #### L 100.0500, L501.1105, L501.4100, L501.1400, L501.0900, L501.4405 #### [facility] Laboratory [address] [place], [address] ECRCL 249.90 ml/min Normal 50-250 [facility] Comment on above: Performed By: #### L 100.0500, L501.1105, L501.4100, L501.1400, L501.0900, L501.4405 #### [facility] Laboratory [address] [place], [address] GFR/1.73 sq M.predicted among non-blacks MDRD (S/P/Bld) [Vol rate/Area] 137 mL/min/{1.73_m2} Normal >60 [facility] Comment on above: Result Comment: mL/m in/1.73m2 CKD-EPI Creatinine Equation (2020) Performed By: #### L 100.0500, L501.1105, L501.4100, L501.1400, L501.0900, L501.4405 #### [facility] Laboratory [address] [place], [address] Serum creatinine measurement (mass/volume)Ordered By: Steffanie Lopez on 11-19-2024 Creatinine [Mass/Vol] 0.44 mg/dL Low 0.70-1.20 [facility] Serum or plasma alanine jacome otransferase (ALT) measurementOrdered By: Steffanie Lopez on 11-19-2024 ALT [Catalytic activity/Vol] 11 U/L <35 [facility] Serum or plasma uric acid me asurement (mass/volume)Ordered By: Steffanie Lopez on 11-19-2024 Urate [Mass/Vol] 4.4 mg/dL 2.6-6.0 [facility] Comment on above: The drugs N-Acetylcy steine and Metamizole may falsely depress this assay. Uric Acidon 11-19-2024 URIC 4.4 mg/dL Normal 2.6-6.0 [facility] Comment on above: Result Comment: The drugs N-Acetylcysteine and Metamizole may falsely depress this assay. Performed By: #### L 100.0500, L501.1105, L501.4100, L501.1400, L501.0900, L501.4405 #### [facility] Laboratory [address] [place], [address] Urine protein measurement (m ass/volume)Ordered By: Steffanie Lopez on 11-19-2024 Protein (U) [Mass/Vol] 11.1 mg/dL 0.0-12.0 [facility] Urine protein/creatinine mas s ratioOrdered By: Steffanie Lopez on 11-19-2024 Protein/Creatinine (U) [Mass ratio] 519 mg/g CRE High 0-200 [facility] White blood cell (WBC) count Ordered By: Steffanie Lopez on 11-19-2024 WBC (Bld) [#/Vol] 13.3 10*3/uL High 4.4-11.0 [facility] CNPNon 11-16-2024 [facility] JANET FRANK ([id number]) 2000 F [facility] Date Time Provider Department 11/16/24 JOYCE RESTREPOGY During your visit today, we recorded the following information about you: Steffanie Lozada, VENKATESH 11/16/2024 11:03 AM Addendum 23w4d REASON FOR CALL: Headache pain rate [...] the ER. Next OB visit is 11/23. VENKATESH Lemons Deidre, MD 11/16/2024 11:38 AM Signed Noted. Thank you Allergies As of Date: 11/16/2024 (No Known Allergies) Date Reviewed: 10/26/2024 Reviewed by: Steffanie Lopez MD - Fully Assessed Prescriptions as of 11/16/2024 - levothyroxine (SYNTHROID) 125 mcg tablet Take 0.5 tablets by mouth daily before breakfast. - busPIRone (BUSPAR) 15 mg tablet Take 1 tablet by mouth three times a day. - aspirin, enteric coated (ECOTRIN LOW STRENGTH) 81 mg EC tablet Take 2 tablets by mouth once daily. - VIT 0-XTVQ-VAJOF-DHA ORAL Take by mouth. - sertraline (ZOLOFT) 50 mg tablet Take 1 tablet by mouth once daily. Problem List As Of Date 11/16/2024 Noted Resolved Hypothyroidism [E03.9] 03/08/2012 Menorrhagia [N92.0] [...] function studies [R*09/27/2024 Encounter Status:Closed by STEFFANIE LOZADA on 11/16/24 [facility] 10-27-2024 [facility] ([id number][facility] -- JANET FRANK ([id number]) 2000 F T Date Time Provider Department 10/27/24 STEFFANIE NEELY [id number] During your visit today, we recorded the following information about you: Steffanie Neely RN 10/27/2024 9:36 AM Signed 2nd risk assessment form submitted 10/27/2024. 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 - busPIRone (BUSPAR) 15 mg tablet Take 1 tablet by mouth three times a day. - aspirin, enteric coated (ECOTRIN LOW STRENGTH) 81 mg EC tablet Take 2 tablets by mouth once daily. - VIT 1-HCBS-IIZNU-DHA ORAL Take by mouth. - sertraline (ZOLOFT) [...] Status:Closed by STEFFANIE NEELY on 10/27/24 Normal [facility] Examination level ultrasound on 10-26-2024 Indication Detailed [...] 0 oz EFW by: Hadlock (HC-AC-FL) Extended Medical Scribe 5.6 mm CM 4.0 mm 16% Nicolaides [...] normal LVOT view: normal 3-vessel view: normal 7-wplfee-gtupovc view: normal Heart / Thorax Situs: situs [...] Read By: Nava Duran M.D. MATERNAL MEDICINE [facility] Radiology Study observation (narrative) [facility] 10-25-2 025 Free T4 [Mass/Vol] 0.7 ng/dL Low 0.9-1.7 [facility] Comment on above: Order Comment: Speci men Type: BLOOD SPECIMENOrdering Facility: [facility] Address: [address] [place] [address] Performed By: #### 3 024-7, 3015-3 ####[facility] LABIA [id number] [address] STATES OF [facility] TSH SerPl-aCncon 10-25-2024 TSH Qn 1.960 m[IU]/L Normal 0.270-4.200 [facility] Comment on above: Order Comment: Speci men Type: BLOOD SPECIMENOrdering Facility: [facility] Address: [address] [place] [address] Result Comment: If t he patient is [...] Santiago, et al. 2017 Guidelines of the [place] [employer] for the Diagnosis and Management of Thyroid Disease during and the . Thyroid, 2017:27:3:315-389. Performed By: #### 3 024-7, 3 ####[facility] LABIA [id number] [place] [id number] [place] [facility] Examination level ultrasound on 10-05-2024 Indication Early [...] 8 oz EFW by: Hadlock (HC-AC-FL) Extended Medical Scribe 6.3 mm CM 2.8 mm 7% Nicolaides Extremities / Bony Struc FL / HC 0.18 78% Hadlock Other Structures FHR 157 bpm Anatomy Cranium: normal Lateral ventricles: normal Choroid plexus: normal Midline falx: normal Cerebellum: normal Cisterna magna: normal Lips: normal Profile: normal Nose: normal 4-chamber view: normal RVOT view: normal LVOT view: normal 3-vessel view: normal 5-ubvzsq-rfsxtwy view: suboptimally visualized Heart / Thorax Diaphragm: [...] Read By: Roxana Mcrae MD MATERNAL MEDICINE [facility] Radiology Study observation (narrative) [facility] C. trachomatis+N. gonorrhoea e DNA RODERICK+probe Ql (Unsp spec)on 09-29-2024 C. trachomatis rRNA RODERICK+probe Ql (Unsp spec) Not detected Normal Not detected [facility] Comment on above: Order Comment: Speci men Type: SWABOrdering Facility: [facility] Address: [address] [place] [address] Performed By: #### 3 6902-5, TRVAMP ####[facility] LABIA [id number] [place] [address] [place] N. gonorrhoeae rRNA RODERICK+probe Ql (Unsp spec) Not detected Normal Not detected [facility] Comment on above: Order Comment: Speci men Type: SWABOrdering Facility: [facility] Address: [address] [place] [address] Performed By: #### 3 6902-5, TRVAMP ####[facility] LABIA [id number] [place] [address] [place] TRICHOMONAS VAGINALIS NAATon 09-29-2024 T. vaginalis DNA RODERICK+probe Ql (Unsp spec) Not detected Normal Not detected [facility] Comment on above: Order Comment: Speci men Type: SWABOrdering Facility: [facility] Address: [address] [place], [place] [address] Performed By: #### 3 6902-5, TRVAMP ####[facility] LABIA [id number] [place] [address] [place] T4 Free SerPl-mCncon 025 Free T4 [Mass/Vol] 0.8 ng/dL Low 0.9-1.7 [facility] Comment on above: Order Comment: Speci men Type: BLOOD SPECIMENOrdering Facility: [facility] Address: [address] [place] [address] Performed By: #### 3 024-7, 3016-3 ####[facility] [id number] [address] STATES OF [place] TSH SerPl-aCncon 09-23-2024 TSH Qn 2.440 m[IU]/L Normal 0.270-4.200 [facility] Comment on above: Order Comment: Speci men Type: BLOOD SPECIMENOrdering Facility: [facility] Address: [address] [place] [address] Result Comment: If t he patient is [...] Santiago, et al. 2017 Guidelines of the [place] Thyroid Association for the Diagnosis and Management of Thyroid Disease during and the . Thyroid, 2017:27:3:315-389. Performed By: #### 3 024-7, 3016-3 ####[facility] LABIA [id number] [place] [id number] [place] Examination level ultrasound on 08-31-2024 Indication First trimester anatomic survey History of preeclampsia, Maternal obesity, BMI >35 Impression The patient is referred for a first trimester anatomy scan including nuchal translucency measurement as clinically indicated. - Single, live, intrauterine . - [place] rump length measurement is consistent with the [...] view: visualized 4-chamber view with color: visualized 0-atcozc-etsyvzz view: normal Abdominal cord insertion: normal Stomach: [...] ovary Vol 2.4 cm Performed By: Asia Serrano, MALCOLM, RVT Read By: Zina Petersen M.D. MATERNAL MEDICINE [facility] Radiology Study observation (narrative) [facility] CBC W Auto Differential pane l (Bld)on 08-29-2024 Basophils (Bld) [#/Vol] 0.06 10*3/uL Normal <0.11 [facility] Comment on above: Order Comment: Speci men Type: BLOOD SPECIMENOrdering Facility: [facility] Address: [address] [place] [address] Performed By: #### 5 7021-8 ####[facility] LABCLIA [id number] [place] [address] [place] Basophils/100 WBC (Bld) 0.5 % Normal [facility] Comment on above: Order Comment: Speci men Type: BLOOD SPECIMENOrdering Facility: [facility] Address: [address] [place] [address] Performed By: #### 5 7021-8 ####[facility] LABCLIA [id number] [place] [address] [place] Differential cell count method Nom (Bld) Auto Normal [facility] Comment on above: Order Comment: Speci men Type: BLOOD SPECIMENOrdering Facility: [facility] Address: [address] [place] [address] Performed By: #### 5 7021-8 ####[facility] LABCLIA [id number] [place] [address] [place] Eosinophils (Bld) [#/Vol] 0.21 10*3/uL Normal <0.46 [facility] Comment on above: Order Comment: Speci men Type: BLOOD SPECIMENOrdering Facility: [facility] Address: [address] [place] [address] Performed By: #### 5 7021-8 ####[facility] LABCLIA [id number] [address], [place] [address] [place] Eosinophils/100 WBC (Bld) 1.7 % Normal [facility] Comment on above: Order Comment: Speci men Type: BLOOD SPECIMENOrdering Facility: [facility] Address: [address] [place] [address] Performed By: #### 5 7021-8 ####[facility] LABCLIA [id number] [address], [place] [address] [place] Erythrocyte distribution width (RBC) [Ratio] 15.5 % High 11.5-15.0 [facility] Comment on above: Order Comment: Speci men Type: BLOOD SPECIMENOrdering Facility: [facility] Address: [address] [place] [address] Performed By: #### 5 7021-8 ####[facility] LABIA [id number] [address], [place] [address] [place] Hematocrit (Bld) [Volume fraction] 33.8 % Low 36.0-46.0 [facility] Comment on above: Order Comment: Speci men Type: BLOOD SPECIMENOrdering Facility: [facility] Address: [address] [place] [address] Performed By: #### 5 7021-8 ####[facility] LABCLIA [id number] [address], [facility] [place] Hemoglobin (Bld) [Mass/Vol] 11.2 g/dL Low 11.5-15.5 [facility] Comment on above: Order Comment: Speci men Type: BLOOD SPECIMENOrdering Facility: [facility] Address: [address] [place] [address] Performed By: #### 5 7021-8 ####[facility] LABIA [id number] [place] [address] [place] Immature granulocytes (Bld) [#/Vol] 0.17 10*3/uL High <0.10 [facility] Comment on above: Order Comment: Speci men Type: BLOOD SPECIMENOrdering Facility: [facility] Address: [address] [place] [address] Performed By: #### 5 7021-8 ####[facility] LABCLIA [id number] [place] [address] [place] Immature granulocytes/100 WBC (Bld) 1.4 % Normal [facility] Comment on above: Order Comment: Speci men Type: BLOOD SPECIMENOrdering Facility: [facility] Address: [address] [place] [address] Performed By: #### 5 7021-8 ####[facility] LABCLIA [id number] [place] [address] [place] Lymphocytes (Bld) [#/Vol] 1.93 10*3/uL Normal 1.00-4.00 [facility] Comment on above: Order Comment: Speci men Type: BLOOD SPECIMENOrdering Facility: [facility] Address: [address] [place] [address] Performed By: #### 5 7021-8 ####[facility] LABCLIA [id number] [place] [address] [place] Lymphocytes/100 WBC (Bld) 15.6 % Normal [facility] Comment on above: Order Comment: Speci men Type: BLOOD SPECIMENOrdering Facility: [facility] Address: [address] [place] [address] Performed By: #### 5 7021-8 ####[facility] LABCLIA [id number] [place] [address] [place] MCH (RBC) [Entitic mass] 25.2 pg Low 26.0-34.0 [facility] Comment on above: Order Comment: Speci men Type: BLOOD SPECIMENOrdering Facility: [facility] Address: [address] [place] [address] Performed By: #### 5 7021-8 ####[facility] LABCLIA [id number] [place] [address] [place] MCHC (RBC) [Mass/Vol] 33.1 g/dL Normal 30.5-36.0 [facility] Comment on above: Order Comment: Speci men Type: BLOOD SPECIMENOrdering Facility: [facility] Address: [address] [place] [address] Performed By: #### 5 7021-8 ####[facility] LABCLIA [id number] [place] [address] [place] MCV (RBC) [Entitic vol] 76.0 fL Low 80.0-100.0 [facility] Comment on above: Order Comment: Speci men Type: BLOOD SPECIMENOrdering Facility: [facility] Address: [address] [place] [address] Performed By: #### 5 7021-8 ####[facility] LABIA [id number] [place] [address] [place] Monocytes (Bld) [#/Vol] 0.87 10*3/uL High <0.87 [facility] Comment on above: Order Comment: Speci men Type: BLOOD SPECIMENOrdering Facility: [facility] Address: [address] [place] [address] Performed By: #### 5 7021-8 ####[facility] LABCLIA [id number] [place] [address] [place] Monocytes/100 WBC (Bld) 7.0 % Normal [facility] Comment on above: Order Comment: Speci men Type: BLOOD SPECIMENOrdering Facility: [facility] Address: [address] [place] [address] Performed By: #### 5 7021-8 ####[facility] LABCLIA [id number] [address] [address] [place] Neutrophils (Bld) [#/Vol] 9.17 10*3/uL High 1.45-7.50 [facility] Comment on above: Order Comment: Speci men Type: BLOOD SPECIMENOrdering Facility: [facility] Address: [address] [place] [address] Performed By: #### 5 7021-8 ####[facility] LABCLIA [id number] [place] [address] [place] Neutrophils/100 WBC (Bld) 73.8 % Normal [facility] Comment on above: Order Comment: Speci men Type: BLOOD SPECIMENOrdering Facility: [facility] Address: [address] [place] [address] Performed By: #### 5 7021-8 ####[facility] LABCLIA [id number] [place] [address] [place] Nucleated RBC (Bld) [#/Vol] 10*3/uL Normal <0.01 [facility] Comment on above: Order Comment: Speci men Type: BLOOD SPECIMENOrdering Facility: [facility] Address: [address] [place] [address] Performed By: #### 5 7021-8 ####[facility] LABCLIA [id number] [place] [address] [place] Nucleated RBC/100 WBC (Bld) [Ratio] 0.0 /100 WBC Normal [facility] Comment on above: Order Comment: Speci men Type: BLOOD SPECIMENOrdering Facility: [facility] Address: [address] [place] [address] Performed By: #### 5 7021-8 ####[facility] LABCLIA [id number] [place] [address] [place] Platelet mean volume (Bld) [Entitic vol] 9.7 fL Normal 9.0-12.7 [facility] Comment on above: Order Comment: Speci men Type: BLOOD SPECIMENOrdering Facility: [facility] Address: [address] [place] [address] Performed By: #### 5 7021-8 ####[facility] LABCLIA [id number] [address] [address] [place] Platelets (Bld) [#/Vol] 275 10*3/uL Normal 150-400 [facility] Comment on above: Order Comment: Speci men Type: BLOOD SPECIMENOrdering Facility: [facility] Address: [address] [place] [address] Performed By: #### 5 7021-8 ####[facility] LABIA [id number] [place] [address] [place] RBC (Bld) [#/Vol] 4.45 10*6/uL Normal 3.90-5.20 [facility] Comment on above: Order Comment: Speci men Type: BLOOD SPECIMENOrdering Facility: [facility] Address: [address] [place] [address] Performed By: #### 5 7021-8 ####[facility] LABIA [id number] [place] [address] [place] WBC (Bld) [#/Vol] 12.41 10*3/uL High 3.70-11.00 [facility] Comment on above: Order Comment: Speci men Type: BLOOD SPECIMENOrdering Facility: [facility] Address: [address] [place] [address] Performed By: #### 5 7021-8 ####[facility] LABIA [id number] [place] [address] [place] Comprehensive metabolic 2000 panelon 08-29-2024 Albumin [Mass/Vol] 3.7 g/dL Low 3.9-4.9 [facility] Comment on above: Order Comment: Speci men Type: BLOOD SPECIMENOrdering Facility: [facility] Address: [address] [place] [address] [place] [address] Performed By: #### 2 4323-8, 3016-3 ####[facility] LABCLIA [id number] [facility] [address] [place] [address] [place] ALP [Catalytic activity/Vol] 61 U/L Normal 34-123 [facility] Comment on above: Order Comment: Speci men Type: BLOOD SPECIMENOrdering Facility: [facility] Address: [address] [place], [place] [address] Performed By: #### 2 4323-8, 6-3 ####[facility] LABCLIA [id number] [facility] [address] [place] [address] [place] ALT [Catalytic activity/Vol] 14 U/L Normal 7-38 [facility] Comment on above: Order Comment: Speci men Type: BLOOD SPECIMENOrdering Facility: [facility] Address: [address] [place], [place] [address] Performed By: #### 2 432-8, 6-3 ####[facility] LABCLIA [id number] [facility] [address] [place] [address] [place] Anion gap [Moles/Vol] 11 mmol/L Normal 8-15 [facility] Comment on above: Order Comment: Speci men Type: BLOOD SPECIMENOrdering Facility: [facility] Address: [address] [place] [address] Performed By: #### 2 4323-8, 6-3 ####[facility] LABCLIA [id number] [facility] [address] [place] [address] [place] AST [Catalytic activity/Vol] 26 U/L Normal 13-35 [facility] Comment on above: Order Comment: Speci men Type: BLOOD SPECIMENOrdering Facility: [facility] Address: [address] [place] [address] Performed By: #### 2 4323-8, 3016-3 ####[facility] LABCLIA [id number] [place] [place] [address] [place] Bilirubin [Mass/Vol] 0.2 mg/dL Normal 0.2-1.3 [facility] Comment on above: Order Comment: Speci men Type: BLOOD SPECIMENOrdering Facility: [facility] Address: [address] [place] [address] Performed By: #### 2 4323-8, 3016-3 ####[facility] LABCLIA [id number] [place] [address] [place] Calcium [Mass/Vol] 8.9 mg/dL Normal 8.5-10.2 [facility] Comment on above: Order Comment: Speci men Type: BLOOD SPECIMENOrdering Facility: [facility] Address: [address] [place] [address] Performed By: #### 2 4323-8, 6-3 ####[facility] LABCLIA [id number] [place] [address] [place] Chloride [Moles/Vol] 103 mmol/L Normal 98-107 [facility] Comment on above: Order Comment: Speci men Type: BLOOD SPECIMENOrdering Facility: [facility] Address: [address] [place] [address] Performed By: #### 2 4323-8, 6-3 ####[facility] LABCLIA [id number] [place] [address] [place] CO2 [Moles/Vol] 21 mmol/L Low 22-30 [facility] Comment on above: Order Comment: Speci men Type: BLOOD SPECIMENOrdering Facility: [facility] Address: [address] [place], [place] [address] Performed By: #### 2 4323-8, 3016-3 ####[facility] LABCLIA [id number] [place] [address] [place] Creatinine [Mass/Vol] 0.49 mg/dL Low 0.58-0.96 [facility] Comment on above: Order Comment: Nelly clay Type: BLOOD SPECIMENOrdering Facility: [facility] Address: [address] [place] [address] Performed By: #### 2 4323-8, 3016-3 ####[facility] LABCLIA [id number] [place] [address] [place] Creatinine and Glomerular filtration rate.predicted panel (S/P/Bld) 133 mL/min/1.73m??? Normal >=60 [facility] Comment on above: Order Comment: Nelly clay Type: BLOOD SPECIMENOrdering Facility: [facility] Address: [address] [place] [address] Result Comment: Nadya mated Glomerular Filtration Rate [...] accurately reflect actual GFR. Performed By: #### 2 4323-8, 6-3 ####[facility] LABCLIA [id number] [place] [address] [place] Glucose [Mass/Vol] 75 mg/dL Normal 74-99 [facility] Comment on above: Order Comment: [place] Type: BLOOD SPECIMENOrdering Facility: [facility] Address: [address] [place] [address] Result Comment: The [place] Diabetes Association (ADA) provides guidance for cutoff [...] Standards of Medical Care in Diabetes 2016, [place] Diabetes Association. Diabetes Care. 2016.39(Suppl 1). Performed By: #### 2 4323-8, 6-3 ####[facility] LABIA [id number] [address] [address] [place] Potassium [Moles/Vol] 4.1 mmol/L Normal 3.7-5.1 [facility] Comment on above: Order Comment: Speci men Type: BLOOD SPECIMENOrdering Facility: [facility] Address: [address] [place] [id number] Performed By: #### 2 4323-8, 3015-3 ####[facility] LABIA [id number] [place] [address] [place] Protein [Mass/Vol] 7.0 g/dL Normal 6.3-8.0 [facility] Comment on above: Order Comment: Speci men Type: BLOOD SPECIMENOrdering Facility: [facility] Address: [address] [place] [id number] Performed By: #### 2 4323-8, 3 ####[facility] LABIA [id number] [place] [address] [place] Sodium [Moles/Vol] 135 mmol/L Low 136-144 [facility] Comment on above: Order Comment: Speci men Type: BLOOD SPECIMENOrdering Facility: [facility] Address: [address] [place] [id number] Performed By: #### 2 4323-8, 3015-3 ####[facility] LABIA [id number] [address] [address] [place] Urea nitrogen [Mass/Vol] 8 mg/dL Normal 7-21 [facility] Comment on above: Order Comment: Speci men Type: BLOOD SPECIMENOrdering Facility: [facility] Address: [address] [place] [address] Performed By: #### 2 4323-8, 6-3 ####[facility] LABCLIA [id number] [place] [address] [place] HBV surface Ag Ser Qlon 08-03 HBV surface Ag Ql (S) Negative Normal Negative [facility] Comment on above: Order Comment: Speci men Type: BLOOD SPECIMENOrdering Facility: [facility] Address: [address] [place] [address] Performed By: #### 3 1201-7, 68862-6, 5195-3 ####[facility] LABCLIA [id number] [place] [address] [place] HCV Ab Ser Qlon 08-29-2024 HCV Ab Ql (S) Negative Normal Negative [facility] Comment on above: Order Comment: Speci men Type: BLOOD SPECIMENOrdering Facility: [facility] Address: [address] [place] [address] Result Comment: The result suggests no evidence of infection with Hepatitis C virus. Should recent infection be suspected, repeat testing may be considered 4-6 weeks after this draw. Performed By: #### 1 6128-1 ####[facility] LABIA [id number] [place] [address] [place] HIV 1+2 Ab IA Qlon HIV 1 and 2 Ab IA.rapid Nom (S/P/Bld) Normal [facility] Comment on above: Order Comment: Speci men Type: BLOOD SPECIMENOrdering Facility: [facility] Address: [address] [place] [address] Result Comment: Test not indicated. Performed By: #### 3 1201-7, 85551-6, 5195-3 ####[facility] LABIA [id number] [place] [address] [place] HIV 1+2 Ab+HIV1 p24 Ag IA Ql Non-Reactive Normal Nonreactive [facility] Comment on above: Order Comment: Speci men Type: BLOOD SPECIMENOrdering Facility: [facility] Address: [address] [place] [address] Performed By: #### 3 1201-7, 54008-6, 5195-3 ####[facility] [id number] [place] [address] [place] HIV immunoassay testing algorithm interpretation (S/P/Bld) [Interp] Normal [facility] Comment on above: Order Comment: Speci men Type: BLOOD SPECIMENOrdering Facility: [facility] Address: [address] [place] [address] Result Comment: No e vidence of HIV-1 or HIV-2 infection. Should recent infection be suspected, repeat testing may be considered 2-3 weeks after this draw. [place] Rev. Code 3701.243(E): This information has been [...] or diagnoses. Performed By: #### 3 1201-7, 19952-4, 5195-3 ####[facility] [id number] [place] [address] [place] HbA1c (Bld)on 08-29-2024 Average glucose Estimated from glycated hemoglobin (Bld) [Mass/Vol] 100 mg/dL Normal [facility] Comment on above: Order Comment: Speci men Type: BLOOD SPECIMENOrdering Facility: [facility] Address: [address] [place] [address] Result Comment: eAG: (Estimated average glucose) is a calculated value from HgbA1c and is canvas products sales representative of the average blood glucose level in the last 2-3 month period. Performed By: #### 5 5454-3 ####[facility] [id number] [place] [address] [place] HbA1c (Bld) [Mass fraction] 5.1 % Normal 4.3-5.6 [facility] Comment on above: Order Comment: Speci men Type: BLOOD SPECIMENOrdering Facility: [facility] Address: [address] [place] [address] Result Comment: [place] Diabetes Association guidelines indicate that patients with HgbA1c in the range 5.7-6.4% are at increased risk for development of diabetes, and intervention by lifestyle modification may be beneficial. HgbA1c greater or equal to 6.5% is considered diagnostic of diabetes. Performed By: #### 5 5454-3 ####[facility] LABCLIA [id number] [place] [address] [place] Prot/Creat Uron 08-29-2024 Protein/Creatinine (U) [Mass ratio] 0.31 mg/mg High <0.15 [facility] Comment on above: Order Comment: Speci men Type: URINE SPECIMENOrdering Facility: [facility] Address: [address] [place] [address] Result Comment: Adul t Proteinuria Categories: <0.15 mg/mg is considered normal to mildly increased 0.15 - 0.50 mg/mg is considered moderately increased >0.50 mg/mg is considered severely increased KDIGO. (2013). KDIGO 2012 Clinical Practice Guideline for the Evaluation and Management of Chronic Kidney Disease. Official Journal of the International Society of Nephrology, 3(1), 1-150. Performed By: #### 2 890-2 ####[facility] LABIA [id number] [place] [id number] [place] Protein/Creatinine (U) [Mass ratio]on 08-29-2024 Creatinine (U) [Mass/Vol] 293.9 mg/dL Normal 20.0-300.0 [facility] Comment on above: Order Comment: Speci men Type: URINE SPECIMENOrdering Facility: [facility] Address: [address] [place] [id number] Performed By: #### 2 890-2 ####[facility] LABIA [id number] [place] [address] [place] Protein (U) [Mass/Vol] 91 mg/dL High 0-20 [facility] Comment on above: Order Comment: Speci men Type: URINE SPECIMENOrdering Facility: [facility] Address: [address] [place] [address] Performed By: #### 2 890-2 ####[facility] LABIA [id number] [place] [address] [place] RUBELLA IGG ANTIBODYon 08-29 RUBELLA IGG AB, QUAL Negative Abnormal Positive [facility] Comment on above: Order Comment: Speci men Type: BLOOD SPECIMENOrdering Facility: [facility] Address: [address] [place] [address] Result Comment: The result suggests no history of Rubella vaccination or exposure to Rubella virus, however, some individuals with past history of Rubella vaccination may test negative using this test as immunity to Rubella virus wanes over time after vaccination. Please correlate with vaccination history if applicable. Performed By: #### R UBIGG ####[facility] LABIA [id number] [place] [address] [place] Reagin and Treponema pallidu m IgG and IgM [Interp]on 08-29-2024 T. pallidum IgG+IgM IA Ql (S) Non-Reactive Normal Nonreactive [facility] Comment on above: Order Comment: Speci men Type: BLOOD SPECIMENOrdering Facility: [facility] Address: [address] [place] [address] Performed By: #### 3 1201-7, 55735-6, 5195-3 ####[facility] LABIA [id number] [place] [address] [place] Reagin+T pallidum IgG+IgM Se rPl-Impon 08-29-2024 Reagin and Treponema pallidum IgG and IgM [Interp] Cannot exclude recent Treponemal infection if specimen collected within 7-10 days after appearance of suspect lesions or 2-3 weeks after an exposure. Clinical correlation is required. Normal [facility] Comment on above: Order Comment: Speci men Type: BLOOD SPECIMENOrdering Facility: [facility] Address: [address] [place] [address] Performed By: #### 3 1201-7, 54916-8, 5195-3 ####[facility] LABCLIA [id number] [place] [address] [place] TSH SerPl-aCncon 08-29-2024 TSH Qn 1.840 m[IU]/L Normal 0.270-4.200 [facility] Comment on above: Order Comment: Speci men Type: BLOOD SPECIMENOrdering Facility: [facility] Address: [address] [place] [address] Result Comment: If t he patient is , TSH reference range varies by gestational period: First Trimester (weeks 9-12): 0.180-2.990 mIU/L Second Trimester: 0.110-3.980 mIU/L Third Trimester: 0.480-4.710 mIU/L Yariel Garcia et al. A Practical Approach for the Verifications and Determination of Site- and Trimester-Specific Reference Intervals for Thyroid Function tests in . Thyroid, 2019:29:3:412-420. Juan E, et al. 2017 Guidelines of the [place] Thyroid Association for the Diagnosis and Management of Thyroid Disease during and the . Thyroid, 2017:27:3:315-389. Performed By: #### 2 4323-8, 3016-3 ####[facility] LABCLIA [id number] [place] [address] [place] TYPE + SCREEN PRENATALon ABO A Normal [facility] Comment on above: Order Comment: Speci men Type: BLOOD SPECIMENOrdering Facility: [facility] [facility] Address: [address] [place] [address] Performed By: #### T SPN ####CC [facility] BLOOD BANKCLIA [id number] [place] [address] [place] Rh Nom (Bld) Positive Normal [facility] Comment on above: Order Comment: Speci men Type: BLOOD SPECIMENOrdering Facility: [facility] Address: [address] [place] [address] Performed By: #### T SPN ####CC MAIN BLOOD BANKCLIA [id number] [place] [id number] [facility] TYPE AND SCREEN EXPIRATION 09/01/2024 23:59 Normal [facility] Comment on above: Order Comment: Speci men Type: BLOOD SPECIMENOrdering Facility: [facility] Address: [address] [place] [address] Performed By: #### T SPN ####CC MAIN BLOOD BANKCLIA [id number] [place] [id number] [facility] CNPNon 08-02-2024 CNPN Telephone ([id number]) -- JANET FRANK ([id number]) [address] [facility] Date Time Provider Department 08/02/24 STEFFANIE NEELY [id number] During your visit today, we recorded the following information about you: Steffanie Neely RN 08/02/2024 12:41 PM Signed 1st risk assessment form submitted 08/02/2024. 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 - aspirin, enteric coated (ECOTRIN LOW STRENGTH) 81 mg EC tablet Take 1 tablet by mouth once daily. - VIT 1-FAIV-VXYKT-DHA ORAL Take by mouth. - diphenhydramine HCl [...] Status:Closed by STEFFANIE NEELY on 08/02/24 Normal [facility] Telephone (OBGYWM) -- JANET FRANK ([id number]) 2000 F C[facility] Date Time Provider Department 08/02/24 ELAYNE SEVERINO During your visit today, we recorded the following information about you: Steffanie Lozada RN 08/02/2024 12:03 PM Signed 8w3d Patient viewed +Trich on Mychart. Asking if this could harm her baby. Please review result and advise. VENKATESH Lemons Renee, APRN.CIERRA 08/02/2024 12:34 PM Signed Flagyl sent. If STDs are left untreated there is small chance that is can lead to miscarriage. Does she need partner treatment? Elayne Severino APRN.Asia Fuller RN 08/02/2024 1:12 PM Signed Patient [...] way to prevent other STIs. Elayne Severino APRN.CIERRA 08/02/2024 1:56 PM Signed Rx sent. Elayne Severino APRN.CNP Allergies As of Date: 08/02/2024 (No Known Allergies) Date Reviewed: 08/01/2024 Reviewed by: Tammy Duke LPN - Fully Assessed Reason for Visit: Patient Question [1477] Primary Visit Diagnosis:Trichomoniasis [A59.9] Order(s):metroNIDAZOLE (FLAGYL) 500 mg tabletTake 1 tablet by mouth two times a day for 7 days.Disp: 14 tabletRfl: 0 EXPEDITED PARTNER TREATMENT [[id number]] Order #: [id number]: 1 metroNIDAZOLE (FLAGYL) 500 mg tabletTake 1 [...] tablet by mouth once daily. - VIT 1-WMUP-WNPEL-DHA ORAL Take by mouth. - diphenhydramine HCl [...] meal. P (more content not included)... Normal [facility] Bacteria Ur Culton 5 Bacteria identified Cx Nom (U) ORGANISM ID: 1 >=100,000 CFU/ml Normal urogenital pineda Normal [facility] Comment on above: Performed By: #### 6 30-4 ####[facility] [id number] [place] [address] [place] C. trachomatis+N. gonorrhoea e DNA RODERICK+probe Ql (Unsp spec)on 08-01-2024 C. trachomatis rRNA RODERICK+probe Ql (Unsp spec) Not detected Normal Not detected [facility] Comment on above: Order Comment: Speci men Type: SWABOrdering Facility: [facility] Address: [address] [place] [address] Performed By: #### 3 6902-5, TRRICHARD ####[facility] [id number] [place] [address] [place] N. gonorrhoeae rRNA RODERICK+probe Ql (Unsp spec) Not detected Normal Not detected [facility] Comment on above: Order Comment: Speci men Type: SWABOrdering Facility: [facility] Address: [address] [place] [address] Performed By: #### 3 6902-5, TRVAMP ####[facility] LABCLIA [id number] [place] [address] [place] POC DERMATOLOGIST MANAGING PARTNER ULTRASOUNDon 08-02-19 Indication Confirmation of intrauterine . [...] Read By: Elayne Severino CNP MATERNAL MEDICINE [facility] Radiology Study observation (narrative) [facility] TRICHOMONAS VAGINALIS NAATon 08-01-2024 T. vaginalis DNA RODERICK+probe Ql (Unsp spec) Detected Abnormal Not detected [facility] Comment on above: Order Comment: Speci men Type: SWABOrdering Facility: [facility] Address: [address] [place] [address] Performed By: #### 3 6902-5, TRVAMP ####[facility] LABCLIA [id number] [place] [id number] [place] Peggy 07-25-2024 CNPN Telephone (OBGYWM) -- ZACJANET J ([id number]) 2000 F T Date Time Provider Department 07/25/24 ELAYNE SEVERINO During your visit today, we recorded the following information about you: Xavier Currie RN 07/25/2024 4:16 PM Signed Left message [...] tablet by mouth once daily. - VIT 6-LSEM-CTSMI-DHA ORAL Take by mouth. - diphenhydramine HCl [...] Encounter Status:Closed by XAVIER CURRIE on 08/02/24 [facility] 07-22-2024 CNPN Telephone (FAMPWS) -- JANET FRANK ([id number]) 2000 F T Date Time Provider Department 07/22/24 [facility] During your visit today, we recorded the [...] to discuss options MD Edi Byrd Amanda, VENKATESH 07/22/2024 9:40 AM Signed Pt was scheduled [...] Encounter Status:Closed by LELA DALEY on 07/22/24 [facility] CNOVon 07-20-2024 CNOV Office Visit (OBGYWM ) -- JANET FRANK ([id number]) 2000 F CHT Date Time Provider Department 07/20/24 1:00 PM ROXANA RFY OBGYWM During your visit today, we recorded the following information about you: Blood pressure Weight Last Period 112 99.2 kg 06/04/24 Roxana Fry, SLIVER LAP 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.CNM 07/20/2024 1:31 PM Signed Janet Diego Zac is a 24 year old female who [...] transfusion after due to CBC of 3. Drag Out Worker History LMP: 05/13/2024 (Exact Date), Having periods Age at Menarche: Age at First : Age at Menopause: Drag Out Worker History Comments: Sexual Activity: Yes; Male Contraception: [...] 24 hours - RTO 1 week for GERMAN Whitt GERMAN Schmidt 07/20/2024 1:22 PM Signed MORNING SICKNESS IN by Bev Horowitz M.D. for [employer] As you may already know, morning sickness can often be more appropriately called evening sickness or tlqdz-bcwelp-uf-the-day sickness. While there are the bautista few, most women (50-90%) experience some degree of nausea, some have vomiting, and a few develop a severe form of vomiting during called hyperemesis gravidarum. What causes the nausea and vomiting of ? We (more content not included)... Normal [facility] UA DIP,URINE HCG (POC)on Beta HCG ( test) Ql (U) Positive Abnormal Negative [facility] Comment on above: Location:[facility], [address], [place], [address] Interpretation and review of laboratory results Abnormal [facility] Quality Control Analyst (POCT) Internal QC [facility] Location:[facility], [address], [place], [place], [id number] [place] [address] POINT OF CARE [facility] CNCOon 07-06-2024 CNCO Letter Text Normal [facility] CNCOon 06-27-2024 CNCO Letter Text Normal [facility] CNPNon 06-20-2024 [facility] JANET FRANK ([id number]) 2000 F T Date Time Provider Department 06/20/24 [facility] During your visit today, we recorded the [...] Please review and advise. BENEDICT Espinoza Ashley, APRN.CIERRA 06/20/2024 3:35 PM Signed Can you please [...] Rx for 30 mg Buspar sent to [facility] Justino Rodriguez. BENEDICT Reynoso Ashley, APRN.CIERRA 06/20/2024 3:55 PM Signed The following approved medication requests have been transmitted electronically. Requested Prescriptions Signed Prescriptions Disp Refills busPIRone 30 mg tablet 60 tablet 5 Sig: Take 1 tablet by mouth two times a day. Authorizing Provider: IVELISSE NG APRN.CNP Allergies As of Date: 06/20/2024 (No Known [...] Encounter Status:Closed by IVELISSE NG on 06/20/24 [facility] Tram 05-13-2024 CNOV Office Visit (FAMPWS ) -- JANET FRANK ([id number]) 2000 F CHT Date Time Provider Department 05/13/24 1:40 PM TERRELL CLOUD During your visit today, we recorded the following information about you: Temperature Pulse Respiration Blood pressure 99 degrees 72/minute 16/minute 121/78 Weight 93.4 kg Terrell Cloud APRN.FIRE 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 05/13/2024 1:47 PM Signed Chief Complaint Patient [...] - PREDNISONE 10 MG TABLET Terrell Cloud APRN.CIERRA This note was partly generated using Tideway voice recognition dictation and may contain some [...] food. Level of Service: OFFICE/OUTPATIENT ESTABLISHED MOD [facility] 30 MIN [69958] Encounter Status:Closed by TERRELL CLOUD on 05/13/24 [facility] Office Visit (OBGYWM ) -- [facility] ([id number]) 2000 [facility] Date [facility] Provider Department 05/13/24 10:00 AM ELAYNE SEVERINO OBGYWM During your visit today, we recorded the following information about you: Blood pressure Weight Last Period 122/66 94.9 kg 05/13/24 Elayne Severino APRN.FIRE 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 05/13/2024 10:22 AM Signed Janet Cortez Zac is a 24 year old female who [...] transfusion after due to CBC of 3. 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 Elayne Severino APRN.CIERRA Medical Decision Making: Problems: Low: Acute, uncomplicated [...] once da (more content not included)... Normal [facility] CNOVon 04-14-2024 CNOV Office Visit (WSTR ) -- ZACJANET ([id number]) 2000 F T Date Time Provider Department 04/14/24 12:00 PM [facility] During your visit today, we recorded the following information about you: Temperature Pulse Respiration Blood pressure 98 degrees 103/minute 20/minute 104/82 Weight 92.4 kg Kenneth Mckeon, SLIVER LAP 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 04/14/2024 1:33 PM Signed Subjective HPI Nontoxic-appearing [...] daily. 1/2 hr before meal. Drospirenone-Ethinyl Estradiol (PRANEETH 28,) 3-0.02 mg per tablet Take 1 [...] distension. Palpa (more content not included)... Normal [facility] STREP A MOLECULAR (POC)on Procedural Control Valid [facility] Strep A (POCT) Negative Negative [facility] US Pelvison 11-19-2023 Indication irregular menses, menorrhagia [...] Performed By: Leandra Davison RDMS Read By: Radha Tejada M.D. MATERNAL MEDICINE [facility] Radiology Study observation (narrative) [facility] Erythrocyte sedimentation ra teOrdered By: Thierno Winston on 07-02-2023 ESR (Bld) [Velocity] 5 mm/h 0-30 [facility] - Microbiology an d Antimicrobial susceptibilityOrdered By: Thierno Winston on 07-02-2023 SARS-CoV-2 (COVID-19) RNA RODERICK+probe Ql (Unsp spec) [facility] Serum or plasma choriogonado tropin detectionOrdered By: Thierno Winston on 07-02-2023 HCG ( test) Ql Negative [facility] UA DIP, URINE (POC)on 2022 BILIRUBIN UA (POCT) Small Abnormal Negative [facility] CLARITY UA (POCT) Clear [facility] COLOR UA (POCT) [place] [facility] GLUCOSE UA (POCT) 100 mg/dL Abnormal Negative mg/dL [facility] HEMOGLOBIN/BLOOD UA (POCT) Trace-intact Abnormal Negative [facility] KETONE UA (POCT) Trace Negative mg/dL [facility] LEUKOCYTES UA (POCT) Large Abnormal Negative [facility] NITRITE UA (POCT) Positive Abnormal Negative [facility] PH UA (POCT) 5.0 4.5 - 8.0 [facility] Protein Ql (U) 100 mg/dL Abnormal Negative mg/dL [facility] SPECIFIC GRAVITY UA (POCT) 1.015 1.005 - 1.030 [facility] UROBILINOGEN UA (POCT) 4.0 E.U./dL Abnormal Layne l E.U./dL [facility] Absolute lymphocyte countOrd ered By: Geoff Meza on 09-06-2022 Lymphocytes Auto (Unsp spec) [#/Vol] 1.63 10*3/uL 0.83-4.51 [facility] Basophil percentageOrdered B y: Geoff Meza on 09-06-2022 Basophil percentage 0 SEEN /hpf 0-5 [facility] Basophils/100 WBC (Bld) 0.8 % 0-1 [facility] Chloride [Moles/Vol] 106 mmol/L 98-107 [facility] Eosinophils/100 WBC (Bld) 2.5 % 0-5 [facility] Glucose [Mass/Vol] 86 mg/dL 74-106 [facility] Neutrophils (Bld) [#/Vol] 8.4 10*3/uL 2.0-7.7 [facility] Neutrophils/100 WBC (Bld) 75.4 % 47-70 [facility] Potassium [Moles/Vol] 3.3 mmol/L 3.5-5.1 [facility] Sodium [Moles/Vol] 139 mmol/L 136-145 [facility] WBC (Bld) [#/Vol] 11.2 10*3/uL 4.4-11.0 [facility] Bilirubin Test strip Ql (U)O rdered By: Geoff Meza on 09-06-2022 Bilirubin Ql (U) Negative Negative [facility] Blood erythrocytes count (nu mber/volume)Ordered By: Geoff Meza on 09-06-2022 RBC (Bld) [#/Vol] 5.26 10*6/uL 4.2-5.4 [facility] Blood hemoglobin measurement (mass/volume)Ordered By: Geoff Meza on 09-06-2022 Hemoglobin (Bld) [Mass/Vol] 14.3 g/dL 12.0-15.0 [facility] Blood lymphocytes/100 leukoc ytesOrdered By: Geoff Meza on 09-06-2022 Lymphocytes/100 WBC (Bld) 14.6 % 19-41 [facility] Blood monocytes/100 leukocyt esOrdered By: Geoff Meza on 09-06-2022 Monocytes/100 WBC (Bld) 6.3 % 0-10 [facility] Blood platelet mean volumeOr dered By: Geoff Meza on 09-06-2022 Platelet mean volume (Bld) [Entitic vol] 9.1 fL 6.2-12.0 [facility] Determination of erythrocyte mean corpuscular volume (MCV)Ordered By: Geoff Meza on 09-06-2022 MCV (RBC) [Entitic vol] 79.8 fL 81-99 [facility] Hematocrit Auto (Bld) [Volum e fraction]Ordered By: Geoff Meza on 09-06-2022 Hematocrit (Bld) [Volume fraction] 42.0 % 37-47 [facility] Ketones Test strip Ql (U)Ord ered By: Geoff Meza on 09-06-2022 Ketones Ql (U) Negative Negative [facility] Laboratory - Chemistry and C hemistry - challengeOrdered By: Geoff Meza on 09-06-2022 CK [Catalytic activity/Vol] 259 U/L 26-192 [facility] CO2 [Moles/Vol] 24.0 mmol/L 21.0-32.0 [facility] HCG ( test) Ql (U) Negative [facility] Comment on above: Very dilute urine sp ecimens, as indicated by a low specificgravity, may not contain canvas products sales representative levels of hCG. If is still suspected, a first morning urinespecimen should be collected 48 hours later and tested. Urea nitrogen/Creatinine [Mass ratio] 11.1 mg/mg 10-20 [facility] Laboratory - Hematology and Cell countsOrdered By: Geoff Meza on 09-06-2022 Erythrocyte distribution width (RBC) [Entitic vol] 38.1 fL 35.1-43.9 [facility] Erythrocyte distribution width (RBC) [Ratio] 13.3 % 11.6-14.6 [facility] Immature granulocytes/100 WBC (Bld) 0.400 % 0.0-0.9 [facility] Comment on above: IG% - Immature Granu locytes (promyelocytes, myelocytes and metamyelocytes) > 1% indicates that a LEFT SHIFT is Present. MCH (RBC) [Entitic mass] 27.2 pg 27.0-32.0 [facility] Nucleated RBC/100 WBC (Bld) [Ratio] 0 % 0-5 [facility] MCHC Auto (RBC) [Mass/Vol]Or dered By: Geoff Meza on 09-06-2022 MCHC (RBC) [Mass/Vol] 34.0 g/dL 32-36 [facility] Mucus LM Ql (Urine sed)Order ed By: Geoff Meza on 09-06-2022 Mucus Ql (Urine sed) 0 SEEN /hpf [facility] Nitrite Test strip Ql (U)Ord ered By: Geoff Meza on 09-06-2022 Nitrite Ql (U) Negative Negative [facility] No Panel InformationOrdered By: Geoff Meza on 09-06-2022 D-Dimer Quantitative (PE/DVT) < 0.27 FEU/ug/m 0.27-0.49 [facility] Comment on above: NORMAL D-Dimer level (<0.50) indicates no DVT or PE. Estimated Creatinine Clearance Calc 88.59 ml/min [facility] Estimated GFR (MDRD) Amer 111 mL/min >60 [facility] Comment on above: GFR Calc Estimated GFR (MDRD) Non-Af Amer 92 mL/min >60 [facility] Comment on above: Non- GFR Calc Thyroid Stimulating Hormone (TSH) 1.82 uIU/mL 0.358-3.74 [facility] Platelets bldOrdered By: Yelena Meza on 09-06-2022 Platelets (Bld) [#/Vol] 282 10*3/uL 150-450 [facility] Protein Test strip Ql (U)Ord ered By: Geoff Meza on 09-06-2022 Protein Ql (U) 15 mg/dl Negative [facility] Serum or plasma calcium lesley urement (mass/volume)Ordered By: Geoff Meza on 09-06-2022 Calcium [Mass/Vol] 9.4 mg/dL 8.5-10.1 [facility] Serum or plasma creatinine m easurement (mass/volume)Ordered By: Geoff Meza on 09-06-2022 Creatinine [Mass/Vol] 0.81 mg/dL 0.55-1.02 [facility] Comment on above: The validity of the calculated GFR & GFRAA in patients over 70 years has not been determined. Clinical correlation is essential. Serum or plasma urea nitroge n measurement (mass/volume)Ordered By: Geoff Meza on 09-06-2022 Urea nitrogen [Mass/Vol] 9 mg/dL 7-18 [facility] Squamous epithelial cells de tection in urine sediment by light microscopyOrdered By: Geoff Meza on 09-06-2022 Epithelial cells.squamous LM Ql (Urine sed) 0-5 SEEN /hpf 5-10 [facility] Thin prep Papanicolaou smear with manual screeningOrdered By: Geoff Meza on 09-06-2022 Thin prep Papanicolaou smear with manual screening 9 5-15 [facility] Urine blood detectionOrdered By: Geoff Meza on 09-06-2022 RBC Ql (U) 10 /ul Negative [facility] RBC Ql (U) 0 SEEN /hpf 0-5 [facility] Urine clarityOrdered By: Yelena Meza on 09-06-2022 Clarity (U) Clear Clear [facility] Urine color determinationOrd ered By: Geoff Meza on 09-06-2022 Color (U) Yellow Yellow [facility] Urine glucose detectionOrder ed By: Geoff Meza on 09-06-2022 Glucose Ql (U) Normal mg/dl Normal [facility] Urine leukocyte esterase det ection by dipstickOrdered By: Geoff Meza on 09-06-2022 Leukocyte esterase Test strip Ql (U) Negative Negative [facility] Urine pHOrdered By: Geoff cardoza on 09-06-2022 pH (U) 7.0 [pH] 5.0 - 8.0 [facility] Urine sediment bacteria coun t by microscopy (number/high power field)Ordered By: Geoff Meza on 09-06-2022 Bacteria LM.HPF (Urine sed) [#/Area] 0 /[HPF] None Seen [facility] Urine specific gravity measu rementOrdered By: Geoff Meza on 09-06-2022 Specific gravity (U) [Rel density] 1.010 1.002-1.030 [facility] Urobilinogen Auto test strip Ql (U)Ordered By: Geoff Meza on 09-06-2022 Urobilinogen Ql (U) Normal mg/dl Normal [facility] BASIC METABOLIC PANELon 08-03 Anion gap [Moles/Vol] 15 mmol/L Normal 10 - 20 [facility] Comment on above: Order Comment: Veronica LUCERO to Puja Yepez, 08/22/2022 15:26 Performed By: #### B MP #### [address] [address] Potassium [Moles/Vol] 2.9 mmol/L Critically low 3.5 - 5.3 [facility] Comment on above: Order Comment: Martin d- RB to Puja Yepez, 08/22/2022 15:26 Result Comment: Conf irmed by repeat analysis Called- RB to Puja Yepez, 08/22/2022 15:26 Performed By: #### B MP #### [address] [address] Calcium [Mass/Vol] 9.3 mg/dL Normal 8.6 - 10.3 [facility] Comment on above: Order Comment: Martin d- RB to Puja Yepez, 08/22/2022 15:26 Performed By: #### B MP #### [address] [address] Chloride [Moles/Vol] 103 mmol/L Normal 98 - 107 [facility] Comment on above: Order Comment: Martin d- RB to Puja Yepez, 08/22/2022 15:26 Performed By: #### B MP #### [address] [address] Creatinine [Mass/Vol] 0.67 mg/dL Normal 0.50 - 1.05 [facility] Comment on above: Order Comment: Martin d- RB to Puja Yepez, 08/22/2022 15:26 Performed By: #### B MP #### [address] [address] eGFR FEMALE >90 Normal >90 [facility] Comment on above: Order Comment: Martin d- RB to Puja Yepez, 08/22/2022 15:26 Result Comment: CALC ULATIONS OF ESTIMATED GFR ARE PERFORMED USING THE 2020 CKD-EPI STUDY REFIT EQUATION WITHOUT THE RACE VARIABLE FOR THE IDMS-TRACEABLE CREATININE METHODS. https://jasn.asnjournals.org/content//ASN.93878 82466 Performed By: #### B MP #### [place] [id number] Glucose [Mass/Vol] 79 mg/dL Normal 74 - 99 [facility] Comment on above: Order Comment: Martin d- RB to Puja Yepez, 08/22/2022 15:26 Performed By: #### B MP #### [place] [id number] HCO3 (Bld) [Moles/Vol] 22 mmol/L Normal 21 - 32 [facility] Comment on above: Order Comment: Martin d- RB to Puja Yepez, 08/22/2022 15:26 Performed By: #### B MP #### [place] [id number] Sodium [Moles/Vol] 137 mmol/L Normal 136 - 145 [facility] Comment on above: Order Comment: Martin d- RB to Puja Yepez, 08/22/2022 15:26 Performed By: #### B MP #### [place] [id number] Urea nitrogen [Mass/Vol] 6 mg/dL Normal 6 - 23 [facility] Comment on above: Order Comment: Martin d- RB to Puja Yepez, 08/22/2022 15:26 Performed By: #### B MP #### [place] [id number] CBC AND DIFFERENTIALon 08-22 % AUTOMATED IMMATURE GRAN 0.4 % Normal 0.0 - 0.9 [facility] Comment on above: Result Comment: Chioma ture Granulocyte Count (IG) includes promyelocytes, myelocytes and metamyelocytes but does not include bands. Percent differential counts (%) should be interpreted in the context of the absolute cell counts (cells/L). Performed By: #### C BCDF #### [place] [id number] Basophils (Bld) [#/Vol] 0.06 10*3/uL Normal 0.00 - 0.10 [facility] Comment on above: Performed By: #### C BCDF #### [place] [id number] Basophils/100 WBC (Bld) 0.6 % Normal 0.0 - 2.0 [facility] Comment on above: Performed By: #### C BCDF #### [address] [address] Eosinophils (Bld) [#/Vol] 0.10 10*3/uL Normal 0.00 - 0.70 [facility] Comment on above: Performed By: #### C BCDF #### [address] [address] Eosinophils/100 WBC (Bld) 0.9 % Normal 0.0 - 6.0 [facility] Comment on above: Performed By: #### C BCDF #### [address] [address] Erythrocyte distribution width (RBC) [Ratio] 13.3 % Normal 11.5 - 14.5 [facility] Comment on above: Performed By: #### C BCDF #### [address] [address] Hematocrit (Bld) [Volume fraction] 40.0 % Normal 36.0 - 46.0 [facility] Comment on above: Performed By: #### C BCDF #### [address] [address] Hemoglobin (Bld) [Mass/Vol] 13.6 g/dL Normal 12.0 - 16.0 [facility] Comment on above: Performed By: #### C BCDF #### [address] [address] Lymphocytes (Bld) [#/Vol] 2.50 10*3/uL Normal 1.20 - 4.80 [facility] Comment on above: Performed By: #### C BCDF #### [address] [address] Lymphocytes/100 WBC (Bld) 23.1 % Normal 13.0 - 44.0 [facility] Comment on above: Performed By: #### C BCDF #### [address] [address] MCHC (RBC) [Mass/Vol] 34.0 g/dL Normal 32.0 - 36.0 [facility] Comment on above: Performed By: #### C BCDF #### [address] [address] MCV (RBC) [Entitic vol] 79 fL Low 80 - 100 [facility] [facility] Comment on above: Performed By: #### C BCDF #### [address] [address] Monocytes (Bld) [#/Vol] 0.84 10*3/uL Normal 0.10 - 1.00 [facility] Comment on above: Performed By: #### C BCDF #### [address] [address] Monocytes/100 WBC (Bld) 7.7 % Normal 2.0 - 10.0 [facility] Comment on above: Performed By: #### C BCDF #### [address] [address] Neutrophils (Bld) [#/Vol] 7.30 10*3/uL Normal 1.20 - 7.70 [facility] Comment on above: Result Comment: Perc ent differential counts (%) should be interpreted in the context of the absolute cell counts (cells/L). Performed By: #### C BCDF #### [address] [address] Neutrophils/100 WBC (Bld) 67.3 % Normal 40.0 - 80.0 [facility] Comment on above: Performed By: #### C BCDF #### [address] [address] Platelets (Bld) [#/Vol] 304 10*3/uL Normal 150 - 450 [facility] Comment on above: Performed By: #### C BCDF #### [address] [address] RBC 5.08 x10E12/L Normal 4.00 - 5.20 [facility] Comment on above: Performed By: #### C BCDF #### [address] [address] WBC (Bld) [#/Vol] 10.8 10*3/uL Normal 4.4 - 11.3 [facility] Comment on above: Performed By: #### C BCDF #### [address] [address] [address] [facility]BDOMEN AND PELVIS W IV CONTRAST Patient Name: JANET FRANK STUDY: CT ABDOMEN AND PELVIS W IV CONTRAST; 08/22/2022 4:11 pm INDICATION: abd pain, diarrhea . COMPARISON: 07/30/2020 ACCESSION NUMBER(S): [id number] ORDERING CLINICIAN: TRIXIE BEARD TECHNIQUE: CT of [...] Electronically signed by: KAMILAH SULTANA MD Normal [facility] HCG,URINEon 08-22-2022 Beta HCG ( test) Ql (U) Negative Normal Negative [facility] Comment on above: Performed By: #### H CGU #### [address] [address] HEPATIC FUNCTION PANELon Albumin [Mass/Vol] 4.5 g/dL Normal 3.4 - 5.0 [facility] Comment on above: Performed By: #### H EPFP #### [address] [address] ALP [Catalytic activity/Vol] 61 U/L Normal 33 - 110 [facility] Comment on above: Performed By: #### H EPFP #### [address] [address] ALT [Catalytic activity/Vol] 24 U/L Normal 7 - 45 [facility] Comment on above: Result Comment: Geraldine ents treated with Sulfasalazine may generate falsely decreased results for ALT. Performed By: #### H EPFP #### [address] [address] AST [Catalytic activity/Vol] 23 U/L Normal 9 - 39 [facility] Comment on above: Performed By: #### H EPFP #### [address] [address] Bilirubin [Mass/Vol] 0.5 mg/dL Normal 0.0 - 1.2 [facility] Comment on above: Performed By: #### H EPFP #### [address] [address] Bilirubin.indirect [Mass/Vol] 0.1 mg/dL Normal 0.0 - 0.3 [facility] Comment on above: Performed By: #### H EPFP #### [address] [address] Protein [Mass/Vol] 7.4 g/dL Normal 6.4 - 8.2 [facility] Comment on above: Performed By: #### H EPFP #### [address] [address] LIPASEon 08-22-2022 Lipase [Catalytic activity/Vol] 16 U/L Normal 9 - 82 [facility] Comment on above: Result Comment: Sofi puncture immediately after or during the administration of Metamizole may lead to falsely low results. Testing should be performed immediately prior to Metamizole dosing. N-rokesz-r-benzoquinone imine (metabolite of Acetaminophen) will generate erroneously low results in samples for patients that have taken toxic doses of acetaminophen. Performed By: #### L IPAS ####[address] [address] Provider Note - ED v3on 08-03 Provider [...] made to minimize errors. 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 Please call if questions.. [...] Reference Range: STRAW,YELLOW Appearance, Urine CLEAR Specific [place], Urine 1.009 pH, Urine 6.0 Protein, Urine 30(1+) A Glucose, Urine NEGATIVE (more content not included)... Normal [facility] Risk Screen - Adult Emergenc yon 08-22-2022 Risk Screen - Adult Emergency Preferred Language: Preferred Language: Preferred Language for Discussing Health Care (patient/designee)Amharic Patient Preferred Pharmacy: Patient Preferred Pharmacy Statement: [...] instruction; verbal instruction Cultural Considerationsnone Developmental Considerationsnone Caodaism Considerationsnone Learning Assessment (Other Learner): Learning Assessment [...] Updated: 22-Aug-2022 14:11 by Annel Segundo (RN) 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 CELLS 3 /HPF Normal [facility] Comment on above: Performed By: #### U AMIC #### [place] [id number] WBC 1 /HPF Normal 0-5 [facility] Comment on above: Performed By: #### U AMIC #### [address] [address] URINALYSIS WITH CULTURE IF I NDICATEDon 08-22-2022 Appearance (U) CLEAR Normal CLEAR [facility] Comment on above: Performed By: #### U ARFX #### [address] [address] Bilirubin Ql (U) Negative Normal NEGATIVE [facility] Comment on above: Performed By: #### U ARFX #### [place] [address] Color (U) Yellow Normal STRAW,YELLOW [facility] Comment on above: Performed By: #### U ARFX #### [place] [address] Glucose Ql (U) Negative Normal NEGATIVE [facility] Comment on above: Performed By: #### U ARFX #### [place] [address] Hemoglobin Ql (U) Negative Normal NEGATIVE [facility] Comment on above: Performed By: #### U ARFX #### [place] [address] Ketones Ql (U) 20(1+) Abnormal NEGATIVE [facility] Comment on above: Performed By: #### U ARFX #### [place] [address] Leukocyte esterase Test strip Ql (U) Negative Normal NEGATIVE [facility] Comment on above: Performed By: #### U ARFX #### [place] [address] Nitrite Ql (U) Negative Normal NEGATIVE [facility] Comment on above: Performed By: #### U ARFX #### [place] [address] pH (U) 6.0 [pH] Normal 5.0 - 8.0 [facility] Comment on above: Performed By: #### U ARFX #### [place] [address] Protein Ql (U) 30(1+) Abnormal NEGATIVE [facility] Comment on above: Performed By: #### U ARFX #### [place] [address] Specific gravity (U) [Rel density] 1.009 Normal 1.005 - 1.035 [facility] Comment on above: Performed By: #### U ARFX #### [place] [address] Urobilinogen (U) [Mass/Vol] mg/dL Normal 0.0 - 1.9 [facility] Comment on above: Performed By: #### U ARFX #### [facility] [address] [place] [address] Absolute lymphocyte countOrd ered By: Dr. Spivey on 06-30-2022 Lymphocytes Auto (Unsp spec) [#/Vol] 2.06 10*3/uL 0.83-4.51 [facility] Basophil percentageOrdered B y: Dr. Spivey on 06-30-2022 Basophil percentage 0 SEEN /hpf 0-5 [facility] Basophils/100 WBC (Bld) 0.6 % 0-1 [facility] Bilirubin [Mass/Vol] 0.40 mg/dL 0.20-1.00 [facility] Comment on above: For patients on eltr ombopag therapy, use of Dimension [place]gett TBIL is not recommended. Chloride [Moles/Vol] 111 mmol/L 98-107 [facility] Eosinophils/100 WBC (Bld) 1.6 % 0-5 [facility] Glucose [Mass/Vol] 99 mg/dL 74-106 [facility] Neutrophils (Bld) [#/Vol] 6.6 10*3/uL 2.0-7.7 [facility] Neutrophils/100 WBC (Bld) 69.8 % 47-70 [facility] Potassium [Moles/Vol] 3.7 mmol/L 3.5-5.1 [facility] Protein [Mass/Vol] 7.3 g/dL 6.4-8.2 [facility] Sodium [Moles/Vol] 141 mmol/L 136-145 [facility] WBC (Bld) [#/Vol] 9.4 10*3/uL 4.4-11.0 [facility] Beta hCG serum qualOrdered B y: Dr. Spivey on 06-30-2022 Beta HCG ( test) Ql Negative [facility] Bilirubin Test strip Ql (U)O rdered By: Dr. Spivey on 06-30-2022 Bilirubin Ql (U) Negative Negative [facility] Blood erythrocytes count (nu mber/volume)Ordered By: Dr. Spivey on 06-30-2022 RBC (Bld) [#/Vol] 5.18 10*6/uL 4.2-5.4 [facility] Blood hemoglobin measurement (mass/volume)Ordered By: Dr. Spivey on 06-30-2022 Hemoglobin (Bld) [Mass/Vol] 13.9 g/dL 12.0-15.0 [facility] Blood lymphocytes/100 leukoc ytesOrdered By: Dr. Spivey on 06-30-2022 Lymphocytes/100 WBC (Bld) 21.9 % 19-41 [facility] Blood monocytes/100 leukocyt esOrdered By: Dr. Spivey on 06-30-2022 Monocytes/100 WBC (Bld) 5.6 % 0-10 [facility] Blood platelet mean volumeOr dered By: Dr. Spivey on 06-30-2022 Platelet mean volume (Bld) [Entitic vol] 9.3 fL 6.2-12.0 [facility] Determination of erythrocyte mean corpuscular volume (MCV)Ordered By: Dr. Spivey on 06-30-2022 MCV (RBC) [Entitic vol] 81.7 fL 81-99 [facility] Hematocrit Auto (Bld) [Volum e fraction]Ordered By: Dr. Spivey on 06-30-2022 Hematocrit (Bld) [Volume fraction] 42.3 % 37-47 [facility] Ketones Test strip Ql (U)Ord ered By: Dr. Spivey on 06-30-2022 Ketones Ql (U) Negative Negative [facility] Laboratory - Chemistry and C hemistry - challengeOrdered By: Dr. Spivey on 06-30-2022 ALP [Catalytic activity/Vol] 67 U/L 45-117 [facility] ALT [Catalytic activity/Vol] 26 U/L 13-56 [facility] CO2 [Moles/Vol] 23.0 mmol/L 21.0-32.0 [facility] Globulin (S) [Mass/Vol] 3.6 g/dL 2.2-4.2 [facility] Lipase [Catalytic activity/Vol] 109 U/L 73-393 [facility] Urea nitrogen/Creatinine [Mass ratio] 14.7 mg/mg 10-20 [facility] Laboratory - Hematology and Cell countsOrdered By: Dr. Spivey on 06-30-2022 Erythrocyte distribution width (RBC) [Entitic vol] 38.2 fL 35.1-43.9 [facility] Erythrocyte distribution width (RBC) [Ratio] 12.9 % 11.6-14.6 [facility] Immature granulocytes/100 WBC (Bld) 0.500 % 0.0-0.9 [facility] Comment on above: IG% - Immature Granu locytes (promyelocytes, myelocytes and metamyelocytes) > 1% indicates that a LEFT SHIFT is Present. MCH (RBC) [Entitic mass] 26.8 pg 27.0-32.0 [facility] Nucleated RBC/100 WBC (Bld) [Ratio] 0 % 0-5 [facility] MCHC Auto (RBC) [Mass/Vol]Or dered By: Dr. Spivey on 06-30-2022 MCHC (RBC) [Mass/Vol] 32.9 g/dL 32-36 [facility] Mucus LM Ql (Urine sed)Order ed By: Dr. Spivey on 06-30-2022 Mucus Ql (Urine sed) 0 SEEN /hpf [facility] Nitrite Test strip Ql (U)Ord ered By: Dr. Spivey on 06-30-2022 Nitrite Ql (U) Negative Negative [facility] No Panel InformationOrdered By: Dr. Spivey on 06-30-2022 Estimated Creatinine Clearance Calc 105.53 ml/min [facility] Estimated GFR (MDRD) Amer 137 mL/min >60 [facility] Comment on above: GFR Calc Estimated GFR (MDRD) Non-Af Amer 113 mL/min >60 [facility] Comment on above: Non- GFR Calc Platelets bldOrdered By: Dr. Spivey on 06-30-2022 Platelets (Bld) [#/Vol] 285 10*3/uL 150-450 [facility] Protein Test strip Ql (U)Ord ered By: Dr. Spivey on 06-30-2022 Protein Ql (U) 30 mg/dl Negative [facility] Serum or plasma albumin lesley urement (mass/volume)Ordered By: Dr. Spivey on 06-30-2022 Albumin [Mass/Vol] 3.7 g/dL 3.2-5.0 [facility] Serum or plasma albumin/glob ulin mass ratioOrdered By: Dr. Spivey on 06-30-2022 Albumin/Globulin [Mass ratio] 1.0 {ratio} 0.9-2.4 [facility] Serum or plasma calcium lesley urement (mass/volume)Ordered By: Dr. Spivey on 06-30-2022 Calcium [Mass/Vol] 9.0 mg/dL 8.5-10.1 [facility] Serum or plasma creatinine m easurement (mass/volume)Ordered By: Dr. Spivey on 06-30-2022 Creatinine [Mass/Vol] 0.68 mg/dL 0.55-1.02 [facility] Comment on above: The validity of the calculated GFR & GFRAA in patients over 70 years has not been determined. Clinical correlation is essential. Serum or plasma urea nitroge n measurement (mass/volume)Ordered By: Dr. Spivey on 06-30-2022 Urea nitrogen [Mass/Vol] 10 mg/dL 7-18 [facility] Squamous epithelial cells de tection in urine sediment by light microscopyOrdered By: Dr. Spivey on 06-30-2022 Epithelial cells.squamous LM Ql (Urine sed) 5-10 SEEN /hpf 5-10 [facility] Thin prep Papanicolaou smear with manual screeningOrdered By: Dr. Spivey on 06-30-2022 Thin prep Papanicolaou smear with manual screening 14 U/L 15-37 [facility] Thin prep Papanicolaou smear with manual screening 7 5-15 [facility] Urine blood detectionOrdered By: Dr. Spivey on 06-30-2022 RBC Ql (U) 25 /ul Negative [facility] RBC Ql (U) 0-5 SEEN /hpf 0-5 [facility] Urine clarityOrdered By: Dr. Spivey on 06-30-2022 Clarity (U) Sl. Cloudy Clear [facility] Urine color determinationOrd ered By: Dr. Spivey on 06-30-2022 Color (U) Yellow Yellow [facility] Urine glucose detectionOrder ed By: Dr. Spivey on 06-30-2022 Glucose Ql (U) Normal mg/dl Normal [facility] Urine leukocyte esterase det ection by dipstickOrdered By: Dr. Spivey on 06-30-2022 Leukocyte esterase Test strip Ql (U) Negative Negative [facility] Urine pHOrdered By: Dr. Ian alston on 06-30-2022 pH (U) 6.5 [pH] 5.0 - 8.0 [facility] Urine sediment bacteria coun t by microscopy (number/high power field)Ordered By: Dr. Spivey on 06-30-2022 Bacteria LM.HPF (Urine sed) [#/Area] 1 /[HPF] None Seen [facility] Urine specific gravity measu rementOrdered By: Dr. Spivey on 06-30-2022 Specific gravity (U) [Rel density] 1.015 1.002-1.030 [facility] Urobilinogen Auto test strip Ql (U)Ordered By: Dr. Spivey on 06-30-2022 Urobilinogen Ql (U) Normal mg/dl Normal [facility] XR WRIST INJURY 4V PA/LAT/OB L/SCAPH LEFTon 12-24-2021 [facility] XR Wrist - left 4 Viewson IMPRESSION: No acute osseous abnormality. Board Worker: KIERAN Transcribe Date/Time: Dec 24 2021 2:35P Dictated by : MEGAN ALEJANDRA DO This examination was interpreted and the report reviewed and electronically signed by: MEGAN ALEJANDRA DO on Dec 24 2021 2:37PM [facility] DIVISION OF RADIOLOGY * * [...] significant significant abnormality. DIVISION OF RADIOLOGY Provider, [facility] - 12/24/2021 * * *Final Report* [...] abnormality. IMPRESSION IMPRESSION: No acute osseous abnormality. Board Worker: PSCB Transcribe Date/Time: Dec 24 2021 2:35P Dictated by : MEGAN ALEJANDRA DO This examination was interpreted and the report reviewed and electronically signed by: MEGAN ALEJANDRA DO on Dec 24 2021 2:37PM EST [facility] Radiology Study observation (narrative) [facility] XR Wrist - left 4 ViewsOrder ed By: Ccf Provider on 12-24-2021 [facility] H. pylori IgG IA Qlon 2021 H. pylori IgG, Qualitative Negative Negative [facility] ANES Esme 10-14-2017 ANES POST HNO ID: [id number] thor: Meg Smithice: AnesthesiologyAuthor Type: AnesthesiologistType: Anesthesia PostOpFiled: 10/14/2017 4:06 [...] 14, 2017 : 4:06 PM PAGER/CONTACT #: [phone] [facility] ANES PREOPon 10-14-2017 ANES PREOP HNO ID: [id number] thor: Meg Shookervice: AnesthesiologyAuthor Type: AnesthesiologistType: Anesthesia PreOpFiled: 10/14/2017 12:15 PMNote Text: ANESTHESIOLOGY DAY OF SURGERY NOTESERVICE DATE: 10/14/2017SERVICE TIME: 12:14 PMDOB: 2000Procedure(s) (LRB):COLONOSCOPY (N/A)Surgeon(s):Abner StarkanEsted body mass index is 38.62 kg/m? as calculated from the following: Height as of 10/12/17: 160 cm (5' 3). Weight as of 10/12/17: 98.9 kg (218 lb).Most recent hematocrit and potassium results:Hematocrit 36.3 09/24/2017Potassium 3.8 03/18/2013NES DOS/PREOP NOTE:Vitals: 209BP: 112/65Pulse: 103Resp: 16Temp: 36 ?C (96.8 ?F)TempSrc: [...] anesthesia and no knownanesthesia problems in the [facility] Assessment: MP 1; Neck ROM: Full ROM [...] October 14, 2017 : 12:14 PM CSN: [id number] [facility] PT EDon 10-14-2017 PT ED HNO ID: [id number] thor: Massimo OquendoRn) ISIDORO Kellyervice: NursingAuthor Type: [...] Signed By: Massimo Kelly RN [facility]: [id number] thor: Pola Rasmussen) ISIDORO Blumervice: NursingAuthor Type: Registered NurseType: Patient EducationFiled: 10/14/2017 12:08 PMNote Text:PRE OP LEARNING ASSESSMENTPROCEDURE/SURGER Y: GI PROCEDURES: ColonoscopyREADINESS TO LEARNCOGNITIVE ABILITY: Alert and orientedMOTIVATION TO LEARN: EagerFAMILY SUPPORT: High - Very involved in pt carePATIENT LEARNS BEST BY: Individual InstructionVerbal InstructionFACTORS AFFECTING LEARNING: NonePHYSICAL LIMITATIONS AFFECTING LEARNING: NoneElectronically Signed By: Pola Blum RN In Department: [facility] SURGICAL PATHOLOGYon 018 SURGICAL PATHOLOGY ADDENDUM PRESENT Specimen originated from [facility] #: [id number] Physician: ABNER T. LAUREANO, MD FI NAL DIAGNOSIS1. Jejunum, biopsy (A) [...] - Colonic mucosa with no significantpathologic change.ES/lbk 10/16/[id number]. Given the presence of mild chronic inactive [...] stain that was performed on the gastric biopsy([id number], block B1) due to the presence of mild chronic inactivegastritis. The Helicobacter pylori immunohistochemical stain is negativefor Helicobacter pylori organisms. The final diagnosis remains unchanged.Laboratory Developed Test (LDT) Disclaimer:Positive and negative controls stain appropriately. Performancecharacteristics of immunohistochemical, immunofluorescent and chromogenicin-situ hybridization tests have been determined by [facility] [place] (-[facility]) monster manner consistent with CLIA requirements. One or more of these tests havenot been cleared or approved by the FDA. RT-[facility] is regulated under CLIA asqualified to perform high-complexity testing.These tests are used forclinical purposes. They should not be regarded as investigational or forresearch. 10/19/2017Addendum Pathologist: Cielo Al M.D.Electronic Signature CLINICAL [...] submitted in one cassette.Gross examination performed at [facility], [address] [place] [address] 10/14/2017 9:12:12 PMPatient ID #: [id number] of Report: 10/16/2017Date of Procedure: 10/14/2017Date of Receipt: 10/14/2017Submitted by: ABNER TINSLEY MDLocation: MEENDDiagnostic interpretation performed at [place] [address]. [facility] Comment on above: Performed By: #### P ATHS ####[facility] [address] [phone] NURSING PROGon 10-12-2017 NURSING PROG HNO ID: [id number] thor: Lyric Chao (Rn) Andrés, RNService: (none)Author [...] an injectionChart Check:Jeet [place] 2017 2:44 PM [facility] HOSPon 09-30-2017 HOSP Patient:Isabel Frank [facility] JMRN: Height:5' 3(1.6 m)Weight:218 lb (98.884 kg)Outpatient [...] 36.3 % 09/24/2017 46.0 36.0Progress Notes ([facility]):Nava Jama 10/02/2017 1:09 PM SignedNew patient referral received from Dr. Genie Jackson and given to Dr. hJony castillo.Ashley Russo Psr 10/07/2017 10:54 AM SignedI called and left a message for for Janet to call us back to schedule her newpatient appointment with , lab work prior(CBC/SMEAR). When patient callsback please schedule first open new patient appointment with lab work justprior, notes should read as follows... CBC/SMEAR/FACILITIES DIRECTOR/IRON DEF. ANEMIA/REF. CK*Once schedule please note and close encounterAshley Barnesethan PsrProgress Notes ([facility]):Radha Lassiterrobert Psr 10/02/2017 11:49 AM SignedPlease call patient to schedule. [phone] Psr [facility] 10/02/2017 1:03 PM SignedReferral sent to Dr. Booker to review. Normal [facility] Free T4on 05-17-2017 Thyroxine (T4) free 0.78 ng/dL Normal 0.58-1.64 [facility] Comment on above: Result Comment: Geraldine ents receiving more than 5mg/day of biotin may have interference in test results. A sample should be taken no sooner than eight hours after previous dose. Performed By: #### 2 [id number] ####ISABEL [address] [place] [address] TSHon 05-17-2017 Thyroid stimulating hormone (TSH) 0.41 mIU/m Normal 0.30-5.60 [facility] Comment on above: Performed By: #### 2 [id number] ####ISABEL [address] [place] [address] U BhCG Qlton 05-17-2017 HCG.beta subunit Qn Negative Normal Neg [facility] Comment on above: Performed By: #### 2 [id number] ####ISABEL Urinalysis Manual [address] [place] [address] UA Completeon 05-17-2017 UA Blood Negative Normal Negative [facility] Comment on above: Performed By: #### 8 [id number] ####ISABEL Urinalysis Automated [address] [place] [id number] UA Clarity Clear Normal Clear [facility] Comment on above: Performed By: #### 8 [id number] ####ISABEL Urinalysis Automated [address] [place] [address] UA Leuk Est Negative Normal Negative [facility] Comment on above: Performed By: #### 8 [id number] ####[facility]ABEL Urinalysis Automated [address] [place] [address] UA Mucous Trace Abnormal Trace [facility] Comment on above: Performed By: #### 8 [id number] ####ISABEL Urinalysis Automated [address] [place] [address] UA Nitrite Negative Normal Negative [facility] Comment on above: Performed By: #### 8 [id number] ####ISABEL Urinalysis Automated [address] [place] [address] UA pH 6.0 Normal 4.6-8.0 [facility] Comment on above: Performed By: #### 8 [id number] ####ISABEL Urinalysis Automated [address] [place] [address] UA Protein Negative Normal Negative [facility] Comment on above: Performed By: #### 8 [id number] ####ISABEL Urinalysis Automated [address] [place] [address] UA Spec Grav 1.009 Normal 1.003-1.030 [facility] Comment on above: Performed By: #### 8 [id number] ####ISABEL Urinalysis Automated [address] [place] [address] UA Squam Epithelial 5-10 Abnormal 0-5 [facility] Comment on above: Performed By: #### 8 [id number] ####ISABEL Urinalysis Automated [address] [place] [address] UA Urobilinogen Negative Normal [facility] Comment on above: Performed By: #### 8 [id number] ####ISABEL Urinalysis Automated [address] [place] [address] UA WBC 0-5 Normal 0-5 [facility] Comment on above: Performed By: #### 8 [id number] ####ISABEL Urinalysis Automated [address] [place] [address] Urine, color Straw Normal Yellow [facility] Comment on above: Performed By: #### 8 [id number] ####ISABEL Urinalysis Automated [address] [place] [address] Urine, erythrocytes 0-3 Normal 0-3 [facility] Comment on above: Performed By: #### 8 [id number] ####ISABEL Urinalysis Automated [address] [place] [address] Urine, glucose Negative Normal Negative [facility] [facility] Comment on above: Performed By: #### [id number] ####ISABEL Urinalysis Automated [id number] [place] [address] Urine, ketones presence Negative Normal Negative [facility] Comment on above: Performed By: #### [id number] ####ISABEL Urinalysis Automated [id number] [place] [address] Urine, urobilinogen Negative Normal Negative [facility] Comment on above: Performed By: #### [id number] ####ISABEL Urinalysis Automated [id number] [place] [address] XR Abdomen Acute (PA Chest)o n 05-17-2017 [...] 7:21 pmSigned by: Franklin Martinez MD Technologist: HLR Normal [facility] Vital Signs Date Time Vital Sign Value Performing Clinician Facility 01-12-2025 11:140400 Body mass index (BMI) [Ratio] 46.6 kg/m2 Ximena Hartman MD Work Phone: [facility] 01-12-2025 11:14-0400 Body weight 122.29 kg Ximena Hartman MD Work Phone: [facility] 01-12-2025 11:14-0400 Diastolic blood pressure 84 mm[Hg] Ximena Hartman MD Work Phone: [facility] 01-12-2025 11:14-0400 Systolic blood pressure 108 mm[Hg] Ximena Hartman MD Work Phone: [facility] 12-28-2024 13:41-0400 Body mass index (BMI) [Ratio] 45.97 kg/m2 Emmanuel Hess MD Work Phone: [facility] 12-28-2024 13:41-0400 Body weight 120.66 kg Emmanuel Hess MD Work Phone: [facility] 12-28-2024 13:41-0400 Diastolic blood pressure 84 mm[Hg] Emmanuel Hess MD Work Phone: [facility] 12-28-2024 13:41-0400 Systolic blood pressure 128 mm[Hg] Emmanuel Hess MD Work Phone: [facility] 12-23-2024 18:08-0400 Heart rate 110 /min Dr. Genie Jackson MD Work Phone: [facility] 12-23-2024 18:08-0400 SaO2% (BldA) [Mass fraction] 97 % Dr. Genie Jackson MD Work Phone: [facility] 12-23-2024 17:59-0400 Diastolic blood pressure 69 mm[Hg] Dr. Genie Jackson MD Work Phone: [facility] 12-23-2024 17:59-0400 Systolic blood pressure 120 mm[Hg] Dr. Genie Jackson MD Work Phone: [facility] 12-23-2024 17:58-0400 Body temperature 98.2 [degF] Dr. Genie Jackson MD Work Phone: [facility] 12-23-2024 17:58-0400 Respiratory rate 14 /min Dr. Genie Jackson MD Work Phone: [facility] 12-23-2024 17:49-0400 Body height 160.[address] Genie Jackson MD Work Phone: [facility] 12-23-2024 17:49-0400 Body mass index (BMI) [Ratio] 47.5 kg/m2 Dr. Genie Jackson MD Work Phone: [facility] 12-23-2024 17:49-0400 Body weight 121.[address] Genie Jackson MD Work Phone: [facility] 11-29-2024 10:14-0400 Body mass index (BMI) [Ratio] 44.9 kg/m2 Elayne Kosse [employer]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: [facility] 11-29-2024 10:14-0400 Body weight 117.84 kg Elayne Maycol [employer]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: [facility] 11-29-2024 10:14-0400 Diastolic blood pressure 74 mm[Hg] Elayne Maycol [employer]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: [facility] 11-29-2024 10:14-0400 Systolic blood pressure 126 mm[Hg] Elayne Maycol [employer]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: [facility] 11-19-2024 23:38-0400 Diastolic blood pressure 68 mm[Hg] Dr. Genie Jackson MD Work Phone: [facility] 11-19-2024 23:38-0400 Heart rate 94 /min Dr. Genie Jackson MD Work Phone: [facility] 11-19-2024 23:38-0400 Systolic blood pressure 117 mm[Hg] Dr. Genie Jackson MD Work Phone: [facility] 11-19-2024 23:00-0400 Body height 165.[address] Genie Jackson MD Work Phone: [facility] 11-19-2024 23:00-0400 Body mass index (BMI) [Ratio] 43.5 kg/m2 Dr. Genie Jackson MD Work Phone: [facility] 11-19-2024 23:00-0400 Body weight 118.[address] Genie Jackson MD Work Phone: [facility] 11-19-2024 22:38-0400 Body temperature 97.8 [degF] Dr. Genie Jackson MD Work Phone: [facility] 11-19-2024 22:38-0400 Respiratory rate 18 /min Dr. Genie Jackson MD Work Phone: [facility] 11-19-2024 22:38-0400 SaO2% (BldA) [Mass fraction] 92 % Dr. Genie Jackson MD Work Phone: [facility] 10-26-2024 11:12-0400 Body mass index (BMI) [Ratio] 44.07 kg/m2 Steffanie Lopez MD Work Phone: [facility] 10-26-2024 11:12-0400 Body weight 115.67 kg Steffanie Lopez MD Work Phone: [facility] 10-26-2024 11:12-0400 Diastolic blood pressure 82 mm[Hg] Steffanie Lopez MD Work Phone: [facility] 10-26-2024 11:12-0400 Systolic blood pressure 124 mm[Hg] Steffanie Lopez MD Work Phone: [facility] 09-29-2024 11:25-0400 Body mass index (BMI) [Ratio] 42.52 kg/m2 Emmanuel Hess MD Work Phone: [facility] 09-29-2024 11:25-0400 Body weight 111.58 kg Emmanuel Hess MD Work Phone: [facility] 09-29-2024 11:25-0400 Diastolic blood pressure 82 mm[Hg] Emmanuel Hess MD Work Phone: [facility] 09-29-2024 11:25-0400 Systolic blood pressure 110 mm[Hg] Emmanuel Hess MD Work Phone: [facility] 08-31-2024 11:48-0400 Body mass index (BMI) [Ratio] 40.27 kg/m2 Bhargavivivian Navas [employer] 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.CNM Work Phone: [facility] 08-31-2024 11:48-0400 Body weight 105.69 kg Bhargavi Navas [employer] 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.CNM Work Phone: [facility] 08-31-2024 11:48-0400 Diastolic blood pressure 70 mm[Hg] Bhargavi Navas [employer] 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.CNM Work Phone: [facility] 08-31-2024 11:48-0400 Systolic blood pressure 112 mm[Hg] Bhargavi Navas [employer] 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.CNM Work Phone: [facility] 08-01-2024 08:19-0400 Body mass index (BMI) [Ratio] 38.58 kg/m2 Elayne Maycol [employer]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: [facility] 08-01-2024 08:19-0400 Body weight 101.24 kg Elayne Maycol [employer]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: [facility] 08-01-2024 08:19-0400 Diastolic blood pressure 70 mm[Hg] Elayne Maycol [employer]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: [facility] 08-01-2024 08:19-0400 Systolic blood pressure 116 mm[Hg] Elayne Maycol [employer]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: [facility] 07-20-2024 13:05-0400 Body mass index (BMI) [Ratio] 37.82 kg/m2 Roxana Fry [employer] 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.CNM Work Phone: [facility] 07-20-2024 13:05-0400 Body weight 99.25 kg Roxana Fry [employer] 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.CNM Work Phone: [facility] 07-20-2024 13:05-0400 Diastolic blood pressure 64 mm[Hg] Roxana Plotts [employer] 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.CNM Work Phone: [facility] 07-20-2024 13:05-0400 Systolic blood pressure 112 mm[Hg] Roxana Plotts [employer] 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.CNM Work Phone: [facility] 05-13-2024 13:29-0500 Body mass index (BMI) [Ratio] 35.6 kg/m2 Terrell Cloud [employer]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: [facility] 05-13-2024 13:29-0500 Body temperature 99 [degF] Terrell Cloud [employer]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: [facility] 05-13-2024 13:29-0500 Body weight 93.44 kg Terrell Cloud [employer]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: [facility] 05-13-2024 13:29-0500 Diastolic blood pressure 78 mm[Hg] Terrell Cloud [employer]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: [facility] 05-13-2024 13:29-0500 Heart rate 72 /min Terrell Cloud [employer]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: [facility] 05-13-2024 13:29-0500 Respiratory rate 16 /min Terrell Cloud [employer]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: [facility] 05-13-2024 13:29-0500 SaO2% (BldA) [Mass fraction] 97 % Terrell Cloud [employer]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: [facility] 05-13-2024 13:29-0500 Systolic blood pressure 121 mm[Hg] Terrell Husam [employer]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: [facility] 05-13-2024 09:50-0500 Body mass index (BMI) [Ratio] 36.16 kg/m2 Elayne Severino [employer]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: [facility] 05-13-2024 09:50-0500 [facility] 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: [facility] 05-13-2024 09:50-0500 Diastolic blood pressure 66 mm[Hg] Elayne Maycol [employer]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: [facility] 05-13-2024 09:50-0500 Systolic blood pressure 122 mm[Hg] [facility] Kosse SLIVER [employer]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: [facility] 04-14-2024 12:00-0500 Body mass index (BMI) [Ratio] 35.21 kg/m2 [facility] SLIVER [employer]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: [facility] 04-14-2024 12:00-0500 Body temperature 98.01 [degF] [facility] [employer]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: [facility] 04-14-2024 12:00-0500 Body weight 92.4 kg [facility] [employer]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: [facility] 04-14-2024 12:00-0500 Diastolic blood pressure 82 mm[Hg] [facility] SL[employer]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: [facility] 04-14-2024 12:00-0500 Heart rate 103 /min [facility] [employer]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: [facility] 04-14-2024 12:00-0500 Respiratory rate 20 /min [facility] SL[employer]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: [facility] 04-14-2024 12:00-0500 SaO2% (BldA) [Mass fraction] 98 % [facility] [employer]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: [facility] 04-14-2024 12:00-0500 Systolic blood pressure 104 mm[Hg] [facility] SL[employer]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: [facility] 01-22-2024 09:25-0400 Body height 162 cm Ivelisse [facility] [employer]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: [facility] 01-22-2024 09:25-0400 Body mass index (BMI) [Ratio] 35.06 kg/m2 Ivelisse Tannhof [employer]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: [facility] 01-22-2024 09:25-0400 Body weight 92 kg Ivelisse Tannhof [employer]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: [facility] 01-22-2024 09:25-0400 Diastolic blood pressure 77 mm[Hg] Ivelisse Tannhof [employer]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: [facility] 01-22-2024 09:25-0400 Heart rate 58 /min Ivelisse Tannhof [employer]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: [facility] 01-22-2024 09:25-0400 Respiratory rate 16 /min Ivelisse Tannhof [employer]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: [facility] 01-22-2024 09:25-0400 SaO2% (BldA) [Mass fraction] 96 % Ivelisse Tannhof [employer]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: [facility] 01-22-2024 09:25-0400 Systolic blood pressure 110 mm[Hg] Ivelisse Tannhof [employer]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: [facility] 11-10-2023 15:35-0400 Body height 162.6 cm Elayne Maycol [employer]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: [facility] 11-10-2023 15:35-0400 Body mass index (BMI) [Ratio] 37.28 kg/m2 Elayne Maycol [employer]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: [facility] 11-10-2023 15:35-0400 Body weight 98.52 kg Elayne Kosse [employer]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: [facility] 11-10-2023 15:35-0400 Diastolic blood pressure 60 mm[Hg] Elayne Maycol [employer]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: [facility] 11-10-2023 15:35-0400 Systolic blood pressure 98 mm[Hg] Elayne Kosse [employer]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: [facility] 10-07-2023 11:32-0400 Body mass index (BMI) [Ratio] 39.01 kg/m2 Bhargavi Monique [employer]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: [facility] 10-07-2023 11:32-0400 Body temperature 98.6 [degF] Bhargavi Monique [employer]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: [facility] 10-07-2023 11:32-0400 Body weight 99.9 kg Bhargavi Monique [employer]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: [facility] 10-07-2023 11:32-0400 Diastolic blood pressure 80 mm[Hg] Bhargavi Monique [employer]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: [facility] 10-07-2023 11:32-0400 Heart rate 90 /min Bhargavi Monique [employer]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: [facility] 10-07-2023 11:32-0400 Respiratory rate 16 /min Bhargavi Monique [employer]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: [facility] 10-07-2023 11:32-0400 SaO2% (BldA) [Mass fraction] 99 % Bhargavi Monique [employer]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: [facility] 10-07-2023 11:32-0400 Systolic blood pressure 122 mm[Hg] Bhargavi Monique [employer]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: [facility] 07-06-2023 01:24-0500 Blood Pressure Location TERRELL AHMADI MD [facility] 07-06-2023 01:24-0500 Body height 160 cm TERRELL AHMADI MD [facility] 07-06-2023 01:24-0500 Body temperature 96.98 [degF] TERRELL AHMADI MD [facility] 07-06-2023 01:24-0500 Body weight 90.9 kg TERRELL AHMADI MD [facility] 07-06-2023 01:24-0500 Diastolic Blood Pressure Non-Invasive 86 mm[Hg] TERRELL AHMADI MD [facility] 07-06-2023 01:24-0500 Heart rate 88 /min TERRELL AHMADI MD [facility] 07-06-2023 01:24-0500 Respiratory rate 18 /min TERRELL AHMADI MD [facility] 07-06-2023 01:24-0500 Systolic Blood Pressure Non-Invasive 118 mm[Hg] TERRELL AHMADI MD [facility] 07-02-2023 11:11-0500 Diastolic blood pressure 80 mm[Hg] [facility] 07-02-2023 11:11-0500 Heart rate 96 /min [facility] 07-02-2023 11:11-0500 Respiratory rate 18 /min [facility] 07-02-2023 11:11-0500 SaO2% (BldA) [Mass fraction] 98 % [facility] 07-02-2023 11:11-0500 Systolic blood pressure 124 mm[Hg] [facility] 07-02-2023 08:44-0500 Body height 160.02 cm [facility] 07-02-2023 08:44-0500 Body mass index (BMI) [Ratio] 38.4 kg/m2 [facility] 07-02-2023 08:44-0500 Body temperature 98.3 [degF] [facility] 07-02-2023 08:44-0500 Body weight 98.4 kg [facility] 07-02-2023 08:24-0500 Body temperature 97.81 [degF] Bhargavi Monique APRN.CNP Work Phone: [facility] 07-02-2023 08:24-0500 Body weight 97.98 kg Bhargavi Monique [employer]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: [facility] 07-02-2023 08:24-0500 Diastolic blood pressure 70 mm[Hg] Bhargavi Monique [employer]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: [facility] 07-02-2023 08:24-0500 Heart rate 74 /min Bhargavi Monique [employer]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: [facility] 07-02-2023 08:24-0500 Respiratory rate 18 /min Bhargavi Monique [employer]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: [facility] 07-02-2023 08:24-0500 SaO2% (BldA) [Mass fraction] 99 % Bhargavi Monique [employer]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: [facility] 07-02-2023 08:24-0500 Systolic blood pressure 105 mm[Hg] Bhargavi Monique [employer]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: [facility] 09-30-2022 12:20-0400 Body temperature 99.19 [degF] Ruth Athy PA-C Work Phone: [facility] 09-30-2022 12:20-0400 Body weight 103.33 kg Ruth Athy PA-C Work Phone: [facility] 09-30-2022 12:20-0400 Diastolic blood pressure 72 mm[Hg] Ruth Athy PA-C Work Phone: [facility] 09-30-2022 12:20-0400 Heart rate 107 /min Ruth Athy PA-C Work Phone: [facility] 09-30-2022 12:20-0400 Respiratory rate 16 /min Ruth Athy PA-C Work Phone: [facility] 09-30-2022 12:20-0400 SaO2% (BldA) [Mass fraction] 96 % Ruth Athy PA-C Work Phone: [facility] 09-30-2022 12:20-0400 Systolic blood pressure 104 mm[Hg] Rtuh Vallejo PA-C Work Phone: [facility] 09-06-2022 15:49-0400 Body temperature 97.9 [degF] [facility] 09-06-2022 15:49-0400 Diastolic blood pressure 78 mm[Hg] [facility] 09-06-2022 15:49-0400 Heart rate 78 /min [facility] 09-06-2022 15:49-0400 Respiratory rate 16 /min [facility] 09-06-2022 15:49-0400 SaO2% (BldA) [Mass fraction] 99 % [facility] 09-06-2022 15:49-0400 Systolic blood pressure 134 mm[Hg] [facility] 09-06-2022 13:56-0400 Body height 160.02 cm [facility] 09-06-2022 13:56-0400 Body mass index (BMI) [Ratio] 40.7 kg/m2 [facility] 09-06-2022 13:56-0400 Body weight 104.28 kg [facility] 08-26-2022 13:05-0400 Body temperature 98.2 [degF] Terrell Husam [employer]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: [facility] 08-26-2022 13:05-0400 Body weight 105.23 kg Terrell Husam [employer]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: [facility] 08-26-2022 13:05-0400 Diastolic blood pressure 71 mm[Hg] Terrell Husam [employer]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: [facility] 08-26-2022 13:05-0400 Heart rate 100 /min Terrell Husam [employer]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: [facility] 08-26-2022 13:05-0400 Respiratory rate 16 /min Terrell Husam [employer]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: [facility] 08-26-2022 13:05-0400 SaO2% (BldA) [Mass fraction] 96 % Terrell Husam [employer]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: [facility] 08-26-2022 13:05-0400 Systolic blood pressure 108 mm[Hg] Terrell Cloud APRN.FIRE 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 Work Phone: [facility] 08-22-2022 19:52-0400 Diastolic blood pressure 67 mm[Hg] Genie Jackson Other Phone: [facility] 08-22-2022 19:52-0400 Heart rate 88 /min Genie Jackson Other Phone: [facility] 08-22-2022 19:52-0400 Respiratory rate 18 /min Genie Jackson Other Phone: [facility] 08-22-2022 19:52-0400 SaO2% (BldA) [Mass fraction] 97 % Genie Jackson Other Phone: [facility] 08-22-2022 19:52-0400 Systolic blood pressure 140 mm[Hg] Genie Jackson Other Phone: [facility] 08-22-2022 16:04-0400 Body height 160 cm Genie Jackson Other Phone: [facility] 08-22-2022 16:04-0400 Body temperature 97.7 [degF] Genie Jackson Other Phone: [facility] 08-22-2022 16:04-0400 Body weight 104 kg Genie Jackson Other Phone: [facility] 06-30-2022 08:53-0500 Body height 160.02 cm [facility] 06-30-2022 08:53-0500 Body mass index (BMI) [Ratio] 42.6 kg/m2 [facility] 06-30-2022 08:53-0500 Body temperature 97.8 [degF] [facility] 06-30-2022 08:53-0500 Body weight 109.13 kg [facility] 06-30-2022 08:53-0500 Diastolic blood pressure 84 mm[Hg] [facility] 06-30-2022 08:53-0500 Heart rate 94 /min [facility] 06-30-2022 08:53-0500 Respiratory rate 18 /min [facility] 06-30-2022 08:53-0500 SaO2% (BldA) [Mass fraction] 97 % [facility] 06-30-2022 08:53-0500 Systolic blood pressure 136 mm[Hg] [facility] 03-02-2022 22:09-0400 Heart rate 113 /min [facility] 03-02-2022 22:09-0400 Respiratory rate 15 /min [facility] 03-02-2022 22:09-0400 SaO2% (BldA) [Mass fraction] 97 % [facility] 03-02-2022 21:14-0400 Body height 160.02 cm [facility] Work Phone: 03-02-2022 21:14-0400 Body mass index (BMI) [Ratio] 40.7 kg/m2 [facility] 03-02-2022 21:14-0400 Body temperature 97.3 [degF] [facility] 03-02-2022 21:14-0400 Body weight 104.32 kg [facility] 03-02-2022 21:14-0400 Diastolic blood pressure 104 mm[Hg] [facility] 03-02-2022 21:14-0400 Systolic blood pressure 134 mm[Hg] [facility] 02-12-2022 14:11-0400 Body temperature 98.91 [degF] Michelle Podlogar [employer]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: [facility] 02-12-2022 14:11-0400 Body weight 106.96 kg Michelle Podlogar [employer]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: [facility] 02-12-2022 14:11-0400 Diastolic blood pressure 86 mm[Hg] Michelle Podlogar SLIVER [employer] 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AileenFIRE 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 Work Phone: [facility] 02-12-2022 14:11-0400 Heart rate 106 /min Michelle Podlogar [employer]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: [facility] 02-12-2022 14:11-0400 Respiratory rate 18 /min Michelle Podlogar [employer]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: [facility] 02-12-2022 14:11-0400 SaO2% (BldA) [Mass fraction] 98 % Michelle 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 [employer]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: [facility] [facility] 02-12-2022 14:11-0400 Systolic blood pressure 122 mm[Hg] Michelle Podlogar SLIVER LAP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: [facility] 02-05-2022 12:12-0400 Body temperature 98.71 [degF] Ruth Athy PA-C Work Phone: [facility] 02-05-2022 12:12-0400 Body weight 108.77 kg Ruth Athy PA-C Work Phone: [facility] 02-05-2022 12:12-0400 Diastolic blood pressure 64 mm[Hg] Ruth Athy PA-C Work Phone: [facility] 02-05-2022 12:12-0400 Heart rate 126 /min Ruth Athy PA-C Work Phone: [facility] 02-05-2022 12:12-0400 Respiratory rate 18 /min Ruth Athy PA-C Work Phone: [facility] 02-05-2022 12:12-0400 SaO2% (BldA) [Mass fraction] 97 % Ruth Athy PA-C Work Phone: [facility] 02-05-2022 12:12-0400 Systolic blood pressure 104 mm[Hg] Ruth Athy PA-C Work Phone: [facility] 02-02-2022 10:04-0400 Body temperature 98.71 [degF] Ruth Athy PA-C Work Phone: [facility] 02-02-2022 10:04-0400 Body weight 108.68 kg Ruth Athy PA-C Work Phone: [facility] 02-02-2022 10:04-0400 Diastolic blood pressure 76 mm[Hg] Ruth Athy PA-C Work Phone: [facility] 02-02-2022 10:04-0400 Heart rate 99 /min Ruth Athy PA-C Work Phone: [facility] 02-02-2022 10:04-0400 Respiratory rate 20 /min Ruth Athy PA-C Work Phone: [facility] 02-02-2022 10:04-0400 SaO2% (BldA) [Mass fraction] 98 % Ruth Athy PA-C Work Phone: [facility] 02-02-2022 10:04-0400 Systolic blood pressure 126 mm[Hg] Ruth Athy PA-C Work Phone: [facility] 12-24-2021 14:16-0400 Body temperature 97.81 [degF] Ruth Athy PA-C Work Phone: [facility] 12-24-2021 14:16-0400 Body weight 107.59 kg Ruth Athy PA-C Work Phone: [facility] 12-24-2021 14:16-0400 Diastolic blood pressure 70 mm[Hg] Ruth Athy PA-C Work Phone: [facility] 12-24-2021 14:16-0400 Heart rate 107 /min Ruth Athy PA-C Work Phone: [facility] 12-24-2021 14:16-0400 Respiratory rate 18 /min Ruth Athy PA-C Work Phone: [facility] 12-24-2021 14:16-0400 SaO2% (BldA) [Mass fraction] 97 % Ruth Athy PA-C Work Phone: [facility] 12-24-2021 14:16-0400 Systolic blood pressure 114 mm[Hg] Ruth Athy PA-C Work Phone: [facility] 09-17-2021 13:46-0400 Body temperature 99.3 [degF] Terrell Husam SLIVER LAP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: [facility] 09-17-2021 13:46-0400 Body weight 107.05 kg Terrell Husam SLIVER LAP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: [facility] 09-17-2021 13:46-0400 Diastolic blood pressure 80 mm[Hg] Terrell Husam SLIVER LAP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: [facility] 09-17-2021 13:46-0400 Heart rate 88 /min Terrell Husam SLIVER LAP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: [facility] 09-17-2021 13:46-0400 Respiratory rate 16 /min Terrell Husam SLIVER LAP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: [facility] 09-17-2021 13:46-0400 Systolic blood pressure 112 mm[Hg] Terrell Husam SLIVER LAP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: [facility] Encounters Encounter Date Encounter Type Care Provider Facility Start: 02-14-2025 End: 02-14-2025 ambulatory GENIE Marie [facility] Facility:[facility] Start: 02-13-2025 End: 02-13-2025 ambulatory EMMANUEL HESS Facility:[facility] Start: 02-09-2025 End: 02-09-2025 ambulatory EMMANUEL HESS Facility:[facility] Start: 02-09-2025 End: 02-09-2025 ambulatory XIMENA HARTMAN Facility:[facility] Start: 02-07-2025 End: 02-07-2025 ambulatory GENIE Marie [facility] Facility:[facility] Start: 02-02-2025 End: 02-02-2025 ambulatory [facility] Facility:[facility] Start: 2025 End: 2025 ambulatory EMMANUEL HESS Facility:[facility] Start: 01-27-2025 End: 01-27-2025 ambulatory [facility] Facility:[facility] Start: 01-27-2025 End: 01-27-2025 ambulatory GENIE Marie [facility] Facility:[facility] Start: 01-24-2025 End: 01-24-2025 ambulatory EMMANUELLOIS HESS Facility:[facility] Start: 01-17-2025 End: 01-17-2025 ambulatory Ximena Hartman MD Work Phone: OB/Gynecology Comment on above: My due date Start: 01-12-2025 End: 01-12-2025 Patient encounter procedure Ximena Hartman MD Work Phone: OB/Gynecology Comment on above: Anemia during pregna ncy in third trimester (HCC) (Primary Dx); Obesity in (HCC); Supervision of high risk in third trimester (HCC); 31 weeks gestation of (HCC) Start: 01-12-2025 End: 01-12-2025 ambulatory GENIE Marie [facility] Facility:[facility] Start: 01-05-2025 End: 01-05-2025 Refill Andre Simpson APRN.[facility] Work Phone: Family [facility] Comment on above: Refill Request Start: 12-29-2024 End: 12-29-2024 Telephone encounter Steffanie Neely RN Maternal Medic ine Comment on above: Sales Coordinator - O ther (PRAF) Results Start: 12-28-2024 End: 12-28-2024 Patient encounter procedure Container Packer Operator [employer] Work Phone: Maternal Medicine Comment on above: Supervision of other high risk pregnancies, second trimester (HCC); Hx of preeclampsia, prior , currently (HCC); Obesity in (HCC); Hypothyroidism, unspecified type Supervision of high risk in third trimester (HCC) (Primary Dx); Hypothyroidism, unspecified type; Obesity in (HCC); 29 weeks gestation of (HCC); Need for vaccination; Encounter for other general counseling or advice on contraception; Sciatica of right side Start: 12-28-2024 End: 12-28-2024 ambulatory ELAYNE SEVERINO Facility:[facility] Start: 12-23-2024 End: 12-23-[address] Genie Jackson MD Work Phone: [facility] Start: 12-23-2024 End: 12-23-2024 Patient encounter procedure Roxana Fry CNM [facility] Work Phone: Start: 12-23-2024 End: 12-23-2024 Telephone encounter Roxana Fry SLIVER LAP 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.CNM Work Phone: OB/Gynecology Start: 11-29-2024 End: 11-29-2024 Telemedicine consultation with patient Andre Simpson SLIVER LAP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: [facility] [place] Start: 11-29-2024 End: 11-29-2024 ambulatory Andre Masha SLIVER LAP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: [facility] [place] Comment on above: Anxiety with depress ion Start: 11-29-2024 End: 11-29-2024 Patient encounter procedure Elayne Severino APRN.FIRE 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 Work Phone: OB/Gynecology Comment on above: Supervision of other high risk pregnancies, second trimester (HCC) (Primary Dx); 25 weeks gestation of (HCC); Screening for diabetes mellitus; Hx of preeclampsia, prior , currently (HCC); Hypothyroidism, unspecified type; Obesity in (HCC) Start: 11-29-2024 End: 11-29-2024 ambulatory ELAYNEMEE ÁLVAREZMAYCOL Facility:[facility] Start: 11-19-2024 End: 11-20-[address] Genie Jackson MD Work Phone: [facility] Start: 11-19-2024 End: 11-20-[address] Steffanie Lopez MD [facility] Work Phone: Start: 11-19-2024 End: 11-21-2024 Telephone encounter Steffanie Lopez MD Work Phone: OB/Gynecology Start: 11-16-2024 End: 11-16-2024 Telephone encounter Joyce Doll MD Work Phone: OB/Gynecology Start: 10-27-2024 End: 10-27-2024 Telephone encounter Steffanie Neely RN [facility]aternal [facility] Comment on above: Sales Coordinator - O ther (PRAF) Start: 10-26-2024 End: 12-26-2024 Follow-up encounter Bhargavi Navas APRN.CNM Work Phone: OB/Gynecology Start: 10-26-2024 End: 10-26-2024 Office outpatient visit 15 minutes Steffanie Lopez MD Work Phone: OB/Gynecology Comment on above: Supervision of other high risk pregnancies, second trimester (HCC) (Primary Dx); Obesity in (HCC); Hypothyroidism, unspecified type; Hx of preeclampsia, prior , currently (HCC); 20 weeks gestation of (HCC) Start: 10-26-2024 End: 10-26-2024 Patient encounter procedure Whi Tech 1 Container Packer Operator Mfm [facility] Maternal Medicine Comment on above: Obesity in (HCC) (Primary Dx); 8 weeks gestation of (HCC) Start: 10-26-2024 End: 10-26-2024 ambulatory [facility] Facility:[facility] Start: 10-25-2024 End: 10-25-2024 ambulatory [facility] Facility:[facility] Start: 10-11-2024 End: 11-30-2024 Refill Bhargavi Navas APRN.CNM Work Phone: OB/Gynecology Comment on above: Refill Request Start: 10-05-2024 End: 10-05-2024 Patient encounter procedure Whi Tech 4 Container Packer Operator Mfm [facility] Maternal Medicine [facility] Comment on above: Encounter for antena heidy screening for malformation (HCC) (Primary Dx); Supervision of other high risk pregnancies, second trimester (HCC); Hx of preeclampsia, prior , currently (HCC); Obesity in (HCC); Hypothyroidism, unspecified type Start: 10-05-2024 End: 10-05-2024 ambulatory EMMANUEL HESS Facility:[facility] Start: 09-30-2024 End: 11-30-2024 Follow-up encounter Elayne Severino APRN.CNP Work Phone: OB/Gynecology Start: 09-29-2024 End: 09-29-2024 Patient encounter procedure Emmanuel Hess MD Work Phone: OB/Gynecology Comment on above: Supervision of other high risk pregnancies, second trimester (HCC) (Primary Dx); Hx of preeclampsia, prior , currently (HCC); Obesity in (HCC); Hypothyroidism, unspecified type; 16 weeks gestation of (HCC); Trichomoniasis; Screen for STD (sexually transmitted disease) Start: 09-29-2024 End: 09-29-2024 [facility] Start: 09-27-2024 End: 11-27-2024 Follow-up encounter Bhargavi Navas APRN.CNM Work Phone: OB/Gynecology Start: 09-23-2024 End: 09-23-2024 ambulatory GENIE JACKSON Facility:[facility] Start: 09-08-2024 End: 09-08-2024 [facility] Genie Jackson MD Work Phone: [facility] [place] Comment on above: RUDOLPH (generalized anx iety disorder); Panic attack Start: 09-07-2024 End: 09-08-2024 Refill Genie Jackson MD Work Phone: [facility] [place] Comment on above: Refill Request Start: 08-31-2024 End: 08-31-2024 Patient encounter procedure i Tech 1 Container Packer Operator Mfm [facility] [employer] Maternal Medicine Comment on [...] and depression; Trichomoniasis Start: 08-31-2024 End: 08-31-2024 ambulatory [facility] Facility:[facility] Start: 08-29-2024 End: 08-29-2024 ambulatory [facility] Facility:[facility] Start: 08-04-2024 End: 08-04-2024 [facility] Genie Jackson MD Work Phone: Family [facility] [place] Comment on above: RUDOLPH (generalized anx iety disorder) (Primary Dx); Panic attack; Chronic constipation Start: 08-02-2024 End: 08-02-2024 Telephone encounter Steffanie Neely RN [facility]aternal [facility] Comment on above: Sales Coordinator - O ther (PRAF) Patient Question Start: 08-01-2024 End: 10-01-2024 Follow-up encounter Elayne Severino SLIVER LAP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: OB/Gynecology Start: 08-01-2024 End: 08-01-2024 [facility] Facility:[facility] Start: 08-01-2024 End: 08-01-2024 Patient encounter procedure Elayne Severino SLIVER LAP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: OB/Gynecology Comment on above: Encounter for superv ision of normal intrauterine in multigravida, antepartum (Primary Dx); with uncertain dates, antepartum; History of hemorrhage; Screen for STD (sexually transmitted disease); 8 weeks gestation of ; Hx of preeclampsia, prior , currently ; Hypothyroidism, unspecified type; BMI 38.0-38.9,adult Start: 07-25-2024 End: 08-02-2024 Telephone encounter Elayne Severino SLIVER LAP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: OB/Gynecology Comment on above: Future Appointment Start: 07-22-2024 End: 07-22-2024 Telephone encounter Genie Jackson MD Work Phone: [facility] [place] Comment on above: Medication Problem Start: 07-20-2024 End: 07-20-2024 ambulatory GENIE JACKSON Facility:[facility] Start: 07-20-2024 End: 07-20-2024 Patient encounter procedure Roxanalacy Fry APRN.CNM Work Phone: OB/Gynecology Comment on above: Missed menses (Prima ry Dx); Nausea and vomiting during ; 6 weeks gestation of Start: 06-20-2024 End: 06-20-2024 Telephone encounter Ivelisse Ng APRN.CNP Work Phone: [facility] [place] Comment on above: patient medication q uestion Start: 06-15-2024 End: 06-15-2024 ambulatory Ivelisse Ng APRN.CNP Work Phone: [facility] [place] Comment on above: Anxiety with depress ion (Primary Dx) Start: 06-15-2024 End: 06-15-2024 Telemedicine consultation with patient Ivelisse Ng APRN.CNP Work Phone: [facility] [place] Start: 05-13-2024 End: 05-13-2024 Office outpatient visit 25 minutes Terrell Cloud APRN.CIERRA Work Phone: [facility] [place] Comment on above: Tension headache (Pr imary Dx) Start: 05-13-2024 End: 05-13-2024 ambulatory TERRELL CLOUD Facility:[facility] Start: 05-13-2024 End: 05-13-2024 Patient encounter procedure Elayne Severino APRN.CIERRA Work Phone: OB/Gynecology Comment on above: Encounter for precon ception consultation (Primary Dx) Start: 04-14-2024 End: 04-14-2024 ambulatory GENIE JACKSON Facility:[facility] Start: 04-14-2024 End: 04-14-2024 Office outpatient visit 15 minutes Kenneth Mckeon APRN.CNP Work Phone: [facility] Comment on above: Sore throat (Primary Dx); Viral illness Start: 03-22-2024 End: 03-22-2024 Refill Genie Jackson MD Work Phone: [facility] [place] Comment on above: Refill Request Start: 02-19-2024 End: 02-19-2024 Refill Ivelisse Ng APRN.CNP Work Phone: [facility] Comment on above: Refill Request Start: 01-22-2024 End: 01-22-2024 Patient encounter procedure Ivelisse Ng SLIVER LAP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: [facility] Comment on above: Wellness examination (Primary Dx); Anxiety with depression; Chronic constipation; Hypothyroidism, unspecified type; Gastroesophageal reflux disease, unspecified whether esophagitis present; Encounter for contraceptive management, unspecified type; Screening for depression; Encounter for screening examination for other mental health and behavioral disorders Start: 01-20-2024 End: 01-20-2024 Refill Ivelisse Ng SLIVER LAP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: [facility] Comment on above: Refill Request Start: 01-18-2024 End: 01-21-2024 Refill Ivelisse Ng SLIVER LAP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: [facility] Comment on above: Refill Request Start: 01-14-2024 End: 01-15-2024 Telephone encounter Elayne Severino APRN.FIRE 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 Work Phone: OB/Gynecology Comment on above: Appointment Start: 12-19-2023 End: 12-21-2023 Refill Ivelisse Ng SLIVER LAP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: [facility] Comment on above: Refill Request Start: 12-17-2023 Refill Ivelisse Ng APRN.FIRE 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 Work Phone: [facility] Comment on above: Refill Request Start: 11-24-2023 End: 11-24-2023 ambulatory Elaynemee Severino SLIVER LAP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: OB/Gynecology Comment on above: Adenomyosis (Primary Dx) Start: 11-24-2023 End: 11-24-2023 Telemedicine consultation with patient Elayne Severino SLIVER LAP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: OB/Gynecology Start: 11-20-2023 Telephone encounter Elayne hurtado SLIVER LAP 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.CIERRA Work Phone: OB/Gynecology Comment on above: Results (Pelvic US) Start: 11-19-2023 End: 11-19-2023 ambulatory Whi [facility] OB/Gynecology Start: 11-19-2023 End: 11-19-2023 Patient encounter procedure i Tech 1 Container Packer Operator Wstr [employer] OB/Gynecology Start: 11-15-2023 Refill Terrell Husam SLIVER LAP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: [facility] [place] Comment on above: Refill Request Start: 11-12-2023 Refill Genie hernandez MD Work Phone: [facility] [place] Comment on above: Refill Request lab results Start: 11-10-2023 End: 11-10-2023 Patient encounter procedure Elayne Severino SLIVER LAP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: OB/Gynecology Comment on above: Encounter for gyneco logical examination (general) (routine) without abnormal findings (Primary Dx); Screening for cervical cancer; Encounter for screening for human papillomavirus (HPV) Start: 11-10-2023 End: 11-10-2023 Patient encounter status Elaynemee Severino APRN.FIRE 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 Work Phone: [facility] Start: 11-04-2023 End: 11-04-2023 ambulatory Rohan Yoon MD Work Phone: Gynecology Comment on above: Irregular menses (Pr imary Dx); Acquired hypothyroidism; Class II obesity; Menorrhagia with irregular cycle; Dysmenorrhea Start: 11-04-2023 End: 11-04-2023 Telemedicine consultation with patient Rohan Yoon MD Work Phone: Gynecology Start: 10-07-2023 End: 10-07-2023 Patient encounter procedure Bhargavi Monique SLIVER LAP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: [facility] Comment on above: Nipple pain (Primary Dx); Ear pain, bilateral Start: 07-23-2023 Refill Terrell Husam SLIVER LAP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: Family [facility] [place] Comment on above: Refill Request Start: 07-23-2023 Refill Terrell Husam SLIVER LAP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: [facility] [place] Comment on above: Refill Request Start: 07-06-2023 End: 07-06-2023 Emergency department patient visit TERRELL AHMADI MD Facility:[facility] Start: 07-06-2023 End: 07-06-2023 Emergency department patient visit TERRELL AHMADI MD [facility] Start: 07-02-2023 End: 07-02-2023 Emergency department patient visit [facility] Work Phone: Start: 07-02-2023 End: 07-02-2023 Patient encounter procedure Bhargavi Monique SLIVER LAP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: [facility] Comment on above: Visual disturbance ( Primary Dx); Dizziness; Headache, unspecified headache type Start: 06-18-2023 Telephone encounter Ivelisse Nader stevens SLIVER LAP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: Family [facility] [place] Comment on above: Results (Labs ) Start: 06-17-2023 Telephone encounter Genie greer MD Work Phone: [facility] [place] Comment on above: Orders; Irregular Me nstrual Cycle Start: 06-16-2023 Telephone encounter [facility]er MD [facility] Comment on above: Patient Request Start: 06-12-2023 Telephone encounter Genie greer MD Work Phone: [facility] [place] Comment on above: Patient Question Start: 04-02-2023 Refill Terrell Cloud SLIVER LAP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: [facility] [place] Comment on above: Refill Request Start: 03-26-2023 Refill Genie hernandez MD Work Phone: Family [facility] [place] Comment on above: Refill Request Start: 01-03-2023 Refill Terrell Husam SLIVER LAP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: Family [facility] [place] Comment on above: Refill Request; Refi ll Request Start: 10-12-2022 End: 10-12-2022 Emergency department patient visit Onofre Everett [facility] Emergency Start: 10-01-2022 Telephone encounter Genie greer MD Work Phone: [facility] Comment on above: Patient Question Start: 09-30-2022 End: 09-30-2022 Patient encounter procedure Ruth Vallejo PA-C Work Phone: [facility] Comment on above: Acute UTI (Primary D x) Start: 09-06-2022 End: 09-06-2022 [facility] Start: 09-06-2022 End: 09-06-2022 Patient encounter procedure Marjorie Sanchez APRN.FIRE 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 Work Phone: [facility] Comment on above: Confusion (Primary D x) Start: 08-26-2022 End: 08-26-2022 Office outpatient visit 25 minutes Terrell Cloud APRN.FIRE 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 Work Phone: [facility] Comment on above: Hypokalemia (Primary Dx); Nausea and vomiting, unspecified vomiting type; Hospital discharge follow-up; Paresthesia; Hand pain, left Start: 08-22-2022 End: 08-22-2022 Emergency department patient visit Trixie Beard [facility] Emergency 14 Start: 07-29-2022 Refill Jolly Aguilar PA-C Work Phone: Gastroenterology Comment on above: Refill Request Start: 07-23-2022 Refill Terrell Cloud APRN.FIRE 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 Work Phone: [facility] Comment on above: Refill Request Start: 07-23-2022 Refill Terrell Cloud APRN.FIRE 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 Work Phone: [facility] Comment on above: Refill Request Start: 06-30-2022 End: 06-30-2022 [facility] Start: 05-08-2022 Refill Cori Ramesh APR N.FIRE 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 Work Phone: Gastroenterology Comment on above: Refill Request Start: 03-07-2022 End: 03-07-2022 [facility] Genie Jackson MD Work Phone: [facility] Comment on above: Recurrent major depr essive disorder, remission status unspecified (HCC) Start: 03-02-2022 End: 03-02-2022 Emergency department patient visit [facility] Start: 02-15-2022 Refill Cori Ramesh APR N.FIRE 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 Work Phone: Gastroenterology Comment on above: Refill Request Start: 02-12-2022 End: 02-12-2022 Patient encounter procedure Michelle Hayes APRN.FIRE 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 Work Phone: [facility] Comment on above: Frontal sinus pain ( Primary Dx); Left ear pain Start: 02-05-2022 End: 02-05-2022 Patient encounter procedure Ruth Reyes Chirpifypan PA-C Work Phone: [facility] Comment on above: Acute otitis media, left (Primary Dx) Start: 02-02-2022 End: 02-02-2022 Patient encounter procedure Ruth Reyes Chirpifypan PA-C Work Phone: [facility] Comment on above: Viral URI with cough (Primary Dx); Bacterial conjunctivitis Start: 12-24-2021 End: 12-24-2021 Subsequent hospital visit by physician Xr [facility] Work Phone: Radiology Comment on above: Left wrist pain [[id number] .[id number]] Start: 12-24-2021 End: 12-24-2021 Patient encounter procedure Ruth Reyes Athy PA-C Work Phone: [facility] Comment on above: Left wrist pain (Merlene azucena Dx) Start: 12-17-2021 Refill Cori Ramesh APR N.FIRE 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 Work Phone: Gastroenterology Comment on above: Refill Request Start: 12-16-2021 Refill Cori Ramesh APR N.FIRE 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 Work Phone: Gastroenterology Comment on above: Refill Request Start: 12-04-2021 Telephone encounter Genie greer MD Work Phone: [facility] Comment on above: Medication Question Start: 11-26-2021 End: 11-26-2021 Distance Health Genie Jackson MD Work Phone: [facility] [place] Comment on above: Recurrent major depr essive disorder, remission status unspecified (HCC) (Primary Dx) Refill Request Start: 09-25-2021 End: 09-25-2021 Telemedicine consultation with patient Cori Ramesh FIRE 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 Work Phone: [facility] Start: 09-25-2021 End: 09-25-2021 ambulatory Terrell Cloud APRN.FIRE 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 Work Phone: [facility] [place] Comment on above: Question Burping (Primary Dx) ; Gastroesophageal reflux disease, unspecified whether esophagitis present; Early satiety; GERD without esophagitis Start: 09-19-2021 Telephone encounter Genie greer MD Work Phone: [facility] [place] Comment on above: Referral Request Start: 09-17-2021 End: 09-17-2021 Patient encounter procedure Terrell Cloud APRN.FIRE 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 Work Phone: [facility] [place] Comment on above: Tonsil stone (Primar y Dx); Hypothyroidism, unspecified type Start: 08-23-2021 ambulatory Genie hernandez MD Work Phone: [facility] [place] Comment on above: Trying a medication again Start: 08-09-2021 Refill Genie hernandez MD Work Phone: [facility] [place] Comment on above: Refill Request Start: 10-14-2017 End: 10-14-2017 Ambulatory [facility] Start: 05-17-2017 End: 05-17-2017 Emergency department patient visit [facility] Facility:[facility] Start: 07-23-2016 End: 10-12-2017 Physical examination Bhargavi Monique APRN.FIRE 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 Work Phone: [facility] Procedures Date Procedure Procedure Detail Performing Clinician Start: 12-28-2024 Us preg uterus after 1st trimest 05/04 gestation Emmanuel Hess MD Work Phone: Start: 12-23-2024 Measurement of pH in vaginal fluid specimen using nitrazine yellow for detection of rupture of amniotic membrane Dr. Genie Jackson MD Work Phone: Comment on above: Amniotic fluid not p resent indicates No Rupture of FetalMembranes at time of specimen collection. Start: 12-23-2024 Urnls dip stick/tabl et reagent auto microscopy Dr. Genie Jackson MD Work Phone: Start: 11-19-[address] Genie Jackson MD Work Phone: Start: 10-26-2024 Us preg uterus after 1st trimest 1/1st gestation Elayne Maycol SLIVER LAP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: Start: 10-05-2024 Us preg uterus after 1st trimest 1/ gestation Emmanuel Hess MD Work Phone: Start: 08-31-2024 Us preg uterus after 1st trimest 1/1st gestation Elayne Kosse SLIVER LAP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: Start: 08-29-2024 Antibody screen ELAYNE HILLMAN Comment on above: Order Comment: Speci men Type: BLOOD SPECIMENOrdering Facility: [facility] Address: [address] [place] [address] Performed By: #### T SPN ####CC [facility] BLOOD BANKCLIA [id number] [address] STATES OF ART Start: 08-01-2024 Us uterus l imited 1/> fetuses Elayne Kosse SLIVER LAP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: Start: 07-20-2024 UA DIP,URINE HCG (POC) Roxana Fry SLIVER LAP 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.CNM Work Phone: Start: 04-14-2024 STREP A MOLECULAR (POC) Bhargavi Monique SLIVER LAP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: Start: 01-22-2024 Adult depression scr eening assessment Ivelisse Ng SLIVER LAP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: Start: 11-19-2023 Us pelvic nonobstetr [...] Treatment Date Care Activity Detail Author Start: 12-28-2034 Urine microalbumin profile DTaP,Tdap,Td Vaccine (8 - Td or Tdap) [facility] Start: 11-09-2026 Screening for malignant neoplasm of cervix Cervical Cancer Screening [facility] Start: 11-29-2025 Annual PCP Team Chronic Disease Visit Annual PCP Team Chronic Disease Visit [facility] Start: 09-08-2025 Annual PCP Team Chronic Disease Visit Annual PCP Team Chronic Disease Visit [facility] Start: 08-04-2025 Annual PCP Team Chronic Disease Visit Annual PCP Team Chronic Disease Visit [facility] Start: 06-15-2025 Annual PCP Team Chronic Disease Visit Annual PCP Team Chronic Disease Visit [facility] Start: 05-13-2025 Annual PCP Team Chronic Disease Visit Annual PCP Team Chronic Disease Visit [facility] Start: 02-20-2025 End: 02-20-2025 Patient encounter procedure 02/20/2025 10:00 AM EDT Office Visit Endocrinology [address] [place] [id number] Mana Oseguera MD [address] [place] [id number] Hypothyroidism, unspecified type [E03.9] Endocrinology Comment on above: Hypothyroidism, unsp ecified type [E03.9] Start: 02-07-2025 End: 02-07-2025 Patient encounter procedure 02/07/2025 11:20 AM EDT Routine Office Visit OB/Gynecology [address] [place] [address] Dhara Sanchez MD [address] [place] [address] OB OB/Gynecology Comment on above: OB Start: 01-29-2025 End: 04-30-2025 CBC W Auto Differential panel - Blood COMPLETE BLOOD COUNT AND DIFFERENTIAL Lab Routine Anemia complicating , third trimester (HCC) Expected: 01/29/2025, Expires: 04/30/2025 [facility] Work Phone: Comment on above: Expected: 01/29/2025 , Expires: 04/30/2025 Start: 01-24-2025 End: 01-24-2025 Patient encounter procedure Endocrinology Comment on above: Hypothyroidism, unsp ecified type [E03.9] Supervision of other high risk pregnancies, second trimester (HCC) [O09.892] OB Start: 01-21-2025 Annual PCP Team Chronic Disease Visit Annual PCP Team Chronic Disease Visit [facility] Start: 01-21-2025 Anxiety Screening Anxiety Screening [facility] Start: 01-21-2025 Depression Screening Depression Scre ening [facility] Start: 01-19-2025 End: 01-19-2025 Patient encounter procedure 01/19/2025 11:00 AM EDT Routine Office Visit OB/Gynecology [address] [place] [address] NON-STRESS TEST ONLY OB/Gynecology Comment on above: NON-STRESS HAI T ONLY Start: 01-14-2025 RSV Vaccine (1 - Ris k 1-dose series) RSV Vaccine (1 - Risk 1-dose series) [facility] Start: 01-12-2025 End: 01-12-2025 Patient encounter procedure 01/12/2025 11:10 AM EDT Routine Office Visit OB/Gynecology [address] [place] [place], [place] [address] Ximena Hartman MD [address] [place] [address] OB OB/Gynecology Comment on above: OB Start: 01-02-2025 Influenza vaccination [facility] Start: 12-28-2024 End: 03-29-2025 Thyrotropin [Units/volume] in Serum or Plasma [facility] Work Phone: Comment on above: Expected: 12/28/2024 , Expires: 03/29/2025 Start: 12-28-2024 End: 12-28-2024 Patient encounter procedure Maternal Medicine Comment on above: 28 weeks US US/OB Start: 12-26-2024 End: 12-26-2024 Patient encounter procedure Endocrinology Comment on above: Supervision of other high risk pregnancies, second trimester (HCC) [O09.892] Hypothyroidism, unsp ecified type [E03.9] Start: 12-23-2024 [facility] Start: 12-23-2024 Nonstress test [facility] Start: 12-23-2024 Obstetric monitoring [facility] Start: 12-23-2024 Vital signs measurements [facility] Start: 12-23-2024 [facility] Start: 12-23-2024 Bacteria identified in Urine by Culture Urine Culture [facility] Start: 12-02-2024 End: 12-02-2024 ambulatory [facility] Start: 11-29-2024 End: 02-28-2025 ANEMIA REFLEX PANEL ANEMIA REFLEX PANEL Lab Routine Expected: 11/29/2024, Expires: 02/28/2025 [facility] Comment on above: Expected: 11/29/2024 , Expires: 02/28/2025 Start: 11-29-2024 End: 11-29-2025 GESTATIONAL GLUCOSE SCREEN, 1-HOUR, 50 GRAM, NON-FASTING GESTATIONAL GLUCOSE SCREEN, 1-HOUR, 50 GRAM, NON-FASTING Lab Routine Screening for diabetes mellitus Expected: 11/29/2024, Expires: 11/29/2025 [facility] Work Phone: Comment on above: Expected: 11/29/2024 , Expires: 11/29/2025 Start: 11-29-2024 End: 11-29-2025 SYPHILIS TREPONEMAL W/REFLEX SYPHILIS TREPONEMAL W/REFLEX Lab Routine Expected: 11/29/2024, Expires: 11/29/2025 [facility] Comment on above: Expected: 11/29/2024 , Expires: 11/29/2025 Start: 11-29-2024 End: 11-29-2024 Patient encounter procedure 11/29/2024 10:15 AM EDT Routine Office Visit OB/Gynecology [address] [place] [address] Elayne Severino APRN.FIRE 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 [address] [place] [address] OB-Needs to schedule 28 week ultrasound - moved from JG per RR OB/Gynecology Comment on above: OB-Needs to schedule 28 week ultrasound - moved from JG per RR Start: 11-29-2024 End: 11-29-2024 ambulatory 11/29/2024 8:20 AM EDT [facility] Medicine Jennifer [address] [place] [address] Olive Rendon SLIVER LAP 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 [address] [place] [address] discuss increasing depression medication (40min per CH) [facility] Comment on above: discuss increasing d epression medication (40min per CH) Start: 11-23-2024 End: 11-23-2024 Patient encounter procedure 11/23/2024 10:40 AM EDT Routine Office Visit OB/Gynecology [address] [place] [address] Joyce Restrepo MD [address] [place] [address] OB-Needs to schedule 28 week ultrasound OB/Gynecology Comment on above: OB-Needs to schedule 28 week ultrasound Start: 11-22-2024 End: 11-22-2024 Patient encounter procedure 11/22/2024 8:00 AM EDT Office Visit Endocrinology [address] [place] [address] Mana Oseguera MD [address] [place] [address] Supervision of other high risk pregnancies, second trimester (HCC) [O09.892] Endocrinology Comment on above: Supervision of other high risk pregnancies, second trimester (HCC) [O09.892] Start: 11-20-2024 Patient discharge [facility] Start: 11-19-2024 Nonstress test [facility] Start: 11-19-2024 Obstetric monitoring [facility] Start: 11-19-2024 Vital signs measurements [facility] Start: 11-19-2024 [facility] Start: 10-26-2024 End: 10-26-2024 Patient encounter procedure Maternal Medicine Comment on above: Anatomy Scan OB Routine Start: 10-05-2024 End: 10-05-2024 Patient encounter procedure 10/05/2024 11:00 AM EDT Routine Office Visit Maternal Medicine [facility] [address] [place] [address] growth Maternal Medicine [facility] Comment on above: growth Start: 09-29-2024 End: 09-29-2024 Patient encounter procedure 09/29/2024 11:10 AM EDT Routine Office Visit OB/Gynecology [address] [place] [address] Emmanuel Hess MD [address] [place] [address] OB Routine OB/Gynecology Comment on above: OB Routine Start: 08-31-2024 End: 08-31-2024 Patient encounter procedure Maternal Medicine Comment on above: Nuchal OB Start: 08-08-2024 End: 08-08-2024 ambulatory 08/08/2024 1:00 PM EDT Results Only [facility] [address] [place] [address] [facility] Start: 08-04-2024 End: 08-04-2024 ambulatory 08/04/2024 11:20 AM EDT [facility] [address] [place] [address] Genie Jackson MD [address] [place] [address] Lowering my buspar Family Medicine [facility] Comment on above: Lowering my buspar Start: 08-03-2024 End: 08-03-2024 ambulatory 08/03/2024 1:00 PM EDT Results Only Jennifer [facility] [address] [place] [address] Jennifer [facility] Start: 08-01-2024 End: 10-31-2024 ANEMIA REFLEX PANEL ANEMIA REFLEX PANEL Lab Routine History of hemorrhage 8 weeks gestation of Expected: 08/01/2024, Expires: 10/31/2024 [facility] Work Phone: Comment on above: Expected: 08/01/2024 , Expires: 10/31/2024 Start: 08-01-2024 End: 10-31-2024 Comprehensive metabolic 2000 panel - Serum or Plasma COMPREHENSIVE METABOLIC PANEL Lab Routine 8 weeks gestation of Hx of preeclampsia, prior , currently Expected: 08/01/2024, Expires: 10/31/2024 [facility] Comment on above: Expected: 08/01/2024 , Expires: 10/31/2024 Start: 08-01-2024 End: 10-31-2024 Hemoglobin A1c in Blood HEMOGLOBIN A1C Lab Routine History of hemorrhage 8 weeks gestation of Expected: 08/01/2024, Expires: 10/31/2024 [facility] Comment on above: Expected: 08/01/2024 , Expires: 10/31/2024 Start: 08-01-2024 End: 10-31-2024 Hepatitis B virus surface Ag [Presence] in Serum HEPATITIS B SURFACE ANTIGEN Lab Routine History of hemorrhage Screen for STD (sexually transmitted disease) 8 weeks gestation of Expected: 08/01/2024, Expires: 10/31/2024 [facility] Comment on above: Expected: 08/01/2024 , Expires: 10/31/2024 Start: 08-01-2024 End: 10-31-2024 Hepatitis C virus Ab [Presence] in Serum HEPATITIS C ANTIBODY IA WITH CONFIRMATION Lab Routine History of hemorrhage Screen for STD (sexually transmitted disease) 8 weeks gestation of Expected: 08/01/2024, Expires: 10/31/2024 [facility] Comment on above: Expected: 08/01/2024 , Expires: 10/31/2024 Start: 08-01-2024 End: 10-31-2024 HIV 1+2 Ab [Presence] in Serum or Plasma by Immunoassay HIV 1/2 COMBO WITH REFLEX TO DIFFERENTIATION Lab Routine History of hemorrhage Screen for STD (sexually transmitted disease) 8 weeks gestation of Expected: 08/01/2024, Expires: 10/31/2024 [facility] Comment on above: Expected: 08/01/2024 , Expires: 10/31/2024 Start: 08-01-2024 End: 08-01-2025 OBSTETRIC ULTRASOUND WHI OBSTETRIC ULTRASOUND WHI Anc Imaging Routine 8 weeks gestation of Expected: 08/01/2024, Expires: 08/01/2025 [facility] Comment on above: Expected: 08/01/2024 , Expires: 08/01/2025 Start: 08-01-2024 End: 10-31-2024 Protein/Creatinine [Mass Ratio] in Urine PROTEIN / CREATININE RATIO Lab Routine 8 weeks gestation of Hx of preeclampsia, prior , currently Expected: 08/01/2024, Expires: 10/31/2024 [facility] Comment on above: Expected: 08/01/2024 , Expires: 10/31/2024 Start: 08-01-2024 End: 10-31-2024 RUBELLA IGG ANTIBODY RUBELLA IGG ANTIBODY Lab Routine History of hemorrhage 8 weeks gestation of Expected: 08/01/2024, Expires: 10/31/2024 [facility] Comment on above: Expected: 08/01/2024 , Expires: 10/31/2024 Start: 08-01-2024 End: 10-31-2024 SYPHILIS TREPONEMAL W/REFLEX SYPHILIS TREPONEMAL W/REFLEX Lab Routine History of hemorrhage Screen for STD (sexually transmitted disease) 8 weeks gestation of Expected: 08/01/2024, Expires: 10/31/2024 [facility] Comment on above: Expected: 08/01/2024 , Expires: 10/31/2024 Start: 08-01-2024 End: 10-31-2024 Thyrotropin [Units/volume] in Serum or Plasma THYROID STIMULATING HORMONE Lab Routine 8 weeks gestation of Hypothyroidism, unspecified type Expected: 08/01/2024, Expires: 10/31/2024 [facility] Comment on above: Expected: 08/01/2024 , Expires: 10/31/2024 Start: 08-01-2024 End: 10-31-2024 TYPE + SCREEN TYPE + SCREEN Blood Bank Routine History of hemorrhage 8 weeks gestation of Expected: 08/01/2024, Expires: 10/31/2024 [facility] Comment on above: Expected: 08/01/2024 , Expires: 10/31/2024 Start: 08-01-2024 End: 08-01-2024 Patient encounter procedure 08/01/2024 8:15 AM EDT Initial Office Visit OB/Gynecology [address] [facility] [place] [address] Elayne Severino APRN.FIRE 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 [address] [facility] [place] [address] NOB LMP 2 OB/Gynecology Comment on above: NOB LMP 2 Start: 07-22-2024 End: 07-22-2024 ambulatory 07/22/2024 4:00 PM EDT [facility] [address] [facility] [place] [address] Genie Jackson MD [address] [facility] [address] Medication options for Linzess during pregancy. [facility] [place] Comment on above: Medication options f or Linzess during pregancy. Start: 06-27-2024 End: 06-27-2024 ambulatory 06/27/2024 11:00 AM EST [facility] [address] [facility] [place] [address] Ivelisse Ng APRN.FIRE 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 [address] [facility] [address] 2 week f/u medication change Family Medicine [facility] Comment on above: 2 week f/u medicatio n change Start: 01-22-2024 End: 01-22-2024 Patient encounter procedure 01/22/2024 10:00 AM EDT Office Visit Family Medicine Jennifer [address] [place] [address] Ivelisse Ng, SLIVER LAP 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 [address] [place] [address] medication refills needed/Wellness visit needed Family Medicine [facility] Comment on above: medication refills n eeded/Wellness visit needed Start: 01-03-2024 Covid-19 Vaccine ( season) Covid-19 Vaccine ( season) [facility] Start: 01-03-2024 Covid-19 Vaccine () Covid-19 Vaccine () [facility] Start: 01-03-2024 Influenza vaccination [facility] Start: 12-24-2023 End: 12-24-2023 Patient encounter procedure 12/24/2023 10:40 AM EDT Office Visit Family Medicine Jennifer [address] [place] [address] Ivelisse Ng, SLIVER LAP 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 [address] [place] [address] yearly [facility] [place] Comment on above: yearly Start: 11-24-2023 End: 11-24-2023 ambulatory 11/24/2023 4:30 PM EDT [facility] OB/Gynecology [address] [place] [address] Elayne Severino, SLIVER LAP 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 [address] [place] [address] Discuss ultrasound results OB/Gynecology Comment on above: Discuss ultrasound r esults Start: 11-19-2023 End: 11-19-2023 ambulatory 11/19/2023 1:30 PM EDT Procedure OB/Gynecology [address] [place] [address] Irregular menses [N92.6] OB/Gynecology Comment on above: Irregular menses [N9 2.6] Start: 11-04-2023 End: 02-03-2024 DHEA-S BLD DHEA-S BLD Lab Routine Irregular menses Expected: 11/04/2023, Expires: 02/03/2024 [facility] Comment on above: Expected: 11/04/2023 , Expires: 02/03/2024 Start: 11-04-2023 End: 02-03-2024 Estradiol (E2) [Mass/volume] in Serum or Plasma ESTRADIOL-17B BLD Lab Routine Irregular menses Expected: 11/04/2023, Expires: 02/03/2024 [facility] Comment on above: Expected: 11/04/2023 , Expires: 02/03/2024 Start: 11-04-2023 End: 02-03-2024 Follitropin [Units/volume] in Serum or Plasma FOLLICLE STIMULATING HORMONE Lab Routine Irregular menses Expected: 11/04/2023, Expires: 02/03/2024 [facility] Comment on above: Expected: 11/04/2023 , Expires: 02/03/2024 Start: 11-04-2023 End: 02-03-2024 Hemoglobin A1c in Blood HEMOGLOBIN A1C Lab Routine Irregular menses Class II obesity Expected: 11/04/2023, Expires: 02/03/2024 [facility] Comment on above: Expected: 11/04/2023 , Expires: 02/03/2024 Start: 11-04-2023 End: 02-03-2024 Lutropin [Units/volume] in Serum or Plasma LUTEINIZING HORMONE Lab Routine Irregular menses Expected: 11/04/2023, Expires: 02/03/2024 [facility] Comment on above: Expected: 11/04/2023 , Expires: 02/03/2024 Start: 11-04-2023 End: 02-03-2024 Progesterone [Mass/volume] in Serum or Plasma PROGESTERONE Lab Routine Irregular menses Expected: 11/04/2023, Expires: 02/03/2024 [facility] Comment on above: Expected: 11/04/2023 , Expires: 02/03/2024 Start: 11-04-2023 End: 02-03-2024 Thyrotropin [Units/volume] in Serum or Plasma THYROID STIMULATING HORMONE Lab Routine Irregular menses Acquired hypothyroidism Class II obesity Expected: 11/04/2023, Expires: 02/03/2024 [facility] Work Phone: Comment on above: Expected: 11/04/2023 , Expires: 02/03/2024 Start: 11-04-2023 End: 11-03-2024 US Pelvis PELVIC US WHI Anc Imaging Routine Irregular menses Class II obesity Menorrhagia with irregular cycle Dysmenorrhea Expected: 11/04/2023, Expires: 11/03/2024 [facility] Comment on above: Expected: 11/04/2023 , Expires: 11/03/2024 Start: 08-27-2023 ANNUAL PCP TEAM CHRONIC DISEASE VISIT ANNUAL PCP TEAM CHRONIC DISEASE VISIT [facility] Start: 07-02-2023 [facility] Start: 06-17-2023 End: 09-16-2023 CBC W Auto Differential panel - Blood [facility] Work Phone: Comment on above: Expected: 06/17/2023 , Expires: 09/16/2023 Start: 06-17-2023 End: 09-16-2023 Choriogonadotropin.bet a subunit [Units/volume] in Serum or Plasma [facility] Work Phone: Comment on above: Expected: 06/17/2023 , Expires: 09/16/2023 Start: 06-17-2023 End: 09-16-2023 Comprehensive metabolic 2000 panel - Serum or Plasma [facility] Work Phone: Comment on above: Expected: 06/17/2023 , Expires: 09/16/2023 Start: 06-17-2023 End: 09-16-2023 Ferritin [Mass/volume] in Serum or Plasma [facility] Work Phone: Comment on above: Expected: 06/17/2023 , Expires: 09/16/2023 Start: 06-17-2023 End: 09-16-2023 Iron and Iron binding capacity panel - Serum or Plasma [facility] Work Phone: Comment on above: Expected: 06/17/2023 , Expires: 09/16/2023 Start: 05-04-2023 Behavioral Health Screening Behavioral Health Screening [facility] Start: 05-04-2023 Depression Assessment Depression Ass [facility] Start: 05-04-2023 zzBehavioral Health Screening zzBehavioral Health Screening [facility] Start: 03-07-2023 ANNUAL PCP TEAM CHRONIC DISEASE VISIT ANNUAL PCP TEAM CHRONIC DISEASE VISIT [facility] Start: 02-12-2023 ANNUAL PCP TEAM CHRONIC DISEASE VISIT ANNUAL PCP TEAM CHRONIC DISEASE VISIT [facility] Start: 01-02-2023 Covid-19 Vaccine () Covid-19 Vaccine () [facility] Start: 01-02-2023 Influenza vaccination C [facility] Start: 12-21-2022 PAP TESTING PAP TESTING [facility] Start: 12-21-2022 Screening for malignant neoplasm of cervix [facility] Start: 11-26-2022 ANNUAL PCP TEAM CHRONIC DISEASE VISIT ANNUAL PCP TEAM CHRONIC DISEASE VISIT [facility] Start: 09-17-2022 ANNUAL PCP TEAM CHRONIC DISEASE VISIT ANNUAL PCP TEAM CHRONIC DISEASE VISIT [facility] Start: 08-26-2022 End: 10-26-2022 POTASSIUM BLD POTASSIUM BLD Lab Routine Hypokalemia Expected: 08/26/2022, Expires: 10/26/2022 [facility] Work Phone: Comment on above: Expected: 08/26/2022 , Expires: 10/26/2022 Start: 06-07-2022 ANNUAL PCP TEAM CHRONIC DISEASE VISIT ANNUAL PCP TEAM CHRONIC DISEASE VISIT [facility] Start: 05-04-2022 DEPRESSION ASSESSMENT DEPRESSION ASS ESSMENT [facility] Start: 04-05-2022 Adult depression screening assessment DEPRESSION SCREENING [facility] Start: 02-02-2022 End: 02-16-2022 Influenza virus A and B RNA and SARS-CoV-2 (COVID-19) N gene panel - Respiratory specimen by RODERICK with probe detection COVID WITH FLUA+B, ROUTINE Microbiology Routine Viral URI with cough Expected: 02/02/2022, Expires: 02/16/2022 [facility] Work Phone: Comment on above: Expected: 02/02/2022 , Expires: 02/16/2022 Start: 01-02-2022 Influenza vaccination C [facility] Start: 10-01-2021 End: 12-01-2021 Pyridoxine [Mass/volume] in Serum or Plasma VITAMIN B6/PYRIDOXIN Lab Routine Fatigue, unspecified type Expected: 10/01/2021, Expires: 12/01/2021 [facility] Work Phone: Comment on above: Expected: 10/01/2021 , Expires: 12/01/2021 Start: 10-01-2021 End: 12-01-2021 VITAMIN B12 BLOOD VITAMIN B12 BLOOD Lab Routine Fatigue, unspecified type Expected: 10/01/2021, Expires: 12/01/2021 [facility] Work Phone: Comment on above: Expected: 10/01/2021 , Expires: 12/01/2021 Start: 10-01-2021 End: 12-01-2021 VITAMIN D 25 HYDROXY VITAMIN D 25 HYDROXY Lab Routine Fatigue, unspecified type Expected: 10/01/2021, Expires: 12/01/2021 [facility] Work Phone: Comment on above: Expected: 10/01/2021 , Expires: 12/01/2021 Start: 07-25-2021 COVID-19 VACCINE (2 - Pfizer series) COVID-19 VACCINE (2 - Pfizer series) [facility] Start: 06-20-2021 COVID-19 VACCINE (2 - Pfizer 3-dose series) COVID-19 VACCINE (2 - Pfizer 3-dose series) [facility] Start: 06-20-2021 COVID-19 VACCINE (2 - Pfizer series) COVID-19 VACCINE (2 - Pfizer series) [facility] Start: 05-04-2021 DEPRESSION ASSESSMENT DEPRESSION ASS ESSMENT [facility] Start: 02-07-2019 Urine microalbumin profile [facility] Start: 2017 ONE PNEUMOVAX PRIOR TO AGE 65 ONE PNEUMOVAX PRIOR TO AGE 65 [facility] Start: 12-20-2016 CHLAMYDIA SCREENING () CHLAMYDIA SCREENING (18-24) [facility] Start: 12-20-2016 GC (GONORRHEA) SCREENING (18-24) GC (GONORRHEA) SCREENING (18-24) [facility] Start: 02-01-2016 Anxiety Screening Anxiety Screening [facility] Start: 02-01-2016 Depression Screening Depression Scre ening [facility] Start: 2014 Meningococcal B Vaccine: Consider Based On Risk (1 of 2 - Patient Seeks Protection) Meningococcal B Vaccine: Consider Based On Risk (1 of 2 - Patient Seeks Protection) [facility] Start: 02-01-2012 PEDS TO ADULT TRANSITION ANNUAL ASSESSMENT PEDS TO ADULT TRANSITION ANNUAL ASSESSMENT [facility] Start: 2010 PEDS TO ADULT TRANSITION INITIAL DISCUSSION PEDS TO ADULT TRANSITION INITIAL DISCUSSION [facility] Start: 02-01-2008 MENINGOCOCCAL B: Consider based on risk (1 of 2 - Risk Bexsero 2-dose series) MENINGOCOCCAL B: Consider based on risk (1 of 2 - Risk Bexsero 2-dose series) [facility] Start: 02-01-2004 PNEUMOCOCCAL (1 - PCV) PNEUMOCOCCAL (1 - PCV) [facility] Bacteria identified in Urine by Culture URINE CULTURE Microbiology Routine Acute UTI 09/30/2022 12:[address] [facility] Work Phone: Bacteria identified in Urine by Culture BACTERIAL CULTURE, URINE Microbiology Routine History of hemorrhage 8 weeks gestation of 08/01/2024 9:47 AM T [facility] Chlamydia trachomatis+Neisseria gonorrhoeae DNA [Presence] in Unspecified specimen by RODERICK with probe detection GONORRHEA/CHLAMYDIA NAAT Lab Routine History of hemorrhage Screen for STD (sexually transmitted disease) 8 weeks gestation of 08/01/2024 9:47 AM [facility] Chlamydia trachomatis+Neisseria gonorrhoeae DNA [Presence] in Unspecified specimen by RODERICK with probe detection GONORRHEA/CHLAMYDIA NAAT Lab Routine Supervision of other high risk pregnancies, second trimester (HCC) 16 weeks gestation of (HCC) Trichomoniasis Screen for STD (sexually transmitted disease) 09/29/2024 11:48 AM [facility] End: 08-27-2023 EMG(NEURO/NI) EMG(NEURO/NI) EMG Routine Paresthesia Hand pain, left 1 Occurrences starting 08/26/2022 until 08/27/2023 [facility] Work Phone: Comment on above: 1 Occurrences starti ng 08/26/2022 until 08/27/2023 End: 03-16-2025 nonstress test NON-STRESS TEST Procedures Routine Anemia during in third trimester ([facility]) Obesity in ([facility]) Supervision of high risk in third trimester ([facility]) 31 weeks gestation of ([facility]) 8 Occurrences starting 01/12/2025 until 03/16/2025 [facility] Work Phone: Comment on above: 8 Occurrences starti ng 01/12/2025 until 03/16/2025 End: 04-17-2025 OBSTETRIC ULTRASOUND WHI OBSTETRIC ULTRASOUND WHI Anc Imaging Routine Supervision of other high risk pregnancies, second trimester ([facility]) Hx of preeclampsia, prior , currently ([facility]) Obesity in ([facility]) Hypothyroidism, unspecified type Once per month for 6 Occurrences starting 09/29/2024 until 04/17/2025 [facility] Work Phone: Comment on above: Once per month for 6 Occurrences starting 09/29/2024 until 04/17/2025 PAP TEST PAP TEST Lab Yari fitzpatrick Encounter for gynecological examination (general) (routine) without abnormal findings Screening for cervical cancer Encounter for screening for human papillomavirus (HPV) 11/10/2023 3:[address] [facility] Work Phone: Patient Education [facility] Work Phone: Patient referral [facility] Work Phone: Protein [Mass/time] in 24 hour Urine PROTEIN, 24 HOUR URINE Lab Routine Proteinuria complicating in second trimester ([facility]) 11/21/2024 8:[address] [facility] Work Phone: End: 08-31-2025 Thyrotropin [Units/volume] in Serum or Plasma THYROID STIMULATING HORMONE Lab Routine Hypothyroidism, unspecified type Once per month for 8 Occurrences starting 08/31/2024 until 08/31/2025 [facility] Comment on above: Once per month for 8 Occurrences starting 08/31/2024 until 08/31/2025 End: 08-31-2025 Thyroxine (T4) free [Mass/volume] in Serum or Plasma T4 FREE/FREE THYROXINE Lab Routine Hypothyroidism, unspecified type Once per month for 8 Occurrences starting 08/31/2024 until 08/31/2025 [facility] Work Phone: Comment on above: Once per month for 8 Occurrences starting 08/31/2024 until 08/31/2025 TRICHOMONAS VAGINALI S NAAT TRICHOMONAS VAGINALIS NAAT Lab Routine Screen for STD (sexually transmitted disease) 8 weeks gestation of 08/01/2024 9:47 AM EDT [facility] TRICHOMONAS VAGINALI S NAAT TRICHOMONAS VAGINALIS NAAT Lab Routine Supervision of other high risk pregnancies, second trimester (HCC) 16 weeks gestation of (HCC) Trichomoniasis Screen for STD (sexually transmitted disease) 09/29/2024 11:48 AM EDT [facility] Urine culture [facility] Immunizations Immunization Date Immunization Notes Care Provider Fa [facility] 12-28-2024 tetanus toxoid, redu george diphtheria toxoid, and acellular pertussis vaccine, adsorbed [facility] 05-30-2021 COVID-19 original vaccine, age 12+ yr, monovalent (PFIZER-BIONTECH - MINOR TOP) [facility] 05-30-2021 COVID-19 vaccine, ag e 12+ yr (PFIZER-BIONTECH - PURPLE TOP) Genie Jackson MD Work Phone: [facility] 07-23-2016 influenza virus vacc ine, unspecified formulation Terrell Cloud APRN.CNP Work Phone: [facility] 12-05-2009 human papilloma viru s vaccine, quadrivalent Genie Jackson MD Work Phone: [facility] Work Phone: 08-01-2009 human papilloma viru s vaccine, quadrivalent Genie Jackson MD Work Phone: [facility] Work Phone: 02-07-2009 human papilloma viru s vaccine, quadrivalent Genie Jackson MD Work Phone: [facility] Work Phone: 02-07-2009 meningococcal polysaccharide vaccine (MPSV4) Ivelisse Ng [employer]IVER LAP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: [facility] 02-07-2009 Meningococcal, MCV4, unspecified conjugate formulation(groups A, C, Y and W-135) Genie Jackson MD Work Phone: [facility] Work Phone: 02-07-2009 tetanus toxoid, redu george diphtheria toxoid, and acellular pertussis vaccine, adsorbed Genie Jackson MD Work Phone: [facility] Work Phone: 10-11-2003 diphtheria, tetanus toxoids and acellular pertussis vaccine Genie Jackson MD Work Phone: [facility] Work Phone: 10-11-2003 poliovirus vaccine, inactivated Genie Jackson MD Work Phone: [facility] Work Phone: 08-03-2003 measles, mumps and rubella virus vaccine Genie Jackson MD Work Phone: [facility] Work Phone: 12-20-1999 diphtheria, tetanus toxoids and acellular pertussis vaccine Genie Jackson MD Work Phone: [facility] Work Phone: 12-20-1999 haemophilus influenz ae type b vaccine, HbOC conjugate Genie Jackson MD Work Phone: [facility] Work Phone: 12-20-1999 haemophilus influenz ae type b vaccine, PRP-OMP conjugate Ivelisse Ng SLIVER LAP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: [facility] 03-20-1999 diphtheria, tetanus toxoids and acellular pertussis vaccine Genie Jackson MD Work Phone: [facility] Work Phone: 03-20-1999 haemophilus influenz ae type b vaccine, HbOC conjugate Genie Jackson MD Work Phone: [facility] Work Phone: 03-20-1999 haemophilus influenz ae type b vaccine, PRP-OMP conjugate Ivelisse Ng SLIVER LAP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: [facility] 03-20-1999 measles, mumps and rubella virus vaccine Genie Jackson MD Work Phone: [facility] Work Phone: 03-20-1999 poliovirus vaccine, inactivated Genie Jackson MD Work Phone: [facility] Work Phone: 1998 hepatitis B vaccine, pediatric or pediatric/adolescent dosage Genie Jackson MD Work Phone: [facility] Work Phone: 1998 diphtheria, tetanus toxoids and acellular pertussis vaccine Genie Jackson MD Work Phone: [facility] Work Phone: 1998 haemophilus influenz ae type b vaccine, HbOC conjugate Genie Jackson MD Work Phone: [facility] Work Phone: 1998 haemophilus influenz ae type b vaccine, PRP-OMP conjugate Ivelisse Ng APRN.FIRE 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 Work Phone: [facility] 1998 poliovirus vaccine, inactivated Genie Jackson MD Work Phone: [facility] Work Phone: 1998 diphtheria, tetanus toxoids and acellular pertussis vaccine Genie Jackson MD Work Phone: [facility] Work Phone: 1998 haemophilus influenz ae type b vaccine, HbOC conjugate Genie Jackson MD Work Phone: [facility] Work Phone: 1998 haemophilus influenz ae type b vaccine, PRP-OMP conjugate Ivelisse Ng SLIVER LAP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: [facility] 1998 poliovirus vaccine, inactivated Genie Jakcson MD Work Phone: [facility] Work Phone: 1998 hepatitis B vaccine, pediatric or pediatric/adolescent dosage Genie Jackson MD Work Phone: [facility] Work Phone: 1998 hepatitis B vaccine, pediatric or pediatric/adolescent dosage Genie Jackson MD Work Phone: [facility] Work Phone: Payers Date Payer Category Payer Self-pay [id number] 2023 Unknown [id number] 2022 Unknown 2017 Private Health Insurance 2017 Private Health Insurance AETNA A ETNA CHOICE POS II [id number] 2017-Present [phone] [address] [place] [address] POS [id number] 2017 Unknown [employer] [id number] 2017 Unknown [id number] 2016 Medicaid [employer] A[employer]ICA[employer] [id number] 2016-Present [phone] [address] [place] [address] Medicaid [id number] 2016 Medicaid [id number] 1998 Unknown [id number] 1998 Unknown [id number] Private Health Insurance [id number] Unknown [id number] Unknown [id number] Social History Date Type Detail Facility Start: 04-14-2014 End: 07-02-2023 Tobacco smoking status NHIS Smokes tobacco daily [facility] Start: 05-04-2012 End: 08-20-2020 History of tobacco use Cigarette Smoker [facility] Start: 04-14-2014 End: 06-15-2024 Cigarettes smoked current (pack per day) - Reported 0.5 [facility] Start: 04-14-2014 End: 07-25-2024 Tobacco use and exposure Smokeless tobacco non-user [facility] Start: 05-09-2021 End: 07-20-2024 Alcohol intake Current non-drinker of alcohol (finding) [facility] Start: 01-09-2021 End: 08-25-2022 History SDOH Alcohol Frequency 1 [facility] Start: 01-09-2021 History SDOH Social Connections Phone 3 [facility] Start: 01-09-2021 End: 08-25-2022 History SDOH Social Connections Membership 2 [facility] Start: 01-09-2021 History SDOH Social Connections Living 8 [facility] Start: 01-09-2021 History SDOH Physica l Activity DPW 0 [facility] Start: 01-09-2021 End: 08-25-2022 History SDOH Stress 5 [facility] Start: 01-09-2021 Education 11 [facility] Start: 07-30-2020 End: 12-24-2021 Tobacco Comment Vapes [facility] Start: 1998 Sex Assigned At Not on file [facility] Start: 09-07-2021 End: 12-24-2021 Exposure to SARS-CoV-2 (event) Not sure [facility] Start: 09-25-2021 End: 07-25-2024 Tobacco smoking status NHIS Ex-smoker [facility] Work Phone: Start: 05-04-2012 End: 08-20-2020 History of tobacco use Current smoker [facility] Work Phone: Start: 03-02-2022 End: 07-02-2023 Tobacco smoking status NHIS Unknown if ever smoked [facility] Start: 09-27-2017 None [facility] Start: 09-27-2017 Friends [facility] Start: 2000 Sex Assigned At Female W [facility] Start: 08-25-2022 History SDOH Social Connections Get Together 4 [facility] Start: 08-25-2022 History SDOH Social Connections Living 7 [facility] Start: 08-25-2022 History SDOH Physica l Activity MPS 15 [facility] Start: 08-25-2022 End: 06-15-2024 Social connection and isolation panel [facility] Do you belong to any clubs or organizations such as restorationist groups, unions, fraternal or athletic groups, or school groups? No [facility] Are you now , , , , never or living with a partner? Never [facility] How often to you hav e a drink containing alcohol? Monthly or less [facility] How many standard dr inks containing alcohol do you have on a typical day? 1 or 2 [facility] How often do you hav e 6 or more drinks on 1 occasion? Never [facility] Start: 04-04-2012 How hard is it for y ou to pay for the very basics like food, housing, medical care, and heating Not hard at all [facility] Do you feel stress - tense, restless, nervous, or anxious, or unable to sleep at night because your mind is troubled all the time - these days [OSQ] Very much [facility] (I/We) worried whemichelle er (my/our) food would run out before (I/we) got money to buy more. Never true [facility] Tobacco smoking status No Smokin g Status Entered [facility] Are you now , , , , never or living with a partner? Living with partner [facility] Start: 08-01-2024 End: 01-12-2025 Alcoholic beverage intake Ex-drinker (finding) [facility] Start: 07-25-2024 Alcohol Comment [facility] Start: 06-18-2024 [facility] NEGATED: Highlighted row [facility] NEGATED: Highlighted rowStart: [place] History of tobacco use Passive smoker [facility] Goals Date Patient Goal Desired Activity /State Personal health goal Functional Status Date Assessment Result Facility 07-06-2023 Functional Status ID band on, Safety level maintained [facility] 08-18-2014 Are you deaf, or do you have serious difficulty hearing No 08/18/2014 3:08 PM EDT Yaritza Mccollum MA No [facility] 08-18-2014 Are you blind, or do you have serious difficulty seeing, even when wearing glasses No 08/18/2014 3:08 PM EDT Yaritza Mccollum MA No [facility] 08-18-2014 Do you have serious difficulty walking or climbing stairs No 08/18/2014 3:08 PM EDT Yaritza Mccollum MA No [facility] 08-18-2014 Do you have difficul ty dressing or bathing No 08/18/2014 3:08 PM EDT Yaritza Mccollum MA No [facility] 08-18-2014 Because of a physica l, mental, or emotional condition, do you have difficulty doing errands alone such as visiting a physician's office or shopping No 08/18/2014 3:08 PM EDT Yaritza Mccollum MA No [facility] Mental Status Date Assessment Result Facility 07-06-2023 Mental Status Orientation Oriented x 4 [facility] 07-02-2023 Cognitive function Level Of Cons ciousness Awake;Alert;Appropriate [facility] Work Phone: 09-06-2022 Cognitive function Level Of Cons ciousness Awake;Alert;Appropriate;Fol lows Commands [facility] Work Phone: 08-18-2014 Because of a physica l, mental, or emotional condition, do you have serious difficulty concentrating, remembering, or making decisions Yes 08/18/2014 3:08 PM EDT Yaritza Mccollum MA Yes [facility] Clinical Notes 07-23-2016 to 02-14-2025 Telephone Encounter - Dhara Sanchez MD - 01/17/2025 12:56 PM EDTTelephone Encounter - Dhara Sanchez MD - 01/17/2025 12:56 PM EDTTelephone Encounter - Steffanie Lozada RN - 01/17/2025 12:39 PM EDT Note Date & Type Note Facility 02-14-2025 Note HNO ID: [id number] Author: DHARA SANCHEZ MD Service: ? Author Type: Physician Type: Progress Notes Filed: 02/14/2025 16:12 Note Text: NST SUMMARY PROVIDER ASSESSMENT AND INTERPRETATION Janet Cha is a 25 year old female, , who is at 36w3d with an KELLEY of 03/11/2025, by Last Menstrual Period dating method. Indications for NST: Decreased Movement Baseline: 125 Variability: Moderate Accelerations: Present 15 X 15 Decelerations: None Contractions: TOCO: None Interpretation: Reactive SIGNATURE: Dhara Sanchez MD [facility] 02-09-2025 Note HNO ID: [id number] Author: XIMENA HARTMAN MD Service: ? Author Type: Physician Type: Progress Notes Filed: 02/09/2025 10:49 Note Text: NST SUMMARY PROVIDER ASSESSMENT AND INTERPRETATION Janet Cha is a 25 year old female, , who is at 35w5d with an KELLEY of 03/11/2025, by Last Menstrual Period dating method. Indications for NST: Obesity and Polyhydramnios Baseline: 140 Variability: Moderate Accelerations: One Present 15 X 15 Decelerations: None Contractions: TOCO: None Interpretation: Non-Reactive. One acceleration note - patient scheduled for BPP SIGNATURE: Ximena Hartman DO [facility] 02-02-2025 Note HNO ID: [id number] Author: STEFFANIE LOPEZ MD Service: ? Author Type: Physician Type: Progress Notes Filed: 02/02/2025 11:56 Note Text: NST SUMMARY PROVIDER ASSESSMENT AND INTERPRETATION Indications for NST: Polyhydramnios Baseline: 130 Variability: Moderate Accelerations: Present 15 X 15 Decelerations: None Interpretation: Reactive SIGNATURE: Steffanie Lopez MD [facility] 01-27-2025 Note HNO ID: [id number] Author: BHARGAVI NAVAS APRN.CN Service: ? Author Type: Service Observer Chief Type: Progress Notes Filed: 01/27/2025 13:38 Note Text: NST SUMMARY PROVIDER ASSESSMENT AND INTERPRETATION Janet Cha is a 24 year old female, , who is at 33w6d with an KELLEY of 03/11/2025, by Last Menstrual Period dating method. Indications for NST: Obesity Baseline: 125 Variability: Moderate Accelerations: Present 15 X 15 Decelerations: None Contractions: TOCO: None Interpretation: Reactive SIGNATURE: Bhargavi Navas APRN.CNM [facility] 01-24-2025 Note HNO ID: [id number] Author: DHARA SANCHEZ MD Service: ? Author Type: Physician Type: Progress Notes Filed: 01/24/2025 15:07 Note Text: NST SUMMARY PROVIDER ASSESSMENT AND INTERPRETATION Janet Frank is a 24 year old female, , who is at 33w3d with an KELLEY of 03/11/2025, by Last Menstrual Period dating method. Indications for NST: Obesity Baseline: 130 Variability: Moderate Accelerations: Present 15 X 15 Decelerations: Variable Contractions: TOCO: None Interpretation: Reactive SIGNATURE: Dhara Sanchez MD [facility] 01-17-2025 Telephone encounter Note EDC was confirmed by 2 early US and will not be changed. We can discuss this further at her next visit. Dhara Sanchez MD [facility] Work Phone: 01-17-2025 Miscellaneous Notes EDC was confirmed by 2 early US and will not be changed. We can discuss this further at her next visit. Dhara Sanchez MD Patient had called in to the office earlier. She has her next growth US and office visit on 01/24. Recommended patient discuss at this upcoming appointment once we have more information with the baby's growth. Can you please address this today in SW's absence since her next appointment is with you? Steffanie Lozada, RN documented in this encounter [facility] 01-17-2025 Telephone encounter Note Patient had called in to the office earlier. She has her next growth US and office visit on 01/24. Recommended patient discuss at this upcoming appointment once we have more information with the baby's growth. Can you please address this today in SW's absence since her next appointment is with you? Steffanie Lozada RN [facility] 01-12-2025 Note HNO ID: [id number] Author: XIMENA HARTMAN MD Service: ? Author Type: Physician Type: Progress Notes Filed: 01/12/2025 17:15 Note Text: SW- Shortness of Breath with exertion only. No Shortness of Breath at rest. No CP or palpitations. Pelvic pressure when walking. No ctx, vb, lof. Good FM PE: Gen- NAD, well appearing Abd- Soft, gravid, NT See flowsheet A/p 31 wk gestation - Anemia: Repeat CBC next visit. Cont iron every other day - H/o pre e: Reports home BP cuff was reading higher, and she went to [facility] recently for BP check. Recommend bringing BP cuff to next appointment. Cont LDA. Discussed reasons to call - Shortness of Breath with exertion only: Discussed reasons to go to ER - Obesity: Schedule repeat growth US and weekly NST's ordered starting at 36 weeks - RTO 2 wks Ximena Hartman DO [facility] 01-12-2025 History of Presen t illness Narrative SW- Shortness of Breath with exertion only. No Shortness of Breath at rest. No CP or palpitations. Pelvic pressure when walking. No ctx, vb, lof. Good FM PE: Gen- NAD, well appearing Abd- Soft, gravid, NT See flowsheet A/p 31 wk gestation - Anemia: Repeat CBC next visit. Cont iron every other day - H/o pre e: Reports home BP cuff was reading higher, and she went to L&D recently for BP check. Recommend bringing BP cuff to next appointment. Cont LDA. Discussed reasons to call - Shortness of Breath with exertion only: Discussed reasons to go to ER - Obesity: Schedule repeat growth US and weekly NST's ordered starting at 36 weeks - RTO 2 wks Ximena Hartman DO documented in this encounter [facility] 01-12-2025 Instructions Vincent Hale RN - 01/12/2025 11:09 AM EDT SEQUENTIAL SCREENINGS The [facility] offers sequential screenings for women who are [...] It will require an appointment with our turfgrass technician. This is not an ultrasound performed [...] the above symptoms, contact our office at [phone] and ask to speak with a nurse. After hours, you can call doctors registry at [phone] OR call [facility] at [phone] and ask to have the doctor senior mobile application developer paged. If you consider this an emergency, dial 01-02- or go to your nearest emergency department. NEED HELP? Are you dealing with a violent or abusive relationship? Are you a victim of rape or sexual assult? Call [facility] ([facility] 24 hour Crisis Hotline: 182.702.5151 or 962-284-8173. MANUAL Your Guide to a Healthy manual is now on-line. Visit [email or web address] to download your free copy documented in this encounter [facility] 01-05-2025 Telephone encounter Note Patient Comment: Only have 1 whole pill left and not the half pill I m supposed to take with the whole pill. I take 75mg need filled kim The patient has been identified by name [...] found Requested Prescriptions Pending Prescriptions Disp Refills sertraline (ZOLOFT) 50 mg tablet 45 tablet 0 Sig: Take 1.5 tablets by mouth once daily. Lyric Jaquez MA January 05, 2025 10:28 AM [facility] 01-05-2025 Miscellaneous Notes Patient Comment: Only have 1 whole pill left and not the half pill I m supposed to take with the whole pill. I take 75mg need filled kim The patient has been identified by name [...] found Requested Prescriptions Pending Prescriptions Disp Refills sertraline (ZOLOFT) 50 mg tablet 45 tablet 0 Sig: Take 1.5 tablets by mouth once daily. Lyric Jaquez MA January 05, 2025 10:28 AM documented in this encounter [facility] 12-29-2024 Telephone encounter Note Hgb 10.5 Borderline anemic. Can start taking iron every other day and repeat labs in 4 weeks [facility] 12-29-2024 Miscellaneous Notes Hgb 10.5 Borderline anemic. Can start taking iron every other day and repeat labs in 4 weeks 29w5d Pt call re: lab results she has reviewed on mychart and asking if she is anemic. Please review labs drawn on 12/28/24 and advise. Ferritin & TIBC were drawn & Anemia reflex panel in process. Pt denies chest pain, short of breath, light headedness/dizziness at this time. Pt did receive blood transfusion post delivery with 1st child fyi. Vincent Hale, VENKATESH documented in this encounter [facility] 12-29-2024 Telephone encounter Note 29w5d Pt call re: lab results she has reviewed on mychart and asking if she is anemic. Please review labs drawn on 12/28/24 and advise. Ferritin & TIBC were drawn & Anemia reflex panel in process. Pt denies chest pain, short of breath, light headedness/dizziness at this time. Pt did receive blood transfusion post delivery with 1st child fyi. Vincent Hale, VENKATESH [facility] 12-29-2024 Telephone encounter Note 3rd risk assessment form submitted 12/29/2024. Steffanie Neely RN [facility] 12-29-2024 Miscellaneous Notes 3rd risk assessment form submitted 12/29/2024. Steffanie Neely RN documented in this encounter [facility] 12-28-2024 Note Indication Evaluation of growth Maternal obesity, BMI >35, History of preeclampsia Impression - Single, live, intrauterine . - presentation is cephalic. - The biometry is measuring ahead of the assigned gestational dating. - The EFW is 1967 g, at the >99%. AC is at the >99%. - Amniotic fluid volume is mild polyhydramnios with an MVP of 9.2 cm and SETH of 27.6 cm. - The placenta is posterior, fundal. - No malformations visualized on a limited survey as detailed below. Recommendations - growth scan every 4 weeks - Additional follow up as clinically indicated. Maternal Assessment Height 163 cm Height (ft) 5 ft Height (in) 4 in Physical Exam Initial weight (lb) 218 lb Initial BMI 37.42 kg/m Maternal assessment other: 2 Para 1 REMOTE READ Method Transabdominal ultrasound examination Manzo . Number of fetuses: 1 Dating LMP on: 06/04/2024 GA by LMP 29 w + 4 d KELLEY by LMP: 03/11/2025 GA by prior assessment 29 w + 4 d KELLEY by prior assessment: 03/11/2025 Ultrasound examination on: 12/28/2024 GA by U/S based upon: AC, BPD, Femur, HC GA by U/S 31 w + 5 d KELLEY by U/S: 02/24/2025 Assigned: based on stated KELLEY, selected on 12/28/2024 Assigned GA 29 w + 4 d Assigned KELLEY: 03/11/2025 General Evaluation Cardiac activity present. FHR 130 bpm. movements: present. Presentation: cephalic Placenta: Placental site: posterior, fundal Umbilical cord: Cord vessels: 3 vessel cord Amniotic fluid: Amount of AF: mild polyhydramnios. MVP 9.2 cm. SETH 27.6 cm. Q1 5.7 cm, Q2 3.5 cm, Q3 9.1 cm, Q4 9.2 cm Growth Overview Exam date GA BPD (mm) HC (mm) AC (mm) FL (mm) HL (mm) EFW (g) 10/05/2024 17w 4d 40.5 80% 149.7 61% 130.3 80% 26.6 81% 26.8 87% 231 83% 10/26/2024 20w 4d 49.8 70% 188 66% 173 90% 37.1 95% 34.2 85% 459 97% 12/28/2024 29w 4d 77.6 84% 291.4 84% 291.3 >99% 60.3 96% 1967 >99% Biometry Standard BPD 77.6 mm 31w 1d 84% Hadlock OFD 103.5 mm 30w 4d 84% Nicolaides HC 291.4 mm 31w 2d 84% Dori AC 291.3 mm 33w 1d >99% Hadlock Femur 60.3 mm 31w 2d 96% Dori EFW 1,967 g 32w 0d >99% Hadlock EFW (lb) 4 lb EFW (oz) 5 oz EFW by: Hadlock (HC-AC-FL) Extended Medical Scribe 6.3 mm Extremities / Bony Struc FL / HC 0.21 Other Structures FHR 130 bpm Anatomy Lateral ventricles: normal Cavum septi pellucidi: normal Cerebellum: normal Cisterna magna: normal 4-chamber view: normal RVOT view: normal LVOT view: normal 3-vessel view: normal Heart / Thorax Situs: situs solitus (normal) Diaphragm: normal Stomach: normal Kidneys: normal Bladder: normal sex: female Wants to know sex: yes Performed By: Asia Serrano RDMS, RVT Read By: Nava Duran M.D. [facility] 12-28-2024 Progress note Formatting of t his note might be different from the original. RR- VB No. LOF No. CTXS No. Movement: present. Other c/o: nasuea at times. Takes zofran prn. Medication list reviewed. SENSITIVE EXAM: Sensitive exam not performed. Physical Exam See Flow Sheet Abd: soft, nontender, gravid A/P 29w4d Estimated Date of Delivery: 03/11/25 ASSESSMENT/PLAN: 1. Supervision of high risk in third trimester (HCC) - ICD9: V23.9, ICD10: O09.93 (primary diagnosis) 2. Hypothyroidism, unspecified type - ICD9: 244.9, ICD10: E03.9 check tsh today 3. Obesity in (HCC) - ICD9: 649.10, ICD10: O99.210 growth scans reviewed wt gain recommendations weekly testing at 32 weeks 4. 29 weeks gestation of (HCC) - ICD9: V22.2, ICD10: Z3A.29 5. Need for vaccination - ICD9: V05.9, ICD10: Z23 tdap reviewed and accepted today 6. sciatica, offered pT appointment, accepts 7. nausea- zofran revilled, uses prn 8. contraceptive management Risks, benefits and alternatives to sterilization have been discussed with the patient. She declines reversible options including LARC. She understands sterilization is permanent, irreversible, risks of failure, regret and ectopic. In addition she understands there are surgical risks as well. Her questions were answered to her satisfaction and consent was signed Emmanuel Hess MD [facility] 12-28-2024 Miscellaneous Notes RR- VB No. LOF No. CTXS No. Movement: present. Other c/o: nasuea at times. Takes zofran prn. Medication list reviewed. SENSITIVE EXAM: Sensitive exam not performed. Physical Exam See Flow Sheet Abd: soft, nontender, gravid A/P 29w4d Estimated Date of Delivery: 03/11/25 ASSESSMENT/PLAN: 1. Supervision of high risk in third trimester (HCC) - ICD9: V23.9, ICD10: O09.93 (primary diagnosis) 2. Hypothyroidism, unspecified type - ICD9: 244.9, ICD10: E03.9 check tsh today 3. Obesity in (HCC) - ICD9: 649.10, ICD10: O99.210 growth scans reviewed wt gain recommendations weekly testing at 32 weeks 4. 29 weeks gestation of (HCC) - ICD9: V22.2, ICD10: Z3A.29 5. Need for vaccination - ICD9: V05.9, ICD10: Z23 tdap reviewed and accepted today 6. sciatica, offered pT appointment, accepts 7. nausea- zofran revilled, uses prn 8. contraceptive management Risks, benefits and alternatives to sterilization have been discussed with the patient. She declines reversible options including LARC. She understands sterilization is permanent, irreversible, risks of failure, regret and ectopic. In addition she understands there are surgical risks as well. Her questions were answered to her satisfaction and consent was signed Emmanuel Hess MD documented in this encounter [facility] 12-28-2024 Note HNO ID: [id number] Author: YARITZA MCCOLLUM MA Service: ? Author Type: Heating And Ventilating Tender Type: Progress Notes Filed: 12/28/2024 15:10 Note Text: Patient identified by name and date of . Janet Frank presents today for a vaccination of Tdap. Patient denies an allergy to latex: yes Patient denies a severe (life-threatening) allergy to a previous dose of Tdap, DTP, DTaP, DT or Td vaccine. Yes Patient denies history of epilepsy or neurological problems: Yes Patient is afebrile and denies being moderately or severely ill: Yes Patient denies history of Guillain-Watson Syndrome (a severe paralytic illness): Yes Tdap Adacel injection was given without incident. See immunizations for details of immunizations administered today. VIS sheet provided: Yes Provider Dr Hess was present in office at time of injection. [facility] 12-28-2024 History of Presen t illness Narrative Patient identified by name and date of . Janet Frank presents today for a vaccination of Tdap. Patient denies an allergy to latex: yes Patient denies a severe (life-threatening) allergy to a previous dose of Tdap, DTP, DTaP, DT or Td vaccine. Yes Patient denies history of epilepsy or neurological problems: Yes Patient is afebrile and denies being moderately or severely ill: Yes Patient denies history of Guillain-Watson Syndrome (a severe paralytic illness): Yes Tdap Adacel injection was given without incident. See immunizations for details of immunizations administered today. VIS sheet provided: Yes Provider Dr Hess was present in office at time of injection. documented in this encounter [facility] 12-28-2024 Instructions Yaritza Mccollum MA - 12/28/2024 1:37 PM EDT SEQUENTIAL SCREENINGS The [facility] offers sequential screenings for women who are [...] It will require an appointment with our turfgrass technician. This is not an ultrasound performed [...] the above symptoms, contact our office at [phone] and ask to speak with a nurse. After hours, you can call doctors registry at [phone] OR call [facility] at [phone] and ask to have the doctor senior mobile application developer paged. If you consider this an emergency, dial 9-4-6 or go to your nearest emergency department. NEED HELP? Are you dealing with a violent or abusive relationship? Are you a victim of rape or sexual assult? Call [facility] ([facility] 24 hour Crisis Hotline: 574.912.2987 or 122-581-5584. MANUAL Your Guide to a Healthy manual is now on-line. Visit [email or web address] to download your free copy documented in this encounter [facility] 12-23-2024 Telephone encounter Note Patient 28w6d calling with concerns of decreased FM. Patient states she has decreased movement since Thursday. States she is not getting 6-10 movement in an hour when doing kick counts. Patient advised to go to L&D for evaluation, voiced understanding. FYI. Asia Garzon RN [facility] 12-23-2024 Miscellaneous Notes Patient 28w6d calling with concerns of decreased FM. Patient states she has decreased movement since Thursday. States she is not getting 6-10 movement in an hour when doing kick counts. Patient advised to go to L&D for evaluation, voiced understanding. FYI. Asai Garzon RN documented in this encounter [facility] 11-30-2024 Telephone encounter Note Ob patient called requesting refill of aspirin 81 mg. [facility] 11-30-2024 Miscellaneous Notes Ob patient called requesting refill of aspirin 81 mg. documented in this encounter [facility] 11-29-2024 Note HNO ID: [id number] Author: ANDRE SIMPSON APRN.FIRE 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 Service: ? Author Type: Nurse Practitioner Type: Progress Notes Filed: 11/29/2024 13:25 Note Text: I have communicated my name and active licensure. The patient's identity and physical location were verified at the time of this visit. Either the patient or their legal canvas products sales representative has been informed of the risks and benefits of -- and alternatives to -- treatment through a remote evaluation and consents to proceed with the evaluation remotely. Beto Frank is a 24 year old female. Patient presents for increasing depression and anxiety over the last month. Patient reports buspar works for her anxiety but she has increased mood swings and more low days. Objective LMP 06/04/2024 (Exact Date) GENERAL: alert and appropriate, in no distress, well-hydrated, well nourished, and happy, smiling, interactive PHQ-9 More data exists 08/26/2022 01/22/2024 11/21/2024 11/28/2024 11/29/2024 PHQ-9 Scores Little interest or pleasure in doing things: Not at all Not at all Not at all Not at all Not at all Not at all Feeling down, depressed, or hopeless: Not at all Not at all Not at all Not at all Several days Not at all Trouble falling or staying asleep, or sleeping too much - Not at all Not at all - - Several days Feeling tired or having little energy - Not at all Not at all - - Nearly every day Poor appetite or overeating - Not at all Not at all - - Not at all Feeling bad about yourself - or that you are a failure or have let yourself or your family down - Not at all Not at all - - More than half the days Trouble concentrating on things, such as reading the newspaper or watching television - Not at all Not at all - - More than half the days Moving or speaking so slowly that other people could have noticed. Or the opposite - being so fidgety or restless that you have been moving around a lot more than usual - Not at all Not at all - - Not at all Thoughts that you would be better off , or of hurting yourself in some way - Not at all Not at all - - Not at all PHQ-9 Score - 0 0 - - 8 Details Multiple values from one day are sorted in reverse-chronological order ASSESSMENT/PLAN: 1. Anxiety with depression - ICD9: 300.4, ICD10: F41.8 - SERTRALINE 50 MG TABLET-Increase to 1.5 tabs daily - Follow up in 4 weeks. Andre Simpson APRN.FIRE 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 Visit was conducted via [employer] Provider Location: [facility] Facility Patient Location: Patient Home or Place of Residence [facility] 11-29-2024 History of Presen t illness Narrative I have communicated my name and active licensure. The patient's identity and physical location were verified at the time of this visit. Either the patient or their legal canvas products sales representative has been informed of the risks and benefits of -- and alternatives to -- treatment through a remote evaluation and consents to proceed with the evaluation remotely. Subjective Janet Frank is a 24 year old female. Patient presents for increasing depression and anxiety over the last month. Patient reports buspar works for her anxiety but she has increased mood swings and more low days. Objective LMP 06/04/2024 (Exact Date) GENERAL: alert and appropriate, in no distress, well-hydrated, well nourished, and happy, smiling, interactive PHQ-9 More data exists 08/26/2022 01/22/2024 11/21/2024 11/28/2024 11/29/2024 PHQ-9 Scores Little interest or pleasure in doing things: Not at all Not at all Not at all Not at all Not at all Not at all Feeling down, depressed, or hopeless: Not at all Not at all Not at all Not at all Several days Not at all Trouble falling or staying asleep, or sleeping too much - Not at all Not at all - - Several days Feeling tired or having little energy - Not at all Not at all - - Nearly every day Poor appetite or overeating - Not at all Not at all - - Not at all Feeling bad about yourself - or that you are a failure or have let yourself or your family down - Not at all Not at all - - More than half the days Trouble concentrating on things, such as reading the newspaper or watching television - Not at all Not at all - - More than half the days Moving or speaking so slowly that other people could have noticed. Or the opposite - being so fidgety or restless that you have been moving around a lot more than usual - Not at all Not at all - - Not at all Thoughts that you would be better off , or of hurting yourself in some way - Not at all Not at all - - Not at all PHQ-9 Score - 0 0 - - 8 Details Multiple values from one day are sorted in reverse-chronological order ASSESSMENT/PLAN: 1. Anxiety with depression - ICD9: 300.4, ICD10: F41.8 - SERTRALINE 50 MG TABLET-Increase to 1.5 tabs daily - Follow up in 4 weeks. Andre Simpson APRN.FIRE 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 Visit was conducted via [employer] Provider Location: [facility] Patient Location: Patient Home or Place of Residence documented in this encounter [facility] 11-29-2024 Progress note Formatting of t his note might be different from the original. RM-Pt doing well. Denies vaginal Bleeding, Leaking fluid, or regular Contractions. Pt reports good movement. Getting VARGAS, is using Benadryl and Tylenol with little relief, Reglan order to add to regimen. Physical Exam: Gen: no apparent distress Abd: soft, Gravid. Non tender to palpation. See flow sheet ASSESSMENT/PLAN: 1. Supervision of other high risk pregnancies, second trimester ([facility]) - ICD9: V23.89, ICD10: O09.892 (primary diagnosis) 2. 25 weeks gestation of ([facility]) - ICD9: V22.2, ICD10: Z3A.25 3. Screening for diabetes mellitus - ICD9: V77.1, ICD10: Z13.1 - GESTATIONAL GLUCOSE SCREEN, 1-HOUR, 50 GRAM, NON-FASTING 4. Hx of preeclampsia, prior , currently ([facility]) - ICD9: V23.49, ICD10: O09.299 5. Hypothyroidism, unspecified type - ICD9: 244.9, ICD10: E03.9 Seeing Endocrinology at the end of December 6. Obesity in ([facility]) - ICD9: 649.10, ICD10: O99.210 Growth US Q 4 weeks NST @ 32 wks Elayne Severino APRN.FIRE 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 [facility] 11-29-2024 Miscellaneous Notes RM-Pt doing well. Denies vaginal Bleeding, Leaking fluid, or regular Contractions. Pt reports good movement. Getting VARGAS, is using Benadryl and Tylenol with little relief, Reglan order to add to regimen. Physical Exam: Gen: no apparent distress Abd: soft, Gravid. Non tender to palpation. See flow sheet ASSESSMENT/PLAN: 1. Supervision of other high risk pregnancies, second trimester ([facility]) - ICD9: V23.89, ICD10: O09.892 (primary diagnosis) 2. 25 weeks gestation of ([facility]) - ICD9: V22.2, ICD10: Z3A.25 3. Screening for diabetes mellitus - ICD9: V77.1, ICD10: Z13.1 - GESTATIONAL GLUCOSE SCREEN, 1-HOUR, 50 GRAM, NON-FASTING 4. Hx of preeclampsia, prior , currently ([facility]) - ICD9: V23.49, ICD10: O09.299 5. Hypothyroidism, unspecified type - ICD9: 244.9, ICD10: E03.9 Seeing Endocrinology at the end of December 6. Obesity in ([facility]) - ICD9: 649.10, ICD10: O99.210 Growth US Q 4 weeks NST @ 32 wks Elayne Severino APRN.FIRE 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 documented in this encounter [facility] 11-29-2024 Instructions Tammy Duke LPN - 11/29/2024 10:09 AM EDT SEQUENTIAL SCREENINGS The [facility] offers sequential screenings for women who are [...] It will require an appointment with our turfgrass technician. This is not an ultrasound performed [...] the above symptoms, contact our office at [phone] and ask to speak with a nurse. After hours, you can call doctors registry at [phone] OR call [facility] at [phone] and ask to have the doctor senior mobile application developer paged. If you consider this an emergency, dial 9--1 or go to your nearest emergency department. NEED HELP? Are you dealing with a violent or abusive relationship? Are you a victim of rape or sexual assult? Call [facility] ([place]) 24 hour Crisis Hotline: 988.601.9471 or 998-506-2751. MANUAL Your Guide to a Healthy manual is now on-line. Visit [email or web address] to download your free copy documented in this encounter [facility] 11-21-2024 Telephone encounter Note Urine dropped off and in process. Asia Garzon RN [facility] 11-21-2024 Miscellaneous Notes Urine dropped off and in process. Asia Garzon RN Seen in triage with headache for 2 weeks. Elevated BP at home x 1 day. Normal BPS in triage. Pr/cr 519. First trimester pr/cr 0.31. Hx of Headaches and pre e in a previous . Patient given supplies for 24 hour to tune in to lab on Thursday morning Orders placed. documented in this encounter [facility] 11-20-2024 Evaluation note Diagnosis Onset Date Resolution 24 weeks gestation of acute November 19, 2024 10:10pm Headache in acute Yoshi y 19th, 2025 10:10pm Proteinuria affecting in second trimester acute November 19, 2024 10:10pm [facility] Work Phone: 1(751) 154-200107-19-2025 Telephone encounter Note* Telephone Encounter - Steffanie Lopez MD - 11/19/2024 11:40 PM EDT Seen in triage with headache for 2 weeks. Elevated BP at home x 1 day. Normal BPS in triage. Pr/cr 519. First trimester pr/cr 0.31. Hx of Headaches and pre e in a previous . Patient given supplies for 24 hour to tune in to lab on Thursday morning Orders placed. [facility]07-19-2025 Hospital Discharge instructionsAdditional Instructions Keep OB appointment this week, 24 hour urine to be started 11/20 at 8am and bring to [facility] lab on 11/21 at 8am.[facility] Work Phone: [phone] [id number] Telephone encounter Note* Telephone Encounter - Joyce Restrepo MD - 11/16/2024 11:37 AM EDT Noted. Thank you [facility] Work Phone: [phone]) 100-364207-16-2025 Miscellaneous Notes* Telephone Encounter - Joyce Restrepo MD - 11/16/2024 11:37 AM EDT Noted. Thank you * Telephone Encounter - Steffanie Lozada RN - 11/16/2024 10:50 AM EDT 23w4d REASON FOR CALL: Headache pain rate [...] the office today instead. Again, advised that sheis reporting her pain as a 10 and that indicates a visit to the ER. Next OB visit is 11/23. Steffanie Lozada RN documented in this encounterSumma Health Wad[facility]07-16-2025 Telephone encounter Note * Telephone Encounter - Steffanie Lozada RN - 11/16/2024 10:50 AM EDT 23w4d REASON FOR CALL: Headache pain rate [...] the office today instead. Again, advised that sheis reporting her pain as a 10 and that indicates a visit to the ER. Next OB visit is 11/23. Steffanie Lozada RN [facility]06-26-2025 Telephone encounter Note* Telephone Encounter - Steffanie Neely RN - 10/27/2024 9:36 AM EDT 2nd risk assessment form submitted 10/27/2024. Steffanie Neely RN [facility]06-26-2025 Miscellaneous Notes* Telephone Encounter - Steffanie Neely RN - 10/27/2024 9:36 AM EDT 2nd risk assessment form submitted 10/27/2024. Steffanie Neely RN documented in this encounterSumma Health Wad[facility] - [facility]06-25-2025 Progress note* Quick Notes - Steffanie Lopez MD - 10/26/2024 11:20 AM EDT S: Janet Frank is a 24 year [...] of other high risk pregnancies, second trimester ([facility]) - ICD9: V23.89, ICD10: O09.892 (primary diagnosis) 2. Obesity in ([facility]) - ICD9: 649.10, ICD10: O99.210 Growth q 4 NST at 32 weeks 3. Hypothyroidism, unspecified type - ICD9: 244.9, ICD10: E03.9 Sees endocrine 4. Hx of preeclampsia, prior , currently ([facility]) - ICD9: V23.49, ICD10: O09.299 5. 20 weeks gestation of ([facility]) - ICD9: V22.2, ICD10: Z3A.20 Steffanie Lopez MD [facility]06-25-2025 Miscellaneous Notes* Quick Notes - Steffanie Lopez MD - 10/26/2024 11:20 AM EDT S: Janet Frank is a 24 year [...] of other high risk pregnancies, second trimester ([facility]) - ICD9: V23.89, ICD10: O09.892 (primary diagnosis) 2. Obesity in ([facility]) - ICD9: 649.10, ICD10: O99.210 Growth q 4 NST at 32 weeks 3. Hypothyroidism, unspecified type - ICD9: 244.9, ICD10: E03.9 Sees endocrine 4. Hx of preeclampsia, prior , currently ([facility]) - ICD9: V23.49, ICD10: O09.299 5. 20 weeks gestation of ([facility]) - ICD9: V22.2, ICD10: Z3A.20 Steffanie Lopez MD documented in this encounterSumma Health Wad[facility]06-25-2025 Instructions* Patient Instructions* Angie Brown MA - 10/26/2024 11:10 AM EDT SEQUENTIAL SCREENINGS The [facility] offers sequential screenings for women who are interested in screenings for chromosomal abnormalities and certain defects during a . The sequential screen combinesultrasound and blood tests to determine the risk [...] this testing. It will require an appointment withour turfgrass technician. This is not an ultrasound performed [...] the above symptoms, contact our office at [phone] and ask to speak with anurse. After hours, you can call doctors registry at [phone] OR call [facility] at [phone] ask to have the doctor senior mobile application developer paged. If you consider this an emergency, dial 9--8 or go to your nearest emergency department. NEED HELP? Are you dealing with a violent or abusive relationship? Are you a victim of rape or sexual assult? Call [facility] ([place]) 24 hour Crisis Hotline: 332.834.6514 or 812-523-4357. MANUAL Your Guide to a Healthy manual is now on-line. Visit [email or web address] to download your free copy documented in this encounterSumma Health Wad[facility]06-04-2025 Progress note* Result Encounter Note - Emmanuel Hess MD - 10/05/2024 12:29 PM EDT Anatomy ultrasound reviewed. No abnormalities identified. Follow up as clinically indicated. Pleaseplace copy in ob chart. Emmanuel Hess MD [facility]06-04-2025 Miscellaneous Notes* Result Encounter Note - Emmanuel Hess MD - 10/05/2024 12:29 PM EDT Anatomy ultrasound reviewed. No abnormalities identified. Follow up as clinically indicated. Pleaseplace copy in ob chart. Emmanuel Hess MD documented in this encounterSumma Health Wad[facility]05-29-2025 Progress note* Quick Notes - Emmanuel Hess MD - 09/29/2024 11:36 AM EDT RR- VB No. LOF No. CTXS No. Movement: present. Other c/o: No. Medication list reviewed. SENSITIVE EXAM: The sensitive examination was discussed with the Patient or Patient's Authorized Pulmonologist. As applicable, any other physician, advance practice provider, medical student, or other health professional student that will be observing or involved in the sensitive examination for educational or training purposes was discussed with the Patient or Authorized Pulmonologist. The Patient or Authorized Pulmonologist has agreed to proceed with the sensitive [...] of other high risk pregnancies, second trimester ([facility]) Orders: TRICHOMONAS VAGINALIS NAAT GONORRHEA/CHLAMYDIA NAAT CONSULT TO ENDOCRINOLOGY; Future OBSTETRIC ULTRASOUND WHI; Standing Hx of preeclampsia, prior , currently ([facility]) Orders: OBSTETRIC ULTRASOUND WHI; Standing Obesity in ([facility]) counseled on wt gain Orders: OBSTETRIC ULTRASOUND WHI; Standing Hypothyroidism, unspecified type increased syntrhoid to 62.5 mg daily, rx sent Orders: CONSULT TO ENDOCRINOLOGY; Future OBSTETRIC ULTRASOUND WHI; Standing 16 weeks gestation of ([facility]) Orders: TRICHOMONAS VAGINALIS NAAT GONORRHEA/CHLAMYDIA NAAT CONSULT TO ENDOCRINOLOGY; Future Trichomoniasis Orders: TRICHOMONAS VAGINALIS NAAT GONORRHEA/CHLAMYDIA NAAT Screen for STD (sexually transmitted disease) Orders: TRICHOMONAS VAGINALIS NAAT GONORRHEA/CHLAMYDIA NAAT f/u in 4 weeks or prn Emmanuel Hess M.D. [facility]05-29-2025 Miscellaneous Notes* Quick Notes - Emmanuel Hess MD - 09/29/2024 11:36 AM EDT RR- VB No. LOF No. CTXS No. Movement: present. Other c/o: No. Medication list reviewed. SENSITIVE EXAM: The sensitive examination was discussed with the Patient or Patient's Authorized Pulmonologist. As applicable, any other physician, advance practice provider, medical student, or other health professional student that will be observing or involved in the sensitive examination for educational or training purposes was discussed with the Patient or Authorized Pulmonologist. The Patient or Authorized Pulmonologist has agreed to proceed with the sensitive [...] of other high risk pregnancies, second trimester ([facility]) Orders: TRICHOMONAS VAGINALIS NAAT GONORRHEA/CHLAMYDIA NAAT CONSULT TO ENDOCRINOLOGY; Future OBSTETRIC ULTRASOUND WHI; Standing Hx of preeclampsia, prior , currently ([facility]) Orders: OBSTETRIC ULTRASOUND WHI; Standing Obesity in ([facility]) counseled on wt gain Orders: OBSTETRIC ULTRASOUND WHI; Standing Hypothyroidism, unspecified type increased syntrhoid to 62.5 mg daily, rx sent Orders: CONSULT TO ENDOCRINOLOGY; Future OBSTETRIC ULTRASOUND WHI; Standing 16 weeks gestation of ([facility]) Orders: TRICHOMONAS VAGINALIS NAAT GONORRHEA/CHLAMYDIA NAAT CONSULT TO ENDOCRINOLOGY; Future Trichomoniasis Orders: TRICHOMONAS VAGINALIS NAAT GONORRHEA/CHLAMYDIA NAAT Screen for STD (sexually transmitted disease) Orders: TRICHOMONAS VAGINALIS NAAT GONORRHEA/CHLAMYDIA NAAT f/u in 4 weeks or prn Emmanuel Hess M.D. documented in this encounterSumma Health Wadsworth - [facility]05-29-2025 Instructions* Patient Instructions* Yaritza Mccollum MA - 09/29/2024 11:25 AM EDT SEQUENTIAL SCREENINGS The [facility] offers sequential screenings for women who are interested in screenings for chromosomal abnormalities and certain defects during a . The sequential screen combinesultrasound and blood tests to determine the risk [...] this testing. It will require an appointment withour turfgrass technician. This is not an ultrasound performed [...] the above symptoms, contact our office at [phone] and ask to speak with anurse. After hours, you can call doctors registry at [phone] OR call [facility] at [phone] ask to have the doctor senior mobile application developer paged. If you consider this an emergency, dial 9-0-7 or go to your nearest emergency department. NEED HELP? Are you dealing with a violent or abusive relationship? Are you a victim of rape or sexual assult? Call [facility] ([place]) 24 hour Crisis Hotline: 196.860.6312 or 116-526-0234. MANUAL Your Guide to a Healthy manual is now on-line. Visit [email or web address] to download your free copy documented in this encounterSumma Health Wad[facility]05-08-2025 Telephone encounter Note * Telephone Encounter - Genie Jackson MD - 09/08/2024 10:37 AM EDT Med refilled at appt Genie Jackson MD [facility]05-08-2025 Miscellaneous Notes* Telephone Encounter - Genie Jackson MD - 09/08/2024 10:37 AM EDT Med refilled at appt Genie Jackson MD * Telephone Encounter - Lis Link RN - 09/07/2024 11:59 AM EDT Patient reports she is completely out of her buspar. Requesting refill. Pended. Patient currently , 13 weeks, 4 days, sees STONE FINISHER MYRIAM was 08/04/24 -Per note, OK to [...] 07, 2024 12:02 PM documented in this encounterSumma Health Wad[facility] - [facility]05-08-2025 History of Present illness Narrative* Genie Jackson MD - 09/08/2024 9:20 AM EDT Chief Complaint Patient presents with: Medication Follow-up [...] licensure. The patient's identity and physical location wereverified at the time of this visit. Either the patient or their legal canvas products sales representative has been informed of the risks and benefits of -- and alternatives to -- treatment through a remote evaluation andconsents to proceed with the evaluation remotely. Pt is 14 weeks . She is having increased anxiety with a little depression, mostly anxiety issues. Pt would like to discuss increasing her Buspar dosage. She is currently taking 15 mg 1 pill twice a day as well as Zoloft 50 mg once a day. She ran out of the Buspar yesterday. She wants to incr ease dosage to TID. She has been taking it 3 times/day and finds that it works better at this dose.Does not do any counseling, has done in [...] by mouth two times a day. VIT 3-UJPU-LRJSS-DHA ORAL Take by mouth. diphenhydramine HCl (UNISOM, [...] or Tdap) due on 02/07/2019 Covid-19 Vaccine( season) due on 01/03/2024 Influenza Vaccine(Season Ended) [...] Past Histories independently gathered by the clinical support analyst and the remaining scribed note accurately describes my personal service to the patient. Genie Jackson MD The documentation for this note was completed by Lyric Jaquez MA acting as scribe for Genie Jackson MD. September 08, 2024 9:07 AM. Lyric Jaquez MA documented in this encounterSumma Health Wadsworth - [facility]05-08-2025 NoteHNO ID: [id number] Author: GENIE JACKSON MD Service: ? Author [...] visit. Either the patient or their legal canvas products sales representative has been informed of the risks [...] by mouth two times a day. VIT 1-ELJD-BFQRD-DHA ORAL Take by mouth. diphenhydramine HCl (UNISOM, [...] or Tdap) due on 02/07/2019 Covid-19 Vaccine( season) due on 01/03/2024 Influenza Vaccine(Season Ended) [...] and Past Histories indep (more content not included)...[facility]05-07-2025 Telephone encounter Note* Telephone Encounter - Lis Link RN - 09/07/2024 11:59 AM EDT Patient reports she is completely out of her buspar. Requesting refill. Pended. Patient currently , 13 weeks, 4 days, sees STONE FINISHER MYRIAM was 08/04/24 -Per note, OK to [...] Link RN September 07, 2024 12:02 PM [facility]04-30-2025 Progress note* Result Encounter Note - Emmanuel Hess MD - 08/31/2024 1:07 PM EDT Anatomy ultrasound reviewed. No abnormalities identified. Follow up as clinically indicated. Pleaseplace copy in ob chart. Emmanuel Hess MD [facility]04-30-2025 Miscellaneous Notes* Result Encounter Note - Emmanuel Hess MD - 08/31/2024 1:07 PM EDT Anatomy ultrasound reviewed. No abnormalities identified. Follow up as clinically indicated. Pleaseplace copy in ob chart. Emmanuel Hess MD documented in this encounterSumma Health Wadsworth - [facility]04-30-2025 Progress note* Quick Notes - Bhargavi Navas APRN.CNM - 08/31/2024 12:25 PM EDT LINNETTE-S: Janet Frank is a 24 year [...] RTO in 4 weeks Bhargavi Navas APRN.CNM [facility]04-30-2025 Miscellaneous Notes* Quick Notes - Bhargavi Navas APRN.CNM - 08/31/2024 12:25 PM EDT LINNETTE-S: Janet Frank is a 24 year [...] weeks Bhargavi Navas APRN.CNM documented in this encounterSumma Health Wadsworth - [facility]04-30-2025 NoteHNO ID: [id number] Author: BHARGAVI NAVAS APRN.CNM Service: ? Author Type: Service Observer Chief Type: Progress Notes Filed: 08/31/2024 12:39 Note Text:[facility]04-30-2025 History of Present illness Narrative* Bhargavi Navas APRN.CNM - 08/31/2024 12:06 PM EDT documented in this encounterSumma Health Wadsworth - [facility]04-30-2025 Instructions* Patient Instructions* Rehan Cervantes MA - 08/31/2024 11:50 AM EDT SEQUENTIAL SCREENINGS The [facility] offers sequential screenings for women who are interested in screenings for chromosomal abnormalities and certain defects during a . The sequential screen combinesultrasound and blood tests to determine the risk [...] this testing. It will require an appointment withour turfgrass technician. This is not an ultrasound performed [...] the above symptoms, contact our office at [phone] and ask to speak with anurse. After hours, you can call doctors registry at [phone] OR call [facility] at [phone] ask to have the doctor senior mobile application developer paged. If you consider this an emergency, dial 01-02- or go to your nearest emergency department. NEED HELP? Are you dealing with a violent or abusive relationship? Are you a victim of rape or sexual assult? Call [facility] ([place]) 24 hour Crisis Hotline: 130.836.5131 or 834-361-9215. MANUAL Your Guide to a Healthy manual is now on-line. Visit [email or web address] to download your free copy documented in this encounterSumma Health Wadsworth - [facility]04-03-2025 History of Present illness Narrative* Genie Jackson MD - 08/04/2024 11:20 AM EDT Chief Complaint No chief complaint on file. HPI:This Team Access Model visit is a virtual encounter. It required patient- provider interaction for the medical decision making as [...] licensure. The patient's identity and physical location wereverified at the time of this visit. Either the patient or their legal canvas products sales representative has been informed of the risks and benefits of -- and alternatives to -- treatment through a remote evaluation andconsents to proceed with the evaluation remotely. Pt completing a virtual visit today to discuss reducing her Buspar, due to feeling funny. Reports she's been splitting the 30 mg pill in 1/2 twice daily. Pt reports that the 30 mg dose was making herfeel dizzy, unwell. Since splitting the dosage she's not had this issue. Pt is currently 8 weeks . She's currently being treated for anxiety and depression, [facility] not [facility]. Pt on current regimen of Buspar 30 mg 1 tab po bid and Zoloft 50 mgonce daily. Doing well on the zoloft. Also [...] 1 tablet by mouth once daily. VIT 6-UHEH-JWBAN-DHA ORAL Take by mouth. diphenhydramine HCl (UNISOM, [...] months Genie Jackson MD documented in this encounterSumma Health Wadsworth - [facility]04-03-2025 NoteHNO ID: [id number] Author: GENIE JACKSON MD Service: ? Author [...] visit. Either the patient or their legal canvas products sales representative has been informed of the risks [...] 1 tablet by mouth once daily. VIT 7-TTHG-JDYWH-DHA ORAL Take by mouth. diphenhydramine HCl (UNISOM, [...] Anxiety Screening due on (more content not included)...[facility]04-01-2025 Telephone encounter Note* Telephone Encounter - Elayne Severino APRN.CNP - 08/02/2024 1:55 PM EDT Rx sent. Elayne Severino APRN.CNP [place] [address]-01-2025 Miscellaneous Notes* Telephone Encounter - Elayne Severino APRN.CNP - 08/02/2024 1:55 PM EDT Rx sent. Elayne Severino APRN.CNP * Telephone Encounter - Asia Garzon RN - 08/02/2024 1:08 PM EDT Patient notified and is requesting EPT. Expedited [...] explained. Please file pended EPT order. Asia Garzon RN * Telephone Encounter - Elayne Severino APRN.CNP - 08/02/2024 12:31 PM EDT Flagyl sent. If STDs are left untreated there is small chance that is can lead to miscarriage. Doesshe need partner treatment? Elayne Severino APRN.CNP * Telephone Encounter - Steffanie Lozada RN - 08/02/2024 12:02 PM EDT 8w3d Patient viewed +Trich on Mychart. Asking if this could harm her baby. Please review result and advise. Steffanie Lozada RN documented in this encounterSumma Health Wad[facility] - [facility]04-01-2025 Telephone encounter Note * Telephone Encounter - Asia Garzon RN - 08/02/2024 1:08 PM EDT Patient notified and is requesting EPT. Expedited [...] explained. Please file pended EPT order. Asia Garzon RN [facility]04-01-2025 Instructions* Patient Instructions* Asia Garzon RN - 08/02/2024 1:08 PM EDT Expedited [...] to prevent other STIs. documented in this encounterSumma Health Wadsworth - [facility]04-01-2025 Telephone encounter Note * Telephone Encounter - Steffanie Neely RN - 08/02/2024 12:41 PM EDT 1st risk assessment form submitted 08/02/2024. Steffanie Neely RN [facility]04-01-2025 Miscellaneous Notes* Telephone Encounter - Steffanie Neely RN - 08/02/2024 12:41 PM EDT 1st risk assessment form submitted 08/02/2024. Steffanie Neely RN documented in this encounterSumma Health Wad[facility] - [facility]04-01-2025 Telephone encounter Note * Telephone Encounter - Elayne Severino APRN.CNP - 08/02/2024 12:31 PM EDT Flagyl sent. If STDs are left untreated there is small chance that is can lead to miscarriage. Doesshe need partner treatment? Elayne Severino APRN.CNP [facility]04-01-2025 Telephone encounter Note* Telephone Encounter - tSeffanie Lozada RN - 08/02/2024 12:02 PM EDT 8w3d Patient viewed +Trich on Mychart. Asking if this could harm her baby. Please review result and advise. Steffanie Lozada RN [facility]03-31-2025 Instructions* Patient Instructions* Tammy Duke LPN - 08/01/2024 8:13 AM EDT Please select the following link to access the [facility] Your Guide to a Healthy . [email or web address] documented in this encounterSumma Health Wadsworth - [facility]03-24-2025 NoteHNO ID: [id number] Author: ELAYNE SEVERINO APRN.CIERRA Service: ? 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 *History of preeclampsia with prior *History of hemorrhage. Received blood transfusion *Pt has a history of anxiety/depression diagnosed as a teenager. Recently changed from Prozac to Zoloft by Dr. Jackson. On BuSpar as well. Denies any history of depression. States she has had suicidal thoughts in the past but none since age 15. Had 2 psychiatric hospitalizations one at age 13 in [place] and the other at [facility] [...] at all I h (more content not included)...[facility]03-24-2025 History of Present illness Narrative* Elayne Severino APRN.FIRE 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 - 07/25/2024 5:01 PM EDT Images from the original note were not included. Patient declined antenna machine operator. *History of preeclampsia with prior *History of hemorrhage. Received blood transfusion *Pt has a history of anxiety/depression diagnosed as a teenager. Recently changed from Prozac to Zoloft by Dr. Jackson. On BuSpar as well. Denies any history of depression. States she has had suicidal thoughts in the past but none since age 15. Had 2 psychiatric hospitalizations one at age 13 in [place] and the other at [facility] [...] harming myself has occurred to me. 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 diphenhydramine HCl (UNISOM, [...] discussed with the Patient or Patient's Authorized Pulmonologist. As applicable, any other physician, advance practice provider, medical student, or other health professional student that will be observing or involved in the sensitive examination for educational or training purposes was discussed with the Patient or Authorized Pulmonologist. The Patient or Authorized Pulmonologist has agreed to proceed with the sensitive [...] activity, CRL consistent with LMP. Elayne Severino APRN.FIRE 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 SBIRT Janet Frank was given the 4P's [...] to rescreen early third trimester. Elayne Severino APRN.CNP ASSESSMENT: 24 year old at 7w2d wks gestational age PLAN: 1) Patient oriented to practice. Patient given new OB orientation folder. Discussed nutrition, folic acid supplementation, dietary guidelines, exercise, smoking, alcohol, caffeine, and drug use. Discussed gestational weight gain guidelines. Discussed routine OB labs including STD/HIV. Discussed how to access Your guide to a health and the Core Driller Helper. Patient has penicillin allergy, plan for allergy testing. Reviewed midwifery and color checker services that are available. 2) Screening: Hemoglobin [...] aneuploidy screening was provided. The patient chooses toproceed with First trimester early anatomy ultrasound (12-13w6d) [...] about the risks of tobacco use during pregnancyand cessation has been recommended. Patient plans to quit or decrease smoking without outside assistance. 10 minutes were spent discussing the risks of tobacco use and providing cessation resources. 5) Hx of preeclampsia and PPH Follow up in 4 weeks or sooner prn. Elayne Severino APRN.FIRE 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 documented in this encounterSumma Health Wadsworth - [facility]03-24-2025 Telephone encounter Note * Telephone Encounter - Xavier Currie RN - 07/25/2024 4:16 PM EDT Left message for patient to return phone call to complete nurse intake questions for her upcoming appointment. Patient has an appointment with Elayne Severino for NOB appointment. [facility]03-24-2025 Miscellaneous Notes* Telephone Encounter - Xavier Currie RN - 07/25/2024 4:16 PM EDT Left message for patient to return phone call to complete nurse intake questions for her upcoming appointment. Patient has an appointment with Elayne Severino for NOB appointment. documented in this encounterSumma Health Wad[facility] - [facility]03-21-2025 Telephone encounter Note * Telephone Encounter - Lela Daley RN - 07/22/2024 9:39 AM EDT Pt was scheduled today with Dr Jackson for a VV to discuss medication options. [facility]03-21-2025 Miscellaneous Notes* Telephone Encounter - Lela Daley RN - 07/22/2024 9:39 AM EDT Pt was scheduled today with Dr Jackson for a VV to discuss medication options. * Telephone Encounter - Genie Jackson MD - 07/22/2024 9:30 AM EDT Needs office visit to discuss options Genie Jackson MD * Telephone Encounter - Karis Hess LPN - 07/22/2024 9:17 AM EDT Patient called to asking if she should continue taking the Linzess as she is 7 weeks . OB suggested that there maybe something else that she can try that is much safer. documented in this encounterSumma Health [facility]03-[facility]25 Telephone encounter Note * Telephone Encounter - Genie Jackson MD - 07/22/2024 9:30 AM EDT Needs office visit to discuss options Genie Jackson MD [facility]03-21-2025 Telephone encounter Note* Telephone Encounter - Karis Hess LPN - 07/22/2024 9:17 AM EDT Patient called to asking if she should continue taking the Linzess as she is 7 weeks . OB suggested that there maybe something else that she can try that is much safer. [facility]03-19-2025 Instructions* Patient Instructions* Roxana Fry APRN.CNM - 07/20/2024 1:22 PM EDT MORNING SICKNESS IN by Bev Horowitz M.D. for [employer] As you may already know, morning sickness can often be more appropriately called evening sickness or yhjtw-zxhztb-lu-the-day sickness. While there are the bautista few, most women (50-90%) experience some degree of nausea, some have vomiting, and a few develop a severe form of vomiting duringpregnancy called hyperemesis gravidarum. What causes the nausea and vomiting of ? We can't explain why some people feel fine and others are green for months. Even the same woman mayfeel vastly different in each . There is some relationship between nausea and the level ofthe hormone hCG. In twin pregnancies, and in [...] weeks can go by slowly but most momsdo feel tremendously better by the middle of [...] prevent nausea from starting. vitamins and nausea: Pre- vitamins can sometimes worsen nausea in . While folate is necessary, especially early in the , it comes as a smaller pill that many people find more tolerable than the complete vitamin pill. Ask your practitioner if it is okay to temporarilyreplace vitamins and iron with just a folate [...] medication called Bendectin was available in the -s and was shown to be safe in [...] medication, Doxylamine, is currently marketed as an mmcc-zdw-blzbacp sleeping pill. Ask your practitioner if creating a vitamin B6/Doxylaminecombination with bxnq-ijy-wqxunbc medications would be safe for you. Prescription medications like Compazine and Phenergan can be used if the benefits outweigh possiblerisks, but these have not been clearly shown [...] able. If you are unable to keep anyt kasey down, or if you notice potential signs of dehydration such as lightheadedness, or concentratedand/or infrequent urination, call your practitioner. Some women need brief hospital admission for intravenous fluids and anti-nausea medications if their condition becomes severe. This severe form ofnausea and vomiting is called Hyperemesis Gravidarum. As [...] as Phenergan, Compazine, Reglan documented in this encounterSumma Health [facility]03-19-2025 NoteHNO ID: [id number] Author: ROXANA FRY APRN.CNM Service: ? Author Type: Service Observer Chief Type: Progress Notes Filed: 07/20/2024 13:31 Note [...] transfusion after due to CBC of 3. Drag Out Worker History LMP: 05/13/2024 (Exact Date), Having periods Age at Menarche: Age at First : Age at Menopause: Drag Out Worker History Comments: Sexual Activity: Yes; Male Contraception: [...] RTO 1 week for NOB Roxana Fry APRN.[facility]03-19-2025 History of Present illness Narrative* Roxana Fry APRN.[facility] - 07/20/2024 12:56 PM EDT Janet Frank is a 24 year old [...] transfusion after due to CBC of 3. Drag Out Worker History LMP: 05/13/2024 (Exact Date), Having periods Age at Menarche: Age at First : Age at Menopause: Drag Out Worker History Comments: Sexual Activity: Yes; Male Contraception: [...] for CARL Fry APRN.CNM documented in this encounterSumma Health [facility]02-17-2025 Telephone encounter Note * Telephone Encounter - Ivelisse Ng APRN.CNP - 06/20/2024 3:55 PM EST The following approved medication requests have been transmitted electronically. Requested Prescriptions Signed Prescriptions Disp Refills busPIRone 30 mg tablet 60 tablet 5 Sig: Take 1 tablet by mouth two times a day. Authorizing Provider: IVELISSE NG APRN.CNP [facility]02-17-2025 Miscellaneous Notes* Telephone Encounter - Ivelisse Ng APRN.CNP - 06/20/2024 3:55 PM EST The following approved medication requests have been transmitted electronically. Requested Prescriptions Signed Prescriptions Disp Refills busPIRone 30 mg tablet 60 tablet 5 Sig: Take 1 tablet by mouth two times a day. Authorizing Provider: IVELISSE NG APRN.CNP * Telephone Encounter - Jossy Raines LPN - 06/20/2024 3:52 PM EST Patient notified of recommendations, verbalizes understanding of instructions. Pt stated she needs a new Rx for 30 mg Buspar sent to [facility]. Jossy Raines LPN * Telephone Encounter - Ivelisse Ng APRN.CNP - 06/20/2024 3:33 PM EST Can you please call the patient back and let her know that she may use up her BuSpar 15 mg tablets,she may take 2 tablets twice daily which equals the 30 mg BID. If she needs an updated prescriptionI can send in one to her preferred pharmacy. Thank you Ivelisse Ng APRN.FIRE 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 * Telephone Encounter - Tamanna Amaro LPN - 06/20/2024 3:11 PM EST Pt calls to report at appt 06/15/24 [...] advise. Tamanna Amaro LPN documented in this encounterSumma Health [facility]02-17-2025 Telephone encounter Note * Telephone Encounter - Jossy Raines LPN - 06/20/2024 3:52 PM EST Patient notified of recommendations, verbalizes understanding of instructions. Pt stated she needs a new Rx for 30 mg Buspar sent to [facility]. Jossy Raines LPN [facility]02-17-2025 Telephone encounter Note* Telephone Encounter - Ivelisse Ng APRN.CNP - 06/20/2024 3:33 PM EST Can you please call the patient back and let her know that she may use up her BuSpar 15 mg tablets,she may take 2 tablets twice daily which equals the 30 mg BID. If she needs an updated prescriptionI can send in one to her preferred pharmacy. Thank you Ivelisse Ng APRN.FIRE 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 [facility]02-17-2025 Telephone encounter Note* Telephone Encounter - Tamanna Amaro LPN - 06/20/2024 3:11 PM EST Pt calls to report at appt 06/15/24 [...] Please review and advise. Tamanna Amaro LPN [facility]02-12-2025 Instructions* Patient Instructions* Ivelisse Ng APRN.[facility] - 06/15/2024 1:16 PM EST Stop Prozac, start Zoloft 50 mg daily. May increase BuSpar 30 mg twice daily. Recommend establishing care with counselor. Follow up in 2 weeks. documented in this encounterSumma Health W[facility]02-12-[facility]25 History of Present illness Narrative* Ivelisse Ng APRN.[facility] - 06/15/2024 11:00 AM EST Chief Complaint Patient presents with: Medication Problem: Increased anxiety This Team Access Model encounter involved medical decision making outside of a scheduled office visit. Patient was offered a virtual/telemedicine appointment in lieu of an office visit due to recommendations to reduce patient exposure to COVID-19. Video was used for evaluation of this patient. Patient agrees to the visit: Yes Patient Location: [place] I have communicated my name and active licensure. The patient's identity and physical location wereverified at the time of this visit. Either the patient or their legal canvas products sales representative has been informed of the risks and benefits of -- and alternatives to -- treatment through a remote evaluation andconsents to proceed with the evaluation remotely. HPI [...] mouth once daily. Take along with additional 20mg capsule LINZESS 145 mcg capsule Take 1 capsule by mouth once daily. FLUoxetine (PROZAC) 20 mg capsule Take 1 capsule by mouth once daily. Take along with additional 40mg capsule esomeprazole (NEXIUM) 40 mg capsule Take [...] minutes This note was partially generated using Tideway voice recognition system. Note was reviewed for accuracy. There may be minor misspellings or grammar miscues with Tideway voice recognition. documented in this encounterSumma Health W[facility]02-12-2025 NoteHNO ID: [id number] Author: IVELISSE NG APRN.CNP Service: ? Author [...] agrees to the visit: Yes Patient Location: [place] I have communicated my name and active licensure. The patient's identity and physical location were verified at the time of this visit. Either the patient or their legal canvas products sales representative has been informed of the risks [...] dizziness Mood: Increased sadness and anxiety EXAM: [facility] 05/13/2024 (Exact Date) Limited exam as visit [...] Attitude - cooperative, easil (more content not included)...[facility]01-10-2025 NoteHNO ID: [id number] Author: TERRELL CLOUD APRN.FIRE 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 Service: ? Author Type: Nurse Practitioner Type: [...] - PREDNISONE 10 MG TABLET Terrell Cloud APRN.FIRE 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 This note was partly generated using Tideway voice recognition dictation and may contain some misspelled or inaccurate words missed on review.[facility]01-10-2025 History of Present illness Narrative* Terrell Cloud APRN.FIRE 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 - 05/13/2024 1:34 PM EST Chief Complaint Patient presents with: Headache: X [...] - PREDNISONE 10 MG TABLET Terrell Cloud APRN.CNP This note was partly generated using [employer] voice recognition dictation and may contain some misspelled or inaccurate words missed on review. documented in this encounterSumma Health W[facility]01-10-2025 NoteHNO ID: [id number] Author: ELAYNE SEVERINO APRN.CNP Service: ? Author Type: Nurse Practitioner Type: Progress Notes Filed: 05/13/2024 10:22 Note Text: Jnaet Frank is a 24 year old female [...] transfusion after due to CBC of 3. 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 Elayne Severino APRN.[facility] Medical Decision Making: Problems: Low: Acute, uncomplicated illness or injury Risk: Low: Low risk from testing/treatment Medical Decision Making Level: 3 - LowPar[facility]01-[facility]-2025 History of Present illness Narrative* Elayne Severino APRN.[facility] - 05/13/2024 9:45 AM EST Janet Frank is a 24 year old [...] transfusion after due to CBC of 3. Drag Out Worker History LMP: 05/13/2024 (Exact Date), Having periods Age at Menarche: Age at First : Age at Menopause: Drag Out Worker History Comments: Sexual Activity: Yes; Male Contraception: [...] mouth once daily. Take along with additional 20mg capsule LINZESS 145 mcg capsule Take 1 capsule by mouth once daily. FLUoxetine (PROZAC) 20 mg capsule Take 1 capsule by mouth once daily. Take along with additional 40mg capsule Drospirenone-Ethinyl Estradiol (PRANEETH, 28,) 3-0.02 mg per tablet Take 1 tablet by mouth once daily for 28 days. esomeprazole (NEXIUM) 40 mg capsule Take 1 capsule by mouth twice daily. 1/2 hr before meal. albuterol HFA (VENTOLIN HFA) 90 mcg/actuation inhaler Inhale 2 Puffs as instructed every 4 hours asneeded for wheezing/shortness of breath. (Patient not taking: [...] kits Follow up as needed. Elayne Severino APRN.FIRE 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 Medical Decision Making: Problems: Low: Acute, uncomplicated illness or injury Risk: Low: Low risk from testing/treatment Medical Decision Making Level: 3 - Low documented in this encounterSumma Health W[facility]12-12-2024 NoteHNO ID: [id number] Author: KENNETH MCKEON APRN.CIERRA Service: ? Author [...] of motion. Lymphadenopathy: Cervical (more content not included)...[facility]12-12-2024 History of Present illness Narrative* Kenneth Mckeon APRN.FIRE 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 - 04/14/2024 12:09 PM EST Subjective HPI Nontoxic-appearing female presents urgent care chief complaint sore throat headache body aches chills cough fatigue. Duration of symptoms 3 days. Associate symptoms listed above. OTC medications nonetoday. Sick contact family members. Most bothersome symptom today is fatigue. Denies any chest painshortness of breath pleuritic pain hemoptysis change in [...] mouth once daily. Take along with additional 20mg capsule LINZESS 145 mcg capsule Take 1 capsule by mouth once daily. FLUoxetine (PROZAC) 20 mg capsule Take 1 capsule by mouth once daily. Take along with additional 40mg capsule esomeprazole (NEXIUM) 40 mg capsule Take 1 capsule by mouth twice daily. 1/2 hr before meal. Drospirenone-Ethinyl Estradiol (PRANEETH, 28,) 3-0.02 mg per tablet Take 1 tablet by mouth once daily for 28 days. albuterol HFA (VENTOLIN HFA) 90 mcg/actuation inhaler Inhale 2 Puffs as instructed every 4 hours asneeded for wheezing/shortness of breath. (Patient not taking: [...] of care. This note was generated using Tideway software. It may contain errors in wording, punctuation, or spelling. Kenneth Mckeon APRN.FIRE 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 documented in this encounterSumma Health W[facility]11-19-2024 Telephone encounter Note * Telephone Encounter - Terrell Cloud APRN.CNP - 03/22/2024 9:26 AM EST The following approved medication requests have been transmitted electronically. Requested Prescriptions Pending Prescriptions Disp Refills levothyroxine (SYNTHROID) 50 mcg tablet 30 tablet 11 Sig: Take 1 tablet by mouth once daily. Terrell Cloud APRN.CNP [facility]11-19-2024 Miscellaneous Notes* Telephone Encounter - Terrell Cloud APRN.CNP - 03/22/2024 9:26 AM EST The following approved medication requests have been transmitted electronically. Requested Prescriptions Pending Prescriptions Disp Refills levothyroxine (SYNTHROID) 50 mcg tablet 30 tablet 11 Sig: Take 1 tablet by mouth once daily. Terrell Cloud APRN.CNP * Telephone Encounter - Madina Duke LPN - 03/22/2024 9:18 AM EST The patient has been identified by name [...] 22, 2024 9:18 AM documented in this encounterSumma Health W[facility]11-19-2024 Telephone encounter Note * Telephone Encounter - Madina Duke LPN - 03/22/2024 9:18 AM EST The patient has been identified by name [...] Duke LPN March 22, 2024 9:18 AM [facility]09-20-2024 History of Present illness Narrative* Ivelisse Ng APRN.FIRE 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 - 01/22/2024 10:00 AM EDT This is a 23 year old female [...] start OCP, was on depo in the past.Concerned about weight gain. Pap:November, normal. Vaccines: Due [...] 2 Puffs as instructed every 4 hours asneeded for wheezing/shortness of breath. No current facility-administered [...] and patient voices understanding. Ivelisse Ng APRN.CNP This note was partially generated using Tideway voice recognition system. Note was reviewed for accuracy. There may be minor misspellings or grammar miscues with Tideway voice recognition. documented in this encounterSumma Health W[facility]09-20-2024 Instructions* Patient Instructions* Ivelisse Ng APRN.CNP - 01/22/2024 9:43 AM EDT Increase Prozac 60 mg daily Continue to take all medication as prescribed Start Praneeth, take daily to help with periods. Continue to work on eating a healthy diet, increase protein, veggies, and get some form of exercise Due Dtap Follow up in 1 month Health Promotion: - Eat healthy -- go to [facility].gov to get started - Have a yearly [...] drive - Wear sunscreen documented in this encounterSumma Health W[facility]09-19-2024 Telephone encounter Note * Telephone Encounter - Lyric Jaquez MA - 01/21/2024 12:35 PM EDT Notified via Yun Yun [facility]09-19-2024 Miscellaneous Notes* Telephone Encounter - Lyric Jaquez MA - 01/21/2024 12:35 PM EDT Notified via Yun Yun * Telephone Encounter - Terrell Cloud APRN.CNP - 01/20/2024 10:30 AM EDT Please let her know that I have sent in a refill Terrell Cloud APRN.CNP * Telephone Encounter - Jossy Raines LPN - 01/20/2024 10:24 AM EDT Prescription Refill Information The patient has been [...] Raines LPN January 20, 2024 10:24 AM * Telephone Encounter - Koki Knott - 01/20/2024 8:43 AM EDT Patient is schedule for 01-22-24 and wants to know if she has to wait for refills until she is seen?Please let patient know. Thank you. Koki Galan * Telephone Encounter - Lyric Jaquez MA - 01/18/2024 11:48 AM EDT Pt notified via [employer] she needs appt for refills. Advised to call in and schedule. Lyric Jaquez MA documented in this encounterSumma Health W[facility]09-18-2024 Telephone encounter Note * Telephone Encounter - Ivelisse Ng APRN.CNP - 01/20/2024 1:25 PM EDT The following approved medication requests have been transmitted electronically. Requested Prescriptions Pending Prescriptions Disp Refills busPIRone (BUSPAR) 15 mg tablet 90 tablet 0 Sig: Take 1 tablet by mouth three times a day. FLUoxetine (PROZAC) 40 mg capsule 30 capsule 0 Sig: Take 1 capsule by mouth once daily. Ivelisse Ng APRN.CNP [facility]09-18-2024 Miscellaneous Notes* Telephone Encounter - Ivelisse Ng APRN.CNP - 01/20/2024 1:25 PM EDT The following approved medication requests have been transmitted electronically. Requested Prescriptions Pending Prescriptions Disp Refills busPIRone (BUSPAR) 15 mg tablet 90 tablet 0 Sig: Take 1 tablet by mouth three times a day. FLUoxetine (PROZAC) 40 mg capsule 30 capsule 0 Sig: Take 1 capsule by mouth once daily. Ivelisse Ng APRN.CNP documented in this encounterSumma Health Wad[facility] - [facility]09-18-2024 Telephone encounter Note * Telephone Encounter - Terrell Cloud APRN.CNP - 01/20/2024 10:30 AM EDT Please let her know that I have sent in a refill Terrell Cloud APRN.CNP [facility]09-18-2024 Telephone encounter Note* Telephone Encounter - Jossy Rianes LPN - 01/20/2024 10:24 AM EDT Prescription Refill Information The patient has been [...] Raines LPN January 20, 2024 10:24 AM [facility]09-18-2024 Telephone encounter Note* Telephone Encounter - Koki Knott - 01/20/2024 8:43 AM EDT Patient is schedule for 01-22-24 and wants to know if she has to wait for refills until she is seen?Please let patient know. Thank you. Koki Galan [facility]09-16-2024 Telephone encounter Note* Telephone Encounter - Lyric Jaquez MA - 01/18/2024 11:48 AM EDT Pt notified via Yun Yun she needs appt for refills. Advised to call in and schedule. Lyric Jaquez MA [facility]09-12-2024 Telephone encounter Note* Telephone Encounter - Arina Sorenson RN - 01/14/2024 3:38 PM EDT Left message for patient to call office again. I did leave detail that I moved her appt to 1130 tomorrow and to call back to let office know that works. [employer] message sent too. Arina Sorenson RN [facility]09-12-2024 Miscellaneous Notes* Telephone Encounter - Arina Sorenson RN - 01/14/2024 3:38 PM EDT Left message for patient to call office again. I did leave detail that I moved her appt to 1130 tomorrow and to call back to let office know that works. [employer] message sent too. Arina Sorenson RN * Telephone Encounter - Arina Sorenson RN - 01/14/2024 12:04 PM EDT She is scheduled for virtual visit with tomorrow at 1245 and provider has a meeting. Left message for patient to call office to reschedule. Can use any other open time with RM tomorrow and keep asvirtual visit still. Arina Sorenson RN documented in this encounterSumma Health W[facility]09-12-2024 Telephone encounter Note * Telephone Encounter - Arina Sorenson RN - 01/14/2024 12:04 PM EDT She is scheduled for virtual visit with RM tomorrow at 1245 and provider has a meeting. Left message for patient to call office to reschedule. Can use any other open time with RM tomorrow and keep asvirtual visit still. Arina Sorenson RN [facility]07-23-2024 History of Present illness Narrative* Elayne Severino APRN.[facility]ER[facility] - 11/24/2023 4:30 PM EDT VIRTUAL VISIT PROGRESS NOTE This is a virtual visit using [employer] Zoom Video Visit. It required patient- provider interaction for the medical decision making as documented below. I have communicated my name and active licensure. The patient's identity and physical location wereverified at the time of this visit. Either the patient or their legal canvas products sales representative has been informed of the risks and benefits of -- and alternatives to -- treatment through a remote evaluation andconsents to proceed with the evaluation remotely. Janet Frank is a 23 year old female seen for US results. US shows adenomyosis, results reviewed. Pt would to get , current partner is not the FOB of her other child, current partner has nochildren. HISTORY REVIEWED (electronic chart updated): PAST MEDICAL [...] 2 Puffs as instructed every 4 hours asneeded for wheezing/shortness of breath. No current facility-administered medications for this visit. ALLERGIES No Known Allergies REVIEW OF SYSTEMS: PROFILING MACHINE OPERATOR: denies abnormal vaginal bleeding, no vaginal discharge [...] which included preparing to see the patient, [id number] patient care, completing clinical documentation, obtaining and/or reviewing separately obtained history, and counseling and educating the patient/family/caregiver Elayne Severino APRN.CIERRA documented in this encounterSumma Health W[facility]07-22-2024 Telephone encounter Note * Telephone Encounter - Vincent Hale RN - 11/23/2023 2:48 PM EDT Pt notified and appt scheduled to discuss results further. Vincent Hale RN [facility]07-22-2024 Miscellaneous Notes* Telephone Encounter - Vincent Hale RN - 11/23/2023 2:48 PM EDT Pt notified and appt scheduled to discuss results further. Vincent Hale RN * Telephone Encounter - Vincent Hale RN - 11/23/2023 2:15 PM EDT Left message for patient to call office. Sentrinsict message also went to patient. Vincent Hale RN * Telephone Encounter - Elayne Severnio APRN.CNP - 11/23/2023 1:16 PM EDT Please let the pt know that her US does not show polycystic ovaries but does show adenomyosis. If she wants to discuss the results more she can schedule a virtual/office visit. Elayne Severino APRN.CIERRA * Telephone Encounter - Steffanie Lozada RN - 11/20/2023 11:01 AM EDT Please review Pelvic US results. Patient called. RM was not the original ordering provider, but patient states she is no longer seeing that provider. Aware RM is out of office today. Steffanie Lozada RN documented in this encounterSumma Health Wad[facility]07-22-2024 Telephone encounter Note * Telephone Encounter - Vincent Hale RN - 11/23/2023 2:15 PM EDT Left message for patient to call office. Mychart message also went to patient. Vincent Hale RN [facility]07-22-2024 Telephone encounter Note* Telephone Encounter - Elayne Severino APRN.CNP - 11/23/2023 1:16 PM EDT Please let the pt know that her US does not show polycystic ovaries but does show adenomyosis. If she wants to discuss the results more she can schedule a virtual/office visit. Elayne Severino APRN.CIERRA [facility]07-19-2024 Telephone encounter Note* Telephone Encounter - Steffanie Lozada RN - 11/20/2023 11:01 AM EDT Please review Pelvic US results. Patient called. RM was not the original ordering provider, but patient states she is no longer seeing that provider. Aware RM is out of office today. Steffanie Lozada RN [facility]07-18-2024 History of Present illness Narrative* Radha Tejada MD - 11/19/2023 11:18 PM EDT The patient presents for requested ultrasound. Full report available in the Imaging tab in Epic. Radha Tejada MD documented in this encounterSumma Health W[facility]07-15-2024 Telephone encounter Note * Telephone Encounter - Ivelisse Ng APRN.CNP - 11/16/2023 8:28 AM EDT The following approved medication requests have been transmitted electronically. Requested Prescriptions Pending Prescriptions Disp Refills busPIRone (BUSPAR) 15 mg tablet 90 tablet 0 Sig: Take 1 tablet by mouth three times a day. Ivelisse Ng APRN.CNP [facility]07-15-2024 Miscellaneous Notes* Telephone Encounter - Ivelisse Ng APRN.CNP - 11/16/2023 8:28 AM EDT The following approved medication requests have been transmitted electronically. Requested Prescriptions Pending Prescriptions Disp Refills busPIRone (BUSPAR) 15 mg tablet 90 tablet 0 Sig: Take 1 tablet by mouth three times a day. Ivelisse Ng APRN.CNP * Telephone Encounter - Jossy Raines LPN - 11/16/2023 8:21 AM EDT [facility]-08/26/22 Labs-06/17/23 NOV- chart message sent to schedule appt. Jossy Raines LPN documented in this encounterSumma Health W[facility]07-15-2024 Telephone encounter Note * Telephone Encounter - Jossy Raines LPN - 11/16/2023 8:21 AM EDT [facility]-08/26/22 Labs-06/17/23 NOV- chart message sent to schedule appt. Jossy Raines LPN [facility]07-11-2024 Telephone encounter Note* Telephone Encounter - Elayne Severino APRN.CNP - 11/12/2023 2:59 PM EDT I spoke with the patient regarding her recent labs and reviewed them with her. Patient still has a pending order for pelvic ultrasound, I informed her that she can call and schedule that at her convenience. Discussed possible PCOS diagnosis based on elevated DHEA level. Elayne Severino APRN.CNP [facility]07-11-2024 Miscellaneous Notes* Telephone Encounter - Elayne Severino APRN.CNP - 11/12/2023 2:59 PM EDT I spoke with the patient regarding her recent labs and reviewed them with her. Patient still has a pending order for pelvic ultrasound, I informed her that she can call and schedule that at her convenience. Discussed possible PCOS diagnosis based on elevated DHEA level. Elayne Severino APRN.CNP * Telephone Encounter - Arina Sorenson RN - 11/12/2023 1:32 PM EDT Patient also called into office asking for RM to review blood work results from 11/09. She has not heard from Dr. Yoon's office yet either regarding these. Arina Sorenson RN * Telephone Encounter - Anne Martínez - 11/12/2023 12:57 PM EDT Patient would like to speak to someone in [facility] office to go over her lab results. Please call her at [phone]. documented in this encounterSumma Health [facility]07-11-2024 Telephone encounter Note * Telephone Encounter - Arina Sorenson RN - 11/12/2023 1:32 PM EDT Patient also called into office asking for RM to review blood work results from 11/09. She has not heard from Dr. Yoon's office yet either regarding these. Arina Sorenson RN [facility]07-11-2024 Telephone encounter Note* Telephone Encounter - Anselmo AdamaAnne - 11/12/2023 12:57 PM EDT Patient would like to speak to someone in [facility] office to go over her lab results. Please call her at [phone]. [facility]07-11-2024 Telephone encounter Note* Telephone Encounter - Genie Jackson MD - 11/12/2023 9:00 AM EDT OK to refill as ordered Genie Jackson MD [facility]07-11-2024 Miscellaneous Notes* Telephone Encounter - Genie Jackson MD - 11/12/2023 9:00 AM EDT OK to refill as ordered Genie Jackson MD * Telephone Encounter - Tess Vásquez LPN - 11/12/2023 8:35 AM EDT Patient calling has changed pharmacy to [facility], she has been out of medication for [...] 12, 2023 8:38 AM documented in this encounterSumma Health [facility]07-[facility]-2024 Telephone encounter Note * Telephone Encounter - Tess Vásquez LPN - 11/12/2023 8:35 AM EDT Patient calling has changed pharmacy to [facility], she has been out of medication for [...] Vásquez LPN November 12, 2023 8:38 AM [facility]07-09-2024 History of Present illness Narrative* Elayne Severino APRN.FIRE 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 - 11/10/2023 3:35 PM EDT Stress Test Technician offered: Patient declines. Janet is a 23 [...] transfusion after due to CBC of 3. Drag Out Worker History LMP: 11/01/2023, Having periods Age at Menarche: Age at First : Age at Menopause: Drag Out Worker History Comments: Sexual Activity: Yes; Male Contraception: [...] external genitalia normal, normal Bartholin's glands, urethra, [place]'s glands, no vulvar lesions, no cervical lesions, [...] year or sooner as needed Elayne Severino APRN.FIRE 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 documented in this encounterSumma Health [facility]07-03-2024 History of Present illness Narrative* Rohan Yoon MD - 11/04/2023 3:30 PM EDT Gynecology Virtual Visit This is a virtual visit using Blippex[employer] Zoom Video Visit. It required patient- provider interaction for the medical decision making as documented below. I have communicated my name and active licensure. The patient's identity and physical location wereverified at the time of this visit. Either the patient or their legal canvas products sales representative has been informed of the risks and benefits of -- and alternatives to -- treatment through a remote evaluation andconsents to proceed with the evaluation remotely. HPI: [...] 2 Puffs as instructed every 4 hours asneeded for wheezing/shortness of breath. ondansetron orally disintegrating [...] of body weight) to help regular menses. Encouragedregular exercise (separate from work/home activities) of at [...] Gynecologic Surgery Department of Obstetrics and Gynecology [place], [place] 11/04/2023 documented in this encounterSumma Health W[facility]06-05-2024 History of Present illness Narrative* Bhargavi Monique APRN.FIRE 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 - 10/07/2023 11:49 AM EDT This note was created using Get Smart Contentriter. Subjective Janet Frank is a 23 year [...] She states that she returned to the puller out last week to have them taken out, and the puller out said they were not infected. Since then [...] and congestion. She previously followed with ENT whostated she had reduced lubrication in her ear canals. Last time she saw ENT was a couple years ago. States they gave her a cream or ointment which helped with her ear pain. She endorses congestion,chills, diaphoresis, and fatigue. She has not tried any home remedies. There are no known sick contacts. Pertinent negatives: -fever -shortness of breath -chest pain -rhinorrhea -n/v/d -sore throat Pertinent positives: +chills +diaphoresis +fatigue +congestion +productive cough +nipple pain +nipple discharge The history is provided by the patient. No utilization review coordinator was used. Ear Pain This is a [...] 2 Puffs as instructed every 4 hours asneeded for wheezing/shortness of breath. ondansetron orally disintegrating [...] up with ENT. Luba Aguilar TEACHING PROVIDER (Physician/PA/SLIVER LAP 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) NOTE OF PERSONAL INVOLVEMENT IN CARE: I have personally seen and examined the patient and performed the medical decision-making components. I have reviewed the Advanced Practice Registered Nurse (SLIVER LAP 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) Student's documentation and verified the findings in the note as written. Any additions or changes are noted in bold/italics. Signature: Bhargavi Monique Date: 10/07/2023 Time: 1:35 PM documented in this encounterSumma Health W[facility]03-21-2024 Miscellaneous Notes* Telephone Encounter - Lyric Jaquez MA - 07/23/2023 12:23 PM EDT Pt notified. Has appt in September. Lyric Jaquez MA * Telephone Encounter - Ivelisse Ng APRN.CNP - 07/23/2023 12:15 PM EDT The following approved medication requests have been transmitted electronically. Requested Prescriptions Pending Prescriptions Disp Refills FLUoxetine (PROZAC) 40 mg capsule 30 capsule 5 Sig: Take 1 capsule by mouth once daily. Ivelisse Ng APRN.FIRE 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 * Telephone Encounter - Elisa Ashby RN - 07/23/2023 11:48 AM EDT Patient reports she hasn't had fluoxetine for a couple days and is not feeling well and not having a good day. Asking if this can be sent today? HECTOR Rodriguez. Please phone patient to let her know it was sent. [phone] * Telephone Encounter - Lyric Jaquez MA - 07/23/2023 9:51 AM EDT Patient has been identified by name and [...] NEEDS AN APPT. NOTIFIED OF THIS VIA TrackViaT. Please advise. Thank you. Lyric Jaquez MA. documented in this encounterSumma Health W[facility]03-04-2024 Hospital Discharge instructions Patient Education 07/06/2023 01:51:22 Headache, Unspecified Headache, Unspecified A number of things can cause headaches. The cause of your headache isn t clear. But it doesn t seemto be a sign of any serious illness. [...] face You have trouble talking or seeing [id number] [employer]. [address] [place] [address]. All rights reserved. This information is not intended as a substitute for professional medical care. Always follow yourhealthcare professional's instructions. Follow Up Care 07/06/2023 01:12:48 With:GENIE JACKSON MD Address: [address] [place] [address] [id number] When:2-4 days [facility] 03-04-2024 Note Discharge Instructions Thank you for allowing [facility] to assist you with your healthcare needs. The following is importantdischarge information regarding your hospital visit. Diagnosis from Today's Visit Headache Headache What to Do Next Instructions from Your Care Team No qualifying data available. Post Acute Orders No qualifying data available. You Need to Schedule the Following Appointments Follow Up with GENIE JACKSON MD When Within 2-4 days Where: [facility] [place], [place] [id number]- Allergies No Known Medication Allergies Medications Please ask your primary doctor or pharmacist before taking any other medication not listed, including over the counter drugs, herbal medications, vitamins and or supplements as they may interact withyour home medications. Please take this list to [...] isn t clear. But it doesn t seemto be a sign of any serious illness. [...] face You have trouble talking or seeing [id number] [employer]. [address] [place] [address]. All rights reserved. This information is not intended as a substitute for professional medical care. Always follow yourhealthcare professional's instructions. Additional Information VACCINATE! IT SAVES LIVES! Members of the community who have not yet received the COVID-19 vaccine and would like to receive it can visit one of [facility] vaccine clinics. There are many vaccine clinic locations within the [facility]. For locations and available times, please visit www.gettheshot.coronavirus.[place].gov/. It is important to note that some COVID mobile vaccine clinics are held outdoors and may be canceled in rainy or stormy conditions. To learn more about pediatric vaccinations (ages 5-11), we invite you to visit the [facility] webpage. https://www.[email or web address].org/pages/8189-Ksocr-Igbhtkfgnza-Hjmakwnrga-Dktrv-Tnm stions.htmlTo learn more about the COVID-19 vaccine, we invite you to visit the CDC website for a list of frequently asked questions. https://www.cdc.gov/coronavirus/2019-ncov/vaccines/faq.html [facility] Patient Portal Access Instructions: Stay connected with your healthcare team and access your personal medical information anytime with the [facility] Patient Portal. If you would like a full copy of your medical records please contact the [facility] Medical Records Department Thursday through Thursday between 8a.m. and 4:30p.m. Please follow the directions below to access the portal: 1.Access the email account you provided upon registration to the hospital.2.Look for an invitation email from [facility].3.Open the email and access the invitation link: Accept Invitation to [facility]4.Fill in the required gatica to create your account. Sign into [email or web address] with your username and password that you [...] you will allow to register on the [facility] Patient Portal for access to your information. You can also access the [facility] Patient Portal on the [employer]. Simply click on Health Records under [employer] and then click on the [employer] logo. HOW TO SAFELY DISPOSE OF PRESCRIPTION MEDICATIONS Please use one of the following methods to safely dispose of your unused medications. 1.Use a drug disposal kit: the drug disposal pouch allows you to safely discard your old and unuseddrugs. Ask your nurse to give you one when you are discharged.2.Visit a local take-back location: Many local pharmacies and police departments have programs that collect old and unwanted prescriptiondrugs. Call your local pharmacy or go to http://[employer]/1A1Aq7n to find one close to you.3.Make use of household items: Use cat litter or old coffee grounds to dispose medications if other options arenot available. Mix your drugs with these household products, seal them in an airtight container andthrow it into the garbage. Call [facility]: [phone] to be sure your drugs can be [...] drowsiness, such as benzodiazepines, also known as benzos,including diazepam and alprazolam, muscle relaxants or sleep aids. Never sell or share prescriptionopioids. This is illegal. Store opioids in a [...] questions, I am aware that I should contactmy doctor. Patient/Pulmonologist Signature: Date/Time: Relationship to Patient: Witness Name/Signature: Date/Time: [facility]02-29-2024 History of Present illness Narrative * Bhargavi Monique APRN.[facility] - 07/02/2023 8:42 AM EST This note was created using NoteWriter. Subjective Janet Diego Zac is a 23 year old female. 23 [...] R51.9 Bhargavi Monique APRN.[facility] documented in this encounterSumma Health W[facility]02-15-2024 Miscellaneous Notes* Telephone Encounter - Jossy Raines LPN - 06/18/2023 8:26 AM EST Patient notified of results, verbalizes understanding of instructions. Jossy Raines LPN * Telephone Encounter - Ivelisse Ng APRN.CNP - 06/18/2023 7:11 AM EST Can you please call the patient and let her know I reviewed her lab results. was negative. No signs of anemia. Glucose was mildly low. I would recommend that she eat a well-balanced diet. Get adequate amount of protein with each meal. Stay well-hydrated. Please let me know if she has any questions. Thank you. Ivelisse Ng APRN.[facility]ER[facility] documented in this encounterSumma Health W[facility]02-14-2024 Miscellaneous Notes* Telephone Encounter - Jossy Couch RN - 06/17/2023 4:23 PM EST Pt is currently on her way to get her labs drawn. Aware that we will call her once Ivelisse receives the results and reviews them. * Telephone Encounter - Ivelisse Ng APRN.CNP - 06/17/2023 3:53 PM EST Can you please call the patient back and let her know that I have placed some lab orders for her tocomplete. She does not need to fast. I will call her once I review results. Please let me know if she has any additional questions. Thank you. Ivelisse Ng APRN.[facility] * Telephone Encounter - Jossy Couch RN - 06/17/2023 3:16 PM EST Pt calling and asking about getting some bloodwork ordered for possible . Pt states she started having some irregular bleeding last the in the morning. States has had episodes of bleeding off and on since then. Pt states she took a test on the which was negative,took another test yesterday which was positive and two more tests today which were negative. Pt states she had been referred to the PROFILING MACHINE OPERATOR dept but they told her to contact PCP as labwork can be orderedto confirm if or not. In talking with pt, she states she is not trying to get butis not using any protection or control at this time. [facility] she was on the Depoprovera shot for about 6 years but last shot was in July. Pt does not have an established PROFILING MACHINE OPERATOR provider as she used to go to [facility] in [place] but that office has closed. In reviewing [...] for sure will need to establish with [facility]. Pt plans on coming in for lab work tomorrow. Please place order for testing as well as yearly blood work so it can be completed prior to yearly appt next week with Ivelisse Ng. Call pt only if problem, further instructions or needs to be fasting for any labs. documented in this encounterSumma Health W[facility]02-13-2024 Miscellaneous Notes* Telephone Encounter - Lyirc Jaquez Ma - 06/16/2023 4:24 PM EST Pt notified. Lyric Jaquez Ma * Telephone Encounter - Genie Jackson MD - 06/16/2023 3:58 PM EST Yes, she should check with Drag Out Worker Genie Jackson MD * Telephone Encounter - Annemarie Sotelo Ma - 06/16/2023 1:27 PM EST Reviewed with PROFILING MACHINE OPERATOR Nurse, who states she reached out to pt due to TE on 06/12/23. She tried calling ptbut was hung up on. Does pt need to reach out to PROFILING MACHINE OPERATOR to schedule an appt? Please advise. Annemarie Sotelo Ma * Telephone Encounter - Luisana Snow - 06/16/2023 1:02 PM EST Janet is calling Genie Jackson MD today with concern regarding Patient Request for a test. Patient took a home test and it was positive. Patient has been identified by name and birthdate. Duration of symptoms: N/A Person calling: self Call patient at: on cell [phone] (cell) Was an appointment scheduled: No Closing statement: Results or non-symptom based questions: Thank you for calling [facility], your call will be returned within the next business day. Luisana Snow documented in this encounterSumma Health Wadsworth - [facility]02-09-2024 Miscellaneous Notes* Telephone Encounter - Elisa Ashby, RN - 06/12/2023 8:43 AM EST Patient phoned to report she thinks she is having implantation bleeding last 2 days. Reports she thinks she is - although home test yesterday was negative. Reports yesterday is 14 days since she has had sex. Reports she stopped control in November. Reports yesterday had crampingthen light bleeding, and blood is not in urine. Reports this morning at 6 am she had cramping and has light bleeding that hasn't stopped yet. Notified nurse Zulema, in PROFILING MACHINE OPERATOR, and Zulema agreeable to call patient. documented in this encounterSumma Health Wadsworth - [facility] Center11-30-2023 Miscellaneous Notes* Telephone Encounter - Terrell Cloud APRN.CNP - 04/02/2023 8:27 AM EST The following approved medication requests have been transmitted electronically. Requested Prescriptions Pending Prescriptions Disp Refills busPIRone (BUSPAR) 15 mg tablet 90 tablet 5 Sig: Take 1 tablet by mouth three times a day. Terrell Cloud APRN.CNP * Telephone Encounter - Lyric Jaquez Ma - 04/02/2023 8:25 AM EST Last office visit: 08/26/22 F/u scheduled: none Lyric Jaquez Ma documented in this encounterSumma Health Wadsworth - [facility]itt[facility] Center11-24-2023 Miscellaneous Notes* Telephone Encounter - Genie Jackson MD - 03/27/2023 10:56 AM EST OK to refill as ordered Genie Jackson MD * Telephone Encounter - Jossy Raines LPN - 03/27/2023 8:58 AM EST [facility]-08/26/22 Labs-10/22/22 NOV-none Jossy Raines LPN documented in this encounterSumma Health Wadsworth - [facility] Center09-13-2023 Miscellaneous Notes* Telephone Encounter - Terrell Cloud APRN.FIRE 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 - 01/14/2023 11:39 AM EDT The following approved medication requests have been [...] Patient should contact Prescriber first Terrell Cloud APRN.FIRE 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 * Telephone Encounter - Jeana Frey RN - 01/14/2023 8:25 AM EDT Last Office Visit: 08/26/2022 Future Office Visit: [...] of Last Labs: 10/22/2022 documented in this encounterSumma Health Wadsworth - [facility] Center06-01-2023 Miscellaneous Notes* Telephone Encounter - Hailey Gillespie RN - 10/02/2022 12:38 PM EDT Spoke with patient. Given message from provider's office. Patient verbalizes understanding. Offeredto schedule appointment. She says she will schedule on My Chart. Hailey Gillespie RN * Telephone Encounter - Lyric Jaquez Ma - 10/02/2022 11:36 AM EDT Message left for pt to call back. Ok to schedule with Ivelisse Ng or Terrell Cloud in 7-10 days tof/u UTI per PCP. Lyric Jaquez Ma * Telephone Encounter - Genie Jackson MD - 10/02/2022 11:32 AM EDT She should be seen back in 7-10 days to have her urine rechecked Genie Jackson MD * Telephone Encounter - Hailey Gillespie RN - 10/01/2022 2:16 PM EDT Patient was seen in [facility] yesterday for possible UTI. She received results today and was told she had blood in her urine and should follow up with PCP. She is asking if and when she should be seen in the office? She is going to finish the course of Macrobid. Hailey Gillespie RN documented in this encounterSumma Health Wadsworth - [facility] Center05-30-2023 History of Present illness Narrative* Ruth Vallejo PA-C - 09/30/2022 2:04 PM EDT This note was created using Get Smart Contentriter. Subjective Janet Frank is a 22 year [...] years, denies chance of . She denies anynew sexual partners, has been with the same [...] 2 Puffs as instructed every 4 hours asneeded for wheezing/shortness of breath. 1 Inhaler 0 ondansetron orally disintegrating (ZOFRAN ODT) 4 mg disintegrating tablet Take 1 tablet by mouth every 6 hours as needed for nausea/vomiting. 12 tablet 0 METHYLPREDNISOLONE ACETATE (DEPO-MEDROL INJECTION) by INJECTION(UNSPECIFIED PARENTERAL ROUTES) route. nitrofurantoin monohydrate and macrocrystal (MACROBID) 100 mg capsule Take 1 capsule by mouth twicedaily with meals for 5 days. 10 capsule [...] is no right CVA tenderness, left CVA tendernessor guarding. Skin: General: Skin is warm and [...] CULTURE Ruth Vallejo PA-C documented in this encounterSumma Health Wadsworth - [facility]05-06-2023 History of Present illness Narrative* Marjorie Sanchez APRN.FIRE 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 - 09/06/2022 1:35 PM EDT Patient came in with complaints of confusion dizziness nausea tingling in her hands and her fingersand hands turning a bluish-purple color. Patient's hands [...] with this care plan. documented in this encounterSumma Health Wadsworth - [facility] Center04-25-2023 Instructions* Patient Instructions* Terrell Cloud APRN.CNP - 08/26/2022 1:33 PM EDT Schedule EMG, if positive for carpal tunnel syndrome, I will refer to Dr Walton Recheck potassium at end of week Terrell Cloud APRN.CNP documented in this encounterSumma Health Wadsworth - [facility] Center04-25-2023 History of Present illness Narrative* Terrell Cloud APRN.CNP - 08/26/2022 1:14 PM EDT Chief Complaint Patient presents with: ER F/U: 08/22/22 [facility]; abdominal pain HPI Janet Frank is a 22 year old female who presents here today for ER Follow Up. HOSPITAL/ER FOLLOW UP: Reason for visit: Abdominal pain, nausea and vomiting. Vomiting occurring after consuming meals. Also loose stools. Concerned due to being on penicillin for mouth infection. Which facility: [facility] Date of visit: 08/22/2022 Diagnosis: 1. Abdominal pain, vomiting, hypokalemia Testing done: UA positive for protein and ketones, potassium 2.9 WBCs 10.8, lipase 16 CT of abdomenand pelvis with IV contrast showed no acute findings. Treatment given: Discharged with K-tab 20 mEq, twice daily for 5 days for hypokalemia. She is on her last day of this replacement. Current symptoms: At this time, the patient, she is doing okay. No nausea or vomiting. No fevers orchills. Able to move get back to normal [...] a brace at night. Xray of the leftand right wrist within 5 years are normal. She perform exercises a lot. Depression Screening 01/09/2021 03/02/2021 04/05/2021 08/26/2022 PHQ-2 Score 4 0 0 0 PHQ-9 Score 13 0 4 - Depression screening tool completed and reviewed. Based on score and interview, patient is not at risk for depression. Screening tool discussed with patient, and I recommended no further interventionat this time. Past medical history, appointments, medications, [...] in the past 5 years that were normal.Exam was positive. Get EMG. Continue to wear cock-up splint nightly and as needed during the day. Continue with stretches. If positive can send to orthopedics for second opinion and treatment. - EMG(NEURO/NI) 5. Hand pain, left - ICD9: 729.5, ICD10: M79.642 -See #4 - EMG(NEURO/NI) Terrell Cloud APRN.CNP I spent a total of 33 minutes on the date of the service which included preparing to see the patient, [id number] patient care, completing clinical documentation, obtaining and/or reviewing separately obtained history, performing a medically appropriate examination, counseling and educating the pat ient/family/caregiver, and ordering medications, tests, or procedures. This note was partly generated using Tideway voice recognition dictation and may contain some misspelled or inaccurate words missed on review. documented in this encounterSumma Health [facility]03-28[facility]23 Miscellaneous Notes* Telephone Encounter - Chaya Reid MA - 07/29/2022 9:30 AM EDT Patient phones requesting refills as follows: Requested Prescriptions Pending Prescriptions Disp Refills esomeprazole (NEXIUM) 40 mg capsule 60 capsule 1 Sig: Take 1 capsule by mouth twice daily. 1/2 hr before meal. Please review and advise. Chaya Reid MA documented in this encounterSumma Health Wad[facility]03-22-2023 Miscellaneous Notes* Telephone Encounter - Terrell Cloud APRN.CNP - 07/23/2022 2:38 PM EDT The following approved medication requests have been transmitted electronically. Requested Prescriptions Pending Prescriptions Disp Refills busPIRone (BUSPAR) 15 mg tablet 90 tablet 5 Sig: Take 1 tablet by mouth three times daily. Terrell Cloud APRN.CNP * Telephone Encounter - Sonia Tamayo LPN - 07/23/2022 2:32 PM EDT Patient has been identified by name and date of : Yes Patient phones for refill(s): Requested Prescriptions Pending Prescriptions Disp Refills busPIRone (BUSPAR) 15 mg tablet 90 tablet 5 Sig: Take 1 tablet by mouth three times daily. Date of last office visit in primary care: 02/12/2022 Please advise. Thank you. Sonia Tamayo LPN documented in this encounterSumma Health Wad[facility]01-05-2023 Miscellaneous Notes* Telephone Encounter - Maria Ines Henning Ma - 05/08/2022 9:00 AM EST Patient phones requesting refills as follows: Requested Prescriptions Pending Prescriptions Disp Refills esomeprazole (NEXIUM) 40 mg capsule 60 capsule 1 Sig: Take 1 capsule by mouth twice daily. 1/2 hr before meal. Please review and advise. Maria Ines Henning Ma documented in this encounterSumma Health Wad[facility]11-04-2022 History of Present illness Narrative* Genie Jackson MD - 03/07/2022 3:26 PM EDT Chief Complaint Patient presents with: Medication Follow-up HPI: This Team Access Model visit is a virtual encounter. It required patient- provider interaction for the medical decision making as [...] 2 Puffs as instructed every 4 hours asneeded for wheezing/shortness of breath. ondansetron orally disintegrating [...] Past Histories independently gathered by the clinical support analyst and the remaining scribed note accurately describes my personal service to the patient. Genie Jackson MD The documentation for this note was completed by Lyric Jaquez Ma acting as scribe for Genie Jackson MD. March 07, 2022 3:26 PM. Lyric Jaquez Ma documented in this encounterSumma Health W[facility]10-17-2022 Miscellaneous Notes* Telephone Encounter - Maria Ines Henning Ma - 02/17/2022 8:02 AM EDT Patient phones requesting refills as follows: Requested Prescriptions Pending Prescriptions Disp Refills esomeprazole (NEXIUM) 40 mg capsule 60 capsule 1 Sig: Take 1 capsule by mouth twice daily. 1/2 hr before meal. Please review and advise. Maria Ines Henning Ma documented in this encounterSumma Health W[facility]10-12-2022 History of Present illness Narrative* Michelle Hayes, SLIVER LAP 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 - 02/12/2022 2:04 PM EDT 02/12/2022 Patient presents with: Ear Problem: Pain [...] congestion and cough. Denies hx of ear in fections, fevers, muscle aches, SOB, dyspnea, loss of [...] 2 Puffs as instructed every 4 hours asneeded for wheezing/shortness of breath. ondansetron orally disintegrating [...] MG-POTASSIUM CLAVULANATE 125 MG TABLET Michelle Hayes APRN.FIRE 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 Prescription instructions reviewed with patient as applicable. [...] which included preparing to see the patient, [id number] patient care, completing clinical documentation, obtaining and/or reviewing separately obtained history, performing a medically appropriate examination, counseling and educating the pat ient/family/caregiver, and ordering medications, tests, or procedures. documented in this encounterSumma Health Wad[facility]10-05-2022 History of Present illness Narrative* Ruth Vallejo PA-C - 02/05/2022 12:21 PM EDT This note was created using Get Smart Contentriter. Subjective Janet Frank is a 22 year [...] ophthalmic solution Use 2 Drops in both eyesevery 4 hours for 7 days. 10 mL [...] 2 Puffs as instructed every 4 hours asneeded for wheezing/shortness of breath. 1 Inhaler 0 [...] worsen. Ruth Vallejo PA-C documented in this encounterCleveland [id number] History of Present illness Narrative* Ruth Vallejo PA-C - 02/02/2022 11:58 AM EDT This note was created using Get Smart Contentriter. Subjective Janet Frank is a 22 year old female. HPI Patient presents with cough and congestion over the past 5 days. She has had eye drainage and redness over the past day. Her son has similar symptoms. No fever. No vomiting. Sometimes it does hurt inher chest when she coughs. No diarrhea. She [...] 2 Puffs as instructed every 4 hours asneeded for wheezing/shortness of breath. 1 Inhaler 0 [...] ophthalmic solution Use 2 Drops in both eyesevery 4 hours for 7 days. 10 mL [...] persist. MELVIN Huber PA-C documented in this encounterSumma Health Wad[facility]08-23-2022 History of Present illness Narrative* Ruth Vallejo PA-C - 12/24/2021 4:51 PM EDT This note was created using Get Smart Contentriter. Subjective aJnet Frank is a 21 year old female. HPI Patient presents with left wrist pain for 2 months. 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 She denies [...] 2 Puffs as instructed every 4 hours asneeded for wheezing/shortness of breath. 1 Inhaler 0 [...] up splint applied. Prednisone sent in. Ice, rest,if not helen rin 2 weeks follow up with pcp. - XR WRIST INJURY 4V PA/LAT/OBL/SCAPH LEFT Ruth Vallejo PA-C documented in this encounterSumma Health Wadsworth [facility]08-23-2022 History of Present illness Narrative* Xavier Gonzales RT(R) - 12/24/2021 2:30 PM EDT Radiology Service Progress Note PATIENT NAME: Janet Frank DATE OF SERVICE: December 24, 2021 TIME: 2:25 PM PATIENT IDENTITY VERIFICATION COMPLETED USING TWO (2) IDENTIFIERS: Name and Date of confirmedby patient verbally. FALL SCREENING: Has the patient had 2 falls in the last year or 1 fall with injury or currently using an Ambulatory Assistive Device (Walker, Cane, Wheelchair, Crutches, etc.)? No PATIENT GENDER DATA: Female. status: : No status: NO. PATIENT RELEVANT IMPLANT DATA REVIEWED: Not Applicable RADIOLOGY DEPARTMENT: General X-ray: Exam(s) Completed: Upper Extremity X- Ray(s): Wrist, left PERIPHERAL IV DATA: Not applicable SIGNED BY: RT Denis(R) December 24, 2021 2:25 PM documented in this encounterSumma Health Wad[facility]08-23-2022 Miscellaneous Notes* Telephone Encounter - Madina Duke LPN - 12/24/2021 9:17 AM EDT Please review and advise pt. PT is out of medication. Madina Duke LPN * Telephone Encounter - Anastasia Berg - 12/18/2021 12:45 PM EDT Patient has been out of medication for past 3 days. documented in this encounterSumma Health Wad[facility]08-04-2022 Miscellaneous Notes* Telephone Encounter - Lyric Jaquez Ma - 12/05/2021 9:20 AM EDT Pt notified and voiced understanding. Lyric Jaquez Ma * Telephone Encounter - Terrell Cloud APRN.CNP - 12/05/2021 7:31 AM EDT Patient may take Prozac and Tizanidine together. Terrell Cloud APRN.CNP * Telephone Encounter - Anastasia Berg - 12/04/2021 3:23 PM EDT Janet Frank is calling Genie Jcakson MD today asking if she can take the Prozac and tizanidine together? Please advise and return her call at [phone] documented in this encounterSumma Health Wad[facility]07-27-2022 Miscellaneous Notes* Telephone Encounter - Terrell Cloud APRN.CNP - 11/27/2021 8:26 AM EDT The following approved medication requests have been transmitted electronically. Pending Prescriptions Disp Refills BUSPIRONE 15 MG TABLET 90 tablet 5 Sig: Take 1 tablet by mouth three times daily. ROSA: No Terrell Cloud APRN.CNP * Telephone Encounter - Jossy Raines LPN - 11/27/2021 8:22 AM EDT Patient phones requesting refills as follows: Pending Prescriptions Disp Refills BUSPIRONE 15 MG TABLET 90 tablet 5 Sig: Take 1 tablet by mouth three times daily. ROSA: No [facility]RIAM-11/26/21 Labs-09/26/21 NOV-none med filled 04/23/21 Please review and advise. Jossy Raines LPN documented in this encounterSumma Health Wad[facility]07-26-2022 History of Present illness Narrative* Genie Jackson MD - 11/26/2021 11:40 AM EDT Chief Complaint Patient presents with: Depression HPI:This Team Access Model visit is a virtual encounter. It required patient- provider interaction for the medical decision making as [...] had these in the past. Working at [employer]. Thyroid: Taking Synthroid 50 mcg daily. TSH [...] 2 Puffs as instructed every 4 hours asneeded for wheezing/shortness of breath. ondansetron orally disintegrating [...] AM. Lyric Jaquez Ma documented in this encounterSumma Health Wad[facility]05-25-2022 Miscellaneous Notes* Telephone Encounter - Annemarie Sotelo Ma - 09/25/2021 3:47 PM EDT See pt message and advise. Annemarie Sotelo Ma documented in this encounterSumma Health Wad[facility]05-25-2022 History of Present illness Narrative* Cori Ramesh APRN.CIERRA - 09/25/2021 2:45 PM EDT NEW VIRTUAL VISIT I had a virtual visit with Ms. Frank today for evaluation of GERD symptoms. Last EGD 10/2017 for GERD symptoms-erythematous duodenopathy gastritis nonsevere esophagitis Last colonoscopy 10/2017 for symptoms of constipation-entire colon was normal repeat colonoscopy forscreening purposes at the age of 43 HISTORY: [...] 2 Puffs as instructed every 4 hours asneeded for wheezing/shortness of breath. 1 Inhaler 0 [...] which included preparing to see the patient, [id number] patient care, completing clinical documentation, obtaining and/or reviewing separately obtained history, performing a medically appropriate examination, counseling and educating the pat ient/family/caregiver, ordering medications, tests, or procedures, communicating with other HCPs (not separately reported), independently interpreting results (not separately reported), communicatingresults to the patient/family/caregiver, and care coordination (not separately reported). Cori Ramesh APRN.CIERRA documented in this encounterSumma Health W[facility]05-19-2022 Miscellaneous Notes* Telephone Encounter - Jossy Raines LPN - 09/19/2021 3:41 PM EDT Patient notified of referral, verbalizes understanding of instructions. Jossy Raines LPN * Telephone Encounter - Genie Jackson MD - 09/19/2021 3:24 PM EDT Ok tor refer as requested Genie Jackson MD * Telephone Encounter - Kendra Oviedo RN - 09/19/2021 2:20 PM EDT Patient calls to request a referral to gastroenterology. Patient reports that she has acid indigestion with a lot of burning sensation and burping. Denies chest pain or shortness of breath. She reports that it is causing her to have a dry sore throat with itchy ear? She reports she has been treatedfor same symptoms with an antibiotic in the past with no relief. She had a scope done (2018) and was told it was because she has such bad GERD per patient. Currently taking Nexium daily with no missed doses and no relief. Order pended for review. Kendra Oviedo RN documented in this encounterSumma Health Wad[facility]05-17-2022 History of Present illness Narrative* Terrell Cloud APRN.FIRE 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 - 09/17/2021 1:54 PM EDT Chief Complaint Patient presents with: Swollen Tonsils [...] 2 Puffs as instructed every 4 hours asneeded for wheezing/shortness of breath. METHYLPREDNISOLONE ACETATE (DEPO-MEDROL [...] in no acute distress, well-hydrated, well nourished. andOverweight. Head: Normocephalic, no masses, lesions, tenderness or abnormalities. Nose/Sinuses: Nares normal, septum midline, mucosa normal, no drainage or sinus tenderness. Oropharynx: Positive findings: tonsillar hypertrophy 2+. Neck: Supple, no adenopathy; thyroid symmetric, normal size Health Maintenance List MENINGOCOCCAL B: Consider based on risk(1 of 2 - Risk Bexsero 2-dose series) Never done GC (GONORRHEA) SCREENING (18-) due on 12/20/2016 CHLAMYDIA SCREENING (18-24) due [...] a patient relationship with Dr Ybarra at [facility]. She will call to schedule an appointment at their clinic. Check CBC. - CONSULT TO ENT 2. Hypothyroidism, unspecified type - ICD9: 244.9, ICD10: E03.9 - Instructed patient on importance of taking on an empty stomach either first thing in the morning or at bedtime. - check TSH today - continue current dose of Synthroid 0.050 mg Terrell Cloud APRN.FIRE 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 This note was partly generated using Tideway voice recognition dictation and may contain some misspelled or inaccurate words missed on review. documented in this encounterSumma Health Wadsworth [facility]04-22-2022 Miscellaneous Notes* Telephone Encounter - Lyric Jaquez Ma - 08/23/2021 9:29 AM EDT Pt notified via [employer] that she is not able to restart Adipex until October 2021. Last rx given in Apr 2021. Also notified she would need an appointment to discuss restarting the medication. Lyric Jaquez Ma documented in this encounterSumma Health Wad[facility]04-08-2022 Miscellaneous Notes* Telephone Encounter - Adry Medina Cma - 08/09/2021 10:29 AM EDT The following approved medication requests have been transmitted electronically. Signed Prescriptions Disp Refills tiZANidine (ZANAFLEX) 4 mg tablet 60 tablet 5 Sig: Take 1 tablet by mouth every 8 hours as needed (muscle spasms). ROSA: No Authorizing Provider: GENIE JACKSON Cma * Telephone Encounter - Genie Jackson MD - 08/09/2021 10:15 AM EDT OK to refill as ordered Genie Jackson MD * Telephone Encounter - Hope Briggs Ma - 08/09/2021 10:11 AM EDT MYRIAM 06/07/21 NOV 08/13/21 Hope Briggs Ma * Telephone Encounter - Hanna Corcoran Pss - 08/09/2021 9:57 AM EDT Patient has been identified by name and date of : Yes Pending Prescriptions Disp Refills TIZANIDINE 4 MG TABLET 30 tablet 2 Sig: Take 1 tablet by mouth every 8 hours as needed (muscle spasms). ROSA: No RX INSTRUCTIONS: She said, Normally she takes 2 pills per day, especially if headaches are bad, soshe is out of refills. She needs today. Patient aware RX will be sent to pharmacy. No need to notify patient. Hanna Corcoran Pss documented in this encounterSumma Health W[facility]03-22-2017 History of Past illness Narrative* Problem Noted Date Resolved Date Physical exam 07/23/2016 10/12/2017 documented as of this encounter (statuses as of 08/09/2021) [facility] of Past illness Narrative* Problem Noted Date Resolved Date Physical exam 07/23/2016 10/12/2017 documented as of this encounter (statuses as of 08/23/2021) [address]22-2017 History of Past illness Narrative* Problem Noted Date Resolved Date Physical exam 07/23/2016 10/12/2017 documented as of this encounter (statuses as of 09/17/2021) [address]22-2017 History of Past illness Narrative* Problem Noted Date Resolved Date Physical exam 07/23/2016 10/12/2017 documented as of this encounter (statuses as of 10/01/2021) [address] History of Past illness Narrative* Problem Noted Date Resolved Date Physical exam 07/23/2016 10/12/2017 documented as of this encounter (statuses as of 10/08/2021) [address]22-2017 History of Past illness Narrative* Problem Noted Date Resolved Date Physical exam 07/23/2016 10/12/2017 documented as of this encounter (statuses as of 11/26/2021) [address]22-2017 History of Past illness Narrative* Problem Noted Date Resolved Date Physical exam 07/23/2016 10/12/2017 documented as of this encounter (statuses as of 11/27/2021) [address]22-2017 History of Past illness Narrative* Problem Noted Date Resolved Date Physical exam 07/23/2016 10/12/2017 documented as of this encounter (statuses as of 12/05/2021) [address]22-2017 History of Past illness Narrative* Problem Noted Date Resolved Date Physical exam 07/23/2016 10/12/2017 documented as of this encounter (statuses as of 12/19/2021) [address]22-2017 History of Past illness Narrative* Problem Noted Date Resolved Date Physical exam 07/23/2016 10/12/2017 documented as of this encounter (statuses as of 12/20/2021) [address]22-2017 History of Past illness Narrative* Problem Noted Date Resolved Date Physical exam 07/23/2016 10/12/2017 documented as of this encounter (statuses as of 12/24/2021) [address]22-2017 History of Past illness Narrative* Problem Noted Date Resolved Date Physical exam 07/23/2016 10/12/2017 documented as of this encounter (statuses as of 12/24/2021) [address]-2017 History of Past illness Narrative* Problem Noted Date Resolved Date Physical exam 07/23/2016 10/12/2017 documented as of this encounter (statuses as of 02/02/2022) [address]22-2017 History of Past illness Narrative* Problem Noted Date Resolved Date Physical exam 07/23/2016 10/12/2017 documented as of this encounter (statuses as of 02/05/2022) [address]22-2017 History of Past illness Narrative* Problem Noted Date Resolved Date Physical exam 07/23/2016 10/12/2017 documented as of this encounter (statuses as of 02/12/2022) [address]22-2017 History of Past illness Narrative* Problem Noted Date Resolved Date Physical exam 07/23/2016 10/12/2017 documented as of this encounter (statuses as of 02/17/2022) [address]22-2017 History of Past illness Narrative* Problem Noted Date Resolved Date Physical exam 07/23/2016 10/12/2017 documented as of this encounter (statuses as of 03/07/2022) [address]2017 History of Past illness Narrative* Problem Noted Date Resolved Date Physical exam 07/23/2016 10/12/2017 documented as of this encounter (statuses as of 05/09/2022) [address]22-2017 History of Past illness Narrative* Problem Noted Date Resolved Date Physical exam 07/23/2016 10/12/2017 documented as of this encounter (statuses as of 07/23/2022) [address]22-2017 History of Past illness Narrative* Problem Noted Date Resolved Date Physical exam 07/23/2016 10/12/2017 documented as of this encounter (statuses as of 07/23/2022) [address]22-2017 History of Past illness Narrative* Problem Noted Date Resolved Date Physical exam 07/23/2016 10/12/2017 documented as of this encounter (statuses as of 07/29/2022) [address]22-2017 History of Past illness Narrative* Problem Noted Date Resolved Date Physical exam 07/23/2016 10/12/2017 documented as of this encounter (statuses as of 08/26/2022) [address]22-2017 History of Past illness Narrative* Problem Noted Date Resolved Date Physical exam 07/23/2016 10/12/2017 documented as of this encounter (statuses as of 09/06/2022) [address]2017 History of Past illness Narrative* Problem Noted Date Resolved Date Physical exam 07/23/2016 10/12/2017 documented as of this encounter (statuses as of 10/01/2022) [address]2017 History of Past illness Narrative* Problem Noted Date Resolved Date Physical exam 07/23/2016 10/12/2017 documented as of this encounter (statuses as of 10/02/2022) [address]2017 History of Past illness Narrative* Problem Noted Date Diagnosed Date Resolved Date Physical exam 07/23/2016 10/12/2017 documented as of this encounter (statuses as of 01/14/2023) [address]2017 History of Past illness Narrative* Problem Noted Date Diagnosed Date Resolved Date Physical exam 07/23/2016 10/12/2017 documented as of this encounter (statuses as of 03/27/2023) [address]2017 History of Past illness Narrative* Problem Noted Date Diagnosed Date Resolved Date Physical exam 07/23/2016 10/12/2017 documented as of this encounter (statuses as of 04/02/2023) [address]2017 History of Past illness Narrative* Problem Noted Date Diagnosed Date Resolved Date Physical exam 07/23/2016 10/12/2017 documented as of this encounter (statuses as of 06/12/2023) [address]2017 History of Past illness Narrative* Problem Noted Date Diagnosed Date Resolved Date Physical exam 07/23/2016 10/12/2017 documented as of this encounter (statuses as of 06/16/2023) [address]2017 History of Past illness Narrative* Problem Noted Date Diagnosed Date Resolved Date Physical exam 07/23/2016 10/12/2017 documented as of this encounter (statuses as of 06/17/2023) [address]2017 History of Past illness Narrative* Problem Noted Date Diagnosed Date Resolved Date Physical exam 07/23/2016 10/12/2017 documented as of this encounter (statuses as of 06/18/2023) [address]2017 History of Past illness Narrative* Problem Noted Date Diagnosed Date Resolved Date Physical exam 07/23/2016 10/12/2017 documented as of this encounter (statuses as of 07/02/2023) [facility] illness Narrative* Problem Noted Date Diagnosed Date Resolved Date Physical exam 07/23/2016 10/12/2017 documented as of this encounter (statuses as of 07/23/2023) [facility] illness Narrative* Problem Noted Date Diagnosed Date Resolved Date Physical exam 07/23/2016 10/12/2017 documented as of this encounter (statuses as of 07/23/2023) [facility] note No data available for this section [facility] note* Diagnosis Tension headache documented in this encounter [facility] note* Diagnosis Tonsil stone- Primary Other chronic disease of tonsils and adenoids Hypothyroidism, unspecified type documented in this encounter [facility] note* Diagnosis Fatigue, unspecified type- Primary documented in this encounter [facility] note* Diagnosis Burping- Primary Flatulence, eructation, and gas pain Gastroesophageal reflux disease, unspecified whether esophagitis present Early satiety GERD without esophagitis Esophageal reflux documented in this encounter [facility] note* Diagnosis Recurrent major depressive disorder, remission status unspecified (HCC)- Primary documented in this encounter [facility] note* Diagnosis RUDOLPH (generalized anxiety disorder) Generalized anxiety disorder Panic attack Panic disorder without agoraphobia documented in this encounter [facility] note* Diagnosis Gastroesophageal reflux disease, unspecified whether esophagitis present- Primary documented in this encounter [facility] note* Diagnosis GERD without esophagitis Esophageal reflux documented in this encounter [facility] note* Diagnosis GERD without esophagitis Esophageal reflux documented in this encounter [facility] note* Diagnosis Left wrist pain- Primary Pain in joint, forearm documented in this encounter [facility] note* Diagnosis Viral URI with cough- Primary Acute upper respiratory infections of unspecified site Bacterial conjunctivitis Other conjunctivitis documented in this encounter [facility] note* Diagnosis Acute otitis media, left- Primary Unspecified otitis media documented in this encounter [facility] note* Diagnosis Frontal sinus pain- Primary Other diseases of nasal cavity and sinuses Left ear pain Otalgia, unspecified documented in this encounter [facility] note* Diagnosis GERD without esophagitis Esophageal reflux documented in this encounter [facility] noteNo assessment information [facility] Diagnosis Recurrent major depressive disorder, remission status unspecified (HCC) documented in this encounter [facility] note* Diagnosis GERD without esophagitis Esophageal reflux documented in this encounter [facility] note* Diagnosis RUDOLPH (generalized anxiety disorder) Generalized anxiety disorder Panic attack Panic disorder without agoraphobia documented in this encounter [facility] note* Diagnosis RUDOLPH (generalized anxiety disorder) Generalized anxiety disorder Panic attack Panic disorder without agoraphobia documented in this encounter [facility] note* Diagnosis Hypokalemia- Primary Hypopotassemia Nausea and vomiting, unspecified vomiting type Hospital discharge follow-up Other follow-up examination Paresthesia Disturbance of skin sensation Hand pain, left Pain in limb documented in this encounter [facility] note* Diagnosis Confusion- Primary Unspecified psychosis documented in this encounter [facility] note* Diagnosis Acute UTI- Primary Urinary tract infection, site not specified documented in this encounter [facility] note* Diagnosis Chronic constipation Unspecified constipation documented in this encounter [facility] note* Diagnosis Hypothyroidism, unspecified type documented in this encounter [facility] note* Diagnosis RUDOLPH (generalized anxiety disorder) Generalized anxiety disorder Panic attack Panic disorder without agoraphobia documented in this encounter [facility] note* Diagnosis Irregular menses- Primary Irregular menstrual cycle Vaginal bleeding Other specified noninflammatory disorder of vagina documented in this encounter [facility] note* Diagnosis Visual disturbance- Primary Unspecified visual disturbance Dizziness Dizziness and giddiness Headache, unspecified headache type documented in this encounter [facility] note* Diagnosis Recurrent major depressive disorder, remission status unspecified (HCC) documented in this encounter [facility] note* Diagnosis Recurrent major depressive disorder, remission status unspecified (HCC) documented in this encounter [facility] note* Diagnosis Nipple pain- Primary Mastodynia Ear pain, bilateral documented in this encounter [facility] note* Diagnosis Irregular menses- Primary Irregular menstrual cycle Acquired hypothyroidism Unspecified hypothyroidism Class II obesity Menorrhagia with irregular cycle Excessive or frequent menstruation Dysmenorrhea documented in this encounter [facility] note* Diagnosis Encounter for gynecological examination (general) (routine) without abnormal findings- Primary Screening for cervical cancer Screening for malignant neoplasm of the cervix Encounter for screening for human papillomavirus (HPV) Special screening examination for human papillomavirus (HPV) [facility] Diagnosis Chronic constipation Unspecified constipation [facility] Diagnosis Chronic constipation Unspecified constipation [facility] Diagnosis RUDOLPH (generalized anxiety disorder) Generalized anxiety disorder Panic attack Panic disorder without agoraphobia [facility] Diagnosis Irregular menses- Primary Irregular menstrual cycle Class II obesity Menorrhagia with irregular cycle Excessive or frequent menstruation Dysmenorrhea Adenomyosis of the uterus [facility] Diagnosis Adenomyosis- Primary Endometriosis of uterus [facility] Diagnosis RUDOPLH (generalized anxiety disorder) Generalized anxiety disorder Panic attack Panic disorder without agoraphobia [facility] Diagnosis Recurrent major depressive disorder, remission status unspecified (HCC) RUDOLPH (generalized anxiety disorder) Generalized anxiety disorder Panic attack Panic disorder without agoraphobia [facility] Diagnosis RUDOLPH (generalized anxiety disorder) Generalized anxiety disorder Panic attack Panic disorder without agoraphobia Recurrent major depressive disorder, remission status unspecified (HCC) [facility] Diagnosis Recurrent major depressive disorder, remission status unspecified (HCC) Wellness examination- Primary Chronic constipation Unspecified constipation Hypothyroidism, unspecified type Anxiety with depression Gastroesophageal reflux disease, unspecified whether esophagitis present documented in this encounter [facility] note* Diagnosis Encounter for contraceptive management, unspecified type Anxiety with depression Chronic constipation Unspecified constipation Hypothyroidism, unspecified type Gastroesophageal reflux disease, unspecified whether esophagitis present [facility] Diagnosis Left wrist pain Pain in joint, forearm [facility] Diagnosis Anxiety with depression [facility] Diagnosis Hypothyroidism, unspecified type [facility] Diagnosis Sore throat- Primary Acute pharyngitis Viral illness Unspecified viral infection, in conditions classified elsewhere and of unspecified site [facility] Diagnosis Encounter for preconception consultation- Primary Other procreative management counseling and advice documented in this encounter [facility] note* Diagnosis Tension headache- Primary documented in this encounter [facility] note* Diagnosis Anxiety with depression- Primary documented in this encounter [facility] note* Diagnosis Anxiety with depression- Primary documented in this encounter [facility] note* Diagnosis Missed menses- Primary Absence [...] and vomiting during documented in this encounter [facility] note* Diagnosis Missed menses- Primary Absence of menstruation Nausea and vomiting during (HCC) 6 weeks gestation of ([facility]) state, incidental Encounter for supervision of normal intrauterine in multigravida, antepartum (HCC)- Primary with uncertain dates, antepartum ([facility]) state, incidental History of hemorrhage Personal history of diseases of blood and blood-forming organs Screen for STD (sexually transmitted disease) Screening examination for venereal disease 8 weeks gestation of ([facility]) state, incidental Hx of preeclampsia, prior , currently (HCC) with other poor obstetric history Hypothyroidism, unspecified type BMI 38.0-38.9,adult Body Mass Index 38.0-38.9, adult documented in this encounter [facility] note* Diagnosis Missed menses- Primary Absence of menstruation Nausea and vomiting during (HCC) 6 weeks gestation of ([facility]) state, incidental Trichomoniasis- Primary Trichomoniasis, unspecified [facility] Diagnosis Missed menses- Primary Absence of menstruation Nausea and vomiting during ([facility]) 6 weeks gestation of ([facility]) state, incidental RUDOLPH (generalized anxiety disorder)- Primary Generalized anxiety disorder Panic attack Panic disorder without agoraphobia Chronic constipation Unspecified constipation [facility] Diagnosis Missed menses- Primary Absence of menstruation Nausea and vomiting during ([facility]) 6 weeks gestation of ([facility]) state, incidental Encounter for screening for malformation using ultrasound ([facility])- Primary 12 weeks gestation of ([facility]) state, incidental Encounter for (NT) nuchal translucency scan ([facility]) Other specified screening [facility] Diagnosis Missed menses- Primary Absence of menstruation Nausea and vomiting during ([facility]) 6 weeks gestation of ([facility]) state, incidental Supervision of other high risk pregnancies, second trimester ([facility])- Primary 12 weeks gestation of ([facility]) state, incidental Obesity in ([facility]) Obesity complicating , childbirth, or the puerperium, unspecified as to episode of care or not applicable Rubella non-immune status, antepartum ([facility]) Other specified complication, antepartum Hx of preeclampsia, prior , currently ([facility]) with other poor obstetric history History of hemorrhage Personal history of diseases of blood and blood-forming organs Hypothyroidism, unspecified type Engages in nicotine containing substance vaping Anxiety and depression Dysthymic disorder Trichomoniasis Trichomoniasis, unspecified [facility] Diagnosis Missed menses- Primary Absence of menstruation Nausea and vomiting during ([facility]) 6 weeks gestation of ([facility]) state, incidental RUDOLPH (generalized anxiety disorder) Generalized anxiety disorder Panic attack Panic disorder without agoraphobia [facility] Diagnosis Missed menses- Primary Absence of menstruation Nausea and vomiting during ([facility]) 6 weeks gestation of ([facility]) state, incidental RUDOLPH (generalized anxiety disorder) Generalized anxiety disorder Panic attack Panic disorder without agoraphobia [facility]* Diagnosis Supervision of other high risk [...] other high risk pregnancies, second trimester (HCC) Orders: TRICHOMONAS VAGINALIS NAAT GONORRHEA/CHLAMYDIA NAAT CONSULT TO ENDOCRINOLOGY; Future OBSTETRIC ULTRASOUND [facility]; Standing * Assessment & Plan Note - Emmanuel Hess MD - 09/29/2024 12:04 PM EDT Associated Problem(s): Hx of preeclampsia, prior , currently ([facility]) Orders: OBSTETRIC ULTRASOUND [facility]I; Standing * Assessment & Plan Note - Emmanuel Hess MD - 09/29/2024 12:04 PM EDT Associated Problem(s): Obesity in (HCC) counseled on wt gain Orders: OBSTETRIC ULTRASOUND [...] NAAT GONORRHEA/CHLAMYDIA NAAT documented in this encounter [facility] note* Diagnosis Rubella non-immune status, antepartum (HCC)- Primary Other specified complication, antepartum Supervision of other high risk pregnancies, second trimester ([facility])- Primary Hx of preeclampsia, prior , currently ([facility]) with other poor obstetric history Obesity in ([facility]) Obesity complicating , childbirth, or the puerperium, unspecified as to episode of care or not applicable Hypothyroidism, unspecified type 16 weeks gestation of ([facility]) state, incidental Trichomoniasis Trichomoniasis, unspecified Screen for STD (sexually transmitted disease) Screening examination for venereal disease documented in this encounter [facility] note* Diagnosis Supervision of other high risk pregnancies, second trimester (HCC)- Primary Hx of preeclampsia, prior , currently ([facility]) with other poor obstetric history Obesity in ([facility]) Obesity complicating , childbirth, or the puerperium, unspecified as to episode of care or not applicable Hypothyroidism, unspecified type 16 weeks gestation of ([facility]) state, incidental Trichomoniasis Trichomoniasis, unspecified Screen for STD (sexually transmitted disease) Screening examination for venereal disease Encounter for screening for malformation ([facility])- Primary Supervision of other high risk pregnancies, second trimester ([facility]) Hx of preeclampsia, prior , currently ([facility]) with other poor obstetric history Obesity in ([facility]) Obesity complicating , childbirth, or the puerperium, unspecified as to episode of care or not applicable Hypothyroidism, unspecified type documented in this encounter [facility] note* Diagnosis Supervision of other high risk pregnancies, second trimester (HCC)- Primary Hx of preeclampsia, prior , currently ([facility]) with other poor obstetric history Obesity in (HCC) Obesity complicating , childbirth, or the puerperium, unspecified as to episode of care or not applicable Hypothyroidism, unspecified type 16 weeks gestation of (HCC) state, incidental Trichomoniasis Trichomoniasis, unspecified Screen for STD (sexually transmitted disease) Screening examination for venereal disease Supervision of other high risk pregnancies, second trimester ([facility])- Primary Obesity in ([facility]) Obesity complicating , childbirth, or the puerperium, unspecified as to episode of care or not applicable Hypothyroidism, unspecified type Hx of preeclampsia, prior , currently ([facility]) with other poor obstetric history 20 weeks gestation of ([facility]) state, incidental documented in this encounter [facility] note* Diagnosis Supervision of other high risk pregnancies, second trimester ([facility])- Primary Hx of preeclampsia, prior , currently ([facility]) with other poor obstetric history Obesity in ([facility]) Obesity complicating , childbirth, or the puerperium, unspecified as to episode of care or not applicable Hypothyroidism, unspecified type 16 weeks gestation of ([facility]) state, incidental Trichomoniasis Trichomoniasis, unspecified Screen for STD (sexually transmitted disease) Screening examination for venereal disease Obesity in ([facility])- Primary Obesity complicating , childbirth, or the puerperium, unspecified as to episode of care or not applicable 8 weeks gestation of ([facility]) state, incidental documented in this encounter [facility] note* Diagnosis Supervision of other high risk pregnancies, second trimester ([facility])- Primary Hx of preeclampsia, prior , currently ([facility]) with other poor obstetric history Obesity in ([facility]) Obesity complicating , childbirth, or the puerperium, unspecified as to episode of care or not applicable Hypothyroidism, unspecified type 16 weeks gestation of ([facility]) state, incidental Trichomoniasis Trichomoniasis, unspecified Screen for STD (sexually transmitted disease) Screening examination for venereal disease Proteinuria complicating in second trimester ([facility])- Primary documented in this encounter [facility] note* Diagnosis Abnormal results of thyroid function studies- Primary Nonspecific abnormal results of thyroid function study Supervision of other high risk pregnancies, second trimester (HCC)- Primary Hx of preeclampsia, prior , currently ([facility]) with other poor obstetric history Obesity in ([facility]) Obesity complicating , childbirth, or the puerperium, unspecified as to episode of care or not applicable Hypothyroidism, unspecified type 16 weeks gestation of ([facility]) state, incidental Trichomoniasis Trichomoniasis, unspecified Screen for STD (sexually transmitted disease) Screening examination for venereal disease [facility] Diagnosis Supervision of other high risk pregnancies, second trimester (HCC)- Primary Hx of preeclampsia, prior , currently ([facility]) with other poor obstetric history Obesity in ([facility]) Obesity complicating , childbirth, or the puerperium, unspecified as to episode of care or not applicable Hypothyroidism, unspecified type 16 weeks gestation of ([facility]) state, incidental Trichomoniasis Trichomoniasis, unspecified Screen for STD (sexually transmitted disease) Screening examination for venereal disease Supervision of other high risk pregnancies, second trimester (HCC)- Primary 25 weeks gestation of ([facility]) state, incidental Screening for diabetes mellitus Hx of preeclampsia, prior , currently ([facility]) with other poor obstetric history Hypothyroidism, unspecified type Obesity in ([facility]) Obesity complicating , childbirth, or the puerperium, unspecified as to episode of care or not applicable documented in this encounter [facility] note* Diagnosis Supervision of other high risk pregnancies, second trimester (HCC)- Primary Hx of preeclampsia, prior , currently ([facility]) with other poor obstetric history Obesity in ([facility]) Obesity complicating , childbirth, or the puerperium, unspecified as to episode of care or not applicable Hypothyroidism, unspecified type 16 weeks gestation of ([facility]) state, incidental Trichomoniasis Trichomoniasis, unspecified Screen for STD (sexually transmitted disease) Screening examination for venereal disease Anxiety with depression documented in this encounter [facility] note* Diagnosis Supervision of other high risk pregnancies, second trimester ([facility])- Primary Hx of preeclampsia, prior , currently ([facility]) with other poor obstetric history Obesity in ([facility]) Obesity complicating , childbirth, or the puerperium, unspecified as to episode of care or not applicable Hypothyroidism, unspecified type 16 weeks gestation of ([facility]) state, incidental Trichomoniasis Trichomoniasis, unspecified Screen for STD (sexually transmitted disease) Screening examination for venereal disease Hx of preeclampsia, prior , currently ([facility]) with other poor obstetric history [facility] Diagnosis Supervision of other high risk pregnancies, second trimester ([facility])- Primary Hx of preeclampsia, prior , currently ([facility]) with other poor obstetric history Obesity in ([facility]) Obesity complicating , childbirth, or the puerperium, unspecified as to episode of care or not applicable Hypothyroidism, unspecified type 16 weeks gestation of ([facility]) state, incidental Trichomoniasis Trichomoniasis, unspecified Screen for STD (sexually transmitted disease) Screening examination for venereal disease Supervision of other high risk pregnancies, second trimester ([facility]) Hx of preeclampsia, prior , currently ([facility]) with other poor obstetric history Obesity in ([facility]) Obesity complicating , childbirth, or the puerperium, unspecified as to episode of care or not applicable Hypothyroidism, unspecified type documented in this encounter [facility] note* Diagnosis Supervision of other high risk pregnancies, second trimester ([facility])- Primary Hx of preeclampsia, prior , currently ([facility]) with other poor obstetric history Obesity in ([facility]) Obesity complicating , childbirth, or the puerperium, unspecified as to episode of care or not applicable Hypothyroidism, unspecified type 16 weeks gestation of ([facility]) state, incidental Trichomoniasis Trichomoniasis, unspecified Screen for STD (sexually transmitted disease) Screening examination for venereal disease Supervision of high risk in third trimester ([facility])- Primary Unspecified high-risk Hypothyroidism, unspecified type Obesity in ([facility]) Obesity complicating , childbirth, or the puerperium, unspecified as to episode of care or not applicable 29 weeks gestation of ([facility]) state, incidental Need for vaccination Need for prophylactic vaccination and inoculation against unspecified single disease Encounter for other general counseling or advice on contraception Sciatica of right side Sciatica documented in this encounter [facility] note* Diagnosis Supervision of other high risk pregnancies, second trimester ([facility])- Primary Hx of preeclampsia, prior , currently ([facility]) with other poor obstetric history Obesity in ([facility]) Obesity complicating , childbirth, or the puerperium, unspecified as to episode of care or not applicable Hypothyroidism, unspecified type 16 weeks gestation of ([facility]) state, incidental Trichomoniasis Trichomoniasis, unspecified Screen for STD (sexually transmitted disease) Screening examination for venereal disease Anemia complicating , third trimester ([facility])- Primary documented in this encounter [facility] note* Diagnosis Supervision of other high risk pregnancies, second trimester ([facility])- Primary Hx of preeclampsia, prior , currently ([facility]) with other poor obstetric history Obesity in ([facility]) Obesity complicating , childbirth, or the puerperium, unspecified as to episode of care or not applicable Hypothyroidism, unspecified type 16 weeks gestation of ([facility]) state, incidental Trichomoniasis Trichomoniasis, unspecified Screen for STD (sexually transmitted disease) Screening examination for venereal disease Anxiety with depression documented in this encounter [facility] note* Diagnosis Supervision of other high risk pregnancies, second trimester ([facility])- Primary Hx of preeclampsia, prior , currently ([facility]) with other poor obstetric history Obesity in ([facility]) Obesity complicating , childbirth, or the puerperium, unspecified as to episode of care or not applicable Hypothyroidism, unspecified type 16 weeks gestation of ([facility]) state, incidental Trichomoniasis Trichomoniasis, unspecified Screen for STD (sexually transmitted disease) Screening examination for venereal disease Anemia during in third trimester ([facility])- Primary Obesity in ([facility]) Obesity complicating , childbirth, or the puerperium, unspecified as to episode of care or not applicable Supervision of high risk in third trimester ([facility]) Unspecified high-risk 31 weeks gestation of ([facility]) state, incidental [facility] Additional Instructions Motrin and Tylenol for pain. Your labs are unremarkable. Your CAT scan showed swollen lymph nodes. This should improve over time. If not follow-up with your doctor. No signs of colitis.[facility] Work Phone: Hospital Discharge instructions Additional Instructions Take your potassium supplements. Please follow-up with your PCP.[facility] Work Phone: Reason for referral (narrative)* Diagnostic Procedure Only (Urgent) - Closed Specialty Diagnoses / Procedures Referred By Contac t Referred To Contact XR IMAGING Diagnoses Left wrist pain Procedures XR WRIST INJURY 4V PA/LAT/OBL/SCAPH LEFT RADEX WRIST COMPLETE MINIMUM 3 VIEWS Ruth Vallejo PA-C [address] [place] [address] Xr Imaging Referral ID Status Reason Start Date Expiration Date V isits Requested Visits Authorized [id number] Closed Auto-Generate d Referral 12/24/2021 01/23/2023 1 1 [facility] for referral (narrative)* Diagnostic Procedure Only (Routine) - Pending Review Specialty Diagnoses / Procedures Referred By Contac t Referred To Contact [facility] Diagnoses Irregular menses Class II obesity Menorrhagia with irregular cycle Dysmenorrhea Procedures PELVIC US WHI US PELVIC NONOBSTETRIC REAL-TIME IMAGE COMPLETE Rohan Yoon MD [id number] [place] [phone] Referral ID Status Reason Start Date Expiration Date Visits Requested Visits Authorized [id number] Pending Review Auto-Generat ed Referral 11/04/2023 11/03/2024 1 1 [facility] for referral (narrative)* Diagnostic Procedure Only (Urgent) - Closed Specialty Diagnoses / Procedures Referred By Contac t Referred To Contact XR IMAGING Diagnoses Left wrist pain Procedures XR WRIST INJURY 4V PA/LAT/OBL/SCAPH LEFT RADEX WRIST COMPLETE MINIMUM 3 VIEWS Ruth Vallejo PA-C [address] [place] [address] [place] [id number] Referral ID Status Reason Start Date Expiration Date V isits Requested Visits Authorized [id number] Closed Auto-Generate d Referral 12/24/2021 01/23/2023 1 1 [facility] for referral (narrative)No reason for referral information [facility]: Reason for visit Narrative* Diagnostic Procedure Only (Routine) - Closed Specialty Diagnoses / Procedures Referred By Contac t Referred To Contact [facility] Diagnoses Irregular menses Class II obesity Menorrhagia with irregular cycle Dysmenorrhea Procedures PELVIC US WHI US PELVIC NONOBSTETRIC REAL-TIME IMAGE COMPLETE Rohan Yoon MD [address] [place] [address] [facility] [place] [address] [place] [phone] Referral ID Status Reason Start Date Expiration Date V isits Requested Visits Authorized [id number] Closed Auto-Generate d Referral 11/12/2023 05/03/2024 1 1 [facility] for visit Narrative* Diagnostic Procedure Only (Urgent) - Closed Specialty Diagnoses / Procedures Referred By Contac t Referred To Contact XR IMAGING Diagnoses Left wrist pain Procedures XR WRIST INJURY 4V PA/LAT/OBL/SCAPH LEFT RADEX WRIST COMPLETE MINIMUM 3 VIEWS Ruth Vallejo PA-C [address] [place] [address] [place] [id number] Referral ID Status Reason Start Date Expiration Date V isits Requested Visits Authorized [id number] Closed Auto-Generate d Referral 12/24/2021 01/23/2023 1 1 [facility] Summary Purpose Family History No Family History Records Found Relationship Condition Age at Onset Recorded Date/T radha Unknown Family History?No pertinent history Unkno wn September 27, 2017 4:53am Family History?No pertinent history Unkno wn September 27, 2017 4:53am Relationship Condition Age at Onset Recorded Date/T radha Unknown Family History?No pertinent history Unkno wn September 27, 2017 3:53am Family History?No pertinent history Unkno wn September 27, 2017 3:53am Advance Directives No Advanced Directives Records FoundDocuments on File Type Date Recorded 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 Advance Directive(s) 10/14/2017 12:25 PM Documents on File Type Date Recorded 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 Advance Directive(s) 10/14/2017 12:25 PM Advance Directive Response Recorded Date/ Time Living Will No March 02 9:26pm Power of Traffic Line Painter No March 02, 2022 9:26pm Advance Directive Response Recorded Date/ Time Living Will No June 30, 2 023 9:09am Power of Traffic Line Painter No June 30, 2022 9:09am Advance Directive Response Recorded Date/ Time Living Will No September 06, 2022 2: 13pm Power of Traffic Line Painter No September 06, 2022 2:13pm Advance Directive Response Recorded Date/ Time Living Will No June, 2 024 11:14am Power of Traffic Line Painter No July 02, 2023 11:14am Reason for Referral Specialty Diagnoses / Procedures Referred By Susan montague Referred To Contact Ent - Otolaryngology Diagnoses Tonsil stone Procedures CONSULT TO ENT OFFICE/OUTPATIENT [facility] 60-74 MINUTES Terrell Cloud APRN.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 [address] [place] [address] Referral ID Status Reason Start Date Expiration Date Visits Requested Visits Authorized [id number] Pending Review PCP Requested Referral 09/17/2021 09/17/2022 1 1 Specialty Diagnoses / Procedures Referred By Susan t Referred To Contact Gastroenterology Diagnoses Gastroesophageal reflux disease, unspecified whether esophagitis present Procedures CONSULT TO GASTROENTEROLOGY OFFICE/OUTPATIENT [facility] 60-74 MINUTES Genie Jackson MD [address] [place] [address] Referral ID Status Reason Start Date Expiration Date Visits Requested Visits Authorized [id number] Pending Review PCP Requested Referral 09/19/2021 09/19/2022 1 1 Specialty Diagnoses / Procedures Referred By Susan t Referred To Contact [facility] Diagnoses Paresthesia Hand pain, left Procedures EMG(NEURO/NI) NERVE CONDUCTION STUDIES 9-10 STUDIES Terrell Cloud APRN.[employer] 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 [address] [place] [address] [facility] [address] [place] [address] Referral ID Status Reason Start Date Expiration Date Visits Requested Visits Authorized [id number] Authorized Auto-Generat ed Referral 09/22/2022 05/03/2023 1 1 Specialty Diagnoses / Procedures Referred By Susan montague Referred To Contact Diagnoses Chronic constipation Genie Jackson MD [address] [place] [address] Referral ID Status Reason Start Date Expiration Date V isits Requested Visits Authorized [id number] Authorized 11/12/2023 11/10/2024 1 1 Health Concerns Infection Onset Date Last Indicated Resolved Time COVID-19 Rule-Out 02/02/2022 02/02/2022 Chief Complaint and Reason for Visit Chief Complaint FOREIGN BODY Chief Complaint FOREIGN BODY ABD PAIN Chief Complaint ABD PAIN WEAKNESS Chief Complaint ABD Chief Complaint Admit Date R/O PRE E November 19, 2024 10:1 0pm Chief Complaint Admit Date R/O PRE E November 19, 2024 10:1 0pm R/O NO MOVEMENT IN 2 DAYS December 032024 5:37pm Reason for Visit Admit Date 24 weeks gestation of November 10:10pm Headache in November 19, 2024 10 :10pm Proteinuria affecting in secon d trimester November 19, 2024 10:10pm Additional Source Comments INFORMATION SOURCE (unrecogn ized section and content) DATE CREATED AUTHOR 10/20/2017 [facility] DATE CREATED AUTHOR AUTHOR'S ORGANIZ ATION 10/23/2017 [facility] DATE CREATED AUTHOR AUTHOR'S ORGANIZ ATION 08/26/2022 [facility] DATE CREATED AUTHOR AUTHOR'S ORGANIZ ATION 07/11/2023 [facility] DATE CREATED AUTHOR AUTHOR'S ORGANIZ ATION 02/16/2025 [facility] DATE CREATED AUTHOR AUTHOR'S ORGANIZ ATION 02/17/2025 [facility] Source Comments (unrecognize d section and content) In the event this informatio n is protected by the Federal Confidentiality of Alcohol and Drug Abuse Patient Records regulations: The Federal rules restrict any use of the information to criminally investigate or prosecute any alcohol or drug abuse patient.[facility] the event this information is protected by the Federal Confidentiality of Alcohol and Drug Abuse Patient Records regulations: The Federal rules restrict any use of the information to criminally investigate or prosecute any alcohol or drug abuse patient.[facility] Center[facility] the event this information is protected by the Federal Confidentiality of Alcohol and Drug Abuse Patient Records regulations: The Federal rules restrict any use of the information to criminally investigate or prosecute any alcohol or drug abuse patient.[facility] Center[facility] the event this information is protected by the Federal Confidentiality of Alcohol and Drug Abuse Patient Records regulations: The Federal rules restrict any use of the information to criminally investigate or prosecute any alcohol or drug abuse patient.[facility] Center[facility] the event this information is protected by the Federal Confidentiality of Alcohol and Drug Abuse Patient Records regulations: The Federal rules restrict any use of the information to criminally investigate or prosecute any alcohol or drug abuse patient.[facility] Center[facility] the event this information is protected by the Federal Confidentiality of Alcohol and Drug Abuse Patient Records regulations: The Federal rules restrict any use of the information to criminally investigate or prosecute any alcohol or drug abuse patient.[facility] CenterIn the event this information is protected by the Federal Confidentiality of Alcohol and Drug Abuse Patient Records regulations: The Federal rules restrict any use of the information to criminally investigate or prosecute any alcohol or drug abuse patient.[facility] Center[facility] the event this information is protected by the Federal Confidentiality of Alcohol and Drug Abuse Patient Records regulations: The Federal rules restrict any use of the information to criminally investigate or prosecute any alcohol or drug abuse patient.[facility] CenterIn the event this information is protected by the Federal Confidentiality of Alcohol and Drug Abuse Patient Records regulations: The Federal rules restrict any use of the information to criminally investigate or prosecute any alcohol or drug abuse patient.[facility] CenterIn the event this information is protected by the Federal Confidentiality of Alcohol and Drug Abuse Patient Records regulations: The Federal rules restrict any use of the information to criminally investigate or prosecute any alcohol or drug abuse patient.[facility] CenterIn the event this information is protected by the Federal Confidentiality of Alcohol and Drug Abuse Patient Records regulations: The Federal rules restrict any use of the information to criminally investigate or prosecute any alcohol or drug abuse patient.[facility] CenterIn the event this information is protected by the Federal Confidentiality of Alcohol and Drug Abuse Patient Records regulations: The Federal rules restrict any use of the information to criminally investigate or prosecute any alcohol or drug abuse patient.[facility] CenterIn the event this information is protected by the Federal Confidentiality of Alcohol and Drug Abuse Patient Records regulations: The Federal rules restrict any use of the information to criminally investigate or prosecute any alcohol or drug abuse patient.[facility] CenterIn the event this information is protected by the Federal Confidentiality of Alcohol and Drug Abuse Patient Records regulations: The Federal rules restrict any use of the information to criminally investigate or prosecute any alcohol or drug abuse patient.[facility] CenterIn the event this information is protected by the Federal Confidentiality of Alcohol and Drug Abuse Patient Records regulations: The Federal rules restrict any use of the information to criminally investigate or prosecute any alcohol or drug abuse patient.[facility] CenterIn the event this information is protected by the Federal Confidentiality of Alcohol and Drug Abuse Patient Records regulations: The Federal rules restrict any use of the information to criminally investigate or prosecute any alcohol or drug abuse patient.[facility] CenterIn the event this information is protected by the Federal Confidentiality of Alcohol and Drug Abuse Patient Records regulations: The Federal rules restrict any use of the information to criminally investigate or prosecute any alcohol or drug abuse patient.[facility] CenterIn the event this information is protected by the Federal Confidentiality of Alcohol and Drug Abuse Patient Records regulations: The Federal rules restrict any use of the information to criminally investigate or prosecute any alcohol or drug abuse patient.[facility] CenterIn the event this information is protected by the Federal Confidentiality of Alcohol and Drug Abuse Patient Records regulations: The Federal rules restrict any use of the information to criminally investigate or prosecute any alcohol or drug abuse patient.[facility] CenterIn the event this information is protected by the Federal Confidentiality of Alcohol and Drug Abuse Patient Records regulations: The Federal rules restrict any use of the information to criminally investigate or prosecute any alcohol or drug abuse patient.[facility] CenterIn the event this information is protected by the Federal Confidentiality of Alcohol and Drug Abuse Patient Records regulations: The Federal rules restrict any use of the information to criminally investigate or prosecute any alcohol or drug abuse patient.[facility] CenterIn the event this information is protected by the Federal Confidentiality of Alcohol and Drug Abuse Patient Records regulations: The Federal rules restrict any use of the information to criminally investigate or prosecute any alcohol or drug abuse patient.[facility] CenterIn the event this information is protected by the Federal Confidentiality of Alcohol and Drug Abuse Patient Records regulations: The Federal rules restrict any use of the information to criminally investigate or prosecute any alcohol or drug abuse patient.[facility] CenterIn the event this information is protected by the Federal Confidentiality of Alcohol and Drug Abuse Patient Records regulations: The Federal rules restrict any use of the information to criminally investigate or prosecute any alcohol or drug abuse patient.[facility] CenterIn the event this information is protected by the Federal Confidentiality of Alcohol and Drug Abuse Patient Records regulations: The Federal rules restrict any use of the information to criminally investigate or prosecute any alcohol or drug abuse patient.[facility] CenterIn the event this information is protected by the Federal Confidentiality of Alcohol and Drug Abuse Patient Records regulations: The Federal rules restrict any use of the information to criminally investigate or prosecute any alcohol or drug abuse patient.[facility] CenterIn the event this information is protected by the Federal Confidentiality of Alcohol and Drug Abuse Patient Records regulations: The Federal rules restrict any use of the information to criminally investigate or prosecute any alcohol or drug abuse patient.[facility] CenterIn the event this information is protected by the Federal Confidentiality of Alcohol and Drug Abuse Patient Records regulations: The Federal rules restrict any use of the information to criminally investigate or prosecute any alcohol or drug abuse patient.[facility] CenterIn the event this information is protected by the Federal Confidentiality of Alcohol and Drug Abuse Patient Records regulations: The Federal rules restrict any use of the information to criminally investigate or prosecute any alcohol or drug abuse patient.[facility] CenterIn the event this information is protected by the Federal Confidentiality of Alcohol and Drug Abuse Patient Records regulations: The Federal rules restrict any use of the information to criminally investigate or prosecute any alcohol or drug abuse patient.[facility] CenterIn the event this information is protected by the Federal Confidentiality of Alcohol and Drug Abuse Patient Records regulations: The Federal rules restrict any use of the information to criminally investigate or prosecute any alcohol or drug abuse patient.[facility] CenterIn the event this information is protected by the Federal Confidentiality of Alcohol and Drug Abuse Patient Records regulations: The Federal rules restrict any use of the information to criminally investigate or prosecute any alcohol or drug abuse patient.[facility] CenterIn the event this information is protected by the Federal Confidentiality of Alcohol and Drug Abuse Patient Records regulations: The Federal rules restrict any use of the information to criminally investigate or prosecute any alcohol or drug abuse patient.[facility] CenterIn the event this information is protected by the Federal Confidentiality of Alcohol and Drug Abuse Patient Records regulations: The Federal rules restrict any use of the information to criminally investigate or prosecute any alcohol or drug abuse patient.[facility] CenterIn the event this information is protected by the Federal Confidentiality of Alcohol and Drug Abuse Patient Records regulations: The Federal rules restrict any use of the information to criminally investigate or prosecute any alcohol or drug abuse patient.[facility] CenterIn the event this information is protected by the Federal Confidentiality of Alcohol and Drug Abuse Patient Records regulations: The Federal rules restrict any use of the information to criminally investigate or prosecute any alcohol or drug abuse patient.[facility] CenterIn the event this information is protected by the Federal Confidentiality of Alcohol and Drug Abuse Patient Records regulations: The Federal rules restrict any use of the information to criminally investigate or prosecute any alcohol or drug abuse patient.[facility] CenterIn the event this information is protected by the Federal Confidentiality of Alcohol and Drug Abuse Patient Records regulations: The Federal rules restrict any use of the information to criminally investigate or prosecute any alcohol or drug abuse patient.[facility] CenterIn the event this information is protected by the Federal Confidentiality of Alcohol and Drug Abuse Patient Records regulations: The Federal rules restrict any use of the information to criminally investigate or prosecute any alcohol or drug abuse patient.[facility] CenterIn the event this information is protected by the Federal Confidentiality of Alcohol and Drug Abuse Patient Records regulations: The Federal rules restrict any use of the information to criminally investigate or prosecute any alcohol or drug abuse patient.[facility] CenterIn the event this information is protected by the Federal Confidentiality of Alcohol and Drug Abuse Patient Records regulations: The Federal rules restrict any use of the information to criminally investigate or prosecute any alcohol or drug abuse patient.[facility] CenterIn the event this information is protected by the Federal Confidentiality of Alcohol and Drug Abuse Patient Records regulations: The Federal rules restrict any use of the information to criminally investigate or prosecute any alcohol or drug abuse patient.[facility] CenterIn the event this information is protected by the Federal Confidentiality of Alcohol and Drug Abuse Patient Records regulations: The Federal rules restrict any use of the information to criminally investigate or prosecute any alcohol or drug abuse patient.[facility] CenterIn the event this information is protected by the Federal Confidentiality of Alcohol and Drug Abuse Patient Records regulations: The Federal rules restrict any use of the information to criminally investigate or prosecute any alcohol or drug abuse patient.[facility] CenterIn the event this information is protected by the Federal Confidentiality of Alcohol and Drug Abuse Patient Records regulations: The Federal rules restrict any use of the information to criminally investigate or prosecute any alcohol or drug abuse patient.[facility] CenterIn the event this information is protected by the Federal Confidentiality of Alcohol and Drug Abuse Patient Records regulations: The Federal rules restrict any use of the information to criminally investigate or prosecute any alcohol or drug abuse patient.[facility] CenterIn the event this information is protected by the Federal Confidentiality of Alcohol and Drug Abuse Patient Records regulations: The Federal rules restrict any use of the information to criminally investigate or prosecute any alcohol or drug abuse patient.[facility] CenterIn the event this information is protected by the Federal Confidentiality of Alcohol and Drug Abuse Patient Records regulations: The Federal rules restrict any use of the information to criminally investigate or prosecute any alcohol or drug abuse patient.[facility] CenterIn the event this information is protected by the Federal Confidentiality of Alcohol and Drug Abuse Patient Records regulations: The Federal rules restrict any use of the information to criminally investigate or prosecute any alcohol or drug abuse patient.[facility] CenterIn the event this information is protected by the Federal Confidentiality of Alcohol and Drug Abuse Patient Records regulations: The Federal rules restrict any use of the information to criminally investigate or prosecute any alcohol or drug abuse patient.[facility] CenterIn the event this information is protected by the Federal Confidentiality of Alcohol and Drug Abuse Patient Records regulations: The Federal rules restrict any use of the information to criminally investigate or prosecute any alcohol or drug abuse patient.[facility] CenterIn the event this information is protected by the Federal Confidentiality of Alcohol and Drug Abuse Patient Records regulations: The Federal rules restrict any use of the information to criminally investigate or prosecute any alcohol or drug abuse patient.[facility] CenterIn the event this information is protected by the Federal Confidentiality of Alcohol and Drug Abuse Patient Records regulations: The Federal rules restrict any use of the information to criminally investigate or prosecute any alcohol or drug abuse patient.[facility] CenterIn the event this information is protected by the Federal Confidentiality of Alcohol and Drug Abuse Patient Records regulations: The Federal rules restrict any use of the information to criminally investigate or prosecute any alcohol or drug abuse patient.[facility] CenterIn the event this information is protected by the Federal Confidentiality of Alcohol and Drug Abuse Patient Records regulations: The Federal rules restrict any use of the information to criminally investigate or prosecute any alcohol or drug abuse patient.[facility] CenterIn the event this information is protected by the Federal Confidentiality of Alcohol and Drug Abuse Patient Records regulations: The Federal rules restrict any use of the information to criminally investigate or prosecute any alcohol or drug abuse patient.[facility] CenterIn the event this information is protected by the Federal Confidentiality of Alcohol and Drug Abuse Patient Records regulations: The Federal rules restrict any use of the information to criminally investigate or prosecute any alcohol or drug abuse patient.[facility] CenterIn the event this information is protected by the Federal Confidentiality of Alcohol and Drug Abuse Patient Records regulations: The Federal rules restrict any use of the information to criminally investigate or prosecute any alcohol or drug abuse patient.[facility] CenterIn the event this information is protected by the Federal Confidentiality of Alcohol and Drug Abuse Patient Records regulations: The Federal rules restrict any use of the information to criminally investigate or prosecute any alcohol or drug abuse patient.[facility] CenterIn the event this information is protected by the Federal Confidentiality of Alcohol and Drug Abuse Patient Records regulations: The Federal rules restrict any use of the information to criminally investigate or prosecute any alcohol or drug abuse patient.[facility] CenterIn the event this information is protected by the Federal Confidentiality of Alcohol and Drug Abuse Patient Records regulations: The Federal rules restrict any use of the information to criminally investigate or prosecute any alcohol or drug abuse patient.[facility] CenterIn the event this information is protected by the Federal Confidentiality of Alcohol and Drug Abuse Patient Records regulations: The Federal rules restrict any use of the information to criminally investigate or prosecute any alcohol or drug abuse patient.[facility] CenterIn the event this information is protected by the Federal Confidentiality of Alcohol and Drug Abuse Patient Records regulations: The Federal rules restrict any use of the information to criminally investigate or prosecute any alcohol or drug abuse patient.[facility] CenterIn the event this information is protected by the Federal Confidentiality of Alcohol and Drug Abuse Patient Records regulations: The Federal rules restrict any use of the information to criminally investigate or prosecute any alcohol or drug abuse patient.[facility] CenterIn the event this information is protected by the Federal Confidentiality of Alcohol and Drug Abuse Patient Records regulations: The Federal rules restrict any use of the information to criminally investigate or prosecute any alcohol or drug abuse patient.[facility] CenterIn the event this information is protected by the Federal Confidentiality of Alcohol and Drug Abuse Patient Records regulations: The Federal rules restrict any use of the information to criminally investigate or prosecute any alcohol or drug abuse patient.[facility] CenterIn the event this information is protected by the Federal Confidentiality of Alcohol and Drug Abuse Patient Records regulations: The Federal rules restrict any use of the information to criminally investigate or prosecute any alcohol or drug abuse patient.[facility] CenterIn the event this information is protected by the Federal Confidentiality of Alcohol and Drug Abuse Patient Records regulations: The Federal rules restrict any use of the information to criminally investigate or prosecute any alcohol or drug abuse patient.[facility] CenterIn the event this information is protected by the Federal Confidentiality of Alcohol and Drug Abuse Patient Records regulations: The Federal rules restrict any use of the information to criminally investigate or prosecute any alcohol or drug abuse patient.[facility] CenterIn the event this information is protected by the Federal Confidentiality of Alcohol and Drug Abuse Patient Records regulations: The Federal rules restrict any use of the information to criminally investigate or prosecute any alcohol or drug abuse patient.[facility] CenterIn the event this information is protected by the Federal Confidentiality of Alcohol and Drug Abuse Patient Records regulations: The Federal rules restrict any use of the information to criminally investigate or prosecute any alcohol or drug abuse patient.[facility] CenterIn the event this information is protected by the Federal Confidentiality of Alcohol and Drug Abuse Patient Records regulations: The Federal rules restrict any use of the information to criminally investigate or prosecute any alcohol or drug abuse patient.[facility] CenterIn the event this information is protected by the Federal Confidentiality of Alcohol and Drug Abuse Patient Records regulations: The Federal rules restrict any use of the information to criminally investigate or prosecute any alcohol or drug abuse patient.[facility] CenterIn the event this information is protected by the Federal Confidentiality of Alcohol and Drug Abuse Patient Records regulations: The Federal rules restrict any use of the information to criminally investigate or prosecute any alcohol or drug abuse patient.[facility] CenterIn the event this information is protected by the Federal Confidentiality of Alcohol and Drug Abuse Patient Records regulations: The Federal rules restrict any use of the information to criminally investigate or prosecute any alcohol or drug abuse patient.[facility] CenterIn the event this information is protected by the Federal Confidentiality of Alcohol and Drug Abuse Patient Records regulations: The Federal rules restrict any use of the information to criminally investigate or prosecute any alcohol or drug abuse patient.[facility] CenterIn the event this information is protected by the Federal Confidentiality of Alcohol and Drug Abuse Patient Records regulations: The Federal rules restrict any use of the information to criminally investigate or prosecute any alcohol or drug abuse patient.[facility] CenterIn the event this information is protected by the Federal Confidentiality of Alcohol and Drug Abuse Patient Records regulations: The Federal rules restrict any use of the information to criminally investigate or prosecute any alcohol or drug abuse patient.[facility] CenterIn the event this information is protected by the Federal Confidentiality of Alcohol and Drug Abuse Patient Records regulations: The Federal rules restrict any use of the information to criminally investigate or prosecute any alcohol or drug abuse patient.[facility] CenterIn the event this information is protected by the Federal Confidentiality of Alcohol and Drug Abuse Patient Records regulations: The Federal rules restrict any use of the information to criminally investigate or prosecute any alcohol or drug abuse patient.[facility] CenterIn the event this information is protected by the Federal Confidentiality of Alcohol and Drug Abuse Patient Records regulations: The Federal rules restrict any use of the information to criminally investigate or prosecute any alcohol or drug abuse patient.[facility] CenterIn the event this information is protected by the Federal Confidentiality of Alcohol and Drug Abuse Patient Records regulations: The Federal rules restrict any use of the information to criminally investigate or prosecute any alcohol or drug abuse patient.[facility] CenterIn the event this information is protected by the Federal Confidentiality of Alcohol and Drug Abuse Patient Records regulations: The Federal rules restrict any use of the information to criminally investigate or prosecute any alcohol or drug abuse patient.[facility] CenterIn the event this information is protected by the Federal Confidentiality of Alcohol and Drug Abuse Patient Records regulations: The Federal rules restrict any use of the information to criminally investigate or prosecute any alcohol or drug abuse patient.[facility] CenterIn the event this information is protected by the Federal Confidentiality of Alcohol and Drug Abuse Patient Records regulations: The Federal rules restrict any use of the information to criminally investigate or prosecute any alcohol or drug abuse patient.[facility] CenterIn the event this information is protected by the Federal Confidentiality of Alcohol and Drug Abuse Patient Records regulations: The Federal rules restrict any use of the information to criminally investigate or prosecute any alcohol or drug abuse patient.[facility] CenterIn the event this information is protected by the Federal Confidentiality of Alcohol and Drug Abuse Patient Records regulations: The Federal rules restrict any use of the information to criminally investigate or prosecute any alcohol or drug abuse patient.[facility] CenterIn the event this information is protected by the Federal Confidentiality of Alcohol and Drug Abuse Patient Records regulations: The Federal rules restrict any use of the information to criminally investigate or prosecute any alcohol or drug abuse patient.[facility] CenterIn the event this information is protected by the Federal Confidentiality of Alcohol and Drug Abuse Patient Records regulations: The Federal rules restrict any use of the information to criminally investigate or prosecute any alcohol or drug abuse patient.[facility] CenterIn the event this information is protected by the Federal Confidentiality of Alcohol and Drug Abuse Patient Records regulations: The Federal rules restrict any use of the information to criminally investigate or prosecute any alcohol or drug abuse patient.[facility] CenterIn the event this information is protected by the Federal Confidentiality of Alcohol and Drug Abuse Patient Records regulations: The Federal rules restrict any use of the information to criminally investigate or prosecute any alcohol or drug abuse patient.[facility] CenterIn the event this information is protected by the Federal Confidentiality of Alcohol and Drug Abuse Patient Records regulations: The Federal rules restrict any use of the information to criminally investigate or prosecute any alcohol or drug abuse patient.[facility] CenterIn the event this information is protected by the Federal Confidentiality of Alcohol and Drug Abuse Patient Records regulations: The Federal rules restrict any use of the information to criminally investigate or prosecute any alcohol or drug abuse patient.[facility] Reason for Visit (unrecogniz ed section and content) Reason Onset Date Comments Refill Request 08/09/2021 Reason Comments Swollen Tonsils Reason Comments GERD Specialty Diagnoses / Procedures Referred By Susan t Referred To Contact Gastroenterology Diagnoses Gastroesophageal reflux disease, unspecified whether esophagitis present Procedures CONSULT TO GASTROENTEROLOGY OFFICE/OUTPATIENT NEW HIGH MDM 60-74 MINUTES Genie Jackson MD [address] [place] [address] Referral ID Status Reason Start Date Expiration Date Visits Requested Visits Authorized [id number] Pending Review PCP Requested Referral 09/19/2021 09/19/2022 [...] Request 07/29/2022 Reason Comments ER F/U 08/22/22 [facility]; abdominal pain Reason Comments Urinary Frequency Frequency [...] Procedures EST SAME DAY Self Express Cl [facility] [address] [place] [address] Referral ID Status Reason Start Date Expiration Date Visits Requested Visits Authorized [id number] New Request Financial Clearance Required - Self Pay 07/13/2024 1 1 Reason Comments Problem Visit Reason Comments Headache X 1 week with sinus pressure Reason Comments Medication Problem Increased anxiety Reason Comments patient medication question Reason Comments Medication Problem Reason Comments Future Appointment Reason Comments 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 Diagnoses 8 weeks gestation of (HCC) Procedures OBSTETRIC ULTRASOUND WHI US PREG UTERUS AFTER 1ST TRIMEST GESTATION Elayne Severino, BUD.FIRE 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 [address] [place] [address] Phone: tel: fax: Formerly Named [facility] [address] [place] [address] Referral ID Status Reason Start Date Expiration Date V isits Requested Visits Authorized [id number] Closed Auto-Generate d Referral 08/01/2024 08/01/2025 1 1 Reason Onset Date Comments Care 08/31/2024 Reason Onset Date Comments Refill Request 09/07/2024 Reason Onset Date Comments Care 09/29/2024 Specialty Diagnoses / Procedures Referred By Contac t Referred To Contact [facility] Diagnoses Supervision of other high risk pregnancies, second trimester (HCC) Hx of preeclampsia, prior , currently (HCC) Obesity in (HCC) Hypothyroidism, unspecified type Procedures OBSTETRIC ULTRASOUND WHI US PREG UTERUS AFTER 1ST TRIMEST GESTATION Emmanuel Hess MD [address] [place] [address] Phone: tel: fax: Formerly Named [facility] [address] [place] [address] Referral ID Status Reason Start Date Expiration Date V isits Requested Visits Authorized [id number] Closed Auto-Generate d Referral 09/29/2024 09/29/2025 6 1 Reason Onset Date Comments Care 10/26/2024 Referral ID Status Reason Start Date Expiration Date V isits Requested Visits Authorized [id number] Closed Auto-Generate d Referral 08/01/2024 08/01/2025 1 1 Reason Onset Date Comments Care 11/29/2024 Reason Onset Date Comments Refill Request 10/11/2024 Reason Onset Date Comments Care 12/28/2024 Reason Comments Results Reason Onset Date Comments Refill Request 01/05/2025 Reason Onset Date Comments Care 01/12/2025 Care Teams (unrecognized sec tion and content) Data Specialist Relationship Specialty Start Date End Date Genie Jackson MD [address] [place], [place] [address] PCP - General Family Practice 08/27/17 Data Specialist Relationship Specialty Start Date End Date Genie Jackson MD [address] [place], [place] [id number] [phone] PCP - General Family Practice 08/27/17 Data Specialist Relationship Specialty Start Date End Date Genie Jackson MD [address] [place], [place] [id number] PCP - General Family Practice 08/27/17 Data Specialist Relationship Specialty Start Date End Date Genie Jackson MD [address] [place], [place] [id number] PCP - General Family Practice 08/27/17 Data Specialist Relationship Specialty Start Date End Date Genie Jackson MD [address] [facility] [place] [address] PCP - General Family Practice 08/27/17 Data Specialist Relationship Specialty Start Date End Date Genie Jackson MD [address] [facility] [place] [address] PCP - General Family Practice 08/27/17 Data Specialist Relationship Specialty Start Date End Date Genie Jackson MD [address] [facility] [place] [address] PCP - General Family Practice 08/27/17 Data Specialist Relationship Specialty Start Date End Date Genie Jackson MD [address] [facility] [place] [address] PCP - General Family Practice 08/27/17 Data Specialist Relationship Specialty Start Date End Date Genie Jackson MD [address] [facility] [place] [address] PCP - General Family Practice 08/27/17 Data Specialist Relationship Specialty Start Date End Date Genie Jackson MD [address] [facility] [place] [address] PCP - General Family Practice 08/27/17 Data Specialist Relationship Specialty Start Date End Date Genie Jackson MD [address] [facility] [place] [address] PCP - General Family Medicine 08/27/17 Data Specialist Relationship Specialty Start Date End Date Genie Jackson MD [address] [facility] [place] [address] PCP - General Family Medicine 08/27/17 Data Specialist Relationship Specialty Start Date End Date Genie Jackson MD [address] [facility] [place] [address] PCP - General Family Medicine 08/27/17 Data Specialist Relationship Specialty Start Date End Date Genie Jackson MD [address] [facility] [place] [address] PCP - General Family Medicine 08/27/17 Data Specialist Relationship Specialty Start Date End Date Genie Jackson MD [address] [facility] [place] [address] PCP - General Family Medicine 08/27/17 Team [...] Dr. Louis Spivey MD Emergency Provider Active Data Specialist Relationship Specialty Start Date End Date Genie Jackson MD [address] [facility] [place] [address] PCP - General Family Medicine 08/27/17 Data Specialist Relationship Specialty Start Date End Date Genie Jackson MD [address] [facility] [place] [address] PCP - General Family Medicine 08/27/17 Data Specialist Relationship Specialty Start Date End Date Genie Jackson MD [address] [facility] [place] [address] PCP - General Family Medicine 08/27/17 Team Status: Inactive Member Role Status Dates Dr. Genie Jackson MD Primary Care Provider Active Dr. Louis Spivey MD Attending Provider, Emergency Pro vider Active Team Status: Inactive Member Role Status Dates Dr. Genie Jackson MD Primary Care Provider Active Dr. Steffanie Ureña MD Emergency Provider Active Data Specialist Relationship Specialty Start Date End Date Genie Jackson MD [address] [facility] [place] [address] PCP - General Family Medicine 08/27/17 Data Specialist Relationship Specialty Start Date End Date Genie Jackson MD [address] [facility] [place] [address] PCP - General Family Medicine 08/27/17 Data Specialist Relationship Specialty Start Date End Date Genie Jackson MD [address] [facility] [place] [address] PCP - General Family Medicine 08/27/17 Data Specialist Relationship Specialty Start Date End Date Genie Jackson MD [address] [facility] [place] [address] PCP - General Family Medicine 08/27/17 Data Specialist Relationship Specialty Start Date End Date Genie Jackson MD [address] [facility] [place] [address] PCP - General Family Medicine 08/27/17 Data Specialist Relationship Specialty Start Date End Date Genie Jackson MD [address] [facility] [place] [address] PCP - General Family Medicine 08/27/17 Data Specialist Relationship Specialty Start Date End Date Genie Jackson MD [address] [facility] [place] [address] PCP - General Family Medicine 08/27/17 Team Status: Inactive Member Role Status Dates Dr. Genie Jackson MD Primary Care Provider Active Dr. Thierno Winston DO Emergency Provider Active Data Specialist Relationship Specialty Start Date End Date Genie Jackson MD [address] [facility] [place] [address] PCP - General Family Medicine 08/27/17 Data Specialist Relationship Specialty Start Date End Date Genie Jackson MD [address] [facility] [place] [address] PCP - General Family Medicine 08/27/17 Data Specialist Relationship Specialty Start Date End Date Genie Jackson MD [address] [facility] [place] [address] PCP - General Family Medicine 08/27/17 Data Specialist Relationship Specialty Start Date End Date Genie Jackson MD [address] [facility] [place] [address] PCP - General Family Medicine 08/27/17 Data Specialist Relationship Specialty Start Date End Date Genie Jackson MD [address] [facility] [place] [address] PCP - General Family Medicine 08/27/17 Data Specialist Relationship Specialty Start Date End Date Genie Jackson MD [address] [facility] [place] [address] PCP - General Family Medicine 08/27/17 Data Specialist Relationship Specialty Start Date End Date Genie Jackson MD [address] [facility] [place] [address] PCP - General Family Medicine 08/27/17 Data Specialist Relationship Specialty Start Date End Date Genie Jackson MD [address] [facility] [place] [address] PCP - General Family Medicine 08/27/17 Data Specialist Relationship Specialty Start Date End Date Genie Jackson MD [address] [facility] [place] [address] PCP - General Family Medicine 08/27/17 Data Specialist Relationship Specialty Start Date End Date Genie Jackson MD [address] [facility] [place] [address] PCP - General Family Medicine 08/27/17 Data Specialist Relationship Specialty Start Date End Date Genie Jackson MD [address] [place] [address] PCP - General Family Medicine 08/27/17 Data Specialist Relationship Specialty Start Date End Date Genie Jackson MD [address] [place] [address] PCP - General Family Medicine 08/27/17 Data Specialist Relationship Specialty Start Date End Date Genie Jackson MD [address] [facility] [place] [address] PCP - General Family Medicine 08/27/17 Ivelisse Ng APRN.FIRE 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 [address] [facility] [place] [address] [facility] 04/10/24 Data Specialist Relationship Specialty Start Date End Date Genie Jackson MD [address] [facility] [place] [address] PCP - General Family Medicine 08/27/17 Ivelisse Ng APRN.FIRE 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 [address] [facility] [place] [address] [facility] 04/10/24 Terrell Cloud APRN.FIRE 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 [address] [place] [address] [facility] 04/19/24 Data Specialist Relationship Specialty Start Date End Date Genie Jackson MD [address] [place] [address] PCP - General Family Medicine 08/27/17 Ivelisse Ng APRN.FIRE 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 [address] [place] [address] [facility] 04/10/24 Terrell Cloud APRN.FIRE 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 [address] [place] [address] [facility] 04/19/24 Data Specialist Relationship Specialty Start Date End Date Genie Jackson MD [address] [place] [address] PCP - General Family Medicine 08/27/17 Ivelisse Ng APRN.FIRE 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 [address] [place] [address] Bar [facility] 04/10/24 Terrell Cloud APRN.[employer] 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 [address] [place] [address] [facility] 04/19/24 Data Specialist Relationship Specialty Start Date End Date Genie Jackson MD [address] [place] [address] PCP - General Family Medicine 08/27/17 Ivelisse Ng APRN.[employer] 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 [address] [place] [address] [facility] 04/10/24 Terrell Cloud APRN.FIRE 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 [address] [place] [address] [facility] 04/19/24 Data Specialist Relationship Specialty Start Date End Date Genie Jackson MD [address] [place] [address] PCP - General Family Medicine 08/27/17 Ivelisse Ng APRN.FIRE 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 [address] [place] [address] [facility] 04/10/24 Terrell Cloud APRN.FIRE 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 [address] [place] [address] [facility] 04/19/24 Data Specialist Relationship Specialty Start Date End Date Genie Jackson MD [address] [place] [address] PCP - General Family Medicine 08/27/17 Ivelisse Ng APRN.FIRE 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 [address] [place] [address] [facility] 04/10/24 Terrell Cloud APRN.FIRE 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 [address] [place] [address] [facility] 04/19/24 Data Specialist Relationship Specialty Start Date End Date Genie Jackson MD [address] [place] [address] PCP - General Family Medicine 08/27/17 Ivelisse Ng APRN.FIRE 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 [address] [facility] [place] [address] [facility] 04/10/24 Terrell Cloud APRN.FIRE 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 [address] [facility] [place] [address] [facility] 04/19/24 Data Specialist Relationship Specialty Start Date End Date Genie Jackson MD [address] [facility] [place] [address] PCP - General Family Medicine 08/27/17 Ivelisse Ng APRN.FIRE 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 [address] [facility] [place] [address] [facility] 04/10/24 Terrell Cloud APRN.FIRE 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 [address] [facility] [place] [address] [facility] 04/[facility] Data Specialist Relationship Specialty Start Date End Date Genie Jackson MD [address] [facility] [place] [address] PCP - General Family Medicine 08/27/17 Ivelisse Ng APRN.FIRE 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 [address] [facility] [place] [address] [facility] 04/10/24 Terrell Cloud APRN.FIRE 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 [address] [facility] [place] [address] [facility] 04/19/24 Data Specialist Relationship Specialty Start Date End Date Genie Jackson MD [address] [place] [address] PCP - General Family Medicine 08/27/17 Ivelisse Ng APRN.FIRE 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 [address] [place] [address] [facility] 04/10/24 Terrell Cloud APRN.FIRE 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 [address] [place] [address] [facility] 04/19/24 Data Specialist Relationship Specialty Start Date End Date Genie Jackson MD [address] [place] [address] PCP - General Family Medicine 08/27/17 Ivelisse Ng APRN.FIRE 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 [address] [place] [address] [facility] 04/10/24 Terrell Cloud APRN.FIRE 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 [address] [place] [address] [facility] 04/19/24 Data Specialist Relationship Specialty Start Date End Date Genie Jackson MD [address] [place] [address] PCP - General Family Medicine 08/27/17 Ivelisse Ng APRN.FIRE 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 [address] [place] [address] [facility] 04/10/24 Terrell Cloud APRN.FIRE 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 [address] [place] [address] [facility] 04/19/24 Data Specialist Relationship Specialty Start Date End Date Genie Jackson MD [address] [facility] [place] [address] PCP - General Family Medicine 08/27/17 Ivelisse Ng APRN.FIRE 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 [address] [facility] [place] [address] [facility] 04/10/24 Terrell Cloud APRN.FIRE 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 [address] [facility] [place] [address] [facility] 04/19/24 Data Specialist Relationship Specialty Start Date End Date Genie Jackson MD [address] [facility] [place] [address] PCP - General Family Medicine 08/27/17 Terrell Cloud APRN.FIRE 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 [address] [facility] [place] [address] [facility] 04/19/24 Data Specialist Relationship Specialty Start Date End Date Genie Jackson MD [address] [facility] [place] [address] PCP - General Family Medicine 08/27/17 Ivelisse Ng APRN.FIRE 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 [address] [facility] [place] [address] [facility] 04/10/24 09/14/24 Terrell Cloud APRN.FIRE 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 [address] [facility] [place] [address] [facility] 04/19/24 Data Specialist Relationship Specialty Start Date End Date Genie Jackson MD [address] [facility] [place] [address] PCP - General Family Medicine 08/27/17 Terrell Cloud APRN.FIRE 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 [address] [place] [address] [facility] 04/19/24 Data Specialist Relationship Specialty Start Date End Date Genie Jackson MD [address] [place] [address] PCP - General Family Medicine 08/27/17 Terrell Cloud APRN.FIRE 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 [address] [place] [address] [facility] 04/19/24 Data Specialist Relationship Specialty Start Date End Date Genie Jackson MD [address] [place] [address] PCP - General Family Medicine 08/27/17 Terrell Cloud APRN.FIRE 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 [address] [place] [address] [facility] 04/19/24 Data Specialist Relationship Specialty Start Date End Date Genie Jackson MD [address] [place] [address] PCP - General Family Medicine 08/27/17 Terrell Cloud APRN.FIRE EXTINGUISHER MECHANIC [address] [place] [address] [facility] 04/19/24 Data Specialist Relationship Specialty Start Date End Date Genie Jackson MD [address] [place] [address] PCP - General Family Medicine 08/27/17 Terrell Cloud APRN.FIRE EXTINGUISHER MECHANIC [address] [place] [address] [facility] 04/19/24 Team Status: Active Member Role/Relationship Status Dates Dr. Genie Jackson MD Family Provider Active Dr. Genie Jackson MD Primary Care Provider Active Team Status: Inactive Member Role/Relationship Status Dates Dr. Genie Jackson MD Primary Care Provider Active Start: November 19, 2024 End: November 20, 2024 Dr. Steffanie Lopez MD Attending Provider Active Start: November 19, 2024 End: November 20, 2024 Dr. Steffanie Lopez MD Referring Provider Active Start: November 19, 2024 End: November 20, 2024 Data Specialist Relationship Specialty Start Date End Date Genie Jackson MD [address] [place] [address] PCP - General Family Medicine 08/27/17 Terrell Cloud APRN.FIRE EXTINGUISHER MECHANIC [address] [place] [address] [facility] 04/19/24 Data Specialist Relationship Specialty Start Date End Date Genie Jackson MD [address] [place] [address] PCP - General Family Medicine 08/27/17 Terrell Cloud APRN.FIRE EXTINGUISHER MECHANIC [address] [place] [address] [facility] 04/19/24 Data Specialist Relationship Specialty Start Date End Date Genie Jackson MD [address] [place] [address] PCP - General Family Medicine 08/27/17 Terrell Cloud APRN.FIRE EXTINGUISHER MECHANIC [address] [facility] [place] [address] [facility] 04/19/24 Team Status: Inactive Member Role/Relationship Status Dates Dr. Genie Jackson MD Primary Care Provider Active Start: December 23, 2024 End: December 23, 2024 Roxana Fry CNM Attending Provider Active Start: December 23, 2024 End: December 23, 2024 Roxana Fry CNM Referring Provider Active Start: December 23, 2024 End: December 23, 2024 Data Specialist Relationship Specialty Start Date End Date Genie Jackson MD [address] [place] [address] PCP - General Family Medicine 08/27/17 Terrell Cloud APRN.FIRE EXTINGUISHER MECHANIC [address] [place] [address] [facility] 04/19/24 Data Specialist Relationship Specialty Start Date End Date Genie Jackson MD [address] [place] [address] PCP - General Family Medicine 08/27/17 Terrell Cloud APRN.FIRE EXTINGUISHER MECHANIC [address] [facility] [place] [address] [facility] 04/19/24 Data Specialist Relationship Specialty Start Date End Date Genie Jackson MD [address] [place] [address] PCP - General Family Medicine 08/27/17 Terrell Cloud APRN.FIRE EXTINGUISHER MECHANIC [address] [place] [address] [facility] 04/19/24 Data Specialist Relationship Specialty Start Date End Date Genie Jackson MD [address] [place] [address] PCP - General Family Medicine 08/27/17 Terrell Cloud APRN.FIRE EXTINGUISHER MECHANIC [address] [place] [address] [facility] 04[facility] Data Specialist Relationship Specialty Start Date End Date Genie Jackson MD [address] [place] [address] PCP - General Family Medicine 08/27/17 Terrell Cloud APRN.FIRE EXTINGUISHER MECHANIC [address] [place] [address] [facility] 04/[facility] Data Specialist Relationship Specialty Start Date End Date Genie Jackson MD [address] [place] [address] PCP - General Family Medicine 08/27/17 Terrell Cloud APRN.FIRE EXTINGUISHER MECHANIC [address] [place] [address] [facility] 04/19/24 Goals (unrecognized section and content) Goals may be documented in a n alternate sectionGoals may be documented in an alternate sectionGoals may be documented in an alternate sectionGoals may be documented in an alternate section No data available for this sectionGoals may be documented in an alternate sectionGoals may be documented in an alternate section <item><item> Privacy Markings (unrecogniz ed section [...] BE BASED ON THE PRIMARY CLINICAL RECORDS. [employer] [facility]. provides no warranty or guarantee of the accuracy or completeness of information in this document.
[2025-02-17 21:16] LABS: D-Dimer Quantitative (DVT/PE) 1.82 FEU/ug/m (0.27-0.49)
--- NOTE | 2025-02-17 21:25 | CT_ITS ---
PROCEDURE: CTA CHEST W/WO CONTRAST 02/17/2025 REASON FOR EXAM: DYSPNEA, TACHYCARDIA AND ELEVATED D-DIMER TECHNIQUE: Procedure Code: [id number] Modality: CT Procedure: CTA CHEST W/WO CONTRAST Multidetector CT angiography of the chest with intravenous contrast including multiplanar and post-processed maximum intensity projection (MIP) were generated and interpreted. CONTRAST: Isovue-300 VOLUME: 100 mL One or more dose reduction techniques were used (e.g., Automated exposure control, adjustment of the mA and/or kV according to patient size, use of iterative reconstruction technique). RADIATION DOSE SUMMARY: DLP: 549 mGycm COMPARISON: None available FINDINGS: Opacification of the pulmonary arterial tree is adequate Pulmonary artery and thoracic vessels: There are no filling defects in the central pulmonary arteries. Questionable small focal filling defects at the origin of the superior lobar artery of the left lung (series 601.2, image 177). The main pulmonary artery is dilated measuring up to 3.2 cm. The thoracic aorta is normal in caliber. Pulmonary parenchyma: Clear lungs. Airways: The central airways are patent. Pleural space: No pneumothorax or pleural effusion. Heart and pericardium: The heart is normal in size. No pericardial effusion. Mediastinum and dudley: Unremarkable. Osseous structures: No aggressive osseous lesion. Upper visualized abdomen: Unremarkable. CT/CTA Chest W/WO Contrast IMPRESSION: 1. No central pulmonary embolism. Questionable small pulmonary embolism at the superior lobar artery of the left lung. 2. No focal lung consolidation. Reading Location: [id number]
[2025-02-17 21:43] LABS: Troponin T High Sens 2 HR < 6 ng/L (<=14)
--- NOTE | 2025-02-17 22:15 | EDS_ITS ---
HPI History of Present Illness Chief Complaint: Chest Pain Detail of Chief Complaint: Chest discomfort, shortness of breath, rapid heart rate Informant: patient and other (OB called to clear for PE) Onset/Context/Timing Onset: Today and Hours Activity at onset: sudden and rest Timing: Continuous Quality: Positive for Pressure Location: Substernal Current Severity: Mild Maximum Severity: Moderate Worsened By: Exertion and Breathing; Not Worsened By Movement of Arm, Movement of Torso, Palpation or Coughing Relieved By: Nothing Associated Symptoms: Positive for Nausea and Dyspnea; Negative for Vomiting, Diaphoresis, Cough, Fever, Lightheadedness or Acid Reflux Narrative Narrative: Patient is a 25-year-old G2, P1 Ab0 female. Her first was complicated by preeclampsia. She is approximately 37 weeks gestation. She presents because abrupt onset of chest pain and shortness of breath. She complains of dyspnea with minimal activity. She has pain also with breathing. She denies fever, chills night sweats. She does complain of bifrontal headache. I double vision blurred vision loss of vision. Eyes photophobia or sonophobia. Denies neck pain or neck stiffness. She denies any abdominal pain, nausea, vomit or diarrhea. She denies dysuria, frequency, urgency or hematuria. She denies any skin lesions. She has no history of PE or DVT. CVD Risk Factors: Negative for Hypertension, Diabetes, Hypercholesterolemia, Family History 1' </=55 or Smoking PE Risk Factors: Positive for - (Third trimester ); Negative for Recent Travel/Surgery, Recent Immobilization, Prior DVT or PE, Cancer or OCP + Smoking + >/=35 TAD Risk Factors: Negative for Marfan's Syndrome, Hypertension or Family History [facility] Medical History Polyhydramnios affecting Colitis IBS (irritable bowel syndrome) GERD (gastroesophageal reflux disease) Hypothyroidism Home Medications ?Medication ?Instructions ?Recorded ?Last Taken ?Type buspirone 15 mg tablet 15 mg PO TID depression 06/0512/23/24 History aspirin 81 mg capsule 162 mg PO QDAY preeclampsia 11/19/24 12/22/24 History esomeprazole magnesium 40 mg 40 mg PO DAILY acid reflu x 11/19/24 12/23/24 History capsule,delayed release (Nexium) vit no.95-ferrous 1 tab PO DAILY 12/23/24 History fumarate 28 mg-folic acid 800 mcg tablet () sertraline 50 mg tablet 75 mg PO DAILY anx,depressio n 11/19/24 12/23/24 History ferrous sulfate 325 mg (65 mg 325 mg PO QODAY 02/17/25 Unknown History iron) tablet (Feosol) levothyroxine 125 mcg tablet 62.5 mcg PO DAILY 5 Unknown History ondansetron 4 mg disintegrating 4 mg PO Q8H PRN PRN na usea/vomiting 02/17/25 Unknown History tablet Allergy/AdvReac Type Severity Reaction Status Date / Time No Known Allergies Allergy Verified 02/17/25 18:58 Social History Smoking Status: Current every day smoker tobacco type: e-cigarettes ROS ROS ED Constitutional Constitutional ED: Denies chills, fever(s), subjective or sweats Eyes Eyes: Reports none ENT ENT ED: Denies ear pain or rhinorrhea Cardiovascular Cardiovascular: Reports as per HPI; Denies orthopnea or paroxysmal nocturnal dyspnea Respiratory/Chest Respiratory/Chest: Reports dyspnea and dyspnea on exertion; Denies cough, orthopnea or paroxysmal nocturnal dyspnea Gastrointestinal Gastrointestinal: Denies abdominal pain, diarrhea or vomiting Genitourinary Genitourinary ED: Reports urinary frequency; Denies dysuria or hematuria Musculoskeletal Musculoskeletal: Denies arthralgias, back pain or myalgias Integumentary Denies rash Neurologic Neurologic: Denies paresthesias or weakness Endocrine Endocrinology: Denies cold intolerance or heat intolerance Hematologic/Lymphatic Hematologic/Lymphatic: Denies easy bleeding or easy bruising EXAM Physical Exam Const Vital Signs: 02/17/25 18:59 02/17/25 19:03 02/17/25 19:30 Temperature 97.6 F L Temperature Source Temporal Pulse Rate 117 H 132 H Respiratory Rate 18 32 H Respiratory Effort Respiratory Depth Respiratory Pattern Blood Pressure 135/90 H 126/85 H Blood Pressure Mean 105 98 Pulse Ox 95 97 Oxygen Delivery Method Room Air Room Air Room Air 02/17/25 19:35 02/17/25 19:40 02/17/25 20:11 Temperature Temperature Source Pulse Rate 120 H Respiratory Rate 26 H Respiratory Effort Short of Breath Short of Breath Respiratory Depth Normal Respiratory Pattern Tachypnea Blood Pressure 117/90 H Blood Pressure Mean 99 Pulse Ox 98 Oxygen Delivery Method Room Air Room Air 02/17/25 21:00 02/17/25 22:00 02/17/25 23:02 Temperature 98.2 F Temperature Source Pulse Rate 104 H 111 H 99 Respiratory Rate 26 H 16 20 H Respiratory Effort Respiratory Depth Respiratory Pattern Blood Pressure 118/77 109/79 141/91 H Blood Pressure Mean 90 89 107 Pulse Ox 96 98 99 Oxygen Delivery Method Room Air Positive well nourished, well developed and obese Constitutional Narrative: Patient is tachycardic and tachypneic. She is breathing quicker than 18 as documented. General Appearance ED: well developed; Negative for NAD or pallor Nutritional Appearance: obese HEENT Reports moist mucous membranes normocephalic and atraumatic Eyes PERRL and EOMs intact bilaterally General Eye ED: Negative for pale conjunctiva or scleral icterus Neck no lymphadenopathy, supple and no JVD Chest Wall inspection of chest normal and palpation of chest normal Resp normal respiratory effort and clear to auscultation bilaterally Resp Narrative: Patient is tachypneic and breathing quicker than 18 times a minute Cardio regular rhythm, S1 normal heart sound, S2 normal heart sound and no murmurs Rate: tachycardic Peripheral Pulses: pulses 2+ throughout GI GI Narrative: Fundal height is 2 to 3 fingerbreadths below the xiphoid process. Back/Spine no CVA tenderness Extremity normal to inspection General Extremety ED: Negative for edema or pulses abnormal General Extremity: Negative for edema or pulses abnormal Neuro oriented x3 and CN's II-XII intact bilaterally Neuro Narrative: Patient DTR 1+ at the bicep, brachialis, tricep, patella and ankle. She has no clonus. There is no Babinski sign noted. Sensorium / Orientation: awake and alert Psych mental status grossly normal Skin no rashes or lesions noted and no wounds General Skin Exam: Negative for jaundice or pallor MDM MDM MDM Narrative Medical decision making narrative: Patient appears uncomfortable. In light of the fact she had abrupt onset of chest pain shortness of breath tachycardia need to evaluate for pulmonary embolus. Doubt cardiac or pneumonia or pneumothorax. Lab Data Attestation: I reviewed the patient's lab results. Lab results narrative: CBC reveals elevated white count. Patient is mildly anemic with microcytic indices. D-dimer is elevated. Electrolyte panel was unremarkable. First and 2-hour troponin less than 6. Labs: Laboratory Results - last 24 hr 02/17/25 02/17/25 02/17/25 19:10 21:15 23:20 WBC 13.3 H RBC 4.58 Hgb 11.7 L Hct 35.2 L MCV 76.9 L MCH 25.5 L MCHC 33.2 RDW Std Deviation 44.6 H RDW Coeff of Nawaf 16.6 H Plt Count 289 MPV 9.1 Immature Gran % (Auto) 0.800 Neut % (Auto) 75.0 H Lymph % (Auto) 16.9 L [place] % (Auto) 6.1 Eos % (Auto) 0.8 Baso % (Auto) 0.4 Absolute Neuts (auto) 10.0 H Absolute Lymphs (auto) 2.25 Nucleated RBC % 0 PT 12.3 INR 0.9 APTT 24.9 D-Dimer Quant (PE/DVT) 1.82 H* Sodium 136 Potassium 3.8 Chloride 102 Carbon Dioxide 18.8 L Anion Gap 15 BUN 8 Creatinine 0.54 L Estim Creat Clear Calc 202.14 Est GFR (MDRD) Non-Af 129 BUN/Creatinine Ratio 14.6 Glucose 111 H Calcium 9.5 Troponin T High Sens < 6 Troponin T Hi Sens 2 Hr < 6 Radiography Chest X-Ray - ED: 2 View, Read by ED Physician, Normal, Heart, Lungs, Mediastinum, Bony Structures and No Acute Disease Diagnostic Testing: Clinical Impression(s) from Imaging Studies Chest X-Ray 02/17/25 19:18 IMPRESSION: No acute cardiopulmonary disease. Reading Location: [id number] Chest CTA 02/17/25 21:25 IMPRESSION: 1. No central pulmonary embolism. Questionable small pulmonary embolism at the superior lobar artery of the left lung. 2. No focal lung consolidation. Reading Location: [id number] In light of the radiology read Bhargavi Navas who sent the patient and was paged. EKG Initial EKG: Attestation: I personally reviewed and interpreted this EKG as follows: Interpretation: Sinus Tachycardia (Rate is 137. There is nonseptic ST-T wave changes. ME was 144 ms. Cures duration 70 ms. QT duration 30 ms. [place] is normal.) Management Discussion w/another healthcare provider: Hospitalist (Spoke to the hospitalist. Plan is admit woman Center. She will help manage the pulmonary embolus treatment. Patient was started on heparin.), Costume Rental Clerk (Spoke to Dr. Reid. She requested medicine to help with management of PE.) and Other (Spoke with nurse practitioner Bhargavi Navas for the [facility]. She was informed of results. She states she needs to contact Dr. Reid and that she would be calling me back.) Discharge Plan Dx/Rx/DC Orders Clinical Impression: Pulmonary embolus, Third trimester Disposition Disposition: Acute Care [facility]
--- NOTE | 2025-02-17 23:15 | CON.PCM.HO_ITS ---
Assessment & Plan Assessment/Plan (1) Third trimester : (2) Pulmonary embolus: PLAN: Plan #Acute left sided PE in third trimester gestation * Patient admitted with a complaint of shortness of breath and palpitations and episodic chest pain. Chest x-ray showed no acute cardiopulmonary pathology. D-dimer was elevated so CTA of the chest was done which showed no central PE and showed a questionable small pulmonary embolism of the superior lobar artery of the left lung and no focal lung consolidation * Patient admitted to the service of obstetrics. * Will start on therapeutic Lovenox * #Third trimester : Management as per obstetrics. Currently 37 weeks. States she is being monitored for polyhydramnios. #GERD: On PPI #Hypothyroidism: On Synthroid #Depression: On sertraline #Nicotine dependence: Counseled to quit. Patient asking for nicotine patch. Will give nicotine gum instead as it is relatively short acting and therefore safer in . DVT prophylaxis: Not indicated as patient is being treated for PE CODE STATUS: Full code Thank you for the courtesy of the consult. Hospitalist service will continue to follow with you. # HPI Consult Data Date of Consult: 02/17/25 HPI Narrative Reason for Consultation: pulmonary embolism HPI Narrative: SYED CAIN, is a 25 F who is 2 para 1 currently at 37 weeks gestation who was admitted to the ED on 02/17/2025 with complaint of palpitations and shortness of breath and chest pain. His symptoms have been going on for about a day. She also felt like her anxiety was acting up. She denied any fever or chills but did admit to a frontal headache. She denied any photophobia or any blurred vision or loss of vision. She had no other abdominal symptoms. She denied any recent travel. She denies smoking but says she vapes. She does not have a history of PE. She said her shortness of breath worsened with mild exertion. Review of systems otherwise negative. Vitals in the ED were blood pressure of 141/91, pulse rate of 99 and respiratory rate of 20. Temperature was 98.2 Fahrenheit and she was saturating at 99% on room air. CBC showed hemoglobin of 11.7 with WBC of 13.3 and platelets of 289. D-dimer was elevated at 1.82. Chemistry showed sodium of 136 with potassium of 3.8 and anion gap of 15. Creatinine was 0.54. Chest x-ray showed no acute cardiopulmonary pathology. CTA of the chest showed no evidence of central PE and showed a questionable small pulmonary embolism at the superior lobar artery of the left lung and there was no evidence of any focal lung consolidation. She was admitted to be managed for small left-sided PE. Hospitalist service was consulted for medical management. She was admitted to the service of will be. [facility] Medical History Polyhydramnios affecting Colitis IBS (irritable bowel syndrome) GERD (gastroesophageal reflux disease) Hypothyroidism Home Medications ?Medication ?Instructions ?Recorded ?Last Taken ?Type buspirone 15 mg tablet 15 mg PO TID depression 06/0512/23/24 History aspirin 81 mg capsule 162 mg PO QDAY preeclampsia 11/19/24 12/22/24 History esomeprazole magnesium 40 mg 40 mg PO DAILY acid reflu x 11/19/24 12/23/24 History capsule,delayed release (Nexium) vit no.95-ferrous 1 tab PO DAILY 12/23/24 History fumarate 28 mg-folic acid 800 mcg tablet () sertraline 50 mg tablet 75 mg PO DAILY anx,depressio n 11/19/24 12/23/24 History ferrous sulfate 325 mg (65 mg 325 mg PO QODAY 02/17/25 Unknown History iron) tablet (Feosol) levothyroxine 125 mcg tablet 62.5 mcg PO DAILY 5 Unknown History ondansetron 4 mg disintegrating 4 mg PO Q8H PRN PRN na usea/vomiting 02/17/25 Unknown History tablet Allergy/AdvReac Type Severity Reaction Status Date / Time No Known Allergies Allergy Verified 02/17/25 18:58 Social History Smoking Status: Current every day smoker tobacco type: e-cigarettes ROS Constitutional Constitutional: Denies anorexia, chills, fatigue, fever(s), malaise or weakness Eyes Eyes: Denies change in vision ENT HEENT: Denies dysphagia, headache(s) or sore throat Cardiovascular Cardiovascular: Reports palpitations and rapid heart rate; Denies chest pain, dyspnea on exertion, edema, lightheadedness, orthopnea or syncope Respiratory/Chest Respiratory/Chest: Reports shortness of breath with exertion; Denies cough, dyspnea, shortness of breath at rest or wheezing Gastrointestinal Gastrointestinal: Denies abdominal pain, constipation, diarrhea, nausea or vomiting Genitourinary Genitourinary: Denies dysuria, nocturia, urinary frequency or urinary hesitancy Neurologic Neurologic: Denies confusion, dizziness, focal weakness, headache(s), numbness, seizures or syncope Psychiatric Psychiatric: Reports depression; Denies anxiety Endocrine Endocrinology: Denies change in body appearance Physical Exam Const alert, oriented x3 and no apparent distress Constitutional Narrative: class III obesity General Appearance: cooperative HEENT normocephalic, head/scalp atraumatic, moist oral mucous membranes and oropharynx normal Mouth: oral and palatal mucosa normal Eyes EOMs intact bilaterally and conjunctivae normal Neck supple and no JVD Resp normal respiratory effort, no retractions, no use of accessory muscles and clear to auscultation bilaterally Cardio regular rate, regular rhythm, S1 normal heart sound, S2 normal heart sound and no murmurs GI soft to palpation and non-tender GI Narrative: gravid uterus at 37 weeks Extremity full ROM and no clubbing, cyanosis or edema Neuro CN's II-XII intact bilaterally, moves all extremities and no focal motor deficits Motor Exam: strength 5/5 throughout Psych affect normal Lab / Micro Data 02/17/25 19:10 02/17/25 19:10 Labs: Laboratory Results - last 24 hr 02/17/25 19:10: WBC 13.3 H, RBC 4.58, Hgb 11.7 L, Hct 35.2 L, MCV 76.9 L, MCH 25.5 L, MCHC 33.2, RDW Std Deviation 44.6 H, RDW Coeff of Nawaf 16.6 H, Plt Count 289, MPV 9.1, Immature Gran % (Auto) 0.800, Neut % (Auto) 75.0 H, Lymph % (Auto) 16.9 L, Dougherty % (Auto) 6.1, Eos % (Auto) 0.8, Baso % (Auto) 0.4, Absolute Neuts (auto) 10.0 H, Absolute Lymphs (auto) 2.25, Nucleated RBC % 0, D-Dimer Quant (PE/DVT) 1.82 H*, Sodium 136, Potassium 3.8, Chloride 102, Carbon Dioxide 18.8 L , Anion Gap 15, BUN 8, Creatinine 0.54 L, Estim Creat Clear Calc 202.14, Est GFR (MDRD) Non-Af 129, BUN/Creatinine Ratio 14.6, Glucose 111 H, Calcium 9.5, Troponin T High Sens < 6 02/17/25 21:15: Troponin T Hi Sens 2 Hr < 6 Imaging Radiology Impression Chest X-Ray 02/17/25 19:18 IMPRESSION: No acute cardiopulmonary disease. Reading Location: [id number] Chest CTA 02/17/25 21:25 IMPRESSION: 1. No central pulmonary embolism. Questionable small pulmonary embolism at the superior lobar artery of the left lung. 2. No focal lung consolidation. Reading Location: [id number] Charges/Coding Visit Charges Inpatient E&M: 66011 Subs Hosp L2
[2025-02-17] MEDS: HEPARIN/D5w 25,000 UNITS 25,000 UNITS/250 ML IV.SOLN. 18.9 UNITS CONT INF (23:35)
--- OUTSIDE RECORDS SUMMARY | 2025-02-17 23:36 | XMS RPT_ITS | CCD ---
Author Organization [facility] Care Team Providers [place] Transportation Worker Name Role Phone ABNER TINSLEY Unavailable Unavailable [...] Genie Jackson MD Primary Care Provider Tannhof RESTAURANT LEAD.SUPERVISOR ESTIMATOR AND DRAFTER, Ivelisse Unavailable Husam RESTAURANT LEAD.SUPERVISOR ESTIMATOR AND DRAFTERTerrell Unavailable Tannhof RESTAURANT LEAD.SUPERVISOR ESTIMATOR AND DRAFTER, Ivelisse Unavailable Tannhof RESTAURANT LEAD.SUPERVISOR ESTIMATOR AND DRAFTER, Ivelisse Unavailable Dr. Genie Jackson MD Primary Care Provider Dr. Steffanie Lopez MD Attending Provider [phone] Dr. Steffanie Lopez MD Referring Provider Roxana [...] Start: 01-11-2014 take 3 tablets by mo [facility] once daily Levothyroxine 25 MCG tablet Active [...] Comment on above: Take 1 capsule by [facility] twice daily with meals for 5 [...] DAILY November 19, 2024 12:00am polymyxin b 64239 unt/ml / trimethoprim 1 mg/ml ophthalmic solution [...] on above: Take 2 tablets by mo [facility] once daily for 5 days. VIT 1-GGDW-KAHGJ-DHA ORAL (20 sources) VIT 4-DSRV-NNMJC-DHA ORAL Take by mouth. Active sertraline 50 [...] Drug Class(es) Dates Sig (Normalized) Sig (Original) [id number] 200 actuat albuterol 0.09 mg/actuat metered dose [...] on above: Take 1 capsule by mo [facility] once daily. fluticasone propionate 0.05 mg/actuat metered [...] Comment on above: Take 1 capsule by [facility] once daily. 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] Onset: 3 Episodic Other [...] Unclassified (1 source) Rubella non-immune status, antepartum ([facility]); Translations: [Rubella non-immune status, antepartum ([facility])] Onset: Urinary tract infections (1 source) Acute [...] Translations: [Hx of preeclampsia, prior , currently ([facility])] Onset: 08-31-2024 Episodic Other complications of (1 [...] of ; Translations: [12 weeks gestation of ([facility])] Onset: 08-31-2024 Episodic Residual codes; unclassified (1 source) Personal history of other complications of , childbirth and the puerperium; Translations: [History of hemorrhage] Onset: 08-31-2024 Episodic Results Test Name Value Interpretation Reference Range Facility CBC W Auto Differential pane l (Bld)on 01-27-2025 Basophils (Bld) [#/Vol] 0.06 10*3/uL Normal <0.11 [facility] Comment on above: Order Comment: Speci men Type: BLOOD SPECIMENOrdering Facility: [facility] Address: [address] [place] [address] Performed By: #### 5 7021-8 ####[facility] LABCLIA [id number] [place] [address] [place] Basophils/100 WBC (Bld) 0.5 % Normal [facility] Comment on above: Order Comment: Speci men Type: BLOOD SPECIMENOrdering Facility: [facility] Address: [address] [place] [address] Performed By: #### 5 7021-8 ####[facility] LABCLIA [id number] [place] [address] [place] Differential cell count method Nom (Bld) Auto Normal [facility] Comment on above: Order Comment: Speci men Type: BLOOD SPECIMENOrdering Facility: [facility] Address: [address] [place] [address] Performed By: #### 5 7021-8 ####[facility] LABIA [id number] [place] [address] [place] Eosinophils (Bld) [#/Vol] 0.20 10*3/uL Normal <0.46 [facility] Comment on above: Order Comment: Speci men Type: BLOOD SPECIMENOrdering Facility: [facility] Address: [address] [place] [address] Performed By: #### 5 7021-8 ####[facility] LABCLIA [id number] [place] [address] [place] Eosinophils/100 WBC (Bld) 1.7 % Normal [facility] Comment on above: Order Comment: Speci men Type: BLOOD SPECIMENOrdering Facility: [facility] Address: [address] [place] [address] Performed By: #### 5 7021-8 ####[facility] LABCLIA [id number] [address], [place] [address] [place] Erythrocyte distribution width (RBC) [Ratio] 15.6 % High 11.5-15.0 [facility] Comment on above: Order Comment: Speci men Type: BLOOD SPECIMENOrdering Facility: [facility] Address: [address] [place] [address] Performed By: #### 5 7021-8 ####[facility] LABIA [id number] [place] [address] [place] Hematocrit (Bld) [Volume fraction] 34.8 % Low 36.0-46.0 [facility] Comment on above: Order Comment: Speci men Type: BLOOD SPECIMENOrdering Facility: [facility] Address: [address] [place] [address] Performed By: #### 5 7021-8 ####[facility] LABCLIA [id number] [place] [address] [place] Hemoglobin (Bld) [Mass/Vol] 11.2 g/dL Low 11.5-15.5 [facility] Comment on above: Order Comment: Speci men Type: BLOOD SPECIMENOrdering Facility: [facility] Address: [address] [place] [address] Performed By: #### 5 7021-8 ####[facility] LABIA [id number] [id number] [place] [address] [place] Immature granulocytes (Bld) [#/Vol] 0.22 10*3/uL High <0.10 [facility] Comment on above: Order Comment: Speci men Type: BLOOD SPECIMENOrdering Facility: [facility] Address: [address] [place] [address] Performed By: #### 5 7021-8 ####[facility] LABCLIA [id number] [place] [address] [place] Immature granulocytes/100 WBC (Bld) 1.9 % Normal [facility] Comment on above: Order Comment: Speci men Type: BLOOD SPECIMENOrdering Facility: [facility] Address: [address] [place] [address] Performed By: #### 5 7021-8 ####[facility] LABCLIA [id number] [place] [address] [place] Lymphocytes (Bld) [#/Vol] 1.70 10*3/uL Normal 1.00-4.00 [facility] Comment on above: Order Comment: Speci men Type: BLOOD SPECIMENOrdering Facility: [facility] Address: [address] [place] [address] Performed By: #### 5 7021-8 ####[facility] LABCLIA [id number] [place] [address] [place] Lymphocytes/100 WBC (Bld) 14.9 % Normal [facility] Comment on above: Order Comment: Speci men Type: BLOOD SPECIMENOrdering Facility: [facility] Address: [address] [place] [address] Performed By: #### 5 7021-8 ####[facility] LABCLIA [id number] [place] [address] [place] MCH (RBC) [Entitic mass] 25.3 pg Low 26.0-34.0 [facility] Comment on above: Order Comment: Speci men Type: BLOOD SPECIMENOrdering Facility: [facility] Address: [address] [place] [address] Performed By: #### 5 7021-8 ####[facility] LABCLIA [id number] [address], [place] [address] [place] MCHC (RBC) [Mass/Vol] 32.2 g/dL Normal 30.5-36.0 [facility] Comment on above: Order Comment: Speci men Type: BLOOD SPECIMENOrdering Facility: [facility] Address: [address] [place] [address] Performed By: #### 5 7021-8 ####[facility] LABIA [id number] [address], [place] [address] [place] MCV (RBC) [Entitic vol] 78.6 fL Low 80.0-100.0 [facility] Comment on above: Order Comment: Speci men Type: BLOOD SPECIMENOrdering Facility: [facility] Address: [address] [place] [address] Performed By: #### 5 7021-8 ####[facility] LABIA [id number] [address], [place] [address] [place] Monocytes (Bld) [#/Vol] 0.92 10*3/uL High <0.87 [facility] Comment on above: Order Comment: Speci men Type: BLOOD SPECIMENOrdering Facility: [facility] Address: [address] [place] [address] Performed By: #### 5 7021-8 ####[facility] LABCLIA [id number] [place] [id number] [place] Monocytes/100 WBC (Bld) 8.0 % Normal [facility] Comment on above: Order Comment: Speci men Type: BLOOD SPECIMENOrdering Facility: [facility] Address: [address] [place] [address] Performed By: #### 5 7021-8 ####[facility] LABIA [id number] [place] [id number] [place] Neutrophils (Bld) [#/Vol] 8.34 10*3/uL High 1.45-7.50 [facility] Comment on above: Order Comment: Speci men Type: BLOOD SPECIMENOrdering Facility: [facility] Address: [address] [place] [address] Performed By: #### 5 7021-8 ####[facility] LABCLIA [id number] [facility] [place] [address] [place] Neutrophils/100 WBC (Bld) 73.0 % Normal [facility] Comment on above: Order Comment: Speci men Type: BLOOD SPECIMENOrdering Facility: [facility] Address: [address] [place] [address] Performed By: #### 5 7021-8 ####[facility] LABCLIA [id number] [place] [address] [place] Nucleated RBC (Bld) [#/Vol] 10*3/uL Normal <0.01 [facility] Comment on above: Order Comment: Speci men Type: BLOOD SPECIMENOrdering Facility: [facility] Address: [address] [place] [address] Performed By: #### 5 7021-8 ####[facility] LABCLIA [id number] [place] [address] [place] Nucleated RBC/100 WBC (Bld) [Ratio] 0.0 /[address] [facility] Comment on above: Order Comment: Speci men Type: BLOOD SPECIMENOrdering Facility: [facility] Address: [address] [place] [address] Performed By: #### 5 7021-8 ####[facility] LABCLIA [id number] [place] [address] [place] Platelet mean volume (Bld) [Entitic vol] 9.4 fL Normal 9.0-12.7 [facility] Comment on above: Order Comment: Speci men Type: BLOOD SPECIMENOrdering Facility: [facility] Address: [address] [place] [address] Performed By: #### 5 7021-8 ####[facility] LABIA [id number] [place] [id number] [place] Platelets (Bld) [#/Vol] 274 10*3/uL Normal 150-400 [facility] Comment on above: Order Comment: Speci men Type: BLOOD SPECIMENOrdering Facility: [facility] Address: [address] [place] [address] Performed By: #### 5 7021-8 ####[facility] LABIA [id number] [place] [address] [place] RBC (Bld) [#/Vol] 4.43 10*6/uL Normal 3.90-5.20 [facility] Comment on above: Order Comment: Speci men Type: BLOOD SPECIMENOrdering Facility: [facility] Address: [address] [place] [address] Performed By: #### 5 7021-8 ####[facility] LABIA [id number] [place] [address] [place] WBC (Bld) [#/Vol] 11.44 10*3/uL High 3.70-11.00 [facility] Comment on above: Order Comment: Speci men Type: BLOOD SPECIMENOrdering Facility: [facility] Address: [address] [place] [address] Performed By: #### 5 7021-8 ####[facility] LABIA [id number] [place] [id number] [place] T4 Free SerPl-mCncon 025 Free T4 [Mass/Vol] 0.9 ng/dL Normal 0.9-1.7 [facility] Comment on above: Order Comment: Speci men Type: BLOOD SPECIMENOrdering Facility: [facility] Address: [address] [place] [address] Performed By: #### 3 024-7, 3016-3 ####[facility] LABCLIA [id number] [place] [address] [place] TSH SerPl-aCncon 01-27-2025 TSH Qn 2.210 m[IU]/L Normal 0.270-4.200 [facility] Comment on above: Order Comment: Speci men Type: BLOOD SPECIMENOrdering Facility: [facility] Address: [address] [place] [address] Result Comment: If t he patient is [...] Santiago, et al. 2017 Guidelines of the [employer] for the Diagnosis and Management of Thyroid Disease during and the . Thyroid, 2017:27:3:315-389. Performed By: #### 3 024-7, 3016-3 ####[facility] LABCLIA [id number] [place] [id number] [facility] Tele[facility] (OBGYWM) -- JANET FRANK ([id number]) 2000 F CHT Date Time Provider Department 01/25/25 EMMANUEL HESS OBADONAY During your visit today, we recorded the following information about you: Vincent Hale RN 01/25/2025 9:48 AM Signed Emmanuel Hess MD to [facility] Ob-Attendance Secretary Pool 01/25/25 8:37 AM Result Note weekly NST alternating w/ weekly BPP please. Emmanuel Hess MD [facility] Vincent Hale RN 01/25/2025 9:49 AM Addendum BPP order pending. Please file and will contact Pt to get appointments scheduled. US on 02/07/25 at 11am placed on hold as Pt has OB appt with KJ at 11:20am. VENKATESH Walker Tara, RN 01/25/2025 10:25 AM Addendum Contacted Pt and appts scheduled. US to [facility]. Vincent Hale RN Allergies As of Date: 01/25/2025 (No Known Allergies) Date Reviewed: 01/24/2025 Reviewed by: Lela Garcia MA - Fully Assessed Reason for Visit: Appointment [186] Primary Visit Diagnosis:Supervision of high risk in third trimester ([facility]) [O09.93] Other Visit Diagnoses:Obesity in ([facility]) [O99.210] Polyhydramnios in third trimester complication, single or unspecified fetus ([facility]) [O40.3XX0] Order(s):BIOPHYSICAL PROFILE [facility] [[id number]] Order #: [id number]: 1 STANDING Prescriptions as of 01/25/2025 - [...] mouth three times a day. - VIT 3-AVMO-NKDIK-DHA ORAL Take by mouth. Problem List As [...] Status:Closed by VINCENT HALE on 01/25/[address] [facility] Peggy 12-29-2024 CNPN Telephone (OBGYWM) -- JANET FRANK ([id number]) 2000 F CHT Date Time Provider Department 12/29/24 STEFFANIE LOPEZ During your visit today, we recorded the following information about you: Vincent Hale RN 12/29/2024 12:45 PM Signed 29w5d Pt call re: lab [facility] and asking if she is anemic. Please [...] BLOOD COUNT AND DIFFERENTIAL [SQCBCDIF] Order #: [id number] FUTURE Prescriptions as of 12/29/2024 - nitrofurantoin [...] mouth three times a day. - VIT 9-JUFH-FPUXY-DHA ORAL Take by mouth. Problem List As [...] Status:Closed by VINCENT HALE on 12/29/24 Normal [facility] Telephone ([id number]) -- JAENT FRANK ([id number]) 2000 F T Date Time Provider Department 12/29/24 STEFFANIE NEELY [id number] During your visit today, we recorded the following information about you: Steffanie Neely RN 12/29/2024 9:10 AM Signed 3rd risk assessment form submitted 12/29/2024. Steffanie Neely RN Allergies As of Date: 12/29/2024 (No Known Allergies) Date Reviewed: 12/28/2024 Reviewed by: Emmanuel Hess MD - Fully Assessed Reason for Visit: [employer] - Other [6018] Cmt: [facility] Prescriptions as of 12/29/2024 - nitrofurantoin monohydrate [...] mouth three times a day. - VIT 4-LGNQ-KCJKB-DHA ORAL Take by mouth. Problem List As [...] Status:Closed by STEFFANIE NEELY on 12/29/[address] [facility] CBC W Auto Differential pane l (Bld)on 12-28-2024 Basophils (Bld) [#/Vol] 0.05 10*3/uL Normal <0.11 [facility] Comment on above: Order Comment: Speci men Type: BLOOD SPECIMENOrdering Facility: [facility] Address: [address] [place] [address] Performed By: #### 5 7021-8 ####[facility] [id number] [place] [address] [place] Basophils/100 WBC (Bld) 0.4 % Normal [facility] Comment on above: Order Comment: Speci men Type: BLOOD SPECIMENOrdering Facility: [facility] Address: [address] [place] [address] Performed By: #### 5 7021-8 ####[facility] [id number] [place] [address] [place] Differential cell count method Nom (Bld) Auto Normal [facility] Comment on above: Order Comment: Speci men Type: BLOOD SPECIMENOrdering Facility: [facility] Address: [address] [place] [address] Performed By: #### 5 7021-8 ####[facility] OHIOLIA [id number] [place] [address] [place] Eosinophils (Bld) [#/Vol] 0.14 10*3/uL Normal <0.46 [facility] Comment on above: Order Comment: Speci men Type: BLOOD SPECIMENOrdering Facility: [facility] Address: [address] [place] [address] Performed By: #### 5 7021-8 ####[facility] OHIOLIA [id number] [place] [address] [place] Eosinophils/100 WBC (Bld) 1.2 % Normal [facility] Comment on above: Order Comment: Speci men Type: BLOOD SPECIMENOrdering Facility: [facility] Address: [address] [place] [address] Performed By: #### 5 7021-8 ####[facility] [id number] [place] [address] [place] Erythrocyte distribution width (RBC) [Ratio] 13.4 % Normal 11.5-15.0 [facility] Comment on above: Order Comment: Speci men Type: BLOOD SPECIMENOrdering Facility: [facility] Address: [address] [place] [address] Performed By: #### 5 7021-8 ####[facility] [id number] [place] [address] [place] Hematocrit (Bld) [Volume fraction] 31.2 % Low 36.0-46.0 [facility] Comment on above: Order Comment: Speci men Type: BLOOD SPECIMENOrdering Facility: [facility] Address: [address] [place] [address] Performed By: #### 5 7021-8 ####[facility] [id number] [place] [address] [place] Hemoglobin (Bld) [Mass/Vol] 10.5 g/dL Low 11.5-15.5 [facility] Comment on above: Order Comment: Speci men Type: BLOOD SPECIMENOrdering Facility: [facility] Address: [address] [place] [address] Performed By: #### 5 7021-8 ####[facility] [id number] [place] [address] [place] Immature granulocytes (Bld) [#/Vol] 0.18 10*3/uL High <0.10 [facility] Comment on above: Order Comment: Speci men Type: BLOOD SPECIMENOrdering Facility: [facility] Address: [address] [place] [address] Performed By: #### 5 7021-8 ####[facility] JENNIFERWNCLIA [id number] [place] [address] [place] Immature granulocytes/100 WBC (Bld) 1.5 % Normal [facility] Comment on above: Order Comment: Speci men Type: BLOOD SPECIMENOrdering Facility: [facility] Address: [address] [place] [address] Performed By: #### 5 7021-8 ####[facility] [id number] [place] [address] [place] Lymphocytes (Bld) [#/Vol] 1.60 10*3/uL Normal 1.00-4.00 [facility] Comment on above: Order Comment: Speci men Type: BLOOD SPECIMENOrdering Facility: [facility] Address: [address] [place] [address] Performed By: #### 5 7021-8 ####[facility] [id number] [place] [address] [place] Lymphocytes/100 WBC (Bld) 13.4 % Normal [facility] Comment on above: Order Comment: Speci men Type: BLOOD SPECIMENOrdering Facility: [facility] Address: [address] [place] [address] Performed By: #### 5 7021-8 ####[facility] [id number] [place] [address] [place] MCH (RBC) [Entitic mass] 25.5 pg Low 26.0-34.0 [facility] Comment on above: Order Comment: Speci men Type: BLOOD SPECIMENOrdering Facility: [facility] Address: [address] [place] [address] Performed By: #### 5 7021-8 ####[facility] [id number] [place] [address] [place] MCHC (RBC) [Mass/Vol] 33.7 g/dL Normal 30.5-36.0 [facility] Comment on above: Order Comment: Speci men Type: BLOOD SPECIMENOrdering Facility: [facility] Address: [address] [place] [address] Performed By: #### 5 7021-8 ####[facility] [id number] [place] [address] [place] MCV (RBC) [Entitic vol] 75.9 fL Low 80.0-100.0 [facility] Comment on above: Order Comment: Speci men Type: BLOOD SPECIMENOrdering Facility: [facility] Address: [address] [place] [address] Performed By: #### 5 7021-8 ####[facility] [id number] [place] [address] [place] Monocytes (Bld) [#/Vol] 0.75 10*3/uL Normal <0.87 [facility] Comment on above: Order Comment: Speci men Type: BLOOD SPECIMENOrdering Facility: [facility] Address: [address] [place] [address] Performed By: #### 5 7021-8 ####[facility] [id number] [place] [address] [place] Monocytes/100 WBC (Bld) 6.3 % Normal [facility] Comment on above: Order Comment: Speci men Type: BLOOD SPECIMENOrdering Facility: [facility] Address: [address] [place] [address] Performed By: #### 5 7021-8 ####[facility] OHIOLI [id number] [place] [address] [place] Neutrophils (Bld) [#/Vol] 9.18 10*3/uL High 1.45-7.50 [facility] Comment on above: Order Comment: Speci men Type: BLOOD SPECIMENOrdering Facility: [facility] Address: [address] [place] [address] Performed By: #### 5 7021-8 ####[facility] [id number] [place] [address] [place] Neutrophils/100 WBC (Bld) 77.2 % Normal [facility] Comment on above: Order Comment: Speci men Type: BLOOD SPECIMENOrdering Facility: [facility] Address: [address] [place] [address] Performed By: #### 5 7021-8 ####[facility] [id number] [place] [address] [place] Nucleated RBC (Bld) [#/Vol] 10*3/uL Normal <0.01 [facility] Comment on above: Order Comment: Speci men Type: BLOOD SPECIMENOrdering Facility: [facility] Address: [address] [place] [address] Performed By: #### 5 7021-8 ####[facility] [id number] [place] [address] [place] Nucleated RBC/100 WBC (Bld) [Ratio] 0.0 /[address] [facility] Comment on above: Order Comment: Speci men Type: BLOOD SPECIMENOrdering Facility: [facility] Address: [address] [place] [address] Performed By: #### 5 7021-8 ####[facility] [id number] [place] [address] [place] Platelet mean volume (Bld) [Entitic vol] 8.6 fL Low 9.0-12.7 [facility] Comment on above: Order Comment: Speci men Type: BLOOD SPECIMENOrdering Facility: [facility] Address: [address] [place] [address] Performed By: #### 5 7021-8 ####[facility] DRISSNCLIA [id number] [place] [address] [place] Platelets (Bld) [#/Vol] 268 10*3/uL Normal 150-400 [facility] Comment on above: Order Comment: Speci men Type: BLOOD SPECIMENOrdering Facility: [facility] Address: [address] [place] [address] Performed By: #### 5 7021-8 ####[facility] BARBIWHITE MARSHNCLIA [id number] [place] [address] [place] RBC (Bld) [#/Vol] 4.11 10*6/uL Normal 3.90-5.20 [facility] Comment on above: Order Comment: Speci men Type: BLOOD SPECIMENOrdering Facility: [facility] Address: [address] [place] [address] Performed By: #### 5 7021-8 ####[facility] BARBIWHITE MARSHNCLIA [id number] [place] [address] [place] WBC (Bld) [#/Vol] 11.90 10*3/uL High 3.70-11.00 [facility] Comment on above: Order Comment: Speci men Type: BLOOD SPECIMENOrdering Facility: [facility] Address: [address] [place] [address] Performed By: #### 5 7021-8 ####[facility] [id number] [place] [address] [place] Examination level ultrasound on 12-28-2024 [facility] Radiology Study observation (narrative) [facility] Ferritin SerPl-mCncon 2024 Ferritin [Mass/Vol] 11.9 ng/mL Low 14.7-205.1 [facility] Comment on above: Order Comment: Speci men Type: BLOOD SPECIMENOrdering Facility: [facility] Address: [address] [place], [place] [address] Performed By: #### 2 276-4, 61638-1 ####[facility] LABCLIA [id number] [address] [address] [place] GESTATIONAL GLUCOSE SCREEN, 1-HOUR, 50 GRAM, NON-FASTINGon 12-28-2024 Glucose [Mass/Vol] 131 mg/dL Normal 74-134 [facility] Comment on above: Order Comment: Speci men Type: BLOOD SPECIMENOrdering Facility: [facility] Address: [address] [place] [address] Result Comment: [facility] Congress of Obstetricians and Gynecologists (Yoav/Campbell) guidelines state a gestational diabetes mellitus positive screen is made, in women not previously diagnosed with overt diabetes, when the 1 hr plasma glucose level is equal to or above 140 mg/dL. The [facility] [place] recommends a 135 mg/dL cutoff. Performed By: #### G LTGST ####[facility] [id number] [place] [id number] [place] Iron and Iron binding capaci ty panelon 12-28-2024 Iron [Mass/Vol] 33 ug/dL Low 41-186 [facility] Comment on above: Order Comment: Speci men Type: BLOOD SPECIMENOrdering Facility: [facility] Address: [address] [place] [address] Performed By: #### 2 276-4, 03569-3 ####[facility] LABCLIA [id number] [place] [id number] [place] Iron binding capacity [Mass/Vol] >533 High 232-386 [facility] Comment on above: Order Comment: Speci men Type: BLOOD SPECIMENOrdering Facility: [facility] Address: [address] [place], [place] [address] Performed By: #### 2 276-4, 82375-8 ####[facility] LABCLIA [id number] [place] [address] [place] Iron/TIBC [Molar ratio] <6.2 Low 15.0-57.0 [facility] Comment on above: Order Comment: Speci men Type: BLOOD SPECIMENOrdering Facility: [facility] Address: [address] [place] [address] Performed By: #### 2 276-4, 47074-9 ####[facility] LABIA [id number] [place] [address] [place] Reagin and Treponema pallidu m IgG and IgM [Interp]on 12-28-2024 T. pallidum IgG+IgM IA Ql (S) Non-Reactive Normal Nonreactive [facility] Comment on above: Order Comment: Speci men Type: BLOOD SPECIMENOrdering Facility: [facility] Address: [address] [place] [address] Performed By: #### 7 3752-8 ####[facility] [id number] [place] [address] [place] Reagin+T pallidum IgG+IgM Se rPl-Impon 12-28-2024 Reagin and Treponema pallidum IgG and IgM [Interp] Cannot exclude recent Treponemal infection if specimen collected within 7-10 days after appearance of suspect lesions or 2-3 weeks after an exposure. Clinical correlation is required. Normal [facility] Comment on above: Order Comment: Speci men Type: BLOOD SPECIMENOrdering Facility: [facility] Address: [address] [place] [address] Performed By: #### 7 3752-8 ####[facility] [id number] [place] [address] [place] T4 Free SerPl-mCncon 025 Free T4 [Mass/Vol] 0.9 ng/dL Normal 0.9-1.7 [facility] Comment on above: Order Comment: Speci men Type: BLOOD SPECIMENOrdering Facility: [facility] Address: [address] [place], [place] [address] [id number] Performed By: #### 3 024-7, 3016-3 ####[facility] LABCLIA [id number] [place] [address] [place] TSH SerPl-aCncon 12-28-2024 TSH Qn 1.820 m[IU]/L Normal 0.270-4.200 [facility] Comment on above: Order Comment: Speci men Type: BLOOD SPECIMENOrdering Facility: [facility] Address: [address] [facility] [place] [address] Result Comment: If t he patient is , TSH reference range varies by gestational period: First Trimester (weeks 9-12): 0.180-2.990 mIU/L Second Trimester: 0.110-3.980 mIU/L Third Trimester: 0.480-4.710 mIU/L Yariel Garcia et al. A Practical Approach for the Verifications and Determination of Site- and Trimester-Specific Reference Intervals for Thyroid Function tests in . Thyroid, 2019:29:3:412-420. Juan E, et al. 2017 Guidelines of the Indian Thyroid Association for the Diagnosis and Management of Thyroid Disease during and the . Thyroid, 2017:27:3:315-389. Performed By: #### 3 024-7, 3016-3 ####[facility] LABCLIA [id number] [place] [id number] [place] Urine Cultureon 12-26-2024 URC Below infection leve l. Mixed Gram Positive Organisms [place] Count 1000-10,000 MIXC Mixed contaminants. Submit a new specimen if indicated. Normal [facility] Comment on above: Performed By: #### M 100.2200 ####[facility] [address] [place], [address] (ROM) Rupture Of Membraneson 12-23-2024 ROM Negative Normal Negative [facility] Comment on above: Result Comment: Amni otic fluid not present indicates No Rupture of Membranes at time of specimen collection. Performed By: #### L 205.1000 ####[facility] [address] [place], [address] Bilirubin Test strip Ql (U)O rdered By: Roxana Fry on 12-23-2024 Bilirubin Ql (U) Negative Negative [facility] CNPNon 12-23-2024 CNPN Telephone (OBGYWM) -- JANET FRANK ([id number]) 2000 F CHT Date Time Provider Department [...] kick counts. Patient advised to go to [facility] for evaluation, voiced understanding. FYI. Asia Garzon [...] mouth three times a day. - VIT 0-JVAE-TOOBB-DHA ORAL Take by mouth. Problem List As [...] Status:Closed by ASIA GARZON on 12/23/[address] [facility] Discharge Instructionon 12-03 Discharge Instruction [facility] Medical Records Department [address] [place] [address] Instructions for Home/Discharge Instructions 12/23/242122 MR#: [id number] Acct: [id number] Name: JANET FRANK Rep #: [id number] : 2000 24 From: Roxana Fry CNM [...] Provider: Roxana Fry Primary Care Provider: Genie Jackson Discharge Date/Time: 12/23/24 19:49 Instructions Patient Instructions: [...] CC: Dr. Genie Jackson MD Signed Normal [facility] Ketones Test strip Ql (U)Ord ered By: Roxana Fry on 12-23-2024 Ketones Ql (U) Negative Negative [facility] Microscopic analysis of urin e for red blood cells (RBC)Ordered By: Roxana Fry on 12-23-2024 Microscopic analysis of urine for red blood cells (RBC) 0-5 SEEN /hpf 0-5 [facility] Mucus LM Ql (Urine sed)Order ed By: Roxana Fry on 12-23-2024 Mucus Ql (Urine sed) 0 SEEN /hpf [facility] Nitrite Test strip Ql (U)Ord ered By: Roxana Fry on 12-23-2024 Nitrite Ql (U) Negative Negative [facility] OB Triage Physician Noteon 0 12-23-2024 OB Triage Physician Note [facility] Medical Records Department [address] [place] [address] OB Triage Physician Note 12/23/242117 MR#: [id number] Acct: [id number] Name: JANET FRANK Rep #: [id number] : 2000 24 From: Roxana Fry CNM PCP: Dr. Genie Jackson MD Status:DEP CLI Y Location: [facility] HPI - General HPI Narrative JANET [...] Fry; Dr. Genie Jackson MD Signed Normal [facility] Protein Test strip Ql (U)Ord ered By: Roxana Fry on 12-23-2024 Protein Ql (U) 30 mg/dl High Negative [facility] Squamous epithelial cells de tection in urine sediment by light microscopyOrdered By: Roxana Fry on 12-23-2024 Epithelial cells.squamous LM Ql (Urine sed) 0-5 SEEN /hpf 5-10 [facility] Urinalysis, Completeon 12-23 EPI,SQUAMOUS 0-5 SEEN Normal 5-10 [facility] Comment on above: Order Comment: CLEAN CATCH Performed By: #### L 400.0001 #### [facility] [address] [place], [address] RBC 0-5 SEEN Normal 0-5 [facility] Comment on above: Order Comment: CLEAN CATCH Performed By: #### L 400.0001 #### [facility] [address] [place], [address] WBC 0-5 SEEN Normal 0-5 [facility] Comment on above: Order Comment: CLEAN CATCH Performed By: #### L 400.0001 #### [facility] [address] [place], [address] BACTERIA 0 SEEN Normal None Seen [facility] Comment on above: Order Comment: CLEAN CATCH Performed By: #### L 400.0001 #### [facility] [address] [place], [address] Mucus Ql (Urine sed) 0 SEEN Normal [facility] Comment on above: Order Comment: CLEAN CATCH Performed By: #### L 400.0001 #### [facility] [address] [place], [address] Urine clarityOrdered By: Nadia Fry on 12-23-2024 Clarity (U) Clear Clear [facility] Urine color determinationOrd ered By: Roxana Fry on 12-23-2024 Color (U) Yellow Yellow [facility] Urine glucose detectionOrder ed By: Roxana Fry on 12-23-2024 Glucose Ql (U) Normal mg/dl Normal [facility] Urine leukocyte esterase det ection by dipstickOrdered By: Roxana Fry on 12-23-2024 Leukocyte esterase Test strip Ql (U) Negative Negative [facility] Urine pHOrdered By: Roxana Fry on 12-23-2024 pH (U) 6.5 [pH] 5.0 - 8.0 [facility] Urine sediment bacteria coun t by microscopy (number/high power field)Ordered By: Roxana Fry on 12-23-2024 Bacteria LM.HPF (Urine sed) [#/Area] 0 /[HPF] None Seen [facility] Urine specific gravity measu rementOrdered By: Roxana Fry on 12-23-2024 Specific gravity (U) [Rel density] 1.010 1.002-1.030 [facility] Urine urobilinogen measureme ntOrdered By: Roxana Fry on 12-23-2024 Urobilinogen Ql (U) Normal mg/dl Normal [facility] White blood cell countOrdere d By: Roxana Fry on 12-23-2024 White blood cell count 0-5 SEEN /hpf 0-5 [facility] Prot 24h Ur-mRateon 11-22-19 25 Protein (24H U) [Mass/Time] 0.28 g/24 Hr High <0.15 [facility] Comment on above: Order Comment: Speci men Type: URINE SPECIMENOrdering Facility: [facility] Address: [address] [place] [address] Result Comment: Adul t Proteinuria Categories: <0.15 g/24 hours is considered normal to mildly increased 0.15 - 0.50 g/24 hours is considered moderately increased >0.50 g/24 hours is considered severely increased KDIGO. (2013). KDIGO 2012 Clinical Practice Guideline for the Evaluation and Management of Chronic Kidney Disease. Official Journal of the International Society of Nephrology, 3(1), 1-150. Performed By: #### 2 889-4 ####[facility] LABCLIA [id number] [address] STATES OF [facility] [id number] [place] [address] [place] Protein (24H U) [Mass/Time]o n 11-21-2024 PERIOD (HRS) [address] [facility] Comment on above: Order Comment: Speci men Type: URINE SPECIMENOrdering Facility: [facility] Address: [address] [place] [address] Performed By: #### 2 889-4 ####[facility] LABIA [id number] [address] [id number] [place] [address] [place] Specimen volume (24H U) 2.[address] [facility] Comment on above: Order Comment: Speci men Type: URINE SPECIMENOrdering Facility: [facility] Address: [address] [place] [address] Performed By: #### 2 889-4 ####[facility] LABCLIA [id number] [address] [id number] [place] [address] [place] AST(SGOT)on 11-19-2024 AST [Catalytic activity/Vol] 19 U/L Normal <=31 [facility] Comment on above: Performed By: #### L 100.0500, L501.1105, L501.4100, L501.1400, L501.0900, L501.4405 #### [facility] [address] [place], [address] Alanine Aminotransferas (SGP T)on 11-19-2024 ALT [Catalytic activity/Vol] 11 U/L Normal <=34 [facility] Comment on above: Performed By: #### L 100.0500, L501.1105, L501.4100, L501.1400, L501.0900, L501.4405 #### [facility] [address] [place], [address] CBC-Complete Blood Cnt No Di ffon 11-19-2024 Erythrocyte distribution width (RBC) [Ratio] 14.1 % Normal 11.6-14.6 [facility] Comment on above: Performed By: #### L 100.0500, L501.1105, L501.4100, L501.1400, L501.0900, L501.4405 #### [facility] [address] [place], [address] Hematocrit (Bld) [Volume fraction] 31.5 % Low 37-47 [facility] Comment on above: Performed By: #### L 100.0500, L501.1105, L501.4100, L501.1400, L501.0900, L501.4405 #### [facility] [address] [place], [address] Hemoglobin (Bld) [Mass/Vol] 10.7 g/dL Low 12.0-15.0 [facility] Comment on above: Performed By: #### L 100.0500, L501.1105, L501.4100, L501.1400, L501.0900, L501.4405 #### [facility] [address] [place], [address] MCH (RBC) [Entitic mass] 26.2 pg Low 27.0-32.0 [facility] Comment on above: Performed By: #### L 100.0500, L501.1105, L501.4100, L501.1400, L501.0900, L501.4405 #### [facility] [address] [place], [address] MCHC (RBC) [Mass/Vol] 34.0 g/dL Normal 32-36 [facility] Comment on above: Performed By: #### L 100.0500, L501.1105, L501.4100, L501.1400, L501.0900, L501.4405 #### [facility] [address] [place], [address] MCV (RBC) [Entitic vol] 77.0 fL Low 81-99 [facility] Comment on above: Performed By: #### L 100.0500, L501.1105, L501.4100, L501.1400, L501.0900, L501.4405 #### [facility] [address] [place], [address] Platelet mean volume (Bld) [Entitic vol] 8.7 fL Normal 6.2-12.0 [facility] Comment on above: Performed By: #### L 100.0500, L501.1105, L501.4100, L501.1400, L501.0900, L501.4405 #### [facility] [address] [place], [address] Platelets (Bld) [#/Vol] 263 10*3/uL Normal 150-450 [facility] Comment on above: Performed By: #### L 100.0500, L501.1105, L501.4100, L501.1400, L501.0900, L501.4405 #### [facility] [address] [place], [address] RBC (Bld) [#/Vol] 4.09 10*6/uL Low 4.2-5.4 [facility] Comment on above: Performed By: #### L 100.0500, L501.1105, L501.4100, L501.1400, L501.0900, L501.4405 #### [facility] [address] [place], [address] RDW SD 39.1 fl Normal 35.1-43.9 [facility] Comment on above: Performed By: #### L 100.0500, L501.1105, L501.4100, L501.1400, L501.0900, L501.4405 #### [facility] [address] [place], [place], [address] WBC (Bld) [#/Vol] 13.3 10*3/uL High 4.4-11.0 [facility] Comment on above: Performed By: #### L 100.0500, L501.1105, L501.4100, L501.1400, L501.0900, L501.4405 #### [facility] [address] [place], [place], [address] CNPNon 11-19-2024 CNPN Telephone (OBGYWM) -- JANET FRANK ([id number]) 2000 F CHT Date Time Provider Department [...] Order(s):PROTEIN, 24 HOUR URINE [SQUTP24] Order #: [id number]. #:[id number] Prescriptions as of 11/21/2024 - levothyroxine (SYNTHROID) 125 mcg tablet Take 0.5 tablets by mouth daily before breakfast. - busPIRone (BUSPAR) 15 mg tablet Take 1 tablet by mouth three times a day. - aspirin, enteric coated (ECOTRIN LOW STRENGTH) 81 mg EC tablet Take 2 tablets by mouth once daily. - VIT 1-WWHU-VCHRI-DHA ORAL Take by mouth. - sertraline (ZOLOFT) [...] Status:Closed by ASIA GARZON on 11/21/[address] [facility] Erythrocyte distribution wid th ratioOrdered By: Steffanie Lopez on 11-19-2024 Erythrocyte distribution width (RBC) [Ratio] 14.1 % 11.6-14.6 [facility] Erythrocyte distribution wid th standard deviationOrdered By: Steffanie Lopez on 11-19-2024 Erythrocyte distribution width (RBC) [Ratio] 39.1 fl 35.1-43.9 [facility] Glomerular filtration rate ( GFR) estimation/1.73 sq m using serum, plasma, or whole bOrdered By: Steffanie Lopez on 11-19-2024 GFR/1.73 sq M.predicted among non-blacks MDRD (S/P/Bld) [Vol rate/Area] 137 mL/min/{1.73_m2} >60 [facility] Comment on above: mL/min/1.73m2 CKD-EP I Creatinine Equation (2020) Hematocrit Auto (Bld) [Volum e fraction]Ordered By: Steffanie Lopez on 11-19-2024 Hematocrit (Bld) [Volume fraction] 31.5 % Low 37-47 [facility] Hemoglobin measurementOrdere d By: Steffanie Lopez on 11-19-2024 Hemoglobin (Bld) [Mass/Vol] 10.7 g/dL Low 12.0-15.0 [facility] - Chemistry and C hemistry - challengeOrdered By: Steffanie Lopez on 11-19-2024 AST [Catalytic activity/Vol] 19 U/L <32 [facility] MCV (mean corpuscular volume ) determinationOrdered By: Steffanie Lopez on 11-19-2024 MCV (RBC) [Entitic vol] 77.0 fL Low 81-99 [facility] Mean corpuscular hemoglobin (MCH) determinationOrdered By: Steffanie Lopez on 11-19-2024 MCH (RBC) [Entitic mass] 26.2 pg Low 27.0-32.0 [facility] Mean corpuscular hemoglobin concentration (MCHC) determinationOrdered By: Steffanie Lopez on 11-19-2024 MCHC (RBC) [Mass/Vol] 34.0 g/dL 32-36 [facility] Mean platelet volume determi nationOrdered By: Steffanie Lopez on 11-19-2024 Platelet mean volume (Bld) [Entitic vol] 8.7 fL 6.2-12.0 [facility] OB Triage Physician Noteon 0 11-19-2024 OB Triage Physician Note [facility] Medical Records Department [address] [place] [address] OB Triage Physician Note 11/19/24 2349 MR#: [id number] Acct: [id number] Name: JANET FRANK Rep #: [id number] : 2000 24 From: Steffanie Lopez MD PCP: Dr. Genie Jackson MD Status:DEP [facility] Y Location: [facility] HPI - General General Date of [...] Final KELLEY: 03/11/25 Gestational age: 22 PFSH [facility] Medical History Colitis GERD (gastroesophageal reflux disease) [...] Date CC: Dr. Steffanie Lopez MD; Dr. eGnie Jackson MD Signed Normal [facility] Platelet countOrdered By: Remigio Lopez on 11-19-2024 Platelets (Bld) [#/Vol] 263 10*3/uL 150-450 [facility] Protein+Creatinine Ratio,Uri neon 11-19-2024 PROT:CRE RATIO 519 mg/g CRE High 0-200 [facility] Comment on above: Performed By: #### L 100.0500, L501.1105, L501.4100, L501.1400, L501.0900, L501.4405 #### [facility] [address] [place], [address] Protein (U) [Mass/Vol] 11.1 mg/dL Normal 0.0-12.0 [facility] Comment on above: Performed By: #### L 100.0500, L501.1105, L501.4100, L501.1400, L501.0900, L501.4405 #### [facility] [address] [place], [address] UR CREAT 21.40 mg/dL Low 28.00-217.00 [facility] Comment on above: Performed By: #### L 100.0500, L501.1105, L501.4100, L501.1400, L501.0900, L501.4405 #### [facility] [address] [place], [address] RBC Auto (Bld) [#/Vol]Ordere d By: Steffanie Lopez on 11-19-2024 RBC (Bld) [#/Vol] 4.09 10*6/uL Low 4.2-5.4 [facility] Random urine creatinine lesley urement (mass/volume)Ordered By: Steffanie Lopez on 11-19-2024 Creatinine Unsp time (U) [Mass/Vol] 21.40 mg/dL Low 28.00-217.00 [facility] Serum Creatinine AND GFRon 0 11-19-2024 Creatinine [Mass/Vol] 0.44 mg/dL Low 0.70-1.20 [facility] Comment on above: Performed By: #### L 100.0500, L501.1105, L501.4100, L501.1400, L501.0900, L501.4405 #### [facility] [address] [place], [address] ECRCL 249.90 ml/min Normal 50-250 [facility] Comment on above: Performed By: #### L 100.0500, L501.1105, L501.4100, L501.1400, L501.0900, L501.4405 #### [facility] [address] [place], [address] GFR/1.73 sq M.predicted among non-blacks MDRD (S/P/Bld) [Vol rate/Area] 137 mL/min/{1.73_m2} Normal >60 [facility] Comment on above: Result Comment: mL/m in/1.73m2 CKD-EPI Creatinine Equation (2020) Performed By: #### L 100.0500, L501.1105, L501.4100, L501.1400, L501.0900, L501.4405 #### [facility] [address] [place], [address] Serum creatinine measurement (mass/volume)Ordered By: Steffanie Lopez on 11-19-2024 Creatinine [Mass/Vol] 0.44 mg/dL Low 0.70-1.20 [facility] Serum or plasma alanine jacome otransferase (ALT) measurementOrdered By: Steffanie Lopez on 11-19-2024 ALT [Catalytic activity/Vol] 11 U/L <35 [facility] Serum or plasma uric acid me asurement (mass/volume)Ordered By: Steffanie Lopez on 11-19-2024 Urate [Mass/Vol] 4.4 mg/dL 2.6-6.0 [facility] Comment on above: The drugs N-Acetylcy steine and Metamizole may falsely depress this assay. Uric Acidon 11-19-2024 URIC 4.4 mg/dL Normal 2.6-6.0 [facility] Comment on above: Result Comment: The drugs N-Acetylcysteine and Metamizole may falsely depress this assay. Performed By: #### L 100.0500, L501.1105, L501.4100, L501.1400, L501.0900, L501.4405 #### [facility] [address] [place], [address] Urine protein measurement (m ass/volume)Ordered By: Steffanie Lopez on 11-19-2024 Protein (U) [Mass/Vol] 11.1 mg/dL 0.0-12.0 [facility] Urine protein/creatinine mas s ratioOrdered By: Steffanie Lopez on 11-19-2024 Protein/Creatinine (U) [Mass ratio] 519 mg/g CRE High 0-200 [facility] White blood cell (WBC) count Ordered By: Steffanie Lopez on 11-19-2024 WBC (Bld) [#/Vol] 13.3 10*3/uL High 4.4-11.0 [facility] CNPNon 11-16-2024 [facility] -- JANET FRANK ([id number]) 2000 F [facility] Date Time Provider Department 11/16/24 JOYCE RESTREPOGY [...] tablets by mouth once daily. - VIT 5-SUWZ-TCOUW-DHA ORAL Take by mouth. - sertraline (ZOLOFT) [...] Encounter Status:Closed by STEFFANIE LOZADA on 11/16/24 [facility] 10-27-2024 [facility] Tele[facility] ([id number]) -- JANET FRANK ([id number]) 2000 F T Date Time Provider Department 10/27/24 STEFFANIE NEELY [id number] During your visit today, we recorded the following information about you: Steffanie Neely RN 10/27/2024 9:36 AM Signed 2nd risk assessment form submitted 10/27/2024. Steffanie Neely RN Allergies As of Date: 10/27/2024 (No Known Allergies) Date Reviewed: 10/26/2024 Reviewed by: Steffanie Lopez MD - Fully Assessed Reason for Visit: [employer] - Other [[id number]] Cmt: PRA Prescriptions as of 10/27/2024 - levothyroxine (SYNTHROID) 125 mcg tablet Take 0.5 tablets by mouth daily before breakfast. - busPIRone (BUSPAR) 15 mg tablet Take 1 tablet by mouth three times a day. - aspirin, enteric coated (ECOTRIN LOW STRENGTH) 81 mg EC tablet Take 2 tablets by mouth once daily. - VIT 2-FJAL-XEPKP-DHA ORAL Take by mouth. - sertraline (ZOLOFT) [...] Status:Closed by STEFFANIE NEELY on 10/27/[address] [facility] Examination level ultrasound on 10-26-2024 Indication [...] 0 oz EFW by: [place] (HC-AC-FL) Extended Dozer Operator 5.6 mm CM 4.0 mm 16% Nicolaides [...] normal LVOT view: normal 3-vessel view: normal 8-jtrjjp-nmlwano view: normal Heart / Thorax Situs: situs [...] Read By: Nava Duran M.D. MATERNAL MEDICINE [facility] Radiology Study observation (narrative) [facility]4 Free [facility] Free T4 [Mass/Vol] 0.7 ng/dL Low 0.9-1.7 [facility] Comment on above: Order Comment: Speci men Type: BLOOD SPECIMENOrdering Facility: [facility] Address: [address] [place] [address] Performed By: #### 3 024-7, 3015-3 ####[facility] [id number] [address] STATES OF [facility] TSH SerPl-aCncon 10-25-2024 TSH Qn 1.960 m[IU]/L Normal 0.270-4.200 [facility] Comment on above: Order Comment: Speci men Type: BLOOD SPECIMENOrdering Facility: [facility] Address: [address] [place] [address] Result Comment: If t he patient is [...] Santiago, et al. 2017 Guidelines of the Indian Thyroid Association for the Diagnosis and Management of Thyroid Disease during and the . Thyroid, 2017:27:3:315-389. Performed By: #### 3 024-7, 3 ####[facility] [id number] [place] [id number] [place] [facility] Examination level ultrasound on 10-05-2024 Indication [...] 8 oz EFW by: Hadlock (HC-AC-FL) Extended Dozer Operator 6.3 mm CM 2.8 mm 7% Nicolaides Extremities / Bony Struc FL / HC 0.18 78% Hadlock Other Structures FHR 157 bpm Anatomy Cranium: normal Lateral ventricles: normal Choroid plexus: normal Midline falx: normal Cerebellum: normal Cisterna magna: normal Lips: normal Profile: normal Nose: normal 4-chamber view: normal RVOT view: normal LVOT view: normal 3-vessel view: normal 5-bbclsx-ggcvcay view: suboptimally visualized Heart / Thorax Diaphragm: [...] Read By: Roxana Mcrae MD MATERNAL MEDICINE [facility] Radiology Study observation (narrative) [facility] C. trachomatis+N. gonorrhoea e DNA RODERICK+probe Ql (Unsp spec)on 09-29-2024 C. trachomatis rRNA RODERICK+probe Ql (Unsp spec) Not detected Normal Not detected [facility] Comment on above: Order Comment: Speci men Type: SWABOrdering Facility: [facility] Address: [address] [place] [address] Performed By: #### 3 6902-5, TRVAMP ####[facility] [id number] [place] [address] [place] N. gonorrhoeae rRNA RODERICK+probe Ql (Unsp spec) Not detected Normal Not detected [facility] Comment on above: Order Comment: Speci men Type: SWABOrdering Facility: [facility] Address: [address] [place] [address] Performed By: #### 3 6902-5, TRVAMP ####[facility] [id number] [place] [address] [place] TRICHOMONAS VAGINALIS NAATon 09-29-2024 T. vaginalis DNA RODERICK+probe Ql (Unsp spec) Not detected Normal Not detected [facility] Comment on above: Order Comment: Speci men Type: SWABOrdering Facility: [facility] Address: [address] [place], [place] [address] Performed By: #### 3 6902-5, TRVAMP ####[facility] [id number] [place] [address] [place] T4 Free SerPl-mCncon 025 Free T4 [Mass/Vol] 0.8 ng/dL Low 0.9-1.7 [facility] Comment on above: Order Comment: Speci men Type: BLOOD SPECIMENOrdering Facility: [facility] Address: [address] [place] [address] Performed By: #### 3 024-7, 3016-3 ####[facility] [id number] [address] STATES [place] TSH SerPl-aCncon 09-23-2024 TSH Qn 2.440 m[IU]/L Normal 0.270-4.200 [facility] Comment on above: Order Comment: Speci men Type: BLOOD SPECIMENOrdering Facility: [facility] Address: [address] [place] [address] Result Comment: If t he patient is [...] Santiago, et al. 2017 Guidelines of the Indian Thyroid Association for the Diagnosis and Management of Thyroid Disease during and the . Thyroid, 2017:27:3:315-389. Performed By: #### 3 024-7, 3016-3 ####[facility] [id number] [place] [id number] [place] Examination level ultrasound on 08-31-2024 Indication First trimester anatomic survey History of preeclampsia, Maternal obesity, BMI >35 Impression The patient is referred for a first trimester anatomy scan including nuchal translucency measurement as clinically indicated. - Single, live, intrauterine . - Tyndall rump length measurement is consistent with the [...] view: visualized 4-chamber view with color: visualized 0-lzdpxk-nwuatyy view: normal Abdominal cord insertion: normal Stomach: [...] Read By: Zina Petersen M.D. MATERNAL MEDICINE [facility] Radiology Study observation (narrative) [facility] CBC W Auto Differential pane l (Bld)on 08-29-2024 Basophils (Bld) [#/Vol] 0.06 10*3/uL Normal <0.11 [facility] Comment on above: Order Comment: Speci men Type: BLOOD SPECIMENOrdering Facility: [facility] Address: [address] [place] [address] Performed By: #### 5 7021-8 ####[facility] [id number] [place] [address] [place] Basophils/100 WBC (Bld) 0.5 % Normal [facility] Comment on above: Order Comment: Speci men Type: BLOOD SPECIMENOrdering Facility: [facility] Address: [address] [place] [address] Performed By: #### 5 7021-8 ####[facility] [id number] [place] [address] [place] Differential cell count method Nom (Bld) Auto Normal [facility] Comment on above: Order Comment: Speci men Type: BLOOD SPECIMENOrdering Facility: [facility] Address: [address] [place] [address] Performed By: #### 5 7021-8 ####[facility] [id number] [place] [address] [place] Eosinophils (Bld) [#/Vol] 0.21 10*3/uL Normal <0.46 [facility] Comment on above: Order Comment: Speci men Type: BLOOD SPECIMENOrdering Facility: [facility] Address: [address] [place] [address] Performed By: #### 5 7021-8 ####[facility] [id number] [address], [place] [address] [place] Eosinophils/100 WBC (Bld) 1.7 % Normal [facility] Comment on above: Order Comment: Speci men Type: BLOOD SPECIMENOrdering Facility: [facility] Address: [address] [place] [address] Performed By: #### 5 7021-8 ####[facility] [id number] [address], [place] [address] [place] Erythrocyte distribution width (RBC) [Ratio] 15.5 % High 11.5-15.0 [facility] Comment on above: Order Comment: Speci men Type: BLOOD SPECIMENOrdering Facility: [facility] Address: [address] [place] [address] Performed By: #### 5 7021-8 ####[facility] [id number] [address], [place] [address] [place] Hematocrit (Bld) [Volume fraction] 33.8 % Low 36.0-46.0 [facility] Comment on above: Order Comment: Speci men Type: BLOOD SPECIMENOrdering Facility: [facility] Address: [address] [place] [address] Performed By: #### 5 7021-8 ####[facility] [id number] [address], [facility] [place] Hemoglobin (Bld) [Mass/Vol] 11.2 g/dL Low 11.5-15.5 [facility] Comment on above: Order Comment: Speci men Type: BLOOD SPECIMENOrdering Facility: [facility] Address: [address] [place] [address] Performed By: #### 5 7021-8 ####[facility] [id number] [place] [address] [place] Immature granulocytes (Bld) [#/Vol] 0.17 10*3/uL High <0.10 [facility] Comment on above: Order Comment: Speci men Type: BLOOD SPECIMENOrdering Facility: [facility] Address: [address] [place] [address] Performed By: #### 5 7021-8 ####[facility] [id number] [place] [address] [place] Immature granulocytes/100 WBC (Bld) 1.4 % Normal [facility] Comment on above: Order Comment: Speci men Type: BLOOD SPECIMENOrdering Facility: [facility] Address: [address] [place] [address] Performed By: #### 5 7021-8 ####[facility] [id number] [place] [address] [place] Lymphocytes (Bld) [#/Vol] 1.93 10*3/uL Normal 1.00-4.00 [facility] Comment on above: Order Comment: Speci men Type: BLOOD SPECIMENOrdering Facility: [facility] Address: [address] [place] [address] Performed By: #### 5 7021-8 ####[facility] [id number] [place] [address] [place] Lymphocytes/100 WBC (Bld) 15.6 % Normal [facility] Comment on above: Order Comment: Speci men Type: BLOOD SPECIMENOrdering Facility: [facility] Address: [address] [place] [address] Performed By: #### 5 7021-8 ####[facility] [id number] [place] [address] [place] MCH (RBC) [Entitic mass] 25.2 pg Low 26.0-34.0 [facility] Comment on above: Order Comment: Speci men Type: BLOOD SPECIMENOrdering Facility: [facility] Address: [address] [place] [address] Performed By: #### 5 7021-8 ####[facility] [id number] [place] [address] [place] MCHC (RBC) [Mass/Vol] 33.1 g/dL Normal 30.5-36.0 [facility] Comment on above: Order Comment: Speci men Type: BLOOD SPECIMENOrdering Facility: [facility] Address: [address] [place] [address] Performed By: #### 5 7021-8 ####[facility] [id number] [place] [address] [place] MCV (RBC) [Entitic vol] 76.0 fL Low 80.0-100.0 [facility] Comment on above: Order Comment: Speci men Type: BLOOD SPECIMENOrdering Facility: [facility] Address: [address] [place] [address] Performed By: #### 5 7021-8 ####[facility] [id number] [place] [address] [place] Monocytes (Bld) [#/Vol] 0.87 10*3/uL High <0.87 [facility] Comment on above: Order Comment: Speci men Type: BLOOD SPECIMENOrdering Facility: [facility] Address: [address] [place] [address] Performed By: #### 5 7021-8 ####[facility] [id number] [place] [address] [place] Monocytes/100 WBC (Bld) 7.0 % Normal [facility] Comment on above: Order Comment: Speci men Type: BLOOD SPECIMENOrdering Facility: [facility] Address: [address] [place] [address] Performed By: #### 5 7021-8 ####[facility] [id number] [address] [address] [place] Neutrophils (Bld) [#/Vol] 9.17 10*3/uL High 1.45-7.50 [facility] Comment on above: Order Comment: Speci men Type: BLOOD SPECIMENOrdering Facility: [facility] Address: [address] [place] [address] Performed By: #### 5 7021-8 ####[facility] [id number] [place] [address] [place] Neutrophils/100 WBC (Bld) 73.8 % Normal [facility] Comment on above: Order Comment: Speci men Type: BLOOD SPECIMENOrdering Facility: [facility] Address: [address] [place] [address] Performed By: #### 5 7021-8 ####[facility] [id number] [place] [address] [place] Nucleated RBC (Bld) [#/Vol] 10*3/uL Normal <0.01 [facility] Comment on above: Order Comment: Speci men Type: BLOOD SPECIMENOrdering Facility: [facility] Address: [address] [place] [address] Performed By: #### 5 7021-8 ####[facility] [id number] [place] [address] [place] Nucleated RBC/100 WBC (Bld) [Ratio] 0.0 /[address] [facility] Comment on above: Order Comment: Speci men Type: BLOOD SPECIMENOrdering Facility: [facility] Address: [address] [place] [address] Performed By: #### 5 7021-8 ####[facility] [id number] [place] [id number] [place] Platelet mean volume (Bld) [Entitic vol] 9.7 fL Normal 9.0-12.7 [facility] Comment on above: Order Comment: Speci men Type: BLOOD SPECIMENOrdering Facility: [facility] Address: [address] [place] [address] Performed By: #### 5 7021-8 ####[facility] [id number] [address] [address] [place] Platelets (Bld) [#/Vol] 275 10*3/uL Normal 150-400 [facility] Comment on above: Order Comment: Speci men Type: BLOOD SPECIMENOrdering Facility: [facility] Address: [address] [place] [address] Performed By: #### 5 7021-8 ####[facility] [id number] [place] [address] [place] RBC (Bld) [#/Vol] 4.45 10*6/uL Normal 3.90-5.20 [facility] Comment on above: Order Comment: Speci men Type: BLOOD SPECIMENOrdering Facility: [facility] Address: [address] [place] [address] Performed By: #### 5 7021-8 ####[facility] [id number] [place] [address] [place] WBC (Bld) [#/Vol] 12.41 10*3/uL High 3.70-11.00 [facility] Comment on above: Order Comment: Speci men Type: BLOOD SPECIMENOrdering Facility: [facility] Address: [address] [place] [address] Performed By: #### 5 7021-8 ####[facility] [id number] [place] [id number] [place] Comprehensive metabolic 2000 panelon 08-29-2024 Albumin [Mass/Vol] 3.7 g/dL Low 3.9-4.9 [facility] Comment on above: Order Comment: Speci men Type: BLOOD SPECIMENOrdering Facility: [facility] Address: [address] [place] [address] [place] [address] Performed By: #### 2 4323-8, 3016-3 ####[facility] [id number] [facility] [address] [place] [address] [place] ALP [Catalytic activity/Vol] 61 U/L Normal 34-123 [facility] Comment on above: Order Comment: Speci men Type: BLOOD SPECIMENOrdering Facility: [facility] Address: [address] [place], [place] [address] Performed By: #### 2 4323-8, 6-3 ####[facility] [id number] [facility] [address] [place] [address] [place] ALT [Catalytic activity/Vol] 14 U/L Normal 7-38 [facility] Comment on above: Order Comment: Speci men Type: BLOOD SPECIMENOrdering Facility: [facility] Address: [address] [place], [place] [address] Performed By: #### 2 432-8, 6-3 ####[facility] [id number] [facility] [address] [place] [address] [place] Anion gap [Moles/Vol] 11 mmol/L Normal 8-15 [facility] Comment on above: Order Comment: Speci men Type: BLOOD SPECIMENOrdering Facility: [facility] Address: [address] [place] [address] Performed By: #### 2 4323-8, 6-3 ####[facility] [id number] [facility] [address] [place] [address] [place] AST [Catalytic activity/Vol] 26 U/L Normal 13-35 [facility] Comment on above: Order Comment: Speci men Type: BLOOD SPECIMENOrdering Facility: [facility] Address: [address] [place] [address] Performed By: #### 2 4323-8, 3016-3 ####[facility] [id number] [facility] [place] [address] [place] Bilirubin [Mass/Vol] 0.2 mg/dL Normal 0.2-1.3 [facility] Comment on above: Order Comment: Speci men Type: BLOOD SPECIMENOrdering Facility: [facility] Address: [address] [place] [address] Performed By: #### 2 4323-8, 3016-3 ####[facility] [id number] [place] [address] [place] Calcium [Mass/Vol] 8.9 mg/dL Normal 8.5-10.2 [facility] Comment on above: Order Comment: Speci men Type: BLOOD SPECIMENOrdering Facility: [facility] Address: [address] [place] [address] Performed By: #### 2 4323-8, 6-3 ####[facility] [id number] [place] [address] [place] Chloride [Moles/Vol] 103 mmol/L Normal 98-107 [facility] Comment on above: Order Comment: Speci men Type: BLOOD SPECIMENOrdering Facility: [facility] Address: [address] [place] [address] Performed By: #### 2 4323-8, 6-3 ####[facility] [id number] [place] [address] [place] CO2 [Moles/Vol] 21 mmol/L Low 22-30 [facility] Comment on above: Order Comment: Speci men Type: BLOOD SPECIMENOrdering Facility: [facility] Address: [address] [place], [place] [address] Performed By: #### 2 4323-8, 3016-3 ####[facility] [id number] [place] [id number] [place] Creatinine [Mass/Vol] 0.49 mg/dL Low 0.58-0.96 [facility] Comment on above: Order Comment: [place] Type: BLOOD SPECIMENOrdering Facility: [facility] Address: [address] [place] [address] Performed By: #### 2 4323-8, 3016-3 ####[facility] [id number] [place] [id number] [place] Creatinine and Glomerular filtration rate.predicted panel (S/P/Bld) 133 mL/min/1.73m??? Normal >=60 [facility] Comment on above: Order Comment: [place] Type: BLOOD SPECIMENOrdering Facility: [facility] Address: [address] [place] [address] Result Comment: Nadya mated Glomerular Filtration Rate [...] GFR. Performed By: #### 2 4323-8, 6-3 ####[facility] [id number] [place] [id number] [place] Glucose [Mass/Vol] 75 mg/dL Normal 74-99 [facility] Comment on above: Order Comment: [place] Type: BLOOD SPECIMENOrdering Facility: [facility] Address: [address] [place] [address] Result Comment: The Indian Diabetes Association (ADA) provides guidance for cutoff [...] Standards of Medical Care in Diabetes 2016, Indian Diabetes Association. Diabetes Care. 2016.39(Suppl 1). Performed By: #### 2 4323-8, 6-3 ####[facility] [id number] [address] [address] [place] Potassium [Moles/Vol] 4.1 mmol/L Normal 3.7-5.1 [facility] Comment on above: Order Comment: Speci men Type: BLOOD SPECIMENOrdering Facility: [facility] Address: [address] [place] [id number] Performed By: #### 2 4323-8, 3015-3 ####[facility] [id number] [place] [id number] [place] Protein [Mass/Vol] 7.0 g/dL Normal 6.3-8.0 [facility] Comment on above: Order Comment: Speci men Type: BLOOD SPECIMENOrdering Facility: [facility] Address: [address] [place] [id number] Performed By: #### 2 4323-8, 3 ####[facility] [id number] [place] [id number] [place] Sodium [Moles/Vol] 135 mmol/L Low 136-144 [facility] Comment on above: Order Comment: Speci men Type: BLOOD SPECIMENOrdering Facility: [facility] Address: [address] [place] [id number] Performed By: #### 2 4323-8, 3015-3 ####[facility] [id number] [address] [address] [place] Urea nitrogen [Mass/Vol] 8 mg/dL Normal 7-21 [facility] Comment on above: Order Comment: Speci men Type: BLOOD SPECIMENOrdering Facility: [facility] Address: [address] [place] [address] Performed By: #### 2 4323-8, 6-3 ####[facility] [id number] [place] [address] [place] HBV surface Ag Ser Qlon 08-03 HBV surface Ag Ql (S) Negative Normal Negative [facility] Comment on above: Order Comment: Speci men Type: BLOOD SPECIMENOrdering Facility: [facility] Address: [address] [place] [address] Performed By: #### 3 1201-7, 88890-3, 5195-3 ####[facility] [id number] [place] [address] [place] HCV Ab Ser Qlon 08-29-2024 HCV Ab Ql (S) Negative Normal Negative [facility] Comment on above: Order Comment: Speci men Type: BLOOD SPECIMENOrdering Facility: [facility] Address: [address] [place] [address] Result Comment: The result suggests no evidence of infection with Hepatitis C virus. Should recent infection be suspected, repeat testing may be considered 4-6 weeks after this draw. Performed By: #### 1 6128-1 ####[facility] [id number] [place] [address] [place] HIV 1+2 Ab IA Qlon HIV 1 and 2 Ab IA.rapid Nom (S/P/Bld) Normal [facility] Comment on above: Order Comment: Speci men Type: BLOOD SPECIMENOrdering Facility: [facility] Address: [address] [place] [address] Result Comment: Test not indicated. Performed By: #### 3 1201-7, 37939-5, 5195-3 ####[facility] [id number] [place] [address] [place] HIV 1+2 Ab+HIV1 p24 Ag IA Ql Non-Reactive Normal Nonreactive [facility] Comment on above: Order Comment: Speci men Type: BLOOD SPECIMENOrdering Facility: [facility] Address: [address] [place] [address] Performed By: #### 3 1201-7, 58502-9, 5195-3 ####[facility] [id number] [place] [address] [place] HIV immunoassay testing algorithm interpretation (S/P/Bld) [Interp] Normal [facility] Comment on above: Order Comment: Speci men Type: BLOOD SPECIMENOrdering Facility: [facility] Address: [address] [place] [address] Result Comment: No e vidence of HIV-1 or HIV-2 infection. Should recent infection be suspected, repeat testing may be considered 2-3 weeks after this draw. [place] Rev. Code 3701.243(E): This information has been [...] or diagnoses. Performed By: #### 3 1201-7, 36043-5, 5195-3 ####[facility] [id number] [place] [address] [place] HbA1c (Bld)on 08-29-2024 Average glucose Estimated from glycated hemoglobin (Bld) [Mass/Vol] 100 mg/dL Normal [facility] Comment on above: Order Comment: Speci men Type: BLOOD SPECIMENOrdering Facility: [facility] Address: [address] [place] [address] Result Comment: eAG: (Estimated average glucose) is a calculated value from HgbA1c and is farm loan representative of the average blood glucose level in the last 2-3 month period. Performed By: #### 5 5454-3 ####[facility] [id number] [place] [address] [place] HbA1c (Bld) [Mass fraction] 5.1 % Normal 4.3-5.6 [facility] Comment on above: Order Comment: Speci men Type: BLOOD SPECIMENOrdering Facility: [facility] Address: [address] [place] [address] Result Comment: Amer [place] Diabetes Association guidelines indicate that patients with HgbA1c in the range 5.7-6.4% are at increased risk for development of diabetes, and intervention by lifestyle modification may be beneficial. HgbA1c greater or equal to 6.5% is considered diagnostic of diabetes. Performed By: #### 5 5454-3 ####[facility] [id number] [place] [id number] [place] Prot/Creat Uron 08-29-2024 Protein/Creatinine (U) [Mass ratio] 0.31 mg/mg High <0.15 [facility] Comment on above: Order Comment: Speci men Type: URINE SPECIMENOrdering Facility: [facility] Address: [address] [place] [address] Result Comment: Adul t Proteinuria Categories: <0.15 mg/mg is considered normal to mildly increased 0.15 - 0.50 mg/mg is considered moderately increased >0.50 mg/mg is considered severely increased KDIGO. (2013). KDIGO 2012 Clinical Practice Guideline for the Evaluation and Management of Chronic Kidney Disease. Official Journal of the International Society of Nephrology, 3(1), 1-150. Performed By: #### 2 890-2 ####[facility] LABIA [id number] [place] [id number] [place] Protein/Creatinine (U) [Mass ratio]on 08-29-2024 Creatinine (U) [Mass/Vol] 293.9 mg/dL Normal 20.0-300.0 [facility] Comment on above: Order Comment: Speci men Type: URINE SPECIMENOrdering Facility: [facility] Address: [address] [id number] Performed By: #### 2 890-2 ####[facility] [id number] [place] [id number] [place] Protein (U) [Mass/Vol] 91 mg/dL High 0-20 [facility] Comment on above: Order Comment: Speci men Type: URINE SPECIMENOrdering Facility: [facility] Address: [address] [place] [address] Performed By: #### 2 890-2 ####[facility] [id number] [place] [address] [place] RUBELLA IGG ANTIBODYon 08-29 RUBELLA IGG AB, QUAL Negative Abnormal Positive [facility] Comment on above: Order Comment: Speci men Type: BLOOD SPECIMENOrdering Facility: [facility] Address: [address] [place] [address] Result Comment: The result suggests no history of Rubella vaccination or exposure to Rubella virus, however, some individuals with past history of Rubella vaccination may test negative using this test as immunity to Rubella virus wanes over time after vaccination. Please correlate with vaccination history if applicable. Performed By: #### R UBIGG ####[facility] [id number] [place] [address] [place] Reagin and Treponema pallidu m IgG and IgM [Interp]on 08-29-2024 T. pallidum IgG+IgM IA Ql (S) Non-Reactive Normal Nonreactive [facility] Comment on above: Order Comment: Speci men Type: BLOOD SPECIMENOrdering Facility: [facility] Address: [address] [place] [address] Performed By: #### 3 1201-7, 09815-4, 5195-3 ####[facility] [id number] [place] [address] [place] Reagin+T pallidum IgG+IgM Se rPl-Impon 08-29-2024 Reagin and Treponema pallidum IgG and IgM [Interp] Cannot exclude recent Treponemal infection if specimen collected within 7-10 days after appearance of suspect lesions or 2-3 weeks after an exposure. Clinical correlation is required. Normal [facility] Comment on above: Order Comment: Speci men Type: BLOOD SPECIMENOrdering Facility: [facility] Address: [address] [place] [address] Performed By: #### 3 1201-7, 09642-3, 5195-3 ####[facility] LABCLIA [id number] [place] [address] [place] TSH SerPl-aCncon 08-29-2024 TSH Qn 1.840 m[IU]/L Normal 0.270-4.200 [facility] Comment on above: Order Comment: Speci men Type: BLOOD SPECIMENOrdering Facility: [facility] Address: [address] [place] [address] Result Comment: If t he patient is , TSH reference range varies by gestational period: First Trimester (weeks 9-12): 0.180-2.990 mIU/L Second Trimester: 0.110-3.980 mIU/L Third Trimester: 0.480-4.710 mIU/L Yariel Garcia et al. A Practical Approach for the Verifications and Determination of Site- and Trimester-Specific Reference Intervals for Thyroid Function tests in . Thyroid, 2019:29:3:412-420. Juan E, et al. 2017 Guidelines of the [place] Thyroid Association for the Diagnosis and Management of Thyroid Disease during and the . Thyroid, 2017:27:3:315-389. Performed By: #### 2 4323-8, 3016-3 ####[facility] LABCLIA [id number] [place] [address] [place] TYPE + SCREEN PRENATALon ABO A Normal [facility] Comment on above: Order Comment: Speci men Type: BLOOD SPECIMENOrdering Facility: [facility] Address: [address] [place] [address] Performed By: #### T SPN ####[facility] BLOOD BANKCLIA [id number] [place] [address] [place] Rh Nom (Bld) Positive Normal [facility] Comment on above: Order Comment: Speci men Type: BLOOD SPECIMENOrdering Facility: [facility] Address: [address] [place] [address] Performed By: #### T SPN ####[facility] BLOOD BANKCLIA [id number] [place] [id number] [facility] TYPE AND SCREEN EXPIRATION 09/01/2024 23:[address] [facility] Comment on above: Order Comment: Speci men Type: BLOOD SPECIMENOrdering Facility: [facility] Address: [address] [place] [address] Performed By: #### T SPN ####[facility] BLOOD BANKCLIA [id number] [place] [id number] [facility] CNPNon 08-02-2024 CNPN Telephone ([id number]) -- JANET FRANK ([id number]) 2000 [facility] Date Time Provider Department 08/02/24 STEFFANIE NEELY [id number] During your visit today, we recorded the following information about you: Steffanie Neely RN 08/02/2024 12:41 PM Signed 1st risk assessment form submitted 08/02/2024. Steffanie Neely RN Allergies As of Date: 08/02/2024 (No Known Allergies) Date Reviewed: 08/01/2024 Reviewed by: Tammy Duke LPN - Fully Assessed Reason for Visit: [employer] - Other [0265] Cmt: PRADonny Prescriptions as of 08/02/2024 - metroNIDAZOLE (FLAGYL) 500 mg tablet Take 1 tablet by mouth two times a day for 7 days. - aspirin, enteric coated (ECOTRIN LOW STRENGTH) 81 mg EC tablet Take 1 tablet by mouth once daily. - VIT 6-MSVB-UQEAK-DHA ORAL Take by mouth. - diphenhydramine HCl [...] Status:Closed by STEFFANIE NEELY on 08/02/24 Normal [facility] Telephone (OBGYWM) -- JANET FRANK ([id number]) 2000 F CHT Date Time Provider Department [...] days.Disp: 14 tabletRfl: 0 [employer]NER T[employer]ATMENT [[id number]] Order #: [id number]: 1 metroNIDAZOLE (FLAGYL) 500 mg tabletTake 1 [...] tablet by mouth once daily. - VIT 8-JJDL-RFXML-DHA ORAL Take by mouth. - diphenhydramine HCl [...] meal. P (more content not included)... Normal [facility] Bacteria Ur Culton 5 Bacteria identified Cx Nom (U) ORGANISM ID: 1 >=100,000 CFU/ml Normal urogenital pineda Normal [facility] Comment on above: Performed By: #### 6 30-4 ####[facility] [id number] [place] [address] [place] C. trachomatis+N. gonorrhoea e DNA RODERICK+probe Ql (Unsp spec)on 08-01-2024 C. trachomatis rRNA RODERICK+probe Ql (Unsp spec) Not detected Normal Not detected [facility] Comment on above: Order Comment: Speci men Type: SWABOrdering Facility: [facility] Address: [address] [place] [address] Performed By: #### 3 6902-5, TRRICHARD ####[facility] [id number] [place] [address] [place] N. gonorrhoeae rRNA RODERICK+probe Ql (Unsp spec) Not detected Normal Not detected [facility] Comment on above: Order Comment: Speci men Type: SWABOrdering Facility: [facility] Address: [address] [place] [address] Performed By: #### 3 6902-5, TRVAMP ####[facility] LABCLIA [id number] [place] [address] [place] POC ICT DEVELOPMENT MANAGER ULTRASOUNDon 08-02-19 Indication Confirmation of intrauterine . [...] by LMP 8 w + 2 d EKLLEY by LMP: 03/11/2025 Ultrasound examination on: 08/01/2024 [...] Read By: Elayne Severino CNP MATERNAL MEDICINE [facility] Radiology Study observation (narrative) [facility] TRICHOMONAS VAGINALIS NAATon 08-01-2024 T. vaginalis DNA RODERICK+probe Ql (Unsp spec) Detected Abnormal Not detected [facility] Comment on above: Order Comment: Speci men Type: SWABOrdering Facility: [facility] Address: [address] [place] [address] Performed By: #### 3 6902-5, TRVAMP ####[facility] LABCLIA [id number] [place] [id number] [place] Peggy 07-25-2024 CNPN Telephone (OBGYWM) -- ZACJANET J ([id number]) 2000 F T Date Time Provider Department [...] tablet by mouth once daily. - VIT 4-QPZZ-YATPB-DHA ORAL Take by mouth. - diphenhydramine HCl [...] Encounter Status:Closed by XAVIER CURRIE on 08/02/24 [facility] 07-22-2024 CNPN Telephone (FAMPWS) -- JANET FRANK ([id number]) 2000 F T Date Time Provider Department 07/22/24 [facility] your visit today, we recorded [...] Encounter Status:Closed by LELA DALEY on 07/22/24 [facility] CNOVon 07-20-2024 CNOV Office Visit (OBGYWM ) -- JANET FRANK ([id number]) 2000 F CHT Date Time Provider Department 07/20/24 1:00 PM ROXANA FRY OBGYWM During your visit today, we recorded the following information about you: Blood pressure Weight Last Period 112 99.2 kg 06/04/24 Roxana Fry, RESTAURANT LEAD.CNM 07/20/2024 1:31 PM Signed Janet Diego Zac [...] transfusion after due to CBC of 3. Attendance Secretary History LMP: 05/13/2024 (Exact Date), Having periods Age at Menarche: Age at First : Age at Menopause: Attendance Secretary History Comments: Sexual Activity: Yes; Male Contraception: [...] SICKNESS IN by Bev Horowitz M.D. for [employer] As you may already know, morning sickness can often be more appropriately called evening sickness or fyrhe-rhznbe-ej-the-day sickness. While there are the bautista few, most women (50-90%) experience some degree of nausea, some have vomiting, and a few develop a severe form of vomiting during called hyperemesis gravidarum. What causes the nausea and vomiting of ? We (more content not included)... Normal [facility] UA DIP,URINE HCG (POC)on Beta HCG ( test) Ql (U) Positive Abnormal Negative [facility] Comment on above: Location:[facility], [address], [place], [address] Interpretation and review of laboratory results Abnormal [facility] Underground Roof Bolter (POCT) Internal QC [facility] Location:[facility], [address], [place], [place], [id number] [place] [address] POINT OF CARE [facility] CNCOon 07-06-20[address] [facility] CNCOon 06-27-2024 [address]CO [address] [facility] CNPNon [facility]-20[facility]ANET FR[facility] ([id number]) 2000 F T Date Time Provider Department 06/20/24 [facility] During your visit today, we recorded [...] Rx for 30 mg Buspar sent to [facility] Justino Rodriguez. BENEDICT Reynoso Ashley, APRN.CIERRA 06/20/2024 [...] Encounter Status:Closed by IVELISSE NG on 06/20/24 [facility] Tram 05-13-2024 CNOV Office Visit (FAMPWS ) -- JANET FRANK ([id number]) 2000 F CHT Date Time Provider Department 05/13/24 1:40 PM TERRELL CLOUD During your visit today, we recorded the following information about you: Temperature Pulse Respiration Blood pressure 99 degrees 72/minute 16/minute 121/78 Weight 93.4 kg Terrell Cloud APRN.SUPERVISOR ESTIMATOR AND DRAFTER 05/13/2024 1:47 PM Signed Chief Complaint Patient [...] APRN.CIERRA This note was partly generated using [employer] voice recognition dictation and may contain some [...] food. Level of Service: OFFICE/OUTPATIENT ESTABLISHED MOD [facility] 30 MIN [82215] Encounter Status:Closed by TERRELL CLOUD on 05/13/24 [facility] Office Visit (OBGYWM ) -- [facility] ([id number]) 2000 [facility] Provider Department 05/13/24 10:00 AM ELAYNE SEVERINO OBGYWM During your visit today, we recorded the following information about you: Blood pressure Weight Last Period 122/66 94.9 kg 05/13/24 Elayne Severino APRN.SUPERVISOR ESTIMATOR AND DRAFTER 05/13/2024 10:22 AM Signed Janet Cortez Zac [...] transfusion after due to CBC of 3. Attendance Secretary History LMP: 05/13/2024 (Exact Date), Having periods Age at Menarche: Age at First : Age at Menopause: Attendance Secretary History Comments: Sexual Activity: Yes; Male Contraception: [...] once da (more content not included)... Normal [facility] CNOVon 04-14-2024 CNOV Office Visit (WSTR ) -- ZACJANET ([id number]) 2000 F T Date Time Provider Department 04/14/24 12:00 PM [facility] During your visit today, we recorded the following information about you: Temperature Pulse Respiration Blood pressure 98 degrees 103/minute 20/minute 104/82 Weight 92.4 kg Kenneth Mckeon, RESTAURANT LEAD.SUPERVISOR ESTIMATOR AND DRAFTER 04/14/2024 1:33 PM Signed Subjective HPI Nontoxic-appearing [...] distension. Palpa (more content not included)... Normal [facility] STREP A MOLECULAR (POC)on Procedural Control Valid [facility] Strep A (POCT) Negative Negative [facility] US Pelvison 11-19-2023 Indication irregular menses, menorrhagia [...] Read By: Radha Tejada M.D. MATERNAL MEDICINE [facility] Radiology Study observation (narrative) [facility] Erythrocyte sedimentation ra teOrdered By: Thierno Winston on 07-02-2023 ESR (Bld) [Velocity] 5 mm/h 0-30 [facility] Laboratory - Microbiology an d Antimicrobial susceptibilityOrdered By: Thierno Winston on 07-02-2023 SARS-CoV-2 (COVID-19) RNA RODERICK+probe Ql (Unsp spec) [facility] Serum or plasma choriogonado tropin detectionOrdered By: Thierno Winston on 07-02-2023 HCG ( test) Ql Negative [facility] UA DIP, URINE (POC)on 2022 BILIRUBIN UA (POCT) Small Abnormal Negative [facility] CLARITY UA (POCT) Clear [facility] COLOR UA (POCT) [place] [facility] GLUCOSE UA (POCT) 100 mg/dL Abnormal Negative mg/dL [facility] HEMOGLOBIN/BLOOD UA (POCT) Trace-intact Abnormal Negative [facility] KETONE UA (POCT) Trace Negative mg/dL [facility] LEUKOCYTES UA (POCT) Large Abnormal Negative [facility] NITRITE UA (POCT) Positive Abnormal Negative [facility] PH UA (POCT) 5.0 4.5 - 8.0 [facility] Protein Ql (U) 100 mg/dL Abnormal Negative mg/dL [facility] SPECIFIC GRAVITY UA (POCT) 1.015 1.005 - 1.030 [facility] UROBILINOGEN UA (POCT) 4.0 E.U./dL Abnormal Layne l E.U./dL [facility] Absolute lymphocyte countOrd ered By: Geoff Meza on 09-06-2022 Lymphocytes Auto (Unsp spec) [#/Vol] 1.63 10*3/uL 0.83-4.51 [facility] Basophil percentageOrdered B y: Geoff Meza on 09-06-2022 Basophil percentage 0 SEEN /hpf 0-5 [facility] Basophils/100 WBC (Bld) 0.8 % 0-1 [facility] Chloride [Moles/Vol] 106 mmol/L 98-107 [facility] Eosinophils/100 WBC (Bld) 2.5 % 0-5 [facility] Glucose [Mass/Vol] 86 mg/dL 74-106 [facility] Neutrophils (Bld) [#/Vol] 8.4 10*3/uL 2.0-7.7 [facility] Neutrophils/100 WBC (Bld) 75.4 % 47-70 [facility] Potassium [Moles/Vol] 3.3 mmol/L 3.5-5.1 [facility] Sodium [Moles/Vol] 139 mmol/L 136-145 [facility] WBC (Bld) [#/Vol] 11.2 10*3/uL 4.4-11.0 [facility] Bilirubin Test strip Ql (U)O rdered By: Geoff Meza on 09-06-2022 Bilirubin Ql (U) Negative Negative [facility] Blood erythrocytes count (nu mber/volume)Ordered By: Geoff Meza on 09-06-2022 RBC (Bld) [#/Vol] 5.26 10*6/uL 4.2-5.4 [facility] Blood hemoglobin measurement (mass/volume)Ordered By: Geoff Meza on 09-06-2022 Hemoglobin (Bld) [Mass/Vol] 14.3 g/dL 12.0-15.0 [facility] Blood lymphocytes/100 leukoc ytesOrdered By: Geoff Meza on 09-06-2022 Lymphocytes/100 WBC (Bld) 14.6 % 19-41 [facility] Blood monocytes/100 leukocyt esOrdered By: Geoff Meza on 09-06-2022 Monocytes/100 WBC (Bld) 6.3 % 0-10 [facility] Blood platelet mean volumeOr dered By: Geoff Meza on 09-06-2022 Platelet mean volume (Bld) [Entitic vol] 9.1 fL 6.2-12.0 [facility] Determination of erythrocyte mean corpuscular volume (MCV)Ordered By: Geoff Meza on 09-06-2022 MCV (RBC) [Entitic vol] 79.8 fL 81-99 [facility] Hematocrit Auto (Bld) [Volum e fraction]Ordered By: Geoff Meza on 09-06-2022 Hematocrit (Bld) [Volume fraction] 42.0 % 37-47 [facility] Ketones Test strip Ql (U)Ord ered By: Geoff Meza on 09-06-2022 Ketones Ql (U) Negative Negative [facility] Laboratory - Chemistry and C hemistry - challengeOrdered By: Geoff Meza on 09-06-2022 CK [Catalytic activity/Vol] 259 U/L 26-192 [facility] CO2 [Moles/Vol] 24.0 mmol/L 21.0-32.0 [facility] HCG ( test) Ql (U) Negative [facility] Comment on above: Very dilute urine sp ecimens, as indicated by a low specificgravity, may not contain farm loan representative levels of hCG. If is still suspected, a first morning urinespecimen should be collected 48 hours later and tested. Urea nitrogen/Creatinine [Mass ratio] 11.1 mg/mg 10-20 [facility] Laboratory - Hematology and Cell countsOrdered By: Geoff Meza on 09-06-2022 Erythrocyte distribution width (RBC) [Entitic vol] 38.1 fL 35.1-43.9 [facility] Erythrocyte distribution width (RBC) [Ratio] 13.3 % 11.6-14.6 [facility] Immature granulocytes/100 WBC (Bld) 0.400 % 0.0-0.9 [facility] Comment on above: IG% - Immature Granu locytes (promyelocytes, myelocytes and metamyelocytes) > 1% indicates that a LEFT SHIFT is Present. MCH (RBC) [Entitic mass] 27.2 pg 27.0-32.0 [facility] Nucleated RBC/100 WBC (Bld) [Ratio] 0 % 0-5 [facility] MCHC Auto (RBC) [Mass/Vol]Or dered By: Geoff Meza on 09-06-2022 MCHC (RBC) [Mass/Vol] 34.0 g/dL 32-36 [facility] Mucus LM Ql (Urine sed)Order ed By: Geoff Meza on 09-06-2022 Mucus Ql (Urine sed) 0 SEEN /hpf [facility] Nitrite Test strip Ql (U)Ord ered By: Geoff Meza on 09-06-2022 Nitrite Ql (U) Negative Negative [facility] No Panel InformationOrdered By: Geoff Meza on 09-06-2022 D-Dimer Quantitative (PE/DVT) < 0.27 FEU/ug/m 0.27-0.49 [facility] Comment on above: NORMAL D-Dimer level (<0.50) indicates no DVT or PE. Estimated Creatinine Clearance Calc 88.59 ml/min [facility] Estimated GFR (MDRD) Amer 111 mL/min >60 [facility] Comment on above: GFR Calc Estimated GFR (MDRD) Non-Af Amer 92 mL/min >60 [facility] Comment on above: Non- GFR Calc Thyroid Stimulating Hormone (TSH) 1.82 uIU/mL 0.358-3.74 [facility] Platelets bldOrdered By: Yelena Meza on 09-06-2022 Platelets (Bld) [#/Vol] 282 10*3/uL 150-450 [facility] Protein Test strip Ql (U)Ord ered By: Geoff Meza on 09-06-2022 Protein Ql (U) 15 mg/dl Negative [facility] Serum or plasma calcium lesley urement (mass/volume)Ordered By: Geoff Meza on 09-06-2022 Calcium [Mass/Vol] 9.4 mg/dL 8.5-10.1 [facility] Serum or plasma creatinine m easurement (mass/volume)Ordered By: Geoff Meza on 09-06-2022 Creatinine [Mass/Vol] 0.81 mg/dL 0.55-1.02 [facility] Comment on above: The validity of the calculated GFR & GFRAA in patients over 70 years has not been determined. Clinical correlation is essential. Serum or plasma urea nitroge n measurement (mass/volume)Ordered By: Geoff Meza on 09-06-2022 Urea nitrogen [Mass/Vol] 9 mg/dL 7-18 [facility] Squamous epithelial cells de tection in urine sediment by light microscopyOrdered By: Geoff Meza on 09-06-2022 Epithelial cells.squamous LM Ql (Urine sed) 0-5 SEEN /hpf 5-10 [facility] Thin prep Papanicolaou smear with manual screeningOrdered By: Geoff Meza on 09-06-2022 Thin prep Papanicolaou smear with manual screening 9 5-15 [facility] Urine blood detectionOrdered By: Geoff Meza on 09-06-2022 RBC Ql (U) 10 /ul Negative [facility] RBC Ql (U) 0 SEEN /hpf 0-5 [facility] Urine clarityOrdered By: Yelena Meza on 09-06-2022 Clarity (U) Clear Clear [facility] Urine color determinationOrd ered By: Geoff Meza on 09-06-2022 Color (U) Yellow Yellow [facility] Urine glucose detectionOrder ed By: Geoff Meza on 09-06-2022 Glucose Ql (U) Normal mg/dl Normal [facility] Urine leukocyte esterase det ection by dipstickOrdered By: Geoff Meza on 09-06-2022 Leukocyte esterase Test strip Ql (U) Negative Negative [facility] Urine pHOrdered By: Geoff cardoza on 09-06-2022 pH (U) 7.0 [pH] 5.0 - 8.0 [facility] Urine sediment bacteria coun t by microscopy (number/high power field)Ordered By: Geoff Meza on 09-06-2022 Bacteria LM.HPF (Urine sed) [#/Area] 0 /[HPF] None Seen [facility] Urine specific gravity measu rementOrdered By: Geoff Meza on 09-06-2022 Specific gravity (U) [Rel density] 1.010 1.002-1.030 [facility] Urobilinogen Auto test strip Ql (U)Ordered By: Geoff Meza on 09-06-2022 Urobilinogen Ql (U) Normal mg/dl Normal [facility] BASIC METABOLIC PANELon 08-03 Anion gap [Moles/Vol] 15 mmol/L Normal 10 - 20 [facility] Comment on above: Order Comment: Veronica LUCERO to Puja Yepez, 08/22/2022 15:26 Performed By: #### B MP #### [address] [address] Potassium [Moles/Vol] 2.9 mmol/L Critically low 3.5 - 5.3 [facility] Comment on above: Order Comment: Martin d- RB to Puja Yepez, 08/22/2022 15:26 Result Comment: Conf irmed by repeat analysis Called- RB to Puja Yepez, 08/22/2022 15:26 Performed By: #### B MP #### [address] [address] Calcium [Mass/Vol] 9.3 mg/dL Normal 8.6 - 10.3 [facility] Comment on above: Order Comment: Martin d- RB to Puja Yepez, 08/22/2022 15:26 Performed By: #### B MP #### [address] [address] Chloride [Moles/Vol] 103 mmol/L Normal 98 - 107 [facility] Comment on above: Order Comment: Martin d- RB to Puja Yepez, 08/22/2022 15:26 Performed By: #### B MP #### [address] [address] Creatinine [Mass/Vol] 0.67 mg/dL Normal 0.50 - 1.05 [facility] Comment on above: Order Comment: Martin d- RB to Puja Yepez, 08/22/2022 15:26 Performed By: #### B MP #### [address] [address] eGFR FEMALE >90 Normal >90 [facility] Comment on above: Order Comment: Martin d- RB to Puja Yepez, 08/22/2022 15:26 Result Comment: CALC ULATIONS OF ESTIMATED GFR ARE PERFORMED USING THE 2020 CKD-EPI STUDY REFIT EQUATION WITHOUT THE RACE VARIABLE FOR THE IDMS-TRACEABLE CREATININE METHODS. https://jasn.asnjournals.org/content//ASN.17669 94444 Performed By: #### B MP #### [place] [id number] Glucose [Mass/Vol] 79 mg/dL Normal 74 - 99 [facility] Comment on above: Order Comment: Martin d- RB to Puja Yepez, 08/22/2022 15:26 Performed By: #### B MP #### [place] [id number] HCO3 (Bld) [Moles/Vol] 22 mmol/L Normal 21 - 32 [facility] Comment on above: Order Comment: Martin d- RB to Puja Yepez, 08/22/2022 15:26 Performed By: #### B MP #### [place] [id number] Sodium [Moles/Vol] 137 mmol/L Normal 136 - 145 [facility] Comment on above: Order Comment: Martin d- RB to Puja Yepez, 08/22/2022 15:26 Performed By: #### B MP #### [place] [id number] Urea nitrogen [Mass/Vol] 6 mg/dL Normal 6 - 23 [facility] Comment on above: Order Comment: Martin d- RB to Puja Yepez, 08/22/2022 15:26 Performed By: #### B MP #### [place] [id number] CBC AND DIFFERENTIALon 08-22 % AUTOMATED IMMATURE GRAN 0.4 % Normal 0.0 - 0.9 [facility] Comment on above: Result Comment: Chioma ture Granulocyte Count (IG) includes promyelocytes, myelocytes and metamyelocytes but does not include bands. Percent differential counts (%) should be interpreted in the context of the absolute cell counts (cells/L). Performed By: #### C BCDF #### [place] [id number] Basophils (Bld) [#/Vol] 0.06 10*3/uL Normal 0.00 - 0.10 [facility] Comment on above: Performed By: #### C BCDF #### [place] [id number] Basophils/100 WBC (Bld) 0.6 % Normal 0.0 - 2.0 [facility] Comment on above: Performed By: #### C BCDF #### [address] [address] Eosinophils (Bld) [#/Vol] 0.10 10*3/uL Normal 0.00 - 0.70 [facility] Comment on above: Performed By: #### C BCDF #### [address] [address] Eosinophils/100 WBC (Bld) 0.9 % Normal 0.0 - 6.0 [facility] Comment on above: Performed By: #### C BCDF #### [address] [address] Erythrocyte distribution width (RBC) [Ratio] 13.3 % Normal 11.5 - 14.5 [facility] Comment on above: Performed By: #### C BCDF #### [address] [address] Hematocrit (Bld) [Volume fraction] 40.0 % Normal 36.0 - 46.0 [facility] Comment on above: Performed By: #### C BCDF #### [address] [address] Hemoglobin (Bld) [Mass/Vol] 13.6 g/dL Normal 12.0 - 16.0 [facility] Comment on above: Performed By: #### C BCDF #### [address] [address] Lymphocytes (Bld) [#/Vol] 2.50 10*3/uL Normal 1.20 - 4.80 [facility] Comment on above: Performed By: #### C BCDF #### [address] [address] Lymphocytes/100 WBC (Bld) 23.1 % Normal 13.0 - 44.0 [facility] Comment on above: Performed By: #### C BCDF #### [address] [address] MCHC (RBC) [Mass/Vol] 34.0 g/dL Normal 32.0 - 36.0 [facility] Comment on above: Performed By: #### C BCDF #### [address] [address] MCV (RBC) [Entitic vol] 79 fL Low 80 - 100 [facility] Comment on above: Performed By: #### C BCDF #### [address] [address] Monocytes (Bld) [#/Vol] 0.84 10*3/uL Normal 0.10 - 1.00 [facility] Comment on above: Performed By: #### C BCDF #### [address] [address] Monocytes/100 WBC (Bld) 7.7 % Normal 2.0 - 10.0 [facility] Comment on above: Performed By: #### C BCDF #### [address] [address] Neutrophils (Bld) [#/Vol] 7.30 10*3/uL Normal 1.20 - 7.70 [facility] Comment on above: Result Comment: Perc ent differential counts (%) should be interpreted in the context of the absolute cell counts (cells/L). Performed By: #### C BCDF #### [address] [address] Neutrophils/100 WBC (Bld) 67.3 % Normal 40.0 - 80.0 [facility] Comment on above: Performed By: #### C BCDF #### [address] [address] Platelets (Bld) [#/Vol] 304 10*3/uL Normal 150 - 450 [facility] Comment on above: Performed By: #### C BCDF #### [address] [address] RBC 5.08 x10E12/L Normal 4.00 - 5.20 [facility] Comment on above: Performed By: #### C BCDF #### [address] [address] WBC (Bld) [#/Vol] 10.8 10*3/uL Normal 4.4 - 11.3 [facility] Comment on above: Performed By: #### C BCDF #### [address] [address] [address] [facility]BDOMEN AND PELVIS W IV CONTRAST Patient Name: JANET FRANK STUDY: CT ABDOMEN AND PELVIS W IV CONTRAST; 08/22/2022 4:11 pm INDICATION: abd pain, diarrhea . COMPARISON: 07/30/2020 ACCESSION NUMBER(S): [id number] ORDERING CLINICIAN: TRIXIE BEARD TECHNIQUE: CT of [...] Electronically signed by: KAMILAH SULTANA MD Normal [facility] HCG,URINEon 08-22-2022 Beta HCG ( test) Ql (U) Negative Normal Negative [facility] Comment on above: Performed By: #### H CGU #### [address] [address] HEPATIC FUNCTION PANELon Albumin [Mass/Vol] 4.5 g/dL Normal 3.4 - 5.0 [facility] Comment on above: Performed By: #### H EPFP #### [address] [address] ALP [Catalytic activity/Vol] 61 U/L Normal 33 - 110 [facility] Comment on above: Performed By: #### H EPFP #### [address] [address] ALT [Catalytic activity/Vol] 24 U/L Normal 7 - 45 [facility] Comment on above: Result Comment: Geraldine ents treated with Sulfasalazine may generate falsely decreased results for ALT. Performed By: #### H EPFP #### [address] [address] AST [Catalytic activity/Vol] 23 U/L Normal 9 - 39 [facility] Comment on above: Performed By: #### H EPFP #### [address] [address] Bilirubin [Mass/Vol] 0.5 mg/dL Normal 0.0 - 1.2 [facility] Comment on above: Performed By: #### H EPFP #### [address] [address] Bilirubin.indirect [Mass/Vol] 0.1 mg/dL Normal 0.0 - 0.3 [facility] Comment on above: Performed By: #### H EPFP #### [address] [address] Protein [Mass/Vol] 7.4 g/dL Normal 6.4 - 8.2 [facility] Comment on above: Performed By: #### H EPFP #### [address] [address] LIPASEon 08-22-2022 Lipase [Catalytic activity/Vol] 16 U/L Normal 9 - 82 [facility] Comment on above: Result Comment: Sofi puncture immediately after or during the administration of Metamizole may lead to falsely low results. Testing should be performed immediately prior to Metamizole dosing. C-zxlbut-l-benzoquinone imine (metabolite of Acetaminophen) will generate erroneously low results in samples for patients that have taken toxic doses of acetaminophen. Performed By: #### L IPAS ####[address] [address] Provider Note - ED v3on 08-03 Provider [...] made to minimize errors. Minor errors in sub master may be present. Please call if questions.. [...] Reference Range: STRAW,YELLOW Appearance, Urine CLEAR Specific [place], Urine 1.009 pH, Urine 6.0 Protein, Urine 30(1+) A Glucose, Urine NEGATIVE (more content not included)... Normal [facility] Risk Screen - Adult Emergenc yon 08-22-2022 Risk Screen - Adult Emergency Preferred Language: Preferred Language: Preferred Language for Discussing Health Care (patient/designee)[place] Patient Preferred Pharmacy: Patient Preferred Pharmacy Statement: [...] instruction; verbal instruction Cultural Considerationsnone Developmental Considerationsnone Gnosticist Considerationsnone Learning Assessment (Other Learner): Learning Assessment [...] Updated: 22-Aug-2022 14:11 by Annel Segundo (RN) [facility] Triage - EDon 08-22-2022 [...] Mireya Score: 15 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 CELLS 3 /HPF Normal [facility] Comment on above: Performed By: #### U AMIC #### [place] [id number] WBC 1 /HPF Normal 0-5 [facility] Comment on above: Performed By: #### U AMIC #### [address] [address] URINALYSIS WITH CULTURE IF I NDICATEDon 08-22-2022 Appearance (U) CLEAR Normal CLEAR [facility] Comment on above: Performed By: #### U ARFX #### [address] [address] Bilirubin Ql (U) Negative Normal NEGATIVE [facility] Comment on above: Performed By: #### U ARFX #### [place] [address] Color (U) Yellow Normal STRAW,YELLOW [facility] Comment on above: Performed By: #### U ARFX #### [place] [address] Glucose Ql (U) Negative Normal NEGATIVE [facility] Comment on above: Performed By: #### U ARFX #### [place] [address] Hemoglobin Ql (U) Negative Normal NEGATIVE [facility] Comment on above: Performed By: #### U ARFX #### [place] [address] Ketones Ql (U) 20(1+) Abnormal NEGATIVE [facility] Comment on above: Performed By: #### U ARFX #### [place] [address] Leukocyte esterase Test strip Ql (U) Negative Normal NEGATIVE [facility] Comment on above: Performed By: #### U ARFX #### [place] [address] Nitrite Ql (U) Negative Normal NEGATIVE [facility] Comment on above: Performed By: #### U ARFX #### [place] [address] pH (U) 6.0 [pH] Normal 5.0 - 8.0 [facility] Comment on above: Performed By: #### U ARFX #### [place] [address] Protein Ql (U) 30(1+) Abnormal NEGATIVE [facility] Comment on above: Performed By: #### U ARFX #### [place] [address] Specific gravity (U) [Rel density] 1.009 Normal 1.005 - 1.035 [facility] Comment on above: Performed By: #### U ARFX #### [place] [address] Urobilinogen (U) [Mass/Vol] mg/dL Normal 0.0 - 1.9 [facility] Comment on above: Performed By: #### U ARFX #### [facility] [address] [place] [address] Absolute lymphocyte countOrd ered By: Dr. Spivey on 06-30-2022 Lymphocytes Auto (Unsp spec) [#/Vol] 2.06 10*3/uL 0.83-4.51 [facility] Basophil percentageOrdered B y: Dr. Spivey on 06-30-2022 Basophil percentage 0 SEEN /hpf 0-5 [facility] Basophils/100 WBC (Bld) 0.6 % 0-1 [facility] Bilirubin [Mass/Vol] 0.40 mg/dL 0.20-1.00 [facility] Comment on above: For patients on eltr ombopag therapy, use of Dimension [place] TBIL is not recommended. Chloride [Moles/Vol] 111 mmol/L 98-107 [facility] Eosinophils/100 WBC (Bld) 1.6 % 0-5 [facility] Glucose [Mass/Vol] 99 mg/dL 74-106 [facility] Neutrophils (Bld) [#/Vol] 6.6 10*3/uL 2.0-7.7 [facility] Neutrophils/100 WBC (Bld) 69.8 % 47-70 [facility] Potassium [Moles/Vol] 3.7 mmol/L 3.5-5.1 [facility] Protein [Mass/Vol] 7.3 g/dL 6.4-8.2 [facility] Sodium [Moles/Vol] 141 mmol/L 136-145 [facility] WBC (Bld) [#/Vol] 9.4 10*3/uL 4.4-11.0 [facility] Beta hCG serum qualOrdered B y: Dr. Spivey on 06-30-2022 Beta HCG ( test) Ql Negative [facility] Bilirubin Test strip Ql (U)O rdered By: Dr. Spivey on 06-30-2022 Bilirubin Ql (U) Negative Negative [facility] Blood erythrocytes count (nu mber/volume)Ordered By: Dr. Spivey on 06-30-2022 RBC (Bld) [#/Vol] 5.18 10*6/uL 4.2-5.4 [facility] Blood hemoglobin measurement (mass/volume)Ordered By: Dr. Spivey on 06-30-2022 Hemoglobin (Bld) [Mass/Vol] 13.9 g/dL 12.0-15.0 [facility] Blood lymphocytes/100 leukoc ytesOrdered By: Dr. Spivey on 06-30-2022 Lymphocytes/100 WBC (Bld) 21.9 % 19-41 [facility] Blood monocytes/100 leukocyt esOrdered By: Dr. Spivey on 06-30-2022 Monocytes/100 WBC (Bld) 5.6 % 0-10 [facility] Blood platelet mean volumeOr dered By: Dr. Spivey on 06-30-2022 Platelet mean volume (Bld) [Entitic vol] 9.3 fL 6.2-12.0 [facility] Determination of erythrocyte mean corpuscular volume (MCV)Ordered By: Dr. Spivey on 06-30-2022 MCV (RBC) [Entitic vol] 81.7 fL 81-99 [facility] Hematocrit Auto (Bld) [Volum e fraction]Ordered By: Dr. Spivey on 06-30-2022 Hematocrit (Bld) [Volume fraction] 42.3 % 37-47 [facility] Ketones Test strip Ql (U)Ord ered By: Dr. Spivey on 06-30-2022 Ketones Ql (U) Negative Negative [facility] Laboratory - Chemistry and C hemistry - challengeOrdered By: Dr. Spivey on 06-30-2022 ALP [Catalytic activity/Vol] 67 U/L 45-117 [facility] ALT [Catalytic activity/Vol] 26 U/L 13-56 [facility] CO2 [Moles/Vol] 23.0 mmol/L 21.0-32.0 [facility] Globulin (S) [Mass/Vol] 3.6 g/dL 2.2-4.2 [facility] Lipase [Catalytic activity/Vol] 109 U/L 73-393 [facility] Urea nitrogen/Creatinine [Mass ratio] 14.7 mg/mg 10-20 [facility] Laboratory - Hematology and Cell countsOrdered By: Dr. Spivey on 06-30-2022 Erythrocyte distribution width (RBC) [Entitic vol] 38.2 fL 35.1-43.9 [facility] Erythrocyte distribution width (RBC) [Ratio] 12.9 % 11.6-14.6 [facility] Immature granulocytes/100 WBC (Bld) 0.500 % 0.0-0.9 [facility] Comment on above: IG% - Immature Granu locytes (promyelocytes, myelocytes and metamyelocytes) > 1% indicates that a LEFT SHIFT is Present. MCH (RBC) [Entitic mass] 26.8 pg 27.0-32.0 [facility] Nucleated RBC/100 WBC (Bld) [Ratio] 0 % 0-5 [facility] MCHC Auto (RBC) [Mass/Vol]Or dered By: Dr. Spivey on 06-30-2022 MCHC (RBC) [Mass/Vol] 32.9 g/dL 32-36 [facility] Mucus LM Ql (Urine sed)Order ed By: Dr. Spivey on 06-30-2022 Mucus Ql (Urine sed) 0 SEEN /hpf [facility] Nitrite Test strip Ql (U)Ord ered By: Dr. Spivey on 06-30-2022 Nitrite Ql (U) Negative Negative [facility] No Panel InformationOrdered By: Dr. Spivey on 06-30-2022 Estimated Creatinine Clearance Calc 105.53 ml/min [facility] Estimated GFR (MDRD) Amer 137 mL/min >60 [facility] Comment on above: GFR Calc Estimated GFR (MDRD) Non-Af Amer 113 mL/min >60 [facility] Comment on above: Non- GFR Calc Platelets bldOrdered By: Dr. Spivey on 06-30-2022 Platelets (Bld) [#/Vol] 285 10*3/uL 150-450 [facility] Protein Test strip Ql (U)Ord ered By: Dr. Spivey on 06-30-2022 Protein Ql (U) 30 mg/dl Negative [facility] Serum or plasma albumin lesley urement (mass/volume)Ordered By: Dr. Spivey on 06-30-2022 Albumin [Mass/Vol] 3.7 g/dL 3.2-5.0 [facility] Serum or plasma albumin/glob ulin mass ratioOrdered By: Dr. Spivey on 06-30-2022 Albumin/Globulin [Mass ratio] 1.0 {ratio} 0.9-2.4 [facility] Serum or plasma calcium lesley urement (mass/volume)Ordered By: Dr. Spivey on 06-30-2022 Calcium [Mass/Vol] 9.0 mg/dL 8.5-10.1 [facility] Serum or plasma creatinine m easurement (mass/volume)Ordered By: Dr. Spivey on 06-30-2022 Creatinine [Mass/Vol] 0.68 mg/dL 0.55-1.02 [facility] Comment on above: The validity of the calculated GFR & GFRAA in patients over 70 years has not been determined. Clinical correlation is essential. Serum or plasma urea nitroge n measurement (mass/volume)Ordered By: Dr. Spivey on 06-30-2022 Urea nitrogen [Mass/Vol] 10 mg/dL 7-18 [facility] Squamous epithelial cells de tection in urine sediment by light microscopyOrdered By: Dr. Spivey on 06-30-2022 Epithelial cells.squamous LM Ql (Urine sed) 5-10 SEEN /hpf 5-10 [facility] Thin prep Papanicolaou smear with manual screeningOrdered By: Dr. Spivey on 06-30-2022 Thin prep Papanicolaou smear with manual screening 14 U/L 15-37 [facility] Thin prep Papanicolaou smear with manual screening 7 5-15 [facility] Urine blood detectionOrdered By: Dr. Spivey on 06-30-2022 RBC Ql (U) 25 /ul Negative [facility] RBC Ql (U) 0-5 SEEN /hpf 0-5 [facility] Urine clarityOrdered By: Dr. Spivey on 06-30-2022 Clarity (U) Sl. Cloudy Clear [facility] Urine color determinationOrd ered By: Dr. Spivey on 06-30-2022 Color (U) Yellow Yellow [facility] Urine glucose detectionOrder ed By: Dr. Spivey on 06-30-2022 Glucose Ql (U) Normal mg/dl Normal [facility] Urine leukocyte esterase det ection by dipstickOrdered By: Dr. Spivey on 06-30-2022 Leukocyte esterase Test strip Ql (U) Negative Negative [facility] Urine pHOrdered By: Dr. Ian alston on 06-30-2022 pH (U) 6.5 [pH] 5.0 - 8.0 [facility] Urine sediment bacteria coun t by microscopy (number/high power field)Ordered By: Dr. Spivey on 06-30-2022 Bacteria LM.HPF (Urine sed) [#/Area] 1 /[HPF] None Seen [facility] Urine specific gravity measu rementOrdered By: Dr. Spivey on 06-30-2022 Specific gravity (U) [Rel density] 1.015 1.002-1.030 [facility] Urobilinogen Auto test strip Ql (U)Ordered By: Dr. Spivey on 06-30-2022 Urobilinogen Ql (U) Normal mg/dl Normal [facility] XR WRIST INJURY 4V PA/LAT/OB L/SCAPH LEFTon 12-24-2021 [facility] XR Wrist - left 4 Viewson IMPRESSION: No acute osseous abnormality. Sausage Mixer: KIERAN Transcribe Date/Time: Dec 24 2021 2:35P Dictated by : MEGAN ALEJANDRA DO This examination was interpreted and the report reviewed and electronically signed by: MEGAN ALEJANDRA DO on Dec 24 2021 2:37PM [facility] DIVISION OF RADIOLOGY * * *Final Report* [...] significant significant abnormality. DIVISION OF RADIOLOGY Provider, [facility] - 12/24/2021 * * *Final Report* [...] abnormality. IMPRESSION IMPRESSION: No acute osseous abnormality. 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 pylori IgG IA Qlon 2021 H. pylori IgG, Qualitative Negative Negative [facility] ANES Esme 10-14-2017 ANES POST HNO ID: [id number] thor: Meg Smithice: AnesthesiologyAuthor Type: AnesthesiologistType: Anesthesia [...] 14, 2017 : 4:06 PM PAGER/CONTACT #: [phone] [facility] ANES PREOPon 10-14-2017 ANES PREOP HNO ID: [id number] thor: Meg Shookervice: AnesthesiologyAuthor Type: AnesthesiologistType: Anesthesia [...] anesthesia and no knownanesthesia problems in the [facility] Assessment: MP 1; Neck ROM: Full ROM [...] October 14, 2017 : 12:14 PM CSN: [id number] [facility] PT EDon 10-14-2017 PT ED HNO ID: [id number] thor: Massimo OquendoRn) ISIDORO Kellyervice: NursingAuthor Type: [...] Signed By: Massimo Kelly RN [facility]: [id number] thor: Pola Rasmussen) ISIDORO Blumervice: NursingAuthor Type: Registered NurseType: Patient EducationFiled: 10/14/2017 12:08 PMNote Text:PRE OP LEARNING ASSESSMENTPROCEDURE/SURGER Y: GI PROCEDURES: ColonoscopyREADINESS TO LEARNCOGNITIVE ABILITY: Alert and orientedMOTIVATION TO LEARN: EagerFAMILY SUPPORT: High - Very involved in pt carePATIENT LEARNS BEST BY: Individual InstructionVerbal InstructionFACTORS AFFECTING LEARNING: NonePHYSICAL LIMITATIONS AFFECTING LEARNING: NoneElectronically Signed By: Pola Blum RN In Department: [facility] SURGICAL PATHOLOGYon 018 SURGICAL PATHOLOGY ADDENDUM PRESENT Specimen originated from [facility] #: [id number] Physician: ABNER T. LAUREANO, MD FI NAL [...] - Colonic mucosa with no significantpathologic change.ES/lbk 10/16/20176012XERZKCX2. Given the presence of mild chronic inactive [...] stain that was performed on the gastric biopsy([id number], block B1) due to the presence of mild chronic inactivegastritis. The Helicobacter pylori immunohistochemical stain is negativefor Helicobacter pylori organisms. The final diagnosis remains unchanged.Laboratory Developed Test (LDT) Disclaimer:Positive and negative controls stain appropriately. Performancecharacteristics of immunohistochemical, immunofluorescent and chromogenicin-situ hybridization tests have been determined by [facility] [place] (-[facility]) monster manner consistent with CLIA requirements. [...] submitted in one cassette.Gross examination performed at [facility], [address] [place] [address] 10/14/2017 9:12:12 PMPatient ID #: [id number] of Report: 10/16/2017Date of Procedure: 10/14/2017Date of Receipt: 10/14/2017Submitted by: ABNER TINSLEY MDLocation: MEENDDiagnostic interpretation performed at [place] [address]. [facility] Comment on above: Performed By: #### P ATHS ####[facility] [address] [phone] NURSING PROGon 10-12-2017 NURSING PROG HNO ID: [id number] thor: Lyric Chao (Rn) Andrés, RNService: (none)Author [...] an injectionChart Check:Jeet [place] 2017 2:44 PM [facility] HOSPon 09-30-2017 HOSP Patient:Isabel Frank [facility] JMRN: Height:5' 3(1.6 m)Weight:218 lb (98.884 kg)Outpatient [...] 36.3 % 09/24/2017 46.0 36.0Progress Notes ([facility]):Nava Jama 10/02/2017 1:09 PM SignedNew [...] work justprior, notes should read as follows... CBC/SMEAR/TOP DYEING MACHINE LOADER/IRON DEF. ANEMIA/REF. CK*Once schedule please note and close encounterAshley Barnesethan PsrProgress Notes ([facility]):Radha Lassiterrobert Psr 10/02/2017 11:49 AM SignedPlease call patient to schedule. [phone] Psr [facility] 10/02/2017 1:03 PM SignedReferral sent to Dr. Booker to review. Normal [facility] Free T4on 05-17-2017 Thyroxine (T4) free 0.78 ng/dL Normal 0.58-1.64 [facility] Comment on above: Result Comment: Geraldine ents receiving more than 5mg/day of biotin may have interference in test results. A sample should be taken no sooner than eight hours after previous dose. Performed By: #### 2 [id number] ####ISABEL [address] [place] [address] TSHon 05-17-2017 Thyroid stimulating hormone (TSH) 0.41 mIU/m Normal 0.30-5.60 [facility] Comment on above: Performed By: #### 2 [id number] ####ISABEL [address] [place] [address] U BhCG Qlton 05-17-2017 HCG.beta subunit Qn Negative Normal Neg [facility] Comment on above: Performed By: #### 2 [id number] ####ISABEL Urinalysis Manual [address] [place] [address] UA Completeon 05-17-2017 UA Blood Negative Normal Negative [facility] Comment on above: Performed By: #### 8 [id number] ####ISABEL Urinalysis Automated [address] [place] [id number] UA Clarity Clear Normal Clear [facility] Comment on above: Performed By: #### 8 [id number] ####ISABEL Urinalysis Automated [address] [place] [address] UA Leuk Est Negative Normal Negative [facility] Comment on above: Performed By: #### 8 [id number] ####ISABEL Urinalysis Automated [address] [place] [address] UA Mucous Trace Abnormal Trace [facility] Comment on above: Performed By: #### 8 [id number] ####ISABEL Urinalysis Automated [address] [place] [address] UA Nitrite Negative Normal Negative [facility] Comment on above: Performed By: #### 8 [id number] ####ISABEL Urinalysis Automated [address] [place] [address] UA pH 6.0 Normal 4.6-8.0 [facility] Comment on above: Performed By: #### 8 [id number] ####ISABEL Urinalysis Automated [address] [place] [address] UA Protein Negative Normal Negative [facility] Comment on above: Performed By: #### 8 [id number] ####ISABEL Urinalysis Automated [address] [place] [address] UA Spec Grav 1.009 Normal 1.003-1.030 [facility] Comment on above: Performed By: #### 8 [id number] ####ISABEL Urinalysis Automated [address] [place] [address] UA Squam Epithelial 5-10 Abnormal 0-5 [facility] Comment on above: Performed By: #### 8 [id number] ####ISABEL Urinalysis Automated [address] [place] [address] UA Urobilinogen Negative Normal [facility] Comment on above: Performed By: #### 8 [id number] ####ISABEL Urinalysis Automated [address] [place] [address] UA WBC 0-5 Normal 0-5 [facility] Comment on above: Performed By: #### 8 [id number] ####ISABEL Urinalysis Automated [address] [place] [address] Urine, color Straw Normal Yellow [facility] Comment on above: Performed By: #### 8 [id number] ####ISABEL Urinalysis Automated [address] [place] [address] Urine, erythrocytes 0-3 Normal 0-3 [facility] [place] Comment on above: Performed By: #### [id number] ####ISABEL [facility]inal[facility] [employer] [id number] [place] [address] Urine, glucose Negative Normal Negative [facility] Comment on above: Performed By: #### [id number] ####ISABEL Urinalysis [facility]ated [id number] [place] [address] Urine, ketones presence Negative Normal Negative [facility] Comment on above: Performed By: #### [id number] ####ISABEL Urinalysis Automated [id number] [place] [address] Urine, urobilinogen Negative Normal Negative [facility] [place] Comment on above: Performed By: #### [id number] ####ISABEL Urinalysis Automated [id number] [place] [address] XR Abdomen Acute (PA Chest)o n 05-17-2017 [...] by: Franklin Martinez MD Technologist: HLR Normal [facility] Vital Signs Date Time Vital Sign Value Performing Clinician Facility 01-12-2025 11:140400 Body mass index (BMI) [Ratio] 46.6 kg/m2 Ximena Hartman MD Work Phone: [facility] 01-12-2025 11:14-0400 Body weight 122.29 kg Ximena Hartman MD Work Phone: [facility] 01-12-2025 11:14-0400 Diastolic blood pressure 84 mm[Hg] Ximena Hartman MD Work Phone: [facility] 01-12-2025 11:14-0400 Systolic blood pressure 108 mm[Hg] Ximena Hartman MD Work Phone: [facility] 12-28-2024 13:41-0400 Body mass index (BMI) [Ratio] 45.97 kg/m2 Emmanuel Hess MD Work Phone: [facility] 12-28-2024 13:41-0400 Body weight 120.66 kg Emmanuel Hess MD Work Phone: [facility] 12-28-2024 13:41-0400 Diastolic blood pressure 84 mm[Hg] Emmanuel Hess MD Work Phone: [facility] 12-28-2024 13:41-0400 Systolic blood pressure 128 mm[Hg] Emmanuel Hess MD Work Phone: [facility] 12-23-2024 18:08-0400 Heart rate 110 /min Dr. Genie Jackson MD Work Phone: [facility] 12-23-2024 18:08-0400 SaO2% (BldA) [Mass fraction] 97 % Dr. Genie Jackson MD Work Phone: [facility] 12-23-2024 17:59-0400 Diastolic blood pressure 69 mm[Hg] Dr. Genie Jackson MD Work Phone: [facility] 12-23-2024 17:59-0400 Systolic blood pressure 120 mm[Hg] Dr. Genie Jackson MD Work Phone: [facility] 12-23-2024 17:58-0400 Body temperature 98.2 [degF] Dr. Genie Jackson MD Work Phone: [facility] 12-23-2024 17:58-0400 Respiratory rate 14 /min Dr. Genie Jackson MD Work Phone: [facility] 12-23-2024 17:49-0400 Body height 160.[address] Genie Jackson MD Work Phone: [facility] 12-23-2024 17:49-0400 Body mass index (BMI) [Ratio] 47.5 kg/m2 Dr. Genie Jackson MD Work Phone: [facility] 12-23-2024 17:49-0400 Body weight 121.[address] Genie Jackson MD Work Phone: [facility] 11-29-2024 10:14-0400 Body mass index (BMI) [Ratio] 44.9 kg/m2 Elayne Humphreys RESTAURANT LEAD.SUPERVISOR ESTIMATOR AND DRAFTER Work Phone: [facility] 11-29-2024 10:14-0400 Body weight 117.84 kg Elayne Maycol RESTAURANT LEAD.SUPERVISOR ESTIMATOR AND DRAFTER Work Phone: [facility] 11-29-2024 10:14-0400 Diastolic blood pressure 74 mm[Hg] Elayne Maycol RESTAURANT LEAD.SUPERVISOR ESTIMATOR AND DRAFTER Work Phone: [facility] 11-29-2024 10:14-0400 Systolic blood pressure 126 mm[Hg] Elayne Maycol RESTAURANT LEAD.SUPERVISOR ESTIMATOR AND DRAFTER Work Phone: [facility] 11-19-2024 23:38-0400 Diastolic blood pressure 68 mm[Hg] Dr. Genie Jackson MD Work Phone: [facility] 11-19-2024 23:38-0400 Heart rate 94 /min Dr. Genie Jackson MD Work Phone: [facility] 11-19-2024 23:38-0400 Systolic blood pressure 117 mm[Hg] Dr. Genie Jackson MD Work Phone: [facility] 11-19-2024 23:00-0400 Body height 165.[address] Genie Jackson MD Work Phone: [facility] 11-19-2024 23:00-0400 Body mass index (BMI) [Ratio] 43.5 kg/m2 Dr. Genie Jackson MD Work Phone: [facility] 11-19-2024 23:00-0400 Body weight 118.[address] Genie Jackson MD Work Phone: [facility] 11-19-2024 22:38-0400 Body temperature 97.8 [degF] Dr. Genie Jackson MD Work Phone: [facility] 11-19-2024 22:38-0400 Respiratory rate 18 /min Dr. Genie Jackson MD Work Phone: [facility] 11-19-2024 22:38-0400 SaO2% (BldA) [Mass fraction] 92 % Dr. Genie Jackson MD Work Phone: [facility] 10-26-2024 11:12-0400 Body mass index (BMI) [Ratio] 44.07 kg/m2 Steffanie Lopez MD Work Phone: [facility] 10-26-2024 11:12-0400 Body weight 115.67 kg Steffanie Lopez MD Work Phone: [facility] 10-26-2024 11:12-0400 Diastolic blood pressure 82 mm[Hg] Steffanie Lopez MD Work Phone: [facility] 10-26-2024 11:12-0400 Systolic blood pressure 124 mm[Hg] Steffanie Lopez MD Work Phone: [facility] 09-29-2024 11:25-0400 Body mass index (BMI) [Ratio] 42.52 kg/m2 Emmanuel Hess MD Work Phone: [facility] 09-29-2024 11:25-0400 Body weight 111.58 kg Emmanuel Hess MD Work Phone: [facility] 09-29-2024 11:25-0400 Diastolic blood pressure 82 mm[Hg] Emmanuel Hess MD Work Phone: [facility] 09-29-2024 11:25-0400 Systolic blood pressure 110 mm[Hg] Emmanuel Hess MD Work Phone: [facility] 08-31-2024 11:48-0400 Body mass index (BMI) [Ratio] 40.27 kg/m2 Bhargavivivian Navas RESTAURANT LEAD.CNM Work Phone: [facility] 08-31-2024 11:48-0400 Body weight 105.69 kg Bhargavi Navas RESTAURANT LEAD.CNM Work Phone: [facility] 08-31-2024 11:48-0400 Diastolic blood pressure 70 mm[Hg] Bhargavi Navas RESTAURANT LEAD.CNM Work Phone: [facility] 08-31-2024 11:48-0400 Systolic blood pressure 112 mm[Hg] Bhargavi Navas RESTAURANT LEAD.CNM Work Phone: [facility] 08-01-2024 08:19-0400 Body mass index (BMI) [Ratio] 38.58 kg/m2 Elayne Maycol RESTAURANT LEAD.SUPERVISOR ESTIMATOR AND DRAFTER Work Phone: [facility] 08-01-2024 08:19-0400 Body weight 101.24 kg Elayne Maycol RESTAURANT LEAD.SUPERVISOR ESTIMATOR AND DRAFTER Work Phone: [facility] 08-01-2024 08:19-0400 Diastolic blood pressure 70 mm[Hg] Elayne Maycol RESTAURANT LEAD.SUPERVISOR ESTIMATOR AND DRAFTER Work Phone: [facility] 08-01-2024 08:19-0400 Systolic blood pressure 116 mm[Hg] Elayne Maycol RESTAURANT LEAD.SUPERVISOR ESTIMATOR AND DRAFTER Work Phone: [facility] 07-20-2024 13:05-0400 Body mass index (BMI) [Ratio] 37.82 kg/m2 Roxana Fry RESTAURANT LEAD.CNM Work Phone: [facility] 07-20-2024 13:05-0400 Body weight 99.25 kg Roxana Fry RESTAURANT LEAD.CNM Work Phone: [facility] 07-20-2024 13:05-0400 Diastolic blood pressure 64 mm[Hg] Roxana Plotts RESTAURANT LEAD.CNM Work Phone: [facility] 07-20-2024 13:05-0400 Systolic blood pressure 112 mm[Hg] Roxana Plotts RESTAURANT LEAD.CNM Work Phone: [facility] 05-13-2024 13:29-0500 Body mass index (BMI) [Ratio] 35.6 kg/m2 Terrell Cloud RESTAURANT LEAD.SUPERVISOR ESTIMATOR AND DRAFTER Work Phone: [facility] 05-13-2024 13:29-0500 Body temperature 99 [degF] Terrell Cloud RESTAURANT LEAD.SUPERVISOR ESTIMATOR AND DRAFTER Work Phone: [facility] 05-13-2024 13:29-0500 Body weight 93.44 kg Terrell Cloud RESTAURANT LEAD.SUPERVISOR ESTIMATOR AND DRAFTER Work Phone: [facility] 05-13-2024 13:29-0500 Diastolic blood pressure 78 mm[Hg] Terrell Cloud RESTAURANT LEAD.SUPERVISOR ESTIMATOR AND DRAFTER Work Phone: [facility] 05-13-2024 13:29-0500 Heart rate 72 /min Terrell Cloud RESTAURANT LEAD.SUPERVISOR ESTIMATOR AND DRAFTER Work Phone: [facility] 05-13-2024 13:29-0500 Respiratory rate 16 /min Terrell Cloud RESTAURANT LEAD.SUPERVISOR ESTIMATOR AND DRAFTER Work Phone: [facility] 05-13-2024 13:29-0500 SaO2% (BldA) [Mass fraction] 97 % Terrell Cloud RESTAURANT LEAD.SUPERVISOR ESTIMATOR AND DRAFTER Work Phone: [facility] 05-13-2024 13:29-0500 Systolic blood pressure 121 mm[Hg] Terrell Husam RESTAURANT LEAD.SUPERVISOR ESTIMATOR AND DRAFTER Work Phone: [facility] 05-13-2024 09:50-0500 Body mass index (BMI) [Ratio] 36.16 kg/m2 Elayne Severino RESTAURANT LEAD.SUPERVISOR ESTIMATOR AND DRAFTER Work Phone: [facility] 05-13-2024 09:50-0500 [facility] [employer].SUPERVISOR ESTIMATOR AND DRAFTER Work Phone: [facility] 05-13-2024 09:50-0500 Diastolic blood pressure 66 mm[Hg] Elayne Maycol RESTAURANT LEAD.SUPERVISOR ESTIMATOR AND DRAFTER Work Phone: [facility] 05-13-2024 09:50-0500 Systolic blood pressure 122 mm[Hg] [facility] Humphreys RESTAURANT LEAD.SUPERVISOR ESTIMATOR AND DRAFTER Work Phone: [facility] 04-14-2024 12:00-0500 Body mass index (BMI) [Ratio] 35.21 kg/m2 [facility] RESTAURANT LEAD.SUPERVISOR ESTIMATOR AND DRAFTER Work Phone: [facility] 04-14-2024 12:00-0500 Body temperature 98.01 [degF] [facility] RESTAURANT LEAD.SUPERVISOR ESTIMATOR AND DRAFTER Work Phone: [facility] 04-14-2024 12:00-0500 Body weight 92.4 kg [facility] RESTAURANT LEAD.SUPERVISOR ESTIMATOR AND DRAFTER Work Phone: [facility] 04-14-2024 12:00-0500 Diastolic blood pressure 82 mm[Hg] [facility] RESTAURANT LEAD.SUPERVISOR ESTIMATOR AND DRAFTER Work Phone: [facility] 04-14-2024 12:00-0500 Heart rate 103 /min [facility] RESTAURANT LEAD.SUPERVISOR ESTIMATOR AND DRAFTER Work Phone: [facility] 04-14-2024 12:00-0500 Respiratory rate 20 /min [facility] RESTAURANT LEAD.SUPERVISOR ESTIMATOR AND DRAFTER Work Phone: [facility] 04-14-2024 12:00-0500 SaO2% (BldA) [Mass fraction] 98 % [facility] RESTAURANT LEAD.SUPERVISOR ESTIMATOR AND DRAFTER Work Phone: [facility] 04-14-2024 12:00-0500 Systolic blood pressure 104 mm[Hg] [facility] RESTAURANT LEAD.SUPERVISOR ESTIMATOR AND DRAFTER Work Phone: [facility] 01-22-2024 09:25-0400 Body height 162 cm Ivelisse [facility] RESTAURANT LEAD.SUPERVISOR ESTIMATOR AND DRAFTER Work Phone: [facility] 01-22-2024 09:25-0400 Body mass index (BMI) [Ratio] 35.06 kg/m2 Ivelisse Tannhof RESTAURANT LEAD.SUPERVISOR ESTIMATOR AND DRAFTER Work Phone: [facility] 01-22-2024 09:25-0400 Body weight 92 kg Ivelisse Tannhof RESTAURANT LEAD.SUPERVISOR ESTIMATOR AND DRAFTER Work Phone: [facility] 01-22-2024 09:25-0400 Diastolic blood pressure 77 mm[Hg] Ivelisse Tannhof RESTAURANT LEAD.SUPERVISOR ESTIMATOR AND DRAFTER Work Phone: [facility] 01-22-2024 09:25-0400 Heart rate 58 /min Ivelisse Tannhof RESTAURANT LEAD.SUPERVISOR ESTIMATOR AND DRAFTER Work Phone: [facility] 01-22-2024 09:25-0400 Respiratory rate 16 /min Ivelisse Tannhof RESTAURANT LEAD.SUPERVISOR ESTIMATOR AND DRAFTER Work Phone: [facility] 01-22-2024 09:25-0400 SaO2% (BldA) [Mass fraction] 96 % Ivelisse Tannhof RESTAURANT LEAD.SUPERVISOR ESTIMATOR AND DRAFTER Work Phone: [facility] 01-22-2024 09:25-0400 Systolic blood pressure 110 mm[Hg] Ivelisse Tannhof RESTAURANT LEAD.SUPERVISOR ESTIMATOR AND DRAFTER Work Phone: [facility] 11-10-2023 15:35-0400 Body height 162.6 cm Elayne Maycol RESTAURANT LEAD.SUPERVISOR ESTIMATOR AND DRAFTER Work Phone: [facility] 11-10-2023 15:35-0400 Body mass index (BMI) [Ratio] 37.28 kg/m2 Elayne Maycol RESTAURANT LEAD.SUPERVISOR ESTIMATOR AND DRAFTER Work Phone: [facility] 11-10-2023 15:35-0400 Body weight 98.52 kg Elayne Humphreys RESTAURANT LEAD.SUPERVISOR ESTIMATOR AND DRAFTER Work Phone: [facility] 11-10-2023 15:35-0400 Diastolic blood pressure 60 mm[Hg] Elayne Maycol RESTAURANT LEAD.SUPERVISOR ESTIMATOR AND DRAFTER Work Phone: [facility] 11-10-2023 15:35-0400 Systolic blood pressure 98 mm[Hg] Elayne Humphreys RESTAURANT LEAD.SUPERVISOR ESTIMATOR AND DRAFTER Work Phone: [facility] 10-07-2023 11:32-0400 Body mass index (BMI) [Ratio] 39.01 kg/m2 Bhargavi Monique RESTAURANT LEAD.SUPERVISOR ESTIMATOR AND DRAFTER Work Phone: [facility] 10-07-2023 11:32-0400 Body temperature 98.6 [degF] Bhargavi Monique RESTAURANT LEAD.SUPERVISOR ESTIMATOR AND DRAFTER Work Phone: [facility] 10-07-2023 11:32-0400 Body weight 99.9 kg Bhargavi Monique RESTAURANT LEAD.SUPERVISOR ESTIMATOR AND DRAFTER Work Phone: [facility] 10-07-2023 11:32-0400 Diastolic blood pressure 80 mm[Hg] Bhargavi Monique RESTAURANT LEAD.SUPERVISOR ESTIMATOR AND DRAFTER Work Phone: [facility] 10-07-2023 11:32-0400 Heart rate 90 /min Bhargavi Monique RESTAURANT LEAD.SUPERVISOR ESTIMATOR AND DRAFTER Work Phone: [facility] 10-07-2023 11:32-0400 Respiratory rate 16 /min Bhargavi Monique RESTAURANT LEAD.SUPERVISOR ESTIMATOR AND DRAFTER Work Phone: [facility] 10-07-2023 11:32-0400 SaO2% (BldA) [Mass fraction] 99 % Bhargavi Monique RESTAURANT LEAD.SUPERVISOR ESTIMATOR AND DRAFTER Work Phone: [facility] 10-07-2023 11:32-0400 Systolic blood pressure 122 mm[Hg] Bhargavi Monique RESTAURANT LEAD.SUPERVISOR ESTIMATOR AND DRAFTER Work Phone: [facility] 07-06-2023 01:24-0500 Blood Pressure Location TERRELL AHMADI MD [facility] 07-06-2023 01:24-0500 Body height 160 cm TERRELL AHMADI MD [facility] 07-06-2023 01:24-0500 Body temperature 96.98 [degF] TERRELL AHMADI MD [facility] 07-06-2023 01:24-0500 Body weight 90.9 kg TERRELL AHMADI MD [facility] 07-06-2023 01:24-0500 Diastolic Blood Pressure Non-Invasive 86 mm[Hg] TERRELL AHMADI MD [facility] 07-06-2023 01:24-0500 Heart rate 88 /min TERRELL AHMADI MD [facility] 07-06-2023 01:24-0500 Respiratory rate 18 /min TERRELL AHMADI MD [facility] 07-06-2023 01:24-0500 Systolic Blood Pressure Non-Invasive 118 mm[Hg] TERRELL AHMADI MD [facility] 07-02-2023 11:11-0500 Diastolic blood pressure 80 mm[Hg] [facility] 07-02-2023 11:11-0500 Heart rate 96 /min [facility] 07-02-2023 11:11-0500 Respiratory rate 18 /min [facility] 07-02-2023 11:11-0500 SaO2% (BldA) [Mass fraction] 98 % [facility] 07-02-2023 11:11-0500 Systolic blood pressure 124 mm[Hg] [facility] 07-02-2023 08:44-0500 Body height 160.02 cm [facility] 07-02-2023 08:44-0500 Body mass index (BMI) [Ratio] 38.4 kg/m2 [facility] 07-02-2023 08:44-0500 Body temperature 98.3 [degF] [facility] 07-02-2023 08:44-0500 Body weight 98.4 kg [facility] 07-02-2023 08:24-0500 Body temperature 97.81 [degF] Bhargavi Monique APRN.CNP Work Phone: [facility] 07-02-2023 08:24-0500 Body weight 97.98 kg Bhargavi Monique RESTAURANT LEAD.SUPERVISOR ESTIMATOR AND DRAFTER Work Phone: [facility] 07-02-2023 08:24-0500 Diastolic blood pressure 70 mm[Hg] Bhargavi Monique RESTAURANT LEAD.SUPERVISOR ESTIMATOR AND DRAFTER Work Phone: [facility] 07-02-2023 08:24-0500 Heart rate 74 /min Bhargavi Monique RESTAURANT LEAD.SUPERVISOR ESTIMATOR AND DRAFTER Work Phone: [facility] 07-02-2023 08:24-0500 Respiratory rate 18 /min Bhargavi Moinque RESTAURANT LEAD.SUPERVISOR ESTIMATOR AND DRAFTER Work Phone: [facility] 07-02-2023 08:24-0500 SaO2% (BldA) [Mass fraction] 99 % Bhargavi Monique RESTAURANT LEAD.SUPERVISOR ESTIMATOR AND DRAFTER Work Phone: [facility] 07-02-2023 08:24-0500 Systolic blood pressure 105 mm[Hg] Bhargavi Monique RESTAURANT LEAD.SUPERVISOR ESTIMATOR AND DRAFTER Work Phone: [facility] 09-30-2022 12:20-0400 Body temperature 99.19 [degF] Ruth Athy PA-C Work Phone: [facility] 09-30-2022 12:20-0400 Body weight 103.33 kg Ruth Athy PA-C Work Phone: [facility] 09-30-2022 12:20-0400 Diastolic blood pressure 72 mm[Hg] Ruth Athy PA-C Work Phone: [facility] 09-30-2022 12:20-0400 Heart rate 107 /min Ruth Athy PA-C Work Phone: [facility] 09-30-2022 12:20-0400 Respiratory rate 16 /min Ruth Athy PA-C Work Phone: [facility] 09-30-2022 12:20-0400 SaO2% (BldA) [Mass fraction] 96 % Ruth Athy PA-C Work Phone: [facility] 09-30-2022 12:20-0400 Systolic blood pressure 104 mm[Hg] Ruth Vallejo PA-C Work Phone: [facility] 09-06-2022 15:49-0400 Body temperature 97.9 [degF] [facility] 09-06-2022 15:49-0400 Diastolic blood pressure 78 mm[Hg] [facility] 09-06-2022 15:49-0400 Heart rate 78 /min [facility] 09-06-2022 15:49-0400 Respiratory rate 16 /min [facility] 09-06-2022 15:49-0400 SaO2% (BldA) [Mass fraction] 99 % [facility] 09-06-2022 15:49-0400 Systolic blood pressure 134 mm[Hg] [facility] 09-06-2022 13:56-0400 Body height 160.02 cm [facility] 09-06-2022 13:56-0400 Body mass index (BMI) [Ratio] 40.7 kg/m2 [facility] 09-06-2022 13:56-0400 Body weight 104.28 kg [facility] 08-26-2022 13:05-0400 Body temperature 98.2 [degF] Terrell Husam RESTAURANT LEAD.SUPERVISOR ESTIMATOR AND DRAFTER Work Phone: [facility] 08-26-2022 13:05-0400 Body weight 105.23 kg Terrell Husam RESTAURANT LEAD.SUPERVISOR ESTIMATOR AND DRAFTER Work Phone: [facility] 08-26-2022 13:05-0400 Diastolic blood pressure 71 mm[Hg] Terrell Husam RESTAURANT LEAD.SUPERVISOR ESTIMATOR AND DRAFTER Work Phone: [facility] 08-26-2022 13:05-0400 Heart rate 100 /min Terrell Husam RESTAURANT LEAD.SUPERVISOR ESTIMATOR AND DRAFTER Work Phone: [facility] 08-26-2022 13:05-0400 Respiratory rate 16 /min Terrell Husam RESTAURANT LEAD.SUPERVISOR ESTIMATOR AND DRAFTER Work Phone: [facility] 08-26-2022 13:05-0400 SaO2% (BldA) [Mass fraction] 96 % Terrell Husam RESTAURANT LEAD.SUPERVISOR ESTIMATOR AND DRAFTER Work Phone: [facility] 08-26-2022 13:05-0400 Systolic blood pressure 108 mm[Hg] Terrell Cloud APRN.SUPERVISOR ESTIMATOR AND DRAFTER Work Phone: [facility] 08-22-2022 19:52-0400 Diastolic blood pressure 67 mm[Hg] Genie Jackson Other Phone: [facility] 08-22-2022 19:52-0400 Heart rate 88 /min Genie Jackson Other Phone: [facility] 08-22-2022 19:52-0400 Respiratory rate 18 /min Genie Jackson Other Phone: [facility] 08-22-2022 19:52-0400 SaO2% (BldA) [Mass fraction] 97 % Genie Jackson Other Phone: [facility] 08-22-2022 19:52-0400 Systolic blood pressure 140 mm[Hg] Genie Jackson Other Phone: [facility] 08-22-2022 16:04-0400 Body height 160 cm Genie Jackson Other Phone: [facility] 08-22-2022 16:04-0400 Body temperature 97.7 [degF] Genie Jackson Other Phone: [facility] 08-22-2022 16:04-0400 Body weight 104 kg Genie Jackson Other Phone: [facility] 06-30-2022 08:53-0500 Body height 160.02 cm [facility] 06-30-2022 08:53-0500 Body mass index (BMI) [Ratio] 42.6 kg/m2 [facility] 06-30-2022 08:53-0500 Body temperature 97.8 [degF] [facility] 06-30-2022 08:53-0500 Body weight 109.13 kg [facility] 06-30-2022 08:53-0500 Diastolic blood pressure 84 mm[Hg] [facility] 06-30-2022 08:53-0500 Heart rate 94 /min [facility] 06-30-2022 08:53-0500 Respiratory rate 18 /min [facility] 06-30-2022 08:53-0500 SaO2% (BldA) [Mass fraction] 97 % [facility] 06-30-2022 08:53-0500 Systolic blood pressure 136 mm[Hg] [facility] 03-02-2022 22:09-0400 Heart rate 113 /min [facility] 03-02-2022 22:09-0400 Respiratory rate 15 /min [facility] 03-02-2022 22:09-0400 SaO2% (BldA) [Mass fraction] 97 % [facility] 03-02-2022 21:14-0400 Body height 160.02 cm [facility] Work Phone: 03-02-2022 21:14-0400 Body mass index (BMI) [Ratio] 40.7 kg/m2 [facility] 03-02-2022 21:14-0400 Body temperature 97.3 [degF] [facility] 03-02-2022 21:14-0400 Body weight 104.32 kg [facility] 03-02-2022 21:14-0400 Diastolic blood pressure 104 mm[Hg] [facility] 03-02-2022 21:14-0400 Systolic blood pressure 134 mm[Hg] [facility] 02-12-2022 14:11-0400 Body temperature 98.91 [degF] Michelle Podlogar RESTAURANT LEAD.SUPERVISOR ESTIMATOR AND DRAFTER Work Phone: [facility] 02-12-2022 14:11-0400 Body weight 106.96 kg Michelle Podlogar RESTAURANT LEAD.SUPERVISOR ESTIMATOR AND DRAFTER Work Phone: [facility] 02-12-2022 14:11-0400 Diastolic blood pressure 86 mm[Hg] Michelle Podlogar RESTAURANT LEADAileenSUPERVISOR ESTIMATOR AND DRAFTER Work Phone: [facility] 02-12-2022 14:11-0400 Heart rate 106 /min Michelle Podlogar RESTAURANT LEAD.SUPERVISOR ESTIMATOR AND DRAFTER Work Phone: [facility] 02-12-2022 14:11-0400 Respiratory rate 18 /min Michelle Podlogar RESTAURANT LEAD.SUPERVISOR ESTIMATOR AND DRAFTER Work Phone: [facility] 02-12-2022 14:11-0400 SaO2% (BldA) [Mass fraction] 98 % Michelle Podlogar RESTAURANT LEAD.SUPERVISOR ESTIMATOR AND DRAFTER Work Phone: [facility] 02-12-2022 14:11-0400 Systolic blood pressure 122 mm[Hg] Michelle Podlogar RESTAURANT LEAD.SUPERVISOR ESTIMATOR AND DRAFTER Work Phone: [facility] 02-05-2022 12:12-0400 Body temperature 98.71 [degF] Ruth Athy PA-C Work Phone: [facility] 02-05-2022 12:12-0400 Body weight 108.77 kg Ruth Athy PA-C Work Phone: [facility] 02-05-2022 12:12-0400 Diastolic blood pressure 64 mm[Hg] Ruth Athy PA-C Work Phone: [facility] 02-05-2022 12:12-0400 Heart rate 126 /min Ruth Athy PA-C Work Phone: [facility] 02-05-2022 12:12-0400 Respiratory rate 18 /min Ruth Athy PA-C Work Phone: [facility] 02-05-2022 12:12-0400 SaO2% (BldA) [Mass fraction] 97 % Ruth Athy PA-C Work Phone: [facility] 02-05-2022 12:12-0400 Systolic blood pressure 104 mm[Hg] Ruth Athy PA-C Work Phone: [facility] 02-02-2022 10:04-0400 Body temperature 98.71 [degF] Ruth Athy PA-C Work Phone: [facility] 02-02-2022 10:04-0400 Body weight 108.68 kg Ruth Athy PA-C Work Phone: [facility] 02-02-2022 10:04-0400 Diastolic blood pressure 76 mm[Hg] Ruth Athy PA-C Work Phone: [facility] 02-02-2022 10:04-0400 Heart rate 99 /min Ruth Athy PA-C Work Phone: [facility] 02-02-2022 10:04-0400 Respiratory rate 20 /min Ruth Athy PA-C Work Phone: [facility] 02-02-2022 10:04-0400 SaO2% (BldA) [Mass fraction] 98 % Ruth Athy PA-C Work Phone: [facility] 02-02-2022 10:04-0400 Systolic blood pressure 126 mm[Hg] Ruth Athy PA-C Work Phone: [facility] 12-24-2021 14:16-0400 Body temperature 97.81 [degF] Ruth Athy PA-C Work Phone: [facility] 12-24-2021 14:16-0400 Body weight 107.59 kg Ruth Athy PA-C Work Phone: [facility] 12-24-2021 14:16-0400 Diastolic blood pressure 70 mm[Hg] Ruth Athy PA-C Work Phone: [facility] 12-24-2021 14:16-0400 Heart rate 107 /min Ruth Athy PA-C Work Phone: [facility] 12-24-2021 14:16-0400 Respiratory rate 18 /min Ruth Athy PA-C Work Phone: [facility] 12-24-2021 14:16-0400 SaO2% (BldA) [Mass fraction] 97 % Ruth Athy PA-C Work Phone: [facility] 12-24-2021 14:16-0400 Systolic blood pressure 114 mm[Hg] Ruth Athy PA-C Work Phone: [facility] 09-17-2021 13:46-0400 Body temperature 99.3 [degF] Terrell Husam RESTAURANT LEAD.SUPERVISOR ESTIMATOR AND DRAFTER Work Phone: [facility] 09-17-2021 13:46-0400 Body weight 107.05 kg Terrell Husam RESTAURANT LEAD.SUPERVISOR ESTIMATOR AND DRAFTER Work Phone: [facility] 09-17-2021 13:46-0400 Diastolic blood pressure 80 mm[Hg] Terrell Husam RESTAURANT LEAD.SUPERVISOR ESTIMATOR AND DRAFTER Work Phone: [facility] 09-17-2021 13:46-0400 Heart rate 88 /min Terrell Husam RESTAURANT LEAD.SUPERVISOR ESTIMATOR AND DRAFTER Work Phone: [facility] 09-17-2021 13:46-0400 Respiratory rate 16 /min Terrell Husam RESTAURANT LEAD.SUPERVISOR ESTIMATOR AND DRAFTER Work Phone: [facility] 09-17-2021 13:46-0400 Systolic blood pressure 112 mm[Hg] Terrell Husam RESTAURANT LEAD.SUPERVISOR ESTIMATOR AND DRAFTER Work Phone: [facility] Encounters Encounter Date Encounter Type Care Provider Facility Start: 02-14-2025 End: 02-14-2025 ambulatory GENIE Marie [facility] Facility:[facility] Start: 02-13-2025 End: 02-13-2025 ambulatory EMMANUEL HESS Facility:[facility] Start: 02-09-2025 End: 02-09-2025 ambulatory EMMANUEL HESS Facility:[facility] Start: 02-09-2025 End: 02-09-2025 ambulatory XIMENA HARTMAN Facility:[facility] Start: 02-07-2025 End: 02-07-2025 ambulatory GENIE Marie [facility] Facility:[facility] Start: 02-02-2025 End: 02-02-2025 ambulatory [facility] Facility:[facility] Start: 2025 End: 2025 ambulatory EMMANUEL HESS Facility:[facility] Start: 01-27-2025 End: 01-27-2025 ambulatory [facility] Facility:[facility] Start: 01-27-2025 End: 01-27-2025 ambulatory GENIE Marie [facility] Facility:[facility] Start: 01-24-2025 End: 01-24-2025 ambulatory EMMANUELLOIS HESS Facility:[facility] Start: 01-17-2025 End: 01-17-2025 ambulatory Ximena Hartman [...] Start: 01-12-2025 End: 01-12-2025 ambulatory GENIE Marie [facility] Facility:[facility] Start: 01-05-2025 End: 01-05-2025 Refill Andre Simpson APRN.[facility] Work Phone: [facility] Comment on above: Refill Request Start: 12-29-2024 End: 12-29-2024 Telephone encounter Steffanie Neely RN [facility] Comment on above: [employer]ant [employer] - O ther (PRAF) Results Start: 12-28-2024 End: 12-28-2024 Patient encounter procedure Polarity Tester Wstr Mob [facility] Work Phone: Maternal [...] Start: 12-28-2024 End: 12-28-2024 ambulatory ELAYNE SEVERINO Facility:[facility] Start: 12-23-2024 End: 12-23-[address] Genie Jackson MD Work Phone: [facility] Start: 12-23-2024 End: 12-23-2024 Patient encounter procedure Roxana Fry CNM -[facility] Work Phone: Start: 12-23-2024 End: 12-23-2024 Telephone encounter Roxana Fry RESTAURANT LEAD.CNM Work Phone: OB/Gynecology Start: 11-29-2024 End: 11-29-2024 Telemedicine consultation with patient Andre Simpson RESTAURANT LEAD.SUPERVISOR ESTIMATOR AND DRAFTER Work Phone: [facility] [place] Start: 11-29-2024 End: 11-29-2024 ambulatory Andre Masha RESTAURANT LEAD.SUPERVISOR ESTIMATOR AND DRAFTER Work Phone: [facility] [place] Comment on above: Anxiety with depress ion Start: 11-29-2024 End: 11-29-2024 Patient encounter procedure Elayne Severino APRN.SUPERVISOR ESTIMATOR AND DRAFTER Work Phone: OB/Gynecology Comment on above: Supervision of other high risk pregnancies, second trimester (HCC) (Primary Dx); 25 weeks gestation of (HCC); Screening for diabetes mellitus; Hx of preeclampsia, prior , currently (HCC); Hypothyroidism, unspecified type; Obesity in (HCC) Start: 11-29-2024 End: 11-29-2024 ambulatory ELAYNEMEE ÁLVAREZMAYCOL Facility:[facility] Start: 11-19-2024 End: 11-20-[address] Genie [...] RN [facility] Comment on above: [employer] - [employer] (PRAF) Start: 10-26-2024 End: [...] 10-26-2024 Patient encounter procedure Whi Tech 1 Polarity Tester Mfm [facility] Maternal Medicine Comment on above: Obesity in (HCC) (Primary Dx); 8 weeks gestation of (HCC) Start: 10-26-2024 End: 10-26-2024 ambulatory [facility] Facility:[facility] Start: 10-25-2024 End: 10-25-2024 ambulatory [facility] Facility:[facility] Start: 10-11-2024 End: 11-30-2024 Refill Bhargavi Navas APRN.CNM Work Phone: OB/Gynecology Comment on above: Refill Request Start: 10-05-2024 End: 10-05-2024 Patient encounter procedure Whi Tech 4 Polarity Tester Mfm [facility]aternal [facility] Comment on above: Encounter for antena heidy screening for malformation (HCC) (Primary Dx); Supervision of other high risk pregnancies, second trimester (HCC); Hx of preeclampsia, prior , currently (HCC); Obesity in (HCC); Hypothyroidism, unspecified type Start: 10-05-2024 End: 10-05-2024 ambulatory EMMANUEL HESS Facility:[facility] Start: 09-30-2024 End: 11-30-2024 Follow-up encounter Elayne [...] disease) Start: 09-29-2024 End: 09-29-2024 [facility] Start: 09-27-2024 End: 11-27-2024 Follow-up encounter Bhargavi Navas APRN.CNM Work Phone: OB/Gynecology Start: 09-23-2024 End: 09-23-2024 ambulatory GENIE JACKSON Facility:[facility] Start: 09-08-2024 End: 09-08-2024 [facility] Genie Jackson MD Work Phone: [facility] [place] Comment on above: RUDOLPH (generalized anx iety disorder); Panic attack Start: 09-07-2024 End: 09-08-2024 Refill Genie Jackson MD Work Phone: [facility] [place] Comment on above: Refill Request Start: 08-31-2024 End: 08-31-2024 Patient encounter procedure i Tech 1 Polarity Tester Mfm [facility] Maternal Medicine Comment on [...] depression; Trichomoniasis Start: 08-31-2024 End: 08-31-2024 ambulatory [facility] Facility:[facility] Start: 08-29-2024 End: 08-29-2024 ambulatory 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 (PRAF) Patient Question Start: 08-01-2024 End: 10-01-2024 Follow-up encounter Elayne Severino RESTAURANT LEAD.SUPERVISOR ESTIMATOR AND DRAFTER Work Phone: OB/Gynecology Start: 08-01-2024 End: 08-01-2024 [facility] Facility:[facility] Start: 08-01-2024 End: 08-01-2024 Patient encounter procedure Elayne Severino RESTAURANT LEAD.SUPERVISOR ESTIMATOR AND DRAFTER Work Phone: OB/Gynecology Comment on above: Encounter for superv ision of normal intrauterine in multigravida, antepartum (Primary Dx); with uncertain dates, antepartum; History of hemorrhage; Screen for STD (sexually transmitted disease); 8 weeks gestation of ; Hx of preeclampsia, prior , currently ; Hypothyroidism, unspecified type; BMI 38.0-38.9,adult Start: 07-25-2024 End: 08-02-2024 Telephone encounter Elayne Severino RESTAURANT LEAD.SUPERVISOR ESTIMATOR AND DRAFTER Work Phone: OB/Gynecology Comment on above: Future Appointment Start: 07-22-2024 End: 07-22-2024 Telephone encounter Genie Jackson MD Work Phone: [facility] [place] Comment on above: Medication Problem Start: 07-20-2024 End: 07-20-2024 ambulatory GENIE JACKSON Facility:[facility] Start: 07-20-2024 End: 07-20-2024 Patient encounter procedure Roxanalacy Fry APRN.CNM Work Phone: OB/Gynecology Comment on above: Missed menses (Prima ry Dx); Nausea and vomiting during ; 6 weeks gestation of Start: 06-20-2024 End: 06-20-2024 Telephone encounter Ivelisse Ng APRN.CNP Work Phone: [facility] [place] Comment on above: patient medication q uestion Start: 06-15-2024 End: 06-15-2024 ambulatory Ivelisse Ng APRN.CNP Work Phone: [facility] [place] Comment on above: Anxiety with depress ion (Primary Dx) Start: 06-15-2024 End: 06-15-2024 Telemedicine consultation with patient Ivelisse Ng APRN.CNP Work Phone: [facility] [place] Start: 05-13-2024 End: 05-13-2024 Office outpatient visit 25 minutes Terrell Cloud APRN.CIERRA Work Phone: [facility] [place] Comment on above: Tension headache (Pr imary Dx) Start: 05-13-2024 End: 05-13-2024 ambulatory TERRELL CLOUD Facility:[facility] Start: 05-13-2024 End: 05-13-2024 Patient encounter procedure Elayne Severino APRN.CIERRA Work Phone: OB/Gynecology Comment on above: Encounter for precon ception consultation (Primary Dx) Start: 04-14-2024 End: 04-14-2024 ambulatory GENIE JACKSON Facility:[facility] Start: 04-14-2024 End: 04-14-2024 Office outpatient visit 15 minutes Kenneth Mckeon APRN.CNP Work Phone: [facility] Comment on above: Sore throat (Primary Dx); Viral illness Start: 03-22-2024 End: 03-22-2024 Refill Genie Jackson MD Work Phone: [facility] [place] Comment on above: Refill Request Start: 02-19-2024 End: 02-19-2024 Refill Ivelisse Ng APRN.CNP Work Phone: [facility] Comment on above: Refill Request Start: 01-22-2024 End: 01-22-2024 Patient encounter procedure Ivelisse Ng RESTAURANT LEAD.SUPERVISOR ESTIMATOR AND DRAFTER Work Phone: [facility] Comment on above: Wellness examination (Primary Dx); Anxiety with depression; Chronic constipation; Hypothyroidism, unspecified type; Gastroesophageal reflux disease, unspecified whether esophagitis present; Encounter for contraceptive management, unspecified type; Screening for depression; Encounter for screening examination for other mental health and behavioral disorders Start: 01-20-2024 End: 01-20-2024 Refill Ivelisse Ng RESTAURANT LEAD.SUPERVISOR ESTIMATOR AND DRAFTER Work Phone: [facility] Comment on above: Refill Request Start: 01-18-2024 End: 01-21-2024 Refill Ivelisse Ng RESTAURANT LEAD.SUPERVISOR ESTIMATOR AND DRAFTER Work Phone: [facility] Comment on above: Refill Request Start: 01-14-2024 End: 01-15-2024 Telephone encounter Elayne Severino APRN.SUPERVISOR ESTIMATOR AND DRAFTER Work Phone: OB/Gynecology Comment on above: Appointment Start: 12-19-2023 End: 12-21-2023 Refill Ivelisse Ng RESTAURANT LEAD.SUPERVISOR ESTIMATOR AND DRAFTER Work Phone: [facility] Comment on above: Refill Request Start: 12-17-2023 Refill Ivelisse Ng APRN.SUPERVISOR ESTIMATOR AND DRAFTER Work Phone: [facility] Comment on above: Refill Request Start: 11-24-2023 End: 11-24-2023 ambulatory Elaynemee Severino RESTAURANT LEAD.SUPERVISOR ESTIMATOR AND DRAFTER Work Phone: OB/Gynecology Comment on above: Adenomyosis (Primary Dx) Start: 11-24-2023 End: 11-24-2023 Telemedicine consultation with patient Elayne Severino RESTAURANT LEAD.SUPERVISOR ESTIMATOR AND DRAFTER Work Phone: OB/Gynecology Start: 11-20-2023 Telephone encounter Elayne hurtado RESTAURANT LEAD.CIERRA Work Phone: OB/Gynecology Comment on above: Results (Pelvic US) Start: 11-19-2023 End: 11-19-2023 ambulatory Whi Mob OB/Gynecology Start: 11-19-2023 End: 11-19-2023 Patient encounter procedure i Tech 1 Polarity Tester Wstr Mob OB/Gynecology Start: 11-15-2023 Refill Terrell Husam RESTAURANT LEAD.SUPERVISOR ESTIMATOR AND DRAFTER Work Phone: [facility] [place] Comment on above: Refill Request Start: 11-12-2023 Refill Genie hernandez MD Work Phone: [facility] [place] Comment on above: Refill Request lab results Start: 11-10-2023 End: 11-10-2023 Patient encounter procedure Elayne Severino RESTAURANT LEAD.SUPERVISOR ESTIMATOR AND DRAFTER Work Phone: OB/Gynecology Comment on above: Encounter for gyneco logical examination (general) (routine) without abnormal findings (Primary Dx); Screening for cervical cancer; Encounter for screening for human papillomavirus (HPV) Start: 11-10-2023 End: 11-10-2023 Patient encounter status Elaynemee Severino APRN.SUPERVISOR ESTIMATOR AND DRAFTER Work Phone: [facility] Start: 11-04-2023 End: 11-04-2023 ambulatory Rohan Yoon MD Work Phone: Gynecology Comment on above: Irregular menses (Pr imary Dx); Acquired hypothyroidism; Class II obesity; Menorrhagia with irregular cycle; Dysmenorrhea Start: 11-04-2023 End: 11-04-2023 Telemedicine consultation with patient Rohan Yoon MD Work Phone: Gynecology Start: 10-07-2023 End: 10-07-2023 Patient encounter procedure Bhargavi Monique RESTAURANT LEAD.SUPERVISOR ESTIMATOR AND DRAFTER Work Phone: [facility] Comment on above: Nipple pain (Primary Dx); Ear pain, bilateral Start: 07-23-2023 Refill Terrell Husam RESTAURANT LEAD.SUPERVISOR ESTIMATOR AND DRAFTER Work Phone: [facility] [place] Comment on above: Refill Request Start: 07-23-2023 Refill Terrell Husam RESTAURANT LEAD.SUPERVISOR ESTIMATOR AND DRAFTER Work Phone: [facility] [place] Comment on above: Refill Request Start: 07-06-2023 End: 07-06-2023 Emergency department patient visit TERRELL AHMADI MD Facility:[facility] Start: 07-06-2023 End: 07-06-2023 Emergency department patient visit TERRELL AHMADI MD [facility] Start: 07-02-2023 End: 07-02-2023 Emergency department patient visit [facility] Work Phone: Start: 07-02-2023 End: 07-02-2023 Patient encounter procedure Bhargavi Monique RESTAURANT LEAD.SUPERVISOR ESTIMATOR AND DRAFTER Work Phone: [facility] Comment on above: Visual disturbance ( Primary Dx); Dizziness; Headache, unspecified headache type Start: 06-18-2023 Telephone encounter Ivelisse Nader stevens RESTAURANT LEAD.SUPERVISOR ESTIMATOR AND DRAFTER Work Phone: [facility] [place] Comment on above: Results (Labs ) Start: 06-17-2023 Telephone encounter Genie greer MD Work Phone: [facility] [place] Comment on above: Orders; Irregular Me nstrual Cycle Start: 06-16-2023 Telephone encounter [facility] Comment on above: Patient Request Start: 06-12-2023 Telephone encounter Genie greer MD Work Phone: [facility] [place] Comment on above: Patient Question Start: 04-02-2023 Refill Terrell Cloud RESTAURANT LEAD.SUPERVISOR ESTIMATOR AND DRAFTER Work Phone: [facility] [place] Comment on above: Refill Request Start: 03-26-2023 Refill Genie hernandez MD Work Phone: [facility] [place] Comment on above: Refill Request Start: 01-03-2023 Refill Terrell Husam RESTAURANT LEAD.SUPERVISOR ESTIMATOR AND DRAFTER Work Phone: [facility] [place] Comment on above: Refill Request; Refi ll Request Start: 10-12-2022 End: 10-12-2022 Emergency department patient visit Onofre Everett [facility] Emergency Start: 10-01-2022 Telephone encounter Genie greer MD Work Phone: [facility] Comment on above: Patient Question Start: 09-30-2022 End: 09-30-2022 Patient encounter procedure Ruth Vallejo PA-C Work Phone: [facility] Comment on above: Acute UTI (Primary D x) Start: 09-06-2022 End: 09-06-2022 [facility] Start: 09-06-2022 End: 09-06-2022 Patient encounter procedure Marjorie Sanchez APRN.SUPERVISOR ESTIMATOR AND DRAFTER Work Phone: [facility] Comment on above: Confusion (Primary D x) Start: 08-26-2022 End: 08-26-2022 Office outpatient visit 25 minutes Terrell Cloud APRN.SUPERVISOR ESTIMATOR AND DRAFTER Work Phone: [facility] Comment on above: Hypokalemia (Primary Dx); Nausea and vomiting, unspecified vomiting type; Hospital discharge follow-up; Paresthesia; Hand pain, left Start: 08-22-2022 End: 08-22-2022 Emergency department patient visit Trixie Beard [facility] Emergency 14 Start: 07-29-2022 Refill Jolly Aguilar PA-C Work Phone: Gastroenterology Comment on above: Refill Request Start: 07-23-2022 Refill Terrell Cloud APRN.SUPERVISOR ESTIMATOR AND DRAFTER Work Phone: [facility] Comment on above: Refill Request Start: 07-23-2022 Refill Terrell Cloud APRN.SUPERVISOR ESTIMATOR AND DRAFTER Work Phone: [facility] Comment on above: Refill Request Start: 06-30-2022 End: 06-30-2022 [facility] Start: 05-08-2022 Refill Cori Ramesh APR N.SUPERVISOR ESTIMATOR AND DRAFTER Work Phone: Gastroenterology Comment on above: Refill Request Start: 03-07-2022 End: 03-07-2022 [facility] Genie Jackson MD Work Phone: [facility] Comment on above: Recurrent major depr essive disorder, remission status unspecified (HCC) Start: 03-02-2022 End: 03-02-2022 Emergency department patient visit [facility] Start: 02-15-2022 Refill Cori Ramesh APR N.SUPERVISOR ESTIMATOR AND DRAFTER Work Phone: Gastroenterology Comment on above: Refill Request Start: 02-12-2022 End: 02-12-2022 Patient encounter procedure Michelle Hayes APRN.SUPERVISOR ESTIMATOR AND DRAFTER Work Phone: [facility] Comment on above: Frontal sinus pain ( Primary Dx); Left ear pain Start: 02-05-2022 End: 02-05-2022 Patient encounter procedure Ruth Reyes [employer] PA-C Work Phone: [facility] Comment on above: Acute otitis media, left (Primary Dx) Start: 02-02-2022 End: 02-02-2022 Patient encounter procedure Ruth Reyes [employer] PA-C Work Phone: [facility] Comment on above: Viral URI with cough (Primary Dx); Bacterial conjunctivitis Start: 12-24-2021 End: 12-24-2021 Subsequent hospital visit by physician Xr [facility] Work Phone: Radiology Comment on above: Left wrist pain [M25 .532] Start: 12-24-2021 End: 12-24-2021 Patient encounter procedure Ruth Reyes [place]y PA-C Work Phone: [facility] Comment on above: Left wrist pain (Merlene azucena Dx) Start: 12-17-2021 Refill Cori Ramesh APR N.SUPERVISOR ESTIMATOR AND DRAFTER Work Phone: Gastroenterology Comment on above: Refill Request Start: 12-16-2021 Refill Cori Ramesh APR N.SUPERVISOR ESTIMATOR AND DRAFTER Work Phone: Gastroenterology Comment on above: Refill Request Start: 12-04-2021 Telephone encounter Genie greer MD Work Phone: [facility] Comment on above: Medication Question Start: 11-26-2021 End: 11-26-2021 Distance [facility] Genie Jackson MD Work Phone: [facility] [place] Comment on above: Recurrent major depr essive disorder, remission status unspecified (HCC) (Primary Dx) Refill Request Start: 09-25-2021 End: 09-25-2021 Telemedicine consultation with patient Cori Ramesh SUPERVISOR ESTIMATOR AND DRAFTER Work Phone: [facility] Start: 09-25-2021 End: 09-25-2021 ambulatory Terrell Cloud APRN.SUPERVISOR ESTIMATOR AND DRAFTER Work Phone: [facility] [place] Comment on above: Question Burping (Primary Dx) ; Gastroesophageal reflux disease, unspecified whether esophagitis present; Early satiety; GERD without esophagitis Start: 09-19-2021 Telephone encounter Genie greer MD Work Phone: [facility] [place] Comment on above: Referral Request Start: 09-17-2021 End: 09-17-2021 Patient encounter procedure Terrell Cloud APRN.SUPERVISOR ESTIMATOR AND DRAFTER Work Phone: [facility] [place] Comment on above: Tonsil stone (Primar y Dx); Hypothyroidism, unspecified type Start: 08-23-2021 ambulatory Genie hernandez MD Work Phone: [facility] [place] Comment on above: Trying a medication again Start: 08-09-2021 Refill Genie hernandez MD Work Phone: [facility] [place] Comment on above: Refill Request Start: 10-14-2017 End: 10-14-2017 Ambulatory [facility] Start: 05-17-2017 End: 05-17-2017 Emergency department patient visit [facility] Facility:[facility] Start: 07-23-2016 End: 10-12-2017 Physical examination Bhargavi Monique APRN.SUPERVISOR ESTIMATOR AND DRAFTER Work Phone: [facility] Procedures Date Procedure Procedure Detail Performing [...] after 1st trimest 1/1st gestation Elayne Maycol RESTAURANT LEAD.SUPERVISOR ESTIMATOR AND DRAFTER Work Phone: Start: 10-05-2024 Us preg uterus after 1st trimest 1/ gestation Emmanuel Hess MD Work Phone: Start: 08-31-2024 Us preg uterus after 1st trimest 1/1st gestation Elayne Humphreys RESTAURANT LEAD.SUPERVISOR ESTIMATOR AND DRAFTER Work Phone: Start: 08-29-2024 Antibody screen ELAYNE HILLMAN Comment on above: Order Comment: Speci men Type: BLOOD SPECIMENOrdering Facility: [facility] Address: [address] [place] [address] Performed By: #### T SPN ####CC [facility] BLOOD BANKCLIA [id number] [address] [place] Start: 08-01-2024 Us uterus l imited 1/> fetuses Elayne Humphreys RESTAURANT LEAD.SUPERVISOR ESTIMATOR AND DRAFTER Work Phone: Start: 07-20-2024 UA DIP,URINE HCG (POC) Roxana Fry RESTAURANT LEAD.CNM Work Phone: Start: 04-14-2024 STREP A MOLECULAR (POC) Bhargavi Monique RESTAURANT LEAD.SUPERVISOR ESTIMATOR AND DRAFTER Work Phone: Start: 01-22-2024 Adult depression scr eening assessment Ivelisse Ng RESTAURANT LEAD.SUPERVISOR ESTIMATOR AND DRAFTER Work Phone: Start: 11-19-2023 Us pelvic nonobstetr [...] DTaP,Tdap,Td Vaccine (8 - Td or Tdap) [facility] Start: 11-09-2026 Screening for malignant neoplasm of cervix Cervical Cancer Screening [facility] Start: 11-29-2025 Annual PCP Team Chronic Disease Visit Annual PCP Team Chronic Disease Visit [facility] Start: 09-08-2025 Annual PCP Team Chronic Disease Visit Annual PCP Team Chronic Disease Visit [facility] Start: 08-04-2025 Annual PCP Team Chronic Disease Visit Annual PCP Team Chronic Disease Visit [facility] Start: 06-15-2025 Annual PCP Team Chronic Disease Visit Annual PCP Team Chronic Disease Visit [facility] Start: 05-13-2025 Annual PCP Team Chronic Disease Visit Annual PCP Team Chronic Disease Visit [facility] Start: 02-20-2025 End: 02-20-2025 Patient encounter procedure 02/20/2025 10:00 AM EDT Office Visit Endocrinology [address] [place] [place] [id number] Mana Oseguera MD [address] [place] [id number] Hypothyroidism, unspecified type [E03.9] Endocrinology Comment on above: Hypothyroidism, unsp ecified type [E03.9] Start: 02-07-2025 End: 02-07-2025 Patient encounter procedure 02/07/2025 11:20 AM EDT Routine Office Visit OB/Gynecology [address] [place] [address] Dhara Sanchez MD [address] [place] [address] OB OB/Gynecology Comment on above: OB Start: 01-29-2025 End: 04-30-2025 CBC W Auto Differential panel - Blood COMPLETE BLOOD COUNT AND DIFFERENTIAL Lab Routine Anemia complicating , third trimester (HCC) Expected: 01/29/2025, Expires: 04/30/2025 [facility] Work Phone: Comment on above: Expected: 01/29/2025 , Expires: 04/30/2025 Start: 01-24-2025 End: 01-24-2025 Patient encounter procedure Endocrinology Comment on above: Hypothyroidism, unsp ecified type [E03.9] Supervision of other high risk pregnancies, second trimester (HCC) [O09.892] OB Start: 01-21-2025 Annual PCP Team Chronic Disease Visit Annual PCP Team Chronic Disease Visit [facility] Start: 01-21-2025 Anxiety Screening Anxiety Screening [facility] Start: 01-21-2025 Depression Screening Depression Scre ening [facility] Start: 01-19-2025 End: 01-19-2025 Patient encounter procedure 01/19/2025 11:00 AM EDT Routine Office Visit OB/Gynecology [address] [place] [address] NON-STRESS TEST ONLY OB/Gynecology Comment on above: NON-STRESS HAI T ONLY Start: 01-14-2025 RSV Vaccine (1 - Ris k 1-dose series) RSV Vaccine (1 - Risk 1-dose series) [facility] Start: 01-12-2025 End: 01-12-2025 Patient encounter procedure 01/12/2025 11:10 AM EDT Routine Office Visit OB/Gynecology [address] [place], [place] [address] Ximena Hartman MD [address] [place] [address] OB OB/Gynecology Comment on above: OB Start: 01-02-2025 Influenza vaccination C [facility] Start: 12-28-2024 End: 03-29-2025 Thyrotropin [Units/volume] in Serum or Plasma [facility] Work Phone: Comment on above: Expected: 12/28/2024 , Expires: 03/29/2025 Start: 12-28-2024 End: 12-28-2024 Patient encounter procedure Maternal Medicine Comment on above: 28 weeks US US/OB Start: 12-26-2024 End: 12-26-2024 Patient encounter procedure Endocrinology Comment on above: Supervision of other high risk pregnancies, second trimester (HCC) [O09.892] Hypothyroidism, unsp ecified type [E03.9] Start: 12-23-2024 [facility] Start: 12-23-2024 Nonstress test [facility] Start: 12-23-2024 Obstetric monitoring [facility] Start: 12-23-2024 Vital signs measurements [facility] Start: 12-23-2024 [facility] Start: 12-23-2024 Bacteria identified in Urine by Culture Urine Culture [facility] Start: 12-02-2024 End: 12-02-2024 ambulatory [facility] Start: 11-29-2024 End: 02-28-2025 ANEMIA REFLEX PANEL ANEMIA REFLEX PANEL Lab Routine Expected: 11/29/2024, Expires: 02/28/2025 [facility] Comment on above: Expected: 11/29/2024 , Expires: 02/28/2025 Start: 11-29-2024 End: 11-29-2025 GESTATIONAL GLUCOSE SCREEN, 1-HOUR, 50 GRAM, NON-FASTING GESTATIONAL GLUCOSE SCREEN, 1-HOUR, 50 GRAM, NON-FASTING Lab Routine Screening for diabetes mellitus Expected: 11/29/2024, Expires: 11/29/2025 [facility] Work Phone: Comment on above: Expected: 11/29/2024 , Expires: 11/29/2025 Start: 11-29-2024 End: 11-29-2025 SYPHILIS TREPONEMAL W/REFLEX SYPHILIS TREPONEMAL W/REFLEX Lab Routine Expected: 11/29/2024, Expires: 11/29/2025 [facility] Comment on above: Expected: 11/29/2024 , Expires: 11/29/2025 Start: 11-29-2024 End: 11-29-2024 Patient encounter procedure 11/29/2024 10:15 AM EDT Routine Office Visit OB/Gynecology [address] [place] [address] Elayne Severino APRN.SUPERVISOR ESTIMATOR AND DRAFTER [address] [place] [address] OB-Needs to schedule 28 week ultrasound - moved from [facility] per RR OB/Gynecology Comment on above: OB-Needs to schedule 28 week ultrasound - moved from JG per RR Start: 11-29-2024 End: 11-29-2024 ambulatory 11/29/2024 8:20 AM EDT [facility] Medicine Jennifer [address] [place] [address] Olive Rendon RESTAURANT LEAD.SUPERVISOR ESTIMATOR AND DRAFTER [address] [place] [address] discuss increasing depression medication (40min per CH) [facility] [place] Comment on above: discuss increasing d epression medication (40min per CH) Start: 11-23-2024 End: 11-23-2024 Patient encounter procedure 11/23/2024 10:40 AM EDT Routine Office Visit OB/Gynecology [address] [place] [address] Joyce Restrepo MD [address] [place] [address] OB-Needs to schedule 28 week ultrasound OB/Gynecology Comment on above: OB-Needs to schedule 28 week ultrasound Start: 11-22-2024 End: 11-22-2024 Patient encounter procedure 11/22/2024 8:00 AM EDT Office Visit Endocrinology [address] [place] [address] Mana Oseguera MD [address] [place] [address] Supervision of other high risk pregnancies, second trimester (HCC) [O09.892] Endocrinology Comment on above: Supervision of other high risk pregnancies, second trimester (HCC) [O09.892] Start: 11-20-2024 Patient discharge [facility] Start: 11-19-2024 Nonstress test [facility] Start: 11-19-2024 Obstetric monitoring [facility] Start: 11-19-2024 Vital signs measurements [facility] Start: 11-19-2024 [facility] Start: 10-26-2024 End: 10-26-2024 Patient encounter procedure Maternal Medicine Comment on above: Anatomy Scan OB Routine Start: 10-05-2024 End: 10-05-2024 Patient encounter procedure 10/05/2024 11:00 AM EDT Routine Office Visit Maternal Medicine [facility] [address] [place] [address] growth Maternal Medicine [facility] Comment on above: growth Start: 09-29-2024 End: 09-29-2024 Patient encounter procedure 09/29/2024 11:10 AM EDT Routine Office Visit OB/Gynecology [address] [place] [address] Emmanuel Hess MD [address] [place] [address] OB Routine OB/Gynecology Comment on above: OB Routine Start: 08-31-2024 End: 08-31-2024 Patient encounter procedure Maternal Medicine Comment on above: Nuchal OB Start: 08-08-2024 End: 08-08-2024 ambulatory 08/08/2024 1:00 PM EDT Results Only [facility] [address] [place] [address] [facility] Start: 08-04-2024 End: 08-04-2024 ambulatory 08/04/2024 11:20 AM EDT [facility] [address] [place] [address] Genie Jackson MD [address] [place] [address] Lowering my buspar Family [facility] [place] Comment on above: Lowering my buspar Start: 08-03-2024 End: 08-03-2024 ambulatory 08/03/2024 1:00 PM EDT Results Only Jennifer [facility] Draw Station [address] [place] [address] Jennifer [facility] Draw Station Start: 08-01-2024 End: 10-31-2024 ANEMIA REFLEX PANEL ANEMIA REFLEX PANEL Lab Routine History of hemorrhage 8 weeks gestation of Expected: 08/01/2024, Expires: 10/31/2024 [facility] Work Phone: Comment on above: Expected: 08/01/2024 , Expires: 10/31/2024 Start: 08-01-2024 End: 10-31-2024 Comprehensive metabolic 2000 panel - Serum or Plasma COMPREHENSIVE METABOLIC PANEL Lab Routine 8 weeks gestation of Hx of preeclampsia, prior , currently Expected: 08/01/2024, Expires: 10/31/2024 [facility] Comment on above: Expected: 08/01/2024 , Expires: 10/31/2024 Start: 08-01-2024 End: 10-31-2024 Hemoglobin A1c in Blood HEMOGLOBIN A1C Lab Routine History of hemorrhage 8 weeks gestation of Expected: 08/01/2024, Expires: 10/31/2024 [facility] Comment on above: Expected: 08/01/2024 , Expires: 10/31/2024 Start: 08-01-2024 End: 10-31-2024 Hepatitis B virus surface Ag [Presence] in Serum HEPATITIS B SURFACE ANTIGEN Lab Routine History of hemorrhage Screen for STD (sexually transmitted disease) 8 weeks gestation of Expected: 08/01/2024, Expires: 10/31/2024 [facility] Comment on above: Expected: 08/01/2024 , Expires: 10/31/2024 Start: 08-01-2024 End: 10-31-2024 Hepatitis C virus Ab [Presence] in Serum HEPATITIS C ANTIBODY IA WITH CONFIRMATION Lab Routine History of hemorrhage Screen for STD (sexually transmitted disease) 8 weeks gestation of Expected: 08/01/2024, Expires: 10/31/2024 [facility] Comment on above: Expected: 08/01/2024 , Expires: 10/31/2024 Start: 08-01-2024 End: 10-31-2024 HIV 1+2 Ab [Presence] in Serum or Plasma by Immunoassay HIV 1/2 COMBO WITH REFLEX TO DIFFERENTIATION Lab Routine History of hemorrhage Screen for STD (sexually transmitted disease) 8 weeks gestation of Expected: 08/01/2024, Expires: 10/31/2024 [facility] Comment on above: Expected: 08/01/2024 , Expires: 10/31/2024 Start: 08-01-2024 End: 08-01-2025 OBSTETRIC ULTRASOUND WHI OBSTETRIC ULTRASOUND WHI Anc Imaging Routine 8 weeks gestation of Expected: 08/01/2024, Expires: 08/01/2025 [facility] Comment on above: Expected: 08/01/2024 , Expires: 08/01/2025 Start: 08-01-2024 End: 10-31-2024 Protein/Creatinine [Mass Ratio] in Urine PROTEIN / CREATININE RATIO Lab Routine 8 weeks gestation of Hx of preeclampsia, prior , currently Expected: 08/01/2024, Expires: 10/31/2024 [facility] Comment on above: Expected: 08/01/2024 , Expires: 10/31/2024 Start: 08-01-2024 End: 10-31-2024 RUBELLA IGG ANTIBODY RUBELLA IGG ANTIBODY Lab Routine History of hemorrhage 8 weeks gestation of Expected: 08/01/2024, Expires: 10/31/2024 [facility] Comment on above: Expected: 08/01/2024 , Expires: 10/31/2024 Start: 08-01-2024 End: 10-31-2024 SYPHILIS TREPONEMAL W/REFLEX SYPHILIS TREPONEMAL W/REFLEX Lab Routine History of hemorrhage Screen for STD (sexually transmitted disease) 8 weeks gestation of Expected: 08/01/2024, Expires: 10/31/2024 [facility] Comment on above: Expected: 08/01/2024 , Expires: 10/31/2024 Start: 08-01-2024 End: 10-31-2024 Thyrotropin [Units/volume] in Serum or Plasma THYROID STIMULATING HORMONE Lab Routine 8 weeks gestation of Hypothyroidism, unspecified type Expected: 08/01/2024, Expires: 10/31/2024 [facility] Comment on above: Expected: 08/01/2024 , Expires: 10/31/2024 Start: 08-01-2024 End: 10-31-2024 TYPE + SCREEN TYPE + SCREEN Blood Bank Routine History of hemorrhage 8 weeks gestation of Expected: 08/01/2024, Expires: 10/31/2024 [facility] Comment on above: Expected: 08/01/2024 , Expires: 10/31/2024 Start: 08-01-2024 End: 08-01-2024 Patient encounter procedure 08/01/2024 8:15 AM EDT Initial Office Visit OB/Gynecology [address] [place] [address] Elayne Severino APRN.SUPERVISOR ESTIMATOR AND DRAFTER [address] [place] [address] NOB LMP 2 OB/Gynecology Comment on above: NOB LMP 2 Start: 07-22-2024 End: 07-22-2024 ambulatory 07/22/2024 4:00 PM EDT [facility] [address] [place] [address] Genie Jackson MD [address] [place] [address] Medication options for Linzess during pregancy. [facility] [place] Comment on above: Medication options f or Linzess during pregancy. Start: 06-27-2024 End: 06-27-2024 ambulatory 06/27/2024 11:00 AM EST [facility] [place] [address] [place] [address] Ivelisse Ng APRN.SUPERVISOR ESTIMATOR AND DRAFTER [address] [place] [address] 2 week f/u medication change Family Medicine [place] Comment on above: 2 week f/u medicatio n change Start: 01-22-2024 End: 01-22-2024 Patient encounter procedure 01/22/2024 10:00 AM EDT Office Visit Family Medicine Jennifer [address] [place] [address] Ivelisse Ng, RESTAURANT LEAD.SUPERVISOR ESTIMATOR AND DRAFTER [address] [place] [address] medication refills needed/Wellness visit needed Family Medicine [place] Comment on above: medication refills n eeded/Wellness visit needed Start: 01-03-2024 Covid-19 Vaccine ( season) Covid-19 Vaccine ( season) [facility] Start: 01-03-2024 Covid-19 Vaccine () Covid-19 Vaccine () [facility] Start: 01-03-2024 Influenza vaccination [facility] Start: 12-24-2023 End: 12-24-2023 Patient encounter procedure 12/24/2023 10:40 AM EDT Office Visit Family Medicine [place] [address] [place] [address] Ivelisse Ng, RESTAURANT LEAD.SUPERVISOR ESTIMATOR AND DRAFTER [address] [place] [address] yearly [facility] [place] Comment on above: yearly Start: 11-24-2023 End: 11-24-2023 ambulatory 11/24/2023 4:30 PM EDT [facility] OB/Gynecology [address] [place] [address] Elayne Severino, RESTAURANT LEAD.SUPERVISOR ESTIMATOR AND DRAFTER [address] [place] [address] Discuss ultrasound results OB/Gynecology Comment on above: Discuss ultrasound r esults Start: 11-19-2023 End: 11-19-2023 ambulatory 11/19/2023 1:30 PM EDT Procedure OB/Gynecology [address] [place] [address] Irregular menses [N92.6] OB/Gynecology Comment on above: Irregular menses [N9 2.6] Start: 11-04-2023 End: 02-03-2024 DHEA-S BLD DHEA-S BLD Lab Routine Irregular menses Expected: 11/04/2023, Expires: 02/03/2024 [facility] Comment on above: Expected: 11/04/2023 , Expires: 02/03/2024 Start: 11-04-2023 End: 02-03-2024 Estradiol (E2) [Mass/volume] in Serum or Plasma ESTRADIOL-17B BLD Lab Routine Irregular menses Expected: 11/04/2023, Expires: 02/03/2024 [facility] Comment on above: Expected: 11/04/2023 , Expires: 02/03/2024 Start: 11-04-2023 End: 02-03-2024 Follitropin [Units/volume] in Serum or Plasma FOLLICLE STIMULATING HORMONE Lab Routine Irregular menses Expected: 11/04/2023, Expires: 02/03/2024 [facility] Comment on above: Expected: 11/04/2023 , Expires: 02/03/2024 Start: 11-04-2023 End: 02-03-2024 Hemoglobin A1c in Blood HEMOGLOBIN A1C Lab Routine Irregular menses Class II obesity Expected: 11/04/2023, Expires: 02/03/2024 [facility] Comment on above: Expected: 11/04/2023 , Expires: 02/03/2024 Start: 11-04-2023 End: 02-03-2024 Lutropin [Units/volume] in Serum or Plasma LUTEINIZING HORMONE Lab Routine Irregular menses Expected: 11/04/2023, Expires: 02/03/2024 [facility] Comment on above: Expected: 11/04/2023 , Expires: 02/03/2024 Start: 11-04-2023 End: 02-03-2024 Progesterone [Mass/volume] in Serum or Plasma PROGESTERONE Lab Routine Irregular menses Expected: 11/04/2023, Expires: 02/03/2024 [facility] Comment on above: Expected: 11/04/2023 , Expires: 02/03/2024 Start: 11-04-2023 End: 02-03-2024 Thyrotropin [Units/volume] in Serum or Plasma THYROID STIMULATING HORMONE Lab Routine Irregular menses Acquired hypothyroidism Class II obesity Expected: 11/04/2023, Expires: 02/03/2024 [facility] Work Phone: Comment on above: Expected: 11/04/2023 , Expires: 02/03/2024 Start: 11-04-2023 End: 11-03-2024 US Pelvis PELVIC US WHI Anc Imaging Routine Irregular menses Class II obesity Menorrhagia with irregular cycle Dysmenorrhea Expected: 11/04/2023, Expires: 11/03/2024 [facility] Comment on above: Expected: 11/04/2023 , Expires: 11/03/2024 Start: 08-27-2023 ANNUAL PCP TEAM CHRONIC DISEASE VISIT ANNUAL PCP TEAM CHRONIC DISEASE VISIT [facility] Start: 07-02-2023 [facility] Start: 06-17-2023 End: 09-16-2023 CBC W Auto Differential panel - Blood [facility] Work Phone: Comment on above: Expected: 06/17/2023 , Expires: 09/16/2023 Start: 06-17-2023 End: 09-16-2023 Choriogonadotropin.bet a subunit [Units/volume] in Serum or Plasma [facility] Work Phone: Comment on above: Expected: 06/17/2023 , Expires: 09/16/2023 Start: 06-17-2023 End: 09-16-2023 Comprehensive metabolic 2000 panel - Serum or Plasma [facility] Work Phone: Comment on above: Expected: 06/17/2023 , Expires: 09/16/2023 Start: 06-17-2023 End: 09-16-2023 Ferritin [Mass/volume] in Serum or Plasma [facility] Work Phone: Comment on above: Expected: 06/17/2023 , Expires: 09/16/2023 Start: 06-17-2023 End: 09-16-2023 Iron and Iron binding capacity panel - Serum or Plasma [facility] Work Phone: Comment on above: Expected: 06/17/2023 , Expires: 09/16/2023 Start: 05-04-2023 Behavioral Health Screening Behavioral Health Screening [facility] Start: 05-04-2023 Depression Assessment Depression Ass [facility] Start: 05-04-2023 zzBehavioral Health Screening zzBehavioral Health Screening [facility] Start: 03-07-2023 ANNUAL PCP TEAM CHRONIC DISEASE VISIT ANNUAL PCP TEAM CHRONIC DISEASE VISIT [facility] Start: 02-12-2023 ANNUAL PCP TEAM CHRONIC DISEASE VISIT ANNUAL PCP TEAM CHRONIC DISEASE VISIT [facility] Start: 01-02-2023 Covid-19 Vaccine () Covid-19 Vaccine () [facility] Start: 01-02-2023 Influenza vaccination C [facility] Start: 12-21-2022 PAP TESTING PAP TESTING [facility] Start: 12-21-2022 Screening for malignant neoplasm of cervix [facility] Start: 11-26-2022 ANNUAL PCP TEAM CHRONIC DISEASE VISIT ANNUAL PCP TEAM CHRONIC DISEASE VISIT [facility] Start: 09-17-2022 ANNUAL PCP TEAM CHRONIC DISEASE VISIT ANNUAL PCP TEAM CHRONIC DISEASE VISIT [facility] Start: 08-26-2022 End: 10-26-2022 POTASSIUM BLD POTASSIUM BLD Lab Routine Hypokalemia Expected: 08/26/2022, Expires: 10/26/2022 [facility] Work Phone: Comment on above: Expected: 08/26/2022 , Expires: 10/26/2022 Start: 06-07-2022 ANNUAL PCP TEAM CHRONIC DISEASE VISIT ANNUAL PCP TEAM CHRONIC DISEASE VISIT [facility] Start: 05-04-2022 DEPRESSION ASSESSMENT DEPRESSION ASS ESSMENT [facility] Start: 04-05-2022 Adult depression screening assessment DEPRESSION SCREENING [facility] Start: 02-02-2022 End: 02-16-2022 Influenza virus A and B RNA and SARS-CoV-2 (COVID-19) N gene panel - Respiratory specimen by RODERICK with probe detection COVID WITH FLUA+B, ROUTINE Microbiology Routine Viral URI with cough Expected: 02/02/2022, Expires: 02/16/2022 [facility] Work Phone: Comment on above: Expected: 02/02/2022 , Expires: 02/16/2022 Start: 01-02-2022 Influenza vaccination C [facility] Start: 10-01-2021 End: 12-01-2021 Pyridoxine [Mass/volume] in Serum or Plasma VITAMIN B6/PYRIDOXIN Lab Routine Fatigue, unspecified type Expected: 10/01/2021, Expires: 12/01/2021 [facility] Work Phone: Comment on above: Expected: 10/01/2021 , Expires: 12/01/2021 Start: 10-01-2021 End: 12-01-2021 VITAMIN B12 BLOOD VITAMIN B12 BLOOD Lab Routine Fatigue, unspecified type Expected: 10/01/2021, Expires: 12/01/2021 [facility] Work Phone: Comment on above: Expected: 10/01/2021 , Expires: 12/01/2021 Start: 10-01-2021 End: 12-01-2021 VITAMIN D 25 HYDROXY VITAMIN D 25 HYDROXY Lab Routine Fatigue, unspecified type Expected: 10/01/2021, Expires: 12/01/2021 [facility] Work Phone: Comment on above: Expected: 10/01/2021 , Expires: 12/01/2021 Start: 07-25-2021 COVID-19 VACCINE (2 - Pfizer series) COVID-19 VACCINE (2 - Pfizer series) [facility] Start: 06-20-2021 COVID-19 VACCINE (2 - Pfizer 3-dose series) COVID-19 VACCINE (2 - Pfizer 3-dose series) [facility] Start: 06-20-2021 COVID-19 VACCINE (2 - Pfizer series) COVID-19 VACCINE (2 - Pfizer series) [facility] Start: 05-04-2021 DEPRESSION ASSESSMENT DEPRESSION ASS ESSMENT [facility] Start: 02-07-2019 Urine microalbumin profile [facility] Start: 2017 ONE PNEUMOVAX PRIOR TO AGE 65 ONE PNEUMOVAX PRIOR TO AGE 63 [facility] Start: 12-20-2016 CHLAMYDIA SCREENING () CHLAMYDIA SCREENING (18-24) [facility] Start: 12-20-2016 GC (GONORRHEA) SCREENING (18-24) GC (GONORRHEA) SCREENING (18-24) [facility] Start: 02-01-2016 Anxiety Screening Anxiety Screening [facility] Start: 02-01-2016 Depression Screening Depression Scre ening [facility] Start: 2014 Meningococcal B Vaccine: Consider Based On Risk (1 of 2 - Patient Seeks Protection) Meningococcal B Vaccine: Consider Based On Risk (1 of 2 - Patient Seeks Protection) [facility] Start: 02-01-2012 PEDS TO ADULT TRANSITION ANNUAL ASSESSMENT PEDS TO ADULT TRANSITION ANNUAL ASSESSMENT [facility] Start: 2010 PEDS TO ADULT TRANSITION INITIAL DISCUSSION PEDS TO ADULT TRANSITION INITIAL DISCUSSION [facility] Start: 02-01-2008 MENINGOCOCCAL B: Consider based on risk (1 of 2 - Risk Bexsero 2-dose series) MENINGOCOCCAL B: Consider based on risk (1 of 2 - Risk Bexsero 2-dose series) [facility] Start: 02-01-2004 PNEUMOCOCCAL (1 - PCV) PNEUMOCOCCAL (1 - PCV) [facility] Bacteria identified in Urine by Culture URINE CULTURE Microbiology Routine Acute UTI 09/30/2022 12:45 PM T [facility] Work Phone: Bacteria identified in Urine by Culture BACTERIAL CULTURE, URINE Microbiology Routine History of hemorrhage 8 weeks gestation of 08/01/2024 9:47 AM T [facility] Chlamydia trachomatis+Neisseria gonorrhoeae DNA [Presence] in Unspecified specimen by RODERICK with probe detection GONORRHEA/CHLAMYDIA NAAT Lab Routine History of hemorrhage Screen for STD (sexually transmitted disease) 8 weeks gestation of 08/01/2024 9:47 AM [facility] Chlamydia trachomatis+Neisseria gonorrhoeae DNA [Presence] in Unspecified specimen by RODERICK with probe detection GONORRHEA/CHLAMYDIA NAAT Lab Routine Supervision of other high risk pregnancies, second trimester (HCC) 16 weeks gestation of (HCC) Trichomoniasis Screen for STD (sexually transmitted disease) 09/29/2024 11:48 AM [facility] End: 08-27-2023 EMG(NEURO/NI) EMG(NEURO/NI) EMG Routine Paresthesia Hand pain, left 1 Occurrences starting 08/26/2022 until 08/27/2023 [facility] Work Phone: Comment on above: 1 Occurrences starti ng 08/26/2022 until 08/27/2023 End: 03-16-2025 nonstress test NON-STRESS TEST Procedures Routine Anemia during in third trimester ([facility]) Obesity in ([facility]) Supervision of high risk in third trimester ([facility]) 31 weeks gestation of ([facility]) 8 Occurrences starting 01/12/2025 until 03/16/2025 [facility] Work Phone: Comment on above: 8 Occurrences starti ng 01/12/2025 until 03/16/2025 End: 04-17-2025 OBSTETRIC ULTRASOUND WHI OBSTETRIC ULTRASOUND WHI Anc Imaging Routine Supervision of other high risk pregnancies, second trimester ([facility]) Hx of preeclampsia, prior , currently ([facility]) Obesity in ([facility]) Hypothyroidism, unspecified type Once per month for 6 Occurrences starting 09/29/2024 until 04/17/2025 [facility] Work Phone: Comment on above: Once per month for 6 Occurrences starting 09/29/2024 until 04/17/2025 PAP TEST PAP TEST Lab Yari fitzpatrick Encounter for gynecological examination (general) (routine) without abnormal findings Screening for cervical cancer Encounter for screening for human papillomavirus (HPV) 11/10/2023 3:58 PM EDT [facility] Work Phone: Patient Education [facility] Work Phone: Patient referral [facility] Work Phone: Protein [Mass/time] in 24 hour Urine PROTEIN, 24 HOUR URINE Lab Routine Proteinuria complicating in second trimester ([facility]) 11/21/2024 8:00 AM EDT [facility] Work Phone: End: 08-31-2025 Thyrotropin [Units/volume] in Serum or Plasma THYROID STIMULATING HORMONE Lab Routine Hypothyroidism, unspecified type Once per month for 8 Occurrences starting 08/31/2024 until 08/31/2025 [facility] Comment on above: Once per month for 8 Occurrences starting 08/31/2024 until 08/31/2025 End: 08-31-2025 Thyroxine (T4) free [Mass/volume] in Serum or Plasma T4 FREE/FREE THYROXINE Lab Routine Hypothyroidism, unspecified type Once per month for 8 Occurrences starting 08/31/2024 until 08/31/2025 [facility] Work Phone: Comment on above: Once per month for 8 Occurrences starting 08/31/2024 until 08/31/2025 TRICHOMONAS VAGINALI S NAAT TRICHOMONAS VAGINALIS NAAT Lab Routine Screen for STD (sexually transmitted disease) 8 weeks gestation of 08/01/2024 9:47 AM EDT [facility] TRICHOMONAS VAGINALI S NAAT TRICHOMONAS VAGINALIS NAAT Lab Routine Supervision of other high risk pregnancies, second trimester (HCC) 16 weeks gestation of (HCC) Trichomoniasis Screen for STD (sexually transmitted disease) 09/29/2024 11:48 AM EDT [facility] Urine culture [facility] [place] Immunizations Immunization Date Immunization Notes Care Provider [facility] 12-28-2024 tetanus toxoid, redu george diphtheria toxoid, and acellular pertussis vaccine, adsorbed [facility] 05-30-2021 COVID-19 original vaccine, age 12+ yr, monovalent (PFIZER-BIONTECH - MINOR TOP) [facility] 05-30-2021 COVID-19 vaccine, ag e 12+ yr (PFIZER-BIONTECH - PURPLE TOP) Genie Jackson MD Work Phone: [facility] 07-23-2016 influenza virus vacc ine, unspecified formulation Terrell Cloud APRN.CNP Work Phone: [facility] 12-05-2009 human papilloma viru s vaccine, quadrivalent Genie Jackson MD Work Phone: [facility] Work Phone: 08-01-2009 human papilloma viru s vaccine, quadrivalent Genie Jackson MD Work Phone: [facility] Work Phone: 02-07-2009 human papilloma viru s vaccine, quadrivalent Genie Jackson MD Work Phone: [facility] Work Phone: 02-07-2009 meningococcal polysaccharide vaccine (MPSV4) Ivelisse Ng RESTAURANT LEAD.SUPERVISOR ESTIMATOR AND DRAFTER Work Phone: [facility] 02-07-2009 Meningococcal, MCV4, unspecified conjugate formulation(groups A, C, Y and W-135) Genie Jackson MD Work Phone: [facility] Work Phone: 02-07-2009 tetanus toxoid, redu george diphtheria toxoid, and acellular pertussis vaccine, adsorbed Genie Jackson MD Work Phone: [facility] Work Phone: 10-11-2003 diphtheria, tetanus toxoids and acellular pertussis vaccine Genie Jackson MD Work Phone: [facility] Work Phone: 10-11-2003 poliovirus vaccine, inactivated Genie Jackson MD Work Phone: [facility] Work Phone: 08-03-2003 measles, mumps and rubella virus vaccine Genie Jackson MD Work Phone: [facility] Work Phone: 12-20-1999 diphtheria, tetanus toxoids and acellular pertussis vaccine Genie Jackson MD Work Phone: [facility] Work Phone: 12-20-1999 haemophilus influenz ae type b vaccine, HbOC conjugate Genie Jackson MD Work Phone: [facility] Work Phone: 12-20-1999 haemophilus influenz ae type b vaccine, PRP-OMP conjugate Ivelisse Ng RESTAURANT LEAD.SUPERVISOR ESTIMATOR AND DRAFTER Work Phone: [facility] 03-20-1999 diphtheria, tetanus toxoids and acellular pertussis vaccine Genie Jackson MD Work Phone: [facility] Work Phone: 03-20-1999 haemophilus influenz ae type b vaccine, HbOC conjugate Genie Jackson MD Work Phone: [facility] Work Phone: 03-20-1999 haemophilus influenz ae type b vaccine, PRP-OMP conjugate Ivelisse Ng RESTAURANT LEAD.SUPERVISOR ESTIMATOR AND DRAFTER Work Phone: [facility] 03-20-1999 measles, mumps and rubella virus vaccine Genie Jackson MD Work Phone: [facility] Work Phone: 03-20-1999 poliovirus vaccine, inactivated Genie Jackson MD Work Phone: [facility] Work Phone: 1998 hepatitis B vaccine, pediatric or pediatric/adolescent dosage Genie Jackson MD Work Phone: [facility] Work Phone: 1998 diphtheria, tetanus toxoids and acellular pertussis vaccine Genie Jackson MD Work Phone: [facility] Work Phone: 1998 haemophilus influenz ae type b vaccine, HbOC conjugate Genie Jackson MD Work Phone: [facility] Work Phone: 1998 haemophilus influenz ae type b vaccine, PRP-OMP conjugate Ivelisse Ng APRN.SUPERVISOR ESTIMATOR AND DRAFTER Work Phone: [facility] 1998 poliovirus vaccine, inactivated Gneie Jackson MD Work Phone: [facility] Work Phone: 1998 diphtheria, tetanus toxoids and acellular pertussis vaccine Genie Jackson MD Work Phone: [facility] Work Phone: 1998 haemophilus influenz ae type b vaccine, HbOC conjugate Genie Jackson MD Work Phone: [facility] Work Phone: 1998 haemophilus influenz ae type b vaccine, PRP-OMP conjugate Ivelisse Ng RESTAURANT LEAD.SUPERVISOR ESTIMATOR AND DRAFTER Work Phone: [facility] 1998 poliovirus vaccine, inactivated Genie Jackson MD Work Phone: [facility] Work Phone: 1998 hepatitis B vaccine, pediatric or pediatric/adolescent dosage Genie Jackson MD Work Phone: [facility] Work Phone: 1998 hepatitis B vaccine, pediatric or pediatric/adolescent dosage Genie Jackson MD Work Phone: [facility] Work Phone: Payers Date Payer Category Payer Self-pay [id number] 2023 Unknown [id number] 2022 Unknown 2017 Private Health Insurance 2017 Private Health Insurance AETNA A ETNA CHOICE POS II [id number] 2017-Present [phone] [address] [place] [address] POS [id number] 2017 Unknown [employer] [id number] 2017 Unknown [id number] 2016 Medicaid [employer] A[employer] MEDICAID [id number] 2016-Present [phone] [address] [place] [address] Medicaid [id number] 2016 Medicaid [id number] 1998 Unknown [id number] 1998 Unknown [id number] Private Health Insurance [id number] Unknown [id number] Unknown [id number] Social History Date Type Detail Facility Start: 04-14-2014 End: 07-02-2023 Tobacco smoking status NHIS Smokes tobacco daily [facility] Start: 05-04-2012 End: 08-20-2020 History of tobacco use Cigarette Smoker [facility] Start: 04-14-2014 End: 06-15-2024 Cigarettes smoked current (pack per day) - Reported 0.5 [facility] Start: 04-14-2014 End: 07-25-2024 Tobacco use and exposure Smokeless tobacco non-user [facility] Start: 05-09-2021 End: 07-20-2024 Alcohol intake Current non-drinker of alcohol (finding) [facility] Start: 01-09-2021 End: 08-25-2022 History SDOH Alcohol Frequency 1 [facility] Start: 01-09-2021 History SDOH Social Connections Phone 3 [facility] Start: 01-09-2021 End: 08-25-2022 History SDOH Social Connections Membership 2 [facility] Start: 01-09-2021 History SDOH Social Connections Living 8 [facility] Start: 01-09-2021 History SDOH Physica l Activity DPW 0 [facility] Start: 01-09-2021 End: 08-25-2022 History SDOH Stress 5 [facility] Start: 01-09-2021 Education 11 [facility] Start: 07-30-2020 End: 12-24-2021 Tobacco Comment Vapes [facility] Start: 1998 Sex Assigned At Not on file [facility] Start: 09-07-2021 End: 12-24-2021 Exposure to SARS-CoV-2 (event) Not sure [facility] Start: 09-25-2021 End: 07-25-2024 Tobacco smoking status NHIS Ex-smoker [facility] Work Phone: Start: 05-04-2012 End: 08-20-2020 History of tobacco use Current smoker [facility] Work Phone: Start: 03-02-2022 End: 07-02-2023 Tobacco smoking status NHIS Unknown if ever smoked [facility] Start: 09-27-2017 None [facility] Start: 09-27-2017 [facility] Start: 2000 Sex Assigned At Female W [facility] Start: 08-25-2022 History SDOH Social Connections Get Together 4 [facility] Start: 08-25-2022 History SDOH Social Connections Living 7 [facility] Start: 08-25-2022 History SDOH Physica l Activity MPS 15 [facility] Start: 08-25-2022 End: 06-15-2024 Social connection and isolation panel [facility] Do you belong to any clubs or organizations such as bahai groups, unions, fraternal or athletic groups, or school groups? No [facility] Are you now , , , , never or living with a partner? Never [facility] How often to you hav e a drink containing alcohol? Monthly or less [facility] How many standard dr inks containing alcohol do you have on a typical day? 1 or 2 [facility] How often do you hav e 6 or more drinks on 1 occasion? Never [facility] Start: 04-04-2012 How hard is it for y ou to pay for the very basics like food, housing, medical care, and heating Not hard at all [facility] Do you feel stress - tense, restless, nervous, or anxious, or unable to sleep at night because your mind is troubled all the time - these days [OSQ] Very much [facility] (I/We) worried whemichelle er (my/our) food would run out before (I/we) got money to buy more. Never true [facility] Tobacco smoking status No Smokin g Status Entered [facility] Are you now , , , , never or living with a partner? Living with partner [facility] Start: 08-01-2024 End: 01-12-2025 Alcoholic beverage intake Ex-drinker (finding) [facility] Start: 07-25-2024 Alcohol [facility] Start: 06-18-2024 [facility] NEGATED: Highlighted row [facility] NEGATED: Highlighted rowStart: [place] History of tobacco use Passive smoker [facility] Goals Date Patient Goal Desired Activity /State Personal health goal Functional Status Date Assessment Result Facility 07-06-2023 Functional Status ID band on, Safety level maintained [facility] 08-18-2014 Are you deaf, or do you have serious difficulty hearing No 08/18/2014 3:08 PM EDT Yaritza Mccollum MA No [facility] 08-18-2014 Are you blind, or do you have serious difficulty seeing, even when wearing glasses No 08/18/2014 3:08 PM EDT Yaritza Mccollum MA No [facility] 08-18-2014 Do you have serious difficulty walking or climbing stairs No 08/18/2014 3:08 PM EDT Yraitza Mccollum MA No [facility] 08-18-2014 Do you have difficul ty dressing or bathing No 08/18/2014 3:08 PM EDT Yaritza Mccollum MA No [facility] 08-18-2014 Because of a physica l, mental, or emotional condition, do you have difficulty doing errands alone such as visiting a physician's office or shopping No 08/18/2014 3:08 PM EDT Yaritza Mccollum MA No [facility] Mental Status Date Assessment Result Facility 07-06-2023 Mental Status Orientation Oriented x 4 [facility] 07-02-2023 Cognitive function Level Of Cons ciousness Awake;Alert;Appropriate [facility] Work Phone: 09-06-2022 Cognitive function Level Of Cons ciousness Awake;Alert;Appropriate;Fol lows Commands [facility] Work Phone: 08-18-2014 Because of a physica l, mental, or emotional condition, do you have serious difficulty concentrating, remembering, or making decisions Yes 08/18/2014 3:08 PM EDT Yaritza Mccollum MA Yes [facility] Clinical Notes 07-23-2016 to 02-14-2025 Telephone Encounter - Dhara Sanchez MD - 01/17/2025 12:56 PM EDTTelephone Encounter - Dhara Sanchez MD - 01/17/2025 12:56 PM EDTTelephone Encounter - Steffanie Lozada RN - 01/17/2025 12:39 PM EDT Note Date & Type Note Facility 02-14-2025 Note HNO ID: [id number] Author: DHARA SANCHEZ MD Service: ? Author [...] None Interpretation: Reactive SIGNATURE: Dhara Sanchez MD [facility] 02-09-2025 Note HNO ID: [id number] Author: XIMENA HARTMAN MD Service: ? Author [...] scheduled for BPP SIGNATURE: Ximena Hartman DO [facility] 02-02-2025 Note HNO ID: [id number] Author: STEFFANIE LOPEZ MD Service: ? Author Type: Physician Type: Progress Notes Filed: 02/02/2025 11:56 Note Text: NST SUMMARY PROVIDER ASSESSMENT AND INTERPRETATION Indications for NST: Polyhydramnios Baseline: 130 Variability: Moderate Accelerations: Present 15 X 15 Decelerations: None Interpretation: Reactive SIGNATURE: Steffanie Lopez MD [facility] 01-27-2025 Note HNO ID: [id number] Author: BHARGAVI NAVAS APRN.CN Service: ? Author Type: Community Action Worker Type: Progress Notes Filed: 01/27/2025 13:38 Note Text: NST SUMMARY PROVIDER ASSESSMENT AND INTERPRETATION Janet Cha is a 24 year old female, , who is at 33w6d with an KELLEY of 03/11/2025, by Last Menstrual Period dating method. Indications for NST: Obesity Baseline: 125 Variability: Moderate Accelerations: Present 15 X 15 Decelerations: None Contractions: TOCO: None Interpretation: Reactive SIGNATURE: Bhargavi Navas APRN.CNM [facility] 01-24-2025 Note HNO ID: [id number] Author: DHARA SANCHEZ MD Service: ? Author [...] None Interpretation: Reactive SIGNATURE: Dhara Sanchez MD [facility] 01-17-2025 Telephone encounter Note EDC was confirmed by 2 early US and will not be changed. We can discuss this further at her next visit. Dhara Sanchez MD [facility] Work Phone: 01-17-2025 Miscellaneous Notes EDC was [...] Steffanie Lozada, RN documented in this encounter [facility] 01-17-2025 Telephone encounter Note Patient had called in to the office earlier. She has her next growth US and office visit on 01/24. Recommended patient discuss at this upcoming appointment once we have more information with the baby's growth. Can you please address this today in SW's absence since her next appointment is with you? Steffanie Lozada RN [facility] 01-12-2025 Note HNO ID: [id number] Author: XIMENA HARTMAN MD Service: ? Author [...] was reading higher, and she went to [facility] recently for BP check. Recommend bringing BP cuff to next appointment. Cont LDA. Discussed reasons to call - Shortness of Breath with exertion only: Discussed reasons to go to ER - Obesity: Schedule repeat growth US and weekly NST's ordered starting at 36 weeks - RTO 2 wks Ximena Hartman DO [facility] 01-12-2025 History of Presen t illness [...] Ximena Hartman DO documented in this encounter [facility] 01-12-2025 Instructions Vincent Hale RN - 01/12/2025 11:09 AM EDT SEQUENTIAL SCREENINGS The [facility] offers sequential screenings for women who [...] It will require an appointment with our telegraph repeater technician. This is not an ultrasound performed [...] the above symptoms, contact our office at [phone] and ask to speak with a nurse. After hours, you can call doctors registry at [phone] OR call [facility] at [phone] and ask to have the doctor production editor paged. If you consider this an emergency, dial 01-02- or go to your nearest emergency department. NEED HELP? Are you dealing with a violent or abusive relationship? Are you a victim of rape or sexual assult? Call [facility] ([facility] 24 hour Crisis Hotline: 206.680.4364 or 958-629-2382. MANUAL Your Guide to a Healthy manual is now on-line. Visit [email or web address] Vincenzo to download your free copy documented in this encounter [facility] 01-05-2025 Telephone encounter Note Patient Comment: Only [...] Jaquez MA January 05, 2025 10:28 AM [facility] 01-05-2025 Miscellaneous Notes Patient Comment: Only have [...] 2025 10:28 AM documented in this encounter [facility] 12-29-2024 Telephone encounter Note Hgb 10.5 Borderline anemic. Can start taking iron every other day and repeat labs in 4 weeks [facility] 12-29-2024 Miscellaneous Notes Hgb 10.5 Borderline anemic. [...] Vincent Hale, VENKATESH documented in this encounter [facility] 12-29-2024 Telephone encounter Note 29w5d Pt call [...] with 1st child fyi. Vincent Hale, VENKATESH [facility] 12-29-2024 Telephone encounter Note 3rd risk assessment form submitted 12/29/2024. Steffanie Neely RN [facility] 12-29-2024 Miscellaneous Notes 3rd risk assessment form submitted 12/29/2024. Steffanie Neely RN documented in this encounter [facility] 12-28-2024 Note Indication Evaluation of growth Maternal [...] 5 oz EFW by: Hadlock (HC-AC-FL) Extended Dozer Operator 6.3 mm Extremities / Bony Struc FL [...] and consent was signed Emmanuel Hess MD [facility] 12-28-2024 Miscellaneous Notes RR- VB No. LOF [...] Emmanuel Hess MD documented in this encounter [facility] 12-28-2024 Note HNO ID: [id number] Author: YARITZA MCCOLLUM MA Service: ? Author Type: Rf Engineer Type: Progress Notes Filed: 12/28/2024 15:10 Note [...] severely ill: Yes Patient denies history of Guillain-Lindside Syndrome (a severe paralytic illness): Yes Tdap Adacel injection was given without incident. See immunizations for details of immunizations administered today. VIS sheet provided: Yes Provider Dr Hess was present in office at time of injection. [facility] 12-28-2024 History of Presen t illness [...] severely ill: Yes Patient denies history of Guillain-Lindside Syndrome (a severe paralytic illness): Yes Tdap Adacel injection was given without incident. See immunizations for details of immunizations administered today. VIS sheet provided: Yes Provider Dr Hess was present in office at time of injection. documented in this encounter [facility] 12-28-2024 Instructions Yaritza Mccollum MA - 12/28/2024 1:37 PM EDT SEQUENTIAL SCREENINGS The [facility] offers sequential screenings for women who [...] It will require an appointment with our telegraph repeater technician. This is not an ultrasound performed [...] the above symptoms, contact our office at [phone] and ask to speak with a nurse. After hours, you can call doctors registry at [phone] OR call [facility] at [phone] and ask to have the doctor production editor paged. If you consider this an emergency, dial 9-5-0 or go to your nearest emergency department. NEED HELP? Are you dealing with a violent or abusive relationship? Are you a victim of rape or sexual assult? Call [facility] ([facility] 24 hour Crisis Hotline: 391.171.8222 or 074-869-1403. MANUAL Your Guide to a Healthy manual is now on-line. Visit [email or web address] Vincenzo to download your free copy documented in this encounter [facility] 12-23-2024 Telephone encounter Note Patient 28w6d calling with concerns of decreased FM. Patient states she has decreased movement since Thursday. States she is not getting 6-10 movement in an hour when doing kick counts. Patient advised to go to L&D for evaluation, voiced understanding. FYI. Asia Garzon RN [facility] 12-23-2024 Miscellaneous Notes Patient 28w6d calling with concerns of decreased FM. Patient states she has decreased movement since Thursday. States she is not getting 6-10 movement in an hour when doing kick counts. Patient advised to go to L&D for evaluation, voiced understanding. FYI. Asia Garzon RN documented in this encounter [facility] 11-30-2024 Telephone encounter Note Ob patient called requesting refill of aspirin 81 mg. [facility] 11-30-2024 Miscellaneous Notes Ob patient called requesting refill of aspirin 81 mg. documented in this encounter [facility] 11-29-2024 Note HNO ID: [id number] Author: ANDRE SIMPSON APRN.SUPERVISOR ESTIMATOR AND DRAFTER Service: ? Author Type: Nurse Practitioner Type: Progress Notes Filed: 11/29/2024 13:25 Note Text: I have communicated my name and active licensure. The patient's identity and physical location were verified at the time of this visit. Either the patient or their legal farm loan representative has been informed of the risks [...] Follow up in 4 weeks. Andre Simpson APRN.SUPERVISOR ESTIMATOR AND DRAFTER Visit was conducted via [employer] Provider Location: [facility] Facility Patient Location: Patient Home or Place of Residence [facility] 11-29-2024 History of Presen t illness Narrative I have communicated my name and active licensure. The patient's identity and physical location were verified at the time of this visit. Either the patient or their legal farm loan representative has been informed of the risks [...] Follow up in 4 weeks. Andre Simpson APRN.SUPERVISOR ESTIMATOR AND DRAFTER Visit was conducted via [employer] Provider Location: [facility] Patient Location: Patient Home or Place of Residence documented in this encounter [facility] 11-29-2024 Progress note Formatting of t his [...] of other high risk pregnancies, second trimester ([facility]) - ICD9: V23.89, ICD10: O09.892 (primary diagnosis) 2. 25 weeks gestation of ([facility]) - ICD9: V22.2, ICD10: Z3A.25 3. Screening for diabetes mellitus - ICD9: V77.1, ICD10: Z13.1 - GESTATIONAL GLUCOSE SCREEN, 1-HOUR, 50 GRAM, NON-FASTING 4. Hx of preeclampsia, prior , currently ([facility]) - ICD9: V23.49, ICD10: O09.299 5. Hypothyroidism, unspecified type - ICD9: 244.9, ICD10: E03.9 Seeing Endocrinology at the end of December 6. Obesity in ([facility]) - ICD9: 649.10, ICD10: O99.210 Growth US Q 4 weeks NST @ 32 wks Elayne Severino APRN.SUPERVISOR ESTIMATOR AND DRAFTER [facility] 11-29-2024 Miscellaneous Notes RM-Pt doing well. Denies vaginal Bleeding, Leaking fluid, or regular Contractions. Pt reports good movement. Getting VARGAS, is using Benadryl and Tylenol with little relief, Reglan order to add to regimen. Physical Exam: Gen: no apparent distress Abd: soft, Gravid. Non tender to palpation. See flow sheet ASSESSMENT/PLAN: 1. Supervision of other high risk pregnancies, second trimester ([facility]) - ICD9: V23.89, ICD10: O09.892 (primary diagnosis) 2. 25 weeks gestation of ([facility]) - ICD9: V22.2, ICD10: Z3A.25 3. Screening for diabetes mellitus - ICD9: V77.1, ICD10: Z13.1 - GESTATIONAL GLUCOSE SCREEN, 1-HOUR, 50 GRAM, NON-FASTING 4. Hx of preeclampsia, prior , currently ([facility]) - ICD9: V23.49, ICD10: O09.299 5. Hypothyroidism, unspecified type - ICD9: 244.9, ICD10: E03.9 Seeing Endocrinology at the end of December 6. Obesity in ([facility]) - ICD9: 649.10, ICD10: O99.210 Growth US Q 4 weeks NST @ 32 wks Elayne Severino APRN.SUPERVISOR ESTIMATOR AND DRAFTER documented in this encounter [facility] 11-29-2024 Instructions Tammy Duke LPN - 11/29/2024 10:09 AM EDT SEQUENTIAL SCREENINGS The [facility] offers sequential screenings for women who [...] It will require an appointment with our telegraph repeater technician. This is not an ultrasound performed [...] the above symptoms, contact our office at [phone] and ask to speak with a nurse. After hours, you can call doctors registry at [phone] OR call [facility] at [phone] and ask to have the doctor production editor paged. If you consider this an emergency, dial 9--1 or go to your nearest emergency department. NEED HELP? Are you dealing with a violent or abusive relationship? Are you a victim of rape or sexual assult? Call [facility] ([place]) 24 hour Crisis Hotline: 536.534.7224 or 914-678-2214. MANUAL Your Guide to a Healthy manual is now on-line. Visit [email or web address] [email or web address] to download your free copy documented in this encounter [facility] 11-21-2024 Telephone encounter Note Urine dropped off and in process. Asia Garzon RN [facility] 11-21-2024 Miscellaneous Notes Urine dropped off and [...] morning Orders placed. documented in this encounter [facility] 11-20-2024 Evaluation note Diagnosis Onset Date Resolution 24 weeks gestation of acute November 19, 2024 10:10pm Headache in acute Yoshi y 19th, 2025 10:10pm Proteinuria affecting in second trimester acute November 19, 2024 10:10pm [facility] Work Phone: [phone] Telephone encounter Note* Telephone Encounter - Steffanie [...] to lab on Thursday morning Orders placed. [facility]07-19-2025 Hospital Discharge instructionsAdditional Instructions Keep OB appointment this week, 24 hour urine to be started 11/20 at 8am and bring to [facility] lab on 11/21 at 8am.[facility] Work Phone: 1(777) 436-497907-16-2025 Telephone encounter Note* Telephone Encounter - Joyce Restrepo MD - 11/16/2024 11:37 AM EDT Noted. Thank you [facility] Work Phone: 1(452) 278-901307-16-2025 Miscellaneous Notes* Telephone Encounter - Joyce Restrepo [...] 11/23. Steffanie Lozada RN documented in this encounterDayton Children'S Hospital07-16-2025 Telephone encounter Note * Telephone Encounter - [...] OB visit is 11/23. Steffanie Lozada RN [facility]06-26-2025 Telephone encounter Note* Telephone Encounter - Steffanie Neely RN - 10/27/2024 9:36 AM EDT 2nd risk assessment form submitted 10/27/2024. Steffanie Neely RN [facility]06-26-2025 Miscellaneous Notes* Telephone Encounter - Steffanie Neely RN - 10/27/2024 9:36 AM EDT 2nd risk assessment form submitted 10/27/2024. Steffanie Neely RN documented in this encounterDayton Children'S Hospital06-25-2025 Progress note* Quick Notes - Steffanie Lopez [...] of other high risk pregnancies, second trimester ([facility]) - ICD9: V23.89, ICD10: O09.892 (primary diagnosis) 2. Obesity in ([facility]) - ICD9: 649.10, ICD10: O99.210 Growth q 4 NST at 32 weeks 3. Hypothyroidism, unspecified type - ICD9: 244.9, ICD10: E03.9 Sees endocrine 4. Hx of preeclampsia, prior , currently ([facility]) - ICD9: V23.49, ICD10: O09.299 5. 20 weeks gestation of ([facility]) - ICD9: V22.2, ICD10: Z3A.20 Steffanie Lopez MD [facility]06-25-2025 Miscellaneous Notes* Quick Notes - Steffanie Lopez [...] of other high risk pregnancies, second trimester ([facility]) - ICD9: V23.89, ICD10: O09.892 (primary diagnosis) 2. Obesity in ([facility]) - ICD9: 649.10, ICD10: O99.210 Growth q 4 NST at 32 weeks 3. Hypothyroidism, unspecified type - ICD9: 244.9, ICD10: E03.9 Sees endocrine 4. Hx of preeclampsia, prior , currently ([facility]) - ICD9: V23.49, ICD10: O09.299 5. 20 weeks gestation of ([facility]) - ICD9: V22.2, ICD10: Z3A.20 Steffanie Lopez MD documented in this encounterDayton Children'S Hospital06-25-2025 Instructions* Patient Instructions* Angie Brown MA - 10/26/2024 11:10 AM EDT SEQUENTIAL SCREENINGS The [facility] offers sequential screenings for women who [...] testing. It will require an appointment withour telegraph repeater technician. This is not an ultrasound performed [...] the above symptoms, contact our office at [phone] and ask to speak with anurse. After hours, you can call doctors registry at [phone] OR call [facility] at [phone] ask to have the doctor production editor paged. If you consider this an emergency, dial 9--0 or go to your nearest emergency department. NEED HELP? Are you dealing with a violent or abusive relationship? Are you a victim of rape or sexual assult? Call [facility] ([place]) 24 hour Crisis Hotline: 742.113.1852 or 597-761-4079. MANUAL Your Guide to a Healthy manual is now on-line. Visit [email or web address] to download your free copy documented in this encounterDayton Children'S Hospital06-04-2025 Progress note* Result Encounter Note - Emmanuel Hess MD - 10/05/2024 12:29 PM EDT Anatomy ultrasound reviewed. No abnormalities identified. Follow up as clinically indicated. Pleaseplace copy in ob chart. Emmanuel Hess MD [facility]06-04-2025 Miscellaneous Notes* Result Encounter Note - Emmanuel Hess MD - 10/05/2024 12:29 PM EDT Anatomy ultrasound reviewed. No abnormalities identified. Follow up as clinically indicated. Pleaseplace copy in ob chart. Emmanuel Hess MD documented in this encounterDayton Children'S Hospital05-29-2025 Progress note* Quick Notes - Emmanuel Hess MD - 09/29/2024 11:36 AM EDT RR- VB No. LOF No. CTXS No. Movement: present. Other c/o: No. Medication list reviewed. SENSITIVE EXAM: The sensitive examination was discussed with the Patient or Patient's Authorized Internal Consultant. As applicable, any other physician, advance practice provider, medical student, or other health professional student that will be observing or involved in the sensitive examination for educational or training purposes was discussed with the Patient or Authorized Internal Consultant. The Patient or Authorized Internal Consultant has agreed to proceed with the sensitive [...] of other high risk pregnancies, second trimester ([facility]) Orders: TRICHOMONAS VAGINALIS NAAT GONORRHEA/CHLAMYDIA NAAT CONSULT TO ENDOCRINOLOGY; Future OBSTETRIC ULTRASOUND WHI; Standing Hx of preeclampsia, prior , currently ([facility]) Orders: OBSTETRIC ULTRASOUND WHI; Standing Obesity in ([facility]) counseled on wt gain Orders: OBSTETRIC ULTRASOUND WHI; Standing Hypothyroidism, unspecified type increased syntrhoid to 62.5 mg daily, rx sent Orders: CONSULT TO ENDOCRINOLOGY; Future OBSTETRIC ULTRASOUND WHI; Standing 16 weeks gestation of ([facility]) Orders: TRICHOMONAS VAGINALIS NAAT GONORRHEA/CHLAMYDIA NAAT CONSULT TO ENDOCRINOLOGY; Future Trichomoniasis Orders: TRICHOMONAS VAGINALIS NAAT GONORRHEA/CHLAMYDIA NAAT Screen for STD (sexually transmitted disease) Orders: TRICHOMONAS VAGINALIS NAAT GONORRHEA/CHLAMYDIA NAAT f/u in 4 weeks or prn Emmanuel Hess M.D. [facility]05-29-2025 Miscellaneous Notes* Quick Notes - Emmanuel Hess MD - 09/29/2024 11:36 AM EDT RR- VB No. LOF No. CTXS No. Movement: present. Other c/o: No. Medication list reviewed. SENSITIVE EXAM: The sensitive examination was discussed with the Patient or Patient's Authorized Internal Consultant. As applicable, any other physician, advance practice provider, medical student, or other health professional student that will be observing or involved in the sensitive examination for educational or training purposes was discussed with the Patient or Authorized Internal Consultant. The Patient or Authorized Internal Consultant has agreed to proceed with the sensitive [...] of other high risk pregnancies, second trimester ([facility]) Orders: TRICHOMONAS VAGINALIS NAAT GONORRHEA/CHLAMYDIA NAAT CONSULT TO ENDOCRINOLOGY; Future OBSTETRIC ULTRASOUND WHI; Standing Hx of preeclampsia, prior , currently ([facility]) Orders: OBSTETRIC ULTRASOUND WHI; Standing Obesity in ([facility]) counseled on wt gain Orders: OBSTETRIC ULTRASOUND WHI; Standing Hypothyroidism, unspecified type increased syntrhoid to 62.5 mg daily, rx sent Orders: CONSULT TO ENDOCRINOLOGY; Future OBSTETRIC ULTRASOUND WHI; Standing 16 weeks gestation of ([facility]) Orders: TRICHOMONAS VAGINALIS NAAT GONORRHEA/CHLAMYDIA NAAT CONSULT TO ENDOCRINOLOGY; Future Trichomoniasis Orders: TRICHOMONAS VAGINALIS NAAT GONORRHEA/CHLAMYDIA NAAT Screen for STD (sexually transmitted disease) Orders: TRICHOMONAS VAGINALIS NAAT GONORRHEA/CHLAMYDIA NAAT f/u in 4 weeks or prn Emmanuel Hess M.D. documented in this encounterDayton Children'S Hospital05-29-2025 Instructions* Patient Instructions* Yaritza Mccollum MA - 09/29/2024 11:25 AM EDT SEQUENTIAL SCREENINGS The [facility] offers sequential screenings for women who [...] testing. It will require an appointment withour telegraph repeater technician. This is not an ultrasound performed [...] the above symptoms, contact our office at [phone] and ask to speak with anurse. After hours, you can call doctors registry at [phone] OR call [facility] at [phone] ask to have the doctor production editor paged. If you consider this an emergency, dial 9-2-6 or go to your nearest emergency department. NEED HELP? Are you dealing with a violent or abusive relationship? Are you a victim of rape or sexual assult? Call [facility] ([place]) 24 hour Crisis Hotline: 292.646.5857 or 964-833-5096. MANUAL Your Guide to a Healthy manual is now on-line. Visit [email or web address] to download your free copy documented in this encounterDayton Children'S Hospital05-08-2025 Telephone encounter Note * Telephone Encounter - Genie Jackson MD - 09/08/2024 10:37 AM EDT Med refilled at appt Genie Jackson MD [facility]05-08-2025 Miscellaneous Notes* Telephone Encounter - Genie Jackson MD - 09/08/2024 10:37 AM EDT Med refilled at appt Genie Jackson MD * Telephone Encounter - Lis Link RN - 09/07/2024 11:59 AM EDT Patient reports she is completely out of her buspar. Requesting refill. Pended. Patient currently , 13 weeks, 4 days, sees ROOFING APPLICATOR MYRIAM was 08/04/24 -Per note, OK to [...] 07, 2024 12:02 PM documented in this encounterDayton Children'S Hospital05-08-2025 History of Present illness Narrative* Genie Jackson [...] visit. Either the patient or their legal farm loan representative has been informed of the risks [...] by mouth two times a day. VIT 3-SMRG-ZPUKZ-DHA ORAL Take by mouth. diphenhydramine HCl (UNISOM, [...] Past Histories independently gathered by the clinical production support supervisor and the remaining scribed note accurately describes my personal service to the patient. Genie Jackson MD The documentation for this note was completed by Lyric Jaquez MA acting as scribe for Genie Jackson MD. September 08, 2024 9:07 AM. Lyric Jaquez MA documented in this encounterDayton Children'S Hospital05-08-2025 NoteHNO ID: [id number] Author: GENIE JACKSON MD Service: ? Author [...] visit. Either the patient or their legal farm loan representative has been informed of the risks [...] by mouth two times a day. VIT 0-MECR-CSYLD-DHA ORAL Take by mouth. diphenhydramine HCl (UNISOM, [...] and Past Histories indep (more content not included)...[facility]05-07-2025 Telephone encounter Note* Telephone Encounter - Lis Link RN - 09/07/2024 11:59 AM EDT Patient reports she is completely out of her buspar. Requesting refill. Pended. Patient currently , 13 weeks, 4 days, sees ROOFING APPLICATOR MYRIAM was 08/04/24 -Per note, OK to [...] Link RN September 07, 2024 12:02 PM [facility]04-30-2025 Progress note* Result Encounter Note - Emmanuel Hess MD - 08/31/2024 1:07 PM EDT Anatomy ultrasound reviewed. No abnormalities identified. Follow up as clinically indicated. Pleaseplace copy in ob chart. Emmanuel Hess MD [facility]04-30-2025 Miscellaneous Notes* Result Encounter Note - Emmanuel Hess MD - 08/31/2024 1:07 PM EDT Anatomy ultrasound reviewed. No abnormalities identified. Follow up as clinically indicated. Pleaseplace copy in ob chart. Emamnuel Hess MD documented in this encounterDayton Children'S Hospital04-30-2025 Progress note* Quick Notes - Bhargavi Navas [...] RTO in 4 weeks Bhargavi Navas APRN.CNM [facility]04-30-2025 Miscellaneous Notes* Quick Notes - Bhargavi Navas [...] weeks Bhargavi Navas APRN.CNM documented in this encounterDayton Children'S Hospital04-30-2025 NoteHNO ID: [id number] Author: BHARGAVI NAVAS APRN.CNM Service: ? Author Type: Community Action Worker Type: Progress Notes Filed: 08/31/2024 12:39 Note Text:[facility]04-30-2025 History of Present illness Narrative* Bhargavi Navas APRN.CNM - 08/31/2024 12:06 PM EDT documented in this encounterDayton Children'S Hospital04-30-2025 Instructions* Patient Instructions* Rehan Cervantes MA - 08/31/2024 11:50 AM EDT SEQUENTIAL SCREENINGS The [facility] offers sequential screenings for women who [...] testing. It will require an appointment withour telegraph repeater technician. This is not an ultrasound performed [...] the above symptoms, contact our office at [phone] and ask to speak with anurse. After hours, you can call doctors registry at [phone] OR call [facility] at [phone] ask to have the doctor production editor paged. If you consider this an emergency, dial 01-02- or go to your nearest emergency department. NEED HELP? Are you dealing with a violent or abusive relationship? Are you a victim of rape or sexual assult? Call [facility] ([place]) 24 hour Crisis Hotline: 533.655.4205 or 863-597-3600. MANUAL Your Guide to a Healthy manual is now on-line. Visit [email or web address] to download your free copy documented in this encounterDayton Children'S Hospital04-03-2025 History of Present illness Narrative* Genie Jackson [...] visit. Either the patient or their legal farm loan representative has been informed of the risks [...] 1 tablet by mouth once daily. VIT 0-IHCL-RQCLE-DHA ORAL Take by mouth. diphenhydramine HCl (UNISOM, [...] months Genie Jackson MD documented in this encounterDayton Children'S Hospital04-03-2025 NoteHNO ID: [id number] Author: GENIE JACKSON MD Service: ? Author [...] visit. Either the patient or their legal farm loan representative has been informed of the risks [...] 1 tablet by mouth once daily. VIT 1-VRWW-YSQTA-DHA ORAL Take by mouth. diphenhydramine HCl (UNISOM, [...] Anxiety Screening due on (more content not included)...[facility]04-01-2025 Telephone encounter Note* Telephone Encounter - Elayne Severino APRN.CNP - 08/02/2024 1:55 PM EDT Rx sent. Elayne Severino APRN.CNP [place] [address]-01-2025 Miscellaneous Notes* Telephone Encounter - Elayne Severino [...] advise. Steffanie Lozada RN documented in this encounterDayton Children'S Hospital04-01-2025 Telephone encounter Note * Telephone Encounter - [...] file pended EPT order. Asia Garzon RN [facility]04-01-2025 Instructions* Patient Instructions* Asia Garzon RN - [...] to prevent other STIs. documented in this encounterDayton Children'S Hospital04-01-2025 Telephone encounter Note * Telephone Encounter - Steffanie Neely RN - 08/02/2024 12:41 PM EDT 1st risk assessment form submitted 08/02/2024. Steffanie Neely RN [facility]04-01-2025 Miscellaneous Notes* Telephone Encounter - Steffanie Neely RN - 08/02/2024 12:41 PM EDT 1st risk assessment form submitted 08/02/2024. Steffanie Neely RN documented in this encounterDayton Children'S Hospital04-01-2025 Telephone encounter Note * Telephone Encounter - Elayne Severino APRN.CNP - 08/02/2024 12:31 PM EDT Flagyl sent. If STDs are left untreated there is small chance that is can lead to miscarriage. Doesshe need partner treatment? Elayne Severino APRN.CNP [facility]04-01-2025 Telephone encounter Note* Telephone Encounter - Steffanie Lozada RN - 08/02/2024 12:02 PM EDT 8w3d Patient viewed +Trich on Mychart. Asking if this could harm her baby. Please review result and advise. Steffanie Lozada RN [facility]03-31-2025 Instructions* Patient Instructions* Tammy Duke LPN - 08/01/2024 8:13 AM EDT Please select the following link to access the [facility] Your Guide to a Healthy . [email or web address] documented in this encounterDayton Children'S Hospital03-24-2025 NoteHNO ID: [id number] Author: ELAYNE SEVERINO APRN.CIERRA Service: ? Author Type: Nurse Practitioner Type: Progress Notes Filed: 08/01/2024 10:06 Note Text: Patient declined globe mounter. *History of preeclampsia with prior *History of hemorrhage. Received blood transfusion *Pt has a history of anxiety/depression diagnosed as a teenager. Recently changed from Prozac to Zoloft by Dr. Jackson. On BuSpar as well. Denies any history of depression. States she has had suicidal thoughts in the past but none since age 15. Had 2 psychiatric hospitalizations one at age 13 in [place] and the other at [facility] at age 14[address] Raymundo at the counseling center in the past but no longer in counseling. Discussed increased risks of depression during and and importance of reporting the development or worsening of symptoms should they occur. *History of hypothyroidism treated by Dr. uJan Clifton. Last thyroid labs done November 30, [...] at all I h (more content not included)...[facility]03-24-2025 History of Present illness Narrative* Elayne Severino APRN.SUPERVISOR ESTIMATOR AND DRAFTER - 07/25/2024 5:01 PM EDT Images from the original note were not included. Patient declined globe mounter. *History of preeclampsia with prior *History of hemorrhage. Received blood transfusion *Pt has a history of anxiety/depression diagnosed as a teenager. Recently changed from Prozac to Zoloft by Dr. Jackson. On BuSpar as well. Denies any history of depression. States she has had suicidal thoughts in the past but none since age 15. Had 2 psychiatric hospitalizations one at age 13 in [place] and the other at [facility] at age 14. [address] [...] harming myself has occurred to me. 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 diphenhydramine HCl (UNISOM, [...] discussed with the Patient or Patient's Authorized Internal Consultant. As applicable, any other physician, advance practice provider, medical student, or other health professional student that will be observing or involved in the sensitive examination for educational or training purposes was discussed with the Patient or Authorized Internal Consultant. The Patient or Authorized Internal Consultant has agreed to proceed with the sensitive [...] activity, CRL consistent with LMP. Elayne Severino APRN.SUPERVISOR ESTIMATOR AND DRAFTER SBIRT Janet Frank was given the 4P's [...] Your guide to a health and the Extruder Operator Helper. Patient has penicillin allergy, plan for allergy testing. Reviewed midwifery and director industrial relations services that are available. 2) Screening: Hemoglobin [...] 4 weeks or sooner prn. Elayne Severino APRN.SUPERVISOR ESTIMATOR AND DRAFTER documented in this encounterDayton Children'S Hospital03-24-2025 Telephone encounter Note * Telephone Encounter - Xavier Currie RN - 07/25/2024 4:16 PM EDT Left message for patient to return phone call to complete nurse intake questions for her upcoming appointment. Patient has an appointment with Elayne Severino for NOB appointment. [facility]03-24-2025 Miscellaneous Notes* Telephone Encounter - Xavier Currie RN - 07/25/2024 4:16 PM EDT Left message for patient to return phone call to complete nurse intake questions for her upcoming appointment. Patient has an appointment with Elayne Severino for NOB appointment. documented in this encounterDayton Children'S Hospital03-21-2025 Telephone encounter Note * Telephone Encounter - Lela Daely RN - 07/22/2024 9:39 AM EDT Pt was scheduled today with Dr Jackson for a VV to discuss medication options. [facility]03-21-2025 Miscellaneous Notes* Telephone Encounter - Lela Daley [...] that is much safer. documented in this encounterDayton Children'S Hospital03-21-2025 Telephone encounter Note * Telephone Encounter - Genie Jackson MD - 07/22/2024 9:30 AM EDT Needs office visit to discuss options Genie Jackson MD [facility]03-21-2025 Telephone encounter Note* Telephone Encounter - Karis Hess LPN - 07/22/2024 9:17 AM EDT Patient called to asking if she should continue taking the Linzess as she is 7 weeks . OB suggested that there maybe something else that she can try that is much safer. [facility]03-19-2025 Instructions* Patient Instructions* Roxana Fry APRN.CNM - 07/20/2024 1:22 PM EDT MORNING SICKNESS IN by Bev Horowitz M.D. for [employer] As you may already know, morning sickness can often be more appropriately called evening sickness or yyert-xlfnuh-oi-the-day sickness. While there are the bautista few, [...] medication, Doxylamine, is currently marketed as an kyza-bya-qftusko sleeping pill. Ask your practitioner if creating a vitamin B6/Doxylaminecombination with drvd-jld-zhxrodn medications would be safe for you. Prescription [...] as Phenergan, Compazine, Reglan documented in this encounterDayton Children'S Hospital03-19-2025 NoteHNO ID: [id number] Author: ROXANA FRY APRN.CNM Service: ? Author Type: Community Action Worker Type: Progress Notes Filed: 07/20/2024 13:31 Note [...] transfusion after due to CBC of 3. Attendance Secretary History LMP: 05/13/2024 (Exact Date), Having periods Age at Menarche: Age at First : Age at Menopause: Attendance Secretary History Comments: Sexual Activity: Yes; Male Contraception: [...] RTO 1 week for NOB Roxana Fry APRN.[facility]03-19-2025 History of Present illness Narrative* Roxana Fry APRN.[facility] - 07/20/2024 12:56 PM EDT Janet Frank [...] transfusion after due to CBC of 3. Attendance Secretary History LMP: 05/13/2024 (Exact Date), Having periods Age at Menarche: Age at First : Age at Menopause: Attendance Secretary History Comments: Sexual Activity: Yes; Male Contraception: [...] for CARL Fry APRN.CNM documented in this encounterDayton Children'S Hospital02-17-2025 Telephone encounter Note * Telephone Encounter - Ivelisse Ng APRN.CNP - 06/20/2024 3:55 PM EST The following approved medication requests have been transmitted electronically. Requested Prescriptions Signed Prescriptions Disp Refills busPIRone 30 mg tablet 60 tablet 5 Sig: Take 1 tablet by mouth two times a day. Authorizing Provider: IVELISSE NG APRN.CNP [facility]02-17-2025 Miscellaneous Notes* Telephone Encounter - Ivelisse Ng [...] Rx for 30 mg Buspar sent to [facility]. Jossy Raines LPN * Telephone Encounter - [...] her preferred pharmacy. Thank you Ivelisse Ng APRN.SUPERVISOR ESTIMATOR AND DRAFTER * Telephone Encounter - Tamanna Amaro LPN [...] advise. Tamanna Amaro LPN documented in this encounterDayton Children'S Hospital02-17-2025 Telephone encounter Note * Telephone Encounter - Jossy Raines LPN - 06/20/2024 3:52 PM EST Patient notified of recommendations, verbalizes understanding of instructions. Pt stated she needs a new Rx for 30 mg Buspar sent to [facility]. Jossy Raines LPN [facility]02-17-2025 Telephone encounter Note* Telephone Encounter - Ivelisse [...] her preferred pharmacy. Thank you Ivelisse Ng APRN.SUPERVISOR ESTIMATOR AND DRAFTER [facility]02-17-2025 Telephone encounter Note* Telephone Encounter - Tamanna [...] Please review and advise. Tamanna Amaro LPN [facility]02-12-2025 Instructions* Patient Instructions* Ivelisse Ng APRN.[facility] - 06/15/2024 1:16 PM EST Stop Prozac, start Zoloft 50 mg daily. May increase BuSpar 30 mg twice daily. Recommend establishing care with counselor. Follow up in 2 weeks. documented in this encounterDayton Children'S Hospital02-12-2025 History of Present illness Narrative* Ivelisse Ng [...] agrees to the visit: Yes Patient Location: [place] I have communicated my name and active licensure. The patient's identity and physical location wereverified at the time of this visit. Either the patient or their legal farm loan representative has been informed of the risks [...] minutes This note was partially generated using [employer] voice recognition system. Note was reviewed for accuracy. There may be minor misspellings or grammar miscues with [employer] voice recognition. documented in this encounterDayton Children'S Hospital02-12-2025 NoteHNO ID: [id number] Author: IVELISSE NG APRN.CNP Service: ? Author [...] agrees to the visit: Yes Patient Location: [place] I have communicated my name and active licensure. The patient's identity and physical location were verified at the time of this visit. Either the patient or their legal farm loan representative has been informed of the risks [...] dizziness Mood: Increased sadness and anxiety EXAM: [facility] 05/13/2024 (Exact Date) Limited exam as [...] Attitude - cooperative, easil (more content not included)...[facility] [facility] NoteHNO ID: [id number] Author: TERRELL CLOUD APRN.SUPERVISOR ESTIMATOR AND DRAFTER Service: ? Author Type: Nurse Practitioner Type: [...] - PREDNISONE 10 MG TABLET Terrell Cloud APRN.SUPERVISOR ESTIMATOR AND DRAFTER This note was partly generated using K[employer] voice recognition dictation and may contain some misspelled or inaccurate words missed on review.[facility]01-10-2025 History of Present illness Narrative* Terrell Cloud APRN.SUPERVISOR ESTIMATOR AND DRAFTER - 05/13/2024 1:34 PM EST Chief Complaint [...] APRN.CNP This note was partly generated using Rezolveon voice recognition dictation and may contain some misspelled or inaccurate words missed on review. documented in this encounterDayton Children'S Hospital01-10-2025 NoteHNO ID: [id number] Author: ELAYNE SEVERINO APRN.CNP Service: ? Author [...] transfusion after due to CBC of 3. Attendance Secretary History LMP: 05/13/2024 (Exact Date), Having periods Age at Menarche: Age at First : Age at Menopause: Attendance Secretary History Comments: Sexual Activity: Yes; Male Contraception: [...] testing/treatment Medical Decision Making Level: 3 - [facility]St[facility] of Present illness Narrative* Elayne [...] transfusion after due to CBC of 3. Attendance Secretary History LMP: 05/13/2024 (Exact Date), Having periods Age at Menarche: Age at First : Age at Menopause: Attendance Secretary History Comments: Sexual Activity: Yes; Male Contraception: [...] kits Follow up as needed. Elayne Severino APRN.SUPERVISOR ESTIMATOR AND DRAFTER Medical Decision Making: Problems: Low: Acute, uncomplicated illness or injury Risk: Low: Low risk from testing/treatment Medical Decision Making Level: 3 - Low documented in this encounterDayton Children'S Hospital12-12-2024 NoteHNO ID: [id number] Author: KENNETH MCKEON APRN.CIERRA Service: ? Author [...] of motion. Lymphadenopathy: Cervical (more content not included)...[facility]12-12-2024 History of Present illness Narrative* Kenneth Mckeon APRN.SUPERVISOR ESTIMATOR AND DRAFTER - 04/14/2024 12:09 PM EST Subjective HPI [...] of care. This note was generated using Koupon Media software. It may contain errors in wording, punctuation, or spelling. Kenneth Mckeon APRN.SUPERVISOR ESTIMATOR AND DRAFTER documented in this encounterDayton Children'S Hospital11-19-2024 Telephone encounter Note * Telephone Encounter - Terrell Cloud APRN.CNP - 03/22/2024 9:26 AM EST The following approved medication requests have been transmitted electronically. Requested Prescriptions Pending Prescriptions Disp Refills levothyroxine (SYNTHROID) 50 mcg tablet 30 tablet 11 Sig: Take 1 tablet by mouth once daily. Terrell Cloud APRN.CNP [facility]11-19-2024 Miscellaneous Notes* Telephone Encounter - Terrell Cloud [...] 22, 2024 9:18 AM documented in this encounterDayton Children'S Hospital11-19-2024 Telephone encounter Note * Telephone Encounter - [...] Duke LPN March 22, 2024 9:18 AM [facility]09-20-[facility] History of Present illness Narrative* Ivelisse Ng APRN.SUPERVISOR ESTIMATOR AND DRAFTER - 01/22/2024 10:00 AM EDT This is [...] APRN.CNP This note was partially generated using Koupon [employer] voice recognition system. Note was reviewed for accuracy. There may be minor misspellings or grammar miscues with K[employer] voice recognition. documented in this encounterDayton Children'S Hospital09-20-2024 Instructions* Patient Instructions* Ivelisse Ng APRN.CNP - 01/22/2024 9:43 AM EDT Increase Prozac 60 mg daily Continue to take all medication as prescribed Start Praneeth, take daily to help with periods. Continue to work on eating a healthy diet, increase protein, veggies, and get some form of exercise Due Dtap Follow up in 1 month Health Promotion: - Eat healthy -- go to Tout.gov to get started - Have a yearly [...] drive - Wear sunscreen documented in this encounterDayton Children'S Hospital09-19-2024 Telephone encounter Note * Telephone Encounter - Lyric Jaquez MA - 01/21/2024 12:35 PM EDT Notified via [employer] [facility] Miscellaneous Notes* Telephone Encounter - Lyric Jaquez MA - 01/21/2024 12:35 PM EDT Notified via [employer] * Telephone Encounter - Terrell Cloud APRN.CNP [...] 01/18/2024 11:48 AM EDT Pt notified via seedchangehart she needs appt for refills. Advised to call in and schedule. Lyric Jaquez MA documented in this encounterDayton Children'S Hospital09-18-2024 Telephone encounter Note * Telephone Encounter - [...] by mouth once daily. Ivelisse Ng APRN.CNP [facility]09-18-2024 Miscellaneous Notes* Telephone Encounter - Ivelisse Ng [...] daily. Ivelisse Ng APRN.CNP documented in this encounterDayton Children'S Hospital09-18-2024 Telephone encounter Note * Telephone Encounter - Terrell Cloud APRN.CNP - 01/20/2024 10:30 AM EDT Please let her know that I have sent in a refill Terrell Cloud APRN.CNP [facility]09-18-[facility]24 Telephone encounter Note* Telephone Encounter - Jossy Raines LPN - [...] Raines LPN January 20, 2024 10:24 AM [facility]09-18-[facility] Telephone encounter Note* Telephone Encounter - Koki Knott - 01/20/2024 8:43 AM EDT Patient is schedule for 01-22-24 and wants to know if she has to wait for refills until she is seen?Please let patient know. Thank you. Koki Galan [facility]09-16-2024 Telephone encounter Note* Telephone Encounter - Lyric Jaquez MA - 01/18/2024 11:48 AM EDT Pt notified via [employer] she needs appt for refills. Advised to call in and schedule. Lyric Jaquez MA [facility]09-12-2024 Telephone encounter Note* Telephone Encounter - Arina Sorenson RN - 01/14/2024 3:38 PM EDT Left message for patient to call office again. I did leave detail that I moved her appt to 1130 tomorrow and to call back to let office know that works. [employer] message sent too. Arina Sorenson RN [facility]09-12-2024 Miscellaneous Notes* Telephone Encounter - Arina Sorenson RN - 01/14/2024 3:38 PM EDT Left message for patient to call office again. I did leave detail that I moved her appt to 1130 tomorrow and to call back to let office know that works. [employer] message sent too. Arina Sorenson RN * Telephone Encounter - Arina Sorenson RN - 01/14/2024 12:04 PM EDT She is scheduled for virtual visit with tomorrow at 1245 and provider has a meeting. Left message for patient to call office to reschedule. Can use any other open time with RM tomorrow and keep asvirtual visit still. Arina Sorenson RN documented in this encounterDayton Children'S Hospital09-12-2024 Telephone encounter Note * Telephone Encounter - Arina Sorenson RN - 01/14/2024 12:04 PM EDT She is scheduled for virtual visit with RM tomorrow at 1245 and provider has a meeting. Left message for patient to call office to reschedule. Can use any other open time with RM tomorrow and keep asvirtual visit still. Arina Sorenson RN [facility]07-23-[facility] History of Present illness Narrative* Elayne Severino APRN.CIERRA - 11/24/2023 4:30 PM EDT VIRTUAL VISIT PROGRESS NOTE This is a virtual visit using [employer] Zoom Video Visit. It required patient- provider interaction for the medical decision making as documented below. I have communicated my name and active licensure. The patient's identity and physical location wereverified at the time of this visit. Either the patient or their legal farm loan representative has been informed of the risks [...] ALLERGIES No Known Allergies REVIEW OF SYSTEMS: NUCLEAR MEDICINE SUPERVISOR: denies abnormal vaginal bleeding, no vaginal discharge [...] which included preparing to see the patient, [id number] patient care, completing clinical documentation, obtaining and/or reviewing separately obtained history, and counseling and educating the patient/family/caregiver Elayne Severino APRN.CIERRA documented in this encounterDayton Children'S Hospital07-22-2024 Telephone encounter Note * Telephone Encounter - Vincent Hale RN - 11/23/2023 2:48 PM EDT Pt notified and appt scheduled to discuss results further. Vincent Hale RN [facility]07-22-[facility]24 Miscellaneous Notes* Telephone Encounter - Vincent Hale RN - 11/23/2023 2:48 PM EDT Pt notified and appt scheduled to discuss results further. Vincent Hale RN * Telephone Encounter - Vincent Hale RN - 11/23/2023 2:15 PM EDT Left message for patient to call office. [facility] message also went to patient. Vincent Hale RN * Telephone Encounter - Elayne Severino [...] today. Steffanie Lozada RN documented in this encounterDayton Children'S Hospital07-22-2024 Telephone encounter Note * Telephone Encounter - Vincent Hale RN - 11/23/2023 2:15 PM EDT Left message for patient to call office. Mychart message also went to patient. Vincent Hale RN [facility]07-[facility] Telephone encounter Note* Telephone Encounter - Elayne Severino APRN.CNP - 11/23/2023 1:16 PM EDT Please let the pt know that her US does not show polycystic ovaries but does show adenomyosis. If she wants to discuss the results more she can schedule a virtual/office visit. Elayne Severino APRN.CIERRA [facility]07-19-2024 Telephone encounter Note* Telephone Encounter - Steffanie Lozada RN - 11/20/2023 11:01 AM EDT Please review Pelvic US results. Patient called. RM was not the original ordering provider, but patient states she is no longer seeing that provider. Aware RM is out of office today. Steffanie Lozada RN [facility]07-18-2024 History of Present illness Narrative* Radha Tejada MD - 11/19/2023 11:18 PM EDT The patient presents for requested ultrasound. Full report available in the Imaging tab in Epic. Radha Tejada MD documented in this encounterDayton Children'S Hospital07-15-2024 Telephone encounter Note * Telephone Encounter - Ivelisse Ng APRN.CNP - 11/16/2023 8:28 AM EDT The following approved medication requests have been transmitted electronically. Requested Prescriptions Pending Prescriptions Disp Refills busPIRone (BUSPAR) 15 mg tablet 90 tablet 0 Sig: Take 1 tablet by mouth three times a day. Ivelisse Ng APRN.CNP [facility]07-15-2024 Miscellaneous Notes* Telephone Encounter - Ivelisse Ng APRN.CNP - 11/16/2023 8:28 AM EDT The following approved medication requests have been transmitted electronically. Requested Prescriptions Pending Prescriptions Disp Refills busPIRone (BUSPAR) 15 mg tablet 90 tablet 0 Sig: Take 1 tablet by mouth three times a day. Ivelisse Ng APRN.CNP * Telephone Encounter - Jossy Raines LPN - 11/16/2023 8:21 AM EDT [facility]-08/26/22 Labs-06/17/23 NOV- chart message sent to schedule appt. Jossy Raines LPN documented in this encounterDayton Children'S Hospital07-15-2024 Telephone encounter Note * Telephone Encounter - Jossy Raines LPN - 11/16/2023 8:21 AM EDT [facility]-08/26/22 Labs-06/17/23 NOV- chart message sent to schedule appt. Jossy Raines LPN [facility]07-11-2024 Telephone encounter Note* Telephone Encounter - Elayne Severino APRN.CNP - 11/12/2023 2:59 PM EDT I spoke with the patient regarding her recent labs and reviewed them with her. Patient still has a pending order for pelvic ultrasound, I informed her that she can call and schedule that at her convenience. Discussed possible PCOS diagnosis based on elevated DHEA level. Elayne Severino APRN.CNP [facility]07-11-2024 Miscellaneous Notes* Telephone Encounter - Elayne Severino APRN.CNP - 11/12/2023 2:59 PM EDT I spoke with the patient regarding her recent labs and reviewed them with her. Patient still has a pending order for pelvic ultrasound, I informed her that she can call and schedule that at her convenience. Discussed possible PCOS diagnosis based on elevated DHEA level. lEayne Severino APRN.CNP * Telephone Encounter - Arina Sorenson RN - 11/12/2023 1:32 PM EDT Patient also called into office asking for RM to review blood work results from 11/09. She has not heard from Dr. Yoon's office yet either regarding these. Arina Sorenson RN * Telephone Encounter - Anne Martínez - 11/12/2023 12:57 PM EDT Patient would like to speak to someone in ROOFING APPLICATOR office to go over her lab results. Please call her at [phone]. documented in this encounterDayton Children'S Hospital07-11-2024 Telephone encounter Note * Telephone Encounter - Arina Sorenson RN - 11/12/2023 1:32 PM EDT Patient also called into office asking for RM to review blood work results from 11/09. She has not heard from Dr. Yoon's office yet either regarding these. Arina Sorenson RN [facility]07-11-2024 Telephone encounter Note* Telephone Encounter - Anselmo AdamaAnne - 11/12/2023 12:57 PM EDT Patient would like to speak to someone in ROOFING APPLICATOR office to go over her lab results. Please call her at [phone]. [facility]07-[facility] Telephone encounter Note* Telephone Encounter - Genie Jackson MD - 11/12/2023 9:00 AM EDT OK to refill as ordered Genie Jackson MD [facility]07-11-2024 Miscellaneous Notes* Telephone Encounter - Genie Jackson MD - 11/12/2023 9:00 AM EDT OK to refill as ordered Genie Jackson MD * Telephone Encounter - Tess Vásquez LPN - 11/12/2023 8:35 AM EDT Patient calling has changed pharmacy to [facility], she has been out of medication for [...] 12, 2023 8:38 AM documented in this encounterDayton Children'S Hospital07-11-2024 Telephone encounter Note * Telephone Encounter - Tess Vásquez LPN - 11/12/2023 8:35 AM EDT Patient calling has changed pharmacy to [email or web address], she has been out of medication for [...] Vásquez LPN November 12, 2023 8:38 AM [facility]07-09-[facility] History of Present illness Narrative* Elayne Severino APRN.SUPERVISOR ESTIMATOR AND DRAFTER - 11/10/2023 3:35 PM EDT Police Manager offered: Patient declines. Janet is a 23 [...] transfusion after due to CBC of 3. Attendance Secretary History LMP: 11/01/2023, Having periods Age at Menarche: Age at First : Age at Menopause: Attendance Secretary History Comments: Sexual Activity: Yes; Male Contraception: [...] external genitalia normal, normal Bartholin's glands, urethra, Chatsworth's glands, no vulvar lesions, no cervical lesions, [...] year or sooner as needed Elayne Severino APRN.SUPERVISOR ESTIMATOR AND DRAFTER documented in this encounterDayton Children'S Hospital07-03-2024 History of Present illness Narrative* Rohan Yoon MD - 11/04/2023 3:30 PM EDT Gynecology Virtual Visit This is a virtual visit using [employer] Zoom Video Visit. It required patient- provider interaction for the medical decision making as documented below. I have communicated my name and active licensure. The patient's identity and physical location wereverified at the time of this visit. Either the patient or their legal farm loan representative has been informed of the risks [...] Gynecologic Surgery Department of Obstetrics and Gynecology [place], [place] 11/04/2023 documented in this encounterDayton Children'S Hospital06-05-2024 History of Present illness Narrative* Bhargavi Monqiue APRN.SUPERVISOR ESTIMATOR AND DRAFTER - 10/07/2023 11:49 AM EDT This note was created using [employer]Net[employer]uker[employer]. Subjective Janet Frank is a 23 year [...] She states that she returned to the alternative financing specialist last week to have them taken out, and the alternative financing specialist said they were not infected. Since then [...] history is provided by the patient. No high school foreign language tutor was used. Ear Pain This is a [...] up with ENT. Luba Aguilar TEACHING PROVIDER (Physician/PA/RESTAURANT LEAD) NOTE OF PERSONAL INVOLVEMENT IN CARE: I have personally seen and examined the patient and performed the medical decision-making components. I have reviewed the Advanced Practice Registered Nurse (RESTAURANT LEAD) Student's documentation and verified the findings in the note as written. Any additions or changes are noted in bold/italics. Signature: Bhargavi Monique Date: 10/07/2023 Time: 1:35 PM documented in this encounterDayton Children'S Hospital03-21-2024 Miscellaneous Notes* Telephone Encounter - Lyric Jaquez [...] capsule by mouth once daily. Ivelisse Ng APRN.SUPERVISOR ESTIMATOR AND DRAFTER * Telephone Encounter - Elisa Ashby RN - 07/23/2023 11:48 AM EDT Patient reports she hasn't had fluoxetine for a couple days and is not feeling well and not having a good day. Asking if this can be sent today? HECTOR Rodriguez. Please phone patient to let her know it was sent. [phone] * Telephone Encounter - Lyric Jaquez MA [...] NEEDS AN APPT. NOTIFIED OF THIS VIA [employer] Please advise. Thank you. Lyric Jaquez MA. documented in this encounterDayton Children'S Hospital03-04-2024 Hospital Discharge instructions Patient Education 07/06/2023 01:51:22 [...] face You have trouble talking or seeing [phone] [employer] [place] [address]. All rights reserved. This information is not intended as a substitute for professional medical care. Always follow yourhealthcare professional's instructions. Follow Up Care 07/06/2023 01:12:48 With:GENIE JACKSON MD Address: [address] [place] [address] [id number] When:2-4 days [facility] 03-04-2024 Note Discharge Instructions Thank you for allowing [facility] to assist you with your healthcare needs. The following is importantdischarge information regarding your hospital visit. Diagnosis from Today's Visit Headache Headache What to Do Next Instructions from Your Care Team No qualifying data available. Post Acute Orders No qualifying data available. You Need to Schedule the Following Appointments Follow Up with GENIE JACKSON MD When Within 2-4 days Where: [facility] [place], [place] [id number]- Allergies No Known Medication Allergies Medications Please [...] face You have trouble talking or seeing [phone] [employer]. [address] [place] [address]. All rights reserved. This information is not intended as a substitute for professional medical care. Always follow yourhealthcare professional's instructions. Additional Information VACCINATE! IT SAVES LIVES! Members of the community who have not yet received the COVID-19 vaccine and would like to receive it can visit one of [facility] vaccine clinics. There are many vaccine clinic locations within the [facility]. For locations and available times, please visit www.[email or web address].[place].gov/. It is important to note that some COVID mobile vaccine clinics are held outdoors and may be canceled in rainy or stormy conditions. To learn more about pediatric vaccinations (ages 5-11), we invite you to visit the [facility] webpage. https://www.[email or web address].org/pages/[email or web address]-[email or web address]-Artaxtljbu-[email or web address]-Dam stions.htmlTo learn more about the COVID-19 vaccine, we invite you to visit the CDC website for a list of frequently asked questions. https://www.cdc.gov/coronavirus/2019-ncov/vaccines/faq.html [facility] Patient Portal Access Instructions: Stay connected with your healthcare team and access your personal medical information anytime with the [facility] Patient Portal. If you would like a full copy of your medical records please contact the [facility] Medical Records Department Thursday through Thursday between 8a.m. and 4:30p.m. Please follow the directions below to access the portal: 1.Access the email account you provided upon registration to the hospital.2.Look for an invitation email from [facility].3.Open the email and access the invitation link: Accept Invitation to [facility]4.Fill in the required gatica to create your account. Sign into [email or web address] Powered with your username and password that you [...] you will allow to register on the [facility] Patient Portal for access to your information. You can also access the [facility] Patient Portal on the hoozin. Simply click on Health Records under iKoa and then click on the [employer] logo. HOW TO SAFELY DISPOSE OF PRESCRIPTION [...] Call your local pharmacy or go to http://[email or web address] Media/[email or web address] to find one close to you.3.Make use of household items: Use cat litter or old coffee grounds to dispose medications if other options arenot available. Mix your drugs with these household products, seal them in an airtight container andthrow it into the garbage. Call [facility]: [phone] to be sure your drugs can be [...] am aware that I should contactmy doctor. Patient/Internal Consultant Signature: Date/Time: Relationship to Patient: Witness Name/Signature: Date/Time: [facility]02-29-2024 History of Present illness Narrative * Bhargavi Monique APRN.[facility] - 07/02/2023 8:42 AM EST This note [...] R51.9 Bhargavi Monique APRN.CIERRA documented in this encounterDayton Children'S Hospital02-15-2024 Miscellaneous Notes* Telephone Encounter - Jossy Raines [...] you. Ivelisse Ng APRN.CIERRA documented in this encounterDayton Children'S Hospital02-14-2024 Miscellaneous Notes* Telephone Encounter - Jossy Couch [...] states she had been referred to the NUCLEAR MEDICINE SUPERVISOR dept but they told her to contact PCP as labwork can be orderedto confirm if or not. In talking with pt, she states she is not trying to get butis not using any protection or control at this time. [facility] she was on the Depoprovera shot for about 6 years but last shot was in July. Pt does not have an established NUCLEAR MEDICINE SUPERVISOR provider as she used to go to [facility] in [place] but that office has closed. In reviewing [...] for sure will need to establish with ROOFING APPLICATOR. Pt plans on coming in for lab work tomorrow. Please place order for testing as well as yearly blood work so it can be completed prior to yearly appt next week with Ivelisse Ng. Call pt only if problem, further instructions or needs to be fasting for any labs. documented in this encounterDayton Children'S Hospital02-13-2024 Miscellaneous Notes* Telephone Encounter - Lyric Jaquez Ma - 06/16/2023 4:24 PM EST Pt notified. Lyric Jaquez Ma * Telephone Encounter - Genie Jackson MD - 06/16/2023 3:58 PM EST Yes, she should check with Attendance Secretary Genie Jackson MD * Telephone Encounter - Annemarie Sotelo Ma - 06/16/2023 1:27 PM EST Reviewed with NUCLEAR MEDICINE SUPERVISOR Nurse, who states she reached out to pt due to TE on 06/12/23. She tried calling ptbut was hung up on. Does pt need to reach out to NUCLEAR MEDICINE SUPERVISOR to schedule an appt? Please advise. Annemarie [...] calling: self Call patient at: on cell [phone] (cell) Was an appointment scheduled: No Closing statement: Results or non-symptom based questions: Thank you for calling [facility], your call will be returned within the next business day. Luisana Snow documented in this encounterDayton Children'S Hospital02-09-2024 Miscellaneous Notes* Telephone Encounter - Elisa Ashby, [...] hasn't stopped yet. Notified nurse Zulema, in NUCLEAR MEDICINE SUPERVISOR, and Zulema agreeable to call patient. documented in this encounterDayton Children'S Hospital11-30-2023 Miscellaneous Notes* Telephone Encounter - Terrell Cloud [...] none Lyric Jaquez Ma documented in this encounterDayton Children'S Hospital11-24-2023 Miscellaneous Notes* Telephone Encounter - Genie Jackson MD - 03/27/2023 10:56 AM EST OK to refill as ordered Genie Jackson MD * Telephone Encounter - Jossy Raines LPN - 03/27/2023 8:58 AM EST [facility]-08/26/22 Labs-10/22/22 NOV-none Jossy Raines LPN documented in this encounterDayton Children'S Hospital09-13-2023 Miscellaneous Notes* Telephone Encounter - Terrell Cloud APRN.SUPERVISOR ESTIMATOR AND DRAFTER - 01/14/2023 11:39 AM EDT The following [...] Patient should contact Prescriber first Terrell Cloud APRN.SUPERVISOR ESTIMATOR AND DRAFTER * Telephone Encounter - Jeana Frey RN [...] of Last Labs: 10/22/2022 documented in this encounterDayton Children'S Hospital06-01-2023 Miscellaneous Notes* Telephone Encounter - Hailey Gillespie [...] Macrobid. Hailey Gillespie RN documented in this encounterDay[facility]30-[facility] History of Present illness Narrative* Ruth Vallejo PA-C - 09/30/2022 2:04 PM EDT This note was created using [employer]Net[employer]uk[employer]. Subjective Janet Frank is a 22 year [...] CULTURE Ruth Vallejo PA-C documented in this encounterDayton [facility]05-06-2023 History of Present illness Narrative* Marjorie Sanchez APRN.SUPERVISOR ESTIMATOR AND DRAFTER - 09/06/2022 1:35 PM EDT Patient came [...] with this care plan. documented in this encounterDayton Children'S Hospital04-25-2023 Instructions* Patient Instructions* Terrell Cloud APRN.CNP - 08/26/2022 1:33 PM EDT Schedule EMG, if positive for carpal tunnel syndrome, I will refer to Dr Walton Recheck potassium at end of week Terrell Cloud APRN.CNP documented in this encounterDayton Children'S Hospital04-25-2023 History of Present illness Narrative* Terrell Cloud APRN.CNP - 08/26/2022 1:14 PM EDT Chief Complaint Patient presents with: ER F/U: 08/22/22 [facility]; abdominal pain HPI Janet Frank is a 22 year old female who presents here today for ER Follow Up. HOSPITAL/ER FOLLOW UP: Reason for visit: Abdominal pain, nausea and vomiting. Vomiting occurring after consuming meals. Also loose stools. Concerned due to being on penicillin for mouth infection. Which facility: [facility] Date of visit: 08/22/2022 Diagnosis: 1. Abdominal [...] which included preparing to see the patient, [id number] patient care, completing clinical documentation, obtaining and/or reviewing separately obtained history, performing a medically appropriate examination, counseling and educating the pat ient/family/caregiver, and ordering medications, tests, or procedures. This note was partly generated using [employer] voice recognition dictation and may contain some misspelled or inaccurate words missed on review. documented in this encounterDayton Children'[facility] Hospital03-28-2023 Miscellaneous Notes* Telephone Encounter - Chaya Reid MA - 07/29/2022 9:30 AM EDT Patient phones requesting refills as follows: Requested Prescriptions Pending Prescriptions Disp Refills esomeprazole (NEXIUM) 40 mg capsule 60 capsule 1 Sig: Take 1 capsule by mouth twice daily. 1/2 hr before meal. Please review and advise. Chaya Reid MA documented in this encounterDayton Children'S Hospital03-22-2023 Miscellaneous Notes* Telephone Encounter - Terrell Cloud [...] you. Sonia Tamayo LPN documented in this encounterDayton Children'S Hospital01-05-2023 Miscellaneous Notes* Telephone Encounter - Maria Ines Henning Ma - 05/08/2022 9:00 AM EST Patient phones requesting refills as follows: Requested Prescriptions Pending Prescriptions Disp Refills esomeprazole (NEXIUM) 40 mg capsule 60 capsule 1 Sig: Take 1 capsule by mouth twice daily. 1/2 hr before meal. Please review and advise. Maria Ines Henning Ma documented in this encounterDayton Children'S Hospital11-04-2022 History of Present illness Narrative* Genie Jackson [...] Past Histories independently gathered by the clinical production support supervisor and the remaining scribed note accurately describes my personal service to the patient. Genie Jackson MD The documentation for this note was completed by Lyric Jaquez Ma acting as scribe for Genie Jackson MD. March 07, 2022 3:26 PM. Lyric Jaquez Ma documented in this encounterDayton Children'S Hospital10-17-2022 Miscellaneous Notes* Telephone Encounter - Maria Ines Henning Ma - 02/17/2022 8:02 AM EDT Patient phones requesting refills as follows: Requested Prescriptions Pending Prescriptions Disp Refills esomeprazole (NEXIUM) 40 mg capsule 60 capsule 1 Sig: Take 1 capsule by mouth twice daily. 1/2 hr before meal. Please review and advise. Maria Ines Henning Ma documented in this encounterDayton Children'S Hospital10-12-2022 History of Present illness Narrative* Michelle Hayes, RESTAURANT LEAD.SUPERVISOR ESTIMATOR AND DRAFTER - 02/12/2022 2:04 PM EDT 02/12/2022 Patient [...] MG-POTASSIUM CLAVULANATE 125 MG TABLET Michelle Hayes APRN.SUPERVISOR ESTIMATOR AND DRAFTER Prescription instructions reviewed with patient as applicable. [...] which included preparing to see the patient, [id number] patient care, completing clinical documentation, obtaining and/or reviewing separately obtained history, performing a medically appropriate examination, counseling and educating the pat ient/family/caregiver, and ordering medications, tests, or procedures. documented in this encounterDayton Children'S Hospital10-05-2022 History of Present illness Narrative* Ruth Vallejo PA-C - 02/05/2022 12:21 PM EDT This note was created using [employer]uk[employer]. Subjective Janet Frank is a 22 year [...] Ruth Vallejo PA-C documented in this encounterCleveland [id number] History of Present illness Narrative* Ruth Vallejo PA-C - 02/02/2022 11:58 AM EDT This note was created using [employer]uk[employer]. Subjective Janet Frank is a 22 year [...] persist. MELVIN Huber PA-C documented in this encounterDayton Children'S Hospital08-23-2022 History of Present illness Narrative* Ruth Vallejo PA-C - 12/24/2021 4:51 PM EDT This note was created using [employer]uk[employer]. Subjective Janet Frank is a 21 year old female. HPI Patient presents with left wrist pain for 2 months. 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 She denies injury [...] LEFT Ruth Vallejo PA-C documented in this encounterDayton Children'S Hospital08-23-2022 History of Present illness Narrative* Xavier Gonzales [...] 24, 2021 2:25 PM documented in this encounterDayton Children'S Hospital08-23-2022 Miscellaneous Notes* Telephone Encounter - Madina Duke LPN - 12/24/2021 9:17 AM EDT Please review and advise pt. PT is out of medication. Madina Duke LPN * Telephone Encounter - Anastasia Berg - 12/18/2021 12:45 PM EDT Patient has been out of medication for past 3 days. documented in this encounterDayton Children'S Hospital08-04-2022 Miscellaneous Notes* Telephone Encounter - Lyric Jaquez Ma - 12/05/2021 9:20 AM EDT Pt notified and voiced understanding. Lyric Jaquez Ma * Telephone Encounter - Terrell Cloud APRN.CNP - 12/05/2021 7:31 AM EDT Patient may take Prozac and Tizanidine together. Terrell Cloud APRN.CNP * Telephone Encounter - Anastasia Berg - 12/04/2021 3:23 PM EDT Janet Frank is calling Genie Jackson MD today asking if she can take the Prozac and tizanidine together? Please advise and return her call at [phone] documented in this encounterDayton Children'S Hospital07-27-2022 Miscellaneous Notes* Telephone Encounter - Terrell Cloud [...] advise. Jossy Raines LPN documented in this encounterDayton Children'S Hospital07-26-2022 History of Present illness Narrative* Genie Jackson [...] had these in the past. Working at [employer]. Thyroid: Taking Synthroid 50 mcg daily. TSH [...] AM. Lyric Jaquez Ma documented in this encounterDayton Children'S Hospital05-25-2022 Miscellaneous Notes* Telephone Encounter - Annemarie Sotelo Ma - 09/25/2021 3:47 PM EDT See pt message and advise. Annemarie Sotelo Ma documented in this encounterDayton Children'S Hospital05-25-2022 History of Present illness Narrative* Cori Ramesh [...] which included preparing to see the patient, [id number] patient care, completing clinical documentation, obtaining and/or reviewing separately obtained history, performing a medically appropriate examination, counseling and educating the pat ient/family/caregiver, ordering medications, tests, or procedures, communicating with other HCPs (not separately reported), independently interpreting results (not separately reported), communicatingresults to the patient/family/caregiver, and care coordination (not separately reported). Cori Ramesh APRN.CIERRA documented in this encounterDayton Children'S Hospital05-19-2022 Miscellaneous Notes* Telephone Encounter - Jossy Raines LPN - 09/19/2021 3:41 PM EDT Patient notified of referral, verbalizes understanding of instructions. Jossy Raines LPN * Telephone Encounter - Gneie Jackson MD - 09/19/2021 3:24 PM EDT [...] review. Kendra Oviedo RN documented in this encounterDayton Children'S Hospital05-17-2022 History of Present illness Narrative* Terrell Cloud APRN.SUPERVISOR ESTIMATOR AND DRAFTER - 09/17/2021 1:54 PM EDT Chief Complaint [...] a patient relationship with Dr Ybarra at [facility]. She will call to schedule an appointment at their clinic. Check CBC. - CONSULT TO ENT 2. Hypothyroidism, unspecified type - ICD9: 244.9, ICD10: E03.9 - Instructed patient on importance of taking on an empty stomach either first thing in the morning or at bedtime. - check TSH today - continue current dose of Synthroid 0.050 mg Terrell Cloud APRN.SUPERVISOR ESTIMATOR AND DRAFTER This note was partly generated using [employer] voice recognition dictation and may contain some misspelled or inaccurate words missed on review. documented in this encounterDayton Children'S Hospital04-22-2022 Miscellaneous Notes* Telephone Encounter - Lyric Jaquez Ma - 08/23/2021 9:29 AM EDT Pt notified via [email or web address] that she is not able to restart Adipex until October 2021. Last rx given in Apr 2021. Also notified she would need an appointment to discuss restarting the medication. Lyric Jaquez Ma documented in this encounterDayton Children'S Hospital04-08-2022 Miscellaneous Notes* Telephone Encounter - Adry Medina [...] patient. Hanna Corcoran Pss documented in this encounterDayton Children'S Hospital03-22-2017 History of Past illness Narrative* Problem Noted Date Resolved Date Physical exam 07/23/2016 10/12/2017 documented as of this encounter (statuses as of 08/09/2021) [facility] Narrative* Problem Noted Date Resolved Date Physical exam 07/23/2016 10/12/2017 documented as of this encounter (statuses as of 08/23/2021) [address]22-2017 History of Past illness Narrative* Problem Noted Date Resolved Date Physical exam 07/23/2016 10/12/2017 documented as of this encounter (statuses as of 09/17/2021) [address]22-2017 History of Past illness Narrative* Problem Noted Date Resolved Date Physical exam 07/23/2016 10/12/2017 documented as of this encounter (statuses as of 10/01/2021) [address] History of Past illness Narrative* Problem Noted Date Resolved Date Physical exam 07/23/2016 10/12/2017 documented as of this encounter (statuses as of 10/08/2021) [address]22-2017 History of Past illness Narrative* Problem Noted Date Resolved Date Physical exam 07/23/2016 10/12/2017 documented as of this encounter (statuses as of 11/26/2021) [address]22-2017 History of Past illness Narrative* Problem Noted Date Resolved Date Physical exam 07/23/2016 10/12/2017 documented as of this encounter (statuses as of 11/27/2021) [address]22-2017 History of Past illness Narrative* Problem Noted Date Resolved Date Physical exam 07/23/2016 10/12/2017 documented as of this encounter (statuses as of 12/05/2021) [address]22-2017 History of Past illness Narrative* Problem Noted Date Resolved Date Physical exam 07/23/2016 10/12/2017 documented as of this encounter (statuses as of 12/19/2021) [address]22-2017 History of Past illness Narrative* Problem Noted Date Resolved Date Physical exam 07/23/2016 10/12/2017 documented as of this encounter (statuses as of 12/20/2021) [address]22-2017 History of Past illness Narrative* Problem Noted Date Resolved Date Physical exam 07/23/2016 10/12/2017 documented as of this encounter (statuses as of 12/24/2021) [address]22-2017 History of Past illness Narrative* Problem Noted Date Resolved Date Physical exam 07/23/2016 10/12/2017 documented as of this encounter (statuses as of 12/24/2021) [address]22-2017 History of Past illness Narrative* Problem Noted Date Resolved Date Physical exam 07/23/2016 10/12/2017 documented as of this encounter (statuses as of 02/02/2022) [address]22-2017 History of Past illness Narrative* Problem Noted Date Resolved Date Physical exam 07/23/2016 10/12/2017 documented as of this encounter (statuses as of 02/05/2022) [address]22-2017 History of Past illness Narrative* Problem Noted Date Resolved Date Physical exam 07/23/2016 10/12/2017 documented as of this encounter (statuses as of 02/12/2022) [address]22-2017 History of Past illness Narrative* Problem Noted Date Resolved Date Physical exam 07/23/2016 10/12/2017 documented as of this encounter (statuses as of 02/17/2022) [address]22-2017 History of Past illness Narrative* Problem Noted Date Resolved Date Physical exam 07/23/2016 10/12/2017 documented as of this encounter (statuses as of 03/07/2022) [address] History of Past illness Narrative* Problem Noted Date Resolved Date Physical exam 07/23/2016 10/12/2017 documented as of this encounter (statuses as of 05/09/2022) [address]22-2017 History of Past illness Narrative* Problem Noted Date Resolved Date Physical exam 07/23/2016 10/12/2017 documented as of this encounter (statuses as of 07/23/2022) [address]22[address]2017 History of Past illness Narrative* Problem Noted Date Resolved Date Physical exam 07/23/2016 10/12/2017 documented as of this encounter (statuses as of 07/23/2022) [address]22-2017 History of Past illness Narrative* Problem Noted Date Resolved Date Physical exam 07/23/2016 10/12/2017 documented as of this encounter (statuses as of 07/29/2022) [address]22-2017 History of Past illness Narrative* Problem Noted Date Resolved Date Physical exam 07/23/2016 10/12/2017 documented as of this encounter (statuses as of 08/26/2022) [address]22[address]2017 History of Past illness Narrative* Problem Noted Date Resolved Date Physical exam 07/23/2016 10/12/2017 documented as of this encounter (statuses as of 09/06/2022) [address]2017 History of Past illness Narrative* Problem Noted Date Resolved Date Physical exam 07/23/2016 10/12/2017 documented as of this encounter (statuses as of 10/01/2022) [address]2017 History of Past illness Narrative* Problem Noted Date Resolved Date Physical exam 07/23/2016 10/12/2017 documented as of this encounter (statuses as of 10/02/2022) [address]2017 History of Past illness Narrative* Problem Noted Date Diagnosed Date Resolved Date Physical exam 07/23/2016 10/12/2017 documented as of this encounter (statuses as of 01/14/2023) [address]2017 History of Past illness Narrative* Problem Noted Date Diagnosed Date Resolved Date Physical exam 07/23/2016 10/12/2017 documented as of this encounter (statuses as of 03/27/2023) [address]2017 History of Past illness Narrative* Problem Noted Date Diagnosed Date Resolved Date Physical exam 07/23/2016 10/12/2017 documented as of this encounter (statuses as of 04/02/2023) [address]2017 History of Past illness Narrative* Problem Noted Date Diagnosed Date Resolved Date Physical exam 07/23/2016 10/12/2017 documented as of this encounter (statuses as of 06/12/2023) [address]2017 History of Past illness Narrative* Problem Noted Date Diagnosed Date Resolved Date Physical exam 07/23/2016 10/12/2017 documented as of this encounter (statuses as of 06/16/2023) [address]2017 History of Past illness Narrative* Problem Noted Date Diagnosed Date Resolved Date Physical exam 07/23/2016 10/12/2017 documented as of this encounter (statuses as of 06/17/2023) [address]2017 History of Past illness Narrative* Problem Noted Date Diagnosed Date Resolved Date Physical exam 07/23/2016 10/12/2017 documented as of this encounter (statuses as of 06/18/2023) [address]2017 History of Past illness Narrative* Problem Noted Date Diagnosed Date Resolved Date Physical exam 07/23/2016 10/12/2017 documented as of this encounter (statuses as of 07/02/2023) [facility]* Problem Noted Date Diagnosed Date Resolved Date Physical exam 07/23/2016 10/12/2017 documented as of this encounter (statuses as of 07/23/2023) [facility] Narrative* Problem Noted Date Diagnosed Date Resolved Date Physical exam 07/23/2016 10/12/2017 documented as of this encounter (statuses as of 07/23/2023) [facility] Plan note No data available for this section [facility] Evaluation note* Diagnosis Tension headache documented in this encounter [facility] note* Diagnosis Tonsil stone- Primary Other chronic disease of tonsils and adenoids Hypothyroidism, unspecified type documented in this encounter [facility] note* Diagnosis Fatigue, unspecified type- Primary documented in this encounter [facility] note* Diagnosis Burping- Primary Flatulence, eructation, and gas pain Gastroesophageal reflux disease, unspecified whether esophagitis present Early satiety GERD without esophagitis Esophageal reflux documented in this encounter [facility] note* Diagnosis Recurrent major depressive disorder, remission status unspecified (HCC)- Primary documented in this encounter [facility] note* Diagnosis RUDOLPH (generalized anxiety disorder) Generalized anxiety disorder Panic attack Panic disorder without agoraphobia documented in this encounter [facility] note* Diagnosis Gastroesophageal reflux disease, unspecified whether esophagitis present- Primary documented in this encounter [facility] note* Diagnosis GERD without esophagitis Esophageal reflux documented in this encounter [facility] note* Diagnosis GERD without esophagitis Esophageal reflux documented in this encounter [facility] note* Diagnosis Left wrist pain- Primary Pain in joint, forearm documented in this encounter [facility] note* Diagnosis Viral URI with cough- Primary Acute upper respiratory infections of unspecified site Bacterial conjunctivitis Other conjunctivitis documented in this encounter [facility] note* Diagnosis Acute otitis media, left- Primary Unspecified otitis media documented in this encounter [facility] note* Diagnosis Frontal sinus pain- Primary Other diseases of nasal cavity and sinuses Left ear pain Otalgia, unspecified documented in this encounter [facility] note* Diagnosis GERD without esophagitis Esophageal reflux documented in this encounter [facility] noteNo assessment information availableWSalem Regional [facility] Work Phone: [facility]* Diagnosis Recurrent major depressive disorder, remission status unspecified (HCC) documented in this encounter [facility] note* Diagnosis GERD without esophagitis Esophageal reflux documented in this encounter [facility] note* Diagnosis RUDOLPH (generalized anxiety disorder) Generalized anxiety disorder Panic attack Panic disorder without agoraphobia documented in this encounter [facility] note* Diagnosis RUDOLPH (generalized anxiety disorder) Generalized anxiety disorder Panic attack Panic disorder without agoraphobia documented in this encounter [facility] note* Diagnosis Hypokalemia- Primary Hypopotassemia Nausea and vomiting, unspecified vomiting type Hospital discharge follow-up Other follow-up examination Paresthesia Disturbance of skin sensation Hand pain, left Pain in limb documented in this encounter [facility] note* Diagnosis Confusion- Primary Unspecified psychosis documented in this encounter [facility] note* Diagnosis Acute UTI- Primary Urinary tract infection, site not specified documented in this encounter [facility] note* Diagnosis Chronic constipation Unspecified constipation documented in this encounter [facility] note* Diagnosis Hypothyroidism, unspecified type documented in this encounter [facility] note* Diagnosis RUDOLPH (generalized anxiety disorder) Generalized anxiety disorder Panic attack Panic disorder without agoraphobia documented in this encounter [facility] note* Diagnosis Irregular menses- Primary Irregular menstrual cycle Vaginal bleeding Other specified noninflammatory disorder of vagina documented in this encounter [facility] note* Diagnosis Visual disturbance- Primary Unspecified visual disturbance Dizziness Dizziness and giddiness Headache, unspecified headache type documented in this encounter [facility] note* Diagnosis Recurrent major depressive disorder, remission status unspecified (HCC) documented in this encounter [facility] note* Diagnosis Recurrent major depressive disorder, remission status unspecified (HCC) documented in this encounter [facility] note* Diagnosis Nipple pain- Primary Mastodynia Ear pain, bilateral documented in this encounter [facility] note* Diagnosis Irregular menses- Primary Irregular menstrual cycle Acquired hypothyroidism Unspecified hypothyroidism Class II obesity Menorrhagia with irregular cycle Excessive or frequent menstruation Dysmenorrhea documented in this encounter [facility] note* Diagnosis Encounter for gynecological examination (general) (routine) without abnormal findings- Primary Screening for cervical cancer Screening for malignant neoplasm of the cervix Encounter for screening for human papillomavirus (HPV) Special screening examination for human papillomavirus (HPV) documented [facility] this encounter [facility]* Diagnosis Chronic constipation Unspecified constipation documented [facility] this encounter [facility]* Diagnosis Chronic constipation Unspecified constipation documented in this encounter [facility]* Diagnosis RUDOLPH (generalized anxiety disorder) Generalized anxiety disorder Panic attack Panic disorder without agoraphobia [facility]* Diagnosis Irregular menses- Primary Irregular menstrual cycle Class II obesity Menorrhagia with irregular cycle Excessive or frequent menstruation Dysmenorrhea Adenomyosis of the uterus documented in this encounter [facility]* Diagnosis Adenomyosis- Primary Endometriosis of uterus documented in this encounter [facility]* Diagnosis RUDOLPH (generalized anxiety disorder) Generalized anxiety disorder Panic attack Panic disorder without agoraphobia documented [facility] this encounter [facility]* Diagnosis Recurrent major depressive disorder, remission status unspecified (HCC) RUDOLPH (generalized anxiety disorder) Generalized anxiety disorder Panic attack Panic disorder without agoraphobia documented [facility] this encounter [facility]* Diagnosis RUDOLPH (generalized anxiety disorder) Generalized anxiety disorder Panic attack Panic disorder without agoraphobia Recurrent major depressive disorder, remission status unspecified (HCC) documented in this encounter [facility]* Diagnosis Recurrent major depressive disorder, remission status unspecified (HCC) Wellness examination- Primary Chronic constipation Unspecified constipation Hypothyroidism, unspecified type Anxiety with depression Gastroesophageal reflux disease, unspecified whether esophagitis present documented in this encounter [facility] note* Diagnosis Encounter for contraceptive management, unspecified type Anxiety with depression Chronic constipation Unspecified constipation Hypothyroidism, unspecified type Gastroesophageal reflux disease, unspecified whether esophagitis present documented [facility] this encounter [facility] [facility] Diagnosis Left wrist pain Pain in joint, forearm [facility] Diagnosis Anxiety with depression [facility] Diagnosis Hypothyroidism, unspecified type [facility]* Diagnosis Sore throat- Primary Acute pharyngitis Viral illness Unspecified viral infection, in conditions classified elsewhere and of unspecified site [facility] Diagnosis Encounter for preconception consultation- Primary Other procreative management counseling and advice documented in this encounter [facility] note* Diagnosis Tension headache- Primary documented in this encounter [facility] note* Diagnosis Anxiety with depression- Primary documented in this encounter [facility] note* Diagnosis Anxiety with depression- Primary documented in this encounter [facility] note* Diagnosis Missed menses- Primary Absence of [...] and vomiting during documented in this encounter [facility] note* Diagnosis Missed menses- Primary Absence of menstruation Nausea and vomiting during (HCC) 6 weeks gestation of ([facility]) state, incidental Encounter for supervision of normal intrauterine in multigravida, antepartum (HCC)- Primary with uncertain dates, antepartum ([facility]) state, incidental History of hemorrhage Personal history of diseases of blood and blood-forming organs Screen for STD (sexually transmitted disease) Screening examination for venereal disease 8 weeks gestation of ([facility]) state, incidental Hx of preeclampsia, prior , currently (HCC) with other poor obstetric history Hypothyroidism, unspecified type BMI 38.0-38.9,adult Body Mass Index 38.0-38.9, adult documented in this encounter [facility] note* Diagnosis Missed menses- Primary Absence of menstruation Nausea and vomiting during (HCC) 6 weeks gestation of ([facility]) state, incidental Trichomoniasis- Primary Trichomoniasis, unspecified [facility] Diagnosis Missed menses- Primary Absence of menstruation Nausea and vomiting during ([facility]) 6 weeks gestation of ([facility]) state, incidental RUDOLPH (generalized anxiety disorder)- Primary Generalized anxiety disorder Panic attack Panic disorder without agoraphobia Chronic constipation Unspecified constipation [facility] Diagnosis Missed menses- Primary Absence of menstruation Nausea and vomiting during ([facility]) 6 weeks gestation of ([facility]) state, incidental Encounter for screening for malformation using ultrasound ([facility])- Primary 12 weeks gestation of ([facility]) state, incidental Encounter for (NT) nuchal translucency scan ([facility]) Other specified screening [facility] Diagnosis Missed menses- Primary Absence of menstruation Nausea and vomiting during ([facility]) 6 weeks gestation of ([facility]) state, incidental Supervision of other high risk pregnancies, second trimester ([facility])- Primary 12 weeks gestation of ([facility]) state, incidental Obesity in ([facility]) Obesity complicating , childbirth, or the puerperium, unspecified as to episode of care or not applicable Rubella non-immune status, antepartum ([facility]) Other specified complication, antepartum Hx of preeclampsia, prior , currently ([facility]) with other poor obstetric history History of hemorrhage Personal history of diseases of blood and blood-forming organs Hypothyroidism, unspecified type Engages in nicotine containing substance vaping Anxiety and depression Dysthymic disorder Trichomoniasis Trichomoniasis, unspecified [facility] Diagnosis Missed menses- Primary Absence of menstruation Nausea and vomiting during ([facility]) 6 weeks gestation of ([facility]) state, incidental RUDOLPH (generalized anxiety disorder) Generalized anxiety disorder Panic attack Panic disorder without agoraphobia [facility] Diagnosis Missed menses- Primary Absence of menstruation Nausea and vomiting during ([facility]) 6 weeks gestation of ([facility]) state, incidental RUDOLPH (generalized anxiety disorder) Generalized anxiety disorder Panic attack Panic disorder without agoraphobia [facility] Diagnosis Supervision of other high risk [...] Problem(s): Hx of preeclampsia, prior , currently ([facility]) Orders: OBSTETRIC ULTRASOUND WHI; Standing * Assessment [...] NAAT GONORRHEA/CHLAMYDIA NAAT documented in this encounter [facility] note* Diagnosis Rubella non-immune status, antepartum (HCC)- Primary Other specified complication, antepartum Supervision of other high risk pregnancies, second trimester ([facility])- Primary Hx of preeclampsia, prior , currently ([facility]) with other poor obstetric history Obesity in ([facility]) Obesity complicating , childbirth, or the puerperium, unspecified as to episode of care or not applicable Hypothyroidism, unspecified type 16 weeks gestation of ([facility]) state, incidental Trichomoniasis Trichomoniasis, unspecified Screen for STD (sexually transmitted disease) Screening examination for venereal disease documented in this encounter [facility] note* Diagnosis Supervision of other high risk pregnancies, second trimester (HCC)- Primary Hx of preeclampsia, prior , currently ([facility]) with other poor obstetric history Obesity in ([facility]) Obesity complicating , childbirth, or the puerperium, unspecified as to episode of care or not applicable Hypothyroidism, unspecified type 16 weeks gestation of ([facility]) state, incidental Trichomoniasis Trichomoniasis, unspecified Screen for STD (sexually transmitted disease) Screening examination for venereal disease Encounter for screening for malformation ([facility])- Primary Supervision of other high risk pregnancies, second trimester ([facility]) Hx of preeclampsia, prior , currently ([facility]) with other poor obstetric history Obesity in ([facility]) Obesity complicating , childbirth, or the puerperium, unspecified as to episode of care or not applicable Hypothyroidism, unspecified type documented in this encounter [facility] note* Diagnosis Supervision of other high risk pregnancies, second trimester (HCC)- Primary Hx of preeclampsia, prior , currently ([facility]) with other poor obstetric history Obesity in (HCC) Obesity complicating , childbirth, or the puerperium, unspecified as to episode of care or not applicable Hypothyroidism, unspecified type 16 weeks gestation of (HCC) state, incidental Trichomoniasis Trichomoniasis, unspecified Screen for STD (sexually transmitted disease) Screening examination for venereal disease Supervision of other high risk pregnancies, second trimester ([facility])- Primary Obesity in ([facility]) Obesity complicating , childbirth, or the puerperium, unspecified as to episode of care or not applicable Hypothyroidism, unspecified type Hx of preeclampsia, prior , currently ([facility]) with other poor obstetric history 20 weeks gestation of ([facility]) state, incidental documented in this encounter [facility] note* Diagnosis Supervision of other high risk pregnancies, second trimester ([facility])- Primary Hx of preeclampsia, prior , currently ([facility]) with other poor obstetric history Obesity in ([facility]) Obesity complicating , childbirth, or the puerperium, unspecified as to episode of care or not applicable Hypothyroidism, unspecified type 16 weeks gestation of ([facility]) state, incidental Trichomoniasis Trichomoniasis, unspecified Screen for STD (sexually transmitted disease) Screening examination for venereal disease Obesity in ([facility])- Primary Obesity complicating , childbirth, or the puerperium, unspecified as to episode of care or not applicable 8 weeks gestation of ([facility]) state, incidental documented in this encounter [facility] note* Diagnosis Supervision of other high risk pregnancies, second trimester ([facility])- Primary Hx of preeclampsia, prior , currently ([facility]) with other poor obstetric history Obesity in ([facility]) Obesity complicating , childbirth, or the puerperium, unspecified as to episode of care or not applicable Hypothyroidism, unspecified type 16 weeks gestation of ([facility]) state, incidental Trichomoniasis Trichomoniasis, unspecified Screen for STD (sexually transmitted disease) Screening examination for venereal disease Proteinuria complicating in second trimester ([facility])- Primary documented in this encounter [facility] note* Diagnosis Abnormal results of thyroid function studies- Primary Nonspecific abnormal results of thyroid function study Supervision of other high risk pregnancies, second trimester (HCC)- Primary Hx of preeclampsia, prior , currently ([facility]) with other poor obstetric history Obesity in ([facility]) Obesity complicating , childbirth, or the puerperium, unspecified as to episode of care or not applicable Hypothyroidism, unspecified type 16 weeks gestation of ([facility]) state, incidental Trichomoniasis Trichomoniasis, unspecified Screen for STD (sexually transmitted disease) Screening examination for venereal disease [facility] Diagnosis Supervision of other high risk pregnancies, second trimester (HCC)- Primary Hx of preeclampsia, prior , currently ([facility]) with other poor obstetric history Obesity in ([facility]) Obesity complicating , childbirth, or the puerperium, unspecified as to episode of care or not applicable Hypothyroidism, unspecified type 16 weeks gestation of ([facility]) state, incidental Trichomoniasis Trichomoniasis, unspecified Screen for STD (sexually transmitted disease) Screening examination for venereal disease Supervision of other high risk pregnancies, second trimester (HCC)- Primary 25 weeks gestation of ([facility]) state, incidental Screening for diabetes mellitus Hx of preeclampsia, prior , currently ([facility]) with other poor obstetric history Hypothyroidism, unspecified type Obesity in ([facility]) Obesity complicating , childbirth, or the puerperium, unspecified as to episode of care or not applicable documented in this encounter [facility] note* Diagnosis Supervision of other high risk pregnancies, second trimester (HCC)- Primary Hx of preeclampsia, prior , currently ([facility]) with other poor obstetric history Obesity in ([facility]) Obesity complicating , childbirth, or the puerperium, unspecified as to episode of care or not applicable Hypothyroidism, unspecified type 16 weeks gestation of ([facility]) state, incidental Trichomoniasis Trichomoniasis, unspecified Screen for STD (sexually transmitted disease) Screening examination for venereal disease Anxiety with depression documented in this encounter [facility] note* Diagnosis Supervision of other high risk pregnancies, second trimester ([facility])- Primary Hx of preeclampsia, prior , currently ([facility]) with other poor obstetric history Obesity in ([facility]) Obesity complicating , childbirth, or the puerperium, unspecified as to episode of care or not applicable Hypothyroidism, unspecified type 16 weeks gestation of ([facility]) state, incidental Trichomoniasis Trichomoniasis, unspecified Screen for STD (sexually transmitted disease) Screening examination for venereal disease Hx of preeclampsia, prior , currently ([facility]) with other poor obstetric history documented [facility] Diagnosis Supervision of other high risk pregnancies, second trimester ([facility])- Primary Hx of preeclampsia, prior , currently ([facility]) with other poor obstetric history Obesity in ([facility]) Obesity complicating , childbirth, or the puerperium, unspecified as to episode of care or not applicable Hypothyroidism, unspecified type 16 weeks gestation of ([facility]) state, incidental Trichomoniasis Trichomoniasis, unspecified Screen for STD (sexually transmitted disease) Screening examination for venereal disease Supervision of other high risk pregnancies, second trimester ([facility]) Hx of preeclampsia, prior , currently ([facility]) with other poor obstetric history Obesity in ([facility]) Obesity complicating , childbirth, or the puerperium, unspecified as to episode of care or not applicable Hypothyroidism, unspecified type documented in this encounter [facility] note* Diagnosis Supervision of other high risk pregnancies, second trimester ([facility])- Primary Hx of preeclampsia, prior , currently ([facility]) with other poor obstetric history Obesity in ([facility]) Obesity complicating , childbirth, or the puerperium, unspecified as to episode of care or not applicable Hypothyroidism, unspecified type 16 weeks gestation of ([facility]) state, incidental Trichomoniasis Trichomoniasis, unspecified Screen for STD (sexually transmitted disease) Screening examination for venereal disease Supervision of high risk in third trimester ([facility])- Primary Unspecified high-risk Hypothyroidism, unspecified type Obesity in ([facility]) Obesity complicating , childbirth, or the puerperium, unspecified as to episode of care or not applicable 29 weeks gestation of ([facility]) state, incidental Need for vaccination Need for prophylactic vaccination and inoculation against unspecified single disease Encounter for other general counseling or advice on contraception Sciatica of right side Sciatica documented in this encounter [facility] note* Diagnosis Supervision of other high risk pregnancies, second trimester ([facility])- Primary Hx of preeclampsia, prior , currently ([facility]) with other poor obstetric history Obesity in ([facility]) Obesity complicating , childbirth, or the puerperium, unspecified as to episode of care or not applicable Hypothyroidism, unspecified type 16 weeks gestation of ([facility]) state, incidental Trichomoniasis Trichomoniasis, unspecified Screen for STD (sexually transmitted disease) Screening examination for venereal disease Anemia complicating , third trimester ([facility])- Primary documented in this encounter [facility] note* Diagnosis Supervision of other high risk pregnancies, second trimester ([facility])- Primary Hx of preeclampsia, prior , currently ([facility]) with other poor obstetric history Obesity in ([facility]) Obesity complicating , childbirth, or the puerperium, unspecified as to episode of care or not applicable Hypothyroidism, unspecified type 16 weeks gestation of ([facility]) state, incidental Trichomoniasis Trichomoniasis, unspecified Screen for STD (sexually transmitted disease) Screening examination for venereal disease Anxiety with depression documented in this encounter [facility] note* Diagnosis Supervision of other high risk pregnancies, second trimester ([facility])- Primary Hx of preeclampsia, prior , currently ([facility]) with other poor obstetric history Obesity in ([facility]) Obesity complicating , childbirth, or the puerperium, unspecified as to episode of care or not applicable Hypothyroidism, unspecified type 16 weeks gestation of ([facility]) state, incidental Trichomoniasis Trichomoniasis, unspecified Screen for STD (sexually transmitted disease) Screening examination for venereal disease Anemia during in third trimester ([facility])- Primary Obesity in ([facility]) Obesity complicating , childbirth, or the puerperium, unspecified as to episode of care or not applicable Supervision of high risk in third trimester ([facility]) Unspecified high-risk 31 weeks gestation of ([facility]) state, incidental [facility] Additional Instructions Motrin and Tylenol for pain. Your labs are unremarkable. Your CAT scan showed swollen lymph nodes. This should improve over time. If not follow-up with your doctor. No signs of colitis.[facility] Work Phone: Hospital Discharge instructions Additional Instructions Take your potassium supplements. Please follow-up with your PCP.[facility] Work Phone: Reason for referral (narrative)* Diagnostic Procedure Only (Urgent) - Closed Specialty Diagnoses / Procedures Referred By Contac t Referred To Contact XR IMAGING Diagnoses Left wrist pain Procedures XR WRIST INJURY 4V PA/LAT/OBL/SCAPH LEFT RADEX WRIST COMPLETE MINIMUM 3 VIEWS Ruth Vallejo PA-C [address] [place] [address] Xr Imaging Referral ID Status Reason Start Date Expiration Date V isits Requested Visits Authorized [id number] Closed Auto-Generate d Referral 12/24/2021 01/23/2023 1 1 [facility] for referral (narrative)* Diagnostic Procedure Only (Routine) - Pending Review Specialty Diagnoses / Procedures Referred By Contac t Referred To Contact [facility] Diagnoses Irregular menses Class II obesity Menorrhagia with irregular cycle Dysmenorrhea Procedures PELVIC US WHI US PELVIC NONOBSTETRIC REAL-TIME IMAGE COMPLETE Rohan Yoon MD [id number] [place] [id number] [place] [id number] Referral ID Status Reason Start Date Expiration Date Visits Requested Visits Authorized [id number] Pending Review Auto-Generat ed Referral 11/04/2023 11/03/2024 1 1 [facility] for referral (narrative)* Diagnostic Procedure Only (Urgent) - Closed Specialty Diagnoses / Procedures Referred By Contac t Referred To Contact XR IMAGING Diagnoses Left wrist pain Procedures XR WRIST INJURY 4V PA/LAT/OBL/SCAPH LEFT RADEX WRIST COMPLETE MINIMUM 3 VIEWS Ruth Vallejo PA-C [address] [place] [address] [place] [address] Referral ID Status Reason Start Date Expiration Date V isits Requested Visits Authorized [id number] Closed Auto-Generate d Referral 12/24/2021 01/23/2023 1 1 [facility] for referral (narrative)No reason for referral information [facility]WSal[facility] Work Phone: Reason for visit Narrative* Diagnostic Procedure Only (Routine) - Closed Specialty Diagnoses / Procedures Referred By Contac t Referred To Contact [facility] Diagnoses Irregular menses Class II obesity Menorrhagia with irregular cycle Dysmenorrhea Procedures PELVIC US WHI US PELVIC NONOBSTETRIC REAL-TIME IMAGE COMPLETE Rohan Yoon MD [address] [place] [address] [facility] [address] [place] [place] [id number] Referral ID Status Reason Start Date Expiration Date V isits Requested Visits Authorized [id number] Closed Auto-Generate d Referral 11/12/2023 05/03/2024 1 1 [facility] for visit Narrative* Diagnostic Procedure Only (Urgent) - Closed Specialty Diagnoses / Procedures Referred By Contac t Referred To Contact XR IMAGING Diagnoses Left wrist pain Procedures XR WRIST INJURY 4V PA/LAT/OBL/SCAPH LEFT RADEX WRIST COMPLETE MINIMUM 3 VIEWS Ruth Vallejo PA-C [address] [place] [address] [place] [address] Referral ID Status Reason Start Date Expiration Date V isits Requested Visits Authorized [id number] Closed Auto-Generate d Referral 12/24/2021 01/23/2023 1 1 [facility] Summary Purpose Family History No Family History [...] FoundDocuments on File Type Date Recorded Patient Internal Consultant Expl anation Advance Directive(s) 10/14/2017 12:25 PM Documents on File Type Date Recorded Patient Internal Consultant Expl anation Advance Directive(s) 10/14/2017 12:25 PM Advance Directive Response Recorded Date/ Time Living Will No March 02 9:26pm Power of Glass Maker No March 02, 2022 9:26pm Advance Directive Response Recorded Date/ Time Living Will No June 30, 2 023 9:09am Power of Glass Maker No June 30, 2022 9:09am Advance Directive Response Recorded Date/ Time Living Will No September 06, 2022 2: 13pm Power of Glass Maker No September 06, 2022 2:13pm Advance Directive Response Recorded Date/ Time Living Will No June, 2 024 11:14am Power of Glass Maker No July 02, 2023 11:14am Reason for Referral Specialty Diagnoses / Procedures Referred By Susan montague Referred To Contact Ent - Otolaryngology Diagnoses Tonsil stone Procedures CONSULT TO ENT OFFICE/OUTPATIENT [facility] 60-74 MINUTES Terrell Cloud APRN.[employer] [address] [place] [address] Referral ID Status Reason Start Date Expiration Date Visits Requested Visits Authorized [id number] Pending Review PCP Requested Referral 09/17/2021 09/17/2022 1 1 Specialty Diagnoses / Procedures Referred By Susan t Referred To Contact Gastroenterology Diagnoses Gastroesophageal reflux disease, unspecified whether esophagitis present Procedures CONSULT TO GASTROENTEROLOGY OFFICE/OUTPATIENT [facility] 60-74 MINUTES Genie Jackson MD [address] [place] [address] Referral ID Status Reason Start Date Expiration Date Visits Requested Visits Authorized [id number] Pending Review PCP Requested Referral 09/19/2021 09/19/2022 1 1 Specialty Diagnoses / Procedures Referred By Susan t Referred To [facility] Diagnoses Paresthesia Hand pain, left Procedures EMG(NEURO/NI) NERVE CONDUCTION STUDIES 9-10 STUDIES Terrell Cloud APRN.SUPERVISOR ESTIMATOR AND DRAFTER [address] [place] [address] [facility] [place] [address] [place] [address] Referral ID Status Reason Start Date Expiration Date Visits Requested Visits Authorized [id number] Authorized Auto-Generat ed Referral 09/22/2022 05/03/2023 1 1 Specialty Diagnoses / Procedures Referred By Susan montague Referred To Contact Diagnoses Chronic constipation Genie Jackson MD [address] [place] [address] Referral ID Status Reason Start Date Expiration Date V isits Requested Visits Authorized [id number] Authorized 11/12/2023 11/10/2024 1 1 Health Concerns [...] section and content) DATE CREATED AUTHOR 10/20/2017 [facility] DATE CREATED AUTHOR AUTHOR'S ORGANIZ ATION 10/23/2017 [facility] DATE CREATED AUTHOR AUTHOR'S ORGANIZ ATION 08/26/2022 [facility] DATE CREATED AUTHOR AUTHOR'S ORGANIZ ATION 07/11/2023 [facility] ([place]) DATE CREATED AUTHOR AUTHOR'S ORGANIZ ATION 02/16/2025 [facility] DATE CREATED AUTHOR AUTHOR'S ORGANIZ ATION 02/17/2025 [facility] Source Comments (unrecognize d section and content) In the event this informatio n is protected by the Federal Confidentiality of Alcohol and Drug Abuse Patient Records regulations: The Federal rules restrict any use of the information to criminally investigate or prosecute any alcohol or drug abuse patient.[facility]In the event this information is protected by the Federal Confidentiality of Alcohol and Drug Abuse Patient Records regulations: The Federal rules restrict any use of the information to criminally investigate or prosecute any alcohol or drug abuse patient.[facility] HospitalIn the event this information is protected by the Federal Confidentiality of Alcohol and Drug Abuse Patient Records regulations: The Federal rules restrict any use of the information to criminally investigate or prosecute any alcohol or drug abuse patient.[facility] HospitalIn the event this information is protected by the Federal Confidentiality of Alcohol and Drug Abuse Patient Records regulations: The Federal rules restrict any use of the information to criminally investigate or prosecute any alcohol or drug abuse patient.[facility] HospitalIn the event this information is protected by the Federal Confidentiality of Alcohol and Drug Abuse Patient Records regulations: The Federal rules restrict any use of the information to criminally investigate or prosecute any alcohol or drug abuse patient.[facility] HospitalIn the event this information is protected by the Federal Confidentiality of Alcohol and Drug Abuse Patient Records regulations: The Federal rules restrict any use of the information to criminally investigate or prosecute any alcohol or drug abuse patient.[facility] HospitalIn the event this information is protected by the Federal Confidentiality of Alcohol and Drug Abuse Patient Records regulations: The Federal rules restrict any use of the information to criminally investigate or prosecute any alcohol or drug abuse patient.[facility] HospitalIn the event this information is protected by the Federal Confidentiality of Alcohol and Drug Abuse Patient Records regulations: The Federal rules restrict any use of the information to criminally investigate or prosecute any alcohol or drug abuse patient.[facility] HospitalIn the event this information is protected by the Federal Confidentiality of Alcohol and Drug Abuse Patient Records regulations: The Federal rules restrict any use of the information to criminally investigate or prosecute any alcohol or drug abuse patient.[facility] HospitalIn the event this information is protected by the Federal Confidentiality of Alcohol and Drug Abuse Patient Records regulations: The Federal rules restrict any use of the information to criminally investigate or prosecute any alcohol or drug abuse patient.[facility] HospitalIn the event this information is protected by the Federal Confidentiality of Alcohol and Drug Abuse Patient Records regulations: The Federal rules restrict any use of the information to criminally investigate or prosecute any alcohol or drug abuse patient.[facility] HospitalIn the event this information is protected by the Federal Confidentiality of Alcohol and Drug Abuse Patient Records regulations: The Federal rules restrict any use of the information to criminally investigate or prosecute any alcohol or drug abuse patient.[facility] HospitalIn the event this information is protected by the Federal Confidentiality of Alcohol and Drug Abuse Patient Records regulations: The Federal rules restrict any use of the information to criminally investigate or prosecute any alcohol or drug abuse patient.[facility] HospitalIn the event this information is protected by the Federal Confidentiality of Alcohol and Drug Abuse Patient Records regulations: The Federal rules restrict any use of the information to criminally investigate or prosecute any alcohol or drug abuse patient.[facility] HospitalIn the event this information is protected by the Federal Confidentiality of Alcohol and Drug Abuse Patient Records regulations: The Federal rules restrict any use of the information to criminally investigate or prosecute any alcohol or drug abuse patient.[facility] HospitalIn the event this information is protected by the Federal Confidentiality of Alcohol and Drug Abuse Patient Records regulations: The Federal rules restrict any use of the information to criminally investigate or prosecute any alcohol or drug abuse patient.[facility] HospitalIn the event this information is protected by the Federal Confidentiality of Alcohol and Drug Abuse Patient Records regulations: The Federal rules restrict any use of the information to criminally investigate or prosecute any alcohol or drug abuse patient.[facility] HospitalIn the event this information is protected by the Federal Confidentiality of Alcohol and Drug Abuse Patient Records regulations: The Federal rules restrict any use of the information to criminally investigate or prosecute any alcohol or drug abuse patient.[facility] HospitalIn the event this information is protected by the Federal Confidentiality of Alcohol and Drug Abuse Patient Records regulations: The Federal rules restrict any use of the information to criminally investigate or prosecute any alcohol or drug abuse patient.[facility] HospitalIn the event this information is protected by the Federal Confidentiality of Alcohol and Drug Abuse Patient Records regulations: The Federal rules restrict any use of the information to criminally investigate or prosecute any alcohol or drug abuse patient.[facility] HospitalIn the event this information is protected by the Federal Confidentiality of Alcohol and Drug Abuse Patient Records regulations: The Federal rules restrict any use of the information to criminally investigate or prosecute any alcohol or drug abuse patient.[facility] HospitalIn the event this information is protected by the Federal Confidentiality of Alcohol and Drug Abuse Patient Records regulations: The Federal rules restrict any use of the information to criminally investigate or prosecute any alcohol or drug abuse patient.[facility] HospitalIn the event this information is protected by the Federal Confidentiality of Alcohol and Drug Abuse Patient Records regulations: The Federal rules restrict any use of the information to criminally investigate or prosecute any alcohol or drug abuse patient.[facility] HospitalIn the event this information is protected by the Federal Confidentiality of Alcohol and Drug Abuse Patient Records regulations: The Federal rules restrict any use of the information to criminally investigate or prosecute any alcohol or drug abuse patient.[facility] HospitalIn the event this information is protected by the Federal Confidentiality of Alcohol and Drug Abuse Patient Records regulations: The Federal rules restrict any use of the information to criminally investigate or prosecute any alcohol or drug abuse patient.[facility] HospitalIn the event this information is protected by the Federal Confidentiality of Alcohol and Drug Abuse Patient Records regulations: The Federal rules restrict any use of the information to criminally investigate or prosecute any alcohol or drug abuse patient.[facility] HospitalIn the event this information is protected by the Federal Confidentiality of Alcohol and Drug Abuse Patient Records regulations: The Federal rules restrict any use of the information to criminally investigate or prosecute any alcohol or drug abuse patient.[facility] HospitalIn the event this information is protected by the Federal Confidentiality of Alcohol and Drug Abuse Patient Records regulations: The Federal rules restrict any use of the information to criminally investigate or prosecute any alcohol or drug abuse patient.[facility] HospitalIn the event this information is protected by the Federal Confidentiality of Alcohol and Drug Abuse Patient Records regulations: The Federal rules restrict any use of the information to criminally investigate or prosecute any alcohol or drug abuse patient.[facility] HospitalIn the event this information is protected by the Federal Confidentiality of Alcohol and Drug Abuse Patient Records regulations: The Federal rules restrict any use of the information to criminally investigate or prosecute any alcohol or drug abuse patient.[facility] HospitalIn the event this information is protected by the Federal Confidentiality of Alcohol and Drug Abuse Patient Records regulations: The Federal rules restrict any use of the information to criminally investigate or prosecute any alcohol or drug abuse patient.[facility] HospitalIn the event this information is protected by the Federal Confidentiality of Alcohol and Drug Abuse Patient Records regulations: The Federal rules restrict any use of the information to criminally investigate or prosecute any alcohol or drug abuse patient.[facility] HospitalIn the event this information is protected by the Federal Confidentiality of Alcohol and Drug Abuse Patient Records regulations: The Federal rules restrict any use of the information to criminally investigate or prosecute any alcohol or drug abuse patient.[facility] HospitalIn the event this information is protected by the Federal Confidentiality of Alcohol and Drug Abuse Patient Records regulations: The Federal rules restrict any use of the information to criminally investigate or prosecute any alcohol or drug abuse patient.[facility] HospitalIn the event this information is protected by the Federal Confidentiality of Alcohol and Drug Abuse Patient Records regulations: The Federal rules restrict any use of the information to criminally investigate or prosecute any alcohol or drug abuse patient.[facility] HospitalIn the event this information is protected by the Federal Confidentiality of Alcohol and Drug Abuse Patient Records regulations: The Federal rules restrict any use of the information to criminally investigate or prosecute any alcohol or drug abuse patient.[facility] HospitalIn the event this information is protected by the Federal Confidentiality of Alcohol and Drug Abuse Patient Records regulations: The Federal rules restrict any use of the information to criminally investigate or prosecute any alcohol or drug abuse patient.[facility] HospitalIn the event this information is protected by the Federal Confidentiality of Alcohol and Drug Abuse Patient Records regulations: The Federal rules restrict any use of the information to criminally investigate or prosecute any alcohol or drug abuse patient.[facility] HospitalIn the event this information is protected by the Federal Confidentiality of Alcohol and Drug Abuse Patient Records regulations: The Federal rules restrict any use of the information to criminally investigate or prosecute any alcohol or drug abuse patient.[facility] HospitalIn the event this information is protected by the Federal Confidentiality of Alcohol and Drug Abuse Patient Records regulations: The Federal rules restrict any use of the information to criminally investigate or prosecute any alcohol or drug abuse patient.[facility] HospitalIn the event this information is protected by the Federal Confidentiality of Alcohol and Drug Abuse Patient Records regulations: The Federal rules restrict any use of the information to criminally investigate or prosecute any alcohol or drug abuse patient.[facility] HospitalIn the event this information is protected by the Federal Confidentiality of Alcohol and Drug Abuse Patient Records regulations: The Federal rules restrict any use of the information to criminally investigate or prosecute any alcohol or drug abuse patient.[facility] HospitalIn the event this information is protected by the Federal Confidentiality of Alcohol and Drug Abuse Patient Records regulations: The Federal rules restrict any use of the information to criminally investigate or prosecute any alcohol or drug abuse patient.[facility] HospitalIn the event this information is protected by the Federal Confidentiality of Alcohol and Drug Abuse Patient Records regulations: The Federal rules restrict any use of the information to criminally investigate or prosecute any alcohol or drug abuse patient.[facility] HospitalIn the event this information is protected by the Federal Confidentiality of Alcohol and Drug Abuse Patient Records regulations: The Federal rules restrict any use of the information to criminally investigate or prosecute any alcohol or drug abuse patient.[facility] HospitalIn the event this information is protected by the Federal Confidentiality of Alcohol and Drug Abuse Patient Records regulations: The Federal rules restrict any use of the information to criminally investigate or prosecute any alcohol or drug abuse patient.[facility] HospitalIn the event this information is protected by the Federal Confidentiality of Alcohol and Drug Abuse Patient Records regulations: The Federal rules restrict any use of the information to criminally investigate or prosecute any alcohol or drug abuse patient.[facility] HospitalIn the event this information is protected by the Federal Confidentiality of Alcohol and Drug Abuse Patient Records regulations: The Federal rules restrict any use of the information to criminally investigate or prosecute any alcohol or drug abuse patient.[facility] HospitalIn the event this information is protected by the Federal Confidentiality of Alcohol and Drug Abuse Patient Records regulations: The Federal rules restrict any use of the information to criminally investigate or prosecute any alcohol or drug abuse patient.[facility] HospitalIn the event this information is protected by the Federal Confidentiality of Alcohol and Drug Abuse Patient Records regulations: The Federal rules restrict any use of the information to criminally investigate or prosecute any alcohol or drug abuse patient.[facility] HospitalIn the event this information is protected by the Federal Confidentiality of Alcohol and Drug Abuse Patient Records regulations: The Federal rules restrict any use of the information to criminally investigate or prosecute any alcohol or drug abuse patient.[facility] HospitalIn the event this information is protected by the Federal Confidentiality of Alcohol and Drug Abuse Patient Records regulations: The Federal rules restrict any use of the information to criminally investigate or prosecute any alcohol or drug abuse patient.[facility] HospitalIn the event this information is protected by the Federal Confidentiality of Alcohol and Drug Abuse Patient Records regulations: The Federal rules restrict any use of the information to criminally investigate or prosecute any alcohol or drug abuse patient.[facility] HospitalIn the event this information is protected by the Federal Confidentiality of Alcohol and Drug Abuse Patient Records regulations: The Federal rules restrict any use of the information to criminally investigate or prosecute any alcohol or drug abuse patient.[facility] HospitalIn the event this information is protected by the Federal Confidentiality of Alcohol and Drug Abuse Patient Records regulations: The Federal rules restrict any use of the information to criminally investigate or prosecute any alcohol or drug abuse patient.[facility] HospitalIn the event this information is protected by the Federal Confidentiality of Alcohol and Drug Abuse Patient Records regulations: The Federal rules restrict any use of the information to criminally investigate or prosecute any alcohol or drug abuse patient.[facility] HospitalIn the event this information is protected by the Federal Confidentiality of Alcohol and Drug Abuse Patient Records regulations: The Federal rules restrict any use of the information to criminally investigate or prosecute any alcohol or drug abuse patient.[facility] HospitalIn the event this information is protected by the Federal Confidentiality of Alcohol and Drug Abuse Patient Records regulations: The Federal rules restrict any use of the information to criminally investigate or prosecute any alcohol or drug abuse patient.[facility] HospitalIn the event this information is protected by the Federal Confidentiality of Alcohol and Drug Abuse Patient Records regulations: The Federal rules restrict any use of the information to criminally investigate or prosecute any alcohol or drug abuse patient.[facility] HospitalIn the event this information is protected by the Federal Confidentiality of Alcohol and Drug Abuse Patient Records regulations: The Federal rules restrict any use of the information to criminally investigate or prosecute any alcohol or drug abuse patient.[facility] HospitalIn the event this information is protected by the Federal Confidentiality of Alcohol and Drug Abuse Patient Records regulations: The Federal rules restrict any use of the information to criminally investigate or prosecute any alcohol or drug abuse patient.[facility] HospitalIn the event this information is protected by the Federal Confidentiality of Alcohol and Drug Abuse Patient Records regulations: The Federal rules restrict any use of the information to criminally investigate or prosecute any alcohol or drug abuse patient.[facility] HospitalIn the event this information is protected by the Federal Confidentiality of Alcohol and Drug Abuse Patient Records regulations: The Federal rules restrict any use of the information to criminally investigate or prosecute any alcohol or drug abuse patient.[facility] HospitalIn the event this information is protected by the Federal Confidentiality of Alcohol and Drug Abuse Patient Records regulations: The Federal rules restrict any use of the information to criminally investigate or prosecute any alcohol or drug abuse patient.[facility] HospitalIn the event this information is protected by the Federal Confidentiality of Alcohol and Drug Abuse Patient Records regulations: The Federal rules restrict any use of the information to criminally investigate or prosecute any alcohol or drug abuse patient.[facility] HospitalIn the event this information is protected by the Federal Confidentiality of Alcohol and Drug Abuse Patient Records regulations: The Federal rules restrict any use of the information to criminally investigate or prosecute any alcohol or drug abuse patient.[facility] HospitalIn the event this information is protected by the Federal Confidentiality of Alcohol and Drug Abuse Patient Records regulations: The Federal rules restrict any use of the information to criminally investigate or prosecute any alcohol or drug abuse patient.[facility] HospitalIn the event this information is protected by the Federal Confidentiality of Alcohol and Drug Abuse Patient Records regulations: The Federal rules restrict any use of the information to criminally investigate or prosecute any alcohol or drug abuse patient.[facility] HospitalIn the event this information is protected by the Federal Confidentiality of Alcohol and Drug Abuse Patient Records regulations: The Federal rules restrict any use of the information to criminally investigate or prosecute any alcohol or drug abuse patient.[facility] HospitalIn the event this information is protected by the Federal Confidentiality of Alcohol and Drug Abuse Patient Records regulations: The Federal rules restrict any use of the information to criminally investigate or prosecute any alcohol or drug abuse patient.[facility] HospitalIn the event this information is protected by the Federal Confidentiality of Alcohol and Drug Abuse Patient Records regulations: The Federal rules restrict any use of the information to criminally investigate or prosecute any alcohol or drug abuse patient.[facility] HospitalIn the event this information is protected by the Federal Confidentiality of Alcohol and Drug Abuse Patient Records regulations: The Federal rules restrict any use of the information to criminally investigate or prosecute any alcohol or drug abuse patient.[facility] HospitalIn the event this information is protected by the Federal Confidentiality of Alcohol and Drug Abuse Patient Records regulations: The Federal rules restrict any use of the information to criminally investigate or prosecute any alcohol or drug abuse patient.[facility] HospitalIn the event this information is protected by the Federal Confidentiality of Alcohol and Drug Abuse Patient Records regulations: The Federal rules restrict any use of the information to criminally investigate or prosecute any alcohol or drug abuse patient.[facility] HospitalIn the event this information is protected by the Federal Confidentiality of Alcohol and Drug Abuse Patient Records regulations: The Federal rules restrict any use of the information to criminally investigate or prosecute any alcohol or drug abuse patient.[facility] HospitalIn the event this information is protected by the Federal Confidentiality of Alcohol and Drug Abuse Patient Records regulations: The Federal rules restrict any use of the information to criminally investigate or prosecute any alcohol or drug abuse patient.[facility] HospitalIn the event this information is protected by the Federal Confidentiality of Alcohol and Drug Abuse Patient Records regulations: The Federal rules restrict any use of the information to criminally investigate or prosecute any alcohol or drug abuse patient.[facility] HospitalIn the event this information is protected by the Federal Confidentiality of Alcohol and Drug Abuse Patient Records regulations: The Federal rules restrict any use of the information to criminally investigate or prosecute any alcohol or drug abuse patient.[facility] HospitalIn the event this information is protected by the Federal Confidentiality of Alcohol and Drug Abuse Patient Records regulations: The Federal rules restrict any use of the information to criminally investigate or prosecute any alcohol or drug abuse patient.[facility] HospitalIn the event this information is protected by the Federal Confidentiality of Alcohol and Drug Abuse Patient Records regulations: The Federal rules restrict any use of the information to criminally investigate or prosecute any alcohol or drug abuse patient.[facility] HospitalIn the event this information is protected by the Federal Confidentiality of Alcohol and Drug Abuse Patient Records regulations: The Federal rules restrict any use of the information to criminally investigate or prosecute any alcohol or drug abuse patient.[facility] HospitalIn the event this information is protected by the Federal Confidentiality of Alcohol and Drug Abuse Patient Records regulations: The Federal rules restrict any use of the information to criminally investigate or prosecute any alcohol or drug abuse patient.[facility] HospitalIn the event this information is protected by the Federal Confidentiality of Alcohol and Drug Abuse Patient Records regulations: The Federal rules restrict any use of the information to criminally investigate or prosecute any alcohol or drug abuse patient.[facility] HospitalIn the event this information is protected by the Federal Confidentiality of Alcohol and Drug Abuse Patient Records regulations: The Federal rules restrict any use of the information to criminally investigate or prosecute any alcohol or drug abuse patient.[facility] HospitalIn the event this information is protected by the Federal Confidentiality of Alcohol and Drug Abuse Patient Records regulations: The Federal rules restrict any use of the information to criminally investigate or prosecute any alcohol or drug abuse patient.[facility] HospitalIn the event this information is protected by the Federal Confidentiality of Alcohol and Drug Abuse Patient Records regulations: The Federal rules restrict any use of the information to criminally investigate or prosecute any alcohol or drug abuse patient.[facility] HospitalIn the event this information is protected by the Federal Confidentiality of Alcohol and Drug Abuse Patient Records regulations: The Federal rules restrict any use of the information to criminally investigate or prosecute any alcohol or drug abuse patient.[facility] HospitalIn the event this information is protected by the Federal Confidentiality of Alcohol and Drug Abuse Patient Records regulations: The Federal rules restrict any use of the information to criminally investigate or prosecute any alcohol or drug abuse patient.[facility] HospitalIn the event this information is protected by the Federal Confidentiality of Alcohol and Drug Abuse Patient Records regulations: The Federal rules restrict any use of the information to criminally investigate or prosecute any alcohol or drug abuse patient.[facility] HospitalIn the event this information is protected by the Federal Confidentiality of Alcohol and Drug Abuse Patient Records regulations: The Federal rules restrict any use of the information to criminally investigate or prosecute any alcohol or drug abuse patient.[facility] HospitalIn the event this information is protected by the Federal Confidentiality of Alcohol and Drug Abuse Patient Records regulations: The Federal rules restrict any use of the information to criminally investigate or prosecute any alcohol or drug abuse patient.[facility] HospitalIn the event this information is protected by the Federal Confidentiality of Alcohol and Drug Abuse Patient Records regulations: The Federal rules restrict any use of the information to criminally investigate or prosecute any alcohol or drug abuse patient.[facility] HospitalIn the event this information is protected by the Federal Confidentiality of Alcohol and Drug Abuse Patient Records regulations: The Federal rules restrict any use of the information to criminally investigate or prosecute any alcohol or drug abuse patient.[facility] Reason for Visit (unrecogniz ed section and content) Reason Onset Date Comments Refill Request 08/09/2021 Reason Comments Swollen Tonsils Reason Comments GERD Specialty Diagnoses / Procedures Referred By Susan t Referred To Contact Gastroenterology Diagnoses Gastroesophageal reflux disease, unspecified whether esophagitis present Procedures CONSULT TO GASTROENTEROLOGY OFFICE/OUTPATIENT NEW HIGH MDM 60-74 MINUTES Genie Jackson MD [address] [place] [address] Referral ID Status Reason Start Date Expiration Date Visits Requested Visits Authorized [id number] Pending Review PCP Requested Referral 09/19/2021 09/19/2022 [...] Request 07/29/2022 Reason Comments ER F/U 08/22/22 [facility]; abdominal pain Reason Comments Urinary Frequency Frequency [...] SAME DAY Self Express Cl [facility] [address] [place] [address] Referral ID Status Reason Start Date Expiration Date Visits Requested Visits Authorized [id number] New Request Financial Clearance Required - Self Pay 07/13/2024 1 1 Reason Comments Problem Visit Reason Comments Headache X 1 week with sinus pressure Reason Comments Medication Problem Increased anxiety Reason Comments patient medication question Reason Comments Medication Problem Reason Comments Future Appointment Reason Comments [employer] - Other [employer] Reason Comments Follow Up Reason Comments US Specialty Diagnoses / Procedures Referred By Susan t Referred To Contact [facility] Diagnoses 8 weeks gestation of (HCC) Procedures OBSTETRIC ULTRASOUND WHI US PREG UTERUS AFTER 1ST TRIMEST GESTATION Elayne Severino, BUD.SUPERVISOR ESTIMATOR AND DRAFTER [address] [place] [address] Phone: tel: fax: [facility] [address] [place] [address] Referral ID Status Reason Start Date Expiration Date V isits Requested Visits Authorized [id number] Closed Auto-Generate d Referral 08/01/2024 08/01/2025 1 1 Reason Onset Date Comments Care 08/31/2024 Reason Onset Date Comments Refill Request 09/07/2024 Reason Onset Date Comments Care 09/29/2024 Specialty Diagnoses / Procedures Referred By Contac t Referred To Contact [facility] Diagnoses Supervision of other high risk pregnancies, second trimester (HCC) Hx of preeclampsia, prior , currently (HCC) Obesity in (HCC) Hypothyroidism, unspecified type Procedures OBSTETRIC ULTRASOUND WHI US PREG UTERUS AFTER 1ST TRIMEST GESTATION Emmanuel Hess MD [address] [place] [address] Phone: tel: fax: [facility] [address] [place] [address] Referral ID Status Reason Start Date Expiration Date V isits Requested Visits Authorized [id number] Closed Auto-Generate d Referral 09/29/2024 09/29/2025 6 1 Reason Onset Date Comments Care 10/26/2024 Referral ID Status Reason Start Date Expiration Date V isits Requested Visits Authorized [id number] Closed Auto-Generate d Referral 08/01/2024 08/01/2025 1 1 Reason Onset Date Comments Care 11/29/2024 Reason Onset Date Comments Refill Request 10/11/2024 Reason Onset Date Comments Care 12/28/2024 Reason Comments Results Reason Onset Date Comments Refill Request 01/05/2025 Reason Onset Date Comments Care 01/12/2025 Care Teams (unrecognized sec tion and content) [employer] Worker Relationship Specialty Start Date End Date Genie Jackson MD [address] [place], [place] [id number] PCP - General Family Practice 08/27/17 [employer] Worker Relationship Specialty Start Date End Date Genie Jackson MD [address] [place], [place] [address] [phone] PCP - General Family Practice 08/27/17 [employer] Worker Relationship Specialty Start Date End Date Genie Jackson MD [address] [place], [place] [id number] PCP - General Family Practice 08/27/17 [employer] Worker Relationship Specialty Start Date End Date Genie Jackson MD [address] [place], [place] [id number] PCP - General Family Practice 08/27/17 [employer] Worker Relationship Specialty Start Date End Date Genie Jackson MD [address] [place] [address] PCP - General Family Practice 08/27/17 [employer] Worker Relationship Specialty Start Date End Date Genie Jackson MD [address] [place] [address] PCP - General Family Practice 08/27/17 [employer] Worker Relationship Specialty Start Date End Date Genie Jackson MD [address] [place] [address] PCP - General Family Practice 08/27/17 [employer] Worker Relationship Specialty Start Date End Date Genie Jackson MD [address] [place] [address] PCP - General Family Practice 08/27/17 [employer] Worker Relationship Specialty Start Date End Date Genie Jackson MD [address] [place] [address] PCP - General Family Practice 08/27/17 [employer] Worker Relationship Specialty Start Date End Date Genie Jackson MD [address] [place] [address] PCP - General Family Practice 08/27/17 [employer] Worker Relationship Specialty Start Date End Date Genie Jackson MD [address] [place] [address] PCP - General Family Medicine 08/27/17 [employer] Worker Relationship Specialty Start Date End Date Genie Jackson MD [address] [place] [address] PCP - General Family Medicine 08/27/17 River [employer] Worker Relationship Specialty Start Date End Date Genie Jackson MD [address] [place] [address] PCP - General Family Medicine 08/27/17 [employer] Worker Relationship Specialty Start Date End Date Genie Jackson MD [address] [place] [address] PCP - General Family Medicine 08/27/17 [employer] Worker Relationship Specialty Start Date End Date Genie Jackson MD [address] [facility] [place] [address] PCP - General Family Medicine 08/27/17 Team [...] Dr. Louis Spivey MD Emergency Provider Active [employer] Worker Relationship Specialty Start Date End Date Genie Jackson MD [address] [facility] [place] [address] PCP - General Family Medicine 08/27/17 [employer] Worker Relationship Specialty Start Date End Date Genie Jackson MD [address] [facility] [place] [address] PCP - General Family Medicine 08/27/17 [employer] Worker Relationship Specialty Start Date End Date Genie Jackson MD [address] [facility] [place] [address] PCP - General Family Medicine 08/27/17 Team Status: Inactive Member Role Status Dates Dr. Genie Jackson MD Primary Care Provider Active Dr. Louis Spivey MD Attending Provider, Emergency Pro vider Active Team Status: Inactive Member Role Status Dates Dr. Genie Jackson MD Primary Care Provider Active Dr. Steffanie Ureña MD Emergency Provider Active [employer] Worker Relationship Specialty Start Date End Date Genie Jackson MD [address] [facility] [place] [address] PCP - General Family Medicine 08/27/17 [employer] Worker Relationship Specialty Start Date End Date Genie Jackson MD [address] [place] [address] PCP - General Family Medicine 08/27/17 [employer] Worker Relationship Specialty Start Date End Date Genie Jackson MD [address] [place] [address] PCP - General Family Medicine 08/27/17 [employer] Worker Relationship Specialty Start Date End Date Genie Jackson MD [address] [place] [address] PCP - General Family Medicine 08/27/17 [employer] Worker Relationship Specialty Start Date End Date Genie Jackson MD [address] [place] [address] PCP - General Family Medicine 08/27/17 River [employer] Worker Relationship Specialty Start Date End Date Genie Jacskon MD [address] [place] [address] PCP - General Family Medicine 08/27/17 [employer] Worker Relationship Specialty Start Date End Date Genie Jackson MD [address] [place] [address] PCP - General Family Medicine 08/27/17 Team Status: Inactive Member Role Status Dates Dr. Genie Jackson MD Primary Care Provider Active Dr. Thierno Winston DO Emergency Provider Active [employer] Worker Relationship Specialty Start Date End Date Genie Jackson MD [address] [place] [address] PCP - General Family Medicine 08/27/17 [employer] Worker Relationship Specialty Start Date End Date Genie Jackson MD [address] [place] [address] PCP - General Family Medicine 08/27/17 River [employer] Worker Relationship Specialty Start Date End Date Genie Jackson MD [address] [place] [address] PCP - General Family Medicine 08/27/17 River [employer] Worker Relationship Specialty Start Date End Date Genie Jackson MD [address] [place] [address] PCP - General Family Medicine 08/27/17 River [employer] Worker Relationship Specialty Start Date End Date Genie Jackson MD [address] [place] [address] PCP - General Family Medicine 08/27/17 River Transportation Worker Relationship Specialty Start Date End Date Genie Jackson MD [address] [place] [address] PCP - General Family Medicine 08/27/17 River Transportation Worker Relationship Specialty Start Date End Date Genie Jackson MD [address] [place] [address] PCP - General Family Medicine 08/27/17 River Transportation Worker Relationship Specialty Start Date End Date Genie Jackson MD [address] [place] [address] PCP - General Family Medicine 08/27/17 River Transportation Worker Relationship Specialty Start Date End Date Genie Jackson MD [address] [place] [address] PCP - General Family Medicine 08/27/17 River Transportation Worker Relationship Specialty Start Date End Date Genie Jackson MD [address] [place] [address] PCP - General Family Medicine 08/27/17 River Transportation Worker Relationship Specialty Start Date End Date Genie Jackson MD [address] [place] [address] PCP - General Family Medicine 08/27/17 River Transportation Worker Relationship Specialty Start Date End Date Genie Jackson MD [address] [place] [address] PCP - General Family Medicine 08/27/17 [employer] Worker Relationship Specialty Start Date End Date Genie Jackson MD [address] [place] [address] PCP - General Family Medicine 08/27/17 Ivelisse Ng APRN.SUPERVISOR ESTIMATOR AND DRAFTER [address] [place] [address] [employer] Family Medicine 04/10/24 [employer] Worker Relationship Specialty Start Date End Date Genie Jackson MD [address] [place] [address] PCP - General Family Medicine 08/27/17 Ivelisse Ng APRN.SUPERVISOR ESTIMATOR AND DRAFTER [address] [place] [address] Restaurant Culinary Manager Family Medicine 04/10/24 Terrell Cloud APRN.SUPERVISOR ESTIMATOR AND DRAFTER [address] [place] [address] Restaurant Culinary Manager Family Medicine 04/19/24 [employer] Worker Relationship Specialty Start Date End Date Genie Jackson MD [address] [place] [address] PCP - General Family Medicine 08/27/17 Ivelisse Ng APRN.SUPERVISOR ESTIMATOR AND DRAFTER [address] [place] [address] [employer] Cul[employer] Manager Family Medicine 04/10/24 Terrell Cloud APRN.SUPERVISOR ESTIMATOR AND DRAFTER [address] [place] [address] Restaurant Culinary Manager Family Medicine 04/19/24 [employer] Worker Relationship Specialty Start Date End Date Genie Jackson MD [address] [place] [address] PCP - General Family Medicine 08/27/17 Ivelisse Ng APRN.SUPERVISOR ESTIMATOR AND DRAFTER [address] [place] [address] Restaurant Culinary Manager Family Medicine 04/10/24 Terrell Cloud APRN.SUPERVISOR ESTIMATOR AND DRAFTER [address] [place] [address] Restaurant Culinary Manager Family Medicine 04/19/24 [employer] Worker Relationship Specialty Start Date End Date Genie Jackson MD [address] [place] [address] PCP - General Family Medicine 08/27/17 Ivelisse Ng APRN.SUPERVISOR ESTIMATOR AND DRAFTER [address] [place] [address] Restaurant Culinary Manager Family Medicine 04/10/24 Terrell Cloud APRN.SUPERVISOR ESTIMATOR AND DRAFTER [address] [place] [address] Restaurant Culinary Manager Family Medicine 04/19/24 River [employer] Worker Relationship Specialty Start Date End Date Genie Jackson MD [address] [place] [address] PCP - General Family Medicine 08/27/17 Ivelisse Ng APRN.SUPERVISOR ESTIMATOR AND DRAFTER [address] [place] [address] Restaurant Culinary Manager Family Medicine 04/10/24 Terrell Cloud APRN.SUPERVISOR ESTIMATOR AND DRAFTER [address] [place] [address] [facility] 04/19/24 River [employer] Worker Relationship Specialty Start Date End Date Genie Jackson MD [address] [place] [address] PCP - General Family Medicine 08/27/17 Ivelisse Ng APRN.SUPERVISOR ESTIMATOR AND DRAFTER [address] [place] [address] Restaurant Culinary Manager Family Medicine 04/10/24 Terrell Cloud APRN.SUPERVISOR ESTIMATOR AND DRAFTER [address] [place] [address] [facility] 04/19/24 River [employer] Worker Relationship Specialty Start Date End Date Genie Jackson MD [address] [place] [address] PCP - General Family Medicine 08/27/17 Ivelisse gN APRN.SUPERVISOR ESTIMATOR AND DRAFTER [address] [place] [address] Restaurant Culinary Manager Family Medicine 04/10/24 Terrell Cloud APRN.SUPERVISOR ESTIMATOR AND DRAFTER [address] [place] [address] Restaurant Culinary Manager Family Medicine 04/19/24 River [employer] Worker Relationship Specialty Start Date End Date Genie Jackson MD [address] [place] [address] PCP - General Family Medicine 08/27/17 Ivelisse Ng APRN.SUPERVISOR ESTIMATOR AND DRAFTER [address] [place] [address] Restaurant Culinary Manager Family Medicine 04/10/24 Terrell Cloud APRN.SUPERVISOR ESTIMATOR AND DRAFTER [address] [place] [address] [facility] 04/[facility]/24 River [employer] Worker Relationship Specialty Start Date End Date Genie Jackson MD [address] [place] [address] PCP - General Family Medicine 08/27/17 Ivelisse Ng APRN.SUPERVISOR ESTIMATOR AND DRAFTER [address] [place] [address] Restaurant Culinary Manager Family Medicine 04/10/24 Terrell Cloud APRN.SUPERVISOR ESTIMATOR AND DRAFTER [address] [place] [address] Restaurant Culinary Manager Family Medicine 04/19/24 River [employer] Worker Relationship Specialty Start Date End Date Genie Jackson MD [address] [facility] [address] PCP - General Family Medicine 08/27/17 Ivelisse Ng APRN.SUPERVISOR ESTIMATOR AND DRAFTER [address] [facility] [place] [address] Restaurant Culinary Manager Family Medicine 04/10/24 Terrell Cloud APRN.SUPERVISOR ESTIMATOR AND DRAFTER [address] [facility] [place] [address] Restaurant Culinary Manager Family Medicine 04/19/24 River [employer] Worker Relationship Specialty Start Date End Date Genie Jackson MD [address] [facility] [place] [address] PCP - General Family Medicine 08/27/17 Ivelisse Ng APRN.SUPERVISOR ESTIMATOR AND DRAFTER [address] [place] [address] Restaurant Culinary Manager Family Medicine 04/10/24 Terrell Cloud APRN.SUPERVISOR ESTIMATOR AND DRAFTER [address] [facility] [place] [address] Restaurant Culinary Manager Family Medicine 04/19/24 River Transportation Worker Relationship Specialty Start Date End Date Genie Jackson MD [address] [place] [address] PCP - General Family Medicine 08/27/17 Ivelisse Ng APRN.SUPERVISOR ESTIMATOR AND DRAFTER [address] [place] [address] Restaurant Culinary Manager Family Medicine 04/10/24 Terrell Cloud APRN.SUPERVISOR ESTIMATOR AND DRAFTER [address] [place] [address] Restaurant Culinary Manager Family Medicine 04/19/24 River [employer] Worker Relationship Specialty Start Date End Date Genie Jackson MD [address] [place] [address] PCP - General Family Medicine 08/27/17 Ivelisse Ng APRN.SUPERVISOR ESTIMATOR AND DRAFTER [address] [place] [address] Restaurant Culinary Manager Family Medicine 04/10/24 Terrell Cloud APRN.SUPERVISOR ESTIMATOR AND DRAFTER [address] [place] [address] Restaurant Culinary Manager Family Medicine 04/19/24 River [employer] Worker Relationship Specialty Start Date End Date Genie Jackson MD [address] [place] [address] PCP - General Family Medicine 08/27/17 Terrell Cloud APRN.SUPERVISOR ESTIMATOR AND DRAFTER [address] [place] [address] Restaurant Culinary Manager Family Medicine 04/19/24 River [employer] Worker Relationship Specialty Start Date End Date Genie Jackson MD [address] [place] [address] PCP - General Family Medicine 08/27/17 Ivelisse Ng APRN.SUPERVISOR ESTIMATOR AND DRAFTER [address] [place] [address] Restaurant Culinary Manager Family Medicine 04/10/24 09/14/24 Terrell Cloud APRN.SUPERVISOR ESTIMATOR AND DRAFTER [address] [place] [address] Restaurant Culinary Manager Family Medicine 04/19/24 River [employer] Worker Relationship Specialty Start Date End Date Genie Jackson MD [address] [place] [address] PCP - General Family Medicine 08/27/17 Terrell Cloud APRN.SUPERVISOR ESTIMATOR AND DRAFTER [address] [place] [address] Restaurant Culinary Manager Family Medicine 04/19/24 River [employer] Worker Relationship Specialty Start Date End Date Genie Jackson MD [address] [place] [address] PCP - General Family Medicine 08/27/17 Terrell Cloud APRN.SUPERVISOR ESTIMATOR AND DRAFTER [address] [place] [address] Restaurant Culinary Manager Family Medicine 04/19/24 River [employer] Worker Relationship Specialty Start Date End Date Genie Jackson MD [address] [place] [address] PCP - General Family Medicine 08/27/17 Terrell Cloud APRN.SUPERVISOR ESTIMATOR AND DRAFTER [address] [place] [address] Restaurant Culinary Manager Family Medicine 04/19/24 River [employer] Worker Relationship Specialty Start Date End Date Genie Jackson MD [address] [place] [address] PCP - General Family Medicine 08/27/17 Terrell Cloud APRN.SUPERVISOR ESTIMATOR AND DRAFTER [address] [place] [address] Restaurant Culinary Manager Family Medicine 04/19/24 River [employer] Worker Relationship Specialty Start Date End Date Genie Jackson MD [address] [place] [address] PCP - General Family Medicine 08/27/17 Terrell Cloud APRN.SUPERVISOR ESTIMATOR AND DRAFTER [address] [place] [address] Restaurant Culinary Manager Family Medicine 04/19/24 Team Status: Active Member [...] November 19, 2024 End: November 20, 2024 River [employer] Worker Relationship Specialty Start Date End Date Genie Jackson MD [address] [place] [address] PCP - General Family Medicine 08/27/17 Terrell Cloud APRN.SUPERVISOR ESTIMATOR AND DRAFTER [address] [place] [address] Restaurant Culinary Manager Family [facility] 04/19/24 River Transportation Worker Relationship Specialty Start Date End Date Genie Jackson MD [address] [place] [address] PCP - General Family Medicine 08/27/17 Terrell Cloud APRN.SUPERVISOR ESTIMATOR AND DRAFTER [address] [place] [address] Restaurant Culinary Manager Family [facility] 04/19/24 River [employer] Worker Relationship Specialty Start Date End Date Genie Jackson MD [address] [place] [address] PCP - General Family Medicine 08/27/17 Terrell Cloud APRN.SUPERVISOR ESTIMATOR AND DRAFTER [address] [place] [address] Restaurant Culinary Manager Family Medicine 04/19/24 Team Status: Inactive Member Role/Relationship Status Dates Dr. Genie Jackson MD Primary Care Provider Active Start: December 23, 2024 End: December 23, 2024 Roxana Fry CNM Attending Provider Active Start: December 23, 2024 End: December 23, 2024 Roxana Fry CNM Referring Provider Active Start: December 23, 2024 End: December 23, 2024 [employer] Worker Relationship Specialty Start Date End Date Genie Jackson MD [address] [place] [address] PCP - General Family Medicine 08/27/17 Terrell Cloud APRN.SUPERVISOR ESTIMATOR AND DRAFTER [address] [place] [address] Restaurant Culinary Manager [facility] 04/19/24 River [employer] Worker Relationship Specialty Start Date End Date Genie Jackson MD [address] [place] [address] PCP - General Family Medicine 08/27/17 Terrell Cloud APRN.SUPERVISOR ESTIMATOR AND DRAFTER [address] [place] [address] Restaurant Culinary Manager Family Medicine 04/19/24 River [employer] Worker Relationship Specialty Start Date End Date Genie Jackson MD [address] [place] [address] PCP - General Family Medicine 08/27/17 Terrell Cloud APRN.SUPERVISOR ESTIMATOR AND DRAFTER [address] [place] [address] Restaurant Culinary Manager Family [facility] 04/19/24 [employer] Work[employer] Relationship Specialty Start Date End Date Genie Jackson MD [address] [place] [address] PCP - General Family Medicine 08/27/17 Terrell Cloud APRN.SUPERVISOR ESTIMATOR AND DRAFTER [address] [place] [address] [facility] [employer] Work[employer] Relationship Specialty Start Date End Date Genie Jackson MD [address] [place] [address] PCP - General Family Medicine 08/27/17 Terrell Cloud APRN.SUPERVISOR ESTIMATOR AND DRAFTER [address] [place] [address] [facility] 04/19/24 [employer] Work[employer] Relationship Specialty Start Date End Date Genie Jackson MD [address] [place] [address] PCP - General Family Medicine 08/27/17 Terrell Cloud APRN.SUPERVISOR ESTIMATOR AND DRAFTER [address] [place] [address] Restaurant Culinary Manager Family Medicine 04/19/24 Goals (unrecognized section and [...] BE BASED ON THE PRIMARY CLINICAL RECORDS. [employer] [facility]. provides no warranty or guarantee of the accuracy or completeness of information in this document.
[2025-02-17 23:45] LABS: Prothrombin Time (Protime)PT. 12.3 SECONDS (11.7-14.9)
[2025-02-17 23:46] LABS: Partial Thromboplast Time 24.9 Seconds (24.1-36.2)
[2025-02-17] MEDS: Nicotine (PBKC) 21 MG Patch TD (23:49)
[2025-02-18] VITALS: BP 114/76; PULSE 94; RESP 18; O2SAT 96
[2025-02-18 00:16] VITALS: BMI 47.2
[2025-02-18 00:40] VITALS: BP 125/91; PULSE 90; RESP 20; TEMP 36.9; O2SAT 97
[2025-02-18 00:48] VITALS: PULSE 93
--- OUTSIDE RECORDS SUMMARY | 2025-02-18 01:27 | XMS RPT_ITS | CCD ---
Author Organization [facility] Care Team Providers Care Medical Billing Assistant Name Role Phone ABNER TINSLEY Unavailable Unavailable [...] Genie Jackson MD Primary Care Provider [place] FAMILY LAW ATTORNEY.SHOE REPAIR SUPERVISOR, Ivelisse Unavailable Husam FAMILY LAW ATTORNEY.SHOE REPAIR SUPERVISORTerrell Unavailable [place] FAMILY LAW ATTORNEY.SHOE REPAIR SUPERVISOR, Ivelisse Unavailable [place] FAMILY LAW ATTORNEY.SHOE REPAIR SUPERVISOR, Ivelisse Unavailable Dr. Genie Jackson MD Primary Care Provider Dr. Steffanie Lopez MD Attending Provider [phone] Dr. Steffanie Lopez MD Referring Provider Roxana [...] Attending Unavailable XIMENA HARTMAN Attending Unavailable ELDERBROCK, GNEIE D Primary Care Unavailable ELDERBROCK, GENIE D [...] 01-11-2014 take 3 tablets by [facility] once daily Levothyroxine 25 MCG tablet Active [...] Comment on above: Take 1 capsule by [facility] twice daily with meals for 5 [...] DAILY November 19, 2024 12:00am polymyxin b 60910 unt/ml / trimethoprim 1 mg/ml ophthalmic solution [...] above: Take 2 tablets by mo [facility] once daily for 5 days. VIT 3-LPYP-GHCTU-DHA ORAL (20 sources) VIT 1-OZWH-SAFZY-DHA ORAL Take by mouth. Active sertraline 50 [...] Drug Class(es) Dates Sig (Normalized) Sig (Original) [id number] 200 actuat albuterol 0.09 mg/actuat metered dose [...] above: Take 1 capsule by [facility] once daily. fluticasone propionate 0.05 mg/actuat metered [...] Comment on above: Take 1 capsule by [facility] once daily. 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] Onset: 3 Episodic Other [...] Unclassified (1 source) Rubella non-immune status, antepartum ([facility]); Translations: [Rubella non-immune status, antepartum ([facility])] Onset: Urinary tract infections (1 source) Acute [...] Translations: [Hx of preeclampsia, prior , currently ([facility])] Onset: 08-31-2024 Episodic Other complications of (1 [...] of ; Translations: [12 weeks gestation of ([facility])] Onset: 08-31-2024 Episodic Residual codes; unclassified (1 source) Personal history of other complications of , childbirth and the puerperium; Translations: [History of hemorrhage] Onset: 08-31-2024 Episodic Results Test Name Value Interpretation Reference Range Facility CBC W Auto Differential pane l (Bld)on 01-27-2025 Basophils (Bld) [#/Vol] 0.06 10*3/uL Normal <0.11 [facility] Comment on above: Order Comment: Speci men Type: BLOOD SPECIMENOrdering Facility: [facility] Address: [address] [place] [address] Performed By: #### 5 7021-8 ####[facility] [id number] [place] [address] [place] Basophils/100 WBC (Bld) 0.5 % Normal [facility] Comment on above: Order Comment: Speci men Type: BLOOD SPECIMENOrdering Facility: [facility] Address: [address] [place] [address] Performed By: #### 5 7021-8 ####[facility] [id number] [place] [address] [place] Differential cell count method Nom (Bld) Auto Normal [facility] Comment on above: Order Comment: Speci men Type: BLOOD SPECIMENOrdering Facility: [facility] Address: [address] [place] [address] Performed By: #### 5 7021-8 ####[facility] LABIA [id number] [place] [address] [place] Eosinophils (Bld) [#/Vol] 0.20 10*3/uL Normal <0.46 [facility] Comment on above: Order Comment: Speci men Type: BLOOD SPECIMENOrdering Facility: [facility] Address: [address] [place] [address] Performed By: #### 5 7021-8 ####[facility] LABCL[facility] [id number] [place] [address] [place] Eosinophils/100 WBC (Bld) 1.7 % Normal [facility] Comment on above: Order Comment: Speci men Type: BLOOD SPECIMENOrdering Facility: [facility] Address: [address] [place] [address] Performed By: #### 5 7021-8 ####[facility] LABCL[facility] [id number] [address], [place] [address] [place] Erythrocyte distribution width (RBC) [Ratio] 15.6 % High 11.5-15.0 [facility] Comment on above: Order Comment: Speci men Type: BLOOD SPECIMENOrdering Facility: [facility] Address: [address] [place] [address] Performed By: #### 5 7021-8 ####[facility] LABIA [id number] [place] [address] [place] Hematocrit (Bld) [Volume fraction] 34.8 % Low 36.0-46.0 [facility] Comment on above: Order Comment: Speci men Type: BLOOD SPECIMENOrdering Facility: [facility] Address: [address] [place] [address] Performed By: #### 5 7021-8 ####[facility] [id number] [place] [address] [place] Hemoglobin (Bld) [Mass/Vol] 11.2 g/dL Low 11.5-15.5 [facility] Comment on above: Order Comment: Speci men Type: BLOOD SPECIMENOrdering Facility: [facility] Address: [address] [place] [address] Performed By: #### 5 7021-8 ####[facility] LABIA [id number] [address] [address] [address] [place] Immature granulocytes (Bld) [#/Vol] 0.22 10*3/uL High <0.10 [facility] Comment on above: Order Comment: Speci men Type: BLOOD SPECIMENOrdering Facility: [facility] Address: [address] [place] [address] Performed By: #### 5 7021-8 ####[facility] [id number] [place] [address] [place] Immature granulocytes/100 WBC (Bld) 1.9 % Normal [facility] Comment on above: Order Comment: Speci men Type: BLOOD SPECIMENOrdering Facility: [facility] Address: [address] [place] [address] Performed By: #### 5 7021-8 ####[facility] [id number] [place] [address] [place] Lymphocytes (Bld) [#/Vol] 1.70 10*3/uL Normal 1.00-4.00 [facility] Comment on above: Order Comment: Speci men Type: BLOOD SPECIMENOrdering Facility: [facility] Address: [address] [place] [address] Performed By: #### 5 7021-8 ####[facility] [id number] [place] [address] [place] Lymphocytes/100 WBC (Bld) 14.9 % Normal [facility] Comment on above: Order Comment: Speci men Type: BLOOD SPECIMENOrdering Facility: [facility] Address: [address] [place] [address] Performed By: #### 5 7021-8 ####[facility] [id number] [place] [address] [place] MCH (RBC) [Entitic mass] 25.3 pg Low 26.0-34.0 [facility] Comment on above: Order Comment: Speci men Type: BLOOD SPECIMENOrdering Facility: [facility] Address: [address] [place] [address] Performed By: #### 5 7021-8 ####[facility] [id number] [address], [place] [address] [place] MCHC (RBC) [Mass/Vol] 32.2 g/dL Normal 30.5-36.0 [facility] Comment on above: Order Comment: Speci men Type: BLOOD SPECIMENOrdering Facility: [facility] Address: [address] [place] [address] Performed By: #### 5 7021-8 ####[facility] [id number] [address], [place] [address] [place] MCV (RBC) [Entitic vol] 78.6 fL Low 80.0-100.0 [facility] Comment on above: Order Comment: Speci men Type: BLOOD SPECIMENOrdering Facility: [facility] Address: [address] [place] [address] Performed By: #### 5 7021-8 ####[facility] [id number] [address], [place] [address] [place] Monocytes (Bld) [#/Vol] 0.92 10*3/uL High <0.87 [facility] Comment on above: Order Comment: Speci men Type: BLOOD SPECIMENOrdering Facility: [facility] Address: [address] [place] [address] Performed By: #### 5 7021-8 ####[facility] [id number] [place] [id number] [place] Monocytes/100 WBC (Bld) 8.0 % Normal [facility] Comment on above: Order Comment: Speci men Type: BLOOD SPECIMENOrdering Facility: [facility] Address: [address] [place] [address] Performed By: #### 5 7021-8 ####[facility]IA [id number] [place] [address] [place] Neutrophils (Bld) [#/Vol] 8.34 10*3/uL High 1.45-7.50 [facility] Comment on above: Order Comment: Speci men Type: BLOOD SPECIMENOrdering Facility: [facility] Address: [address] [place] [address] Performed By: #### 5 7021-8 ####[facility] [id number] [facility] [place] [address] [place] Neutrophils/100 WBC (Bld) 73.0 % Normal [facility] Comment on above: Order Comment: Speci men Type: BLOOD SPECIMENOrdering Facility: [facility] Address: [address] [place] [address] Performed By: #### 5 7021-8 ####[facility] [id number] [place] [address] [place] Nucleated RBC (Bld) [#/Vol] 10*3/uL Normal <0.01 [facility] Comment on above: Order Comment: Speci men Type: BLOOD SPECIMENOrdering Facility: [facility] Address: [address] [place] [address] Performed By: #### 5 7021-8 ####[facility] [id number] [place] [address] [place] Nucleated RBC/100 WBC (Bld) [Ratio] 0.0 /100 WBC Normal [facility] Comment on above: Order Comment: Speci men Type: BLOOD SPECIMENOrdering Facility: [facility] Address: [address] [place] [address] Performed By: #### 5 7021-8 ####[facility] [id number] [place] [address] [place] Platelet mean volume (Bld) [Entitic vol] 9.4 fL Normal 9.0-12.7 [facility] Comment on above: Order Comment: Speci men Type: BLOOD SPECIMENOrdering Facility: [facility] Address: [address] [place] [address] Performed By: #### 5 7021-8 ####[facility] [id number] [place] [id number] [place] Platelets (Bld) [#/Vol] 274 10*3/uL Normal 150-400 [facility] Comment on above: Order Comment: Speci men Type: BLOOD SPECIMENOrdering Facility: [facility] Address: [address] [place] [address] Performed By: #### 5 7021-8 ####[facility] [id number] [place] [address] [place] RBC (Bld) [#/Vol] 4.43 10*6/uL Normal 3.90-5.20 [facility] Comment on above: Order Comment: Speci men Type: BLOOD SPECIMENOrdering Facility: [facility] Address: [address] [place] [address] Performed By: #### 5 7021-8 ####[facility] [id number] [place] [address] [place] WBC (Bld) [#/Vol] 11.44 10*3/uL High 3.70-11.00 [facility] Comment on above: Order Comment: Speci men Type: BLOOD SPECIMENOrdering Facility: [facility] Address: [address] [place] [address] Performed By: #### 5 7021-8 ####[facility] [id number] [place] [id number] [place] T4 Free SerPl-mCncon 025 Free T4 [Mass/Vol] 0.9 ng/dL Normal 0.9-1.7 [facility] Comment on above: Order Comment: Speci men Type: BLOOD SPECIMENOrdering Facility: [facility] Address: [address] [place] [address] Performed By: #### 3 024-7, 3016-3 ####[facility] [id number] [place] [address] [place] TSH SerPl-aCncon 01-27-2025 TSH Qn 2.210 m[IU]/L Normal 0.270-4.200 [facility] Comment on above: Order Comment: Speci men Type: BLOOD SPECIMENOrdering Facility: [facility] Address: [address] [place] [address] Result Comment: If t he patient is [...] Santiago, et al. 2017 Guidelines of the [place] [employer] for the Diagnosis and Management of Thyroid Disease during and the . Thyroid, 2017:27:3:315-389. Performed By: #### 3 024-7, 3016-3 ####[facility] [id number] [place] [id number] [facility] C[facility]N Telephone (OBGYWM) -- JANET FRANK ([id number]) 2000 F CHT Date Time Provider Department 01/25/25 EMMANUEL HESS OBADONAY During your visit today, we recorded the following information about you: Vincent Hale RN 01/25/2025 9:48 AM Signed Emmanuel Hess MD to [facility] Ob-Gatekeeper Pool 01/25/25 8:37 AM Result Note weekly NST alternating w/ weekly BPP please. Emmanuel Hess MD OBSTETRIC ULTRASOUND [facility] Vincent Hale RN 01/25/2025 9:49 AM Addendum BPP order pending. Please file and will contact Pt to get appointments scheduled. US on 02/07/25 at 11am placed on hold as Pt has OB appt with KJ at 11:20am. VENKATESH Walker Tara, RN 01/25/2025 10:25 AM Addendum Contacted Pt and appts scheduled. US to [facility]. Vincent Hale RN Allergies As of Date: 01/25/2025 (No Known Allergies) Date Reviewed: 01/24/2025 Reviewed by: Lela Garcia MA - Fully Assessed Reason for Visit: Appointment [186] Primary Visit Diagnosis:Supervision of high risk in third trimester ([facility]) [O09.93] Other Visit Diagnoses:Obesity in ([facility]) [O99.210] Polyhydramnios in third trimester complication, single or unspecified fetus ([facility]) [O40.3XX0] Order(s):BIOPHYSICAL PROFILE [facility] [[id number]] Order #: [id number]: 1 STANDING Prescriptions as of 01/25/2025 - [...] mouth three times a day. - VIT 7-IANO-EXFOM-DHA ORAL Take by mouth. Problem List As [...] Status:Closed by VINCENT HALE on 01/25/25 Normal [facility] Peggy 12-29-2024 CNPN Telephone (OBGYWM) -- JANET FRANK ([id number]) 2000 F CHT Date Time Provider Department 12/29/24 STEFFANIE LOPEZ During your visit today, we recorded the following information about you: Vincent Hale RN 12/29/2024 12:45 PM Signed 29w5d Pt call re: lab results [facility] and asking if [...] BLOOD COUNT AND DIFFERENTIAL [SQCBCDIF] Order #: [id number] FUTURE Prescriptions as of 12/29/2024 - nitrofurantoin [...] mouth three times a day. - VIT 1-LQBQ-LMPNT-DHA ORAL Take by mouth. Problem List As [...] Status:Closed by VINCENT HALE on 12/29/24 Normal [facility] Telephone ([id number]) -- JANET FRANK ([id number]) 2000 F T Date Time Provider Department 12/29/24 STEFFANIE NEELY [id number] During your visit today, we recorded the following information about you: Steffanie Neely RN 12/29/2024 9:10 AM Signed 3rd risk assessment form submitted 12/29/2024. 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 - VIT 4-LCFJ-WZJPN-DHA ORAL Take by mouth. Problem List As [...] Status:Closed by STEFFANIE NEELY on 12/29/24 Normal [facility] CBC W Auto Differential pane l (Bld)on 12-28-2024 Basophils (Bld) [#/Vol] 0.05 10*3/uL Normal <0.11 [facility] Comment on above: Order Comment: Speci men Type: BLOOD SPECIMENOrdering Facility: [facility] Address: [address] [place] [address] Performed By: #### 5 7021-8 ####[facility] [id number] [place] [address] [place] Basophils/100 WBC (Bld) 0.4 % Normal [facility] Comment on above: Order Comment: Speci men Type: BLOOD SPECIMENOrdering Facility: [facility] Address: [address] [place] [address] Performed By: #### 5 7021-8 ####[facility] [id number] [place] [address] [place] Differential cell count method Nom (Bld) Auto Normal [facility] Comment on above: Order Comment: Speci men Type: BLOOD SPECIMENOrdering Facility: [facility] Address: [address] [place] [address] Performed By: #### 5 7021-8 ####[facility] [id number] [place] [address] [place] Eosinophils (Bld) [#/Vol] 0.14 10*3/uL Normal <0.46 [facility] Comment on above: Order Comment: Speci men Type: BLOOD SPECIMENOrdering Facility: [facility] Address: [address] [place] [address] Performed By: #### 5 7021-8 ####[facility] [id number] [place] [address] [place] Eosinophils/100 WBC (Bld) 1.2 % Normal [facility] Comment on above: Order Comment: Speci men Type: BLOOD SPECIMENOrdering Facility: [facility] Address: [address] [place] [address] Performed By: #### 5 7021-8 ####[facility] [id number] [place] [address] [place] Erythrocyte distribution width (RBC) [Ratio] 13.4 % Normal 11.5-15.0 [facility] Comment on above: Order Comment: Speci men Type: BLOOD SPECIMENOrdering Facility: [facility] Address: [address] [place] [address] Performed By: #### 5 7021-8 ####[facility] [id number] [place] [address] [place] Hematocrit (Bld) [Volume fraction] 31.2 % Low 36.0-46.0 [facility] Comment on above: Order Comment: Speci men Type: BLOOD SPECIMENOrdering Facility: [facility] Address: [address] [place] [address] Performed By: #### 5 7021-8 ####[facility] [id number] [place] [address] [place] Hemoglobin (Bld) [Mass/Vol] 10.5 g/dL Low 11.5-15.5 [facility] Comment on above: Order Comment: Speci men Type: BLOOD SPECIMENOrdering Facility: [facility] Address: [address] [place] [address] Performed By: #### 5 7021-8 ####[facility] [id number] [place] [address] [place] Immature granulocytes (Bld) [#/Vol] 0.18 10*3/uL High <0.10 [facility] Comment on above: Order Comment: Speci men Type: BLOOD SPECIMENOrdering Facility: [facility] Address: [address] [place] [address] Performed By: #### 5 7021-8 ####[facility] JENNIFERWNCLIA [id number] [place] [address] [place] Immature granulocytes/100 WBC (Bld) 1.5 % Normal [facility] Comment on above: Order Comment: Speci men Type: BLOOD SPECIMENOrdering Facility: [facility] Address: [address] [place] [address] Performed By: #### 5 7021-8 ####[facility] [id number] [place] [address] [place] Lymphocytes (Bld) [#/Vol] 1.60 10*3/uL Normal 1.00-4.00 [facility] Comment on above: Order Comment: Speci men Type: BLOOD SPECIMENOrdering Facility: [facility] Address: [address] [place] [address] Performed By: #### 5 7021-8 ####[facility] [id number] [place] [address] [place] Lymphocytes/100 WBC (Bld) 13.4 % Normal [facility] Comment on above: Order Comment: Speci men Type: BLOOD SPECIMENOrdering Facility: [facility] Address: [address] [place] [address] Performed By: #### 5 7021-8 ####[facility] [id number] [place] [address] [place] MCH (RBC) [Entitic mass] 25.5 pg Low 26.0-34.0 [facility] Comment on above: Order Comment: Speci men Type: BLOOD SPECIMENOrdering Facility: [facility] Address: [address] [place] [address] Performed By: #### 5 7021-8 ####[facility] [id number] [place] [address] [place] MCHC (RBC) [Mass/Vol] 33.7 g/dL Normal 30.5-36.0 [facility] Comment on above: Order Comment: Speci men Type: BLOOD SPECIMENOrdering Facility: [facility] Address: [address] [place] [address] Performed By: #### 5 7021-8 ####[facility] [id number] [place] [address] [place] MCV (RBC) [Entitic vol] 75.9 fL Low 80.0-100.0 [facility] Comment on above: Order Comment: Speci men Type: BLOOD SPECIMENOrdering Facility: [facility] Address: [address] [place] [address] Performed By: #### 5 7021-8 ####[facility] [id number] [place] [address] [place] Monocytes (Bld) [#/Vol] 0.75 10*3/uL Normal <0.87 [facility] Comment on above: Order Comment: Speci men Type: BLOOD SPECIMENOrdering Facility: [facility] Address: [address] [place] [address] Performed By: #### 5 7021-8 ####[facility] [id number] [place] [address] [place] Monocytes/100 WBC (Bld) 6.3 % Normal [facility] Comment on above: Order Comment: Speci men Type: BLOOD SPECIMENOrdering Facility: [facility] Address: [address] [place] [address] Performed By: #### 5 7021-8 ####[facility] [id number] [place] [address] [place] Neutrophils (Bld) [#/Vol] 9.18 10*3/uL High 1.45-7.50 [facility] Comment on above: Order Comment: Speci men Type: BLOOD SPECIMENOrdering Facility: [facility] Address: [address] [place] [address] Performed By: #### 5 7021-8 ####[facility] [id number] [place] [address] [place] Neutrophils/100 WBC (Bld) 77.2 % Normal [facility] Comment on above: Order Comment: Speci men Type: BLOOD SPECIMENOrdering Facility: [facility] Address: [address] [place] [address] Performed By: #### 5 7021-8 ####[facility] [id number] [place] [address] [place] Nucleated RBC (Bld) [#/Vol] 10*3/uL Normal <0.01 [facility] Comment on above: Order Comment: Speci men Type: BLOOD SPECIMENOrdering Facility: [facility] Address: [address] [place] [address] Performed By: #### 5 7021-8 ####[facility] [id number] [place] [address] [place] Nucleated RBC/100 WBC (Bld) [Ratio] 0.0 /100 WBC Normal [facility] Comment on above: Order Comment: Speci men Type: BLOOD SPECIMENOrdering Facility: [facility] Address: [address] [place] [address] Performed By: #### 5 7021-8 ####[facility] [id number] [place] [address] [place] Platelet mean volume (Bld) [Entitic vol] 8.6 fL Low 9.0-12.7 [facility] Comment on above: Order Comment: Speci men Type: BLOOD SPECIMENOrdering Facility: [facility] Address: [address] [place] [address] Performed By: #### 5 7021-8 ####[facility] DRISSNCLIA [id number] [place] [address] [place] Platelets (Bld) [#/Vol] 268 10*3/uL Normal 150-400 [facility] Comment on above: Order Comment: Speci men Type: BLOOD SPECIMENOrdering Facility: [facility] Address: [address] [place] [address] Performed By: #### 5 7021-8 ####[facility] BARBIHAMILTONNCLIA [id number] [place] [address] [place] RBC (Bld) [#/Vol] 4.11 10*6/uL Normal 3.90-5.20 [facility] Comment on above: Order Comment: Speci men Type: BLOOD SPECIMENOrdering Facility: [facility] Address: [address] [place] [address] Performed By: #### 5 7021-8 ####[facility] BARBIHAMILTONNCLIA [id number] [place] [address] [place] WBC (Bld) [#/Vol] 11.90 10*3/uL High 3.70-11.00 [facility] Comment on above: Order Comment: Speci men Type: BLOOD SPECIMENOrdering Facility: [facility] Address: [address] [place] [address] Performed By: #### 5 7021-8 ####[facility] PARK[facility]CL[facility] [id number] [place] [address] [place] Examination level ultrasound on 12-28-2024 [facility] Radiology Study observation (narrative) [facility] Ferritin SerPl-mCncon 2024 Ferritin [Mass/Vol] 11.9 ng/mL Low 14.7-205.1 [facility] Comment on above: Order Comment: Speci men Type: BLOOD SPECIMENOrdering Facility: [facility] Address: [address] [place], [place] [address] Performed By: #### 2 276-4, 51248-4 ####[facility] LABCLIA [id number] [address] [address] [place] GESTATIONAL GLUCOSE SCREEN, 1-HOUR, 50 GRAM, NON-FASTINGon 12-28-2024 Glucose [Mass/Vol] 131 mg/dL Normal 74-134 [facility] Comment on above: Order Comment: Speci men Type: BLOOD SPECIMENOrdering Facility: [facility] Address: [address] [place] [address] Result Comment: [facility] Congress of Obstetricians and Gynecologists (Yoav/Campbell) guidelines state a gestational diabetes mellitus positive screen is made, in women not previously diagnosed with overt diabetes, when the 1 hr plasma glucose level is equal to or above 140 mg/dL. [facility] [employer] [facility] recommends a 135 mg/dL cutoff. Performed By: #### G LTGST ####[facility] [id number] [place] [id number] [place] Iron and Iron binding capaci ty panelon 12-28-2024 Iron [Mass/Vol] 33 ug/dL Low 41-186 [facility] Comment on above: Order Comment: Speci men Type: BLOOD SPECIMENOrdering Facility: [facility] Address: [address] [place] [address] Performed By: #### 2 276-4, 94787-0 ####[facility] [id number] [place] [id number] [place] Iron binding capacity [Mass/Vol] >533 High 232-386 [facility] Comment on above: Order Comment: Speci men Type: BLOOD SPECIMENOrdering Facility: [facility] Address: [address] [place], [place] [address] Performed By: #### 2 276-4, 42674-8 ####[facility] [id number] [place] [address] [place] Iron/TIBC [Molar ratio] <6.2 Low 15.0-57.0 [facility] Comment on above: Order Comment: Speci men Type: BLOOD SPECIMENOrdering Facility: [facility] Address: [address] [place] [address] Performed By: #### 2 276-4, 08054-0 ####[facility] [id number] [place] [address] [place] Reagin and Treponema pallidu m IgG and IgM [Interp]on 12-28-2024 T. pallidum IgG+IgM IA Ql (S) Non-Reactive Normal Nonreactive [facility] Comment on above: Order Comment: Speci men Type: BLOOD SPECIMENOrdering Facility: [facility] Address: [address] [place] [address] Performed By: #### 7 3752-8 ####[facility] [id number] [place] [address] [place] Reagin+T pallidum IgG+IgM Se rPl-Impon 12-28-2024 Reagin and Treponema pallidum IgG and IgM [Interp] Cannot exclude recent Treponemal infection if specimen collected within 7-10 days after appearance of suspect lesions or 2-3 weeks after an exposure. Clinical correlation is required. Normal [facility] Comment on above: Order Comment: Speci men Type: BLOOD SPECIMENOrdering Facility: [facility] Address: [address] [place] [address] Performed By: #### 7 3752-8 ####[facility] [id number] [place] [address] [place] T4 Free SerPl-mCncon 025 Free T4 [Mass/Vol] 0.9 ng/dL Normal 0.9-1.7 [facility] Comment on above: Order Comment: Speci men Type: BLOOD SPECIMENOrdering Facility: [facility] Address: [address] [place], [place] [address] [id number] Performed By: #### 3 024-7, 3016-3 ####[facility] [id number] [place] [address] [place] TSH SerPl-aCncon 12-28-2024 TSH Qn 1.820 m[IU]/L Normal 0.270-4.200 [facility] Comment on above: Order Comment: Speci men Type: BLOOD SPECIMENOrdering Facility: [facility] Address: [address] [facility] [place] [address] Result Comment: If t he patient is , TSH reference range varies by gestational period: First Trimester (weeks 9-12): 0.180-2.990 mIU/L Second Trimester: 0.110-3.980 mIU/L Third Trimester: 0.480-4.710 mIU/L Yariel Garcia et al. A Practical Approach for the Verifications and Determination of Site- and Trimester-Specific Reference Intervals for Thyroid Function tests in . Thyroid, 2019:29:3:412-420. Juan E, et al. 2017 Guidelines of the [place] Thyroid Association for the Diagnosis and Management of Thyroid Disease during and the . Thyroid, 2017:27:3:315-389. Performed By: #### 3 024-7, 3016-3 ####[facility] [id number] [place] [id number] [place] Urine Cultureon 12-26-2024 URC Below infection leve l. Mixed Gram Positive Organisms [place] Count 1000-10,000 MIXC Mixed contaminants. Submit a new specimen if indicated. Normal [facility] Comment on above: Performed By: #### M 100.2200 ####[facility] [id number] [place], [address] (ROM) Rupture Of Membraneson 12-23-2024 ROM Negative Normal Negative [facility] Comment on above: Result Comment: Amni otic fluid not present indicates No Rupture of Membranes at time of specimen collection. Performed By: #### L 205.1000 ####[facility] [id number] [place], [address] Bilirubin Test strip Ql (U)O rdered By: Roxana Fry on 12-23-2024 Bilirubin Ql (U) Negative Negative [facility] CNPNon 12-23-2024 CNPN Telephone (OBGYWM) -- JANET FRANK ([id number]) 2000 F CHT Date Time Provider Department [...] kick counts. Patient advised to go to [facility] for evaluation, voiced understanding. FYI. Asia Garzon [...] mouth three times a day. - VIT 8-AEUI-UOHJZ-DHA ORAL Take by mouth. Problem List As [...] Status:Closed by ASIA GARZON on 12/23/24 Normal [facility] Discharge Instructionon 12-03 Discharge Instruction [facility] Medical Records Department [address] [place] [address] Instructions for Home/Discharge Instructions 12/23/242122 MR#: [id number] Acct: [id number] Name: JANET FRANK Rep #: [id number] : 2000 24 From: Roxana Fry CNM [...] CC: Dr. Genie Jackson MD Signed Normal [facility] Ketones Test strip Ql (U)Ord ered By: Roxana Fry on 12-23-2024 Ketones Ql (U) Negative Negative [facility] Microscopic analysis of urin e for red blood cells (RBC)Ordered By: Roxana Fry on 12-23-2024 Microscopic analysis of urine for red blood cells (RBC) 0-5 SEEN /hpf 0-5 [facility] Mucus LM Ql (Urine sed)Order ed By: Roxana Fry on 12-23-2024 Mucus Ql (Urine sed) 0 SEEN /hpf [facility] Nitrite Test strip Ql (U)Ord ered By: Roxana Fry on 12-23-2024 Nitrite Ql (U) Negative Negative [facility] OB Triage Physician Noteon 0 12-23-2024 OB Triage Physician Note [facility] Medical Records Department [address] [place] [address] OB Triage Physician Note 12/23/242117 MR#: [id number] Acct: [id number] Name: JANET FRANK Rep #: [id number] : 2000 24 From: Roxana Fry CNM PCP: Dr. Genie Jackson MD Status:DEP CLI Y Location: [facility] HPI - General HPI Narrative [...] Fry; Dr. Genie Jackson MD Signed Normal [facility] Protein Test strip Ql (U)Ord ered By: Roxana Fry on 12-23-2024 Protein Ql (U) 30 mg/dl High Negative [facility] Squamous epithelial cells de tection in urine sediment by light microscopyOrdered By: Roxana Fry on 12-23-2024 Epithelial cells.squamous LM Ql (Urine sed) 0-5 SEEN /hpf 5-10 [facility] Urinalysis, Completeon 12-23 EPI,SQUAMOUS 0-5 SEEN Normal 5-10 [facility] Comment on above: Order Comment: CLEAN CATCH Performed By: #### L 400.0001 #### [facility] [address] [place], [address] RBC 0-5 SEEN Normal 0-5 [facility] Comment on above: Order Comment: CLEAN CATCH Performed By: #### L 400.0001 #### [facility] [address] [place], [address] WBC 0-5 SEEN Normal 0-5 [facility] Comment on above: Order Comment: CLEAN CATCH Performed By: #### L 400.0001 #### [facility] [address] [place], [address] BACTERIA 0 SEEN Normal None Seen [facility] Comment on above: Order Comment: CLEAN CATCH Performed By: #### L 400.0001 #### [facility] [address] [place], [address] Mucus Ql (Urine sed) 0 SEEN Normal [facility] Comment on above: Order Comment: CLEAN CATCH Performed By: #### L 400.0001 #### [facility] [address] [place], [address] Urine clarityOrdered By: Nadia Fry on 12-23-2024 Clarity (U) Clear Clear [facility] Urine color determinationOrd ered By: Roxana Fry on 12-23-2024 Color (U) Yellow Yellow [facility] Urine glucose detectionOrder ed By: Roxana Fry on 12-23-2024 Glucose Ql (U) Normal mg/dl Normal [facility] Urine leukocyte esterase det ection by dipstickOrdered By: Roxana Fry on 12-23-2024 Leukocyte esterase Test strip Ql (U) Negative Negative [facility] Urine pHOrdered By: Roxana Fry on 12-23-2024 pH (U) 6.5 [pH] 5.0 - 8.0 [facility] Urine sediment bacteria coun t by microscopy (number/high power field)Ordered By: Roxana Fry on 12-23-2024 Bacteria LM.HPF (Urine sed) [#/Area] 0 /[HPF] None Seen [facility] Urine specific gravity measu rementOrdered By: Roxana Fry on 12-23-2024 Specific gravity (U) [Rel density] 1.010 1.002-1.030 [facility] Urine urobilinogen measureme ntOrdered By: Roxana Fry on 12-23-2024 Urobilinogen Ql (U) Normal mg/dl Normal [facility] White blood cell countOrdere d By: Roxana Fry on 12-23-2024 White blood cell count 0-5 SEEN /hpf 0-5 [facility] Prot 24h Ur-mRateon 11-22-19 25 Protein (24H U) [Mass/Time] 0.28 g/24 Hr High <0.15 [facility] Comment on above: Order Comment: Speci men Type: URINE SPECIMENOrdering Facility: [facility] Address: [address] [place] [address] Result Comment: Adul t Proteinuria Categories: <0.15 g/24 hours is considered normal to mildly increased 0.15 - 0.50 g/24 hours is considered moderately increased >0.50 g/24 hours is considered severely increased KDIGO. (2013). KDIGO 2012 Clinical Practice Guideline for the Evaluation and Management of Chronic Kidney Disease. Official Journal of the International Society of Nephrology, 3(1), 1-150. Performed By: #### 2 889-4 ####[facility] [id number] [address] STATES OF [facility] [id number] [place] [address] [place] Protein (24H U) [Mass/Time]o n 11-21-2024 PERIOD (HRS) 24 hr Normal [facility] Comment on above: Order Comment: Speci men Type: URINE SPECIMENOrdering Facility: [facility] Address: [address] [place] [address] Performed By: #### 2 889-4 ####[facility] [id number] [address] [id number] [place] [address] [place] Specimen volume (24H U) 2.8 L Normal [facility] Comment on above: Order Comment: Speci men Type: URINE SPECIMENOrdering Facility: [facility] Address: [address] [place] [address] Performed By: #### 2 889-4 ####[facility] [id number] [address] [id number] [place] [address] [place] AST(SGOT)on 11-19-2024 AST [Catalytic activity/Vol] 19 U/L Normal <=31 [facility] Comment on above: Performed By: #### L 100.0500, L501.1105, L501.4100, L501.1400, L501.0900, L501.4405 #### [facility] [address] [place], [address] Alanine Aminotransferas (SGP T)on 11-19-2024 ALT [Catalytic activity/Vol] 11 U/L Normal <=34 [facility] Comment on above: Performed By: #### L 100.0500, L501.1105, L501.4100, L501.1400, L501.0900, L501.4405 #### [facility] [address] [place], [address] CBC-Complete Blood Cnt No Di ffon 11-19-2024 Erythrocyte distribution width (RBC) [Ratio] 14.1 % Normal 11.6-14.6 [facility] Comment on above: Performed By: #### L 100.0500, L501.1105, L501.4100, L501.1400, L501.0900, L501.4405 #### [facility] [address] [place], [address] Hematocrit (Bld) [Volume fraction] 31.5 % Low 37-47 [facility] Comment on above: Performed By: #### L 100.0500, L501.1105, L501.4100, L501.1400, L501.0900, L501.4405 #### [facility] [address] [place], [address] Hemoglobin (Bld) [Mass/Vol] 10.7 g/dL Low 12.0-15.0 [facility] Comment on above: Performed By: #### L 100.0500, L501.1105, L501.4100, L501.1400, L501.0900, L501.4405 #### [facility] [address] [place], [address] MCH (RBC) [Entitic mass] 26.2 pg Low 27.0-32.0 [facility] Comment on above: Performed By: #### L 100.0500, L501.1105, L501.4100, L501.1400, L501.0900, L501.4405 #### [facility] [address] [place], [address] MCHC (RBC) [Mass/Vol] 34.0 g/dL Normal 32-36 [facility] Comment on above: Performed By: #### L 100.0500, L501.1105, L501.4100, L501.1400, L501.0900, L501.4405 #### [facility] [address] [place], [address] MCV (RBC) [Entitic vol] 77.0 fL Low 81-99 [facility] Comment on above: Performed By: #### L 100.0500, L501.1105, L501.4100, L501.1400, L501.0900, L501.4405 #### [facility] [address] [place], [address] Platelet mean volume (Bld) [Entitic vol] 8.7 fL Normal 6.2-12.0 [facility] Comment on above: Performed By: #### L 100.0500, L501.1105, L501.4100, L501.1400, L501.0900, L501.4405 #### [facility] [address] [place], [address] Platelets (Bld) [#/Vol] 263 10*3/uL Normal 150-450 [facility] Comment on above: Performed By: #### L 100.0500, L501.1105, L501.4100, L501.1400, L501.0900, L501.4405 #### [facility] [address] [place], [address] RBC (Bld) [#/Vol] 4.09 10*6/uL Low 4.2-5.4 [facility] Comment on above: Performed By: #### L 100.0500, L501.1105, L501.4100, L501.1400, L501.0900, L501.4405 #### [facility] [address] [place], [address] RDW SD 39.1 fl Normal 35.1-43.9 [facility] Comment on above: Performed By: #### L 100.0500, L501.1105, L501.4100, L501.1400, L501.0900, L501.4405 #### [facility] [address] [place], [place], [address] WBC (Bld) [#/Vol] 13.3 10*3/uL High 4.4-11.0 [facility] Comment on above: Performed By: #### L 100.0500, L501.1105, L501.4100, L501.1400, L501.0900, L501.4405 #### [facility] [address] [place], [place], [address] CNPNon 11-19-2024 CNPN Telephone (OBGYWM) -- JANET FRANK ([id number]) 2000 F CHT Date Time Provider Department [...] Order(s):PROTEIN, 24 HOUR URINE [SQUTP24] Order #: [id number]. #:[id number] Prescriptions as of 11/21/2024 - levothyroxine (SYNTHROID) 125 mcg tablet Take 0.5 tablets by mouth daily before breakfast. - busPIRone (BUSPAR) 15 mg tablet Take 1 tablet by mouth three times a day. - aspirin, enteric coated (ECOTRIN LOW STRENGTH) 81 mg EC tablet Take 2 tablets by mouth once daily. - VIT 5-LQFC-AIWVT-DHA ORAL Take by mouth. - sertraline (ZOLOFT) [...] Status:Closed by ASIA GARZON on 11/21/24 Normal [facility] Erythrocyte distribution wid th ratioOrdered By: Steffanie Lopez on 11-19-2024 Erythrocyte distribution width (RBC) [Ratio] 14.1 % 11.6-14.6 [facility] Erythrocyte distribution wid th standard deviationOrdered By: Steffanie Lopez on 11-19-2024 Erythrocyte distribution width (RBC) [Ratio] 39.1 fl 35.1-43.9 [facility] Glomerular filtration rate ( GFR) estimation/1.73 sq m using serum, plasma, or whole bOrdered By: Steffanie Lopez on 11-19-2024 GFR/1.73 sq M.predicted among non-blacks MDRD (S/P/Bld) [Vol rate/Area] 137 mL/min/{1.73_m2} >60 [facility] Comment on above: mL/min/1.73m2 CKD-EP I Creatinine Equation (2020) Hematocrit Auto (Bld) [Volum e fraction]Ordered By: Steffanie Lopez on 11-19-2024 Hematocrit (Bld) [Volume fraction] 31.5 % Low 37-47 [facility] Hemoglobin measurementOrdere d By: Steffanie Lopez on 11-19-2024 Hemoglobin (Bld) [Mass/Vol] 10.7 g/dL Low 12.0-15.0 [facility] Laboratory - Chemistry and C hemistry - challengeOrdered By: Steffanie Lopez on 11-19-2024 AST [Catalytic activity/Vol] 19 U/L <32 [facility] MCV (mean corpuscular volume ) determinationOrdered By: Steffanie Lopez on 11-19-2024 MCV (RBC) [Entitic vol] 77.0 fL Low 81-99 [facility] Mean corpuscular hemoglobin (MCH) determinationOrdered By: Steffanie Lopez on 11-19-2024 MCH (RBC) [Entitic mass] 26.2 pg Low 27.0-32.0 [facility] Mean corpuscular hemoglobin concentration (MCHC) determinationOrdered By: Steffanie Lopez on 11-19-2024 MCHC (RBC) [Mass/Vol] 34.0 g/dL 32-36 [facility] Mean platelet volume determi nationOrdered By: Steffanie Lopez on 11-19-2024 Platelet mean volume (Bld) [Entitic vol] 8.7 fL 6.2-12.0 [facility] OB Triage Physician Noteon 0 11-19-2024 OB Triage Physician Note [facility] Medical Records Department [address] [place] [address] OB Triage Physician Note 11/19/24 2349 MR#: [id number] Acct: [id number] Name: JANET FRANK Rep #: [id number] : 2000 24 From: Steffanie Lopez MD PCP: Dr. Genie Jackson MD Status:DEP [facility] Y Location: [facility] HPI - General General Date of Admission: 11/19/24 Date of Service: 11/19/24 Chief Complaint: headache HPI Narrative JANET FRAKN, is a 24 F who presents with [...] Final KELLEY: 03/11/25 Gestational age: 22 PFSH [facility] Medical History Colitis GERD (gastroesophageal reflux disease) [...] MD; Dr. Genie Jackson MD Signed Normal [facility] Platelet countOrdered By: Remigio Lopez on 11-19-2024 Platelets (Bld) [#/Vol] 263 10*3/uL 150-450 [facility] Protein+Creatinine Ratio,Uri neon 11-19-2024 PROT:CRE RATIO 519 mg/g CRE High 0-200 [facility] Comment on above: Performed By: #### L 100.0500, L501.1105, L501.4100, L501.1400, L501.0900, L501.4405 #### [facility] [address] [place], [address] Protein (U) [Mass/Vol] 11.1 mg/dL Normal 0.0-12.0 [facility] Comment on above: Performed By: #### L 100.0500, L501.1105, L501.4100, L501.1400, L501.0900, L501.4405 #### [facility] [address] [place], [address] UR CREAT 21.40 mg/dL Low 28.00-217.00 [facility] Comment on above: Performed By: #### L 100.0500, L501.1105, L501.4100, L501.1400, L501.0900, L501.4405 #### [facility] [address] [place], [address] RBC Auto (Bld) [#/Vol]Ordere d By: Steffanie Lopez on 11-19-2024 RBC (Bld) [#/Vol] 4.09 10*6/uL Low 4.2-5.4 [facility] Random urine creatinine lesley urement (mass/volume)Ordered By: Steffanie Lopez on 11-19-2024 Creatinine Unsp time (U) [Mass/Vol] 21.40 mg/dL Low 28.00-217.00 [facility] Serum Creatinine AND GFRon 0 11-19-2024 Creatinine [Mass/Vol] 0.44 mg/dL Low 0.70-1.20 [facility] Comment on above: Performed By: #### L 100.0500, L501.1105, L501.4100, L501.1400, L501.0900, L501.4405 #### [facility] [address] [place], [address] ECRCL 249.90 ml/min Normal 50-250 [facility] Comment on above: Performed By: #### L 100.0500, L501.1105, L501.4100, L501.1400, L501.0900, L501.4405 #### [facility] [address] [place], [address] GFR/1.73 sq M.predicted among non-blacks MDRD (S/P/Bld) [Vol rate/Area] 137 mL/min/{1.73_m2} Normal >60 [facility] Comment on above: Result Comment: mL/m in/1.73m2 CKD-EPI Creatinine Equation (2020) Performed By: #### L 100.0500, L501.1105, L501.4100, L501.1400, L501.0900, L501.4405 #### [facility] [address] [place], [address] Serum creatinine measurement (mass/volume)Ordered By: Steffanie Lopez on 11-19-2024 Creatinine [Mass/Vol] 0.44 mg/dL Low 0.70-1.20 [facility] Serum or plasma alanine jacome otransferase (ALT) measurementOrdered By: Steffanie Lopez on 11-19-2024 ALT [Catalytic activity/Vol] 11 U/L <35 [facility] Serum or plasma uric acid me asurement (mass/volume)Ordered By: Steffanie Lopez on 11-19-2024 Urate [Mass/Vol] 4.4 mg/dL 2.6-6.0 [facility] Comment on above: The drugs N-Acetylcy steine and Metamizole may falsely depress this assay. Uric Acidon 11-19-2024 URIC 4.4 mg/dL Normal 2.6-6.0 [facility] Comment on above: Result Comment: The drugs N-Acetylcysteine and Metamizole may falsely depress this assay. Performed By: #### L 100.0500, L501.1105, L501.4100, L501.1400, L501.0900, L501.4405 #### [facility] [address] [place], [address] Urine protein measurement (m ass/volume)Ordered By: Steffanie Lopez on 11-19-2024 Protein (U) [Mass/Vol] 11.1 mg/dL 0.0-12.0 [facility] Urine protein/creatinine mas s ratioOrdered By: Steffanie Lopez on 11-19-2024 Protein/Creatinine (U) [Mass ratio] 519 mg/g CRE High 0-200 [facility] White blood cell (WBC) count Ordered By: Steffanie Lopez on 11-19-2024 WBC (Bld) [#/Vol] 13.3 10*3/uL High 4.4-11.0 [facility] CNPNon [facility]-20[facility] JANET FRANK ([id number]) 2000 F [facility] Date Time Provider Department 11/16/24 JOYCE RESTREPOGY [...] tablets by mouth once daily. - VIT 8-BLJY-FFLEU-DHA ORAL Take by mouth. - sertraline (ZOLOFT) [...] Encounter Status:Closed by STEFFANIE LOZADA on 11/16/24 [facility] 10-27-2024 [facility][id number] -- JANET FRANK ([id number]) 2000 F T Date Time Provider Department 10/27/24 STEFFANIE NEELY [id number] During your visit today, we recorded the following information about you: Steffanie Neely RN 10/27/2024 9:36 AM Signed 2nd risk assessment form submitted 10/27/2024. 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 - busPIRone (BUSPAR) 15 mg tablet Take 1 tablet by mouth three times a day. - aspirin, enteric coated (ECOTRIN LOW STRENGTH) 81 mg EC tablet Take 2 tablets by mouth once daily. - VIT 4-XIQB-SNPNQ-DHA ORAL Take by mouth. - sertraline (ZOLOFT) [...] Status:Closed by STEFFANIE NEELY on 10/27/24 Normal [facility] Examination level ultrasound on 10-26-2024 Indication [...] 0 oz EFW by: Hadlock (HC-AC-FL) Extended [employer]ting Tr[employer] Worker 5.6 mm CM 4.0 mm 16% Nicolaides [...] normal LVOT view: normal 3-vessel view: normal 1-cmtkio-wwzweic view: normal Heart / Thorax Situs: situs [...] Read By: Nava Duran M.D. MATERNAL MEDICINE [facility] Radiology Study observation (narrative) [facility] T4 [facility] Free T4 [Mass/Vol] 0.7 ng/dL Low 0.9-1.7 [facility] Comment on above: Order Comment: Speci men Type: BLOOD SPECIMENOrdering Facility: [facility] Address: [address] [place] [address] Performed By: #### 3 024-7, 3015-3 ####[facility] [id number] [address] STATES OF [facility] TSH SerPl-aCncon 10-25-2024 TSH Qn 1.960 m[IU]/L Normal 0.270-4.200 [facility] Comment on above: Order Comment: Speci men Type: BLOOD SPECIMENOrdering Facility: [facility] Address: [address] [place] [address] Result Comment: If t he patient is [...] Santiago, et al. 2017 Guidelines of the [place] [employer] for the Diagnosis and Management of Thyroid Disease during and the . Thyroid, 2017:27:3:315-389. 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 trachomatis+N. gonorrhoea e DNA RODERICK+probe Ql (Unsp spec)on 09-29-2024 C. trachomatis rRNA RODERICK+probe Ql (Unsp spec) Not detected Normal Not detected [facility] Comment on above: Order Comment: Speci men Type: SWABOrdering Facility: [facility] Address: [address] [place] [address] Performed By: #### 3 6902-5, TRVAMP ####[facility] [id number] [place] [address] [place] N. gonorrhoeae rRNA RODERICK+probe Ql (Unsp spec) Not detected Normal Not detected [facility] Comment on above: Order Comment: Speci men Type: SWABOrdering Facility: [facility] Address: [address] [place] [address] Performed By: #### 3 6902-5, TRVAMP ####[facility] [id number] [place] [address] [place] TRICHOMONAS VAGINALIS NAATon 09-29-2024 T. vaginalis DNA RODERICK+probe Ql (Unsp spec) Not detected Normal Not detected [facility] Comment on above: Order Comment: Speci men Type: SWABOrdering Facility: [facility] Address: [address] [place], [place] [address] Performed By: #### 3 6902-5, TRVAMP ####[facility] [id number] [place] [address] [place] T4 Free SerPl-mCncon 025 Free T4 [Mass/Vol] 0.8 ng/dL Low 0.9-1.7 [facility] Comment on above: Order Comment: Speci men Type: BLOOD SPECIMENOrdering Facility: [facility] Address: [address] [place] [address] Performed By: #### 3 024-7, 3016-3 ####[facility] [id number] [address] [place] TSH SerPl-aCncon 09-23-2024 TSH Qn 2.440 m[IU]/L Normal 0.270-4.200 [facility] Comment on above: Order Comment: Speci men Type: BLOOD SPECIMENOrdering Facility: [facility] Address: [address] [place] [address] Result Comment: If t he patient is [...] Santiago, et al. 2017 Guidelines of the [place] Thyroid Association for the Diagnosis and Management of Thyroid Disease during and the . Thyroid, 2017:27:3:315-389. Performed By: #### 3 024-7, 3016-3 ####[facility] [id number] [place] [id number] [place] Examination level ultrasound on 08-31-2024 Indication First trimester anatomic survey History of preeclampsia, Maternal obesity, BMI >35 Impression The patient is referred for a first trimester anatomy scan including nuchal translucency measurement as clinically indicated. - Single, live, intrauterine . - [place] rump length measurement is consistent with the [...] prior assessment 12 w + 4 d KELELY by prior assessment: 03/11/2025 Ultrasound examination on: [...] view: visualized 4-chamber view with color: visualized 5-eioxdw-ktqkkgv view: normal Abdominal cord insertion: normal Stomach: [...] Read By: Zina Petersen M.D. MATERNAL MEDICINE [facility] Radiology Study observation (narrative) [facility] CBC W Auto Differential pane l (Bld)on 08-29-2024 Basophils (Bld) [#/Vol] 0.06 10*3/uL Normal <0.11 [facility] Comment on above: Order Comment: Speci men Type: BLOOD SPECIMENOrdering Facility: [facility] Address: [address] [place] [address] Performed By: #### 5 7021-8 ####[facility] [id number] [place] [address] [place] Basophils/100 WBC (Bld) 0.5 % Normal [facility] Comment on above: Order Comment: Speci men Type: BLOOD SPECIMENOrdering Facility: [facility] Address: [address] [place] [address] Performed By: #### 5 7021-8 ####[facility] [id number] [place] [address] [place] Differential cell count method Nom (Bld) Auto Normal [facility] Comment on above: Order Comment: Speci men Type: BLOOD SPECIMENOrdering Facility: [facility] Address: [address] [place] [address] Performed By: #### 5 7021-8 ####[facility] [id number] [place] [address] [place] Eosinophils (Bld) [#/Vol] 0.21 10*3/uL Normal <0.46 [facility] Comment on above: Order Comment: Speci men Type: BLOOD SPECIMENOrdering Facility: [facility] Address: [address] [place] [address] Performed By: #### 5 7021-8 ####[facility] [id number] [address], [place] [address] [place] Eosinophils/100 WBC (Bld) 1.7 % Normal [facility] Comment on above: Order Comment: Speci men Type: BLOOD SPECIMENOrdering Facility: [facility] Address: [address] [place] [address] Performed By: #### 5 7021-8 ####[facility] [id number] [address], [place] [address] [place] Erythrocyte distribution width (RBC) [Ratio] 15.5 % High 11.5-15.0 [facility] Comment on above: Order Comment: Speci men Type: BLOOD SPECIMENOrdering Facility: [facility] Address: [address] [place] [address] Performed By: #### 5 7021-8 ####[facility] [id number] [address], [place] [address] [place] Hematocrit (Bld) [Volume fraction] 33.8 % Low 36.0-46.0 [facility] Comment on above: Order Comment: Speci men Type: BLOOD SPECIMENOrdering Facility: [facility] Address: [address] [place] [address] Performed By: #### 5 7021-8 ####[facility] [id number] [address], [facility] [place] Hemoglobin (Bld) [Mass/Vol] 11.2 g/dL Low 11.5-15.5 [facility] Comment on above: Order Comment: Speci men Type: BLOOD SPECIMENOrdering Facility: [facility] Address: [address] [place] [address] Performed By: #### 5 7021-8 ####[facility] [id number] [place] [address] [place] Immature granulocytes (Bld) [#/Vol] 0.17 10*3/uL High <0.10 [facility] Comment on above: Order Comment: Speci men Type: BLOOD SPECIMENOrdering Facility: [facility] Address: [address] [place] [address] Performed By: #### 5 7021-8 ####[facility] [id number] [place] [address] [place] Immature granulocytes/100 WBC (Bld) 1.4 % Normal [facility] Comment on above: Order Comment: Speci men Type: BLOOD SPECIMENOrdering Facility: [facility] Address: [address] [place] [address] Performed By: #### 5 7021-8 ####[facility] [id number] [place] [address] [place] Lymphocytes (Bld) [#/Vol] 1.93 10*3/uL Normal 1.00-4.00 [facility] Comment on above: Order Comment: Speci men Type: BLOOD SPECIMENOrdering Facility: [facility] Address: [address] [place] [address] Performed By: #### 5 7021-8 ####[facility] [id number] [place] [address] [place] Lymphocytes/100 WBC (Bld) 15.6 % Normal [facility] Comment on above: Order Comment: Speci men Type: BLOOD SPECIMENOrdering Facility: [facility] Address: [address] [place] [address] Performed By: #### 5 7021-8 ####[facility] [id number] [place] [address] [place] MCH (RBC) [Entitic mass] 25.2 pg Low 26.0-34.0 [facility] Comment on above: Order Comment: Speci men Type: BLOOD SPECIMENOrdering Facility: [facility] Address: [address] [place] [address] Performed By: #### 5 7021-8 ####[facility] [id number] [place] [address] [place] MCHC (RBC) [Mass/Vol] 33.1 g/dL Normal 30.5-36.0 [facility] Comment on above: Order Comment: Speci men Type: BLOOD SPECIMENOrdering Facility: [facility] Address: [address] [place] [address] Performed By: #### 5 7021-8 ####[facility] [id number] [place] [address] [place] MCV (RBC) [Entitic vol] 76.0 fL Low 80.0-100.0 [facility] Comment on above: Order Comment: Speci men Type: BLOOD SPECIMENOrdering Facility: [facility] Address: [address] [place] [address] Performed By: #### 5 7021-8 ####[facility] [id number] [place] [address] [place] Monocytes (Bld) [#/Vol] 0.87 10*3/uL High <0.87 [facility] Comment on above: Order Comment: Speci men Type: BLOOD SPECIMENOrdering Facility: [facility] Address: [address] [place] [address] Performed By: #### 5 7021-8 ####[facility] [id number] [place] [address] [place] Monocytes/100 WBC (Bld) 7.0 % Normal [facility] Comment on above: Order Comment: Speci men Type: BLOOD SPECIMENOrdering Facility: [facility] Address: [address] [place] [address] Performed By: #### 5 7021-8 ####[facility] [id number] [address] [address] [place] Neutrophils (Bld) [#/Vol] 9.17 10*3/uL High 1.45-7.50 [facility] Comment on above: Order Comment: Speci men Type: BLOOD SPECIMENOrdering Facility: [facility] Address: [address] [place] [address] Performed By: #### 5 7021-8 ####[facility] [id number] [place] [address] [place] Neutrophils/100 WBC (Bld) 73.8 % Normal [facility] Comment on above: Order Comment: Speci men Type: BLOOD SPECIMENOrdering Facility: [facility] Address: [address] [place] [address] Performed By: #### 5 7021-8 ####[facility] [id number] [place] [address] [place] Nucleated RBC (Bld) [#/Vol] 10*3/uL Normal <0.01 [facility] Comment on above: Order Comment: Speci men Type: BLOOD SPECIMENOrdering Facility: [facility] Address: [address] [place] [address] Performed By: #### 5 7021-8 ####[facility] [id number] [place] [address] [place] Nucleated RBC/100 WBC (Bld) [Ratio] 0.0 /100 WBC Normal [facility] Comment on above: Order Comment: Speci men Type: BLOOD SPECIMENOrdering Facility: [facility] Address: [address] [place] [address] Performed By: #### 5 7021-8 ####[facility] [id number] [place] [id number] [place] Platelet mean volume (Bld) [Entitic vol] 9.7 fL Normal 9.0-12.7 [facility] Comment on above: Order Comment: Speci men Type: BLOOD SPECIMENOrdering Facility: [facility] Address: [address] [place] [address] Performed By: #### 5 7021-8 ####[facility] [id number] [address] [address] [place] Platelets (Bld) [#/Vol] 275 10*3/uL Normal 150-400 [facility] Comment on above: Order Comment: Speci men Type: BLOOD SPECIMENOrdering Facility: [facility] Address: [address] [place] [address] Performed By: #### 5 7021-8 ####[facility] [id number] [place] [address] [place] RBC (Bld) [#/Vol] 4.45 10*6/uL Normal 3.90-5.20 [facility] Comment on above: Order Comment: Speci men Type: BLOOD SPECIMENOrdering Facility: [facility] Address: [address] [place] [address] Performed By: #### 5 7021-8 ####[facility] [id number] [place] [address] [place] WBC (Bld) [#/Vol] 12.41 10*3/uL High 3.70-11.00 [facility] Comment on above: Order Comment: Speci men Type: BLOOD SPECIMENOrdering Facility: [facility] Address: [address] [place] [address] Performed By: #### 5 7021-8 ####[facility] [id number] [place] [id number] [place] Comprehensive metabolic 2000 panelon 08-29-2024 Albumin [Mass/Vol] 3.7 g/dL Low 3.9-4.9 [facility] Comment on above: Order Comment: Speci men Type: BLOOD SPECIMENOrdering Facility: [facility] Address: [address] [place] [address] [place] [address] Performed By: #### 2 4323-8, 3016-3 ####[facility] [id number] [facility] [address] [place] [address] [place] ALP [Catalytic activity/Vol] 61 U/L Normal 34-123 [facility] Comment on above: Order Comment: Speci men Type: BLOOD SPECIMENOrdering Facility: [facility] Address: [address] [place], [place] [address] Performed By: #### 2 4323-8, 6-3 ####[facility] [id number] [facility] [address] [place] [address] [place] ALT [Catalytic activity/Vol] 14 U/L Normal 7-38 [facility] Comment on above: Order Comment: Speci men Type: BLOOD SPECIMENOrdering Facility: [facility] Address: [address] [place], [place] [address] Performed By: #### 2 432-8, 6-3 ####[facility] [id number] [facility] [address] [place] [address] [place] Anion gap [Moles/Vol] 11 mmol/L Normal 8-15 [facility] Comment on above: Order Comment: Speci men Type: BLOOD SPECIMENOrdering Facility: [facility] Address: [address] [place] [address] Performed By: #### 2 4323-8, 6-3 ####[facility] [id number] [facility] [address] [place] [address] [place] AST [Catalytic activity/Vol] 26 U/L Normal 13-35 [facility] Comment on above: Order Comment: Speci men Type: BLOOD SPECIMENOrdering Facility: [facility] Address: [address] [place] [address] Performed By: #### 2 4323-8, 3016-3 ####[facility] [id number] [facility] [place] [place] [address] [place] Bilirubin [Mass/Vol] 0.2 mg/dL Normal 0.2-1.3 [facility] Comment on above: Order Comment: Speci men Type: BLOOD SPECIMENOrdering Facility: [facility] Address: [address] [place] [address] Performed By: #### 2 4323-8, 3016-3 ####[facility] [id number] [place] [address] [place] Calcium [Mass/Vol] 8.9 mg/dL Normal 8.5-10.2 [facility] Comment on above: Order Comment: Speci men Type: BLOOD SPECIMENOrdering Facility: [facility] Address: [address] [place] [address] Performed By: #### 2 4323-8, 6-3 ####[facility] [id number] [place] [address] [place] Chloride [Moles/Vol] 103 mmol/L Normal 98-107 [facility] Comment on above: Order Comment: Speci men Type: BLOOD SPECIMENOrdering Facility: [facility] Address: [address] [place] [address] Performed By: #### 2 4323-8, 6-3 ####[facility] [id number] [place] [address] [place] CO2 [Moles/Vol] 21 mmol/L Low 22-30 [facility] Comment on above: Order Comment: Speci men Type: BLOOD SPECIMENOrdering Facility: [facility] Address: [address] [place], [place] [address] Performed By: #### 2 4323-8, 3016-3 ####[facility] [id number] [place] [id number] [place] Creatinine [Mass/Vol] 0.49 mg/dL Low 0.58-0.96 [facility] Comment on above: Order Comment: Nelly clay Type: BLOOD SPECIMENOrdering Facility: [facility] Address: [address] [place] [address] Performed By: #### 2 4323-8, 3016-3 ####[facility] [id number] [place] [id number] [place] Creatinine and Glomerular filtration rate.predicted panel (S/P/Bld) 133 mL/min/1.73m??? Normal >=60 [facility] Comment on above: Order Comment: [place] Type: BLOOD SPECIMENOrdering Facility: [facility] Address: [address] [place] [address] Result Comment: Nadya mated Glomerular Filtration Rate [...] GFR. Performed By: #### 2 4323-8, 6-3 ####[facility] [id number] [place] [id number] [place] Glucose [Mass/Vol] 75 mg/dL Normal 74-99 [facility] Comment on above: Order Comment: [place] Type: BLOOD SPECIMENOrdering Facility: [facility] Address: [address] [place] [address] Result Comment: The [place] Diabetes Association (ADA) provides guidance for cutoff [...] Standards of Medical Care in Diabetes 2016, [place] Diabetes Association. Diabetes Care. 2016.39(Suppl 1). Performed By: #### 2 4323-8, 6-3 ####[facility] [id number] [address] [address] [place] Potassium [Moles/Vol] 4.1 mmol/L Normal 3.7-5.1 [facility] Comment on above: Order Comment: Speci men Type: BLOOD SPECIMENOrdering Facility: [facility] Address: [address] [place] [address] Performed By: #### 2 4323-8, 3015-3 ####[facility] [id number] [place] [address] [place] Protein [Mass/Vol] 7.0 g/dL Normal 6.3-8.0 [facility] Comment on above: Order Comment: Speci men Type: BLOOD SPECIMENOrdering Facility: [facility] Address: [address] [place] [address] Performed By: #### 2 4323-8, 3 ####[facility] [id number] [place] [id number] [place] Sodium [Moles/Vol] 135 mmol/L Low 136-144 [facility] Comment on above: Order Comment: Speci men Type: BLOOD SPECIMENOrdering Facility: [facility] Address: [address] [place] [address] Performed By: #### 2 4323-8, 3015-3 ####[facility] [id number] [address] [address] [place] Urea nitrogen [Mass/Vol] 8 mg/dL Normal 7-21 [facility] Comment on above: Order Comment: Speci men Type: BLOOD SPECIMENOrdering Facility: [facility] Address: [address] [place] [address] Performed By: #### 2 4323-8, 6-3 ####[facility] [id number] [place] [address] [place] HBV surface Ag Ser Qlon 08-03 HBV surface Ag Ql (S) Negative Normal Negative [facility] Comment on above: Order Comment: Speci men Type: BLOOD SPECIMENOrdering Facility: [facility] Address: [address] [place] [address] Performed By: #### 3 1201-7, 06209-0, 5195-3 ####[facility] [id number] [place] [address] [place] HCV Ab Ser Qlon 08-29-2024 HCV Ab Ql (S) Negative Normal Negative [facility] Comment on above: Order Comment: Speci men Type: BLOOD SPECIMENOrdering Facility: [facility] Address: [address] [place] [address] Result Comment: The result suggests no evidence of infection with Hepatitis C virus. Should recent infection be suspected, repeat testing may be considered 4-6 weeks after this draw. Performed By: #### 1 6128-1 ####[facility] [id number] [place] [address] [place] HIV 1+2 Ab IA Qlon HIV 1 and 2 Ab IA.rapid Nom (S/P/Bld) Normal [facility] Comment on above: Order Comment: Speci men Type: BLOOD SPECIMENOrdering Facility: [facility] Address: [address] [place] [address] Result Comment: Test not indicated. Performed By: #### 3 1201-7, 10375-0, 5195-3 ####[facility] [id number] [place] [address] [place] HIV 1+2 Ab+HIV1 p24 Ag IA Ql Non-Reactive Normal Nonreactive [facility] Comment on above: Order Comment: Speci men Type: BLOOD SPECIMENOrdering Facility: [facility] Address: [address] [place] [address] Performed By: #### 3 1201-7, 73718-8, 5195-3 ####[facility] [id number] [place] [address] [place] HIV immunoassay testing algorithm interpretation (S/P/Bld) [Interp] Normal [facility] Comment on above: Order Comment: Speci men Type: BLOOD SPECIMENOrdering Facility: [facility] Address: [address] [place] [address] Result Comment: No e vidence of HIV-1 [...] or diagnoses. Performed By: #### 3 1201-7, 81381-3, 5195-3 ####[facility] [id number] [place] [address] [place] HbA1c (Bld)on 08-29-2024 Average glucose Estimated from glycated hemoglobin (Bld) [Mass/Vol] 100 mg/dL Normal [facility] Comment on above: Order Comment: Speci men Type: BLOOD SPECIMENOrdering Facility: [facility] Address: [address] [place] [address] Result Comment: eAG: (Estimated average glucose) is a calculated value from HgbA1c and is union contract representative of the average blood glucose level in the last 2-3 month period. Performed By: #### 5 5454-3 ####[facility] [id number] [place] [address] [place] HbA1c (Bld) [Mass fraction] 5.1 % Normal 4.3-5.6 [facility] Comment on above: Order Comment: Speci men Type: BLOOD SPECIMENOrdering Facility: [facility] Address: [address] [place] [address] Result Comment: [place] Diabetes Association guidelines indicate that patients with HgbA1c in the range 5.7-6.4% are at increased risk for development of diabetes, and intervention by lifestyle modification may be beneficial. HgbA1c greater or equal to 6.5% is considered diagnostic of diabetes. Performed By: #### 5 5454-3 ####[facility] [id number] [place] [id number] [place] Prot/Creat Uron 08-29-2024 Protein/Creatinine (U) [Mass ratio] 0.31 mg/mg High <0.15 [facility] Comment on above: Order Comment: Speci men Type: URINE SPECIMENOrdering Facility: [facility] Address: [address] [place] [address] Result Comment: Adul t Proteinuria Categories: <0.15 mg/mg is considered normal to mildly increased 0.15 - 0.50 mg/mg is considered moderately increased >0.50 mg/mg is considered severely increased KDIGO. (2013). KDIGO 2012 Clinical Practice Guideline for the Evaluation and Management of Chronic Kidney Disease. Official Journal of the International Society of Nephrology, 3(1), 1-150. Performed By: #### 2 890-2 ####[facility] [id number] [place] [id number] [place] Protein/Creatinine (U) [Mass ratio]on 08-29-2024 Creatinine (U) [Mass/Vol] 293.9 mg/dL Normal 20.0-300.0 [facility] Comment on above: Order Comment: Speci men Type: URINE SPECIMENOrdering Facility: [facility] Address: [address] [place] [address] Performed By: #### 2 890-2 ####[facility] [id number] [place] [id number] [place] Protein (U) [Mass/Vol] 91 mg/dL High 0-20 Cl [facility] Comment on above: Order Comment: Speci men Type: URINE SPECIMENOrdering Facility: [facility] Address: [address] [place] [address] Performed By: #### 2 890-2 ####[facility] [id number] [place] [address] [place] RUBELLA IGG ANTIBODYon 08-29 RUBELLA IGG AB, QUAL Negative Abnormal Positive [facility] Comment on above: Order Comment: Speci men Type: BLOOD SPECIMENOrdering Facility: [facility] Address: [address] [place] [address] Result Comment: The result suggests no history of Rubella vaccination or exposure to Rubella virus, however, some individuals with past history of Rubella vaccination may test negative using this test as immunity to Rubella virus wanes over time after vaccination. Please correlate with vaccination history if applicable. Performed By: #### R UBIGG ####[facility] [id number] [place] [address] [place] Reagin and Treponema pallidu m IgG and IgM [Interp]on 08-29-2024 T. pallidum IgG+IgM IA Ql (S) Non-Reactive Normal Nonreactive [facility] Comment on above: Order Comment: Speci men Type: BLOOD SPECIMENOrdering Facility: [facility] Address: [address] [place] [address] Performed By: #### 3 1201-7, 28304-5, 5195-3 ####[facility] [id number] [place] [address] [place] Reagin+T pallidum IgG+IgM Se rPl-Impon 08-29-2024 Reagin and Treponema pallidum IgG and IgM [Interp] Cannot exclude recent Treponemal infection if specimen collected within 7-10 days after appearance of suspect lesions or 2-3 weeks after an exposure. Clinical correlation is required. Normal [facility] Comment on above: Order Comment: Speci men Type: BLOOD SPECIMENOrdering Facility: [facility] Address: [address] [place] [address] Performed By: #### 3 1201-7, 24887-9, 5195-3 ####[facility] [id number] [place] [address] [place] TSH SerPl-aCncon 08-29-2024 TSH Qn 1.840 m[IU]/L Normal 0.270-4.200 [facility] Comment on above: Order Comment: Speci men Type: BLOOD SPECIMENOrdering Facility: [facility] Address: [address] [place] [address] Result Comment: If t he patient is , TSH reference range varies by gestational period: First Trimester (weeks 9-12): 0.180-2.990 mIU/L Second Trimester: 0.110-3.980 mIU/L Third Trimester: 0.480-4.710 mIU/L Yariel Garcia et al. A Practical Approach for the Verifications and Determination of Site- and Trimester-Specific Reference Intervals for Thyroid Function tests in . Thyroid, 2019:29:3:412-420. Juan E, et al. 2017 Guidelines of the [place] [employer] for the Diagnosis and Management of Thyroid Disease during and the . Thyroid, 2017:27:3:315-389. Performed By: #### 2 4323-8, 3016-3 ####[facility] [id number] [place] [address] [place] TYPE + SCREEN PRENATALon ABO A Normal [facility] Comment on above: Order Comment: Speci men Type: BLOOD SPECIMENOrdering Facility: [facility] Address: [address] [place] [address] Performed By: #### T SPN ####CC [facility] BLOOD BANKCLIA [id number] [place] [address] [place] Rh Nom (Bld) Positive Normal [facility] Comment on above: Order Comment: Speci men Type: BLOOD SPECIMENOrdering Facility: [facility] Address: [address] [place] [address] Performed By: #### T SPN ####CC [facility] BLOOD BANKCLIA [id number] [place] [id number] [facility] TYPE AND SCREEN EXPIRATION 09/01/2024 23:59 Normal [facility] Comment on above: Order Comment: Speci men Type: BLOOD SPECIMENOrdering Facility: [facility] Address: [address] [place] [address] Performed By: #### T SPN ####CC MAIN BLOOD BANKCLIA [id number] [place] [id number] [facility] CNPNon 08-02-2024 CNPN Telephone ([id number]) -- JANET FRANK ([id number]) 2000 [facility] Date Time Provider Department 08/02/24 STEFFANIE NEELY [id number] During your visit today, we recorded the following information about you: Steffanie Neely RN 08/02/2024 12:41 PM Signed 1st risk assessment form submitted 08/02/2024. 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 - aspirin, enteric coated (ECOTRIN LOW STRENGTH) 81 mg EC tablet Take 1 tablet by mouth once daily. - VIT 5-ISAQ-FPVHR-DHA ORAL Take by mouth. - diphenhydramine HCl [...] Status:Closed by STEFFANIE NEELY on 08/02/24 Normal [facility] Telephone (OBGYWM) -- JANET FRANK ([id number]) 2000 F CHT Date Time Provider Department [...] days.Disp: 14 tabletRfl: 0 EXPEDITED PARTNER TREATMENT [[id number]] Order #: [id number]: 1 metroNIDAZOLE (FLAGYL) 500 mg tabletTake 1 [...] tablet by mouth once daily. - VIT 4-GOUF-FIOUL-DHA ORAL Take by mouth. - diphenhydramine HCl [...] meal. P (more content not included)... Normal [facility] Bacteria Ur Culton 5 Bacteria identified Cx Nom (U) ORGANISM ID: 1 >=100,000 CFU/ml Normal urogenital pineda Normal [facility] Comment on above: Performed By: #### 6 30-4 ####[facility] [id number] [place] [address] [place] C. trachomatis+N. gonorrhoea e DNA RODERICK+probe Ql (Unsp spec)on 08-01-2024 C. trachomatis rRNA RODERICK+probe Ql (Unsp spec) Not detected Normal Not detected [facility] Comment on above: Order Comment: Speci men Type: SWABOrdering Facility: [facility] Address: [address] [place] [address] Performed By: #### 3 6902-5, TRRICHARD ####[facility] [id number] [place] [address] [place] N. 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 [...] Read By: Elayne Severino CNP MATERNAL MEDICINE [facility] Radiology Study observation (narrative) [facility] TRICHOMONAS VAGINALIS NAATon 08-01-2024 T. vaginalis DNA RODERICK+probe Ql (Unsp spec) Detected Abnormal Not detected [facility] Comment on above: Order Comment: Speci men Type: SWABOrdering Facility: [facility] Address: [address] [place] [address] Performed By: #### 3 6902-5, TRVAMP ####[facility] [id number] [place] [id number] [place] Peggy 07-25-2024 CNPN Telephone (OBGYWM) -- ZACJANET J ([id number]) 2000 F T Date Time Provider Department [...] tablet by mouth once daily. - VIT 0-XZSH-BZIHS-DHA ORAL Take by mouth. - diphenhydramine HCl [...] Encounter Status:Closed by XAVIER CURRIE on 08/02/24 [facility] 07-22-2024 CNPN Telephone (FAMPWS) -- JANET FRANK ([id number]) 2000 F T Date Time Provider Department 07/22/24 [facility] During your visit today, we recorded [...] Encounter Status:Closed by LELA DALEY on 07/22/24 [facility] CNOVon 07-20-2024 CNOV Office Visit (OBGYWM ) -- AJNET FRANK ([id number]) 2000 F CHT Date Time Provider Department 07/20/24 1:00 PM ROXANA FRY OBGYWM During your visit today, we recorded the following information about you: Blood pressure Weight Last Period 112 99.2 kg 06/04/24 Roxana Fry, FAMILY LAW ATTORNEY.CNM 07/20/2024 1:31 PM Signed Janet Diego Zac [...] transfusion after due to CBC of 3. Gatekeeper History LMP: 05/13/2024 (Exact Date), Having periods Age at Menarche: Age at First : Age at Menopause: Gatekeeper History Comments: Sexual Activity: Yes; Male Contraception: [...] SICKNESS IN by Bev Horowitz M.D. for [employer] As you may already know, morning sickness can often be more appropriately called evening sickness or iadpn-reqeij-wy-the-day sickness. While there are the bautista few, most women (50-90%) experience some degree of nausea, some have vomiting, and a few develop a severe form of vomiting during called hyperemesis gravidarum. What causes the nausea and vomiting of ? We (more content not included)... Normal [facility] UA DIP,URINE HCG (POC)on Beta HCG ( test) Ql (U) Positive Abnormal Negative [facility] Comment on above: Location:[facility], [address], [place], [address] Interpretation and review of laboratory results Abnormal [facility] Fish Receiver (POCT) Internal QC [facility] Location:[facility], [address], [place], [place], [id number] [place] [address] POINT OF CARE [facility] CNCOon 07-06-2024 CNCO Letter Text Normal [facility] CNCOon 06-27-2024 CNCO Letter Text Normal [facility] CNPNon [facility] -- JANET FRANK ([id number]) 2000 F T Date Time Provider Department 06/20/24 IVELISSE NG [facility] During your visit today, we recorded the [...] Rx for 30 mg Buspar sent to [facility]. BENEDICT Reynoso Ashley, APRN.CIERRA 06/20/2024 [...] Encounter Status:Closed by IVELISSE NG on 06/20/24 [facility] Tram 05-13-2024 CNOV Office Visit (FAMPWS ) -- JANET FRANK ([id number]) 2000 F CHT Date Time Provider Department 05/13/24 1:40 PM TERRELL CLOUD During your visit today, we recorded the following information about you: Temperature Pulse Respiration Blood pressure 99 degrees 72/minute 16/minute 121/78 Weight 93.4 kg Terrell Cloud APRN.SHOE REPAIR SUPERVISOR 05/13/2024 1:47 PM Signed Chief Complaint Patient [...] APRN.CIERRA This note was partly generated using [employer] voice recognition dictation and may contain some [...] of Service: OFFICE/OUTPATIENT ESTABLISHED MOD [facility] 30 MIN [[id number]] Encounter Status:Closed by TERRELL CLOUD on 05/13/24 [facility] Office Visit (OBGYWM ) -- JANET FRANK ([id number]) 2000 [facility] Date Time Provider Department 05/13/24 10:00 AM ELAYNE SEVERINO OBGYWM During your visit today, we recorded the following information about you: Blood pressure Weight Last Period 122/66 94.9 kg 05/13/24 Elayne Severino APRN.SHOE REPAIR SUPERVISOR 05/13/2024 10:22 AM Signed Janet Cortez Zac [...] transfusion after due to CBC of 3. Gatekeeper History LMP: 05/13/2024 (Exact Date), Having periods Age at Menarche: Age at First : Age at Menopause: Gatekeeper History Comments: Sexual Activity: Yes; Male Contraception: [...] once da (more content not included)... Normal [facility] CNOVon 04-14-2024 CNOV Office Visit (WSTR ) -- ZACJANET ([id number]) 2000 F T Date Time Provider Department 04/14/24 12:00 PM [facility] During your visit today, we recorded the following information about you: Temperature Pulse Respiration Blood pressure 98 degrees 103/minute 20/minute 104/82 Weight 92.4 kg Kenneth Mckeon, FAMILY LAW ATTORNEY.SHOE REPAIR SUPERVISOR 04/14/2024 1:33 PM Signed Subjective HPI Nontoxic-appearing [...] distension. Palpa (more content not included)... Normal [facility] STREP A MOLECULAR (POC)on Procedural Control Valid [facility] Strep A (POCT) Negative Negative [facility] US Pelvison 11-19-2023 Indication irregular menses, [...] Read By: Radha Tejada M.D. MATERNAL MEDICINE [facility] Radiology Study observation (narrative) [facility] Erythrocyte sedimentation ra teOrdered By: Thierno Winston on 07-02-2023 ESR (Bld) [Velocity] 5 mm/h 0-30 [facility] Laboratory - Microbiology an d Antimicrobial susceptibilityOrdered By: Thierno Winston on 07-02-2023 SARS-CoV-2 (COVID-19) RNA RODERICK+probe Ql (Unsp spec) [facility] Serum or plasma choriogonado tropin detectionOrdered By: Thierno Winston on 07-02-2023 HCG ( test) Ql Negative [facility] UA DIP, URINE (POC)on 2022 BILIRUBIN UA (POCT) Small Abnormal Negative [facility] CLARITY UA (POCT) Clear [facility] COLOR UA (POCT) [place] [facility] GLUCOSE UA (POCT) 100 mg/dL Abnormal Negative mg/dL [facility] HEMOGLOBIN/BLOOD UA (POCT) Trace-intact Abnormal Negative [facility] KETONE UA (POCT) Trace Negative mg/dL [facility] LEUKOCYTES UA (POCT) Large Abnormal Negative [facility] NITRITE UA (POCT) Positive Abnormal Negative [facility] PH UA (POCT) 5.0 4.5 - 8.0 [facility] Protein Ql (U) 100 mg/dL Abnormal Negative mg/dL [facility] SPECIFIC GRAVITY UA (POCT) 1.015 1.005 - 1.030 [facility] UROBILINOGEN UA (POCT) 4.0 E.U./dL Abnormal Layne l E.U./dL [facility] Absolute lymphocyte countOrd ered By: Geoff Meza on 09-06-2022 Lymphocytes Auto (Unsp spec) [#/Vol] 1.63 10*3/uL 0.83-4.51 [facility] Basophil percentageOrdered B y: Geoff Meza on 09-06-2022 Basophil percentage 0 SEEN /hpf 0-5 [facility] Basophils/100 WBC (Bld) 0.8 % 0-1 [facility] Chloride [Moles/Vol] 106 mmol/L 98-107 [facility] Eosinophils/100 WBC (Bld) 2.5 % 0-5 [facility] Glucose [Mass/Vol] 86 mg/dL 74-106 [facility] Neutrophils (Bld) [#/Vol] 8.4 10*3/uL 2.0-7.7 [facility] Neutrophils/100 WBC (Bld) 75.4 % 47-70 [facility] Potassium [Moles/Vol] 3.3 mmol/L 3.5-5.1 [facility] Sodium [Moles/Vol] 139 mmol/L 136-145 [facility] WBC (Bld) [#/Vol] 11.2 10*3/uL 4.4-11.0 [facility] Bilirubin Test strip Ql (U)O rdered By: Geoff Meza on 09-06-2022 Bilirubin Ql (U) Negative Negative [facility] Blood erythrocytes count (nu mber/volume)Ordered By: Geoff Meza on 09-06-2022 RBC (Bld) [#/Vol] 5.26 10*6/uL 4.2-5.4 [facility] Blood hemoglobin measurement (mass/volume)Ordered By: Geoff Meza on 09-06-2022 Hemoglobin (Bld) [Mass/Vol] 14.3 g/dL 12.0-15.0 [facility] Blood lymphocytes/100 leukoc ytesOrdered By: Geoff Meza on 09-06-2022 Lymphocytes/100 WBC (Bld) 14.6 % 19-41 [facility] Blood monocytes/100 leukocyt esOrdered By: Geoff Meza on 09-06-2022 Monocytes/100 WBC (Bld) 6.3 % 0-10 [facility] Blood platelet mean volumeOr dered By: Geoff Meza on 09-06-2022 Platelet mean volume (Bld) [Entitic vol] 9.1 fL 6.2-12.0 [facility] Determination of erythrocyte mean corpuscular volume (MCV)Ordered By: Geoff Meza on 09-06-2022 MCV (RBC) [Entitic vol] 79.8 fL 81-99 [facility] Hematocrit Auto (Bld) [Volum e fraction]Ordered By: Geoff Meza on 09-06-2022 Hematocrit (Bld) [Volume fraction] 42.0 % 37-47 [facility] Ketones Test strip Ql (U)Ord ered By: Geoff Meza on 09-06-2022 Ketones Ql (U) Negative Negative [facility] Laboratory - Chemistry and C hemistry - challengeOrdered By: Geoff Meza on 09-06-2022 CK [Catalytic activity/Vol] 259 U/L 26-192 [facility] CO2 [Moles/Vol] 24.0 mmol/L 21.0-32.0 [facility] HCG ( test) Ql (U) Negative [facility] Comment on above: Very dilute urine sp ecimens, as indicated by a low specificgravity, may not contain union contract representative levels of hCG. If is still suspected, a first morning urinespecimen should be collected 48 hours later and tested. Urea nitrogen/Creatinine [Mass ratio] 11.1 mg/mg 10-20 [facility] Laboratory - Hematology and Cell countsOrdered By: Geoff Meza on 09-06-2022 Erythrocyte distribution width (RBC) [Entitic vol] 38.1 fL 35.1-43.9 [facility] Erythrocyte distribution width (RBC) [Ratio] 13.3 % 11.6-14.6 [facility] Immature granulocytes/100 WBC (Bld) 0.400 % 0.0-0.9 [facility] Comment on above: IG% - Immature Granu locytes (promyelocytes, myelocytes and metamyelocytes) > 1% indicates that a LEFT SHIFT is Present. MCH (RBC) [Entitic mass] 27.2 pg 27.0-32.0 [facility] Nucleated RBC/100 WBC (Bld) [Ratio] 0 % 0-5 [facility] MCHC Auto (RBC) [Mass/Vol]Or dered By: Geoff Meza on 09-06-2022 MCHC (RBC) [Mass/Vol] 34.0 g/dL 32-36 [facility] Mucus LM Ql (Urine sed)Order ed By: Geoff Meza on 09-06-2022 Mucus Ql (Urine sed) 0 SEEN /hpf [facility] Nitrite Test strip Ql (U)Ord ered By: Geoff Meza on 09-06-2022 Nitrite Ql (U) Negative Negative [facility] No Panel InformationOrdered By: Geoff Meza on 09-06-2022 D-Dimer Quantitative (PE/DVT) < 0.27 FEU/ug/m 0.27-0.49 [facility] Comment on above: NORMAL D-Dimer level (<0.50) indicates no DVT or PE. Estimated Creatinine Clearance Calc 88.59 ml/min [facility] Estimated GFR (MDRD) Amer 111 mL/min >60 [facility] Comment on above: GFR Calc Estimated GFR (MDRD) Non-Af Amer 92 mL/min >60 [facility] Comment on above: Non- GFR Calc Thyroid Stimulating Hormone (TSH) 1.82 uIU/mL 0.358-3.74 [facility] Platelets bldOrdered By: Yelena Meza on 09-06-2022 Platelets (Bld) [#/Vol] 282 10*3/uL 150-450 [facility] Protein Test strip Ql (U)Ord ered By: Geoff Meza on 09-06-2022 Protein Ql (U) 15 mg/dl Negative [facility] Serum or plasma calcium lesley urement (mass/volume)Ordered By: Geoff Meza on 09-06-2022 Calcium [Mass/Vol] 9.4 mg/dL 8.5-10.1 [facility] Serum or plasma creatinine m easurement (mass/volume)Ordered By: Goeff Meza on 09-06-2022 Creatinine [Mass/Vol] 0.81 mg/dL 0.55-1.02 [facility] Comment on above: The validity of the calculated GFR & GFRAA in patients over 70 years has not been determined. Clinical correlation is essential. Serum or plasma urea nitroge n measurement (mass/volume)Ordered By: Geoff Meza on 09-06-2022 Urea nitrogen [Mass/Vol] 9 mg/dL 7-18 [facility] Squamous epithelial cells de tection in urine sediment by light microscopyOrdered By: Geoff Meza on 09-06-2022 Epithelial cells.squamous LM Ql (Urine sed) 0-5 SEEN /hpf 5-10 [facility] Thin prep Papanicolaou smear with manual screeningOrdered By: Geoff Meza on 09-06-2022 Thin prep Papanicolaou smear with manual screening 9 5-15 [facility] Urine blood detectionOrdered By: Geoff Meza on 09-06-2022 RBC Ql (U) 10 /ul Negative [facility] RBC Ql (U) 0 SEEN /hpf 0-5 [facility] Urine clarityOrdered By: Yelena Meza on 09-06-2022 Clarity (U) Clear Clear [facility] Urine color determinationOrd ered By: Geoff Meza on 09-06-2022 Color (U) Yellow Yellow [facility] Urine glucose detectionOrder ed By: Geoff Meza on 09-06-2022 Glucose Ql (U) Normal mg/dl Normal [facility] Urine leukocyte esterase det ection by dipstickOrdered By: Geoff Meza on 09-06-2022 Leukocyte esterase Test strip Ql (U) Negative Negative [facility] Urine pHOrdered By: Geoff cardoza on 09-06-2022 pH (U) 7.0 [pH] 5.0 - 8.0 [facility] Urine sediment bacteria coun t by microscopy (number/high power field)Ordered By: Geoff Meza on 09-06-2022 Bacteria LM.HPF (Urine sed) [#/Area] 0 /[HPF] None Seen [facility] Urine specific gravity measu rementOrdered By: Geoff Meza on 09-06-2022 Specific gravity (U) [Rel density] 1.010 1.002-1.030 [facility] Urobilinogen Auto test strip Ql (U)Ordered By: Geoff Meza on 09-06-2022 Urobilinogen Ql (U) Normal mg/dl Normal [facility] BASIC METABOLIC PANELon 08-03 Anion gap [Moles/Vol] 15 mmol/L Normal 10 - 20 [facility] Comment on above: Order Comment: Veronica LUCERO to Puja Yepez, 08/22/2022 15:26 Performed By: #### B MP #### [address] [address] Potassium [Moles/Vol] 2.9 mmol/L Critically low 3.5 - 5.3 [facility] Comment on above: Order Comment: Martin d- RB to Puja Yepez, 08/22/2022 15:26 Result Comment: Conf irmed by repeat analysis Called- RB to Puja Yepez, 08/22/2022 15:26 Performed By: #### B MP #### [address] [address] Calcium [Mass/Vol] 9.3 mg/dL Normal 8.6 - 10.3 [facility] Comment on above: Order Comment: Martin d- RB to Puja Yepez, 08/22/2022 15:26 Performed By: #### B MP #### [address] [address] Chloride [Moles/Vol] 103 mmol/L Normal 98 - 107 [facility] Comment on above: Order Comment: Martin d- RB to Puja Yepez, 08/22/2022 15:26 Performed By: #### B MP #### [address] [address] Creatinine [Mass/Vol] 0.67 mg/dL Normal 0.50 - 1.05 [facility] Comment on above: Order Comment: Martin d- RB to Puja Yepez, 08/22/2022 15:26 Performed By: #### B MP #### [address] [address] eGFR FEMALE >90 Normal >90 [facility] Comment on above: Order Comment: Martin d- RB to Puja Yepez, 08/22/2022 15:26 Result Comment: CALC ULATIONS OF ESTIMATED GFR ARE PERFORMED USING THE 2020 CKD-EPI STUDY REFIT EQUATION WITHOUT THE RACE VARIABLE FOR THE IDMS-TRACEABLE CREATININE METHODS. https://jasn.asnjournals.org/content//ASN.10840 87247 Performed By: #### B MP #### [place] [id number] Glucose [Mass/Vol] 79 mg/dL Normal 74 - 99 [facility] Comment on above: Order Comment: Martin d- RB to Puja Yepez, 08/22/2022 15:26 Performed By: #### B MP #### [place] [id number] HCO3 (Bld) [Moles/Vol] 22 mmol/L Normal 21 - 32 [facility] Comment on above: Order Comment: Martin d- RB to Puja Yepez, 08/22/2022 15:26 Performed By: #### B MP #### [place] [id number] Sodium [Moles/Vol] 137 mmol/L Normal 136 - 145 [facility] Comment on above: Order Comment: Martin d- RB to Puja Yepez, 08/22/2022 15:26 Performed By: #### B MP #### [place] [id number] Urea nitrogen [Mass/Vol] 6 mg/dL Normal 6 - 23 [facility] Comment on above: Order Comment: Martin d- RB to Puja Yepez, 08/22/2022 15:26 Performed By: #### B MP #### [place] [id number] CBC AND DIFFERENTIALon 08-22 % AUTOMATED IMMATURE GRAN 0.4 % Normal 0.0 - 0.9 [facility] Comment on above: Result Comment: Chioma ture Granulocyte Count (IG) includes promyelocytes, myelocytes and metamyelocytes but does not include bands. Percent differential counts (%) should be interpreted in the context of the absolute cell counts (cells/L). Performed By: #### C BCDF #### [place] [id number] Basophils (Bld) [#/Vol] 0.06 10*3/uL Normal 0.00 - 0.10 [facility] Comment on above: Performed By: #### C BCDF #### [place] [id number] Basophils/100 WBC (Bld) 0.6 % Normal 0.0 - 2.0 [facility] Comment on above: Performed By: #### C BCDF #### [address] [address] Eosinophils (Bld) [#/Vol] 0.10 10*3/uL Normal 0.00 - 0.70 [facility] Comment on above: Performed By: #### C BCDF #### [address] [address] Eosinophils/100 WBC (Bld) 0.9 % Normal 0.0 - 6.0 [facility] Comment on above: Performed By: #### C BCDF #### [address] [address] Erythrocyte distribution width (RBC) [Ratio] 13.3 % Normal 11.5 - 14.5 [facility] Comment on above: Performed By: #### C BCDF #### [address] [address] Hematocrit (Bld) [Volume fraction] 40.0 % Normal 36.0 - 46.0 [facility] Comment on above: Performed By: #### C BCDF #### [address] [address] Hemoglobin (Bld) [Mass/Vol] 13.6 g/dL Normal 12.0 - 16.0 [facility] Comment on above: Performed By: #### C BCDF #### [address] [address] Lymphocytes (Bld) [#/Vol] 2.50 10*3/uL Normal 1.20 - 4.80 [facility] Comment on above: Performed By: #### C BCDF #### [address] [address] Lymphocytes/100 WBC (Bld) 23.1 % Normal 13.0 - 44.0 [facility] Comment on above: Performed By: #### C BCDF #### [address] [address] MCHC (RBC) [Mass/Vol] 34.0 g/dL Normal 32.0 - 36.0 [facility] Comment on above: Performed By: #### C BCDF #### [address] [address] MCV (RBC) [Entitic vol] 79 fL Low 80 - 100 [facility] Comment on above: Performed By: #### C BCDF #### [address] [address] Monocytes (Bld) [#/Vol] 0.84 10*3/uL Normal 0.10 - 1.00 [facility] Comment on above: Performed By: #### C BCDF #### [address] [address] Monocytes/100 WBC (Bld) 7.7 % Normal 2.0 - 10.0 [facility] Comment on above: Performed By: #### C BCDF #### [address] [address] Neutrophils (Bld) [#/Vol] 7.30 10*3/uL Normal 1.20 - 7.70 [facility] Comment on above: Result Comment: Perc ent differential counts (%) should be interpreted in the context of the absolute cell counts (cells/L). Performed By: #### C BCDF #### [address] [address] Neutrophils/100 WBC (Bld) 67.3 % Normal 40.0 - 80.0 [facility] Comment on above: Performed By: #### C BCDF #### [address] [address] Platelets (Bld) [#/Vol] 304 10*3/uL Normal 150 - 450 [facility] Comment on above: Performed By: #### C BCDF #### [address] [address] RBC 5.08 x10E12/L Normal 4.00 - 5.20 [facility] Comment on above: Performed By: #### C BCDF #### [address] [address] WBC (Bld) [#/Vol] 10.8 10*3/uL Normal 4.4 - 11.3 [facility] Comment on above: Performed By: #### C BCDF #### [address] [address] [address] [facility] ABDOMEN AND PELVIS W IV CONTRAST Patient Name: JANET FRANK STUDY: CT ABDOMEN AND PELVIS W IV CONTRAST; 08/22/2022 4:11 pm INDICATION: abd pain, diarrhea . COMPARISON: 07/30/2020 ACCESSION NUMBER(S): [id number] ORDERING CLINICIAN: TRIXIE BEARD TECHNIQUE: CT of [...] Electronically signed by: KAMILAH SULTANA MD Normal [facility] HCG,URINEon 08-22-2022 Beta HCG ( test) Ql (U) Negative Normal Negative [facility] Comment on above: Performed By: #### H CGU #### [address] [address] HEPATIC FUNCTION PANELon Albumin [Mass/Vol] 4.5 g/dL Normal 3.4 - 5.0 [facility] Comment on above: Performed By: #### H EPFP #### [address] [address] ALP [Catalytic activity/Vol] 61 U/L Normal 33 - 110 [facility] Comment on above: Performed By: #### H EPFP #### [address] [address] ALT [Catalytic activity/Vol] 24 U/L Normal 7 - 45 [facility] Comment on above: Result Comment: Geraldine ents treated with Sulfasalazine may generate falsely decreased results for ALT. Performed By: #### H EPFP #### [address] [address] AST [Catalytic activity/Vol] 23 U/L Normal 9 - 39 [facility] Comment on above: Performed By: #### H EPFP #### [address] [address] Bilirubin [Mass/Vol] 0.5 mg/dL Normal 0.0 - 1.2 [facility] Comment on above: Performed By: #### H EPFP #### [address] [address] Bilirubin.indirect [Mass/Vol] 0.1 mg/dL Normal 0.0 - 0.3 [facility] Comment on above: Performed By: #### H EPFP #### [address] [address] Protein [Mass/Vol] 7.4 g/dL Normal 6.4 - 8.2 [facility] Comment on above: Performed By: #### H EPFP #### [address] [address] LIPASEon 08-22-2022 Lipase [Catalytic activity/Vol] 16 U/L Normal 9 - 82 [facility] Comment on above: Result Comment: Sofi puncture immediately after or during the administration of Metamizole may lead to falsely low results. Testing should be performed immediately prior to Metamizole dosing. V-yumuof-j-benzoquinone imine (metabolite of Acetaminophen) will generate erroneously low results in samples for patients that have taken toxic doses of acetaminophen. Performed By: #### L IPAS ####[address] [address] Provider Note - ED v3on 08-03 Provider [...] made to minimize errors. Minor errors in kaiako kura tuarua may be present. Please call if questions.. [...] Reference Range: STRAW,YELLOW Appearance, Urine CLEAR Specific [place], Urine 1.009 pH, Urine 6.0 Protein, Urine 30(1+) A Glucose, Urine NEGATIVE (more content not included)... Normal [facility] Risk Screen - Adult Emergenc yon 08-22-2022 Risk Screen - Adult Emergency Preferred Language: Preferred Language: Preferred Language for Discussing Health Care (patient/designee)Turkish Patient Preferred Pharmacy: Patient Preferred Pharmacy Statement: [...] instruction; verbal instruction Cultural Considerationsnone Developmental Considerationsnone Mosque Considerationsnone Learning Assessment (Other Learner): Learning Assessment [...] Updated: 22-Aug-2022 14:11 by Annel Segundo (RN) [facility] Triage - EDon 08-22-2022 Triage - [...] Mireya Score: 15 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 CELLS 3 /HPF Normal [facility] Comment on above: Performed By: #### U AMIC #### [place] [id number] WBC 1 /HPF Normal 0-5 [facility] Comment on above: Performed By: #### U AMIC #### [address] [address] URINALYSIS WITH CULTURE IF I NDICATEDon 08-22-2022 Appearance (U) CLEAR Normal CLEAR [facility] Comment on above: Performed By: #### U ARFX #### [address] [address] Bilirubin Ql (U) Negative Normal NEGATIVE [facility] Comment on above: Performed By: #### U ARFX #### [place] [address] Color (U) Yellow Normal STRAW,YELLOW [facility] Comment on above: Performed By: #### U ARFX #### [place] [address] Glucose Ql (U) Negative Normal NEGATIVE [facility] Comment on above: Performed By: #### U ARFX #### [place] [address] Hemoglobin Ql (U) Negative Normal NEGATIVE [facility] Comment on above: Performed By: #### U ARFX #### [place] [address] Ketones Ql (U) 20(1+) Abnormal NEGATIVE [facility] Comment on above: Performed By: #### U ARFX #### [place] [address] Leukocyte esterase Test strip Ql (U) Negative Normal NEGATIVE [facility] Comment on above: Performed By: #### U ARFX #### [place] [address] Nitrite Ql (U) Negative Normal NEGATIVE [facility] Comment on above: Performed By: #### U ARFX #### [place] [address] pH (U) 6.0 [pH] Normal 5.0 - 8.0 [facility] Comment on above: Performed By: #### U ARFX #### [place] [address] Protein Ql (U) 30(1+) Abnormal NEGATIVE [facility] Comment on above: Performed By: #### U ARFX #### [place] [address] Specific gravity (U) [Rel density] 1.009 Normal 1.005 - 1.035 [facility] Comment on above: Performed By: #### U ARFX #### [place] [address] Urobilinogen (U) [Mass/Vol] mg/dL Normal 0.0 - 1.9 [facility] Comment on above: Performed By: #### U ARFX #### [facility] [address] [place] [address] Absolute lymphocyte countOrd ered By: Dr. Spivey on 06-30-2022 Lymphocytes Auto (Unsp spec) [#/Vol] 2.06 10*3/uL 0.83-4.51 [facility] Basophil percentageOrdered B y: Dr. Spivey on 06-30-2022 Basophil percentage 0 SEEN /hpf 0-5 [facility] Basophils/100 WBC (Bld) 0.6 % 0-1 [facility] Bilirubin [Mass/Vol] 0.40 mg/dL 0.20-1.00 [facility] Comment on above: For patients on eltr ombopag therapy, use of Dimension [place] TBIL is not recommended. Chloride [Moles/Vol] 111 mmol/L 98-107 [facility] Eosinophils/100 WBC (Bld) 1.6 % 0-5 [facility] Glucose [Mass/Vol] 99 mg/dL 74-106 [facility] Neutrophils (Bld) [#/Vol] 6.6 10*3/uL 2.0-7.7 [facility] Neutrophils/100 WBC (Bld) 69.8 % 47-70 [facility] Potassium [Moles/Vol] 3.7 mmol/L 3.5-5.1 [facility] Protein [Mass/Vol] 7.3 g/dL 6.4-8.2 [facility] Sodium [Moles/Vol] 141 mmol/L 136-145 [facility] WBC (Bld) [#/Vol] 9.4 10*3/uL 4.4-11.0 [facility] Beta hCG serum qualOrdered B y: Dr. Spivey on 06-30-2022 Beta HCG ( test) Ql Negative [facility] Bilirubin Test strip Ql (U)O rdered By: Dr. Spivey on 06-30-2022 Bilirubin Ql (U) Negative Negative [facility] Blood erythrocytes count (nu mber/volume)Ordered By: Dr. Spivey on 06-30-2022 RBC (Bld) [#/Vol] 5.18 10*6/uL 4.2-5.4 [facility] Blood hemoglobin measurement (mass/volume)Ordered By: Dr. Spivey on 06-30-2022 Hemoglobin (Bld) [Mass/Vol] 13.9 g/dL 12.0-15.0 [facility] Blood lymphocytes/100 leukoc ytesOrdered By: Dr. Spivey on 06-30-2022 Lymphocytes/100 WBC (Bld) 21.9 % 19-41 [facility] Blood monocytes/100 leukocyt esOrdered By: Dr. Spivey on 06-30-2022 Monocytes/100 WBC (Bld) 5.6 % 0-10 [facility] Blood platelet mean volumeOr dered By: Dr. Spivey on 06-30-2022 Platelet mean volume (Bld) [Entitic vol] 9.3 fL 6.2-12.0 [facility] Determination of erythrocyte mean corpuscular volume (MCV)Ordered By: Dr. Spivey on 06-30-2022 MCV (RBC) [Entitic vol] 81.7 fL 81-99 [facility] Hematocrit Auto (Bld) [Volum e fraction]Ordered By: Dr. Spivey on 06-30-2022 Hematocrit (Bld) [Volume fraction] 42.3 % 37-47 [facility] Ketones Test strip Ql (U)Ord ered By: Dr. Spivye on 06-30-2022 Ketones Ql (U) Negative Negative [facility] Laboratory - Chemistry and C hemistry - challengeOrdered By: Dr. Spivey on 06-30-2022 ALP [Catalytic activity/Vol] 67 U/L 45-117 [facility] ALT [Catalytic activity/Vol] 26 U/L 13-56 [facility] CO2 [Moles/Vol] 23.0 mmol/L 21.0-32.0 [facility] Globulin (S) [Mass/Vol] 3.6 g/dL 2.2-4.2 [facility] Lipase [Catalytic activity/Vol] 109 U/L 73-393 [facility] Urea nitrogen/Creatinine [Mass ratio] 14.7 mg/mg 10-20 [facility] Laboratory - Hematology and Cell countsOrdered By: Dr. Spivey on 06-30-2022 Erythrocyte distribution width (RBC) [Entitic vol] 38.2 fL 35.1-43.9 [facility] Erythrocyte distribution width (RBC) [Ratio] 12.9 % 11.6-14.6 [facility] Immature granulocytes/100 WBC (Bld) 0.500 % 0.0-0.9 [facility] Comment on above: IG% - Immature Granu locytes (promyelocytes, myelocytes and metamyelocytes) > 1% indicates that a LEFT SHIFT is Present. MCH (RBC) [Entitic mass] 26.8 pg 27.0-32.0 [facility] Nucleated RBC/100 WBC (Bld) [Ratio] 0 % 0-5 [facility] MCHC Auto (RBC) [Mass/Vol]Or dered By: Dr. Spivey on 06-30-2022 MCHC (RBC) [Mass/Vol] 32.9 g/dL 32-36 [facility] Mucus LM Ql (Urine sed)Order ed By: Dr. Spivey on 06-30-2022 Mucus Ql (Urine sed) 0 SEEN /hpf [facility] Nitrite Test strip Ql (U)Ord ered By: Dr. Spivey on 06-30-2022 Nitrite Ql (U) Negative Negative [facility] No Panel InformationOrdered By: Dr. Spivey on 06-30-2022 Estimated Creatinine Clearance Calc 105.53 ml/min [facility] Estimated GFR (MDRD) Amer 137 mL/min >60 [facility] Comment on above: GFR Calc Estimated GFR (MDRD) Non-Af Amer 113 mL/min >60 [facility] Comment on above: Non- GFR Calc Platelets bldOrdered By: Dr. Spivey on 06-30-2022 Platelets (Bld) [#/Vol] 285 10*3/uL 150-450 [facility] Protein Test strip Ql (U)Ord ered By: Dr. Spivey on 06-30-2022 Protein Ql (U) 30 mg/dl Negative [facility] Serum or plasma albumin lesley urement (mass/volume)Ordered By: Dr. Spivey on 06-30-2022 Albumin [Mass/Vol] 3.7 g/dL 3.2-5.0 [facility] Serum or plasma albumin/glob ulin mass ratioOrdered By: Dr. Spivey on 06-30-2022 Albumin/Globulin [Mass ratio] 1.0 {ratio} 0.9-2.4 [facility] Serum or plasma calcium lesley urement (mass/volume)Ordered By: Dr. Spivey on 06-30-2022 Calcium [Mass/Vol] 9.0 mg/dL 8.5-10.1 [facility] Serum or plasma creatinine m easurement (mass/volume)Ordered By: Dr. Spivey on 06-30-2022 Creatinine [Mass/Vol] 0.68 mg/dL 0.55-1.02 [facility] Comment on above: The validity of the calculated GFR & GFRAA in patients over 70 years has not been determined. Clinical correlation is essential. Serum or plasma urea nitroge n measurement (mass/volume)Ordered By: Dr. Spivey on 06-30-2022 Urea nitrogen [Mass/Vol] 10 mg/dL 7-18 [facility] Squamous epithelial cells de tection in urine sediment by light microscopyOrdered By: Dr. Spivey on 06-30-2022 Epithelial cells.squamous LM Ql (Urine sed) 5-10 SEEN /hpf 5-10 [facility] Thin prep Papanicolaou smear with manual screeningOrdered By: Dr. Spivey on 06-30-2022 Thin prep Papanicolaou smear with manual screening 14 U/L 15-37 [facility] Thin prep Papanicolaou smear with manual screening 7 5-15 [facility] Urine blood detectionOrdered By: Dr. Spivey on 06-30-2022 RBC Ql (U) 25 /ul Negative [facility] RBC Ql (U) 0-5 SEEN /hpf 0-5 [facility] Urine clarityOrdered By: Dr. Spivey on 06-30-2022 Clarity (U) Sl. Cloudy Clear [facility] Urine color determinationOrd ered By: Dr. Spivey on 06-30-2022 Color (U) Yellow Yellow [facility] Urine glucose detectionOrder ed By: Dr. Spivey on 06-30-2022 Glucose Ql (U) Normal mg/dl Normal [facility] Urine leukocyte esterase det ection by dipstickOrdered By: Dr. Spivey on 06-30-2022 Leukocyte esterase Test strip Ql (U) Negative Negative [facility] Urine pHOrdered By: Dr. Ian alston on 06-30-2022 pH (U) 6.5 [pH] 5.0 - 8.0 [facility] Urine sediment bacteria coun t by microscopy (number/high power field)Ordered By: Dr. Spivey on 06-30-2022 Bacteria LM.HPF (Urine sed) [#/Area] 1 /[HPF] None Seen [facility] Urine specific gravity measu rementOrdered By: Dr. Spivey on 06-30-2022 Specific gravity (U) [Rel density] 1.015 1.002-1.030 [facility] Urobilinogen Auto test strip Ql (U)Ordered By: Dr. Spivey on 06-30-2022 Urobilinogen Ql (U) Normal mg/dl Normal [facility] XR WRIST INJURY 4V PA/LAT/OB L/SCAPH LEFTon 12-24-2021 [facility] XR Wrist - left 4 Viewson IMPRESSION: No acute osseous abnormality. [employer] Plasma Etcher: KIEARN Transcribe Date/Time: Dec 24 2021 2:35P Dictated by : MEGAN ALEJANDRA DO This examination was interpreted and the report reviewed and electronically signed by: MEGAN ALEJANDRA DO on Dec 24 2021 2:37PM [facility] DIVISION OF RADIOLOGY * * [...] significant significant abnormality. DIVISION OF RADIOLOGY Provider, [facility] - 12/24/2021 * * *Final Report* * [...] abnormality. IMPRESSION IMPRESSION: No acute osseous abnormality. [employer] Plasma Etcher: PSCB Transcribe Date/Time: Dec 24 2021 2:35P Dictated by : MEGAN ALEJANDRA DO This examination was interpreted and the report reviewed and electronically signed by: MEGAN ALEJANDRA DO on Dec 24 2021 2:37PM EST [facility] Radiology Study observation (narrative) [facility] XR Wrist - left 4 ViewsOrder ed By: Ccf Provider on 12-24-2021 [facility] H. pylori IgG IA Qlon 2021 H. pylori IgG, Qualitative Negative Negative [facility] ANES Esme 10-14-2017 ANES POST HNO ID: [id number] thor: Meg Smithice: AnesthesiologyAuthor Type: AnesthesiologistType: Anesthesia [...] 14, 2017 : 4:06 PM PAGER/CONTACT #: [phone] [facility] ANES PREOPon 10-14-2017 ANES PREOP HNO ID: [id number] thor: Meg Shookervice: AnesthesiologyAuthor Type: AnesthesiologistType: Anesthesia [...] anesthesia and no knownanesthesia problems in the [facility] Assessment: MP 1; Neck ROM: Full ROM [...] October 14, 2017 : 12:14 PM CSN: [id number] [facility] PT EDon 10-14-2017 PT ED HNO ID: [id number] thor: Massimo OquendoRn) ISIDORO Kellyervice: NursingAuthor Type: [...] Signed By: Massimo Kelly RN [facility]: [id number] thor: Pola Rasmussen) ISIDORO Blumervice: NursingAuthor Type: Registered NurseType: Patient EducationFiled: 10/14/2017 12:08 PMNote Text:PRE OP LEARNING ASSESSMENTPROCEDURE/SURGER Y: GI PROCEDURES: ColonoscopyREADINESS TO LEARNCOGNITIVE ABILITY: Alert and orientedMOTIVATION TO LEARN: EagerFAMILY SUPPORT: High - Very involved in pt carePATIENT LEARNS BEST BY: Individual InstructionVerbal InstructionFACTORS AFFECTING LEARNING: NonePHYSICAL LIMITATIONS AFFECTING LEARNING: NoneElectronically Signed By: Pola Blum RN In Department: [facility] SURGICAL PATHOLOGYon 018 SURGICAL PATHOLOGY ADDENDUM PRESENT Specimen originated from [facility] #: [id number] Physician: ABNER T. LAUREANO, MD FI NAL [...] - Colonic mucosa with no significantpathologic change.ES/lbk 10/16/[id number]. Given the presence of mild chronic inactive [...] stain that was performed on the gastric biopsy([id number], block B1) due to the presence of mild chronic inactivegastritis. The Helicobacter pylori immunohistochemical stain is negativefor Helicobacter pylori organisms. The final diagnosis remains unchanged.Laboratory Developed Test (LDT) Disclaimer:Positive and negative controls stain appropriately. Performancecharacteristics of immunohistochemical, immunofluorescent and chromogenicin-situ hybridization tests have been determined by [facility] [place] (-PL[facility]) monster manner consistent with CLIA requirements. [...] submitted in one cassette.Gross examination performed at [facility], [address] [place] [address] 10/14/2017 9:12:12 PMPatient ID #: [id number] of Report: 10/16/2017Date of Procedure: 10/14/2017Date of Receipt: 10/14/2017Submitted by: ABNER TINSLEY MDLocation: MEENDDiagnostic interpretation performed at [place] [address]. [facility] Comment on above: Performed By: #### P ATHS ####[facility] [address] [id number] NURSING PROGon 10-12-2017 NURSING PROG HNO ID: [id number] thor: Lyric Chao (Rn) Andrés, RNService: (none)Author [...] an injectionChart Check:Jeet [place] 2017 2:44 PM [facility] HOSPon 09-30-2017 HOSP Patient:[facility] JMRN: Height:5' 3(1.6 m)Weight:218 lb (98.884 kg)Outpatient [...] 36.3 % 09/24/2017 46.0 36.0Progress Notes ([facility]):Nava Jama 10/02/2017 1:09 PM SignedNew patient [...] work justprior, notes should read as follows... CBC/SMEAR/HAND DRILLER/IRON DEF. ANEMIA/REF. CK*Once schedule please note and close encounterAshley Barnesethan PsrProgress Notes ([facility]):Radha Lassiterrobert Psr 10/02/2017 11:49 AM SignedPlease call patient to schedule. [phone] Psr [facility] 10/02/2017 1:03 PM SignedReferral sent to Dr. Booker to review. Normal [facility] Free T4on 05-17-2017 Thyroxine (T4) free 0.78 ng/dL Normal 0.58-1.64 [facility] Comment on above: Result Comment: Geraldine ents receiving more than 5mg/day of biotin may have interference in test results. A sample should be taken no sooner than eight hours after previous dose. Performed By: #### 2 [id number] ####ISABEL [address] [place] [address] TSHon 05-17-2017 Thyroid stimulating hormone (TSH) 0.41 mIU/m Normal 0.30-5.60 [facility] Comment on above: Performed By: #### 2 [id number] ####ISABEL [address] [place] [address] U BhCG Qlton 05-17-2017 HCG.beta subunit Qn Negative Normal Neg [facility] Comment on above: Performed By: #### 2 [id number] ####ISABEL Urinalysis Manual [address] [place] [address] UA Completeon 05-17-2017 UA Blood Negative Normal Negative [facility] Comment on above: Performed By: #### 8 [id number] ####ISABEL Urinalysis Automated [address] [place] [id number] UA Clarity Clear Normal Clear [facility] Comment on above: Performed By: #### 8 [id number] ####ISABEL Urinalysis Automated [address] [place] [address] UA Leuk Est Negative Normal Negative [facility] Comment on above: Performed By: #### 8 [id number] ####ISABEL Urinalysis Automated [address] [place] [address] UA Mucous Trace Abnormal Trace [facility] Comment on above: Performed By: #### 8 [id number] ####ISABEL Urinalysis Automated [address] [place] [address] UA Nitrite Negative Normal Negative [facility] Comment on above: Performed By: #### 8 [id number] ####ISABEL Urinalysis Automated [address] [place] [address] UA pH 6.0 Normal 4.6-8.0 [facility] Comment on above: Performed By: #### 8 [id number] ####ISABEL Urinalysis Automated [address] [place] [address] UA Protein Negative Normal Negative [facility] Comment on above: Performed By: #### 8 [id number] ####ISABEL Urinalysis Automated [address] [place] [address] UA Spec Grav 1.009 Normal 1.003-1.030 [facility] Comment on above: Performed By: #### 8 [id number] ####ISABEL Urinalysis Automated [address] [place] [address] UA Squam Epithelial 5-10 Abnormal 0-5 [facility] Comment on above: Performed By: #### 8 [id number] ####ISABEL Urinalysis Automated [address] [place] [address] UA Urobilinogen Negative Normal [facility] Comment on above: Performed By: #### 8 [id number] ####ISABEL Urinalysis Automated [address] [place] [address] UA WBC 0-5 Normal 0-5 [facility] Comment on above: Performed By: #### 8 [id number] ####ISABEL Urinalysis Automated [address] [place] [address] Urine, color Straw Normal Yellow [facility] Comment on above: Performed By: #### 8 [id number] ####ISABEL Urinalysis Automated [address] [place] [address] Urine, erythrocytes 0-3 Normal 0-3 [facility] Comment on above: Performed By: #### 8 [id number] ####ISABEL Urinalysis Automated [address] [place] [address] Urine, glucose Negative Normal Negative [facility] Comment on above: Performed By: #### 8 [id number] ####ISABEL Urinalysis Automated [address] [place] [address] Urine, ketones presence Negative Normal Negative [facility] Comment on above: Performed By: #### 8 [id number] ####ISABEL Urinalysis Automated [address] [place] [address] Urine, urobilinogen Negative Normal Negative [facility] Comment on above: Performed By: #### 8 [id number] ####ISABEL Urinalysis Automated [address] [place] [address] XR Abdomen Acute (PA Chest)o n 05-17-2017 [...] by: Franklin Martinez MD Technologist: HLR Normal [facility] Vital Signs Date Time Vital Sign Value Performing Clinician Facility 01-12-2025 11:140400 Body mass index (BMI) [Ratio] 46.6 kg/m2 Ximena Hartman MD Work Phone: [facility] 01-12-2025 11:14-0400 Body weight 122.29 kg Ximena Hartman MD Work Phone: [facility] 01-12-2025 11:14-0400 Diastolic blood pressure 84 mm[Hg] Ximena Hartman MD Work Phone: [facility] 01-12-2025 11:14-0400 Systolic blood pressure 108 mm[Hg] Ximena Hartman MD Work Phone: [facility] 12-28-2024 13:41-0400 Body mass index (BMI) [Ratio] 45.97 kg/m2 Emmanuel Hess MD Work Phone: [facility] 12-28-2024 13:41-0400 Body weight 120.66 kg Emmanuel Hess MD Work Phone: [facility] 12-28-2024 13:41-0400 Diastolic blood pressure 84 mm[Hg] Emmanuel Hess MD Work Phone: [facility] 12-28-2024 13:41-0400 Systolic blood pressure 128 mm[Hg] Emmanuel Hess MD Work Phone: [facility] 12-23-2024 18:08-0400 Heart rate 110 /min Dr. Geine Jackson MD Work Phone: [facility] 12-23-2024 18:08-0400 SaO2% (BldA) [Mass fraction] 97 % Dr. Genie Jackson MD Work Phone: [facility] 12-23-2024 17:59-0400 Diastolic blood pressure 69 mm[Hg] Dr. Genie Jackson MD Work Phone: [facility] 12-23-2024 17:59-0400 Systolic blood pressure 120 mm[Hg] Dr. Genie Jackson MD Work Phone: [facility] 12-23-2024 17:58-0400 Body temperature 98.2 [degF] Dr. Genie Jackson MD Work Phone: [facility] 12-23-2024 17:58-0400 Respiratory rate 14 /min Dr. Genie Jackson MD Work Phone: [facility] 12-23-2024 17:49-0400 Body height 160.[address] Genie Jackson MD Work Phone: [facility] 12-23-2024 17:49-0400 Body mass index (BMI) [Ratio] 47.5 kg/m2 Dr. Genie Jackson MD Work Phone: [facility] 12-23-2024 17:49-0400 Body weight 121.[address] Genie Jackson MD Work Phone: [facility] 11-29-2024 10:14-0400 Body mass index (BMI) [Ratio] 44.9 kg/m2 Elayne Keaau FAMILY LAW ATTORNEY.SHOE REPAIR SUPERVISOR Work Phone: [facility] 11-29-2024 10:14-0400 Body weight 117.84 kg Elayne Maycol FAMILY LAW ATTORNEY.SHOE REPAIR SUPERVISOR Work Phone: [facility] 11-29-2024 10:14-0400 Diastolic blood pressure 74 mm[Hg] Elayne Maycol FAMILY LAW ATTORNEY.SHOE REPAIR SUPERVISOR Work Phone: [facility] 11-29-2024 10:14-0400 Systolic blood pressure 126 mm[Hg] Elayne Maycol FAMILY LAW ATTORNEY.SHOE REPAIR SUPERVISOR Work Phone: [facility] 11-19-2024 23:38-0400 Diastolic blood pressure 68 mm[Hg] Dr. Genie Jackson MD Work Phone: [facility] 11-19-2024 23:38-0400 Heart rate 94 /min Dr. Genie Jackson MD Work Phone: [facility] 11-19-2024 23:38-0400 Systolic blood pressure 117 mm[Hg] Dr. Genie Jackson MD Work Phone: [facility] 11-19-2024 23:00-0400 Body height 165.[address] Genie Jackson MD Work Phone: [facility] 11-19-2024 23:00-0400 Body mass index (BMI) [Ratio] 43.5 kg/m2 Dr. Genie Jackson MD Work Phone: [facility] 11-19-2024 23:00-0400 Body weight 118.[address] Genie Jackson MD Work Phone: [facility] 11-19-2024 22:38-0400 Body temperature 97.8 [degF] Dr. Genie Jackson MD Work Phone: [facility] 11-19-2024 22:38-0400 Respiratory rate 18 /min Dr. Genie Jackson MD Work Phone: [facility] 11-19-2024 22:38-0400 SaO2% (BldA) [Mass fraction] 92 % Dr. Genie Jackson MD Work Phone: [facility] 10-26-2024 11:12-0400 Body mass index (BMI) [Ratio] 44.07 kg/m2 Steffanie Lopez MD Work Phone: [facility] 10-26-2024 11:12-0400 Body weight 115.67 kg Steffanie Lopez MD Work Phone: [facility] 10-26-2024 11:12-0400 Diastolic blood pressure 82 mm[Hg] Steffanie Lopez MD Work Phone: [facility] 10-26-2024 11:12-0400 Systolic blood pressure 124 mm[Hg] Steffanie Lopez MD Work Phone: [facility] 09-29-2024 11:25-0400 Body mass index (BMI) [Ratio] 42.52 kg/m2 Emmanuel Hess MD Work Phone: [facility] 09-29-2024 11:25-0400 Body weight 111.58 kg Emmanuel Hess MD Work Phone: [facility] 09-29-2024 11:25-0400 Diastolic blood pressure 82 mm[Hg] Emmanuel Hess MD Work Phone: [facility] 09-29-2024 11:25-0400 Systolic blood pressure 110 mm[Hg] Emmanuel Hess MD Work Phone: [facility] 08-31-2024 11:48-0400 Body mass index (BMI) [Ratio] 40.27 kg/m2 Bhargavivivian Navas FAMILY LAW ATTORNEY.CNM Work Phone: [facility] 08-31-2024 11:48-0400 Body weight 105.69 kg Bhargavi Navas FAMILY LAW ATTORNEY.CNM Work Phone: [facility] 08-31-2024 11:48-0400 Diastolic blood pressure 70 mm[Hg] Bhargavi Navas FAMILY LAW ATTORNEY.CNM Work Phone: [facility] 08-31-2024 11:48-0400 Systolic blood pressure 112 mm[Hg] Bhargavi Navas FAMILY LAW ATTORNEY.CNM Work Phone: [facility] 08-01-2024 08:19-0400 Body mass index (BMI) [Ratio] 38.58 kg/m2 Elayne Maycol FAMILY LAW ATTORNEY.SHOE REPAIR SUPERVISOR Work Phone: [facility] 08-01-2024 08:19-0400 Body weight 101.24 kg Elayne Maycol FAMILY LAW ATTORNEY.SHOE REPAIR SUPERVISOR Work Phone: [facility] 08-01-2024 08:19-0400 Diastolic blood pressure 70 mm[Hg] Elayne Maycol FAMILY LAW ATTORNEY.SHOE REPAIR SUPERVISOR Work Phone: [facility] 08-01-2024 08:19-0400 Systolic blood pressure 116 mm[Hg] Elayne Maycol FAMILY LAW ATTORNEY.SHOE REPAIR SUPERVISOR Work Phone: [facility] 07-20-2024 13:05-0400 Body mass index (BMI) [Ratio] 37.82 kg/m2 Roxana Fry FAMILY LAW ATTORNEY.CNM Work Phone: [facility] 07-20-2024 13:05-0400 Body weight 99.25 kg Roxana Fry FAMILY LAW ATTORNEY.CNM Work Phone: [facility] 07-20-2024 13:05-0400 Diastolic blood pressure 64 mm[Hg] Roxana Plotts FAMILY LAW ATTORNEY.CNM Work Phone: [facility] 07-20-2024 13:05-0400 Systolic blood pressure 112 mm[Hg] Roxana Plotts FAMILY LAW ATTORNEY.CNM Work Phone: [facility] 05-13-2024 13:29-0500 Body mass index (BMI) [Ratio] 35.6 kg/m2 Terrell Cloud FAMILY LAW ATTORNEY.SHOE REPAIR SUPERVISOR Work Phone: [facility] 05-13-2024 13:29-0500 Body temperature 99 [degF] Terrell Cloud FAMILY LAW ATTORNEY.SHOE REPAIR SUPERVISOR Work Phone: [facility] 05-13-2024 13:29-0500 Body weight 93.44 kg Terrell Cloud FAMILY LAW ATTORNEY.SHOE REPAIR SUPERVISOR Work Phone: [facility] 05-13-2024 13:29-0500 Diastolic blood pressure 78 mm[Hg] Terrell Cloud FAMILY LAW ATTORNEY.SHOE REPAIR SUPERVISOR Work Phone: [facility] 05-13-2024 13:29-0500 Heart rate 72 /min Terrell Cloud FAMILY LAW ATTORNEY.SHOE REPAIR SUPERVISOR Work Phone: [facility] 05-13-2024 13:29-0500 Respiratory rate 16 /min Terrell Cloud FAMILY LAW ATTORNEY.SHOE REPAIR SUPERVISOR Work Phone: [facility] 05-13-2024 13:29-0500 SaO2% (BldA) [Mass fraction] 97 % Terrell Cloud FAMILY LAW ATTORNEY.SHOE REPAIR SUPERVISOR Work Phone: [facility] 05-13-2024 13:29-0500 Systolic blood pressure 121 mm[Hg] Terrell Husam FAMILY LAW ATTORNEY.SHOE REPAIR SUPERVISOR Work Phone: [facility] 05-13-2024 09:50-0500 Body mass index (BMI) [Ratio] 36.16 kg/m2 Elayne Severino FAMILY LAW ATTORNEY.SHOE REPAIR SUPERVISOR Work Phone: [facility] 05-13-2024 09:50-0500 [facility] FAMILY LAW ATTORNEY.SHOE REPAIR SUPERVISOR Work Phone: [facility] 05-13-2024 09:50-0500 Diastolic blood pressure 66 mm[Hg] Elayne Maycol FAMILY LAW ATTORNEY.SHOE REPAIR SUPERVISOR Work Phone: [facility] 05-13-2024 09:50-0500 Systolic blood pressure 122 mm[Hg] [facility] Keaau FAMILY LAW ATTORNEY.SHOE REPAIR SUPERVISOR Work Phone: [facility] 04-14-2024 12:00-0500 Body mass index (BMI) [Ratio] 35.21 kg/m2 [facility] FAMILY LAW ATTORNEY.SHOE REPAIR SUPERVISOR Work Phone: [facility] 04-14-2024 12:00-0500 Body temperature 98.01 [degF] [facility] FAMILY LAW ATTORNEY.SHOE REPAIR SUPERVISOR Work Phone: [facility] 04-14-2024 12:00-0500 Body weight 92.4 kg [facility] FAMILY LAW ATTORNEY.SHOE REPAIR SUPERVISOR Work Phone: [facility] 04-14-2024 12:00-0500 Diastolic blood pressure 82 mm[Hg] [facility] FAMILY LAW ATTORNEY.SHOE REPAIR SUPERVISOR Work Phone: [facility] 04-14-2024 12:00-0500 Heart rate 103 /min [facility] FAMILY LAW ATTORNEY.SHOE REPAIR SUPERVISOR Work Phone: [facility] 04-14-2024 12:00-0500 Respiratory rate 20 /min [facility] FAMILY LAW ATTORNEY.SHOE REPAIR SUPERVISOR Work Phone: [facility] 04-14-2024 12:00-0500 SaO2% (BldA) [Mass fraction] 98 % [facility] FAMILY LAW ATTORNEY.SHOE REPAIR SUPERVISOR Work Phone: [facility] 04-14-2024 12:00-0500 Systolic blood pressure 104 mm[Hg] [facility] FAMILY LAW ATTORNEY.SHOE REPAIR SUPERVISOR Work Phone: [facility] 01-22-2024 09:25-0400 Body height 162 cm Ivelisse [facility] FAMILY LAW ATTORNEY.SHOE REPAIR SUPERVISOR Work Phone: [facility] 01-22-2024 09:25-0400 Body mass index (BMI) [Ratio] 35.06 kg/m2 Ivelisse Tannhof FAMILY LAW ATTORNEY.SHOE REPAIR SUPERVISOR Work Phone: [facility] 01-22-2024 09:25-0400 Body weight 92 kg Ivelisse Tannhof FAMILY LAW ATTORNEY.SHOE REPAIR SUPERVISOR Work Phone: [facility] 01-22-2024 09:25-0400 Diastolic blood pressure 77 mm[Hg] Ivelisse Tannhof FAMILY LAW ATTORNEY.SHOE REPAIR SUPERVISOR Work Phone: [facility] 01-22-2024 09:25-0400 Heart rate 58 /min Ivelisse Tannhof FAMILY LAW ATTORNEY.SHOE REPAIR SUPERVISOR Work Phone: [facility] 01-22-2024 09:25-0400 Respiratory rate 16 /min Ivelisse Tannhof FAMILY LAW ATTORNEY.SHOE REPAIR SUPERVISOR Work Phone: [facility] 01-22-2024 09:25-0400 SaO2% (BldA) [Mass fraction] 96 % Ivelisse Tannhof FAMILY LAW ATTORNEY.SHOE REPAIR SUPERVISOR Work Phone: [facility] 01-22-2024 09:25-0400 Systolic blood pressure 110 mm[Hg] Ivelisse Tannhof FAMILY LAW ATTORNEY.SHOE REPAIR SUPERVISOR Work Phone: [facility] 11-10-2023 15:35-0400 Body height 162.6 cm Elayne Maycol FAMILY LAW ATTORNEY.SHOE REPAIR SUPERVISOR Work Phone: [facility] 11-10-2023 15:35-0400 Body mass index (BMI) [Ratio] 37.28 kg/m2 Elayne Maycol FAMILY LAW ATTORNEY.SHOE REPAIR SUPERVISOR Work Phone: [facility] 11-10-2023 15:35-0400 Body weight 98.52 kg Elayne Keaau FAMILY LAW ATTORNEY.SHOE REPAIR SUPERVISOR Work Phone: [facility] 11-10-2023 15:35-0400 Diastolic blood pressure 60 mm[Hg] Elayne Maycol FAMILY LAW ATTORNEY.SHOE REPAIR SUPERVISOR Work Phone: [facility] 11-10-2023 15:35-0400 Systolic blood pressure 98 mm[Hg] Elayne Keaau FAMILY LAW ATTORNEY.SHOE REPAIR SUPERVISOR Work Phone: [facility] 10-07-2023 11:32-0400 Body mass index (BMI) [Ratio] 39.01 kg/m2 Bhargavi Monique FAMILY LAW ATTORNEY.SHOE REPAIR SUPERVISOR Work Phone: [facility] 10-07-2023 11:32-0400 Body temperature 98.6 [degF] Bhargavi Monique FAMILY LAW ATTORNEY.SHOE REPAIR SUPERVISOR Work Phone: [facility] 10-07-2023 11:32-0400 Body weight 99.9 kg Bhargavi Monique FAMILY LAW ATTORNEY.SHOE REPAIR SUPERVISOR Work Phone: [facility] 10-07-2023 11:32-0400 Diastolic blood pressure 80 mm[Hg] Bhargavi Monique FAMILY LAW ATTORNEY.SHOE REPAIR SUPERVISOR Work Phone: [facility] 10-07-2023 11:32-0400 Heart rate 90 /min Bhargavi Monique FAMILY LAW ATTORNEY.SHOE REPAIR SUPERVISOR Work Phone: [facility] 10-07-2023 11:32-0400 Respiratory rate 16 /min Bhargavi Monique FAMILY LAW ATTORNEY.SHOE REPAIR SUPERVISOR Work Phone: [facility] 10-07-2023 11:32-0400 SaO2% (BldA) [Mass fraction] 99 % Bhargavi Monique FAMILY LAW ATTORNEY.SHOE REPAIR SUPERVISOR Work Phone: [facility] 10-07-2023 11:32-0400 Systolic blood pressure 122 mm[Hg] Bhargavi Monique FAMILY LAW ATTORNEY.SHOE REPAIR SUPERVISOR Work Phone: [facility] 07-06-2023 01:24-0500 Blood Pressure Location TERRELL AHMADI MD [facility] 07-06-2023 01:24-0500 Body height 160 cm TERRELL AHMADI MD [facility] 07-06-2023 01:24-0500 Body temperature 96.98 [degF] TERRELL AHMADI MD [facility] 07-06-2023 01:24-0500 Body weight 90.9 kg TERRELL AHMADI MD [facility] 07-06-2023 01:24-0500 Diastolic Blood Pressure Non-Invasive 86 mm[Hg] TERRELL AHMADI MD [facility] 07-06-2023 01:24-0500 Heart rate 88 /min TERRELL AHMADI MD [facility] 07-06-2023 01:24-0500 Respiratory rate 18 /min TERRELL AHMADI MD [facility] 07-06-2023 01:24-0500 Systolic Blood Pressure Non-Invasive 118 mm[Hg] TERRELL AHMADI MD [facility] 07-02-2023 11:11-0500 Diastolic blood pressure 80 mm[Hg] [facility] 07-02-2023 11:11-0500 Heart rate 96 /min [facility] 07-02-2023 11:11-0500 Respiratory rate 18 /min [facility] 07-02-2023 11:11-0500 SaO2% (BldA) [Mass fraction] 98 % [facility] 07-02-2023 11:11-0500 Systolic blood pressure 124 mm[Hg] [facility] 07-02-2023 08:44-0500 Body height 160.02 cm [facility] 07-02-2023 08:44-0500 Body mass index (BMI) [Ratio] 38.4 kg/m2 [facility] 07-02-2023 08:44-0500 Body temperature 98.3 [degF] [facility] 07-02-2023 08:44-0500 Body weight 98.4 kg [facility] 07-02-2023 08:24-0500 Body temperature 97.81 [degF] Bhargavi Monique APRN.CNP Work Phone: [facility] 07-02-2023 08:24-0500 Body weight 97.98 kg Bhargavi Monique FAMILY LAW ATTORNEY.SHOE REPAIR SUPERVISOR Work Phone: [facility] 07-02-2023 08:24-0500 Diastolic blood pressure 70 mm[Hg] Bhargavi Monique FAMILY LAW ATTORNEY.SHOE REPAIR SUPERVISOR Work Phone: [facility] 07-02-2023 08:24-0500 Heart rate 74 /min Bhargavi Monique FAMILY LAW ATTORNEY.SHOE REPAIR SUPERVISOR Work Phone: [facility] 07-02-2023 08:24-0500 Respiratory rate 18 /min Bhargavi Monique FAMILY LAW ATTORNEY.SHOE REPAIR SUPERVISOR Work Phone: [facility] 07-02-2023 08:24-0500 SaO2% (BldA) [Mass fraction] 99 % Bhargavi Monique FAMILY LAW ATTORNEY.SHOE REPAIR SUPERVISOR Work Phone: [facility] 07-02-2023 08:24-0500 Systolic blood pressure 105 mm[Hg] Bhargavi Monique FAMILY LAW ATTORNEY.SHOE REPAIR SUPERVISOR Work Phone: [facility] 09-30-2022 12:20-0400 Body temperature 99.19 [degF] Ruth Athy PA-C Work Phone: [facility] 09-30-2022 12:20-0400 Body weight 103.33 kg Ruth Athy PA-C Work Phone: [facility] 09-30-2022 12:20-0400 Diastolic blood pressure 72 mm[Hg] Ruth Athy PA-C Work Phone: [facility] 09-30-2022 12:20-0400 Heart rate 107 /min Ruth Athy PA-C Work Phone: [facility] 09-30-2022 12:20-0400 Respiratory rate 16 /min Ruth Athy PA-C Work Phone: [facility] 09-30-2022 12:20-0400 SaO2% (BldA) [Mass fraction] 96 % Ruth Athy PA-C Work Phone: [facility] 09-30-2022 12:20-0400 Systolic blood pressure 104 mm[Hg] Ruth Vallejo PA-C Work Phone: [facility] 09-06-2022 15:49-0400 Body temperature 97.9 [degF] [facility] 09-06-2022 15:49-0400 Diastolic blood pressure 78 mm[Hg] [facility] 09-06-2022 15:49-0400 Heart rate 78 /min [facility] 09-06-2022 15:49-0400 Respiratory rate 16 /min [facility] 09-06-2022 15:49-0400 SaO2% (BldA) [Mass fraction] 99 % [facility] 09-06-2022 15:49-0400 Systolic blood pressure 134 mm[Hg] [facility] 09-06-2022 13:56-0400 Body height 160.02 cm [facility] 09-06-2022 13:56-0400 Body mass index (BMI) [Ratio] 40.7 kg/m2 [facility] 09-06-2022 13:56-0400 Body weight 104.28 kg [facility] 08-26-2022 13:05-0400 Body temperature 98.2 [degF] Terrell Husam FAMILY LAW ATTORNEY.SHOE REPAIR SUPERVISOR Work Phone: [facility] 08-26-2022 13:05-0400 Body weight 105.23 kg Terrell Husam FAMILY LAW ATTORNEY.SHOE REPAIR SUPERVISOR Work Phone: [facility] 08-26-2022 13:05-0400 Diastolic blood pressure 71 mm[Hg] Terrell Husam FAMILY LAW ATTORNEY.SHOE REPAIR SUPERVISOR Work Phone: [facility] 08-26-2022 13:05-0400 Heart rate 100 /min Terrell Husam FAMILY LAW ATTORNEY.SHOE REPAIR SUPERVISOR Work Phone: [facility] 08-26-2022 13:05-0400 Respiratory rate 16 /min Terrell Husam FAMILY LAW ATTORNEY.SHOE REPAIR SUPERVISOR Work Phone: [facility] 08-26-2022 13:05-0400 SaO2% (BldA) [Mass fraction] 96 % Terrell Husam FAMILY LAW ATTORNEY.SHOE REPAIR SUPERVISOR Work Phone: [facility] 08-26-2022 13:05-0400 Systolic blood pressure 108 mm[Hg] Terrell Cloud APRN.SHOE REPAIR SUPERVISOR Work Phone: [facility] 08-22-2022 19:52-0400 Diastolic blood pressure 67 mm[Hg] Genie Jackson Other Phone: [facility] 08-22-2022 19:52-0400 Heart rate 88 /min Genie Jackson Other Phone: [facility] 08-22-2022 19:52-0400 Respiratory rate 18 /min Genie Jackson Other Phone: [facility] 08-22-2022 19:52-0400 SaO2% (BldA) [Mass fraction] 97 % Genie Jackson Other Phone: [facility] 08-22-2022 19:52-0400 Systolic blood pressure 140 mm[Hg] Genie Jackson Other Phone: [facility] 08-22-2022 16:04-0400 Body height 160 cm Genie Jackson Other Phone: [facility] 08-22-2022 16:04-0400 Body temperature 97.7 [degF] Genie Jackson Other Phone: [facility] 08-22-2022 16:04-0400 Body weight 104 kg Genie Jackson Other Phone: [facility] 06-30-2022 08:53-0500 Body height 160.02 cm [facility] 06-30-2022 08:53-0500 Body mass index (BMI) [Ratio] 42.6 kg/m2 [facility] 06-30-2022 08:53-0500 Body temperature 97.8 [degF] [facility] 06-30-2022 08:53-0500 Body weight 109.13 kg [facility] 06-30-2022 08:53-0500 Diastolic blood pressure 84 mm[Hg] [facility] 06-30-2022 08:53-0500 Heart rate 94 /min [facility] 06-30-2022 08:53-0500 Respiratory rate 18 /min [facility] 06-30-2022 08:53-0500 SaO2% (BldA) [Mass fraction] 97 % [facility] 06-30-2022 08:53-0500 Systolic blood pressure 136 mm[Hg] [facility] 03-02-2022 22:09-0400 Heart rate 113 /min [facility] 03-02-2022 22:09-0400 Respiratory rate 15 /min [facility] 03-02-2022 22:09-0400 SaO2% (BldA) [Mass fraction] 97 % [facility] 03-02-2022 21:14-0400 Body height 160.02 cm [facility] Work Phone: 03-02-2022 21:14-0400 Body mass index (BMI) [Ratio] 40.7 kg/m2 [facility] 03-02-2022 21:14-0400 Body temperature 97.3 [degF] [facility] 03-02-2022 21:14-0400 Body weight 104.32 kg [facility] 03-02-2022 21:14-0400 Diastolic blood pressure 104 mm[Hg] [facility] 03-02-2022 21:14-0400 Systolic blood pressure 134 mm[Hg] [facility] 02-12-2022 14:11-0400 Body temperature 98.91 [degF] Michelle Podlogar FAMILY LAW ATTORNEY.SHOE REPAIR SUPERVISOR Work Phone: [facility] 02-12-2022 14:11-0400 Body weight 106.96 kg Michelle Podlogar FAMILY LAW ATTORNEY.SHOE REPAIR SUPERVISOR Work Phone: [facility] 02-12-2022 14:11-0400 Diastolic blood pressure 86 mm[Hg] Michelle Podlogar FAMILY LAW ATTORNEYAileenSHOE REPAIR SUPERVISOR Work Phone: [facility] 02-12-2022 14:11-0400 Heart rate 106 /min Michelle Podlogar FAMILY LAW ATTORNEY.SHOE REPAIR SUPERVISOR Work Phone: [facility] 02-12-2022 14:11-0400 Respiratory rate 18 /min Michelle Podlogar FAMILY LAW ATTORNEY.SHOE REPAIR SUPERVISOR Work Phone: [facility] 02-12-2022 14:11-0400 SaO2% (BldA) [Mass fraction] 98 % Michelle Podlogar FAMILY LAW ATTORNEY.SHOE REPAIR SUPERVISOR Work Phone: [facility] 02-12-2022 14:11-0400 Systolic blood pressure 122 mm[Hg] Michelle Podlogar FAMILY LAW ATTORNEY.SHOE REPAIR SUPERVISOR Work Phone: [facility] 02-05-2022 12:12-0400 Body temperature 98.71 [degF] Ruth Athy PA-C Work Phone: [facility] 02-05-2022 12:12-0400 Body weight 108.77 kg Ruth Athy PA-C Work Phone: [facility] 02-05-2022 12:12-0400 Diastolic blood pressure 64 mm[Hg] Ruth Athy PA-C Work Phone: [facility] 02-05-2022 12:12-0400 Heart rate 126 /min Ruth Athy PA-C Work Phone: [facility] 02-05-2022 12:12-0400 Respiratory rate 18 /min Ruth Athy PA-C Work Phone: [facility] 02-05-2022 12:12-0400 SaO2% (BldA) [Mass fraction] 97 % Ruth Athy PA-C Work Phone: [facility] 02-05-2022 12:12-0400 Systolic blood pressure 104 mm[Hg] Ruth Athy PA-C Work Phone: [facility] 02-02-2022 10:04-0400 Body temperature 98.71 [degF] Ruth Athy PA-C Work Phone: [facility] 02-02-2022 10:04-0400 Body weight 108.68 kg Ruth Athy PA-C Work Phone: [facility] 02-02-2022 10:04-0400 Diastolic blood pressure 76 mm[Hg] Ruth Athy PA-C Work Phone: [facility] 02-02-2022 10:04-0400 Heart rate 99 /min Ruth Athy PA-C Work Phone: [facility] 02-02-2022 10:04-0400 Respiratory rate 20 /min Ruth Athy PA-C Work Phone: [facility] 02-02-2022 10:04-0400 SaO2% (BldA) [Mass fraction] 98 % Ruth Athy PA-C Work Phone: [facility] 02-02-2022 10:04-0400 Systolic blood pressure 126 mm[Hg] Ruth Athy PA-C Work Phone: [facility] 12-24-2021 14:16-0400 Body temperature 97.81 [degF] Ruth Athy PA-C Work Phone: [facility] 12-24-2021 14:16-0400 Body weight 107.59 kg Ruth Athy PA-C Work Phone: [facility] 12-24-2021 14:16-0400 Diastolic blood pressure 70 mm[Hg] Ruth Athy PA-C Work Phone: [facility] 12-24-2021 14:16-0400 Heart rate 107 /min Ruth Athy PA-C Work Phone: [facility] 12-24-2021 14:16-0400 Respiratory rate 18 /min Ruth Athy PA-C Work Phone: [facility] 12-24-2021 14:16-0400 SaO2% (BldA) [Mass fraction] 97 % Ruth Athy PA-C Work Phone: [facility] 12-24-2021 14:16-0400 Systolic blood pressure 114 mm[Hg] Ruth Athy PA-C Work Phone: [facility] 09-17-2021 13:46-0400 Body temperature 99.3 [degF] Terrell Husam FAMILY LAW ATTORNEY.SHOE REPAIR SUPERVISOR Work Phone: [facility] 09-17-2021 13:46-0400 Body weight 107.05 kg Terrell Husam FAMILY LAW ATTORNEY.SHOE REPAIR SUPERVISOR Work Phone: [facility] 09-17-2021 13:46-0400 Diastolic blood pressure 80 mm[Hg] Terrell Husam FAMILY LAW ATTORNEY.SHOE REPAIR SUPERVISOR Work Phone: [facility] 09-17-2021 13:46-0400 Heart rate 88 /min Terrell Husam FAMILY LAW ATTORNEY.SHOE REPAIR SUPERVISOR Work Phone: [facility] 09-17-2021 13:46-0400 Respiratory rate 16 /min Terrell Husam FAMILY LAW ATTORNEY.SHOE REPAIR SUPERVISOR Work Phone: [facility] 09-17-2021 13:46-0400 Systolic blood pressure 112 mm[Hg] Terrell Husam FAMILY LAW ATTORNEY.SHOE REPAIR SUPERVISOR Work Phone: [facility] Encounters Encounter Date Encounter Type Care Provider Facility Start: 02-14-2025 End: 02-14-2025 ambulatory GENIE Marie [facility] Facility:[facility] Start: 02-13-2025 End: 02-13-2025 ambulatory EMMANUEL HESS Facility:[facility] Start: 02-09-2025 End: 02-09-2025 ambulatory EMMANUEL HESS Facility:[facility] Start: 02-09-2025 End: 02-09-2025 ambulatory XIMENA HARTMAN Facility:[facility] Start: 02-07-2025 End: 02-07-2025 ambulatory GENIE Marie [facility] Facility:[facility] Start: 02-02-2025 End: 02-02-2025 ambulatory [facility] Facility:[facility] Start: 2025 End: 2025 ambulatory EMMANUEL HESS Facility:[facility] Start: 01-27-2025 End: 01-27-2025 ambulatory [facility] Facility:[facility] Start: 01-27-2025 End: 01-27-2025 ambulatory GENIE Marie [facility] Facility:[facility] Start: 01-24-2025 End: 01-24-2025 ambulatory EMMANUELLOIS HESS Facility:[facility] Start: 01-17-2025 End: 01-17-2025 ambulatory Ximena [...] Start: 01-12-2025 End: 01-12-2025 ambulatory GENIE Marie [facility] Facility:[facility] Start: 01-05-2025 End: 01-05-2025 Refill Andre Simpson APRN.[facility] Work Phone: [facility] Comment on above: Refill Request Start: 12-29-2024 End: 12-29-2024 Telephone encounter Steffanie Neely RN [facility] Comment on above: Back Order Clerk - O ther (PRAF) Results Start: 12-28-2024 End: 12-28-2024 Patient encounter procedure Mold Design [employer] Work Phone: Maternal [...] Start: 12-28-2024 End: 12-28-2024 ambulatory ELAYNE SEVERINO Facility:[facility] Start: 12-23-2024 End: 12-23-[address] Genie Jackson MD Work Phone: [facility] Start: 12-23-2024 End: 12-23-2024 Patient encounter procedure Roxana Fry CNM [facility] Work Phone: Start: 12-23-2024 End: 12-23-2024 Telephone encounter Roxana Fry FAMILY LAW ATTORNEY.CNM Work Phone: OB/Gynecology Start: 11-29-2024 End: 11-29-2024 Telemedicine consultation with patient Andre Simpson FAMILY LAW ATTORNEY.SHOE REPAIR SUPERVISOR Work Phone: [facility] [place] Start: 11-29-2024 End: 11-29-2024 ambulatory Andre Masha FAMILY LAW ATTORNEY.SHOE REPAIR SUPERVISOR Work Phone: [facility] [place] Comment on above: Anxiety with depress ion Start: 11-29-2024 End: 11-29-2024 Patient encounter procedure Elayne Severino APRN.SHOE REPAIR SUPERVISOR Work Phone: OB/Gynecology Comment on above: Supervision of other high risk pregnancies, second trimester (HCC) (Primary Dx); 25 weeks gestation of (HCC); Screening for diabetes mellitus; Hx of preeclampsia, prior , currently (HCC); Hypothyroidism, unspecified type; Obesity in (HCC) Start: 11-29-2024 End: 11-29-2024 ambulatory ELAYNEMEE ÁLVAREZMAYCOL Facility:[facility] Start: 11-19-2024 End: 11-20-[address] [...] RN Maternal Medic ine Comment on above: Back Order Clerk - O ther (PRAF) Start: 10-26-2024 End: [...] 10-26-2024 Patient encounter procedure Whi Tech 1 Mold Design Engineer Mfm [facility] Maternal Medicine Comment on above: Obesity in (HCC) (Primary Dx); 8 weeks gestation of (HCC) Start: 10-26-2024 End: 10-26-2024 ambulatory [facility] Facility:[facility] Start: 10-25-2024 End: 10-25-2024 ambulatory [facility] Facility:[facility] Start: 10-11-2024 End: 11-30-2024 Refill Bhargavi Navas APRN.CNM Work Phone: OB/Gynecology Comment on above: Refill Request Start: 10-05-2024 End: 10-05-2024 Patient encounter procedure Whi Tech 4 Mold Design Engineer Mfm [facility]aternal [facility] Comment on above: Encounter for antena heidy screening for malformation (HCC) (Primary Dx); Supervision of other high risk pregnancies, second trimester (HCC); Hx of preeclampsia, prior , currently (HCC); Obesity in (HCC); Hypothyroidism, unspecified type Start: 10-05-2024 End: 10-05-2024 ambulatory EMMANUEL HESS Facility:[facility] Start: 09-30-2024 End: 11-30-2024 Follow-up encounter [...] disease) Start: 09-29-2024 End: 09-29-2024 [facility] Start: 09-27-2024 End: 11-27-2024 Follow-up encounter Bhargavi Navas APRN.CNM Work Phone: OB/Gynecology Start: 09-23-2024 End: 09-23-2024 ambulatory GENIE JACKSON Facility:[facility] Start: 09-08-2024 End: 09-08-2024 [facility] Genie Jackson MD Work Phone: [facility] [place] Comment on above: RUDOLPH (generalized anx iety disorder); Panic attack Start: 09-07-2024 End: 09-08-2024 Refill Genie Jackson MD Work Phone: [facility] [place] Comment on above: Refill Request Start: 08-31-2024 End: 08-31-2024 Patient encounter procedure i Tech 1 Mold Design Engineer Mfm Wstr Mob Maternal Medicine Comment on [...] depression; Trichomoniasis Start: 08-31-2024 End: 08-31-2024 ambulatory [facility] Start: 08-29-2024 End: 08-29-2024 ambulatory [facility] Facility:[facility] Start: 08-04-2024 End: 08-04-2024 [facility] Genie Jackson MD Work Phone: [facility] [place] Comment on above: RUDOLPH (generalized anx iety disorder) (Primary Dx); Panic attack; Chronic constipation Start: 08-02-2024 End: 08-02-2024 Telephone encounter Steffanie Neely RN Maternal Medic ine Comment on above: Back Order Clerk - O ther (PRAF) Patient Question Start: 08-01-2024 End: 10-01-2024 Follow-up encounter Elayne Severino FAMILY LAW ATTORNEY.SHOE REPAIR SUPERVISOR Work Phone: OB/Gynecology Start: 08-01-2024 End: 08-01-2024 [facility] Facility:[facility] Start: 08-01-2024 End: 08-01-2024 Patient encounter procedure Elayne Severino FAMILY LAW ATTORNEY.SHOE REPAIR SUPERVISOR Work Phone: OB/Gynecology Comment on above: Encounter for superv ision of normal intrauterine in multigravida, antepartum (Primary Dx); with uncertain dates, antepartum; History of hemorrhage; Screen for STD (sexually transmitted disease); 8 weeks gestation of ; Hx of preeclampsia, prior , currently ; Hypothyroidism, unspecified type; BMI 38.0-38.9,adult Start: 07-25-2024 End: 08-02-2024 Telephone encounter Elayne Severino FAMILY LAW ATTORNEY.SHOE REPAIR SUPERVISOR Work Phone: OB/Gynecology Comment on above: Future Appointment Start: 07-22-2024 End: 07-22-2024 Telephone encounter Genie Jackson MD Work Phone: [facility] [place] Comment on above: Medication Problem Start: 07-20-2024 End: 07-20-2024 ambulatory GENIE JACKSON Facility:[facility] Start: 07-20-2024 End: 07-20-2024 Patient encounter procedure Roxanalacy Fry APRN.CNM Work Phone: OB/Gynecology Comment on above: Missed menses (Prima ry Dx); Nausea and vomiting during ; 6 weeks gestation of Start: 06-20-2024 End: 06-20-2024 Telephone encounter Ivelisse Ng APRN.CNP Work Phone: [facility] [place] Comment on above: patient medication q uestion Start: 06-15-2024 End: 06-15-2024 ambulatory Ivelisse Ng APRN.CNP Work Phone: [facility] [place] Comment on above: Anxiety with depress ion (Primary Dx) Start: 06-15-2024 End: 06-15-2024 Telemedicine consultation with patient Ivelisse Ng APRN.CNP Work Phone: [facility] [place] Start: 05-13-2024 End: 05-13-2024 Office outpatient visit 25 minutes Terrell Cloud APRN.CIERRA Work Phone: [facility] [place] Comment on above: Tension headache (Pr imary Dx) Start: 05-13-2024 End: 05-13-2024 ambulatory TERRELL CLOUD Facility:[facility] Start: 05-13-2024 End: 05-13-2024 Patient encounter procedure Elayne Severino APRN.CIERRA Work Phone: OB/Gynecology Comment on above: Encounter for precon ception consultation (Primary Dx) Start: 04-14-2024 End: 04-14-2024 ambulatory GENIE JACKSON Facility:[facility] Start: 04-14-2024 End: 04-14-2024 Office outpatient visit 15 minutes Kenneth Mckeon APRN.CNP Work Phone: [facility] Comment on above: Sore throat (Primary Dx); Viral illness Start: 03-22-2024 End: 03-22-2024 Refill Genie Jackson MD Work Phone: [facility] [place] Comment on above: Refill Request Start: 02-19-2024 End: 02-19-2024 Refill Ivelisse gN APRN.CNP Work Phone: [facility] [place] Comment on above: Refill Request Start: 01-22-2024 End: 01-22-2024 Patient encounter procedure Ivelisse Ng FAMILY LAW ATTORNEY.SHOE REPAIR SUPERVISOR Work Phone: [facility] [place] Comment on above: Wellness examination (Primary Dx); Anxiety with depression; Chronic constipation; Hypothyroidism, unspecified type; Gastroesophageal reflux disease, unspecified whether esophagitis present; Encounter for contraceptive management, unspecified type; Screening for depression; Encounter for screening examination for other mental health and behavioral disorders Start: 01-20-2024 End: 01-20-2024 Refill Ivelisse Ng FAMILY LAW ATTORNEY.SHOE REPAIR SUPERVISOR Work Phone: [facility] [place] Comment on above: Refill Request Start: 01-18-2024 End: 01-21-2024 Refill Ivelisse Ng FAMILY LAW ATTORNEY.SHOE REPAIR SUPERVISOR Work Phone: [facility] [place] Comment on above: Refill Request Start: 01-14-2024 End: 01-15-2024 Telephone encounter Elayne Severino APRN.SHOE REPAIR SUPERVISOR Work Phone: OB/Gynecology Comment on above: Appointment Start: 12-19-2023 End: 12-21-2023 Refill Ivelisse Ng FAMILY LAW ATTORNEY.SHOE REPAIR SUPERVISOR Work Phone: [facility] Comment on above: Refill Request Start: 12-17-2023 Refill Ivelisse Ng APRN.SHOE REPAIR SUPERVISOR Work Phone: [facility] [place] Comment on above: Refill Request Start: 11-24-2023 End: 11-24-2023 ambulatory Elaynemee Severino FAMILY LAW ATTORNEY.SHOE REPAIR SUPERVISOR Work Phone: OB/Gynecology Comment on above: Adenomyosis (Primary Dx) Start: 11-24-2023 End: 11-24-2023 Telemedicine consultation with patient Elayne Severino FAMILY LAW ATTORNEY.SHOE REPAIR SUPERVISOR Work Phone: OB/Gynecology Start: 11-20-2023 Telephone encounter Elayne hurtado FAMILY LAW ATTORNEY.CIERRA Work Phone: OB/Gynecology Comment on above: Results (Pelvic US) Start: 11-19-2023 End: 11-19-2023 ambulatory Whi Mob OB/Gynecology Start: 11-19-2023 End: 11-19-2023 Patient encounter procedure i Tech 1 Mold Design Engineer Wstr Mob OB/Gynecology Start: 11-15-2023 Refill Terrell Husam FAMILY LAW ATTORNEY.SHOE REPAIR SUPERVISOR Work Phone: [facility] [place] Comment on above: Refill Request Start: 11-12-2023 Refill Genie hernandez MD Work Phone: [facility] [place] Comment on above: Refill Request lab results Start: 11-10-2023 End: 11-10-2023 Patient encounter procedure Elayne Severino FAMILY LAW ATTORNEY.SHOE REPAIR SUPERVISOR Work Phone: OB/Gynecology Comment on above: Encounter for gyneco logical examination (general) (routine) without abnormal findings (Primary Dx); Screening for cervical cancer; Encounter for screening for human papillomavirus (HPV) Start: 11-10-2023 End: 11-10-2023 Patient encounter status Elaynemee Severino APRN.SHOE REPAIR SUPERVISOR Work Phone: [facility] Start: 11-04-2023 End: 11-04-2023 ambulatory Rohan Yoon MD Work Phone: Gynecology Comment on above: Irregular menses (Pr imary Dx); Acquired hypothyroidism; Class II obesity; Menorrhagia with irregular cycle; Dysmenorrhea Start: 11-04-2023 End: 11-04-2023 Telemedicine consultation with patient Rohan Yoon MD Work Phone: Gynecology Start: 10-07-2023 End: 10-07-2023 Patient encounter procedure Bhargavi Monique FAMILY LAW ATTORNEY.SHOE REPAIR SUPERVISOR Work Phone: [facility] Comment on above: Nipple pain (Primary Dx); Ear pain, bilateral Start: 07-23-2023 Refill Terrell Husam FAMILY LAW ATTORNEY.SHOE REPAIR SUPERVISOR Work Phone: [facility] [place] Comment on above: Refill Request Start: 07-23-2023 Refill Terrell Husam FAMILY LAW ATTORNEY.SHOE REPAIR SUPERVISOR Work Phone: [facility] [place] Comment on above: Refill Request Start: 07-06-2023 End: 07-06-2023 Emergency department patient visit TERRELL AHMADI MD Facility:[facility] Start: 07-06-2023 End: 07-06-2023 Emergency department patient visit TERRELL AHMADI MD [facility] Start: 07-02-2023 End: 07-02-2023 Emergency department patient visit [facility] Work Phone: Start: 07-02-2023 End: 07-02-2023 Patient encounter procedure Bhargavi Monique FAMILY LAW ATTORNEY.SHOE REPAIR SUPERVISOR Work Phone: [facility] Comment on above: Visual disturbance ( Primary Dx); Dizziness; Headache, unspecified headache type Start: 06-18-2023 Telephone encounter Ivelisse Nader stevens FAMILY LAW ATTORNEY.SHOE REPAIR SUPERVISOR Work Phone: Family [facility] [place] Comment on above: Results (Labs ) Start: 06-17-2023 Telephone encounter Genie greer MD Work Phone: [facility] [place] Comment on above: Orders; Irregular Me nstrual Cycle Start: 06-16-2023 Telephone encounter [facility] Comment on above: Patient Request Start: 06-12-2023 Telephone encounter Genie greer MD Work Phone: [facility] [place] Comment on above: Patient Question Start: 04-02-2023 Refill Terrell Cloud FAMILY LAW ATTORNEY.SHOE REPAIR SUPERVISOR Work Phone: [facility] [place] Comment on above: Refill Request Start: 03-26-2023 Refill Genie hernandez MD Work Phone: Family [facility] [place] Comment on above: Refill Request Start: 01-03-2023 Refill Terrell Husam FAMILY LAW ATTORNEY.SHOE REPAIR SUPERVISOR Work Phone: Family [facility] [place] Comment on above: Refill Request; Refi ll Request Start: 10-12-2022 End: 10-12-2022 Emergency department patient visit Onofre Everett [facility] Emergency Start: 10-01-2022 Telephone encounter Genie greer MD Work Phone: [facility] Comment on above: Patient Question Start: 09-30-2022 End: 09-30-2022 Patient encounter procedure Ruth Vallejo PA-C Work Phone: [facility] Comment on above: Acute UTI (Primary D x) Start: 09-06-2022 End: 09-06-2022 [facility] Start: 09-06-2022 End: 09-06-2022 Patient encounter procedure Marjorie Sanchez APRN.SHOE REPAIR SUPERVISOR Work Phone: [facility] Comment on above: Confusion (Primary D x) Start: 08-26-2022 End: 08-26-2022 Office outpatient visit 25 minutes Terrell Cloud APRN.SHOE REPAIR SUPERVISOR Work Phone: [facility] Comment on above: Hypokalemia (Primary Dx); Nausea and vomiting, unspecified vomiting type; Hospital discharge follow-up; Paresthesia; Hand pain, left Start: 08-22-2022 End: 08-22-2022 Emergency department patient visit Trixie Beard [facility] Emergency 14 Start: 07-29-2022 Refill Jolly Aguilar PA-C Work Phone: Gastroenterology Comment on above: Refill Request Start: 07-23-2022 Refill Terrell Cloud APRN.SHOE REPAIR SUPERVISOR Work Phone: [facility] Comment on above: Refill Request Start: 07-23-2022 Refill Terrell Cloud APRN.SHOE REPAIR SUPERVISOR Work Phone: [facility] Comment on above: Refill Request Start: 06-30-2022 End: 06-30-2022 [facility] Start: 05-08-2022 Refill Cori Ramesh APR N.SHOE REPAIR SUPERVISOR Work Phone: Gastroenterology Comment on above: Refill Request Start: 03-07-2022 End: 03-07-2022 [facility] Genie Jackson MD Work Phone: [facility] Comment on above: Recurrent major depr essive disorder, remission status unspecified (HCC) Start: 03-02-2022 End: 03-02-2022 Emergency department patient visit [facility] Start: 02-15-2022 Refill Cori Ramesh APR N.SHOE REPAIR SUPERVISOR Work Phone: Gastroenterology Comment on above: Refill Request Start: 02-12-2022 End: 02-12-2022 Patient encounter procedure Michelle Hayes APRN.SHOE REPAIR SUPERVISOR Work Phone: [facility] Comment on above: Frontal sinus pain ( Primary Dx); Left ear pain Start: 02-05-2022 End: 02-05-2022 Patient encounter procedure Ruth Reyes TIDAL PETROLEUMpan PA-C Work Phone: [facility] Comment on above: Acute otitis media, left (Primary Dx) Start: 02-02-2022 End: 02-02-2022 Patient encounter procedure Ruth Reyes TIDAL PETROLEUMpan PA-C Work Phone: [facility] Comment on above: Viral URI with cough (Primary Dx); Bacterial conjunctivitis Start: 12-24-2021 End: 12-24-2021 Subsequent hospital visit by physician Xr [facility] Work Phone: Radiology Comment on above: Left wrist pain [M25 .532] Start: 12-24-2021 End: 12-24-2021 Patient encounter procedure Ruth Reyes Athy PA-C Work Phone: [facility] Comment on above: Left wrist pain (Merlene azucena Dx) Start: 12-17-2021 Refill Cori Ramesh APR N.SHOE REPAIR SUPERVISOR Work Phone: Gastroenterology Comment on above: Refill Request Start: 12-16-2021 Refill Cori Ramesh APR N.SHOE REPAIR SUPERVISOR Work Phone: Gastroenterology Comment on above: Refill Request Start: 12-04-2021 Telephone encounter Genie greer MD Work Phone: [facility] Comment on above: Medication Question Start: 11-26-2021 End: 11-26-2021 Distance Health Genie Jackson MD Work Phone: [facility] [place] Comment on above: Recurrent major depr essive disorder, remission status unspecified (HCC) (Primary Dx) Refill Request Start: 09-25-2021 End: 09-25-2021 Telemedicine consultation with patient Cori Ramesh SHOE REPAIR SUPERVISOR Work Phone: [facility] Start: 09-25-2021 End: 09-25-2021 ambulatory Terrell Cloud APRN.SHOE REPAIR SUPERVISOR Work Phone: [facility] [place] Comment on above: Question Burping (Primary Dx) ; Gastroesophageal reflux disease, unspecified whether esophagitis present; Early satiety; GERD without esophagitis Start: 09-19-2021 Telephone encounter Genie greer MD Work Phone: [facility] [place] Comment on above: Referral Request Start: 09-17-2021 End: 09-17-2021 Patient encounter procedure Terrell Cloud APRN.SHOE REPAIR SUPERVISOR Work Phone: [facility] [place] Comment on above: Tonsil stone (Primar y Dx); Hypothyroidism, unspecified type Start: 08-23-2021 ambulatory Genie hernandez MD Work Phone: [facility] [place] Comment on above: Trying a medication again Start: 08-09-2021 Refill Genie hernandez MD Work Phone: [facility] [place] Comment on above: Refill Request Start: 10-14-2017 End: 10-14-2017 Ambulatory [facility] Start: 05-17-2017 End: 05-17-2017 Emergency department patient visit [facility] Facility:[facility] Start: 07-23-2016 End: 10-12-2017 Physical examination Bhargavi Monique APRN.SHOE REPAIR SUPERVISOR Work Phone: [facility] Procedures Date Procedure Procedure Detail Performing [...] after 1st trimest 1/1st gestation Elayne Maycol FAMILY LAW ATTORNEY.SHOE REPAIR SUPERVISOR Work Phone: Start: 10-05-2024 Us preg uterus after 1st trimest 1/ gestation Emmanuel Hess MD Work Phone: Start: 08-31-2024 Us preg uterus after 1st trimest 1/1st gestation Elayne Keaau FAMILY LAW ATTORNEY.SHOE REPAIR SUPERVISOR Work Phone: Start: 08-29-2024 Antibody screen ELAYNE HILLMAN Comment on above: Order Comment: Speci men Type: BLOOD SPECIMENOrdering Facility: [facility] Address: [address] [place] [address] Performed By: #### T SPN ####CC [facility] BLOOD BANKCLIA [id number] [address] STATES OF ART Start: 08-01-2024 Us uterus l imited 1/> fetuses Elayne Keaau FAMILY LAW ATTORNEY.SHOE REPAIR SUPERVISOR Work Phone: Start: 07-20-2024 UA DIP,URINE HCG (POC) Roxana Fry FAMILY LAW ATTORNEY.CNM Work Phone: Start: 04-14-2024 STREP A MOLECULAR (POC) Bhargavi Monique FAMILY LAW ATTORNEY.SHOE REPAIR SUPERVISOR Work Phone: Start: 01-22-2024 Adult depression scr eening assessment Ivelisse Ng FAMILY LAW ATTORNEY.SHOE REPAIR SUPERVISOR Work Phone: Start: 11-19-2023 Us pelvic nonobstetr [...] DTaP,Tdap,Td Vaccine (8 - Td or Tdap) [facility] Start: 11-09-2026 Screening for malignant neoplasm of cervix Cervical Cancer Screening [facility] Start: 11-29-2025 Annual PCP Team Chronic Disease Visit Annual PCP Team Chronic Disease Visit [facility] Start: 09-08-2025 Annual PCP Team Chronic Disease Visit Annual PCP Team Chronic Disease Visit [facility] Start: 08-04-2025 Annual PCP Team Chronic Disease Visit Annual PCP Team Chronic Disease Visit [facility] Start: 06-15-2025 Annual PCP Team Chronic Disease Visit Annual PCP Team Chronic Disease Visit [facility] Start: 05-13-2025 Annual PCP Team Chronic Disease Visit Annual PCP Team Chronic Disease Visit [facility] Start: 02-20-2025 End: 02-20-2025 Patient encounter procedure 02/20/2025 10:00 AM EDT Office Visit Endocrinology [address] [place] [id number] Mana Oseguera MD [address] [place] [id number] Hypothyroidism, unspecified type [E03.9] Endocrinology Comment on above: Hypothyroidism, unsp ecified type [E03.9] Start: 02-07-2025 End: 02-07-2025 Patient encounter procedure 02/07/2025 11:20 AM EDT Routine Office Visit OB/Gynecology [address] [place] [address] Dhara Sanchez MD [address] [place] [address] OB OB/Gynecology Comment on above: OB Start: 01-29-2025 End: 04-30-2025 CBC W Auto Differential panel - Blood COMPLETE BLOOD COUNT AND DIFFERENTIAL Lab Routine Anemia complicating , third trimester (HCC) Expected: 01/29/2025, Expires: 04/30/2025 [facility] Work Phone: Comment on above: Expected: 01/29/2025 , Expires: 04/30/2025 Start: 01-24-2025 End: 01-24-2025 Patient encounter procedure Endocrinology Comment on above: Hypothyroidism, unsp ecified type [E03.9] Supervision of other high risk pregnancies, second trimester (HCC) [O09.892] OB Start: 01-21-2025 Annual PCP Team Chronic Disease Visit Annual PCP Team Chronic Disease Visit [facility] Start: 01-21-2025 Anxiety Screening Anxiety Screening [facility] Start: 01-21-2025 Depression Screening Depression Scre ening [facility] Start: 01-19-2025 End: 01-19-2025 Patient encounter procedure 01/19/2025 11:00 AM EDT Routine Office Visit OB/Gynecology [address] [place] [address] NON-STRESS TEST ONLY OB/Gynecology Comment on above: NON-STRESS HAI T ONLY Start: 01-14-2025 RSV Vaccine (1 - Ris k 1-dose series) RSV Vaccine (1 - Risk 1-dose series) [facility] Start: 01-12-2025 End: 01-12-2025 Patient encounter procedure 01/12/2025 11:10 AM EDT Routine Office Visit OB/Gynecology [address] [place], [place] [id number] Ximena Hartman MD [address] [place] [address] OB OB/Gynecology Comment on above: OB Start: 01-02-2025 Influenza vaccination [facility] Start: 12-28-2024 End: 03-29-2025 Thyrotropin [Units/volume] in Serum or Plasma [facility] Work Phone: Comment on above: Expected: 12/28/2024 , Expires: 03/29/2025 Start: 12-28-2024 End: 12-28-2024 Patient encounter procedure Maternal Medicine Comment on above: 28 weeks US US/OB Start: 12-26-2024 End: 12-26-2024 Patient encounter procedure Endocrinology Comment on above: Supervision of other high risk pregnancies, second trimester (HCC) [O09.892] Hypothyroidism, unsp ecified type [E03.9] Start: 12-23-2024 [facility] Start: 12-23-2024 Nonstress test [facility] Start: 12-23-2024 Obstetric monitoring [facility] Start: 12-23-2024 Vital signs measurements [facility] Start: 12-23-2024 [facility] Start: 12-23-2024 Bacteria identified in Urine by Culture Urine Culture [facility] Start: 12-02-2024 End: 12-02-2024 ambulatory [facility] Start: 11-29-2024 End: 02-28-2025 ANEMIA REFLEX PANEL ANEMIA REFLEX PANEL Lab Routine Expected: 11/29/2024, Expires: 02/28/2025 [facility] Comment on above: Expected: 11/29/2024 , Expires: 02/28/2025 Start: 11-29-2024 End: 11-29-2025 GESTATIONAL GLUCOSE SCREEN, 1-HOUR, 50 GRAM, NON-FASTING GESTATIONAL GLUCOSE SCREEN, 1-HOUR, 50 GRAM, NON-FASTING Lab Routine Screening for diabetes mellitus Expected: 11/29/2024, Expires: 11/29/2025 [facility] Work Phone: Comment on above: Expected: 11/29/2024 , Expires: 11/29/2025 Start: 11-29-2024 End: 11-29-2025 SYPHILIS TREPONEMAL W/REFLEX SYPHILIS TREPONEMAL W/REFLEX Lab Routine Expected: 11/29/2024, Expires: 11/29/2025 [facility] Comment on above: Expected: 11/29/2024 , Expires: 11/29/2025 Start: 11-29-2024 End: 11-29-2024 Patient encounter procedure 11/29/2024 10:15 AM EDT Routine Office Visit OB/Gynecology [address] [place] [address] Elayne Severino APRN.SHOE REPAIR SUPERVISOR [address] [place] [address] OB-Needs to schedule 28 week ultrasound - moved from [facility] per RR OB/Gynecology Comment on above: OB-Needs to schedule 28 week ultrasound - moved from [facility] per RR Start: 11-29-2024 End: 11-29-2024 ambulatory 11/29/2024 8:20 AM EDT [facility] [address] [place] [address] Olive Rendon FAMILY LAW ATTORNEY.SHOE REPAIR SUPERVISOR [address] [place] [address] discuss increasing depression medication (40min per CH) [facility] [place] Comment on above: discuss increasing d epression medication (40min per CH) Start: 11-23-2024 End: 11-23-2024 Patient encounter procedure 11/23/2024 10:40 AM EDT Routine Office Visit OB/Gynecology [address] [place] [address] Joyce Restrepo MD [address] [place] [address] OB-Needs to schedule 28 week ultrasound OB/Gynecology Comment on above: OB-Needs to schedule 28 week ultrasound Start: 11-22-2024 End: 11-22-2024 Patient encounter procedure 11/22/2024 8:00 AM EDT Office Visit Endocrinology [address] [place] [address] Mana Oseguera MD [address] [place] [address] Supervision of other high risk pregnancies, second trimester (HCC) [O09.892] Endocrinology Comment on above: Supervision of other high risk pregnancies, second trimester (HCC) [O09.892] Start: 11-20-2024 Patient discharge [facility] Start: 11-19-2024 Nonstress test [facility] Start: 11-19-2024 Obstetric monitoring [facility] Start: 11-19-2024 Vital signs measurements [facility] Start: 11-19-2024 [facility] Start: 10-26-2024 End: 10-26-2024 Patient encounter procedure Maternal Medicine Comment on above: Anatomy Scan OB Routine Start: 10-05-2024 End: 10-05-2024 Patient encounter procedure 10/05/2024 11:00 AM EDT Routine Office Visit Maternal Medicine [facility] [address] [place] [address] growth Maternal Medicine [facility] Comment on above: growth Start: 09-29-2024 End: 09-29-2024 Patient encounter procedure 09/29/2024 11:10 AM EDT Routine Office Visit OB/Gynecology [address] [place] [address] Emmanuel Hess MD [address] [place] [address] OB Routine OB/Gynecology Comment on above: OB Routine Start: 08-31-2024 End: 08-31-2024 Patient encounter procedure Maternal Medicine Comment on above: Nuchal OB Start: 08-08-2024 End: 08-08-2024 ambulatory 08/08/2024 1:00 PM EDT Results Only [facility] [address] [place] [address] [facility] Start: 08-04-2024 End: 08-04-2024 ambulatory 08/04/2024 11:20 AM EDT [facility] [address] [place] [address] Genie Jackson MD [address] [place] [address] Lowering my buspar [facility] Comment on above: Lowering my buspar Start: 08-03-2024 End: 08-03-2024 ambulatory 08/03/2024 1:00 PM EDT Results Only Jennifer [facility] [address] [place] [address] Jennifer [facility] Start: 08-01-2024 End: 10-31-2024 ANEMIA REFLEX PANEL ANEMIA REFLEX PANEL Lab Routine History of hemorrhage 8 weeks gestation of Expected: 08/01/2024, Expires: 10/31/2024 [facility] Work Phone: Comment on above: Expected: 08/01/2024 , Expires: 10/31/2024 Start: 08-01-2024 End: 10-31-2024 Comprehensive metabolic 2000 panel - Serum or Plasma COMPREHENSIVE METABOLIC PANEL Lab Routine 8 weeks gestation of Hx of preeclampsia, prior , currently Expected: 08/01/2024, Expires: 10/31/2024 [facility] Comment on above: Expected: 08/01/2024 , Expires: 10/31/2024 Start: 08-01-2024 End: 10-31-2024 Hemoglobin A1c in Blood HEMOGLOBIN A1C Lab Routine History of hemorrhage 8 weeks gestation of Expected: 08/01/2024, Expires: 10/31/2024 [facility] Comment on above: Expected: 08/01/2024 , Expires: 10/31/2024 Start: 08-01-2024 End: 10-31-2024 Hepatitis B virus surface Ag [Presence] in Serum HEPATITIS B SURFACE ANTIGEN Lab Routine History of hemorrhage Screen for STD (sexually transmitted disease) 8 weeks gestation of Expected: 08/01/2024, Expires: 10/31/2024 [facility] Comment on above: Expected: 08/01/2024 , Expires: 10/31/2024 Start: 08-01-2024 End: 10-31-2024 Hepatitis C virus Ab [Presence] in Serum HEPATITIS C ANTIBODY IA WITH CONFIRMATION Lab Routine History of hemorrhage Screen for STD (sexually transmitted disease) 8 weeks gestation of Expected: 08/01/2024, Expires: 10/31/2024 [facility] Comment on above: Expected: 08/01/2024 , Expires: 10/31/2024 Start: 08-01-2024 End: 10-31-2024 HIV 1+2 Ab [Presence] in Serum or Plasma by Immunoassay HIV 1/2 COMBO WITH REFLEX TO DIFFERENTIATION Lab Routine History of hemorrhage Screen for STD (sexually transmitted disease) 8 weeks gestation of Expected: 08/01/2024, Expires: 10/31/2024 [facility] Comment on above: Expected: 08/01/2024 , Expires: 10/31/2024 Start: 08-01-2024 End: 08-01-2025 OBSTETRIC ULTRASOUND WHI OBSTETRIC ULTRASOUND WHI Anc Imaging Routine 8 weeks gestation of Expected: 08/01/2024, Expires: 08/01/2025 [facility] Comment on above: Expected: 08/01/2024 , Expires: 08/01/2025 Start: 08-01-2024 End: 10-31-2024 Protein/Creatinine [Mass Ratio] in Urine PROTEIN / CREATININE RATIO Lab Routine 8 weeks gestation of Hx of preeclampsia, prior , currently Expected: 08/01/2024, Expires: 10/31/2024 [facility] Comment on above: Expected: 08/01/2024 , Expires: 10/31/2024 Start: 08-01-2024 End: 10-31-2024 RUBELLA IGG ANTIBODY RUBELLA IGG ANTIBODY Lab Routine History of hemorrhage 8 weeks gestation of Expected: 08/01/2024, Expires: 10/31/2024 [facility] Comment on above: Expected: 08/01/2024 , Expires: 10/31/2024 Start: 08-01-2024 End: 10-31-2024 SYPHILIS TREPONEMAL W/REFLEX SYPHILIS TREPONEMAL W/REFLEX Lab Routine History of hemorrhage Screen for STD (sexually transmitted disease) 8 weeks gestation of Expected: 08/01/2024, Expires: 10/31/2024 [facility] Comment on above: Expected: 08/01/2024 , Expires: 10/31/2024 Start: 08-01-2024 End: 10-31-2024 Thyrotropin [Units/volume] in Serum or Plasma THYROID STIMULATING HORMONE Lab Routine 8 weeks gestation of Hypothyroidism, unspecified type Expected: 08/01/2024, Expires: 10/31/2024 [facility] Comment on above: Expected: 08/01/2024 , Expires: 10/31/2024 Start: 08-01-2024 End: 10-31-2024 TYPE + SCREEN TYPE + SCREEN Blood Bank Routine History of hemorrhage 8 weeks gestation of Expected: 08/01/2024, Expires: 10/31/2024 [facility] Comment on above: Expected: 08/01/2024 , Expires: 10/31/2024 Start: 08-01-2024 End: 08-01-2024 Patient encounter procedure 08/01/2024 8:15 AM EDT Initial Office Visit OB/Gynecology [address] [place] [address] Elayne Severino APRN.SHOE REPAIR SUPERVISOR [address] [place] [address] NOB LMP 2 OB/Gynecology Comment on above: NOB LMP 2 Start: 07-22-2024 End: 07-22-2024 ambulatory 07/22/2024 4:00 PM EDT [facility] [address] [facility] [place] [address] Genie Jackson MD [address] [facility] [place] [address] Medication options for Linzess during pregancy. [facility] [place] Comment on above: Medication options f or Linzess during pregancy. Start: 06-27-2024 End: 06-27-2024 ambulatory 06/27/2024 11:00 AM EST [facility] [address] [facility] [place] [address] Ivelisse Ng APRN.SHOE REPAIR SUPERVISOR [address] [facility] [place] [address] 2 week f/u medication change Family Medicine [place] Comment on above: 2 week f/u medicatio n change Start: 01-22-2024 End: 01-22-2024 Patient encounter procedure 01/22/2024 10:00 AM EDT Office Visit Family Medicine [facility] [address] [place] [address] Ivelisse Ng, FAMILY LAW ATTORNEY.SHOE REPAIR SUPERVISOR [address] [place] [address] medication refills needed/Wellness visit needed Family Medicine [place] Comment on above: medication refills n eeded/Wellness visit needed Start: 01-03-2024 Covid-19 Vaccine ( season) Covid-19 Vaccine ( season) [facility] Start: 01-03-2024 Covid-19 Vaccine () Covid-19 Vaccine () [facility] Start: 01-03-2024 Influenza vaccination [facility] Start: 12-24-2023 End: 12-24-2023 Patient encounter procedure 12/24/2023 10:40 AM EDT Office Visit Family Medicine [place] [address] [place] [address] Ivelisse Ng, FAMILY LAW ATTORNEY.SHOE REPAIR SUPERVISOR [address] [place] [address] yearly [facility] [place] Comment on above: yearly Start: 11-24-2023 End: 11-24-2023 ambulatory 11/24/2023 4:30 PM EDT [facility] OB/Gynecology [address] [place] [address] Elayne Severino, FAMILY LAW ATTORNEY.SHOE REPAIR SUPERVISOR [address] [place] [address] Discuss ultrasound results OB/Gynecology Comment on above: Discuss ultrasound r esults Start: 11-19-2023 End: 11-19-2023 ambulatory 11/19/2023 1:30 PM EDT Procedure OB/Gynecology [address] [place] [address] Irregular menses [N92.6] OB/Gynecology Comment on above: Irregular menses [N9 2.6] Start: 11-04-2023 End: 02-03-2024 DHEA-S BLD DHEA-S BLD Lab Routine Irregular menses Expected: 11/04/2023, Expires: 02/03/2024 [facility] Comment on above: Expected: 11/04/2023 , Expires: 02/03/2024 Start: 11-04-2023 End: 02-03-2024 Estradiol (E2) [Mass/volume] in Serum or Plasma ESTRADIOL-17B BLD Lab Routine Irregular menses Expected: 11/04/2023, Expires: 02/03/2024 [facility] Comment on above: Expected: 11/04/2023 , Expires: 02/03/2024 Start: 11-04-2023 End: 02-03-2024 Follitropin [Units/volume] in Serum or Plasma FOLLICLE STIMULATING HORMONE Lab Routine Irregular menses Expected: 11/04/2023, Expires: 02/03/2024 [facility] Comment on above: Expected: 11/04/2023 , Expires: 02/03/2024 Start: 11-04-2023 End: 02-03-2024 Hemoglobin A1c in Blood HEMOGLOBIN A1C Lab Routine Irregular menses Class II obesity Expected: 11/04/2023, Expires: 02/03/2024 [facility] Comment on above: Expected: 11/04/2023 , Expires: 02/03/2024 Start: 11-04-2023 End: 02-03-2024 Lutropin [Units/volume] in Serum or Plasma LUTEINIZING HORMONE Lab Routine Irregular menses Expected: 11/04/2023, Expires: 02/03/2024 [facility] Comment on above: Expected: 11/04/2023 , Expires: 02/03/2024 Start: 11-04-2023 End: 02-03-2024 Progesterone [Mass/volume] in Serum or Plasma PROGESTERONE Lab Routine Irregular menses Expected: 11/04/2023, Expires: 02/03/2024 [facility] Comment on above: Expected: 11/04/2023 , Expires: 02/03/2024 Start: 11-04-2023 End: 02-03-2024 Thyrotropin [Units/volume] in Serum or Plasma THYROID STIMULATING HORMONE Lab Routine Irregular menses Acquired hypothyroidism Class II obesity Expected: 11/04/2023, Expires: 02/03/2024 [facility] Work Phone: Comment on above: Expected: 11/04/2023 , Expires: 02/03/2024 Start: 11-04-2023 End: 11-03-2024 US Pelvis PELVIC US [facility] Anc Imaging Routine Irregular menses Class II obesity Menorrhagia with irregular cycle Dysmenorrhea Expected: 11/04/2023, Expires: 11/03/2024 [facility] Comment on above: Expected: 11/04/2023 , Expires: 11/03/2024 Start: 08-27-2023 ANNUAL PCP TEAM CHRONIC DISEASE VISIT ANNUAL PCP TEAM CHRONIC DISEASE VISIT [facility] Start: 07-02-2023 [facility] Start: 06-17-2023 End: 09-16-2023 CBC W Auto Differential panel - Blood [facility] Work Phone: Comment on above: Expected: 06/17/2023 , Expires: 09/16/2023 Start: 06-17-2023 End: 09-16-2023 Choriogonadotropin.bet a subunit [Units/volume] in Serum or Plasma [facility] Work Phone: Comment on above: Expected: 06/17/2023 , Expires: 09/16/2023 Start: 06-17-2023 End: 09-16-2023 Comprehensive metabolic 2000 panel - Serum or Plasma [facility] Work Phone: Comment on above: Expected: 06/17/2023 , Expires: 09/16/2023 Start: 06-17-2023 End: 09-16-2023 Ferritin [Mass/volume] in Serum or Plasma [facility] Work Phone: Comment on above: Expected: 06/17/2023 , Expires: 09/16/2023 Start: 06-17-2023 End: 09-16-2023 Iron and Iron binding capacity panel - Serum or Plasma [facility] Work Phone: Comment on above: Expected: 06/17/2023 , Expires: 09/16/2023 Start: 05-04-2023 Behavioral Health Screening Behavioral Health Screening [facility] Start: 05-04-2023 Depression Assessment Depression Ass [facility] Start: 05-04-2023 zzBehavioral Health Screening zzBehavioral Health Screening [facility] Start: 03-07-2023 ANNUAL PCP TEAM CHRONIC DISEASE VISIT ANNUAL PCP TEAM CHRONIC DISEASE VISIT [facility] Start: 02-12-2023 ANNUAL PCP TEAM CHRONIC DISEASE VISIT ANNUAL PCP TEAM CHRONIC DISEASE VISIT [facility] Start: 01-02-2023 Covid-19 Vaccine () Covid-19 Vaccine () [facility] Start: 01-02-2023 Influenza vaccination [facility] Start: 12-21-2022 PAP TESTING PAP TESTING [facility] Start: 12-21-2022 Screening for malignant neoplasm of cervix [facility] Start: 11-26-2022 ANNUAL PCP TEAM CHRONIC DISEASE VISIT ANNUAL PCP TEAM CHRONIC DISEASE VISIT [facility] Start: 09-17-2022 ANNUAL PCP TEAM CHRONIC DISEASE VISIT ANNUAL PCP TEAM CHRONIC DISEASE VISIT [facility] Start: 08-26-2022 End: 10-26-2022 POTASSIUM BLD POTASSIUM BLD Lab Routine Hypokalemia Expected: 08/26/2022, Expires: 10/26/2022 [facility] Work Phone: Comment on above: Expected: 08/26/2022 , Expires: 10/26/2022 Start: 06-07-2022 ANNUAL PCP TEAM CHRONIC DISEASE VISIT ANNUAL PCP TEAM CHRONIC DISEASE VISIT [facility] Start: 05-04-2022 DEPRESSION ASSESSMENT DEPRESSION ASS ESSMENT [facility] Start: 04-05-2022 Adult depression screening assessment DEPRESSION SCREENING [facility] Start: 02-02-2022 End: 02-16-2022 Influenza virus A and B RNA and SARS-CoV-2 (COVID-19) N gene panel - Respiratory specimen by RODERICK with probe detection COVID WITH FLUA+B, ROUTINE Microbiology Routine Viral URI with cough Expected: 02/02/2022, Expires: 02/16/2022 [facility] Work Phone: Comment on above: Expected: 02/02/2022 , Expires: 02/16/2022 Start: 01-02-2022 Influenza vaccination C [facility] Start: 10-01-2021 End: 12-01-2021 Pyridoxine [Mass/volume] in Serum or Plasma VITAMIN B6/PYRIDOXIN Lab Routine Fatigue, unspecified type Expected: 10/01/2021, Expires: 12/01/2021 [facility] Work Phone: Comment on above: Expected: 10/01/2021 , Expires: 12/01/2021 Start: 10-01-2021 End: 12-01-2021 VITAMIN B12 BLOOD VITAMIN B12 BLOOD Lab Routine Fatigue, unspecified type Expected: 10/01/2021, Expires: 12/01/2021 [facility] Work Phone: Comment on above: Expected: 10/01/2021 , Expires: 12/01/2021 Start: 10-01-2021 End: 12-01-2021 VITAMIN D 25 HYDROXY VITAMIN D 25 HYDROXY Lab Routine Fatigue, unspecified type Expected: 10/01/2021, Expires: 12/01/2021 [facility] Work Phone: Comment on above: Expected: 10/01/2021 , Expires: 12/01/2021 Start: 07-25-2021 COVID-19 VACCINE (2 - Pfizer series) COVID-19 VACCINE (2 - Pfizer series) [facility] Start: 06-20-2021 COVID-19 VACCINE (2 - Pfizer 3-dose series) COVID-19 VACCINE (2 - Pfizer 3-dose series) [facility] Start: 06-20-2021 COVID-19 VACCINE (2 - Pfizer series) COVID-19 VACCINE (2 - Pfizer series) [facility] Start: 05-04-2021 DEPRESSION ASSESSMENT DEPRESSION ASS ESSMENT [facility] Start: 02-07-2019 Urine microalbumin profile [facility] Start: 2017 ONE PNEUMOVAX PRIOR TO AGE 65 ONE PNEUMOVAX PRIOR TO AGE 65 [facility] Start: 12-20-2016 CHLAMYDIA SCREENING () CHLAMYDIA SCREENING (18-24) [facility] Start: 12-20-2016 GC (GONORRHEA) SCREENING (18-24) GC (GONORRHEA) SCREENING (18-24) [facility] Start: 02-01-2016 Anxiety Screening Anxiety Screening [facility] Start: 02-01-2016 Depression Screening Depression Scre ening [facility] Start: 2014 Meningococcal B Vaccine: Consider Based On Risk (1 of 2 - Patient Seeks Protection) Meningococcal B Vaccine: Consider Based On Risk (1 of 2 - Patient Seeks Protection) [facility] Start: 02-01-2012 PEDS TO ADULT TRANSITION ANNUAL ASSESSMENT PEDS TO ADULT TRANSITION ANNUAL ASSESSMENT [facility] Start: 2010 PEDS TO ADULT TRANSITION INITIAL DISCUSSION PEDS TO ADULT TRANSITION INITIAL DISCUSSION [facility] Start: 02-01-2008 MENINGOCOCCAL B: Consider based on risk (1 of 2 - Risk Bexsero 2-dose series) MENINGOCOCCAL B: Consider based on risk (1 of 2 - Risk Bexsero 2-dose series) [facility] Start: 02-01-2004 PNEUMOCOCCAL (1 - PCV) PNEUMOCOCCAL (1 - PCV) [facility] Bacteria identified in Urine by Culture URINE CULTURE Microbiology Routine Acute UTI 09/30/2022 12:45 PM T [facility] Work Phone: Bacteria identified in Urine by Culture BACTERIAL CULTURE, URINE Microbiology Routine History of hemorrhage 8 weeks gestation of 08/01/2024 9:47 AM T [facility] Chlamydia trachomatis+Neisseria gonorrhoeae DNA [Presence] in Unspecified specimen by RODERICK with probe detection GONORRHEA/CHLAMYDIA NAAT Lab Routine History of hemorrhage Screen for STD (sexually transmitted disease) 8 weeks gestation of 08/01/2024 9:47 AM [facility] Chlamydia trachomatis+Neisseria gonorrhoeae DNA [Presence] in Unspecified specimen by RODERICK with probe detection GONORRHEA/CHLAMYDIA NAAT Lab Routine Supervision of other high risk pregnancies, second trimester (HCC) 16 weeks gestation of (HCC) Trichomoniasis Screen for STD (sexually transmitted disease) 09/29/2024 11:48 AM [facility] End: 08-27-2023 EMG(NEURO/NI) EMG(NEURO/NI) EMG Routine Paresthesia Hand pain, left 1 Occurrences starting 08/26/2022 until 08/27/2023 [facility] Work Phone: Comment on above: 1 Occurrences starti ng 08/26/2022 until 08/27/2023 End: 03-16-2025 nonstress test NON-STRESS TEST Procedures Routine Anemia during in third trimester ([facility]) Obesity in ([facility]) Supervision of high risk in third trimester ([facility]) 31 weeks gestation of ([facility]) 8 Occurrences starting 01/12/2025 until 03/16/2025 [facility] Work Phone: Comment on above: 8 Occurrences starti ng 01/12/2025 until 03/16/2025 End: 04-17-2025 OBSTETRIC ULTRASOUND WHI OBSTETRIC ULTRASOUND [facility]I Anc Imaging Routine Supervision of other high risk pregnancies, second trimester ([facility]) Hx of preeclampsia, prior , currently ([facility]) Obesity in ([facility]) Hypothyroidism, unspecified type Once per month for 6 Occurrences starting 09/29/2024 until 04/17/2025 [facility] Work Phone: Comment on above: Once per month for 6 Occurrences starting 09/29/2024 until 04/17/2025 PAP TEST PAP TEST Lab Yari fitzpatrick Encounter for gynecological examination (general) (routine) without abnormal findings Screening for cervical cancer Encounter for screening for human papillomavirus (HPV) 11/10/2023 3:58 PM EDT [facility] Work Phone: Patient Education [facility] Work Phone: Patient referral [facility] Work Phone: Protein [Mass/time] in 24 hour Urine PROTEIN, 24 HOUR URINE Lab Routine Proteinuria complicating in second trimester ([facility]) 11/21/2024 8:00 AM EDT [facility] Work Phone: End: 08-31-2025 Thyrotropin [Units/volume] in Serum or Plasma THYROID STIMULATING HORMONE Lab Routine Hypothyroidism, unspecified type Once per month for 8 Occurrences starting 08/31/2024 until 08/31/2025 [facility] Comment on above: Once per month for 8 Occurrences starting 08/31/2024 until 08/31/2025 End: 08-31-2025 Thyroxine (T4) free [Mass/volume] in Serum or Plasma T4 FREE/FREE THYROXINE Lab Routine Hypothyroidism, unspecified type Once per month for 8 Occurrences starting 08/31/2024 until 08/31/2025 [facility] Work Phone: Comment on above: Once per month for 8 Occurrences starting 08/31/2024 until 08/31/2025 TRICHOMONAS VAGINALI S NAAT TRICHOMONAS VAGINALIS NAAT Lab Routine Screen for STD (sexually transmitted disease) 8 weeks gestation of 08/01/2024 9:47 AM EDT [facility] TRICHOMONAS VAGINALI S NAAT TRICHOMONAS VAGINALIS NAAT Lab Routine Supervision of other high risk pregnancies, second trimester (HCC) 16 weeks gestation of (HCC) Trichomoniasis Screen for STD (sexually transmitted disease) 09/29/2024 11:48 AM EDT [facility] Urine culture [facility] Immunizations Immunization Date Immunization Notes Care Provider [facility] 12-28-2024 tetanus toxoid, redu george diphtheria toxoid, and acellular pertussis vaccine, adsorbed [facility] 05-30-2021 COVID-19 original vaccine, age 12+ yr, monovalent (PFIZER-BIONTECH - MINOR TOP) [facility] 05-30-2021 COVID-19 vaccine, ag e 12+ yr (PFIZER-BIONTECH - PURPLE TOP) Genie Jackson MD Work Phone: [facility] 07-23-2016 influenza virus vacc ine, unspecified formulation Terrell Cloud APRN.CNP Work Phone: [facility] 12-05-2009 human papilloma viru s vaccine, quadrivalent Genie Jackson MD Work Phone: [facility] Work Phone: 08-01-2009 human papilloma viru s vaccine, quadrivalent Genie Jackson MD Work Phone: [facility] Work Phone: 02-07-2009 human papilloma viru s vaccine, quadrivalent Genie Jackson MD Work Phone: [facility] Work Phone: 02-07-2009 meningococcal polysaccharide vaccine (MPSV4) Ivelisse Ng FAMILY LAW ATTORNEY.SHOE REPAIR SUPERVISOR Work Phone: [facility] 02-07-2009 Meningococcal, MCV4, unspecified conjugate formulation(groups A, C, Y and W-135) Genie Jackson MD Work Phone: [facility] Work Phone: 02-07-2009 tetanus toxoid, redu george diphtheria toxoid, and acellular pertussis vaccine, adsorbed Genie Jackson MD Work Phone: [facility] Work Phone: 10-11-2003 diphtheria, tetanus toxoids and acellular pertussis vaccine Genie Jackson MD Work Phone: [facility] Work Phone: 10-11-2003 poliovirus vaccine, inactivated Genie Jackson MD Work Phone: [facility] Work Phone: 08-03-2003 measles, mumps and rubella virus vaccine Genie Jackson MD Work Phone: [facility] Work Phone: 12-20-1999 diphtheria, tetanus toxoids and acellular pertussis vaccine Genie Jackson MD Work Phone: [facility] Work Phone: 12-20-1999 haemophilus influenz ae type b vaccine, HbOC conjugate Genie Jackson MD Work Phone: [facility] Work Phone: 12-20-1999 haemophilus influenz ae type b vaccine, PRP-OMP conjugate Ivelisse Ng FAMILY LAW ATTORNEY.SHOE REPAIR SUPERVISOR Work Phone: [facility] 03-20-1999 diphtheria, tetanus toxoids and acellular pertussis vaccine Genie Jackson MD Work Phone: [facility] Work Phone: 03-20-1999 haemophilus influenz ae type b vaccine, HbOC conjugate Genie Jackson MD Work Phone: [facility] Work Phone: 03-20-1999 haemophilus influenz ae type b vaccine, PRP-OMP conjugate Ivelisse Ng FAMILY LAW ATTORNEY.SHOE REPAIR SUPERVISOR Work Phone: [facility] 03-20-1999 measles, mumps and rubella virus vaccine Genie Jackson MD Work Phone: [facility] Work Phone: 03-20-1999 poliovirus vaccine, inactivated Genie Jackson MD Work Phone: [facility] Work Phone: 1998 hepatitis B vaccine, pediatric or pediatric/adolescent dosage Genie Jackson MD Work Phone: [facility] Work Phone: 1998 diphtheria, tetanus toxoids and acellular pertussis vaccine Genie Jackson MD Work Phone: [facility] Work Phone: 1998 haemophilus influenz ae type b vaccine, HbOC conjugate Genie Jackson MD Work Phone: [facility] Work Phone: 1998 haemophilus influenz ae type b vaccine, PRP-OMP conjugate Ivelisse Ng APRN.SHOE REPAIR SUPERVISOR Work Phone: [facility] 1998 poliovirus vaccine, inactivated Genie Jackson MD Work Phone: [facility] Work Phone: 1998 diphtheria, tetanus toxoids and acellular pertussis vaccine Genie Jackson MD Work Phone: [facility] Work Phone: 1998 haemophilus influenz ae type b vaccine, HbOC conjugate Genie Jackson MD Work Phone: [facility] Work Phone: 1998 haemophilus influenz ae type b vaccine, PRP-OMP conjugate Ivelisse Ng FAMILY LAW ATTORNEY.SHOE REPAIR SUPERVISOR Work Phone: [facility] 1998 poliovirus vaccine, inactivated Genie Jackson MD Work Phone: [facility] Work Phone: 2000 hepatitis B vaccine, pediatric or pediatric/adolescent dosage Genie Jackson MD Work Phone: [facility] Work Phone: 1998 hepatitis B vaccine, pediatric or pediatric/adolescent dosage Genie Jackson MD Work Phone: [facility] Work Phone: Payers Date Payer Category Payer Self-pay [id number] 2023 Unknown [id number] 2022 Unknown 2017 Private Health Insurance 2017 Private Health Insurance AETNA A ETNA CHOICE POS II [id number] 2017-Present [phone] [address] [place] [address] POS [id number] 2017 Unknown [employer] [id number] 2017 Unknown [id number] 2016 Medicaid [employer] MEDIC A[employer] MEDICAID [id number] 2016-Present [phone] [address] [place] [address] Medicaid [id number] 2016 Medicaid [id number] 1998 Unknown [id number] 1998 Unknown [id number] Private Health Insurance [id number] Unknown [id number] Unknown [id number] Social History Date Type Detail Facility Start: 04-14-2014 End: 07-02-2023 Tobacco smoking status NHIS Smokes tobacco daily [facility] Start: 05-04-2012 End: 08-20-2020 History of tobacco use Cigarette Smoker [facility] Start: 04-14-2014 End: 06-15-2024 Cigarettes smoked current (pack per day) - Reported 0.5 [facility] Start: 04-14-2014 End: 07-25-2024 Tobacco use and exposure Smokeless tobacco non-user [facility] Start: 05-09-2021 End: 07-20-2024 Alcohol intake Current non-drinker of alcohol (finding) [facility] Start: 01-09-2021 End: 08-25-2022 History SDOH Alcohol Frequency 1 [facility] Start: 01-09-2021 History SDOH Social Connections Phone 3 [facility] Start: 01-09-2021 End: 08-25-2022 History SDOH Social Connections Membership 2 [facility] Start: 01-09-2021 History SDOH Social Connections Living 8 [facility] Start: 01-09-2021 History SDOH Physica l Activity DPW 0 [facility] Start: 01-09-2021 End: 08-25-2022 History SDOH Stress 5 [facility] Start: 01-09-2021 Education 11 [facility] Start: 07-30-2020 End: 12-24-2021 Tobacco Comment Vapes [facility] Start: 2000 Sex Assigned At Not on file [facility] Start: 09-07-2021 End: 12-24-2021 Exposure to SARS-CoV-2 (event) Not sure [facility] Start: 09-25-2021 End: 07-25-2024 Tobacco smoking status NHIS Ex-smoker [facility] Work Phone: Start: 05-04-2012 End: 08-20-2020 History of tobacco use Current smoker [facility] Work Phone: Start: 03-02-2022 End: 07-02-2023 Tobacco smoking status NHIS Unknown if ever smoked [facility] Start: 09-27-2017 None [facility] Start: 09-27-2017 [facility] Start: 2000 Sex Assigned At Female [facility] Start: 08-25-2022 History SDOH Social Connections Get Together 4 [facility] Start: 08-25-2022 History SDOH Social Connections Living 7 [facility] Start: 08-25-2022 History SDOH Physica l Activity MPS 15 [facility] Start: 08-25-2022 End: 06-15-2024 Social connection and isolation panel [facility] Do you belong to any clubs or organizations such as jehovah's witness groups, unions, fraternal or athletic groups, or school groups? No [facility] Are you now , , , , never or living with a partner? Never [facility] How often to you hav e a drink containing alcohol? Monthly or less [facility] How many standard dr inks containing alcohol do you have on a typical day? 1 or 2 [facility] How often do you hav e 6 or more drinks on 1 occasion? Never [facility] Start: 04-04-2012 How hard is it for y ou to pay for the very basics like food, housing, medical care, and heating Not hard at all [facility] Do you feel stress - tense, restless, nervous, or anxious, or unable to sleep at night because your mind is troubled all the time - these days [OSQ] Very much [facility] (I/We) worried whemichelle er (my/our) food would run out before (I/we) got money to buy more. Never true [facility] Tobacco smoking status No Smokin g Status Entered [facility] Are you now , , , , never or living with a partner? Living with partner [facility] Start: 08-01-2024 End: 01-12-2025 Alcoholic beverage intake Ex-drinker (finding) [facility] Start: 07-25-2024 Alcohol Comment rarely [facility] Start: 06-18-2024 [facility] NEGATED: Highlighted row [facility] NEGATED: Highlighted rowStart: [place] History of tobacco use Passive smoker [facility] Goals Date Patient Goal Desired Activity /State Personal health goal Functional Status Date Assessment Result Facility 07-06-2023 Functional Status ID band on, Safety level maintained [facility] 08-18-2014 Are you deaf, or do you have serious difficulty hearing No 08/18/2014 3:08 PM EDT Yaritza Mccollum MA No [facility] 08-18-2014 Are you blind, or do you have serious difficulty seeing, even when wearing glasses No 08/18/2014 3:08 PM EDT Yaritza Mccollum MA No [facility] 08-18-2014 Do you have serious difficulty walking or climbing stairs No 08/18/2014 3:08 PM EDT Yaritza Mccollum MA No [facility] 08-18-2014 Do you have difficul ty dressing or bathing No 08/18/2014 3:08 PM EDT Yaritza Mccollum MA No [facility] 08-18-2014 Because of a physica l, mental, or emotional condition, do you have difficulty doing errands alone such as visiting a physician's office or shopping No 08/18/2014 3:08 PM EDT Yaritza Mccollum MA No [facility] Mental Status Date Assessment Result Facility 07-06-2023 Mental Status Orientation Oriented x 4 [facility] 07-02-2023 Cognitive function Level Of Cons ciousness Awake;Alert;Appropriate [facility] Work Phone: 09-06-2022 Cognitive function Level Of Cons ciousness Awake;Alert;Appropriate;Fol lows Commands [facility] Work Phone: 08-18-2014 Because of a physica l, mental, or emotional condition, do you have serious difficulty concentrating, remembering, or making decisions Yes 08/18/2014 3:08 PM EDT Yaritza Mccollum MA Yes [facility] Clinical Notes 07-23-2016 to 02-14-2025 Telephone Encounter - Dhara Sanchez MD - 01/17/2025 12:56 PM EDTTelephone Encounter - Dhara Sanchez MD - 01/17/2025 12:56 PM EDTTelephone Encounter - Steffanie Lozada RN - 01/17/2025 12:39 PM EDT Note Date & Type Note Facility 02-14-2025 Note HNO ID: [id number] Author: DHARA SANCHEZ MD Service: ? Author [...] None Interpretation: Reactive SIGNATURE: Dhara Sanchez MD [facility] 02-09-2025 Note HNO ID: [id number] Author: XIMENA HARTMAN MD Service: ? Author [...] scheduled for BPP SIGNATURE: Ximena Hartman DO [facility] 02-02-2025 Note HNO ID: [id number] Author: STEFFANIE LOPEZ MD Service: ? Author Type: Physician Type: Progress Notes Filed: 02/02/2025 11:56 Note Text: NST SUMMARY PROVIDER ASSESSMENT AND INTERPRETATION Indications for NST: Polyhydramnios Baseline: 130 Variability: Moderate Accelerations: Present 15 X 15 Decelerations: None Interpretation: Reactive SIGNATURE: Steffanie Lopez MD [facility] 01-27-2025 Note HNO ID: [id number] Author: BHARGAVI NAVAS APRN.CN Service: ? Author Type: Foxing Cutting Machine Operator Type: Progress Notes Filed: 01/27/2025 13:38 Note Text: NST SUMMARY PROVIDER ASSESSMENT AND INTERPRETATION Janet Cha is a 24 year old female, , who is at 33w6d with an KELLEY of 03/11/2025, by Last Menstrual Period dating method. Indications for NST: Obesity Baseline: 125 Variability: Moderate Accelerations: Present 15 X 15 Decelerations: None Contractions: TOCO: None Interpretation: Reactive SIGNATURE: Bhargavi Navas APRN.CNM [facility] 01-24-2025 Note HNO ID: [id number] Author: DHARA SANCHEZ MD Service: ? Author [...] None Interpretation: Reactive SIGNATURE: Dhara Sanchez MD [facility] 01-17-2025 Telephone encounter Note EDC was confirmed by 2 early US and will not be changed. We can discuss this further at her next visit. Dhara Sanchez MD [facility] Work Phone: 01-17-2025 Miscellaneous Notes EDC [...] Steffanie Lozada, RN documented in this encounter [facility] 01-17-2025 Telephone encounter Note Patient had called in to the office earlier. She has her next growth US and office visit on 01/24. Recommended patient discuss at this upcoming appointment once we have more information with the baby's growth. Can you please address this today in SW's absence since her next appointment is with you? Steffanie Lozada RN [facility] 01-12-2025 Note HNO ID: [id number] Author: XIMENA HARTMAN MD Service: ? Author [...] was reading higher, and she went to [facility] recently for BP check. Recommend bringing BP cuff to next appointment. Cont LDA. Discussed reasons to call - Shortness of Breath with exertion only: Discussed reasons to go to ER - Obesity: Schedule repeat growth US and weekly NST's ordered starting at 36 weeks - RTO 2 wks Ximena Hartman DO [facility] 01-12-2025 History of Presen t illness [...] Ximena Hartman DO documented in this encounter [facility] 01-12-2025 Instructions Vincent Hale RN - 01/12/2025 11:09 AM EDT SEQUENTIAL SCREENINGS The [facility] offers sequential screenings for women who [...] It will require an appointment with our environmental engineering technician. This is not an ultrasound performed [...] the above symptoms, contact our office at [phone] and ask to speak with a nurse. After hours, you can call doctors registry at [phone] OR call [facility] at [phone] and ask to have the doctor front desk lead paged. If you consider this an emergency, dial 01-02- or go to your nearest emergency department. NEED HELP? Are you dealing with a violent or abusive relationship? Are you a victim of rape or sexual assult? Call [facility] ([facility] 24 hour Crisis Hotline: 316.838.9075 or 101-867-9084. MANUAL Your Guide to a Healthy manual is now on-line. Visit [email or web address] to download your free copy documented in this encounter [facility] 01-05-2025 Telephone encounter Note Patient Comment: [...] Jaquez MA January 05, 2025 10:28 AM [facility] 01-05-2025 Miscellaneous Notes Patient Comment: Only [...] 2025 10:28 AM documented in this encounter [facility] 12-29-2024 Telephone encounter Note Hgb 10.5 Borderline anemic. Can start taking iron every other day and repeat labs in 4 weeks [facility] 12-29-2024 Miscellaneous Notes Hgb 10.5 Borderline [...] Vincent Hale, VENKATESH documented in this encounter [facility] 12-29-2024 Telephone encounter Note 29w5d Pt [...] with 1st child fyi. Vincent Hale, VENKATESH [facility] 12-29-2024 Telephone encounter Note 3rd risk assessment form submitted 12/29/2024. Steffanie Neely RN [facility] 12-29-2024 Miscellaneous Notes 3rd risk assessment form submitted 12/29/2024. Steffanie Neely RN documented in this encounter [facility] 12-28-2024 Note Indication Evaluation of growth [...] 5 oz EFW by: Hadlock (HC-AC-FL) Extended Painting Trades Worker 6.3 mm Extremities / Bony Struc [place] [...] and consent was signed Emmanuel Hess MD [facility] 12-28-2024 Miscellaneous Notes RR- VB No. [...] Emmanuel Hess MD documented in this encounter [facility] 12-28-2024 Note HNO ID: [id number] Author: YARITZA MCCOLLUM MA Service: ? Author Type: Compound Worker Type: Progress Notes Filed: 12/28/2024 15:10 Note [...] severely ill: Yes Patient denies history of Guillain-Rexford Syndrome (a severe paralytic illness): Yes Tdap Adacel injection was given without incident. See immunizations for details of immunizations administered today. VIS sheet provided: Yes Provider Dr Hess was present in office at time of injection. [facility] 12-28-2024 History of Presen t illness [...] severely ill: Yes Patient denies history of Guillain-Rexford Syndrome (a severe paralytic illness): Yes Tdap Adacel injection was given without incident. See immunizations for details of immunizations administered today. VIS sheet provided: Yes Provider Dr Hess was present in office at time of injection. documented in this encounter [facility] 12-28-2024 Instructions Yaritza Mccollum MA - 12/28/2024 1:37 PM EDT SEQUENTIAL SCREENINGS The [facility] offers sequential screenings for women who [...] It will require an appointment with our environmental engineering technician. This is not an ultrasound performed [...] the above symptoms, contact our office at [phone] and ask to speak with a nurse. After hours, you can call doctors registry at [phone] OR call [facility] at [phone] and ask to have the doctor front desk lead paged. If you consider this an emergency, dial 9-2 or go to your nearest emergency department. NEED HELP? Are you dealing with a violent or abusive relationship? Are you a victim of rape or sexual assult? Call [facility] ([facility] 24 hour Crisis Hotline: 779.454.4615 or 280-102-8873. MANUAL Your Guide to a Healthy manual is now on-line. Visit [email or web address] Vincenzo to download your free copy documented in this encounter [facility] 12-23-2024 Telephone encounter Note Patient 28w6d calling with concerns of decreased FM. Patient states she has decreased movement since Thursday. States she is not getting 6-10 movement in an hour when doing kick counts. Patient advised to go to L&D for evaluation, voiced understanding. FYI. Asia Garzon RN [facility] 12-23-2024 Miscellaneous Notes Patient 28w6d calling with concerns of decreased FM. Patient states she has decreased movement since Thursday. States she is not getting 6-10 movement in an hour when doing kick counts. Patient advised to go to L&D for evaluation, voiced understanding. FYI. Asia Garzon RN documented in this encounter [facility] 11-30-2024 Telephone encounter Note Ob patient called requesting refill of aspirin 81 mg. [facility] 11-30-2024 Miscellaneous Notes Ob patient called requesting refill of aspirin 81 mg. documented in this encounter [facility] 11-29-2024 Note HNO ID: [id number] Author: ANDRE SIMPSON APRN.SHOE REPAIR SUPERVISOR Service: ? Author Type: Nurse Practitioner Type: Progress Notes Filed: 11/29/2024 13:25 Note Text: I have communicated my name and active licensure. The patient's identity and physical location were verified at the time of this visit. Either the patient or their legal union contract representative has been informed of the risks [...] Follow up in 4 weeks. Andre Simpson APRN.SHOE REPAIR SUPERVISOR Visit was conducted via [employer] Provider Location: [facility] Facility Patient Location: Patient Home or Place of Residence [facility] 11-29-2024 History of Presen t illness Narrative I have communicated my name and active licensure. The patient's identity and physical location were verified at the time of this visit. Either the patient or their legal union contract representative has been informed of the risks [...] Follow up in 4 weeks. Andre Simpson APRN.SHOE REPAIR SUPERVISOR Visit was conducted via [employer] Provider Location: [facility] Patient Location: Patient Home or Place of Residence documented in this encounter [facility] 11-29-2024 Progress note Formatting of t [...] of other high risk pregnancies, second trimester ([facility]) - ICD9: V23.89, ICD10: O09.892 (primary diagnosis) 2. 25 weeks gestation of ([facility]) - ICD9: V22.2, ICD10: Z3A.25 3. Screening for diabetes mellitus - ICD9: V77.1, ICD10: Z13.1 - GESTATIONAL GLUCOSE SCREEN, 1-HOUR, 50 GRAM, NON-FASTING 4. Hx of preeclampsia, prior , currently ([facility]) - ICD9: V23.49, ICD10: O09.299 5. Hypothyroidism, unspecified type - ICD9: 244.9, ICD10: E03.9 Seeing Endocrinology at the end of December 6. Obesity in ([facility]) - ICD9: 649.10, ICD10: O99.210 Growth US Q 4 weeks NST @ 32 wks Elayne Severino APRN.SHOE REPAIR SUPERVISOR [facility] 11-29-2024 Miscellaneous Notes RM-Pt doing well. Denies vaginal Bleeding, Leaking fluid, or regular Contractions. Pt reports good movement. Getting VARGAS, is using Benadryl and Tylenol with little relief, Reglan order to add to regimen. Physical Exam: Gen: no apparent distress Abd: soft, Gravid. Non tender to palpation. See flow sheet ASSESSMENT/PLAN: 1. Supervision of other high risk pregnancies, second trimester ([facility]) - ICD9: V23.89, ICD10: O09.892 (primary diagnosis) 2. 25 weeks gestation of ([facility]) - ICD9: V22.2, ICD10: Z3A.25 3. Screening for diabetes mellitus - ICD9: V77.1, ICD10: Z13.1 - GESTATIONAL GLUCOSE SCREEN, 1-HOUR, 50 GRAM, NON-FASTING 4. Hx of preeclampsia, prior , currently ([facility]) - ICD9: V23.49, ICD10: O09.299 5. Hypothyroidism, unspecified type - ICD9: 244.9, ICD10: E03.9 Seeing Endocrinology at the end of December 6. Obesity in ([facility]) - ICD9: 649.10, ICD10: O99.210 Growth US Q 4 weeks NST @ 32 wks Elayne Severino APRN.SHOE REPAIR SUPERVISOR documented in this encounter [facility] 11-29-2024 Instructions Tammy Duke LPN - 11/29/2024 10:09 AM EDT SEQUENTIAL SCREENINGS The [facility] offers sequential screenings for women who [...] It will require an appointment with our environmental engineering technician. This is not an ultrasound performed [...] the above symptoms, contact our office at [phone] and ask to speak with a nurse. After hours, you can call doctors registry at [phone] OR call [facility] at [phone] and ask to have the doctor front desk lead paged. If you consider this an emergency, dial 9--1 or go to your nearest emergency department. NEED HELP? Are you dealing with a violent or abusive relationship? Are you a victim of rape or sexual assult? Call [facility] ([place]) 24 hour Crisis Hotline: 723.247.8070 or 929-288-7609. MANUAL Your Guide to a Healthy manual is now on-line. Visit [email or web address] [email or web address] to download your free copy documented in this encounter [facility] 11-21-2024 Telephone encounter Note Urine dropped off and in process. Asia Garzon RN [facility] 11-21-2024 Miscellaneous Notes Urine dropped off [...] morning Orders placed. documented in this encounter [facility] 11-20-2024 Evaluation note Diagnosis Onset Date Resolution 24 weeks gestation of acute November 19, 2024 10:10pm Headache in acute Yoshi y 19th, 2025 10:10pm Proteinuria affecting in second trimester acute November 19, 2024 10:10pm [facility] Work Phone: 1(237) 257-556407-19-2025 Telephone encounter Note* Telephone Encounter - Steffanie [...] to lab on Thursday morning Orders placed. [facility]07-19-2025 Hospital Discharge instructionsAdditional Instructions Keep OB appointment this week, 24 hour urine to be started 11/20 at 8am and bring to [facility] lab on 11/21 at 8am.[facility] Work Phone: 1(494) 924-944207-16-2025 Telephone encounter Note* Telephone Encounter - Joyce Restrepo MD - 11/16/2024 11:37 AM EDT Noted. Thank you [facility] Work Phone: 1(368) 900-841307-16-2025 Miscellaneous Notes* Telephone Encounter - Joyce Restrepo [...] 11/23. Steffanie Lozada RN [facility] Telephone encounter Note * Telephone Encounter [...] OB visit is 11/23. Steffanie Lozada RN [facility]06-26-2025 Telephone encounter Note* Telephone Encounter - Steffanie Neely RN - 10/27/2024 9:36 AM EDT 2nd risk assessment form submitted 10/27/2024. Steffanie Neely RN [facility]06-26-2025 Miscellaneous Notes* Telephone Encounter - Steffanie Neely RN - 10/27/2024 9:36 AM EDT 2nd risk assessment form submitted 10/27/2024. Steffanie Neely RN [facility] Progress note* Quick Notes - Steffanie [...] of other high risk pregnancies, second trimester ([facility]) - ICD9: V23.89, ICD10: O09.892 (primary diagnosis) 2. Obesity in ([facility]) - ICD9: 649.10, ICD10: O99.210 Growth q 4 NST at 32 weeks 3. Hypothyroidism, unspecified type - ICD9: 244.9, ICD10: E03.9 Sees endocrine 4. Hx of preeclampsia, prior , currently ([facility]) - ICD9: V23.49, ICD10: O09.299 5. 20 weeks gestation of ([facility]) - ICD9: V22.2, ICD10: Z3A.20 Steffanie Lopez MD [facility]06-25-2025 Miscellaneous Notes* Quick Notes - Steffanie [...] of other high risk pregnancies, second trimester ([facility]) - ICD9: V23.89, ICD10: O09.892 (primary diagnosis) 2. Obesity in ([facility]) - ICD9: 649.10, ICD10: O99.210 Growth q 4 NST at 32 weeks 3. Hypothyroidism, unspecified type - ICD9: 244.9, ICD10: E03.9 Sees endocrine 4. Hx of preeclampsia, prior , currently ([facility]) - ICD9: V23.49, ICD10: O09.299 5. 20 weeks gestation of ([facility]) - ICD9: V22.2, ICD10: Z3A.20 Steffanie Lopez MD [facility] Instructions* Patient Instructions* Angie Brown MA - 10/26/2024 11:10 AM EDT SEQUENTIAL SCREENINGS The [facility] offers sequential screenings for women who [...] testing. It will require an appointment withour environmental engineering technician. This is not an ultrasound performed [...] the above symptoms, contact our office at [phone] and ask to speak with anurse. After hours, you can call doctors registry at [phone] OR call [facility] at [phone] ask to have the doctor front desk lead paged. If you consider this an emergency, dial 9--6 or go to your nearest emergency department. NEED HELP? Are you dealing with a violent or abusive relationship? Are you a victim of rape or sexual assult? Call [facility] ([place]) 24 hour Crisis Hotline: 768.228.2039 or 090-787-6815. MANUAL Your Guide to a Healthy manual is now on-line. Visit [email or web address] to download your free copy [facility] Progress note* Result Encounter Note - Emmanuel Hess MD - 10/05/2024 12:29 PM EDT Anatomy ultrasound reviewed. No abnormalities identified. Follow up as clinically indicated. Pleaseplace copy in ob chart. Emmanuel Hess MD [facility]06-04-2025 Miscellaneous Notes* Result Encounter Note - Emmanuel Hess MD - 10/05/2024 12:29 PM EDT Anatomy ultrasound reviewed. No abnormalities identified. Follow up as clinically indicated. Pleaseplace copy in ob chart. Emmanuel Hess MD [facility] [facility] Progress [facility]* Quick Notes - Emmanuel Hess MD - 09/29/2024 11:36 AM EDT RR- VB No. LOF No. CTXS No. Movement: present. Other c/o: No. Medication list reviewed. SENSITIVE EXAM: The sensitive examination was discussed with the Patient or Patient's Authorized Structural Drafter. As applicable, any other physician, advance practice provider, medical student, or other health professional student that will be observing or involved in the sensitive examination for educational or training purposes was discussed with the Patient or Authorized Structural Drafter. The Patient or Authorized Structural Drafter has agreed to proceed with the sensitive [...] of other high risk pregnancies, second trimester ([facility]) Orders: TRICHOMONAS VAGINALIS NAAT GONORRHEA/CHLAMYDIA NAAT CONSULT TO ENDOCRINOLOGY; Future OBSTETRIC ULTRASOUND WHI; Standing Hx of preeclampsia, prior , currently ([facility]) Orders: OBSTETRIC ULTRASOUND WHI; Standing Obesity in ([facility]) counseled on wt gain Orders: OBSTETRIC ULTRASOUND WHI; Standing Hypothyroidism, unspecified type increased syntrhoid to 62.5 mg daily, rx sent Orders: CONSULT TO ENDOCRINOLOGY; Future OBSTETRIC ULTRASOUND WHI; Standing 16 weeks gestation of ([facility]) Orders: TRICHOMONAS VAGINALIS NAAT GONORRHEA/CHLAMYDIA NAAT CONSULT TO ENDOCRINOLOGY; Future Trichomoniasis Orders: TRICHOMONAS VAGINALIS NAAT GONORRHEA/CHLAMYDIA NAAT Screen for STD (sexually transmitted disease) Orders: TRICHOMONAS VAGINALIS NAAT GONORRHEA/CHLAMYDIA NAAT f/u in 4 weeks or prn Emmanuel Hess M.D. [facility]05-29-2025 Miscellaneous Notes* Quick Notes - Emmanuel Hess MD - 09/29/2024 11:36 AM EDT RR- VB No. LOF No. CTXS No. Movement: present. Other c/o: No. Medication list reviewed. SENSITIVE EXAM: The sensitive examination was discussed with the Patient or Patient's Authorized Structural Drafter. As applicable, any other physician, advance practice provider, medical student, or other health professional student that will be observing or involved in the sensitive examination for educational or training purposes was discussed with the Patient or Authorized Structural Drafter. The Patient or Authorized Structural Drafter has agreed to proceed with the sensitive [...] of other high risk pregnancies, second trimester ([facility]) Orders: TRICHOMONAS VAGINALIS NAAT GONORRHEA/CHLAMYDIA NAAT CONSULT TO ENDOCRINOLOGY; Future OBSTETRIC ULTRASOUND WHI; Standing Hx of preeclampsia, prior , currently ([facility]) Orders: OBSTETRIC ULTRASOUND WHI; Standing Obesity in ([facility]) counseled on wt gain Orders: OBSTETRIC ULTRASOUND WHI; Standing Hypothyroidism, unspecified type increased syntrhoid to 62.5 mg daily, rx sent Orders: CONSULT TO ENDOCRINOLOGY; Future OBSTETRIC ULTRASOUND WHI; Standing 16 weeks gestation of ([facility]) Orders: TRICHOMONAS VAGINALIS NAAT GONORRHEA/CHLAMYDIA NAAT CONSULT TO ENDOCRINOLOGY; Future Trichomoniasis Orders: TRICHOMONAS VAGINALIS NAAT GONORRHEA/CHLAMYDIA NAAT Screen for STD (sexually transmitted disease) Orders: TRICHOMONAS VAGINALIS NAAT GONORRHEA/CHLAMYDIA NAAT f/u in 4 weeks or prn Emmanuel Hess M.D. documented in this encounterOhiohealth Shelby Hospital05-29-2025 Instructions* Patient Instructions* Yaritza Mccollum MA - 09/29/2024 11:25 AM EDT SEQUENTIAL SCREENINGS The [facility] offers sequential screenings for women who [...] testing. It will require an appointment withour environmental engineering technician. This is not an ultrasound performed [...] the above symptoms, contact our office at [phone] and ask to speak with anurse. After hours, you can call doctors registry at [phone] OR call [facility] at [phone] ask to have the doctor front desk lead paged. If you consider this an emergency, dial 9-7-8 or go to your nearest emergency department. NEED HELP? Are you dealing with a violent or abusive relationship? Are you a victim of rape or sexual assult? Call [facility] ([place]) 24 hour Crisis Hotline: 493.724.6257 or 999-482-3264. MANUAL Your Guide to a Healthy manual is now on-line. Visit [email or web address] to download your free copy documented in this encounterOhiohealth Shelby Hospital05-08-2025 Telephone encounter Note * Telephone Encounter - Genie Jackson MD - 09/08/2024 10:37 AM EDT Med refilled at appt Genie Jackson MD [facility]05-08-2025 Miscellaneous Notes* Telephone Encounter - Genie Jackson MD - 09/08/2024 10:37 AM EDT Med refilled at appt Genie Jackson MD * Telephone Encounter - Lis Link RN - 09/07/2024 11:59 AM EDT Patient reports she is completely out of her buspar. Requesting refill. Pended. Patient currently , 13 weeks, 4 days, sees DOUBLE END TENONER SETTER MYRIAM was 08/04/24 -Per note, OK to [...] 07, 2024 12:02 PM documented in this encounterOhiohealth Shelby Hospital05-08-2025 History of Present illness Narrative* Genie [...] visit. Either the patient or their legal union contract representative has been informed of the risks [...] by mouth two times a day. VIT 6-VOGL-PKRBV-DHA ORAL Take by mouth. diphenhydramine HCl (UNISOM, [...] Past Histories independently gathered by the clinical ground support agent and the remaining scribed note accurately describes my personal service to the patient. Genie Jackson MD The documentation for this note was completed by Lyric Jaquez MA acting as scribe for Genie Jackson MD. September 08, 2024 9:07 AM. Lyric Jaquez MA documented in this encounterOhiohealth Shelby Hospital05-08-2025 NoteHNO ID: [id number] Author: GENIE JACKSON MD Service: ? Author [...] visit. Either the patient or their legal union contract representative has been informed of the risks [...] by mouth two times a day. VIT 7-ZHAF-JIHTI-DHA ORAL Take by mouth. diphenhydramine HCl (UNISOM, [...] and Past Histories indep (more content not included)...[facility]05-07-2025 Telephone encounter Note* Telephone Encounter - Lis Link RN - 09/07/2024 11:59 AM EDT Patient reports she is completely out of her buspar. Requesting refill. Pended. Patient currently , 13 weeks, 4 days, sees DOUBLE END TENONER SETTER MYRIAM was 08/04/24 -Per note, OK to [...] Link RN September 07, 2024 12:02 PM [facility]04-30-2025 Progress note* Result Encounter Note - Emmanuel Hess MD - 08/31/2024 1:07 PM EDT Anatomy ultrasound reviewed. No abnormalities identified. Follow up as clinically indicated. Pleaseplace copy in ob chart. Emmanuel Hess MD [facility]04-30-2025 Miscellaneous Notes* Result Encounter Note - Emmanuel Hess MD - 08/31/2024 1:07 PM EDT Anatomy ultrasound reviewed. No abnormalities identified. Follow up as clinically indicated. Pleaseplace copy in ob chart. Emmanuel Hess MD documented in this encounterOhiohealth Shelby Hospital04-30-2025 Progress note* Quick Notes - Bhargavi [...] RTO in 4 weeks Bhargavi Navas APRN.CNM [facility]04-30-2025 Miscellaneous Notes* Quick Notes - Bhargavi [...] weeks Bhargavi Navas APRN.CNM documented in this encounterOhiohealth Shelby Hospital04-30-2025 NoteHNO ID: [id number] Author: BHARGAVI NAVAS APRN.CNM Service: ? Author Type: Foxing Cutting Machine Operator Type: Progress Notes Filed: 08/31/2024 12:39 Note Text:[facility]04-30-2025 History of Present illness Narrative* Bhargavi Navas APRN.CNM - 08/31/2024 12:06 PM EDT documented in this encounterOhiohealth Shelby Hospital04-30-2025 Instructions* Patient Instructions* Rehan Cervantes MA - 08/31/2024 11:50 AM EDT SEQUENTIAL SCREENINGS The [facility] offers sequential screenings for women who [...] testing. It will require an appointment withour environmental engineering technician. This is not an ultrasound performed [...] the above symptoms, contact our office at [phone] and ask to speak with anurse. After hours, you can call doctors registry at [phone] OR call [facility] at [phone] ask to have the doctor front desk lead paged. If you consider this an emergency, dial 01-02- or go to your nearest emergency department. NEED HELP? Are you dealing with a violent or abusive relationship? Are you a victim of rape or sexual assult? Call [facility] ([place]) 24 hour Crisis Hotline: 485.994.4301 or 718-517-6350. MANUAL Your Guide to a Healthy manual is now on-line. Visit [email or web address] to download your free copy documented in this encounterOhiohealth Shelby Hospital04-03-2025 History of Present illness Narrative* Genie [...] visit. Either the patient or their legal union contract representative has been informed of the risks [...] 1 tablet by mouth once daily. VIT 0-EZST-XAZBH-DHA ORAL Take by mouth. diphenhydramine HCl (UNISOM, [...] months Genie Jackson MD documented in this encounterOhiohealth Shelby Hospital04-03-2025 NoteHNO ID: [id number] Author: GENIE JACKSON MD Service: ? Author [...] visit. Either the patient or their legal union contract representative has been informed of the risks [...] 1 tablet by mouth once daily. VIT 0-EBHW-AAFRT-DHA ORAL Take by mouth. diphenhydramine HCl (UNISOM, [...] Anxiety Screening due on (more content not included)...[facility]04-01-2025 Telephone encounter Note* Telephone Encounter - Elayne Severino APRN.CNP - 08/02/2024 1:55 PM EDT Rx sent. Elayne Severino APRN.CNP [place] [address]-01-2025 Miscellaneous Notes* Telephone Encounter - Elayne Severino [...] advise. Steffanie Lozada RN documented in this encounterOhiohealth Shelby Hospital04-01-2025 Telephone encounter Note * Telephone Encounter [...] file pended EPT order. Asia Garzon RN [facility]04-01-2025 Instructions* Patient Instructions* Asia Garzon RN [...] to prevent other STIs. documented in this encounterOhiohealth Shelby Hospital04-01-2025 Telephone encounter Note * Telephone Encounter - Steffanie Neely RN - 08/02/2024 12:41 PM EDT 1st risk assessment form submitted 08/02/2024. Steffanie Neely RN [facility]04-01-2025 Miscellaneous Notes* Telephone Encounter - Steffanie Neely RN - 08/02/2024 12:41 PM EDT 1st risk assessment form submitted 08/02/2024. Steffanie Neely RN documented in this encounterOhiohealth Shelby Hospital04-01-2025 Telephone encounter Note * Telephone Encounter - Elayne Severino APRN.CNP - 08/02/2024 12:31 PM EDT Flagyl sent. If STDs are left untreated there is small chance that is can lead to miscarriage. Doesshe need partner treatment? Elayne Severino APRN.CNP [facility]04-01-2025 Telephone encounter Note* Telephone Encounter - Steffanie Lozada RN - 08/02/2024 12:02 PM EDT 8w3d Patient viewed +Trich on Mychart. Asking if this could harm her baby. Please review result and advise. Steffanie Lozada RN [facility]03-31-2025 Instructions* Patient Instructions* Tammy Duke LPN - 08/01/2024 8:13 AM EDT Please select the following link to access the [facility] Your Guide to a Healthy . [email or web address] documented in this encounterOhiohealth Shelby Hospital03-24-2025 NoteHNO ID: [id number] Author: ELAYNE SEVERINO APRN.CIERRA Service: ? Author Type: Nurse Practitioner Type: Progress Notes Filed: 08/01/2024 10:06 Note Text: Patient declined show operations supervisor. *History of preeclampsia with prior *History of hemorrhage. Received blood transfusion *Pt has a history of anxiety/depression diagnosed as a teenager. Recently changed from Prozac to Zoloft by Dr. Jackson. On BuSpar as well. Denies any history of depression. States she has had suicidal thoughts in the past but none since age 15. Had 2 psychiatric hospitalizations one at age 13 in [place] and the other at [facility] at age 14[address] Raymundo [...] at all I h (more content not included)...[facility]03-24-2025 History of Present illness Narrative* Elayne Severino APRN.SHOE REPAIR SUPERVISOR - 07/25/2024 5:01 PM EDT Images from the original note were not included. Patient declined show operations supervisor. *History of preeclampsia with prior *History of hemorrhage. Received blood transfusion *Pt has a history of anxiety/depression diagnosed as a teenager. Recently changed from Prozac to Zoloft by Dr. Jackson. On BuSpar as well. Denies any history of depression. States she has had suicidal thoughts in the past but none since age 15. Had 2 psychiatric hospitalizations one at age 13 in [place] and the other at [facility] at age 14[address] Raymundo [...] harming myself has occurred to me. 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 diphenhydramine HCl (UNISOM, [...] discussed with the Patient or Patient's Authorized Structural Drafter. As applicable, any other physician, advance practice provider, medical student, or other health professional student that will be observing or involved in the sensitive examination for educational or training purposes was discussed with the Patient or Authorized Structural Drafter. The Patient or Authorized Structural Drafter has agreed to proceed with the sensitive [...] activity, CRL consistent with LMP. Elayne Severino APRN.SHOE REPAIR SUPERVISOR SBIRT Janet Frank was given the 4P's [...] Your guide to a health and the Checkout Supervisor. Patient has penicillin allergy, plan for allergy testing. Reviewed midwifery and el teacher services that are available. 2) Screening: Hemoglobin [...] 4 weeks or sooner prn. Elayne Severino APRN.SHOE REPAIR SUPERVISOR documented in this encounterOhiohealth Shelby Hospital03-24-2025 Telephone encounter Note * Telephone Encounter - Xavier Curire RN - 07/25/2024 4:16 PM EDT Left message for patient to return phone call to complete nurse intake questions for her upcoming appointment. Patient has an appointment with Elayne Severino for NOB appointment. [facility]03-24-2025 Miscellaneous Notes* Telephone Encounter - Xavier Currie RN - 07/25/2024 4:16 PM EDT Left message for patient to return phone call to complete nurse intake questions for her upcoming appointment. Patient has an appointment with Elayne Severino for NOB appointment. documented in this encounterOhiohealth Shelby Hospital03-21-2025 Telephone encounter Note * Telephone Encounter - Lela Daley RN - 07/22/2024 9:39 AM EDT Pt was scheduled today with Dr Jackson for a VV to discuss medication options. [facility]03-21-2025 Miscellaneous Notes* Telephone Encounter - Lela [...] that is much safer. documented in this encounterOhiohealth Shelby Hospital03-21-2025 Telephone encounter Note * Telephone Encounter - Genie Jackson MD - 07/22/2024 9:30 AM EDT Needs office visit to discuss options Genie Jackson MD [facility]03-21-2025 Telephone encounter Note* Telephone Encounter - Karis Hess LPN - 07/22/2024 9:17 AM EDT Patient called to asking if she should continue taking the Linzess as she is 7 weeks . OB suggested that there maybe something else that she can try that is much safer. [facility]03-19-2025 Instructions* Patient Instructions* Roxana Fry APRN.CNM - 07/20/2024 1:22 PM EDT MORNING SICKNESS IN by Bev Horowitz M.D. for [employer] As you may already know, morning sickness can often be more appropriately called evening sickness or szwtk-xqwzun-vd-the-day sickness. While there are the bautista few, [...] medication, Doxylamine, is currently marketed as an arhl-hae-nvevypf sleeping pill. Ask your practitioner if creating a vitamin B6/Doxylaminecombination with omns-zhp-dbjsoff medications would be safe for you. Prescription [...] as Phenergan, Compazine, Reglan documented in this encounterOhiohealth Shelby Hospital03-19-2025 NoteHNO ID: [id number] Author: ROXANA FRY APRN.CNM Service: ? Author Type: Foxing Cutting Machine Operator Type: Progress Notes Filed: 07/20/2024 13:31 Note [...] transfusion after due to CBC of 3. Gatekeeper History LMP: 05/13/2024 (Exact Date), Having periods Age at Menarche: Age at First : Age at Menopause: Gatekeeper History Comments: Sexual Activity: Yes; Male Contraception: [...] RTO 1 week for NOB Roxana Fry APRN.[facility]03-19-2025 History of Present illness Narrative* Roxana Fry APRN.[facility] - 07/20/2024 12:56 PM EDT Janet [...] transfusion after due to CBC of 3. Gatekeeper History LMP: 05/13/2024 (Exact Date), Having periods Age at Menarche: Age at First : Age at Menopause: Gatekeeper History Comments: Sexual Activity: Yes; Male Contraception: [...] for CARL Fry APRN.CNM documented in this encounterOhiohealth Shelby Hospital02-17-2025 Telephone encounter Note * Telephone Encounter - Ivelisse Ng APRN.CNP - 06/20/2024 3:55 PM EST The following approved medication requests have been transmitted electronically. Requested Prescriptions Signed Prescriptions Disp Refills busPIRone 30 mg tablet 60 tablet 5 Sig: Take 1 tablet by mouth two times a day. Authorizing Provider: IVELISSE NG APRN.CNP [facility]02-17-2025 Miscellaneous Notes* Telephone Encounter - Ivelisse [...] 30 mg Buspar sent to [facility]. Jossy Raines LPN * Telephone Encounter - [...] her preferred pharmacy. Thank you Ivelisse Ng APRN.SHOE REPAIR SUPERVISOR * Telephone Encounter - Tamanna Amaro LPN [...] advise. Tamanna Amaro LPN documented in this encounterOhiohealth Shelby Hospital02-17-2025 Telephone encounter Note * Telephone Encounter - Jossy Raines LPN - 06/20/2024 3:52 PM EST Patient notified of recommendations, verbalizes understanding of instructions. Pt stated she needs a new Rx for 30 mg Buspar sent to [facility]. Jossy Raines LPN [facility]02-17-2025 Telephone encounter Note* Telephone Encounter - [...] her preferred pharmacy. Thank you Ivelisse Ng APRN.SHOE REPAIR SUPERVISOR [facility]02-17-2025 Telephone encounter Note* Telephone Encounter - [...] Please review and advise. Tamanna Amaro LPN [facility]02-12-2025 Instructions* Patient Instructions* Ivelisse Ng APRN.CIERRA - 06/15/2024 1:16 PM EST Stop Prozac, start Zoloft 50 mg daily. May increase BuSpar 30 mg twice daily. Recommend establishing care with counselor. Follow up in 2 weeks. documented in this encounterOhiohealth Shelby Hospital02-12-2025 History of Present illness Narrative* Ivelisse [...] visit. Either the patient or their legal union contract representative has been informed of the risks [...] minutes This note was partially generated using [employer] voice recognition system. Note was reviewed for accuracy. There may be minor misspellings or grammar miscues with [employer] voice recognition. documented in this encounterOhiohealth Shelby Hospital02-12-2025 NoteHNO ID: [id number] Author: IVELISSE NG APRN.CNP Service: ? Author [...] visit. Either the patient or their legal union contract representative has been informed of the risks [...] dizziness Mood: Increased sadness and anxiety EXAM: [facility] 05/13/2024 (Exact Date) Limited exam as [...] Attitude - cooperative, easil (more content not included)...[facility]01-10-2025 NoteHNO ID: [id number] Author: TERRELL CLOUD APRN.SHOE REPAIR SUPERVISOR Service: ? Author Type: Nurse Practitioner Type: [...] - PREDNISONE 10 MG TABLET Terrell Cloud APRN.SHOE REPAIR SUPERVISOR This note was partly generated using [employer] voice recognition dictation and may contain some misspelled or inaccurate words missed on review.[facility]01-10-2025 History of Present illness Narrative* Terrell Cloud APRN.SHOE REPAIR SUPERVISOR - 05/13/2024 1:34 PM EST Chief Complaint [...] APRN.CNP This note was partly generated using [employer] voice recognition dictation and may contain some misspelled or inaccurate words missed on review. documented in this encounterOhiohealth Shelby Hospital01-10-2025 NoteHNO ID: [id number] Author: ELAYNE SEVERINO APRN.CNP Service: ? Author [...] transfusion after due to CBC of 3. Gatekeeper History LMP: 05/13/2024 (Exact Date), Having periods Age at Menarche: Age at First : Age at Menopause: Gatekeeper History Comments: Sexual Activity: Yes; Male Contraception: [...] testing/treatment Medical Decision Making Level: 3 - [facility]Ber[facility] History of Present illness Narrative* Elayne [...] transfusion after due to CBC of 3. Gatekeeper History LMP: 05/13/2024 (Exact Date), Having periods Age at Menarche: Age at First : Age at Menopause: Gatekeeper History Comments: Sexual Activity: Yes; Male Contraception: [...] kits Follow up as needed. Elayne Severino APRN.SHOE REPAIR SUPERVISOR Medical Decision Making: Problems: Low: Acute, uncomplicated illness or injury Risk: Low: Low risk from testing/treatment Medical Decision Making Level: 3 - Low documented in this encounterOhiohealth Shelby Hospital12-12-2024 NoteHNO ID: [id number] Author: KENNETH MCKEON APRN.CIERRA Service: ? Author [...] of motion. Lymphadenopathy: Cervical (more content not included)...[facility]12[facility]12[facility] History of Present illness Narrative* Kenneth Mckeon APRN.SHOE REPAIR SUPERVISOR - 04/14/2024 12:09 PM EST Subjective HPI [...] of care. This note was generated using [employer] software. It may contain errors in wording, punctuation, or spelling. Kenneth Mckeon APRN.SHOE REPAIR SUPERVISOR documented in this encounterOhiohealth Shelby Hospital11-19-2024 Telephone encounter Note * Telephone Encounter - Terrell Cloud APRN.CNP - 03/22/2024 9:26 AM EST The following approved medication requests have been transmitted electronically. Requested Prescriptions Pending Prescriptions Disp Refills levothyroxine (SYNTHROID) 50 mcg tablet 30 tablet 11 Sig: Take 1 tablet by mouth once daily. Terrlel Cloud APRN.CNP [facility]11-19-2024 Miscellaneous Notes* Telephone Encounter - Terrell [...] 22, 2024 9:18 AM documented in this encounterOhiohealth Shelby Hospital11-19-2024 Telephone encounter Note * Telephone Encounter [...] Duke LPN March 22, 2024 9:18 AM [facility]09-20-2024 History of Present illness Narrative* Ivelisse gN APRN.SHOE REPAIR SUPERVISOR - 01/22/2024 10:00 AM EDT This is [...] APRN.CNP This note was partially generated using [employer] voice recognition system. Note was reviewed for accuracy. There may be minor misspellings or grammar miscues with [employer] voice recognition. documented in this encounterOhiohealth Shelby Hospital09-20-2024 Instructions* Patient Instructions* Ivelisse Ng APRN.CNP [...] Promotion: - Eat healthy -- go to [employer] to get started - Have a yearly [...] drive - Wear sunscreen documented in this encounterOhiohealth Shelby Hospital09-19-2024 Telephone encounter Note * Telephone Encounter - Lyric Jaquez MA - 01/21/2024 12:35 PM EDT Notified via [employer] [facility]09-19-2024 Miscellaneous Notes* Telephone Encounter - Lyric Jaquez MA - 01/21/2024 12:35 PM EDT Notified via [employer] * Telephone Encounter - Terrell Cloud APRN.CNP [...] 01/18/2024 11:48 AM EDT Pt notified via conXthart she needs appt for refills. Advised to call in and schedule. Lyric Jaquez MA documented in this encounterOhiohealth Shelby Hospital09-18-2024 Telephone encounter Note * Telephone Encounter [...] by mouth once daily. Ivelisse Ng APRN.CNP [facility]09-18-2024 Miscellaneous Notes* Telephone Encounter - Ivelisse [...] daily. Ivelisse Ng APRN.CNP documented in this encounterOhiohealth Shelby Hospital09-18-2024 Telephone encounter Note * Telephone Encounter - Terrell Cloud APRN.CNP - 01/20/2024 10:30 AM EDT Please let her know that I have sent in a refill Terrell Cloud APRN.CNP [facility]09-18-2024 Telephone encounter Note* Telephone Encounter - [...] Raines LPN January 20, 2024 10:24 AM [facility]09-18-2024 Telephone encounter Note* Telephone Encounter - Koki Knott - 01/20/2024 8:43 AM EDT Patient is schedule for 01-22-24 and wants to know if she has to wait for refills until she is seen?Please let patient know. Thank you. Koki Galan [facility]09-16-2024 Telephone encounter Note* Telephone Encounter - Lyric Jaquez MA - 01/18/2024 11:48 AM EDT Pt notified via Semadic she needs appt for refills. Advised to call in and schedule. Lyric Jaquez MA [facility]09-12-2024 Telephone encounter Note* Telephone Encounter - Arina Sorenson RN - 01/14/2024 3:38 PM EDT Left message for patient to call office again. I did leave detail that I moved her appt to 1130 tomorrow and to call back to let office know that works. [employer] message sent too. Arina Sorenson RN [facility]09-12-2024 Miscellaneous Notes* Telephone Encounter - Arina Sorenson RN - 01/14/2024 3:38 PM EDT Left message for patient to call office again. I did leave detail that I moved her appt to 1130 tomorrow and to call back to let office know that works. [employer] message sent too. Arina Sorenson RN * Telephone Encounter - Arina Sorenson RN - 01/14/2024 12:04 PM EDT She is scheduled for virtual visit with tomorrow at 1245 and provider has a meeting. Left message for patient to call office to reschedule. Can use any other open time with RM tomorrow and keep asvirtual visit still. Arina Sorenson RN documented in this encounterOhiohealth Shelby Hospital09-12-2024 Telephone encounter Note * Telephone Encounter - Arina Sorenson RN - 01/14/2024 12:04 PM EDT She is scheduled for virtual visit with RM tomorrow at 1245 and provider has a meeting. Left message for patient to call office to reschedule. Can use any other open time with RM tomorrow and keep asvirtual visit still. Arina Sorenson RN [facility]07-23-2024 History of Present illness Narrative* Elayne Severino APRN.CIERRA - 11/24/2023 4:30 PM EDT VIRTUAL VISIT PROGRESS NOTE This is a virtual visit using BioLeap Zoom Video Visit. It required patient- provider interaction for the medical decision making as documented below. I have communicated my name and active licensure. The patient's identity and physical location wereverified at the time of this visit. Either the patient or their legal union contract representative has been informed of the risks [...] ALLERGIES No Known Allergies REVIEW OF SYSTEMS: NURSE'S COMPANION: denies abnormal vaginal bleeding, no vaginal discharge [...] which included preparing to see the patient, [id number] patient care, completing clinical documentation, obtaining and/or reviewing separately obtained history, and counseling and educating the patient/family/caregiver Elayne Severino APRN.CIERRA documented in this encounterOhiohealth Shelby Hospital07-22-2024 Telephone encounter Note * Telephone Encounter - Vincent Hale RN - 11/23/2023 2:48 PM EDT Pt notified and appt scheduled to discuss results further. Vincent Hale RN [facility]07-22-2024 Miscellaneous Notes* Telephone Encounter - Vincent Hale RN - 11/23/2023 2:48 PM EDT Pt notified and appt scheduled to discuss results further. Vincent Hale RN * Telephone Encounter - Vincent Hale RN - 11/23/2023 2:15 PM EDT Left message for patient to call office. M[employer] message also went to patient. Vincent Hale [...] today. Steffanie Lozada RN documented in this encounterOhiohealth Shelby Hospital07-22-2024 Telephone encounter Note * Telephone Encounter - Vincent Hale RN - 11/23/2023 2:15 PM EDT Left message for patient to call office. Mychart message also went to patient. Vincent Hale RN [facility]07-22-2024 Telephone encounter Note* Telephone Encounter - Elayne Severino APRN.CNP - 11/23/2023 1:16 PM EDT Please let the pt know that her US does not show polycystic ovaries but does show adenomyosis. If she wants to discuss the results more she can schedule a virtual/office visit. Elayne Severino APRN.CIERRA [facility]07-19-2024 Telephone encounter Note* Telephone Encounter - Steffanie Lozada RN - 11/20/2023 11:01 AM EDT Please review Pelvic US results. Patient called. RM was not the original ordering provider, but patient states she is no longer seeing that provider. Aware RM is out of office today. Steffanie Lozada RN [facility]07-18-2024 History of Present illness Narrative* Radha Tejada MD - 11/19/2023 11:18 PM EDT The patient presents for requested ultrasound. Full report available in the Imaging tab in Epic. Radha Tejada MD documented in this encounterOhiohealth Shelby Hospital07-15-2024 Telephone encounter Note * Telephone Encounter - Ivelisse Ng APRN.CNP - 11/16/2023 8:28 AM EDT The following approved medication requests have been transmitted electronically. Requested Prescriptions Pending Prescriptions Disp Refills busPIRone (BUSPAR) 15 mg tablet 90 tablet 0 Sig: Take 1 tablet by mouth three times a day. Ivelisse Ng APRN.CNP [facility]07-15-2024 Miscellaneous Notes* Telephone Encounter - Ivelisse Ng APRN.CNP - 11/16/2023 8:28 AM EDT The following approved medication requests have been transmitted electronically. Requested Prescriptions Pending Prescriptions Disp Refills busPIRone (BUSPAR) 15 mg tablet 90 tablet 0 Sig: Take 1 tablet by mouth three times a day. Ivelisse Ng APRN.CNP * Telephone Encounter - Jossy Raines LPN - 11/16/2023 8:21 AM EDT [facility]-08/26/22 Labs-06/17/23 NOV- chart message sent to schedule appt. Jossy Raines LPN documented in this encounterOhiohealth Shelby Hospital07-15-2024 Telephone encounter Note * Telephone Encounter - Jossy Raines LPN - 11/16/2023 8:21 AM EDT [facility]-08/26/22 Labs-06/17/23 NOV- chart message sent to schedule appt. Jossy Raines LPN [facility]07-11-2024 Telephone encounter Note* Telephone Encounter - Elayne Severino APRN.CNP - 11/12/2023 2:59 PM EDT I spoke with the patient regarding her recent labs and reviewed them with her. Patient still has a pending order for pelvic ultrasound, I informed her that she can call and schedule that at her convenience. Discussed possible PCOS diagnosis based on elevated DHEA level. Elayne Severino APRN.CNP [facility]07-11-2024 Miscellaneous Notes* Telephone Encounter - Elayne [...] would like to speak to someone in [facility] office to go over her lab results. Please call her at [phone]. documented in this encounterOhiohealth Shelby Hospital07-11-2024 Telephone encounter Note * Telephone Encounter - Arina Sorenson RN - 11/12/2023 1:32 PM EDT Patient also called into office asking for RM to review blood work results from 11/09. She has not heard from Dr. Yoon's office yet either regarding these. Arina Sorenson RN [facility]07-11-2024 Telephone encounter Note* Telephone Encounter - Anselmo AdamaAnne - 11/12/2023 12:57 PM EDT Patient would like to speak to someone in [facility] office to go over her lab results. Please call her at [phone]. [facility]07-11-2024 Telephone encounter Note* Telephone Encounter - Genie Jackson MD - 11/12/2023 9:00 AM EDT OK to refill as ordered Genie Jackson MD [facility]07-11-2024 Miscellaneous Notes* Telephone Encounter - Genie Jackson MD - 11/12/2023 9:00 AM EDT OK to refill as ordered Genie Jackson MD * Telephone Encounter - Tess Vásquez LPN - 11/12/2023 8:35 AM EDT Patient calling has changed pharmacy to [facility] [place], she has been out of medication for [...] 12, 2023 8:38 AM documented in this encounterOhiohealth Shelby Hospital07-11-2024 Telephone encounter Note * Telephone Encounter - Tess Vásquez LPN - 11/12/2023 8:35 AM EDT Patient calling has changed pharmacy to [facility] [place], she has been out of medication for [...] Vásquez LPN November 12, 2023 8:38 AM [facility]07-09-2024 History of Present illness Narrative* Elayne Severino APRN.SHOE REPAIR SUPERVISOR - 11/10/2023 3:35 PM EDT Set Designer offered: Patient declines. Janet is a 23 [...] transfusion after due to CBC of 3. Gatekeeper History LMP: 11/01/2023, Having periods Age at Menarche: Age at First : Age at Menopause: Gatekeeper History Comments: Sexual Activity: Yes; Male Contraception: [...] external genitalia normal, normal Bartholin's glands, urethra, [place]'s glands, no vulvar lesions, no cervical lesions, [...] year or sooner as needed Elayne Severino APRN.SHOE REPAIR SUPERVISOR documented in this encounterOhiohealth Shelby Hospital07-03-2024 History of Present illness Narrative* Rohan Yoon MD - 11/04/2023 3:30 PM EDT Gynecology Virtual Visit This is a virtual visit using Beam Express[employer] Zoom Video Visit. It required patient- provider interaction for the medical decision making as documented below. I have communicated my name and active licensure. The patient's identity and physical location wereverified at the time of this visit. Either the patient or their legal union contract representative has been informed of the risks [...] Gynecologic Surgery Department of Obstetrics and Gynecology [place], [place] 11/04/2023 documented in this encounterOhiohealth Shelby Hospital06-05-2024 History of Present illness Narrative* Bhargavi Monique APRN.SHOE REPAIR SUPERVISOR - 10/07/2023 11:49 AM EDT This note was created using Oxford Networksriter. Subjective Janet Frank is a 23 year [...] She states that she returned to the flooring installer last week to have them taken out, and the flooring installer said they were not infected. Since then [...] history is provided by the patient. No pediatric speech language pathologist was used. Ear Pain [...] up with ENT. Luba Aguilar TEACHING PROVIDER (Physician/PA/FAMILY LAW ATTORNEY) NOTE OF PERSONAL INVOLVEMENT IN CARE: I have personally seen and examined the patient and performed the medical decision-making components. I have reviewed the Advanced Practice Registered Nurse (FAMILY LAW ATTORNEY) Student's documentation and verified the findings in the note as written. Any additions or changes are noted in bold/italics. Signature: Bhargavi Monique Date: 10/07/2023 Time: 1:35 PM documented in this encounterOhiohealth Shelby Hospital03-21-2024 Miscellaneous Notes* Telephone Encounter - Lyric [...] capsule by mouth once daily. Ivelisse Ng APRN.SHOE REPAIR SUPERVISOR * Telephone Encounter - Elisa Ashby RN - 07/23/2023 11:48 AM EDT Patient reports she hasn't had fluoxetine for a couple days and is not feeling well and not having a good day. Asking if this can be sent today? HECTOR Rodriguez. Please phone patient to let her know it was sent. [phone] * Telephone Encounter - Lyric Jaquez MA [...] NEEDS AN APPT. NOTIFIED OF THIS VIA [employer] Evolution HoldingsT. Please advise. Thank you. Lyric Jaquez MA. documented in this encounterOhiohealth Shelby Hospital03-04-2024 Hospital Discharge instructions Patient Education 07/06/2023 [...] face You have trouble talking or seeing [phone] [employer] [place] [address]. All rights reserved. This information is not intended as a substitute for professional medical care. Always follow yourhealthcare professional's instructions. Follow Up Care 07/06/2023 01:12:48 With:GENIE JACKSON MD Address: [address] [place] [id number] When:2-[address] [facility] 03-04-2024 Note Discharge Instructions Thank you for allowing [facility] to assist you with your healthcare needs. The following is importantdischarge information regarding your hospital visit. Diagnosis from Today's Visit Headache Headache What to Do Next Instructions from Your Care Team No qualifying data available. Post Acute Orders No qualifying data available. You Need to Schedule the Following Appointments Follow Up with GENIE JACKSON MD When Within 2-4 days Where: [facility] [place], [place] [id number]- Allergies No Known Medication Allergies Medications Please [...] face You have trouble talking or seeing [phone] [employer] [place] [address]. All rights reserved. This information is not intended as a substitute for professional medical care. Always follow yourhealthcare professional's instructions. Additional Information VACCINATE! IT SAVES LIVES! Members of the community who have not yet received the COVID-19 vaccine and would like to receive it can visit one of [facility] vaccine clinics. There are many vaccine clinic locations within the [facility]. For locations and available times, please visit www.gettheshot.coronavirus.[place].gov/. It is important to note that some COVID mobile vaccine clinics are held outdoors and may be canceled in rainy or stormy conditions. To learn more about pediatric vaccinations (ages 5-11), we invite you to visit the [facility] webpage. https://www.[email or web address].org/pages/0805-Pfvqc-Grikgurnlao-Qzuiztcalz-Xgxsj-Qul stions.htmlTo learn more about the COVID-19 vaccine, we invite you to visit the CDC website for a list of frequently asked questions. https://www.cdc.gov/coronavirus/2019-ncov/vaccines/faq.html [facility] [employer] Patient Portal Access Instructions: Stay connected with your healthcare team and access your personal medical information anytime with the [facility] [employer] Patient Portal. If you would like a full copy of your medical records please contact the [facility] Medical Records Department Thursday through Thursday between 8a.m. and 4:30p.m. Please follow the directions below to access the portal: 1.Access the email account you provided upon registration to the hospital.2.Look for an invitation email from [facility].3.Open the email and access the invitation link: Accept Invitation to [employer]4.Fill in the required gatica to create your account. Sign into [email or web address] with your username and password that you [...] you will allow to register on the [employer] Patient Portal for access to your information. You can also access the [employer] Patient Portal on the CR2. Simply click on Health Records under [employer] and then click on the [employer] logo. HOW TO SAFELY DISPOSE OF PRESCRIPTION [...] Call your local pharmacy or go to [email or web address] to find one close to you.3.Make use of household items: Use cat litter or old coffee grounds to dispose medications if other options arenot available. Mix your drugs with these household products, seal them in an airtight container andthrow it into the garbage. Call [facility]: [phone] to be sure your drugs can be [...] am aware that I should contactmy doctor. Patient/Structural Drafter Signature: Date/Time: Relationship to Patient: Witness Name/Signature: Date/Time: [facility]02-29-2024 History of Present illness Narrative * Bhargavi Monique APRN.[facility] - 07/02/2023 8:42 AM EST This [...] R51.9 Bhargavi Monique APRN.CIERRA documented in this encounterOhiohealth Shelby Hospital02-15-2024 Miscellaneous Notes* Telephone Encounter - Jossy [...] you. Ivelisse Ng APRN.CIERRA documented in this encounterOhiohealth Shelby Hospital02-14-2024 Miscellaneous Notes* Telephone Encounter - Jossy [...] states she had been referred to the NURSE'S COMPANION dept but they told her to contact PCP as labwork can be orderedto confirm if or not. In talking with pt, she states she is not trying to get butis not using any protection or control at this time. [facility] she was on the Depoprovera shot for about 6 years but last shot was in July. Pt does not have an established NURSE'S COMPANION provider as she used to go to [place] [facility] in [place] but that office has closed. In reviewing [...] for sure will need to establish with [facility]. Pt plans on coming in for lab work tomorrow. Please place order for testing as well as yearly blood work so it can be completed prior to yearly appt next week with Ivelisse Ng. Call pt only if problem, further instructions or needs to be fasting for any labs. documented in this encounterOhiohealth Shelby Hospital02-13-2024 Miscellaneous Notes* Telephone Encounter - Lyric Jaquez Ma - 06/16/2023 4:24 PM EST Pt notified. Lyric Jaquez Ma * Telephone Encounter - Genie Jackson MD - 06/16/2023 3:58 PM EST Yes, she should check with [facility] Genie Jackson MD * Telephone Encounter - Annemarie Sotelo Ma - 06/16/2023 1:27 PM EST Reviewed with NURSE'S COMPANION Nurse, who states she reached out to pt due to TE on 06/12/23. She tried calling ptbut was hung up on. Does pt need to reach out to NURSE'S COMPANION to schedule an appt? Please advise. Annemarie [...] calling: self Call patient at: on cell [phone] (cell) Was an appointment scheduled: No Closing statement: Results or non-symptom based questions: Thank you for calling [facility], your call will be returned within the next business day. Luisana Snow documented in this encounterOhiohealth Shelby Hospital02-09-2024 Miscellaneous Notes* Telephone Encounter - Elisa [...] hasn't stopped yet. Notified nurse Zulema, in NURSE'S COMPANION, and Zulema agreeable to call patient. documented in this encounterOhiohealth Shelby Hospital11-30-2023 Miscellaneous Notes* Telephone Encounter - Terrell [...] none Lyric Jaquez Ma documented in this encounterOhiohealth Shelby Hospital11-24-2023 Miscellaneous Notes* Telephone Encounter - Genie Jackson MD - 03/27/2023 10:56 AM EST OK to refill as ordered Genie Jackson MD * Telephone Encounter - Jossy Raines LPN - 03/27/2023 8:58 AM EST [facility]-08/26/22 Labs-10/22/22 NOV-none Jossy Raines LPN documented in this encounterOhiohealth Shelby Hospital09-13-2023 Miscellaneous Notes* Telephone Encounter - Terrell Cloud APRN.SHOE REPAIR SUPERVISOR - 01/14/2023 11:39 AM EDT The following [...] Patient should contact Prescriber first Terrell Cloud APRN.SHOE REPAIR SUPERVISOR * Telephone Encounter - Jeana Frey RN [...] of Last Labs: 10/22/2022 documented in this encounterOhiohealth Shelby Hospital06-01-2023 Miscellaneous Notes* Telephone Encounter - Hailey [...] Macrobid. Hailey Gillespie RN documented in this encounterOhiohealth Shelby Hospital05-30-2023 History of Present illness Narrative* Ruth Vallejo PA-C - 09/30/2022 2:04 PM EDT This note was created using Oxford Networksriter. Subjective Janet Frank is a 22 year [...] CULTURE Ruth Vallejo PA-C documented in this encounterOhiohealth Shelby Hospital05-06-2023 History of Present illness Narrative* Marjorie Sanchez APRN.SHOE REPAIR SUPERVISOR - 09/06/2022 1:35 PM EDT Patient came [...] with this care plan. documented in this encounterOhiohealth Shelby Hospital04-25-2023 Instructions* Patient Instructions* Terrell Cloud APRN.CNP - 08/26/2022 1:33 PM EDT Schedule EMG, if positive for carpal tunnel syndrome, I will refer to Dr Walton Recheck potassium at end of week Terrell Cloud APRN.CNP documented in this encounterOhiohealth Shelby Hospital04-25-2023 History of Present illness Narrative* Terrell Cloud APRN.CNP - 08/26/2022 1:14 PM EDT Chief Complaint Patient presents with: ER F/U: 08/22/22 [facility]; abdominal pain HPI Janet Frank is a 22 year old female who presents here today for ER Follow Up. HOSPITAL/ER FOLLOW UP: Reason for visit: Abdominal pain, nausea and vomiting. Vomiting occurring after consuming meals. Also loose stools. Concerned due to being on penicillin for mouth infection. Which facility: [facility] Date of visit: 08/22/2022 Diagnosis: 1. Abdominal [...] which included preparing to see the patient, [id number] patient care, completing clinical documentation, obtaining and/or reviewing separately obtained history, performing a medically appropriate examination, counseling and educating the pat ient/family/caregiver, and ordering medications, tests, or procedures. This note was partly generated using Fusebill voice recognition dictation and may contain some misspelled or inaccurate words missed on review. documented in this encounterOhiohealth Shelby Hospital03-28-2023 Miscellaneous Notes* Telephone Encounter - Chaya Reid MA - 07/29/2022 9:30 AM EDT Patient phones requesting refills as follows: Requested Prescriptions Pending Prescriptions Disp Refills esomeprazole (NEXIUM) 40 mg capsule 60 capsule 1 Sig: Take 1 capsule by mouth twice daily. 1/2 hr before meal. Please review and advise. Chaya Reid MA documented in this encounterOhiohealth Shelby Hospital03-22-2023 Miscellaneous Notes* Telephone Encounter - Terrell [...] you. Sonia Tamayo LPN documented in this encounterOhiohealth Shelby Hospital01-05-2023 Miscellaneous Notes* Telephone Encounter - Maria Ines Henning Ma - 05/08/2022 9:00 AM EST Patient phones requesting refills as follows: Requested Prescriptions Pending Prescriptions Disp Refills esomeprazole (NEXIUM) 40 mg capsule 60 capsule 1 Sig: Take 1 capsule by mouth twice daily. 1/2 hr before meal. Please review and advise. Maria Ines Henning Ma documented in this encounterOhiohealth Shelby Hospital11-04-2022 History of Present illness Narrative* Genie [...] Past Histories independently gathered by the clinical ground support agent and the remaining scribed note accurately describes my personal service to the patient. Genie Jackson MD The documentation for this note was completed by Lyric Jaquez Ma acting as scribe for Genie Jackson MD. March 07, 2022 3:26 PM. Lyric Jaquez Ma documented in this encounterOhiohealth Shelby Hospital10-17-2022 Miscellaneous Notes* Telephone Encounter - Maria Ines Henning Ma - 02/17/2022 8:02 AM EDT Patient phones requesting refills as follows: Requested Prescriptions Pending Prescriptions Disp Refills esomeprazole (NEXIUM) 40 mg capsule 60 capsule 1 Sig: Take 1 capsule by mouth twice daily. 1/2 hr before meal. Please review and advise. Maria Ines Henning Ma documented in this encounterOhiohealth Shelby Hospital10-12-2022 History of Present illness Narrative* Michelle Hayes, FAMILY LAW ATTORNEY.SHOE REPAIR SUPERVISOR - 02/12/2022 2:04 PM EDT 02/12/2022 Patient [...] MG-POTASSIUM CLAVULANATE 125 MG TABLET Michelle Hayes APRN.SHOE REPAIR SUPERVISOR Prescription instructions reviewed with patient as applicable. [...] which included preparing to see the patient, [id number] patient care, completing clinical documentation, obtaining and/or reviewing separately obtained history, performing a medically appropriate examination, counseling and educating the pat ient/family/caregiver, and ordering medications, tests, or procedures. documented in this encounterOhiohealth Shelby Hospital10-05-2022 History of Present illness Narrative* Ruth Vallejo PA-C - 02/05/2022 12:21 PM EDT This note was created using Oxford Networksriter. Subjective Janet Frank is a 22 year [...] Ruth Vallejo PA-C documented in this encounterCleveland [id number] History of Present illness Narrative* Ruth Vallejo PA-C - 02/02/2022 11:58 AM EDT This note was created using Oxford Networksriter. Subjective Janet Frank is a 22 year [...] persist. MELVIN Huber PA-C documented in this encounterOhiohealth Shelby Hospital08-23-2022 History of Present illness Narrative* Ruth Vallejo PA-C - 12/24/2021 4:51 PM EDT This note was created using Oxford Networksriter. Subjective Janet Frank is a 21 year old female. HPI Patient presents with left wrist pain for 2 months. 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 She denies injury [...] LEFT Ruth Vallejo PA-C documented in this encounterOhiohealth Shelby Hospital08-23-2022 History of Present illness Narrative* Xavier [...] 24, 2021 2:25 PM documented in this encounterOhiohealth Shelby Hospital08-23-2022 Miscellaneous Notes* Telephone Encounter - Madina Duke LPN - 12/24/2021 9:17 AM EDT Please review and advise pt. PT is out of medication. Madina Duke LPN * Telephone Encounter - Anastasia Berg - 12/18/2021 12:45 PM EDT Patient has been out of medication for past 3 days. documented in this encounterOhiohealth Shelby [facility] Misc[facility] Notes* Telephone Encounter - Lyric [...] Please advise and return her call at [phone] documented in [facility] encounter[facility] Miscellaneous Notes* Telephone Encounter - Terrell [...] advise. Jossy Raines LPN documented in this encounterOhio[facility]07-26-2022 History of Present illness Narrative* Genie [...] had these in the past. Working at [employer]. Thyroid: Taking Synthroid 50 mcg daily. TSH [...] AM. Lyric Jaquez Ma documented in this encounterOhio[facility]05-25-2022 Miscellaneous Notes* Telephone Encounter - Annemarie Sotelo Ma - 09/25/2021 3:47 PM EDT See pt message and advise. Annemarie Sotelo Ma documented in this encounterOhio[facility]05-25-2022 History of Present illness Narrative* Cori [...] which included preparing to see the patient, [id number] patient care, completing clinical documentation, obtaining and/or reviewing separately obtained history, performing a medically appropriate examination, counseling and educating the pat ient/family/caregiver, ordering medications, tests, or procedures, communicating with other HCPs (not separately reported), independently interpreting results (not separately reported), communicatingresults to the patient/family/caregiver, and care coordination (not separately reported). Cori Ramesh APRN.CIERRA documented in this encounterOhio[facility] Hospital05-19-2022 Miscellaneous Notes* Telephone Encounter - Jossy [...] review. Kendra Oviedo RN documented in this encounterOhiohealth Shelby Hospital05-17-2022 History of Present illness Narrative* Terrell Cloud APRN.SHOE REPAIR SUPERVISOR - 09/17/2021 1:54 PM EDT Chief Complaint [...] a patient relationship with Dr Ybarra at [facility]. She will call to schedule an appointment at their clinic. Check CBC. - CONSULT TO ENT 2. Hypothyroidism, unspecified type - ICD9: 244.9, ICD10: E03.9 - Instructed patient on importance of taking on an empty stomach either first thing in the morning or at bedtime. - check TSH today - continue current dose of Synthroid 0.050 mg Terrell Cloud APRN.SHOE REPAIR SUPERVISOR This note was partly generated using F[employer]eb[employer] voice recognition dictation and may contain some misspelled or inaccurate words missed on review. documented in this encounterOhiohealth Shelby Hospital04-22-2022 Miscellaneous Notes* Telephone Encounter - Lyric Jaquez Ma - 08/23/2021 9:29 AM EDT Pt notified via conXthart that she is not able to restart Adipex until October 2021. Last rx given in Apr 2021. Also notified she would need an appointment to discuss restarting the medication. Lyric Jaquez Ma documented in this encounterOhio[facility] Hospital04-08-2022 Miscellaneous Notes* Telephone Encounter - Adry [...] patient. Hanna Corcoran Pss documented in this encounterOhiohealth [facility] Hospital03-22-2017 History of Past illness Narrative* Problem Noted Date Resolved Date Physical exam 07/23/2016 10/12/2017 documented as of this encounter (statuses as of 08/09/2021) [facility] of [facility] Narrative* Problem Noted Date Resolved Date Physical exam 07/23/2016 10/12/2017 documented as of this encounter (statuses as of 08/23/2021) [address]-2017 History of Past illness Narrative* Problem Noted Date Resolved Date Physical exam 07/23/2016 10/12/2017 documented as of this encounter (statuses as of 09/17/2021) [address]-2017 History of Past illness Narrative* Problem Noted Date Resolved Date Physical exam 07/23/2016 10/12/2017 documented as of this encounter (statuses as of 10/01/2021) [address] History of Past illness Narrative* Problem Noted Date Resolved Date Physical exam 07/23/2016 10/12/2017 documented as of this encounter (statuses as of 10/08/2021) [address]-2017 History of Past illness Narrative* Problem Noted Date Resolved Date Physical exam 07/23/2016 10/12/2017 documented as of this encounter (statuses as of 11/26/2021) [address]-2017 History of Past illness Narrative* Problem Noted Date Resolved Date Physical exam 07/23/2016 10/12/2017 documented as of this encounter (statuses as of 11/27/2021) [address]-2017 History of Past illness Narrative* Problem Noted Date Resolved Date Physical exam 07/23/2016 10/12/2017 documented as of this encounter (statuses as of 12/05/2021) [address]-2017 History of Past illness Narrative* Problem Noted Date Resolved Date Physical exam 07/23/2016 10/12/2017 documented as of this encounter (statuses as of 12/19/2021) [address]-2017 History of Past illness Narrative* Problem Noted Date Resolved Date Physical exam 07/23/2016 10/12/2017 documented as of this encounter (statuses as of 12/20/2021) [address]22-2017 History of Past illness Narrative* Problem Noted Date Resolved Date Physical exam 07/23/2016 10/12/2017 documented as of this encounter (statuses as of 12/24/2021) [address]-2017 History of Past illness Narrative* Problem Noted Date Resolved Date Physical exam 07/23/2016 10/12/2017 documented as of this encounter (statuses as of 12/24/2021) [address]-2017 History of Past illness Narrative* Problem Noted Date Resolved Date Physical exam 07/23/2016 10/12/2017 documented as of this encounter (statuses as of 02/02/2022) [address]-2017 History of Past illness Narrative* Problem Noted Date Resolved Date Physical exam 07/23/2016 10/12/2017 documented as of this encounter (statuses as of 02/05/2022) [address]-2017 History of Past illness Narrative* Problem Noted Date Resolved Date Physical exam 07/23/2016 10/12/2017 documented as of this encounter (statuses as of 02/12/2022) [address]-2017 History of Past illness Narrative* Problem Noted Date Resolved Date Physical exam 07/23/2016 10/12/2017 documented as of this encounter (statuses as of 02/17/2022) [address]-2017 History of Past illness Narrative* Problem Noted Date Resolved Date Physical exam 07/23/2016 10/12/2017 documented as of this encounter (statuses as of 03/07/2022) [address] History of Past illness Narrative* Problem Noted Date Resolved Date Physical exam 07/23/2016 10/12/2017 documented as of this encounter (statuses as of 05/09/2022) [address]-2017 History of Past illness Narrative* Problem Noted Date Resolved Date Physical exam 07/23/2016 10/12/2017 documented as of this encounter (statuses as of 07/23/2022) [address]2017 History of Past illness Narrative* Problem Noted Date Resolved Date Physical exam 07/23/2016 10/12/2017 documented as of this encounter (statuses as of 07/23/2022) [address]-2017 History of Past illness Narrative* Problem Noted Date Resolved Date Physical exam 07/23/2016 10/12/2017 documented as of this encounter (statuses as of 07/29/2022) [address]2017 History of Past illness Narrative* Problem Noted Date Resolved Date Physical exam 07/23/2016 10/12/2017 documented as of this encounter (statuses as of 08/26/2022) [address]2017 History of Past illness Narrative* Problem Noted Date Resolved Date Physical exam 07/23/2016 10/12/2017 documented as of this encounter (statuses as of 09/06/2022) [address]2017 History of Past illness Narrative* Problem Noted Date Resolved Date Physical exam 07/23/2016 10/12/2017 documented as of this encounter (statuses as of 10/01/2022) [address]2017 History of Past illness Narrative* Problem Noted Date Resolved Date Physical exam 07/23/2016 10/12/2017 documented as of this encounter (statuses as of 10/02/2022) [address]2017 History of Past illness Narrative* Problem Noted Date Diagnosed Date Resolved Date Physical exam 07/23/2016 10/12/2017 documented as of this encounter (statuses as of 01/14/2023) [address]2017 History of Past illness Narrative* Problem Noted Date Diagnosed Date Resolved Date Physical exam 07/23/2016 10/12/2017 documented as of this encounter (statuses as of 03/27/2023) [address]2017 History of Past illness Narrative* Problem Noted Date Diagnosed Date Resolved Date Physical exam 07/23/2016 10/12/2017 documented as of this encounter (statuses as of 04/02/2023) [address]2017 History of Past illness Narrative* Problem Noted Date Diagnosed Date Resolved Date Physical exam 07/23/2016 10/12/2017 documented as of this encounter (statuses as of 06/12/2023) [address]2017 History of Past illness Narrative* Problem Noted Date Diagnosed Date Resolved Date Physical exam 07/23/2016 10/12/2017 documented as of this encounter (statuses as of 06/16/2023) [address]2017 History of Past illness Narrative* Problem Noted Date Diagnosed Date Resolved Date Physical exam 07/23/2016 10/12/2017 documented as of this encounter (statuses as of 06/17/2023) [address]2017 History of Past illness Narrative* Problem Noted Date Diagnosed Date Resolved Date Physical exam 07/23/2016 10/12/2017 documented as of this encounter (statuses as of 06/18/2023) [address]2017 History of Past illness Narrative* Problem Noted Date Diagnosed Date Resolved Date Physical exam 07/23/2016 10/12/2017 documented as of this encounter (statuses as of 07/02/2023) [facility] N[facility]* Problem Noted Date Diagnosed Date Resolved Date Physical exam 07/23/2016 10/12/2017 documented as of this encounter (statuses as of 07/23/2023) [facility] Narrative* Problem Noted Date Diagnosed Date Resolved Date Physical exam 07/23/2016 10/12/2017 documented as of this encounter (statuses as of 07/23/2023) [facility] No data available for this section [facility] Evaluation note* Diagnosis Tension headache documented in [facility] encounter [facility]* Diagnosis Tonsil stone- Primary Other chronic disease of tonsils and adenoids Hypothyroidism, unspecified type documented in [facility] encounter [facility]* Diagnosis Fatigue, unspecified type- Primary documented in [facility] encounter [facility]* Diagnosis Burping- Primary Flatulence, eructation, and gas pain Gastroesophageal reflux disease, unspecified whether esophagitis present Early satiety GERD without esophagitis Esophageal reflux documented in [facility] encounter [facility]* Diagnosis Recurrent major depressive disorder, remission status unspecified (HCC)- Primary documented in [facility] encounter [facility]* Diagnosis RUDOLPH (generalized anxiety disorder) Generalized anxiety disorder Panic attack Panic disorder without agoraphobia documented [facility] encounter [facility]* Diagnosis Gastroesophageal reflux disease, unspecified whether esophagitis present- Primary documented in [facility]* Diagnosis GERD without esophagitis Esophageal reflux documented in [facility]* Diagnosis GERD without esophagitis Esophageal reflux documented [facility]* Diagnosis Left wrist pain- Primary Pain in joint, forearm documented in [facility]* Diagnosis Viral URI with cough- Primary Acute upper respiratory infections of unspecified site Bacterial conjunctivitis Other conjunctivitis documented [facility]* Diagnosis Acute otitis media, left- Primary Unspecified otitis media documented [facility]* Diagnosis Frontal sinus pain- Primary Other diseases of nasal cavity and sinuses Left ear pain Otalgia, unspecified documented in [facility] encounter [facility]* Diagnosis GERD without esophagitis Esophageal reflux documented in this encounter [facility] noteNo assessment information availableWKeenan Private Hospital Work Phone: [facility] [place] [facility]* Diagnosis Recurrent major depressive disorder, remission status unspecified (HCC) documented in [facility] encounter [facility]* Diagnosis GERD without esophagitis Esophageal reflux documented [facility]* Diagnosis RUDOLPH (generalized anxiety disorder) Generalized anxiety disorder Panic attack Panic disorder without agoraphobia documented [facility]* Diagnosis RUDOLPH (generalized anxiety disorder) Generalized anxiety disorder Panic attack Panic disorder without agoraphobia documented [facility]* Diagnosis Hypokalemia- Primary Hypopotassemia Nausea and vomiting, unspecified vomiting type Hospital discharge follow-up Other follow-up examination Paresthesia Disturbance of skin sensation Hand pain, left Pain in limb documented [facility]* Diagnosis Confusion- Primary Unspecified psychosis documented [facility] encounter [facility]* Diagnosis Acute UTI- Primary Urinary tract infection, site not specified documented in [facility]* Diagnosis Chronic constipation Unspecified constipation documented [facility]* Diagnosis Hypothyroidism, unspecified type documented [facility]* Diagnosis RUDOLPH (generalized anxiety disorder) Generalized anxiety disorder Panic attack Panic disorder without agoraphobia documented [facility]* Diagnosis Irregular menses- Primary Irregular menstrual cycle Vaginal bleeding Other specified noninflammatory disorder of vagina documented in [facility]* Diagnosis Visual disturbance- Primary Unspecified visual disturbance Dizziness Dizziness and giddiness Headache, unspecified headache type documented in this [facility]* Diagnosis Recurrent major depressive disorder, remission status unspecified (HCC) documented in [facility] encounter [facility]* Diagnosis Recurrent major depressive disorder, remission status unspecified (HCC) documented [facility]* Diagnosis Nipple pain- Primary Mastodynia Ear pain, bilateral documented [facility]* Diagnosis Irregular menses- Primary Irregular menstrual cycle Acquired hypothyroidism Unspecified hypothyroidism Class II obesity Menorrhagia with irregular cycle Excessive or frequent menstruation Dysmenorrhea documented in this encounter [facility]* Diagnosis Encounter for gynecological examination (general) (routine) without abnormal findings- Primary Screening for cervical cancer Screening for malignant neoplasm of the cervix Encounter for screening for human papillomavirus (HPV) Special screening examination for human papillomavirus (HPV) [facility] [place] [facility]* Diagnosis Chronic constipation Unspecified constipation [facility] [place] [facility]* Diagnosis Chronic constipation Unspecified constipation [facility] [place] [facility]* Diagnosis RUDOLPH (generalized anxiety disorder) Generalized anxiety disorder Panic attack Panic disorder without agoraphobia [facility] [place] [facility]* Diagnosis Irregular menses- Primary Irregular menstrual cycle Class II obesity Menorrhagia with irregular cycle Excessive or frequent menstruation Dysmenorrhea Adenomyosis of the uterus documented [facility] [place] [facility]* Diagnosis Adenomyosis- Primary Endometriosis of uterus documented [facility] [place] [facility]* Diagnosis RUDOLPH (generalized anxiety disorder) Generalized anxiety disorder Panic attack Panic disorder without agoraphobia [facility] [place] [facility]* Diagnosis Recurrent major depressive disorder, remission status unspecified (HCC) RUDOLPH (generalized anxiety disorder) Generalized anxiety disorder Panic attack Panic disorder without agoraphobia [facility] [place] [facility]* Diagnosis RUDOLPH (generalized anxiety disorder) Generalized anxiety disorder Panic attack Panic disorder without agoraphobia Recurrent major depressive disorder, remission status unspecified (HCC) documented [facility] [place] [facility]* Diagnosis Recurrent major depressive disorder, remission status unspecified (HCC) Wellness examination- Primary Chronic constipation Unspecified constipation Hypothyroidism, unspecified type Anxiety with depression Gastroesophageal reflux disease, unspecified whether esophagitis present documented [facility]* Diagnosis Encounter for contraceptive management, unspecified type Anxiety with depression Chronic constipation Unspecified constipation Hypothyroidism, unspecified type Gastroesophageal reflux disease, unspecified whether esophagitis present [facility] [place] [facility]* Diagnosis Left wrist pain Pain in joint, forearm documented [facility] [place] [facility]* Diagnosis Anxiety with depression [facility] [place] [facility]* Diagnosis Hypothyroidism, unspecified type documented [facility] [place] [facility]* Diagnosis Sore throat- Primary Acute pharyngitis Viral illness Unspecified viral infection, in conditions classified elsewhere and of unspecified site [facility] [place] [facility]* Diagnosis Encounter for preconception consultation- Primary Other procreative management counseling and advice documented [facility]* Diagnosis Tension headache- Primary documented in [facility]* Diagnosis Anxiety with depression- Primary documented in [facility]* Diagnosis Anxiety with depression- Primary documented in [facility] encounter [facility]* Diagnosis Missed menses- Primary Absence [...] and vomiting during documented in this encounter [facility]* Diagnosis Missed menses- Primary Absence of menstruation Nausea and vomiting during (HCC) 6 weeks gestation of ([facility]) state, incidental Encounter for supervision of normal intrauterine in multigravida, antepartum (HCC)- Primary with uncertain dates, antepartum ([facility]) state, incidental History of hemorrhage Personal history of diseases of blood and blood-forming organs Screen for STD (sexually transmitted disease) Screening examination for venereal disease 8 weeks gestation of ([facility]) state, incidental Hx of preeclampsia, prior , currently (HCC) with other poor obstetric history Hypothyroidism, unspecified type BMI 38.0-38.9,adult Body Mass Index 38.0-38.9, adult documented in this [facility]* Diagnosis Missed menses- Primary Absence of menstruation Nausea and vomiting during (HCC) 6 weeks gestation of ([facility]) state, incidental Trichomoniasis- Primary Trichomoniasis, unspecified [facility] [place] [facility]* Diagnosis Missed menses- Primary Absence of menstruation Nausea and vomiting during ([facility]) 6 weeks gestation of ([facility]) state, incidental RUDOLPH (generalized anxiety disorder)- Primary Generalized anxiety disorder Panic attack Panic disorder without agoraphobia Chronic constipation Unspecified constipation [facility] [place] [facility]* Diagnosis Missed menses- Primary Absence of menstruation Nausea and vomiting during ([facility]) 6 weeks gestation of ([facility]) state, incidental Encounter for screening for malformation using ultrasound ([facility])- Primary 12 weeks gestation of ([facility]) state, incidental Encounter for (NT) nuchal translucency scan ([facility]) Other specified screening [facility] [place] [facility]* Diagnosis Missed menses- Primary Absence of menstruation Nausea and vomiting during ([facility]) 6 weeks gestation of ([facility]) state, incidental Supervision of other high risk pregnancies, second trimester ([facility])- Primary 12 weeks gestation of ([facility]) state, incidental Obesity in ([facility]) Obesity complicating , childbirth, or the puerperium, unspecified as to episode of care or not applicable Rubella non-immune status, antepartum ([facility]) Other specified complication, antepartum Hx of preeclampsia, prior , currently ([facility]) with other poor obstetric history History of hemorrhage Personal history of diseases of blood and blood-forming organs Hypothyroidism, unspecified type Engages in nicotine containing substance vaping Anxiety and depression Dysthymic disorder Trichomoniasis Trichomoniasis, unspecified [facility] [place] [facility]* Diagnosis Missed menses- Primary Absence of menstruation Nausea and vomiting during ([facility]) 6 weeks gestation of ([facility]) state, incidental RUDOLPH (generalized anxiety disorder) Generalized anxiety disorder Panic attack Panic disorder without agoraphobia [facility] [place] [facility]* Diagnosis Missed menses- Primary Absence of menstruation Nausea and vomiting during ([facility]) 6 weeks gestation of ([facility]) state, incidental RUDOLPH (generalized anxiety disorder) Generalized anxiety disorder Panic attack Panic disorder without agoraphobia [facility] [place] [facility]* Diagnosis Supervision of other high risk [...] Problem(s): Hx of preeclampsia, prior , currently ([facility]) Orders: OBSTETRIC ULTRASOUND WHI; Standing * Assessment [...] NAAT GONORRHEA/CHLAMYDIA NAAT documented in this encounter [facility] note* Diagnosis Rubella non-immune status, antepartum (HCC)- Primary Other specified complication, antepartum Supervision of other high risk pregnancies, second trimester ([facility])- Primary Hx of preeclampsia, prior , currently ([facility]) with other poor obstetric history Obesity in ([facility]) Obesity complicating , childbirth, or the puerperium, unspecified as to episode of care or not applicable Hypothyroidism, unspecified type 16 weeks gestation of ([facility]) state, incidental Trichomoniasis Trichomoniasis, unspecified Screen for STD (sexually transmitted disease) Screening examination for venereal disease documented in this [facility]* Diagnosis Supervision of other high risk pregnancies, second trimester (HCC)- Primary Hx of preeclampsia, prior , currently ([facility]) with other poor obstetric history Obesity in ([facility]) Obesity complicating , childbirth, or the puerperium, unspecified as to episode of care or not applicable Hypothyroidism, unspecified type 16 weeks gestation of ([facility]) state, incidental Trichomoniasis Trichomoniasis, unspecified Screen for STD (sexually transmitted disease) Screening examination for venereal disease Encounter for screening for malformation ([facility])- Primary Supervision of other high risk pregnancies, second trimester ([facility]) Hx of preeclampsia, prior , currently ([facility]) with other poor obstetric history Obesity in ([facility]) Obesity complicating , childbirth, or the puerperium, unspecified as to episode of care or not applicable Hypothyroidism, unspecified type documented in this encounter [facility] note* Diagnosis Supervision of other high risk pregnancies, second trimester (HCC)- Primary Hx of preeclampsia, prior , currently ([facility]) with other poor obstetric history Obesity in (HCC) Obesity complicating , childbirth, or the puerperium, unspecified as to episode of care or not applicable Hypothyroidism, unspecified type 16 weeks gestation of (HCC) state, incidental Trichomoniasis Trichomoniasis, unspecified Screen for STD (sexually transmitted disease) Screening examination for venereal disease Supervision of other high risk pregnancies, second trimester ([facility])- Primary Obesity in ([facility]) Obesity complicating , childbirth, or the puerperium, unspecified as to episode of care or not applicable Hypothyroidism, unspecified type Hx of preeclampsia, prior , currently ([facility]) with other poor obstetric history 20 weeks gestation of ([facility]) state, incidental documented in this encounter [facility] note* Diagnosis Supervision of other high risk pregnancies, second trimester ([facility])- Primary Hx of preeclampsia, prior , currently ([facility]) with other poor obstetric history Obesity in ([facility]) Obesity complicating , childbirth, or the puerperium, unspecified as to episode of care or not applicable Hypothyroidism, unspecified type 16 weeks gestation of ([facility]) state, incidental Trichomoniasis Trichomoniasis, unspecified Screen for STD (sexually transmitted disease) Screening examination for venereal disease Obesity in ([facility])- Primary Obesity complicating , childbirth, or the puerperium, unspecified as to episode of care or not applicable 8 weeks gestation of ([facility]) state, incidental documented in this encounter [facility] note* Diagnosis Supervision of other high risk pregnancies, second trimester ([facility])- Primary Hx of preeclampsia, prior , currently ([facility]) with other poor obstetric history Obesity in ([facility]) Obesity complicating , childbirth, or the puerperium, unspecified as to episode of care or not applicable Hypothyroidism, unspecified type 16 weeks gestation of ([facility]) state, incidental Trichomoniasis Trichomoniasis, unspecified Screen for STD (sexually transmitted disease) Screening examination for venereal disease Proteinuria complicating in second trimester ([facility])- Primary documented in this encounter [facility] note* Diagnosis Abnormal results of thyroid function studies- Primary Nonspecific abnormal results of thyroid function study Supervision of other high risk pregnancies, second trimester (HCC)- Primary Hx of preeclampsia, prior , currently ([facility]) with other poor obstetric history Obesity in ([facility]) Obesity complicating , childbirth, or the puerperium, unspecified as to episode of care or not applicable Hypothyroidism, unspecified type 16 weeks gestation of ([facility]) state, incidental Trichomoniasis Trichomoniasis, unspecified Screen for STD (sexually transmitted disease) Screening examination for venereal disease [facility] Diagnosis Supervision of other high risk pregnancies, second trimester (HCC)- Primary Hx of preeclampsia, prior , currently ([facility]) with other poor obstetric history Obesity in ([facility]) Obesity complicating , childbirth, or the puerperium, unspecified as to episode of care or not applicable Hypothyroidism, unspecified type 16 weeks gestation of ([facility]) state, incidental Trichomoniasis Trichomoniasis, unspecified Screen for STD (sexually transmitted disease) Screening examination for venereal disease Supervision of other high risk pregnancies, second trimester (HCC)- Primary 25 weeks gestation of ([facility]) state, incidental Screening for diabetes mellitus Hx of preeclampsia, prior , currently ([facility]) with other poor obstetric history Hypothyroidism, unspecified type Obesity in ([facility]) Obesity complicating , childbirth, or the puerperium, unspecified as to episode of care or not applicable documented in this encounter [facility] note* Diagnosis Supervision of other high risk pregnancies, second trimester (HCC)- Primary Hx of preeclampsia, prior , currently ([facility]) with other poor obstetric history Obesity in ([facility]) Obesity complicating , childbirth, or the puerperium, unspecified as to episode of care or not applicable Hypothyroidism, unspecified type 16 weeks gestation of ([facility]) state, incidental Trichomoniasis Trichomoniasis, unspecified Screen for STD (sexually transmitted disease) Screening examination for venereal disease Anxiety with depression documented in this encounter [facility] note* Diagnosis Supervision of other high risk pregnancies, second trimester ([facility])- Primary Hx of preeclampsia, prior , currently ([facility]) with other poor obstetric history Obesity in ([facility]) Obesity complicating , childbirth, or the puerperium, unspecified as to episode of care or not applicable Hypothyroidism, unspecified type 16 weeks gestation of ([facility]) state, incidental Trichomoniasis Trichomoniasis, unspecified Screen for STD (sexually transmitted disease) Screening examination for venereal disease Hx of preeclampsia, prior , currently ([facility]) with other poor obstetric history documented [facility] [place] [facility]* Diagnosis Supervision of other high risk pregnancies, second trimester ([facility])- Primary Hx of preeclampsia, prior , currently ([facility]) with other poor obstetric history Obesity in ([facility]) Obesity complicating , childbirth, or the puerperium, unspecified as to episode of care or not applicable Hypothyroidism, unspecified type 16 weeks gestation of ([facility]) state, incidental Trichomoniasis Trichomoniasis, unspecified Screen for STD (sexually transmitted disease) Screening examination for venereal disease Supervision of other high risk pregnancies, second trimester ([facility]) Hx of preeclampsia, prior , currently ([facility]) with other poor obstetric history Obesity in ([facility]) Obesity complicating , childbirth, or the puerperium, unspecified as to episode of care or not applicable Hypothyroidism, unspecified type documented in this encounter [facility] note* Diagnosis Supervision of other high risk pregnancies, second trimester ([facility])- Primary Hx of preeclampsia, prior , currently ([facility]) with other poor obstetric history Obesity in ([facility]) Obesity complicating , childbirth, or the puerperium, unspecified as to episode of care or not applicable Hypothyroidism, unspecified type 16 weeks gestation of ([facility]) state, incidental Trichomoniasis Trichomoniasis, unspecified Screen for STD (sexually transmitted disease) Screening examination for venereal disease Supervision of high risk in third trimester ([facility])- Primary Unspecified high-risk Hypothyroidism, unspecified type Obesity in ([facility]) Obesity complicating , childbirth, or the puerperium, unspecified as to episode of care or not applicable 29 weeks gestation of ([facility]) state, incidental Need for vaccination Need for prophylactic vaccination and inoculation against unspecified single disease Encounter for other general counseling or advice on contraception Sciatica of right side Sciatica documented in this encounter [facility] note* Diagnosis Supervision of other high risk pregnancies, second trimester ([facility])- Primary Hx of preeclampsia, prior , currently ([facility]) with other poor obstetric history Obesity in ([facility]) Obesity complicating , childbirth, or the puerperium, unspecified as to episode of care or not applicable Hypothyroidism, unspecified type 16 weeks gestation of ([facility]) state, incidental Trichomoniasis Trichomoniasis, unspecified Screen for STD (sexually transmitted disease) Screening examination for venereal disease Anemia complicating , third trimester ([facility])- Primary documented in this encounter [facility] note* Diagnosis Supervision of other high risk pregnancies, second trimester ([facility])- Primary Hx of preeclampsia, prior , currently ([facility]) with other poor obstetric history Obesity in ([facility]) Obesity complicating , childbirth, or the puerperium, unspecified as to episode of care or not applicable Hypothyroidism, unspecified type 16 weeks gestation of ([facility]) state, incidental Trichomoniasis Trichomoniasis, unspecified Screen for STD (sexually transmitted disease) Screening examination for venereal disease Anxiety with depression documented in this encounter [facility] note* Diagnosis Supervision of other high risk pregnancies, second trimester ([facility])- Primary Hx of preeclampsia, prior , currently ([facility]) with other poor obstetric history Obesity in ([facility]) Obesity complicating , childbirth, or the puerperium, unspecified as to episode of care or not applicable Hypothyroidism, unspecified type 16 weeks gestation of ([facility]) state, incidental Trichomoniasis Trichomoniasis, unspecified Screen for STD (sexually transmitted disease) Screening examination for venereal disease Anemia during in third trimester ([facility])- Primary Obesity in ([facility]) Obesity complicating , childbirth, or the puerperium, unspecified as to episode of care or not applicable Supervision of high risk in third trimester ([facility]) Unspecified high-risk 31 weeks gestation of ([facility]) state, incidental [facility] Additional Instructions Motrin and Tylenol for pain. Your labs are unremarkable. Your CAT scan showed swollen lymph nodes. This should improve over time. If not follow-up with your doctor. No signs of colitis.[facility] Work Phone: Hospital Discharge instructions Additional Instructions Take your potassium supplements. Please follow-up with your PCP.[facility] Work Phone: Reason for referral (narrative)* Diagnostic Procedure Only (Urgent) - Closed Specialty Diagnoses / Procedures Referred By Contac t Referred To Contact XR IMAGING Diagnoses Left wrist pain Procedures XR WRIST INJURY 4V PA/LAT/OBL/SCAPH LEFT RADEX WRIST COMPLETE MINIMUM 3 VIEWS Ruth Vallejo PA-C [address] [place] [address] Xr Imaging Referral ID Status Reason Start Date Expiration Date V isits Requested Visits Authorized [id number] Closed Auto-Generate d Referral 12/24/2021 01/23/2023 1 1 [facility] for referral (narrative)* Diagnostic Procedure Only (Routine) - Pending Review Specialty Diagnoses / Procedures Referred By Contac t Referred To Contact [facility] Diagnoses Irregular menses Class II obesity Menorrhagia with irregular cycle Dysmenorrhea Procedures PELVIC US WHI US PELVIC NONOBSTETRIC REAL-TIME IMAGE COMPLETE Rohan Yoon MD [id number] [place] [id number] Referral ID Status Reason Start Date Expiration Date Visits Requested Visits Authorized [id number] Pending Review Auto-Generat ed Referral 11/04/2023 11/03/2024 1 1 [facility] for referral (narrative)* Diagnostic Procedure Only (Urgent) - Closed Specialty Diagnoses / Procedures Referred By Contac t Referred To Contact XR IMAGING Diagnoses Left wrist pain Procedures XR WRIST INJURY 4V PA/LAT/OBL/SCAPH LEFT RADEX WRIST COMPLETE MINIMUM 3 VIEWS Ruth Vallejo PA-C [address] [place] [address] [place] [id number] Referral ID Status Reason Start Date Expiration Date V isits Requested Visits Authorized [id number] Closed Auto-Generate d Referral 12/24/2021 01/23/2023 1 1 [facility] for referral (narrative)No reason for referral information [facility]WKe[facility] Work Phone: Reason for visit Narrative* Diagnostic Procedure Only (Routine) - Closed Specialty Diagnoses / Procedures Referred By Contac t Referred To Contact [facility] Diagnoses Irregular menses Class II obesity Menorrhagia with irregular cycle Dysmenorrhea Procedures PELVIC US WHI US PELVIC NONOBSTETRIC REAL-TIME IMAGE COMPLETE Rohan Yoon MD [address] [place] [address] [facility] [address] [place] [id number] Referral ID Status Reason Start Date Expiration Date V isits Requested Visits Authorized [id number] Closed Auto-Generate d Referral 11/12/2023 05/03/2024 1 1 [facility] for visit Narrative* Diagnostic Procedure Only (Urgent) - Closed Specialty Diagnoses / Procedures Referred By Contac t Referred To Contact XR IMAGING Diagnoses Left wrist pain Procedures XR WRIST INJURY 4V PA/LAT/OBL/SCAPH LEFT RADEX WRIST COMPLETE MINIMUM 3 VIEWS Ruth Vallejo PA-C [address] [place] [address] [place] [id number] Referral ID Status Reason Start Date Expiration Date V isits Requested Visits Authorized [id number] Closed Auto-Generate d Referral 12/24/2021 01/23/2023 1 1 [facility] Summary Purpose Family History No Family [...] FoundDocuments on File Type Date Recorded 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 Advance Directive(s) 10/14/2017 12:25 PM Documents on File Type Date Recorded 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 Advance Directive(s) 10/14/2017 12:25 PM Advance Directive Response Recorded Date/ Time Living Will No March 02 9:26pm Power of Photoengraving Proofer No March 02, 2022 9:26pm Advance Directive Response Recorded Date/ Time Living Will No June 30, 2 023 9:09am Power of Photoengraving Proofer No June 30, 2022 9:09am Advance Directive Response Recorded Date/ Time Living Will No September 06, 2022 2: 13pm Power of Photoengraving Proofer No September 06, 2022 2:13pm Advance Directive Response Recorded Date/ Time Living Will No June, 2 024 11:14am Power of Photoengraving Proofer No July 02, 2023 11:14am Reason for Referral Specialty Diagnoses / Procedures Referred By Susan montague Referred To Contact Ent - Otolaryngology Diagnoses Tonsil stone Procedures CONSULT TO ENT OFFICE/OUTPATIENT [facility] 60-74 MINUTES Terrell Cloud APRN.SHOE REPAIR SUPERVISOR [address] [place] [address] Referral ID Status Reason Start Date Expiration Date Visits Requested Visits Authorized [id number] Pending Review PCP Requested Referral 09/17/2021 09/17/2022 1 1 Specialty Diagnoses / Procedures Referred By Susan t Referred To Contact Gastroenterology Diagnoses Gastroesophageal reflux disease, unspecified whether esophagitis present Procedures CONSULT TO GASTROENTEROLOGY OFFICE/OUTPATIENT [facility] 60-74 MINUTES Genie Jackson MD [address] [place] [address] Referral ID Status Reason Start Date Expiration Date Visits Requested Visits Authorized [id number] Pending Review PCP Requested Referral 09/19/2021 09/19/2022 1 1 Specialty Diagnoses / Procedures Referred By Susan t Referred To Contact [facility] Diagnoses Paresthesia Hand pain, left Procedures EMG(NEURO/NI) NERVE CONDUCTION STUDIES 9-10 STUDIES Terrell Cloud APRN.SHOE REPAIR SUPERVISOR [address] [place] [address] [facility] [place] [address] [place] [address] Referral ID Status Reason Start Date Expiration Date Visits Requested Visits Authorized [id number] Authorized Auto-Generat ed Referral 09/22/2022 05/03/2023 1 1 Specialty Diagnoses / Procedures Referred By Susan montague Referred To Contact Diagnoses Chronic constipation Genie Jackson MD [address] [place] [address] Referral ID Status Reason Start Date Expiration Date V isits Requested Visits Authorized [id number] Authorized 11/12/2023 11/10/2024 1 1 Health Concerns [...] section and content) DATE CREATED AUTHOR 10/20/2017 [facility] DATE CREATED AUTHOR AUTHOR'S ORGANIZ ATION 10/23/2017 [facility] DATE CREATED AUTHOR AUTHOR'S ORGANIZ ATION 08/26/2022 [facility] DATE CREATED AUTHOR AUTHOR'S ORGANIZ ATION 07/11/2023 [facility] ([place]) DATE CREATED AUTHOR AUTHOR'S ORGANIZ ATION 02/16/2025 [facility] DATE CREATED AUTHOR AUTHOR'S ORGANIZ ATION 02/17/2025 [facility] Source Comments (unrecognize d section and content) In the event this informatio n is protected by the Federal Confidentiality of Alcohol and Drug Abuse Patient Records regulations: The Federal rules restrict any use of the information to criminally investigate or prosecute any alcohol or drug abuse patient.[facility] the event this information is protected by the Federal Confidentiality of Alcohol and Drug Abuse Patient Records regulations: The Federal rules restrict any use of the information to criminally investigate or prosecute any alcohol or drug abuse patient.[facility] the event this information is protected by the Federal Confidentiality of Alcohol and Drug Abuse Patient Records regulations: The Federal rules restrict any use of the information to criminally investigate or prosecute any alcohol or drug abuse patient.[facility] the event this information is protected by the Federal Confidentiality of Alcohol and Drug Abuse Patient Records regulations: The Federal rules restrict any use of the information to criminally investigate or prosecute any alcohol or drug abuse patient.[facility] the event this information is protected by the Federal Confidentiality of Alcohol and Drug Abuse Patient Records regulations: The Federal rules restrict any use of the information to criminally investigate or prosecute any alcohol or drug abuse patient.[facility] the event this information is protected by the Federal Confidentiality of Alcohol and Drug Abuse Patient Records regulations: The Federal rules restrict any use of the information to criminally investigate or prosecute any alcohol or drug abuse patient.[facility] the event this information is protected by the Federal Confidentiality of Alcohol and Drug Abuse Patient Records regulations: The Federal rules restrict any use of the information to criminally investigate or prosecute any alcohol or drug abuse patient.[facility] the event this information is protected by the Federal Confidentiality of Alcohol and Drug Abuse Patient Records regulations: The Federal rules restrict any use of the information to criminally investigate or prosecute any alcohol or drug abuse patient.[facility] the event this information is protected by the Federal Confidentiality of Alcohol and Drug Abuse Patient Records regulations: The Federal rules restrict any use of the information to criminally investigate or prosecute any alcohol or drug abuse patient.[facility] the event this information is protected by the Federal Confidentiality of Alcohol and Drug Abuse Patient Records regulations: The Federal rules restrict any use of the information to criminally investigate or prosecute any alcohol or drug abuse patient.[facility] the event this information is protected by the Federal Confidentiality of Alcohol and Drug Abuse Patient Records regulations: The Federal rules restrict any use of the information to criminally investigate or prosecute any alcohol or drug abuse patient.[facility] the event this information is protected by the Federal Confidentiality of Alcohol and Drug Abuse Patient Records regulations: The Federal rules restrict any use of the information to criminally investigate or prosecute any alcohol or drug abuse patient.[facility] the event this information is protected by the Federal Confidentiality of Alcohol and Drug Abuse Patient Records regulations: The Federal rules restrict any use of the information to criminally investigate or prosecute any alcohol or drug abuse patient.[facility] the event this information is protected by the Federal Confidentiality of Alcohol and Drug Abuse Patient Records regulations: The Federal rules restrict any use of the information to criminally investigate or prosecute any alcohol or drug abuse patient.[facility] the event this information is protected by the Federal Confidentiality of Alcohol and Drug Abuse Patient Records regulations: The Federal rules restrict any use of the information to criminally investigate or prosecute any alcohol or drug abuse patient.[facility] the event this information is protected by the Federal Confidentiality of Alcohol and Drug Abuse Patient Records regulations: The Federal rules restrict any use of the information to criminally investigate or prosecute any alcohol or drug abuse patient.[facility] the event this information is protected by the Federal Confidentiality of Alcohol and Drug Abuse Patient Records regulations: The Federal rules restrict any use of the information to criminally investigate or prosecute any alcohol or drug abuse patient.[facility] the event this information is protected by the Federal Confidentiality of Alcohol and Drug Abuse Patient Records regulations: The Federal rules restrict any use of the information to criminally investigate or prosecute any alcohol or drug abuse patient.[facility] the event this information is protected by the Federal Confidentiality of Alcohol and Drug Abuse Patient Records regulations: The Federal rules restrict any use of the information to criminally investigate or prosecute any alcohol or drug abuse patient.[facility] the event this information is protected by the Federal Confidentiality of Alcohol and Drug Abuse Patient Records regulations: The Federal rules restrict any use of the information to criminally investigate or prosecute any alcohol or drug abuse patient.[facility] HospitalIn the event this information is protected by the Federal Confidentiality of Alcohol and Drug Abuse Patient Records regulations: The Federal rules restrict any use of the information to criminally investigate or prosecute any alcohol or drug abuse patient.[facility] HospitalIn the event this information is protected by the Federal Confidentiality of Alcohol and Drug Abuse Patient Records regulations: The Federal rules restrict any use of the information to criminally investigate or prosecute any alcohol or drug abuse patient.[facility] HospitalIn the event this information is protected by the Federal Confidentiality of Alcohol and Drug Abuse Patient Records regulations: The Federal rules restrict any use of the information to criminally investigate or prosecute any alcohol or drug abuse patient.[facility] HospitalIn the event this information is protected by the Federal Confidentiality of Alcohol and Drug Abuse Patient Records regulations: The Federal rules restrict any use of the information to criminally investigate or prosecute any alcohol or drug abuse patient.[facility] HospitalIn the event this information is protected by the Federal Confidentiality of Alcohol and Drug Abuse Patient Records regulations: The Federal rules restrict any use of the information to criminally investigate or prosecute any alcohol or drug abuse patient.[facility] HospitalIn the event this information is protected by the Federal Confidentiality of Alcohol and Drug Abuse Patient Records regulations: The Federal rules restrict any use of the information to criminally investigate or prosecute any alcohol or drug abuse patient.[facility] HospitalIn the event this information is protected by the Federal Confidentiality of Alcohol and Drug Abuse Patient Records regulations: The Federal rules restrict any use of the information to criminally investigate or prosecute any alcohol or drug abuse patient.[facility] HospitalIn the event this information is protected by the Federal Confidentiality of Alcohol and Drug Abuse Patient Records regulations: The Federal rules restrict any use of the information to criminally investigate or prosecute any alcohol or drug abuse patient.[facility] HospitalIn the event this information is protected by the Federal Confidentiality of Alcohol and Drug Abuse Patient Records regulations: The Federal rules restrict any use of the information to criminally investigate or prosecute any alcohol or drug abuse patient.[facility] HospitalIn the event this information is protected by the Federal Confidentiality of Alcohol and Drug Abuse Patient Records regulations: The Federal rules restrict any use of the information to criminally investigate or prosecute any alcohol or drug abuse patient.[facility] HospitalIn the event this information is protected by the Federal Confidentiality of Alcohol and Drug Abuse Patient Records regulations: The Federal rules restrict any use of the information to criminally investigate or prosecute any alcohol or drug abuse patient.[facility] HospitalIn the event this information is protected by the Federal Confidentiality of Alcohol and Drug Abuse Patient Records regulations: The Federal rules restrict any use of the information to criminally investigate or prosecute any alcohol or drug abuse patient.[facility] HospitalIn the event this information is protected by the Federal Confidentiality of Alcohol and Drug Abuse Patient Records regulations: The Federal rules restrict any use of the information to criminally investigate or prosecute any alcohol or drug abuse patient.[facility] HospitalIn the event this information is protected by the Federal Confidentiality of Alcohol and Drug Abuse Patient Records regulations: The Federal rules restrict any use of the information to criminally investigate or prosecute any alcohol or drug abuse patient.[facility] HospitalIn the event this information is protected by the Federal Confidentiality of Alcohol and Drug Abuse Patient Records regulations: The Federal rules restrict any use of the information to criminally investigate or prosecute any alcohol or drug abuse patient.[facility] HospitalIn the event this information is protected by the Federal Confidentiality of Alcohol and Drug Abuse Patient Records regulations: The Federal rules restrict any use of the information to criminally investigate or prosecute any alcohol or drug abuse patient.[facility] HospitalIn the event this information is protected by the Federal Confidentiality of Alcohol and Drug Abuse Patient Records regulations: The Federal rules restrict any use of the information to criminally investigate or prosecute any alcohol or drug abuse patient.[facility] HospitalIn the event this information is protected by the Federal Confidentiality of Alcohol and Drug Abuse Patient Records regulations: The Federal rules restrict any use of the information to criminally investigate or prosecute any alcohol or drug abuse patient.[facility] HospitalIn the event this information is protected by the Federal Confidentiality of Alcohol and Drug Abuse Patient Records regulations: The Federal rules restrict any use of the information to criminally investigate or prosecute any alcohol or drug abuse patient.[facility] HospitalIn the event this information is protected by the Federal Confidentiality of Alcohol and Drug Abuse Patient Records regulations: The Federal rules restrict any use of the information to criminally investigate or prosecute any alcohol or drug abuse patient.[facility] HospitalIn the event this information is protected by the Federal Confidentiality of Alcohol and Drug Abuse Patient Records regulations: The Federal rules restrict any use of the information to criminally investigate or prosecute any alcohol or drug abuse patient.[facility] HospitalIn the event this information is protected by the Federal Confidentiality of Alcohol and Drug Abuse Patient Records regulations: The Federal rules restrict any use of the information to criminally investigate or prosecute any alcohol or drug abuse patient.[facility] HospitalIn the event this information is protected by the Federal Confidentiality of Alcohol and Drug Abuse Patient Records regulations: The Federal rules restrict any use of the information to criminally investigate or prosecute any alcohol or drug abuse patient.[facility] HospitalIn the event this information is protected by the Federal Confidentiality of Alcohol and Drug Abuse Patient Records regulations: The Federal rules restrict any use of the information to criminally investigate or prosecute any alcohol or drug abuse patient.[facility] HospitalIn the event this information is protected by the Federal Confidentiality of Alcohol and Drug Abuse Patient Records regulations: The Federal rules restrict any use of the information to criminally investigate or prosecute any alcohol or drug abuse patient.[facility] HospitalIn the event this information is protected by the Federal Confidentiality of Alcohol and Drug Abuse Patient Records regulations: The Federal rules restrict any use of the information to criminally investigate or prosecute any alcohol or drug abuse patient.[facility] HospitalIn the event this information is protected by the Federal Confidentiality of Alcohol and Drug Abuse Patient Records regulations: The Federal rules restrict any use of the information to criminally investigate or prosecute any alcohol or drug abuse patient.[facility] HospitalIn the event this information is protected by the Federal Confidentiality of Alcohol and Drug Abuse Patient Records regulations: The Federal rules restrict any use of the information to criminally investigate or prosecute any alcohol or drug abuse patient.[facility] HospitalIn the event this information is protected by the Federal Confidentiality of Alcohol and Drug Abuse Patient Records regulations: The Federal rules restrict any use of the information to criminally investigate or prosecute any alcohol or drug abuse patient.[facility] HospitalIn the event this information is protected by the Federal Confidentiality of Alcohol and Drug Abuse Patient Records regulations: The Federal rules restrict any use of the information to criminally investigate or prosecute any alcohol or drug abuse patient.[facility] HospitalIn the event this information is protected by the Federal Confidentiality of Alcohol and Drug Abuse Patient Records regulations: The Federal rules restrict any use of the information to criminally investigate or prosecute any alcohol or drug abuse patient.[facility] HospitalIn the event this information is protected by the Federal Confidentiality of Alcohol and Drug Abuse Patient Records regulations: The Federal rules restrict any use of the information to criminally investigate or prosecute any alcohol or drug abuse patient.[facility] HospitalIn the event this information is protected by the Federal Confidentiality of Alcohol and Drug Abuse Patient Records regulations: The Federal rules restrict any use of the information to criminally investigate or prosecute any alcohol or drug abuse patient.[facility] HospitalIn the event this information is protected by the Federal Confidentiality of Alcohol and Drug Abuse Patient Records regulations: The Federal rules restrict any use of the information to criminally investigate or prosecute any alcohol or drug abuse patient.[facility] HospitalIn the event this information is protected by the Federal Confidentiality of Alcohol and Drug Abuse Patient Records regulations: The Federal rules restrict any use of the information to criminally investigate or prosecute any alcohol or drug abuse patient.[facility] HospitalIn the event this information is protected by the Federal Confidentiality of Alcohol and Drug Abuse Patient Records regulations: The Federal rules restrict any use of the information to criminally investigate or prosecute any alcohol or drug abuse patient.[facility] HospitalIn the event this information is protected by the Federal Confidentiality of Alcohol and Drug Abuse Patient Records regulations: The Federal rules restrict any use of the information to criminally investigate or prosecute any alcohol or drug abuse patient.[facility] HospitalIn the event this information is protected by the Federal Confidentiality of Alcohol and Drug Abuse Patient Records regulations: The Federal rules restrict any use of the information to criminally investigate or prosecute any alcohol or drug abuse patient.[facility] HospitalIn the event this information is protected by the Federal Confidentiality of Alcohol and Drug Abuse Patient Records regulations: The Federal rules restrict any use of the information to criminally investigate or prosecute any alcohol or drug abuse patient.[facility] HospitalIn the event this information is protected by the Federal Confidentiality of Alcohol and Drug Abuse Patient Records regulations: The Federal rules restrict any use of the information to criminally investigate or prosecute any alcohol or drug abuse patient.[facility] HospitalIn the event this information is protected by the Federal Confidentiality of Alcohol and Drug Abuse Patient Records regulations: The Federal rules restrict any use of the information to criminally investigate or prosecute any alcohol or drug abuse patient.[facility] HospitalIn the event this information is protected by the Federal Confidentiality of Alcohol and Drug Abuse Patient Records regulations: The Federal rules restrict any use of the information to criminally investigate or prosecute any alcohol or drug abuse patient.[facility] HospitalIn the event this information is protected by the Federal Confidentiality of Alcohol and Drug Abuse Patient Records regulations: The Federal rules restrict any use of the information to criminally investigate or prosecute any alcohol or drug abuse patient.[facility] HospitalIn the event this information is protected by the Federal Confidentiality of Alcohol and Drug Abuse Patient Records regulations: The Federal rules restrict any use of the information to criminally investigate or prosecute any alcohol or drug abuse patient.[facility] HospitalIn the event this information is protected by the Federal Confidentiality of Alcohol and Drug Abuse Patient Records regulations: The Federal rules restrict any use of the information to criminally investigate or prosecute any alcohol or drug abuse patient.[facility] HospitalIn the event this information is protected by the Federal Confidentiality of Alcohol and Drug Abuse Patient Records regulations: The Federal rules restrict any use of the information to criminally investigate or prosecute any alcohol or drug abuse patient.[facility] HospitalIn the event this information is protected by the Federal Confidentiality of Alcohol and Drug Abuse Patient Records regulations: The Federal rules restrict any use of the information to criminally investigate or prosecute any alcohol or drug abuse patient.[facility] HospitalIn the event this information is protected by the Federal Confidentiality of Alcohol and Drug Abuse Patient Records regulations: The Federal rules restrict any use of the information to criminally investigate or prosecute any alcohol or drug abuse patient.[facility] HospitalIn the event this information is protected by the Federal Confidentiality of Alcohol and Drug Abuse Patient Records regulations: The Federal rules restrict any use of the information to criminally investigate or prosecute any alcohol or drug abuse patient.[facility] HospitalIn the event this information is protected by the Federal Confidentiality of Alcohol and Drug Abuse Patient Records regulations: The Federal rules restrict any use of the information to criminally investigate or prosecute any alcohol or drug abuse patient.[facility] HospitalIn the event this information is protected by the Federal Confidentiality of Alcohol and Drug Abuse Patient Records regulations: The Federal rules restrict any use of the information to criminally investigate or prosecute any alcohol or drug abuse patient.[facility] HospitalIn the event this information is protected by the Federal Confidentiality of Alcohol and Drug Abuse Patient Records regulations: The Federal rules restrict any use of the information to criminally investigate or prosecute any alcohol or drug abuse patient.[facility] HospitalIn the event this information is protected by the Federal Confidentiality of Alcohol and Drug Abuse Patient Records regulations: The Federal rules restrict any use of the information to criminally investigate or prosecute any alcohol or drug abuse patient.[facility] HospitalIn the event this information is protected by the Federal Confidentiality of Alcohol and Drug Abuse Patient Records regulations: The Federal rules restrict any use of the information to criminally investigate or prosecute any alcohol or drug abuse patient.[facility] HospitalIn the event this information is protected by the Federal Confidentiality of Alcohol and Drug Abuse Patient Records regulations: The Federal rules restrict any use of the information to criminally investigate or prosecute any alcohol or drug abuse patient.[facility] HospitalIn the event this information is protected by the Federal Confidentiality of Alcohol and Drug Abuse Patient Records regulations: The Federal rules restrict any use of the information to criminally investigate or prosecute any alcohol or drug abuse patient.[facility] HospitalIn the event this information is protected by the Federal Confidentiality of Alcohol and Drug Abuse Patient Records regulations: The Federal rules restrict any use of the information to criminally investigate or prosecute any alcohol or drug abuse patient.[facility] HospitalIn the event this information is protected by the Federal Confidentiality of Alcohol and Drug Abuse Patient Records regulations: The Federal rules restrict any use of the information to criminally investigate or prosecute any alcohol or drug abuse patient.[facility] HospitalIn the event this information is protected by the Federal Confidentiality of Alcohol and Drug Abuse Patient Records regulations: The Federal rules restrict any use of the information to criminally investigate or prosecute any alcohol or drug abuse patient.[facility] HospitalIn the event this information is protected by the Federal Confidentiality of Alcohol and Drug Abuse Patient Records regulations: The Federal rules restrict any use of the information to criminally investigate or prosecute any alcohol or drug abuse patient.[facility] HospitalIn the event this information is protected by the Federal Confidentiality of Alcohol and Drug Abuse Patient Records regulations: The Federal rules restrict any use of the information to criminally investigate or prosecute any alcohol or drug abuse patient.[facility] HospitalIn the event this information is protected by the Federal Confidentiality of Alcohol and Drug Abuse Patient Records regulations: The Federal rules restrict any use of the information to criminally investigate or prosecute any alcohol or drug abuse patient.[facility] HospitalIn the event this information is protected by the Federal Confidentiality of Alcohol and Drug Abuse Patient Records regulations: The Federal rules restrict any use of the information to criminally investigate or prosecute any alcohol or drug abuse patient.[facility] HospitalIn the event this information is protected by the Federal Confidentiality of Alcohol and Drug Abuse Patient Records regulations: The Federal rules restrict any use of the information to criminally investigate or prosecute any alcohol or drug abuse patient.[facility] HospitalIn the event this information is protected by the Federal Confidentiality of Alcohol and Drug Abuse Patient Records regulations: The Federal rules restrict any use of the information to criminally investigate or prosecute any alcohol or drug abuse patient.[facility] HospitalIn the event this information is protected by the Federal Confidentiality of Alcohol and Drug Abuse Patient Records regulations: The Federal rules restrict any use of the information to criminally investigate or prosecute any alcohol or drug abuse patient.[facility] HospitalIn the event this information is protected by the Federal Confidentiality of Alcohol and Drug Abuse Patient Records regulations: The Federal rules restrict any use of the information to criminally investigate or prosecute any alcohol or drug abuse patient.[facility] HospitalIn the event this information is protected by the Federal Confidentiality of Alcohol and Drug Abuse Patient Records regulations: The Federal rules restrict any use of the information to criminally investigate or prosecute any alcohol or drug abuse patient.[facility] HospitalIn the event this information is protected by the Federal Confidentiality of Alcohol and Drug Abuse Patient Records regulations: The Federal rules restrict any use of the information to criminally investigate or prosecute any alcohol or drug abuse patient.[facility] HospitalIn the event this information is protected by the Federal Confidentiality of Alcohol and Drug Abuse Patient Records regulations: The Federal rules restrict any use of the information to criminally investigate or prosecute any alcohol or drug abuse patient.[facility] HospitalIn the event this information is protected by the Federal Confidentiality of Alcohol and Drug Abuse Patient Records regulations: The Federal rules restrict any use of the information to criminally investigate or prosecute any alcohol or drug abuse patient.[facility] HospitalIn the event this information is protected by the Federal Confidentiality of Alcohol and Drug Abuse Patient Records regulations: The Federal rules restrict any use of the information to criminally investigate or prosecute any alcohol or drug abuse patient.[facility] HospitalIn the event this information is protected by the Federal Confidentiality of Alcohol and Drug Abuse Patient Records regulations: The Federal rules restrict any use of the information to criminally investigate or prosecute any alcohol or drug abuse patient.[facility] Reason for Visit (unrecogniz ed section and content) Reason Onset Date Comments Refill Request 08/09/2021 Reason Comments Swollen Tonsils Reason Comments GERD Specialty Diagnoses / Procedures Referred By Susan t Referred To Contact Gastroenterology Diagnoses Gastroesophageal reflux disease, unspecified whether esophagitis present Procedures CONSULT TO GASTROENTEROLOGY OFFICE/OUTPATIENT NEW HIGH MDM 60-74 MINUTES Genie Jackson MD [address] [place] [address] Referral ID Status Reason Start Date Expiration Date Visits Requested Visits Authorized [id number] Pending Review PCP Requested Referral 09/19/2021 09/19/2022 [...] Request 07/29/2022 Reason Comments ER F/U 08/22/22 [facility]; abdominal pain Reason Comments Urinary Frequency Frequency [...] Procedures EST SAME DAY [facility] [address] [place] [address] Referral ID Status Reason Start Date Expiration Date Visits Requested Visits Authorized [id number] New Request Financial Clearance Required - Self Pay 07/13/2024 1 1 Reason Comments Problem Visit Reason Comments Headache X 1 week with sinus pressure Reason Comments Medication Problem Increased anxiety Reason Comments patient medication question Reason Comments Medication Problem Reason Comments Future Appointment 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 Comments 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 Reason Comments Follow Up Reason Comments US Specialty Diagnoses / Procedures Referred By Susan t Referred To Contact [facility] Diagnoses 8 weeks gestation of (HCC) Procedures OBSTETRIC ULTRASOUND WHI US PREG UTERUS AFTER 1ST TRIMEST GESTATION Elayne Severino, BUD.SHOE REPAIR SUPERVISOR [address] [place] [address] Phone: tel: fax: [facility] [address] [place] [address] Referral ID Status Reason Start Date Expiration Date V isits Requested Visits Authorized [id number] Closed Auto-Generate d Referral 08/01/2024 08/01/2025 1 1 Reason Onset Date Comments Care 08/31/2024 Reason Onset Date Comments Refill Request 09/07/2024 Reason Onset Date Comments Care 09/29/2024 Specialty Diagnoses / Procedures Referred By Contac t Referred To Contact [facility] Diagnoses Supervision of other high risk pregnancies, second trimester (HCC) Hx of preeclampsia, prior , currently (HCC) Obesity in (HCC) Hypothyroidism, unspecified type Procedures OBSTETRIC ULTRASOUND WHI US PREG UTERUS AFTER 1ST TRIMEST GESTATION Emmanuel Hess MD [address] [place] [address] Phone: tel: fax: [facility] [address] [place] [address] Referral ID Status Reason Start Date Expiration Date V isits Requested Visits Authorized [id number] Closed Auto-Generate d Referral 09/29/2024 09/29/2025 6 1 Reason Onset Date Comments Care 10/26/2024 Referral ID Status Reason Start Date Expiration Date V isits Requested Visits Authorized [id number] Closed Auto-Generate d Referral 08/01/2024 08/01/2025 1 1 Reason Onset Date Comments Care 11/29/2024 Reason Onset Date Comments Refill Request 10/11/2024 Reason Onset Date Comments Care 12/28/2024 Reason Comments Results Reason Onset Date Comments Refill Request 01/05/2025 Reason Onset Date Comments Care 01/12/2025 Care Teams (unrecognized sec tion and content) Medical Billing Assistant Relationship Specialty Start Date End Date Genie Jackson MD [address] [place], [place] [id number] PCP - General Family Practice 08/27/17 Medical Billing Assistant Relationship Specialty Start Date End Date Genie Jackson MD [address] [place], [place] [address] [phone] PCP - General Family Practice 08/27/17 Medical Billing Assistant Relationship Specialty Start Date End Date Genie Jcakson MD [address] [place], [place] [id number] PCP - General Family Practice 08/27/17 Medical Billing Assistant Relationship Specialty Start Date End Date Genie Jackson MD [address] [place], [place] [id number] PCP - General Family Practice 08/27/17 Medical Billing Assistant Relationship Specialty Start Date End Date Genie Jackson MD [address] [place] [address] PCP - General Family Practice 08/27/17 Medical Billing Assistant Relationship Specialty Start Date End Date Genie Jackson MD [address] [place] [address] PCP - General Family Practice 08/27/17 Medical Billing Assistant Relationship Specialty Start Date End Date Genie Jackson MD [address] [place] [address] PCP - General Family Practice 08/27/17 Medical Billing Assistant Relationship Specialty Start Date End Date Genie Jackson MD [address] [place] [address] PCP - General Family Practice 08/27/17 Medical Billing Assistant Relationship Specialty Start Date End Date Genie Jackson MD [address] [place] [address] PCP - General Family Practice 08/27/17 Medical Billing Assistant Relationship Specialty Start Date End Date Genie Jackson MD [address] [place] [address] PCP - General Family Practice 08/27/17 Medical Billing Assistant Relationship Specialty Start Date End Date Genie Jackson MD [address] [place] [address] PCP - General Family Medicine 08/27/17 Medical Billing Assistant Relationship Specialty Start Date End Date Genie Jackson MD [address] [place] [address] PCP - General Family Medicine 08/27/17 Medical Billing Assistant Relationship Specialty Start Date End Date Genie Jackson MD [address] [place] [address] PCP - General Family Medicine 08/27/17 Medical Billing Assistant Relationship Specialty Start Date End Date Genie Jackson MD [address] [place] [address] PCP - General Family Medicine 08/27/17 Medical Billing Assistant Relationship Specialty Start Date End Date Genie Jackson MD [address] [facility] [place] [address] PCP - General Family Medicine 08/27/17 Team [...] Dr. Louis Spivey MD Emergency Provider Active Medical Billing Assistant Relationship Specialty Start Date End Date Genie Jackson MD [address] [facility] [place] [address] PCP - General Family Medicine 08/27/17 Medical Billing Assistant Relationship Specialty Start Date End Date Genie Jackson MD [address] [facility] [place] [address] PCP - General Family Medicine 08/27/17 Medical Billing Assistant Relationship Specialty Start Date End Date Genie Jackson MD [address] [facility] [place] [address] PCP - General Family Medicine 08/27/17 Team Status: Inactive Member Role Status Dates Dr. Genie Jackson MD Primary Care Provider Active Dr. Louis Spivey MD Attending Provider, Emergency Pro vider Active Team Status: Inactive Member Role Status Dates Dr. Genie Jackson MD Primary Care Provider Active Dr. Steffanie Ureña MD Emergency Provider Active Medical Billing Assistant Relationship Specialty Start Date End Date Genie Jackson MD [address] [facility] [place] [address] PCP - General Family Medicine 08/27/17 Medical Billing Assistant Relationship Specialty Start Date End Date Genie Jackson MD [address] [place] [address] PCP - General Family Medicine 08/27/17 Medical Billing Assistant Relationship Specialty Start Date End Date Genie Jackson MD [address] [place] [address] PCP - General Family Medicine 08/27/17 Medical Billing Assistant Relationship Specialty Start Date End Date Genie Jackson MD [address] [place] [address] PCP - General Family Medicine 08/27/17 Medical Billing Assistant Relationship Specialty Start Date End Date Genie Jackson MD [address] [place] [address] PCP - General Family Medicine 08/27/17 Medical Billing Assistant Relationship Specialty Start Date End Date Genie Jackson MD [address] [place] [address] PCP - General Family Medicine 08/27/17 Medical Billing Assistant Relationship Specialty Start Date End Date Genie Jackson MD [address] [place] [address] PCP - General Family Medicine 08/27/17 Team Status: Inactive Member Role Status Dates Dr. Genie Jackson MD Primary Care Provider Active Dr. Thierno Winston DO Emergency Provider Active Medical Billing Assistant Relationship Specialty Start Date End Date Genie Jackson MD [address] [place] [address] PCP - General Family Medicine 08/27/17 Medical Billing Assistant Relationship Specialty Start Date End Date Genie Jackson MD [address] [place] [address] PCP - General Family Medicine 08/27/17 Medical Billing Assistant Relationship Specialty Start Date End Date Genie Jackson MD [address] [place] [address] PCP - General Family Medicine 08/27/17 Medical Billing Assistant Relationship Specialty Start Date End Date Genie Jackson MD [address] [place] [address] PCP - General Family Medicine 08/27/17 Medical Billing Assistant Relationship Specialty Start Date End Date Genie Jackson MD [address] [place] [address] PCP - General Family Medicine 08/27/17 Medical Billing Assistant Relationship Specialty Start Date End Date Genie Jackson MD [address] [place] [address] PCP - General Family Medicine 08/27/17 Medical Billing Assistant Relationship Specialty Start Date End Date Genie Jackson MD [address] [place] [address] PCP - General Family Medicine 08/27/17 Medical Billing Assistant Relationship Specialty Start Date End Date Genie Jackson MD [address] [place] [address] PCP - General Family Medicine 08/27/17 Medical Billing Assistant Relationship Specialty Start Date End Date Genie Jackson MD [address] [place] [address] PCP - General Family Medicine 08/27/17 Medical Billing Assistant Relationship Specialty Start Date End Date Genie Jackson MD [address] [place] [address] PCP - General Family Medicine 08/27/17 Medical Billing Assistant Relationship Specialty Start Date End Date Genie Jackson MD [address] [place] [address] PCP - General Family Medicine 08/27/17 Medical Billing Assistant Relationship Specialty Start Date End Date Genie Jackson MD [address] [place] [address] PCP - General Family Medicine 08/27/17 Medical Billing Assistant Relationship Specialty Start Date End Date Genie Jackson MD [address] [place] [address] PCP - General Family Medicine 08/27/17 Ivelisse Ng APRN.SHOE REPAIR SUPERVISOR [address] [place] [address] Portable Grinding Machine Operator Family Medicine 04/10/24 Medical Billing Assistant Relationship Specialty Start Date End Date Genie Jackson MD [address] [place] [address] PCP - General Family Medicine 08/27/17 Ivelisse Ng APRN.SHOE REPAIR SUPERVISOR [address] [place] [address] Portable Grinding Machine Operator Family Medicine 04/10/24 Terrell Cloud APRN.SHOE REPAIR SUPERVISOR [address] [place] [address] Portable Grinding Machine Operator Family Medicine 04/19/24 Medical Billing Assistant Relationship Specialty Start Date End Date Genie Jackson MD [address] [place] [address] PCP - General Family Medicine 08/27/17 Ivelisse Ng APRN.SHOE REPAIR SUPERVISOR [address] [place] [address] Portable Grinding Machine Operator Family Medicine 04/10/24 Terrell Cloud APRN.SHOE REPAIR SUPERVISOR [address] [place] [address] Portable Grinding Machine Operator Family Medicine 04/19/24 Medical Billing Assistant Relationship Specialty Start Date End Date Genie Jackson MD [address] [place] [address] PCP - General Family Medicine 08/27/17 Ivelisse Ng APRN.SHOE REPAIR SUPERVISOR [address] [place] [address] Portable Grinding Machine Operator Family Medicine 04/10/24 Terrell Cloud APRN.SHOE REPAIR SUPERVISOR [address] [place] [address] Portable Grinding Machine Operator Family Medicine 04/19/24 Medical Billing Assistant Relationship Specialty Start Date End Date Genie Jackson MD [address] [place] [address] PCP - General Family Medicine 08/27/17 Ivelisse Ng APRN.SHOE REPAIR SUPERVISOR [address] [place] [address] Portable Grinding Machine Operator Family Medicine 04/10/24 Terrell Cloud APRN.SHOE REPAIR SUPERVISOR [address] [place] [address] Portable Grinding Machine Operator Family Medicine 04/19/24 Medical Billing Assistant Relationship Specialty Start Date End Date Genie Jackson MD [address] [place] [address] PCP - General Family Medicine 08/27/17 Ivelisse Ng APRN.SHOE REPAIR SUPERVISOR [address] [place] [address] Portable Grinding Machine Operator Family Medicine 04/10/24 Terrell Cloud APRN.SHOE REPAIR SUPERVISOR [address] [place] [address] [facility] 04/19/24 Medical Billing Assistant Relationship Specialty Start Date End Date Genie Jackson MD [address] [place] [address] PCP - General Family Medicine 08/27/17 Ivelisse Ng APRN.SHOE REPAIR SUPERVISOR [address] [place] [address] Portable Grinding Machine Operator Family Medicine 04/10/24 Terrell Cloud APRN.SHOE REPAIR SUPERVISOR [address] [place] [address] [facility] Family Medicine 04/19/24 Medical Billing Assistant Relationship Specialty Start Date End Date Genie Jackson MD [address] [place] [address] PCP - General Family Medicine 08/27/17 Ivelisse Ng APRN.SHOE REPAIR SUPERVISOR [address] [place] [address] Portable Grinding Machine Operator Family Medicine 04/10/24 Terrell Cloud APRN.SHOE REPAIR SUPERVISOR [address] [place] [address] Portable Grinding Machine Operator Family Medicine 04/19/24 Medical Billing Assistant Relationship Specialty Start Date End Date Genie Jackson MD [address] [place] [address] PCP - General Family Medicine 08/27/17 Ivelisse Ng APRN.SHOE REPAIR SUPERVISOR [address] [place] [address] Portable Grinding Machine Operator Family Medicine 04/10/24 Terrell Cloud APRN.SHOE REPAIR SUPERVISOR [address] [place] [address] [facility] 04/[facility] Medical Billing Assistant Relationship Specialty Start Date End Date Genie Jackson MD [address] [place] [address] PCP - General Family Medicine 08/27/17 Ivelisse Ng APRN.SHOE REPAIR SUPERVISOR [address] [place] [address] Portable Grinding Machine Operator Family Medicine 04/10/24 Terrell Cloud APRN.SHOE REPAIR SUPERVISOR [address] [place] [address] Portable Grinding Machine Operator Family Medicine 04/19/24 Medical Billing Assistant Relationship Specialty Start Date End Date Genie Jackson MD [address] [facility] [place] [address] PCP - General Family Medicine 08/27/17 Ivelisse Ng APRN.SHOE REPAIR SUPERVISOR [address] [facility] [place] [address] Portable Grinding Machine Operator Family Medicine 04/10/24 Terrell Cloud APRN.SHOE REPAIR SUPERVISOR [address] [facility] [place] [address] Portable Grinding Machine Operator Family Medicine 04/19/24 Medical Billing Assistant Relationship Specialty Start Date End Date Genie Jackson MD [address] [facility] [place] [address] PCP - General Family Medicine 08/27/17 Ivelisse Ng APRN.SHOE REPAIR SUPERVISOR [address] [place] [address] Portable Grinding Machine Operator Family Medicine 04/10/24 Terrell Cloud APRN.SHOE REPAIR SUPERVISOR [address] [facility] [place] [address] Portable Grinding Machine Operator Family Medicine 04/19/24 Medical Billing Assistant Relationship Specialty Start Date End Date Genie Jackson MD [address] [place] [place] [address] PCP - General Family Medicine 08/27/17 Ivelisse Ng APRN.SHOE REPAIR SUPERVISOR [address] [place] [place] [address] Portable Grinding Machine Operator Family Medicine 04/10/24 Terrell Cloud APRN.SHOE REPAIR SUPERVISOR [address] [place] [place] [address] Portable Grinding Machine Operator Family Medicine 04/19/24 Medical Billing Assistant Relationship Specialty Start Date End Date Genie Jackson MD [address] [place] [address] PCP - General Family Medicine 08/27/17 Ivelisse Ng APRN.SHOE REPAIR SUPERVISOR [address] [place] [address] Portable Grinding Machine Operator Family Medicine 04/10/24 Terrell Cloud APRN.SHOE REPAIR SUPERVISOR [address] [place] [address] Portable Grinding Machine Operator Family Medicine 04/19/24 Medical Billing Assistant Relationship Specialty Start Date End Date Genie Jackson MD [address] [place] [address] PCP - General Family Medicine 08/27/17 Terrell Cloud APRN.SHOE REPAIR SUPERVISOR [address] [place] [address] Portable Grinding Machine Operator Family Medicine 04/19/24 Medical Billing Assistant Relationship Specialty Start Date End Date Genie Jackson MD [address] [place] [address] PCP - General Family Medicine 08/27/17 Ivelisse Ng APRN.SHOE REPAIR SUPERVISOR [address] [place] [address] Portable Grinding Machine Operator Family Medicine 04/10/24 09/14/24 Terrell Cloud APRN.SHOE REPAIR SUPERVISOR [address] [place] [address] Portable Grinding Machine Operator Family Medicine 04/19/24 Medical Billing Assistant Relationship Specialty Start Date End Date Genie Jackson MD [address] [place] [address] PCP - General Family Medicine 08/27/17 Terrell Cloud APRN.SHOE REPAIR SUPERVISOR [address] [place] [address] Portable Grinding Machine Operator Family Medicine 04/19/24 Medical Billing Assistant Relationship Specialty Start Date End Date Genie Jackson MD [address] [place] [address] PCP - General Family Medicine 08/27/17 Terrell Cloud APRN.SHOE REPAIR SUPERVISOR [address] [place] [address] Portable Grinding Machine Operator Family Medicine 04/19/24 Medical Billing Assistant Relationship Specialty Start Date End Date Genie Jackson MD [address] [place] [address] PCP - General Family Medicine 08/27/17 Terrell Cloud APRN.SHOE REPAIR SUPERVISOR [address] [place] [address] Portable Grinding Machine Operator Family Medicine 04/19/24 Medical Billing Assistant Relationship Specialty Start Date End Date Genie Jackson MD [address] [place] [address] PCP - General Family Medicine 08/27/17 Terrell Cloud APRN.SHOE REPAIR SUPERVISOR [address] [place] [address] Portable Grinding Machine Operator Family Medicine 04/19/24 Medical Billing Assistant Relationship Specialty Start Date End Date Genie Jackson MD [address] [place] [address] PCP - General Family Medicine 08/27/17 Terrell Cloud APRN.SHOE REPAIR SUPERVISOR [address] [place] [address] Portable Grinding Machine Operator Family Medicine 04/19/24 Team Status: Active Member [...] November 19, 2024 End: November 20, 2024 Medical Billing Assistant Relationship Specialty Start Date End Date Genie Jackson MD [address] [place] [address] PCP - General Family Medicine 08/27/17 Terrell Cloud APRN.SHOE REPAIR SUPERVISOR [address] [place] [address] Portable Grinding Machine Operator Family [facility] 04/19/24 Medical Billing Assistant Relationship Specialty Start Date End Date Genie Jackson MD [address] [place] [address] PCP - General Family Medicine 08/27/17 Terrell Cloud APRN.SHOE REPAIR SUPERVISOR [address] [place] [address] Portable Grinding Machine Operator Family [facility] 04/19/24 Medical Billing Assistant Relationship Specialty Start Date End Date Genie Jackson MD [address] [place] [address] PCP - General Family Medicine 08/27/17 Terrell Cloud APRN.SHOE REPAIR SUPERVISOR [address] [place] [address] Portable Grinding Machine Operator Family Medicine 04/19/24 Team Status: Inactive Member Role/Relationship Status Dates Dr. Genie Jackson MD Primary Care Provider Active Start: December 23, 2024 End: December 23, 2024 Roxana Fry CNM Attending Provider Active Start: December 23, 2024 End: December 23, 2024 Roxana Fry CNM Referring Provider Active Start: December 23, 2024 End: December 23, 2024 Medical Billing Assistant Relationship Specialty Start Date End Date Genie Jackson MD [address] [place] [address] PCP - General Family Medicine 08/27/17 Terrell Cloud APRN.SHOE REPAIR SUPERVISOR [address] [place] [address] Portable Grinding Machine Operator [facility] 04/19/24 Medical Billing Assistant Relationship Specialty Start Date End Date Genie Jackson MD [address] [place] [address] PCP - General Family Medicine 08/27/17 Terrell Cloud APRN.SHOE REPAIR SUPERVISOR [address] [place] [address] Portable Grinding Machine Operator Family Medicine 04/19/24 Medical Billing Assistant Relationship Specialty Start Date End Date Genie Jackson MD [address] [place] [address] PCP - General Family Medicine 08/27/17 Terrell Cloud APRN.SHOE REPAIR SUPERVISOR [address] [place] [address] Portable Grinding Machine Operator Family [facility] 04/19/24 Medical Billing Assistant Relationship Specialty Start Date End Date Genie Jackson MD [address] [place] [address] PCP - General Family Medicine 08/27/17 Terrell Cloud APRN.SHOE REPAIR SUPERVISOR [address] [place] [address] [facility] 04/19/24 Medical Billing Assistant Relationship Specialty Start Date End Date Genie Jackson MD [address] [place] [address] PCP - General Family Medicine 08/27/17 Terrell Cloud APRN.SHOE REPAIR SUPERVISOR [address] [place] [address] [facility] 04/19/24 Medical Billing Assistant Relationship Specialty Start Date End Date Genie Jackson MD [address] [place] [address] PCP - General Family Medicine 08/27/17 Terrell Cloud APRN.SHOE REPAIR SUPERVISOR [address] [place] [address] Portable Grinding Machine Operator Family Medicine 04/19/24 Goals (unrecognized section and [...] BE BASED ON THE PRIMARY CLINICAL RECORDS. [employer] [facility]. provides no warranty or guarantee of the accuracy or completeness of information in this document.
[2025-02-18 06:35] VITALS: BP 116/76; PULSE 87; RESP 18; TEMP 36.8; O2SAT 98
[2025-02-18 07:14] LABS: Hematocrit 32.4 % (37-47); Hemoglobin 10.8 g/dL (12.0-15.0); Immature Granulocytes Count 0.210 X10^3/uL (0.0-0.0); Mean Corp Hgb Conc 33.3 g/dL (32-36); Mean Corpuscular Volume 77.3 fL (81-99); Mean Platelet Vol. 9.2 fl (6.2-12.0); NRBC Flagged by Analyzer 0 % (0-5); Platelet Count 250 K/mm3 (150-450); RBC Distribution Width CV 16.8 % (11.6-14.6); RBC Distribution Width SD 45.8 fl (35.1-43.9); Red Blood Count 4.19 M/mm3 (4.2-5.4); White Blood Count 11.6 K/mm3 (4.4-11.0)
--- NOTE | 2025-02-18 08:18 | NURSING ---
WP VENKATESH Silver at beside administering non-stress test
--- NOTE | 2025-02-18 08:32 | PN.HOSP_ITS ---
Subjective Subjective Shortness of breath and chest pain better than yesterday, still will have a little bit intermittently but significantly improved, no further cough, denies any sudden changes in swelling lower extremities Objective Data Objective Data Vital Signs: Vital Signs Temp Pulse Resp BP Pulse Ox O2 Del Method 98.2 F 87 18 116/76 98 Room Air 02/18/25 06:35 02/18/25 06:35 02/18/25 06:35 02/18/25 06:35 02/18/25 06:35 02/18/25 06:35 Oxygen Delivery Method Room Air Weight: 124.738 kg Body Mass Index (BMI) 47.2 Intake & Output: Intake and Output for Last 24 Hours 02/16/25 02/17/25 02/18/25 23:59 23:59 23:59 Intake Total 19.85 / 19.85 Balance 19.85 / 19.85 Lab / Micro Data 02/18/25 06:58 02/18/25 06:58 Labs: Laboratory Results - last 24 hr 02/17/25 19:10: WBC 13.3 H, RBC 4.58, Hgb 11.7 L, Hct 35.2 L, MCV 76.9 L, MCH 25.5 L, MCHC 33.2, RDW Std Deviation 44.6 H, RDW Coeff of Nawaf 16.6 H, Plt Count 289, MPV 9.1, Immature Gran % (Auto) 0.800, Neut % (Auto) 75.0 H, Lymph % (Auto) 16.9 L, Duchesne % (Auto) 6.1, Eos % (Auto) 0.8, Baso % (Auto) 0.4, Absolute Neuts (auto) 10.0 H, Absolute Lymphs (auto) 2.25, Nucleated RBC % 0, D-Dimer Quant (PE/DVT) 1.82 H*, Sodium 136, Potassium 3.8, Chloride 102, Carbon Dioxide 18.8 L , Anion Gap 15, BUN 8, Creatinine 0.54 L, Estim Creat Clear Calc 202.14, Est GFR (MDRD) Non-Af 129, BUN/Creatinine Ratio 14.6, Glucose 111 H, Calcium 9.5, Troponin T High Sens < 6 02/17/25 21:15: Troponin T Hi Sens 2 Hr < 6 02/17/25 23:20: PT 12.3, INR 0.9, APTT 24.9 02/18/25 06:58: WBC 11.6 H, RBC 4.19 L, Hgb 10.8 L, Hct 32.4 L, MCV 77.3 L, MCH 25.8 L, MCHC 33.3, RDW Std Deviation 45.8 H, RDW Coeff of Nawaf 16.8 H, Plt Count 250, MPV 9.2, Immature Gran % (Auto) 1.800 H, Neut % (Auto) 66.3, Lymph % (Auto) 21.4, Duchesne % (Auto) 8.3, Eos % (Auto) 1.7, Baso % (Auto) 0.5, Absolute Neuts (auto) 7.7, Absolute Lymphs (auto) 2.49, Nucleated RBC % 0 Radiography Diagnostic Testing: Radiology Impression Chest X-Ray 02/17/25 19:18 IMPRESSION: No acute cardiopulmonary disease. Reading Location: [facility] Chest CTA 02/17/25 21:25 IMPRESSION: 1. No central pulmonary embolism. Questionable small pulmonary embolism at the superior lobar artery of the left lung. 2. No focal lung consolidation. Reading Location: [facility] Physical Exam Narrative General: Alert, oriented, no apparent distress HEENT: Atraumatic, normocephalic Eyes: Anicteric, normal conjunctiva, extraocular movements grossly intact Neck: Supple Respiratory: Clear to auscultation bilaterally, normal respiratory effort Cardiovascular: Regular rate and rhythm GI: Soft, nontender, nondistended Extremities: No edema Musculoskeletal: Moving all extremities Neuro: No overt focal neurological deficits Skin: No rashes appreciated Psych: Cooperative Assessment & Plan Assessment/Plan (1) Pulmonary embolus: PLAN: Plan 25 y/o female hx of hypothyroidism, depression and anxiety, GERD and at 37 week gestation who presented to [facility] 02/17/25 for chest pain and SOB. She was found to have a PE on CTA and was admitted to [facility] under OB service with hospitalist consult. #Acute pulmonary embolism -Seen on CTA -No central PE seen with questionable small pulmonary embolism in superior lobar artery of left lung, did not note any RV strain -Troponins normal and presently vitally stable -Was started on heparin drip and has been transitioned to therapeutic Lovenox -Will defer to primary team regarding continued aspirin in addition lo lovenox use given that it is being used in association with her # Third trimester - Management per OB - 37 weeks - Reportedly being monitored for polyhydramnios #GERD -Continue PPI, will increase PPI to twice daily while patient is on full dose anticoagulation #Hypothyroidism -Continue Synthroid #Depression/anxiety -Continue home medications #Tobacco use -Advise cessation -Nicotine gum ordered #Morbid obesity -BMI documented as 47.2 kg/m? at time of admission -Complicates treatment, prognosis, outcomes -Recommend weight loss and lifestyle changes #DVT ppx: Therapeutic Lovenox Марина Walton MD Charges/Coding Visit Charges Inpatient E&M: 46045 Subs Hosp L2
[2025-02-18 09:05] LABS: Anion Gap 14 (5-15); BUN 7 mg/dL (4-19); BUN/Creat Ratio 12.8 RATIO (10-20); Calcium,Total 8.5 mg/dL (7.6-11.0); Carbon Dioxide 19.3 mmol/L (21.0-32.0); Chloride 102 mmol/L (98-108); Estimated Creatinine Clearance 204.34 ml/min (50-250); Glucose 91 mg/dL (70-99); Potassium 4.1 mmol/L (3.3-5.1)
--- NOTE | 2025-02-18 10:10 | CASEMGMT ---
VENKATESH IGLESIAS Assessment: Face to Face with pt for initial transition planning/care coordination assessment. RN HARRIS introduced self and role at [facility], pt voices understanding and consents to assessment. Pt is A&O x4 and answers all questions appropriately at this time. Pt lying in bed, OB nurse in the room; Pt sitting at bedside. Pt agreeable to DC planning assessment. Care providers, pharmacy, and demographics verified/updated. Strata: 3 Admitting Dx: Pulmonary Embolus, third trimester PCP: Renetta Specialists: [facility] Preferred Pharmacy: [facility] Insurance: [employer] Prescription Benefit: yes LNOK: , Deo; Mom, Eileen Living Arrangements: Pt lives with and 3 kids in a 2 story home with no steps to enter. ADLs: Pt states I with ADLs and IADLs at baseline. Transportation: Pt drives self and denies concerns with transportation. DME: Denies HHC/SNF: Denies Hx of. Pt states no concerns with going home at time of dc. 6 clicks = 24. Pt states no further concerns/needs. CM to follow. Advised pt to ask CM if any further question/concerns/needs arise, voices understanding. Pt Goal: Home Plan: Home with family support. Vinay RIDDLE CM
[2025-02-18] MEDS: Prenatal Vits Tablet 1 TABLET PO (10:22)
[2025-02-18 10:55] VITALS: BP 117/88; PULSE 105; RESP 16; TEMP 36.9; O2SAT 98
--- NOTE | 2025-02-18 11:23 | PCM.PN.OB ---
Subjective Subjective presented at 37 weeks with complaint of shortness of breath. Seen in ED and diagnosis of pulmonary embolism. Started on Heparin drip and then transitioned to Lovenox 120mg SQ BID. Review of BP with elevated BP in mild range. Mild headache and admits to visual disturbances at times but not acute related to current event. No RUQ pain. History of preeclampsia. Mild polyhydramnios in . Objective Data Objective Data Vital Signs: Vital Signs Temp Pulse Resp BP Pulse Ox O2 Del Method 98.4 F 105 H 16 117/88 H 98 Room Air 02/18/25 10:55 02/18/25 10:55 02/18/25 10:55 02/18/25 10:55 02/18/25 10:55 02/18/25 10:55 Oxygen Delivery Method Room Air Weight: 275 lb Body Mass Index (BMI) 47.2 Intake & Output: Intake and Output for Last 24 Hours 02/16/25 02/17/25 02/18/25 23:59 23:59 23:59 Intake Total 19.85 / 19.85 Balance 19.85 / 19.85 Lab / Micro Data 02/18/25 06:58 02/18/25 06:58 Labs: Laboratory Results - last 24 hr 02/17/25 19:10: WBC 13.3 H, RBC 4.58, Hgb 11.7 L, Hct 35.2 L, MCV 76.9 L, MCH 25.5 L, MCHC 33.2, RDW Std Deviation 44.6 H, RDW Coeff of Nawaf 16.6 H, Plt Count 289, MPV 9.1, Immature Gran % (Auto) 0.800, Neut % (Auto) 75.0 H, Lymph % (Auto) 16.9 L, Lasalle % (Auto) 6.1, Eos % (Auto) 0.8, Baso % (Auto) 0.4, Absolute Neuts (auto) 10.0 H, Absolute Lymphs (auto) 2.25, Nucleated RBC % 0, D-Dimer Quant (PE/DVT) 1.82 H*, Sodium 136, Potassium 3.8, Chloride 102, Carbon Dioxide 18.8 L, Anion Gap 15, BUN 8, Creatinine 0.54 L, Estim Creat Clear Calc 202.14, Est GFR (MDRD) Non-Af 129, BUN/Creatinine Ratio 14.6, Glucose 111 H, Calcium 9.5, Troponin T High Sens < 6 02/17/25 21:15: Troponin T Hi Sens 2 Hr < 6 02/17/25 23:20: PT 12.3, INR 0.9, APTT 24.9 02/18/25 06:58: WBC 11.6 H, RBC 4.19 L, Hgb 10.8 L, Hct 32.4 L, MCV 77.3 L, MCH 25.8 L, MCHC 33.3, RDW Std Deviation 45.8 H, RDW Coeff of Nawaf 16.8 H, Plt Count 250, MPV 9.2, Immature Gran % (Auto) 1.800 H, Neut % (Auto) 66.3, Lymph % (Auto) 21.4, Lasalle % (Auto) 8.3, Eos % (Auto) 1.7, Baso % (Auto) 0.5, Absolute Neuts (auto) 7.7, Absolute Lymphs (auto) 2.49, Nucleated RBC % 0, Sodium 136, Potassium 4.1, Chloride 102, Carbon Dioxide 19.3 L, Anion Gap 14, BUN 7, Creatinine 0.54 L, Estim Creat Clear Calc 204.34, Est GFR (MDRD) Non-Af 130, BUN/Creatinine Ratio 12.8, Glucose 91, Calcium 8.5 Radiography Diagnostic Testing: Radiology Impression Chest X-Ray 02/17/25 19:18 IMPRESSION: No acute cardiopulmonary disease. Reading Location: [facility] Chest CTA 02/17/25 21:25 IMPRESSION: 1. No central pulmonary embolism. Questionable small pulmonary embolism at the superior lobar artery of the left lung. 2. No focal lung consolidation. Reading Location: [id number] Constitutional Constitutional: Reports systems reviewed and no addt'l complaints, except as documented Eyes Eyes: Denies acute decrease in peripheral vision or blurry vision ENT HEENT: Reports systems reviewed and no addt'l complaints, except as documented Cardiovascular Cardiovascular: Denies chest pain or dizziness Respiratory/Chest Respiratory/Chest: Denies cough, dyspnea, dyspnea on exertion, shortness of breath at rest or shortness of breath with exertion Gastrointestinal Gastrointestinal: Reports nausea; Denies abdominal pain, diarrhea or vomiting Genitourinary Genitourinary: Denies abdominal discomfort Musculoskeletal Musculoskeletal: Denies limited range of motion Integumentary Integumentary: Reports systems reviewed and no addt'l complaints, except as documented Neurologic Neurologic: Reports systems reviewed and no addt'l complaints, except as documented Psychiatric Psychiatric: Reports systems reviewed and no addt'l complaints, except as documented Endocrine Endocrinology: Reports systems reviewed and no addt'l complaints, except as documented Hematologic/Lymphatic Hematologic/Lymphatic: Reports systems reviewed and no addt'l complaints, except as documented Allergic/Immunologic Allergic/Immunologic: Reports systems reviewed and no addt'l complaints, except as documented Physical Exam Const alert and oriented x3 General Appearance: cooperative Orientation / Consciousness: awake, oriented to person, oriented to place and oriented to time Exam Limitations: no limitations HEENT normocephalic Head and Scalp: normal to inspection, normocephalic and atraumatic Face and Sinus: normal facial exam Eyes General Eye: normal appearance of both eyes Neck full ROM Chest Chest: symmetrical chest wall rise Resp normal respiratory effort and normal air movement Auscultation: clear to auscultation bilaterally Cardio regular rate, regular rhythm, S1 normal heart sound, S2 normal heart sound, no murmurs, no rub, no gallops and no clicks GI normal to inspection, nondistended, normoactive bowel sounds and non-tender appearance of the vagina normal Bladder / Kidney Exam: no CVA tenderness Back/Spine normal ROM Extremity normal to inspection and full ROM Skin no rashes or lesions noted Neuro oriented x3 and moves all extremities Sensorium / Orientation: awake, alert and oriented to person Motor Exam: clonus absent Deep Tendon Reflexes: Rt Patellar (L4): 3+ and Lt Patellar (L4): 3+ NST FHR Rate Baby A Baseline: 135 Variability:: Moderate (with minimal ) Accelerations:: 15 x 15 Decelerations:: Variable FHR Category:: Category II Uterine Activity:: Irregular, mild Assessment & Plan (1) Third trimester : (2) Pulmonary embolus: (3) 37 weeks gestation of : (4) Gestational hypertension: COMMENT: @ 37 weeks (5) History of pre-eclampsia: (6) Polyhydramnios: PLAN: MVP 8.9 (7) Obesity: COMMENT: BMI 47 PLAN: Plan 1) Elevated BP with 2 elevated pressures 4 hours apart. BP cuff incorrect size and repeated, currently normal but history of preeclampsia. Headache, visual changes, and brisk reflexes. 2) Periods of minimal variability with variable decels. Placed back on monitor. 3) collaborative physician and managing patient. Updated on above assessment, plan of care, and patient status. She is consulting with MFM on management plan and will be in to assess patient.
--- NOTE | 2025-02-18 12:04 | NURSING ---
Called and requested images be sent to [facility] from radiology
--- NOTE | 2025-02-18 12:39 | PCM.HP.OB ---
HPI - General General Date of Admission: 02/17/25 Date of Service: 02/18/25 HPI Narrative SYED CAIN, is a 25 F who presented to ED with SOB and CP. She was diagnosed with a PE and started on a heparin drip for a brief time. Patient was then given lovenox. Currently she feels well and denies VB/LOF/ctxs. Also she reports good FM. Also she denies headaches, blurry vision or RUQ pain. Maternal Data Information KELLEY Calculator Estimated Delivery Date Method Current WG Current Estimate 03/11/25 Manual 37w 0d PFSH PFSH Medical History Polyhydramnios affecting Colitis IBS (irritable bowel syndrome) GERD (gastroesophageal reflux disease) Hypothyroidism Home Medications ?Medication ?Instructions ?Recorded ?Last Taken ?Type buspirone 15 mg tablet 15 mg PO TID depression 06/30/22 12/23/24 History aspirin 81 mg capsule 162 mg PO QDAY preeclampsia 11/19/24 12/22/24 History esomeprazole magnesium 40 mg 40 mg PO DAILY acid reflux 11/19/24 12/23/24 History capsule,delayed release (Nexium) vit no.95-ferrous 1 tab PO DAILY 11/19/24 12/23/24 History fumarate 28 mg-folic acid 800 mcg tablet () sertraline 50 mg tablet 75 mg PO DAILY anx,depression 11/19/24 12/23/24 History ferrous sulfate 325 mg (65 mg 325 mg PO QODAY 02/17/25 Unknown History iron) tablet (Feosol) levothyroxine 125 mcg tablet 62.5 mcg PO DAILY 02/17/25 Unknown History ondansetron 4 mg disintegrating 4 mg PO Q8H PRN PRN nausea/vomiting 02/17/25 Unknown History tablet Allergy/AdvReac Type Severity Reaction Status Date / Time No Known Allergies Allergy Verified 02/17/25 18:58 Social History Smoking Status: Current every day smoker tobacco type: e-cigarettes History 2 Elective abortions Hx Para 1 Spontaneous abortions Hx # Term Pregnancies Ectopic pregnancies Hx # Pregnancies Multiple births # of living children NST FHR Rate Baby A Baseline: 130 Variability:: Moderate Accelerations:: 15 x 15 Decelerations:: Variable NST Reactive:: Yes Uterine Activity:: quiet Vital Signs Vital Signs Vital Signs: 02/17/25 18:59 02/17/25 19:03 02/17/25 19:30 Temperature 97.6 F L Temperature Source Temporal Pulse Rate 117 H 132 H Respiratory Rate 18 32 H Respiratory Effort Respiratory Depth Respiratory Pattern Blood Pressure 135/90 H 126/85 H Blood Pressure Mean 105 98 Blood Pressure Source Blood Pressure Position Blood Pressure Location Pulse Ox 95 97 Oxygen Delivery Method Room Air Room Air Room Air 02/17/25 19:35 02/17/25 19:40 02/17/25 20:11 Temperature Temperature Source Pulse Rate 120 H Respiratory Rate 26 H Respiratory Effort Short of Breath Short of Breath Respiratory Depth Normal Respiratory Pattern Tachypnea Blood Pressure 117/90 H Blood Pressure Mean 99 Blood Pressure Source Blood Pressure Position Blood Pressure Location Pulse Ox 98 Oxygen Delivery Method Room Air Room Air 02/17/25 21:00 02/17/25 22:00 02/17/25 23:02 Temperature 98.2 F Temperature Source Pulse Rate 104 H 111 H 99 Respiratory Rate 26 H 16 20 H Respiratory Effort Respiratory Depth Respiratory Pattern Blood Pressure 118/77 109/79 141/91 H Blood Pressure Mean 90 89 107 Blood Pressure Source Blood Pressure Position Blood Pressure Location Pulse Ox 96 98 99 Oxygen Delivery Method Room Air 02/18/25 00:00 02/18/25 00:40 02/18/25 00:48 Temperature 98.4 F Temperature Source Oral Pulse Rate 94 90 93 Respiratory Rate 18 20 H Respiratory Effort Respiratory Depth Respiratory Pattern Blood Pressure 114/76 125/91 H Blood Pressure Mean 88 102 Blood Pressure Source Monitor Blood Pressure Position Semi-Fowlers Blood Pressure Location Right Arm Pulse Ox 96 97 Oxygen Delivery Method Room Air Room Air 02/18/25 00:51 02/18/25 06:35 02/18/25 10:55 Temperature 98.2 F 98.4 F Temperature Source Oral Oral Pulse Rate 87 105 H Respiratory Rate 18 16 Respiratory Effort Normal Non-Labored Respiratory Depth Normal Respiratory Pattern Normal Blood Pressure 116/76 117/88 H Blood Pressure Mean 89 97 Blood Pressure Source Monitor Monitor Blood Pressure Position Semi-Fowlers Semi-Fowlers Blood Pressure Location Right Arm Pulse Ox 98 98 Oxygen Delivery Method Room Air Room Air Room Air Weight Weight: 275 lb Body Mass Index (BMI) 47.2 Physical Exam Const alert, oriented x3 and no apparent distress Chest Chest Narrative: per hospitalist Resp Resp Narrative: per hospitalist Cardio Cardio Narrative: per hospitalist GI Inspection: gravid Narrative: deferred Labs Labs Labs: Blood Type A POSITIVE Antibody Screen NEGATIVE Hct, (37-47) 32.4 % L Hgb, (12.0-15.0) 10.8 g/dL L Rubella IgG Antibody 16.4 IU/mL Hep Bs Antigen, (Negative) Negative Hepatitis C Ab (EIA), (0.0-0.9) <0.1 s/co ratio Glucose 1 Hr 50 gm, (70-140) 102 mg/dL Group B Strep DNA, (Negative) Negative Rhogam given: No Assessment & Plan (1) Gestational hypertension: QUALIFIERS: Trimester: third trimester Qualified Code(s): O13.3 - Gestational [-induced] hypertension without significant proteinuria, third trimester COMMENT: @ 37 weeks (2) Obesity: QUALIFIERS: Obesity type: unspecified obesity type Body mass index: BMI 45.0-49.9 Obesity classification: adult class 3 (BMI >= 40) Serious obesity comorbidity presence: unspecified whether serious comorbidity present Qualified Code(s): E66.813 - Obesity, class 3; Z68.42 - Body mass index [BMI] 45.0-49.9, adult COMMENT: BMI 47 (3) Pulmonary embolus: QUALIFIERS: Pulmonary embolism type: unspecified Chronicity: unspecified Acute cor pulmonale presence: unspecified Qualified Code(s): I26.99 - Other pulmonary embolism without acute cor pulmonale PLAN: Plan Patient admitted for management of acute PE & is now on therapeutic lovenox. Overnight patient with mildly elevated blood pressures that meet the criteria for gestational hypertension. Patient discussed with Dr. Layne and will transfer to [facility] for further evaluation. Patient agrees with plan & all questions answered.
--- NOTE | 2025-02-18 13:27 | NURSING ---
Pt was transferred to [facility] via [facility] service. This RN had called provided nurse to nurse number and spoke to Abigail. She had verbalized that she had been briefed on the pt's status by the accepting MD. Abigail was unsure if the pt would be assigned to triage or L+D on arrival so she stated she would have the nurse calling back from appropriate specialty.
== END 2025-02-18 13:15 | disposition short-term general hospital (02) | DRG 566 ==
LOC: ED 23:01 → ICU 02-18 01:21
PROVIDERS: Emergency Medicine; Internal Medicine; Admitting Provider Obstetrics & Gynecology; Emergency Provider Emergency Medicine; PCP Family Medicine; Visit Provider Obstetrics & Gynecology
DX: O88.213 Thromboembolism in pregnancy, third trimester (principal); I26.99 Other pulmonary embolism without acute cor pulmonale; E66.01 Morbid (severe) obesity due to excess calories; E03.9 Hypothyroidism, unspecified; F32.A Depression, unspecified; K21.9 Gastro-esophageal reflux disease without esophagitis; F17.290 Nicotine dependence, other tobacco product, uncomplicated; O13.3 Gestational [pregnancy-induced] hypertension without significant proteinuria, third trimester; O99.613 Diseases of the digestive system complicating pregnancy, third trimester; O40.3XX0 Polyhydramnios, third trimester, not applicable or unspecified; O99.213 Obesity complicating pregnancy, third trimester; O99.283 Endocrine, nutritional and metabolic diseases complicating pregnancy, third trimester; O99.343 Other mental disorders complicating pregnancy, third trimester; O99.333 Smoking (tobacco) complicating pregnancy, third trimester; Z3A.37 37 weeks gestation of pregnancy; Z79.899 Other long term (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 therapy; Z79.82 Long term (current) use of aspirin
CPT/HCPCS: 36415; 59025; 59050; 71046; 71275; 80048; 84484; 85025; 85379; 85610; 85730; 93005; 99285; Q9967; A4216